=== PATIENT | female | born 1955 | race African-American/Black ===

== ENCOUNTER 2016-02-21 22:29 | Inpatient (IN) | payer OTHER ==
[~2016-02-21] VITALS: Ht 157.5 cm; Wt 109.5 kg
[~2016-02-21 22:29] MED LIST: ALBU1AER9 INH; ARFO15NE IN; ASPCH81X PO; AZIT250T5 PO; DICL1GEL28 TOP; FERR325T51 PO; FLNIN/ NAE; FLUT1INH7 PO; FURO-85 PO; HYDR-5688 PO; LOSA1TAB PO; NF656 TOP; OXGN; POTA-74 PO; PRAM1.5T8 PO; PRED10TA PO; TIOTCAP INH; ZOLP10TA PO
[2016-02-21] MEDS ORDERED: ALBUTEROL 0.083% NEBU SOLN 3 ML VIAL INH STA (22:45)
[2016-02-21 23:00] VITALS: PULSE 138; O2SAT 99
[2016-02-21 23:01] VITALS: PULSE 138; O2SAT 99
[2016-02-21] MEDS ORDERED: LEVAQUIN 750MG / 150ML D5W IV STA (23:21)
[2016-02-21] MEDS ORDERED: ALBUT/IPRATROP 3MG/0.5MG NEB 3 ML VIAL INH ONE (23:30)
[2016-02-21 23:44] LABS: BASO % 0.1 %; BASO ABS # 0.01 K/uL (0-0.2); COMPLETE YES; HEMATOCRIT 32.1 % (37-47); IG% 0.5 %; LYMPH % 23.9 %; LYMPH ABS # 2.06 K/uL (1.2-3.4); MEAN CELL VOLUME 90.7 fL (80-100); MEAN CORPUSCULAR HEMOGLOBIN 28.2 pg (25-34); MEAN CORPUSCULAR HGB CONC 31.2 g/dl (32-36); MEAN PLATELET VOLUME 9.1 fL (7.4-10.4); MONO % 15.8 %; NEUT % 59.7 %; PLATELET COUNT 367 K/uL (130-400); RED BLOOD COUNT 3.54 M/uL (4.2-5.4); WHITE BLOOD COUNT 8.62 K/uL (4.8-10.8)
[2016-02-21 23:46] LABS: INR 0.9 (0.9-1.1); PARTIAL THROMBOPLASTIN RATIO 0.9
[2016-02-21 23:55] LABS: ALT/SGPT 38 U/L (12-78); BLOOD UREA NITROGEN 16 mg/dl (7-18); CALCIUM 8.9 mg/dl (8.5-10.1); CARBON DIOXIDE 29 mmol/L (21-32); CHLORIDE 104 mmol/L (98-107); CREATININE 0.94 mg/dl (0.60-1.20); GLUCOSE 121 mg/dl (70-99); MAGNESIUM 2.8 mg/dl (1.8-2.4); POTASSIUM 3.8 mmol/L (3.5-5.1); SODIUM 144 mmol/L (136-145)
[2016-02-21 23:58] VITALS: PULSE 130; O2SAT 100
[2016-02-22] VITALS (26 sets, daily range): BP systolic 105–170; BP diastolic 76–97; PULSE 85–130; TEMP 36.4–36.8; O2SAT 93–100; Ht 157.5 cm; Wt 109.5 kg
[2016-02-22] LABS: ALB/GLOB RATIO 0.9 (0.9-2); ALKALINE PHOSPHATASE 80 U/L (45-117); AST/SGOT 22 U/L (15-37)
[2016-02-22 00:23] LABS: VEN BLD GAS O2 SATURATION 96.5 %; VEN BLOOD GAS BASE EXCESS 4.4 mmol/L; VENOUS BLOOD GAS PCO2 62 mmHg (38.0-50.0); VENOUS BLOOD GAS PO2 100 mmHg
[2016-02-22] MEDS ORDERED: CYCLOBENZAPRINE HCL 5 MG TAB PO SCH (00:30)
--- NOTE | 2016-02-22 01:49 | EMERGENCY ROOM VISIT NOTE ---
History Report prepared by Hiral: Luis Chen Under the Supervision of: Dr. Pedro Welch D.O. First contact with patient: 22:33 Chief Complaint: RESPIRATORY PROBLEMS Stated Complaint: ASTHMA ATTACK History of Present Illness The patient is a 60 year old female who presents to the Emergency Room in respiratory distress. She states that her breathing difficulty began three days ago and has been worsening. The patient was brought to the emergency department via EMS. EMS administered one DuoNeb, 3 Albuterol, 2 grams of Magnesium and 125 SoluMedrol prior to arrival. She has a history of asthma and COPD. She has also been experiencing a cough and runny nose as of lately. She is on 4 liters of oxygen at home. She usually only uses her oxygen while she sleeps, but she has been using it all day over the last three days. Source of History: patient Onset: 3 days [employer]LECT[employer]PECTING [employer] Position: other (Respiratory) Quality: other (Dyspnea ) Timing: worsening Associated Symptoms: + cough Note: Patient complains of runny nose. Review of Systems See HPI for pertinent positives & negatives. A total of 10 systems reviewed and were otherwise negative. Past Medical & Surgical Medical Problems: (1) Asthma (2) Asthma, Unspecified (3) Carpal tunnel syndrome (4) COPD (chronic obstructive pulmonary disease) (5) Depression (6) Diabetes mellitus (7) Esophageal Reflux (8) Hiatal hernia (9) History of cervical cancer (10) Hyperlipidemia (11) Hypertension (12) Intervertebral disc disorder (13) Obstructive Chronic Bronchitis With Acute Bronchitis (14) Osteoarthritis (15) Reflux esophagitis (16) Restless leg syndrome (17) Restless Legs Syndrome (18) Rheumatoid Arthritis (19) Tobacco Use Disorder Family History Diabetes mellitus FH: heart disease FH: lung disease FHx: cancer Hypertension Social History Smoking Status: Former Smoker Alcohol Use: none Drug Use: none Marital Status: single Housing Status: lives alone Occupation Status: disabled Current/Historical Medications Scheduled Amitriptyline HCl (Amitriptyline HCl), 10 MG PO HS Arformoterol Tartrate (Brovana), 15 MCG IN BID Aspirin (Aspirin Chewable), 81 MG PO DAILY Atorvastatin (Lipitor), 10 MG PO QAM Cyanocobalamin (Vitamin B12), 1,000 MCG PO DAILY Ferrous Sulfate (Iron Supplement), 325 MG PO QAM Fluticasone Furoate-Vilanterol (Breo Ellipta 200-25 Mcg/INH), 1 PUFF PO DAILY Gabapentin (Neurontin), 100 MG PO TID Losartan Potassium (Cozaar), 25 MG PO QAM Metformin Hcl (Glucophage), 1,000 MG PO BID Montelukast Sodium (Singulair), 10 MG PO QAM Oxygen (Oxygen), 2 LITERS NA HS Pantoprazole Sodium (Protonix), 40 MG PO QAM Pramipexole Dihydrochloride (Mirapex), 0.5 MG PO BID Ranitidine Hcl (Zantac), 300 MG PO HS Tiotropium [place] (Spiriva Handihaler), 1 CAP INH QAM Scheduled PRN Albuterol (Proair Hfa), 2 PUFF INH Q4H PRN for Wheezing Azithromycin (Zithromax), 1 PKT PO UD PRN for rescue kit Benzonatate (Tessalon Perles), 1-2 CAP PO TID PRN for Cough Cyclobenzaprine Hcl (Flexeril), 10 MG PO BID PRN for Muscle Spasms Fluticasone Propionate (Fluticasone Propionate), 2 SPRAYS LIDYA BID PRN for Nasal Congestion Furosemide (Lasix), 20 MG PO QAM PRN for fluid and wt gain Glimepiride (Amaryl), 0.5 TAB PO QAM PRN for while on prednisone Hydrocodone/Acetaminophen 5MG/325MG ([place] 5MG/325MG), 1 TABLET PO Q8 PRN for Moderate Pain Ipratropium-Albuterol (Duoneb), 1 TREATMENT INH Q4H PRN for SOB/Wheezing Potassium Chloride (Potassium Chloride Er), 1 TAB PO DAILY PRN for with lasix Pramipexole Dihydrochloride (Mirapex Er), 1-2 TABS PO HS PRN for RLS Prednisone (Prednisone), MG PO UD PRN for rescue kit Zolpidem Tartrate (Ambien), 10 MG PO HS PRN for Sleep Allergies Coded Allergies: No Known Allergies (Verified , 02/21/16) Physical Exam Vital Signs Date Time Temp Pulse Resp B/P Pulse Ox O2 Delivery O2 Flow Rate FiO2 02/22/16 00:30 134 19 124/103 100 BiPAP 50 02/21/16 23:58 130 24 100 BiPAP/CPAP 50 02/21/16 23:01 138 24 99 BiPAP/CPAP 50 02/21/16 23:00 138 99 50 02/21/16 22:49 98 CPAP 02/21/16 22:40 98 CPAP 02/21/16 22:39 36.9 137 26 175/102 98 CPAP 02/21/16 22:39 135 Physical Exam GENERAL: Sitting up in bed, significant distress. On C-pap. EYE EXAM: normal conjunctiva OROPHARYNX: no exudate, no erythema, lips, buccal mucosa, and tongue normal and mucous membranes are moist NECK: supple, no nuchal rigidity, no adenopathy, non-tender LUNGS: Minimal air movement with mild wheezing. Accessory muscle movement. HEART: no murmurs, S1 normal and S2 normal ABDOMEN: abdomen soft, non-tender, normo-active bowel sounds, no masses, no rebound or guarding. BACK: Back is symmetrical on inspection and there is no deformity, no midline tenderness, no CVA tenderness. SKIN: no rashes and no bruising UPPER EXTREMITIES: upper extremities are grossly normal. LOWER EXTREMITIES: No pitting edema. NEURO EXAM: Normal sensorium, cranial nerves II-XII intact, normal speech, no gross weakness of arms, no gross weakness of legs. Medical Decision & Procedures ER Provider Diagnostic Interpretation: Xray results per my interpretation: XRAY PORTABLE UPRIGHT ONE VIEW CHEST: No acute infiltrate, no pneumothorax. Laboratory Results 02/21/16 23:26 Red Blood Count 3.54, Mean Corpuscular Volume 90.7, Mean Corpuscular Hemoglobin 28.2, Mean Corpuscular Hemoglobin Concent 31.2, Mean Platelet Volume 9.1, Neutrophils (%) (Auto) 59.7, Lymphocytes (%) (Auto) 23.9, Monocytes (%) (Auto) 15.8, Eosinophils (%) (Auto) 0.0, Basophils (%) (Auto) 0.1, Neutrophils # (Auto ) 5.15, Lymphocytes # (Auto) 2.06, Monocytes # (Auto) 1.36, Eosinophils # (Auto ) 0.00, Basophils # (Auto) 0.01 02/21/16 23:26 Test 02/21/16 23:05 02/21/16 23:26 02/22/16 00:05 Influenza Type A Antigen Neg for Influ A (NEG) Influenza Type B Antigen Neg for Influ B (NEG) White Blood Count 8.62 K/uL (4.8-10.8) Red Blood Count 3.54 M/uL (4.2-5.4) Hemoglobin 10.0 g/dL (12.0-16.0) Hematocrit 32.1 % (37-47) Mean Corpuscular Volume 90.7 fL (80-100) Mean Corpuscular Hemoglobin 28.2 pg (25-34) Mean Corpuscular Hemoglobin Concent 31.2 g/dl (32-36) Platelet Count 367 K/uL (130-400) Mean Platelet Volume 9.1 fL (7.4-10.4) Neutrophils (%) (Auto) 59.7 % Lymphocytes (%) (Auto) 23.9 % Monocytes (%) (Auto) 15.8 % Eosinophils (%) (Auto) 0.0 % Basophils (%) (Auto) 0.1 % Neutrophils # (Auto) 5.15 K/uL (1.4-6.5) Lymphocytes # (Auto) 2.06 K/uL (1.2-3.4) Monocytes # (Auto) 1.36 K/uL (0.11-0.59) Eosinophils # (Auto) 0.00 K/uL (0-0.5) Basophils # (Auto) 0.01 K/uL (0-0.2) RDW Standard Deviation 48.3 fL (36.4-46.3) RDW Coefficient of Variation 14.6 % (11.5-14.5) Immature Granulocyte % (Auto) 0.5 % Immature Granulocyte # (Auto) 0.04 K/uL (0.00-0.02) Prothrombin Time 10.0 SECONDS (9.0-12.0) Prothromb Time International Ratio 0.9 (0.9-1.1) Activated Partial Thromboplast Time 24.1 SECONDS (21.0-31.0) Partial Thromboplastin Ratio 0.9 Anion Gap 11.0 mmol/L (3-11) Est Creatinine Clear Calc Drug Dose 76.6 ml/min Estimated GFR () 75.9 Estimated GFR (Non- 65.5 BUN/Creatinine Ratio 17.0 (10-20) Calcium Level 8.9 mg/dl (8.5-10.1) Magnesium Level 2.8 mg/dl (1.8-2.4) Total Bilirubin < 0.1 mg/dl (0.2-1) Aspartate Amino Transf (AST/SGOT) 22 U/L (15-37) Alanine Aminotransferase (ALT/SGPT) 38 U/L (12-78) Alkaline Phosphatase 80 U/L (45-117) Troponin I < 0.015 ng/ml (0-0.045) Pro-B-Type Natriuretic Peptide 31 pg/ml (0-900) Total Protein 7.1 gm/dl (6.4-8.2) Albumin 3.3 gm/dl (3.4-5.0) Globulin 3.8 gm/dl (2.5-4.0) Albumin/Globulin Ratio 0.9 (0.9-2) Venous Blood pH 7.33 (7.36-7.41) Venous Blood Partial Pressure CO2 62 mmHg (38.0-50.0) Venous Blood Partial Pressure O2 100 mmHg Venous Blood HCO3 32 mmol/L Venous Blood Oxygen Saturation 96.5 % Venous Blood Base Excess 4.4 mmol/L Laboratory results per my review. Medications Administered Medications (Trade) Dose Ordered Sig/Allison Route Start Time Stop Time Status Last Admin Dose Admin Albuterol Sulfate (Ventolin 0.083% 2.5MG/3ML Neb) 10 mg NOW STAT INH 02/21/16 22:45 02/21/16 22:47 DC 02/21/16 22:59 10 MG Levofloxacin (Levaquin / D5w) 750 mg NOW STAT IV 02/21/16 23:21 02/21/16 23:22 DC 02/21/16 23:38 750 MG Albuterol/ Ipratropium (Duoneb) 12 ml ONE ONCE INH 02/21/16 23:30 02/21/16 23:31 DC 02/21/16 23:58 12 ML Cyclobenzaprine HCl (Flexeril Tab) 10 mg NOW PO 02/22/16 00:30 03/23/16 00:29 02/22/16 00:28 10 MG ECG Indication: SOB/dyspnea Rate (beats per minute): 98 Rhythm: normal sinus Findings: other (Normal axis, poor baseline) ED Course ED COURSE: Vital signs were reviewed and showed Tachycardiac vitals The patients medical record was reviewed The above diagnostic studies were performed and reviewed. ED treatments and interventions as stated above. 2234: The patient was evaluated in room C9. A complete history and physical examination was performed. 2245: Ordered Albuterol Sulfate 10 mg INH. 2320: I reevaluated the patient at this time, she is feeling slightly better. 2321: Ordered Levofloxacin 750 mg IV. 2330: Ordered Duoneb 12 mL INH. 2335: I discussed the case with Dr. Chidi GARCIA, he will evaluate the patient for further treatment. 0018: I checked on the patient at this time, she is feeling better. She states that she needs her Flexeril. GI is at bedside. 0030: Ordered Cyclobenzaprine 10 mg PO. []: Upon reevaluation, the patient is [].I discussed my findings with the [ patient] and [] understands and agrees with the treatment plan. Based on the patients age, coexisting illnesses, exam and lab findings the decision to treat as an [inpatient][outpatient] was made. The patient remained stable while under my care. [The patient appeared well at the time of discharge.] [The patient will be evaluated for further management.] Medical Decision Differential diagnoses includes but is not limited to pneumonia, bronchitis, COPD/Asthma exacerbation, pneumothorax, pulmonary embolism, congestive heart failure, acute coronary syndrome Patient is a 60-year-old female that presents the ER via EMS in respiratory distress. She notes that she has had a cough and runny nose and shortness breath that has been worsening over the past 3-4 days. She is a past medical history of asthma and COPD. She has been taking steroids and her inhalers with minimal to no relief. No fevers. Upon presentation EMS she was placed on CPAP and given 1 DuoNeb and 2 albuterol treatments along with 125 of Solu-Medrol and 2 g magnesium. Upon presentation she was still in significant history distress using accessory muscles and unable to talk in full sentences while on CPAP. She was switched to BiPAP. She remained on BiPAP for over 3 hours. Heart rate was in the 130s. Pulse ox was 100% on BiPAP. She is given 2 additional hour long neb treatments. She is also given Levaquin. One hour long treatment was of albuterol the following was a DuoNeb. On reevaluation at 1:45 AM she had significant improvement and was much more relaxed. She was presyncopal Flexeril for cramps. EKG was nondiagnostic. Labs show a chronic anemia. BMP along with LFTs, bilirubin and troponin were unremarkable as well. He needs and was slightly elevated at 2.8. VBG showed a CO2 of 62. Influenza was negative. Patient was admitted to internal medicine for his COPD/asthma exacerbation as a full code. Consults Time Called: 2321 Consulting Physician: Dr. Chidi GARCIA Returned Call: [phone] I discussed the case with Dr. Chidi GARCIA, he will evaluate the patient for further treatment. Impression Primary Impression: COPD exacerbation Additional Impressions: Respiratory failure, Anemia, Asthma exacerbation Critical Care I have personally spent 125 minutes of critical care time in the direct management of this patient. This includes bedside care, interpretation of diagnostic studies, and testing, discussion with consultants, patient, and family members, and other required patient management activities. This 125 minutes is in excess of all separately billable procedures. Scribe Attestation The scribe's documentation has been prepared under my direction and personally reviewed by me in its entirety. I confirm that the note above accurately reflects all work, treatment, procedures, and medical decision making performed by me. Departure Information Dispostion Being Evaluated By Hospitalist Referrals Martina Jay M.D. (PCP) Patient Instructions A Signature Page, My [facility]
[2016-02-22] MEDS ORDERED: ACETAMINOPHEN 325 MG TAB PO PRN (02:15)
[2016-02-22] MEDS ORDERED: ONDANSETRON INJ 2 MG/ML 2 ML VIAL IV PRN (02:15)
[2016-02-22] MEDS ORDERED: FLUTICASONE PROPIONATE NA SPR 16 GM BTL NAE PRN (02:15)
[2016-02-22] MEDS ORDERED: LEVALBUTEROL/IPRATROPIUM NEB INH SCH (02:15)
[2016-02-22] MEDS ORDERED: GLUCOSE 10 TABS/TUBE PO PRN (02:15)
[2016-02-22] MEDS ORDERED: DEXTROSE 50% 50 ML SYR IV PRN (02:15)
[2016-02-22] MEDS ORDERED: GLUCAGON FOR INJ 1 MG VIAL SQ PRN (02:15)
[2016-02-22] MEDS ORDERED: GLUCOSE 40% GEL 15 GM TUBE PO PRN (02:15)
[2016-02-22] MEDS ORDERED: HYDROCODONE/ACETAMOPHEN 5/325MG TAB PO PRN (02:15)
[2016-02-22 02:30] LABS: ALLEN TEST POS (POS); ARTERIAL BLD GAS O2 SATURATION 99.2 % (90-95); ARTERIAL BLOOD GAS HCO3 29 mmol/L (19-24); ARTERIAL BLOOD GAS PO2 176 mm/Hg (80-95); ARTERIAL BLOOD GAS pH 7.36 (7.35-7.45); O2 ADMINISTRATION 40% BIPAP
[2016-02-22] MEDS ORDERED: LEVALBUTEROL/IPRATROPIUM NEB INH PRN (02:30)
[2016-02-22] MEDS ORDERED: PHARMACY GLYCEMIC MGMT CONSULT PRN (02:45)
[2016-02-22] MEDS: LEVALBUTEROL 1.25MG/0.5ML NEB INH SCH ×6 (03:51→23:19)
[2016-02-22] MEDS: IPRATROPIUM BROMIDE NEB SOLN 0.02% 2.5 ML VIAL INH SCH ×6 (03:51→23:19)
[2016-02-22] MEDS ORDERED: LEVALBUTEROL 1.25MG/0.5ML NEB INH PRN (04:00)
[2016-02-22] MEDS ORDERED: IPRATROPIUM BROMIDE NEB SOLN 0.02% 2.5 ML VIAL INH PRN (04:00)
[2016-02-22] MEDS: METHYLPREDNISOLONE IV 60 MG in SYRINGE 0 ML IV SCH ×3 (04:27→19:36)
[2016-02-22] MEDS: CYCLOBENZAPRINE HCL 5 MG TAB PO PRN ×2 (05:24→11:18)
[2016-02-22] MEDS ORDERED: BACLOFEN 10 MG TAB PO ONE (05:30)
[2016-02-22] MEDS ORDERED: PNEUMOCOCCAL ADMINISTRATION CHARGE ONE (06:30)
[2016-02-22] MEDS ORDERED: PNEUMOCOCCAL POLYSACCHARIDES 25 MCG/0.5 ML VIAL/SYR IM. ONE (06:30)
--- NOTE | 2016-02-22 07:41 | DIAGNOSTIC IMAGING REPORT ---
SINGLE VIEW CHEST CLINICAL HISTORY: Dyspnea. FINDINGS: 2 AP, portable, upright chest radiographs are compared to study dated 12/28/2015. Correlation is made with chest CT dated 12/11/2013. The cardiomediastinal silhouette is unremarkable. There is atherosclerotic calcification of the thoracic aorta. The examination is degraded by portable technique and patient rotation. Advanced emphysema and chronic interstitial thickening are similar to previous. No superimposed airspace consolidation or pleural effusion is identified. No pneumothorax is seen. The skeletal structures are osteopenic. The bony thorax is grossly intact. IMPRESSION: Severe emphysema with no acute cardiopulmonary abnormality. Electronically signed by: Navin Fletcher M.D. 02/22/2016 7:39 AM
[2016-02-22] MEDS ORDERED: ARFORMOTEROL TART 15MCG/2ML VIAL INH SCH (08:00)
[2016-02-22 08:15] LABS: INFLUENZA A PCR Neg for Influ A (NEG); INFLUENZA B PCR Neg for Influ B (NEG)
--- NOTE | 2016-02-22 08:33 | History and Physical ---
History & Physical Date & Time of Service: Feb 22, 2016 at 08:24 Chief Complaint: Copd Exacerbation Primary Care Physician: Martina Jay M.D. History of Present Illness Source: patient, clinic records, hospital records 60 year old female with history of COPD< DM, HTN other problems noted below presenting with increasing shortness of breath. Follows with Dr. Jay for Primary Care. Patient was seen on 02/03/16 at PCP office for COPD exacerbation, and prescribed a course of Augmentin and Prednisone, which patient finished. 2 days ago, patient again started to have progressive shortness of breath, productive cough and was prescribed antibiotics and Prednisone, without relief. On the evening of admission, patient's dyspnea progressed, EMS called, placed on Bipap and given Solumedrol, Nebs. At the ER, CXR did not reveal pneumonia. On my exam, patient seen sitting up in bed, BIpap mask on, appears comfortable overall, speaking in sentences with very minimal effort. States she feels improved compared to arrival. No active chest pain, palpitations, dyspnea, dizziness, headache. Past Medical/Surgical History Medical Problems: (1) Asthma Status: Chronic (2) Carpal tunnel syndrome Status: Chronic (3) COPD (chronic obstructive pulmonary disease) Status: Chronic (4) Depression Status: Chronic (5) Diabetes mellitus Status: Chronic (6) Hiatal hernia Status: Chronic (7) History of cervical cancer Permanent Comment: s/p laser Status: Chronic (8) Hyperlipidemia Status: Chronic (9) Hypertension Status: Chronic (10) Intervertebral disc disorder Permanent Comment: C5-C6 Status: Chronic (11) Osteoarthritis Status: Chronic (12) Reflux esophagitis Status: Chronic (13) Restless leg syndrome Status: Chronic Family History Diabetes mellitus FH: heart disease FH: lung disease FHx: cancer Hypertension Social History Smoking Status: Former Smoker Drug Use: none Marital Status: single Housing status: lives with family Occupational Status: disabled Immunizations History of Influenza Vaccine: Yes Influenza Vaccine Date: Nov 27, 2010 History of Tetanus Vaccine?: No History of Pneumococcal: Yes Pneumococcal Date: Mar 16, 2009 History of Hepatitis B Vaccine: No Multi-Drug Resistant Organisms History of MDRO: No Allergies Coded Allergies: No Known Allergies (Verified , 02/21/16) Home Medications Scheduled Amitriptyline HCl (Amitriptyline HCl), 10 MG PO HS Arformoterol Tartrate (Brovana), 15 MCG IN BID Aspirin (Aspirin Chewable), 81 MG PO DAILY Atorvastatin (Lipitor), 10 MG PO QAM Cyanocobalamin (Vitamin B12), 1,000 MCG PO DAILY Ferrous Sulfate (Iron Supplement), 325 MG PO QAM Fluticasone Furoate-Vilanterol (Breo Ellipta 200-25 Mcg/INH), 1 PUFF PO DAILY Gabapentin (Neurontin), 100 MG PO TID Losartan Potassium (Cozaar), 25 MG PO QAM Metformin Hcl (Glucophage), 1,000 MG PO BID Montelukast Sodium (Singulair), 10 MG PO QAM Oxygen (Oxygen), 2 LITERS NA HS Pantoprazole Sodium (Protonix), 40 MG PO QAM Pramipexole Dihydrochloride (Mirapex), 0.5 MG PO BID Ranitidine Hcl (Zantac), 300 MG PO HS Tiotropium [place] (Spiriva Handihaler), 1 CAP INH QAM Scheduled PRN Albuterol (Proair Hfa), 2 PUFF INH Q4H PRN for Wheezing Azithromycin (Zithromax), 1 PKT PO UD PRN for rescue kit Benzonatate (Tessalon Perles), 1-2 CAP PO TID PRN for Cough Cyclobenzaprine Hcl (Flexeril), 10 MG PO BID PRN for Muscle Spasms Fluticasone Propionate (Fluticasone Propionate), 2 SPRAYS LIDYA BID PRN for Nasal Congestion Furosemide (Lasix), 20 MG PO QAM PRN for fluid and wt gain Glimepiride (Amaryl), 0.5 TAB PO QAM PRN for while on prednisone Hydrocodone/Acetaminophen 5MG/325MG ([place] 5MG/325MG), 1 TABLET PO Q8 PRN for Moderate Pain Ipratropium-Albuterol (Duoneb), 1 TREATMENT INH Q4H PRN for SOB/Wheezing Potassium Chloride (Potassium Chloride Er), 1 TAB PO DAILY PRN for with lasix Pramipexole Dihydrochloride (Mirapex Er), 1-2 TABS PO HS PRN for RLS Prednisone (Prednisone), MG PO UD PRN for rescue kit Zolpidem Tartrate (Ambien), 10 MG PO HS PRN for Sleep Review of Systems Constitutional- no fever; no weight loss Eyes- no acute visual changes ENT- no sinus drainage; no pharyngitis Pulmonary-(+) as noted above Cardiac- no chest pain, no palpitations, no orthopnea, no dependent edema GI- no nausea, no vomiting, no diarrhea, no melena, no hematochezia - no dysuria, no hematuria Musculoskeletal- no arthralgias, no myalgias Derm- no rashes, no new skin lesions, no changing skin lesions Hematologic- no unusual bruising, no unusual bleeding Lymphatics- no adenopathy Endocrine- no polyuria or polydipsia; no heat or cold intolerance Neuro- no headaches, no focal neurologic symptoms Psych- no anxiety, no depression Physical Exam Vital Signs Date Time Temp Pulse Resp B/P Pulse Ox O2 Delivery O2 Flow Rate FiO2 02/22/16 07:21 119 18 98 BiPAP/CPAP 40 02/22/16 07:11 119 98 40 02/22/16 07:03 36.5 110 18 142/76 97 BiPAP 02/22/16 03:53 124 98 40 02/22/16 03:52 124 18 98 BiPAP/CPAP 40 02/22/16 03:15 36.4 121 24 170/97 96 CPAP 02/22/16 02:54 130 18 147/107 97 02/22/16 02:30 130 18 147/107 97 BiPAP 40 02/22/16 02:28 129 02/22/16 02:15 130 100 40 02/22/16 00:30 134 19 124/103 100 BiPAP 50 02/21/16 23:58 130 24 100 BiPAP/CPAP 50 02/21/16 23:01 138 24 99 BiPAP/CPAP 50 02/21/16 23:00 138 99 50 02/21/16 22:49 98 CPAP 02/21/16 22:40 98 CPAP 02/21/16 22:39 36.9 137 26 175/102 98 CPAP 02/21/16 22:39 135 General Appearance: WD/WN, no apparent distress Head: normocephalic, atraumatic Eyes: normal inspection, PERRL, EOMI, sclerae normal ENT: normal ENT inspection, hearing grossly normal, pharynx normal Neck: supple, no adenopathy, thyroid normal, no JVD, trachea midline Respiratory/Chest: chest non-tender, no respiratory distress, + wheezing ( bilaterally) Cardiovascular: no JVD, + tachycardia Abdomen/GI: normal bowel sounds, non tender, soft Back: normal inspection, no CVA tenderness Extremities/Musculoskelatal: no calf tenderness, normal range of motion, + swelling (trace lower leg edema) Neurologic/Psych: rn interventional II-XII nml as tested, no motor/sensory deficits, alert, normal mood/affect, normal reflexes, oriented x 3 Skin: normal color, warm/dry, no rash Lymphatic: no adenopathy Diagnostics Laboratory Results Results Past 24 Hours Test 02/21/16 23:05 02/21/16 23:26 02/22/16 00:05 02/22/16 02:23 Range/Units Influenza Type A Antigen Neg for Influ A NEG Influenza Type B Antigen Neg for Influ B NEG White Blood Count 8.62 4.8-10.8 K/uL Red Blood Count 3.54 4.2-5.4 M/uL Hemoglobin 10.0 12.0-16.0 g/dL Hematocrit 32.1 37-47 % Mean Corpuscular Volume 90.7 80-100 fL Mean Corpuscular Hemoglobin 28.2 25-34 pg Mean Corpuscular Hemoglobin Concent 31.2 32-36 g/dl Platelet Count 367 130-400 K/uL Mean Platelet Volume 9.1 7.4-10.4 fL Neutrophils (%) (Auto) 59.7 % Lymphocytes (%) (Auto) 23.9 % Monocytes (%) (Auto) 15.8 % Eosinophils (%) (Auto) 0.0 % Basophils (%) (Auto) 0.1 % Neutrophils # (Auto) 5.15 1.4-6.5 K/uL Lymphocytes # (Auto) 2.06 1.2-3.4 K/uL Monocytes # (Auto) 1.36 0.11-0.59 K/uL Eosinophils # (Auto) 0.00 0-0.5 K/uL Basophils # (Auto) 0.01 0-0.2 K/uL RDW Standard Deviation 48.3 36.4-46.3 fL RDW Coefficient of Variation 14.6 11.5-14.5 % Immature Granulocyte % (Auto) 0.5 % Immature Granulocyte # (Auto) 0.04 0.00-0.02 K/uL Prothrombin Time 10.0 9.0-12.0 SECONDS Prothromb Time International Ratio 0.9 0.9-1.1 Activated Partial Thromboplast Time 24.1 21.0-31.0 SECONDS Partial Thromboplastin Ratio 0.9 Sodium Level 144 136-145 mmol/L Potassium Level 3.8 3.5-5.1 mmol/L Chloride Level 104 98-107 mmol/L Carbon Dioxide Level 29 21-32 mmol/L Anion Gap 11.0 3-11 mmol/L Blood Urea Nitrogen 16 7-18 mg/dl Creatinine 0.94 0.60-1.20 mg/dl Est Creatinine Clear Calc Drug Dose 76.6 ml/min Estimated GFR () 75.9 Estimated GFR (Non- 65.5 BUN/Creatinine Ratio 17.0 10-20 Random Glucose 121 70-99 mg/dl Calcium Level 8.9 8.5-10.1 mg/dl Magnesium Level 2.8 1.8-2.4 mg/dl Total Bilirubin < 0.1 0.2-1 mg/dl Aspartate Amino Transf (AST/SGOT) 22 15-37 U/L Alanine Aminotransferase (ALT/SGPT) 38 12-78 U/L Alkaline Phosphatase 80 45-117 U/L Troponin I < 0.015 0-0.045 ng/ml Pro-B-Type Natriuretic Peptide 31 0-900 pg/ml Total Protein 7.1 6.4-8.2 gm/dl Albumin 3.3 3.4-5.0 gm/dl Globulin 3.8 2.5-4.0 gm/dl Albumin/Globulin Ratio 0.9 0.9-2 Venous Blood pH 7.33 7.36-7.41 Venous Blood Partial Pressure CO2 62 38.0-50.0 mmHg Venous Blood Partial Pressure O2 100 mmHg Venous Blood HCO3 32 mmol/L Venous Blood Oxygen Saturation 96.5 % Venous Blood Base Excess 4.4 mmol/L Arterial Blood pH 7.36 7.35-7.45 Arterial Blood Partial Pressure CO2 53 35-46 mmHg Arterial Blood Partial Pressure O2 176 80-95 mm/Hg Arterial Blood HCO3 29 19-24 mmol/L Arterial Blood Oxygen Saturation 99.2 90-95 % Arterial Blood Base Excess 3.0 -9-1.8 mEq/L Arterial Blood Gas Delivery 40% BIPAP Ziyad Test POS POS Test 02/22/16 06:35 02/22/16 07:38 Range/Units Influenza Type A (RT-PCR) Neg for Influ A NEG Influenza Type B (RT-PCR) Neg for Influ B NEG Bedside Glucose 202 70-90 mg/dl Diagnostic Radiology CXR IMPRESSION: Severe emphysema with no acute cardiopulmonary abnormality. EKG sinus tachycardia Impression Assessment and Plan 60 year old female with history of COPD, DM, HTN other problems noted below presenting with increasing shortness of breath. ACUTE COPD EXACERBATION likely from Acute Bronchitis check Flu PCR Solumedrol, Nebs, Levaquin DM TYPE 2 ISS Pharmacy consulted HYPERTENSION continue Losartan, Aspirin GERD PPI NOCTURNAL HYPOXIA 02 at HS DVT prophylaxis SCDs Disposition pending anticipate d/c home when stable Advanced Directives Existing Advance Directive: Yes Existing Living Will: Yes Existing Power of Full Fashioned Garment Knitter: Yes VTE Prophylaxis VTE Risk Assessment Done? Y/N: Yes Risk Level: Moderate
[2016-02-22] MEDS: ASPIRIN 81 MG ECTAB PO SCH (08:48)
[2016-02-22] MEDS: GABAPENTIN 100 MG CAP PO SCH ×3 (08:48→20:55)
[2016-02-22] MEDS: ATORVASTATIN 10 MG TAB PO SCH (08:48)
[2016-02-22] MEDS: PRAMIPEXOLE DIHYDROCHLORIDE 0.5 MG TAB PO SCH ×3 (08:48→20:55)
[2016-02-22] MEDS: MONTELUKAST SOD 10 MG TAB PO SCH (08:48)
[2016-02-22] MEDS: LOSARTAN POTASSIUM 25 MG TAB PO SCH (08:49)
[2016-02-22] MEDS: PANTOprazole SOD 40 MG TAB PO SCH (08:49)
[2016-02-22] MEDS: INSULIN ASPART 100 UNITS/ML 3 ML PEN SC SCH ×4 (08:52→20:56)
[2016-02-22] MEDS ORDERED: LANTUS PER UNIT CHARGE SQ ONE (09:00)
--- NOTE | 2016-02-22 09:22 | Pharmacy Progress Note ---
Glycemic Control Intl Consult Date of Service Feb 22, 2016. Scope Glycemic Pharmacist consulted by Dr Murillo on 02/22/16 for glycemic control and to write orders per [facility] inpatient glycemic control protocol Objective Weight (Kilograms): 114.400 Accuchecks BSG (last 24hrs): Test 02/21/16 23:26 02/22/16 07:38 Random Glucose 121 mg/dl (70-99) Bedside Glucose 202 mg/dl (70-90) Laboratory Data (last 24hrs) Test 02/21/16 23:26 Anion Gap 11.0 mmol/L BUN/Creatinine Ratio 17.0 Blood Urea Nitrogen 16 mg/dl Creatinine 0.94 mg/dl Potassium Level 3.8 mmol/L Sodium Level 144 mmol/L White Blood Count 8.62 K/uL Red Blood Count 3.54 M/uL Hemoglobin 10.0 g/dL Hematocrit 32.1 % Mean Corpuscular Volume 90.7 fL Mean Corpuscular Hemoglobin 28.2 pg Mean Corpuscular Hemoglobin Concent 31.2 g/dl Platelet Count 367 K/uL Mean Platelet Volume 9.1 fL Neutrophils (%) (Auto) 59.7 % Lymphocytes (%) (Auto) 23.9 % Monocytes (%) (Auto) 15.8 % Eosinophils (%) (Auto) 0.0 % Basophils (%) (Auto) 0.1 % Neutrophils # (Auto) 5.15 K/uL Lymphocytes # (Auto) 2.06 K/uL Monocytes # (Auto) 1.36 K/uL Eosinophils # (Auto) 0.00 K/uL Basophils # (Auto) 0.01 K/uL Recent Pertinent Medications Outpatient Anti-diabetic Regimen: * Glimepiride 0.5mg PO Q AM * Metformin 1000mg PO BID * A1c = 6.9 % 04/02/15 The patient is currently receiving: * Basal insulin: None * Correctional Insulin: Novolog Correction per scale ACHS Goal Range: Low 140 mg/dL - High 180 mg/dL Correction Factor: 25 mg/dL/unit * Prandial insulin: Per carb ratio of 1 unit per 15 grams CHO consumed * Oral Agents: None currently Risk Factors for Insulin Resistance: * Steroids: Solu-Medrol 60mg IV Q 8 hours * Infection: COPD exac failing out-pt Augmentin; receiving Levofloxacin IV * Diet: ordered T2DM / AHA diet * Mechanical Ventilation: No; currently on BIPAP/CPAP w/ FiO2 40% - sat well Assessment & Plan ASSESSMENT: * Type 2 diabetic admitted w/ COPD exacerbation failing treatment w/ outpt abx and prednisone. * She is treated w/ 2 oral hypoglycemics - that are currently on hold; and should remain on hold as she is now receiving high dose IV corticosteroids. Will use SQ basal/bolus regimen to achieve glycemic targets. * She has been admitted in the past and received SQ Novolog (CF + CR) alone to control hyperglycemia while on IV steroids; she was not given basal insulin or her oral hypoglycemics. Her current fasting BSG is 202; so I am inclined to give a single small dose of Lantus this AM and reevaluate basal needs tomorrow AM. Perhaps she is more stressed this admission and may require some basal insulin. * The current Novolog CF and CR are reasonable, however the CR dose could be increased a little. * Most recent A1c is from 03/2015; will check w/ AM labs tomorrow to determine appropriateness of outpt regimen PLAN FOR INPATIENT GLYCEMIC CONTROL: * Check A1c w/ AM labs tomorrow * Holding outpatient oral diabetes medications * Give Lantus 8 units SQ x 1 only; reevaluate basal need tomorrow - she may not require basal insulin based upon prior admissions (even w/ steroids) * Continuing correction factor of 25 mg/dl/unit * Changing carb ratio to 1 unit per 10 grams CHO consumed * Changing goal range to Low 120 mg/dL - High 160 mg/dL * Reevaluate insulin doses with each step down in steroid dose * Please note that the plan above was derived based on current level of insulin resistance and hospital stress. These recommendations are appropriate for inpatient admission only. Plan of care upon discharge will need to be reassessed to avoid potential outpatient hypo/hyperglycemia. Thank you.
--- NOTE | 2016-02-22 11:22 | PULMONARY CONSULTATION ---
DATE OF CONSULTATION: 02/22/2016 This patient is a pleasant 60-year-old female who is followed by Dr. Jay for COPD and is followed by Trista Ireland PA-C for chronic obstructive lung disease as an outpatient. She was admitted through the Emergency Room with what appears to be exacerbation of chronic obstructive lung disease. Dr. Murillo has asked me to evaluate the patient from a pulmonary standpoint. She carries a history of rather severe chronic obstructive lung disease. She has been hospitalized here with respiratory failure in March of this year. At that time, at the time of admission on the 02 of April had blood gases that revealed a pH 7.34, pCO2 of 59, pO2 of 174. She has been actually fairly stable, although she did have an evaluation in the Emergency Room for shortness of breath on May 25 with COPD with exacerbation on the 27 of December. At that time, her chest x-ray actually was fairly stable with some hazy densities, probably related to her body habitus. Blood gas at that time revealed pH 7.36, pCO2 of 49, pO2 of 90. PRP looked good with a CO2 of 30, glucose is 118. TSH was normal at that time. About 2 weeks ago, she was exposed to her sister who had an illness with a cough, runny nose and a sore throat. The patient developed the same and was seen by Dr. Jay, placed on some steroids. She states she got a bit better and then developed worsening shortness of breath with cough which was nonproductive. She presented to the Emergency Room then with respiratory distress and difficulty with breathing for about 3 days with a nonproductive cough. She was unable to go out shopping, had difficulty with even sleeping. She called EMS, they gave her a DuoNeb, 2 grams of magnesium, 125 mg of Solu-Medrol prior to arrival to the Emergency Room. She states she does feel better today. She was placed on BiPAP last night. She wears oxygen at 1-1/2 to 2 liters at home. That is what she told me. According to the records, she may be on 4 liters of oxygen at home. Prior to this illness, she has been able to get out and go shopping and do her chores at home without too much difficulty. She has not had any significant exposures or travel history and environmental histories have been unremarkable. Since her admission, she has been treated with steroids, magnesium, oxygen, BiPAP and DuoNeb and states she feels about 40% better. PAST MEDICAL HISTORY: Significant for chronic obstructive lung disease. It appears that she probably has significant emphysema. She carries a history of obesity, diabetes mellitus, GERD and states that reflux has been under fairly good control with Zantac, although over the last 24 hours she states it is a bit worse. She carries a history of carcinoma of the cervix, hypertension, hyperlipidemia, chronic back pain, restless leg syndrome, rheumatoid arthritis. SOCIAL HISTORY: She started smoking at about age 14, quit 2 years ago. Smoked about a pack every 2 days, which gives her about a [id number] history of cigarette smoking. She is not an alcohol user. She is single, lives alone and is disabled from her disease, particularly the obesity and chronic obstructive lung disease. ALLERGIES: None. FAMILY HISTORY: Unknown. PHYSICAL EXAMINATION: VITAL SIGNS: In the Emergency Room, she had a bit of hypertension as well. Blood pressure 170/97 at 0315 hours today. She is tachycardic with a pulse of 138, respiratory rate was 24, it is now down to 18 on BiPAP, and she is afebrile. Oxygen saturation 98% on 40% FIO2 with BiPAP. Weight is 114.4 kilograms. She was 112 kilograms on April 05 of this year during that hospitalization for respiratory failure as well. HEENT: Unremarkable, except she has a very large tongue, small posterior pharynx with no evidence of thrush. Mandibular exam unremarkable. NECK: There is no neck vein distention or HJR. Thyroid nonpalpable. Carotid upstroke looks good. Expansion of the thorax is very good with deep inspiration. HEART: Regular rate and rhythm. Heart sounds are distant. I do not detect any murmurs. LUNGS: Reveal some coarse breath sounds bilaterally with some wheezing right at the end of expiration, especially worse with forced expiration. ABDOMEN: Soft and massively obese, nontender. She has no cyanosis, clubbing or edema. There is no evidence of DVT. White count 8.6, H\T\H 10 and 32%, with platelet count 367,000 with an unremarkable differential. PRP looked good with a glucose of 121. Liver function studies were normal. Troponin and BNP are unremarkable. Coagulation profile was normal. Influenza A and B were negative. The PCRs are pending. Blood gas revealed pH 7.33, pCO2 of 62, pO2 of 100. Repeat blood gas 2 hours later this morning at 0223 hours revealed pH 7.36, pCO2 of 53, pO2 of 176. The chest x-ray report is pending. The film was very light. The bases show no significant abnormalities. No pneumothorax is noted. There is an increase in vascular markings. I really do not see any infiltrates on just a plain PA film. IMPRESSION: 1. Chronic obstructive lung disease with exacerbation. She has respiratory failure with hypercapnia again. This may be worse with the oxygen administration. As the O2 is increased, she develops worsening shunt and hypercapnia. She is not lethargic from the hypercapnia. That has improved with BiPAP. 2. Massive obesity. 3. Diabetes mellitus. RECOMMENDATIONS: 1. Continue with her present medications. I do not see any evidence of infection. She may not need the Levaquin. That may be able to be discontinued in 24 hours. 2. I would add on Protonix 40 mg daily to the Zantac 300 mg at bedtime to ensure good control of reflux. That is on board now and would continue that as an outpatient. 3. I would continue on the Brovana b.i.d., methylprednisolone 60 mg IV q. 8 hours. Will follow the sugars carefully. Xopenex with ipratropium bromide could be given by nebulizer 4 times a day and then q. 4 hours p.r.n., rather than just p.r.n. I am not sure whether the Singulair is making much of a difference, but we can keep that on board for now since she is not having any trouble with it. I think if she does not improve the Brovana should be discontinued and I would place her on Symbicort 160/4.5 two puffs b.i.d. I would also recommend checking an echocardiogram to assess left and right ventricular functions. Dietary evaluation for weight reduction will be helpful. SCDs and subcutaneous heparin for DVT prophylaxis will be recommended as well. Thanks for asking me to evaluate Ms. Kaminski and I will be glad to follow along with you during her hospital stay.
[2016-02-22] MEDS ORDERED: NURSING VERBAL MED ORDER ONE (13:00)
[2016-02-22] MEDS ORDERED: COUGH DROP (SUGAR FREE) LOZ 24 LOZ/1 BOX ONE (13:07)
[2016-02-22] MEDS ORDERED: COUGH DROP (SUGAR FREE) LOZ 24 LOZ/1 BOX PO PRN (13:30)
[2016-02-22 15:24] LABS: ALLEN TEST POS (POS); ARTERIAL BLD GAS O2 SATURATION 99.3 % (90-95); ARTERIAL BLOOD GAS BASE EXCESS 6.6 mEq/L (-9-1.8); ARTERIAL BLOOD GAS HCO3 32 mmol/L (19-24); ARTERIAL BLOOD GAS PO2 187 mm/Hg (80-95); ARTERIAL BLOOD GAS pH 7.42 (7.35-7.45); O2 ADMINISTRATION 40%
--- NOTE | 2016-02-22 16:20 | Critical Care Consultation ---
Critical Care Consultation Date of Consultation: Feb 22, 2016. Attending Physician: Ector Easton MD Reason for Consultation: Acute respiratory distress History of Present Illness Attending: Dr. Flores This is a 60-year-old female who presents with shortness of breath and history of asthma. Patient was diagnosed with asthma in 1994. PFT results FVC: 2.43/94%, FEV1: 1.33/66%, FEV1/FVC: 68%, FEF 25-75%: 27%. No post GANESH change. Patient also has a history of severe COPD per Gold criteria which was diagnosed in 2012. She has a 0.3 PPD 32 years and states that she quit smoking. She was noted have a pulmonary nodule which was 2 mm and left apex which is stable on CT from 05/2000 in 11/2013. The patient does have nocturnal hypoxemia and is on supplemental oxygen at 2 L/m since 06/20/12. She has undergone allergy skin testing 2013 which was negative. She initially began having allergy exacerbation with asthma 20 years ago after moving here from [facility]. Asthmatic triggers include cold air, heat, humidity, and pollen. She has been admitted several times for asthma exacerbation but never for asthma asthmaticus and has never been endotracheally intubated. She reports that she takes all of her medications as prescribed. Pulmonary consult was placed and the patient was seen by Dr. Younger this morning. The patient currently states that she is extremely short of breath and she does have accessory muscle use. She has no chest pain or tightness. She denies fever but she is diaphoretic. She has no nausea or vomiting. She has had no diarrhea but has had a bowel movement today. Appetite is decreased. She has no pleuritic pain. She has no unusual lower extremity edema. She does have a cough but denies purulence or hemoptysis. She has no difficulty with dysphagia or odynophagia. She does have a history of GERD which is well controlled. Aside from her shortness of breath, wheezes and diaphoresis the patient has no acute complaints at this time. Past Medical/Surgical History PAST MEDICAL HISTORY: Asthma COPD GERD Allergic rhinitis Carpal tunnel syndrome Depressive disorder Diabetes mellitus type 2 Lumbar disc disorder Chronic edema Hyperlipidemia Osteoarthrosis Nocturnal hypoxemia Pulmonary emphysema Restless leg syndrome Seborrheic keratosis History of tobacco abuse Morbid obesity Cataracts PAST SURGICAL HISTORY: Cataract removal with lens prosthesis of the left cornea History of colonoscopy Family History Diabetes mellitus FH: heart disease FH: lung disease FHx: cancer Hypertension Social History Smoking Status: Former Smoker Smokeless Tobacco Use: No Drug Use: none Marital Status: single Housing Status: lives alone Occupation Status: disabled Allergies Coded Allergies: No Known Allergies (Verified , 02/21/16) Home Medications Scheduled Amitriptyline HCl (Amitriptyline HCl), 10 MG PO HS Arformoterol Tartrate (Brovana), 15 MCG IN BID Aspirin (Aspirin Chewable), 81 MG PO DAILY Atorvastatin (Lipitor), 10 MG PO QAM Cyanocobalamin (Vitamin B12), 1,000 MCG PO DAILY Ferrous Sulfate (Iron Supplement), 325 MG PO QAM Fluticasone Furoate-Vilanterol (Breo Ellipta 200-25 Mcg/INH), 1 PUFF PO DAILY Gabapentin (Neurontin), 100 MG PO TID Losartan Potassium (Cozaar), 25 MG PO QAM Metformin Hcl (Glucophage), 1,000 MG PO BID Montelukast Sodium (Singulair), 10 MG PO QAM Oxygen (Oxygen), 2 LITERS NA HS Pantoprazole Sodium (Protonix), 40 MG PO QAM Pramipexole Dihydrochloride (Mirapex), 0.5 MG PO BID Ranitidine Hcl (Zantac), 300 MG PO HS Tiotropium [place] (Spiriva Handihaler), 1 CAP INH QAM Scheduled PRN Albuterol (Proair Hfa), 2 PUFF INH Q4H PRN for Wheezing Azithromycin (Zithromax), 1 PKT PO UD PRN for rescue kit Benzonatate (Tessalon Perles), 1-2 CAP PO TID PRN for Cough Cyclobenzaprine Hcl (Flexeril), 10 MG PO BID PRN for Muscle Spasms Fluticasone Propionate (Fluticasone Propionate), 2 SPRAYS LIDYA BID PRN for Nasal Congestion Furosemide (Lasix), 20 MG PO QAM PRN for fluid and wt gain Glimepiride (Amaryl), 0.5 TAB PO QAM PRN for while on prednisone Hydrocodone/Acetaminophen 5MG/325MG ([place] 5MG/325MG), 1 TABLET PO Q8 PRN for Moderate Pain Ipratropium-Albuterol (Duoneb), 1 TREATMENT INH Q4H PRN for SOB/Wheezing Potassium Chloride (Potassium Chloride Er), 1 TAB PO DAILY PRN for with lasix Pramipexole Dihydrochloride (Mirapex Er), 1-2 TABS PO HS PRN for RLS Prednisone (Prednisone), MG PO UD PRN for rescue kit Zolpidem Tartrate (Ambien), 10 MG PO HS PRN for Sleep Current Inpatient Medications Current Inpatient Medications Medications (Trade) Dose Ordered Sig/Allison Route Start Time Stop Time Status Last Admin Dose Admin Acetaminophen (Tylenol Tab) 650 mg Q4H PRN PO 02/22/16 02:15 03/23/16 02:14 Ondansetron HCl 4 mg 4 mg Q6H PRN IV 02/22/16 02:15 03/23/16 02:14 Methylprednisolone Sodium Succinate 60 mg/Syringe 0.96 ml @ 1.5 mls/min Q8H IV 02/22/16 04:00 03/23/16 03:59 02/22/16 12:05 1.5 MLS/MIN Levofloxacin/Prmx (Levaquin / D5W/ Premixed D5W) 100 ml @ 100 mls/hr Q24H IV 02/22/16 22:00 03/03/16 21:59 Insulin Aspart (novoLOG ASPART) SLIDING SCALE If C... ACHS SC 02/22/16 06:30 03/23/16 06:59 02/22/16 12:10 4 UNITS Glucose (Glucose 40% Gel) 15-30 GRAMS 15 GRAMS... UD PRN PO 02/22/16 02:15 03/23/16 02:14 Glucose (Glucose Chew Tab) 4-8 Tablets 4 Tabl... UD PRN PO 02/22/16 02:15 03/23/16 02:14 Dextrose (Dextrose 50% 50ML Syringe) 25-50ML OF 50% DW IV FOR... UD PRN IV 02/22/16 02:15 03/23/16 02:14 Glucagon (Glucagon Inj) 1 mg UD PRN SQ 02/22/16 02:15 03/23/16 02:14 Miscellaneous Information (Consult Glycemic Management Pharmacy) 1 ea UD PRN N/A 02/22/16 02:45 03/23/16 02:44 Amitriptyline HCl (Elavil Tab) 10 mg HS PO 02/22/16 21:00 03/23/16 20:59 Arformoterol Tartrate (Brovana 15MCG/ 2ML Neb Soln) 15 mcg BIDR INH 02/22/16 08:00 03/23/16 07:59 02/22/16 07:12 15 MCG Aspirin (Ecotrin Tab) 81 mg QAM PO 02/22/16 09:00 03/23/16 08:59 02/22/16 08:48 81 MG Atorvastatin Calcium (Lipitor Tab) 10 mg QAM PO 02/22/16 09:00 03/23/16 08:59 02/22/16 08:48 10 MG Fluticasone Propionate (Flonase Nasal [place]) 2 sprays BID PRN LIDYA 02/22/16 02:15 03/23/16 02:14 Gabapentin (Neurontin Cap) 100 mg TID PO 02/22/16 09:00 03/23/16 08:59 02/22/16 08:48 100 MG Acetaminophen/ Hydrocodone Bitart ([place] 5/325 Tab) 1 tab Q8 PRN PO 02/22/16 02:15 03/07/16 02:14 Losartan Potassium (coZAAR TAB) 25 mg QAM PO 02/22/16 09:00 03/23/16 08:59 02/22/16 08:49 25 MG Montelukast Sodium (Singulair Tab) 10 mg QAM PO 02/22/16 09:00 03/23/16 08:59 02/22/16 08:48 10 MG Pantoprazole Sodium (Protonix Tab) 40 mg QAM PO 02/22/16 09:00 03/23/16 08:59 02/22/16 08:49 40 MG Pramipexole Dihydrochloride (miraPEX TAB) 0.5 mg BID PO 02/22/16 09:00 03/23/16 08:59 Ranitidine HCl (zANTac TAB) 300 mg HS PO 02/22/16 21:00 03/23/16 20:59 Miscellaneous Information (Order Awaiting Action) 1 ea QS N/A 02/22/16 05:30 03/23/16 05:29 Ipratropium [place] (Atrovent 0.02% 0.5MG/2.5ML Neb) 0.5 mg Q4R INH 02/22/16 04:00 03/23/16 03:59 02/22/16 11:14 0.5 MG Levalbuterol (Xopenex 1.25MG/ 0.5ML Neb) 1.25 mg Q4R INH 02/22/16 04:00 03/23/16 03:59 02/22/16 11:14 1.25 MG Ipratropium [place] (Atrovent 0.02% 0.5MG/2.5ML Neb) 0.5 mg Q2H PRN INH 02/22/16 04:00 03/23/16 03:59 02/22/16 14:03 0.5 MG Levalbuterol (Xopenex 1.25MG/ 0.5ML Neb) 1.25 mg Q2H PRN INH 02/22/16 04:00 03/23/16 03:59 02/22/16 14:03 1.25 MG Cyclobenzaprine HCl (Flexeril Tab) 5 mg TID PRN PO 02/22/16 04:45 03/23/16 04:44 02/22/16 11:18 5 MG Insulin Aspart (novoLOG ASPART) SLIDING SCALE If C... TODAY@0200 ONCE SC 02/23/16 02:00 02/23/16 02:01 Menthol (Nice Von) 1 von PRN PRN PO 02/22/16 13:30 03/23/16 13:29 Review of Systems A total of 12 systems was reviewed and is negative other than as listed above in the HPI Physical Exam Date Time Temp Pulse Resp B/P Pulse Ox O2 Delivery O2 Flow Rate FiO2 02/22/16 15:10 36.5 113 18 140/85 100 BiPAP 02/22/16 14:04 108 98 40 02/22/16 14:03 108 18 98 BiPAP/CPAP 40 02/22/16 12:00 98 BiPAP 40 02/22/16 11:15 36.8 106 20 135/87 97 Nasal Cannula 3.0 02/22/16 11:14 121 18 98 Nasal Cannula 2.0 02/22/16 08:00 98 BiPAP 40 02/22/16 07:21 119 18 98 BiPAP/CPAP 40 02/22/16 07:11 119 98 40 02/22/16 07:03 36.5 110 18 142/76 97 BiPAP 02/22/16 03:53 124 98 40 02/22/16 03:52 124 18 98 BiPAP/CPAP 40 02/22/16 03:15 36.4 121 24 170/97 96 CPAP 02/22/16 02:54 130 18 147/107 97 02/22/16 02:30 130 18 147/107 97 BiPAP 40 02/22/16 02:28 129 02/22/16 02:15 130 100 40 02/22/16 00:30 134 19 124/103 100 BiPAP 50 02/21/16 23:58 130 24 100 BiPAP/CPAP 50 02/21/16 23:01 138 24 99 BiPAP/CPAP 50 02/21/16 23:00 138 99 50 02/21/16 22:49 98 CPAP 02/21/16 22:40 98 CPAP 02/21/16 22:39 36.9 137 26 175/102 98 CPAP 02/21/16 22:39 135 GENERAL : Moderate distress with use of accessory muscles EYES: No icterus, gaze conjugate. Right cataract NOSE: No evidence of epistaxis. MOUTH: No lesions or candidiasis. Mucosa moist NECK: Supple. No appreciation of stridor LUNGS: Breath sounds diminished throughout with diffuse bronchospasm HEART: Regular, tachycardic at 114 BPM, no appreciation of murmur ABDOMEN: Soft, NT, ND, BS Present. No rebound tenderness or guarding BACK: Diaphoretic. No CVA tenderness EXTREMITIES: +1 bilateral LE edema, pedal pulses intact NEURO: A&OX3 Laboratory Results Last 24 Hours Test 02/21/16 23:05 02/21/16 23:26 02/22/16 00:05 02/22/16 02:23 Influenza Type A Antigen Neg for Influ A Influenza Type B Antigen Neg for Influ B White Blood Count 8.62 K/uL Red Blood Count 3.54 M/uL Hemoglobin 10.0 g/dL Hematocrit 32.1 % Mean Corpuscular Volume 90.7 fL Mean Corpuscular Hemoglobin 28.2 pg Mean Corpuscular Hemoglobin Concent 31.2 g/dl Platelet Count 367 K/uL Mean Platelet Volume 9.1 fL Neutrophils (%) (Auto) 59.7 % Lymphocytes (%) (Auto) 23.9 % Monocytes (%) (Auto) 15.8 % Eosinophils (%) (Auto) 0.0 % Basophils (%) (Auto) 0.1 % Neutrophils # (Auto) 5.15 K/uL Lymphocytes # (Auto) 2.06 K/uL Monocytes # (Auto) 1.36 K/uL Eosinophils # (Auto) 0.00 K/uL Basophils # (Auto) 0.01 K/uL RDW Standard Deviation 48.3 fL RDW Coefficient of Variation 14.6 % Immature Granulocyte % (Auto) 0.5 % Immature Granulocyte # (Auto) 0.04 K/uL Prothrombin Time 10.0 SECONDS Prothromb Time International Ratio 0.9 Activated Partial Thromboplast Time 24.1 SECONDS Partial Thromboplastin Ratio 0.9 Sodium Level 144 mmol/L Potassium Level 3.8 mmol/L Chloride Level 104 mmol/L Carbon Dioxide Level 29 mmol/L Anion Gap 11.0 mmol/L Blood Urea Nitrogen 16 mg/dl Creatinine 0.94 mg/dl Est Creatinine Clear Calc Drug Dose 76.6 ml/min Estimated GFR () 75.9 Estimated GFR (Non- 65.5 BUN/Creatinine Ratio 17.0 Random Glucose 121 mg/dl Calcium Level 8.9 mg/dl Magnesium Level 2.8 mg/dl Total Bilirubin < 0.1 mg/dl Aspartate Amino Transf (AST/SGOT) 22 U/L Alanine Aminotransferase (ALT/SGPT) 38 U/L Alkaline Phosphatase 80 U/L Troponin I < 0.015 ng/ml Pro-B-Type Natriuretic Peptide 31 pg/ml Total Protein 7.1 gm/dl Albumin 3.3 gm/dl Globulin 3.8 gm/dl Albumin/Globulin Ratio 0.9 Venous Blood pH 7.33 Venous Blood Partial Pressure CO2 62 mmHg Venous Blood Partial Pressure O2 100 mmHg Venous Blood HCO3 32 mmol/L Venous Blood Oxygen Saturation 96.5 % Venous Blood Base Excess 4.4 mmol/L Arterial Blood pH 7.36 Arterial Blood Partial Pressure CO2 53 mmHg Arterial Blood Partial Pressure O2 176 mm/Hg Arterial Blood HCO3 29 mmol/L Arterial Blood Oxygen Saturation 99.2 % Arterial Blood Base Excess 3.0 mEq/L Arterial Blood Gas Delivery 40% BIPAP Ziyad Test POS Test 02/22/16 06:35 02/22/16 07:38 02/22/16 11:31 02/22/16 15:05 Influenza Type A (RT-PCR) Neg for Influ A Influenza Type B (RT-PCR) Neg for Influ B Bedside Glucose 202 mg/dl 196 mg/dl Arterial Blood pH 7.42 Arterial Blood Partial Pressure CO2 51 mmHg Arterial Blood Partial Pressure O2 187 mm/Hg Arterial Blood HCO3 32 mmol/L Arterial Blood Oxygen Saturation 99.3 % Arterial Blood Base Excess 6.6 mEq/L Arterial Blood Gas Delivery 40% Ziyad Test POS Diagnostic Results SINGLE VIEW CHEST CLINICAL HISTORY: Dyspnea. FINDINGS: 2 AP, portable, upright chest radiographs are compared to study dated 12/28/2015. Correlation is made with chest CT dated 12/11/2013. The cardiomediastinal silhouette is unremarkable. There is atherosclerotic calcification of the thoracic aorta. The examination is degraded by portable technique and patient rotation. Advanced emphysema and chronic interstitial thickening are similar to previous. No superimposed airspace consolidation or pleural effusion is identified. No pneumothorax is seen. The skeletal structures are osteopenic. The bony thorax is grossly intact. IMPRESSION: Severe emphysema with no acute cardiopulmonary abnormality. Electronically signed by: Navin Fletcher M.D. 02/22/2016 7:39 AM Assessment & Plan (1) Asthma exacerbation Assessment & Plan: Acute respiratory distress Use of accessory muscles Currently on Brovana BIDR, Xopenex/ipratropium nebulizers, and Singulair Received loading dose of methylprednisolone now on 60 mg IV Q8H Pulmonary consulted and patient was seen by Dr. Younger Currently on BiPAP 02/01 with FiO2 of 50% Current FiO2 to 30%. Concerned was shunt and hyper oxygenation Per Dr. Younger's note we will discontinue Brovana and place her on Symbicort 160/ 4.5 two puffs BID Continue on telemetry (2) COPD exacerbation Assessment & Plan: Previous history of tobacco abuse. Quit several years ago Continue treat for asthma exacerbation with antibiotics, steroids, bronchodilators Severe emphysema on chest x-ray Maintain SPO2 between 88 and 92% Supplemental O2 judiciously as to not hyper oxygenate (3) Diabetes mellitus Assessment & Plan: NovoLog sliding scale insulin Check hemoglobin A1c Continue gabapentin for peripheral neuropathy (4) Reflux esophagitis Assessment & Plan: Continue ranitidine Will add PPI secondary to acute exacerbation of asthma and cough (5) Depression Assessment & Plan: Continue amitriptyline No flat affect. Patient seems appropriate for her condition (6) Hypertension Assessment & Plan: Continue to monitor on telemetry secondary to acute exacerbation of asthma Tachycardic with a heart rate 114 with acute respiratory distress Continue losartan Echocardiogram pending Normal sinus rhythm on telemetry (7) Restless leg syndrome Assessment & Plan: Cyclobenzaprine IV ACCESS Peripheral access in place No indication for central line at this time. DVT PROPHYLAXIS Consider chemical prophylaxis Consider SCDs CCT: 0 minutes. Level V inpatient consult Thank you for including us in the care of this patient. Please refer to Dr. Rosario addendum for further recommendations. Crutch Maker Attending: I personally interviewed and examined this patient. She tells me she started to feel like she was getting ill 5 days ago. She called her PCP and was prescribed Prednisone and an antibiotic but she felt worse and ended up in the ED on [place]. She denies chest pain and feels her SOB is a little better than earlier today. Pertinent data, meds, radiographs have been reviewed. The assessment and plan is well documented above. I will add an hour long xopenex nebulizer treatment now that she's in the ICU and watch for worsening tachycardia. She is at risk for requiring intubation but seems to be holding her own for the time being. Consider F/U abg.
[2016-02-22] MEDS ORDERED: PANTOprazole SOD 40 MG TAB PO ONE (16:44)
--- NOTE | 2016-02-22 17:31 | Progress Note ---
Internal Med Progress Note Date of Service: Feb 22, 2016. Provider Documentation: SUBJECTIVE: required bipap last night improved and was on nasal canula today morning again suddenly became sob and was tachypneic was placed back on bipap-improving has cough afebrile denies chest pain no nausea OBJECTIVE: Vital Signs-as noted below Exam: General-alert and awake and oriented ENT-normal hearing Neck-no neck masses Lungs-cta b/l , tachypneic b/l rhonchi Heart-s1 and s2 heard irregular, no murmurs Abdomen-soft bowel sounds present non tender no distension Extremities-no edema present no erythema Neuro-alert and awake moves extremities Lab data as noted below. ASSESSMENT & PLAN: 60 year old female with history of COPD, Asthma DM, HTN other problems noted below presenting with increasing shortness of breath. Copd/Asthma exacerbation initially required bipap and improved and back on bipap now accessory muscle use and diaphoretic multiple admissions in the past on nebs q 4hrs and prn, iv steroids and Levaquin Brovana changed to Symbicort per pulmonary recommendations transferred to ICU for close monitoring appreciate critcal care and pulmonary input fio2 decreased to 30% by critical care for concern of shunt and hyperoxygenation goal to keep o2 sats 88-92% close monitor DM holding glimepiride and metformin on iss will closely monitor while on steroids Depression continue home meds GERD Zantac add ppi Restless leg syndrome on Requip HTN on losartan. will monitor DVT PROPHYLAXIS scds. Lovenox DISPOSITION close monitor in icu for now Vital Signs: Date Time Temp Pulse Resp B/P Pulse Ox O2 Delivery O2 Flow Rate FiO2 02/22/16 16:00 98 BiPAP 30 02/22/16 15:15 117 32 100 BiPAP/CPAP 40 02/22/16 15:10 36.5 113 18 140/85 100 BiPAP 02/22/16 14:04 108 98 40 02/22/16 14:03 108 18 98 BiPAP/CPAP 40 02/22/16 12:00 98 BiPAP 40 02/22/16 11:15 36.8 106 20 135/87 97 Nasal Cannula 3.0 02/22/16 11:14 121 18 98 Nasal Cannula 2.0 02/22/16 08:00 98 BiPAP 40 02/22/16 07:21 119 18 98 BiPAP/CPAP 40 02/22/16 07:11 119 98 40 02/22/16 07:03 36.5 110 18 142/76 97 BiPAP 02/22/16 03:53 124 98 40 02/22/16 03:52 124 18 98 BiPAP/CPAP 40 02/22/16 03:15 36.4 121 24 170/97 96 CPAP 02/22/16 02:54 130 18 147/107 97 02/22/16 02:30 130 18 147/107 97 BiPAP 40 02/22/16 02:28 129 02/22/16 02:15 130 100 40 02/22/16 00:30 134 19 124/103 100 BiPAP 50 02/21/16 23:58 130 24 100 BiPAP/CPAP 50 02/21/16 23:01 138 24 99 BiPAP/CPAP 50 02/21/16 23:00 138 99 50 02/21/16 22:49 98 CPAP 02/21/16 22:40 98 CPAP 02/21/16 22:39 36.9 137 26 175/102 98 CPAP 02/21/16 22:39 135 Lab Results: Results Past 24 Hours Test 02/21/16 23:05 02/21/16 23:26 02/22/16 00:05 02/22/16 02:23 Range/Units Influenza Type A Antigen Neg for Influ A NEG Influenza Type B Antigen Neg for Influ B NEG White Blood Count 8.62 4.8-10.8 K/uL Red Blood Count 3.54 4.2-5.4 M/uL Hemoglobin 10.0 12.0-16.0 g/dL Hematocrit 32.1 37-47 % Mean Corpuscular Volume 90.7 80-100 fL Mean Corpuscular Hemoglobin 28.2 25-34 pg Mean Corpuscular Hemoglobin Concent 31.2 32-36 g/dl Platelet Count 367 130-400 K/uL Mean Platelet Volume 9.1 7.4-10.4 fL Neutrophils (%) (Auto) 59.7 % Lymphocytes (%) (Auto) 23.9 % Monocytes (%) (Auto) 15.8 % Eosinophils (%) (Auto) 0.0 % Basophils (%) (Auto) 0.1 % Neutrophils # (Auto) 5.15 1.4-6.5 K/uL Lymphocytes # (Auto) 2.06 1.2-3.4 K/uL Monocytes # (Auto) 1.36 0.11-0.59 K/uL Eosinophils # (Auto) 0.00 0-0.5 K/uL Basophils # (Auto) 0.01 0-0.2 K/uL RDW Standard Deviation 48.3 36.4-46.3 fL RDW Coefficient of Variation 14.6 11.5-14.5 % Immature Granulocyte % (Auto) 0.5 % Immature Granulocyte # (Auto) 0.04 0.00-0.02 K/uL Prothrombin Time 10.0 9.0-12.0 SECONDS Prothromb Time International Ratio 0.9 0.9-1.1 Activated Partial Thromboplast Time 24.1 21.0-31.0 SECONDS Partial Thromboplastin Ratio 0.9 Sodium Level 144 136-145 mmol/L Potassium Level 3.8 3.5-5.1 mmol/L Chloride Level 104 98-107 mmol/L Carbon Dioxide Level 29 21-32 mmol/L Anion Gap 11.0 3-11 mmol/L Blood Urea Nitrogen 16 7-18 mg/dl Creatinine 0.94 0.60-1.20 mg/dl Est Creatinine Clear Calc Drug Dose 76.6 ml/min Estimated GFR () 75.9 Estimated GFR (Non- 65.5 BUN/Creatinine Ratio 17.0 10-20 Random Glucose 121 70-99 mg/dl Calcium Level 8.9 8.5-10.1 mg/dl Magnesium Level 2.8 1.8-2.4 mg/dl Total Bilirubin < 0.1 0.2-1 mg/dl Aspartate Amino Transf (AST/SGOT) 22 15-37 U/L Alanine Aminotransferase (ALT/SGPT) 38 12-78 U/L Alkaline Phosphatase 80 45-117 U/L Troponin I < 0.015 0-0.045 ng/ml Pro-B-Type Natriuretic Peptide 31 0-900 pg/ml Total Protein 7.1 6.4-8.2 gm/dl Albumin 3.3 3.4-5.0 gm/dl Globulin 3.8 2.5-4.0 gm/dl Albumin/Globulin Ratio 0.9 0.9-2 Venous Blood pH 7.33 7.36-7.41 Venous Blood Partial Pressure CO2 62 38.0-50.0 mmHg Venous Blood Partial Pressure O2 100 mmHg Venous Blood HCO3 32 mmol/L Venous Blood Oxygen Saturation 96.5 % Venous Blood Base Excess 4.4 mmol/L Arterial Blood pH 7.36 7.35-7.45 Arterial Blood Partial Pressure CO2 53 35-46 mmHg Arterial Blood Partial Pressure O2 176 80-95 mm/Hg Arterial Blood HCO3 29 19-24 mmol/L Arterial Blood Oxygen Saturation 99.2 90-95 % Arterial Blood Base Excess 3.0 -9-1.8 mEq/L Arterial Blood Gas Delivery 40% BIPAP Ziyad Test POS POS Test 02/22/16 06:35 02/22/16 07:38 02/22/16 11:31 02/22/16 15:05 Range/Units Influenza Type A (RT-PCR) Neg for Influ A NEG Influenza Type B (RT-PCR) Neg for Influ B NEG Bedside Glucose 202 196 70-90 mg/dl Arterial Blood pH 7.42 7.35-7.45 Arterial Blood Partial Pressure CO2 51 35-46 mmHg Arterial Blood Partial Pressure O2 187 80-95 mm/Hg Arterial Blood HCO3 32 19-24 mmol/L Arterial Blood Oxygen Saturation 99.3 90-95 % Arterial Blood Base Excess 6.6 -9-1.8 mEq/L Arterial Blood Gas Delivery 40% Ziyad Test POS POS Test 02/22/16 16:14 Range/Units Bedside Glucose 143 70-90 mg/dl
[2016-02-22] MEDS ORDERED: LEVALBUTEROL 1.25MG/0.5ML NEB INH STA (18:10)
[2016-02-22] MEDS: AMITRIPTYLINE HCL 10 MG TAB PO SCH (20:55)
[2016-02-22] MEDS: RANITIDINE HCL 150 MG TAB PO SCH (20:55)
[2016-02-22] MEDS ORDERED: LORAZEPAM 0.5 MG TAB PO ONE (22:00)
[2016-02-22] MEDS: LEVOFLOXACIN / D5W 500 MG in PREMIXED IN D5W 100 ML IV SCH (22:20)
[2016-02-22] MEDS: BUDESONIDE/FORMOTEROL FUMARATE 160/4.5 60 PUFFS/INHALER INH SCH (23:10)
[2016-02-22] MEDS ORDERED: BENZONATATE 100MG CAP PO PRN (23:15)
[2016-02-23] VITALS (27 sets, daily range): BP systolic 98–158; BP diastolic 74–104; PULSE 96–120; TEMP 36.5–36.8; O2SAT 91–100
[2016-02-23] MEDS ORDERED: INSULIN ASPART 100 UNITS/ML 3 ML PEN SC ONE (02:00)
[2016-02-23] MEDS: IPRATROPIUM BROMIDE NEB SOLN 0.02% 2.5 ML VIAL INH SCH ×6 (03:50→23:40)
[2016-02-23] MEDS: LEVALBUTEROL 1.25MG/0.5ML NEB INH SCH ×6 (03:50→23:40)
[2016-02-23] MEDS: METHYLPREDNISOLONE IV 60 MG in SYRINGE 0 ML IV SCH ×3 (04:07→19:22)
[2016-02-23 06:07] LABS: COMPLETE YES; HEMATOCRIT 30.6 % (37-47); IG% 0.4 %; LYMPH % 20.3 %; LYMPH ABS # 1.08 K/uL (1.2-3.4); MEAN CELL VOLUME 90.5 fL (80-100); MEAN CORPUSCULAR HEMOGLOBIN 27.8 pg (25-34); MEAN CORPUSCULAR HGB CONC 30.7 g/dl (32-36); NEUT % 64.3 %; PLATELET COUNT 344 K/uL (130-400); RED BLOOD COUNT 3.38 M/uL (4.2-5.4); WHITE BLOOD COUNT 5.32 K/uL (4.8-10.8)
[2016-02-23 06:34] LABS: BUN/CREATININE RATIO 25.1 (10-20); CALCIUM 8.9 mg/dl (8.5-10.1); CREATININE 0.85 mg/dl (0.60-1.20); MAGNESIUM 2.7 mg/dl (1.8-2.4)
[2016-02-23 06:35] LABS: PHOSPHORUS 3.2 mg/dl (2.5-4.9)
--- NOTE | 2016-02-23 07:41 | DIAGNOSTIC IMAGING REPORT ---
CHEST ONE VIEW PORTABLE CLINICAL HISTORY: asthma, hypoxia COMPARISON STUDY: 02/21/2016 FINDINGS: The heart is at the upper limits of normal in size. There is no focal pulmonary consolidation. There is no failure. There are no significant pleural effusions. There are minor basilar atelectatic changes.[ IMPRESSION: No active disease in the chest. Electronically signed by: Byron Sauceda M.D. 02/23/2016 7:39 AM
[2016-02-23] MEDS: ATORVASTATIN 10 MG TAB PO SCH (07:43)
[2016-02-23] MEDS: PANTOprazole SOD 40 MG TAB PO SCH (07:43)
[2016-02-23] MEDS: ASPIRIN 81 MG ECTAB PO SCH (07:43)
[2016-02-23] MEDS: LOSARTAN POTASSIUM 25 MG TAB PO SCH (07:43)
[2016-02-23] MEDS: PRAMIPEXOLE DIHYDROCHLORIDE 0.5 MG TAB PO SCH ×2 (07:43→20:34)
[2016-02-23] MEDS: GABAPENTIN 100 MG CAP PO SCH ×3 (07:43→20:33)
[2016-02-23] MEDS: BUDESONIDE/FORMOTEROL FUMARATE 160/4.5 60 PUFFS/INHALER INH SCH ×2 (07:44→20:33)
[2016-02-23] MEDS: MONTELUKAST SOD 10 MG TAB PO SCH (07:44)
[2016-02-23] MEDS: INSULIN ASPART 100 UNITS/ML 3 ML PEN SC SCH ×4 (07:49→20:34)
[2016-02-23 07:57] LABS: ESTIMATED AVERAGE GLUCOSE 146 mg/dl; HA1C FLAG Normal (Normal)
--- NOTE | 2016-02-23 07:59 | PROGRESS NOTE ---
DATE: 02/23/2016 SUBJECTIVE: The patient was transferred down to the intensive care unit with respiratory insufficiency and hypercapnia. She is comfortable this morning, eating breakfast with oxygen in place. She was treated with BiPAP. She states occasionally this will happen to her at home as well. She denies significant sputum production, has not had any aspiration. She is comfortable at the present time. Her oxygen saturation is 97% on BiPAP, blood pressure 155/104. When I reviewed her previous records, she did have an echocardiogram that revealed well preserved right ventricular function and left ventricular function with no significant valvular abnormalities. That was done in the spring of this year. PHYSICAL EXAMINATION: GENERAL: I\T\O is 220 and 350 out. Weight 116 kilograms. HEENT: Posterior pharynx shows no thrush. She has a large tongue and a small posterior pharyngeal opening. No adenopathy is noted. HEART: Regular rate and rhythm. No murmurs are heard. Heart sounds are distant. Rate is 110 beats per minute. LUNGS: Reveal some wheezing bilaterally with coarse breath sounds at the left base. No fremitus is noted. There is no dullness to percussion. No subcutaneous emphysema is noted. ABDOMEN: Soft and massively obese. EXTREMITIES: She has no cyanosis, clubbing or edema. LABORATORY DATA: White count is 5.32, hematocrit 31%, platelet count 344,000. PRP shows CO2 of 34, was 29 on the 25th, this. BUN is 21, magnesium is 2.7. Chest x-ray today, report is pending. No pneumothorax is noted. I do not see any infiltrates. Heart size appears to be normal. The pulmonary arteries are normal. IMPRESSION: 1. Chronic obstructive lung disease with exacerbation. I believe, most of this probably is emphysema. She has a bronchospastic component to it as well hence the wheezing and hypercapnia. She has responded fairly well to treatment so far, especially BiPAP. 2. Obesity. RECOMMENDATIONS: 1. Continue on her present medications. Again, I think the Tessalon Perles could be discontinued. I think the Levaquin probably could be discontinued in 24 hours if there is no evidence of infection. Antireflux regimen will be recommended. We started the Symbicort and I think she could use DuoNeb or Atrovent with Xopenex q. 4 hours while awake and q. 4 hours p.r.n. I think the methylprednisolone 60 mg IV q. 8 hours would be enough unless she continues to wheeze. I believe the addition of Singulair 10 mg daily, which she is on now is helpful as well. If she would continue to have problems with wheezing, I would obtain a CT scan of the thorax as a CT angiogram to rule out pulmonary emboli as the cause. I would keep her oxygen delivery down as low as we can in order to prevent worsening shunt. Overall, she is stable.
[2016-02-23] MEDS: ENOXAPARIN 40 MG/0.4 ML SYR SQ SCH (08:05)
[2016-02-23] MEDS ORDERED: PANTOprazole SOD 40 MG TAB PO SCH (09:00)
[2016-02-23] MEDS ORDERED: PERFLUTREN LIPID MICROSPHERE (DEFINITY) IV ONE (09:01)
--- NOTE | 2016-02-23 11:34 | Pharmacy Progress Note ---
Glycemic Control: Progress Nt Date of Service Feb 23, 2016. Scope Glycemic Pharmacist consulted by Dr Murillo on 02/22/16 for glycemic control and to write orders per [facility] inpatient glycemic control protocol. Objective Accuchecks BSG (last 24hrs): Test 02/22/16 11:31 02/22/16 16:14 02/22/16 20:54 02/23/16 01:52 Bedside Glucose 196 mg/dl (70-90) 143 mg/dl (70-90) 196 mg/dl (70-90) 185 mg/dl (70-90) Test 02/23/16 05:40 Random Glucose 147 mg/dl (70-99) Laboratory Data (last 24hrs) Test 02/23/16 05:32 02/23/16 05:40 Hemoglobin A1c 6.7 % White Blood Count 5.32 K/uL Red Blood Count 3.38 M/uL Hemoglobin 9.4 g/dL Hematocrit 30.6 % Mean Corpuscular Volume 90.5 fL Mean Corpuscular Hemoglobin 27.8 pg Mean Corpuscular Hemoglobin Concent 30.7 g/dl Platelet Count 344 K/uL Mean Platelet Volume 9.0 fL Neutrophils (%) (Auto) 64.3 % Lymphocytes (%) (Auto) 20.3 % Monocytes (%) (Auto) 15.0 % Eosinophils (%) (Auto) 0.0 % Basophils (%) (Auto) 0.0 % Neutrophils # (Auto) 3.42 K/uL Lymphocytes # (Auto) 1.08 K/uL Monocytes # (Auto) 0.80 K/uL Eosinophils # (Auto) 0.00 K/uL Basophils # (Auto) 0.00 K/uL Anion Gap 6.0 mmol/L BUN/Creatinine Ratio 25.1 Blood Urea Nitrogen 21 mg/dl Creatinine 0.85 mg/dl Potassium Level 4.0 mmol/L Sodium Level 143 mmol/L HbA1c: Test 02/23/16 05:32 Hemoglobin A1c 6.7 % (4.5-5.6) H Recent Pertinent Medications Outpatient Anti-diabetic Regimen: * Glimepiride 0.5mg PO Q AM * Metformin 1000mg PO BID * A1c = 6.7 % on 02/23/16 The patient is currently receiving: * Basal insulin: Lantus 8 units SC x1 02/21 AM * Correctional Insulin: Novolog Correction per scale ACHS Goal Range: Low 120 mg/dL - High 160 mg/dL Correction Factor: 25 mg/dL/unit * Prandial insulin: Per carb ratio of 1 unit per 10 grams CHO consumed * Oral Agents: None currently Risk Factors for Insulin Resistance: * Steroids: Solu-Medrol 60mg IV Q 8 hours * Infection: COPD exac failing out-pt Augmentin; receiving Levofloxacin IV * Diet: ordered T2DM / AHA diet * Mechanical Ventilation: No, transitioned from BiPAP to nasal canula Assessment & Plan ASSESSMENT: * ADA & AACE recommend a goal blood sugar range 140-180 mg/dl for the majority of critically ill & non-critically ill patients. However, more stringent targets may be selected in individual cases. 02/22/16 * Type 2 diabetic admitted w/ COPD exacerbation failing treatment w/ outpt abx and prednisone. * She is treated w/ 2 oral hypoglycemics - that are currently on hold; and should remain on hold as she is now receiving high dose IV corticosteroids. Will use SQ basal/bolus regimen to achieve glycemic targets. * She has been admitted in the past and received SQ Novolog (CF + CR) alone to control hyperglycemia while on IV steroids; she was not given basal insulin or her oral hypoglycemics. Her current fasting BSG is 202; so I am inclined to give a single small dose of Lantus this AM and reevaluate basal needs tomorrow AM. Perhaps she is more stressed this admission and may require some basal insulin. * The current Novolog CF and CR are reasonable, however the CR dose could be increased a little. * Most recent A1c is from 03/2015; will check w/ AM labs tomorrow to determine appropriateness of outpt regimen 02/23/16 * Patient transferred to ICU for respiratory insufficiency * Received total of 27 units of insulin yesterday with BSG's ranging 143-196 over the last 24 hours * Will give additional one-time dose of Lantus today while pt acutely ill in ICU - may be able to transition to Novolog SQ (CR + CR) alone tomorrow (see above) * Will increase goal to 140-180 mg/dL for ICU status PLAN FOR INPATIENT GLYCEMIC CONTROL: * Holding outpatient oral diabetes medications * Continue Basal insulin with LANTUS 8 units SQ x1 dose * Correctional Insulin with NOVOLOG per scale ACHS or Q6hrs while NPO * Increase Goal Range: Low 140 mg/dL - High 180 mg/dL * Correction Factor: 25 mg/dL/unit * Nutritional / Prandial insulin per carb ratio of 1 unit per 10 grams CHO consumed * Please note that the plan above was derived based on current level of insulin resistance and hospital stress. These recommendations are appropriate for inpatient admission only. Plan of care upon discharge will need to be reassessed to avoid potential outpatient hypo/hyperglycemia. Thank you.
[2016-02-23] MEDS ORDERED: LANTUS PER UNIT CHARGE SQ ONE (12:00)
--- NOTE | 2016-02-23 14:50 | ECHOCARDIOGRAM REPORT ---
*NOTICE TO RECEIVING CONSTITUTION PARTY AGENCY This information is strictly Confidential and protected under [place] law. [place] law prohibits you from making any further disclosure of this information unless further disclosure is expressly permitted by the written consent of the person to whom it pertains or is authorized by law. A general authorization for the release of medical or other information is not sufficient for this purpose. Hospital accepts no responsibility if the information is made available to any other person, INCLUDING THE PATIENT. Interpretation Summary * Name: PETRA POWERS Study Date: 02/23/2016 09:56 AM BP: 155/104 mmHg * Patient Location: .MSICU\[id number]\E105\S\1 HR: 107 * : 1955 (M/d/yyyy) Gender: Female Height: 62 in * Age: 60 yrs Ethnicity: AA Weight: 252 lb * Ordering Physician: Ector Easton * Referring Physician: Self, Referred * Performed By: Jana Karimi RDCS * * Reason For Study: CHF * BSA: 2.1 m2 * History: CHF * COPD, WHEEZING VERY BADLY, COULDN'T HOLD BREATH, DIFFICULT IMAGES * -- Conclusions -- * The study was technically difficult. * The study was technically limited. * The left ventricle is normal in size. * The left ventricle is hyperdynamic. * No regional wall motion abnormalities noted. * Ejection Fraction = >70 %. * No hemodynamically significant valvular aortic stenosis. * There is no mitral valve stenosis. * There is no pericardial effusion. Procedure Details * A contrast injection of Definity was performed to improve assessment of LV function. * Contrast was injected into an intravenous site in the left arm. * One vial of Definity ultrasound contrast was diluted in normal saline to a total volume of 10 ml. A total of '2' ml of solution was administered during imaging. * Lot # [id number] of Definity utilized for procedure. * Expiration date 1 AUG 13. * The attending nurse who injected the contrast agent was OPAL FELIPE RN. * The study was technically difficult. * The study was technically limited. Left Ventricle * The left ventricle is normal in size. * There is normal left ventricular wall thickness. * Ejection Fraction = >70 %. * The left ventricle is hyperdynamic. * No regional wall motion abnormalities noted. Right Ventricle * The right ventricle is grossly normal size. Atria * The left atrial size is normal. * Right atrial size is normal. Mitral Valve * The mitral valve is not well visualized. * There is no mitral valve stenosis. Tricuspid Valve * The tricuspid valve is not well visualized. Aortic Valve * The aortic valve is not well visualized. * No hemodynamically significant valvular aortic stenosis. Pulmonic Valve * The pulmonic valve is not well visualized. Great Vessels * The aortic root is normal size. Pericardium/Pleural * There is no pericardial effusion. MMode 2D Measurements and Calculations IVSd 1.0 cm IVSs 1.6 cm LVIDd 4.2 cm LVIDs 2.6 cm LVPWd 1.5 cm LVPWs 2.0 cm IVS/LVPW 0.68 FS 38.3 % EDV(Teich) 76.6 ml ESV(Teich) 23.8 ml EF(Teich) 69.0 % EDV(cubed) 71.7 ml ESV(cubed) 16.9 ml EF(cubed) 76.5 % % IVS thick 59.3 % % LVPW thick 35.0 % LV mass(C)d 189.1 grams LV mass(C)dI 89.6 grams/m\S\2 LV mass(C)s 187.2 grams LV mass(C)sI 88.8 grams/m\S\2 SV(Teich) 52.8 ml SI(Teich) 25.0 ml/m\S\2 SV(cubed) 54.8 ml SI(cubed) 26.0 ml/m\S\2 Ao root diam 2.3 cm Ao root area 4.2 cm\S\2 LA dimension 2.9 cm LA/Ao 1.2 LVAd ap4 28.6 cm\S\2 LVLd ap4 8.7 cm EDV(MOD-sp4) 78.9 ml EDV(sp4-el) 80.0 ml LVAs ap4 14.9 cm\S\2 LVLs ap4 6.9 cm ESV(MOD-sp4) 27.5 ml ESV(sp4-el) 27.5 ml EF(MOD-sp4) 65.1 % EF(sp4-el) 65.6 % LVAd ap2 37.4 cm\S\2 LVLd ap2 9.0 cm EDV(MOD-sp2) 129.5 ml EDV(sp2-el) 132.2 ml LVAs ap2 16.5 cm\S\2 LVLs ap2 6.8 cm ESV(MOD-sp2) 32.2 ml ESV(sp2-el) 34.0 ml EF(MOD-sp2) 75.2 % EF(sp2-el) 74.3 % LVLd %diff 3.6 % EDV(MOD-bp) 103.5 ml LVLs %diff -1.10 % ESV(MOD-bp) 29.1 ml EF(MOD-bp) 71.9 % SV(MOD-sp4) 51.4 ml SI(MOD-sp4) 24.4 ml/m\S\2 SV(MOD-sp2) 97.4 ml SI(MOD-sp2) 46.1 ml/m\S\2 SV(MOD-bp) 74.4 ml SI(MOD-bp) 35.3 ml/m\S\2 SV(sp4-el) 52.4 ml SI(sp4-el) 24.8 ml/m\S\2 SV(sp2-el) 98.2 ml SI(sp2-el) 46.6 ml/m\S\2 Doppler Measurements and Calculations Ao V2 max 203.6 cm/sec Ao max PG 16.6 mmHg Ao max PG (full) 11.3 mmHg LV V1 max PG 5.3 mmHg LV V1 max 114.9 cm/sec
[2016-02-23] MEDS ORDERED: MoRPHine SULFATE 2 MG/ML CARP ONE (16:10)
[2016-02-23 16:16] LABS: IPAP 10; ISTAT ALLEN TEST Pass; ISTAT ARTERIAL BLOOD GAS HCO3 32 meq/L (19-24); ISTAT ARTERIAL BLOOD GAS PCO2 56 mmHg (35-46); ISTAT ARTERIAL BLOOD GAS PO2 98 mmHg (80-95); ISTAT ARTERIAL BLOOD GAS pH 7.37 (7.35-7.45); ISTAT CARBON DIOXIDE 34 mEq/l (24-31); ISTAT DELIVERY SYSTEM BIPAP; ISTAT FIO2 30 %; ISTAT RATE 22; ISTAT SITE R Radial
[2016-02-23] MEDS ORDERED: NURSING VERBAL MED ORDER ONE (16:45)
--- NOTE | 2016-02-23 17:43 | CRITICAL CARE PROGRESS NOTE ---
DATE: 02/23/2016 SUBJECTIVE: The patient was transferred to the intensive care unit yesterday secondary to increased work of breathing. She had been doing well this morning and was out of bed, walking to the commode with assistance. At least an hour after that she started to become more short of breath and she was placed back on her BiPAP. She is wheezing and is presently receiving 3 consecutive Xopenex treatments. She reports she feels anxious presently. Earlier today she looked very calm and much more comfortable than yesterday. She is being seen by the pulmonary service as well and many thanks to Dr. Younger for his assistance in her care. Her care was discussed in detail on multidisciplinary rounds today. She is not coughing up any sputum. She is having bowel movements. PHYSICAL EXAMINATION: VITAL SIGNS: Maximum temperature is 36.7, heart rate 99-122, respiratory rate 18-30, blood pressure 140-150/90s-100s, oxygen saturation 97% on BiPAP 10/05, 30% oxygen. 24-hour fluid balance positive 120 mL. When she is not on the BiPAP, she is on 5 liters nasal cannula. GENERAL: She is sitting upright in a chair and is slightly diaphoretic. LUNGS: She has expiratory wheezes anteriorly. She is not moving much air when I listen posteriorly. HEART: Tachycardic and regular. ABDOMEN: Deferred due to her seated position. EXTREMITIES: Without any significant edema. NEUROLOGIC: She is awake, able to speak in full sentences, although she is tachypneic. LABORATORY DATA: White blood cell count 5.32, hemoglobin 9.4, hematocrit 30.6, platelets 344. Sodium 143, potassium 4, chloride 103, CO2 of 34, BUN 21, creatinine 0.85. Arterial blood gas is pending. Portable chest x-ray from this morning was reviewed and shows no active disease in the chest. MEDICATIONS AND INFUSIONS: Tylenol, [place], Elavil, aspirin, Lipitor, Tessalon Perles, Symbicort, Flexeril, Lovenox, gabapentin, Flonase, insulin sliding scale, Atrovent, Xopenex, Levaquin day 2, Cozaar, menthol lozenges, Solu-Medrol, Singulair, Zofran, Protonix, Mirapex, Zantac. IMPRESSION: 1. Acute on chronic hypercapnic respiratory failure secondary to acute chronic obstructive pulmonary disease exacerbation. She is being seen by the pulmonary service and was placed on Symbicort yesterday. She continues on intravenous steroids as well as bronchodilators. She may have an element of anxiety associated with her shortness of breath. I am reluctant; however, to give her Ativan. 2. Diabetes mellitus with satisfactory blood sugars on insulin sliding scale. 3. History of reflux esophagitis. 4. Hypertension. This may be partially to some anxiety. I do not think she is in pain. She is on losartan. 5. History of depression. PLAN: 1. Consider increasing her IV steroids. 2. Follow up ABG results. 3. I have ordered lower extremity Dopplers to rule out DVT. 4. I am reluctant to send her to CT scan, particularly since she is quite short of breath at the present time, although improving. 5. Continue proton pump inhibitor. 6. Continue DVT prophylaxis with subcutaneous heparin. 7. Continue her pulmonary regimen of medications. 8. I will try 1 mg dose of morphine to see if it helps her to relax. The Ativan she had last night made her drowsy throughout the night and this morning. Critical care time 40 minutes.
--- NOTE | 2016-02-23 18:00 | DIAGNOSTIC IMAGING REPORT ---
BILATERAL LOWER EXTREMITY VENOUS DOPPLER HISTORY: Lower extremity edema, hypoxia COMPARISON STUDY: None. FINDINGS: There is normal compressibility, flow, and augmentation within the bilateral lower extremity deep venous systems. There is a 9.2 x 5.2 cm fluid collection seen within the deep subcutaneous fat. IMPRESSION: No DVT within the right or left lower extremity. A 9.2 x 5.2 cm deep subcutaneous fluid collection. This could represent a hematoma. Electronically signed by: Francesco Rowe M.D. 02/23/2016 5:58 PM
[2016-02-23] MEDS: CYCLOBENZAPRINE HCL 5 MG TAB PO PRN (19:22)
[2016-02-23] MEDS ORDERED: DICLOFENAC SOD 1% GEL 100 GM TUBE EXT PRN (20:15)
[2016-02-23] MEDS: RANITIDINE HCL 150 MG TAB PO SCH (20:33)
[2016-02-23] MEDS: AMITRIPTYLINE HCL 10 MG TAB PO SCH (20:34)
[2016-02-23] MEDS: LEVOFLOXACIN / D5W 500 MG in PREMIXED IN D5W 100 ML IV SCH (21:38)
--- NOTE | 2016-02-23 21:50 | Progress Note ---
Medicine Progress Note Date & Time of Visit: Feb 23, 2016 at 20:32. Subjective 60 yo F admitted for COPD exacerbation, currently in the ICU -pt feels that her breathing is improved since BIPAP this afternoon along with a dose of morphine for anxiety Objective Last 8 Hrs Date Time Temp Pulse Resp B/P Pulse Ox O2 Delivery O2 Flow Rate FiO2 02/23/16 20:00 97 BiPAP 30 02/23/16 18:00 117 24 158/98 97 BiPAP 30 02/23/16 17:55 120 100 40 02/23/16 16:00 96 BiPAP 5.0 30 02/23/16 16:00 36.6 120 30 156/96 98 BiPAP 30 02/23/16 15:50 158/96 02/23/16 15:50 106 100 40 02/23/16 15:20 103 24 100 BiPAP/CPAP 02/23/16 14:40 113 28 98 BiPAP/CPAP 02/23/16 14:00 111 23 147/94 99 BiPAP 30 Physical Exam: GEN: WNWD, in no acute distress, alert and appropriate, nasal canula in place HEENT: NC/AT, PERRL, normal sclerae CARDIO: reg rate, S1/2 heard without m/g/r LUNGS: inspiratory and expiratory wheezing throughout all lung pool and poor air movement ABD: soft, non-tender, non-distended, no rebound or guarding EXTREMITY: RP and DP palpable 2+ bilat, no LE swelling or edema, extremities are warm and well-perfused NEURO: CN 2-12 grossly intact, sensation intact throughout MUSC: 5/5 strength throughout, no gross focal deficits SKIN: warm and dry Laboratory Results: Last 24 Hours Test 02/22/16 20:54 02/23/16 01:52 02/23/16 05:32 02/23/16 05:40 Bedside Glucose 196 mg/dl 185 mg/dl White Blood Count 5.32 K/uL Red Blood Count 3.38 M/uL Hemoglobin 9.4 g/dL Hematocrit 30.6 % Mean Corpuscular Volume 90.5 fL Mean Corpuscular Hemoglobin 27.8 pg Mean Corpuscular Hemoglobin Concent 30.7 g/dl Platelet Count 344 K/uL Mean Platelet Volume 9.0 fL Neutrophils (%) (Auto) 64.3 % Lymphocytes (%) (Auto) 20.3 % Monocytes (%) (Auto) 15.0 % Eosinophils (%) (Auto) 0.0 % Basophils (%) (Auto) 0.0 % Neutrophils # (Auto) 3.42 K/uL Lymphocytes # (Auto) 1.08 K/uL Monocytes # (Auto) 0.80 K/uL Eosinophils # (Auto) 0.00 K/uL Basophils # (Auto) 0.00 K/uL RDW Standard Deviation 49.3 fL RDW Coefficient of Variation 14.8 % Immature Granulocyte % (Auto) 0.4 % Immature Granulocyte # (Auto) 0.02 K/uL Estimated Average Glucose 146 mg/dl Hemoglobin A1c 6.7 % Sodium Level 143 mmol/L Potassium Level 4.0 mmol/L Chloride Level 103 mmol/L Carbon Dioxide Level 34 mmol/L Anion Gap 6.0 mmol/L Blood Urea Nitrogen 21 mg/dl Creatinine 0.85 mg/dl Est Creatinine Clear Calc Drug Dose 83.9 ml/min Estimated GFR () 85.7 Estimated GFR (Non- 74.0 BUN/Creatinine Ratio 25.1 Random Glucose 147 mg/dl Calcium Level 8.9 mg/dl Phosphorus Level 3.2 mg/dl Magnesium Level 2.7 mg/dl Test 02/23/16 06:26 02/23/16 10:51 02/23/16 15:27 02/23/16 16:03 Bedside Glucose 147 mg/dl 197 mg/dl 126 mg/dl Blood Gas Sample Site R Radial Bedside Blood Gas pH (LAB) 7.37 Bedside Blood Gas pCO2 (LAB) 56 mmHg Bedside Blood Gas pO2 (LAB) 98 mmHg Bedside Blood Gas HCO3 (LAB) 32 meq/L Bedside Blood Gas Total CO2 34 mEq/l Bedside Blood Gas Base Excess (LAB) 7.0 meq/L Bedside Blood Gas O2 Saturation 97.0 % Ziyad Test Pass Oxygen Delivery Device BIPAP Bedside Oxygen Rate (breaths/min) 22 Bedside FiO2 30 % Blood Gas IPAP 10 Date/Time Source Procedure Growth Status 02/22/16 23:04 Nasal MRSA DNA Surveillance Screen - Final Specimen Negative for MRSA by DNA Probe Complete Assessment & Plan Transferred to ICU yesterday 2/2 increased work of breathing. Was ambulatory this morning and then became SOB acutely, and was placed back on her BIPAP and given some morphine for presumed anxiety with good result. Seeing her now at 8pm and she is off her BIPAP and on nasal canula, which she uses at night regularly at home. 1. Acute on chronic hypercapnic respiratory failure2/2 COPD exacerbation. Management per pulm and ICU team. Cont Symbicort, IV steroids and nebs. 2. DMII-at goal, cont ISS. Holding glimepiride and metformin while inpatient 3. GERD-cont PPI 4. HTN-controlled on losartan 5. Depression DVT proph-Heparin DO Michaela Kelsey Hospitalist Consultants: Pulm, ICU Current Inpatient Medications: Current Inpatient Medications Medications (Trade) Dose Ordered Sig/[place] Route Start Time Stop Time Status Last Admin Dose Admin Acetaminophen (Tylenol Tab) 650 mg Q4H PRN PO 02/22/16 02:15 03/23/16 02:14 Ondansetron HCl 4 mg 4 mg Q6H PRN IV 02/22/16 02:15 03/23/16 02:14 Methylprednisolone Sodium Succinate 60 mg/Syringe 0.96 ml @ 1.5 mls/min Q8H IV 02/22/16 04:00 03/23/16 03:59 02/23/16 19:22 1.5 MLS/MIN Levofloxacin/Prmx (Levaquin / D5W/ Premixed D5W) 100 ml @ 100 mls/hr Q24H IV 02/22/16 22:00 03/03/16 21:59 02/22/16 22:20 100 MLS/HR Insulin Aspart (novoLOG ASPART) SLIDING SCALE If C... ACHS SC 02/22/16 06:30 03/23/16 06:59 02/23/16 12:29 7 UNITS Glucose (Glucose 40% Gel) 15-30 GRAMS 15 GRAMS... UD PRN PO 02/22/16 02:15 03/23/16 02:14 Glucose (Glucose Chew Tab) 4-8 Tablets 4 Tabl... UD PRN PO 02/22/16 02:15 03/23/16 02:14 Dextrose (Dextrose 50% 50ML Syringe) 25-50ML OF 50% DW IV FOR... UD PRN IV 02/22/16 02:15 03/23/16 02:14 Glucagon (Glucagon Inj) 1 mg UD PRN SQ 02/22/16 02:15 03/23/16 02:14 Miscellaneous Information (Consult Glycemic Management Pharmacy) 1 ea UD PRN N/A 02/22/16 02:45 03/23/16 02:44 Amitriptyline HCl (Elavil Tab) 10 mg HS PO 02/22/16 21:00 03/23/16 20:59 02/22/16 20:55 10 MG Aspirin (Ecotrin Tab) 81 mg QAM PO 02/22/16 09:00 03/23/16 08:59 02/23/16 07:43 81 MG Atorvastatin Calcium (Lipitor Tab) 10 mg QAM PO 02/22/16 09:00 03/23/16 08:59 02/23/16 07:43 10 MG Fluticasone Propionate (Flonase Nasal [place]) 2 sprays BID PRN LIDYA 02/22/16 02:15 03/23/16 02:14 Gabapentin (Neurontin Cap) 100 mg TID PO 02/22/16 09:00 03/23/16 08:59 02/23/16 14:05 100 MG Acetaminophen/ Hydrocodone Bitart ([place] 5/325 Tab) 1 tab Q8 PRN PO 02/22/16 02:15 03/07/16 02:14 Losartan Potassium (coZAAR TAB) 25 mg QAM PO 02/22/16 09:00 03/23/16 08:59 02/23/16 07:43 25 MG Montelukast Sodium (Singulair Tab) 10 mg QAM PO 02/22/16 09:00 03/23/16 08:59 02/23/16 07:44 10 MG Pantoprazole Sodium (Protonix Tab) 40 mg QAM PO 02/22/16 09:00 03/23/16 08:59 02/23/16 07:43 40 MG Pramipexole Dihydrochloride (miraPEX TAB) 0.5 mg BID PO 02/22/16 09:00 03/23/16 08:59 02/23/16 07:43 0.5 MG Ranitidine HCl (zANTac TAB) 300 mg HS PO 02/22/16 21:00 03/23/16 20:59 02/22/16 20:55 300 MG Miscellaneous Information (Order Awaiting Action) 1 ea QS N/A 02/22/16 05:30 03/23/16 05:29 Ipratropium [place] (Atrovent 0.02% 0.5MG/2.5ML Neb) 0.5 mg Q4R INH 02/22/16 04:00 03/23/16 03:59 02/23/16 14:40 0.5 MG Levalbuterol (Xopenex 1.25MG/ 0.5ML Neb) 1.25 mg Q4R INH 02/22/16 04:00 03/23/16 03:59 02/23/16 14:40 1.25 MG Ipratropium [place] (Atrovent 0.02% 0.5MG/2.5ML Neb) 0.5 mg Q2H PRN INH 02/22/16 04:00 03/23/16 03:59 02/22/16 14:03 0.5 MG Levalbuterol (Xopenex 1.25MG/ 0.5ML Neb) 1.25 mg Q2H PRN INH 02/22/16 04:00 03/23/16 03:59 02/22/16 14:03 1.25 MG Cyclobenzaprine HCl (Flexeril Tab) 5 mg TID PRN PO 02/22/16 04:45 03/23/16 04:44 02/23/16 19:22 5 MG Menthol ([place]) 1 von PRN PRN PO 02/22/16 13:30 03/23/16 13:29 Budesonide/ Formoterol Fumarate (Symbicort 160/ 4.5 Inh) 2 puffs BID INH 02/22/16 21:00 03/23/16 20:59 02/23/16 07:44 2 PUFFS Enoxaparin Sodium (Lovenox Inj) 40 mg QAM SQ 02/23/16 09:00 03/24/16 08:59 02/23/16 08:05 40 MG Benzonatate (Tessalon Perles Cap) 100 mg TID PRN PO 02/22/16 23:15 03/23/16 23:14 02/23/16 07:44 100 MG Diclofenac Sodium (Voltaren 1% Top Gel) 1 appln BID PRN EXT 02/23/16 20:15 03/24/16 20:14 UNV
[2016-02-24] VITALS (38 sets, daily range): BP systolic 114–174; BP diastolic 73–125; PULSE 96–149; TEMP 36.5–37; O2SAT 94–100
[2016-02-24] MEDS: METHYLPREDNISOLONE IV 60 MG in SYRINGE 0 ML IV SCH ×2 (03:21→13:29)
[2016-02-24] MEDS: LEVALBUTEROL 1.25MG/0.5ML NEB INH SCH ×5 (04:00→20:00)
[2016-02-24] MEDS: IPRATROPIUM BROMIDE NEB SOLN 0.02% 2.5 ML VIAL INH SCH ×5 (04:00→20:00)
[2016-02-24 06:26] LABS: COMPLETE YES; HEMATOCRIT 30.9 % (37-47); IG% 0.5 %; LYMPH % 13.8 %; MEAN CELL VOLUME 90.1 fL (80-100); MEAN CORPUSCULAR HEMOGLOBIN 27.7 pg (25-34); MEAN CORPUSCULAR HGB CONC 30.7 g/dl (32-36); NEUT % 75.7 %; PLATELET COUNT 350 K/uL (130-400); RED BLOOD COUNT 3.43 M/uL (4.2-5.4)
[2016-02-24 07:12] LABS: BUN/CREATININE RATIO 30.5 (10-20); CALCIUM 8.9 mg/dl (8.5-10.1); CREATININE 0.85 mg/dl (0.60-1.20); MAGNESIUM 2.8 mg/dl (1.8-2.4); POTASSIUM 4.2 mmol/L (3.5-5.1)
--- NOTE | 2016-02-24 07:47 | DIAGNOSTIC IMAGING REPORT ---
SINGLE VIEW CHEST CLINICAL HISTORY: COPD. FINDINGS: An AP, portable, upright chest radiograph is compared to study dated 02/23/2016 and correlated with chest CT dated 12/11/2013. The examination is degraded by portable technique, apical lordotic positioning, and patient rotation. The heart is top normal for projection. The pulmonary vasculature is noncongested. There is atherosclerotic calcification of the thoracic aorta. Advanced emphysema and chronic interstitial thickening is similar to previous. The lungs and pleural spaces are clear. No pneumothorax is seen. The skeletal structures are osteopenic. The bony thorax is grossly intact. IMPRESSION: Advanced emphysema with no acute cardiopulmonary abnormality. There has been no significant change from yesterday. Electronically signed by: Navin Fletcher M.D. 02/24/2016 7:46 AM
[2016-02-24] MEDS: INSULIN ASPART 100 UNITS/ML 3 ML PEN SC SCH (09:36)
[2016-02-24] MEDS: BUDESONIDE/FORMOTEROL FUMARATE 160/4.5 60 PUFFS/INHALER INH SCH ×2 (10:11→20:22)
[2016-02-24] MEDS: LOSARTAN POTASSIUM 25 MG TAB PO SCH (11:38)
[2016-02-24] MEDS: ASPIRIN 81 MG ECTAB PO SCH (11:39)
[2016-02-24] MEDS: PRAMIPEXOLE DIHYDROCHLORIDE 0.5 MG TAB PO SCH ×2 (11:39→21:18)
[2016-02-24] MEDS: GABAPENTIN 100 MG CAP PO SCH ×3 (11:39→21:19)
[2016-02-24] MEDS: ATORVASTATIN 10 MG TAB PO SCH (11:39)
[2016-02-24] MEDS: MONTELUKAST SOD 10 MG TAB PO SCH (11:39)
[2016-02-24] MEDS: PANTOprazole SOD 40 MG TAB PO SCH (11:39)
--- NOTE | 2016-02-24 11:39 | Psychiatric Consultation ---
Consultation Identifying Data 60 y/o female with no psychiatric history who is admitted for COPD and respiratory failure. Psychiatry was consulted for anxiety. Chief Complaint "I get scared when I can't get my breath". History of Present Illness The patient was admitted 02/20 with respiratory distress and has been transferred to the ICU for ongoing SOB. Pulmonology is seeing her and added a PPI for reflux, IV steroids, Symbicort and bronchodilators. She continues to have episodes of SOB, and has been given morphine IV, which she says was helpful. She denies any history of mental illness, and says she is prescribed amitriptyline for headache prophylaxis, not depression. She denies all symptoms of depression, TALIA, panic, and PTSD. She states she only feels anxious when she can't catch her breath, and typically is able to "have someone talk me through it," but when it is severe, she feels fearful. She says the morphine she got helped. She denies SI, HI and psychotic symptoms. Past Psychiatric History Current OP Treatment: no current treatment Prior OP Treatment: no prior treatment No history of psychiatric diagnosis, treatment, suicide attempts, or hospitalizations. No history of psychotropic mediations. Past Medical/Surgical History History of Obesity: Yes History of HTN: Yes History of Diabetes: Yes Problem List: severe COPD asthma osteoarthritis RLS GERD Allergies Allergies: Coded Allergies: No Known Allergies (Verified , 02/21/16) Home Medications Scheduled Amitriptyline HCl (Amitriptyline HCl), 10 MG PO HS Arformoterol Tartrate (Brovana), 15 MCG IN BID Aspirin (Aspirin Chewable), 81 MG PO DAILY Atorvastatin (Lipitor), 10 MG PO QAM Cyanocobalamin (Vitamin B12), 1,000 MCG PO DAILY Ferrous Sulfate (Iron Supplement), 325 MG PO QAM Fluticasone Furoate-Vilanterol (Breo Ellipta 200-25 Mcg/INH), 1 PUFF PO DAILY Gabapentin (Neurontin), 100 MG PO TID Losartan Potassium (Cozaar), 25 MG PO QAM Metformin Hcl (Glucophage), 1,000 MG PO BID Montelukast Sodium (Singulair), 10 MG PO QAM Oxygen (Oxygen), 2 LITERS NA HS Pantoprazole Sodium (Protonix), 40 MG PO QAM Pramipexole Dihydrochloride (Mirapex), 0.5 MG PO BID Ranitidine Hcl (Zantac), 300 MG PO HS Tiotropium [place] (Spiriva Handihaler), 1 CAP INH QAM Scheduled PRN Albuterol (Proair Hfa), 2 PUFF INH Q4H PRN for Wheezing Azithromycin (Zithromax), 1 PKT PO UD PRN for rescue kit Benzonatate (Tessalon Perles), 1-2 CAP PO TID PRN for Cough Cyclobenzaprine Hcl (Flexeril), 10 MG PO BID PRN for Muscle Spasms Fluticasone Propionate (Fluticasone Propionate), 2 SPRAYS LIDYA BID PRN for Nasal Congestion Furosemide (Lasix), 20 MG PO QAM PRN for fluid and wt gain Glimepiride (Amaryl), 0.5 TAB PO QAM PRN for while on prednisone Hydrocodone/Acetaminophen 5MG/325MG (Martin 5MG/325MG), 1 TABLET PO Q8 PRN for Moderate Pain Ipratropium-Albuterol (Duoneb), 1 TREATMENT INH Q4H PRN for SOB/Wheezing Potassium Chloride (Potassium Chloride Er), 1 TAB PO DAILY PRN for with lasix Pramipexole Dihydrochloride (Mirapex Er), 1-2 TABS PO HS PRN for RLS Prednisone (Prednisone), MG PO UD PRN for rescue kit Zolpidem Tartrate (Ambien), 10 MG PO HS PRN for Sleep Family History Diabetes mellitus FH: heart disease FH: lung disease FHx: cancer Hypertension Alcohol Use Alcohol Use In Past 12 Months: No Substance History Substance Use Past 12 Months: Hx of Inhalent Use: No Hx of Organic Substance Use: No Hx of Illegal/Street Drug Use: No Former smoker, quit 2 years ago, 25 pack year history Personal History Work History: unemployed, on disability Additional Comments: Lives in [place], family live locally Review of Systems No SI, HI, AVH, paranoia, confusion Respiratory: reports: see HPI Examination Vital Signs Vital Signs Past 12 Hours Date Time Temp Pulse Resp B/P Pulse Ox O2 Delivery O2 Flow Rate FiO2 02/24/16 10:00 103 19 120/92 100 Nasal Cannula 4.0 02/24/16 08:00 36.8 101 22 146/92 100 BiPAP 30 02/24/16 08:00 100 BiPAP 30 02/24/16 07:11 108 22 99 Nasal Cannula 2.0 02/24/16 06:00 99 19 114/75 97 02/24/16 04:00 96 22 96 Nasal Cannula 2.0 02/24/16 04:00 98 Nasal Cannula 2.0 02/24/16 04:00 36.5 02/24/16 03:59 98 16 115/75 99 02/24/16 02:04 96 17 128/83 100 02/23/16 23:59 36.5 02/23/16 23:59 107 15 111/99 100 02/23/16 23:59 100 Nasal Cannula 4.0 02/23/16 23:30 110 24 94 BiPAP/CPAP Laboratory Results Last 24 Hours Test 02/23/16 15:27 02/23/16 16:03 02/23/16 20:30 02/23/16 20:32 Bedside Glucose 126 mg/dl 139 mg/dl Blood Gas Sample Site R Radial Bedside Blood Gas pH (LAB) 7.37 Bedside Blood Gas pCO2 (LAB) 56 mmHg Bedside Blood Gas pO2 (LAB) 98 mmHg Bedside Blood Gas HCO3 (LAB) 32 meq/L Bedside Blood Gas Total CO2 34 mEq/l Bedside Blood Gas Base Excess (LAB) 7.0 meq/L Bedside Blood Gas O2 Saturation 97.0 % Ziyad Test Pass Oxygen Delivery Device BIPAP Bedside Oxygen Rate (breaths/min) 22 Bedside FiO2 30 % Blood Gas IPAP 10 Urine Random Phosphorus > 90.0 mg/dl Test 02/24/16 05:58 02/24/16 05:59 White Blood Count 6.50 K/uL Red Blood Count 3.43 M/uL Hemoglobin 9.5 g/dL Hematocrit 30.9 % Mean Corpuscular Volume 90.1 fL Mean Corpuscular Hemoglobin 27.7 pg Mean Corpuscular Hemoglobin Concent 30.7 g/dl Platelet Count 350 K/uL Mean Platelet Volume 9.0 fL Neutrophils (%) (Auto) 75.7 % Lymphocytes (%) (Auto) 13.8 % Monocytes (%) (Auto) 10.0 % Eosinophils (%) (Auto) 0.0 % Basophils (%) (Auto) 0.0 % Neutrophils # (Auto) 4.92 K/uL Lymphocytes # (Auto) 0.90 K/uL Monocytes # (Auto) 0.65 K/uL Eosinophils # (Auto) 0.00 K/uL Basophils # (Auto) 0.00 K/uL RDW Standard Deviation 49.2 fL RDW Coefficient of Variation 14.8 % Immature Granulocyte % (Auto) 0.5 % Immature Granulocyte # (Auto) 0.03 K/uL Nucleated RBC Absolute Count (auto) 0.03 K/uL Nucleated Red Blood Cells % 0.5 % Sodium Level 141 mmol/L Potassium Level 4.2 mmol/L Chloride Level 102 mmol/L Carbon Dioxide Level 32 mmol/L Anion Gap 7.0 mmol/L Blood Urea Nitrogen 26 mg/dl Creatinine 0.85 mg/dl Est Creatinine Clear Calc Drug Dose 83.9 ml/min Estimated GFR () 85.7 Estimated GFR (Non- 74.0 BUN/Creatinine Ratio 30.5 Random Glucose 206 mg/dl Calcium Level 8.9 mg/dl Magnesium Level 2.8 mg/dl Bedside Glucose 213 mg/dl Mental Examination During interview pt is: alert and oriented, cooperative Appearance: appropriately dressed (in hospital gown) Eye contact is: good Motor behavior is: no abnormal motor movements Speech: normal in rate, rhythm & volume Affect: euthymic Mood is: other ("okay now") Thought process: goal directed Thought content: reality based without delusions Suicidal thought are: denied Homicidal thoughts are: denied Hallucinations: denies auditory Cognition: memory grossly intact, attention grossly intact, language grossly intact Intelligence estimated to be: average Insight: good Judgement: good Impression / Recommendations Impression Patient with no psychiatric history who endorses anxiety with episodes of severe SOB. Denies all symptoms of generalized anxiety disorder, panic disorder , and depression. She does not appear to have a primary psychiatric condition, and states she only feels anxious when short of breath. This is consistent with her respiratory disease, and she states she can typically be "talked through" these episodes. She did find morphine helpful and it is ordered prn. Recommendations (1) Respiratory failure Most likely cause of acute anxiety, which is episodic and occurring only during periods of SOB. She indicates staff support is helpful, and that morphine was helpful for a severe episode, and it is ordered prn. No indication for SSRIs or other psychotropic medications, or psychiatric intervention or follow up.
[2016-02-24] MEDS: ENOXAPARIN 40 MG/0.4 ML SYR SQ SCH (11:40)
[2016-02-24] MEDS ORDERED: OPTIRAY 320 IV PRN (12:00)
--- NOTE | 2016-02-24 14:18 | Pharmacy Progress Note ---
Glycemic Control: Progress Nt Date of Service Feb 24, 2016. Scope Glycemic Pharmacist consulted by Dr Murillo on 02/22/16 for glycemic control and to write orders per [facility] inpatient glycemic control protocol. Objective Accuchecks BSG (last 24hrs): Test 02/23/16 15:27 02/23/16 20:32 02/24/16 05:58 02/24/16 05:59 Bedside Glucose 126 mg/dl (70-90) 139 mg/dl (70-90) 213 mg/dl (70-90) Random Glucose 206 mg/dl (70-99) Test 02/24/16 11:20 Bedside Glucose 145 mg/dl (70-90) Laboratory Data (last 24hrs) Test 02/24/16 05:58 Anion Gap 7.0 mmol/L BUN/Creatinine Ratio 30.5 Blood Urea Nitrogen 26 mg/dl Creatinine 0.85 mg/dl Potassium Level 4.2 mmol/L Sodium Level 141 mmol/L White Blood Count 6.50 K/uL Red Blood Count 3.43 M/uL Hemoglobin 9.5 g/dL Hematocrit 30.9 % Mean Corpuscular Volume 90.1 fL Mean Corpuscular Hemoglobin 27.7 pg Mean Corpuscular Hemoglobin Concent 30.7 g/dl Platelet Count 350 K/uL Mean Platelet Volume 9.0 fL Neutrophils (%) (Auto) 75.7 % Lymphocytes (%) (Auto) 13.8 % Monocytes (%) (Auto) 10.0 % Eosinophils (%) (Auto) 0.0 % Basophils (%) (Auto) 0.0 % Neutrophils # (Auto) 4.92 K/uL Lymphocytes # (Auto) 0.90 K/uL Monocytes # (Auto) 0.65 K/uL Eosinophils # (Auto) 0.00 K/uL Basophils # (Auto) 0.00 K/uL HbA1c: Test 02/23/16 05:32 Hemoglobin A1c 6.7 % (4.5-5.6) H Recent Pertinent Medications Outpatient Anti-diabetic Regimen: * Glimepiride 0.5mg PO Q AM * Metformin 1000mg PO BID * A1c = 6.7 % on 02/23/16 The patient is currently receiving: * Basal insulin: Lantus 8 units SC x1 02/21 and 02/22 AM * Correctional Insulin: Novolog Correction per scale ACHS Goal Range: Low 140 mg/dL - High 180 mg/dL Correction Factor: 25 mg/dL/unit * Prandial insulin: Per carb ratio of 1 unit per 10 grams CHO consumed * Oral Agents: None currently Risk Factors for Insulin Resistance: * Steroids: Solu-Medrol 60mg IV Q 8 hours * Infection: COPD exac failing out-pt Augmentin; receiving Levofloxacin IV * Diet: ordered T2DM / AHA diet Assessment & Plan ASSESSMENT: * ADA & AACE recommend a goal blood sugar range 140-180 mg/dl for the majority of critically ill & non-critically ill patients. However, more stringent targets may be selected in individual cases. 02/23/16 * Patient transferred to ICU for respiratory insufficiency * Received total of 27 units of insulin yesterday with BSG's ranging 143-196 over the last 24 hours * Will give additional one-time dose of Lantus today while pt acutely ill in ICU - may be able to transition to Novolog SQ (CR + CR) alone tomorrow (see above) * Will increase goal to 140-180 mg/dL for ICU status 02/24/16 * BSG elevated to 213 mg/dL this AM 2nd pt eating dinner 02/22 @ ~2015 (per RN note) but no insulin admin. Post-prandial elevations in pts on steroids can be significant. * She has been admitted in the past and received SQ Novolog (CF + CR) alone to control hyperglycemia while on IV steroids; she was not given basal insulin or her oral hypoglycemics. * Will not continue Lantus at this time * Will instead slightly decrease goal range of Novolog and slightly tighten carb ratio PLAN FOR INPATIENT GLYCEMIC CONTROL: * Holding outpatient oral diabetes medications * Discontinue basal insulin * Correctional Insulin with NOVOLOG per scale ACHS or Q6hrs while NPO * Decrease Goal Range: Low 120 mg/dL - High 160 mg/dL * Correction Factor: 25 mg/dL/unit * Tighten Nutritional / Prandial insulin per carb ratio of 1 unit per 9 grams CHO consumed * Please note that the plan above was derived based on current level of insulin resistance and hospital stress. These recommendations are appropriate for inpatient admission only. Plan of care upon discharge will need to be reassessed to avoid potential outpatient hypo/hyperglycemia. Thank you.
[2016-02-24] MEDS: MoRPHine SULFATE 2 MG/ML CARP IV PRN ×2 (14:20→15:15)
[2016-02-24] MEDS ORDERED: LORAZEPAM 2 MG/ML 1 ML VIAL ONE (15:13)
[2016-02-24] MEDS ORDERED: METHYLPREDNISOLONE 125 MG VIAL ONE (15:15)
[2016-02-24 15:40] LABS: IPAP 13; ISTAT ALLEN TEST Pass; ISTAT ARTERIAL BLOOD GAS HCO3 36 meq/L (19-24); ISTAT ARTERIAL BLOOD GAS PCO2 73 mmHg (35-46); ISTAT ARTERIAL BLOOD GAS PO2 207 mmHg (80-95); ISTAT CARBON DIOXIDE 38 mEq/l (24-31); ISTAT DELIVERY SYSTEM BIPAP; ISTAT FIO2 40 %; ISTAT RATE 12; ISTAT SITE L Radial
[2016-02-24] MEDS ORDERED: INSULIN ASPART 100 UNITS/ML 3 ML PEN SC SCH (16:00)
[2016-02-24] MEDS ORDERED: LORAZEPAM 2 MG/ML 1 ML VIAL IV STA (16:22)
[2016-02-24] MEDS ORDERED: [UNRECOGNIZED DRUG - OTHER] IV STA (16:22)
[2016-02-24] MEDS ORDERED: DRIP IV STA (16:22)
[2016-02-24] MEDS: MAGNESIUM SULFATE 1GM / D5W 1 GM in PREMIXED IN D5W 100 ML IV SCH ×2 (16:30→19:17)
[2016-02-24] MEDS ORDERED: PROPOFOL IV EMULSION 10 MG/ML 100 ML VIAL IV ONE ×2 (16:40→17:13)
[2016-02-24] MEDS ORDERED: MoRPHine SULFATE 4 MG/ML 1 ML CARP\\VIAL IV PRN (17:15)
[2016-02-24] MEDS ORDERED: MIDAZOLAM HCL 1 MG/ML 2ML VIAL IV STA (17:22)
--- NOTE | 2016-02-24 17:22 | Progress Note ---
Progress Note Called by bilingual interpreter for airway management. 60 year old F with COPD/Asthma exacerbation not responsive to aggressive therapy and currently tiring with increasing CO2 on BiPap. Special assistance requested for airway management. Preprocedure airway exam was reassuring to my assessment. Patient was placed on 1.0 FiO2 in preparation for intubation. Pre Procedure Vital Signs: BP 138/101 HR 144 SPO2 (unreadable due to artifact), PaO2 207mmHg on 0.3FiO2 Medications given: Esmolol 70mg Propofol 160mg Succinylcholine 160mg Procedure: Easy Mask Ventilation Dentures Removed Alvarado 2 DL x 1 Grade 1 View 8.0 ETT passed to 22cm at lip Continuous ETCO2, BL Breath Sounds Post Procedure Vitals: BP 151/93 HR 108 SPO2 100 Sedation and ventilaton plan in place per PCCM.
[2016-02-24] MEDS ORDERED: MIDAZOLAM 125MG/250ML D5W IV ONE (17:23)
[2016-02-24] MEDS ORDERED: ESMOLOL HCL 10 MG/ML 10 ML VIAL ONE (17:27)
[2016-02-24] MEDS ORDERED: ROCURONIUM BROMIDE IV ONE (17:30)
[2016-02-24] MEDS ORDERED: LEVALBUTEROL 1.25MG/3ML NEB INH ONE (18:00)
[2016-02-24] MEDS ORDERED: IPRATROPIUM BROMIDE NEB SOLN 0.02% 2.5 ML VIAL INH ONE (18:00)
--- NOTE | 2016-02-24 18:29 | DIAGNOSTIC IMAGING REPORT ---
CHEST ONE VIEW PORTABLE CLINICAL HISTORY: s/p intubation tube position COMPARISON STUDY: 1228 2015 6:53 AM FINDINGS: Endotracheal tube positioned 2 cm above the romina. PICC catheter in the superior Vena cava. No evidence pneumothorax. IMPRESSION: Endotracheal tube 2 cm above the romina. PICC catheter superior vena cava. Electronically signed by: Fuentes Lewis M.D. 02/24/2016 6:27 PM
--- NOTE | 2016-02-24 19:05 | CRITICAL CARE PROGRESS NOTE ---
DATE: 02/24/2016 GENERAL INFORMATION: I have been in the patient's room multiple times this afternoon. Her care was discussed in detail on multidisciplinary rounds today. Last night, she had a quiet night and remained on the BiPAP overnight. I saw her earlier in the day and she was moving air better on both sides of her chest, compared to yesterday. CT of the chest was ordered and she became tachypneic when she was being rolled down the hallway out of the intensive care unit. She came back to the ICU and was placed on BiPAP. She received 3 Xopenex treatments, one combined with Atrovent. She got 2 grams of magnesium sulfate, but unfortunately started to retain carbon dioxide and a pCO2 of 70. I discussed her care with Dr. Younger who also came to evaluate her along with anesthesia and a decision was made to electively intubate her. Presently, she is on the ventilator with peak airway pressures around 20. She is not requiring paralysis at this point. Arterial blood gas and follow up chest x-ray are pending. PHYSICAL EXAMINATION: VITAL SIGNS: Maximum temperature 37, heart rate 99-133, respiratory rate 19-32, blood pressure 120s-180s/90s, oxygen saturation, presently 100%. Ventilator settings are assist control rate 12, tidal volume 450, FiO2 60%, PEEP 5. GENERAL: Prior to intubation, she was awake and alert. She was tachypneic and using accessory musculature. LUNGS: She had very tight breath sounds bilaterally, more so on the right than on the left with some very mild expiratory wheezing. HEART: Tachycardic. No murmurs noted. ABDOMEN: Obese, soft, nondistended, nontender. EXTREMITIES: Warm, no edema. LABORATORY DATA: White blood cell count 6.5, hemoglobin 9.5, hematocrit 30.9, platelets 350. Sodium 141, potassium 4.2, chloride 108, CO2 32, BUN 26, creatinine 0.85, blood sugar 206. IMAGING DATA: Portable chest x-ray post-intubation is pending. X-ray from this morning was reviewed and shows no acute cardiopulmonary abnormality. MEDICATIONS: Acetaminophen, River, Elavil, aspirin, Lipitor, Tessalon Perles, Symbicort, Flexeril, Voltaren, Lovenox, Flonase, gabapentin, insulin sliding scale, Atrovent, Xopenex, Cozaar, magnesium, menthol, Solu-Medrol, versed, Singulair, morphine, Zofran, Protonix, Mirapex, propofol, Zantac, rocuronium. IMPRESSION: 1. Acute exacerbation of chronic obstructive pulmonary disease versus asthma. She had several episodes of shortness of breath and wheezing over the past 48 hours; however, she started to retain CO2, this afternoon. She was electively intubated and the anesthesiology service kindly performed the intubation. 2. Acute on chronic hypercapnic respiratory failure. 3. Diabetes mellitus. 4. History of reflux esophagitis. 5. Hypertension. 6. Reported history of depression. This evidently is not correct. Due to family reports of anxiety at home often surrounding shortness of breath, I consulted the psychiatry service today. The patient does not have depression nor does she have a generalized anxiety disorder. Neurologic: Continue Versed and propofol infusions. She may require a neuromuscular blockade, but I would like to make sure that she is very well sedated prior to that. Pulmonary: Her peak airway pressures are around 19-26 with a respiratory rate of 16-19. Her set respiratory rate is 12. Follow up ABG. I have increased her steroids to 80 mg IV q. 6 hours. Continue bronchodilators as well as Singulair, Symbicort and ventilatory support. The institution unfortunately does not have heliox. Continue to follow pulmonary recommendations. If she stabilizes overnight tonight, I will send her for a CT scan of the chest with IV contrast to rule out PE. She has not been hypoxic. Lower extremity Dopplers are negative. Cardiovascular: She has sinus tachycardia and the lowest I have seen her heart rate is in the 90s. Hopefully, now that she is more sedated on the ventilator that will improve. Treat hypertension with p.r.n. labetalol or possibly hydralazine. Watch volume status. A PICC line was placed this afternoon. Continue Cozaar. Gastrointestinal: NG tube has been placed. Consider tube feeds tomorrow. Infectious disease: She remains on Levaquin day #3. Continue that for now. Culture any sputum should she produced some. Renal: No acute issues. Follow creatinine daily. Endocrine: Now that her steroids have been increased, she may require more insulin. Continue DVT prophylaxis with subcutaneous heparin as well and GI prophylaxis, which I will change to Protonix. Many thanks to the anesthesiology and pulmonary services for their assistance in her care. I updated multiple family members including her daughter, Rudolph as well as her sister, Silvia and Silvia's daughter regarding the course of events. I tried to call the patient's daughter per prior to intubation. Questions were answered and support was provided. Critical care time excluding procedures is 90 minutes. EDUARDA
--- NOTE | 2016-02-24 19:43 | PROGRESS NOTE ---
DATE: 02/23/2016 HISTORY OF PRESENT ILLNESS: The patient has developed an increasing respiratory rate with discoordinated breathing. We attempted to get her down for a CT scan to rule out pulmonary emboli. She is unable to lie flat. This has happened almost every day since she has been here. She denies reflux, significant sputum production, just a nonproductive cough. Prior to hospitalization, she states she has been fairly active. I reviewed her records and she has a history of some respiratory failure, having been hospitalized here in March and then in April, November and now. She states she is able to get out shopping and do her chores at home without difficulty. She did have an echocardiogram, it was difficult because of her body habitus to evaluate the right-sided structures. That was performed on 04/03/2015, showed an LVEF of greater than 70% with hyperdynamic left ventricle. Valves are not visualized, right-sided structures could not be commented on. Nonetheless, she has required high dose steroids, continuous nebulizer treatments. She continues to be tachypneic now. Dr. Flores has asked me to evaluate the patient in the intensive care unit once again. The patient is able to converse. She is on BiPAP now and is tolerating that. States over the last 30 minutes, she is improved. She states occasionally this will happen with her at home as well. She specifically denies any aspiration. Has a nonproductive cough. No hoarseness. No chest pain or chest tightness. Denies any other significant changes. PHYSICAL EXAMINATION: VITAL SIGNS: Stable. Oxygen saturation is 98% on BiPAP and she is afebrile. HEENT: Nose exam is unremarkable. I did not take the mask off to evaluate the posterior pharynx. There is no evidence of upper airway obstruction. Trachea is midline. No subcutaneous emphysema is noted. She does have use of accessory muscles of respiration. No adenopathy is noted. HEART: Sounds are very distant. I do not detect any gallops. Rate is 130 beats per minute. LUNGS: Reveal markedly decreased breath sounds bilaterally, very minimal wheezing right at the end of expiration. No fremitus is noted. There is no dullness to percussion. ABDOMEN: Soft and obese and protuberant. No tenderness is noted. EXTREMITIES: She has no cyanosis, clubbing or edema. There is no evidence of DVT by exam. In review of her records, she had a CAT scan done several years ago of the thorax that revealed changes consistent with severe emphysema. Chest x-ray now reveals changes consistent with hyperinflation with top normal heart size. No pneumothorax is noted. That was the film from today. LABORATORY DATA: White count 6.5, H\T\H 9.5 and 31%, platelet count 350,000. Blood gas reveals pH 7.30, pCO2 of 73, pO2 of 207 on BiPAP, that was at 1525 hours. PRP is stable with a CO2 of 32. MRSA DNA surveillance screen is negative. IMPRESSION: 1. Respiratory failure with hypercapnia. She may be developing some respiratory muscle weakness, although she states she is better. This would explain the tachycardia. This may all be related to chronic obstructive pulmonary disease with exacerbation. 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 It appears to be severe emphysema with a bronchospastic component. 2. Obesity. RECOMMENDATIONS: 2 grams of mag sulfate may be helpful. I will continue with the steroids and increase that to Solu-Medrol 60 mg IV q. 6 hours, follow the sugars carefully. I will continue on Symbicort but she is unable to tolerate that. Then Brovana 1 inhalation twice a day with Pulmicort Respules twice a day would be helpful. She may not be able to inhale enough to use the Symbicort. I think going straight with albuterol as a nebulizer q. 4 hours would be helpful and stop the Atrovent. I would add on Spiriva Respimat 2 puffs every morning as well. She could have 2 puffs of that now. I think if she would have worsening hypercapnia by cutaneous CO2 monitor or blood gas looks worse or she becomes tired, then I think intubation would be indicated.
[2016-02-24] MEDS ORDERED: LEVALBUTEROL 1.25MG/0.5ML NEB INH SCH (19:45)
[2016-02-24] MEDS ORDERED: NURSING VERBAL MED ORDER ONE ×2 (19:45→21:00)
[2016-02-24 19:49] LABS: ISTAT ALLEN TEST Pass; ISTAT ARTERIAL BLOOD GAS HCO3 34 meq/L (19-24); ISTAT ARTERIAL BLOOD GAS PCO2 94 mmHg (35-46); ISTAT ARTERIAL BLOOD GAS PO2 197 mmHg (80-95); ISTAT ARTERIAL BLOOD GAS pH 7.17 (7.35-7.45); ISTAT CARBON DIOXIDE 37 mEq/l (24-31); ISTAT DELIVERY SYSTEM Ventilator; ISTAT FIO2 60 %; ISTAT PEEP 5; ISTAT RATE 12; ISTAT SITE L Radial; VE 6.5; Vt 450
[2016-02-24] MEDS ORDERED: METHYLPREDNISOLONE IV 60 MG in SYRINGE 0 ML IV SCH (20:00)
[2016-02-24] MEDS: SODIUM CHLORIDE 0.9% 1000ML 1,000 ML IV SCH (20:23)
[2016-02-24] MEDS: METHYLPREDNISOLONE IV 80 MG in SYRINGE 0 ML IV SCH (20:23)
[2016-02-24] MEDS: PANTOprazole INJ 40 MG in SYRINGE 0 ML IV SCH (20:24)
[2016-02-24] MEDS: SODIUM CHLORIDE 0.9% IV PRN (20:49)
[2016-02-24] MEDS: ROCURONIUM BROMIDE IV PRN (20:49)
[2016-02-24 21:07] LABS: ISTAT ALLEN TEST Pass; ISTAT ARTERIAL BLOOD GAS HCO3 34 meq/L (19-24); ISTAT ARTERIAL BLOOD GAS PCO2 71 mmHg (35-46); ISTAT ARTERIAL BLOOD GAS PO2 99 mmHg (80-95); ISTAT ARTERIAL BLOOD GAS pH 7.28 (7.35-7.45); ISTAT CARBON DIOXIDE 36 mEq/l (24-31); ISTAT DELIVERY SYSTEM Ventilator; ISTAT FIO2 40 %; ISTAT PEEP 5; ISTAT RATE 16; ISTAT SITE R Radial; Vt 420
[2016-02-24] MEDS: CHLORHEXIDINE GLUCONATE 0.12% 480 ML MT SCH (21:16)
[2016-02-24] MEDS: AMITRIPTYLINE HCL 10 MG TAB PO SCH (21:18)
[2016-02-24] MEDS ORDERED: ROCURONIUM BROMIDE IV SCH (21:30)
[2016-02-24] MEDS ORDERED: FENTANYL CITRATE INJ 50 MCG/1 ML 2 ML VIAL IV ONE (21:45)
[2016-02-24] MEDS: LEVOFLOXACIN / D5W 500 MG in PREMIXED IN D5W 100 ML IV SCH (22:06)
[2016-02-24] MEDS: PROPOFOL IV EMULSION 10 MG/ML 100 ML VIAL IV PRN (22:08)
[2016-02-24] MEDS: FENTANYL 1250MCG/250ML NSS 250 ML IV PRN (22:46)
[2016-02-24] MEDS: LEValbuterol HFA 15GM INHALER INH SCH (23:24)
[2016-02-24] MEDS: IPRATROPIUM BROMIDE HFA INHALER INH SCH (23:24)
--- NOTE | 2016-02-24 23:46 | Progress Note ---
Medicine Progress Note Date & Time of Visit: Feb 24, 2016 at 20:28. Subjective pt required intubation this afternoon for acute hypercarbic respiratory failure. ROS could not be obtained. Objective Last 8 Hrs Date Time Temp Pulse Resp B/P Pulse Ox O2 Delivery O2 Flow Rate FiO2 02/24/16 20:22 40 02/24/16 19:45 120 20 98 Mechanical Ventilator 02/24/16 19:26 40 02/24/16 18:00 117 125/88 95 Mechanical Ventilator 40 02/24/16 17:31 124 157/123 99 Mechanical Ventilator 40 02/24/16 17:24 131 152/84 99 Mechanical Ventilator 02/24/16 17:15 60 02/24/16 17:14 126 131/92 100 Mechanical Ventilator 02/24/16 17:11 116 126/80 95 Mechanical Ventilator 02/24/16 17:00 107 159/94 95 Mechanical Ventilator 02/24/16 16:00 98 BiPAP 30 02/24/16 15:59 145 174/125 94 BiPAP 30 02/24/16 15:00 149 02/24/16 14:27 133 32 100 BiPAP/CPAP 02/24/16 14:00 102 137/96 100 BiPAP 30 Physical Exam: GEN: obese, intubated, sedated and paralyzed HEENT: NC/AT CARDIO: tachy, S1/2 heard without m/g/r LUNGS: CTA but limited exam 2/2 intubated. ABD: soft, non-distended, no rebound or guarding EXTREMITY: no LE swelling or edema, extremities are warm and well-perfused N/M: could not be assessed as patient is sedated SKIN: warm and dry Laboratory Results: Last 24 Hours Test 02/23/16 20:30 02/23/16 20:32 02/24/16 05:58 02/24/16 05:59 Urine Random Phosphorus > 90.0 mg/dl Bedside Glucose 139 mg/dl 213 mg/dl White Blood Count 6.50 K/uL Red Blood Count 3.43 M/uL Hemoglobin 9.5 g/dL Hematocrit 30.9 % Mean Corpuscular Volume 90.1 fL Mean Corpuscular Hemoglobin 27.7 pg Mean Corpuscular Hemoglobin Concent 30.7 g/dl Platelet Count 350 K/uL Mean Platelet Volume 9.0 fL Neutrophils (%) (Auto) 75.7 % Lymphocytes (%) (Auto) 13.8 % Monocytes (%) (Auto) 10.0 % Eosinophils (%) (Auto) 0.0 % Basophils (%) (Auto) 0.0 % Neutrophils # (Auto) 4.92 K/uL Lymphocytes # (Auto) 0.90 K/uL Monocytes # (Auto) 0.65 K/uL Eosinophils # (Auto) 0.00 K/uL Basophils # (Auto) 0.00 K/uL RDW Standard Deviation 49.2 fL RDW Coefficient of Variation 14.8 % Immature Granulocyte % (Auto) 0.5 % Immature Granulocyte # (Auto) 0.03 K/uL Nucleated RBC Absolute Count (auto) 0.03 K/uL Nucleated Red Blood Cells % 0.5 % Sodium Level 141 mmol/L Potassium Level 4.2 mmol/L Chloride Level 102 mmol/L Carbon Dioxide Level 32 mmol/L Anion Gap 7.0 mmol/L Blood Urea Nitrogen 26 mg/dl Creatinine 0.85 mg/dl Est Creatinine Clear Calc Drug Dose 83.9 ml/min Estimated GFR () 85.7 Estimated GFR (Non- 74.0 BUN/Creatinine Ratio 30.5 Random Glucose 206 mg/dl Calcium Level 8.9 mg/dl Magnesium Level 2.8 mg/dl Test 02/24/16 11:20 02/24/16 15:25 02/24/16 18:47 Bedside Glucose 145 mg/dl Blood Gas Sample Site L Radial L Radial Bedside Blood Gas pH (LAB) 7.30 7.17 Bedside Blood Gas pCO2 (LAB) 73 mmHg 94 mmHg Bedside Blood Gas pO2 (LAB) 207 mmHg 197 mmHg Bedside Blood Gas HCO3 (LAB) 36 meq/L 34 meq/L Bedside Blood Gas Total CO2 38 mEq/l 37 mEq/l Bedside Blood Gas Base Excess (LAB) 9.0 meq/L 5.0 meq/L Bedside Blood Gas O2 Saturation 100.0 % 99.0 % Ziyad Test Pass Pass Oxygen Delivery Device BIPAP Ventilator Bedside Oxygen Rate (breaths/min) 12 12 Bedside FiO2 40 % 60 % Blood Gas IPAP 13 Blood Gas Minute Ventilation 6.5 Blood Gas Tidal Volume 450 Blood Gas PEEP 5 Assessment & Plan 60 yo F with a h/o COPD, DM and HTN presents with increasing shortness of breath 2/2 acute COPD exacerbation likely 2.2 acute bronchitis. Transferred to ICU 02/21 2/2 increased work of breathing. Was ambulatory the following morning in the ICU and then became SOB acutely, and was placed back on her BIPAP and given some morphine for presumed anxiety with good result. Later that evening she was off BIPAP and doing well on her home NC. Today she was retaining CO2 and required intubation with subsequent paralysis. 1. Acute on chronic hypercapnic respiratory failure2/2 COPD exacerbation. Intubated today, cont management per ICU team 2. DMII-at goal, cont ISS. Holding glimepiride and metformin while inpatient 3. GERD-cont PPI 4. HTN-controlled on losartan 5. Depression-psych eval today -no readily indentifiable depression, panic attack or TALIA present. DVT proph-Lovenox Dispo-remain in ICU while intubated. Paola Callahan DO [facility] Hospitalist Consultants: Pulm, ICU Current Inpatient Medications: Current Inpatient Medications Medications (Trade) Dose Ordered Sig/Allison Route Start Time Stop Time Status Last Admin Dose Admin Acetaminophen (Tylenol Tab) 650 mg Q4H PRN PO 02/22/16 02:15 03/23/16 02:14 Ondansetron HCl 4 mg 4 mg Q6H PRN IV 02/22/16 02:15 03/23/16 02:14 Levofloxacin/Prmx (Levaquin / D5W/ Premixed D5W) 100 ml @ 100 mls/hr Q24H IV 02/22/16 22:00 03/03/16 21:59 02/23/16 21:38 100 MLS/HR Glucose (Glucose 40% Gel) 15-30 GRAMS 15 GRAMS... UD PRN PO 02/22/16 02:15 03/23/16 02:14 Glucose (Glucose Chew Tab) 4-8 Tablets 4 Tabl... UD PRN PO 02/22/16 02:15 03/23/16 02:14 Dextrose (Dextrose 50% 50ML Syringe) 25-50ML OF 50% DW IV FOR... UD PRN IV 02/22/16 02:15 03/23/16 02:14 Glucagon (Glucagon Inj) 1 mg UD PRN SQ 02/22/16 02:15 03/23/16 02:14 Miscellaneous Information (Consult Glycemic Management Pharmacy) 1 ea UD PRN N/A 02/22/16 02:45 03/23/16 02:44 Amitriptyline HCl (Elavil Tab) 10 mg HS PO 02/22/16 21:00 03/23/16 20:59 02/23/16 20:34 10 MG Aspirin (Ecotrin Tab) 81 mg QAM PO 02/22/16 09:00 03/23/16 08:59 02/24/16 11:39 81 MG Atorvastatin Calcium (Lipitor Tab) 10 mg QAM PO 02/22/16 09:00 03/23/16 08:59 02/24/16 11:39 10 MG Fluticasone Propionate (Flonase Nasal [place]) 2 sprays BID PRN LIDYA 02/22/16 02:15 03/23/16 02:14 Gabapentin (Neurontin Cap) 100 mg TID PO 02/22/16 09:00 03/23/16 08:59 02/24/16 13:30 100 MG Acetaminophen/ Hydrocodone Bitart ([place] 5/325 Tab) 1 tab Q8 PRN PO 02/22/16 02:15 03/07/16 02:14 Losartan Potassium (coZAAR TAB) 25 mg QAM PO 02/22/16 09:00 03/23/16 08:59 02/24/16 11:38 25 MG Montelukast Sodium (Singulair Tab) 10 mg QAM PO 02/22/16 09:00 03/23/16 08:59 02/24/16 11:39 10 MG Pramipexole Dihydrochloride (miraPEX TAB) 0.5 mg BID PO 02/22/16 09:00 03/23/16 08:59 02/24/16 11:39 0.5 MG Miscellaneous Information (Order Awaiting Action) 1 ea QS N/A 02/22/16 05:30 03/23/16 05:29 Ipratropium [place] (Atrovent 0.02% 0.5MG/2.5ML Neb) 0.5 mg Q4R INH 02/22/16 04:00 03/23/16 03:59 02/24/16 14:27 0.5 MG Levalbuterol (Xopenex 1.25MG/ 0.5ML Neb) 1.25 mg Q4R INH 02/22/16 04:00 03/23/16 03:59 02/24/16 14:27 1.25 MG Ipratropium [place] (Atrovent 0.02% 0.5MG/2.5ML Neb) 0.5 mg Q2H PRN INH 02/22/16 04:00 03/23/16 03:59 02/22/16 14:03 0.5 MG Levalbuterol (Xopenex 1.25MG/ 0.5ML Neb) 1.25 mg Q2H PRN INH 02/22/16 04:00 03/23/16 03:59 02/22/16 14:03 1.25 MG Budesonide/ Formoterol Fumarate (Symbicort 160/ 4.5 Inh) 2 puffs BID INH 02/22/16 21:00 03/23/16 20:59 02/24/16 20:22 2 PUFFS Enoxaparin Sodium (Lovenox Inj) 40 mg QAM SQ 02/23/16 09:00 03/24/16 08:59 02/24/16 11:40 40 MG Diclofenac Sodium (Voltaren 1% Top Gel) 1 appln BID PRN EXT 02/23/16 20:15 03/24/16 20:14 02/23/16 21:39 1 APPLN Ioversol (Optiray 320) 95 ml UD PRN IV 02/24/16 12:00 02/28/16 11:59 Propofol (Diprivan IV 100ML VIAL) 1 dose UD PRN IV 02/24/16 16:30 02/27/16 16:29 Morphine Sulfate 4 mg 4 mg Q1H PRN IV 02/24/16 17:15 03/09/16 17:14 Rocuronium [place] 100 mg/ Sodium Chloride 100 ml @ 0 mls/hr Q0M PRN IV 02/24/16 17:30 03/25/16 17:29 Midazolam HCl 250 ml @ 0 mls/hr Q0M PRN IV 02/24/16 17:30 03/25/16 17:29 Methylprednisolone Sodium Succinate 80 mg/Syringe 1.28 ml @ 1.5 mls/min Q6H IV 02/24/16 20:00 03/25/16 19:59 02/24/16 20:23 1.5 MLS/MIN Pantoprazole Sodium/Syringe (Protonix Inj/ Syringe) 10 ml @ 5 mls/min DAILY@09,21 IV 02/24/16 21:00 03/25/16 20:59 02/24/16 20:24 5 MLS/MIN Levalbuterol 5 mg 5 mg 1945 INH 02/24/16 19:45 02/24/16 21:00 02/24/16 19:45 5 MG Sodium Chloride (Nss 1000ml) 1,000 ml @ 75 mls/hr [id number] IV 02/24/16 20:00 03/25/16 19:59 02/24/16 20:23 75 MLS/HR Chlorhexidine Gluconate (Peridex Oral Soln) 15 ml BID MT 02/24/16 21:00 03/25/16 20:59 Insulin Aspart (novoLOG ASPART) SLIDING SCALE If C... Q6 SC 02/25/16 00:00 03/26/16 00:00
[2016-02-25] VITALS (39 sets, daily range): BP systolic 130–189; BP diastolic 74–92; PULSE 104–117; TEMP 36.5–37.3; O2SAT 93–100
[2016-02-25] MEDS: PROPOFOL IV EMULSION 10 MG/ML 100 ML VIAL IV PRN ×8 (00:26→21:28)
[2016-02-25] MEDS: INSULIN ASPART 100 UNITS/ML 3 ML PEN SC SCH ×5 (00:31→23:50)
[2016-02-25] MEDS: ROCURONIUM BROMIDE IV PRN ×9 (00:57→23:00)
[2016-02-25] MEDS: SODIUM CHLORIDE 0.9% IV PRN ×9 (00:57→23:00)
[2016-02-25] MEDS: METHYLPREDNISOLONE IV 80 MG in SYRINGE 0 ML IV SCH ×4 (01:34→20:33)
[2016-02-25] MEDS: LEValbuterol HFA 15GM INHALER INH SCH ×2 (03:34→07:30)
[2016-02-25] MEDS: IPRATROPIUM BROMIDE HFA INHALER INH SCH ×5 (03:34→23:05)
[2016-02-25 05:56] LABS: HEMATOCRIT 31.2 % (37-47); MEAN CELL VOLUME 91.8 fL (80-100); MEAN CORPUSCULAR HEMOGLOBIN 27.4 pg (25-34); MEAN CORPUSCULAR HGB CONC 29.8 g/dl (32-36); PLATELET COUNT 334 K/uL (130-400); WHITE BLOOD COUNT 6.64 K/uL (4.8-10.8)
[2016-02-25] MEDS: MIDAZOLAM 125MG/250ML D5W 250 ML IV PRN (06:43)
[2016-02-25 06:48] LABS: BUN/CREATININE RATIO 27.3 (10-20); CALCIUM 8.2 mg/dl (8.5-10.1); CREATININE 0.75 mg/dl (0.60-1.20); MAGNESIUM 3.1 mg/dl (1.8-2.4)
[2016-02-25] MEDS: BUDESONIDE/FORMOTEROL FUMARATE 160/4.5 60 PUFFS/INHALER INH SCH ×2 (07:45→19:32)
[2016-02-25] MEDS ORDERED: ALBUTEROL 0.083% NEBU SOLN 3 ML VIAL INH PRN (07:45)
--- NOTE | 2016-02-25 07:46 | PULMONARY PROGRESS NOTE ---
DATE: 02/25/2016 The patient was intubated last night without difficulty and has been stable. She remains acidotic although the blood gas for this morning is pending. She is sedated with fentanyl. Vent settings include tidal volume of about 600 mL, respiratory rate is 16 40% FIO2 and repeat pressures are about 25-30. She is comfortable at the present time. Endotracheal tube is 22 cm at the teeth. No subcutaneous emphysema is noted. PHYSICAL EXAMINATION: HEART: Regular rate and rhythm. Heart sounds are distant. LUNGS: Revealed decreased breath sounds with no wheezing. ABDOMEN: Soft and obese, nontender. EXTREMITIES: She has no edema. LABORATORY DATA: PRP is pending. Glucose is 197. Blood gas last night at 2055 hours revealed a pH 7.28, pCO2 of 71, pO2 of 99. Serology for influenza was negative. White count 6.6, H\T\H 9.3 and 31.2%. Platelet count 334,000. Her weight is stable 113.4 kilograms. She was 114.4 on the 25th. According nurses' notes the patient is stable. IMPRESSION: 1. Respiratory failure secondary to emphysema. 2. Obesity. RECOMMENDATIONS: 1. Continue with ventilator support with a slow wean. 2. Good glucose control. I would continue on the Xopenex and Atrovent high dose steroids. 3. Good DVT prophylaxis with Lovenox and SCDs. 4. Continue on the Levaquin and finish that out over just a 7-day course. It could be finished on the or 01 of March. I think amitriptyline could be discontinued. I believe the Singulair could be discontinued now as well. Overall from a respiratory standpoint she is stable. We will await the morning blood gas as well.
[2016-02-25 07:52] LABS: ISTAT ALLEN TEST Pass; ISTAT ARTERIAL BLOOD GAS HCO3 37 meq/L (19-24); ISTAT ARTERIAL BLOOD GAS PCO2 88 mmHg (35-46); ISTAT ARTERIAL BLOOD GAS PO2 84 mmHg (80-95); ISTAT ARTERIAL BLOOD GAS pH 7.23 (7.35-7.45); ISTAT CARBON DIOXIDE > 40 mEq/l (24-31); ISTAT DELIVERY SYSTEM Ventilator; ISTAT FIO2 40 %; ISTAT PEEP 5; ISTAT RATE 16; ISTAT SITE L Radial; VE 6.72; Vt 420
[2016-02-25] MEDS ORDERED: ALBUTEROL 0.083% NEBU SOLN 3 ML VIAL INH SCH (08:00)
[2016-02-25 08:21] LABS: ALKALINE PHOSPHATASE 61 U/L (45-117); ALT/SGPT 48 U/L (12-78); AST/SGOT 29 U/L (15-37)
[2016-02-25] MEDS: SODIUM CHLORIDE 0.9% 1000ML 1,000 ML IV SCH (08:55)
[2016-02-25] MEDS: CHLORHEXIDINE GLUCONATE 0.12% 480 ML MT SCH ×2 (08:56→21:25)
[2016-02-25] MEDS: PANTOprazole INJ 40 MG in SYRINGE 0 ML IV SCH ×2 (08:56→20:33)
[2016-02-25] MEDS: ATORVASTATIN 10 MG TAB PO SCH (08:57)
[2016-02-25] MEDS: ASPIRIN 81 MG ECTAB PO SCH (08:57)
[2016-02-25] MEDS: MONTELUKAST SOD 10 MG TAB PO SCH (08:58)
[2016-02-25] MEDS: LOSARTAN POTASSIUM 25 MG TAB PO SCH (08:58)
[2016-02-25] MEDS: PRAMIPEXOLE DIHYDROCHLORIDE 0.5 MG TAB PO SCH ×2 (08:58→21:26)
[2016-02-25] MEDS: GABAPENTIN 100 MG CAP PO SCH ×3 (08:59→21:26)
[2016-02-25] MEDS: ENOXAPARIN 40 MG/0.4 ML SYR SQ SCH (09:00)
[2016-02-25 09:12] LABS: ISTAT ALLEN TEST Pass; ISTAT ARTERIAL BLOOD GAS HCO3 36 meq/L (19-24); ISTAT ARTERIAL BLOOD GAS PCO2 78 mmHg (35-46); ISTAT ARTERIAL BLOOD GAS PO2 99 mmHg (80-95); ISTAT ARTERIAL BLOOD GAS pH 7.27 (7.35-7.45); ISTAT CARBON DIOXIDE 39 mEq/l (24-31); ISTAT DELIVERY SYSTEM Ventilator; ISTAT FIO2 40 %; ISTAT PEEP 5; ISTAT RATE 20; ISTAT SITE L Radial; VE 8.4; Vt 420
[2016-02-25 09:48] LABS: BUN/CREATININE RATIO 22.7 (10-20); CALCIUM 7.1 mg/dl (8.5-10.1); CREATININE 0.74 mg/dl (0.60-1.20); POTASSIUM 4.6 mmol/L (3.5-5.1)
--- NOTE | 2016-02-25 10:44 | DIAGNOSTIC IMAGING REPORT ---
CHEST ONE VIEW PORTABLE CLINICAL HISTORY: respiratory failure dyspnea. Tube position. COMPARISON STUDY: 02/24/2016 FINDINGS: Endotracheal tube 2 cm above the romina. Lungs remain grossly clear. Minimal atelectasis medial right base. IMPRESSION: Stable exam of the chest. Endotracheal tube in good position. Minimal atelectasis medial right base. Electronically signed by: Fuentes Lewis M.D. 02/25/2016 10:42 AM
[2016-02-25] MEDS ORDERED: ALBUTEROL HFA 8 GM INHALER INH PRN (10:45)
[2016-02-25 12:46] LABS: ISTAT ALLEN TEST Pass; ISTAT ARTERIAL BLOOD GAS HCO3 35 meq/L (19-24); ISTAT ARTERIAL BLOOD GAS PCO2 64 mmHg (35-46); ISTAT ARTERIAL BLOOD GAS PO2 87 mmHg (80-95); ISTAT ARTERIAL BLOOD GAS pH 7.35 (7.35-7.45); ISTAT CARBON DIOXIDE 37 mEq/l (24-31); ISTAT DELIVERY SYSTEM Ventilator; ISTAT FIO2 40 %; ISTAT PEEP 5; ISTAT RATE 22; ISTAT SITE L Radial; VE 9.2; Vt 450
--- NOTE | 2016-02-25 13:38 | Pharmacy Progress Note ---
Glycemic Control: Progress Nt Date of Service Feb 25, 2016. Scope Glycemic Pharmacist consulted by Dr Murillo on 02/21 for glycemic control and to write orders per [facility] inpatient glycemic control protocol. Objective Accuchecks BSG (last 24hrs): Test 02/25/16 00:28 02/25/16 05:29 02/25/16 05:37 02/25/16 09:08 Bedside Glucose 203 mg/dl (70-90) 197 mg/dl (70-90) Random Glucose 200 mg/dl (70-99) 224 mg/dl (70-99) Laboratory Data (last 24hrs) Test 02/25/16 05:29 02/25/16 09:08 Anion Gap 5.0 mmol/L 4.0 mmol/L BUN/Creatinine Ratio 27.3 22.7 Blood Urea Nitrogen 21 mg/dl 17 mg/dl Creatinine 0.75 mg/dl 0.74 mg/dl Potassium Level 5.0 mmol/L 4.6 mmol/L Sodium Level 143 mmol/L 142 mmol/L White Blood Count 6.64 K/uL HbA1c: Test 02/23/16 05:32 Hemoglobin A1c 6.7 % (4.5-5.6) H Recent Pertinent Medications Outpatient Anti-diabetic Regimen: * Glimepiride 0.5mg PO Q AM * Metformin 1000mg PO BID * A1c = 6.7 % on 02/23/16 The patient is currently receiving: * Basal insulin: None * Correctional Insulin: Novolog Correction per scale ACHS Goal Range: Low 120 mg/dL - High 160 mg/dL Correction Factor: 25 mg/dL/unit * Prandial insulin: Per carb ratio of 1 unit per 9 grams CHO consumed * Oral Agents: None currently Risk Factors for Insulin Resistance: * Steroids: Solu-Medrol increased to 80mg IV Q 6 hours * Infection: COPD exac failing out-pt Augmentin; receiving Levofloxacin IV * Diet: Changed to NPO * Mechanical ventilation: YES Assessment & Plan ASSESSMENT: * ADA & AACE recommend a goal blood sugar range 140-180 mg/dl for the majority of critically ill & non-critically ill patients. However, more stringent targets may be selected in individual cases. 02/24/16 * BSG elevated to 213 mg/dL this AM 2nd pt eating dinner 02/22 @ ~2014 (per RN note) but no insulin admin. Post-prandial elevations in pts on steroids can be significant. * She has been admitted in the past and received SQ Novolog (CF + CR) alone to control hyperglycemia while on IV steroids; she was not given basal insulin or her oral hypoglycemics. * Will not continue Lantus at this time * Will instead slightly decrease goal range of Novolog and slightly tighten carb ratio 02/25/16 * Patient electively intubated last night, steroids increased, and made NPO. * Patient has required Lantus while significantly more stressed this admission. However, will wait to add on until BSG's are trending up significantly as pt is now NPO (and will give 50% of dose that pt received prior) * Will increase goal range to ensure pt does not become hypoglycemic while acutely ill PLAN FOR INPATIENT GLYCEMIC CONTROL: * Continue to hold outpatient oral diabetes medications * Resume basal insulin with Lantus 4 units SC x1 this PM if BSG's > 200 mg/dL * Correctional Insulin with NOVOLOG per scale ACHS or Q6hrs while NPO * Increase Goal Range: Low 140 mg/dL - High 180 mg/dL * Correction Factor: 25 mg/dL/unit * Nutritional / Prandial insulin per carb ratio of 1 unit per 9 grams CHO consumed * Please note that the plan above was derived based on current level of insulin resistance and hospital stress. These recommendations are appropriate for inpatient admission only. Plan of care upon discharge will need to be reassessed to avoid potential outpatient hypo/hyperglycemia. Thank you.
[2016-02-25] MEDS: ALBUTEROL HFA 8 GM INHALER INH SCH ×3 (14:30→23:05)
--- NOTE | 2016-02-25 14:53 | CRITICAL CARE PROGRESS NOTE ---
DATE: 02/25/2016 SUBJECTIVE: The patient's care was discussed in detail on multidisciplinary rounds today. After intubation last night, she required paralysis with rocuronium secondary to ventilator dyssynchrony and concern for high airway pressures. Today, she remains critically ill and on the ventilator. She is on a fentanyl drip at 50 mcg an hour, Versed at 5 mg per hour, propofol 50 mcg per kilogram and a rocuronium infusion. Her train of fours has been 2-3/4. She is not having any significant endotracheal tube secretions and has not had a bowel movement overnight. PHYSICAL EXAMINATION: VITAL SIGNS: Maximum temperature 37, heart rate low 100s, respiratory rate 20, blood pressure 130-170/80s-90s, oxygen saturation 100% on 40% FIO2. 24-hour fluid balance, positive 356 mL. Ventilator settings: Assist control, rate 22, tidal volume 450, FiO2 40%, PEEP 5. GENERAL: She is unresponsive and paralyzed. NEUROLOGIC: Pupils are a bit difficult to examine and may be minimally reactive. They are equal bilaterally. LUNGS: Have very diminished breath sounds throughout, particularly in the bases. I do not hear any wheezing. HEART: Tachycardic and regular. ABDOMEN: Obese, soft, nondistended. No bowel sounds. EXTREMITIES: Warm with trace edema in the hands. No edema in the feet. SCDs are in place. LABORATORY DATA: White blood cell count 6.6, hemoglobin 9.3, hematocrit 31.2, platelets 334. Most recent arterial blood gas: pH 7.353, pCO2 63, pO2 87, HCO3 35.4. Sodium 142, potassium 4.6, chloride 104, CO2 34, BUN 17, creatinine 0.74, calcium 7.1. LFTs within normal limits. Albumin 3.1. Portable chest x-ray from this morning was reviewed and shows the endotracheal tube to be in satisfactory position. Lungs are clear. There is no new microbiology data. MEDICATIONS AND INFUSIONS: Acetaminophen, [place], albuterol, Elavil, aspirin, Lipitor, Symbicort, chlorhexidine, Voltaren, Lovenox, fentanyl, gabapentin, insulin sliding scale, Atrovent, Levaquin day 4, Cozaar, Solu-Medrol, Versed, Zofran, Protonix, Mirapex, propofol, rocuronium, normal saline. IMPRESSION: 1. Acute on chronic hypercapnic respiratory failure. 2. Acute exacerbation of emphysema. 3. Diabetes mellitus with hyperglycemia. The pharmacy is adjusting her insulin and is consulting in her care. 4. History of gastroesophageal reflux disease. 5. History of hyperlipidemia. 6. History of tobacco use. PLAN: NEUROLOGIC: Continue sedation and analgesia with propofol, Versed and fentanyl. She has required neuromuscular blockade secondary to dyssynchrony with the ventilator and high peak airway pressures. Plan for stopping the paralytic tomorrow as she has not been on it yet for 24 hours and we have just made some better progress as far as her hypercapnia goes. PULMONARY: The ventilator has been adjusted several times this morning. Her arterial blood gas has improved. Her breath sounds are better today. Continue albuterol and Atrovent via inhaler q. 4 hours. Continue intravenous steroids. Discontinue Singulair. Continue Symbicort. Dr. Younger's recommendations are very much appreciated. Her lungs are stiff; however, her peak airway pressures are in the mid 30s on her present ventilator settings. I will also look to see if I can find some more recent pulmonary function tests. I would like to do a CT scan of her chest but do not want to risk respiratory decompensation during transport to the CT scanner. Reevaluate that tomorrow. CARDIOVASCULAR: Tachycardia has improved. Continue aspirin and Cozaar. GASTROINTESTINAL: She is on GI prophylaxis. Hold on tube feeds for today. ENDOCRINE: The pharmacy is adjusting her insulin. RENAL: No acute issues. Watch volume status. INFECTIOUS DISEASE: No issues presently. Maintain head of bed at 30 degrees, chlorhexidine for ventilator associated pneumonia prophylaxis. HEME: She is anemic. There are no signs of acute blood loss. Continue to follow. She is on DVT prophylaxis with Lovenox. I discussed her care in detail with her niece and daughter. They were concerned about paralysis and asked me who gave permission for her to be paralyzed. I tried to explain to them the medical necessity of paralysis in this patient's case. I answered questions and provided support. Critical care time 40 minutes. EDUARDA
[2016-02-25 17:25] LABS: ISTAT ALLEN TEST Pass; ISTAT ARTERIAL BLOOD GAS HCO3 36 meq/L (19-24); ISTAT ARTERIAL BLOOD GAS PCO2 63 mmHg (35-46); ISTAT ARTERIAL BLOOD GAS PO2 84 mmHg (80-95); ISTAT ARTERIAL BLOOD GAS pH 7.36 (7.35-7.45); ISTAT CARBON DIOXIDE 38 mEq/l (24-31); ISTAT DELIVERY SYSTEM Ventilator; ISTAT FIO2 40 %; ISTAT PEEP 5; ISTAT RATE 22; ISTAT SITE R Radial; VE 9.2; Vt 450
[2016-02-25] MEDS ORDERED: LANTUS PER UNIT CHARGE SQ ONE (18:00)
--- NOTE | 2016-02-25 21:24 | Progress Note ---
Medicine Progress Note Date & Time of Visit: Feb 25, 2016 at 21:16. Objective Last 8 Hrs Date Time Temp Pulse Resp B/P Pulse Ox O2 Delivery O2 Flow Rate FiO2 02/25/16 20:00 40 02/25/16 20:00 Mechanical Ventilator 02/25/16 20:00 37.0 111 22 161/80 99 Mechanical Ventilator 40 02/25/16 19:32 40 02/25/16 18:00 115 20 174/89 97 Mechanical Ventilator 40 02/25/16 17:20 40 02/25/16 16:00 37.3 108 20 140/79 96 Mechanical Ventilator 40 02/25/16 16:00 40 02/25/16 14:21 40 Physical Exam: GEN: obese, intubated, sedated and paralyzed HEENT: NC/AT CARDIO: tachy, S1/2 heard without m/g/r LUNGS: CTA but limited exam 2/2 intubated. ABD: soft, non-distended, no rebound or guarding EXTREMITY: no LE swelling or edema, extremities are warm and well-perfused N/M: could not be assessed as patient is sedated SKIN: warm and dry Laboratory Results: Last 24 Hours Test 02/25/16 00:28 02/25/16 05:29 02/25/16 05:37 02/25/16 07:38 Bedside Glucose 203 mg/dl 197 mg/dl White Blood Count 6.64 K/uL Red Blood Count 3.40 M/uL Hemoglobin 9.3 g/dL Hematocrit 31.2 % Mean Corpuscular Volume 91.8 fL Mean Corpuscular Hemoglobin 27.4 pg Mean Corpuscular Hemoglobin Concent 29.8 g/dl RDW Standard Deviation 50.2 fL RDW Coefficient of Variation 14.8 % Platelet Count 334 K/uL Mean Platelet Volume 9.0 fL Nucleated RBC Absolute Count (auto) 0.05 K/uL Nucleated Red Blood Cells % 0.7 % Sodium Level 143 mmol/L Potassium Level 5.0 mmol/L Chloride Level 103 mmol/L Carbon Dioxide Level 35 mmol/L Anion Gap 5.0 mmol/L Blood Urea Nitrogen 21 mg/dl Creatinine 0.75 mg/dl Est Creatinine Clear Calc Drug Dose 93.8 ml/min Estimated GFR () 99.7 Estimated GFR (Non- 86.0 BUN/Creatinine Ratio 27.3 Random Glucose 200 mg/dl Calcium Level 8.2 mg/dl Magnesium Level 3.1 mg/dl Total Bilirubin 0.1 mg/dl Direct Bilirubin < 0.1 mg/dl Aspartate Amino Transf (AST/SGOT) 29 U/L Alanine Aminotransferase (ALT/SGPT) 48 U/L Alkaline Phosphatase 61 U/L Total Protein 6.6 gm/dl Albumin 3.1 gm/dl Blood Gas Sample Site L Radial Bedside Blood Gas pH (LAB) 7.23 Bedside Blood Gas pCO2 (LAB) 88 mmHg Bedside Blood Gas pO2 (LAB) 84 mmHg Bedside Blood Gas HCO3 (LAB) 37 meq/L Bedside Blood Gas Total CO2 > 40 mEq/l Bedside Blood Gas Base Excess (LAB) 9.0 meq/L Bedside Blood Gas O2 Saturation 94.0 % Ziyad Test Pass Oxygen Delivery Device Ventilator Bedside Oxygen Rate (breaths/min) 16 Blood Gas Minute Ventilation 6.72 Bedside FiO2 40 % Blood Gas Tidal Volume 420 Blood Gas PEEP 5 Test 02/25/16 08:58 02/25/16 09:08 02/25/16 12:25 02/25/16 17:12 Blood Gas Sample Site L Radial L Radial R Radial Bedside Blood Gas pH (LAB) 7.27 7.35 7.36 Bedside Blood Gas pCO2 (LAB) 78 mmHg 64 mmHg 63 mmHg Bedside Blood Gas pO2 (LAB) 99 mmHg 87 mmHg 84 mmHg Bedside Blood Gas HCO3 (LAB) 36 meq/L 35 meq/L 36 meq/L Bedside Blood Gas Total CO2 39 mEq/l 37 mEq/l 38 mEq/l Bedside Blood Gas Base Excess (LAB) 9.0 meq/L 10.0 meq/L 10.0 meq/L Bedside Blood Gas O2 Saturation 96.0 % 96.0 % 96.0 % Ziyad Test Pass Pass Pass Oxygen Delivery Device Ventilator Ventilator Ventilator Bedside Oxygen Rate (breaths/min) 20 22 22 Blood Gas Minute Ventilation 8.4 9.2 9.2 Bedside FiO2 40 % 40 % 40 % Blood Gas Tidal Volume 420 450 450 Blood Gas PEEP 5 5 5 Sodium Level 142 mmol/L Potassium Level 4.6 mmol/L Chloride Level 104 mmol/L Carbon Dioxide Level 34 mmol/L Anion Gap 4.0 mmol/L Blood Urea Nitrogen 17 mg/dl Creatinine 0.74 mg/dl Est Creatinine Clear Calc Drug Dose 95.1 ml/min Estimated GFR () 101.3 Estimated GFR (Non- 87.4 BUN/Creatinine Ratio 22.7 Random Glucose 224 mg/dl Calcium Level 7.1 mg/dl Assessment & Plan 60 yo F with a h/o COPD, DM and HTN presents with increasing shortness of breath 2/2 acute COPD exacerbation likely 2.2 acute bronchitis. She was subsequently intubated and paralyzed on 02/23 1. Acute on chronic hypercapnic respiratory failure2/2 COPD exacerbation. Intubated , cont management per ICU team including IV steroids. Pt still wheezing on exam. 2. DMII-at goal, holding ISS while NPO and intubated. ICU team considering feeding tomorrow. Glycemic pharmacist assisting with insulin. 3. GERD-cont PPI 4. HTN-controlled on losartan 5. Depression-psych eval today -no readily identifiable depression, panic attack or TALIA present. 6. Anemia-baseline 12 and currently but stable in 9s. No evidence of bleeding , likely multifactorial including frequent phlebotomy. Pt was already decreased prior to admission DVT proph-Lovenox Dispo-remain in ICU while intubated. Paola Callahan DO [facility] Hospitalist Consultants: Pulm, ICU Current Inpatient Medications: Current Inpatient Medications Medications (Trade) Dose Ordered Sig/Allison Route Start Time Stop Time Status Last Admin Dose Admin Acetaminophen (Tylenol Tab) 650 mg Q4H PRN PO 02/22/16 02:15 03/23/16 02:14 Ondansetron HCl 4 mg 4 mg Q6H PRN IV 02/22/16 02:15 03/23/16 02:14 Levofloxacin/Prmx (Levaquin / D5W/ Premixed D5W) 100 ml @ 100 mls/hr Q24H IV 02/22/16 22:00 03/03/16 21:59 02/24/16 22:06 100 MLS/HR Glucose (Glucose 40% Gel) 15-30 GRAMS 15 GRAMS... UD PRN PO 02/22/16 02:15 03/23/16 02:14 Glucose (Glucose Chew Tab) 4-8 Tablets 4 Tabl... UD PRN PO 02/22/16 02:15 03/23/16 02:14 Dextrose (Dextrose 50% 50ML Syringe) 25-50ML OF 50% DW IV FOR... UD PRN IV 02/22/16 02:15 03/23/16 02:14 Glucagon (Glucagon Inj) 1 mg UD PRN SQ 02/22/16 02:15 03/23/16 02:14 Miscellaneous Information (Consult Glycemic Management Pharmacy) 1 ea UD PRN N/A 02/22/16 02:45 03/23/16 02:44 Amitriptyline HCl (Elavil Tab) 10 mg HS PO 02/22/16 21:00 03/23/16 20:59 02/24/16 21:18 10 MG Aspirin (Ecotrin Tab) 81 mg QAM PO 02/22/16 09:00 03/23/16 08:59 02/25/16 08:57 81 MG Atorvastatin Calcium (Lipitor Tab) 10 mg QAM PO 02/22/16 09:00 03/23/16 08:59 02/25/16 08:57 10 MG Gabapentin (Neurontin Cap) 100 mg TID PO 02/22/16 09:00 03/23/16 08:59 02/25/16 14:27 100 MG Acetaminophen/ Hydrocodone Bitart ([place] 5/325 Tab) 1 tab Q8 PRN PO 02/22/16 02:15 03/07/16 02:14 Losartan Potassium (coZAAR TAB) 25 mg QAM PO 02/22/16 09:00 03/23/16 08:59 02/25/16 08:58 25 MG Pramipexole Dihydrochloride (miraPEX TAB) 0.5 mg BID PO 02/22/16 09:00 03/23/16 08:59 02/25/16 08:58 0.5 MG Miscellaneous Information (Order Awaiting Action) 1 ea QS N/A 02/22/16 05:30 03/23/16 05:29 Budesonide/ Formoterol Fumarate (Symbicort 160/ 4.5 Inh) 2 puffs BID INH 02/22/16 21:00 03/23/16 20:59 02/25/16 19:32 2 PUFFS Enoxaparin Sodium (Lovenox Inj) 40 mg QAM SQ 02/23/16 09:00 03/24/16 08:59 02/25/16 09:00 40 MG Diclofenac Sodium (Voltaren 1% Top Gel) 1 appln BID PRN EXT 02/23/16 20:15 03/24/16 20:14 02/23/16 21:39 1 APPLN Ioversol (Optiray 320) 95 ml UD PRN IV 02/24/16 12:00 02/28/16 11:59 Propofol 1 dose 1 dose UD PRN IV 02/24/16 16:30 02/27/16 16:29 02/25/16 18:10 1 DOSE Rocuronium [place] 100 mg/ Sodium Chloride 100 ml @ 0 mls/hr Q0M PRN IV 02/24/16 17:30 03/25/16 17:29 02/25/16 20:32 41 MLS/HR Midazolam HCl 250 ml @ 0 mls/hr Q0M PRN IV 02/24/16 17:30 03/25/16 17:29 02/25/16 06:43 10 MLS/HR Methylprednisolone Sodium Succinate 80 mg/Syringe 1.28 ml @ 1.5 mls/min Q6H IV 02/24/16 20:00 03/25/16 19:59 02/25/16 20:33 1.5 MLS/MIN Pantoprazole Sodium 40 mg/ Syringe 10 ml @ 5 mls/min DAILY@09,21 IV 02/24/16 21:00 03/25/16 20:59 02/25/16 20:33 5 MLS/MIN Sodium Chloride (Nss 1000ml) 1,000 ml @ 50 mls/hr Q20H IV 02/24/16 20:00 02/25/16 08:55 75 MLS/HR Chlorhexidine Gluconate (Peridex Oral Soln) 15 ml BID MT 02/24/16 21:00 03/25/16 20:59 02/25/16 08:56 15 ML Insulin Aspart SLIDING SCALE If C... Q6 SC 02/25/16 00:00 03/26/16 00:00 02/25/16 05:41 2 UNITS Fentanyl Citrate (Fentanyl Drip 1250MCG/250 Nss) 250 ml @ 0 mls/hr Q0M PRN IV 02/24/16 21:45 03/09/16 21:44 02/24/16 22:46 10 MLS/HR Ipratropium [place] (Atrovent Hfa Inhaler) 8 puffs Q4R INH 02/25/16 13:15 03/26/16 13:14 12/29/16 19:32 8 PUFFS Albuterol (Ventolin Hfa Inhaler) 8 puffs Q4R INH 02/25/16 13:15 03/26/16 13:14 02/25/16 19:32 8 PUFFS Albuterol (Ventolin Hfa Inhaler) 4 puffs Q2R PRN INH 02/25/16 10:45 03/26/16 10:44
[2016-02-25] MEDS: AMITRIPTYLINE HCL 10 MG TAB PO SCH (21:26)
[2016-02-25] MEDS: LEVOFLOXACIN / D5W 500 MG in PREMIXED IN D5W 100 ML IV SCH (21:26)
[2016-02-26] VITALS (29 sets, daily range): BP systolic 113–178; BP diastolic 67–97; PULSE 73–111; TEMP 36.6–37.1; O2SAT 96–100
[2016-02-26] MEDS: PROPOFOL IV EMULSION 10 MG/ML 100 ML VIAL IV PRN ×7 (00:10→21:41)
[2016-02-26] MEDS: ROCURONIUM BROMIDE IV PRN ×3 (01:09→18:17)
[2016-02-26] MEDS: SODIUM CHLORIDE 0.9% IV PRN ×3 (01:09→18:17)
[2016-02-26] MEDS: SODIUM CHLORIDE 0.9% 1000ML 1,000 ML IV SCH (01:32)
[2016-02-26] MEDS: METHYLPREDNISOLONE IV 80 MG in SYRINGE 0 ML IV SCH ×4 (01:32→19:32)
[2016-02-26] MEDS: IPRATROPIUM BROMIDE HFA INHALER INH SCH ×6 (03:44→23:05)
[2016-02-26] MEDS: ALBUTEROL HFA 8 GM INHALER INH SCH ×6 (03:44→23:05)
[2016-02-26] MEDS: FENTANYL 1250MCG/250ML NSS 250 ML IV PRN (04:57)
[2016-02-26] MEDS: INSULIN ASPART 100 UNITS/ML 3 ML PEN SC SCH ×4 (05:42→23:42)
[2016-02-26 06:15] LABS: BASO % 0.2 %; BASO ABS # 0.01 K/uL (0-0.2); HEMATOCRIT 28.4 % (37-47); IG% 0.7 %; LYMPH % 10.4 %; LYMPH ABS # 0.63 K/uL (1.2-3.4); MEAN CELL VOLUME 90.7 fL (80-100); MEAN CORPUSCULAR HEMOGLOBIN 27.8 pg (25-34); MEAN CORPUSCULAR HGB CONC 30.6 g/dl (32-36); MEAN PLATELET VOLUME 8.7 fL (7.4-10.4); MONO % 9.1 %; NEUT % 79.6 %; PLATELET COUNT 290 K/uL (130-400); RED BLOOD COUNT 3.13 M/uL (4.2-5.4); WHITE BLOOD COUNT 6.07 K/uL (4.8-10.8)
[2016-02-26 06:49] LABS: BUN/CREATININE RATIO 26.5 (10-20); CALCIUM 7.4 mg/dl (8.5-10.1); CREATININE 0.75 mg/dl (0.60-1.20); PHOSPHORUS 2.8 mg/dl (2.5-4.9); POTASSIUM 4.3 mmol/L (3.5-5.1)
--- NOTE | 2016-02-26 07:14 | DIAGNOSTIC IMAGING REPORT ---
CHEST ONE VIEW PORTABLE CLINICAL HISTORY: respiratory failure dyspnea COMPARISON STUDY: 02/25/2016 FINDINGS: Endotracheal tube positioned 2.5 cm with a chronic. Central catheters. Vena cava. Improved aeration both lungs with no focal infiltrate. IMPRESSION: Lungs are grossly clear. Endotracheal tube 2.5 cm above the romina. Electronically signed by: Fuentes Lewis M.D. 02/26/2016 7:12 AM
[2016-02-26 07:24] LABS: COMPLETE YES; POLYCHROMASIA 1+
--- NOTE | 2016-02-26 07:41 | PULMONARY PROGRESS NOTE ---
DATE: 02/26/2016 The patient stayed on the ventilator and very comfortable. Her rhythm strips have been good with a sinus tachycardia. PHYSICAL EXAMINATION: VITAL SIGNS: Blood pressure has been a bit elevated 166/86, respiratory rate is 20 on a ventilator. Peak airway pressures are about 30-35. Oxygen saturations 100% on 40% FIO2. Sputum appears to be relatively clear. NG tubes in place. Weight 113.5 kilograms. She was 116 on the 27th. According to nurses' note she had a fairly good stable night last night. Has tolerated the sedation and paralytic agents fairly well. HEENT: Nose exam unremarkable. There is no subcutaneous emphysema. NECK: Veins could not be evaluated because of the obesity. No adenopathy noted. HEART: Regular rate and rhythm. LUNGS: Continue to reveals some very mild wheezing with expiration. ABDOMEN: Soft, obese, nontender. SCDs are in place. LABORATORY DATA: White count 6.07, hemoglobin and hematocrit 8.7 and 28.4% with platelet count 290,000 with an unremarkable differential. PRP looked good with a CO2 of 34, glucose is in the 192-224 range. Magnesium slightly elevated at 3. Blood gas last night at 5:12 revealed the pH 7.36, pCO2 of 63, pO2 84 on mini-ventilation 9.2 liters. IMPRESSION: Respiratory failure secondary to severe chronic obstructive lung disease with exacerbation. Certainly her obesity is complicating the respiratory insufficiency as well. She may have ACOS which is the syndrome of asthma and chronic obstructive lung disease, hence the wheezing. Chest x-ray today looked good. Endotracheal tube is about 2 inches above the romina. No pneumothorax is noted. Central line is in good position in the right subclavian area. Slight elevation of the left hemidiaphragm is noted but I do not detect any significant infiltrates. RECOMMENDATIONS: At this point I would attempt weaning. Perhaps placing her on pressure support and CPAP will be helpful when she is awake and off the paralytic agents. She may need some sedation when she comes out of the sleep. Checking gram stain SMASH PIECER may be helpful as well of the sputum. Overall, she is stable. I will ask Dr. Solis to help follow along since he will be covering pulmonary starting tomorrow morning.
[2016-02-26] MEDS ORDERED: LABETALOL HCL IV 5 MG/ML 20ML IV PRN (08:00)
[2016-02-26] MEDS: BUDESONIDE/FORMOTEROL FUMARATE 160/4.5 60 PUFFS/INHALER INH SCH ×2 (08:04→19:45)
[2016-02-26 09:03] LABS: ISTAT ALLEN TEST Pass; ISTAT ARTERIAL BLOOD GAS HCO3 35 meq/L (19-24); ISTAT ARTERIAL BLOOD GAS PCO2 65 mmHg (35-46); ISTAT ARTERIAL BLOOD GAS PO2 97 mmHg (80-95); ISTAT ARTERIAL BLOOD GAS pH 7.34 (7.35-7.45); ISTAT CARBON DIOXIDE 37 mEq/l (24-31); ISTAT DELIVERY SYSTEM Ventilator; ISTAT FIO2 40 %; ISTAT PEEP 5; ISTAT RATE 22; ISTAT SITE L Radial; VE 9; Vt 450
[2016-02-26] MEDS: ASPIRIN 81 MG ECTAB PO SCH (09:46)
[2016-02-26] MEDS: ATORVASTATIN 10 MG TAB PO SCH (09:46)
[2016-02-26] MEDS: LOSARTAN POTASSIUM 25 MG TAB PO SCH (09:47)
[2016-02-26] MEDS: PRAMIPEXOLE DIHYDROCHLORIDE 0.5 MG TAB PO SCH ×2 (09:48→20:15)
[2016-02-26] MEDS: GABAPENTIN 100 MG CAP PO SCH ×3 (09:48→20:15)
[2016-02-26] MEDS: ENOXAPARIN 40 MG/0.4 ML SYR SQ SCH (09:48)
[2016-02-26] MEDS: CHLORHEXIDINE GLUCONATE 0.12% 480 ML MT SCH ×2 (09:50→19:36)
[2016-02-26] MEDS: PANTOprazole INJ 40 MG in SYRINGE 0 ML IV SCH ×2 (10:06→19:32)
[2016-02-26] MEDS: MIDAZOLAM 125MG/250ML D5W 250 ML IV PRN ×2 (10:07→23:28)
[2016-02-26] MEDS ORDERED: ROCURONIUM BROMIDE 10 MG/ML 5 ML VIAL IV STA (11:51)
[2016-02-26] MEDS: METOPROLOL TARTRATE 1 MG/ML VIAL IV. SCH ×3 (11:59→23:40)
[2016-02-26] MEDS ORDERED: NURSING VERBAL MED ORDER ONE ×2 (12:00→16:15)
--- NOTE | 2016-02-26 13:36 | Pharmacy Progress Note ---
Glycemic Control: Progress Nt Date of Service Feb 26, 2016. Scope Glycemic Pharmacist consulted by Dr Murillo on 02/22/16 for glycemic control and to write orders per [facility] inpatient glycemic control protocol. Objective Accuchecks BSG (last 24hrs): Test 02/26/16 05:39 02/26/16 06:03 Bedside Glucose 165 mg/dl (70-90) Random Glucose 192 mg/dl (70-99) Laboratory Data (last 24hrs) Test 02/26/16 06:03 Anion Gap 7.0 mmol/L BUN/Creatinine Ratio 26.5 Blood Urea Nitrogen 20 mg/dl Creatinine 0.75 mg/dl Potassium Level 4.3 mmol/L Sodium Level 144 mmol/L White Blood Count 6.07 K/uL Red Blood Count 3.13 M/uL Hemoglobin 8.7 g/dL Hematocrit 28.4 % Mean Corpuscular Volume 90.7 fL Mean Corpuscular Hemoglobin 27.8 pg Mean Corpuscular Hemoglobin Concent 30.6 g/dl Platelet Count 290 K/uL Mean Platelet Volume 8.7 fL Neutrophils (%) (Auto) 79.6 % Lymphocytes (%) (Auto) 10.4 % Monocytes (%) (Auto) 9.1 % Eosinophils (%) (Auto) 0.0 % Basophils (%) (Auto) 0.2 % Neutrophils # (Auto) 4.84 K/uL Lymphocytes # (Auto) 0.63 K/uL Monocytes # (Auto) 0.55 K/uL Eosinophils # (Auto) 0.00 K/uL Basophils # (Auto) 0.01 K/uL HbA1c: Test 02/23/16 05:32 Hemoglobin A1c 6.7 % (4.5-5.6) H Recent Pertinent Medications Outpatient Anti-diabetic Regimen: * Glimepiride 0.5mg PO Q AM * Metformin 1000mg PO BID * A1c = 6.7 % on 02/23/16 The patient is currently receiving: * Basal insulin: None * Correctional Insulin: Novolog Correction per scale ACHS Goal Range: Low 120 mg/dL - High 160 mg/dL Correction Factor: 25 mg/dL/unit * Prandial insulin: Per carb ratio of 1 unit per 9 grams CHO consumed * Oral Agents: None currently Risk Factors for Insulin Resistance: * Steroids: Solu-Medrol 80mg IV Q 6 hours * Infection: COPD exac failing out-pt Augmentin; receiving Levofloxacin IV * Diet: Changed to NPO * Mechanical ventilation: YES Assessment & Plan ASSESSMENT: * ADA & AACE recommend a goal blood sugar range 140-180 mg/dl for the majority of critically ill & non-critically ill patients. However, more stringent targets may be selected in individual cases. 02/25/16 * Patient electively intubated last night, steroids increased, and made NPO. * Patient has required Lantus while significantly more stressed this admission. However, will wait to add on until BSG's are trending up significantly as pt is now NPO (and will give 50% of dose that pt received prior) * Will increase goal range to ensure pt does not become hypoglycemic while acutely ill 02/26/16 * BSG's ranging 144-169 mg/dL with no insulin administered x24 hours * No change to regimen for now PLAN FOR INPATIENT GLYCEMIC CONTROL: * Continue to hold outpatient oral diabetes medications * Continue to hold basal insulin * Correctional Insulin with NOVOLOG per scale ACHS or Q6hrs while NPO * Goal Range: Low 140 mg/dL - High 180 mg/dL * Correction Factor: 25 mg/dL/unit * Nutritional / Prandial insulin per carb ratio of 1 unit per 9 grams CHO consumed * Please note that the plan above was derived based on current level of insulin resistance and hospital stress. These recommendations are appropriate for inpatient admission only. Plan of care upon discharge will need to be reassessed to avoid potential outpatient hypo/hyperglycemia. Thank you.
--- NOTE | 2016-02-26 13:54 | DIAGNOSTIC IMAGING REPORT ---
CT ANGIOGRAM OF THE CHEST CLINICAL HISTORY: Respiratory failure. Possible pulmonary embolism. COMPARISON STUDY: Chest CT dated 12/11/2013 TECHNIQUE: Following the IV administration of 93 mL of Optiray-320, CT angiogram of the thorax was performed from the thoracic inlet to the lung bases utilizing the pulmonary embolus protocol. Images are reviewed in the axial, sagittal, and coronal planes. IV contrast was administered without complication. MIP imaging was performed. CT DOSE: 698.42 mGycm FINDINGS: No pathologically enlarged axillary mediastinal or hilar lymph nodes were visualized. There was no evidence of thoracic aortic dilatation. There were no pulmonary artery filling defects to indicate acute pulmonary embolism. No pleural effusions are visualized. There are bibasal atelectatic changes. There is underlying pulmonary emphysema. There is no focal pulmonary consolidation. There is an indwelling endotracheal tube. There is a joint nasogastric tube. IMPRESSION: 1. No CT evidence of acute pulmonary embolism 2. Bibasilar atelectasis 3. Emphysema 4. No evidence of pathologic adenopathy Electronically signed by: Byron Sauceda M.D. 02/26/2016 1:52 PM
[2016-02-26] MEDS ORDERED: OPTIRAY 320 IV PRN (14:00)
[2016-02-26] MEDS ORDERED: ROCURONIUM BROMIDE 10 MG/ML 5 ML VIAL IV ONE (16:15)
[2016-02-26] MEDS: PEPTAMEN INTENSE VHP 1000ML BAG OG SCH (16:34)
--- NOTE | 2016-02-26 17:08 | CRITICAL CARE PROGRESS NOTE ---
DATE: 02/26/2016 SUBJECTIVE: The patient is sedated and paralyzed with vecuronium. Her care was discussed in detail on multidisciplinary rounds today. Earlier, the rocuronium was stopped and the Versed was cut in half. She became very dyssynchronous with the ventilator, so she was given another bolus of rocuronium. She was taken to CT scan which showed no evidence for pulmonary embolism, bibasilar atelectasis, emphysema and no evidence of pathologic adenopathy. After she came back from CT, the rocuronium was again stopped and her propofol was decreased. For about an hour and a half she did well with peak airway pressures in the high 30s and as soon as she was suctioned, her peak airway pressures were get up to 50 and she was dyssynchronous. She did not move or follow any commands during the times that she was not on the paralytic. She has not had a bowel movement in the past 24 hours. She is not having any significant endotracheal tube secretions. PHYSICAL EXAMINATION: VITAL SIGNS: Maximum temperature 37, heart rate 108-130, respiratory rate 22, blood pressure 150-170/70-80, oxygen saturation 98% to 100% on assist control rate 22, tidal volume 450, FiO2 40%, PEEP 5, peak airway pressures prior to lightning sedation were in the high 30s. A 24-hour fluid balance is positive 1.4 liters. HEENT: Bilateral pupils are 2-3 mm and difficult to see with somewhat muddy sclerae. LUNGS: Lungs sounds are more audible today compared to yesterday. I did not hear any wheezing. HEART: Tachycardic, regular, no murmurs. ABDOMEN: Obese, soft, moderate distention, hypoactive bowel sounds. EXTREMITIES: With trace to 1+ edema throughout. LABORATORY DATA: White blood cell count 6.07, hemoglobin 8.7, hematocrit 28.4, platelets 290, pH 7.34, pCO2 65, pO2 97, HCO3 35. Sodium 144, potassium 4.3, chloride 103, CO2 34, BUN 20, creatinine 0.75, blood sugar 192, calcium 7.4, phosphorus 3.0, blood sugars 169, 165, 144. There is no new microbiology data. Portable chest x-ray from this morning was reviewed and shows no definite infiltrate. The endotracheal tube is 2.5 cm above the romina. MEDICATIONS AND INFUSIONS: Acetaminophen, [place], albuterol, Elavil, aspirin, Lipitor, Symbicort, chlorhexidine, Voltaren, Lovenox, Peptamen, fentanyl, gabapentin, insulin sliding scale, Atrovent, labetalol, Levaquin day 5, Cozaar, Solu-Medrol, Lopressor, Versed, Protonix, propofol, rocuronium, normal saline. IMPRESSION: 1. Acute on chronic hypercapnic respiratory failure secondary to acute exacerbation of chronic obstructive pulmonary disease. There is no wheezing today. 2. Hypertension. 3. Tachycardia. 4. History of gastroesophageal reflux disease. 5. History of hyperlipidemia. 6. History of tobacco use. PLAN: 1. Neurologic: I would like to do a sedation vacation on her, but I am very concerned about barotrauma due to her dyssynchrony on the ventilator. I have attempted to do so by decreasing her Versed as well as her fentanyl and she starts to have peak airway pressures in the 50s. Hopefully, we can get by with the propofol, fentanyl and Versed and without the paralytics later today. 2. Continue bronchodilators as well as Symbicort and Singulair. 3. Consider increasing Cozaar. I have ordered as needed labetalol. 4. Continue DVT and GI prophylaxis. 5. Decrease steroids to 60 mg IV q. 6 hours. 6. Continue to follow blood counts. 7. I will order saline eyedrops for her. 8. Keep head of bed at 30 degrees. 9. Begin trickle feeds. 10. Consider IV Lasix. For now, I will discontinue IV fluids. I had a long discussion with patient's family including her 2 daughters, a sister and brother. I explained to them in detail the rationale behind using paralytics. They had good questions and are appropriately concerned. I also told them that it was unclear to me how severe her lung disease is. I answered any and all questions. Support was provided. Critical care time 40 minutes. EDUARDA
[2016-02-26] MEDS: AMITRIPTYLINE HCL 10 MG TAB PO SCH (20:16)
[2016-02-26] MEDS: LEVOFLOXACIN / D5W 500 MG in PREMIXED IN D5W 100 ML IV SCH (22:31)
--- NOTE | 2016-02-26 23:00 | Progress Note ---
Medicine Progress Note Date & Time of Visit: Feb 26, 2016 at 19:54. Subjective Intubated, sedated and paralyzed Failed trial of wean this morning and this afternoon Started Peptogen tube feeds and being titrated up as tolerated. Objective Last 8 Hrs Date Time Temp Pulse Resp B/P Pulse Ox O2 Delivery O2 Flow Rate FiO2 02/26/16 19:52 40 02/26/16 18:28 79 22 130/77 100 02/26/16 18:03 94 151/81 02/26/16 17:59 95 22 98 Mechanical Ventilator 02/26/16 17:45 40 02/26/16 16:58 90 22 143/84 99 02/26/16 16:28 97 22 143/79 98 02/26/16 16:00 Mechanical Ventilator 02/26/16 16:00 40 02/26/16 15:59 36.8 93 21 96 Mechanical Ventilator 02/26/16 15:00 40 02/26/16 13:59 91 22 100 02/26/16 13:58 89 22 158/91 02/26/16 12:00 Mechanical Ventilator 02/26/16 12:00 40 02/26/16 11:59 36.6 101 22 178/97 97 Mechanical Ventilator 40 02/26/16 11:59 101 164/94 Physical Exam: GEN: obese, intubated, sedated and paralyzed HEENT: NC/AT CARDIO: tachy, S1/2 heard without m/g/r LUNGS: No wheezing, good breath sounds bilaterally ABD: soft, non-distended, no rebound or guarding EXTREMITY: no LE swelling or edema, extremities are warm and well-perfused N/M: could not be assessed as patient is sedated SKIN: warm and dry Laboratory Results: Last 24 Hours Test 02/25/16 23:49 02/26/16 05:39 02/26/16 06:03 02/26/16 08:50 Bedside Glucose 169 mg/dl 165 mg/dl White Blood Count 6.07 K/uL Red Blood Count 3.13 M/uL Hemoglobin 8.7 g/dL Hematocrit 28.4 % Mean Corpuscular Volume 90.7 fL Mean Corpuscular Hemoglobin 27.8 pg Mean Corpuscular Hemoglobin Concent 30.6 g/dl Platelet Count 290 K/uL Mean Platelet Volume 8.7 fL Neutrophils (%) (Auto) 79.6 % Lymphocytes (%) (Auto) 10.4 % Monocytes (%) (Auto) 9.1 % Eosinophils (%) (Auto) 0.0 % Basophils (%) (Auto) 0.2 % Neutrophils # (Auto) 4.84 K/uL Lymphocytes # (Auto) 0.63 K/uL Monocytes # (Auto) 0.55 K/uL Eosinophils # (Auto) 0.00 K/uL Basophils # (Auto) 0.01 K/uL RDW Standard Deviation 48.6 fL RDW Coefficient of Variation 14.6 % Immature Granulocyte % (Auto) 0.7 % Immature Granulocyte # (Auto) 0.04 K/uL Nucleated RBC Absolute Count (auto) 0.04 K/uL Nucleated Red Blood Cells % 0.7 % Polychromasia 1+ Basophilic Stippling 1+ Sodium Level 144 mmol/L Potassium Level 4.3 mmol/L Chloride Level 103 mmol/L Carbon Dioxide Level 34 mmol/L Anion Gap 7.0 mmol/L Blood Urea Nitrogen 20 mg/dl Creatinine 0.75 mg/dl Est Creatinine Clear Calc Drug Dose 93.8 ml/min Estimated GFR () 99.7 Estimated GFR (Non- 86.0 BUN/Creatinine Ratio 26.5 Random Glucose 192 mg/dl Calcium Level 7.4 mg/dl Phosphorus Level 2.8 mg/dl Magnesium Level 3.0 mg/dl Blood Gas Sample Site L Radial Bedside Blood Gas pH (LAB) 7.34 Bedside Blood Gas pCO2 (LAB) 65 mmHg Bedside Blood Gas pO2 (LAB) 97 mmHg Bedside Blood Gas HCO3 (LAB) 35 meq/L Bedside Blood Gas Total CO2 37 mEq/l Bedside Blood Gas Base Excess (LAB) 10.0 meq/L Bedside Blood Gas O2 Saturation 97.0 % Ziyad Test Pass Oxygen Delivery Device Ventilator Bedside Oxygen Rate (breaths/min) 22 Blood Gas Minute Ventilation 9 Bedside FiO2 40 % Blood Gas Tidal Volume 450 Blood Gas PEEP 5 Test 02/26/16 11:33 02/26/16 18:00 Bedside Glucose 144 mg/dl 157 mg/dl Assessment & Plan 60 yo F with a h/o COPD, DM and HTN presents with increasing shortness of breath 2/2 acute COPD exacerbation likely 2/2 acute bronchitis. She was subsequently intubated and paralyzed on 02/23 1. Acute on chronic hypercapnic respiratory failure 2/2 COPD exacerbation. Intubated , cont management per ICU team including IV steroids. Pt not wheezing on exam. 2. DMII-at goal, holding ISS while NPO and intubated. ICU team considering feeding tomorrow. Glycemic pharmacist assisting with insulin. 3. GERD-cont PPI 4. HTN-controlled on losartan 5. Depression-psych eval today -no readily identifiable depression, panic attack or TALIA present. 6. Anemia-baseline 12 and currently but stable in 9s. No evidence of bleeding , likely multifactorial including frequent phlebotomy. Pt was already decreased prior to admission DVT proph-Lovenox Dispo-remain in ICU while intubated. Paola Callahan DO [facility] Hospitalist Consultants: Pulm, ICU Current Inpatient Medications: Current Inpatient Medications Medications (Trade) Dose Ordered Sig/Allison Route Start Time Stop Time Status Last Admin Dose Admin Acetaminophen (Tylenol Tab) 650 mg Q4H PRN PO 02/22/16 02:15 03/23/16 02:14 Ondansetron HCl 4 mg 4 mg Q6H PRN IV 02/22/16 02:15 03/23/16 02:14 Levofloxacin/Prmx (Levaquin / D5W/ Premixed D5W) 100 ml @ 100 mls/hr Q24H IV 02/22/16 22:00 03/03/16 21:59 02/25/16 21:26 100 MLS/HR Glucose (Glucose 40% Gel) 15-30 GRAMS 15 GRAMS... UD PRN PO 02/22/16 02:15 03/23/16 02:14 Glucose (Glucose Chew Tab) 4-8 Tablets 4 Tabl... UD PRN PO 02/22/16 02:15 03/23/16 02:14 Dextrose (Dextrose 50% 50ML Syringe) 25-50ML OF 50% DW IV FOR... UD PRN IV 02/22/16 02:15 03/23/16 02:14 Glucagon (Glucagon Inj) 1 mg UD PRN SQ 02/22/16 02:15 03/23/16 02:14 Miscellaneous Information (Consult Glycemic Management Pharmacy) 1 ea UD PRN N/A 02/22/16 02:45 03/23/16 02:44 Amitriptyline HCl (Elavil Tab) 10 mg HS PO 02/22/16 21:00 03/23/16 20:59 02/25/16 21:26 10 MG Aspirin (Ecotrin Tab) 81 mg QAM PO 02/22/16 09:00 03/23/16 08:59 02/26/16 09:46 81 MG Atorvastatin Calcium (Lipitor Tab) 10 mg QAM PO 02/22/16 09:00 03/23/16 08:59 02/26/16 09:46 10 MG Gabapentin (Neurontin Cap) 100 mg TID PO 02/22/16 09:00 03/23/16 08:59 02/26/16 15:10 100 MG Acetaminophen/ Hydrocodone Bitart ([place] 5/325 Tab) 1 tab Q8 PRN PO 02/22/16 02:15 03/07/16 02:14 Losartan Potassium (coZAAR TAB) 25 mg QAM PO 02/22/16 09:00 03/23/16 08:59 02/26/16 09:47 25 MG Pramipexole Dihydrochloride (miraPEX TAB) 0.5 mg BID PO 02/22/16 09:00 03/23/16 08:59 02/26/16 09:48 0.5 MG Miscellaneous Information (Order Awaiting Action) 1 ea QS N/A 02/22/16 05:30 03/23/16 05:29 Budesonide/ Formoterol Fumarate (Symbicort 160/ 4.5 Inh) 2 puffs BID INH 02/22/16 21:00 03/23/16 20:59 02/26/16 19:45 2 PUFFS Enoxaparin Sodium (Lovenox Inj) 40 mg QAM SQ 02/23/16 09:00 03/24/16 08:59 02/26/16 09:48 40 MG Diclofenac Sodium (Voltaren 1% Top Gel) 1 appln BID PRN EXT 02/23/16 20:15 03/24/16 20:14 02/23/16 21:39 1 APPLN Ioversol (Optiray 320) 95 ml UD PRN IV 02/24/16 12:00 02/28/16 11:59 Propofol 1 dose 1 dose UD PRN IV 02/24/16 16:30 02/27/16 16:29 02/26/16 18:04 1 DOSE Midazolam HCl 250 ml @ 0 mls/hr Q0M PRN IV 02/24/16 17:30 03/25/16 17:29 02/26/16 10:07 10 MLS/HR Methylprednisolone Sodium Succinate 80 mg/Syringe 1.28 ml @ 1.5 mls/min Q6H IV 02/24/16 20:00 03/25/16 19:59 02/26/16 19:32 1.5 MLS/MIN Pantoprazole Sodium/Syringe (Protonix Inj/ Syringe) 10 ml @ 5 mls/min DAILY@09,21 IV 02/24/16 21:00 03/25/16 20:59 02/26/16 19:32 5 MLS/MIN Chlorhexidine Gluconate (Peridex Oral Soln) 15 ml BID MT 02/24/16 21:00 03/25/16 20:59 02/26/16 19:36 15 ML Insulin Aspart SLIDING SCALE If C... Q6 SC 02/25/16 00:00 03/26/16 00:00 02/25/16 05:41 2 UNITS Fentanyl Citrate (Fentanyl Drip 1250MCG/250 Nss) 250 ml @ 0 mls/hr Q0M PRN IV 02/24/16 21:45 03/09/16 21:44 02/26/16 04:57 10 MLS/HR Ipratropium [place] (Atrovent Hfa Inhaler) 8 puffs Q4R INH 02/25/16 13:15 03/26/16 13:14 02/26/16 19:45 8 PUFFS Albuterol (Ventolin Hfa Inhaler) 8 puffs Q4R INH 02/25/16 13:15 03/26/16 13:14 02/26/16 19:45 8 PUFFS Albuterol 4 puffs 4 puffs Q2R PRN INH 02/25/16 10:45 03/26/16 10:44 Rocuronium [place]/Sodium Chloride (Zemuron Inj/Nss 100ml) 200 ml @ 0 mls/hr Q0M PRN IV 02/26/16 02:00 03/27/16 01:59 02/26/16 18:17 43 MLS/HR Metoprolol Tartrate (Lopressor Iv) 5 mg Q6 IV. 02/26/16 12:00 03/27/16 11:59 02/26/16 18:03 5 MG Labetalol HCl (Normodyne IV) 15 mg Q1H PRN IV 02/26/16 08:00 03/27/16 07:59 Ioversol (Optiray 320) 125 ml UD PRN IV 02/26/16 14:00 03/01/16 13:59 Enteral Nutritional Formula (Peptamen Intense VHP) 1,000 ml UD OG 02/26/16 15:30 03/27/16 15:29 02/26/16 16:34 1,000 ML
[2016-02-27] VITALS (28 sets, daily range): BP systolic 110–168; BP diastolic 65–94; PULSE 66–90; TEMP 36.5–36.8; O2SAT 92–100
[2016-02-27] MEDS: ROCURONIUM BROMIDE IV PRN ×3 (00:25→13:09)
[2016-02-27] MEDS: SODIUM CHLORIDE 0.9% IV PRN ×3 (00:25→13:09)
[2016-02-27] MEDS: PROPOFOL IV EMULSION 10 MG/ML 100 ML VIAL IV PRN ×6 (00:26→14:38)
[2016-02-27] MEDS: METHYLPREDNISOLONE IV 80 MG in SYRINGE 0 ML IV SCH ×3 (01:41→13:10)
[2016-02-27] MEDS: ALBUTEROL HFA 8 GM INHALER INH SCH ×6 (03:30→23:11)
[2016-02-27] MEDS: IPRATROPIUM BROMIDE HFA INHALER INH SCH ×6 (03:30→23:11)
[2016-02-27] MEDS: FENTANYL 1250MCG/250ML NSS 250 ML IV PRN ×2 (05:23→19:44)
[2016-02-27] MEDS: INSULIN ASPART 100 UNITS/ML 3 ML PEN SC SCH ×5 (05:59→17:27)
[2016-02-27] MEDS: METOPROLOL TARTRATE 1 MG/ML VIAL IV. SCH ×3 (06:01→17:25)
[2016-02-27 06:02] LABS: HEMATOCRIT 26.8 % (37-47); IG% 0.7 %; LYMPH % 10.8 %; LYMPH ABS # 0.44 K/uL (1.2-3.4); MEAN CELL VOLUME 92.4 fL (80-100); MEAN CORPUSCULAR HEMOGLOBIN 27.9 pg (25-34); MEAN CORPUSCULAR HGB CONC 30.2 g/dl (32-36); MEAN PLATELET VOLUME 9.2 fL (7.4-10.4); NEUT % 78.5 %; PLATELET COUNT 294 K/uL (130-400); WHITE BLOOD COUNT 4.09 K/uL (4.8-10.8)
[2016-02-27 06:36] LABS: COMPLETE YES
[2016-02-27 06:38] LABS: BUN/CREATININE RATIO 33.3 (10-20); CALCIUM 7.7 mg/dl (8.5-10.1); CREATININE 0.65 mg/dl (0.60-1.20); MAGNESIUM 3.1 mg/dl (1.8-2.4); POTASSIUM 4.4 mmol/L (3.5-5.1)
[2016-02-27 06:49] LABS: PHOSPHORUS 3.4 mg/dl (2.5-4.9)
--- NOTE | 2016-02-27 07:26 | DIAGNOSTIC IMAGING REPORT ---
CHEST ONE VIEW PORTABLE CLINICAL HISTORY: respiratory failure, copd COMPARISON STUDY: 02/26/2016 FINDINGS: There is an endotracheal tube 34 mm above the romina. There is a right-sided PICC catheter unchanged from the preceding study. The heart remains the upper limits of normal in size. There is no evidence of failure. There is no focal pulmonary consolidation.[ IMPRESSION: AP portable study. No evidence of focal pulmonary consolidation. Endotracheal tube 3.4 cm above the romina Electronically signed by: Byron Sauceda M.D. 02/27/2016 7:25 AM
[2016-02-27] MEDS: BUDESONIDE/FORMOTEROL FUMARATE 160/4.5 60 PUFFS/INHALER INH SCH ×2 (07:42→23:11)
[2016-02-27] MEDS: GABAPENTIN 100 MG CAP PO SCH ×3 (07:52→19:49)
[2016-02-27] MEDS: ATORVASTATIN 10 MG TAB PO SCH (07:52)
[2016-02-27] MEDS: LOSARTAN POTASSIUM 25 MG TAB PO SCH (07:53)
[2016-02-27] MEDS: PRAMIPEXOLE DIHYDROCHLORIDE 0.5 MG TAB PO SCH ×2 (07:53→19:49)
[2016-02-27] MEDS: ENOXAPARIN 40 MG/0.4 ML SYR SQ SCH (07:53)
[2016-02-27] MEDS: CHLORHEXIDINE GLUCONATE 0.12% 480 ML MT SCH ×2 (07:54→19:48)
[2016-02-27] MEDS ORDERED: NURSING DECISION MEDICATION ORDER SCH (08:15)
[2016-02-27] MEDS: PANTOprazole INJ 40 MG in SYRINGE 0 ML IV SCH ×2 (08:47→19:47)
[2016-02-27 09:23] LABS: ISTAT ALLEN TEST Pass; ISTAT ARTERIAL BLOOD GAS HCO3 36 meq/L (19-24); ISTAT ARTERIAL BLOOD GAS PCO2 69 mmHg (35-46); ISTAT ARTERIAL BLOOD GAS PO2 78 mmHg (80-95); ISTAT ARTERIAL BLOOD GAS pH 7.32 (7.35-7.45); ISTAT CARBON DIOXIDE 38 mEq/l (24-31); ISTAT DELIVERY SYSTEM Ventilator; ISTAT FIO2 35 %; ISTAT PEEP 5; ISTAT RATE 22; ISTAT SITE L Radial; VE 9.2; Vt 450
[2016-02-27] MEDS: ASPIRIN 81 MG CHEW PO SCH (09:32)
[2016-02-27] MEDS ORDERED: NURSING VERBAL MED ORDER ONE ×2 (09:45→18:00)
[2016-02-27] MEDS ORDERED: FUROSEMIDE 40 MG/4 ML VIAL ONE (10:40)
[2016-02-27] MEDS ORDERED: FUROSEMIDE INJ 20 MG in SYRINGE 0 ML IV ONE (10:45)
[2016-02-27] MEDS: MIDAZOLAM 125MG/250ML D5W 250 ML IV PRN (13:08)
--- NOTE | 2016-02-27 13:46 | Pharmacy Progress Note ---
Glycemic: Assessment & Plan Date of Service Feb 27, 2016. Assessment & Plan Item Value Date Time Bedside Glucose 211 mg/dl H 02/27/16 1202 Random Glucose 240 mg/dl H 02/27/16 0520 Bedside Glucose 189 mg/dl H 02/26/16 2338 Bedside Glucose 171 mg/dl H 02/26/16 2145 Bedside Glucose 157 mg/dl H 02/26/16 1800 Bedside Glucose 144 mg/dl H 02/26/16 1133 Random Glucose 192 mg/dl H 02/26/16 0603 PLAN: BSGs trend upward since TF initiated and now @ goal 60cc/hr. Will add low-dose basal insulin with Lantus and Novolog with CF and scheduled dose to cover carbs in TF. * Basal insulin: Lantus 10 units every HS, give 1/2 dose for BSGs < 120 mg/dL * Correctional Insulin: Novolog Correction per scale q 6 hours Goal Range: Low 140 mg/dL - High 180 mg/dL Correction Factor: 25 mg/dL/unit * Prandial insulin: 3 units sq Novolog q 6 hours to cover carbs (27 grams q 6 hours in TF). Hold if TF held. Pharmacy will continue to monitor patient daily and write orders per [facility] inpatient glycemic control protocol. Thanks. * Please note that the plan above was derived based on current level of insulin resistance and hospital stress. These recommendations are appropriate for inpatient admission only. Plan of care upon discharge will need to be reassessed to avoid potential outpatient hypo/hyperglycemia.
[2016-02-27] MEDS ORDERED: DexMEDEtomidine IV DRIP IV STA (15:24)
--- NOTE | 2016-02-27 15:31 | Pulmonary Consultation ---
History General Date of Service: Feb 27, 2016. Stated Complaint: Copd Exacerbation HPI The patient is a 60 year old female who presents to [facility] with complaints of Copd Exacerbation. The patient's primary care provider is Martina Jay M.D.. 60y/o female with >a dozen admissions to [facility] since 2005 for ACOS exacerbations was treated for ACOS flare by her PCP on 02/03/2016 with Augmentin and Prednisone leilani but 2 days after the course was complete she started to experience increasing SOB/ALDRIDGE and required admission. She was started on Solumedrol, Levaquin, nebulizers and BiPAP 02/01. Her dyspnea progressed and she required intubation on the night of the 02/23-. Since that time patient has been treated with antibiotics, steroids, nebulizers and mechanical ventilation. Multiple attempts the team has tried to extubate/wean ventilation the patient has become dyssynchronous from the ventilator even with minimal removal of sedatives. At this time the patient is sedated, paralyzed and on mechanical ventilation Cardiac Echo (02/23/2016) LV: WNL EF=70% CTA (02/26/2016) No PE Mild bibasilar atelectasis Emphysema CXR: 02/27/2016 ETT 3cm above romina with right PICC line and no notable consolidation vs. 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 8) Abnormal PAP 9) HTN 10) DM 11) Obesity 12) Depression 13) Osteo-arthritis 14) Restless leg syndrome 15) Iron deficiency anemia 16) RAO pulm nodule 2mm (stable on CT 05/2010-11/2013) 17) Seborrheic keratosis Past Surgical History: 1) EGD 07/29/15-WNL 2) Colonoscopy 07/29/2015WNL Past Surgical History: no surgical history Family History Diabetes mellitus FH: heart disease FH: lung disease FHx: cancer Hypertension 1) Mother with cancer 2) Sister with DM 3) Brother with esophageal CA and heart disease Social History Hx Tobacco Use In Past Year?: No Smoking Status: Former Smoker Alcohol: socially Drug Use: other Marital status: single Housing status: lives with family Occupational Status: disabled Immunizations History of Influenza Vaccine: Yes Influenza Vaccine Date: Nov 27, 2010 History of Tetanus Vaccine?: No History of Pneumococcal: Yes Pneumococcal Date: Mar 16, 2009 History of Hepatitis B Vaccine: No History of MDRO History of MDRO: No Allergies Coded Allergies: No Known Allergies (Verified , 02/21/16) Current Medications Reported Home Medications Medications Dose Route/Sig Max Daily Dose Days Date Category Dose Instructions Vitamin B12 (Cyanocobalamin) 1,000 Mcg Tab 1,000 Mcg PO DAILY 02/21/16 Reported Fluticasone Propionate 120 Sprays/6000 Mcg Inha 2 Sprays LIDYA BID PRN 12/28/15 Reported Aspirin Chewable (Aspirin) 81 Mg Chew 81 Mg PO DAILY 12/28/15 Reported [place] 5MG/325MG (Acetaminophen/Hydrocodone Bitart) Tab 1 Tablet PO Q8 PRN 12/28/15 Reported may take 1 extra if needed Potassium Chloride Er (Potassium Chloride) 10 Meq Tab 1 Tab PO DAILY PRN 12/28/15 Reported Prednisone 10 Mg Tab Mg PO UD PRN 12/28/15 Reported 5 tabs for 5 days then 4 tabs for 5 days 3 tabs for 5 days 2 tabs for 5 days 1 tab for 5 days Zithromax (Azithromycin) 250 Mg Tab 1 Pkt PO UD PRN 5 12/28/15 Reported Brovana (Arformoterol Tartrate) 15 Mcg/2 Ml Neb 15 Mcg IN BID 12/28/15 Reported Mirapex Er (Pramipexole Dihydrochloride) 1.5 Mg Tab 1-2 Tabs PO HS PRN 12/28/15 Reported Duoneb (Ipratropium-Albuterol) 3 Ml Nebu 1 Treatment INH Q4H PRN 12/28/15 Reported Amitriptyline HCl 10 Mg Tab 10 Mg PO HS 12/28/15 Reported Breo Ellipta 200-25 Mcg/INH (Fluticasone Furoate-Vilanterol) 1 Inh Inh 1 Puff PO DAILY 12/28/15 Reported Tessalon Perles (Benzonatate) 100 Mg Cap 1-2 Cap PO TID PRN 5 12/28/15 Reported Oxygen Gas 2 Liters NA HS 07/23/15 Reported may use during day when needed Lipitor (Atorvastatin Calcium) 10 Mg Tab 10 Mg PO QAM 07/23/15 Reported Lasix (Furosemide) 20 Mg Tab 20 Mg PO QAM PRN 07/23/15 Reported Flexeril (Cyclobenzaprine Hcl) 10 Mg Tab 10 Mg PO BID PRN 07/23/15 Reported Singulair (Montelukast Sodium) 10 Mg Tab 10 Mg PO QAM 07/23/15 Reported Glucophage (Metformin Hcl) 1,000 Mg Tab 1,000 Mg PO BID 07/23/15 Reported Protonix (Pantoprazole Sodium) 40 Mg Tab 40 Mg PO QAM 07/23/15 Reported Cozaar (Losartan Potassium) 25 Mg Tab 25 Mg PO QAM 07/23/15 Reported Zantac (Ranitidine HCl) 300 Mg Tab 300 Mg PO HS 07/23/15 Reported Neurontin (Gabapentin) 100 Mg Cap 100 Mg PO TID 07/23/15 Reported Mirapex (Pramipexole Dihydrochloride) 0.5 Mg Tab 0.5 Mg PO BID 07/23/15 Reported Iron Supplement (Ferrous Sulfate) 325 Mg Tab 325 Mg PO QAM 07/23/15 Reported Amaryl (Glimepiride) 1 Mg Tab 0.5 Tab PO QAM PRN 05/26/15 Reported Ambien (Zolpidem Tartrate) 10 Mg Tab 10 Mg PO HS PRN 04/01/15 Reported Proair Hfa (Albuterol) Aers 2 Puff INH Q4H PRN 04/07/14 Reported Spiriva Handihaler (Tiotropium [place]) 18 Mcg/ Aerp 1 Cap INH QAM 03/27/13 Reported Physical Physical Exam Vital Signs: Date Time Temp Pulse Resp B/P Pulse Ox O2 Delivery O2 Flow Rate FiO2 02/27/16 14:27 35 02/27/16 14:06 35 02/27/16 14:00 84 22 134/77 93 Mechanical Ventilator 35 02/27/16 12:20 96 157/76 02/27/16 12:00 35 02/27/16 12:00 36.7 90 22 157/76 94 Mechanical Ventilator 35 02/27/16 12:00 Mechanical Ventilator 35 02/27/16 11:55 35 02/27/16 10:58 86 22 168/87 93 Mechanical Ventilator 35 02/27/16 09:58 83 22 152/78 92 Mechanical Ventilator 35 02/27/16 08:00 35 02/27/16 08:00 36.6 79 22 136/71 95 Mechanical Ventilator 35 02/27/16 08:00 Mechanical Ventilator 35 02/27/16 07:45 35 02/27/16 06:01 81 138/73 02/27/16 05:58 80 22 138/73 Mechanical Ventilator 02/27/16 05:28 79 22 129/70 Mechanical Ventilator 02/27/16 05:11 35 02/27/16 04:58 79 22 137/71 95 Mechanical Ventilator 02/27/16 04:28 78 22 127/70 Mechanical Ventilator 02/27/16 04:00 Mechanical Ventilator 02/27/16 04:00 35 02/27/16 03:58 36.8 77 22 128/72 96 02/27/16 03:30 35 02/27/16 03:28 76 22 132/74 97 02/27/16 02:58 77 22 128/74 97 02/27/16 02:28 78 22 133/71 97 02/27/16 02:02 35 02/27/16 01:58 76 22 131/68 97 Mechanical Ventilator 02/27/16 01:28 78 22 128/71 Mechanical Ventilator 02/27/16 01:25 80 22 131/72 97 Mechanical Ventilator 02/27/16 00:58 80 22 116/68 100 Mechanical Ventilator 02/27/16 00:28 78 18 116/69 100 Mechanical Ventilator 02/27/16 00:01 Mechanical Ventilator 02/27/16 00:01 35 02/26/16 23:58 36.8 73 22 113/67 100 Mechanical Ventilator 02/26/16 23:40 85 18 119/68 100 Mechanical Ventilator 02/26/16 23:40 85 119/68 02/26/16 23:28 85 22 119/68 100 Mechanical Ventilator 02/26/16 23:05 35 02/26/16 22:58 85 18 118/70 100 Mechanical Ventilator 02/26/16 22:28 84 22 117/70 100 Mechanical Ventilator 02/26/16 21:58 83 22 115/69 100 Mechanical Ventilator 02/26/16 21:28 84 22 116/69 100 02/26/16 20:58 85 22 117/70 100 Mechanical Ventilator 02/26/16 20:28 84 22 121/69 Mechanical Ventilator 02/26/16 20:00 Mechanical Ventilator 02/26/16 20:00 40 02/26/16 19:58 36.7 83 22 120/72 99 Mechanical Ventilator 02/26/16 19:52 40 02/26/16 19:28 82 22 127/72 100 Mechanical Ventilator 02/26/16 18:28 79 22 130/77 100 02/26/16 18:03 94 151/81 02/26/16 17:59 95 22 98 Mechanical Ventilator 02/26/16 17:45 40 02/26/16 16:58 90 22 143/84 99 02/26/16 16:28 97 22 143/79 98 02/26/16 16:00 Mechanical Ventilator 02/26/16 16:00 40 02/26/16 15:59 36.8 93 21 96 Mechanical Ventilator General Appearance: other (intubated and sedated/paralyzed) Head: NORMOCEPHALIC, ATRAUMATIC Eyes: PERRLA, NO DISCHARGE, SCLERAE NORMAL ENT: other (intubated size 8 Belarusian ET tube) Neck: NORMAL RANGE OF MOTION, TRACHEA MIDLINE Respiratory: other (Auscultate/minimal wheezing on expiration noted) Cardiovasular: REGULAR RATE/RHYTHM, NORMAL S1S2, NO M/G/R, NO MURMUR, NO GALLOP Abdomen: NON TENDER, NORMAL BOWEL SOUNDS, NO MASSES Genitourinary - Female: EXTERNAL GENITALIA NORMAL Back: NORMAL INSPECTION, NO CVA TENDERNESS Upper Extremities: NO EDEMA, other (right-sided PICC line) Lower Extremities: edema (bilateral 1+ pitting edema) Pulses: carotid (R) (1+), carotid (L) (1+) Neuro: other (this patient is paralyzed unable to perform proper motor examination/patient is sedated and intubated) Psychiatric: other (patient is sedated and intubated) Diagnostics Labs Results Past 24 Hours Test 02/26/16 18:00 02/26/16 21:45 02/26/16 23:38 02/27/16 05:20 Range/Units Bedside Glucose 157 171 189 70-90 mg/dl White Blood Count 4.09 4.8-10.8 K/uL Red Blood Count 2.90 4.2-5.4 M/uL Hemoglobin 8.1 12.0-16.0 g/dL Hematocrit 26.8 37-47 % Mean Corpuscular Volume 92.4 80-100 fL Mean Corpuscular Hemoglobin 27.9 25-34 pg Mean Corpuscular Hemoglobin Concent 30.2 32-36 g/dl Platelet Count 294 130-400 K/uL Mean Platelet Volume 9.2 7.4-10.4 fL Neutrophils (%) (Auto) 78.5 % Lymphocytes (%) (Auto) 10.8 % Monocytes (%) (Auto) 10.0 % Eosinophils (%) (Auto) 0.0 % Basophils (%) (Auto) 0.0 % Neutrophils # (Auto) 3.21 1.4-6.5 K/uL Lymphocytes # (Auto) 0.44 1.2-3.4 K/uL Monocytes # (Auto) 0.41 0.11-0.59 K/uL Eosinophils # (Auto) 0.00 0-0.5 K/uL Basophils # (Auto) 0.00 0-0.2 K/uL RDW Standard Deviation 49.0 36.4-46.3 fL RDW Coefficient of Variation 14.6 11.5-14.5 % Immature Granulocyte % (Auto) 0.7 % Immature Granulocyte # (Auto) 0.03 0.00-0.02 K/uL Nucleated RBC Absolute Count (auto) 0.07 0-0 K/uL Nucleated Red Blood Cells % 1.6 % Sodium Level 143 136-145 mmol/L Potassium Level 4.4 3.5-5.1 mmol/L Chloride Level 104 98-107 mmol/L Carbon Dioxide Level 35 21-32 mmol/L Anion Gap 4.0 3-11 mmol/L Blood Urea Nitrogen 22 7-18 mg/dl Creatinine 0.65 0.60-1.20 mg/dl Est Creatinine Clear Calc Drug Dose 108.0 ml/min Estimated GFR () 111.1 Estimated GFR (Non- 95.8 BUN/Creatinine Ratio 33.3 10-20 Random Glucose 240 70-99 mg/dl Calcium Level 7.7 8.5-10.1 mg/dl Phosphorus Level 3.4 2.5-4.9 mg/dl Magnesium Level 3.1 1.8-2.4 mg/dl Test 02/27/16 05:54 02/27/16 09:09 02/27/16 12:02 Range/Units Bedside Glucose 204 211 70-90 mg/dl Blood Gas Sample Site L Radial Bedside Blood Gas pH (LAB) 7.32 7.35-7.45 Bedside Blood Gas pCO2 (LAB) 69 35-46 mmHg Bedside Blood Gas pO2 (LAB) 78 80-95 mmHg Bedside Blood Gas HCO3 (LAB) 36 19-24 meq/L Bedside Blood Gas Total CO2 38 24-31 mEq/l Bedside Blood Gas Base Excess (LAB) 9.0 -9-1.8 meq/L Bedside Blood Gas O2 Saturation 94.0 90-95 % Ziyad Test Pass Oxygen Delivery Device Ventilator Bedside Oxygen Rate (breaths/min) 22 Blood Gas Minute Ventilation 9.2 Bedside FiO2 35 % Blood Gas Tidal Volume 450 Blood Gas PEEP 5 Diagnostic Radiology CXR: 02/27/2016 ETT 3cm above romina with right PICC line and no notable consolidation vs. atelectasis CTA (02/26/2016) No PE Mild bibasilar atelectasis Emphysema Impression Assessment and Plan 60-year-old female with a cost acute exacerbation requiring mechanical ventilation for respiratory failure: #1 respiratory failure: Patient currently intubated requiring mechanical ventilation with multiple failed attempts for weaning of sedation secondary to dyssynchrony. I was able to perform multiple maneuvers with the ventilator as the RT nursing staff assisted me. As we increase the PEEP there is no increase in the peak airway pressures suggesting there was notable intrinsic PEEP. Also as I disconnected the patient from the ventilator and allowed to escape of the extrinsic her peak airways went from low 40s to mid 30s and up Plateau pressures went from low 30s to mid 20s. Reviewing the ventilator and noting that the difference between the peak airways and Plateau pressures is only 6 cm water pressure and the static compliance of the lung is 45. We'll suggest patient severe ACOS exacerbation is been treated appropriately. I believe that this time the patient's difficulties are most likely extrathoracic with her obesity and dyssynchrony secondary to notable anxiety. At this time I would initiate Precedex therapy and slowly weaned from that to prevent attempting to extubate the patient awake using Precedex. I did speak to 2 of the patient's children and inform them of my findings. We also did speak about severe refractory anxiety requiring possible tracheostomy for extubation. #2 hypoxia: Most likely associated with pickwickian syndrome. When patient is stabilized bubble study and V/Q study to rule out chronic thromboembolic pulmonary hypertension should be performed. Follow-up as patient is in house. Thank you for this interesting consultation.
[2016-02-27] MEDS ORDERED: DexMEDEtomidine HCL INJ 200 MCG in SODIUM CHLORIDE 0.9% 50ML 48 ML IV PRN (16:00)
[2016-02-27] MEDS: ARTIFICIAL TEARS OP SOLN OP SCH ×6 (16:04→23:19)
[2016-02-27] MEDS: PEPTAMEN INTENSE VHP 1000ML BAG OG SCH (16:39)
[2016-02-27 17:05] LABS: BUN/CREATININE RATIO 39.9 (10-20); CALCIUM 7.5 mg/dl (8.5-10.1); CREATININE 0.67 mg/dl (0.60-1.20)
[2016-02-27 17:23] LABS: POTASSIUM 4.5 mmol/L (3.5-5.1)
[2016-02-27] MEDS: DexMEDEtomidine HCL INJ 400 MCG in SODIUM CHLORIDE 0.9% 100ML 96 ML IV PRN ×3 (17:28→22:15)
[2016-02-27] MEDS ORDERED: PROPOFOL IV EMULSION 10 MG/ML 100 ML VIAL IV ONE (18:02)
[2016-02-27] MEDS: AMITRIPTYLINE HCL 10 MG TAB PO SCH (19:49)
[2016-02-27] MEDS: METHYLPREDNISOLONE IV 60 MG in SYRINGE 0 ML IV SCH (20:20)
[2016-02-27] MEDS: INSULIN GLARGINE SOLOSTAR 100 UNITS/ML 3 ML PEN SC SCH (21:13)
[2016-02-27] MEDS: LEVOFLOXACIN / D5W 500 MG in PREMIXED IN D5W 100 ML IV SCH (21:15)
--- NOTE | 2016-02-27 21:20 | Progress Note ---
Medicine Progress Note Date & Time of Visit: Feb 27, 2016 at 18:26. Subjective 60 yo F intubated for hypercapnic resp failure -off paralytics -almost to goal at tube feeds -some high peak pressures today but thought to be 2/2 anxiety -weaning diprovan, fentanyl and versed going along with Precedex (started today) Objective Last 8 Hrs Date Time Temp Pulse Resp B/P Pulse Ox O2 Delivery O2 Flow Rate FiO2 02/27/16 17:58 67 23 120/74 94 Mechanical Ventilator 35 02/27/16 17:35 67 22 119/73 95 Mechanical Ventilator 35 02/27/16 17:25 66 110/65 02/27/16 16:58 68 22 110/65 95 Mechanical Ventilator 35 02/27/16 16:00 36.7 83 22 139/77 95 Mechanical Ventilator 35 02/27/16 16:00 35 02/27/16 16:00 Mechanical Ventilator 35 02/27/16 15:32 35 02/27/16 14:27 35 02/27/16 14:06 35 02/27/16 14:00 84 22 134/77 93 Mechanical Ventilator 35 02/27/16 12:20 96 157/76 02/27/16 12:00 35 02/27/16 12:00 36.7 90 22 157/76 94 Mechanical Ventilator 35 02/27/16 12:00 Mechanical Ventilator 35 02/27/16 11:55 35 02/27/16 10:58 86 22 168/87 93 Mechanical Ventilator 35 Physical Exam: GEN: obese, intubated, sedated HEENT: NC/AT CARDIO: tachy, S1/2 heard without m/g/r LUNGS: No wheezing, breath sounds are diminished bilaterally ABD: soft, non-distended, no rebound or guarding (pt sedated) EXTREMITY: no LE swelling or edema, extremities are warm and well-perfused N/M: could not be assessed as patient is sedated SKIN: warm and dry Laboratory Results: Last 24 Hours Test 02/26/16 21:45 02/26/16 23:38 02/27/16 05:20 02/27/16 05:54 Bedside Glucose 171 mg/dl 189 mg/dl 204 mg/dl White Blood Count 4.09 K/uL Red Blood Count 2.90 M/uL Hemoglobin 8.1 g/dL Hematocrit 26.8 % Mean Corpuscular Volume 92.4 fL Mean Corpuscular Hemoglobin 27.9 pg Mean Corpuscular Hemoglobin Concent 30.2 g/dl Platelet Count 294 K/uL Mean Platelet Volume 9.2 fL Neutrophils (%) (Auto) 78.5 % Lymphocytes (%) (Auto) 10.8 % Monocytes (%) (Auto) 10.0 % Eosinophils (%) (Auto) 0.0 % Basophils (%) (Auto) 0.0 % Neutrophils # (Auto) 3.21 K/uL Lymphocytes # (Auto) 0.44 K/uL Monocytes # (Auto) 0.41 K/uL Eosinophils # (Auto) 0.00 K/uL Basophils # (Auto) 0.00 K/uL RDW Standard Deviation 49.0 fL RDW Coefficient of Variation 14.6 % Immature Granulocyte % (Auto) 0.7 % Immature Granulocyte # (Auto) 0.03 K/uL Nucleated RBC Absolute Count (auto) 0.07 K/uL Nucleated Red Blood Cells % 1.6 % Sodium Level 143 mmol/L Potassium Level 4.4 mmol/L Chloride Level 104 mmol/L Carbon Dioxide Level 35 mmol/L Anion Gap 4.0 mmol/L Blood Urea Nitrogen 22 mg/dl Creatinine 0.65 mg/dl Est Creatinine Clear Calc Drug Dose 108.0 ml/min Estimated GFR () 111.1 Estimated GFR (Non- 95.8 BUN/Creatinine Ratio 33.3 Random Glucose 240 mg/dl Calcium Level 7.7 mg/dl Phosphorus Level 3.4 mg/dl Magnesium Level 3.1 mg/dl Test 02/27/16 09:09 02/27/16 12:02 02/27/16 16:14 Blood Gas Sample Site L Radial Bedside Blood Gas pH (LAB) 7.32 Bedside Blood Gas pCO2 (LAB) 69 mmHg Bedside Blood Gas pO2 (LAB) 78 mmHg Bedside Blood Gas HCO3 (LAB) 36 meq/L Bedside Blood Gas Total CO2 38 mEq/l Bedside Blood Gas Base Excess (LAB) 9.0 meq/L Bedside Blood Gas O2 Saturation 94.0 % Ziyad Test Pass Oxygen Delivery Device Ventilator Bedside Oxygen Rate (breaths/min) 22 Blood Gas Minute Ventilation 9.2 Bedside FiO2 35 % Blood Gas Tidal Volume 450 Blood Gas PEEP 5 Bedside Glucose 211 mg/dl Sodium Level 141 mmol/L Potassium Level 4.5 mmol/L Chloride Level 101 mmol/L Carbon Dioxide Level 34 mmol/L Anion Gap 6.0 mmol/L Blood Urea Nitrogen 27 mg/dl Creatinine 0.67 mg/dl Est Creatinine Clear Calc Drug Dose 104.8 ml/min Estimated GFR () 110.0 Estimated GFR (Non- 94.9 BUN/Creatinine Ratio 39.9 Random Glucose 194 mg/dl Calcium Level 7.5 mg/dl Assessment & Plan 60 yo F with a h/o COPD, DM and HTN presents with increasing shortness of breath 2/2 acute COPD exacerbation likely 2/2 acute bronchitis. She was subsequently intubated and paralyzed on 02/23 1. Acute on chronic hypercapnic respiratory failure 2/2 COPD exacerbation. Intubated , cont management per ICU team including IV steroids. Pt not wheezing on exam but breath sounds are diminished. Off paralytics and weaning diprovan at this time. 2. DMII-round goal, ISS. Tube feeds almost to goal 65 cc/hr. Glycemic pharmacist assisting with insulin. Lantus ordered 3. GERD-cont PPI 4. HTN-controlled on losartan and she is sedated 5. Depression-psych eval revealed no readily identifiable depression, panic attack or TALIA present. 6. Anemia-baseline 12 and currently around 8. No evidence of bleeding, likely multifactorial including frequent phlebotomy. Pt was already decreased prior to admission, transfuse PRN ICU team recs. DVT proph-Lovenox Dispo-remain in ICU while intubated. Paola Callahan DO [facility] Hospitalist Consultants: Pulm, ICU Current Inpatient Medications: Current Inpatient Medications Medications (Trade) Dose Ordered Sig/[place]ison Route Start Time Stop Time Status Last Admin Dose Admin Acetaminophen (Tylenol Tab) 650 mg Q4H PRN PO 02/22/16 02:15 03/23/16 02:14 Ondansetron HCl 4 mg 4 mg Q6H PRN IV 02/22/16 02:15 03/23/16 02:14 Levofloxacin/Prmx (Levaquin / D5W/ Premixed D5W) 100 ml @ 100 mls/hr Q24H IV 02/22/16 22:00 03/03/16 21:59 02/26/16 22:31 100 MLS/HR Glucose (Glucose 40% Gel) 15-30 GRAMS 15 GRAMS... UD PRN PO 02/22/16 02:15 03/23/16 02:14 Glucose (Glucose Chew Tab) 4-8 Tablets 4 Tabl... UD PRN PO 02/22/16 02:15 03/23/16 02:14 Dextrose (Dextrose 50% 50ML Syringe) 25-50ML OF 50% DW IV FOR... UD PRN IV 02/22/16 02:15 03/23/16 02:14 Glucagon (Glucagon Inj) 1 mg UD PRN SQ 02/22/16 02:15 03/23/16 02:14 Miscellaneous Information (Consult Glycemic Management Pharmacy) 1 ea UD PRN N/A 02/22/16 02:45 03/23/16 02:44 Amitriptyline HCl (Elavil Tab) 10 mg HS PO 02/22/16 21:00 03/23/16 20:59 02/26/16 20:16 10 MG Atorvastatin Calcium (Lipitor Tab) 10 mg QAM PO 02/22/16 09:00 03/23/16 08:59 02/27/16 07:52 10 MG Gabapentin (Neurontin Cap) 100 mg TID PO 02/22/16 09:00 03/23/16 08:59 02/27/16 13:51 100 MG Losartan Potassium (coZAAR TAB) 25 mg QAM PO 02/22/16 09:00 03/23/16 08:59 02/27/16 07:53 25 MG Pramipexole Dihydrochloride (miraPEX TAB) 0.5 mg BID PO 02/22/16 09:00 03/23/16 08:59 02/27/16 07:53 0.5 MG Miscellaneous Information (Order Awaiting Action) 1 ea QS N/A 02/22/16 05:30 03/23/16 05:29 Budesonide/ Formoterol Fumarate (Symbicort 160/ 4.5 Inh) 2 puffs BID INH 02/22/16 21:00 03/23/16 20:59 02/27/16 07:42 2 PUFFS Enoxaparin Sodium (Lovenox Inj) 40 mg QAM SQ 02/23/16 09:00 03/24/16 08:59 02/27/16 07:53 40 MG Ioversol 95 ml 95 ml UD PRN IV 02/24/16 12:00 02/28/16 11:59 Midazolam HCl 250 ml @ 0 mls/hr Q0M PRN IV 02/24/16 17:30 03/25/16 17:29 02/27/16 13:08 20 MLS/HR Pantoprazole Sodium/Syringe (Protonix Inj/ Syringe) 10 ml @ 5 mls/min DAILY@09,21 IV 02/24/16 21:00 03/25/16 20:59 02/27/16 08:47 5 MLS/MIN Chlorhexidine Gluconate (Peridex Oral Soln) 15 ml BID MT 02/24/16 21:00 03/25/16 20:59 02/27/16 07:54 15 ML Insulin Aspart SLIDING SCALE If C... Q6 SC 02/25/16 00:00 03/26/16 00:00 02/27/16 17:27 1 UNITS Fentanyl Citrate (Fentanyl Drip 1250MCG/250 Nss) 250 ml @ 0 mls/hr Q0M PRN IV 02/24/16 21:45 03/09/16 21:44 02/27/16 05:23 10 MLS/HR Ipratropium [place] (Atrovent Hfa Inhaler) 8 puffs Q4R INH 02/25/16 13:15 03/26/16 13:14 02/27/16 15:32 8 PUFFS Albuterol (Ventolin Hfa Inhaler) 8 puffs Q4R INH 02/25/16 13:15 03/26/16 13:14 02/27/16 15:32 8 PUFFS Albuterol 4 puffs 4 puffs Q2R PRN INH 02/25/16 10:45 03/26/16 10:44 Rocuronium [place]/Sodium Chloride (Zemuron Inj/Nss 100ml) 200 ml @ 0 mls/hr Q0M PRN IV 02/26/16 02:00 03/27/16 01:59 02/27/16 13:09 14 MLS/HR Labetalol HCl (Normodyne IV) 15 mg Q1H PRN IV 02/26/16 08:00 03/27/16 07:59 Ioversol (Optiray 320) 125 ml UD PRN IV 02/26/16 14:00 03/01/16 13:59 Enteral Nutritional Formula (Peptamen Intense VHP) 1,000 ml UD OG 02/26/16 15:30 03/27/16 15:29 02/27/16 16:39 1,000 ML Aspirin (Aspirin Chew) 81 mg QAM PO 02/27/16 09:00 03/28/16 08:59 02/27/16 09:32 81 MG Insulin Glargine (Lantus Solostar Pen) 10 unit HS SC 02/27/16 21:00 03/28/16 20:59 Insulin Aspart 3 units 3 units Q6 SC 02/27/16 13:45 03/28/16 13:44 02/27/16 17:27 3 UNITS Methylprednisolone Sodium Succinate/ Syringe (Solu-Medrol IV/ Syringe) 0.96 ml @ 1.5 mls/min Q6H IV 02/27/16 20:00 03/28/16 19:59 Artificial Tears 2 drops 2 drops Q4H OP 02/27/16 16:00 03/28/16 15:59 02/27/16 16:04 2 DROPS Dexmedetomidine HCl/Sodium Chloride (PreCEDEX INJ/ Nss 100ml) 100 ml @ 0 mls/hr Q0M PRN IV 02/27/16 17:00 03/02/16 16:59 02/27/16 17:28 15 MLS/HR Metoprolol Tartrate (Lopressor Iv) 5 mg Q6 PRN IV 02/27/16 18:00 03/28/16 17:59 Propofol (Diprivan IV 100ML VIAL) 1 dose UD PRN IV 02/27/16 18:15 03/01/16 18:14
--- NOTE | 2016-02-27 23:57 | CRITICAL CARE PROGRESS NOTE ---
DATE: 02/27/2016 SUBJECTIVE: The patient remains critically ill and on the ventilator. Her care was discussed with her bedside nurse, Bernie. She is not having any significant endotracheal tube secretions and there were no acute events overnight. She remains on fentanyl, Versed and propofol infusions. Her rocuronium was discontinued this morning and she shortly thereafter became dyssynchronous on the ventilator. She has not had a bowel movement in the past few days. She is tolerating her tube feeds of Peptamen at 55 mL per hour. PHYSICAL EXAMINATION: VITAL SIGNS: Maximum temperature 36.8, blood pressure 113-168/60s-80s, heart rate 70-90, respiratory rate 22, pulse ox 93%. Ventilator settings are assist control rate 22, tidal volume 450, FiO2 40%, PEEP 8 GENERAL: On exam she is unresponsive, on rocuronium drip. LUNGS: Have more air movement today bilaterally. No wheezes, but breath sounds are distant. HEART: Regular rate and rhythm. ABDOMEN: Obese, soft, mildly distended, with hypoactive bowel sounds. EXTREMITIES: With trace edema. LABORATORY DATA: White blood cell count 4.09, hemoglobin 8.1, hematocrit 26.8, platelets 294. Sodium 143, potassium 4.4, chloride 104, CO2 35, BUN 22, creatinine 0.65, blood sugar 240, calcium 7.7, magnesium 3.1. MEDICATIONS: Acetaminophen, albuterol, amitriptyline, aspirin, atorvastatin, Symbicort, chlorhexidine, Lovenox, Peptamen, fentanyl, gabapentin, insulin, Atrovent, labetalol, Levaquin day 1, Cozaar, Solu-Medrol, Lopressor, Versed, Zofran, Protonix, Mirapex, propofol, rocuronium. IMAGING: Portable chest x-ray from this morning was reviewed and shows no acute infiltrate. CT scan from yesterday without PE. IMPRESSION: 1. Acute on chronic hypercapnic respiratory failure. 2. Acute exacerbation of chronic obstructive pulmonary disease. 3. Hypertension and tachycardia, improved. 4. History of gastroesophageal reflux disease. 5. History of hyperlipidemia. 6. History of tobacco use. PLAN: 1. NEUROLOGIC: I will begin Precedex and wean off the propofol. I would like to get her to a point where she does not need the rocuronium if she becomes quite dyssynchronous very quickly when I wean down her sedation. I have discontinued her [place] as she is on a fentanyl drip. 2. PULMONARY: Continue IV steroids, bronchodilators, Symbicort, Singulair. Many thanks to Dr. Solis for his recommendations for her care. Hopefully, we can get to the point where we can begin to wake her up and wean her without such dyssynchrony on the ventilator. Plateau pressures this afternoon were 26 and peak airway pressure is 40. I will decrease the steroids to 60 mg IV q. 6 hours. 3. CARDIOVASCULAR: Continue IV Lopressor, Cozaar and p.r.n. labetalol as well as aspirin. 4. GASTROINTESTINAL: She is tolerating her tube feeds and is at goal. Continue GI prophylaxis with proton pump inhibitor. 5. RENAL: She received 20 mg of IV Lasix this morning. Follow electrolytes and replace appropriately. 6. HEME: Her blood counts are dropping a bit. There is no sign of active bleeding. Continue to follow. 7. MISCELLANEOUS: Continue DVT prophylaxis with Lovenox. I updated the patient's daughters extensively yesterday. Questions were answered and support was provided. Critical care time, 40 minutes. EDUARDA
[2016-02-28] VITALS (19 sets, daily range): BP systolic 111–162; BP diastolic 68–88; PULSE 59–75; TEMP 36.6–38.4; O2SAT 94–97
[2016-02-28] MEDS: INSULIN ASPART 100 UNITS/ML 3 ML PEN SC SCH ×10 (00:17→23:58)
[2016-02-28] MEDS: DexMEDEtomidine HCL INJ 400 MCG in SODIUM CHLORIDE 0.9% 100ML 96 ML IV PRN ×3 (00:41→08:54)
[2016-02-28] MEDS: PROPOFOL IV EMULSION 10 MG/ML 100 ML VIAL IV PRN ×4 (02:41→20:38)
[2016-02-28] MEDS: METHYLPREDNISOLONE IV 60 MG in SYRINGE 0 ML IV SCH ×4 (02:42→19:43)
[2016-02-28] MEDS: ARTIFICIAL TEARS OP SOLN OP SCH ×12 (04:29→23:31)
[2016-02-28 05:54] LABS: IG% 0.4 %; LYMPH % 6.3 %; LYMPH ABS # 0.51 K/uL (1.2-3.4); MEAN CELL VOLUME 90.6 fL (80-100); MEAN CORPUSCULAR HEMOGLOBIN 27.8 pg (25-34); MEAN CORPUSCULAR HGB CONC 30.7 g/dl (32-36); MEAN PLATELET VOLUME 9.1 fL (7.4-10.4); MONO % 10.1 %; NEUT % 83.2 %; PLATELET COUNT 323 K/uL (130-400); WHITE BLOOD COUNT 8.08 K/uL (4.8-10.8)
[2016-02-28] MEDS: MIDAZOLAM 125MG/250ML D5W 250 ML IV PRN (05:54)
[2016-02-28 06:27] LABS: COMPLETE YES
[2016-02-28 06:54] LABS: BUN/CREATININE RATIO 38.2 (10-20); CALCIUM 8.6 mg/dl (8.5-10.1); CREATININE 0.83 mg/dl (0.60-1.20); MAGNESIUM 2.9 mg/dl (1.8-2.4); PHOSPHORUS 3.7 mg/dl (2.5-4.9); POTASSIUM 5.4 mmol/L (3.5-5.1)
[2016-02-28] MEDS: PANTOprazole INJ 40 MG in SYRINGE 0 ML IV SCH ×2 (07:49→19:44)
[2016-02-28] MEDS: GABAPENTIN 100 MG CAP PO SCH ×3 (07:50→19:48)
[2016-02-28] MEDS: ENOXAPARIN 40 MG/0.4 ML SYR SQ SCH (07:50)
[2016-02-28] MEDS: ASPIRIN 81 MG CHEW PO SCH (07:50)
[2016-02-28] MEDS: PRAMIPEXOLE DIHYDROCHLORIDE 0.5 MG TAB PO SCH ×3 (07:51→19:48)
[2016-02-28] MEDS: ATORVASTATIN 10 MG TAB PO SCH (07:51)
[2016-02-28] MEDS: CHLORHEXIDINE GLUCONATE 0.12% 480 ML MT SCH ×2 (07:52→19:44)
[2016-02-28] MEDS: IPRATROPIUM BROMIDE HFA INHALER INH SCH ×5 (08:14→23:36)
[2016-02-28] MEDS: ALBUTEROL HFA 8 GM INHALER INH SCH ×5 (08:14→23:36)
[2016-02-28] MEDS ORDERED: DOCUSATE SODIUM 100 MG/10 ML UDC PO STA (08:17)
[2016-02-28] MEDS ORDERED: FUROSEMIDE 40 MG/4 ML VIAL IV STA (08:17)
--- NOTE | 2016-02-28 08:19 | DIAGNOSTIC IMAGING REPORT ---
SINGLE VIEW CHEST CLINICAL HISTORY: Respiratory failure. FINDINGS: An AP, portable, upright chest radiograph is compared to study dated 02/27/2016 and correlated with chest CT dated 02/26/2016. The examination is degraded by portable technique, apical lordotic positioning, and patient rotation. A right PICC line, an endotracheal tube, and an enteric tube are unchanged in position. The heart is top normal for projection. The pulmonary vasculature is noncongested. There is atherosclerotic calcification of the thoracic aorta. Advanced emphysema and chronic interstitial thickening is similar to previous. There is bibasilar atelectasis. The lungs and pleural spaces are otherwise clear. No pneumothorax is seen. The skeletal structures are osteopenic. The bony thorax is grossly intact. IMPRESSION: 1. Stable lines and tubes. 2. Advanced emphysema with no acute cardiopulmonary abnormality. There has been no significant change from yesterday. Electronically signed by: Navin Fletcher M.D. 02/28/2016 8:17 AM
[2016-02-28] MEDS ORDERED: FUROSEMIDE INJ 40 MG in SYRINGE 0 ML IV ONE (08:45)
[2016-02-28 08:55] LABS: ISTAT ALLEN TEST Pass; ISTAT ARTERIAL BLOOD GAS HCO3 39 meq/L (19-24); ISTAT ARTERIAL BLOOD GAS PCO2 68 mmHg (35-46); ISTAT ARTERIAL BLOOD GAS PO2 80 mmHg (80-95); ISTAT ARTERIAL BLOOD GAS pH 7.37 (7.35-7.45); ISTAT CARBON DIOXIDE > 40 mEq/l (24-31); ISTAT DELIVERY SYSTEM Ventilator; ISTAT FIO2 35 %; ISTAT PEEP 8; ISTAT RATE 22; ISTAT SITE R Radial; VE 10.5; Vt 450
[2016-02-28] MEDS: DOCUSATE SODIUM 100 MG/10 ML UDC PO SCH ×2 (09:00→19:49)
[2016-02-28] MEDS: BUDESONIDE/FORMOTEROL FUMARATE 160/4.5 60 PUFFS/INHALER INH SCH ×2 (09:00→20:23)
[2016-02-28] MEDS ORDERED: FENTANYL CITRATE INJ 50 MCG/1 ML 2 ML VIAL IV ONE (09:15)
[2016-02-28] MEDS: FENTANYL 1250MCG/250ML NSS 250 ML IV PRN ×3 (09:51→23:45)
[2016-02-28 11:02] LABS: BUN/CREATININE RATIO 38.4 (10-20); CALCIUM 9.1 mg/dl (8.5-10.1); CREATININE 0.95 mg/dl (0.60-1.20); POTASSIUM 5.2 mmol/L (3.5-5.1)
[2016-02-28] MEDS: SODIUM CHLORIDE 0.9% IV PRN ×3 (11:21→23:44)
[2016-02-28] MEDS: DEXMEDETOMIDINE HCL IV PRN ×3 (11:21→23:44)
[2016-02-28] MEDS ORDERED: VANCOMYCIN INJ 1,000 MG in SODIUM CHLORIDE 0.9% 250ML 250 ML IV STA (11:28)
[2016-02-28] MEDS ORDERED: VANCOMYCIN CONSULT ACTIVE PRN (12:00)
[2016-02-28] MEDS: CEFEPIME IV 2,000 MG in DEXTROSE 5% 100ML 100 ML IV SCH ×2 (12:06→23:46)
[2016-02-28] MEDS ORDERED: VANCOMYCIN INJ 2,750 MG in SODIUM CHLORIDE 0.9% 500ML 500 ML IV ONE (13:00)
[2016-02-28 13:13] LABS: URINE APPEARANCE TURBID (CLEAR); URINE BILIRUBIN NEG (NEG); URINE COLOR YELLOW; URINE EPITHELIAL CELL AUTO >30 /lpf (0-5); URINE NITRITE NEG (NEG); URINE PH 5.5 (4.5-7.5); URINE SPECIFIC GRAVITY 1.015 (1.000-1.030); UROBILINOGEN NEG (NEG); ZZURINE CULT IF INDIC CATH YES
[2016-02-28 13:22] LABS: MANUAL MICROSCOPIC REQUIRED? NO; REVIEW REQ? YES
--- NOTE | 2016-02-28 14:24 | Pharmacy Progress Note ---
Glycemic: Assessment & Plan Date of Service Feb 28, 2016. Assessment & Plan Item Value Date Time Random Glucose 208 mg/dl H 02/28/16 1025 Random Glucose 206 mg/dl H 02/28/16 0525 Random Glucose 194 mg/dl H 02/27/16 1614 Bedside Glucose 211 mg/dl H 02/27/16 1202 Bedside Glucose 204 mg/dl H 02/27/16 0554 PLAN: Will further "TIGHTEN" Novolog CF. Continue Basal insulin and Novolog TF insulin. * Basal insulin: Lantus 10 units every HS, give 1/2 dose for BSGs < 120 mg/dL * Correctional Insulin: Novolog Correction per scale q 6 hours Goal Range: Low 140 mg/dL - High 180 mg/dL "Tighten" Correction Factor: 20 mg/dL/unit * Prandial insulin: Continue 3 units sq Novolog q 6 hours to cover carbs (27 grams q 6 hours in TF). Hold if TF held. Pharmacy will continue to monitor patient daily and write orders per [facility] inpatient glycemic control protocol. Thanks. * Please note that the plan above was derived based on current level of insulin resistance and hospital stress. These recommendations are appropriate for inpatient admission only. Plan of care upon discharge will need to be reassessed to avoid potential outpatient hypo/hyperglycemia.
--- NOTE | 2016-02-28 15:13 | Pharmacy Progress Note ---
Pharmacy Antibiotic Consult Date of Service: Feb 28, 2016. Pharmacy Dosing Scope Pharmacy is consulted to initiate Vancomycin IV dosing therapy, order appropriate labs and adjust drug dose/frequency. Subjective The patient is a 60 year old female admitted on Feb 22, 2016 at 02:05. Objective Height (Feet): 5 Height (Inches): 2.00 Weight (Kilograms): 113.200 Lab Results (24hrs): Laboratory Tests Test 02/27/16 16:14 02/28/16 05:25 02/28/16 10:25 BUN/Creatinine Ratio 39.9 38.2 38.4 Blood Urea Nitrogen 27 mg/dl 32 mg/dl 37 mg/dl Creatinine 0.67 mg/dl 0.83 mg/dl 0.95 mg/dl White Blood Count 8.08 K/uL Red Blood Count 3.20 M/uL Hemoglobin 8.9 g/dL Hematocrit 29.0 % Mean Corpuscular Volume 90.6 fL Mean Corpuscular Hemoglobin 27.8 pg Mean Corpuscular Hemoglobin Concent 30.7 g/dl Platelet Count 323 K/uL Mean Platelet Volume 9.1 fL Neutrophils (%) (Auto) 83.2 % Lymphocytes (%) (Auto) 6.3 % Monocytes (%) (Auto) 10.1 % Eosinophils (%) (Auto) 0.0 % Basophils (%) (Auto) 0.0 % Neutrophils # (Auto) 6.72 K/uL Lymphocytes # (Auto) 0.51 K/uL Monocytes # (Auto) 0.82 K/uL Eosinophils # (Auto) 0.00 K/uL Basophils # (Auto) 0.00 K/uL Micro Results: Item Value Date Time Blood Culture Received 02/28/16 1201 Blood Pending Blood Culture Received 02/28/16 1153 Blood Pending Urine Culture Received 02/28/16 0000 Urine,Catheterized Pending MRSA DNA Surveillance Screen - Final Complete 02/22/16 2304 Nasal Specimen Negative for MRSA by DNA Probe Recent Pertinent Medications Item Value Date Time Cefepime HCl 2000 112.5 ml @ 200 mls/hr 02/28/16 1200 mg/Dextrose Q12@0000,1200/IV 02/28/16 1206 Levofloxacin 500 100 ml @ 100 mls/hr 02/22/16 2200 mg/Prmx Q24H/IV 02/27/162114 Assessment & Plan 60 yo F intubated in ICU on Levaquin IV, spiked fever early this AM, and coverage broadened by adding Vancomycin IV and Cefepime IV. Due to obesity (BMI 45.6 kg/m2) patient is at risk for Vancomycin accumulation. Plan: * Loading dose: 2750 mg IV X 1 dose * Continue 1550 mg IV every 12 hours. (aggressive but taking into consideration obesity) * Goal trough level estimate: between 15 - 20 mcg/mL. (critically ill) * A trough level has been ordered for: @ 1130 prior to the 1200 dose. Pharmacy will continue to follow and will adjust dose/frequency as necessary. Thank you
[2016-02-28 15:50] LABS: BUN/CREATININE RATIO 38.9 (10-20); CALCIUM 8.8 mg/dl (8.5-10.1); CREATININE 0.92 mg/dl (0.60-1.20); POTASSIUM 5.1 mmol/L (3.5-5.1)
--- NOTE | 2016-02-28 18:16 | CRITICAL CARE PROGRESS NOTE ---
DATE: 02/28/2016 HISTORY OF PRESENT ILLNESS: This is a 60-year-old -[place] woman with a history of chronic obstructive pulmonary disease with an FEV1 of 1.33 liters, 66% and FEV1/FVC 68% in 1994. She has multiple medical problems and was admitted to the hospital through the Emergency Department on February 20 for COPD exacerbation. She has been seen by the pulmonary service and was placed on bronchodilators, steroids and Levaquin. She also was requiring BiPAP. She was transferred to the intensive care unit on February 21 secondary to increased work of breathing. She received Xopenex bronchodilators and improved over the course of the next day or so. She would intermittently have episodes of severe shortness of breath, which I felt might be partially related to anxiety. On December 24, she had a prolonged episode of shortness of breath and started to retain carbon dioxide more significantly. She was intubated at that time and required paralysis secondary to elevated peak airway pressures. Since that time with efforts to come down on sedation have been challenging secondary to her dyssynchrony with the ventilator. When she was intubated, her steroids were increased as was the frequency of her bronchodilators. There were no acute events overnight. She remains off paralytics. She is on Precedex at 1.5 mcg per kilogram per minute and several attempts have been made today to decrease either her Versed, her fentanyl or her propofol. None of them have been very successful. She is tolerating her tube feeds of Peptamen at 60 mL per hour. She has not had a bowel movement since admission. She did have a fever to 38.4 this afternoon, so she was cultured and her antibiotics were broadened to include cefepime and vancomycin. PHYSICAL EXAMINATION: VITAL SIGNS: Maximum temperature 38.4, heart rate 60-70, respiratory rate 21-25, blood pressure 140-150/70s-80s, oxygen saturation 100% on assist control, rate 22, tidal volume 450, FiO2 35%, PEEP 8; 24-hour fluid balance is positive 630 mL NEUROLOGICAL: She is unresponsive to painful stimuli. Pupils are a bit difficult to assess but they are round and equal. LUNGS: Have decreased breath sounds throughout. No wheezing, rales or rhonchi. HEART: Regular rate and rhythm. ABDOMEN: Obese, moderately distended with hypoactive bowel sounds. EXTREMITIES: With 1+ edema. SCDs are on the bilateral lower extremities. LABORATORY DATA: White blood cell count 8.08, hemoglobin 8.9, hematocrit 29, platelets 323. Sodium 143, potassium 5.4, chloride 101, CO2 38, BUN 32, creatinine 0.83, blood sugar 206, magnesium 2.9. Urinalysis - large leukocyte esterase, greater than 30 white cells, budding hyphae. Blood cultures, urine culture, sputum culture pending. IMAGING DATA: Portable chest x-ray from this morning was reviewed and shows no definite infiltrate. Lines and tubes are in satisfactory position. MEDICATIONS AND INFUSIONS: Acetaminophen, albuterol, artificial tears, aspirin, atorvastatin, Symbicort, cefepime, chlorhexidine, Precedex, Colace, Lovenox, Peptamen, fentanyl, gabapentin, insulin, Atrovent, labetalol, Levaquin, Solu-Medrol, Lopressor, Versed, Zofran, Protonix, Mirapex, propofol, and vancomycin. IMPRESSION: 1. Acute on chronic hypercapnic respiratory failure, ventilator day 4. 2. Acute exacerbation of chronic obstructive pulmonary disease. 3. Urinary tract infection, bacterial versus fungal with fever today. 4. Hyperkalemia, the potassium has been trending up over the past couple of days; her Cozaar was discontinued today. 5. Diabetes mellitus with hyperglycemia, glycemic consultation was sought from the pharmacy service. 6. Anemia, likely secondary to hemodilution. No signs of active bleeding. Her fluid balance is positive for her hospitalization. She received Lasix 20 mg yesterday and 40 today IV. 7. History of gastroesophageal reflux disease. 8. Hypertension, tachycardia, improved. 9. History of hyperlipidemia. 10. History of tobacco use. 11. History of restless leg syndrome. PLAN: NEUROLOGIC: I would like to be able to wean off her Versed and avoid benzodiazepines altogether. Unfortunately, she becomes so dyssynchronous with the ventilator. We may need to work on weaning down the propofol and fentanyl first. I consulted the psychiatry service earlier in her admission to the ICU due to what I thought was anxiety and they were not impressed enough to start her on any medication for that. Wean off the Mirapex, I decreased the dose today. PULMONARY: Consider SIMV as a weaning mode for her. I think it might be useful if we could get her to place where she is on CPAP to determine what sort of flow she requires. Continue IV steroids and suggest weaning them again tomorrow. Continue bronchodilators, Symbicort and Singulair. Many thanks to Dr. Solis for his assistance in this patient's care. CARDIOVASCULAR: As noted above, the Cozaar was discontinued secondary to her potassium which has been trending up. Continue Lopressor and p.r.n. labetalol. Continue aspirin. GASTROINTESTINAL: Continue tube feeds and GI prophylaxis with proton pump inhibitor. I added Colace to her medication regimen today as well. RENAL: She has positive fluid balance for her admission. Gentle diuresis if possible. HEMATOLOGICAL: Follow blood counts and watch for any signs of bleeding. Continue DVT prophylaxis with Lovenox. I discussed the patient's care in detail with her daughters today and yesterday. Questions were answered and support was provided. Please call me with any questions or concerns. Critical care time 1 hour. EDUARDA
[2016-02-28] MEDS ORDERED: FLUCONAZOLE / NSS 200 MG in PREMIXED NSS 100 ML IV SCH (19:00)
[2016-02-28] MEDS: INSULIN GLARGINE SOLOSTAR 100 UNITS/ML 3 ML PEN SC SCH (21:41)
--- NOTE | 2016-02-28 23:24 | Progress Note ---
Medicine Progress Note Date & Time of Visit: Feb 28, 2016 at 17:20. Subjective Intubated, sedated Could not obtain ROS Failed trial of wean this morning Nurse noticed tube feeds coming through hose to ETT balloon--held TFs until am per ICU attending. Fever this afternoon to 38.4C-cultures obtained Objective Last 8 Hrs Date Time Temp Pulse Resp B/P Pulse Ox O2 Delivery O2 Flow Rate FiO2 02/28/16 16:00 35 02/28/16 16:00 Mechanical Ventilator 35 02/28/16 16:00 36.9 71 22 115/71 94 Mechanical Ventilator 35 02/28/16 15:30 35 02/28/16 14:23 35 02/28/16 13:46 37.7 02/28/16 12:04 71 22 111/68 95 Mechanical Ventilator 35 02/28/16 12:00 35 02/28/16 12:00 Mechanical Ventilator 35 02/28/16 11:02 35 02/28/16 11:00 38.4 70 22 129/75 96 Mechanical Ventilator 35 02/28/16 10:00 68 22 155/83 94 Mechanical Ventilator 35 Physical Exam: GEN: obese, intubated, sedated HEENT: NC/AT CARDIO: tachy, S1/2 heard without m/g/r LUNGS: wheezing throughout all lung pool ABD: soft, non-distended, no rebound or guarding (pt sedated) EXTREMITY: no LE swelling or edema, extremities are warm and well-perfused N/M: could not be assessed as patient is sedated SKIN: warm and dry Laboratory Results: Last 24 Hours Test 02/28/16 00:00 02/28/16 05:25 02/28/16 08:41 02/28/16 10:25 Urine Color YELLOW Urine Appearance TURBID Urine pH 5.5 Urine Specific [place] 1.015 Urine Protein NEG Urine Glucose (UA) NEG Urine Ketones NEG Urine Occult Blood 3+ Urine Nitrite NEG Urine Bilirubin NEG Urine Urobilinogen NEG Urine Leukocyte Esterase LARGE Urine WBC (Auto) >30 /hpf Urine RBC (Auto) 5-10 /hpf Urine Hyaline Casts (Auto) 1-5 /lpf Urine Epithelial Cells (Auto) >30 /lpf Urine Bacteria (Auto) 1+ Urine Pathogenic Casts /lpf Urine Yeast (Auto) BUDDING White Blood Count 8.08 K/uL Red Blood Count 3.20 M/uL Hemoglobin 8.9 g/dL Hematocrit 29.0 % Mean Corpuscular Volume 90.6 fL Mean Corpuscular Hemoglobin 27.8 pg Mean Corpuscular Hemoglobin Concent 30.7 g/dl Platelet Count 323 K/uL Mean Platelet Volume 9.1 fL Neutrophils (%) (Auto) 83.2 % Lymphocytes (%) (Auto) 6.3 % Monocytes (%) (Auto) 10.1 % Eosinophils (%) (Auto) 0.0 % Basophils (%) (Auto) 0.0 % Neutrophils # (Auto) 6.72 K/uL Lymphocytes # (Auto) 0.51 K/uL Monocytes # (Auto) 0.82 K/uL Eosinophils # (Auto) 0.00 K/uL Basophils # (Auto) 0.00 K/uL RDW Standard Deviation 47.4 fL RDW Coefficient of Variation 14.2 % Immature Granulocyte % (Auto) 0.4 % Immature Granulocyte # (Auto) 0.03 K/uL Nucleated RBC Absolute Count (auto) 0.10 K/uL Nucleated Red Blood Cells % 1.2 % Sodium Level 143 mmol/L 144 mmol/L Potassium Level 5.4 mmol/L 5.2 mmol/L Chloride Level 101 mmol/L 100 mmol/L Carbon Dioxide Level 38 mmol/L 39 mmol/L Anion Gap 4.0 mmol/L 5.0 mmol/L Blood Urea Nitrogen 32 mg/dl 37 mg/dl Creatinine 0.83 mg/dl 0.95 mg/dl Est Creatinine Clear Calc Drug Dose 84.7 ml/min 74.0 ml/min Estimated GFR () 88.2 74.9 Estimated GFR (Non- 76.1 64.6 BUN/Creatinine Ratio 38.2 38.4 Random Glucose 206 mg/dl 208 mg/dl Calcium Level 8.6 mg/dl 9.1 mg/dl Phosphorus Level 3.7 mg/dl Magnesium Level 2.9 mg/dl Blood Gas Sample Site R Radial Bedside Blood Gas pH (LAB) 7.37 Bedside Blood Gas pCO2 (LAB) 68 mmHg Bedside Blood Gas pO2 (LAB) 80 mmHg Bedside Blood Gas HCO3 (LAB) 39 meq/L Bedside Blood Gas Total CO2 > 40 mEq/l Bedside Blood Gas Base Excess (LAB) 14.0 meq/L Bedside Blood Gas O2 Saturation 94.0 % Ziyad Test Pass Oxygen Delivery Device Ventilator Bedside Oxygen Rate (breaths/min) 22 Blood Gas Minute Ventilation 10.5 Bedside FiO2 35 % Blood Gas Tidal Volume 450 Blood Gas PEEP 8 Test 02/28/16 15:20 Sodium Level 143 mmol/L Potassium Level 5.1 mmol/L Chloride Level 102 mmol/L Carbon Dioxide Level 38 mmol/L Anion Gap 3.0 mmol/L Blood Urea Nitrogen 36 mg/dl Creatinine 0.92 mg/dl Est Creatinine Clear Calc Drug Dose 76.4 ml/min Estimated GFR () 77.9 Estimated GFR (Non- 67.2 BUN/Creatinine Ratio 38.9 Random Glucose 188 mg/dl Calcium Level 8.8 mg/dl Date/Time Source Procedure Growth Status 02/28/16 12:01 Blood Blood Culture Pending Received 02/28/16 11:53 Blood Blood Culture Pending Received 02/28/16 00:00 Sputum Trach. Tube Suction Gram Stain Pending Received 02/28/16 00:00 Sputum Trach. Tube Suction Sputum Culture Pending Received 02/28/16 00:00 Urine,Catheterized Urine Culture Pending Received Assessment & Plan 60 yo F with a h/o COPD, DM and HTN presents with increasing shortness of breath 2/2 acute COPD exacerbation likely 2/2 acute bronchitis. She was subsequently intubated and paralyzed on 02/23 1. Acute on chronic hypercapnic respiratory failure 2/2 COPD exacerbation. Intubated-Day 4, cont management per ICU team including IV steroids and brochodilators. Pt not wheezing on exam but breath sounds are diminished. Off paralytics-failed trial of wean this am. Cont on Precedex, Versed, Fentanyl and Propofol. 2. UTI 3. Hyperkalemia-Cozaar stopped. 4. DMII-round goal, ISS. Tube feeds almost to goal 65 cc/hr. Glycemic pharmacist assisting with insulin. Lantus ordered 5. GERD-cont PPI 6. HTN-cont Lopressor and PRN Labetalol. Cozaar stopped 02/28/16 2/2 hyperkalemia. 7. Depression-psych eval revealed no readily identifiable depression, panic attack or TALIA present. 8. Anemia-baseline 12 and currently around 8. No evidence of bleeding, likely multifactorial including frequent phlebotomy. Pt was already decreased prior to admission, transfuse PRN ICU team recs. DVT proph-Lovenox GI prophy-Protonix Dispo-remain in ICU while intubated. Paola Manatee, DO [facility] Consultants: Pulm, ICU Current Inpatient Medications: Current Inpatient Medications Medications (Trade) Dose Ordered Sig/Allison Route Start Time Stop Time Status Last Admin Dose Admin Acetaminophen (Tylenol Tab) 650 mg Q4H PRN PO 02/22/16 02:15 03/23/16 02:14 02/28/16 12:06 650 MG Ondansetron HCl 4 mg 4 mg Q6H PRN IV 02/22/16 02:15 03/23/16 02:14 Levofloxacin/Prmx (Levaquin / D5W/ Premixed D5W) 100 ml @ 100 mls/hr Q24H IV 02/22/16 22:00 03/03/16 21:59 02/27/16 21:15 100 MLS/HR Glucose (Glucose 40% Gel) 15-30 GRAMS 15 GRAMS... UD PRN PO 02/22/16 02:15 03/23/16 02:14 Glucose (Glucose Chew Tab) 4-8 Tablets 4 Tabl... UD PRN PO 02/22/16 02:15 03/23/16 02:14 Dextrose (Dextrose 50% 50ML Syringe) 25-50ML OF 50% DW IV FOR... UD PRN IV 02/22/16 02:15 03/23/16 02:14 Glucagon (Glucagon Inj) 1 mg UD PRN SQ 02/22/16 02:15 03/23/16 02:14 Miscellaneous Information (Consult Glycemic Management Pharmacy) 1 ea UD PRN N/A 02/22/16 02:45 03/23/16 02:44 Atorvastatin Calcium (Lipitor Tab) 10 mg QAM PO 02/22/16 09:00 03/23/16 08:59 02/28/16 07:51 10 MG Gabapentin (Neurontin Cap) 100 mg TID PO 02/22/16 09:00 03/23/16 08:59 02/28/16 15:29 100 MG Miscellaneous Information (Order Awaiting Action) 1 ea QS N/A 02/22/16 05:30 03/23/16 05:29 Budesonide/ Formoterol Fumarate (Symbicort 160/ 4.5 Inh) 2 puffs BID INH 02/22/16 21:00 03/23/16 20:59 02/28/16 09:00 2 PUFFS Enoxaparin Sodium 40 mg 40 mg QAM SQ 02/23/16 09:00 03/24/16 08:59 02/28/16 07:50 40 MG Midazolam HCl 250 ml @ 0 mls/hr Q0M PRN IV 02/24/16 17:30 03/25/16 17:29 02/28/16 05:54 15 MLS/HR Pantoprazole Sodium/Syringe (Protonix Inj/ Syringe) 10 ml @ 5 mls/min DAILY@ IV 02/24/16 21:00 03/25/16 20:59 02/28/16 07:49 5 MLS/MIN Chlorhexidine Gluconate (Peridex Oral Soln) 15 ml BID MT 02/24/16 21:00 03/25/16 20:59 02/28/16 07:52 15 ML Insulin Aspart SLIDING SCALE If C... Q6 SC 02/25/16 00:00 03/26/16 00:00 02/28/16 12:10 3 UNITS Fentanyl Citrate (Fentanyl Drip 1250MCG/250 Nss) 250 ml @ 0 mls/hr Q0M PRN IV 02/24/16 21:45 03/09/16 21:44 02/28/16 16:52 40 MLS/HR Ipratropium Electra (Atrovent Hfa Inhaler) 8 puffs Q4R INH 02/25/16 13:15 03/26/16 13:14 02/28/16 15:30 8 PUFFS Albuterol (Ventolin Hfa Inhaler) 8 puffs Q4R INH 02/25/16 13:15 03/26/16 13:14 02/28/16 15:30 8 PUFFS Albuterol 4 puffs 4 puffs Q2R PRN INH 02/25/16 10:45 03/26/16 10:44 Rocuronium Electra/Sodium Chloride (Zemuron Inj/Nss 100ml) 200 ml @ 0 mls/hr Q0M PRN IV 02/26/16 02:00 03/27/16 01:59 02/27/16 13:09 14 MLS/HR Ioversol (Optiray 320) 125 ml UD PRN IV 02/26/16 14:00 03/01/16 13:59 Enteral Nutritional Formula (Peptamen Intense VHP) 1,000 ml UD OG 02/26/16 15:30 03/27/16 15:29 02/27/16 16:39 1,000 ML Aspirin (Aspirin Chew) 81 mg QAM PO 02/27/16 09:00 03/28/16 08:59 02/28/16 07:50 81 MG Insulin Glargine (Lantus Solostar Pen) 10 unit HS SC 02/27/16 21:00 03/28/16 20:59 02/27/16 21:13 10 UNIT Insulin Aspart 3 units 3 units Q6 SC 02/27/16 13:45 03/28/16 13:44 02/28/16 12:16 3 UNITS Methylprednisolone Sodium Succinate/ Syringe (Solu-Medrol IV/ Syringe) 0.96 ml @ 1.5 mls/min Q6H IV 02/27/16 20:00 03/28/16 19:59 02/28/16 15:30 1.5 MLS/MIN Artificial Tears (Artificial Tears) 2 drops Q4H OP 02/27/16 16:00 03/28/16 15:59 02/28/16 15:30 2 DROPS Metoprolol Tartrate (Lopressor Iv) 5 mg Q6 PRN IV 02/27/16 18:00 03/28/16 17:59 Propofol (Diprivan IV 100ML VIAL) 1 dose UD PRN IV 02/27/16 18:15 03/01/16 18:14 02/28/16 15:32 1 DOSE Pramipexole Dihydrochloride (miraPEX TAB) 0.25 mg BID PO 02/28/16 09:00 03/29/16 08:59 Docusate Sodium (coLACE SYRUP) 100 mg BID PO 02/28/16 09:00 03/29/16 08:59 Labetalol HCl 20 mg 20 mg Q1H PRN IV 02/28/16 10:00 03/29/16 09:59 Dexmedetomidine HCl 1000 mcg/ Sodium Chloride 250 ml @ 0 mls/hr Q0M PRN IV 02/28/16 11:15 03/02/16 16:59 02/28/16 11:21 43 MLS/HR Cefepime HCl/ Dextrose (Maxipime IV/D5 100ml) 112.5 ml @ 200 mls/hr Q12@0000,1200 IV 02/28/16 12:00 03/09/16 11:59 02/28/16 12:06 200 MLS/HR Vancomycin HCl 1 ea 1 ea UD PRN N/A 02/28/16 12:00 03/29/16 11:59 Vancomycin HCl/ Sodium Chloride (Vancomycin Inj/ Nss 500ml) 531 ml @ 200 mls/hr Q12H IV 02/29/16 00:00 03/10/16 00:00
[2016-02-28] MEDS: VANCOMYCIN INJ 1,550 MG in SODIUM CHLORIDE 0.9% 500ML 500 ML IV SCH (23:46)
[2016-02-29] VITALS (15 sets, daily range): BP systolic 135–194; BP diastolic 81–111; PULSE 56–143; TEMP 36.7–37.8; O2SAT 92–99
[2016-02-29] MEDS: METHYLPREDNISOLONE IV 60 MG in SYRINGE 0 ML IV SCH ×4 (02:18→20:23)
[2016-02-29] MEDS: PROPOFOL IV EMULSION 10 MG/ML 100 ML VIAL IV PRN (03:08)
[2016-02-29] MEDS: ALBUTEROL HFA 8 GM INHALER INH SCH ×6 (03:40→23:26)
[2016-02-29] MEDS: IPRATROPIUM BROMIDE HFA INHALER INH SCH ×6 (03:40→23:26)
[2016-02-29] MEDS: ARTIFICIAL TEARS OP SOLN OP SCH ×10 (04:03→20:23)
[2016-02-29 05:24] LABS: HEMATOCRIT 28.4 % (37-47); IG% 0.4 %; LYMPH % 9.7 %; LYMPH ABS # 0.48 K/uL (1.2-3.4); MEAN CORPUSCULAR HEMOGLOBIN 27.9 pg (25-34); MEAN CORPUSCULAR HGB CONC 30.6 g/dl (32-36); MEAN PLATELET VOLUME 9.6 fL (7.4-10.4); MONO % 9.7 %; NEUT % 80.2 %; PLATELET COUNT 305 K/uL (130-400); RED BLOOD COUNT 3.12 M/uL (4.2-5.4); WHITE BLOOD COUNT 4.97 K/uL (4.8-10.8)
[2016-02-29] MEDS: SODIUM CHLORIDE 0.9% IV PRN (05:55)
[2016-02-29] MEDS: DEXMEDETOMIDINE HCL IV PRN (05:55)
[2016-02-29 05:57] LABS: CALCIUM 7.9 mg/dl (8.5-10.1); CREATININE 0.71 mg/dl (0.60-1.20); POTASSIUM 5.2 mmol/L (3.5-5.1)
[2016-02-29] MEDS: INSULIN ASPART 100 UNITS/ML 3 ML PEN SC SCH ×5 (06:04→18:00)
[2016-02-29 06:05] LABS: PHOSPHORUS 4.4 mg/dl (2.5-4.9)
[2016-02-29 06:12] LABS: MAGNESIUM 2.9 mg/dl (1.8-2.4)
[2016-02-29] MEDS: MIDAZOLAM 125MG/250ML D5W 250 ML IV PRN (06:22)
[2016-02-29 06:38] LABS: COMPLETE YES
--- NOTE | 2016-02-29 07:29 | DIAGNOSTIC IMAGING REPORT ---
CHEST ONE VIEW PORTABLE HISTORY: respiratory failure COMPARISON: Chest 02/28/2016. FINDINGS: Endotracheal tube terminates 2.6 cm from the romina. Right PICC catheter terminates in the SVC. No pneumothorax. Hyperlucent lung apices favor emphysema. Improved aeration within the right medial lung base. The left lung is clear. The heart is normal in size. No pleural effusions. Nasogastric tube is difficult to visualize but likely terminates below the level of the diaphragm. IMPRESSION: Satisfactory support line placement. Improved aeration within the right medial lung base. Electronically signed by: Francesco Rowe M.D. 02/29/2016 7:28 AM
[2016-02-29] MEDS: PANTOprazole INJ 40 MG in SYRINGE 0 ML IV SCH ×2 (07:48→20:22)
[2016-02-29] MEDS: CHLORHEXIDINE GLUCONATE 0.12% 480 ML MT SCH ×2 (07:49→20:24)
[2016-02-29] MEDS: DOCUSATE SODIUM 100 MG/10 ML UDC PO SCH ×2 (07:50→20:21)
[2016-02-29] MEDS: BUDESONIDE/FORMOTEROL FUMARATE 160/4.5 60 PUFFS/INHALER INH SCH ×2 (07:50→19:27)
[2016-02-29] MEDS: ATORVASTATIN 10 MG TAB PO SCH (07:50)
[2016-02-29] MEDS: ASPIRIN 81 MG CHEW PO SCH (07:50)
[2016-02-29] MEDS: PRAMIPEXOLE DIHYDROCHLORIDE 0.5 MG TAB PO SCH ×2 (07:51→20:22)
[2016-02-29] MEDS: GABAPENTIN 100 MG CAP PO SCH (07:52)
[2016-02-29] MEDS: ENOXAPARIN 40 MG/0.4 ML SYR SQ SCH (07:54)
[2016-02-29 10:47] LABS: ALKALINE PHOSPHATASE 49 U/L (45-117); ALT/SGPT 36 U/L (12-78); AST/SGOT 18 U/L (15-37)
[2016-02-29] MEDS ORDERED: DexMEDEtomidine HCL INJ 1,000 MCG in SODIUM CHLORIDE 0.9% 250ML 240 ML IV PRN (12:30)
[2016-02-29] MEDS ORDERED: HydrALAZINE HCL 20 MG/ML VIAL IV. PRN (12:45)
[2016-02-29] MEDS: CEFEPIME IV 2,000 MG in DEXTROSE 5% 100ML 100 ML IV SCH (13:22)
[2016-02-29] MEDS ORDERED: METOCLOPRAMIDE HCL INJ 5 MG/ML 2 ML VIAL IV ONE (14:00)
[2016-02-29] MEDS: VANCOMYCIN INJ 1,550 MG in SODIUM CHLORIDE 0.9% 500ML 500 ML IV SCH (14:00)
[2016-02-29] MEDS ORDERED: METOCLOPRAMIDE HCL INJ 5 MG/ML 2 ML VIAL IM ONE (14:00)
[2016-02-29] MEDS: GABAPENTIN 250 MG/5 ML 470 ML BTL NG SCH ×2 (14:01→20:22)
--- NOTE | 2016-02-29 14:50 | DIAGNOSTIC IMAGING REPORT ---
KUB CLINICAL HISTORY: Nasogastric tube location. COMPARISON STUDY: None. FINDINGS: The tip of the nasogastric tube projects over the distal stomach. Visualized bowel gas pattern is normal. The pelvis was not included. IMPRESSION: Tip of nasogastric tube projects over the distal stomach. Electronically signed by: Agustin Hall M.D. 02/29/2016 2:48 PM
--- NOTE | 2016-02-29 15:03 | Pharmacy Progress Note ---
Glycemic Control: Progress Nt Date of Service Feb 29, 2016. Scope Glycemic Pharmacist consulted by Dr Murillo on 02/22/16 for glycemic control and to write orders per [facility] inpatient glycemic control protocol. Objective Accuchecks BSG (last 24hrs): Test 02/28/16 15:20 02/28/16 18:02 02/28/16 21:30 02/28/16 23:19 Random Glucose 188 mg/dl (70-99) Bedside Glucose 169 mg/dl (70-90) 193 mg/dl (70-90) 225 mg/dl (70-90) Test 02/29/16 04:52 02/29/16 13:16 Random Glucose 210 mg/dl (70-99) Bedside Glucose 177 mg/dl (70-90) Laboratory Data (last 24hrs) Test 02/28/16 15:20 02/29/16 04:52 Anion Gap 3.0 mmol/L 2.0 mmol/L BUN/Creatinine Ratio 38.9 44.0 Blood Urea Nitrogen 36 mg/dl 31 mg/dl Creatinine 0.92 mg/dl 0.71 mg/dl Potassium Level 5.1 mmol/L 5.2 mmol/L Sodium Level 143 mmol/L 144 mmol/L White Blood Count 4.97 K/uL Red Blood Count 3.12 M/uL Hemoglobin 8.7 g/dL Hematocrit 28.4 % Mean Corpuscular Volume 91.0 fL Mean Corpuscular Hemoglobin 27.9 pg Mean Corpuscular Hemoglobin Concent 30.6 g/dl Platelet Count 305 K/uL Mean Platelet Volume 9.6 fL Neutrophils (%) (Auto) 80.2 % Lymphocytes (%) (Auto) 9.7 % Monocytes (%) (Auto) 9.7 % Eosinophils (%) (Auto) 0.0 % Basophils (%) (Auto) 0.0 % Neutrophils # (Auto) 3.99 K/uL Lymphocytes # (Auto) 0.48 K/uL Monocytes # (Auto) 0.48 K/uL Eosinophils # (Auto) 0.00 K/uL Basophils # (Auto) 0.00 K/uL HbA1c: Test 02/23/16 05:32 Hemoglobin A1c 6.7 % (4.5-5.6) H Recent Pertinent Medications Outpatient Anti-diabetic Regimen: * Glimepiride 0.5mg PO Q AM * Metformin 1000mg PO BID * A1c = 6.9 % 04/02/15 The patient is currently receiving: * Basal insulin: Lantus 10 units SQ Q HS; give 1/2 dose if BSG less than 120 * Correctional Insulin: Novolog Correction per scale ACHS Goal Range: Low 140 mg/dL - High 180 mg/dL Correction Factor: 20 mg/dL/unit * Prandial insulin: Novolog 3 units Q 6 hrs to cover carbs in continuous tube feeds (roughly equivalent to CR of 1:9) * Oral Agents: None currently Risk Factors for Insulin Resistance: * Steroids: Solu-Medrol 60mg IV Q 6 hours * Infection: receiving Vancomycin + Cefepime for new fever; possible UTI, aspiration? * Diet: Peptamen feeding had been running at 60cc/hr (~27gm carbs every 6 hours) * Mechanical Ventilation: Yes Assessment & Plan ASSESSMENT: 02/22/16 * Type 2 diabetic admitted w/ COPD exacerbation failing treatment w/ outpt abx and prednisone. * She is treated w/ 2 oral hypoglycemics - that are currently on hold; and should remain on hold as she is now receiving high dose IV corticosteroids. Will use SQ basal/bolus regimen to achieve glycemic targets. * She has been admitted in the past and received SQ Novolog (CF + CR) alone to control hyperglycemia while on IV steroids; she was not given basal insulin or her oral hypoglycemics. Her current fasting BSG is 202; so I am inclined to give a single small dose of Lantus this AM and reevaluate basal needs tomorrow AM. Perhaps she is more stressed this admission and may require some basal insulin. * The current Novolog CF and CR are reasonable, however the CR dose could be increased a little. * Most recent A1c is from 03/2015; will check w/ AM labs tomorrow to determine appropriateness of outpt regimen 02/29/16 * BSGs have ranged 177-232 over the last 24 hours * She has received 28 units of SQ insulin over the last 24 hrs * Tube feeds have been on hold due to increased residuals, lack of BM, decreased BS, and concern for malposition of feeding tube. A repeat KUB to be done today to confirm position before restarting feeds. Also to receive metoclopramide IV x 1 today to stim GI motility * Will change Novolog order to allow for greater flexibility with carb coverage of tube feeds. Will use a CR of 1:7 * Will need to monitor for falling BSGs as tube feeds are held with continued Lantus dosing. Pt is on ATC steroids and on mech vent, so likely needs some amount of basal insulin. There is a "half-dose" parameter should BSG dip too low. PLAN FOR INPATIENT GLYCEMIC CONTROL: * Continue Lantus 10 units Q HS; give 1/2 dose if BSG less than 120 * Continuing correction factor of 20 mg/dl/unit * Changing carb ratio to 1 unit per 7 grams CHO consumed * give 2 units for Peptamen @20cc/hr * give 3 units for Peptamen @40cc/hr * give 4 units for Peptamen @60cc/hr * Continue goal range of Low 140 mg/dL - High 180 mg/dL * Reevaluate insulin doses with each step down in steroid dose * Please note that the plan above was derived based on current level of insulin resistance and hospital stress. These recommendations are appropriate for inpatient admission only. Plan of care upon discharge will need to be reassessed to avoid potential outpatient hypo/hyperglycemia. Thank you.
[2016-02-29] MEDS ORDERED: INSULIN ASPART 100 UNITS/ML 3 ML PEN SC SCH (18:00)
[2016-02-29] MEDS: PEPTAMEN INTENSE VHP 1000ML BAG OG SCH (18:10)
[2016-02-29] MEDS: KETAMINE HCL INJ 500 MG in SODIUM CHLORIDE 0.9% 500ML 490 ML IV PRN (19:54)
--- NOTE | 2016-02-29 20:07 | Critical Care Progress Note ---
Critical Care Progress Note Date of Service Feb 29, 2016. Attending Dr. Giordano Subjective Patient heavily sedated rest of -3 Objective GEN: obese, intubated, sedated HEENT: NC/AT CARDIO: tachy, S1/2 heard without m/g/r LUNGS: wheezing throughout all lung pool Lung compliance 30, auto PEEP 19, exhalation not returning to baseline prolonged I:E ratio ABD: soft, non-distended, no rebound or guarding (pt sedated) EXTREMITY: no LE swelling or edema, extremities are warm and well-perfused N/M: could not be assessed as patient is sedated SKIN: warm and dry Assessment & Plan IMPRESSION: 1. Acute on chronic hypercapnic respiratory failure, ventilator day 5. 2. Acute exacerbation of chronic obstructive pulmonary disease. 3. Urinary tract infection, greater than 100,000 staphylococcal species . 4. Hyperkalemia, the potassium has been trending up over the past couple of days; her Cozaar was discontinued today. 5. Diabetes mellitus with hyperglycemia, glycemic consultation was sought from the pharmacy service. 6. Anemia, likely secondary to hemodilution. No signs of active bleeding. Her fluid balance is positive for her hospitalization. She received Lasix 20 mg yesterday and 40 today IV. 7. History of gastroesophageal reflux disease. 8. Hypertension, tachycardia, improved. 9. History of hyperlipidemia. 10. History of tobacco use. 11. History of restless leg syndrome. PLAN: NEUROLOGIC: Breath course of the day were able to discontinue the propofol, fentanyl, Versed, dexmedetomidine and instituted ketamine infusion. Upon evaluation of the p.m. patient was still RASS -3, however would open her eyes to verbal stimuli. I suspect the patient has metabolites of both propofol and fentanyl given her large volume distribution and prolonged effect secondary to the Diflucan she was on. PULMONARY: Patient has been converted to pressure support ventilation pressure support of 10, PEEP of 5, improved ventilator synchrony. Continue bronchodilators and pulmonary aggressive pulmonary toilet. Reportedly patient had possible tube feed aspiration, head of bed at 45 CARDIOVASCULAR: Episodes of hypertension and tachycardia, will continue with hydralazine for hypertension will shy away from beta blockers GASTROINTESTINAL: KUB was reviewed to ensure course he was in place, tube feeds were able to be restarted, will add mineral oil for constipation, likely secondary to heavy narcotic burden, given dose of Reglan and mineral oil RENAL: Goal 1 L negative today HEMATOLOGICAL: Follow blood counts and watch for any signs of bleeding. Continue DVT prophylaxis with Lovenox. I have personally spent 55 minutes of critical care time in the direct management of this patient. Patient critically ill due to status asthmaticus, acute hypercarbic respiratory failure, altered mental status. This includes time spent evaluating patient, direct bedside care, chart review, placing orders , interpretation of diagnostic studies, discussion with consultants, patient, and family members, as well as other required patient management activities. This time is exclusive of all separately billable procedures, and teaching time and separate from and in addition to any other critical care service time. Data Medications: Current Inpatient Medications Medications (Trade) Dose Ordered Sig/Allison Route Start Time Stop Time Status Last Admin Dose Admin Acetaminophen (Tylenol Tab) 650 mg Q4H PRN PO 02/22/16 02:15 03/23/16 02:14 02/28/16 12:06 650 MG Ondansetron HCl (Zofran Inj) 4 mg Q6H PRN IV 02/22/16 02:15 03/23/16 02:14 Glucose (Glucose 40% Gel) 15-30 GRAMS 15 GRAMS... UD PRN PO 02/22/16 02:15 03/23/16 02:14 Glucose (Glucose Chew Tab) 4-8 Tablets 4 Tabl... UD PRN PO 02/22/16 02:15 03/23/16 02:14 Dextrose (Dextrose 50% 50ML Syringe) 25-50ML OF 50% DW IV FOR... UD PRN IV 02/22/16 02:15 03/23/16 02:14 Glucagon (Glucagon Inj) 1 mg UD PRN SQ 02/22/16 02:15 03/23/16 02:14 Miscellaneous Information (Consult Glycemic Management Pharmacy) 1 ea UD PRN N/A 02/22/16 02:45 03/23/16 02:44 Atorvastatin Calcium (Lipitor Tab) 10 mg QAM PO 02/22/16 09:00 03/23/16 08:59 02/29/16 07:50 10 MG Miscellaneous Information (Order Awaiting Action) 1 ea QS N/A 02/22/16 05:30 03/23/16 05:29 Budesonide/ Formoterol Fumarate (Symbicort 160/ 4.5 Inh) 2 puffs BID INH 02/22/16 21:00 03/23/16 20:59 02/29/16 07:50 2 PUFFS Enoxaparin Sodium 40 mg 40 mg QAM SQ 02/23/16 09:00 03/24/16 08:59 02/29/16 07:54 40 MG Midazolam HCl 250 ml @ 0 mls/hr Q0M PRN IV 02/24/16 17:30 03/25/16 17:29 02/29/16 06:22 10 MLS/HR Pantoprazole Sodium/Syringe (Protonix Inj/ Syringe) 10 ml @ 5 mls/min DAILY@ IV 02/24/16 21:00 02/29/16 23:59 02/29/16 07:48 5 MLS/MIN Chlorhexidine Gluconate (Peridex Oral Soln) 15 ml BID MT 02/24/16 21:00 03/25/16 20:59 02/29/16 07:49 15 ML Insulin Aspart SLIDING SCALE If C... Q6 SC 02/25/16 00:00 03/26/16 00:00 02/29/16 06:04 1 UNITS Fentanyl Citrate (Fentanyl Drip 1250MCG/250 Nss) 250 ml @ 0 mls/hr Q0M PRN IV 02/24/16 21:45 03/09/16 21:44 02/28/16 23:45 40 MLS/HR Ipratropium [place] (Atrovent Hfa Inhaler) 8 puffs Q4R INH 02/25/16 13:15 03/26/16 13:14 02/29/16 14:25 8 PUFFS Albuterol (Ventolin Hfa Inhaler) 8 puffs Q4R INH 02/25/16 13:15 03/26/16 13:14 02/29/16 14:25 8 PUFFS Albuterol 4 puffs 4 puffs Q2R PRN INH 02/25/16 10:45 03/26/16 10:44 Rocuronium [place]/Sodium Chloride (Zemuron Inj/Nss 100ml) 200 ml @ 0 mls/hr Q0M PRN IV 02/26/16 02:00 03/27/16 01:59 02/27/16 13:09 14 MLS/HR Ioversol (Optiray 320) 125 ml UD PRN IV 02/26/16 14:00 03/01/16 13:59 Enteral Nutritional Formula (Peptamen Intense VHP) 1,000 ml UD OG 02/26/16 15:30 03/27/16 15:29 02/29/16 18:10 1,000 ML Aspirin (Aspirin Chew) 81 mg QAM PO 02/27/16 09:00 03/28/16 08:59 02/29/16 07:50 81 MG Insulin Glargine 10 unit 10 unit HS SC 02/27/16 21:00 03/28/16 20:59 02/28/16 21:41 10 UNIT Methylprednisolone Sodium Succinate/ Syringe (Solu-Medrol IV/ Syringe) 0.96 ml @ 1.5 mls/min Q6H IV 02/27/16 20:00 03/28/16 19:59 02/29/16 14:02 1.5 MLS/MIN Artificial Tears (Artificial Tears) 2 drops Q4H OP 02/27/16 16:00 03/28/16 15:59 02/29/16 15:29 2 DROPS Metoprolol Tartrate (Lopressor Iv) 5 mg Q6 PRN IV 02/27/16 18:00 03/28/16 17:59 Propofol (Diprivan IV 100ML VIAL) 1 dose UD PRN IV 02/27/16 18:15 03/01/16 18:14 02/29/16 03:08 1 DOSE Pramipexole Dihydrochloride (miraPEX TAB) 0.25 mg BID PO 02/28/16 09:00 03/29/16 08:59 02/29/16 07:51 0.25 MG Docusate Sodium (coLACE SYRUP) 100 mg BID PO 02/28/16 09:00 03/29/16 08:59 02/29/16 07:50 100 MG Labetalol HCl 20 mg 20 mg Q1H PRN IV 02/28/16 10:00 03/29/16 09:59 Cefepime HCl/ Dextrose (Maxipime IV/D5 100ml) 112.5 ml @ 200 mls/hr Q12@0000,1200 IV 02/28/16 12:00 03/09/16 11:59 02/29/16 13:22 200 MLS/HR Vancomycin HCl 1 ea 1 ea UD PRN N/A 02/28/16 12:00 03/29/16 11:59 Vancomycin HCl 1550 mg/Sodium Chloride 531 ml @ 200 mls/hr Q12H IV 02/29/16 00:00 03/10/16 00:00 Future hold 02/29/16 14:00 200 MLS/HR Ketamine HCl 500 mg/Sodium Chloride 500 ml @ 0 mls/hr Q0M PRN IV 02/29/16 10:30 03/30/16 10:29 Dexmedetomidine HCl/Sodium Chloride (PreCEDEX INJ/ Nss 250ml) 250 ml @ 0 mls/hr Q0M PRN IV 02/29/16 12:30 03/04/16 12:29 Gabapentin (Neurontin) 100 mg TID NG 02/29/16 14:00 03/30/16 13:59 02/29/16 14:01 100 MG Hydralazine HCl (HydrALAZINE INJ) 10 mg Q6H PRN IV. 02/29/16 12:45 03/30/16 12:44 Lansoprazole (Prevacid Solutab) 30 mg BID OG 03/01/16 09:00 03/31/16 08:59 I & O: 24-Hour Column 02/29/16 08:00 Intake Total 4596 ml Output Total 4875 ml Balance -279 ml Vital Signs: Date Time Temp Pulse Resp B/P Pulse Ox O2 Delivery O2 Flow Rate FiO2 02/29/16 19:23 35 02/29/16 17:50 35 02/29/16 17:00 37.8 132 28 167/93 98 Mechanical Ventilator 30 02/29/16 16:00 30 02/29/16 16:00 143 32 162/101 97 Mechanical Ventilator 30 02/29/16 16:00 92 Mechanical Ventilator 30 02/29/16 14:25 35 02/29/16 14:00 37.8 124 16 153/101 95 Mechanical Ventilator 30 02/29/16 12:00 95 Mechanical Ventilator 30 02/29/16 12:00 30 02/29/16 12:00 90 16 177/99 95 CPAP 30 02/29/16 11:15 35 02/29/16 10:00 37.7 73 28 186/90 96 Mechanical Ventilator 30 02/29/16 09:00 57 24 174/90 98 Mechanical Ventilator 35 02/29/16 08:00 37.5 56 22 160/81 99 Mechanical Ventilator 35 02/29/16 08:00 99 Mechanical Ventilator 02/29/16 08:00 35 02/29/16 07:50 35 02/29/16 06:00 58 22 158/81 97 02/29/16 05:33 35 02/29/16 04:00 Mechanical Ventilator 35 02/29/16 04:00 35 02/29/16 03:58 37.4 57 22 150/86 96 Mechanical Ventilator 35 02/29/16 03:40 35 02/29/16 02:59 58 22 145/83 96 Mechanical Ventilator 35 02/29/16 02:18 35 02/29/16 01:58 59 22 155/84 96 Mechanical Ventilator 35 02/29/16 00:59 37.8 58 22 159/84 96 Mechanical Ventilator 35 02/29/16 00:01 35 02/29/16 00:01 Mechanical Ventilator 35 02/28/16 23:58 59 22 162/86 96 Mechanical Ventilator 35 02/28/16 23:36 35 02/28/16 22:58 60 22 147/83 95 Mechanical Ventilator 35 02/28/16 21:59 60 22 146/86 96 Mechanical Ventilator 35 02/28/16 20:58 60 22 160/88 97 Mechanical Ventilator 35 02/28/16 20:30 35 02/28/16 20:00 35 02/28/16 20:00 Mechanical Ventilator 35 02/28/16 19:58 37.2 63 22 141/83 Mechanical Ventilator 35 Laboratory Results: Last 24 Hours Test 02/28/16 21:30 02/28/16 23:19 02/29/16 04:52 02/29/16 10:18 Bedside Glucose 193 mg/dl 225 mg/dl White Blood Count 4.97 K/uL Red Blood Count 3.12 M/uL Hemoglobin 8.7 g/dL Hematocrit 28.4 % Mean Corpuscular Volume 91.0 fL Mean Corpuscular Hemoglobin 27.9 pg Mean Corpuscular Hemoglobin Concent 30.6 g/dl Platelet Count 305 K/uL Mean Platelet Volume 9.6 fL Neutrophils (%) (Auto) 80.2 % Lymphocytes (%) (Auto) 9.7 % Monocytes (%) (Auto) 9.7 % Eosinophils (%) (Auto) 0.0 % Basophils (%) (Auto) 0.0 % Neutrophils # (Auto) 3.99 K/uL Lymphocytes # (Auto) 0.48 K/uL Monocytes # (Auto) 0.48 K/uL Eosinophils # (Auto) 0.00 K/uL Basophils # (Auto) 0.00 K/uL RDW Standard Deviation 48.1 fL RDW Coefficient of Variation 14.5 % Immature Granulocyte % (Auto) 0.4 % Immature Granulocyte # (Auto) 0.02 K/uL Nucleated RBC Absolute Count (auto) 0.04 K/uL Nucleated Red Blood Cells % 0.7 % Sodium Level 144 mmol/L Potassium Level 5.2 mmol/L Chloride Level 104 mmol/L Carbon Dioxide Level 38 mmol/L Anion Gap 2.0 mmol/L Blood Urea Nitrogen 31 mg/dl Creatinine 0.71 mg/dl Est Creatinine Clear Calc Drug Dose 99.0 ml/min Estimated GFR () 106.5 Estimated GFR (Non- 91.9 BUN/Creatinine Ratio 44.0 Random Glucose 210 mg/dl Calcium Level 7.9 mg/dl Phosphorus Level 4.4 mg/dl Magnesium Level 2.9 mg/dl Total Bilirubin 0.3 mg/dl Direct Bilirubin < 0.1 mg/dl Aspartate Amino Transf (AST/SGOT) 18 U/L Alanine Aminotransferase (ALT/SGPT) 36 U/L Alkaline Phosphatase 49 U/L Total Protein 6.5 gm/dl Albumin 2.5 gm/dl Lipase 85 U/L Test 02/29/16 11:15 02/29/16 13:16 02/29/16 17:18 Random Vancomycin Level 13.5 mcg/ml Bedside Glucose 177 mg/dl 124 mg/dl
[2016-02-29] MEDS ORDERED: FUROSEMIDE 40 MG/4 ML VIAL IV ONE (20:15)
[2016-02-29] MEDS: INSULIN GLARGINE SOLOSTAR 100 UNITS/ML 3 ML PEN SC SCH (20:27)
[2016-02-29] MEDS ORDERED: ACETAZOLAMIDE IV PUSH 500 MG in SYRINGE 0 ML IV ONE (20:30)
[2016-02-29] MEDS ORDERED: MINERAL OIL 473 ML BOTTLE PO ONE (20:30)
[2016-02-29] MEDS: LABETALOL HCL IV 5 MG/ML 20ML IV PRN (20:30)
[2016-02-29] MEDS ORDERED: NURSING VERBAL MED ORDER ONE (21:00)
[2016-02-29] MEDS: ACETAMINOPHEN SOLN 650MG/20.3 ML UDC NG PRN (21:36)
--- NOTE | 2016-02-29 22:19 | Progress Note ---
Medicine Progress Note Date & Time of Visit: Feb 29, 2016 at 2100. Subjective Intubated, sedated therefore could not obtain ROS Objective Last 8 Hrs Date Time Temp Pulse Resp B/P Pulse Ox O2 Delivery O2 Flow Rate FiO2 02/29/16 19:23 35 02/29/16 17:50 35 02/29/16 17:00 37.8 132 28 167/93 98 Mechanical Ventilator 30 02/29/16 16:00 30 02/29/16 16:00 143 32 162/101 97 Mechanical Ventilator 30 02/29/16 16:00 92 Mechanical Ventilator 30 02/29/16 14:25 35 Physical Exam: GEN: obese, intubated, sedated, on CPAP and ketamine for sedation HEENT: NC/AT CARDIO: tachy, S1/2 heard without m/g/r LUNGS: wheezing on L side only, diminished breath sounds throughout all lung pool ABD: soft, non-distended, no rebound or guarding (pt sedated) EXTREMITY: no LE swelling or edema, extremities are warm and well-perfused, both hands are cool to touch N/M: could not be assessed as patient is sedated SKIN: warm and dry Laboratory Results: Last 24 Hours Test 02/28/16 23:19 02/29/16 04:52 02/29/16 10:18 02/29/16 11:15 Bedside Glucose 225 mg/dl White Blood Count 4.97 K/uL Red Blood Count 3.12 M/uL Hemoglobin 8.7 g/dL Hematocrit 28.4 % Mean Corpuscular Volume 91.0 fL Mean Corpuscular Hemoglobin 27.9 pg Mean Corpuscular Hemoglobin Concent 30.6 g/dl Platelet Count 305 K/uL Mean Platelet Volume 9.6 fL Neutrophils (%) (Auto) 80.2 % Lymphocytes (%) (Auto) 9.7 % Monocytes (%) (Auto) 9.7 % Eosinophils (%) (Auto) 0.0 % Basophils (%) (Auto) 0.0 % Neutrophils # (Auto) 3.99 K/uL Lymphocytes # (Auto) 0.48 K/uL Monocytes # (Auto) 0.48 K/uL Eosinophils # (Auto) 0.00 K/uL Basophils # (Auto) 0.00 K/uL RDW Standard Deviation 48.1 fL RDW Coefficient of Variation 14.5 % Immature Granulocyte % (Auto) 0.4 % Immature Granulocyte # (Auto) 0.02 K/uL Nucleated RBC Absolute Count (auto) 0.04 K/uL Nucleated Red Blood Cells % 0.7 % Sodium Level 144 mmol/L Potassium Level 5.2 mmol/L Chloride Level 104 mmol/L Carbon Dioxide Level 38 mmol/L Anion Gap 2.0 mmol/L Blood Urea Nitrogen 31 mg/dl Creatinine 0.71 mg/dl Est Creatinine Clear Calc Drug Dose 99.0 ml/min Estimated GFR () 106.5 Estimated GFR (Non- 91.9 BUN/Creatinine Ratio 44.0 Random Glucose 210 mg/dl Calcium Level 7.9 mg/dl Phosphorus Level 4.4 mg/dl Magnesium Level 2.9 mg/dl Total Bilirubin 0.3 mg/dl Direct Bilirubin < 0.1 mg/dl Aspartate Amino Transf (AST/SGOT) 18 U/L Alanine Aminotransferase (ALT/SGPT) 36 U/L Alkaline Phosphatase 49 U/L Total Protein 6.5 gm/dl Albumin 2.5 gm/dl Lipase 85 U/L Random Vancomycin Level 13.5 mcg/ml Test 02/29/16 13:16 02/29/16 17:18 Bedside Glucose 177 mg/dl 124 mg/dl Date/Time Source Procedure Growth Status 02/29/16 10:32 Blood Blood Culture Pending Received 02/29/16 10:32 Blood Blood Culture Pending Received 02/29/16 14:45 Nasal MRSA DNA Surveillance Screen - Final Specimen Negative for MRSA by DNA Probe Complete Assessment & Plan 60 yo F with a h/o COPD, DM and HTN presents with increasing shortness of breath 2/2 acute COPD exacerbation likely 2/2 acute bronchitis. She was subsequently intubated and paralyzed on 02/23 1. Acute on chronic hypercapnic respiratory failure 2/2 COPD exacerbation. Intubated-Day 5, cont management per ICU team including IV steroids and brochodilators. Currently on CPAP and ketamine for sedation with lower peak pressures. Breath sounds are diminished. Off paralytics, wean trial in am. 2. UTI 2/2 Staph 3. Hyperkalemia-Cozaar stopped. 4. DMII-round goal, ISS. Tube feeds held last night for high residuals but restarted again today. Glycemic pharmacist assisting with insulin. Lantus ordered 5. GERD-cont PPI 6. HTN-cont Lopressor and PRN Labetalol. Cozaar stopped 02/28/16 2/2 hyperkalemia. 7. Depression-psych eval revealed no readily identifiable depression, panic attack or TALIA present. 8. Anemia-baseline 12 and currently around 8. No evidence of bleeding, likely multifactorial including frequent phlebotomy and hemodilution receiving multiple IV medications in fluids. Lasix was given yesterday and an increased dose today, also, for positive fluid balance. 9. Active smoker-not on nicotine replacement for last week. Consider tobacco withdrawal DVT proph-Lovenox GI prophy-Protonix Dispo-remain in ICU while intubated. DO Michaela Kelsey Hospitalist Consultants: Pulm, ICU Current Inpatient Medications: Current Inpatient Medications Medications (Trade) Dose Ordered Sig/Allison Route Start Time Stop Time Status Last Admin Dose Admin Ondansetron HCl (Zofran Inj) 4 mg Q6H PRN IV 02/22/16 02:15 03/23/16 02:14 Glucose (Glucose 40% Gel) 15-30 GRAMS 15 GRAMS... UD PRN PO 02/22/16 02:15 03/23/16 02:14 Glucose (Glucose Chew Tab) 4-8 Tablets 4 Tabl... UD PRN PO 02/22/16 02:15 03/23/16 02:14 Dextrose (Dextrose 50% 50ML Syringe) 25-50ML OF 50% DW IV FOR... UD PRN IV 02/22/16 02:15 03/23/16 02:14 Glucagon (Glucagon Inj) 1 mg UD PRN SQ 02/22/16 02:15 03/23/16 02:14 Miscellaneous Information (Consult Glycemic Management Pharmacy) 1 ea UD PRN N/A 02/22/16 02:45 03/23/16 02:44 Atorvastatin Calcium (Lipitor Tab) 10 mg QAM PO 02/22/16 09:00 03/23/16 08:59 02/29/16 07:50 10 MG Miscellaneous Information (Order Awaiting Action) 1 ea QS N/A 02/22/16 05:30 03/23/16 05:29 Budesonide/ Formoterol Fumarate (Symbicort 160/ 4.5 Inh) 2 puffs BID INH 02/22/16 21:00 03/23/16 20:59 02/29/16 07:50 2 PUFFS Enoxaparin Sodium 40 mg 40 mg QAM SQ 02/23/16 09:00 03/24/16 08:59 02/29/16 07:54 40 MG Midazolam HCl 250 ml @ 0 mls/hr Q0M PRN IV 02/24/16 17:30 03/25/16 17:29 02/29/16 06:22 10 MLS/HR Pantoprazole Sodium/Syringe (Protonix Inj/ Syringe) 10 ml @ 5 mls/min DAILY@ IV 02/24/16 21:00 02/29/16 23:59 02/29/16 20:22 5 MLS/MIN Chlorhexidine Gluconate (Peridex Oral Soln) 15 ml BID MT 02/24/16 21:00 03/25/16 20:59 02/29/16 20:24 15 ML Insulin Aspart SLIDING SCALE If C... Q6 SC 02/25/16 00:00 03/26/16 00:00 02/29/16 06:04 1 UNITS Fentanyl Citrate (Fentanyl Drip 1250MCG/250 Nss) 250 ml @ 0 mls/hr Q0M PRN IV 02/24/16 21:45 03/09/16 21:44 02/28/16 23:45 40 MLS/HR Ipratropium [place] (Atrovent Hfa Inhaler) 8 puffs Q4R INH 02/25/16 13:15 03/26/16 13:14 02/29/16 14:25 8 PUFFS Albuterol (Ventolin Hfa Inhaler) 8 puffs Q4R INH 02/25/16 13:15 03/26/16 13:14 02/29/16 14:25 8 PUFFS Albuterol 4 puffs 4 puffs Q2R PRN INH 02/25/16 10:45 03/26/16 10:44 Rocuronium [place]/Sodium Chloride (Zemuron Inj/Nss 100ml) 200 ml @ 0 mls/hr Q0M PRN IV 02/26/16 02:00 03/27/16 01:59 02/27/16 13:09 14 MLS/HR Ioversol (Optiray 320) 125 ml UD PRN IV 02/26/16 14:00 03/01/16 13:59 Enteral Nutritional Formula (Peptamen Intense VHP) 1,000 ml UD OG 02/26/16 15:30 03/27/16 15:29 02/29/16 18:10 1,000 ML Aspirin (Aspirin Chew) 81 mg QAM PO 02/27/16 09:00 03/28/16 08:59 02/29/16 07:50 81 MG Insulin Glargine 10 unit 10 unit HS SC 02/27/16 21:00 03/28/16 20:59 02/29/16 20:27 10 UNIT Methylprednisolone Sodium Succinate/ Syringe (Solu-Medrol IV/ Syringe) 0.96 ml @ 1.5 mls/min Q6H IV 02/27/16 20:00 03/28/16 19:59 02/29/16 20:23 1.5 MLS/MIN Artificial Tears (Artificial Tears) 2 drops Q4H OP 02/27/16 16:00 03/28/16 15:59 02/29/16 20:23 2 DROPS Metoprolol Tartrate (Lopressor Iv) 5 mg Q6 PRN IV 02/27/16 18:00 03/28/16 17:59 Propofol (Diprivan IV 100ML VIAL) 1 dose UD PRN IV 02/27/16 18:15 03/01/16 18:14 02/29/16 03:08 1 DOSE Pramipexole Dihydrochloride (miraPEX TAB) 0.25 mg BID PO 02/28/16 09:00 03/29/16 08:59 02/29/16 20:22 0.25 MG Docusate Sodium (coLACE SYRUP) 100 mg BID PO 02/28/16 09:00 03/29/16 08:59 02/29/16 20:21 100 MG Labetalol HCl 20 mg 20 mg Q1H PRN IV 02/28/16 10:00 03/29/16 09:59 02/29/16 20:30 20 MG Cefepime HCl/ Dextrose (Maxipime IV/D5 100ml) 112.5 ml @ 200 mls/hr Q12@0000,1200 IV 02/28/16 12:00 03/09/16 11:59 02/29/16 13:22 200 MLS/HR Vancomycin HCl 1 ea 1 ea UD PRN N/A 02/28/16 12:00 03/29/16 11:59 Vancomycin HCl 1550 mg/Sodium Chloride 531 ml @ 200 mls/hr Q12H IV 02/29/16 00:00 03/10/16 00:00 Future hold 02/29/16 14:00 200 MLS/HR Ketamine HCl 500 mg/Sodium Chloride 500 ml @ 0 mls/hr Q0M PRN IV 02/29/16 10:30 03/30/16 10:29 02/29/16 19:54 57.8 MLS/HR Dexmedetomidine HCl/Sodium Chloride (PreCEDEX INJ/ Nss 250ml) 250 ml @ 0 mls/hr Q0M PRN IV 02/29/16 12:30 03/04/16 12:29 Gabapentin (Neurontin) 100 mg TID NG 02/29/16 14:00 03/30/16 13:59 02/29/16 20:22 100 MG Hydralazine HCl (HydrALAZINE INJ) 10 mg Q6H PRN IV. 02/29/16 12:45 03/30/16 12:44 Lansoprazole 30 mg 30 mg BID OG 03/01/16 09:00 03/31/16 08:59 Acetazolamide Sodium/Syringe (Diamox IV Push/ Syringe) 5 ml @ 5 mls/min TODAY@0400 ONCE IV 03/01/16 04:00 03/01/16 04:01 Acetaminophen (Tylenol Soln) 650 mg Q4H PRN NG 02/29/16 21:15 03/30/16 21:14 02/29/16 21:36 650 MG
[2016-02-29] MEDS ORDERED: KETAMINE HCL INJ 500 MG in SODIUM CHLORIDE 0.9% 500ML 490 ML IV PRN (23:00)
[2016-03-01] VITALS (20 sets, daily range): BP systolic 100–175; BP diastolic 50–125; PULSE 86–111; TEMP 37.2–38.3; O2SAT 97–100
[2016-03-01] MEDS: INSULIN ASPART 100 UNITS/ML 3 ML PEN SC SCH ×3 (00:02→11:48)
[2016-03-01] MEDS: CEFEPIME IV 2,000 MG in DEXTROSE 5% 100ML 100 ML IV SCH (00:03)
[2016-03-01] MEDS: ARTIFICIAL TEARS OP SOLN OP SCH ×12 (00:03→21:08)
[2016-03-01] MEDS: METOPROLOL TARTRATE 1 MG/ML VIAL IV PRN ×2 (00:25→11:40)
[2016-03-01] MEDS: VANCOMYCIN INJ 1,550 MG in SODIUM CHLORIDE 0.9% 500ML 500 ML IV SCH ×2 (01:45→14:03)
[2016-03-01] MEDS: METHYLPREDNISOLONE IV 60 MG in SYRINGE 0 ML IV SCH ×3 (01:45→14:05)
[2016-03-01] MEDS: LABETALOL HCL IV 5 MG/ML 20ML IV PRN ×3 (02:04→11:47)
[2016-03-01] MEDS: ALBUTEROL HFA 8 GM INHALER INH SCH ×5 (03:58→23:29)
[2016-03-01] MEDS: IPRATROPIUM BROMIDE HFA INHALER INH SCH ×5 (03:58→23:29)
[2016-03-01] MEDS ORDERED: ACETAZOLAMIDE IV PUSH 500 MG in SYRINGE 0 ML IV ONE ×2 (04:00→11:00)
[2016-03-01 06:05] LABS: VEN BLD GAS O2 SATURATION 82.6 %; VEN BLOOD GAS BASE EXCESS 4.5 mmol/L
[2016-03-01] MEDS: KETAMINE HCL INJ 500 MG in SODIUM CHLORIDE 0.9% 500ML 490 ML IV PRN (07:09)
[2016-03-01] MEDS: BUDESONIDE/FORMOTEROL FUMARATE 160/4.5 60 PUFFS/INHALER INH SCH ×2 (07:42→19:16)
[2016-03-01 08:03] LABS: COMPLETE YES; HEMATOCRIT 30.8 % (37-47); IG% 0.6 %; LYMPH % 7.7 %; LYMPH ABS # 0.66 K/uL (1.2-3.4); MEAN CELL VOLUME 89.8 fL (80-100); MEAN CORPUSCULAR HEMOGLOBIN 27.4 pg (25-34); MEAN CORPUSCULAR HGB CONC 30.5 g/dl (32-36); MEAN PLATELET VOLUME 9.2 fL (7.4-10.4); MONO % 10.1 %; NEUT % 81.6 %; PLATELET COUNT 299 K/uL (130-400); RED BLOOD COUNT 3.43 M/uL (4.2-5.4); WHITE BLOOD COUNT 8.59 K/uL (4.8-10.8)
[2016-03-01] MEDS: CHLORHEXIDINE GLUCONATE 0.12% 480 ML MT SCH ×2 (08:05→21:07)
[2016-03-01] MEDS: ASPIRIN 81 MG CHEW PO SCH (08:06)
[2016-03-01] MEDS: GABAPENTIN 250 MG/5 ML 470 ML BTL NG SCH ×2 (08:06→14:04)
[2016-03-01] MEDS: ATORVASTATIN 10 MG TAB PO SCH (08:06)
[2016-03-01] MEDS: DOCUSATE SODIUM 100 MG/10 ML UDC PO SCH ×2 (08:06→21:08)
[2016-03-01] MEDS: LANSOPRAZOLE SOLUTAB 30 MG OG SCH ×2 (08:06→21:09)
[2016-03-01] MEDS: PRAMIPEXOLE DIHYDROCHLORIDE 0.5 MG TAB PO SCH ×2 (08:06→21:09)
[2016-03-01] MEDS: ENOXAPARIN 40 MG/0.4 ML SYR SQ SCH (08:07)
--- NOTE | 2016-03-01 08:08 | DIAGNOSTIC IMAGING REPORT ---
CHEST ONE VIEW PORTABLE CLINICAL HISTORY: Intubated COMPARISON STUDY: Chest radiograph February 29, 2016. FINDINGS: A right PICC is in place. The tip of the endotracheal tube is 2.9 cm above the romina. There is no pneumothorax. The tip of the nasogastric tube is below the lower aspect of this image but at least within the proximal stomach. Emphysema is noted. There is no pneumothorax. Mild bibasilar opacities persist. IMPRESSION: 1. Persistent mild bibasilar opacities, right greater than left. 2. No pneumothorax. 3. Satisfactory positioning of lines and tubes. Electronically signed by: Agustin Hall M.D. 03/01/2016 8:06 AM
[2016-03-01 08:42] LABS: BUN/CREATININE RATIO 49.9 (10-20); CALCIUM 7.7 mg/dl (8.5-10.1); CREATININE 0.76 mg/dl (0.60-1.20); POTASSIUM 3.8 mmol/L (3.5-5.1)
[2016-03-01] MEDS ORDERED: CHLOROTHIAZIDE INJ 500 MG in DEXTROSE 5% 50ML 50 ML IV ONE (10:30)
[2016-03-01] MEDS ORDERED: METHYLNALTREXONE BROMIDE INJ 12 MG/0.6 ML SYR SQ ONE (10:30)
[2016-03-01] MEDS ORDERED: VANCOMYCIN TROUGH SCH ×2 (11:30→13:30)
[2016-03-01] MEDS ORDERED: IMPACT LIQ 1000 ML BAG OG SCH (11:30)
--- NOTE | 2016-03-01 11:58 | Critical Care Progress Note ---
Critical Care Progress Note Date of Service Mar 01, 2016. Attending Dr. Giordano Subjective Patient sedated; history unobtainable patient does gaze over to command, cannot sustatin > 10 seconds Patient did grasp hand to command to "squeeze my finger" No events overnight, per nursing Objective Physical Exam: General: Comfortable, no apparent distress Eyes: PERRL, normal EOM bilaterally ENT: Mucous membranes moist, pharynx clear, TM clear Neck: No JVD, no lymphadenopathy, no thyromegaly Lungs: Clear to auscultation bilaterally, no wheezing, no crackles Heart: S1 and S2 with no added sounds or murmurs Abdomen: Soft, non-tender, non-disteneded, nomal bowel sounds in all 4 quadrants Extremities: No pitting edema, no asymmetric swelling, no calf pain or tenderness Neuro: RASS -2; grabs fingers to command, gazes over to voice for < 10 seconds Assessment & Plan 60 year old lady who presents with the following problems - Acute respiratory distress secondary to acute hypercapnic respiratory failure - History of COPD - History of Asthma - Type 2 Diabetes Plan for her care is as follows: Neurological - RASS score -3 - Patient on Precedex drip; will stop this morning - Patient on Ketamine drip; continue to wean - Will re-evaluate patient's mental cognitive status in PM; if improved goal is to wean off ventilator today Reviewed patient in later afternoon; patient still sedated on Ketamine drip; will re-assess tomorrow for extubation Cardiac - EMMANUEL stable at 140-170/90-100 Labetalol and Hydralazine PRN for sBP > 190 - HR 90-100 - Not requiring vasopressor support - Cr stable at 0.7; continue diuresis until small elevation in Cr noted Na has trended upwards; today is 146; likely secondary to Lasix Will change management specialist diuretic to Chlorothiazide Respiratory Acute Hypercapnic Respiratory Failure secondary secondary to COPD/Bronchitis exacerbation - Breath sounds clear bilaterally; no evidence of wheezing or crackles - Continue Ipratropium and Albuterol - Reduce Solu-medrol to 40 mg q 6 hours - Will wean off sedation today and once more awake and alert, attempt intubation Asthma and COPD - As above Gastrointestinal Constipation - No BM since 02/23 - Patient noted to have gotten Fentanyl, with possible risk for opiate-induced constipation - Administer single dose of Methylnaltrexone Query GI bleed - Elevated BUN with normal Cr - No BM since 02/23; would suspect GI bleed to have cathartic effect on patient - H&H stable; Continue to follow daily H&H - Relistor to promote BM and check stools with Hemoccult GI prophylaxis: Prevacid via OG tube OG Tube Feeding: Peptamen Intense Genitourinary/Electrolytes - Cr. down to 0.7 from 0.9 - Good U/O yesterday; 3700 ml (1.4 ml/kg/hr); today 1500 ml so far (0.5 ml/kg/hr ) - Cumulative I/O + 2400 ml Continue diuresis but hold off on Lasix due to hypernatremia Will give single dose of Chlorothiazide Hyperkalemia - K improved to 3.8 today avoid Lasix due to concurrent risk of hypokalemia Hypernatremia - Na 146 today - Stop Lasix; change to Chlorothiazide Hyperchloremia - Chloride 110 today; likely reflect contraction alkalosis from diuretic use - Will add in single dose of Acetazolamide Hypocalcemia - 7.7 today; check ionized calcium Endocrine Type 2 Diabetes Mellitus - Sliding scale with Lantus - BSGs 170s-180s Heme/ID - WBC stable at 8; Tmax over 24 hours 37.9 - On Vancomycin and Cefepime - Urine growing Staph Saprophyticus; no evidence of GNBs - Respiratory status improving; not suggestive of evolving pulmonary process - Can discontinue Cefepime as gram negative cover, not required at this time - Continue Vancomycin (Day 3) Musculoskeletal - Patient received combination of paralytic agent with solu-medrol --> risk for myopathy - CPK checked 365 - Will taper down steroid - PT to see patient and provide ROM - Repeat CPK with AM labs to trend DVT Prophylaxis - Lovenox 40 mg qAM Code Status - Level I Code Disposition - ICU; sedation drips, intubated - OT/PT consulted: Passive ROM motions done by nursing today; PT will continue to follow Resident Physician Supervision Note: Dr. Dr. Arash Wise was resident physician during care of patient. I separately evaluated patient and did history and exam. I discussed the case with the resident and generally agree with the findings and plan. Patient's mental status slowly improving, continue to wean sedatives. Concern for ICU myopathy given high-dose steroids and paralytics, patient appears globally weak. CPK checked no evidence of active rhabdomyolysis I have personally spent 60 minutes of critical care time in the direct management of this patient. This is a life/limb threatening event. This includes time spent evaluating patient, direct bedside care, chart review, placing orders, interpretation of diagnostic studies, discussion with consultants, patient, and family members, as well as other required patient management activities. This time is exclusive of all separately billable procedures, and teaching time and separate from and in addition to any other critical care service time. I had a prolonged discussion with the patient's daughter regarding her current status, projected course, possible need for tracheostomy, possible autoimmune history, and need for possible repeat bronchoscopy with tissue biopsy for further evaluation of any possible autoimmune etiologies. Documented By: Tyrone Giordano DO Data Medications: Current Inpatient Medications Medications (Trade) Dose Ordered Sig/Allison Route Start Time Stop Time Status Last Admin Dose Admin Ondansetron HCl (Zofran Inj) 4 mg Q6H PRN IV 02/22/16 02:15 03/23/16 02:14 Glucose (Glucose 40% Gel) 15-30 GRAMS 15 GRAMS... UD PRN PO 02/22/16 02:15 03/23/16 02:14 Glucose (Glucose Chew Tab) 4-8 Tablets 4 Tabl... UD PRN PO 02/22/16 02:15 03/23/16 02:14 Dextrose (Dextrose 50% 50ML Syringe) 25-50ML OF 50% DW IV FOR... UD PRN IV 02/22/16 02:15 03/23/16 02:14 Glucagon (Glucagon Inj) 1 mg UD PRN SQ 02/22/16 02:15 03/23/16 02:14 Miscellaneous Information (Consult Glycemic Management Pharmacy) 1 ea UD PRN N/A 02/22/16 02:45 03/23/16 02:44 Atorvastatin Calcium (Lipitor Tab) 10 mg QAM PO 02/22/16 09:00 03/23/16 08:59 03/01/16 08:06 10 MG Miscellaneous Information (Order Awaiting Action) 1 ea QS N/A 02/22/16 05:30 03/23/16 05:29 Budesonide/ Formoterol Fumarate (Symbicort 160/ 4.5 Inh) 2 puffs BID INH 02/22/16 21:00 03/23/16 20:59 02/29/16 07:50 2 PUFFS Enoxaparin Sodium (Lovenox Inj) 40 mg QAM SQ 02/23/16 09:00 03/24/16 08:59 03/01/16 08:07 40 MG Chlorhexidine Gluconate (Peridex Oral Soln) 15 ml BID MT 02/24/16 21:00 03/25/16 20:59 03/01/16 08:05 15 ML Insulin Aspart (novoLOG ASPART) SLIDING SCALE If C... Q6 SC 02/25/16 00:00 03/26/16 00:00 03/01/16 05:47 4 UNITS Ipratropium [place] (Atrovent Hfa Inhaler) 8 puffs Q4R INH 02/25/16 13:15 03/26/16 13:14 03/01/16 07:28 8 PUFFS Albuterol (Ventolin Hfa Inhaler) 8 puffs Q4R INH 02/25/16 13:15 03/26/16 13:14 03/01/16 07:28 8 PUFFS Albuterol (Ventolin Hfa Inhaler) 4 puffs Q2R PRN INH 02/25/16 10:45 03/26/16 10:44 Ioversol (Optiray 320) 125 ml UD PRN IV 02/26/16 14:00 03/01/16 13:59 Enteral Nutritional Formula (Peptamen Intense VHP) 1,000 ml UD OG 02/26/16 15:30 03/27/16 15:29 02/29/16 18:10 1,000 ML Aspirin (Aspirin Chew) 81 mg QAM PO 02/27/16 09:00 03/28/16 08:59 03/01/16 08:06 81 MG Insulin Glargine 10 unit 10 unit HS SC 02/27/16 21:00 03/28/16 20:59 02/29/16 20:27 10 UNIT Methylprednisolone Sodium Succinate/ Syringe (Solu-Medrol IV/ Syringe) 0.96 ml @ 1.5 mls/min Q6H IV 02/27/16 20:00 03/28/16 19:59 03/01/16 08:04 1.5 MLS/MIN Artificial Tears (Artificial Tears) 2 drops Q4H OP 02/27/16 16:00 03/28/16 15:59 03/01/16 10:55 2 DROPS Metoprolol Tartrate (Lopressor Iv) 5 mg Q6 PRN IV 02/27/16 18:00 03/28/16 17:59 03/01/16 00:25 5 MG Pramipexole Dihydrochloride (miraPEX TAB) 0.25 mg BID PO 02/28/16 09:00 03/29/16 08:59 03/01/16 08:06 0.25 MG Docusate Sodium (coLACE SYRUP) 100 mg BID PO 02/28/16 09:00 03/29/16 08:59 03/01/16 08:06 100 MG Labetalol HCl (Normodyne IV) 20 mg Q1H PRN IV 02/28/16 10:00 03/29/16 09:59 03/01/16 06:09 20 MG Vancomycin HCl 1 ea 1 ea UD PRN N/A 02/28/16 12:00 03/29/16 11:59 Vancomycin HCl 1550 mg/Sodium Chloride 531 ml @ 200 mls/hr Q12H IV 02/29/16 00:00 03/10/16 00:00 Future hold 03/01/16 01:45 200 MLS/HR Ketamine HCl/ Sodium Chloride (Ketalar Steri-Vial Inj/ Nss 500ml) 500 ml @ 0 mls/hr Q0M PRN IV 02/29/16 10:30 03/30/16 10:29 03/01/16 07:09 53.9 MLS/HR Gabapentin (Neurontin) 100 mg TID NG 02/29/16 14:00 03/30/16 13:59 03/01/16 08:06 100 MG Hydralazine HCl (HydrALAZINE INJ) 10 mg Q6H PRN IV. 02/29/16 12:45 03/30/16 12:44 Lansoprazole (Prevacid Solutab) 30 mg BID OG 03/01/16 09:00 03/31/16 08:59 03/01/16 08:06 30 MG Acetaminophen 650 mg 650 mg Q4H PRN NG 02/29/16 21:15 03/30/16 21:14 02/29/16 21:36 650 MG Dexmedetomidine HCl/Sodium Chloride (PreCEDEX INJ/ Nss 50ml) 50 ml @ 0 mls/hr Q0M PRN IV 03/01/16 11:15 03/05/16 11:14 Enteral Nutritional Formula (Impact 1.0 [place]) 1,800 ml UD OG 03/01/16 11:30 03/31/16 11:29 UNV I & O: 24-Hour Column 03/01/16 08:00 Intake Total 3149 ml Output Total 4250 ml Balance -1101 ml Vital Signs: Date Time Temp Pulse Resp B/P Pulse Ox O2 Delivery O2 Flow Rate FiO2 03/01/16 11:31 35 03/01/16 11:00 109 17 167/120 100 Mechanical Ventilator 35 03/01/16 09:00 37.7 95 22 165/116 100 Mechanical Ventilator 30 03/01/16 08:00 100 Mechanical Ventilator 30 03/01/16 08:00 30 03/01/16 08:00 37.7 101 16 165/116 100 Mechanical Ventilator 30 03/01/16 07:28 35 03/01/16 06:14 86 12 144/90 100 Mechanical Ventilator 35 03/01/16 05:58 99 14 175/111 100 Mechanical Ventilator 35 03/01/16 05:40 35 03/01/16 05:09 102 16 175/95 100 Mechanical Ventilator 35 03/01/16 04:00 35 03/01/16 04:00 CPAP 35 Mechanical Ventilator 03/01/16 03:58 37.9 97 13 147/94 97 Mechanical Ventilator 35 03/01/16 03:56 35 03/01/16 02:58 94 14 161/89 98 Mechanical Ventilator 35 03/01/16 02:22 35 03/01/16 02:16 92 17 150/88 98 03/01/16 02:16 92 17 150/88 98 Mechanical Ventilator 35 03/01/16 02:16 92 17 150/88 98 03/01/16 01:58 108 16 153/109 98 Mechanical Ventilator 35 03/01/16 00:58 105 16 153/95 98 Mechanical Ventilator 35 03/01/16 00:25 119 135/100 03/01/16 00:00 35 03/01/16 00:00 CPAP 35 Mechanical Ventilator 02/29/16 23:58 36.7 116 18 135/100 97 Mechanical Ventilator 35 02/29/16 23:24 35 02/29/16 22:20 35 02/29/16 21:59 116 19 150/100 98 Mechanical Ventilator 35 02/29/16 20:00 35 02/29/16 20:00 CPAP 35 Mechanical Ventilator 02/29/16 19:59 37.2 137 16 194/111 99 Mechanical Ventilator 35 02/29/16 19:23 35 02/29/16 17:50 35 02/29/16 17:00 37.8 132 28 167/93 98 Mechanical Ventilator 30 02/29/16 16:00 30 02/29/16 16:00 143 32 162/101 97 Mechanical Ventilator 30 02/29/16 16:00 92 Mechanical Ventilator 30 02/29/16 14:25 35 02/29/16 14:00 37.8 124 16 153/101 95 Mechanical Ventilator 30 02/29/16 12:00 95 Mechanical Ventilator 30 02/29/16 12:00 30 02/29/16 12:00 90 16 177/99 95 CPAP 30 Laboratory Results: Last 24 Hours Test 02/29/16 13:16 02/29/16 17:18 02/29/16 23:59 03/01/16 05:44 Bedside Glucose 177 mg/dl 124 mg/dl 176 mg/dl 188 mg/dl Test 03/01/16 05:52 03/01/16 07:46 Venous Blood pH 7.36 Venous Blood Partial Pressure CO2 56 mmHg Venous Blood Partial Pressure O2 52 mmHg Venous Blood HCO3 31 mmol/L Venous Blood Oxygen Saturation 82.6 % Venous Blood Base Excess 4.5 mmol/L White Blood Count 8.59 K/uL Red Blood Count 3.43 M/uL Hemoglobin 9.4 g/dL Hematocrit 30.8 % Mean Corpuscular Volume 89.8 fL Mean Corpuscular Hemoglobin 27.4 pg Mean Corpuscular Hemoglobin Concent 30.5 g/dl Platelet Count 299 K/uL Mean Platelet Volume 9.2 fL Neutrophils (%) (Auto) 81.6 % Lymphocytes (%) (Auto) 7.7 % Monocytes (%) (Auto) 10.1 % Eosinophils (%) (Auto) 0.0 % Basophils (%) (Auto) 0.0 % Neutrophils # (Auto) 7.01 K/uL Lymphocytes # (Auto) 0.66 K/uL Monocytes # (Auto) 0.87 K/uL Eosinophils # (Auto) 0.00 K/uL Basophils # (Auto) 0.00 K/uL RDW Standard Deviation 48.0 fL RDW Coefficient of Variation 14.6 % Immature Granulocyte % (Auto) 0.6 % Immature Granulocyte # (Auto) 0.05 K/uL Nucleated RBC Absolute Count (auto) 0.05 K/uL Nucleated Red Blood Cells % 0.5 % Sodium Level 146 mmol/L Potassium Level 3.8 mmol/L Chloride Level 110 mmol/L Carbon Dioxide Level 27 mmol/L Anion Gap 9.0 mmol/L Blood Urea Nitrogen 38 mg/dl Creatinine 0.76 mg/dl Est Creatinine Clear Calc Drug Dose 91.5 ml/min Estimated GFR () 98.1 Estimated GFR (Non- 84.7 BUN/Creatinine Ratio 49.9 Random Glucose 174 mg/dl Calcium Level 7.7 mg/dl
--- NOTE | 2016-03-01 14:17 | Pharmacy Progress Note ---
Pharmacy Antibiotic Prog Note Date of Service: Mar 01, 2016. Subjective: The patient is currently receiving VANCOMYCIN 1550 mg IV every 12 hours. The patient is currently on day # 3 of empiric abx therapy for fever, possible aspiration, possible UTI Objective: Height (Feet): 5 Height (Inches): 2.00 Weight (Kilograms): 111.300 Levels: Item Value Date Time Vancomycin Level Trough 12.5 mcg/ml 03/01/16 1320 Lab Results (24hrs): Laboratory Tests Test 03/01/16 07:46 BUN/Creatinine Ratio 49.9 Blood Urea Nitrogen 38 mg/dl Creatinine 0.76 mg/dl White Blood Count 8.59 K/uL Red Blood Count 3.43 M/uL Hemoglobin 9.4 g/dL Hematocrit 30.8 % Mean Corpuscular Volume 89.8 fL Mean Corpuscular Hemoglobin 27.4 pg Mean Corpuscular Hemoglobin Concent 30.5 g/dl Platelet Count 299 K/uL Mean Platelet Volume 9.2 fL Neutrophils (%) (Auto) 81.6 % Lymphocytes (%) (Auto) 7.7 % Monocytes (%) (Auto) 10.1 % Eosinophils (%) (Auto) 0.0 % Basophils (%) (Auto) 0.0 % Neutrophils # (Auto) 7.01 K/uL Lymphocytes # (Auto) 0.66 K/uL Monocytes # (Auto) 0.87 K/uL Eosinophils # (Auto) 0.00 K/uL Basophils # (Auto) 0.00 K/uL Micro Results: negative MRSA nasal swab SPEC #: [id number] KATI: 02/28/16-UNK STATUS: COMP REQ #: [id number] RECD: 02/28/16-[address] [facility] [address]: Raisa Flores MD SOURCE: URINE CATH ENTR: 02/28/16-[address] [facility] [address]: Jack Younger D.O. Pulmonary SPDESC: Radha Mann, Martina Jeong M.D. Panlilio, Robin A., MD Sumner, Sabrina M. , DO ORDERED: CULTURE UR CATH Procedure Result Verified Site URINE CULTURE Final 03/01/16-817 Organism 1 COAG NEG STAPH NOT SAPROPHYTIC COLONY COUNT >100,000 CFU/ml SENS SENSITIVITY TO FOLLOW +MIX PLUS LOW COUNTS OTHER MIXED [place]HEL[place] 1. COAG NEG STAPH NOT SAPROPHYTIC Target Route Dose RX AB Cost M.I.C. IQ ------ ----- ------ -- ------ -------- - ------ TRIMET/SULFA S <=0.5/ 9.5 * OXACILLIN R >2 VANCOMYCIN S 1 DAPTOMYCIN S <=0.5 NITROFURANTOIN S <=32 S = SENSITIVE I = INTERMEDIATE R = RESISTANT Assessment & Plan: * Patient remains on mechanical ventilator * Tmax in last 24 hours 37.9 C, however patient has received intermittent APAP * Urine cx growing CoN Staph - oxacillin resistant * Renal fxn appears stable based on SCr, BUN and U.O.; patient remains hypertensive and tachycardic at times VANCOMYCIN: * Trough was measured today prior to the 4th maintenance dose * Prior doses hung at appropriate times and trough drawn at appropriate time as well * Trough level 12.5, likely OK for treatment of UTI, however given uncertain source of infxn will increase dose slightly to obtain trough ~15 * New dose = 1900mg (~17mg/kg) IV Q 12 hours, will begin at MN tonight rather than continuing a Q 12 hr regimen at 0200 and 1400 (allow for less interruption of sleep) * Will recheck trough with 4th dose of new regimen Pharmacy will continue to follow and will adjust dose/frequency as necessary. Thank you
[2016-03-01] MEDS ORDERED: KETAMINE HCL INJ 500 MG in SODIUM CHLORIDE 0.9% 500ML 490 ML IV PRN (14:30)
--- NOTE | 2016-03-01 14:44 | Pharmacy Progress Note ---
Glycemic Control: Progress Nt Date of Service Mar 01, 2016. Scope Glycemic Pharmacist consulted by Dr Murillo on 02/22/16 for glycemic control and to write orders per [facility] inpatient glycemic control protocol. Objective Accuchecks BSG (last 24hrs): Test 02/29/16 17:18 02/29/16 23:59 03/01/16 05:44 03/01/16 07:46 Bedside Glucose 124 mg/dl (70-90) 176 mg/dl (70-90) 188 mg/dl (70-90) Random Glucose 174 mg/dl (70-99) Test 03/01/16 11:46 Bedside Glucose 178 mg/dl (70-90) Laboratory Data (last 24hrs) Test 03/01/16 07:46 Anion Gap 9.0 mmol/L BUN/Creatinine Ratio 49.9 Blood Urea Nitrogen 38 mg/dl Creatinine 0.76 mg/dl Potassium Level 3.8 mmol/L Sodium Level 146 mmol/L White Blood Count 8.59 K/uL Red Blood Count 3.43 M/uL Hemoglobin 9.4 g/dL Hematocrit 30.8 % Mean Corpuscular Volume 89.8 fL Mean Corpuscular Hemoglobin 27.4 pg Mean Corpuscular Hemoglobin Concent 30.5 g/dl Platelet Count 299 K/uL Mean Platelet Volume 9.2 fL Neutrophils (%) (Auto) 81.6 % Lymphocytes (%) (Auto) 7.7 % Monocytes (%) (Auto) 10.1 % Eosinophils (%) (Auto) 0.0 % Basophils (%) (Auto) 0.0 % Neutrophils # (Auto) 7.01 K/uL Lymphocytes # (Auto) 0.66 K/uL Monocytes # (Auto) 0.87 K/uL Eosinophils # (Auto) 0.00 K/uL Basophils # (Auto) 0.00 K/uL HbA1c: Test 02/23/16 05:32 Hemoglobin A1c 6.7 % (4.5-5.6) H Recent Pertinent Medications Outpatient Anti-diabetic Regimen: * Glimepiride 0.5mg PO Q AM * Metformin 1000mg PO BID * A1c = 6.9 % 04/02/15 The patient is currently receiving: * Basal insulin: Lantus 10 units SQ Q HS; give 1/2 dose if BSG less than 120 * Correctional Insulin: Novolog Correction per scale ACHS Goal Range: Low 140 mg/dL - High 180 mg/dL Correction Factor: 20 mg/dL/unit * Prandial insulin: Novolog SQ Q 6 hrs to cover carbs in Peptamen TF' s (using CR of ~ 1:7) * Oral Agents: None currently Risk Factors for Insulin Resistance: * Steroids: Solu-Medrol 60mg IV Q 6 hours --> being reduced to 40mg IV Q 6 hours * Infection: receiving Vancomycin for fever; possible UTI, aspiration? * Diet: Peptamen feeding had been running at 60cc/hr (~27gm carbs every 6 hours ) ---> now being changed to Impact feeds @30cc/hr and advance to goal to 75cc/hr * Mechanical Ventilation: Yes, but undergoing weaning Assessment & Plan ASSESSMENT: 02/22/16 * Type 2 diabetic admitted w/ COPD exacerbation failing treatment w/ outpt abx and prednisone. * She is treated w/ 2 oral hypoglycemics - that are currently on hold; and should remain on hold as she is now receiving high dose IV corticosteroids. Will use SQ basal/bolus regimen to achieve glycemic targets. * She has been admitted in the past and received SQ Novolog (CF + CR) alone to control hyperglycemia while on IV steroids; she was not given basal insulin or her oral hypoglycemics. Her current fasting BSG is 202; so I am inclined to give a single small dose of Lantus this AM and reevaluate basal needs tomorrow AM. Perhaps she is more stressed this admission and may require some basal insulin. * The current Novolog CF and CR are reasonable, however the CR dose could be increased a little. * Most recent A1c is from 03/2015; will check w/ AM labs tomorrow to determine appropriateness of outpt regimen 02/29/16 * BSGs have ranged 177-232 over the last 24 hours * She has received 28 units of SQ insulin over the last 24 hrs * Tube feeds have been on hold due to increased residuals, lack of BM, decreased BS, and concern for malposition of feeding tube. A repeat KUB to be done today to confirm position before restarting feeds. Also to receive metoclopramide IV x 1 today to stim GI motility * Will change Novolog order to allow for greater flexibility with carb coverage of tube feeds. Will use a CR of 1:7 * Will need to monitor for falling BSGs as tube feeds are held with continued Lantus dosing. Pt is on ATC steroids and on mech vent, so likely needs some amount of basal insulin. There is a "half-dose" parameter should BSG dip too low. 03/01/16 * Glycemic control has improved over the last 24 hours, BSGs 124-188 * Tube feeds had been on hold for a period of time secondary to concern for aspiration of feeds and misplaced feeding tube. Correct placement of feeding tube has been confirmed and feedings have been resumed. * Feeds have been changed to Impact which contains more carbs and may lead to rising BSGs. I would still like to continue with the same CR however to cover the new feeds. * Steroid dose is being titrated down, however is still relatively high, would not expect much improved insulin sensitivity but will monitor PLAN FOR INPATIENT GLYCEMIC CONTROL: * Continue Lantus 10 units Q HS; give 1/2 dose if BSG less than 120 * Continuing correction factor of 20 mg/dl/unit * Continuing carb ratio of 1 unit per 7 grams CHO consumed however tube feeding doses need changed to: * give 3 units for Impact @30cc/hr * give 6 units for Impact @50cc/hr * give 8 units for Impact @75cc/hr * Continue goal range of Low 140 mg/dL - High 180 mg/dL * Reevaluate insulin doses with each step down in steroid dose * Please note that the plan above was derived based on current level of insulin resistance and hospital stress. These recommendations are appropriate for inpatient admission only. Plan of care upon discharge will need to be reassessed to avoid potential outpatient hypo/hyperglycemia. Thank you.
--- NOTE | 2016-03-01 18:38 | Progress Note ---
Internal Med Progress Note Date of Service: Mar 01, 2016. Provider Documentation: SUBJECTIVE: s/p intubated on cpap trial opens eyes on calling OBJECTIVE: Vital Signs-as noted below Exam: General-s/p intubated. opens eyes Neck-no neck masses Lungs-cta b/l , no wheezing or crackles Heart-s1 and s2 heard regular, no murmurs Abdomen-soft bowel sounds present no distension Extremities-no edema present no erythema Neuro-s/p intubated Lab data as noted below. ASSESSMENT & PLAN: 60 year old female with history of COPD, Asthma DM, HTN other problems noted below presenting with increasing shortness of breath. Copd/Asthma exacerbation initially required bipap and later intubated #6 currently on iv solumedrol, and inhalers plan for vent weaning as per critical care DM holding glimepiride and metformin on iss will closely monitor while on steroids Depression/Anxiety continue home meds appreciate psychiatry inputs GERD Zantac added ppi Restless leg syndrome on Requip HTN home losartan.on hold on iv lopressor and iv hydralazine prn will monitor DVT PROPHYLAXIS scds. Lovenox DISPOSITION close monitor in icu for now Vital Signs: Date Time Temp Pulse Resp B/P Pulse Ox O2 Delivery O2 Flow Rate FiO2 03/01/16 18:20 100 03/01/16 17:00 30 03/01/16 14:30 30 03/01/16 14:00 106 20 157/100 98 Mechanical Ventilator 30 03/01/16 13:00 37.2 98 20 158/125 98 Mechanical Ventilator 35 03/01/16 12:00 35 03/01/16 12:00 99 Mechanical Ventilator 35 03/01/16 11:40 109 167/120 03/01/16 11:31 35 03/01/16 11:00 109 17 167/120 100 Mechanical Ventilator 35 03/01/16 09:00 37.7 95 22 165/116 100 Mechanical Ventilator 30 03/01/16 08:00 100 Mechanical Ventilator 30 03/01/16 08:00 30 03/01/16 08:00 37.7 101 16 165/116 100 Mechanical Ventilator 30 03/01/16 07:28 35 03/01/16 06:14 86 12 144/90 100 Mechanical Ventilator 35 03/01/16 05:58 99 14 175/111 100 Mechanical Ventilator 35 03/01/16 05:40 35 03/01/16 05:09 102 16 175/95 100 Mechanical Ventilator 35 03/01/16 04:00 35 03/01/16 04:00 CPAP 35 Mechanical Ventilator 03/01/16 03:58 37.9 97 13 147/94 97 Mechanical Ventilator 35 03/01/16 03:56 35 03/01/16 02:58 94 14 161/89 98 Mechanical Ventilator 35 03/01/16 02:22 35 03/01/16 02:16 92 17 150/88 98 03/01/16 02:16 92 17 150/88 98 Mechanical Ventilator 35 03/01/16 02:16 92 17 150/88 98 03/01/16 01:58 108 16 153/109 98 Mechanical Ventilator 35 03/01/16 00:58 105 16 153/95 98 Mechanical Ventilator 35 03/01/16 00:25 119 135/100 03/01/16 00:00 35 03/01/16 00:00 CPAP 35 Mechanical Ventilator 02/29/16 23:58 36.7 116 18 135/100 97 Mechanical Ventilator 35 02/29/16 23:24 35 02/29/16 22:20 35 02/29/16 21:59 116 19 150/100 98 Mechanical Ventilator 35 02/29/16 20:00 35 02/29/16 20:00 CPAP 35 Mechanical Ventilator 02/29/16 19:59 37.2 137 16 194/111 99 Mechanical Ventilator 35 02/29/16 19:23 35 Lab Results: Results Past 24 Hours Test 02/29/16 23:59 03/01/16 05:44 03/01/16 05:52 03/01/16 07:46 Range/Units Bedside Glucose 176 188 70-90 mg/dl Venous Blood pH 7.36 7.36-7.41 Venous Blood Partial Pressure CO2 56 38.0-50.0 mmHg Venous Blood Partial Pressure O2 52 mmHg Venous Blood HCO3 31 mmol/L Venous Blood Oxygen Saturation 82.6 % Venous Blood Base Excess 4.5 mmol/L White Blood Count 8.59 4.8-10.8 K/uL Red Blood Count 3.43 4.2-5.4 M/uL Hemoglobin 9.4 12.0-16.0 g/dL Hematocrit 30.8 37-47 % Mean Corpuscular Volume 89.8 80-100 fL Mean Corpuscular Hemoglobin 27.4 25-34 pg Mean Corpuscular Hemoglobin Concent 30.5 32-36 g/dl Platelet Count 299 130-400 K/uL Mean Platelet Volume 9.2 7.4-10.4 fL Neutrophils (%) (Auto) 81.6 % Lymphocytes (%) (Auto) 7.7 % Monocytes (%) (Auto) 10.1 % Eosinophils (%) (Auto) 0.0 % Basophils (%) (Auto) 0.0 % Neutrophils # (Auto) 7.01 1.4-6.5 K/uL Lymphocytes # (Auto) 0.66 1.2-3.4 K/uL Monocytes # (Auto) 0.87 0.11-0.59 K/uL Eosinophils # (Auto) 0.00 0-0.5 K/uL Basophils # (Auto) 0.00 0-0.2 K/uL RDW Standard Deviation 48.0 36.4-46.3 fL RDW Coefficient of Variation 14.6 11.5-14.5 % Immature Granulocyte % (Auto) 0.6 % Immature Granulocyte # (Auto) 0.05 0.00-0.02 K/uL Nucleated RBC Absolute Count (auto) 0.05 0-0 K/uL Nucleated Red Blood Cells % 0.5 % Sodium Level 146 136-145 mmol/L Potassium Level 3.8 3.5-5.1 mmol/L Chloride Level 110 98-107 mmol/L Carbon Dioxide Level 27 21-32 mmol/L Anion Gap 9.0 3-11 mmol/L Blood Urea Nitrogen 38 7-18 mg/dl Creatinine 0.76 0.60-1.20 mg/dl Est Creatinine Clear Calc Drug Dose 91.5 ml/min Estimated GFR () 98.1 Estimated GFR (Non- 84.7 BUN/Creatinine Ratio 49.9 10-20 Random Glucose 174 70-99 mg/dl Calcium Level 7.7 8.5-10.1 mg/dl Test 03/01/16 11:46 03/01/16 13:20 03/01/16 14:45 Range/Units Bedside Glucose 178 70-90 mg/dl Total Creatine Kinase 365 26-192 U/L Vancomycin Level Trough 12.5 SEE COMMENT mcg/ml Ionized Calcium 0.98 1.12-1.32 mmol/l
--- NOTE | 2016-03-01 21:01 | DIAGNOSTIC IMAGING REPORT ---
CHEST ONE VIEW PORTABLE HISTORY: Short of breath. aspiration COMPARISON: Chest 03/01/2016. FINDINGS: Endotracheal tube terminates approximately 3.6 cm from the romina. Nasogastric tube terminates below the diaphragm. The tip is not included on this study. No pneumothorax. No pleural effusions. No evidence for pulmonary edema. The right PICC terminates in the SVC. Emphysema. Bibasilar linear densities are again noted.. IMPRESSION: 1. Satisfactory support line placement. 2. No change in the bibasilar linear densities. Electronically signed by: Francesco Rowe M.D. 03/01/2016 8:59 PM
[2016-03-01] MEDS: METHYLPREDNISOLONE IV 40 MG in SYRINGE 0 ML IV SCH (21:06)
[2016-03-01] MEDS: INSULIN GLARGINE SOLOSTAR 100 UNITS/ML 3 ML PEN SC SCH (21:45)
[2016-03-01] MEDS: DexMEDEtomidine HCL INJ 200 MCG in SODIUM CHLORIDE 0.9% 50ML 48 ML IV PRN (23:20)
[2016-03-02] VITALS (25 sets, daily range): BP systolic 94–151; BP diastolic 60–87; PULSE 88–113; TEMP 37–37.7; O2SAT 94–100
[2016-03-02] MEDS: GABAPENTIN 250 MG/5 ML 470 ML BTL NG SCH ×4 (00:02→19:59)
[2016-03-02] MEDS: VANCOMYCIN INJ 1,900 MG in SODIUM CHLORIDE 0.9% 500ML 500 ML IV SCH ×2 (00:02→12:33)
[2016-03-02] MEDS: ARTIFICIAL TEARS OP SOLN OP SCH ×12 (00:03→20:00)
[2016-03-02] MEDS: DexMEDEtomidine HCL INJ 200 MCG in SODIUM CHLORIDE 0.9% 50ML 48 ML IV PRN ×3 (01:18→06:20)
[2016-03-02] MEDS: METHYLPREDNISOLONE IV 40 MG in SYRINGE 0 ML IV SCH ×3 (01:47→22:41)
[2016-03-02] MEDS: ALBUTEROL HFA 8 GM INHALER INH SCH ×3 (03:01→11:32)
[2016-03-02] MEDS: IPRATROPIUM BROMIDE HFA INHALER INH SCH ×3 (03:01→11:32)
[2016-03-02 05:36] LABS: COMPLETE YES; HEMATOCRIT 31.2 % (37-47); IG% 0.4 %; LYMPH ABS # 0.53 K/uL (1.2-3.4); MEAN CELL VOLUME 89.7 fL (80-100); MEAN CORPUSCULAR HEMOGLOBIN 27.6 pg (25-34); MEAN CORPUSCULAR HGB CONC 30.8 g/dl (32-36); MEAN PLATELET VOLUME 9.4 fL (7.4-10.4); MONO % 11.1 %; NEUT % 81.5 %; PLATELET COUNT 284 K/uL (130-400); RED BLOOD COUNT 3.48 M/uL (4.2-5.4); WHITE BLOOD COUNT 7.55 K/uL (4.8-10.8)
[2016-03-02] MEDS: INSULIN ASPART 100 UNITS/ML 3 ML PEN SC SCH ×4 (05:59→18:00)
[2016-03-02 06:12] LABS: BUN/CREATININE RATIO 46.5 (10-20); CALCIUM 8.5 mg/dl (8.5-10.1); CREATININE 0.84 mg/dl (0.60-1.20); MAGNESIUM 2.9 mg/dl (1.8-2.4); PHOSPHORUS 3.5 mg/dl (2.5-4.9); POTASSIUM 4.7 mmol/L (3.5-5.1)
[2016-03-02] MEDS: BUDESONIDE/FORMOTEROL FUMARATE 160/4.5 60 PUFFS/INHALER INH SCH ×2 (07:21→19:59)
--- NOTE | 2016-03-02 07:26 | DIAGNOSTIC IMAGING REPORT ---
CHEST ONE VIEW PORTABLE CLINICAL HISTORY: Intubated RESPIRATORY FAILURE COMPARISON STUDY: 03/01/2016 FINDINGS: There is a right-sided PICC catheter unchanged in position. There is an endotracheal tube 44 mm above the romina. There is radiographic evidence of emphysema. There is no evidence of focal pulmonary consolidation. Bibasilar densities are likely atelectatic. No pleural effusions are visualized.[ IMPRESSION: Emphysema. No evidence of lobar consolidation. Endotracheal tube 44 mm above the romina Electronically signed by: Byron Sauceda M.D. 03/02/2016 7:24 AM
[2016-03-02 09:26] LABS: ISTAT ALLEN TEST Pass; ISTAT ARTERIAL BLOOD GAS HCO3 29 meq/L (19-24); ISTAT ARTERIAL BLOOD GAS PCO2 58 mmHg (35-46); ISTAT ARTERIAL BLOOD GAS PO2 95 mmHg (80-95); ISTAT ARTERIAL BLOOD GAS pH 7.31 (7.35-7.45); ISTAT CARBON DIOXIDE 31 mEq/l (24-31); ISTAT DELIVERY SYSTEM VentiMask; ISTAT FIO2 30 %; ISTAT SITE R Radial
[2016-03-02] MEDS: CHLORHEXIDINE GLUCONATE 0.12% 480 ML MT SCH ×2 (09:27→19:59)
[2016-03-02] MEDS: PRAMIPEXOLE DIHYDROCHLORIDE 0.5 MG TAB PO SCH ×2 (09:31→20:00)
[2016-03-02] MEDS: ATORVASTATIN 10 MG TAB PO SCH (09:31)
[2016-03-02] MEDS: METOCLOPRAMIDE HCL 10 MG TAB PO SCH ×2 (09:33→14:00)
[2016-03-02] MEDS: DOCUSATE SODIUM 100 MG/10 ML UDC PO SCH ×2 (09:35→19:59)
[2016-03-02] MEDS: ENOXAPARIN 40 MG/0.4 ML SYR SQ SCH (09:35)
[2016-03-02] MEDS: ASPIRIN 81 MG CHEW PO SCH (09:35)
[2016-03-02] MEDS: LANSOPRAZOLE SOLUTAB 30 MG OG SCH ×2 (09:35→19:59)
[2016-03-02] MEDS: NORMOSOL R 1,000 ML IV SCH ×2 (09:35→22:41)
--- NOTE | 2016-03-02 10:33 | Critical Care Progress Note ---
Critical Care Progress Note Date of Service Mar 02, 2016. Attending Dr. Giordano Subjective This is a 60-year-old female who was intubated on 02/23, today is day 8. Overnight last night Ms. Kaminski was found to have fluid on her abdomen and was sitting up in bed frothing at the mouth. She became tachycardic and hypertensive, after suctioning and cleaning her up she returned to her normal status quo within a half hour and remained that way through the rest of the evening. She continues to have an elevated fever occasionally, Tmax last night was 38.3 without Tylenol. I've been in to see Mrs. Kaminski multiple times today and she continues to show improvement from a neurological standing. This morning I feared that she was unable to differentiate medical questions; however , at this time she is now answering yes or no by nodding her head. Ms. Kaminski has undergone no less than 2 ABGs this morning with consistent measurements. ABGs were pH 7.333, PCO2 56.7, PO2 91, HCO3 30.1. Looking back through previous records her HCO3 appears to run around this area at baseline. We will continue with the weaning trials. At this time her ventilator has been turned to CPAP with settings of 0/5 and 23% FiO2. We are continuing to monitor her effort of breathing and tidal volume. She demonstrated cough for the medical staff this morning. She continues to be very weak, unable to hold her head off the bed for more than 4 seconds. She nods her head to being very tired. I hope to extubate her today will continue to follow her settings, volumes, saturations, and clinical appearance. Physical Therapy did see this patient this morning. Pt claims she is not short of breath nor in any pain. Remainder of ROS cannot be obtained secondary to patient's condition and intubation. Objective General: NAD, intubated THIRD MILLER/Neuro: AAO x 0, PERRL, Significant weakness, unable to hold head off the bed for greater than 4 seconds Sedation: Precedex 1 mg/kg/hr/ Pain control: Tylenol 650 available, patient denies pain Respiratory: Coarse breath sounds bilaterally with occasional expiratory wheezes at left base ,without crackles or rhonchi, No paradoxical chest wall movement Intubated: Settings overnight into this morning 8 ET Tube, 24 cm at the lip, Pressure Support, Peak 65 , 400TV, 20 RR, 40% FIO2, 5 PEEP CPAP trial now: 0/5 23% FIO2 ABG: pH 7.333, PCO2 56.7, PO2 91, HCO3 30.1 CXR: : I have independently reviewed the report as well as the images dated * FINDINGS: There is a right-sided PICC catheter unchanged in position. There is an endotracheal tube 44 mm above the romina. There is radiographic evidence of emphysema. There is no evidence of focal pulmonary consolidation. Bibasilar densities are likely atelectatic. No pleural effusions are visualized. * IMPRESSION: Emphysema. No evidence of lobar consolidation. Endotracheal tube 44 mm above the romina HOB up 30 degrees: Yes Chlorhexidine: Yes Cardiovascular: NSR; No rubs, murmurs, gallops, or clicks appreciated SBP 114 CV drips: N/A EKG: I have independently reviewed the report as well as the images dated 02/29/16 ; QTc 385, NSR, Normal EKG ECHO: 02/23/16: EF >70%, no valvular dz noted, LV hyperdynamic and normal size , no regional wall motion abnormality, no pericardial effusion. Fluids/Renal: No fluids currently; Currently -129mL negative [place] to gravity in place Cr 0.84; BUN 39 GI/Nutrition: Normal active BS, Tympanic to percussion, Soft, NT, ND, without organomegaly NPO: Previously on tube feeds, held after possible emesis/aspiration episode last night Feeding: held Prophylaxis:Prevacid 30 BID Endocrine: Last 24 hour glucose: 157-203l;157 most recently Insulin protocol: Not applicable; Drip: Not applicable Hematology: H&H 9.6/31.2; plt 284 Coags: last checked 02/20 wnl DVT prophylaxis: * SCDs in place * Lovenox 40mg sq qAM Type and screen: Not currently indicated Skin/MSK: Significantly weak, presumed ICU myopathy, is able to nod head and squeeze hands , in SCDs Infectious Disease: Tmax: 38.4 (02/28/16); Afebrile since 03/01/13 WBC 7.55. Lactic Acid N/A Antimicrobials: Vancyomycin 1900mg q 12hrs day 06/06; Trough Level 12.5 (03/01/16) Previously rcv'd Cefepime d/c 03/01/16 Cultures: Blood: 02/28/16: No growth to date; 02/29/16: Urine: 02/28/16; Coag-negative staph, not saprophyticus C. difficile toxin:NA Access: Right upper arm Peripheral IV in place Assessment & Plan Reason Critically Ill: Patient is an 60-year-old female who is transferred to the ICU for Respiratory failure on .02/22/16 and ultimately required intubation after receiving BiPap. She is currently undergoing weaning trials with the hopes of extubation this afternoon. She is now presumed to have ICU myopathy from the interaction of her steroids with her previous neuromuscular blockade. She did not appear to tolerate her tube feeds overnight as per the HPI and these have been since turned off. Her sedatives continue to be turned back in preparation for extubation. PLAN: Resp: Acute Hypercapnic Respiratory Failure * Planned extubation after weaning trail * D/C Precedex * Reduce Methylprednisolone 40mg q6 to 40mg q8 * Continue Respiratory regimen: * Ipratropium 8 puffs q4 hrs * Albuterol 8 puffs q4hrs * Symbicort 2 puffs BID Neuro: ICU Myopathy * Tylenol on board for pain/fever PRN * PT/OT in place: Must undergo at a minimum passive range of motion exercises * Avoid further neuromuscular blockades * Continue Gabapentin 100mg TID * Continue Mirapex 0.25mg BID CV: Hypertension * Currently Normotensive * Labetalol 20 q 1hr PRN HTN * Metoprolol 5 PRN HTN * Continue Home-meds * Atorvastatin 10mg * ASA 81mg * Continue to monitor on telemetry Fluids/Renal: * Goal for neg to even I&O's * Start Normosol @ 75/hr * No diuresis planned for today Electrolytes: * Na 145, K 4.7; Cl 107, HCO3 32, Ca 8.5, Phos 3.5, Mr 2.9 * Hypernatremia improved with diuresis yesterday * Follow serial labs ID: Complicated UTI * Coag Neg Staph, Not Saprophyticus * Continue Vanco for total of 10 days * Follow Fever curve * Blood Cultures from 02/29/16 still pending; previous cultures with no growth GI/Nutrition: Constipation * No BM with Colace and Relistor yesterday * Administer Reglan 10mg PO TID for 2 days * Continue Colace 100mg PO BID * Feedings held due to intolerance last night * Continue Prophylaxis: Prevacid 30mg BID Heme: * H&H Stable * No current sign of bleeding * Follow Daily CBC * Continue current DVT prophylaxis with Lovenox 40mg AM Endocrine: DM2 * Continue SSI with Lantus * BSGs currently 157 * Accu-Checks per protocol, started insulin infusion for 2 blood sugars greater than 180 CCT: 90 Minutes; This time is exclusive of all separately billable procedures. Thank you for involving us in the care of this patient. Please refer to Dr. Tyrone Giordano's addendum for further recommendations. I have personally evaluated and examined this patient. I agree with assessment and plan of Emilia Darden PA-C. Patient underwent extended SBT at 0/ given significant myopathy at this time. Minimal secretions but decreased cough. Reactive airway disease greatly improved, I believe extubation should occur now as waiting for significant improvement in cough may be protracted. Data Medications: Current Inpatient Medications Medications (Trade) Dose Ordered Sig/Allison Route Start Time Stop Time Status Last Admin Dose Admin Ondansetron HCl (Zofran Inj) 4 mg Q6H PRN IV 02/22/16 02:15 03/23/16 02:14 Glucose (Glucose 40% Gel) 15-30 GRAMS 15 GRAMS... UD PRN PO 02/22/16 02:15 03/23/16 02:14 Glucose (Glucose Chew Tab) 4-8 Tablets 4 Tabl... UD PRN PO 02/22/16 02:15 03/23/16 02:14 Dextrose (Dextrose 50% 50ML Syringe) 25-50ML OF 50% DW IV FOR... UD PRN IV 02/22/16 02:15 03/23/16 02:14 Glucagon (Glucagon Inj) 1 mg UD PRN SQ 02/22/16 02:15 03/23/16 02:14 Miscellaneous Information (Consult Glycemic Management Pharmacy) 1 ea UD PRN N/A 02/22/16 02:45 03/23/16 02:44 Atorvastatin Calcium (Lipitor Tab) 10 mg QAM PO 02/22/16 09:00 03/23/16 08:59 03/02/16 09:31 10 MG Miscellaneous Information (Order Awaiting Action) 1 ea QS N/A 02/22/16 05:30 03/23/16 05:29 Budesonide/ Formoterol Fumarate (Symbicort 160/ 4.5 Inh) 2 puffs BID INH 02/22/16 21:00 03/23/16 20:59 03/01/16 19:16 2 PUFFS Enoxaparin Sodium (Lovenox Inj) 40 mg QAM SQ 02/23/16 09:00 03/24/16 08:59 03/02/16 09:35 40 MG Chlorhexidine Gluconate (Peridex Oral Soln) 15 ml BID MT 02/24/16 21:00 03/25/16 20:59 03/02/16 09:27 15 ML Insulin Aspart (novoLOG ASPART) SLIDING SCALE If C... Q6 SC 02/25/16 00:00 03/26/16 00:00 03/02/16 05:59 1 UNITS Ipratropium [place] (Atrovent Hfa Inhaler) 8 puffs Q4R INH 02/25/16 13:15 03/26/16 13:14 03/02/16 07:38 8 PUFFS Albuterol (Ventolin Hfa Inhaler) 8 puffs Q4R INH 02/25/16 13:15 03/26/16 13:14 03/02/16 07:38 8 PUFFS Albuterol (Ventolin Hfa Inhaler) 4 puffs Q2R PRN INH 02/25/16 10:45 03/26/16 10:44 Aspirin (Aspirin Chew) 81 mg QAM PO 02/27/16 09:00 03/28/16 08:59 03/02/16 09:35 81 MG Insulin Glargine (Lantus Solostar Pen) 10 unit HS SC 02/27/16 21:00 03/28/16 20:59 02/29/16 20:27 10 UNIT Artificial Tears (Artificial Tears) 2 drops Q4H OP 02/27/16 16:00 03/28/16 15:59 03/02/16 09:27 2 DROPS Metoprolol Tartrate (Lopressor Iv) 5 mg Q6 PRN IV 02/27/16 18:00 03/28/16 17:59 03/01/16 11:40 5 MG Pramipexole Dihydrochloride (miraPEX TAB) 0.25 mg BID PO 02/28/16 09:00 03/29/16 08:59 03/02/16 09:31 0.25 MG Docusate Sodium (coLACE SYRUP) 100 mg BID PO 02/28/16 09:00 03/29/16 08:59 03/02/16 09:35 100 MG Labetalol HCl (Normodyne IV) 20 mg Q1H PRN IV 02/28/16 10:00 03/29/16 09:59 03/01/16 11:47 20 MG Vancomycin HCl (Consult) 1 ea UD PRN N/A 02/28/16 12:00 03/29/16 11:59 Gabapentin (Neurontin) 100 mg TID NG 02/29/16 14:00 03/30/16 13:59 03/02/16 09:35 100 MG Hydralazine HCl (HydrALAZINE INJ) 10 mg Q6H PRN IV. 02/29/16 12:45 03/30/16 12:44 Lansoprazole (Prevacid Solutab) 30 mg BID OG 03/01/16 09:00 03/31/16 08:59 03/02/16 09:35 30 MG Acetaminophen 650 mg 650 mg Q4H PRN NG 02/29/16 21:15 03/30/16 21:14 02/29/16 21:36 650 MG Dexmedetomidine HCl/Sodium Chloride (PreCEDEX INJ/ Nss 50ml) 50 ml @ 0 mls/hr Q0M PRN IV 03/01/16 11:15 03/05/16 11:14 03/02/16 06:20 22 MLS/HR Enteral Nutritional Formula 1800 ml 1,800 ml UD OG 03/01/16 11:30 03/31/16 11:29 Future Hold Vancomycin HCl 1900 mg/Sodium Chloride 538 ml @ 200 mls/hr Q12H IV 03/02/16 00:00 03/10/16 00:00 03/02/16 00:02 200 MLS/HR Ketamine HCl/ Sodium Chloride (Ketalar Steri-Vial Inj/ Nss 500ml) 500 ml @ 0 mls/hr Q0M PRN IV 03/01/16 14:30 03/31/16 14:29 Future Hold Metoclopramide HCl 10 mg 10 mg TID PO 03/02/16 09:00 03/03/16 21:01 03/02/16 09:33 10 MG Methylprednisolone Sodium Succinate 40 mg/Syringe 0.64 ml @ 1.5 mls/min Q8H IV 03/02/16 14:00 04/01/16 13:59 Parenteral Electrolyte Solution (Normosol R) 1,000 ml @ 75 mls/hr [id number] IV 03/02/16 09:15 04/01/16 09:14 03/02/16 09:35 75 MLS/HR Heparin Sodium (Porcine) (Heparin 10 Unit/ ml 5 ml Flush) 5 ml PRN PRN FLUSH 03/02/16 10:00 04/01/16 09:59 I & O: 24-Hour Column 03/02/16 08:00 Intake Total 2213 ml Output Total 4750 ml Balance -2537 ml Vital Signs: Date Time Temp Pulse Resp B/P Pulse Ox O2 Delivery O2 Flow Rate FiO2 03/02/16 08:30 30 03/02/16 08:00 37.2 88 24 95/66 100 Mechanical Ventilator 40 03/02/16 08:00 100 Mechanical Ventilator 40 03/02/16 08:00 40 03/02/16 07:39 40 03/02/16 05:59 95 20 96/72 100 Mechanical Ventilator 40 03/02/16 05:20 40 03/02/16 04:58 93 20 114/71 100 Mechanical Ventilator 40 03/02/16 04:00 40 03/02/16 04:00 Mechanical Ventilator 03/02/16 03:59 37.6 101 22 133/87 100 Mechanical Ventilator 40 03/02/16 03:02 50 03/02/16 02:59 88 20 147/74 97 Mechanical Ventilator 50 03/02/16 01:59 98 20 102/74 100 Mechanical Ventilator 50 03/02/16 00:59 97 94/63 100 Mechanical Ventilator 50 03/02/16 00:00 50 03/02/16 00:00 Mechanical Ventilator 03/01/16 23:59 37.2 95 139/50 100 Mechanical Ventilator 80 03/01/16 23:25 60 03/01/16 22:58 98 122/75 100 Mechanical Ventilator 80 03/01/16 22:35 80 03/01/16 21:59 103 100/70 100 Mechanical Ventilator 80 03/01/16 21:04 107 109/72 100 Mechanical Ventilator 80 03/01/16 20:00 80 03/01/16 20:00 Mechanical Ventilator 03/01/16 19:59 38.3 111 108/80 100 Mechanical Ventilator 80 03/01/16 19:17 100 03/01/16 18:20 100 03/01/16 17:00 30 03/01/16 16:00 97 Mechanical Ventilator 03/01/16 14:30 30 03/01/16 14:00 106 20 157/100 98 Mechanical Ventilator 30 03/01/16 13:00 37.2 98 20 158/125 98 Mechanical Ventilator 35 03/01/16 12:00 35 03/01/16 12:00 99 Mechanical Ventilator 35 03/01/16 11:40 109 167/120 03/01/16 11:31 35 03/01/16 11:00 109 17 167/120 100 Mechanical Ventilator 35 Laboratory Results: Last 24 Hours Test 03/01/16 11:46 03/01/16 13:20 03/01/16 14:45 03/01/16 19:47 Bedside Glucose 178 mg/dl Total Creatine Kinase 365 U/L Vancomycin Level Trough 12.5 mcg/ml Ionized Calcium 0.98 mmol/l Rheumatoid Factor < 10.0 U/mL Test 03/01/16 21:16 03/02/16 00:01 03/02/16 05:25 03/02/16 05:55 Bedside Glucose 157 mg/dl 170 mg/dl 184 mg/dl White Blood Count 7.55 K/uL Red Blood Count 3.48 M/uL Hemoglobin 9.6 g/dL Hematocrit 31.2 % Mean Corpuscular Volume 89.7 fL Mean Corpuscular Hemoglobin 27.6 pg Mean Corpuscular Hemoglobin Concent 30.8 g/dl Platelet Count 284 K/uL Mean Platelet Volume 9.4 fL Neutrophils (%) (Auto) 81.5 % Lymphocytes (%) (Auto) 7.0 % Monocytes (%) (Auto) 11.1 % Eosinophils (%) (Auto) 0.0 % Basophils (%) (Auto) 0.0 % Neutrophils # (Auto) 6.15 K/uL Lymphocytes # (Auto) 0.53 K/uL Monocytes # (Auto) 0.84 K/uL Eosinophils # (Auto) 0.00 K/uL Basophils # (Auto) 0.00 K/uL RDW Standard Deviation 47.3 fL RDW Coefficient of Variation 14.3 % Immature Granulocyte % (Auto) 0.4 % Immature Granulocyte # (Auto) 0.03 K/uL Nucleated RBC Absolute Count (auto) 0.02 K/uL Nucleated Red Blood Cells % 0.3 % Sodium Level 145 mmol/L Potassium Level 4.7 mmol/L Chloride Level 107 mmol/L Carbon Dioxide Level 32 mmol/L Anion Gap 6.0 mmol/L Blood Urea Nitrogen 39 mg/dl Creatinine 0.84 mg/dl Est Creatinine Clear Calc Drug Dose 82.2 ml/min Estimated GFR () 86.9 Estimated GFR (Non- 75.0 BUN/Creatinine Ratio 46.5 Random Glucose 203 mg/dl Calcium Level 8.5 mg/dl Phosphorus Level 3.5 mg/dl Magnesium Level 2.9 mg/dl Test 03/02/16 06:50 03/02/16 09:12 Total Creatine Kinase 373 U/L HIV (1&2) Ab and P24 Ag, 4th Gener NEG Blood Gas Sample Site R Radial Bedside Blood Gas pH (LAB) 7.31 Bedside Blood Gas pCO2 (LAB) 58 mmHg Bedside Blood Gas pO2 (LAB) 95 mmHg Bedside Blood Gas HCO3 (LAB) 29 meq/L Bedside Blood Gas Total CO2 31 mEq/l Bedside Blood Gas Base Excess (LAB) 3.0 meq/L Bedside Blood Gas O2 Saturation 96.0 % Ziyad Test Pass Oxygen Delivery Device VentiMask Bedside FiO2 30 %
[2016-03-02 10:40] LABS: ISTAT ALLEN TEST Pass; ISTAT ARTERIAL BLOOD GAS HCO3 30 meq/L (19-24); ISTAT ARTERIAL BLOOD GAS PCO2 58 mmHg (35-46); ISTAT ARTERIAL BLOOD GAS PO2 94 mmHg (80-95); ISTAT ARTERIAL BLOOD GAS pH 7.32 (7.35-7.45); ISTAT CARBON DIOXIDE 32 mEq/l (24-31); ISTAT DELIVERY SYSTEM Ventilator; ISTAT FIO2 30 %; ISTAT PEEP 5; ISTAT SITE R Radial
--- NOTE | 2016-03-02 14:24 | Progress Note ---
Progress Note Critical Care Clinical Update: Attending Dr. Tyrone Giordano Pt underwent a weaning trial on CPAP at 0/5 and 23% FIO2 for no less than 4 hours today. She had a Tidal Volume of at least 10ml/kg of ideal body weight, a P:F ration of >300 and a Rapid Shallow Breath Index of 50. Pt was extubated to 4L nasal cannula with BiPap machine at bedside. Pt remains stable with adequate oxygenation above 95% one hour later. Will keep BiPap nearby for pt if needed. Will wean down the supplemental O2 as tolerated. * Pt is to be NPO to limit aspiration risk at this time * OG tube was pulled with extubation, will need to convert previous PO meds. * Will continue to monitor respiratory status closely
[2016-03-02] MEDS: ALBUT/IPRATROP 3MG/0.5MG NEB 3 ML VIAL INH SCH ×3 (15:22→23:43)
--- NOTE | 2016-03-02 15:40 | Pharmacy Progress Note ---
Glycemic Control: Progress Nt Date of Service Mar 02, 2016. Scope Glycemic Pharmacist consulted by Dr Murillo on 02/22/16 for glycemic control and to write orders per [facility] inpatient glycemic control protocol. Objective Accuchecks BSG (last 24hrs): Test 03/01/16 21:16 03/02/16 00:01 03/02/16 05:25 03/02/16 05:55 Bedside Glucose 157 mg/dl (70-90) 170 mg/dl (70-90) 184 mg/dl (70-90) Random Glucose 203 mg/dl (70-99) Laboratory Data (last 24hrs) Test 03/02/16 05:25 Anion Gap 6.0 mmol/L BUN/Creatinine Ratio 46.5 Blood Urea Nitrogen 39 mg/dl Creatinine 0.84 mg/dl Potassium Level 4.7 mmol/L Sodium Level 145 mmol/L White Blood Count 7.55 K/uL Red Blood Count 3.48 M/uL Hemoglobin 9.6 g/dL Hematocrit 31.2 % Mean Corpuscular Volume 89.7 fL Mean Corpuscular Hemoglobin 27.6 pg Mean Corpuscular Hemoglobin Concent 30.8 g/dl Platelet Count 284 K/uL Mean Platelet Volume 9.4 fL Neutrophils (%) (Auto) 81.5 % Lymphocytes (%) (Auto) 7.0 % Monocytes (%) (Auto) 11.1 % Eosinophils (%) (Auto) 0.0 % Basophils (%) (Auto) 0.0 % Neutrophils # (Auto) 6.15 K/uL Lymphocytes # (Auto) 0.53 K/uL Monocytes # (Auto) 0.84 K/uL Eosinophils # (Auto) 0.00 K/uL Basophils # (Auto) 0.00 K/uL HbA1c: Test 02/23/16 05:32 Hemoglobin A1c 6.7 % (4.5-5.6) H Recent Pertinent Medications Outpatient Anti-diabetic Regimen: * Glimepiride 0.5mg PO Q AM * Metformin 1000mg PO BID * A1c = 6.9 % 04/02/15 The patient is currently receiving: * Basal insulin: Lantus 10 units SQ Q HS; give 1/2 dose if BSG less than 120 * Correctional Insulin: Novolog Correction per scale ACHS Goal Range: Low 140 mg/dL - High 180 mg/dL Correction Factor: 20 mg/dL/unit * Prandial insulin: Novolog SQ Q 6 hrs to cover carbs in Peptamen TF' s (using CR of ~ 1:7) * Oral Agents: None currently Risk Factors for Insulin Resistance: * Steroids: Solu-Medrol 60mg IV Q 6 hours --> being reduced to 40mg IV Q 8 hours * Infection: receiving Vancomycin for fever; possible UTI, aspiration? * Diet: tube feeds off since yesterday * Mechanical Ventilation: Patient extubated this afternoon Assessment & Plan ASSESSMENT: 02/22/16 * Type 2 diabetic admitted w/ COPD exacerbation failing treatment w/ outpt abx and prednisone. * She is treated w/ 2 oral hypoglycemics - that are currently on hold; and should remain on hold as she is now receiving high dose IV corticosteroids. Will use SQ basal/bolus regimen to achieve glycemic targets. * She has been admitted in the past and received SQ Novolog (CF + CR) alone to control hyperglycemia while on IV steroids; she was not given basal insulin or her oral hypoglycemics. Her current fasting BSG is 202; so I am inclined to give a single small dose of Lantus this AM and reevaluate basal needs tomorrow AM. Perhaps she is more stressed this admission and may require some basal insulin. * The current Novolog CF and CR are reasonable, however the CR dose could be increased a little. * Most recent A1c is from 03/2015; will check w/ AM labs tomorrow to determine appropriateness of outpt regimen 02/29/16 * BSGs have ranged 177-232 over the last 24 hours * She has received 28 units of SQ insulin over the last 24 hrs * Tube feeds have been on hold due to increased residuals, lack of BM, decreased BS, and concern for malposition of feeding tube. A repeat KUB to be done today to confirm position before restarting feeds. Also to receive metoclopramide IV x 1 today to stim GI motility * Will change Novolog order to allow for greater flexibility with carb coverage of tube feeds. Will use a CR of 1:7 * Will need to monitor for falling BSGs as tube feeds are held with continued Lantus dosing. Pt is on ATC steroids and on mech vent, so likely needs some amount of basal insulin. There is a "half-dose" parameter should BSG dip too low. 03/01/16 * Glycemic control has improved over the last 24 hours, BSGs 124-188 * Tube feeds had been on hold for a period of time secondary to concern for aspiration of feeds and misplaced feeding tube. Correct placement of feeding tube has been confirmed and feedings have been resumed. * Feeds have been changed to Impact which contains more carbs and may lead to rising BSGs. I would still like to continue with the same CR however to cover the new feeds. * Steroid dose is being titrated down, however is still relatively high, would not expect much improved insulin sensitivity but will monitor 03/02/16 * BSGs 101-203 over the last 24 hours, most BSGs less than 180 * Stressors lessening: extubated, continuous tube feeds off, steroid dose reduced again --> insulin resistance will likely improve * Lantus dose held last evening. Fasting BSG elevated this AM during SBT, however down to 101 this afternoon. Will reduce Lantus dose as a precaution. * Will add CR to current Novolog order should pt pass swallow eval and have diet today PLAN FOR INPATIENT GLYCEMIC CONTROL: * Reduce Lantus to 5 units Q HS; hold dose if BSG less than 120 * Continuing correction factor of 20 mg/dl/unit * Carb ratio of 1 unit per 7gm CHO consumed * Continue goal range of Low 140 mg/dL - High 180 mg/dL * Reevaluate insulin doses with each step down in steroid dose * Please note that the plan above was derived based on current level of insulin resistance and hospital stress. These recommendations are appropriate for inpatient admission only. Plan of care upon discharge will need to be reassessed to avoid potential outpatient hypo/hyperglycemia. Thank you.
--- NOTE | 2016-03-02 17:37 | DIAGNOSTIC IMAGING REPORT ---
KUB CLINICAL HISTORY: verify core safe placement tube position COMPARISON STUDY: 02/29/2016 FINDINGS: Core safe tube placed with the tip in the proximal duodenal sweep. Nonobstructive bowel pattern. IMPRESSION: Core safe tube placed with the tip in the proximal duodenal sweep Electronically signed by: Fuentes Lewis M.D. 03/02/2016 5:35 PM
[2016-03-02] MEDS: METOCLOPRAMIDE HCL INJ 5 MG/ML 2 ML VIAL IV. SCH (18:08)
--- NOTE | 2016-03-02 19:38 | Progress Note ---
Internal Med Progress Note Date of Service: Mar 02, 2016. Provider Documentation: SUBJECTIVE: s/p intubated more alert today able to obey commands later had weaning trial and got extubated afebrile hemodynamics stable OBJECTIVE: Vital Signs-as noted below Exam: General-s/p intubated. opens eyes Neck-no neck masses Lungs-cta b/l , no wheezing or crackles Heart-s1 and s2 heard regular, no murmurs Abdomen-soft bowel sounds present no distension Extremities-no edema present no erythema Neuro-s/p intubated obeys simple commands Lab data as noted below. ASSESSMENT & PLAN: 60 year old female with history of COPD, Asthma DM, HTN other problems noted below presenting with increasing shortness of breath. Copd/Asthma exacerbation initially required bipap and later intubated #7 currently on iv solumedrol, and inhalers plan for vent weaning as per critical care s/p extubation today on nasal canula bipap prn DM holding glimepiride and metformin on iss will closely monitor while on steroids 157/170/203/184 Depression/Anxiety continue home meds appreciate psychiatry inputs GERD Zantac added ppi Restless leg syndrome on Requip HTN home losartan.on hold on iv lopressor and iv hydralazine prn will monitor DVT PROPHYLAXIS scds. Lovenox DISPOSITION close monitor in icu for now Vital Signs: Date Time Temp Pulse Resp B/P Pulse Ox O2 Delivery O2 Flow Rate FiO2 03/02/16 15:23 108 16 98 Nasal Cannula 4.0 03/02/16 14:00 103 22 126/61 97 Nasal Cannula 4.0 Humidified Oxygen 03/02/16 12:00 95 Mechanical Ventilator 03/02/16 12:00 89 94 03/02/16 10:20 30 03/02/16 10:00 99 14 144/85 99 CPAP 23 03/02/16 09:30 89 99 03/02/16 08:30 30 03/02/16 08:00 37.2 88 24 95/66 100 Mechanical Ventilator 40 03/02/16 08:00 100 Mechanical Ventilator 40 03/02/16 08:00 40 03/02/16 07:39 40 03/02/16 05:59 95 20 96/72 100 Mechanical Ventilator 40 03/02/16 05:20 40 03/02/16 04:58 93 20 114/71 100 Mechanical Ventilator 40 03/02/16 04:00 40 03/02/16 04:00 Mechanical Ventilator 03/02/16 03:59 37.6 101 22 133/87 100 Mechanical Ventilator 40 03/02/16 03:02 50 03/02/16 02:59 88 20 147/74 97 Mechanical Ventilator 50 03/02/16 01:59 98 20 102/74 100 Mechanical Ventilator 50 03/02/16 00:59 97 94/63 100 Mechanical Ventilator 50 03/02/16 00:00 50 03/02/16 00:00 Mechanical Ventilator 03/01/16 23:59 37.2 95 139/50 100 Mechanical Ventilator 80 03/01/16 23:25 60 03/01/16 22:58 98 122/75 100 Mechanical Ventilator 80 03/01/16 22:35 80 03/01/16 21:59 103 100/70 100 Mechanical Ventilator 80 03/01/16 21:04 107 109/72 100 Mechanical Ventilator 80 03/01/16 20:00 80 03/01/16 20:00 Mechanical Ventilator 03/01/16 19:59 38.3 111 108/80 100 Mechanical Ventilator 80 Lab Results: Results Past 24 Hours Test 03/01/16 19:47 03/01/16 21:16 03/02/16 00:01 03/02/16 05:25 Range/Units Rheumatoid Factor < 10.0 0-15 U/mL Bedside Glucose 157 170 70-90 mg/dl White Blood Count 7.55 4.8-10.8 K/uL Red Blood Count 3.48 4.2-5.4 M/uL Hemoglobin 9.6 12.0-16.0 g/dL Hematocrit 31.2 37-47 % Mean Corpuscular Volume 89.7 80-100 fL Mean Corpuscular Hemoglobin 27.6 25-34 pg Mean Corpuscular Hemoglobin Concent 30.8 32-36 g/dl Platelet Count 284 130-400 K/uL Mean Platelet Volume 9.4 7.4-10.4 fL Neutrophils (%) (Auto) 81.5 % Lymphocytes (%) (Auto) 7.0 % Monocytes (%) (Auto) 11.1 % Eosinophils (%) (Auto) 0.0 % Basophils (%) (Auto) 0.0 % Neutrophils # (Auto) 6.15 1.4-6.5 K/uL Lymphocytes # (Auto) 0.53 1.2-3.4 K/uL Monocytes # (Auto) 0.84 0.11-0.59 K/uL Eosinophils # (Auto) 0.00 0-0.5 K/uL Basophils # (Auto) 0.00 0-0.2 K/uL RDW Standard Deviation 47.3 36.4-46.3 fL RDW Coefficient of Variation 14.3 11.5-14.5 % Immature Granulocyte % (Auto) 0.4 % Immature Granulocyte # (Auto) 0.03 0.00-0.02 K/uL Nucleated RBC Absolute Count (auto) 0.02 0-0 K/uL Nucleated Red Blood Cells % 0.3 % Sodium Level 145 136-145 mmol/L Potassium Level 4.7 3.5-5.1 mmol/L Chloride Level 107 98-107 mmol/L Carbon Dioxide Level 32 21-32 mmol/L Anion Gap 6.0 3-11 mmol/L Blood Urea Nitrogen 39 7-18 mg/dl Creatinine 0.84 0.60-1.20 mg/dl Est Creatinine Clear Calc Drug Dose 82.2 ml/min Estimated GFR () 86.9 Estimated GFR (Non- 75.0 BUN/Creatinine Ratio 46.5 10-20 Random Glucose 203 70-99 mg/dl Calcium Level 8.5 8.5-10.1 mg/dl Phosphorus Level 3.5 2.5-4.9 mg/dl Magnesium Level 2.9 1.8-2.4 mg/dl Test 03/02/16 05:55 03/02/16 06:50 03/02/16 09:12 03/02/16 10:24 Range/Units Bedside Glucose 184 70-90 mg/dl Total Creatine Kinase 373 26-192 U/L HIV (1&2) Ab and P24 Ag, 4th Gener NEG NEG Blood Gas Sample Site R Radial R Radial Bedside Blood Gas pH (LAB) 7.31 7.32 7.35-7.45 Bedside Blood Gas pCO2 (LAB) 58 58 35-46 mmHg Bedside Blood Gas pO2 (LAB) 95 94 80-95 mmHg Bedside Blood Gas HCO3 (LAB) 29 30 19-24 meq/L Bedside Blood Gas Total CO2 31 32 24-31 mEq/l Bedside Blood Gas Base Excess (LAB) 3.0 4.0 -9-1.8 meq/L Bedside Blood Gas O2 Saturation 96.0 96.0 90-95 % Ziyad Test Pass Pass Oxygen Delivery Device VentiMask Ventilator Bedside FiO2 30 30 % Blood Gas PEEP 5
[2016-03-02] MEDS ORDERED: INSULIN GLARGINE SOLOSTAR 100 UNITS/ML 3 ML PEN SC SCH (21:00)
[2016-03-02] MEDS: METOPROLOL TARTRATE 1 MG/ML VIAL IV PRN (21:05)
[2016-03-02] MEDS: ACETAMINOPHEN SOLN 650MG/20.3 ML UDC NG PRN (21:05)
[2016-03-03] VITALS (37 sets, daily range): BP systolic 97–158; BP diastolic 58–128; PULSE 98–122; TEMP 36.8–37.5; O2SAT 89–99
[2016-03-03] MEDS: METOCLOPRAMIDE HCL INJ 5 MG/ML 2 ML VIAL IV. SCH ×2 (00:04→08:23)
[2016-03-03] MEDS: ARTIFICIAL TEARS OP SOLN OP SCH ×14 (00:04→23:35)
[2016-03-03] MEDS: VANCOMYCIN INJ 1,900 MG in SODIUM CHLORIDE 0.9% 500ML 500 ML IV SCH ×2 (00:05→12:51)
[2016-03-03] MEDS ORDERED: ROPINIROLE HCL 0.25 MG TAB PO ONE (01:45)
[2016-03-03] MEDS: ACETAMINOPHEN SOLN 650MG/20.3 ML UDC NG PRN ×2 (03:59→21:16)
[2016-03-03] MEDS: ALBUT/IPRATROP 3MG/0.5MG NEB 3 ML VIAL INH SCH ×6 (04:09→23:45)
[2016-03-03] MEDS: INSULIN ASPART 100 UNITS/ML 3 ML PEN SC SCH ×3 (05:45→12:00)
[2016-03-03 06:08] LABS: HEMATOCRIT 28.2 % (37-47); IG% 0.5 %; LYMPH % 15.2 %; LYMPH ABS # 0.95 K/uL (1.2-3.4); MEAN CELL VOLUME 89.2 fL (80-100); MEAN CORPUSCULAR HEMOGLOBIN 27.5 pg (25-34); MEAN CORPUSCULAR HGB CONC 30.9 g/dl (32-36); MEAN PLATELET VOLUME 9.5 fL (7.4-10.4); MONO % 12.2 %; NEUT % 72.1 %; PLATELET COUNT 269 K/uL (130-400); RED BLOOD COUNT 3.16 M/uL (4.2-5.4); WHITE BLOOD COUNT 6.23 K/uL (4.8-10.8)
[2016-03-03] MEDS: METHYLPREDNISOLONE IV 40 MG in SYRINGE 0 ML IV SCH ×2 (06:35→17:01)
[2016-03-03 06:41] LABS: COMPLETE YES
[2016-03-03 06:49] LABS: BUN/CREATININE RATIO 46.5 (10-20); CALCIUM 7.9 mg/dl (8.5-10.1); CREATININE 0.54 mg/dl (0.60-1.20); MAGNESIUM 2.6 mg/dl (1.8-2.4); POTASSIUM 3.8 mmol/L (3.5-5.1)
--- NOTE | 2016-03-03 07:14 | DIAGNOSTIC IMAGING REPORT ---
CHEST ONE VIEW PORTABLE HISTORY: Short of breath. Intubated COMPARISON: Chest 03/02/2016. FINDINGS: The endotracheal tube is been removed. The right PICC terminates in the SVC. No pneumothorax. No pleural effusions. Emphysema. No focal lung consolidations to suggest pneumonia. No evidence for pulmonary edema. The distal feeding tube is not well visualized but likely resides below the level of the diaphragm. This was shown to be below the diaphragm on the prior KUB. IMPRESSION: The endotracheal tube has been removed. Emphysema. The distal feeding tube is now well-visualized but likely resides below the level of the diaphragm as seen on yesterday's KUB. Electronically signed by: Francesco Rowe M.D. 03/03/2016 7:12 AM
[2016-03-03 07:52] LABS: PHOSPHORUS 1.2 mg/dl (2.5-4.9)
[2016-03-03] MEDS ORDERED: NURSING VERBAL MED ORDER ONE (08:00)
[2016-03-03] MEDS: BUDESONIDE/FORMOTEROL FUMARATE 160/4.5 60 PUFFS/INHALER INH SCH ×2 (08:26→21:14)
[2016-03-03] MEDS: CHLORHEXIDINE GLUCONATE 0.12% 480 ML MT SCH ×2 (08:27→21:14)
[2016-03-03] MEDS: GABAPENTIN 250 MG/5 ML 470 ML BTL NG SCH ×3 (08:30→21:14)
[2016-03-03] MEDS: DOCUSATE SODIUM 100 MG/10 ML UDC PO SCH ×2 (08:31→21:15)
[2016-03-03] MEDS: ASPIRIN 81 MG CHEW PO SCH (08:31)
[2016-03-03] MEDS: LANSOPRAZOLE SOLUTAB 30 MG OG SCH ×2 (08:31→21:15)
[2016-03-03] MEDS: ATORVASTATIN 10 MG TAB PO SCH (08:32)
[2016-03-03] MEDS: PRAMIPEXOLE DIHYDROCHLORIDE 0.5 MG TAB PO SCH ×2 (08:32→21:15)
[2016-03-03] MEDS: ENOXAPARIN 40 MG/0.4 ML SYR SQ SCH (08:35)
[2016-03-03] MEDS ORDERED: DEXTROSE 5% IV ONE (09:00)
[2016-03-03] MEDS ORDERED: POTASSIUM PHOSPHATE IV ONE (09:00)
[2016-03-03] MEDS ORDERED: NALOXONE HCL INJ 0.4 MG/1 ML VIAL/CARP XX SCH (10:00)
--- NOTE | 2016-03-03 11:11 | Progress Note ---
Internal Med Progress Note Date of Service: Mar 03, 2016. Provider Documentation: SUBJECTIVE: s/p extubated more alert today and talking able to obey commands oriented x 3 afebrile tachycardia denies chest pain sob better OBJECTIVE: Vital Signs-as noted below Exam: General-alert and awake Neck-no neck masses Lungs-cta b/l , no wheezing or crackles Heart-s1 and s2 heard regular, no murmurs Abdomen-soft bowel sounds present no distension Extremities-no edema present no erythema Neuro- alert and oriented moves extremities obeys simple commands Lab data as noted below. ASSESSMENT & PLAN: 60 year old female with history of COPD, Asthma DM, HTN other problems noted below presenting with increasing shortness of breath. Copd/Asthma exacerbation initially required bipap and later intubated #8 currently on iv solumedrol, and inhalers s/p extubation yesterday on nasal canula still tachycardic bipap prn DM holding glimepiride and metformin on iss will closely monitor while on steroids 149/124/162/147 Depression/Anxiety continue home meds appreciate psychiatry inputs GERD Zantac added ppi Restless leg syndrome on Requip HTN home losartan.on hold on iv lopressor and iv hydralazine prn will monitor DVT PROPHYLAXIS scds. Lovenox DISPOSITION close monitor in icu for now Vital Signs: Date Time Temp Pulse Resp B/P Pulse Ox O2 Delivery O2 Flow Rate FiO2 03/03/16 08:03 108 18 98 Nasal Cannula 2.0 03/03/16 05:59 110 23 122/72 95 03/03/16 05:29 112 17 130/68 94 03/03/16 04:59 107 15 131/67 97 03/03/16 04:29 109 15 121/70 97 03/03/16 04:09 114 16 97 Nasal Cannula 2.0 03/03/16 04:00 Nasal Cannula 2.0 03/03/16 03:59 37.5 110 17 135/70 98 Nasal Cannula 2.0 Humidified Oxygen 03/03/16 03:29 109 19 130/69 97 03/03/16 02:59 104 15 134/68 98 03/03/16 02:29 103 15 144/63 97 03/03/16 01:59 108 19 150/71 97 03/03/16 01:29 109 137/64 97 03/03/16 00:59 100 117/63 97 03/03/16 00:29 98 126/58 97 03/03/16 00:01 Nasal Cannula 2.0 03/02/16 23:59 37.0 100 125/66 97 Nasal Cannula 2.0 Humidified Oxygen 03/02/16 23:43 101 18 97 Nasal Cannula 3.0 03/02/16 23:29 101 140/67 98 03/02/16 22:59 100 18 124/68 98 Nasal Cannula 3.0 Humidified Oxygen 03/02/16 22:29 112 104/70 98 03/02/16 21:59 106 101/69 97 Nasal Cannula 3.0 Humidified Oxygen 03/02/16 21:05 117 133/76 03/02/16 20:59 113 127/68 97 Nasal Cannula 3.0 Humidified Oxygen 03/02/16 20:30 113 18 96 Nasal Cannula 3.0 03/02/16 20:00 Nasal Cannula 3.0 03/02/16 19:59 37.7 111 139/73 96 Nasal Cannula 3.0 Humidified Oxygen 03/02/16 19:29 112 151/80 96 Nasal Cannula 3.0 Humidified Oxygen 03/02/16 18:04 104 102/74 97 03/02/16 16:00 96 Nasal Cannula 4.0 03/02/16 15:59 97 109/60 96 03/02/16 15:23 108 16 98 Nasal Cannula 4.0 03/02/16 14:00 103 22 126/61 97 Nasal Cannula 4.0 Humidified Oxygen 03/02/16 12:00 95 Mechanical Ventilator 03/02/16 12:00 89 94 Lab Results: Results Past 24 Hours Test 03/02/16 12:41 03/02/16 18:01 03/02/16 20:54 03/03/16 00:14 Range/Units Bedside Glucose 101 165 149 124 70-90 mg/dl Test 03/03/16 05:38 03/03/16 05:41 Range/Units Bedside Glucose 162 70-90 mg/dl White Blood Count 6.23 4.8-10.8 K/uL Red Blood Count 3.16 4.2-5.4 M/uL Hemoglobin 8.7 12.0-16.0 g/dL Hematocrit 28.2 37-47 % Mean Corpuscular Volume 89.2 80-100 fL Mean Corpuscular Hemoglobin 27.5 25-34 pg Mean Corpuscular Hemoglobin Concent 30.9 32-36 g/dl Platelet Count 269 130-400 K/uL Mean Platelet Volume 9.5 7.4-10.4 fL Neutrophils (%) (Auto) 72.1 % Lymphocytes (%) (Auto) 15.2 % Monocytes (%) (Auto) 12.2 % Eosinophils (%) (Auto) 0.0 % Basophils (%) (Auto) 0.0 % Neutrophils # (Auto) 4.49 1.4-6.5 K/uL Lymphocytes # (Auto) 0.95 1.2-3.4 K/uL Monocytes # (Auto) 0.76 0.11-0.59 K/uL Eosinophils # (Auto) 0.00 0-0.5 K/uL Basophils # (Auto) 0.00 0-0.2 K/uL RDW Standard Deviation 46.5 36.4-46.3 fL RDW Coefficient of Variation 14.3 11.5-14.5 % Immature Granulocyte % (Auto) 0.5 % Immature Granulocyte # (Auto) 0.03 0.00-0.02 K/uL Red Blood Cell Morphology Unremarkable Sodium Level 147 136-145 mmol/L Potassium Level 3.8 3.5-5.1 mmol/L Chloride Level 109 98-107 mmol/L Carbon Dioxide Level 29 21-32 mmol/L Anion Gap 9.0 3-11 mmol/L Blood Urea Nitrogen 25 7-18 mg/dl Creatinine 0.54 0.60-1.20 mg/dl Est Creatinine Clear Calc Drug Dose 129.5 ml/min Estimated GFR () 118.0 Estimated GFR (Non- 101.8 BUN/Creatinine Ratio 46.5 10-20 Random Glucose 147 70-99 mg/dl Calcium Level 7.9 8.5-10.1 mg/dl Phosphorus Level 1.2 2.5-4.9 mg/dl Magnesium Level 2.6 1.8-2.4 mg/dl
[2016-03-03] MEDS ORDERED: VANCOMYCIN TROUGH ONE ×2 (11:30)
[2016-03-03] MEDS: NORMOSOL R 1,000 ML IV SCH ×2 (11:55→21:40)
[2016-03-03] MEDS: FEEDING WATER FLUSH NG SCH ×4 (12:00→23:35)
--- NOTE | 2016-03-03 13:33 | Pharmacy Progress Note ---
Pharmacy Antibiotic Prog Note Date of Service: Mar 03, 2016. Subjective: The patient is currently receiving: * Vancomycin 1900mg (~17mg/kg) IV Q 12 hours The patient is currently on day # 5 of 10 IV for treatment of complicated UTI Objective: Height (Feet): 5 Height (Inches): 2.00 Weight (Kilograms): 112.300 Levels: Item Value Date Time Vancomycin Level Trough 12.9 mcg/ml 03/03/16 1150 Lab Results (24hrs): Laboratory Tests Test 03/03/16 05:41 BUN/Creatinine Ratio 46.5 Blood Urea Nitrogen 25 mg/dl Creatinine 0.54 mg/dl White Blood Count 6.23 K/uL Red Blood Count 3.16 M/uL Hemoglobin 8.7 g/dL Hematocrit 28.2 % Mean Corpuscular Volume 89.2 fL Mean Corpuscular Hemoglobin 27.5 pg Mean Corpuscular Hemoglobin Concent 30.9 g/dl Platelet Count 269 K/uL Mean Platelet Volume 9.5 fL Neutrophils (%) (Auto) 72.1 % Lymphocytes (%) (Auto) 15.2 % Monocytes (%) (Auto) 12.2 % Eosinophils (%) (Auto) 0.0 % Basophils (%) (Auto) 0.0 % Neutrophils # (Auto) 4.49 K/uL Lymphocytes # (Auto) 0.95 K/uL Monocytes # (Auto) 0.76 K/uL Eosinophils # (Auto) 0.00 K/uL Basophils # (Auto) 0.00 K/uL Micro Results: 02/28/16: UA > 30 WBC, > 30 epis, + LE, - N 02/28/16: Urine Cx: ORDERED: CULTURE UR CATH Procedure Result Verified Site URINE CULTURE Final 03/01/16-817 Organism 1 COAG NEG STAPH NOT SAPROPHYTIC COLONY COUNT >100,000 CFU/ml SENS SENSITIVITY TO FOLLOW +MIX PLUS LOW COUNTS OTHER MIXED [place]HELSEA 1. COAG NEG STAPH NOT SAPROPHYTIC Target Route Dose RX AB Cost M.I.C. IQ ------ ----- ------ -- ------ -------- - ------ TRIMET/SULFA S <=0.5/ 9.5 * OXACILLIN R >2 VANCOMYCIN S 1 DAPTOMYCIN S <=0.5 NITROFURANTOIN S <=32 S = SENSITIVE I = INTERMEDIATE R = RESISTANT Assessment & Plan: VANCOMYCIN * Currently on Day 5 of 10 for treatment of complicated CoN Staph UTI * Other ABX choices not desirable (nitrofurantoin, SMX/TMP) due to risk of G6PD deficiency * Renal fxn continues to improve --> SCr down to 0.54 today; eCrCl > 100cc/min * Trough drawn today prior to 4th 1900mg Q 12 hr dose --> trough = 12.9 * Trough appropriate for treatment of UTI * WBC WNL, Tmax 37.7 last 24 hrs but still receiving intermittent APAP * Will continue current dose for now and recheck trough in 3-5 days if therapy to continue Pharmacy will continue to follow and will adjust dose/frequency as necessary. Thank you
--- NOTE | 2016-03-03 14:21 | Pharmacy Progress Note ---
Glycemic Control: Progress Nt Date of Service Mar 03, 2016. Scope Glycemic Pharmacist consulted by Dr Murillo on 02/22/16 for glycemic control and to write orders per [facility] inpatient glycemic control protocol. Objective Accuchecks BSG (last 24hrs): Test 03/02/16 18:01 03/02/16 20:54 03/03/16 00:14 03/03/16 05:38 Bedside Glucose 165 mg/dl (70-90) 149 mg/dl (70-90) 124 mg/dl (70-90) 162 mg/dl (70-90) Test 03/03/16 05:41 Random Glucose 147 mg/dl (70-99) Laboratory Data (last 24hrs) Test 03/03/16 05:41 Anion Gap 9.0 mmol/L BUN/Creatinine Ratio 46.5 Blood Urea Nitrogen 25 mg/dl Creatinine 0.54 mg/dl Potassium Level 3.8 mmol/L Sodium Level 147 mmol/L White Blood Count 6.23 K/uL Red Blood Count 3.16 M/uL Hemoglobin 8.7 g/dL Hematocrit 28.2 % Mean Corpuscular Volume 89.2 fL Mean Corpuscular Hemoglobin 27.5 pg Mean Corpuscular Hemoglobin Concent 30.9 g/dl Platelet Count 269 K/uL Mean Platelet Volume 9.5 fL Neutrophils (%) (Auto) 72.1 % Lymphocytes (%) (Auto) 15.2 % Monocytes (%) (Auto) 12.2 % Eosinophils (%) (Auto) 0.0 % Basophils (%) (Auto) 0.0 % Neutrophils # (Auto) 4.49 K/uL Lymphocytes # (Auto) 0.95 K/uL Monocytes # (Auto) 0.76 K/uL Eosinophils # (Auto) 0.00 K/uL Basophils # (Auto) 0.00 K/uL HbA1c: Test 02/23/16 05:32 Hemoglobin A1c 6.7 % (4.5-5.6) H Recent Pertinent Medications Outpatient Anti-diabetic Regimen: * Glimepiride 0.5mg PO Q AM * Metformin 1000mg PO BID * A1c = 6.9 % 04/02/15 The patient is currently receiving: * Basal insulin: Lantus 5 units SQ Q HS; hold 1/2 dose if BSG less than 120 * Correctional Insulin: Novolog Correction per scale Q 6 hrs Goal Range: Low 140 mg/dL - High 180 mg/dL Correction Factor: 20 mg/dL/unit * Prandial insulin: Novolog SQ Q 6 hrs to cover carbs in Impact TF's ( using CR of ~ 1:7) * Oral Agents: None currently Risk Factors for Insulin Resistance: * Steroids: Solu-Medrol 60mg IV Q 6 hours --> being reduced to 40mg IV Q 12 hours * Infection: receiving Vancomycin for fever; CoN staph UTI - complicated/cath assoc * Diet: tube feeds being restarted today, Impact to restart at 30cc/hr and advance per order to goal of 75cc/hr Assessment & Plan ASSESSMENT: 02/22/16 * Type 2 diabetic admitted w/ COPD exacerbation failing treatment w/ outpt abx and prednisone. * She is treated w/ 2 oral hypoglycemics - that are currently on hold; and should remain on hold as she is now receiving high dose IV corticosteroids. Will use SQ basal/bolus regimen to achieve glycemic targets. * She has been admitted in the past and received SQ Novolog (CF + CR) alone to control hyperglycemia while on IV steroids; she was not given basal insulin or her oral hypoglycemics. Her current fasting BSG is 202; so I am inclined to give a single small dose of Lantus this AM and reevaluate basal needs tomorrow AM. Perhaps she is more stressed this admission and may require some basal insulin. * The current Novolog CF and CR are reasonable, however the CR dose could be increased a little. * Most recent A1c is from 03/2015; will check w/ AM labs tomorrow to determine appropriateness of outpt regimen 02/29/16 * BSGs have ranged 177-232 over the last 24 hours * She has received 28 units of SQ insulin over the last 24 hrs * Tube feeds have been on hold due to increased residuals, lack of BM, decreased BS, and concern for malposition of feeding tube. A repeat KUB to be done today to confirm position before restarting feeds. Also to receive metoclopramide IV x 1 today to stim GI motility * Will change Novolog order to allow for greater flexibility with carb coverage of tube feeds. Will use a CR of 1:7 * Will need to monitor for falling BSGs as tube feeds are held with continued Lantus dosing. Pt is on ATC steroids and on mech vent, so likely needs some amount of basal insulin. There is a "half-dose" parameter should BSG dip too low. 03/01/16 * Glycemic control has improved over the last 24 hours, BSGs 124-188 * Tube feeds had been on hold for a period of time secondary to concern for aspiration of feeds and misplaced feeding tube. Correct placement of feeding tube has been confirmed and feedings have been resumed. * Feeds have been changed to Impact which contains more carbs and may lead to rising BSGs. I would still like to continue with the same CR however to cover the new feeds. * Steroid dose is being titrated down, however is still relatively high, would not expect much improved insulin sensitivity but will monitor 03/02/16 * BSGs 101-203 over the last 24 hours, most BSGs less than 180 * Stressors lessening: extubated, continuous tube feeds off, steroid dose reduced again --> insulin resistance will likely improve * Lantus dose held last evening. Fasting BSG elevated this AM during SBT, however down to 101 this afternoon. Will reduce Lantus dose as a precaution. * Will add CR to current Novolog order should pt pass swallow eval and have diet today 03/03/16 * BSGs at goal * Steroids are being tapered further today and likely decreased again tomorrow if clinically stable ---> suspect improved insulin sensitivity * Tube feeds being restarted, but still no BM, uncertain how well they will be tolerated -- bowel regimen adjusted today * Will stop basal insulin at this time given uncertain nutrition status over next 24 hrs and last BSG down to 91 * Will lessen prandial insulin dose as well. * Change prandial insulin from Novolog to Regular insulin as the p'kinetics are better to cover continuous tube feeds PLAN FOR INPATIENT GLYCEMIC CONTROL: * D/C Lantus at this time * D/C Novolog and begin Regular insulin stead for correction and prandial coverage Q 6 hrs * Continuing correction factor of 20 mg/dl/unit * Changing carb ratio to 1 unit per 9gm CHO consumed --> I have calculated carb content of Impact at various rates and added to Regular insulin SS order. Hold carb coverage if tube feeds are held. * Continue goal range of Low 140 mg/dL - High 180 mg/dL * Reevaluate insulin doses with each step down in steroid dose * Please note that the plan above was derived based on current level of insulin resistance and hospital stress. These recommendations are appropriate for inpatient admission only. Plan of care upon discharge will need to be reassessed to avoid potential outpatient hypo/hyperglycemia. Thank you.
[2016-03-03] MEDS ORDERED: LACTULOSE SYRUP 30 GM/45 ML UDP PO ONE (15:45)
--- NOTE | 2016-03-03 16:20 | DIAGNOSTIC IMAGING REPORT ---
BILATERAL LOWER EXTREMITY VENOUS DOPPLER HISTORY: Pain. Edema. reoccur ing fevers, bedbound >1wk COMPARISON STUDY: None. FINDINGS: There is normal compressibility, flow, and augmentation within the bilateral lower extremity deep venous systems. IMPRESSION: No DVT within the right or left lower extremity. Electronically signed by: Fuentes Lewis M.D. 03/03/2016 4:18 PM Dictated Date/Time: 03/03/2016 4:17 PM
[2016-03-03] MEDS: METOCLOPRAMIDE HCL 10 MG/10 ML UDC NG SCH ×2 (17:01→23:35)
[2016-03-03] MEDS: INSULIN HUMAN REGULAR SC SCH ×2 (17:04→23:59)
--- NOTE | 2016-03-03 19:05 | Critical Care Progress Note ---
Critical Care Progress Note Date of Service Mar 03, 2016. Attending Dr. Pasquale Tejada This is a 60-year-old -[place] female with multiple admissions for asthma exacerbation. She was admitted on 02/22/16. Throughout the day she appeared to worsen and was transferred to intensive care unit. She then required endotracheal intubation and mechanical ventilation on 02/24/16. She tolerated 30 hours of CPAP but then appeared to aspirate tube feeds and was put back on assist control 03/01/16. She was successfully extubated to BiPAP on . Most of the difficulty with extubation was subsequent to neurological myopathy. Today, she is alert and oriented but continues with profound weakness. She is unable to lift her feet hands or arms off the bed. She is able to flex both hands to 90 and has equal hand strength sufficient to allow me to lift her shoulders off the bed. She has no other neurological signs or symptoms of acute CVA. She denies headache. She denies shortness of breath. She denies chest pain. She has no peripheral pain. She has no back pain. She does have intermittent fever but denies sweats or rigors. She is very weak and speaks in short sentences but appears to be oriented. She has no other acute complaints at this time Objective GENERAL : No acute distress. Appears lethargic EYES: No icterus, gaze conjugate. Pupils equal and reactive NOSE: No evidence of epistaxis. MOUTH: No lesions or candidiasis. Mucosa moist NECK: Supple. No tenderness with palpation LUNGS: Decreased breath sounds bilaterally. Faint expiratory wheezes in the upper pool bilaterally. Fine crackles in the bilateral bases HEART: Regular, rate controlled. NSR on monitor ABDOMEN: Soft, NT, ND, BS Present EXTREMITIES: No LE edema, pedal pulses intact. NEURO: Awake and alert. Profound weakness of upper and lower extremities bilaterally. Able to squeeze both hands with equal strength. Unable to lift arms or legs off the bed. Able to dorsiflex bilateral feet. Able to flex bilateral wrists at 90 with both hands. No evidence of cogwheeling or ratcheting. No facial droop. Deep tendon reflexes unable to be assessed. 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 and is gaining some strength but is still significantly deficit Continue to follow underlying labs and fluid status Follow clinically If no improvement consider consultation with neurology (2) Asthma exacerbation Pulmonary consulted - last note from 02/27/16; will ask pulmonary to reengage now the patient is extubated Wean steroids as tolerated Patient extubated 03/02/16 Some hypoxia today; FiO2 on BiPAP increase to 50% Duo neb every 4 hours Symbicort 160/4.5 - 2 puffs twice a day Methylprednisolone 40 mg every 12 hours IV - decreased to 40 mg daily tomorrow (3) COPD exacerbation Previous history of tobacco abuse. Quit several years ago Continue to treat treat for asthma exacerbation with antibiotics, steroids, bronchodilators as listed above Severe emphysema on chest x-ray Maintain SPO2 between 88 and 92% Supplemental O2 judiciously as to not hyper oxygenate (4) Diabetes mellitus Novolin R sliding scale Currently receiving tube feeds Pharmacy consult to for glycemic management Hemoglobin A1c 6.7 Continue gabapentin 100 mg 3 times a day for peripheral neuropathy (5) Reflux esophagitis Lansoprazole 30 mg twice a day (6) Depression Resume amitriptyline once patient recovers from acute phase of illness (7) Hypertension Hydralazine 10 mg every 6 hours as needed Metoprolol tartrate 5 mg IV every 6 hours as needed (8) Restless leg syndrome Cyclobenzaprine held secondary to ICU myopathy Continue to monitor clinically (9) Electrolyte imbalance Hypernatremia - Continue free water flushes and strict I's and O's Patient currently receiving impact tube feeds Phosphorus 1.2 - 21 mmol of potassium phosphate ordered Potassium 3.8 - 21 mmol of potassium phosphate ordered (30.8 mEq K+) Magnesium 2.6 Follow serial labs and replete as necessary RENAL BUN 25, creatinine 0.54 Continue strict I's and O's Follow serial labs HEME HgB 8.7, 9.4, 9.6, 8.7 Follow serial labs No acute bleeding IV ACCESS PICC line in place IV team managing DVT PROPHYLAXIS Enoxaparin CCT: 40 minutes Thank you for including us in the care of this patient. Please refer to Dr. Giordano's addendum for further recommendations. Consults & Procedures Consultants: Pulmonary - Dr. Younger Psychiatry - Dr. Sorto Procedures: Echocardiogram 02/23/2016 Endotracheal intubation 02/24/2016 Extubation 03/02/2016 PICC line - 02/24/2016; 5.5 Fr Dual lumen power PICC at 41cm Data Medications: Current Inpatient Medications Medications (Trade) Dose Ordered Sig/Allison Route Start Time Stop Time Status Last Admin Dose Admin Ondansetron HCl (Zofran Inj) 4 mg Q6H PRN IV 02/22/16 02:15 03/23/16 02:14 Glucose (Glucose 40% Gel) 15-30 GRAMS 15 GRAMS... UD PRN PO 02/22/16 02:15 03/23/16 02:14 Glucose (Glucose Chew Tab) 4-8 Tablets 4 Tabl... UD PRN PO 02/22/16 02:15 03/23/16 02:14 Dextrose (Dextrose 50% 50ML Syringe) 25-50ML OF 50% DW IV FOR... UD PRN IV 02/22/16 02:15 03/23/16 02:14 Glucagon (Glucagon Inj) 1 mg UD PRN SQ 02/22/16 02:15 03/23/16 02:14 Miscellaneous Information (Consult Glycemic Management Pharmacy) 1 ea UD PRN N/A 02/22/16 02:45 03/23/16 02:44 Atorvastatin Calcium (Lipitor Tab) 10 mg QAM PO 02/22/16 09:00 03/23/16 08:59 03/03/16 08:32 10 MG Miscellaneous Information (Order Awaiting Action) 1 ea QS N/A 02/22/16 05:30 03/23/16 05:29 Budesonide/ Formoterol Fumarate (Symbicort 160/ 4.5 Inh) 2 puffs BID INH 02/22/16 21:00 03/23/16 20:59 03/03/16 08:26 2 PUFFS Enoxaparin Sodium (Lovenox Inj) 40 mg QAM SQ 02/23/16 09:00 03/24/16 08:59 03/03/16 08:35 40 MG Chlorhexidine Gluconate (Peridex Oral Soln) 15 ml BID MT 02/24/16 21:00 03/25/16 20:59 03/03/16 08:27 15 ML Albuterol (Ventolin Hfa Inhaler) 4 puffs Q2R PRN INH 02/25/16 10:45 03/26/16 10:44 Aspirin (Aspirin Chew) 81 mg QAM PO 02/27/16 09:00 03/28/16 08:59 03/03/16 08:31 81 MG Artificial Tears (Artificial Tears) 2 drops Q4H OP 02/27/16 16:00 03/28/16 15:59 03/03/16 16:00 2 DROPS Metoprolol Tartrate (Lopressor Iv) 5 mg Q6 PRN IV 02/27/16 18:00 03/28/16 17:59 03/02/16 21:05 5 MG Pramipexole Dihydrochloride (miraPEX TAB) 0.25 mg BID PO 02/28/16 09:00 03/29/16 08:59 03/03/16 08:32 0.25 MG Docusate Sodium (coLACE SYRUP) 100 mg BID PO 02/28/16 09:00 03/29/16 08:59 03/03/16 08:31 100 MG Labetalol HCl (Normodyne IV) 20 mg Q1H PRN IV 02/28/16 10:00 03/29/16 09:59 03/01/16 11:47 20 MG Vancomycin HCl (Consult) 1 ea UD PRN N/A 02/28/16 12:00 03/29/16 11:59 Gabapentin (Neurontin) 100 mg TID NG 02/29/16 14:00 03/30/16 13:59 03/03/16 12:53 100 MG Hydralazine HCl (HydrALAZINE INJ) 10 mg Q6H PRN IV. 02/29/16 12:45 03/30/16 12:44 Lansoprazole (Prevacid Solutab) 30 mg BID OG 03/01/16 09:00 03/31/16 08:59 03/03/16 08:31 30 MG Acetaminophen (Tylenol Soln) 650 mg Q4H PRN NG 02/29/16 21:15 03/30/16 21:14 03/03/16 03:59 650 MG Enteral Nutritional Formula 1800 ml 1,800 ml UD OG 03/01/16 11:30 03/31/16 11:29 Future hold Parenteral Electrolyte Solution (Normosol R) 1,000 ml @ 75 mls/hr [id number] IV 03/02/16 09:15 04/01/16 09:14 03/03/16 11:55 75 MLS/HR Heparin Sodium (Porcine) (Heparin 10 Unit/ ml 5 ml Flush) 5 ml PRN PRN FLUSH 03/02/16 10:00 04/01/16 09:59 Albuterol/ Ipratropium 3 ml 3 ml Q4R INH 03/02/16 16:00 04/01/16 15:59 03/03/16 15:19 3 ML Methylprednisolone Sodium Succinate/ Syringe (Solu-Medrol IV/ Syringe) 0.64 ml @ 1.5 mls/min Q12H IV 03/03/16 18:00 04/02/16 17:59 03/03/16 17:01 1.5 MLS/MIN Sterile Water (Tube Feeding Water Flush) 1 ea Q4 NG 03/03/16 12:00 04/02/16 11:59 03/03/16 16:00 1 EA Metoclopramide HCl (Reglan Syrup) 10 mg Q8@0000,0800,1600 NG 03/03/16 16:00 03/04/16 08:01 03/03/16 17:01 10 MG Insulin Human Regular SLIDING SCALE If C... Q6 SC 03/03/16 18:00 04/02/16 17:59 Vancomycin HCl/ Sodium Chloride (Vancomycin Inj/ Nss 500ml) 528 ml @ 200 mls/hr Q8H IV 03/04/16 00:00 03/08/16 13:00 Naloxone HCl (Narcan Inj) 1 mg TID NG 03/03/16 21:00 04/02/16 09:59 I & O: 24-Hour Column 03/03/16 08:00 Intake Total 2365 ml Output Total 1500 ml Balance 865 ml Vital Signs: Date Time Temp Pulse Resp B/P Pulse Ox O2 Delivery O2 Flow Rate FiO2 03/03/16 18:00 118 18 151/73 97 Nasal Cannula 2.0 03/03/16 16:00 115 20 129/63 97 Nasal Cannula 2.0 03/03/16 16:00 97 Nasal Cannula 2.0 03/03/16 15:21 112 16 96 Nasal Cannula 2.0 03/03/16 14:00 121 22 97/62 99 Nasal Cannula 2.0 03/03/16 12:00 117 16 158/82 89 Nasal Cannula 2.0 03/03/16 12:00 89 Nasal Cannula 2.0 03/03/16 11:20 115 18 95 Nasal Cannula 2.0 03/03/16 11:00 104 20 109/59 92 Nasal Cannula 2.0 03/03/16 10:00 108 97 03/03/16 10:00 106 20 131/62 98 Nasal Cannula 2.0 03/03/16 09:00 108 20 136/72 90 Room Air 03/03/16 08:03 108 18 98 Nasal Cannula 2.0 03/03/16 08:00 92 2.0 03/03/16 08:00 36.8 105 20 128/66 92 Nasal Cannula 2.0 03/03/16 05:59 110 23 122/72 95 03/03/16 05:29 112 17 130/68 94 03/03/16 04:59 107 15 131/67 97 03/03/16 04:29 109 15 121/70 97 03/03/16 04:09 114 16 97 Nasal Cannula 2.0 03/03/16 04:00 Nasal Cannula 2.0 03/03/16 03:59 37.5 110 17 135/70 98 Nasal Cannula 2.0 Humidified Oxygen 03/03/16 03:29 109 19 130/69 97 03/03/16 02:59 104 15 134/68 98 03/03/16 02:29 103 15 144/63 97 03/03/16 01:59 108 19 150/71 97 03/03/16 01:29 109 137/64 97 03/03/16 00:59 100 117/63 97 03/03/16 00:29 98 126/58 97 03/03/16 00:01 Nasal Cannula 2.0 03/02/16 23:59 37.0 100 125/66 97 Nasal Cannula 2.0 Humidified Oxygen 03/02/16 23:43 101 18 97 Nasal Cannula 3.0 03/02/16 23:29 101 140/67 98 03/02/16 22:59 100 18 124/68 98 Nasal Cannula 3.0 Humidified Oxygen 03/02/16 22:29 112 104/70 98 03/02/16 21:59 106 101/69 97 Nasal Cannula 3.0 Humidified Oxygen 03/02/16 21:05 117 133/76 03/02/16 20:59 113 127/68 97 Nasal Cannula 3.0 Humidified Oxygen 03/02/16 20:30 113 18 96 Nasal Cannula 3.0 03/02/16 20:00 Nasal Cannula 3.0 03/02/16 19:59 37.7 111 139/73 96 Nasal Cannula 3.0 Humidified Oxygen 03/02/16 19:29 112 151/80 96 Nasal Cannula 3.0 Humidified Oxygen Laboratory Results: Last 24 Hours Test 03/02/16 20:54 03/03/16 00:14 03/03/16 05:38 03/03/16 05:41 Bedside Glucose 149 mg/dl 124 mg/dl 162 mg/dl White Blood Count 6.23 K/uL Red Blood Count 3.16 M/uL Hemoglobin 8.7 g/dL Hematocrit 28.2 % Mean Corpuscular Volume 89.2 fL Mean Corpuscular Hemoglobin 27.5 pg Mean Corpuscular Hemoglobin Concent 30.9 g/dl Platelet Count 269 K/uL Mean Platelet Volume 9.5 fL Neutrophils (%) (Auto) 72.1 % Lymphocytes (%) (Auto) 15.2 % Monocytes (%) (Auto) 12.2 % Eosinophils (%) (Auto) 0.0 % Basophils (%) (Auto) 0.0 % Neutrophils # (Auto) 4.49 K/uL Lymphocytes # (Auto) 0.95 K/uL Monocytes # (Auto) 0.76 K/uL Eosinophils # (Auto) 0.00 K/uL Basophils # (Auto) 0.00 K/uL RDW Standard Deviation 46.5 fL RDW Coefficient of Variation 14.3 % Immature Granulocyte % (Auto) 0.5 % Immature Granulocyte # (Auto) 0.03 K/uL Red Blood Cell Morphology Unremarkable Sodium Level 147 mmol/L Potassium Level 3.8 mmol/L Chloride Level 109 mmol/L Carbon Dioxide Level 29 mmol/L Anion Gap 9.0 mmol/L Blood Urea Nitrogen 25 mg/dl Creatinine 0.54 mg/dl Est Creatinine Clear Calc Drug Dose 129.5 ml/min Estimated GFR () 118.0 Estimated GFR (Non- 101.8 BUN/Creatinine Ratio 46.5 Random Glucose 147 mg/dl Calcium Level 7.9 mg/dl Phosphorus Level 1.2 mg/dl Magnesium Level 2.6 mg/dl Test 03/03/16 11:50 03/03/16 16:07 Vancomycin Level Trough 12.9 mcg/ml Bedside Glucose 125 mg/dl I have personally evaluated and examined this patient. I agree with assessment and plan of Tom Toledo PA-C. Patient improving, desires to attempt eating today, continue tube feeds at trickle, attempting to stimulate bowels. Hope to drown grade soon
[2016-03-03] MEDS ORDERED: NALOXONE HCL INJ 0.4 MG/1 ML VIAL/CARP NG SCH (21:00)
[2016-03-03] MEDS: METOPROLOL TARTRATE 1 MG/ML VIAL IV PRN (21:17)
[2016-03-03] MEDS: VANCOMYCIN INJ 1,400 MG in SODIUM CHLORIDE 0.9% 500ML 500 ML IV SCH (23:35)
[2016-03-04] VITALS (23 sets, daily range): BP systolic 105–153; BP diastolic 57–86; PULSE 101–118; TEMP 36.4–37.4; O2SAT 94–100
[2016-03-04] MEDS: ALBUT/IPRATROP 3MG/0.5MG NEB 3 ML VIAL INH SCH ×6 (04:17→23:12)
[2016-03-04] MEDS: FEEDING WATER FLUSH NG SCH ×5 (04:23→20:16)
[2016-03-04] MEDS: ARTIFICIAL TEARS OP SOLN OP SCH ×10 (04:24→20:16)
[2016-03-04] MEDS: INSULIN HUMAN REGULAR SC SCH ×3 (05:42→16:45)
[2016-03-04] MEDS: METHYLPREDNISOLONE IV 40 MG in SYRINGE 0 ML IV SCH (05:43)
[2016-03-04 06:43] LABS: MAGNESIUM 2.4 mg/dl (1.8-2.4); PHOSPHORUS 1.3 mg/dl (2.5-4.9)
[2016-03-04] MEDS: VANCOMYCIN INJ 1,400 MG in SODIUM CHLORIDE 0.9% 500ML 500 ML IV SCH (07:45)
[2016-03-04] MEDS: METOCLOPRAMIDE HCL 10 MG/10 ML UDC NG SCH (07:45)
[2016-03-04] MEDS: ASPIRIN 81 MG CHEW PO SCH (07:46)
[2016-03-04] MEDS: PRAMIPEXOLE DIHYDROCHLORIDE 0.5 MG TAB PO SCH ×2 (07:46→21:35)
[2016-03-04] MEDS: DOCUSATE SODIUM 100 MG/10 ML UDC PO SCH (07:46)
[2016-03-04] MEDS: LANSOPRAZOLE SOLUTAB 30 MG OG SCH ×2 (07:46→21:34)
[2016-03-04] MEDS: ATORVASTATIN 10 MG TAB PO SCH (07:46)
[2016-03-04] MEDS: CHLORHEXIDINE GLUCONATE 0.12% 480 ML MT SCH ×2 (07:47→21:37)
[2016-03-04] MEDS: BUDESONIDE/FORMOTEROL FUMARATE 160/4.5 60 PUFFS/INHALER INH SCH ×2 (07:47→21:35)
[2016-03-04] MEDS: GABAPENTIN 250 MG/5 ML 470 ML BTL NG SCH ×3 (07:49→21:37)
[2016-03-04] MEDS: ENOXAPARIN 40 MG/0.4 ML SYR SQ SCH ×2 (07:50→21:36)
--- NOTE | 2016-03-04 09:09 | Critical Care Progress Note ---
Critical Care Progress Note Date of Service Mar 04, 2016. Attending Dr. Giordano Subjective Ms. Kaminski is a 60yo woman who present for COPD/Asthma exacerbation that eventually required intubation on 02/23, with extubation on 03/02. Today she is on 2L nasal cannula when I entered the room with adequate saturations and resting comfortably. She had an uneventful night. Pt continues to be significantly weak. While she is able to squeeze her hands and move her feet slightly, her movement is limited and she is unable to feed herself and tiring out while eating. She did state that she felt her weakness is improving. She continues with minimal cough, however, she states that she has now been able to cough up sputum but does not know what it looked like. She has been passing gas and did have 2 bowel movements since last evening. She has been afebrile since 02/27, but did receive Tylenol overnight at 7 with a temp of 37.5. She denied fever, chills, shortness of breath, chest pain, palpitations, nausea , abd pain, diarrhea, dysuria, increasing numbness beyond her known neuropathy, or tingling. Objective GENERAL : No acute distress. EYES: No icterus, gaze conjugate.PERRL, EOMI, watery eyes MOUTH: No lesions or candidiasis. Mucosa moist NECK: Supple. No tenderness with palpation LUNGS: Decreased coarse breath sounds bilaterally with minimal wheezing noted to left field. HEART: Sinus tach, distant heart sounds, No murmur, rubs, or gallops noted. ABDOMEN: Obese abdomen, Soft, NT, ND, BS Present EXTREMITIES: No LE edema, pedal pulses intact. NEURO: A& O x3, significant weakness throughout, equal hand clinical fellow and ankle flexion to resistance bilaterally. Pt unable to lift upper extremities off of bed. Able to dorsiflex/plantar flex bilateral feet. No facial droop. Assessment & Plan (1) Intensive care (ICU) myopathy Improvement noted today, still significantly weak Continue PT/OT Reducing steroids; as this could be a steroid induced myopathy as well Hold statin secondary to propensity for myopathy, will need to be resumed at a later date. Follow clinically (2) COPD exacerbation Continue to treat treat for asthma exacerbation with steroids, bronchodilators as listed above CXR demonstrates severe Emphysema Maintain SPO2 between 88 and 92% as to not hyper oxygenate (3) Asthma exacerbation Taper Steroids from Methylprednisolone 40mg IV q 12 to Prednisone 20mg PO BID Patient extubated 03/02/16 Continue Resp regimen * Duo neb every 4 hours * Symbicort 160/4.5 - 2 puffs twice a day (4) Complicated UTI (urinary tract infection) Previous [place], now d/c'd Pt denies symptoms Vancomycin 1400 q 8hrs Day 08/06 * Pharmacy to concentrate Vanco to limit fluid intake (5) Electrolyte imbalance Hypophosphatemia Sodium Phosphate 30mmol IV Hypernatremia - Resolved today Na 142, K 3.9, Cl 106 HCO3 28 Phos 1.3, Mg 2.4 Continue free water flushes D/C Normosol fluids Follow serial labs and replete as necessary (6) Diabetes mellitus Novolin R sliding scale Currently on tube feeds, have cut in half today. Pt ordered diet but doesn't have appetite Pharmacy consult to for glycemic management (7) Reflux esophagitis Continue Prevacid 30mg BID (8) Depression Resume amitriptyline once patient recovers from acute phase of illness (9) Hypertension Normotensive today: SBP 123 Continue as needed * Hydralazine 10 mg q 6hrs * Metoprolol tartrate 5 mg IV q 6hrs (10) Restless leg syndrome Cyclobenzaprine held secondary to ICU myopathy Continue to monitor clinically RENAL BUN 25, creatinine 0.54 Continue strict I's and O's Follow serial labs HEME H&H: 8.7 & 27.3; Plts 272 Follow serial labs No acute bleeding IV ACCESS R double lumen PICC line in place IV team managing DVT PROPHYLAXIS Increase Lovenox 40mg BID CCT: 0 minutes; Level 3 inpatient Thank you for including us in the care of this patient. Please refer to Dr. Giordano's addendum for further recommendations. I have personally evaluated and examined this patient. I agree with assessment and plan of Tiny Darden PA-C. Increased lovenox dosing given BMI and immobility from myopathy Consults & Procedures Consultants: Pulmonary - Dr. Younger Psychiatry - Dr. Sorto Procedures: Echocardiogram 02/23/2016 Endotracheal intubation 02/24/2016 Intubated: 02/24/16 Extubation 03/02/2016 PICC line - 02/24/2016; 5.5 Fr Dual lumen power PICC at 41cm Data Medications: Current Inpatient Medications Medications (Trade) Dose Ordered Sig/Allison Route Start Time Stop Time Status Last Admin Dose Admin Ondansetron HCl (Zofran Inj) 4 mg Q6H PRN IV 02/22/16 02:15 03/23/16 02:14 Glucose (Glucose 40% Gel) 15-30 GRAMS 15 GRAMS... UD PRN PO 02/22/16 02:15 03/23/16 02:14 Glucose (Glucose Chew Tab) 4-8 Tablets 4 Tabl... UD PRN PO 02/22/16 02:15 03/23/16 02:14 Dextrose (Dextrose 50% 50ML Syringe) 25-50ML OF 50% DW IV FOR... UD PRN IV 02/22/16 02:15 03/23/16 02:14 Glucagon (Glucagon Inj) 1 mg UD PRN SQ 02/22/16 02:15 03/23/16 02:14 Miscellaneous Information (Consult Glycemic Management Pharmacy) 1 ea UD PRN N/A 02/22/16 02:45 03/23/16 02:44 Atorvastatin Calcium (Lipitor Tab) 10 mg QAM PO 02/22/16 09:00 03/23/16 08:59 03/04/16 07:46 10 MG Miscellaneous Information (Order Awaiting Action) 1 ea QS N/A 02/22/16 05:30 03/23/16 05:29 Budesonide/ Formoterol Fumarate (Symbicort 160/ 4.5 Inh) 2 puffs BID INH 02/22/16 21:00 03/23/16 20:59 03/04/16 07:47 2 PUFFS Enoxaparin Sodium (Lovenox Inj) 40 mg QAM SQ 02/23/16 09:00 03/24/16 08:59 03/04/16 07:50 40 MG Chlorhexidine Gluconate (Peridex Oral Soln) 15 ml BID MT 02/24/16 21:00 03/25/16 20:59 03/04/16 07:47 15 ML Albuterol (Ventolin Hfa Inhaler) 4 puffs Q2R PRN INH 02/25/16 10:45 03/26/16 10:44 Aspirin (Aspirin Chew) 81 mg QAM PO 02/27/16 09:00 03/28/16 08:59 03/04/16 07:46 81 MG Artificial Tears (Artificial Tears) 2 drops Q4H OP 12/31/16 16:00 03/28/16 15:59 03/04/16 08:22 2 DROPS Metoprolol Tartrate (Lopressor Iv) 5 mg Q6 PRN IV 02/27/16 18:00 03/28/16 17:59 03/03/16 21:17 5 MG Pramipexole Dihydrochloride (miraPEX TAB) 0.25 mg BID PO 02/28/16 09:00 03/29/16 08:59 03/04/16 07:46 0.25 MG Docusate Sodium (coLACE SYRUP) 100 mg BID PO 02/28/16 09:00 03/29/16 08:59 03/04/16 07:46 100 MG Labetalol HCl (Normodyne IV) 20 mg Q1H PRN IV 02/28/16 10:00 03/29/16 09:59 03/01/16 11:47 20 MG Vancomycin HCl (Consult) 1 ea UD PRN N/A 02/28/16 12:00 03/29/16 11:59 Gabapentin (Neurontin) 100 mg TID NG 02/29/16 14:00 03/30/16 13:59 03/04/16 07:49 100 MG Hydralazine HCl (HydrALAZINE INJ) 10 mg Q6H PRN IV. 02/29/16 12:45 03/30/16 12:44 Lansoprazole (Prevacid Solutab) 30 mg BID OG 03/01/16 09:00 03/31/16 08:59 03/04/16 07:46 30 MG Acetaminophen (Tylenol Soln) 650 mg Q4H PRN NG 02/29/16 21:15 03/30/16 21:14 03/03/16 21:16 650 MG Enteral Nutritional Formula 1800 ml 1,800 ml UD OG 03/01/16 11:30 03/31/16 11:29 Future hold Parenteral Electrolyte Solution (Normosol R) 1,000 ml @ 75 mls/hr [id number] IV 03/02/16 09:15 04/01/16 09:14 03/03/16 21:40 75 MLS/HR Heparin Sodium (Porcine) (Heparin 10 Unit/ ml 5 ml Flush) 5 ml PRN PRN FLUSH 03/02/16 10:00 04/01/16 09:59 Albuterol/ Ipratropium 3 ml 3 ml Q4R INH 03/02/16 16:00 04/01/16 15:59 03/04/16 07:13 3 ML Methylprednisolone Sodium Succinate/ Syringe (Solu-Medrol IV/ Syringe) 0.64 ml @ 1.5 mls/min Q12H IV 03/03/16 18:00 04/02/16 17:59 03/04/16 05:43 1.5 MLS/MIN Sterile Water (Tube Feeding Water Flush) 1 ea Q4 NG 03/03/16 12:00 04/02/16 11:59 03/04/16 07:45 1 EA Insulin Human Regular SLIDING SCALE If C... Q6 SC 03/03/16 18:00 04/02/16 17:59 03/04/16 05:42 4 UNITS Vancomycin HCl/ Sodium Chloride (Vancomycin Inj/ Nss 500ml) 528 ml @ 200 mls/hr Q8H IV 03/04/16 00:00 03/08/16 13:00 03/04/16 07:45 200 MLS/HR I & O: 24-Hour Column 03/04/16 08:00 Intake Total 4079 ml Output Total 200 ml Balance 3879 ml Vital Signs: Date Time Temp Pulse Resp B/P Pulse Ox O2 Delivery O2 Flow Rate FiO2 03/04/16 08:00 96 Nasal Cannula 2.0 03/04/16 08:00 37.1 118 20 111/68 96 Nasal Cannula 2.0 03/04/16 07:13 106 18 100 Nasal Cannula 2.0 03/04/16 05:00 109 22 123/64 98 Nasal Cannula 2.0 03/04/16 04:17 111 18 98 Nasal Cannula 2.0 03/04/16 04:00 37.2 117 22 138/65 95 Nasal Cannula 2.0 03/04/16 04:00 Nasal Cannula 2.0 03/04/16 03:00 108 19 123/61 94 Nasal Cannula 2.0 03/04/16 02:30 108 18 118/64 96 Nasal Cannula 2.0 03/04/16 02:00 104 17 117/60 96 Nasal Cannula 2.0 03/04/16 01:30 112 19 129/84 98 Nasal Cannula 2.0 03/04/16 01:00 109 20 111/60 94 Nasal Cannula 2.0 03/04/16 00:30 103 20 105/57 95 Nasal Cannula 2.0 03/04/16 00:01 37.4 103 19 118/57 96 Nasal Cannula 2.0 03/04/16 00:01 Nasal Cannula 2.0 03/03/16 23:45 108 18 98 Nasal Cannula 2.0 03/03/16 23:30 104 18 110/67 94 Nasal Cannula 2.0 03/03/16 23:00 110 18 117/61 97 Nasal Cannula 2.0 03/03/16 22:30 103 22 121/58 97 Nasal Cannula 2.0 03/03/16 22:16 111 18 113/69 97 Nasal Cannula 2.0 03/03/16 22:00 106 18 97 Nasal Cannula 2.0 03/03/16 21:30 100 18 151/128 95 Nasal Cannula 2.0 03/03/16 21:17 133 145/86 03/03/16 21:00 122 18 145/86 99 Nasal Cannula 2.0 03/03/16 20:51 120 16 97 Nasal Cannula 2.0 03/03/16 20:30 117 20 125/67 93 Nasal Cannula 2.0 03/03/16 20:00 Nasal Cannula 2.0 03/03/16 20:00 37.5 115 20 121/65 93 Nasal Cannula 2.0 03/03/16 19:30 122 21 131/90 94 Nasal Cannula 2.0 03/03/16 19:00 122 18 124/73 93 Nasal Cannula 2.0 03/03/16 18:00 118 18 151/73 97 Nasal Cannula 2.0 03/03/16 16:00 115 20 129/63 97 Nasal Cannula 2.0 03/03/16 16:00 97 Nasal Cannula 2.0 03/03/16 15:21 112 16 96 Nasal Cannula 2.0 03/03/16 14:00 121 22 97/62 99 Nasal Cannula 2.0 03/03/16 12:00 117 16 158/82 89 Nasal Cannula 2.0 03/03/16 12:00 89 Nasal Cannula 2.0 03/03/16 11:20 115 18 95 Nasal Cannula 2.0 03/03/16 11:00 104 20 109/59 92 Nasal Cannula 2.0 03/03/16 10:00 108 97 1/5/17 10:00 106 20 131/62 98 Nasal Cannula 2.0 Laboratory Results: Last 24 Hours Test 03/03/16 11:12 03/03/16 11:50 03/03/16 16:07 03/03/16 23:55 Bedside Glucose 92 mg/dl 125 mg/dl 149 mg/dl Vancomycin Level Trough 12.9 mcg/ml Test 03/04/16 05:10 03/04/16 05:38 03/04/16 08:30 Phosphorus Level 1.3 mg/dl Magnesium Level 2.4 mg/dl Bedside Glucose 141 mg/dl White Blood Count 5.75 K/uL Red Blood Count 2.47 M/uL Hemoglobin 6.9 g/dL Hematocrit 22.2 % Mean Corpuscular Volume 89.9 fL Mean Corpuscular Hemoglobin 27.9 pg Mean Corpuscular Hemoglobin Concent 31.1 g/dl Platelet Count 203 K/uL Mean Platelet Volume 9.3 fL RDW Standard Deviation 46.8 fL RDW Coefficient of Variation 14.5 %
[2016-03-04 09:32] LABS: COMPLETE YES
[2016-03-04 10:10] LABS: HEMATOCRIT 27.3 % (37-47)
[2016-03-04] MEDS: NORMOSOL R 1,000 ML IV SCH (10:28)
[2016-03-04 10:41] LABS: BASO % 0.1 %; BASO ABS # 0.01 K/uL (0-0.2); COMPLETE YES; IG% 0.9 %; LYMPH % 11.7 %; MEAN CORPUSCULAR HGB CONC 31.9 g/dl (32-36); MEAN PLATELET VOLUME 9.9 fL (7.4-10.4); MONO % 4.8 %; NEUT % 82.5 %; PLATELET COUNT 272 K/uL (130-400); RED BLOOD COUNT 3.11 M/uL (4.2-5.4); WHITE BLOOD COUNT 7.67 K/uL (4.8-10.8)
[2016-03-04 10:42] LABS: MEAN CELL VOLUME 87.8 fL (80-100)
[2016-03-04] MEDS ORDERED: SODIUM PHOSPHATE 3 MMOL/1 ML INFUSION IV STA (11:19)
--- NOTE | 2016-03-04 11:20 | Progress Note ---
Internal Med Progress Note Date of Service: Mar 04, 2016. Provider Documentation: SUBJECTIVE: s/p extubated alert and oriented afebrile denies sob no chest pain no nausea OBJECTIVE: Vital Signs-as noted below Exam: General-alert and awake Neck-no neck masses Lungs-cta b/l , no wheezing or crackles Heart-s1 and s2 heard regular, no murmurs Abdomen-soft bowel sounds present no distension Extremities-no edema present no erythema Neuro- alert and oriented moves extremities obeys simple commands Lab data as noted below. ASSESSMENT & PLAN: 60 year old female with history of COPD, Asthma DM, HTN other problems noted below presenting with increasing shortness of breath. Copd/Asthma exacerbation initially required bipap and later intubated currently on iv solumedrol, and inhalers s/p extubation 03/02/16 on nasal canula taper solumedrol to bid still tachycardic bipap prn transferring to pcu DM holding glimepiride and metformin on iss will closely monitor while on steroids 92/145/149/141 Depression/Anxiety continue home meds appreciate psychiatry inputs Nutrition to continue tube feeds for now GERD Zantac added ppi Restless leg syndrome on Requip HTN home losartan.on hold on iv lopressor and iv hydralazine prn will monitor DVT PROPHYLAXIS scds. Lovenox DISPOSITION transfer to tele pt/ot Vital Signs: Date Time Temp Pulse Resp B/P Pulse Ox O2 Delivery O2 Flow Rate FiO2 03/04/16 10:00 103 15 139/83 100 Nasal Cannula 2.0 03/04/16 08:00 96 Nasal Cannula 2.0 03/04/16 08:00 37.1 118 20 111/68 96 Nasal Cannula 2.0 03/04/16 07:13 106 18 100 Nasal Cannula 2.0 03/04/16 05:00 109 22 123/64 98 Nasal Cannula 2.0 03/04/16 04:17 111 18 98 Nasal Cannula 2.0 03/04/16 04:00 37.2 117 22 138/65 95 Nasal Cannula 2.0 03/04/16 04:00 Nasal Cannula 2.0 03/04/16 03:00 108 19 123/61 94 Nasal Cannula 2.0 03/04/16 02:30 108 18 118/64 96 Nasal Cannula 2.0 03/04/16 02:00 104 17 117/60 96 Nasal Cannula 2.0 03/04/16 01:30 112 19 129/84 98 Nasal Cannula 2.0 03/04/16 01:00 109 20 111/60 94 Nasal Cannula 2.0 03/04/16 00:30 103 20 105/57 95 Nasal Cannula 2.0 03/04/16 00:01 37.4 103 19 118/57 96 Nasal Cannula 2.0 03/04/16 00:01 Nasal Cannula 2.0 03/03/16 23:45 108 18 98 Nasal Cannula 2.0 03/03/16 23:30 104 18 110/67 94 Nasal Cannula 2.0 03/03/16 23:00 110 18 117/61 97 Nasal Cannula 2.0 03/03/16 22:30 103 22 121/58 97 Nasal Cannula 2.0 03/03/16 22:16 111 18 113/69 97 Nasal Cannula 2.0 03/03/16 22:00 106 18 97 Nasal Cannula 2.0 03/03/16 21:30 100 18 151/128 95 Nasal Cannula 2.0 03/03/16 21:17 133 145/86 03/03/16 21:00 122 18 145/86 99 Nasal Cannula 2.0 03/03/16 20:51 120 16 97 Nasal Cannula 2.0 03/03/16 20:30 117 20 125/67 93 Nasal Cannula 2.0 03/03/16 20:00 Nasal Cannula 2.0 03/03/16 20:00 37.5 115 20 121/65 93 Nasal Cannula 2.0 03/03/16 19:30 122 21 131/90 94 Nasal Cannula 2.0 03/03/16 19:00 122 18 124/73 93 Nasal Cannula 2.0 03/03/16 18:00 118 18 151/73 97 Nasal Cannula 2.0 03/03/16 16:00 115 20 129/63 97 Nasal Cannula 2.0 03/03/16 16:00 97 Nasal Cannula 2.0 03/03/16 15:21 112 16 96 Nasal Cannula 2.0 03/03/16 14:00 121 22 97/62 99 Nasal Cannula 2.0 03/03/16 12:00 117 16 158/82 89 Nasal Cannula 2.0 03/03/16 12:00 89 Nasal Cannula 2.0 03/03/16 11:20 115 18 95 Nasal Cannula 2.0 Lab Results: Results Past 24 Hours Test 03/03/16 11:50 03/03/16 16:07 03/03/16 23:55 03/04/16 05:10 Range/Units Vancomycin Level Trough 12.9 SEE COMMENT mcg/ml Bedside Glucose 125 149 70-90 mg/dl Phosphorus Level 1.3 2.5-4.9 mg/dl Magnesium Level 2.4 1.8-2.4 mg/dl Test 03/04/16 05:38 03/04/16 08:30 03/04/16 09:45 03/04/16 10:30 Range/Units Bedside Glucose 141 70-90 mg/dl White Blood Count 7.67 4.8-10.8 K/uL Red Blood Count 3.11 4.2-5.4 M/uL Hemoglobin 8.7 12.0-16.0 g/dL Hematocrit 27.3 37-47 % Mean Corpuscular Volume 87.8 80-100 fL Mean Corpuscular Hemoglobin 28.0 25-34 pg Mean Corpuscular Hemoglobin Concent 31.9 32-36 g/dl Platelet Count 272 130-400 K/uL Mean Platelet Volume 9.9 7.4-10.4 fL Neutrophils (%) (Auto) 82.5 % Lymphocytes (%) (Auto) 11.7 % Monocytes (%) (Auto) 4.8 % Eosinophils (%) (Auto) 0.0 % Basophils (%) (Auto) 0.1 % Neutrophils # (Auto) 6.32 1.4-6.5 K/uL Lymphocytes # (Auto) 0.90 1.2-3.4 K/uL Monocytes # (Auto) 0.37 0.11-0.59 K/uL Eosinophils # (Auto) 0.00 0-0.5 K/uL Basophils # (Auto) 0.01 0-0.2 K/uL RDW Standard Deviation 45.9 36.4-46.3 fL RDW Coefficient of Variation 14.6 11.5-14.5 % Immature Granulocyte % (Auto) 0.9 % Immature Granulocyte # (Auto) 0.07 0.00-0.02 K/uL Red Blood Cell Morphology
[2016-03-04 11:24] LABS: CALCIUM 7.8 mg/dl (8.5-10.1); CREATININE 0.49 mg/dl (0.60-1.20); POTASSIUM 3.9 mmol/L (3.5-5.1)
[2016-03-04] MEDS ORDERED: SODIUM PHOSPHATE INJ 30 MMOL in SODIUM CHLORIDE 0.9% 500ML 500 ML IV ONE (12:00)
[2016-03-04] MEDS ORDERED: NURSING VERBAL MED ORDER ONE (13:45)
[2016-03-04] MEDS ORDERED: ALTEPLASE, RECOMBINANT 1 MG/ML 2 ML VIAL IV ONE (14:00)
[2016-03-04] MEDS: METOPROLOL TARTRATE 1 MG/ML VIAL IV PRN (17:25)
[2016-03-04] MEDS: VANCOMYCIN INJ 1,400 MG in SODIUM CHLORIDE 0.9% 250ML 250 ML IV SCH (17:26)
[2016-03-04] MEDS ORDERED: INSULIN GLARGINE SOLOSTAR 100 UNITS/ML 3 ML PEN SC SCH (21:00)
[2016-03-05] VITALS (13 sets, daily range): BP systolic 128–186; BP diastolic 71–84; PULSE 99–112; TEMP 36.6–37.5; O2SAT 95–100
[2016-03-05] MEDS: FEEDING WATER FLUSH NG SCH ×6 (00:30→20:00)
[2016-03-05] MEDS: ARTIFICIAL TEARS OP SOLN OP SCH ×12 (00:30→20:52)
[2016-03-05] MEDS: VANCOMYCIN INJ 1,400 MG in SODIUM CHLORIDE 0.9% 250ML 250 ML IV SCH ×3 (00:45→16:47)
[2016-03-05] MEDS: INSULIN HUMAN REGULAR SC SCH ×4 (01:40→16:55)
[2016-03-05] MEDS: ALBUT/IPRATROP 3MG/0.5MG NEB 3 ML VIAL INH SCH ×6 (03:54→23:13)
[2016-03-05] MEDS ORDERED: VANCOMYCIN TROUGH ONE (07:30)
[2016-03-05] MEDS: BUDESONIDE/FORMOTEROL FUMARATE 160/4.5 60 PUFFS/INHALER INH SCH ×2 (07:58→20:53)
[2016-03-05] MEDS: ENOXAPARIN 40 MG/0.4 ML SYR SQ SCH ×2 (07:59→20:54)
[2016-03-05] MEDS: ASPIRIN 81 MG CHEW PO SCH (08:01)
[2016-03-05] MEDS: LANSOPRAZOLE SOLUTAB 30 MG OG SCH ×2 (08:01→20:53)
[2016-03-05] MEDS: PRAMIPEXOLE DIHYDROCHLORIDE 0.5 MG TAB PO SCH ×2 (08:02→20:54)
[2016-03-05] MEDS: CHLORHEXIDINE GLUCONATE 0.12% 480 ML MT SCH ×2 (08:03→20:53)
[2016-03-05] MEDS: GABAPENTIN 250 MG/5 ML 470 ML BTL NG SCH ×3 (08:04→20:53)
[2016-03-05 08:05] LABS: BUN/CREATININE RATIO 24.6 (10-20); CALCIUM 8.1 mg/dl (8.5-10.1); CREATININE 0.52 mg/dl (0.60-1.20); POTASSIUM 3.6 mmol/L (3.5-5.1)
--- NOTE | 2016-03-05 10:06 | Pharmacy Progress Note ---
Pharmacy Antibiotic Prog Note Date of Service: Mar 05, 2016. Subjective: The patient is currently receiving vancomycin 1400 mg iv q 8 hrs The patient is currently on day # 7 of IV therapy. Objective: Height (Feet): 5 Height (Inches): 2.00 Weight (Kilograms): 111.800 Levels: Item Value Date Time Vancomycin Level Trough 17.3 mcg/ml 03/05/16 0722 Lab Results (24hrs): Laboratory Tests Test 03/04/16 10:30 03/05/16 07:22 BUN/Creatinine Ratio 31.0 24.6 Blood Urea Nitrogen 15 mg/dl 13 mg/dl Creatinine 0.49 mg/dl 0.52 mg/dl Assessment & Plan: Patient on vancomycin for complicated staph UTI. Other abx (nitrofurantoin, bactrim) not desired due to risk of G6PD deficiency. Vancomycin: * Trough level this am came back therapeutic at ~17.3 mcg/ml (goal 15-20 mcg/ml - shooting for higher trough given recent fevers) * Will continue with current regimen and continue to monitor/adjust for renal function * Recommend rechecking trough in next 2-3 days or sooner if renal function changes (Scr stable ~0.52 mg/dL, CrCl >100 ml/min) * Of note, vancomycin in 250 ml bag to limit fluid intake per MD Pharmacy will continue to follow and will adjust dose/frequency as necessary. Thank you
[2016-03-05 14:08] LABS: MANUAL MICROSCOPIC REQUIRED? YES; URINE APPEARANCE CLEAR (CLEAR); URINE BILIRUBIN NEG (NEG); URINE COLOR YELLOW; URINE NITRITE NEG (NEG); URINE PH 7.5 (4.5-7.5); UROBILINOGEN NEG (NEG)
[2016-03-05 14:09] LABS: REVIEW REQ? YES; SULFASALICYLIC ACID POS (NEG)
[2016-03-05 14:17] LABS: URINE BACTERIA 1+ (NEG); URINE RBC >30 /hpf (0-4)
[2016-03-05] MEDS: METOPROLOL TARTRATE 1 MG/ML VIAL IV PRN (15:34)
[2016-03-05] MEDS ORDERED: PIPERACILL/TAZOBAC CONSULT ACTIVE PRN (16:15)
[2016-03-05] MEDS ORDERED: PIPERACILL/TAZOBAC IV 3.375 GM in DEXTROSE 5% 100ML IV ONE (16:30)
[2016-03-05] MEDS ORDERED: COUGH DROP (SUGAR FREE) LOZ 24 LOZ/1 BOX ONE (17:59)
[2016-03-05] MEDS ORDERED: PIPERACILL/TAZOBAC IV 3.375 GM in DEXTROSE 5% 100ML 100 ML IV SCH (18:00)
[2016-03-05] MEDS ORDERED: NURSING DECISION MEDICATION ORDER SCH (18:15)
[2016-03-05] MEDS ORDERED: COUGH DROP (SUGAR FREE) LOZ 24 LOZ/1 BOX PO PRN (18:30)
[2016-03-05 19:10] LABS: HEMATOCRIT 26.6 % (37-47)
--- NOTE | 2016-03-05 19:20 | Progress Note ---
Internal Med Progress Note Date of Service: Mar 05, 2016. 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 ASSESSMENT & PLAN: 60 year old female with history of COPD, Asthma DM, HTN other problems noted below presenting with increasing shortness of breath. Copd/Asthma exacerbation initially required bipap and later intubated currently on iv solumedrol, and inhalers s/p extubation 03/02/16 on nasal canula currently on po prednisone 20mg bid bipap prn monitor in pcu DM holding glimepiride and metformin on iss will closely monitor while on steroids UTI coag neg staph on iv vanco some blood in [place] reculture started on Zosyn for now Depression/Anxiety continue home meds appreciate psychiatry inputs Nutrition to continue tube feeds for now GERD Zantac added ppi Restless leg syndrome on Requip HTN restart losartan in am on iv lopressor and iv hydralazine prn will monitor DVT PROPHYLAXIS scds. Lovenox DISPOSITION Monitor in tele pt/ot Vital Signs: Date Time Temp Pulse Resp B/P Pulse Ox O2 Delivery O2 Flow Rate FiO2 03/05/16 16:04 104 18 98 Nasal Cannula 2.0 03/05/16 16:00 Room Air 03/05/16 15:34 37.5 20 100 Nasal Cannula 2.0 03/05/16 15:34 122 159/75 03/05/16 13:51 110 153/84 03/05/16 12:00 Room Air 03/05/16 11:44 37.1 100 16 186/78 98 Room Air 03/05/16 11:33 99 18 97 Room Air 03/05/16 08:00 Room Air 03/05/16 07:58 36.6 102 18 177/74 97 Room Air 03/05/16 07:12 102 18 97 Room Air 03/05/16 05:01 37.2 109 18 128/81 99 Room Air 03/05/16 03:54 105 20 95 Room Air 03/05/16 00:00 Room Air 03/04/16 23:12 102 18 95 Room Air 03/04/16 23:08 37.2 101 18 150/70 94 Room Air 03/04/16 20:54 105 18 95 Nasal Cannula 2.0 03/04/16 20:11 37.3 104 18 135/86 95 Room Air 03/04/16 20:00 Room Air Lab Results: Results Past 24 Hours Test 03/04/16 20:38 03/05/16 00:00 03/05/16 01:38 03/05/16 05:34 Range/Units Bedside Glucose 128 193 188 70-90 mg/dl Urine Color YELLOW Urine Appearance CLEAR CLEAR Urine pH 7.5 4.5-7.5 Urine Specific [place] 1.020 1.000-1.030 Urine Protein 1+ NEG Urine Glucose (UA) 1+ NEG Urine Ketones NEG NEG Urine Occult Blood 3+ NEG Urine Nitrite NEG NEG Urine Bilirubin NEG NEG Urine Urobilinogen NEG NEG Urine Leukocyte Esterase NEG NEG Urine RBC >30 0-4 /hpf Urine WBC 10-30 0-5 /hpf Urine Epithelial Cells 0-5 0-5 /lpf Urine Bacteria 1+ NEG Test 03/05/16 07:22 03/05/16 10:57 03/05/16 15:56 03/05/16 19:04 Range/Units Sodium Level 145 136-145 mmol/L Potassium Level 3.6 3.5-5.1 mmol/L Chloride Level 108 98-107 mmol/L Carbon Dioxide Level 30 21-32 mmol/L Anion Gap 7.0 3-11 mmol/L Blood Urea Nitrogen 13 7-18 mg/dl Creatinine 0.52 0.60-1.20 mg/dl Est Creatinine Clear Calc Drug Dose 134.1 ml/min Estimated GFR () 119.5 Estimated GFR (Non- 103.1 BUN/Creatinine Ratio 24.6 10-20 Random Glucose 152 70-99 mg/dl Calcium Level 8.1 8.5-10.1 mg/dl Vancomycin Level Trough 17.3 SEE COMMENT mcg/ml Bedside Glucose 163 156 70-90 mg/dl Hemoglobin 8.5 12.0-16.0 g/dL Hematocrit 26.6 37-47 % Microbiology Results 03/05/16 Urine Culture, Received Pending
[2016-03-05] MEDS: PIPERACILL/TAZOBAC IV 3.375 GM in DEXTROSE 5% 100ML IV SCH (22:19)
[2016-03-06] VITALS (13 sets, daily range): BP systolic 136–166; BP diastolic 67–82; PULSE 87–105; TEMP 36.7–37; O2SAT 92–100
[2016-03-06] MEDS: INSULIN HUMAN REGULAR SC SCH ×5 (00:08→20:39)
[2016-03-06] MEDS: VANCOMYCIN INJ 1,400 MG in SODIUM CHLORIDE 0.9% 250ML 250 ML IV SCH ×3 (00:22→16:00)
[2016-03-06] MEDS: FEEDING WATER FLUSH NG SCH ×3 (00:22→07:57)
[2016-03-06] MEDS: ALBUT/IPRATROP 3MG/0.5MG NEB 3 ML VIAL INH SCH ×6 (03:18→23:26)
[2016-03-06] MEDS: ARTIFICIAL TEARS OP SOLN OP SCH ×12 (04:00→20:27)
[2016-03-06] MEDS: PIPERACILL/TAZOBAC IV 3.375 GM in DEXTROSE 5% 100ML IV SCH ×2 (06:30→14:03)
[2016-03-06 07:10] LABS: HEMATOCRIT 25.1 % (37-47); MEAN CELL VOLUME 88.1 fL (80-100); MEAN CORPUSCULAR HEMOGLOBIN 28.1 pg (25-34); MEAN CORPUSCULAR HGB CONC 31.9 g/dl (32-36); MEAN PLATELET VOLUME 9.6 fL (7.4-10.4); PLATELET COUNT 284 K/uL (130-400); RED BLOOD COUNT 2.85 M/uL (4.2-5.4); WHITE BLOOD COUNT 8.69 K/uL (4.8-10.8)
[2016-03-06 07:45] LABS: BUN/CREATININE RATIO 23.5 (10-20); CREATININE 0.51 mg/dl (0.60-1.20); POTASSIUM 3.6 mmol/L (3.5-5.1)
[2016-03-06] MEDS ORDERED: FUROSEMIDE INJ 20 MG in SYRINGE 0 ML IV ONE (07:45)
[2016-03-06] MEDS: BUDESONIDE/FORMOTEROL FUMARATE 160/4.5 60 PUFFS/INHALER INH SCH ×2 (07:57→20:27)
[2016-03-06] MEDS: CHLORHEXIDINE GLUCONATE 0.12% 480 ML MT SCH ×2 (07:58→20:28)
[2016-03-06] MEDS: GABAPENTIN 250 MG/5 ML 470 ML BTL NG SCH ×3 (07:59→20:36)
[2016-03-06] MEDS: LOSARTAN POTASSIUM 25 MG TAB PO SCH (08:00)
[2016-03-06] MEDS: ENOXAPARIN 40 MG/0.4 ML SYR SQ SCH (08:00)
[2016-03-06] MEDS: PRAMIPEXOLE DIHYDROCHLORIDE 0.5 MG TAB PO SCH ×2 (08:01→20:30)
[2016-03-06] MEDS: ASPIRIN 81 MG CHEW PO SCH (08:02)
[2016-03-06] MEDS: LANSOPRAZOLE SOLUTAB 30 MG OG SCH ×2 (08:02→20:31)
[2016-03-06] MEDS ORDERED: INSULIN GLARGINE SOLOSTAR 100 UNITS/ML 3 ML PEN SC SCH ×2 (09:00→17:00)
[2016-03-06] MEDS ORDERED: CYCLOBENZAPRINE HCL 10 MG TAB PO PRN (10:30)
[2016-03-06] MEDS ORDERED: FUROSEMIDE 20 MG TAB PO PRN (10:30)
[2016-03-06] MEDS ORDERED: NURSING VERBAL MED ORDER ONE (10:45)
--- NOTE | 2016-03-06 14:53 | Pharmacy Progress Note ---
Glycemic Control: Progress Nt Date of Service Mar 06, 2016. Scope Glycemic Pharmacist consulted by Dr Murillo on 02/22/16 for glycemic control and to write orders per [facility] inpatient glycemic control protocol. Objective Accuchecks BSG (last 24hrs): Test 03/05/16 15:56 03/05/16 20:32 03/06/16 00:01 03/06/16 06:25 Bedside Glucose 156 mg/dl (70-90) 153 mg/dl (70-90) 172 mg/dl (70-90) Random Glucose 164 mg/dl (70-99) Test 03/06/16 09:29 Bedside Glucose 166 mg/dl (70-90) Laboratory Data (last 24hrs) Test 03/06/16 06:25 Anion Gap 8.0 mmol/L BUN/Creatinine Ratio 23.5 Blood Urea Nitrogen 12 mg/dl Creatinine 0.51 mg/dl Potassium Level 3.6 mmol/L Sodium Level 145 mmol/L White Blood Count 8.69 K/uL HbA1c: Test 02/23/16 05:32 Hemoglobin A1c 6.7 % (4.5-5.6) H Recent Pertinent Medications Outpatient Anti-diabetic Regimen: * Amaryl 0.5mg PO daily * Metformin 1,000mg PO BIDM The patient is currently receiving: * Basal insulin: None * Correctional Insulin: Regular Correction per scale ACHS Goal Range: Low 120 mg/dL - High 140 mg/dL Correction Factor: 20 mg/dL/unit * Prandial insulin: Per carb ratio of 1 unit per 7 grams CHO consumed Risk Factors for Insulin Resistance: * Steroids * Infection * Diet: Continuous Tube feedings Assessment & Plan ASSESSMENT: * 60yo well controlled T2DM on oral agents as an outpatient. Oral agents held on admission and pt initiated on SQ basal bolus insulin regimen for inpatient use. * BSGs have been near-adequately controlled on correctional/prandial insulin only --> patient would benefit from addition of basal insulin * Continuous tube feedings d/c today. Pt is tolerating PO diet. BSGs should improve with d/c of continuous tube feedings. * ADA & AACE recommend a goal blood sugar range 140-180 mg/dl for the majority of critically ill & non-critically ill patients. However, more stringent targets may be selected in individual cases. PLAN FOR INPATIENT GLYCEMIC CONTROL: Continue SQ basal bolus insulin regimen per conservative weight based dosing. * Hold outpatient oral diabetes medications * Basal insulin with LANTUS 10 units SQ HS * HOLD if BSG < 120 mg/dl * Correctional Insulin with REGULAR per scale ACHS or Q6hrs while NPO * Goal Range: Low 120 mg/dL - High 140 mg/dL * Correction Factor: 30 mg/dL/unit * Nutritional / Prandial insulin per carb ratio of 1 unit per 10 grams CHO consumed * Please note that the plan above was derived based on current level of insulin resistance and hospital stress. These recommendations are appropriate for inpatient admission only. Plan of care upon discharge will need to be reassessed to avoid potential outpatient hypo/hyperglycemia. Thank you.
--- NOTE | 2016-03-06 18:08 | Progress Note ---
Internal Med Progress Note Date of Service: Mar 06, 2016. Provider Documentation: SUBJECTIVE: patient getting stronger able to eat more still has salazar red in [place] bag sob improved denies cough afebrile OBJECTIVE: Vital Signs-as noted below Exam: General-alert and awake Neck-no neck masses Lungs-cta b/l , no wheezing or crackles Heart-s1 and s2 heard regular, no murmurs Abdomen-soft bowel sounds present no distension Extremities-no edema present no erythema Neuro- alert and oriented moves extremities Lab data as noted below. ASSESSMENT & PLAN: 60 year old female with history of COPD, Asthma DM, HTN other problems noted below presenting with increasing shortness of breath. Copd/Asthma exacerbation initially required bipap and later intubated currently on iv solumedrol, and inhalers s/p extubation 03/02/16 on nasal canula currently on po prednisone 20mg bid bipap prn monitor in pcu stable pt/ot DM holding glimepiride and metformin on iss 172/164/166/125 will closely monitor while on steroids UTI coag neg staph on iv vanco some blood in [place] reculture negative Hematuria mild since 2 days Lovenox stopped monitor hb urology consulted Depression/Anxiety continue home meds appreciate psychiatry inputs Nutrition stopping tube feeds as patient able to take adequately orally. GERD Zantac added ppi Restless leg syndrome on Requip HTN restart losartan in am on iv lopressor and iv hydralazine prn will monitor DVT PROPHYLAXIS scds. Lovenox DISPOSITION Monitor in tele pt/ot may need placement social service for d/c planning Vital Signs: Date Time Temp Pulse Resp B/P Pulse Ox O2 Delivery O2 Flow Rate FiO2 03/06/16 16:00 Room Air 03/06/16 15:40 36.9 95 19 146/80 98 Room Air 03/06/16 15:03 89 16 97 Room Air 03/06/16 12:00 Room Air 03/06/16 11:44 36.8 89 18 166/77 98 Room Air 03/06/16 11:15 102 16 92 Room Air 03/06/16 08:00 Room Air 03/06/16 07:36 36.7 101 18 145/82 100 2.0 03/06/16 07:34 91 16 99 Nasal Cannula 2.0 03/06/16 04:03 37.0 104 20 154/67 99 Nasal Cannula 2.0 03/06/16 04:00 Room Air 03/06/16 03:18 103 16 98 Nasal Cannula 2.0 03/06/16 00:00 Room Air 03/05/16 23:40 37.0 104 22 129/71 99 Nasal Cannula 2.0 03/05/16 23:13 107 16 98 Nasal Cannula 2.0 03/05/16 20:16 112 16 98 Nasal Cannula 2.0 03/05/16 20:00 Room Air 03/05/16 19:49 37.5 112 18 146/72 99 Nasal Cannula 2.0 Lab Results: Results Past 24 Hours Test 03/05/16 19:04 03/05/16 20:32 03/06/16 00:01 03/06/16 06:25 Range/Units Hemoglobin 8.5 8.0 12.0-16.0 g/dL Hematocrit 26.6 25.1 37-47 % Bedside Glucose 153 172 70-90 mg/dl White Blood Count 8.69 4.8-10.8 K/uL Red Blood Count 2.85 4.2-5.4 M/uL Mean Corpuscular Volume 88.1 80-100 fL Mean Corpuscular Hemoglobin 28.1 25-34 pg Mean Corpuscular Hemoglobin Concent 31.9 32-36 g/dl RDW Standard Deviation 46.6 36.4-46.3 fL RDW Coefficient of Variation 14.7 11.5-14.5 % Platelet Count 284 130-400 K/uL Mean Platelet Volume 9.6 7.4-10.4 fL Sodium Level 145 136-145 mmol/L Potassium Level 3.6 3.5-5.1 mmol/L Chloride Level 108 98-107 mmol/L Carbon Dioxide Level 29 21-32 mmol/L Anion Gap 8.0 3-11 mmol/L Blood Urea Nitrogen 12 7-18 mg/dl Creatinine 0.51 0.60-1.20 mg/dl Est Creatinine Clear Calc Drug Dose 135.4 ml/min Estimated GFR () 120.3 Estimated GFR (Non- 103.8 BUN/Creatinine Ratio 23.5 10-20 Random Glucose 164 70-99 mg/dl Calcium Level 8.0 8.5-10.1 mg/dl Test 03/06/16 09:29 03/06/16 16:17 Range/Units Bedside Glucose 166 125 70-90 mg/dl
[2016-03-06] MEDS: AMITRIPTYLINE HCL 10 MG TAB PO SCH (20:29)
--- NOTE | 2016-03-06 22:32 | Urology Consultation ---
History General Date of Service: Mar 06, 2016. Primary Care Physician: Martina Jay M.D. History of Present Illness 60 y/o AAF admitted several weeks ago with pulmonary distress, now slowly improving. During the stay she was found to have a UTI. Was treated with abx in ICU - [facility] for staph UTI. Travis was subsequently removed several days ago. She had urinary incontinence. Stated that she didn't feel the urge at all to void. Urine had a pink tinge at that time. Yesterday, the travis was replaced, primarily for the incontinence issue. Shortly after the travis was placed, bright red blood was noted in the catheter bag. Since then she has be given Lasix and the hematuria has improved. No issues with clots or difficulty with drainage. Pt denies hx of hematuria, stones, or freq UTIs. She did have 2 children, vaginal deliveries. And reports baseline mixed incontinence. No imaging of abdomen has been performed yet during this hospitalization. Laboratory Labs were reviewed and are within normal limits unless listed below. Labs are available in the chart and at [facility] Problem List Medical Problems: (1) Anemia Status: Acute (2) Asthma exacerbation Status: Acute (3) Asthma exacerbation Status: Acute (4) COPD exacerbation Status: Acute (5) COPD exacerbation Status: Acute (6) Fever Status: Acute (7) Headache Status: Acute (8) Respiratory failure Status: Acute (9) Respiratory failure Status: Acute (10) Sepsis Status: Acute (11) Wheezing Status: Acute Past History COPD, other Past Surgical History: no surgical history Family History Diabetes mellitus FH: heart disease FH: lung disease FHx: cancer Hypertension Social History Hx Tobacco Use In Past Year?: No Alcohol: socially Drug use: other Marital status: single Housing status: lives with family Occupation status: disabled Immunizations History of Influenza Vaccine: Yes Influenza Vaccine Date: Nov 27, 2010 History of Tetanus Vaccine?: No History of Pneumococcal: Yes Pneumococcal Date: Mar 16, 2009 History of Hepatitis B Vaccine: No History of MDRO No Allergies Coded Allergies: No Known Allergies (Verified , 02/21/16) Medications Home Medications: Home Meds and Scripts Medications Dose Route/Sig Max Daily Dose Days Date Category Dose Instructions Vitamin B12 (Cyanocobalamin) 1,000 Mcg Tab 1,000 Mcg PO DAILY 02/21/16 Reported Fluticasone Propionate 120 Sprays/6000 Mcg Inha 2 Sprays LIDYA BID PRN 12/28/15 Reported Aspirin Chewable (Aspirin) 81 Mg Chew 81 Mg PO DAILY 12/28/15 Reported Adel 5MG/325MG (Acetaminophen/Hydrocodone Bitart) Tab 1 Tablet PO Q8 PRN 12/28/15 Reported may take 1 extra if needed Potassium Chloride Er (Potassium Chloride) 10 Meq Tab 1 Tab PO DAILY PRN 12/28/15 Reported Prednisone 10 Mg Tab Mg PO UD PRN 12/28/15 Reported 5 tabs for 5 days then 4 tabs for 5 days 3 tabs for 5 days 2 tabs for 5 days 1 tab for 5 days Zithromax (Azithromycin) 250 Mg Tab 1 Pkt PO UD PRN 5 12/28/15 Reported Brovana (Arformoterol Tartrate) 15 Mcg/2 Ml Neb 15 Mcg IN BID 12/28/15 Reported Mirapex Er (Pramipexole Dihydrochloride) 1.5 Mg Tab 1-2 Tabs PO HS PRN 12/28/15 Reported Duoneb (Ipratropium-Albuterol) 3 Ml Nebu 1 Treatment INH Q4H PRN 12/28/15 Reported Amitriptyline HCl 10 Mg Tab 10 Mg PO HS 12/28/15 Reported Breo Ellipta 200-25 Mcg/INH (Fluticasone Furoate-Vilanterol) 1 Inh Inh 1 Puff PO DAILY 12/28/15 Reported Tessalon Perles (Benzonatate) 100 Mg Cap 1-2 Cap PO TID PRN 5 12/28/15 Reported Oxygen Gas 2 Liters NA HS 07/23/15 Reported may use during day when needed Lipitor (Atorvastatin Calcium) 10 Mg Tab 10 Mg PO QAM 07/23/15 Reported Lasix (Furosemide) 20 Mg Tab 20 Mg PO QAM PRN 07/23/15 Reported Flexeril (Cyclobenzaprine Hcl) 10 Mg Tab 10 Mg PO BID PRN 07/23/15 Reported Singulair (Montelukast Sodium) 10 Mg Tab 10 Mg PO QAM 07/23/15 Reported Glucophage (Metformin Hcl) 1,000 Mg Tab 1,000 Mg PO BID 07/23/15 Reported Protonix (Pantoprazole Sodium) 40 Mg Tab 40 Mg PO QAM 07/23/15 Reported Cozaar (Losartan Potassium) 25 Mg Tab 25 Mg PO QAM 07/23/15 Reported Zantac (Ranitidine HCl) 300 Mg Tab 300 Mg PO HS 07/23/15 Reported Neurontin (Gabapentin) 100 Mg Cap 100 Mg PO TID 07/23/15 Reported Mirapex (Pramipexole Dihydrochloride) 0.5 Mg Tab 0.5 Mg PO BID 07/23/15 Reported Iron Supplement (Ferrous Sulfate) 325 Mg Tab 325 Mg PO QAM 07/23/15 Reported Amaryl (Glimepiride) 1 Mg Tab 0.5 Tab PO QAM PRN 05/26/15 Reported Ambien (Zolpidem Tartrate) 10 Mg Tab 10 Mg PO HS PRN 04/01/15 Reported Proair Hfa (Albuterol) Aers 2 Puff INH Q4H PRN 04/07/14 Reported Spiriva Handihaler (Tiotropium [place]) 18 Mcg/ Aerp 1 Cap INH QAM 03/27/13 Reported Inpatient Medications: Current Inpatient Medications Medications (Trade) Dose Ordered Sig/Allison Route Start Time Stop Time Status Last Admin Dose Admin Ondansetron HCl (Zofran Inj) 4 mg Q6H PRN IV 02/22/16 02:15 03/23/16 02:14 Glucose (Glucose 40% Gel) 15-30 GRAMS 15 GRAMS... UD PRN PO 02/22/16 02:15 03/23/16 02:14 Glucose (Glucose Chew Tab) 4-8 Tablets 4 Tabl... UD PRN PO 02/22/16 02:15 03/23/16 02:14 Dextrose (Dextrose 50% 50ML Syringe) 25-50ML OF 50% DW IV FOR... UD PRN IV 02/22/16 02:15 03/23/16 02:14 Glucagon (Glucagon Inj) 1 mg UD PRN SQ 02/22/16 02:15 03/23/16 02:14 Miscellaneous Information (Consult Glycemic Management Pharmacy) 1 ea UD PRN N/A 02/22/16 02:45 03/23/16 02:44 Atorvastatin Calcium (Lipitor Tab) 10 mg QAM PO 02/22/16 09:00 03/23/16 08:59 Future Hold 03/04/16 07:46 10 MG Miscellaneous Information (Order Awaiting Action) 1 ea QS N/A 02/22/16 05:30 03/23/16 05:29 Budesonide/ Formoterol Fumarate (Symbicort 160/ 4.5 Inh) 2 puffs BID INH 02/22/16 21:00 03/23/16 20:59 03/06/16 20:27 2 PUFFS Chlorhexidine Gluconate (Peridex Oral Soln) 15 ml BID MT 02/24/16 21:00 03/25/16 20:59 03/06/16 20:28 15 ML Albuterol (Ventolin Hfa Inhaler) 4 puffs Q2R PRN INH 02/25/16 10:45 03/26/16 10:44 Aspirin (Aspirin Chew) 81 mg QAM PO 02/27/16 09:00 03/28/16 08:59 03/06/16 08:02 81 MG Artificial Tears (Artificial Tears) 2 drops Q4H OP 02/27/16 16:00 03/28/16 15:59 03/06/16 20:27 2 DROPS Metoprolol Tartrate (Lopressor Iv) 5 mg Q6 PRN IV 02/27/16 18:00 03/28/16 17:59 03/05/16 15:34 5 MG Pramipexole Dihydrochloride (miraPEX TAB) 0.25 mg BID PO 02/28/16 09:00 03/29/16 08:59 03/06/16 20:30 0.25 MG Labetalol HCl (Normodyne IV) 20 mg Q1H PRN IV 02/28/16 10:00 03/29/16 09:59 03/01/16 11:47 20 MG Vancomycin HCl (Consult) 1 ea UD PRN N/A 02/28/16 12:00 03/29/16 11:59 Gabapentin (Neurontin) 100 mg TID NG 02/29/16 14:00 03/30/16 13:59 03/06/16 20:36 100 MG Hydralazine HCl (HydrALAZINE INJ) 10 mg Q6H PRN IV. 02/29/16 12:45 03/30/16 12:44 03/05/16 13:17 10 MG Lansoprazole (Prevacid Solutab) 30 mg BID OG 03/01/16 09:00 03/31/16 08:59 03/06/16 20:31 30 MG Acetaminophen (Tylenol Soln) 650 mg Q4H PRN NG 02/29/16 21:15 03/30/16 21:14 03/03/16 21:16 650 MG Heparin Sodium (Porcine) (Heparin 10 Unit/ ml 5 ml Flush) 5 ml PRN PRN FLUSH 03/02/16 10:00 04/01/16 09:59 03/04/16 13:48 5 ML Albuterol/ Ipratropium 3 ml 3 ml Q4R INH 03/02/16 16:00 04/01/16 15:59 03/06/16 20:09 3 ML Vancomycin HCl/ Sodium Chloride (Vancomycin Inj/ Nss 250ml) 278 ml @ 125 mls/hr Q8H IV 03/04/16 16:00 03/08/16 23:59 Future hold 03/06/16 16:00 125 MLS/HR Prednisone (PredniSONE TAB) 20 mg BID PO 03/04/16 21:00 04/03/16 20:59 03/06/16 20:31 20 MG Menthol (Nice Von) 1 von PRN PRN PO 03/05/16 18:30 04/04/16 18:29 Losartan Potassium (coZAAR TAB) 25 mg QAM PO 03/06/16 09:00 04/05/16 08:59 03/06/16 08:00 25 MG Cyclobenzaprine HCl (Flexeril Tab) 10 mg BID PRN PO 03/06/16 10:30 04/05/16 10:29 Furosemide (Lasix tab) 20 mg QAM PRN PO 03/06/16 10:30 04/05/16 10:29 Amitriptyline HCl (Elavil Tab) 10 mg HS PO 03/06/16 21:00 04/05/16 20:59 03/06/16 20:29 10 MG Insulin Human Regular (novoLIN-R) SLIDING SCALE If C... ACHS SC 03/06/16 16:15 04/05/16 16:14 03/06/16 20:39 1 UNITS Insulin Glargine (Lantus Solostar Pen) 10 unit HS SC 03/06/16 17:00 04/05/16 16:59 03/06/16 17:11 10 UNIT Review of Systems Review of Systems Constitutional: No chills, No fever Eyes: No double vision Neurological: No dizzy Endocrine: No excessive thirst Gastrointestinal: No abdominal pain Cardiovascular: No chest pain Respiratory: No shortness of breath Female : + blood in urine, + frequent urination, + leaking urine All Other Systems: Reviewed and Negative Physical Exam Vital Signs: Vital Signs Past 12 Hours Date Time Temp Pulse Resp B/P Pulse Ox O2 Delivery O2 Flow Rate FiO2 03/06/16 20:09 105 16 97 Room Air 03/06/16 18:55 36.8 105 19 137/81 97 Room Air 03/06/16 16:00 Room Air 03/06/16 15:40 36.9 95 19 146/80 98 Room Air 03/06/16 15:03 89 16 97 Room Air 03/06/16 12:00 Room Air 03/06/16 11:44 36.8 89 18 166/77 98 Room Air 03/06/16 11:15 102 16 92 Room Air Physical Exam: General Appearance: WD/WN, no apparent distress ENT: normal ENT inspection Neck: supple Respiratory/Chest: chest non-tender, + crackles Cardiovascular: regular rate, rhythm Extremities: normal range of motion 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 Given timing, very well may have been due to recent UTI, bladder friability, and catheterization. However, to be complete, I recommend CT Scan of Abd/Pelvis to further identify additional causes of gross hematuria such as stone or mass. If that is normal, then a cystoscopy can be performed as an outpatient to complete with work up.
[2016-03-07] VITALS (12 sets, daily range): BP systolic 124–161; BP diastolic 68–83; PULSE 75–128; TEMP 36.4–37.2; O2SAT 94–100
[2016-03-07] MEDS: VANCOMYCIN INJ 1,400 MG in SODIUM CHLORIDE 0.9% 250ML 250 ML IV SCH ×4 (00:07→23:53)
[2016-03-07] MEDS: ARTIFICIAL TEARS OP SOLN OP SCH ×14 (04:00→23:53)
[2016-03-07] MEDS: ALBUT/IPRATROP 3MG/0.5MG NEB 3 ML VIAL INH SCH ×7 (04:09→23:32)
[2016-03-07 06:56] LABS: CREATININE 0.58 mg/dl (0.60-1.20)
[2016-03-07] MEDS: BUDESONIDE/FORMOTEROL FUMARATE 160/4.5 60 PUFFS/INHALER INH SCH ×2 (08:19→21:41)
[2016-03-07] MEDS: CHLORHEXIDINE GLUCONATE 0.12% 480 ML MT SCH ×2 (08:21→21:40)
[2016-03-07] MEDS: PRAMIPEXOLE DIHYDROCHLORIDE 0.5 MG TAB PO SCH ×2 (08:22→21:42)
[2016-03-07] MEDS: LANSOPRAZOLE SOLUTAB 30 MG OG SCH (08:22)
[2016-03-07] MEDS: LOSARTAN POTASSIUM 25 MG TAB PO SCH (08:23)
[2016-03-07] MEDS: INSULIN HUMAN REGULAR SC SCH ×4 (08:29→21:51)
[2016-03-07] MEDS: ASPIRIN 81 MG CHEW PO SCH (08:30)
[2016-03-07] MEDS ORDERED: ACETAMINOPHEN 325 MG TAB PO PRN (08:45)
[2016-03-07] MEDS ORDERED: NURSING VERBAL MED ORDER ONE (08:45)
[2016-03-07] MEDS: PANTOprazole SOD 40 MG TAB PO SCH (09:00)
[2016-03-07] MEDS: ASPIRIN 81 MG ECTAB PO SCH (09:00)
--- NOTE | 2016-03-07 09:16 | Psychiatric Progress Notes ---
Psychiatric Progress Note Date of Service Mar 07, 2016. Notes ID: Patient reviewed with liaison nurse. Interim progress reviewed. CC: "yesterday was just a rough day" HPI: positive about improvements, doesn't feel steroids per se making her more emotional, slept OK ROS: raspy voice, denies throat pain MSE: alert, cooperative, pleasant, thoughts organized, normal speech, no SI/HI/ conley. Imp: adjustment disorder with mixed anxiety and depressed mood, chronic steroids Plan: continue to monitor mood, onset of sadness is recent, appreciates support from liaison nurses, already significant polypharm and on low dose TCA for other indication so would avoid SSRI. Team at [facility] can reconsider if no improvement in 2 weeks with ongoing rehab. It QTc allows, may make most sense at that time to try titration of TCA first prior to adding another agent.
[2016-03-07] MEDS: GABAPENTIN 100 MG CAP PO SCH ×3 (09:41→21:41)
[2016-03-07 10:27] LABS: BASO % 0.1 %; BASO ABS # 0.01 K/uL (0-0.2); EOS % 0.2 %; HEMATOCRIT 27.1 % (37-47); IG% 1.4 %; LYMPH % 22.3 %; LYMPH ABS # 2.06 K/uL (1.2-3.4); MEAN CELL VOLUME 88.9 fL (80-100); MEAN CORPUSCULAR HEMOGLOBIN 27.9 pg (25-34); MEAN CORPUSCULAR HGB CONC 31.4 g/dl (32-36); MEAN PLATELET VOLUME 9.3 fL (7.4-10.4); MONO % 8.1 %; NEUT % 67.9 %; PLATELET COUNT 302 K/uL (130-400); RED BLOOD COUNT 3.05 M/uL (4.2-5.4); WHITE BLOOD COUNT 9.25 K/uL (4.8-10.8)
[2016-03-07 10:50] LABS: BUN/CREATININE RATIO 26.9 (10-20); CALCIUM 8.7 mg/dl (8.5-10.1); CREATININE 0.58 mg/dl (0.60-1.20); POTASSIUM 4.1 mmol/L (3.5-5.1)
[2016-03-07 10:59] LABS: COMPLETE YES
--- NOTE | 2016-03-07 12:00 | DIAGNOSTIC IMAGING REPORT ---
CT ABD/PELVIS COMBO CLINICAL HISTORY: Hematuria. COMPARISON STUDY: None. TECHNIQUE: Unenhanced images were obtained through the abdomen and pelvis. The patient was then injected with 50 cc Optiray 320. After 5 minute delay, the patient was reimaged in a dynamic helical fashion during intravenous administration of additional [address] DOSE: 2666.78 mGy.cm FINDINGS: Lower chest: There is pulmonary emphysema. There are mild basilar atelectatic changes. Liver: The contrast-enhanced liver is normal in size, contour, and attenuation. There is no intrahepatic biliary ductal dilatation. The hepatic veins and portal veins are patent. Gallbladder: Unremarkable. Spleen: Normal in size and attenuation. Pancreas: Unremarkable. Adrenal glands: Unremarkable. Kidneys: There are multiple bilateral hypodense renal masses. These approach water attenuation and demonstrate no definite pathologic enhancement. These likely represent cysts. The largest arises from the upper pole the right kidney measuring 18 mm. This contains a punctate mural calcification. No collecting system lesions are visualized. There is no hydronephrosis. No ureteral lesions are visualized. No renal, ureteral, or bladder calculi are visualized. Bowel: There are no transition zones indicate bowel obstruction. There are no findings to indicate acute appendicitis. There are no findings to indicate acute diverticulitis. Peritoneum: There is no intraperitoneal free air or abdominal ascites. There is a small fat-containing left inguinal hernia. There is a small fat-containing umbilical hernia. Vasculature: The abdominal aorta is normal in course and caliber. Adenopathy: None. Pelvic viscera: There is an indwelling [place] catheter. Skeletal structures: No destructive osseous lesions are seen. IMPRESSION: 1. No renal, ureteral, or bladder calculi identified 2. Bilateral hypodense renal lesions, likely representing cysts. 3. Indwelling [place] catheter 4. No evidence of bowel obstruction. No evidence of free air. No acute inflammatory changes. 5. No collecting system or ureteral lesions identified Electronically signed by: Byron Sauceda M.D. 03/07/2016 11:58 AM Dictated Date/Time: 03/07/2016 11:51 AM
--- NOTE | 2016-03-07 14:11 | Progress Note ---
Post ICU Progress Note Date & Time Mar 07, 2016 at 13:35 Vital Signs Vital Signs Past 12 Hours Date Time Temp Pulse Resp B/P Pulse Ox O2 Delivery O2 Flow Rate FiO2 03/07/16 12:25 Room Air 03/07/16 11:07 37.2 98 20 161/78 97 Room Air 03/07/16 08:00 36.6 89 22 151/76 100 Room Air 03/07/16 08:00 Room Air 03/07/16 07:05 77 16 95 Room Air 03/07/16 04:15 Room Air 03/07/16 04:10 103 16 96 Room Air 03/07/16 03:42 36.7 97 18 124/68 97 Room Air Notes Mental Status: alert / awake, participated in evaluation Nausea / Vomiting: adequately controlled Pain: adequately controlled Airway Patency, RR, SpO2: stable & adequate BP & HR: stable & adequate Ms. kaminski is a 60yo female who presented to the hospital on 02/20 for shortness of breath. She is a history of asthma, severe COPD, pulmonary nodule , nocturnal hypoxemia, previous chronic use of O2. During this particular stay this patient required BiPAP and ultimately intubation on February 23. During this intubation nicole Kaminski received both steroids and neuromuscular blockade' s which have the propensity to cause myopathy. Upon extubation on March 02, Angelique was extremely globally weak and was unable to do much more than squeeze her hands. At that time the offending agents have been stopped and steroids were being tapered as quickly as her respiratory situation would allow. During her stay in the ICU she was being treated for complicated UTI with vancomycin and she was spiking fevers on a near daily basis. She had suffered from opioid induced constipation which was ultimately treated with both Relistor and PO Narcan to bind previous narcotics in order to encourage defecation. When he suffered multiple electrolyte imbalances while in the ICU which required hydration and replacement. After 8 days of intubation she was extubated to 4L nasal cannula and has made steady progress since; she is on room air today. During this admission to the ICU, she did not require arterial line or central line; however she did receive a double lumen PICC for medication administration. She was transferred from the ICU on March 04. She has required multiple consults this admission; including, pulmonology, psychiatric, urology. Today Mrs. Yamilex [place] has been reinserted due to incontinence and lack of feeling the urge to void. She stated to me today that when the [place] was inserted blood was noted but has since improved. Urology is following and is recommending further evaluation for cause of gross hematuria. She underwent CT scan today, which demonstrated likely cysts to the right kidney. From a neurological standpoint, this patient has made great strides towards improvement. Her strength is greatly improved today, however still very limited. It takes this patient much effort to just place her cell phone on her bedside tray. She states it is still difficult to feed herself, I note that flexion and movement of the lower portion of her upper extremities is more difficult than movement at the shoulders and upper arms. Compared to my previous exam in the ICU, her strength has greatly improved but she will need continue physical therapy and a significant rehabilitation program. Today on examining her, she is sitting upright in bed easily holding her head off the pillow for most of the conversation. Speaking to me without shortness of breath or intermittent coughing. She appears to be in good spirits, stating " God is good." She is aware that she has been through an enormous medical issue since late January. She has no complaints today. She states the sore throat from the prior intubation is gone. Her prior cough is subsiding with the use of cough drops. She denies fever, chills, trouble breathing, chest pain , palpitations,nausea, abd pain, urinary irritation, or constipation/diarrhea. Her physical exam has shown much improvement in both in neurologic and respiratory status. There were no new acute findings on physical exam today. She is stable at this time. Repeat imaging needed: * Per Urology recommendations Follow up cultures: N/A Reviewed progress notes, labs, and inpatient medication list Continue current management per hospitalist team: * Follow H&H (trending back up now) Additional recommendations: * Rehabilitation recommended; Case management aware and will obtain prior-auth prior to discharge. Angelique is stable at this time, Critical Care will sign off. Thank you for involving us in the care of this patient, please feel free to reconsult as needed.
--- NOTE | 2016-03-07 16:06 | Pharmacy Progress Note ---
Glycemic Control: Progress Nt Date of Service Mar 07, 2016. Scope Glycemic Pharmacist consulted by Dr Murillo on 02/22/2016 for glycemic control and to write orders per [facility] inpatient glycemic control protocol. Objective Accuchecks BSG (last 24hrs): Test 03/06/16 16:17 03/06/16 20:24 03/07/16 06:45 03/07/16 10:00 Bedside Glucose 125 mg/dl (70-90) 153 mg/dl (70-90) 136 mg/dl (70-90) Random Glucose 108 mg/dl (70-99) Test 03/07/16 11:03 Bedside Glucose 103 mg/dl (70-90) Laboratory Data (last 24hrs) Test 03/07/16 05:38 03/07/16 10:00 Creatinine 0.58 mg/dl 0.58 mg/dl Anion Gap 8.0 mmol/L BUN/Creatinine Ratio 26.9 Blood Urea Nitrogen 16 mg/dl Potassium Level 4.1 mmol/L Sodium Level 146 mmol/L White Blood Count 9.25 K/uL Red Blood Count 3.05 M/uL Hemoglobin 8.5 g/dL Hematocrit 27.1 % Mean Corpuscular Volume 88.9 fL Mean Corpuscular Hemoglobin 27.9 pg Mean Corpuscular Hemoglobin Concent 31.4 g/dl Platelet Count 302 K/uL Mean Platelet Volume 9.3 fL Neutrophils (%) (Auto) 67.9 % Lymphocytes (%) (Auto) 22.3 % Monocytes (%) (Auto) 8.1 % Eosinophils (%) (Auto) 0.2 % Basophils (%) (Auto) 0.1 % Neutrophils # (Auto) 6.28 K/uL Lymphocytes # (Auto) 2.06 K/uL Monocytes # (Auto) 0.75 K/uL Eosinophils # (Auto) 0.02 K/uL Basophils # (Auto) 0.01 K/uL HbA1c: Test 02/23/16 05:32 Hemoglobin A1c 6.7 %(4.5-5.6) H Recent Pertinent Medications Recent Pertinent Medications Outpatient Anti-diabetic Regimen: * Amaryl 0.5mg PO daily * Metformin 1,000mg PO BID with meals The patient is currently receiving: * Basal insulin: Lantus 10 units SQ q PM - hold for BSG less than 120mg/dL * Correctional Insulin: Regular Correction per scale AC+HS Goal Range: Low 120 mg/dL - High 140 mg/dL Correction Factor: 30 mg/dL/unit * Prandial insulin: Per carb ratio of 1 unit per 10 grams CHO consumed Risk Factors for Insulin Resistance: * Steroids * Infection * Diet: Continuous Tube feedings --> discontinued 03/06/16 nowo with mechanical soft T2DM/AHA diet Assessment & Plan ASSESSMENT: 03/06/16 * 60yo well controlled T2DM on oral agents as an outpatient. Oral agents held on admission and pt initiated on SQ basal bolus insulin regimen for inpatient use. * BSGs have been near-adequately controlled on correctional/prandial insulin only --> patient would benefit from addition of basal insulin * Continuous tube feedings d/c today. Pt is tolerating PO diet. BSGs should improve with d/c of continuous tube feedings. 03/07/16 * BSGs much improved, either at or below goal today. * will hold basal insulin at this time to prevent hypoglycemia - reinitiate if fasting BSG becomes elevated. * pre-lunch BSG below goal range, however this may be due to the discontinuation of tube feeds and the administration of basal insulin last evening * no change to correction factor or carb ratio. * can see prolonged duration of action with regular insulin - may benefit from NovoLog (shorter acting prandial insulin choice) * May consider the addition of metformin to inpatient regimen if PO intake steady over next 24-48 hours * ADA & AACE recommend a goal blood sugar range 140-180 mg/dl for the majority of critically ill & non-critically ill patients. However, more stringent targets may be selected in individual cases. PLAN FOR INPATIENT GLYCEMIC CONTROL: Continue SQ basal bolus insulin regimen per conservative weight based dosing. * Hold outpatient oral diabetes medications * Hold basal insulin tonight, re-assess in AM * Correctional Insulin with REGULAR per scale AC+HS or Q6hrs while NPO * Goal Range: Low 120 mg/dL - High 140 mg/dL * Correction Factor: 30 mg/dL/unit * Nutritional / Prandial insulin per carb ratio of 1 unit per 10 grams CHO consumed * A1c added to discharge instructions * Please note that the plan above was derived based on current level of insulin resistance and hospital stress. These recommendations are appropriate for inpatient admission only. Plan of care upon discharge will need to be reassessed to avoid potential outpatient hypo/hyperglycemia. Thank you.
--- NOTE | 2016-03-07 19:08 | Progress Note ---
Internal Med Progress Note Date of Service: Mar 07, 2016. Provider Documentation: SUBJECTIVE: RESTING COMFORTABLY EATING OK' STILL WEAK BUT GETTING BETTER STILL HAS HEMATURIA SOB RESOLVED AFEBRILE OBJECTIVE: Vital Signs-as noted below Exam: General-alert and awake Neck-no neck masses Lungs-cta b/l , no wheezing or crackles Heart-s1 and s2 heard regular, no murmurs Abdomen-soft bowel sounds present no distension Extremities-no edema present no erythema Neuro- alert and oriented moves extremities Lab data as noted below. ASSESSMENT & PLAN: 60 year old female with history of COPD, Asthma DM, HTN other problems noted below presenting with increasing shortness of breath.Admitted for asthma exacerbation and required intubation.Currently s/p extubation but verw marquis. Was o NG ube fedings for few days. Having hematuria. seen by urology. Ct abd/pelvis unremarkable. plan for outpatinet cystoscopy. plan: pt/ot and mostly requires placement. Copd/Asthma exacerbation initially required bipap and later intubated currently on iv solumedrol, and inhalers s/p extubation 03/02/16 on nasal canula currently on po prednisone 20mg bid- will slowly taper it bipap prn monitor in pcu stable pt/ot DM holding glimepiride and metformin on iss will closely monitor while on steroids UTI coag neg staph on iv vanco will d/c after tomorrows dose some blood in [place] reculture negative Hematuria gross since 3 days Lovenox stopped monitor hb hb 8.5 today urology consulted and appreciate inputs ct abd/pelvis unremarkable if stable plan for cystoscopy as out aptinet Depression/Anxiety continue home meds appreciate psychiatry inputs Nutrition stopping tube feeds as patient able to take adequately orally. GERD Zantac added ppi Restless leg syndrome on Requip HTN restarted losartan on iv lopressor and iv hydralazine prn will monitor DVT PROPHYLAXIS scds. DISPOSITION Monitor in tele pt/ot may need placement social service for d/c planning Vital Signs: Date Time Temp Pulse Resp B/P Pulse Ox O2 Delivery O2 Flow Rate FiO2 03/07/16 18:54 105 16 97 Room Air 03/07/16 16:00 Room Air 03/07/16 15:36 75 16 95 Room Air 03/07/16 15:06 37.2 103 16 145/79 97 Room Air 03/07/16 12:25 Room Air 03/07/16 11:22 92 16 96 Room Air 03/07/16 11:07 37.2 98 20 161/78 97 Room Air 03/07/16 08:00 36.6 89 22 151/76 100 Room Air 03/07/16 08:00 Room Air 03/07/16 07:05 77 16 95 Room Air 03/07/16 04:15 Room Air 03/07/16 04:10 103 16 96 Room Air 03/07/16 03:42 36.7 97 18 124/68 97 Room Air 03/07/16 00:10 Room Air 03/06/16 23:39 36.8 104 18 136/70 96 Room Air 03/06/16 23:26 87 14 94 Room Air 03/06/16 20:30 97 Room Air 03/06/16 20:09 105 16 97 Room Air Lab Results: Results Past 24 Hours Test 03/06/16 20:24 03/07/16 05:38 03/07/16 06:45 03/07/16 10:00 Range/Units Bedside Glucose 153 136 70-90 mg/dl Creatinine 0.58 0.58 0.60-1.20 mg/dl Est Creatinine Clear Calc Drug Dose 118.4 118.4 ml/min Estimated GFR () 115.3 115.3 Estimated GFR (Non- 99.5 99.5 White Blood Count 9.25 4.8-10.8 K/uL Red Blood Count 3.05 4.2-5.4 M/uL Hemoglobin 8.5 12.0-16.0 g/dL Hematocrit 27.1 37-47 % Mean Corpuscular Volume 88.9 80-100 fL Mean Corpuscular Hemoglobin 27.9 25-34 pg Mean Corpuscular Hemoglobin Concent 31.4 32-36 g/dl Platelet Count 302 130-400 K/uL Mean Platelet Volume 9.3 7.4-10.4 fL Neutrophils (%) (Auto) 67.9 % Lymphocytes (%) (Auto) 22.3 % Monocytes (%) (Auto) 8.1 % Eosinophils (%) (Auto) 0.2 % Basophils (%) (Auto) 0.1 % Neutrophils # (Auto) 6.28 1.4-6.5 K/uL Lymphocytes # (Auto) 2.06 1.2-3.4 K/uL Monocytes # (Auto) 0.75 0.11-0.59 K/uL Eosinophils # (Auto) 0.02 0-0.5 K/uL Basophils # (Auto) 0.01 0-0.2 K/uL RDW Standard Deviation 46.7 36.4-46.3 fL RDW Coefficient of Variation 14.9 11.5-14.5 % Immature Granulocyte % (Auto) 1.4 % Immature Granulocyte # (Auto) 0.13 0.00-0.02 K/uL Nucleated RBC Absolute Count (auto) 0.07 0-0 K/uL Nucleated Red Blood Cells % 0.8 % Sodium Level 146 136-145 mmol/L Potassium Level 4.1 3.5-5.1 mmol/L Chloride Level 110 98-107 mmol/L Carbon Dioxide Level 28 21-32 mmol/L Anion Gap 8.0 3-11 mmol/L Blood Urea Nitrogen 16 7-18 mg/dl BUN/Creatinine Ratio 26.9 10-20 Random Glucose 108 70-99 mg/dl Calcium Level 8.7 8.5-10.1 mg/dl Test 03/07/16 11:03 Range/Units Bedside Glucose 103 70-90 mg/dl
[2016-03-07] MEDS: AMITRIPTYLINE HCL 10 MG TAB PO SCH (21:41)
[2016-03-08] VITALS (15 sets, daily range): BP systolic 135–152; BP diastolic 60–88; PULSE 97–116; TEMP 36.4–37.2; O2SAT 92–100
[2016-03-08] MEDS: ALBUT/IPRATROP 3MG/0.5MG NEB 3 ML VIAL INH SCH ×4 (03:48→15:42)
[2016-03-08] MEDS: ARTIFICIAL TEARS OP SOLN OP SCH ×10 (04:00→20:39)
[2016-03-08] MEDS: LOSARTAN POTASSIUM 25 MG TAB PO SCH (08:42)
[2016-03-08] MEDS: PANTOprazole SOD 40 MG TAB PO SCH (08:42)
[2016-03-08] MEDS: ASPIRIN 81 MG ECTAB PO SCH (08:42)
[2016-03-08] MEDS: GABAPENTIN 100 MG CAP PO SCH ×3 (08:43→20:39)
[2016-03-08] MEDS: PRAMIPEXOLE DIHYDROCHLORIDE 0.5 MG TAB PO SCH ×2 (08:43→20:39)
[2016-03-08] MEDS: CHLORHEXIDINE GLUCONATE 0.12% 480 ML MT SCH ×2 (08:45→21:00)
[2016-03-08] MEDS: BUDESONIDE/FORMOTEROL FUMARATE 160/4.5 60 PUFFS/INHALER INH SCH ×2 (08:45→20:39)
[2016-03-08] MEDS: INSULIN HUMAN REGULAR SC SCH ×4 (08:49→20:47)
[2016-03-08] MEDS: VANCOMYCIN INJ 1,400 MG in SODIUM CHLORIDE 0.9% 250ML 250 ML IV SCH ×2 (08:58→15:36)
[2016-03-08 09:25] LABS: CREATININE 0.55 mg/dl (0.60-1.20)
--- NOTE | 2016-03-08 10:34 | Pulmonology Progress Note ---
Pulmonary Progress Note Date of Service Mar 08, 2016. Attending Irma Subjective Feeling improved today particularly with regard to energy and dyspnea. Reports "coughed all night". Dry in nature. Improvement with nebulizers. No wheeze or GI symptoms. Appetite in-tact. Anticipating visit from PT today. Objective Patient admitted with exacerbation ACOS/emphysema requiring intubation 02/24/16 - 12/31/2016 and complex UTI. Course complicated by myopathy post extubation. 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 Sitting up in hospital bed. No acute distress Head: + facial symmetry Eyes: EOMi, PERRLA, no injection Mouth: Moist mucous membranes. Mallmepatti III/IV. Dentures in place. No erythema or exudate Respiratory: non-labored respirations. Diminished BS throughout. No audible wheeze. CV: RRR, no MRG. Warm and perfused peripherally MSK/Extremities: moving and developed symmetrically. No peripheral edema Neurologic: A&O x PPT, some difficulty with data recall. Appropriate affect. Assessment & Plan 60-yo female with h/o ACOS/emphysema admitted with COPD exacerbation and complicated UTI. Clinically improving. 1. Continue Bronchodilators, Symbicort (in place of JEWEL SORTER Breo 200/25) and restart Spiriva today 2. PSG in 2012 was negative however patient reports significant weight gain over the past 3-years, nocturnal oximetry study tonight and consider repeat testing as outpatient. 3. Stable on prednisone 40mg. Would recommend very slow taper decreasing by 5mg every 3-5 days. Data Medications: Current Inpatient Medications Medications (Trade) Dose Ordered Sig/Allison Route Start Time Stop Time Status Last Admin Dose Admin Ondansetron HCl (Zofran Inj) 4 mg Q6H PRN IV 02/22/16 02:15 03/23/16 02:14 Glucose (Glucose 40% Gel) 15-30 GRAMS 15 GRAMS... UD PRN PO 02/22/16 02:15 03/23/16 02:14 Glucose (Glucose Chew Tab) 4-8 Tablets 4 Tabl... UD PRN PO 02/22/16 02:15 03/23/16 02:14 Dextrose (Dextrose 50% 50ML Syringe) 25-50ML OF 50% DW IV FOR... UD PRN IV 02/22/16 02:15 03/23/16 02:14 Glucagon (Glucagon Inj) 1 mg UD PRN SQ 02/22/16 02:15 03/23/16 02:14 Miscellaneous Information (Consult Glycemic Management Pharmacy) 1 ea UD PRN N/A 02/22/16 02:45 03/23/16 02:44 Atorvastatin Calcium (Lipitor Tab) 10 mg QAM PO 02/22/16 09:00 03/23/16 08:59 Future Hold 03/04/16 07:46 10 MG Miscellaneous Information (Order Awaiting Action) 1 ea QS N/A 02/22/16 05:30 03/23/16 05:29 Budesonide/ Formoterol Fumarate (Symbicort 160/ 4.5 Inh) 2 puffs BID INH 02/22/16 21:00 03/23/16 20:59 03/08/16 08:45 2 PUFFS Chlorhexidine Gluconate (Peridex Oral Soln) 15 ml BID MT 02/24/16 21:00 03/25/16 20:59 03/08/16 08:45 15 ML Albuterol (Ventolin Hfa Inhaler) 4 puffs Q2R PRN INH 02/25/16 10:45 03/26/16 10:44 Artificial Tears (Artificial Tears) 2 drops Q4H OP 02/27/16 16:00 03/28/16 15:59 03/08/16 08:46 2 DROPS Metoprolol Tartrate (Lopressor Iv) 5 mg Q6 PRN IV 02/27/16 18:00 03/28/16 17:59 03/05/16 15:34 5 MG Pramipexole Dihydrochloride (miraPEX TAB) 0.25 mg BID PO 02/28/16 09:00 03/29/16 08:59 03/08/16 08:43 0.25 MG Labetalol HCl (Normodyne IV) 20 mg Q1H PRN IV 02/28/16 10:00 03/29/16 09:59 03/01/16 11:47 20 MG Vancomycin HCl (Consult) 1 ea UD PRN N/A 02/28/16 12:00 03/08/16 23:59 Hydralazine HCl (HydrALAZINE INJ) 10 mg Q6H PRN IV. 02/29/16 12:45 03/30/16 12:44 03/05/16 13:17 10 MG Heparin Sodium (Porcine) (Heparin 10 Unit/ ml 5 ml Flush) 5 ml PRN PRN FLUSH 03/02/16 10:00 04/01/16 09:59 03/08/16 05:08 5 ML Albuterol/ Ipratropium 3 ml 3 ml Q4R INH 03/02/16 16:00 04/01/16 15:59 03/08/16 07:22 3 ML Vancomycin HCl/ Sodium Chloride (Vancomycin Inj/ Nss 250ml) 278 ml @ 125 mls/hr Q8H IV 03/04/16 16:00 03/08/16 23:59 Future hold 03/08/16 08:58 125 MLS/HR Prednisone (PredniSONE TAB) 20 mg BID PO 03/04/16 21:00 04/03/16 20:59 03/08/16 08:42 20 MG Menthol (Nice Von) 1 von PRN PRN PO 03/05/16 18:30 04/04/16 18:29 Losartan Potassium (coZAAR TAB) 25 mg QAM PO 03/06/16 09:00 04/05/16 08:59 03/08/16 08:42 25 MG Cyclobenzaprine HCl (Flexeril Tab) 10 mg BID PRN PO 03/06/16 10:30 04/05/16 10:29 Furosemide (Lasix tab) 20 mg QAM PRN PO 03/06/16 10:30 04/05/16 10:29 Amitriptyline HCl (Elavil Tab) 10 mg HS PO 03/06/16 21:00 04/05/16 20:59 03/07/16 21:41 10 MG Insulin Human Regular (novoLIN-R) SLIDING SCALE If C... ACHS SC 03/06/16 16:15 04/05/16 16:14 03/08/16 08:49 5 UNITS Insulin Glargine (Lantus Solostar Pen) 10 unit HS SC 03/06/16 17:00 04/05/16 16:59 Future Hold 03/06/16 17:11 10 UNIT Acetaminophen (Tylenol Tab) 650 mg Q4H PRN PO 03/07/16 08:45 04/06/16 08:44 Aspirin (Ecotrin Tab) 81 mg QAM PO 03/07/16 09:00 04/06/16 08:59 03/08/16 08:42 81 MG Pantoprazole Sodium (Protonix Tab) 40 mg QAM PO 03/07/16 09:00 04/06/16 08:59 03/08/16 08:42 40 MG Gabapentin (Neurontin Cap) 100 mg TID PO 03/07/16 09:00 04/06/16 08:59 03/08/16 08:43 100 MG I & O: 24-Hour Column 03/08/16 08:00 Intake Total 1255 ml Output Total 1700 ml Balance -445 ml Vital Signs: Date Time Temp Pulse Resp B/P Pulse Ox O2 Delivery O2 Flow Rate FiO2 03/08/16 08:00 Room Air 03/08/16 07:40 36.9 102 18 143/88 94 Room Air 03/08/16 07:22 103 16 96 Room Air 03/08/16 04:00 95 Room Air 03/08/16 04:00 36.9 105 22 146/74 96 Room Air 03/08/16 03:48 105 16 92 Room Air 03/08/16 00:10 94 Room Air 03/08/16 00:10 37.2 116 18 137/60 94 Room Air 03/07/16 23:32 128 16 94 Room Air 03/07/16 20:30 94 Room Air 03/07/16 19:11 36.4 105 18 139/83 94 Room Air 03/07/16 18:54 105 16 97 Room Air 03/07/16 16:00 Room Air 03/07/16 15:36 75 16 95 Room Air 03/07/16 15:06 37.2 103 16 145/79 97 Room Air 03/07/16 12:25 Room Air 03/07/16 11:22 92 16 96 Room Air 03/07/16 11:07 37.2 98 20 161/78 97 Room Air Laboratory Results: Last 24 Hours Test 03/07/16 11:03 03/07/16 15:59 03/07/16 20:17 03/08/16 06:44 Bedside Glucose 103 mg/dl 115 mg/dl 170 mg/dl 183 mg/dl Test 03/08/16 08:41 Creatinine 0.55 mg/dl Est Creatinine Clear Calc Drug Dose 125.2 ml/min Estimated GFR () 117.3 Estimated GFR (Non- 101.2
[2016-03-08] MEDS ORDERED: TIOTROPIUM BROMIDE 5 PUFF/90 MCG INH INH SCH (16:00)
--- NOTE | 2016-03-08 16:44 | Progress Note ---
Internal Med Progress Note Date of Service: Mar 08, 2016. Provider Documentation: SUBJECTIVE: sitting on chair , in room air no complain of SOB , no wheeze has non productive cough , no fever or chills still very weak and tired , needs 2 person assist to transfer Hematuria improving OBJECTIVE: Vital Signs-as noted below Exam: General-very pleasant, no sign of distress Neck-no neck masses, no thyromegaly,trachea midline Lungs-cta b/l , no wheezing or crackles Heart-s1 and s2 heard regular, no murmurs, no lower ext edema, no JVD Abdomen-soft bowel sounds present no distension Extremities-no rash or deformity Neuro- alert and oriented, no focal neurological deficit moves extremities Lab data as noted below. ASSESSMENT & PLAN: 60 year old female with history of COPD, Asthma DM, HTN ACUTE HYPOXEMIC RESPIRATORY FAILURE : due to COPD /asthma exacerbation initially required bipap and later intubated- respiratory status improved to baseline s/p extubation 03/02/16 not requiring supplemental 02 currently on po prednisone 20mg bid- will need slow taper no audible wheeze , changed Neb tx to PRN PT/OT eval requested for significant decline in functional status stable to be transferred to Medical floor DM holding glimepiride and metformin-due to acute illness cont insulin SSI UTI urine culture coag neg staph on iv vanco ( ist dose on 02/28/16 ) repeat culture no growth d/c vancomycin HEMATURIA improved urology consulted and appreciate inputs-hematuria possible due to UTI , bladder irritation due to [place] ct abd/pelvis unremarkable D/c [place] Hold Aspirin Plan for cystoscopy as out patient DEPRESSION /ANXIETY DISORDER continue home meds appreciate psychiatry inputs Restless leg syndrome on Requip HTN Cont Losartan DVT PROPHYLAXIS scds. avoid anticoagulants due to Hematuria DISPOSITION PT/OT will need SNF -significant decline in functional status referral made to [facility] and [facility] Vital Signs: Date Time Temp Pulse Resp B/P Pulse Ox O2 Delivery O2 Flow Rate FiO2 03/08/16 16:57 36.4 114 16 100 2.0 03/08/16 16:00 Room Air 03/08/16 16:00 114 03/08/16 15:40 107 16 100 Room Air 03/08/16 15:39 36.4 107 18 146/82 100 Room Air 03/08/16 12:37 Room Air 03/08/16 11:38 36.7 99 16 151/82 97 Room Air 03/08/16 11:24 97 16 98 Room Air 03/08/16 08:00 Room Air 03/08/16 07:40 36.9 102 18 143/88 94 Room Air 03/08/16 07:22 103 16 96 Room Air 03/08/16 04:00 95 Room Air 03/08/16 04:00 36.9 105 22 146/74 96 Room Air 03/08/16 03:48 105 16 92 Room Air 03/08/16 00:10 94 Room Air 03/08/16 00:10 37.2 116 18 137/60 94 Room Air 03/07/16 23:32 128 16 94 Room Air 03/07/16 20:30 94 Room Air 03/07/16 19:11 36.4 105 18 139/83 94 Room Air 03/07/16 18:54 105 16 97 Room Air Lab Results: Results Past 24 Hours Test 03/07/16 20:17 03/08/16 06:44 03/08/16 08:41 03/08/16 10:54 Range/Units Bedside Glucose 170 183 171 70-90 mg/dl Creatinine 0.55 0.60-1.20 mg/dl Est Creatinine Clear Calc Drug Dose 125.2 ml/min Estimated GFR () 117.3 Estimated GFR (Non- 101.2 Test 03/08/16 15:43 Range/Units Bedside Glucose 142 70-90 mg/dl
[2016-03-08] MEDS ORDERED: GUAIFENESIN/CODEINE 200MG/20MG 10ML UDC PO PRN (17:45)
[2016-03-08] MEDS ORDERED: GUAIFENESIN SUGAR FREE 100 MG/5 ML UDC PO PRN (17:45)
[2016-03-08] MEDS ORDERED: ALBUT/IPRATROP 3MG/0.5MG NEB 3 ML VIAL INH PRN (20:00)
[2016-03-08] MEDS: AMITRIPTYLINE HCL 10 MG TAB PO SCH (20:39)
[2016-03-09] MEDS: ARTIFICIAL TEARS OP SOLN OP SCH ×14 (04:00→23:26)
[2016-03-09 07:02] VITALS: BP 116/69; PULSE 89; TEMP 36.5; O2SAT 96
[2016-03-09] MEDS: BUDESONIDE/FORMOTEROL FUMARATE 160/4.5 60 PUFFS/INHALER INH SCH ×2 (07:41→20:51)
[2016-03-09] MEDS: LOSARTAN POTASSIUM 25 MG TAB PO SCH (07:43)
[2016-03-09] MEDS: GABAPENTIN 100 MG CAP PO SCH ×3 (07:44→20:49)
[2016-03-09] MEDS: PANTOprazole SOD 40 MG TAB PO SCH (07:45)
[2016-03-09] MEDS: PRAMIPEXOLE DIHYDROCHLORIDE 0.5 MG TAB PO SCH ×2 (07:45→20:49)
[2016-03-09] MEDS: CHLORHEXIDINE GLUCONATE 0.12% 480 ML MT SCH ×2 (07:49→20:51)
[2016-03-09] MEDS: INSULIN HUMAN REGULAR SC SCH ×4 (08:47→20:50)
[2016-03-09 08:53] LABS: HEMATOCRIT 26.1 % (37-47); MEAN CELL VOLUME 88.5 fL (80-100); MEAN CORPUSCULAR HEMOGLOBIN 27.8 pg (25-34); MEAN CORPUSCULAR HGB CONC 31.4 g/dl (32-36); MEAN PLATELET VOLUME 9.3 fL (7.4-10.4); PLATELET COUNT 305 K/uL (130-400); RED BLOOD COUNT 2.95 M/uL (4.2-5.4); WHITE BLOOD COUNT 7.47 K/uL (4.8-10.8)
[2016-03-09 11:32] VITALS: PULSE 93; O2SAT 95
--- NOTE | 2016-03-09 13:18 | Pulmonology Progress Note ---
Pulmonary Progress Note Date of Service Mar 09, 2016. Attending Dr. 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 Mallmepatti III/IV. Dentures in place. No erythema or exudate Respiratory: No signs of accessory muscle use, mildly decreased breath sounds bilaterally CV: RRR, no MRG. MSK/Extremities: No peripheral edema noted Neurologic: A&O3 Assessment & Plan 60-yo female with h/o ACOS/emphysema admitted with COPD exacerbation and complicated UTI. Clinically improving. 1. ACOS: Continue steroid taper, continue Symbicort 160/4.5, continue duo nebs, we will initiate Spiriva this patient shows signs of fixed obstruction on pulmonary function tests 09/27/2010 2. PSG in 2012 was negative however patient reports significant weight gain over the past 3-years: Need to get patient set up with Dr. Swapnil hernandez from the sleep clinic and repeat PSG Data Medications: Current Inpatient Medications Medications (Trade) Dose Ordered Sig/Allison Route Start Time Stop Time Status Last Admin Dose Admin Ondansetron HCl (Zofran Inj) 4 mg Q6H PRN IV 02/22/16 02:15 03/23/16 02:14 Glucose (Glucose 40% Gel) 15-30 GRAMS 15 GRAMS... UD PRN PO 02/22/16 02:15 03/23/16 02:14 Glucose (Glucose Chew Tab) 4-8 Tablets 4 Tabl... UD PRN PO 02/22/16 02:15 03/23/16 02:14 Dextrose (Dextrose 50% 50ML Syringe) 25-50ML OF 50% DW IV FOR... UD PRN IV 02/22/16 02:15 03/23/16 02:14 Glucagon (Glucagon Inj) 1 mg UD PRN SQ 02/22/16 02:15 03/23/16 02:14 Miscellaneous Information (Consult Glycemic Management Pharmacy) 1 ea UD PRN N/A 02/22/16 02:45 03/23/16 02:44 Atorvastatin Calcium (Lipitor Tab) 10 mg QAM PO 02/22/16 09:00 03/23/16 08:59 Future Hold 03/04/16 07:46 10 MG Miscellaneous Information (Order Awaiting Action) 1 ea QS N/A 02/22/16 05:30 03/23/16 05:29 Budesonide/ Formoterol Fumarate (Symbicort 160/ 4.5 Inh) 2 puffs BID INH 02/22/16 21:00 03/23/16 20:59 03/09/16 07:41 2 PUFFS Chlorhexidine Gluconate (Peridex Oral Soln) 15 ml BID MT 02/24/16 21:00 03/25/16 20:59 03/08/16 08:45 15 ML Artificial Tears (Artificial Tears) 2 drops Q4H OP 02/27/16 16:00 03/28/16 15:59 03/09/16 07:49 2 DROPS Pramipexole Dihydrochloride (miraPEX TAB) 0.25 mg BID PO 02/28/16 09:00 03/29/16 08:59 03/09/16 07:45 0.25 MG Labetalol HCl (Normodyne IV) 20 mg Q1H PRN IV 02/28/16 10:00 03/29/16 09:59 03/01/16 11:47 20 MG Hydralazine HCl (HydrALAZINE INJ) 10 mg Q6H PRN IV. 02/29/16 12:45 03/30/16 12:44 03/05/16 13:17 10 MG Heparin Sodium (Porcine) (Heparin 10 Unit/ ml 5 ml Flush) 5 ml PRN PRN FLUSH 03/02/16 10:00 04/01/16 09:59 03/09/16 08:19 5 ML Prednisone (PredniSONE TAB) 20 mg BID PO 03/04/16 21:00 04/03/16 20:59 03/09/16 07:43 20 MG Menthol (Nice Von) 1 von PRN PRN PO 03/05/16 18:30 04/04/16 18:29 Losartan Potassium (coZAAR TAB) 25 mg QAM PO 03/06/16 09:00 04/05/16 08:59 03/09/16 07:43 25 MG Cyclobenzaprine HCl (Flexeril Tab) 10 mg BID PRN PO 03/06/16 10:30 04/05/16 10:29 Furosemide (Lasix tab) 20 mg QAM PRN PO 03/06/16 10:30 04/05/16 10:29 Amitriptyline HCl (Elavil Tab) 10 mg HS PO 03/06/16 21:00 04/05/16 20:59 03/08/16 20:39 10 MG Insulin Human Regular (novoLIN-R) SLIDING SCALE If C... ACHS SC 03/06/16 16:15 04/05/16 16:14 03/09/16 08:47 3 UNITS Acetaminophen (Tylenol Tab) 650 mg Q4H PRN PO 03/07/16 08:45 04/06/16 08:44 Pantoprazole Sodium (Protonix Tab) 40 mg QAM PO 03/07/16 09:00 04/06/16 08:59 03/09/16 07:45 40 MG Gabapentin (Neurontin Cap) 100 mg TID PO 03/07/16 09:00 04/06/16 08:59 03/09/16 07:44 100 MG Albuterol/ Ipratropium (Duoneb) 3 ml Q4R PRN INH 03/08/16 20:00 04/07/16 19:59 03/08/16 23:10 3 ML Guaifenesin (Robitussin Sugar Free Syrup) 5 mg Q6H PRN PO 03/08/16 17:45 04/07/16 17:44 I & O: 24-Hour Column 03/09/16 08:00 Intake Total 890 ml Output Total 900 ml Balance -10 ml Vital Signs: Date Time Temp Pulse Resp B/P Pulse Ox O2 Delivery O2 Flow Rate FiO2 03/09/16 11:32 93 18 95 Room Air 03/09/16 08:00 Room Air 03/09/16 07:02 36.5 89 20 116/69 96 Room Air 03/09/16 00:00 Room Air 03/08/16 22:54 36.9 109 20 135/80 96 Room Air 03/08/16 19:46 97 Room Air 03/08/16 19:40 103 18 100 Room Air 03/08/16 19:05 36.7 112 18 152/79 97 Room Air 03/08/16 16:57 36.4 114 16 100 2.0 03/08/16 16:00 Room Air 03/08/16 16:00 114 03/08/16 15:40 107 16 100 Room Air 03/08/16 15:39 36.4 107 18 146/82 100 Room Air Laboratory Results: Last 24 Hours Test 03/08/16 15:43 03/08/16 20:03 03/09/16 07:55 03/09/16 08:16 Bedside Glucose 142 mg/dl 126 mg/dl 132 mg/dl White Blood Count 7.47 K/uL Red Blood Count 2.95 M/uL Hemoglobin 8.2 g/dL Hematocrit 26.1 % Mean Corpuscular Volume 88.5 fL Mean Corpuscular Hemoglobin 27.8 pg Mean Corpuscular Hemoglobin Concent 31.4 g/dl RDW Standard Deviation 47.8 fL RDW Coefficient of Variation 15.1 % Platelet Count 305 K/uL Mean Platelet Volume 9.3 fL Nucleated RBC Absolute Count (auto) 0.08 K/uL Nucleated Red Blood Cells % 1.0 % Test 03/09/16 11:34 Bedside Glucose 178 mg/dl
[2016-03-09] MEDS ORDERED: PRED20TA2 PO (14:01)
--- NOTE | 2016-03-09 14:02 | Discharge Instructions ---
Discharge Instructions Admission Reason for Admission: Copd Exacerbation Discharge Discharge Diagnosis / Problem: acute hypoxemic respiratory failure /COPD exacerbation /HEMATURIA /ANEMIA Discharge Goals Goal(s): Increase independence, Improve disease control, Therapeutic intervention Activity Recommendations Activity Level: Assistance Required Therapies: Physical Therapy, Occupational Therapy . Additional Information Patient informed of condition: Yes Advance Directives: No DNR: No Level of Care: Acute Rehab Communicable Disease: No Prognosis: Stable [place] Catheter: No Current Hospital Diet Patient's current hospital diet: Diabetes Type 2 Diet, AHA Diet (Heart Healthy) Discharge Diet Recommended Diet: AHA Diet (Heart Healthy), Diabetes Type 2 Diet Pending Studies Studies pending at discharge: yes List of pending studies: LAB WORK : CBC ON Monday03/14/16 OUT PATIENT CYSTOSCOPY IN 3-4 WEEKS WITH UROLOGY IN [facility] PLEASE CALL TO SCHEDULE APPOINTMENT Laboratory Results Hemoglobin A1c Test 02/23/16 05:32 Range/Units Estimated Average Glucose 146 mg/dl Hemoglobin A1c 6.7 H 4.5-5.6 % Medical Emergencies . Who to Call and When: Medical Emergencies: If at any time you feel your situation is an emergency, please call 911 immediately. . Non-Emergent Contact Non-Emergency issues call your: Primary Care Provider . . "Provider Documentation" section prepared by Laurel Mabry. Core Measure Problem Core Measures: None
--- NOTE | 2016-03-09 15:37 | Pharmacy Progress Note ---
Glycemic: Assessment & Plan Date of Service Mar 09, 2016. Assessment & Plan The patient is currently receiving 14-20 units of insulin per day. BSGs ranging 126-178 mg/dl over the past 24hrs. Vancomycin IV dc'd. Still on prednisone 20 mg bid. * Basal insulin: none at this time * Correctional Insulin: Novolog Correction per scale ACHS Goal Range: Low 120 mg/dL - High 140 mg/dL Correction Factor: 30 mg/dL/unit * Prandial insulin: Per carb ratio of 1 unit per 8 grams CHO consumed BSGs continue to improve, no changes needed to inpatient regimen at this time. Pharmacy will continue to monitor patient daily and write orders per [facility] inpatient glycemic control protocol. Thanks. * Please note that the plan above was derived based on current level of insulin resistance and hospital stress. These recommendations are appropriate for inpatient admission only. Plan of care upon discharge will need to be reassessed to avoid potential outpatient hypo/hyperglycemia.
[2016-03-09 16:00] VITALS: O2SAT 95
[2016-03-09 16:34] VITALS: BP 147/83; PULSE 118; TEMP 36.7; O2SAT 97
--- NOTE | 2016-03-09 17:52 | Progress Note ---
Internal Med Progress Note Date of Service: Mar 09, 2016. Provider Documentation: SUBJECTIVE: continues to feel better no complain of SOB or wheeze has persisted ALDRIDGE , generalized weakness OBJECTIVE: Vital Signs-as noted below Exam: General-very pleasant, no sign of distress Neck-no neck masses, no thyromegaly,trachea midline Lungs-cta b/l , no wheezing or crackles Heart-s1 and s2 heard regular, no murmurs, no lower ext edema, no JVD Abdomen-soft bowel sounds present no distension Extremities-no rash or deformity Neuro- alert and oriented, no focal neurological deficit moves extremities Lab data as noted below. ASSESSMENT & PLAN: 60 year old female with history of COPD, Asthma DM, HTN ACUTE HYPOXEMIC RESPIRATORY FAILURE : resolved, respiratory status improved to baseline due to COPD /asthma exacerbation initially required bipap and later intubated- respiratory status improved to baseline s/p extubation 03/02/16 not requiring supplemental 02 currently on po prednisone 20mg bid- will need slow taper no audible wheeze , changed Neb tx to PRN PT/OT eval requested for significant decline in functional status will benefit with SNF DM holding glimepiride and metformin-due to acute illness can be resumed on transfer cont insulin SSI UTI urine culture coag neg staph was on iv vanco ( ist dose on 02/28/16 ) repeat culture no growth d/c vancomycin HEMATURIA improved H&H stable urology consulted and appreciate inputs-hematuria possible due to UTI , bladder irritation due to [place] ct abd/pelvis unremarkable D/c [place] Hold Aspirin Plan for cystoscopy as out patient DEPRESSION /ANXIETY DISORDER continue home meds appreciate psychiatry inputs Restless leg syndrome on Requip HTN Cont Losartan DVT PROPHYLAXIS scds. avoid anticoagulants due to Hematuria DISPOSITION PT/OT eval requested will need SNF -significant decline in functional status referral made to [facility] and [facility] Medically stable to be transferred as insurance approval available Vital Signs: Date Time Temp Pulse Resp B/P Pulse Ox O2 Delivery O2 Flow Rate FiO2 03/09/16 16:34 36.7 118 18 147/83 97 Room Air 03/09/16 16:00 95 Room Air 03/09/16 11:32 93 18 95 Room Air 03/09/16 08:00 Room Air 03/09/16 07:02 36.5 89 20 116/69 96 Room Air 03/09/16 00:00 Room Air 03/08/16 22:54 36.9 109 20 135/80 96 Room Air 03/08/16 19:46 97 Room Air 03/08/16 19:40 103 18 100 Room Air 03/08/16 19:05 36.7 112 18 152/79 97 Room Air Lab Results: Results Past 24 Hours Test 03/08/16 20:03 03/09/16 07:55 03/09/16 08:16 03/09/16 11:34 Range/Units Bedside Glucose 126 132 178 70-90 mg/dl White Blood Count 7.47 4.8-10.8 K/uL Red Blood Count 2.95 4.2-5.4 M/uL Hemoglobin 8.2 12.0-16.0 g/dL Hematocrit 26.1 37-47 % Mean Corpuscular Volume 88.5 80-100 fL Mean Corpuscular Hemoglobin 27.8 25-34 pg Mean Corpuscular Hemoglobin Concent 31.4 32-36 g/dl RDW Standard Deviation 47.8 36.4-46.3 fL RDW Coefficient of Variation 15.1 11.5-14.5 % Platelet Count 305 130-400 K/uL Mean Platelet Volume 9.3 7.4-10.4 fL Nucleated RBC Absolute Count (auto) 0.08 0-0 K/uL Nucleated Red Blood Cells % 1.0 % Test 03/09/16 16:31 Range/Units Bedside Glucose 250 70-90 mg/dl
[2016-03-09] MEDS: AMITRIPTYLINE HCL 10 MG TAB PO SCH (20:50)
[2016-03-10] VITALS: BP 139/78; PULSE 107; TEMP 36.9; O2SAT 97
[2016-03-10] MEDS: ARTIFICIAL TEARS OP SOLN OP SCH ×6 (04:00→12:00)
[2016-03-10 05:54] LABS: HEMATOCRIT 25.2 % (37-47); MEAN CELL VOLUME 87.8 fL (80-100); MEAN CORPUSCULAR HEMOGLOBIN 27.5 pg (25-34); MEAN CORPUSCULAR HGB CONC 31.3 g/dl (32-36); MEAN PLATELET VOLUME 8.7 fL (7.4-10.4); PLATELET COUNT 281 K/uL (130-400); RED BLOOD COUNT 2.87 M/uL (4.2-5.4); WHITE BLOOD COUNT 7.03 K/uL (4.8-10.8)
[2016-03-10 07:50] VITALS: BP 147/84; PULSE 98; TEMP 36.4; O2SAT 97
[2016-03-10] MEDS: BUDESONIDE/FORMOTEROL FUMARATE 160/4.5 60 PUFFS/INHALER INH SCH (08:36)
[2016-03-10] MEDS: LOSARTAN POTASSIUM 25 MG TAB PO SCH (08:37)
[2016-03-10] MEDS: GABAPENTIN 100 MG CAP PO SCH (08:37)
[2016-03-10] MEDS: PRAMIPEXOLE DIHYDROCHLORIDE 0.5 MG TAB PO SCH (08:38)
[2016-03-10] MEDS: PANTOprazole SOD 40 MG TAB PO SCH (08:38)
[2016-03-10] MEDS: CHLORHEXIDINE GLUCONATE 0.12% 480 ML MT SCH (08:39)
[2016-03-10] MEDS: INSULIN HUMAN REGULAR SC SCH ×2 (09:16→12:34)
--- NOTE | 2016-03-10 10:25 | Pulmonology Progress Note ---
Pulmonary Progress Note Date of Service Mar 10, 2016. Attending olamide Subjective Reports she is breathing comfortably. Cough improving - non-productive. Some residual pharyngitis. Appetite is in-tact. Remains weak and unstable with any ambulation and hesitant to move about the room. Objective Patient admitted with exacerbation ACOS/emphysema requiring ICU admission and intubation/MV 02/24/16- 12/31/2016 and complex UTI. Hospital course complicated by myopathy post-extubation. 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 Lights off. HEENT: + facial symmetry. Mouth: Moist mucous membranes. Mallmepatti III/IV. Dentures in place. No erythema or exudate Respiratory: No signs of accessory muscle use, equal but decreased breath sounds throughout CV: Rapid rate, regular rhythm, no MRG. Warm and perfused peripherally with +2 DP bilaterally MSK/Extremities: + SCDs in place, No peripheral edema noted Neurologic: A&O3, answering questions and following commands appropriately. Assessment & Plan 60-yo female with h/o ACOS/emphysema admitted with COPD exacerbation and complicated UTI. Clinically improving with discharge/placement pending 1. ACOS: Continue Symbicort 160/4.5, 40mg prednisone and Duo-nebs - Discharge back to her COSMETIC SURGEON: Breo 200/25, Spiriva 2.5 Respimat adn Q6-hour duo- nebs and slow steroid taper (reduce by 5mg Q 3-days and hold at 10mg until outpatient pulmonary follow-up) - F/U with pulmonary in 2-4 weeks post-discharge 2. Nocturnal Hypoxemia: resolved on overnight pulse-oximetry: - Follow-up in sleep lab in 4-6 weeks Data Medications: Current Inpatient Medications Medications (Trade) Dose Ordered Sig/Allison Route Start Time Stop Time Status Last Admin Dose Admin Ondansetron HCl (Zofran Inj) 4 mg Q6H PRN IV 12/26/16 02:15 03/23/16 02:14 Glucose (Glucose 40% Gel) 15-30 GRAMS 15 GRAMS... UD PRN PO 02/22/16 02:15 03/23/16 02:14 Glucose (Glucose Chew Tab) 4-8 Tablets 4 Tabl... UD PRN PO 02/22/16 02:15 03/23/16 02:14 Dextrose (Dextrose 50% 50ML Syringe) 25-50ML OF 50% DW IV FOR... UD PRN IV 02/22/16 02:15 03/23/16 02:14 Glucagon (Glucagon Inj) 1 mg UD PRN SQ 02/22/16 02:15 03/23/16 02:14 Miscellaneous Information (Consult Glycemic Management Pharmacy) 1 ea UD PRN N/A 02/22/16 02:45 03/23/16 02:44 Atorvastatin Calcium (Lipitor Tab) 10 mg QAM PO 02/22/16 09:00 03/23/16 08:59 Future Hold 03/04/16 07:46 10 MG Miscellaneous Information (Order Awaiting Action) 1 ea QS N/A 02/22/16 05:30 03/23/16 05:29 Budesonide/ Formoterol Fumarate (Symbicort 160/ 4.5 Inh) 2 puffs BID INH 02/22/16 21:00 03/23/16 20:59 03/10/16 08:36 2 PUFFS Chlorhexidine Gluconate (Peridex Oral Soln) 15 ml BID MT 02/24/16 21:00 03/25/16 20:59 03/08/16 08:45 15 ML Artificial Tears (Artificial Tears) 2 drops Q4H OP 02/27/16 16:00 03/28/16 15:59 03/10/16 09:17 2 DROPS Pramipexole Dihydrochloride (miraPEX TAB) 0.25 mg BID PO 02/28/16 09:00 03/29/16 08:59 03/10/16 08:38 0.25 MG Labetalol HCl (Normodyne IV) 20 mg Q1H PRN IV 02/28/16 10:00 03/29/16 09:59 03/01/16 11:47 20 MG Hydralazine HCl (HydrALAZINE INJ) 10 mg Q6H PRN IV. 02/29/16 12:45 03/30/16 12:44 03/05/16 13:17 10 MG Heparin Sodium (Porcine) (Heparin 10 Unit/ ml 5 ml Flush) 5 ml PRN PRN FLUSH 03/02/16 10:00 04/01/16 09:59 03/10/16 05:37 5 ML Prednisone (PredniSONE TAB) 20 mg BID PO 03/04/16 21:00 04/03/16 20:59 03/10/16 08:37 20 MG Menthol (Nice Von) 1 von PRN PRN PO 03/05/16 18:30 04/04/16 18:29 Losartan Potassium (coZAAR TAB) 25 mg QAM PO 03/06/16 09:00 04/05/16 08:59 03/10/16 08:37 25 MG Cyclobenzaprine HCl (Flexeril Tab) 10 mg BID PRN PO 03/06/16 10:30 04/05/16 10:29 Furosemide (Lasix tab) 20 mg QAM PRN PO 03/06/16 10:30 04/05/16 10:29 Amitriptyline HCl (Elavil Tab) 10 mg HS PO 03/06/16 21:00 04/05/16 20:59 03/09/16 20:50 10 MG Insulin Human Regular (novoLIN-R) SLIDING SCALE If C... ACHS SC 03/06/16 16:15 04/05/16 16:14 03/10/16 09:16 4 UNITS Acetaminophen (Tylenol Tab) 650 mg Q4H PRN PO 03/07/16 08:45 04/06/16 08:44 Pantoprazole Sodium (Protonix Tab) 40 mg QAM PO 03/07/16 09:00 04/06/16 08:59 03/10/16 08:38 40 MG Gabapentin (Neurontin Cap) 100 mg TID PO 03/07/16 09:00 04/06/16 08:59 03/10/16 08:37 100 MG Albuterol/ Ipratropium (Duoneb) 3 ml Q4R PRN INH 03/08/16 20:00 04/07/16 19:59 03/08/16 23:10 3 ML Guaifenesin (Robitussin Sugar Free Syrup) 5 mg Q6H PRN PO 03/08/16 17:45 04/07/16 17:44 I & O: 24-Hour Column 03/10/16 08:00 Intake Total 880 ml Output Total 550 ml Balance 330 ml Vital Signs: Date Time Temp Pulse Resp B/P Pulse Ox O2 Delivery O2 Flow Rate FiO2 03/10/16 07:50 36.4 98 18 147/84 97 Room Air 03/10/16 00:00 36.9 107 16 139/78 97 Room Air 03/10/16 00:00 Room Air 03/09/16 16:34 36.7 118 18 147/83 97 Room Air 03/09/16 16:00 95 Room Air 03/09/16 11:32 93 18 95 Room Air Laboratory Results: Last 24 Hours Test 03/09/16 11:34 03/09/16 16:31 03/09/16 20:40 03/10/16 05:33 Bedside Glucose 178 mg/dl 250 mg/dl 160 mg/dl White Blood Count 7.03 K/uL Red Blood Count 2.87 M/uL Hemoglobin 7.9 g/dL Hematocrit 25.2 % Mean Corpuscular Volume 87.8 fL Mean Corpuscular Hemoglobin 27.5 pg Mean Corpuscular Hemoglobin Concent 31.3 g/dl RDW Standard Deviation 48.0 fL RDW Coefficient of Variation 15.3 % Platelet Count 281 K/uL Mean Platelet Volume 8.7 fL Nucleated RBC Absolute Count (auto) 0.07 K/uL Nucleated Red Blood Cells % 1.0 % Test 03/10/16 07:17 Bedside Glucose 134 mg/dl
[2016-03-10] MEDS ORDERED: CPC PO (11:21)
[2016-03-10] MEDS ORDERED: FRRS300 PO (11:21)
[2016-03-10] MEDS ORDERED: HYDR-5688 PO (11:21)
--- NOTE | 2016-03-10 11:35 | Progress Note ---
Progress Note ATTENDING NOTE ; pt is accepted for SNF at [facility] noted Hb 7.9 in AM lab no indication for transfusion increased Fe supplement to BID repeat CBC on next week Monday03/14/16 no Aspirin or anticoagulations out pt follow up with Urology for Cystoscopy -Re: evaluation of hematuria medically stable to be discharged
[2016-03-10 12:02] VITALS: BP 147/84; PULSE 98; TEMP 36.4; O2SAT 97
--- NOTE | 2016-03-10 15:31 | Discharge Summary ---
Discharge Summary Admission Date: Feb 22, 2016 at 02:05 Discharge Date: Mar 10, 2016 Discharge Disposition: [facility] facility ([facility] ) Principal Diagnosis: acute hypoxemic respiratory failure /COPD exacerbation /HEMATURIA /ANEMIA Procedures: MECHANICAL VENTILATION Consultations: Pulm, ICU Pending Studies/Follow-Up: List of pending studies: LAB WORK : CBC ON Monday03/14/16 OUT PATIENT CYSTOSCOPY IN 3-[address]OLOGY IN [facility] PLEASE CALL TO SCHEDULE APPOINTMENT Medication Reconciliation New Medications: Ferrous Sulfate (Ferrous Sulfate) 325 Mg Tab 1 TABS PO BID for 30 Days Prednisone (Prednisone Tab) 20 Mg Tab 0 PO DAILY, #7 TAB 2 TABS DAILY FOR 2 DAYS, THEN 1 TAB DAILY FOR 2 DAYS, THEN 1/2 TAB DAILY FOR 2 DAYS. Menthol (Ricola) 24 Von/1 Box Lozg 1 VON PO PRN PRN for SORE THROAT, #30 Continued Medications: Albuterol (Proair Hfa) Aers 2 PUFF INH Q4H PRN for Wheezing Amitriptyline HCl (Amitriptyline HCl) 10 Mg Tab 10 MG PO HS Arformoterol Tartrate (Brovana) 15 Mcg/2 Ml Neb 15 MCG IN BID Atorvastatin (Lipitor) 10 Mg Tab 10 MG PO QAM, 5 Refills Azithromycin (Zithromax) 250 Mg Tab 1 PKT PO UD PRN for rescue kit for 5 Days, #6 Benzonatate (Tessalon Perles) 100 Mg Cap 1-2 CAP PO TID PRN for Cough for 5 Days, #60 CAP Cyanocobalamin (Vitamin B12) 1,000 Mcg Tab 1000 MCG PO DAILY Cyclobenzaprine Hcl (Flexeril) 10 Mg Tab 10 MG PO BID PRN for Muscle Spasms Fluticasone Furoate-Vilanterol (Breo Ellipta 200-25 Mcg/INH) 1 Inh Inh 1 PUFF PO DAILY Fluticasone Propionate (Fluticasone Propionate) 120 Sprays/6000 Mcg Inha 2 SPRAYS LIDYA BID PRN for Nasal Congestion Furosemide (Lasix) 20 Mg Tab 20 MG PO QAM PRN for fluid and wt gain Gabapentin (Neurontin) 100 Mg Cap 100 MG PO TID Glimepiride (Amaryl) 1 Mg Tab 0.5 TAB PO QAM PRN for while on prednisone, 5 Refills Hydrocodone/Acetaminophen 5MG/325MG ([place] 5MG/325MG) Tab 1 TABLET PO Q8 PRN for Moderate Pain, #30 (This prescription has been renewed) may take 1 extra if needed Ipratropium-Albuterol (Duoneb) 3 Ml Nebu 1 TREATMENT INH Q4H PRN for SOB/Wheezing, INHA Losartan Potassium (Cozaar) 25 Mg Tab 25 MG PO QAM Metformin Hcl (Glucophage) 1,000 Mg Tab 1000 MG PO BID Montelukast Sodium (Singulair) 10 Mg Tab 10 MG PO QAM Oxygen (Oxygen) Gas 2 LITERS NA HS may use during day when needed Pantoprazole Sodium (Protonix) 40 Mg Tab 40 MG PO QAM Potassium Chloride (Potassium Chloride Er) 10 Meq Tab 1 TAB PO DAILY PRN for with lasix, 3 Refills Pramipexole Dihydrochloride (Mirapex) 0.5 Mg Tab 0.5 MG PO BID Pramipexole Dihydrochloride (Mirapex Er) 1.5 Mg Tab 1-2 TABS PO HS PRN for RLS Prednisone (Prednisone) 10 Mg Tab MG PO UD PRN for rescue kit 5 tabs for 5 days then 4 tabs for 5 days 3 tabs for 5 days 2 tabs for 5 days 1 tab for 5 days Ranitidine Hcl (Zantac) 300 Mg Tab 300 MG PO HS Tiotropium [place] (Spiriva Handihaler) 18 Mcg/ Aerp 1 CAP INH QAM Zolpidem Tartrate (Ambien) 10 Mg Tab 10 MG PO HS PRN for Sleep Discontinued Medications: Aspirin (Aspirin Chewable) 81 Mg Chew 81 MG PO DAILY Ferrous Sulfate (Iron Supplement) 325 Mg Tab 325 MG PO QAM, 3 Refills Referrals At Discharge Follow up Referrals: Physician Referral - Please Call For Appointment with Destini Sequeira MD Admission Information HPI (per Admitting provider): 60 year old female with history of COPD< DM, HTN other problems noted below presenting with increasing shortness of breath. Follows with Dr. Jay for Primary Care. Patient was seen on 02/03/16 at PCP office for COPD exacerbation, and prescribed a course of Augmentin and Prednisone, which patient finished. 2 days ago, patient again started to have progressive shortness of breath, productive cough and was prescribed antibiotics and Prednisone, without relief. On the evening of admission, patient's dyspnea progressed, EMS called, placed on Bipap and given Solumedrol, Nebs. At the ER, CXR did not reveal pneumonia. On my exam, patient seen sitting up in bed, BIpap mask on, appears comfortable overall, speaking in sentences with very minimal effort. States she feels improved compared to arrival. No active chest pain, palpitations, dyspnea, dizziness, headache. Physical Exam (per Admitting): General Appearance: WD/WN, no apparent distress Head: normocephalic, atraumatic Eyes: normal inspection, PERRL, EOMI, sclerae normal ENT: normal ENT inspection, hearing grossly normal, pharynx normal Neck: supple, no adenopathy, thyroid normal, no JVD, trachea midline Respiratory/Chest: chest non-tender, no respiratory distress, + wheezing ( bilaterally) Cardiovascular: no JVD, + tachycardia Abdomen/GI: normal bowel sounds, non tender, soft Back: normal inspection, no CVA tenderness Extremities/Musculoskelatal: no calf tenderness, normal range of motion, + swelling (trace lower leg edema) Neurologic/Psych: horseradish maker II-XII nml as tested, no motor/sensory deficits, alert , normal mood/affect, normal reflexes, oriented x 3 Skin: normal color, warm/dry, no rash Lymphatic: no adenopathy Hospital Course Offers no complain , feels fine , no audible wheeze , no cough or SOB ready to be transferred to rehab Exam: General-very pleasant, no sign of distress Neck-no neck masses, no thyromegaly,trachea midline Lungs-cta b/l , no wheezing or crackles Heart-s1 and s2 heard regular, no murmurs, no lower ext edema, no JVD Abdomen-soft bowel sounds present no distension Extremities-no rash or deformity Neuro- alert and oriented, no focal neurological deficit moves extremities 60 year old female with history of COPD, Asthma DM, HTN ACUTE HYPOXEMIC RESPIRATORY FAILURE : resolved, respiratory status improved to baseline due to COPD /asthma exacerbation initially required bipap and later intubated- respiratory status improved to baseline s/p extubation 03/02/16 not requiring supplemental 02 currently on po prednisone 20mg bid- discharged with taper dose Neb tx to PRN for whz PT/OT eval requested for significant decline in functional status will benefit with SNF -referral made to [facility] will be transferred to resumed glimepiride and metformin- on transfer cont insulin SSI UTI urine culture coag neg staph was on iv vanco ( ist dose on 02/28/16 ) repeat culture no growth d/c vancomycin HEMATURIA improved urology consulted and appreciate inputs-hematuria possible due to UTI , bladder irritation due to [place] ct abd/pelvis unremarkable Hold Aspirin Plan for cystoscopy as out patient ANEMIA : HB 7.9 hematuria has resolved has baseline anemia of chronic disease no indication for transfusion out pt lab work : CBC on Monday03/14/16 continue to hold aspirin increased dose of Fe supplement DEPRESSION /ANXIETY DISORDER continue home meds appreciate psychiatry inputs Restless leg syndrome on Requip HTN Cont Losartan DVT PROPHYLAXIS scds. avoid anticoagulants due to Hematuria DISPOSITION transfer to [facility] for rehab today Total time spent on discharge = 35mins This includes examination of the patient, discharge planning, medication reconciliation, and communication with other providers. Discharge Instructions DI: Transfer Non Acute v4 Discharge Instructions Admission Reason for Admission: Copd Exacerbation Discharge Discharge Diagnosis / Problem: acute hypoxemic respiratory failure /COPD exacerbation /HEMATURIA /ANEMIA Discharge Goals Goal(s): Increase independence, Improve disease control, Therapeutic intervention Activity Recommendations Activity Level: Assistance Required Therapies: Physical Therapy, Occupational Therapy . Additional Information Patient informed of condition: Yes Advance Directives: No DNR: No Level of Care: Acute Rehab Communicable Disease: No Prognosis: Stable [place] Catheter: No Current Hospital Diet Patient's current hospital diet: Diabetes Type 2 Diet, AHA Diet (Heart Healthy) Discharge Diet Recommended Diet: AHA Diet (Heart Healthy), Diabetes Type 2 Diet Pending Studies Studies pending at discharge: yes List of pending studies: LAB WORK : CBC ON Monday03/14/16 OUT PATIENT CYSTOSCOPY IN 3-[address] IN [facility] PLEASE CALL TO SCHEDULE APPOINTMENT Laboratory Results Hemoglobin A1c Test 02/23/16 05:32 Range/Units Estimated Average Glucose 146 mg/dl Hemoglobin A1c 6.7 H 4.5-5.6 % Medical Emergencies . Who to Call and When: Medical Emergencies: If at any time you feel your situation is an emergency, please call 911 immediately. . Non-Emergent Contact Non-Emergency issues call your: Primary Care Provider . . "Provider Documentation" section prepared by Laurel Mabry. Core Measure Problem Core Measures: None
[2016-10-13] MEDS ORDERED: HYDR-5688 PO (02:05)
[2016-10-13] MEDS ORDERED: BENZ100C84 PO (04:25)
[2016-10-13] MEDS ORDERED: AMT10 PO (04:29)
[2016-10-13] MEDS ORDERED: IPRASOL4 NEB (04:32)
[2016-10-13] MEDS ORDERED: ACET325T96 PO (04:47)
[2016-10-13] MEDS ORDERED: FLNIN NAE (04:47)
[2016-10-13] MEDS ORDERED: AMB5 PO (04:47)
[2016-10-13] MEDS ORDERED: ASPCH81X PO (04:47)
[2016-10-13] MEDS ORDERED: ATOR10TA88 PO (08:33)
[2016-10-13] MEDS ORDERED: MONT1TAB3 PO (08:33)
[2016-10-13] MEDS ORDERED: METF1000 PO (08:33)
[2016-10-13] MEDS ORDERED: GABA-112 PO (08:33)
[2016-10-13] MEDS ORDERED: CYCL10TA6 PO (08:33)
[2016-10-13] MEDS ORDERED: PRAM1TAB47 PO (08:33)
[2016-10-13] MEDS ORDERED: PANT40TA PO (08:33)
[2016-10-13] MEDS ORDERED: RANI300T2 PO (08:33)
[2016-11-17] MEDS ORDERED: DICL1GEL12 (07:01)
[2016-11-17] MEDS ORDERED: ASPI325T45 PO (07:01)
[2016-11-17] MEDS ORDERED: FERR1TAB13 PO (07:01)
[2016-11-17] MEDS ORDERED: PRAM1TAB52 PO (07:01)
[2016-11-17] MEDS ORDERED: FLUC100T4 PO (07:01)
== END 2016-03-10 13:30 | DRG 208 ==
LOC: ENRESERVTM → ENRESERVDT → EDBD 22:29 → C.EDC 22:30 → C.MED 02-22 02:05 → C.MSICU 02-22 15:41 → C.2T 03-04 12:50 → C.MS2W 03-08 16:46
PROVIDERS: ADMIT Internal Medicine; ATTEND Hospitalist
PROC: 5A09357 Assistance with Respiratory Ventilation, Less than 24 Consecutive Hours, Continuous Positive Airway Pressure (ICD-10-PCS; 2016-02-22)
PROC: 5A1935Z Respiratory Ventilation, Less than 24 Consecutive Hours (ICD-10-PCS; principal; 2016-02-24)
PROC: 0BH17EZ Insertion of Endotracheal Airway into Trachea, Via Natural or Artificial Opening (ICD-10-PCS; 2016-02-24)
DX: J96.22 Acute and chronic respiratory failure with hypercapnia (principal); J44.1 Chronic obstructive pulmonary disease with (acute) exacerbation; N39.0 Urinary tract infection, site not specified; Z68.41 Body mass index [BMI] 40.0-44.9, adult; E87.0 Hyperosmolality and hypernatremia; J45.901 Unspecified asthma with (acute) exacerbation; I10 Essential (primary) hypertension; F32.9 Major depressive disorder, single episode, unspecified; E78.5 Hyperlipidemia, unspecified; M19.90 Unspecified osteoarthritis, unspecified site; K21.0 Gastro-esophageal reflux disease with esophagitis; G25.81 Restless legs syndrome; M06.9 Rheumatoid arthritis, unspecified; G89.29 Other chronic pain; J30.9 Allergic rhinitis, unspecified; E66.01 Morbid (severe) obesity due to excess calories; Z98.41 Cataract extraction status, right eye; Z96.1 Presence of intraocular lens; E11.40 Type 2 diabetes mellitus with diabetic neuropathy, unspecified; F41.9 Anxiety disorder, unspecified; R31.0 Gross hematuria; E87.5 Hyperkalemia; D64.9 Anemia, unspecified; E11.65 Type 2 diabetes mellitus with hyperglycemia; E83.51 Hypocalcemia; N39.46 Mixed incontinence; M50.30 Other cervical disc degeneration, unspecified cervical region; M51.36 Other intervertebral disc degeneration, lumbar region; K44.9 Diaphragmatic hernia without obstruction or gangrene; E87.8 Other disorders of electrolyte and fluid balance, not elsewhere classified; F17.210 Nicotine dependence, cigarettes, uncomplicated; E83.39 Other disorders of phosphorus metabolism; Z85.41 Personal history of malignant neoplasm of cervix uteri; Z99.81 Dependence on supplemental oxygen; Z79.82 Long term (current) use of aspirin; Z79.899 Other long term (current) drug therapy; Z79.84 Long term (current) use of oral hypoglycemic drugs; Z83.3 Family history of diabetes mellitus; Z82.49 Family history of ischemic heart disease and other diseases of the circulatory system; Z83.6 Family history of other diseases of the respiratory system; Z80.9 Family history of malignant neoplasm, unspecified

== ENCOUNTER 2016-09-08 08:22 | Inpatient (IN) | payer OTHER ==
[~2016-09-08] VITALS: Ht 157.5 cm; Wt 111.0 kg
[2016-09-08] VITALS (27 sets, daily range): BP systolic 100–154; BP diastolic 65–93; PULSE 105–130; TEMP 36.7–36.9; O2SAT 83–100; Ht 157.5 cm; Wt 111.0 kg
[~2016-09-08 08:22] MED LIST changes: +AMT10 PO; -ASPCH81X PO; +ATOR10TA88 PO; +BENZ100C84 PO; +CPC PO; +CYAN100020 PO; +CYCL10TA6 PO; -DICL1GEL28 TOP; -FERR325T51 PO; +FRRS300 PO; +GABA-112 PO; +GLIM1TAB PO; +IPRASOL4 INH; +METF1000 PO; +MONT1TAB3 PO; -NF656 TOP; +PANT40TA PO; +PRAM1TAB47 PO; +PRED20TA2 PO; +RANI300T2 PO
[2016-09-08] MEDS ORDERED: ALBUT/IPRATROP 3MG/0.5MG NEB 3 ML VIAL INH STA (08:31)
[2016-09-08] MEDS ORDERED: MAGNESIUM SULFATE 1GM / D5W 1 GM BAG IV STA (08:31)
[2016-09-08] MEDS ORDERED: ALBUT/IPRATROP 3MG/0.5MG NEB 3 ML VIAL ONE (08:32)
[2016-09-08] MEDS ORDERED: DEXAMETHASONE SOD INJ 10 MG/ML VIAL ONE (08:33)
[2016-09-08] MEDS ORDERED: MAGNESIUM SULFATE 1GM / D5W 1 GM BAG ONE (08:34)
[2016-09-08 08:42] LABS: BASO % 0.2 %; BASO ABS # 0.02 K/uL (0-0.2); COMPLETE YES; HEMATOCRIT 34.9 % (37-47); IG% 0.4 %; LYMPH % 37.5 %; LYMPH ABS # 4.29 K/uL (1.2-3.4); MEAN CELL VOLUME 88.4 fL (80-100); MEAN CORPUSCULAR HEMOGLOBIN 27.6 pg (25-34); MEAN CORPUSCULAR HGB CONC 31.2 g/dl (32-36); MEAN PLATELET VOLUME 9.1 fL (7.4-10.4); MONO % 8.7 %; NEUT % 52.2 %; PLATELET COUNT 386 K/uL (130-400); RED BLOOD COUNT 3.95 M/uL (4.2-5.4); WHITE BLOOD COUNT 11.43 K/uL (4.8-10.8)
[2016-09-08] MEDS ORDERED: ALBUT/IPRATROP 3MG/0.5MG NEB 3 ML VIAL INH ONE (08:45)
[2016-09-08] MEDS ORDERED: DEXAMETHASONE SOD INJ 10 MG/ML VIAL IV ONE (08:45)
--- NOTE | 2016-09-08 08:55 | DIAGNOSTIC IMAGING REPORT ---
CHEST ONE VIEW PORTABLE CLINICAL HISTORY: EVALUATE RESPIRATORY DISTRESS. DYSPNEA COMPARISON STUDY: 03/03/2016 FINDINGS: Subtle increase in basilar interstitial markings bilaterally. Mid and upper lungs are considered clear. No evidence for focal or consolidative infiltrate. Subtle indistinctness of the cardiac borders bilaterally. IMPRESSION: Moderate bibasilar interstitial change, possibly inflammatory. Electronically signed by: Fuentes Lewis M.D. 09/08/2016 8:53 AM Dictated Date/Time: 09/08/2016 8:52 AM
[2016-09-08 08:57] LABS: INR 0.9 (0.9-1.1); PARTIAL THROMBOPLASTIN RATIO 0.8; PROTHROMBIN TIME (PATIENT) 9.4 SECONDS (9.0-12.0)
[2016-09-08 08:59] LABS: ALT/SGPT 30 U/L (12-78); BLOOD UREA NITROGEN 12 mg/dl (7-18); BUN/CREATININE RATIO 14.6 (10-20); CALCIUM 9.5 mg/dl (8.5-10.1); CARBON DIOXIDE 29 mmol/L (21-32); CHLORIDE 106 mmol/L (98-107); CREATININE 0.83 mg/dl (0.60-1.20); GLUCOSE 132 mg/dl (70-99); POTASSIUM 4.5 mmol/L (3.5-5.1); SODIUM 141 mmol/L (136-145)
[2016-09-08 09:04] LABS: ALB/GLOB RATIO 0.9 (0.9-2); ALKALINE PHOSPHATASE 97 U/L (45-117); AST/SGOT 16 U/L (15-37); CKMB/CK RATIO 1.5 (0-3.0)
[2016-09-08] MEDS ORDERED: LEVAQUIN 750MG / 150ML D5W IV STA (09:06)
[2016-09-08 09:20] LABS: ARTERIAL BLD GAS O2 SATURATION 99.4 % (90-95); ARTERIAL BLOOD GAS BASE EXCESS 2.5 mEq/L (-9-1.8); ARTERIAL BLOOD GAS HCO3 30 mmol/L (19-24); ARTERIAL BLOOD GAS PO2 300 mm/Hg (80-95)
[2016-09-08] MEDS ORDERED: CYCLOBENZAPRINE HCL 5 MG TAB PO STA (09:20)
[2016-09-08 09:21] LABS: O2 ADMINISTRATION 40%
[2016-09-08 09:23] LABS: ALLEN TEST POS (POS)
[2016-09-08] MEDS ORDERED: VNTHFA/IN INH (09:33)
[2016-09-08] MEDS ORDERED: IPRA1AER2 INH (09:33)
[2016-09-08] MEDS ORDERED: SPRIN/30 INH (09:33)
[2016-09-08] MEDS ORDERED: ACETAMINOPHEN 325 MG TAB PO PRN (10:45)
[2016-09-08] MEDS ORDERED: LEVALBUTEROL/IPRATROPIUM NEB INH PRN (11:00)
[2016-09-08] MEDS ORDERED: PHARMACY GLYCEMIC MGMT CONSULT PRN (11:12)
[2016-09-08] MEDS ORDERED: IPRATROPIUM BROMIDE NEB SOLN 0.02% 2.5 ML VIAL INH PRN (12:00)
[2016-09-08] MEDS ORDERED: LEVALBUTEROL 1.25MG/0.5ML NEB INH PRN (12:00)
--- NOTE | 2016-09-08 13:10 | Critical Care Consultation ---
Critical Care Consultation Date of Consultation: Sep 08, 2016. Attending Physician: Reason for Consultation: Status Asthmaticus/Respiratory Failure/COPD exacerbation History of Present Illness She presented to the ER with several days of worsening dyspnea and wheezing. Notes exposure to magic markers and a bathroom glass cleaner that might have exacerbated her chronic lung disease. She was given steroids, antibiotics, beta-2 agonists and positive pressure support with a BiPAP. Her condition did improve but she is tenuous and presents to the ICU for care. She is able to talk in complete sentences. Notes improvement since AM today. The support was changed to 3 liters N/C. She will require oversight and monitoring. Past Medical/Surgical History Hypoxemia Asthma COPD Obesity DM Hyperlipidemia HTN Family History Diabetes mellitus FH: heart disease FH: lung disease FHx: cancer Hypertension Social History No smoking reported of any substances whatsoever. Smoking Status: Former Smoker Drug Use: none Marital Status: single Housing Status: lives alone Occupation Status: disabled Allergies Coded Allergies: No Known Allergies (Verified , 02/21/16) Home Medications Scheduled Albuterol Hfa (Ventolin Hfa), 2 PUFFS INH Q4H Amitriptyline HCl (Amitriptyline HCl), 10 MG PO HS Arformoterol Tartrate (Brovana), 15 MCG IN BID Atorvastatin (Lipitor), 10 MG PO QAM Cyanocobalamin (Vitamin B12), 1,000 MCG PO DAILY Ferrous Sulfate (Ferrous Sulfate), 1 TABS PO BID Fluticasone Furoate-Vilanterol (Breo Ellipta 200-25 Mcg/INH), 1 PUFF PO DAILY Gabapentin (Neurontin), 100 MG PO TID Home O2 Therapy (Oxygen), 2 LITERS NA HS Ipratropium-Albuterol (Combivent Respimat), 1 PUFFS INH QID Losartan Potassium (Cozaar), 25 MG PO QAM Metformin Hcl (Glucophage), 1,000 MG PO BID Montelukast Sodium (Singulair), 10 MG PO QAM Pantoprazole Sodium (Protonix), 40 MG PO QAM Pramipexole Dihydrochloride (Mirapex), 0.5 MG PO BID Ranitidine Hcl (Zantac), 300 MG PO HS Tiotropium [place] (Spiriva Handihaler), 1 CAP INH DAILY Scheduled PRN Benzonatate (Tessalon Perles), 1-2 CAP PO TID PRN for Cough Cyclobenzaprine Hcl (Flexeril), 10 MG PO BID PRN for Muscle Spasms Furosemide (Lasix), 20 MG PO QAM PRN for fluid and wt gain Glimepiride (Amaryl), 0.5 TAB PO QAM PRN for while on prednisone Hydrocodone/Acetaminophen 5MG/325MG ([place] 5MG/325MG), 1 TABLET PO Q8 PRN for Moderate Pain Ipratropium-Albuterol (Duoneb), 1 TREATMENT INH Q4H PRN for SOB/Wheezing Menthol (Ricola), 1 AYDEN PO PRN PRN for SORE THROAT Potassium Chloride (Potassium Chloride Er), 1 TAB PO DAILY PRN for with lasix Pramipexole Dihydrochloride (Mirapex Er), 1-2 TABS PO HS PRN for RLS Current Inpatient Medications Current Inpatient Medications Medications (Trade) Dose Ordered Sig/Allison Route Start Time Stop Time Status Last Admin Dose Admin Enoxaparin Sodium (Lovenox Inj) 40 mg Q24H SQ 09/08/16 10:45 10/08/16 10:44 UNV Acetaminophen (Tylenol Tab) 650 mg Q4H PRN PO 09/08/16 10:45 10/08/16 10:44 Pantoprazole Sodium 40 mg/ Syringe 10 ml @ 5 mls/min DAILY IV 09/09/16 09:00 10/09/16 08:59 UNV Levalbuterol (Xopenex 1.25MG/ 0.5ML Neb) 1.25 mg Q4R INH 09/08/16 12:00 10/08/16 11:59 Ipratropium [place] (Atrovent 0.02% 0.5MG/2.5ML Neb) 0.5 mg Q4R INH 09/08/16 12:00 10/08/16 11:59 Methylprednisolone Sodium Succinate 60 mg/Syringe 0.96 ml @ 1.5 mls/min Q8 IV 09/08/16 15:00 10/08/16 14:59 UNV Levofloxacin 750 mg/Prmx 150 ml @ 100 mls/hr Q24H IV 09/09/16 09:00 09/16/16 08:59 UNV Miscellaneous Information (Consult Glycemic Management Pharmacy) 1 ea UD PRN N/A 09/08/16 11:12 10/08/16 11:11 Amitriptyline HCl (Elavil Tab) 10 mg HS PO 09/08/16 21:00 10/08/16 20:59 UNV Atorvastatin Calcium (Lipitor Tab) 10 mg QAM PO 09/09/16 09:00 10/09/16 08:59 UNV Cyclobenzaprine HCl (Flexeril Tab) 10 mg BID PRN PO 09/08/16 11:00 10/08/16 10:59 UNV Gabapentin (Neurontin Cap) 100 mg TID PO 09/08/16 14:00 10/08/16 13:59 UNV Losartan Potassium (coZAAR TAB) 25 mg QAM PO 09/09/16 09:00 10/09/16 08:59 UNV Montelukast Sodium (Singulair Tab) 10 mg QAM PO 09/09/16 09:00 10/09/16 08:59 UNV Pramipexole Dihydrochloride (miraPEX TAB) 0.5 mg BID PO 09/08/16 21:00 10/08/16 20:59 UNV Miscellaneous Information (Order Awaiting Action) 1 ea QS N/A 09/08/16 16:00 10/08/16 15:59 Ipratropium [place] (Atrovent 0.02% 0.5MG/2.5ML Neb) 0.5 mg Q6H PRN INH 09/08/16 12:00 10/08/16 11:59 Levalbuterol (Xopenex 1.25MG/ 0.5ML Neb) 1.25 mg Q6H PRN INH 09/08/16 12:00 10/08/16 11:59 Review of Systems Review noteworthy for wheezing and dyspnea. No worsening sputum. No target pain. No worsening edema. No GI/ complaints. No additional positives on the 14 point review Physical Exam Date Time Temp Pulse Resp B/P (MAP) Pulse Ox O2 Delivery O2 Flow Rate FiO2 09/08/16 12:00 109 143/86 100 09/08/16 11:09 101 20 122/87 100 BiPAP 40 09/08/16 09:49 100 BiPAP 40 09/08/16 08:56 130 28 100 BiPAP/CPAP 40 09/08/16 08:52 129 09/08/16 08:50 126 28 124/91 100 BiPAP 40 09/08/16 08:43 128 28 178/122 98 BiPAP 40 09/08/16 08:43 130 100 40 09/08/16 08:40 93 Nasal Cannula 4.0 09/08/16 08:37 37.4 130 30 212/139 93 Nasal Cannula 4.0 09/08/16 08:37 93 Nasal Cannula 4.0 09/08/16 08:37 93 Nasal Cannula 4.0 able to speak in complete sentences HEENT--cushings type changes Respiratory--exp wheeze with some delay. Exchange is fair. No focal rales or rhonchi Cardio--rate and volume ok. No JVD. No substantial edema GI--obese/rotund--no pain --negative Musculo--no acute findings Neuro--negative Psych--calm and appropriate Derm--no active lesions Laboratory Results Last 24 Hours Test 09/08/16 08:30 09/08/16 09:09 White Blood Count 11.43 K/uL Red Blood Count 3.95 M/uL Hemoglobin 10.9 g/dL Hematocrit 34.9 % Mean Corpuscular Volume 88.4 fL Mean Corpuscular Hemoglobin 27.6 pg Mean Corpuscular Hemoglobin Concent 31.2 g/dl Platelet Count 386 K/uL Mean Platelet Volume 9.1 fL Neutrophils (%) (Auto) 52.2 % Lymphocytes (%) (Auto) 37.5 % Monocytes (%) (Auto) 8.7 % Eosinophils (%) (Auto) 1.0 % Basophils (%) (Auto) 0.2 % Neutrophils # (Auto) 5.97 K/uL Lymphocytes # (Auto) 4.29 K/uL Monocytes # (Auto) 0.99 K/uL Eosinophils # (Auto) 0.11 K/uL Basophils # (Auto) 0.02 K/uL RDW Standard Deviation 51.9 fL RDW Coefficient of Variation 16.1 % Immature Granulocyte % (Auto) 0.4 % Immature Granulocyte # (Auto) 0.05 K/uL Prothrombin Time 9.4 SECONDS Prothromb Time International Ratio 0.9 Activated Partial Thromboplast Time 19.8 SECONDS Partial Thromboplastin Ratio 0.8 Sodium Level 141 mmol/L Potassium Level 4.5 mmol/L Chloride Level 106 mmol/L Carbon Dioxide Level 29 mmol/L Anion Gap 6.0 mmol/L Blood Urea Nitrogen 12 mg/dl Creatinine 0.83 mg/dl Estimated GFR () 87.6 Estimated GFR (Non- 75.6 BUN/Creatinine Ratio 14.6 Random Glucose 132 mg/dl Calcium Level 9.5 mg/dl Total Bilirubin < 0.1 mg/dl Aspartate Amino Transf (AST/SGOT) 16 U/L Alanine Aminotransferase (ALT/SGPT) 30 U/L Alkaline Phosphatase 97 U/L Total Creatine Kinase 293 U/L Creatine Kinase MB 4.5 ng/ml Creatine Kinase MB Ratio 1.5 Troponin I < 0.015 ng/ml Total Protein 7.6 gm/dl Albumin 3.6 gm/dl Globulin 4.0 gm/dl Albumin/Globulin Ratio 0.9 Arterial Blood pH 7.30 Arterial Blood Partial Pressure CO2 62 mmHg Arterial Blood Partial Pressure O2 300 mm/Hg Arterial Blood HCO3 30 mmol/L Arterial Blood Oxygen Saturation 99.4 % Arterial Blood Base Excess 2.5 mEq/L Arterial Blood Gas Delivery 40% Ziyad Test POS Assessment & Plan Hypercapnic Respiratory Failure/Asthma/COPD/--Respiratory Acidosis 1. Pulmonary--general support and track--agree with current Rx. 2. Cardio--will track. May require some gentle diuresis 3. GI--OBR 4. Endo--coverage if required given the steroids 5. Dispo--pending response
[2016-09-08] MEDS ORDERED: INSULIN GLARGINE SOLOSTAR 100 UNITS/ML 3 ML PEN SC ONE ×2 (14:45→21:00)
[2016-09-08] MEDS: METHYLPREDNISOLONE IV 60 MG in SYRINGE 0 ML IV SCH ×2 (14:46→21:34)
--- NOTE | 2016-09-08 14:53 | Pharmacy Progress Note ---
Glycemic Control Intl Consult Date of Service Sep 08, 2016. Scope Glycemic Pharmacist consulted by Adrienne Burgos PA-C on 09/08 for glycemic control and to write orders per [facility] inpatient glycemic control protocol Objective Weight (Kilograms): 112.000 Accuchecks BSG (last 24hrs): Test 09/08/16 08:30 09/08/16 13:44 Random Glucose 132 mg/dl (70-99) Bedside Glucose 170 mg/dl (70-90) Laboratory Data (last 24hrs) Test 09/08/16 08:30 Anion Gap 6.0 mmol/L BUN/Creatinine Ratio 14.6 Blood Urea Nitrogen 12 mg/dl Creatinine 0.83 mg/dl Potassium Level 4.5 mmol/L Sodium Level 141 mmol/L White Blood Count 11.43 K/uL Red Blood Count 3.95 M/uL Hemoglobin 10.9 g/dL Hematocrit 34.9 % Mean Corpuscular Volume 88.4 fL Mean Corpuscular Hemoglobin 27.6 pg Mean Corpuscular Hemoglobin Concent 31.2 g/dl Platelet Count 386 K/uL Mean Platelet Volume 9.1 fL Neutrophils (%) (Auto) 52.2 % Lymphocytes (%) (Auto) 37.5 % Monocytes (%) (Auto) 8.7 % Eosinophils (%) (Auto) 1.0 % Basophils (%) (Auto) 0.2 % Neutrophils # (Auto) 5.97 K/uL Lymphocytes # (Auto) 4.29 K/uL Monocytes # (Auto) 0.99 K/uL Eosinophils # (Auto) 0.11 K/uL Basophils # (Auto) 0.02 K/uL Recent Pertinent Medications Outpatient Anti-diabetic Regimen: * Metformin 1000 mg po BID * Amaryl 0.5 mg po daily * A1c pending for 09/09/16 Risk Factors for Insulin Resistance: * Steroids: Dexamethasone 10 mg IV x1 then methylprednisolone 60 mg IV q8h * Infection: asthma attack ? infectious etiology * Diet Assessment & Plan ASSESSMENT: * ADA & AACE recommend a goal blood sugar range 140-180 mg/dl for the majority of critically ill & non-critically ill patients. However, more stringent targets may be selected in individual cases. * 61 yo F with status asthmaticus / COPD exacerbation * Received high-dose steroids therefore will be aggressive with initial Lantus dose despite previous admission requiring significantly less * Will add additional one-time dose this PM for persistent significant hyperglycemia * Weight-based estimate for Novolog is appropriate. Will also add one overnight check PLAN FOR INPATIENT GLYCEMIC CONTROL: * Holding outpatient oral diabetes medications * Basal insulin with LANTUS 20 units SQ x1 then an additional 8 units this PM for BSG > 200 mg/dL * Correctional Insulin with NOVOLOG per scale ACHS or Q6hrs while NPO - additional check x1 overnight * Goal Range: Low 140 mg/dL - High 180 mg/dL * Correction Factor: 20 mg/dL/unit * Nutritional / Prandial insulin per carb ratio of 1 unit per 7 grams CHO consumed * Please note that the plan above was derived based on current level of insulin resistance and hospital stress. These recommendations are appropriate for inpatient admission only. Plan of care upon discharge will need to be reassessed to avoid potential outpatient hypo/hyperglycemia. Thank you.
[2016-09-08] MEDS: LEVALBUTEROL 1.25MG/0.5ML NEB INH SCH ×3 (15:26→23:42)
[2016-09-08] MEDS: IPRATROPIUM BROMIDE NEB SOLN 0.02% 2.5 ML VIAL INH SCH ×3 (15:26→23:42)
--- NOTE | 2016-09-08 15:36 | EMERGENCY ROOM VISIT NOTE ---
History Report prepared by Hiral: Vic Guzmán Under the Supervision of: Dr. Jayden Berry M.D. First contact with patient: 08:31 Stated Complaint: ASTHMA ATTACK/ COPD History of Present Illness The patient is a 61 year old female who presents to the Emergency Room with complaints of a constant asthma attack that started to occur a day and a half ago. The patient states that she has been ill for the past 5 days and has been experiencing her asthma symptoms for a day and a half. She states that her symptoms include a tight sensation in her chest and shortness of breath. The patient states that she has a history of asthma and typically uses a nebulizer at home to relieve her symptoms, but denies any relief of symptoms for this asthma attack. She states that she has had multiple asthma attacks in the past, including one that occurred on February 22, 2016. The patient states that she reported to the ED for her asthma attack where they put her in an induced coma and treated her with BiPAP. She reports that she would not like to be put into an induced coma during her current visit. Per nursing, the patient quit smoking a few years ago and has been hypertensive upon her visit. The patient reports that her PCP is Dr. Francisco of [facility]. The patient denies any medication allergies, LOC, headache, fevers, chills, diaphoresis, visual changes, neck pain , chest pain, nausea, vomiting, abdominal pain, back pain, melena, hematochezia , urinary symptoms, numbness, weakness, lymphadenopathy, rash, or other complaints. Source of History: patient, nursing staff Onset: 1.5 days ago Position: other (global) Quality: other (tight) Timing: constant Associated Symptoms: + SOB Review of Systems See HPI for pertinent positives and negatives. A total of ten systems were reviewed and were otherwise negative. Past Medical & Surgical Medical Problems: (1) Anemia (2) Asthma (3) Asthma, Unspecified (4) Bradycardia (5) Carpal tunnel syndrome (6) Complicated urinary tract infection (7) Constipation (8) COPD (chronic obstructive pulmonary disease) (9) Depression (10) Diabetes mellitus (11) Electrolyte imbalance (12) Esophageal Reflux (13) Hematuria (14) Hiatal hernia (15) History of cervical cancer (16) Hyperlipidemia (17) Hypertension (18) Hypertension (19) Intervertebral disc disorder (20) Obstructive Chronic Bronchitis With Acute Bronchitis (21) Osteoarthritis (22) Reflux esophagitis (23) Respiratory failure (24) Restless leg syndrome (25) Restless Legs Syndrome (26) Rheumatoid Arthritis (27) Tobacco Use Disorder Surgical Problems: (1) H/O colonoscopy (2) History of esophagogastroduodenoscopy (EGD) Family History Diabetes mellitus FH: heart disease FH: lung disease FHx: cancer Hypertension Social History Smoking Status: Former Smoker Alcohol Use: none Drug Use: none Marital Status: single Housing Status: lives alone Occupation Status: disabled Current/Historical Medications Scheduled Albuterol Hfa (Ventolin Hfa), 2 PUFFS INH Q4H Amitriptyline HCl (Amitriptyline HCl), 10 MG PO HS Arformoterol Tartrate (Brovana), 15 MCG IN BID Atorvastatin (Lipitor), 10 MG PO QAM Cyanocobalamin (Vitamin B12), 1,000 MCG PO DAILY Ferrous Sulfate (Ferrous Sulfate), 1 TABS PO BID Fluticasone Furoate-Vilanterol (Breo Ellipta 200-25 Mcg/INH), 1 PUFF PO DAILY Gabapentin (Neurontin), 100 MG PO TID Home O2 Therapy (Oxygen), 2 LITERS NA HS Ipratropium-Albuterol (Combivent Respimat), 1 PUFFS INH QID Losartan Potassium (Cozaar), 25 MG PO QAM Metformin Hcl (Glucophage), 1,000 MG PO BID Montelukast Sodium (Singulair), 10 MG PO QAM Pantoprazole Sodium (Protonix), 40 MG PO QAM Pramipexole Dihydrochloride (Mirapex), 0.5 MG PO BID Ranitidine Hcl (Zantac), 300 MG PO HS Tiotropium [place] (Spiriva Handihaler), 1 CAP INH DAILY Scheduled PRN Benzonatate (Tessalon Perles), 1-2 CAP PO TID PRN for Cough Cyclobenzaprine Hcl (Flexeril), 10 MG PO BID PRN for Muscle Spasms Furosemide (Lasix), 20 MG PO QAM PRN for fluid and wt gain Glimepiride (Amaryl), 0.5 TAB PO QAM PRN for while on prednisone Hydrocodone/Acetaminophen 5MG/325MG ([place] 5MG/325MG), 1 TABLET PO Q8 PRN for Moderate Pain Ipratropium-Albuterol (Duoneb), 1 TREATMENT INH Q4H PRN for SOB/Wheezing Menthol (Ricola), 1 AYDEN PO PRN PRN for SORE THROAT Potassium Chloride (Potassium Chloride Er), 1 TAB PO DAILY PRN for with lasix Pramipexole Dihydrochloride (Mirapex Er), 1-2 TABS PO HS PRN for RLS Allergies Coded Allergies: No Known Allergies (Verified , 02/21/16) Physical Exam Vital Signs Date Time Temp Pulse Resp B/P (MAP) Pulse Ox O2 Delivery O2 Flow Rate FiO2 09/08/16 09:49 100 BiPAP 40 09/08/16 08:56 130 28 100 BiPAP/CPAP 40 09/08/16 08:52 129 09/08/16 08:50 126 28 124/91 100 BiPAP 40 09/08/16 08:43 128 28 178/122 98 BiPAP 40 09/08/16 08:43 130 100 40 09/08/16 08:40 93 Nasal Cannula 4.0 09/08/16 08:37 37.4 130 30 212/139 93 Nasal Cannula 4.0 09/08/16 08:37 93 Nasal Cannula 4.0 09/08/16 08:37 93 Nasal Cannula 4.0 Physical Exam GENERAL: Awake, alert, well-appearing, in no severe distress. Uncomfortable appearing. HENT: Normocephalic, atraumatic. Oropharynx unremarkable. EYES: Normal conjunctiva. Sclera non-icteric. NECK: Supple. No nuchal rigidity. FROM. No JVD. RESPIRATORY: Decreased air movement bilaterally. CARDIAC: Tachycardic, normal rhythm. Extremities warm and well perfused. Pulses equal. ABDOMEN: Soft, non-distended. No tenderness to palpation. No rebound or guarding. No masses. RECTAL: Deferred. MUSCULOSKELETAL: Chest examination reveals no tenderness. The back is symmetrical on inspection without obvious abnormality. There is no CVA tenderness to palpation. No joint edema. LOWER EXTREMITIES: Calves are equal size bilaterally and non-tender. 1+ edema bilaterally. No discoloration. NEURO: Normal sensorium. No sensory or motor deficits noted. SKIN: No rash or jaundice noted. Medical Decision & Procedures ER Provider Diagnostic Interpretation: X-ray: Per my interpretation, radiologist review. CHEST ONE VIEW PORTABLE CLINICAL HISTORY: EVALUATE RESPIRATORY DISTRESS. DYSPNEA COMPARISON STUDY: 03/03/2016 FINDINGS: Subtle increase in basilar interstitial markings bilaterally. Mid and upper lungs are considered clear. No evidence for focal or consolidative infiltrate. Subtle indistinctness of the cardiac borders bilaterally. IMPRESSION: Moderate bibasilar interstitial change, possibly inflammatory. Electronically signed by: Fuentes Lewis M.D. 09/08/2016 8:53 AM Dictated Date/Time: 09/08/2016 8:52 AM Laboratory Results 09/08/16 08:30 Red Blood Count 3.95, Mean Corpuscular Volume 88.4, Mean Corpuscular Hemoglobin 27.6, Mean Corpuscular Hemoglobin Concent 31.2, Mean Platelet Volume 9.1, Neutrophils (%) (Auto) 52.2, Lymphocytes (%) (Auto) 37.5, Monocytes (%) (Auto) 8.7, Eosinophils (%) (Auto) 1.0, Basophils (%) (Auto) 0.2, Neutrophils # (Auto) 5.97, Lymphocytes # (Auto) 4.29, Monocytes # (Auto) 0.99, Eosinophils # (Auto) 0.11, Basophils # (Auto) 0.02 09/08/16 08:30 Test 09/08/16 08:30 09/08/16 09:09 White Blood Count 11.43 K/uL (4.8-10.8) Red Blood Count 3.95 M/uL (4.2-5.4) Hemoglobin 10.9 g/dL (12.0-16.0) Hematocrit 34.9 % (37-47) Mean Corpuscular Volume 88.4 fL (80-100) Mean Corpuscular Hemoglobin 27.6 pg (25-34) Mean Corpuscular Hemoglobin Concent 31.2 g/dl (32-36) Platelet Count 386 K/uL (130-400) Mean Platelet Volume 9.1 fL (7.4-10.4) Neutrophils (%) (Auto) 52.2 % Lymphocytes (%) (Auto) 37.5 % Monocytes (%) (Auto) 8.7 % Eosinophils (%) (Auto) 1.0 % Basophils (%) (Auto) 0.2 % Neutrophils # (Auto) 5.97 K/uL (1.4-6.5) Lymphocytes # (Auto) 4.29 K/uL (1.2-3.4) Monocytes # (Auto) 0.99 K/uL (0.11-0.59) Eosinophils # (Auto) 0.11 K/uL (0-0.5) Basophils # (Auto) 0.02 K/uL (0-0.2) RDW Standard Deviation 51.9 fL (36.4-46.3) RDW Coefficient of Variation 16.1 % (11.5-14.5) Immature Granulocyte % (Auto) 0.4 % Immature Granulocyte # (Auto) 0.05 K/uL (0.00-0.02) Prothrombin Time 9.4 SECONDS (9.0-12.0) Prothromb Time International Ratio 0.9 (0.9-1.1) Activated Partial Thromboplast Time 19.8 SECONDS (21.0-31.0) Partial Thromboplastin Ratio 0.8 Anion Gap 6.0 mmol/L (3-11) Estimated GFR () 87.6 Estimated GFR (Non- 75.6 BUN/Creatinine Ratio 14.6 (10-20) Calcium Level 9.5 mg/dl (8.5-10.1) Total Bilirubin < 0.1 mg/dl (0.2-1) Aspartate Amino Transf (AST/SGOT) 16 U/L (15-37) Alanine Aminotransferase (ALT/SGPT) 30 U/L (12-78) Alkaline Phosphatase 97 U/L (45-117) Total Creatine Kinase 293 U/L (26-192) Creatine Kinase MB 4.5 ng/ml (0.5-3.6) Creatine Kinase MB Ratio 1.5 (0-3.0) Troponin I < 0.015 ng/ml (0-0.045) Total Protein 7.6 gm/dl (6.4-8.2) Albumin 3.6 gm/dl (3.4-5.0) Globulin 4.0 gm/dl (2.5-4.0) Albumin/Globulin Ratio 0.9 (0.9-2) Arterial Blood pH 7.30 (7.35-7.45) Arterial Blood Partial Pressure CO2 62 mmHg (35-46) Arterial Blood Partial Pressure O2 300 mm/Hg (80-95) Arterial Blood HCO3 30 mmol/L (19-24) Arterial Blood Oxygen Saturation 99.4 % (90-95) Arterial Blood Base Excess 2.5 mEq/L (-9-1.8) Arterial Blood Gas Delivery 40% Ziyad Test POS (POS) Laboratory results reviewed by me Medications Administered Medications (Trade) Dose Ordered Sig/Allison Route Start Time Stop Time Status Last Admin Dose Admin Albuterol/ Ipratropium (Duoneb) 3 ml NOW STAT INH 09/08/16 08:31 09/08/16 08:34 DC 09/08/16 09:16 3 ML Albuterol/ Ipratropium (Duoneb) 12 ml ONE ONCE INH 09/08/16 08:45 09/08/16 08:46 DC 09/08/16 08:56 12 ML Dexamethasone Sodium Phosphate (Decadron Inj) 10 mg STK-MED ONCE .ROUTE 09/08/16 08:33 09/08/16 08:34 DC 09/08/16 09:17 10 MG Magnesium Sulfate (Magnesium Sulfate) 2 gm STK-MED ONCE .ROUTE 09/08/16 08:34 09/08/16 08:35 DC 09/08/16 09:17 2 GM Levofloxacin (Levaquin / D5W) 750 mg NOW STAT IV 09/08/16 09:06 09/08/16 09:08 DC 09/08/16 09:34 750 MG Cyclobenzaprine HCl (Flexeril Tab) 10 mg NOW STAT PO 09/08/16 09:20 09/08/16 09:21 DC 09/08/16 09:34 10 MG ECG Indication: SOB/dyspnea Rate (beats per minute): 124 Rhythm: sinus tachycardia Findings: no acute ischemic change, no ectopy ED Course 0831: Duoneb 3 ml INH. 0832: The patient was evaluated in room B04B. A complete history and physical exam was performed. 0833: Decadron Injection 10 mg IV. 0834: Magnesium Sulfate 2 mg IV. 0844: I discussed the patient's case with Dr. Rodarte, [employer]. 0845: Decadron Injection 10 mg IV, Duoneb 12 ml INH. 0900: I updated the patient on her results and treatment plan. She is resting comfortably. She agrees to admission. She requested her daily Flexeril dose since she did not take it this morning. 0906: Levofloxacin 750 mg IV, Flexeril Tab 10 mg PO. 0920: Flexeril Tab 10 mg PO. 0922: I discussed the patient's case with Dr. Gallagher, [facility] Hospitalist. He understands the patient's conditions and agrees to accept the patient. The patient will be further evaluated. 0958: I reevaluated the patient and she is resting comfortably. Her vitals are better and she is waiting for the hospitalist. Medical Decision Medication Reconciliation: I attest that I have personally reviewed the patient' s current medication list Patient was found to have a slightly elevated blood pressure due to circumstances. I do not believe that the patient requires hypertension monitoring. Triage Nursing notes reviewed. The patient's presentation and history were concerning for SOB. Etiologies such as pneumonia, COPD, reactive airway disease, CHF, cardiac ischemia, pulmonary embolism, pneumothorax, musculoskeletal, infections, gastrointestinal, as well as others were entertained. The patient was evaluated. She was in respiratory distress. She was given a DuoNeb immediately. She was placed on hour-long treatment. BiPAP was ordered. The patient was given magnesium, 2 g. Chest imaging was ordered. Blood work was obtained. An ABG was performed. She had a mild leukocytosis on CBC. There is also mild anemia present. Her chemistry panel, LFTs, cardiac markers were unremarkable. Her total CK and MB were just minimally elevated. Imaging revealed adequate oxygenation but mild elevation of her total CO2. Consultation was made with critical care medicine as the patient has had to be intubated in the past. I discussed the case with Dr. Blayne Rodarte . Consultation was made with internal medicine. The patient was evaluated in the Emergency Room for further management. The patient was reassessed multiple times and made a significant turnaround in her work of breathing and condition. Consults Time Called: [phone] Consulting Physician: Dr. Rodarte, [employer] Returned Call: [phone] I discussed the patient's case with Dr. Rodarte, [employer]. Additional Consults: Time Called: [phone] Consulted Physician: Dr. Gallagher Returned Call: [phone] Additional Comments: I discussed the patient's case with Dr. Gallagher, [facility] Hospitalist. He understands the patient's conditions and agrees to accept the patient. The patient will be further evaluated. Impression Primary Impression: Respiratory distress Additional Impression: COPD exacerbation Critical Care I have personally spent greater than 30 minutes of critical care time in the direct management of this patient. This includes bedside care, interpretation of diagnostic studies, and testing, discussion with consultants, patient, and family members, and other required patient management activities. This 30 minutes is in excess of all separately billable procedures. Scribe Attestation The scribe's documentation has been prepared under my direction and personally reviewed by me in its entirety. I confirm that the note above accurately reflects all work, treatment, procedures, and medical decision making performed by me. Departure Information Dispostion Being Evaluated By Hospitalist (Dr. Gallagher) Referrals Martina Jay M.D. (PCP) Problem Qualifiers
[2016-09-08] MEDS: INSULIN ASPART 100 UNITS/ML 3 ML PEN SC SCH ×2 (17:29→21:39)
--- NOTE | 2016-09-08 19:47 | History and Physical ---
History & Physical Date & Time of Service: Sep 08, 2016 at 19:40 Chief Complaint: Respiratory Failure Primary Care Physician: Martina Jay M.D. History of Present Illness Source: patient, family, clinic records, hospital records 61 year old female with history of Severe COPD, DM, HTN, GERD, Depression presenting with cough and shortness of breath x few days. Patient states for the past 3-5 days, she has been having increasing cough, with shortness of breath. No fever/chills. Symptoms worsened today prompting ER consult. At the ER, patient was placed on Bipap. PH 7.3 with respiratory acidosis CXR bilateral infiltrates Given IV Steroids, Levaquin, Nebs. On my exam, patient was wearing a Bipap mask. States she feels improved compared to admission. Denies active dyspnea, chest pain, or other symptoms. Past Medical/Surgical History Medical Problems: (1) Asthma Status: Chronic (2) Carpal tunnel syndrome Status: Chronic (3) COPD (chronic obstructive pulmonary disease) Status: Chronic (4) Depression Status: Chronic (5) Diabetes mellitus Status: Chronic (6) Hiatal hernia Status: Chronic (7) History of cervical cancer Permanent Comment: s/p laser Status: Chronic (8) Hyperlipidemia Status: Chronic (9) Hypertension Status: Chronic (10) Intervertebral disc disorder Permanent Comment: C5-C6 Status: Chronic (11) Osteoarthritis Status: Chronic (12) Reflux esophagitis Status: Chronic (13) Restless leg syndrome Status: Chronic Surgical Problems: (1) H/O colonoscopy Status: Chronic (2) History of esophagogastroduodenoscopy (EGD) Status: Chronic Family History Diabetes mellitus FH: heart disease FH: lung disease FHx: cancer Hypertension Social History Smoking Status: Former Smoker Drug Use: none Marital Status: single Housing status: lives with family Occupational Status: disabled Immunizations History of Influenza Vaccine: Yes Influenza Vaccine Date: Nov 27, 2010 History of Tetanus Vaccine?: No History of Pneumococcal: Yes Pneumococcal Date: Mar 16, 2009 History of Hepatitis B Vaccine: No Multi-Drug Resistant Organisms History of MDRO: No Allergies Coded Allergies: No Known Allergies (Verified , 02/21/16) Home Medications Scheduled Albuterol Hfa (Ventolin Hfa), 2 PUFFS INH Q4H Amitriptyline HCl (Amitriptyline HCl), 10 MG PO HS Arformoterol Tartrate (Brovana), 15 MCG IN BID Atorvastatin (Lipitor), 10 MG PO QAM Cyanocobalamin (Vitamin B12), 1,000 MCG PO DAILY Ferrous Sulfate (Ferrous Sulfate), 1 TABS PO BID Fluticasone Furoate-Vilanterol (Breo Ellipta 200-25 Mcg/INH), 1 PUFF PO DAILY Gabapentin (Neurontin), 100 MG PO TID Home O2 Therapy (Oxygen), 2 LITERS NA HS Ipratropium-Albuterol (Combivent Respimat), 1 PUFFS INH QID Losartan Potassium (Cozaar), 25 MG PO QAM Metformin Hcl (Glucophage), 1,000 MG PO BID Montelukast Sodium (Singulair), 10 MG PO QAM Pantoprazole Sodium (Protonix), 40 MG PO QAM Pramipexole Dihydrochloride (Mirapex), 0.5 MG PO BID Ranitidine Hcl (Zantac), 300 MG PO HS Tiotropium [place] (Spiriva Handihaler), 1 CAP INH DAILY Scheduled PRN Benzonatate (Tessalon Perles), 1-2 CAP PO TID PRN for Cough Cyclobenzaprine Hcl (Flexeril), 10 MG PO BID PRN for Muscle Spasms Furosemide (Lasix), 20 MG PO QAM PRN for fluid and wt gain Glimepiride (Amaryl), 0.5 TAB PO QAM PRN for while on prednisone Hydrocodone/Acetaminophen 5MG/325MG ([place] 5MG/325MG), 1 TABLET PO Q8 PRN for Moderate Pain Ipratropium-Albuterol (Duoneb), 1 TREATMENT INH Q4H PRN for SOB/Wheezing Menthol (Ricola), 1 AYDEN PO PRN PRN for SORE THROAT Potassium Chloride (Potassium Chloride Er), 1 TAB PO DAILY PRN for with lasix Pramipexole Dihydrochloride (Mirapex Er), 1-2 TABS PO HS PRN for RLS Review of Systems Constitutional- no fever; no weight loss Eyes- no acute visual changes ENT- no sinus drainage; no pharyngitis Pulmonary- (+) as noted above Cardiac- no chest pain, no palpitations, no orthopnea, no dependent edema GI- no nausea, no vomiting, no diarrhea, no melena, no hematochezia - no dysuria, no hematuria Musculoskeletal- no arthralgias, no myalgias Derm- no rashes, no new skin lesions, no changing skin lesions Hematologic- no unusual bruising, no unusual bleeding Lymphatics- no adenopathy Endocrine- no polyuria or polydipsia; no heat or cold intolerance Neuro- no headaches, no focal neurologic symptoms Psych- no anxiety, no depression Physical Exam Vital Signs Date Time Temp Pulse Resp B/P (MAP) Pulse Ox O2 Delivery O2 Flow Rate FiO2 09/08/16 19:05 119 18 96 Nasal Cannula 3.0 09/08/16 18:17 36.9 111 28 119/84 (99) 98 09/08/16 18:01 109 16 98 09/08/16 17:31 113 36 98 09/08/16 17:30 111 33 98 09/08/16 17:00 114 18 96 09/08/16 16:30 109 18 83 09/08/16 16:01 111 20 144/77 (99) 95 09/08/16 16:00 36.8 110 22 96 09/08/16 16:00 Nasal Cannula 3.0 09/08/16 15:30 113 27 98 09/08/16 15:27 120 16 94 Nasal Cannula 3.0 09/08/16 15:22 116 16 154/72 (82) 96 09/08/16 15:00 130 20 93 09/08/16 14:00 113 23 100/70 (80) 96 Nasal Cannula 3.0 09/08/16 13:00 113 20 126/93 (104) 98 Nasal Cannula 3.0 09/08/16 12:40 99 Nasal Cannula 3.0 09/08/16 12:00 109 143/86 100 09/08/16 11:09 101 20 122/87 100 BiPAP 40 09/08/16 09:49 100 BiPAP 40 09/08/16 08:56 130 28 100 BiPAP/CPAP 40 09/08/16 08:52 129 09/08/16 08:50 126 28 124/91 100 BiPAP 40 09/08/16 08:43 128 28 178/122 98 BiPAP 40 09/08/16 08:43 130 100 40 09/08/16 08:40 93 Nasal Cannula 4.0 09/08/16 08:37 37.4 130 30 212/139 93 Nasal Cannula 4.0 09/08/16 08:37 93 Nasal Cannula 4.0 09/08/16 08:37 93 Nasal Cannula 4.0 General Appearance: WD/WN, no apparent distress Head: normocephalic, atraumatic Eyes: normal inspection, EOMI, sclerae normal ENT: normal ENT inspection, hearing grossly normal, pharynx normal Neck: supple, no adenopathy, thyroid normal, no JVD, trachea midline Respiratory/Chest: chest non-tender, no respiratory distress, no accessory muscle use, + pertinent finding ((+) diffuse wheezing bilaterally) Cardiovascular: regular rate, rhythm, no edema, no JVD, no murmur Abdomen/GI: normal bowel sounds, non tender, soft, no organomegaly Back: normal inspection, no CVA tenderness Extremities/Musculoskelatal: normal inspection, no calf tenderness, normal capillary refill, no pedal edema, normal range of motion, non-tender Neurologic/Psych: water carter II-XII nml as tested, no motor/sensory deficits, alert, normal mood/affect, normal reflexes, oriented x 3 Skin: normal color, warm/dry, no rash Lymphatic: no adenopathy Diagnostics Laboratory Results Results Past 24 Hours Test 09/08/16 08:30 09/08/16 09:09 09/08/16 13:44 09/08/16 16:32 Range/Units White Blood Count 11.43 4.8-10.8 K/uL Red Blood Count 3.95 4.2-5.4 M/uL Hemoglobin 10.9 12.0-16.0 g/dL Hematocrit 34.9 37-47 % Mean Corpuscular Volume 88.4 80-100 fL Mean Corpuscular Hemoglobin 27.6 25-34 pg Mean Corpuscular Hemoglobin Concent 31.2 32-36 g/dl Platelet Count 386 130-400 K/uL Mean Platelet Volume 9.1 7.4-10.4 fL Neutrophils (%) (Auto) 52.2 % Lymphocytes (%) (Auto) 37.5 % Monocytes (%) (Auto) 8.7 % Eosinophils (%) (Auto) 1.0 % Basophils (%) (Auto) 0.2 % Neutrophils # (Auto) 5.97 1.4-6.5 K/uL Lymphocytes # (Auto) 4.29 1.2-3.4 K/uL Monocytes # (Auto) 0.99 0.11-0.59 K/uL Eosinophils # (Auto) 0.11 0-0.5 K/uL Basophils # (Auto) 0.02 0-0.2 K/uL RDW Standard Deviation 51.9 36.4-46.3 fL RDW Coefficient of Variation 16.1 11.5-14.5 % Immature Granulocyte % (Auto) 0.4 % Immature Granulocyte # (Auto) 0.05 0.00-0.02 K/uL Prothrombin Time 9.4 9.0-12.0 SECONDS Prothromb Time International Ratio 0.9 0.9-1.1 Activated Partial Thromboplast Time 19.8 21.0-31.0 SECONDS Partial Thromboplastin Ratio 0.8 Sodium Level 141 136-145 mmol/L Potassium Level 4.5 3.5-5.1 mmol/L Chloride Level 106 98-107 mmol/L Carbon Dioxide Level 29 21-32 mmol/L Anion Gap 6.0 3-11 mmol/L Blood Urea Nitrogen 12 7-18 mg/dl Creatinine 0.83 0.60-1.20 mg/dl Estimated GFR () 87.6 Estimated GFR (Non- 75.6 BUN/Creatinine Ratio 14.6 10-20 Random Glucose 132 70-99 mg/dl Calcium Level 9.5 8.5-10.1 mg/dl Total Bilirubin < 0.1 0.2-1 mg/dl Aspartate Amino Transf (AST/SGOT) 16 15-37 U/L Alanine Aminotransferase (ALT/SGPT) 30 12-78 U/L Alkaline Phosphatase 97 45-117 U/L Total Creatine Kinase 293 26-192 U/L Creatine Kinase MB 4.5 0.5-3.6 ng/ml Creatine Kinase MB Ratio 1.5 0-3.0 Troponin I < 0.015 0-0.045 ng/ml Total Protein 7.6 6.4-8.2 gm/dl Albumin 3.6 3.4-5.0 gm/dl Globulin 4.0 2.5-4.0 gm/dl Albumin/Globulin Ratio 0.9 0.9-2 Arterial Blood pH 7.30 7.35-7.45 Arterial Blood Partial Pressure CO2 62 35-46 mmHg Arterial Blood Partial Pressure O2 300 80-95 mm/Hg Arterial Blood HCO3 30 19-24 mmol/L Arterial Blood Oxygen Saturation 99.4 90-95 % Arterial Blood Base Excess 2.5 -9-1.8 mEq/L Arterial Blood Gas Delivery 40% Ziyad Test POS POS Bedside Glucose 170 182 70-90 mg/dl Microbiology Results 09/08/16 Blood Culture, Received Pending 09/08/16 Blood Culture, Received Pending 09/08/16 MRSA DNA Surveillance Screen - Final, Complete Specimen Negative for MRSA by DNA Probe Diagnostic Radiology [~ rep ct add3]] CHEST ONE VIEW PORTABLE CLINICAL HISTORY: EVALUATE RESPIRATORY DISTRESS. DYSPNEA COMPARISON STUDY: 03/03/2016 FINDINGS: Subtle increase in basilar interstitial markings bilaterally. Mid and upper lungs are considered clear. No evidence for focal or consolidative infiltrate. Subtle indistinctness of the cardiac borders bilaterally. IMPRESSION: Moderate bibasilar interstitial change, possibly inflammatory. EKG sinus tach Impression Assessment and Plan 61 year old female with history of Severe COPD, DM, HTN, GERD, Depression presenting with cough and shortness of breath x few days. COPD EXACERBATION BILATERAL LOWER LOBE PNEUMONIA - check sputum cultures - Solumedrol 60mg q8h Nebs q4h Levaquin IV - ICU monitoring DM 2 - Pharm consulted HTN - continue Losartan DEPRESSION - stable NOCTURNAL HYPOXEMIA - o2 at HS DVT PROPHYLAXIS Lovenox Full Code Dispo pending Advanced Directives Existing Living Will: Yes Existing Power of Glass Handler: Yes (CHIVO DTR, NELLIE THOMPSONR ) VTE Prophylaxis VTE Risk Assessment Done? Y/N: Yes Risk Level: Moderate
[2016-09-08] MEDS: PRAMIPEXOLE DIHYDROCHLORIDE 0.5 MG TAB PO SCH (19:51)
[2016-09-08] MEDS: AMITRIPTYLINE HCL 10 MG TAB PO SCH (19:51)
[2016-09-08] MEDS: MONTELUKAST SOD 10 MG TAB PO SCH (19:51)
[2016-09-08] MEDS: ENOXAPARIN 40 MG/0.4 ML SYR SQ SCH (19:51)
[2016-09-08] MEDS: GABAPENTIN 100 MG CAP PO SCH (19:51)
[2016-09-08] MEDS: CYCLOBENZAPRINE HCL 10 MG TAB PO PRN (21:34)
[2016-09-09] VITALS (30 sets, daily range): BP systolic 104–168; BP diastolic 70–104; PULSE 97–113; TEMP 36.6–37.2; O2SAT 94–100
[2016-09-09] MEDS ORDERED: INSULIN ASPART 100 UNITS/ML 3 ML PEN SC ONE (02:00)
[2016-09-09] MEDS: LEVALBUTEROL 1.25MG/0.5ML NEB INH SCH ×6 (03:52→23:09)
[2016-09-09] MEDS: IPRATROPIUM BROMIDE NEB SOLN 0.02% 2.5 ML VIAL INH SCH ×6 (03:52→23:09)
[2016-09-09] MEDS ORDERED: COUGH DROP (SUGAR FREE) LOZ 24 LOZ/1 BOX ONE (04:14)
[2016-09-09 04:28] LABS: MANUAL MICROSCOPIC REQUIRED? NO; REVIEW REQ? NO; URINE APPEARANCE CLEAR (CLEAR); URINE BILIRUBIN NEG (NEG); URINE COLOR YELLOW; URINE NITRITE NEG (NEG); URINE PH 7.5 (4.5-7.5); URINE SPECIFIC GRAVITY 1.028 (1.000-1.030); UROBILINOGEN NEG (NEG)
[2016-09-09] MEDS ORDERED: NURSING VERBAL MED ORDER ONE (04:30)
[2016-09-09] MEDS ORDERED: COUGH DROP (SUGAR FREE) LOZ 24 LOZ/1 BOX PO PRN (04:45)
[2016-09-09 05:48] LABS: COMPLETE YES; IG% 0.5 %; LYMPH % 20.4 %; LYMPH ABS # 1.19 K/uL (1.2-3.4); MEAN CELL VOLUME 85.8 fL (80-100); MEAN CORPUSCULAR HEMOGLOBIN 26.3 pg (25-34); MEAN CORPUSCULAR HGB CONC 30.6 g/dl (32-36); MEAN PLATELET VOLUME 8.9 fL (7.4-10.4); MONO % 8.2 %; NEUT % 70.9 %; PLATELET COUNT 365 K/uL (130-400); RED BLOOD COUNT 3.73 M/uL (4.2-5.4); WHITE BLOOD COUNT 5.84 K/uL (4.8-10.8)
[2016-09-09] MEDS: INSULIN ASPART 100 UNITS/ML 3 ML PEN SC SCH ×5 (06:12→21:12)
[2016-09-09] MEDS: METHYLPREDNISOLONE IV 60 MG in SYRINGE 0 ML IV SCH ×3 (06:13→21:14)
[2016-09-09 06:23] LABS: BUN/CREATININE RATIO 19.1 (10-20); CALCIUM 8.8 mg/dl (8.5-10.1); CREATININE 0.94 mg/dl (0.60-1.20); MAGNESIUM 2.6 mg/dl (1.8-2.4); PHOSPHORUS 2.1 mg/dl (2.5-4.9); POTASSIUM 4.4 mmol/L (3.5-5.1)
[2016-09-09 06:58] LABS: ESTIMATED AVERAGE GLUCOSE 140 mg/dl; HA1C FLAG Normal (Normal)
--- NOTE | 2016-09-09 07:50 | Clinical Documentation Query ---
MYRA Giles : CLINICAL DOCUMENTATION QUERY BMI noted to be 44.4 kg/m*m. In order to capture this clinically significant information from the EMR, the physician must explicitly document the associated condition per CMS coding guidelines. As appropriate, consider documentation as suggested below. Thank you. In your clinical opinion is this patient : ( ) Obese ( ) Other explanation of clinical findings (Please Explain) ( ) Unable to determine (Please Define) ( ) Need to Discuss ( ) Not Agree The medical record reflects the following clinical findings, treatment, and risk factors. Clinical Indicators: As above Treatment: DAHA diet Risk Factors: Intake > caloric expediture/physical inactivity Please clarify and document your clinical opinion in the progress notes and discharge summary. Terms such as "probable", "suspected", "likely", "questionable", "possible", or "still to be ruled out" are acceptable. IF IN AGREEMENT, YOU MUST DOCUMENT ABOVE DIAGNOSTIC STATEMENT IN DAILY PROGRESS NOTES AND DISCHARGE SUMMARY. This document is not part of the patient's record. Thank You, Tyrone Crump, RN [phone]
[2016-09-09] MEDS: PRAMIPEXOLE DIHYDROCHLORIDE 0.5 MG TAB PO SCH ×2 (07:56→20:31)
[2016-09-09] MEDS: GABAPENTIN 100 MG CAP PO SCH ×3 (07:56→20:31)
[2016-09-09] MEDS: ATORVASTATIN 10 MG TAB PO SCH (07:57)
[2016-09-09] MEDS: LOSARTAN POTASSIUM 25 MG TAB PO SCH (07:57)
[2016-09-09] MEDS: LEVOFLOXACIN / D5W 750 MG in PREMIXED IN D5W 150 ML IV SCH (07:57)
[2016-09-09] MEDS: CYCLOBENZAPRINE HCL 10 MG TAB PO PRN (07:59)
[2016-09-09] MEDS: INSULIN GLARGINE SOLOSTAR 100 UNITS/ML 3 ML PEN SC SCH ×2 (07:59→21:13)
[2016-09-09] MEDS ORDERED: PANTOprazole INJ 40 MG in SYRINGE 0 ML IV SCH (09:00)
--- NOTE | 2016-09-09 09:31 | Critical Care Progress Note ---
Critical Care Progress Note Date of Service Sep 09, 2016. ICU Day ICU Day Number: [address] Rodarte Subjective She is feeling better. Wheezing has improved. Rx tolerated. No worsening dyspnea or A-a gradient. Clearly moving in the right direction. Tolerating PO and no observable dyspnea during interview. She certainly can move out of the ICU at this point. Current SOFA Score SOFA Score Response (Comments) Value PaO2/FiO2 (mmHg) < 300 2 SaO2 / FIO2 142 - 220 2 Platelets (x10) > 150 0 Bilirubin (mg/dL) < 1.2 0 Brandon Coma Score 15 0 Level of Hypotension No Hypotension 0 Creatinine (mg/dL) < 1.2 0 Total 4 Assessment & Plan COPD/Hypercapnia/Hypoxemia-- 1. Pulmonary--toilette and continue current Rx. Mobilize and pulmonary toilette. Can move out of ICU 2. Cardio--volume status good. Will track 3. GI--OBR 4. Endo--coverage as required given the steroids and underlying DM. Consults & Procedures Consultants: see orders Procedures: none Data Medications: Current Inpatient Medications Medications (Trade) Dose Ordered Sig/Allison Route Start Time Stop Time Status Last Admin Dose Admin Enoxaparin Sodium (Lovenox Inj) 40 mg Q24H SQ 09/08/16 20:00 10/08/16 19:59 09/08/16 19:51 40 MG Acetaminophen (Tylenol Tab) 650 mg Q4H PRN PO 09/08/16 10:45 10/08/16 10:44 Pantoprazole Sodium 40 mg/ Syringe 10 ml @ 5 mls/min DAILY IV 09/09/16 09:00 10/09/16 08:59 09/09/16 07:57 5 MLS/MIN Levalbuterol (Xopenex 1.25MG/ 0.5ML Neb) 1.25 mg Q4R INH 09/08/16 12:00 10/08/16 11:59 09/09/16 07:05 1.25 MG Ipratropium Ira (Atrovent 0.02% 0.5MG/2.5ML Neb) 0.5 mg Q4R INH 09/08/16 12:00 10/08/16 11:59 09/09/16 07:05 0.5 MG Methylprednisolone Sodium Succinate 60 mg/Syringe 0.96 ml @ 1.5 mls/min Q8 IV 09/08/16 14:00 10/08/16 13:59 09/09/16 06:13 1.5 MLS/MIN Levofloxacin 750 mg/Prmx 150 ml @ 100 mls/hr Q24H IV 09/09/16 09:00 09/15/16 08:59 09/09/16 07:57 100 MLS/HR Miscellaneous Information (Consult Glycemic Management Pharmacy) 1 ea UD PRN N/A 09/08/16 11:12 10/08/16 11:11 Amitriptyline HCl (Elavil Tab) 10 mg HS PO 09/08/16 21:00 10/08/16 20:59 09/08/16 19:51 10 MG Atorvastatin Calcium (Lipitor Tab) 10 mg QAM PO 09/09/16 09:00 10/09/16 08:59 09/09/16 07:57 10 MG Cyclobenzaprine HCl (Flexeril Tab) 10 mg BID PRN PO 09/08/16 11:00 10/08/16 10:59 09/09/16 07:59 10 MG Gabapentin (Neurontin Cap) 100 mg TID PO 09/08/16 21:00 10/08/16 20:59 09/09/16 07:56 100 MG Losartan Potassium (coZAAR TAB) 25 mg QAM PO 09/09/16 09:00 10/09/16 08:59 09/09/16 07:57 25 MG Montelukast Sodium (Singulair Tab) 10 mg HS PO 09/08/16 21:00 10/08/16 20:59 09/08/16 19:51 10 MG Pramipexole Dihydrochloride (miraPEX TAB) 0.5 mg BID PO 09/08/16 21:00 10/08/16 20:59 09/09/16 07:56 0.5 MG Miscellaneous Information (Order Awaiting Action) 1 ea QS N/A 09/08/16 16:00 10/08/16 15:59 Ipratropium Ira (Atrovent 0.02% 0.5MG/2.5ML Neb) 0.5 mg Q6H PRN INH 09/08/16 12:00 10/08/16 11:59 Levalbuterol (Xopenex 1.25MG/ 0.5ML Neb) 1.25 mg Q6H PRN INH 09/08/16 12:00 10/08/16 11:59 Insulin Aspart (novoLOG ASPART) SLIDING SCALE ACHS SC 09/08/16 16:00 10/08/16 15:59 09/09/16 08:17 7 UNITS Menthol (Nice Von) 1 ovn PRN PRN PO 09/09/16 04:45 10/09/16 04:44 Insulin Glargine (Lantus Solostar Pen) BID SC 09/09/16 09:00 10/09/16 08:59 09/09/16 07:59 20 UNITS Vital Signs: Date Time Temp Pulse Resp B/P (MAP) Pulse Ox O2 Delivery O2 Flow Rate FiO2 09/09/16 07:25 37.2 97 16 168/87 (114) 100 Nasal Cannula 2.0 09/09/16 07:25 Nasal Cannula 2.0 09/09/16 07:05 111 16 100 Nasal Cannula 2.0 09/09/16 06:30 99 19 137/83 (98) 100 09/09/16 06:01 105 21 139/104 (109) 100 09/09/16 05:01 102 21 135/70 (79) 100 09/09/16 04:02 102 18 141/89 (107) 100 09/09/16 04:00 100 Nasal Cannula 2.0 09/09/16 04:00 36.8 09/09/16 03:53 103 16 100 Nasal Cannula 2.0 09/09/16 03:01 101 18 139/74 (102) 100 09/09/16 02:01 101 19 152/87 (106) 100 09/09/16 01:01 100 18 135/89 (109) 100 09/09/16 00:01 101 17 127/81 (101) 100 09/09/16 00:01 36.7 09/08/16 23:59 100 Nasal Cannula 2.0 09/08/16 23:42 108 16 100 Nasal Cannula 3.0 09/08/16 23:02 115 24 134/72 (83) 92 09/08/16 22:01 108 19 126/72 (105) 96 09/08/16 21:01 105 21 108/65 (71) 96 09/08/16 20:01 114 25 113/80 (93) 100 09/08/16 20:00 113 20 98 09/08/16 20:00 36.7 09/08/16 20:00 96 Nasal Cannula 3.0 09/08/16 19:05 119 18 96 Nasal Cannula 3.0 09/08/16 19:01 112 17 127/81 (110) 97 09/08/16 18:17 36.9 111 28 119/84 (99) 98 09/08/16 18:01 109 16 98 09/08/16 17:31 113 36 98 09/08/16 17:30 111 33 98 09/08/16 17:00 114 18 96 09/08/16 16:30 109 18 83 09/08/16 16:01 111 20 144/77 (99) 95 09/08/16 16:00 36.8 110 22 96 09/08/16 16:00 Nasal Cannula 3.0 09/08/16 15:30 113 27 98 09/08/16 15:27 120 16 94 Nasal Cannula 3.0 09/08/16 15:22 116 16 154/72 (82) 96 09/08/16 15:00 130 20 93 09/08/16 14:00 113 23 100/70 (80) 96 Nasal Cannula 3.0 09/08/16 13:00 113 20 126/93 (104) 98 Nasal Cannula 3.0 09/08/16 12:40 99 Nasal Cannula 3.0 09/08/16 12:00 109 143/86 100 09/08/16 11:09 101 20 122/87 100 BiPAP 40 09/08/16 09:49 100 BiPAP 40 Laboratory Results: Last 24 Hours Test 09/08/16 13:44 09/08/16 16:32 09/08/16 21:28 09/09/16 01:37 Bedside Glucose 170 mg/dl 182 mg/dl 219 mg/dl 251 mg/dl Test 09/09/16 04:16 09/09/16 05:22 09/09/16 06:05 Urine Color YELLOW Urine Appearance CLEAR Urine pH 7.5 Urine Specific [place] 1.028 Urine Protein NEG Urine Glucose (UA) 3+ Urine Ketones NEG Urine Occult Blood NEG Urine Nitrite NEG Urine Bilirubin NEG Urine Urobilinogen NEG Urine Leukocyte Esterase NEG White Blood Count 5.84 K/uL Red Blood Count 3.73 M/uL Hemoglobin 9.8 g/dL Hematocrit 32.0 % Mean Corpuscular Volume 85.8 fL Mean Corpuscular Hemoglobin 26.3 pg Mean Corpuscular Hemoglobin Concent 30.6 g/dl Platelet Count 365 K/uL Mean Platelet Volume 8.9 fL Neutrophils (%) (Auto) 70.9 % Lymphocytes (%) (Auto) 20.4 % Monocytes (%) (Auto) 8.2 % Eosinophils (%) (Auto) 0.0 % Basophils (%) (Auto) 0.0 % Neutrophils # (Auto) 4.14 K/uL Lymphocytes # (Auto) 1.19 K/uL Monocytes # (Auto) 0.48 K/uL Eosinophils # (Auto) 0.00 K/uL Basophils # (Auto) 0.00 K/uL RDW Standard Deviation 50.6 fL RDW Coefficient of Variation 15.9 % Immature Granulocyte % (Auto) 0.5 % Immature Granulocyte # (Auto) 0.03 K/uL Sodium Level 140 mmol/L Potassium Level 4.4 mmol/L Chloride Level 104 mmol/L Carbon Dioxide Level 28 mmol/L Anion Gap 8.0 mmol/L Blood Urea Nitrogen 18 mg/dl Creatinine 0.94 mg/dl Est Creatinine Clear Calc Drug Dose 73.3 ml/min Estimated GFR () 75.4 Estimated GFR (Non- 65.0 BUN/Creatinine Ratio 19.1 Random Glucose 183 mg/dl Estimated Average Glucose 140 mg/dl Hemoglobin A1c 6.5 % Calcium Level 8.8 mg/dl Phosphorus Level 2.1 mg/dl Magnesium Level 2.6 mg/dl Bedside Glucose 190 mg/dl
--- NOTE | 2016-09-09 09:32 | Pharmacy Progress Note ---
Glycemic Control Progress Note Date of Service Sep 09, 2016. Scope Glycemic Pharmacist consulted for glycemic control to write orders per [facility] inpatient glycemic control protocol. Objective Accuchecks BSG (last 24hrs): Test 09/08/16 13:44 09/08/16 16:32 09/08/16 21:28 09/09/16 01:37 Bedside Glucose 170 mg/dl (70-90) 182 mg/dl (70-90) 219 mg/dl (70-90) 251 mg/dl (70-90) Test 09/09/16 05:22 09/09/16 06:05 Random Glucose 183 mg/dl (70-99) Bedside Glucose 190 mg/dl (70-90) HbA1c: Test 09/09/16 05:22 Hemoglobin A1c 6.5 % (4.5-5.6) H Recent Pertinent Medications Outpatient Anti-diabetic Regimen: * Metformin 1000 mg po BID * Amaryl 0.5 mg po daily * A1c pending for 09/09/16 Risk Factors for Insulin Resistance: * Steroids: Dexamethasone 10 mg IV x1 then methylprednisolone 60 mg IV q8h * Infection: asthma attack ? infectious etiology * Diet Outpatient Anti-Diabetic Meds Oral Agents Assessment & Plan ASSESSMENT: * ADA & AACE recommend a goal blood sugar range 140-180 mg/dl for the majority of critically ill & non-critically ill patients. However, more stringent targets may be selected in individual cases. * 61 yo F with status asthmaticus / COPD exacerbation * BSG's ranging 170-251 mg/dL over the last 24 hours. At ICU rounds, RN reported that patient ate a bag of chips overnight which was not covered with insulin and likely contributed to the BSG of 251 mg/dL at 0200 * OK to continue with weight-based estimate of Lantus dosing despite the patient receiving much lower doses of Lantus on previous recent admission * Stress of 1 for BSG in range * Stress of 2 for BSG above 180 mg/dL * Will tighten CHO ratio 2nd post-prandial hypoglycemia noted yesterday evening and because steroid-induced hyperglycemia is usually associated w/ post- prandial elevations * Will keep additional overnight check to help cover for snacking PLAN FOR INPATIENT GLYCEMIC CONTROL: * Continue to holding outpatient oral diabetes medications * Basal insulin with LANTUS based on BSG * 0 units for BSG < 140 mg/dL * 10 units for BSG 140-180 mg/dL * 20 units for BSG >180 mg/dL * Correctional Insulin with NOVOLOG per scale ACHS or Q6hrs while NPO - additional check x1 overnight * Goal Range: Low 140 mg/dL - High 180 mg/dL * Correction Factor: 20 mg/dL/unit * Tighten Nutritional / Prandial insulin per carb ratio of 1 unit per 6 grams CHO consumed * Please note that the plan above was derived based on current level of insulin resistance and hospital stress. These recommendations are appropriate for inpatient admission only. Plan of care upon discharge will need to be reassessed to avoid potential outpatient hypo/hyperglycemia. Thank you.
[2016-09-09] MEDS ORDERED: ZOLPIDEM TARTRATE 5 MG TAB PO PRN (10:15)
[2016-09-09] MEDS: POT PHOSPHATE MONOBASIC W/ SOD TAB PO SCH ×3 (13:37→20:32)
[2016-09-09] MEDS ORDERED: CLONIDINE HCL 0.1 MG TAB PO PRN (14:45)
--- NOTE | 2016-09-09 14:46 | Progress Note ---
Medicine Progress Note Date & Time of Visit: Sep 09, 2016 at 14:34. Subjective patient seen resting in bedside chair, in good spirits now on 3 liters by [place] states she feels improved compared to yesterday cough improving, still dry no chest pain, dizziness, palpitations reports hoarseness since last hospital visit in February 2016 Objective Last 8 Hrs Date Time Temp Pulse Resp B/P (MAP) Pulse Ox O2 Delivery O2 Flow Rate FiO2 09/09/16 11:10 Nasal Cannula 2.0 09/09/16 11:10 37.0 102 20 162/87 (112) 100 Nasal Cannula 2.0 09/09/16 11:08 103 16 100 Nasal Cannula 2.0 09/09/16 11:00 104 21 97 09/09/16 10:01 109 29 162/87 (103) 98 09/09/16 10:00 109 24 98 09/09/16 09:29 108 20 104/89 (94) 99 Nasal Cannula 2.0 09/09/16 09:01 112 34 104/97 (100) 09/09/16 09:00 112 27 09/09/16 08:01 109 16 147/73 (83) 94 09/09/16 08:00 108 21 100 09/09/16 07:25 37.2 97 16 168/87 (114) 100 Nasal Cannula 2.0 09/09/16 07:25 Nasal Cannula 2.0 09/09/16 07:05 111 16 100 Nasal Cannula 2.0 09/09/16 07:01 98 17 168/87 (106) 100 09/09/16 07:00 100 18 100 Physical Exam: General- oriented x 3, not in distress, speaks in sentences with no effort Eyes- anicteric Neck- supple, no JVD Lungs- mild diffuse wheeze bilaterally Heart- regular rhythm; no murmur,normal rate Abdomen- normal bowel sounds, soft, nontender Extremities- no pretibial edema, no calf tenderness Neuro- alert, oriented x 3; no gross focal deficits Skin- warm & dry Laboratory Results: Last 24 Hours Test 09/08/16 16:32 09/08/16 21:28 09/09/16 01:37 09/09/16 04:16 Bedside Glucose 182 mg/dl 219 mg/dl 251 mg/dl Urine Color YELLOW Urine Appearance CLEAR Urine pH 7.5 Urine Specific [place] 1.028 Urine Protein NEG Urine Glucose (UA) 3+ Urine Ketones NEG Urine Occult Blood NEG Urine Nitrite NEG Urine Bilirubin NEG Urine Urobilinogen NEG Urine Leukocyte Esterase NEG Test 09/09/16 05:22 09/09/16 06:05 09/09/16 10:55 White Blood Count 5.84 K/uL Red Blood Count 3.73 M/uL Hemoglobin 9.8 g/dL Hematocrit 32.0 % Mean Corpuscular Volume 85.8 fL Mean Corpuscular Hemoglobin 26.3 pg Mean Corpuscular Hemoglobin Concent 30.6 g/dl Platelet Count 365 K/uL Mean Platelet Volume 8.9 fL Neutrophils (%) (Auto) 70.9 % Lymphocytes (%) (Auto) 20.4 % Monocytes (%) (Auto) 8.2 % Eosinophils (%) (Auto) 0.0 % Basophils (%) (Auto) 0.0 % Neutrophils # (Auto) 4.14 K/uL Lymphocytes # (Auto) 1.19 K/uL Monocytes # (Auto) 0.48 K/uL Eosinophils # (Auto) 0.00 K/uL Basophils # (Auto) 0.00 K/uL RDW Standard Deviation 50.6 fL RDW Coefficient of Variation 15.9 % Immature Granulocyte % (Auto) 0.5 % Immature Granulocyte # (Auto) 0.03 K/uL Sodium Level 140 mmol/L Potassium Level 4.4 mmol/L Chloride Level 104 mmol/L Carbon Dioxide Level 28 mmol/L Anion Gap 8.0 mmol/L Blood Urea Nitrogen 18 mg/dl Creatinine 0.94 mg/dl Est Creatinine Clear Calc Drug Dose 73.3 ml/min Estimated GFR () 75.4 Estimated GFR (Non- 65.0 BUN/Creatinine Ratio 19.1 Random Glucose 183 mg/dl Estimated Average Glucose 140 mg/dl Hemoglobin A1c 6.5 % Calcium Level 8.8 mg/dl Phosphorus Level 2.1 mg/dl Magnesium Level 2.6 mg/dl Bedside Glucose 190 mg/dl 194 mg/dl Assessment & Plan 61 year old female with history of Severe COPD, DM, HTN, GERD, Depression presenting with cough and shortness of breath x few days. COPD EXACERBATION BILATERAL LOWER LOBE PNEUMONIA - off bipap now on 3 liters [place] continue to wean off improving - sputum cultures: negative - continue: Solumedrol 60mg q8h Nebs q4h Levaquin IV Day 2 - follows with [facility] Pulmonary, will place consult today - transfer to Tele DM 2 - BSGs stable - Pharm consulted HTN - continue Losartan add PRN CLonidine DEPRESSION - stable NOCTURNAL HYPOXEMIA - o2 at HS HOARSENESS - has history of smoking - outpatient ENT referral DVT PROPHYLAXIS Lovenox Full Code Dispo pending anticipate d/c home when medically stable Current Inpatient Medications: Current Inpatient Medications Medications (Trade) Dose Ordered Sig/Allison Route Start Time Stop Time Status Last Admin Dose Admin Enoxaparin Sodium (Lovenox Inj) 40 mg Q24H SQ 09/08/16 20:00 10/08/16 19:59 09/08/16 19:51 40 MG Acetaminophen (Tylenol Tab) 650 mg Q4H PRN PO 09/08/16 10:45 10/08/16 10:44 Levalbuterol (Xopenex 1.25MG/ 0.5ML Neb) 1.25 mg Q4R INH 09/08/16 12:00 10/08/16 11:59 09/09/16 11:08 1.25 MG Ipratropium Boutte (Atrovent 0.02% 0.5MG/2.5ML Neb) 0.5 mg Q4R INH 09/08/16 12:00 10/08/16 11:59 09/09/16 11:07 0.5 MG Methylprednisolone Sodium Succinate 60 mg/Syringe 0.96 ml @ 1.5 mls/min Q8 IV 09/08/16 14:00 10/08/16 13:59 09/09/16 06:13 1.5 MLS/MIN Levofloxacin 750 mg/Prmx 150 ml @ 100 mls/hr Q24H IV 09/09/16 09:00 09/15/16 08:59 09/09/16 07:57 100 MLS/HR Miscellaneous Information (Consult Glycemic Management Pharmacy) 1 ea UD PRN N/A 09/08/16 11:12 10/08/16 11:11 Amitriptyline HCl (Elavil Tab) 10 mg HS PO 09/08/16 21:00 10/08/16 20:59 09/08/16 19:51 10 MG Atorvastatin Calcium (Lipitor Tab) 10 mg QAM PO 09/09/16 09:00 10/09/16 08:59 09/09/16 07:57 10 MG Cyclobenzaprine HCl (Flexeril Tab) 10 mg BID PRN PO 09/08/16 11:00 10/08/16 10:59 09/09/16 07:59 10 MG Gabapentin (Neurontin Cap) 100 mg TID PO 09/08/16 21:00 10/08/16 20:59 09/09/16 07:56 100 MG Losartan Potassium (coZAAR TAB) 25 mg QAM PO 09/09/16 09:00 10/09/16 08:59 09/09/16 07:57 25 MG Montelukast Sodium (Singulair Tab) 10 mg HS PO 09/08/16 21:00 10/08/16 20:59 09/08/16 19:51 10 MG Pramipexole Dihydrochloride (miraPEX TAB) 0.5 mg BID PO 09/08/16 21:00 10/08/16 20:59 09/09/16 07:56 0.5 MG Miscellaneous Information (Order Awaiting Action) 1 ea QS N/A 09/08/16 16:00 10/08/16 15:59 Ipratropium [place]outte (Atrovent 0.02% 0.5MG/2.5ML Neb) 0.5 mg Q6H PRN INH 09/08/16 12:00 10/08/16 11:59 Levalbuterol (Xopenex 1.25MG/ 0.5ML Neb) 1.25 mg Q6H PRN INH 09/08/16 12:00 10/08/16 11:59 Insulin Aspart (novoLOG ASPART) SLIDING SCALE ACHS SC 09/08/16 16:00 10/08/16 15:59 09/09/16 11:27 12 UNITS Menthol (Nice Von) 1 von PRN PRN PO 09/09/16 04:45 10/09/16 04:44 Insulin Glargine (Lantus Solostar Pen) BID SC 09/09/16 09:00 10/09/16 08:59 09/09/16 07:59 20 UNITS Insulin Aspart (novoLOG ASPART) SLIDING SCALE TODAY@0200 ONCE SC 09/10/16 02:00 09/10/16 02:01 Potassium/ Phosphorus/Sodium (Phospha 250 Neutral 155-852-130 Mg) 1 tab QID PO 09/09/16 13:00 10/09/16 12:59 09/09/16 13:37 1 TAB Pantoprazole Sodium (Protonix Tab) 40 mg QAM PO 09/10/16 09:00 10/10/16 08:59 Ferrous Sulfate (Feosol Tab) 325 mg BIDM PO 09/09/16 16:30 10/09/16 16:29 Zolpidem Tartrate (Ambien Tab) 2.5 mg HS PRN PO 09/09/16 10:15 10/09/16 10:14
[2016-09-09] MEDS: FERROUS SULFATE 325 MG TAB PO SCH (16:19)
--- NOTE | 2016-09-09 19:21 | Pulmonary Consultation ---
History General Date of Service: Sep 09, 2016. Stated Complaint: Respiratory Failure HPI The patient is a 61 year old female who presents to [facility] with complaints of Respiratory Failure. The patient's primary care provider is Martina Jay M.D.. This is a 61-year-old morbidly obese female who has past medical history of asthma/COPD overlap syndrome (FEV1 of 66%), diabetes, hyperlipidemia and hypertension who presents to [facility] on 09/08/2016 with complaints of worsening dyspnea , wheezing, chest tightness, coughing and sputum production.. She denies any fevers, chills, chest pain. 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 She has a history of ICU admission and previous intubation in February of this year. She follows with the [facility] Pulmongist. Her pulmonary medications. , include Ventolin HFA 2 puffs inhaled every 4 hours, Brovana 15 g inhaled twice a day, Breo Ellipta 200-25 1 puff BID, Singulair 10 mg by mouth daily, Spiriva cap inhaled daily, Combivent respimet, 1 puff INH QID, DuoNeb when necessary. She says that she tries to be compliant with medications, but has some difficult. Initial vitals in the ER, 37.4C, pulse 130, blood pressure 212/139 saturating 93% on 4 L nasal cannula. She was admitted for Acute respiratory failure secondary COPD exacerbation .During the course of her hospitalization she received systemic corticosteroids, Levaquin as well as inhaled bronchodilators. Initially she was started on positive pressure ventilation. Her symptoms improved somewhat but she was transferred to ICU for further closer monitoring. At the time of my evaluation, she states that she is feeling much better. She is less short of breath and chest tightness has improved. She want to go home in AM. Past Medical History Past Medical History: Morbid obesity Obesity hypoventilation syndrome Nocturnal hypoxemia without ARYAN diagnosed in 2012 oxygen dependent on 2 L nasal cannula since 2012 Left upper lobe pulmonary nodule 2 mm stable since May 2010 Hiatal hernia GERD Depression Osteoarthritis Restless leg syndrome secondary to iron deficiency anemia Diabetes type 2 Hyperlipidemia Hypertension C6 disc disease Past Medical History: COPD, other Past Surgical History: no surgical history Family History Diabetes mellitus FH: heart disease FH: lung disease FHx: cancer Hypertension Social History Hx Tobacco Use In Past Year?: No Smoking Status: Former Smoker Alcohol: socially Drug Use: other Marital status: single Housing status: lives with family Occupational Status: disabled Immunizations History of Influenza Vaccine: Yes Influenza Vaccine Date: Nov 27, 2010 History of Tetanus Vaccine?: No History of Pneumococcal: Yes Pneumococcal Date: Mar 16, 2009 History of Hepatitis B Vaccine: No History of MDRO History of MDRO: No Allergies Coded Allergies: No Known Allergies (Verified , 02/21/16) Current Medications Reported Home Medications Medications Dose Route/Sig Max Daily Dose Days Date Category Dose Instructions Spiriva Handihaler (Tiotropium Tecopa) 30 Puff/540 Mcg Aerp 1 Cap INH DAILY 09/08/16 Reported Combivent Respimat (Ipratropium-Albuterol) 1 Aer Aer 1 Puffs INH QID 09/08/16 Reported Ventolin Hfa (Albuterol) 200 Puffs/86560 Mcg Aers 2 Puffs INH Q4H 09/08/16 Reported Ferrous Sulfate 325 Mg Tab 1 Tabs PO BID 30 03/10/16 Rx Ricola (Menthol) 24 Von/1 Box Lozg 1 Von PO PRN PRN 03/10/16 Rx [place] 5MG/325MG (Acetaminophen/Hydrocodone Bitart) Tab 1 Tablet PO Q8 PRN 03/10/16 Rx may take 1 extra if needed Vitamin B12 (Cyanocobalamin) 1,000 Mcg Tab 1,000 Mcg PO DAILY 02/21/16 Reported Potassium Chloride Er (Potassium Chloride) 10 Meq Tab 1 Tab PO DAILY PRN 12/28/15 Reported Brovana (Arformoterol Tartrate) 15 Mcg/2 Ml Neb 15 Mcg IN BID 12/28/15 Reported Mirapex Er (Pramipexole Dihydrochloride) 1.5 Mg Tab 1-2 Tabs PO HS PRN 12/28/15 Reported Duoneb (Ipratropium-Albuterol) 3 Ml Nebu 1 Treatment INH Q4H PRN 12/28/15 Reported Amitriptyline HCl 10 Mg Tab 10 Mg PO HS 12/28/15 Reported Breo Ellipta 200-25 Mcg/INH (Fluticasone Furoate-Vilanterol) 1 Inh Inh 1 Puff PO DAILY 12/28/15 Reported Tessalon Perles (Benzonatate) 100 Mg Cap 1-2 Cap PO TID PRN 5 12/28/15 Reported Oxygen Gas 2 Liters NA HS 07/23/15 Reported may use during day when needed Lipitor (Atorvastatin Calcium) 10 Mg Tab 10 Mg PO QAM 07/23/15 Reported Lasix (Furosemide) 20 Mg Tab 20 Mg PO QAM PRN 07/23/15 Reported Flexeril (Cyclobenzaprine Hcl) 10 Mg Tab 10 Mg PO BID PRN 07/23/15 Reported Singulair (Montelukast Sodium) 10 Mg Tab 10 Mg PO QAM 07/23/15 Reported Glucophage (Metformin Hcl) 1,000 Mg Tab 1,000 Mg PO BID 07/23/15 Reported Protonix (Pantoprazole Sodium) 40 Mg Tab 40 Mg PO QAM 07/23/15 Reported Cozaar (Losartan Potassium) 25 Mg Tab 25 Mg PO QAM 07/23/15 Reported Zantac (Ranitidine HCl) 300 Mg Tab 300 Mg PO HS 07/23/15 Reported Neurontin (Gabapentin) 100 Mg Cap 100 Mg PO TID 07/23/15 Reported Mirapex (Pramipexole Dihydrochloride) 0.5 Mg Tab 0.5 Mg PO BID 07/23/15 Reported Amaryl (Glimepiride) 1 Mg Tab 0.5 Tab PO QAM PRN 05/26/15 Reported Physical Physical Exam Vital Signs: Date Time Temp Pulse Resp B/P (MAP) Pulse Ox O2 Delivery O2 Flow Rate FiO2 09/09/16 15:50 36.6 110 18 148/79 (102) 100 Nasal Cannula 2.0 09/09/16 15:37 113 16 98 Nasal Cannula 2.0 09/09/16 15:30 Nasal Cannula 2.0 09/09/16 11:10 Nasal Cannula 2.0 09/09/16 11:10 37.0 102 20 162/87 (112) 100 Nasal Cannula 2.0 09/09/16 11:08 103 16 100 Nasal Cannula 2.0 09/09/16 11:00 104 21 97 09/09/16 10:01 109 29 162/87 (103) 98 09/09/16 10:00 109 24 98 09/09/16 09:29 108 20 104/89 (94) 99 Nasal Cannula 2.0 09/09/16 09:01 112 34 104/97 (100) 09/09/16 09:00 112 27 09/09/16 08:01 109 16 147/73 (83) 94 09/09/16 08:00 108 21 100 09/09/16 07:25 37.2 97 16 168/87 (114) 100 Nasal Cannula 2.0 09/09/16 07:25 Nasal Cannula 2.0 09/09/16 07:05 111 16 100 Nasal Cannula 2.0 09/09/16 07:01 98 17 168/87 (106) 100 09/09/16 07:00 100 18 100 09/09/16 06:30 99 19 137/83 (98) 100 09/09/16 06:01 105 21 139/104 (109) 100 09/09/16 05:01 102 21 135/70 (79) 100 09/09/16 04:02 102 18 141/89 (107) 100 09/09/16 04:00 100 Nasal Cannula 2.0 09/09/16 04:00 36.8 09/09/16 03:53 103 16 100 Nasal Cannula 2.0 09/09/16 03:01 101 18 139/74 (102) 100 09/09/16 02:01 101 19 152/87 (106) 100 09/09/16 01:01 100 18 135/89 (109) 100 09/09/16 00:01 101 17 127/81 (101) 100 09/09/16 00:01 36.7 09/08/16 23:59 100 Nasal Cannula 2.0 09/08/16 23:42 108 16 100 Nasal Cannula 3.0 09/08/16 23:02 115 24 134/72 (83) 92 09/08/16 22:01 108 19 126/72 (105) 96 09/08/16 21:01 105 21 108/65 (71) 96 09/08/16 20:01 114 25 113/80 (93) 100 09/08/16 20:00 113 20 98 09/08/16 20:00 36.7 09/08/16 20:00 96 Nasal Cannula 3.0 09/08/16 19:05 119 18 96 Nasal Cannula 3.0 09/08/16 19:01 112 17 127/81 (110) 97 General Appearance: Awake alert oriented 3, Head: NORMOCEPHALIC, ATRAUMATIC Eyes: PERRLA, NO DISCHARGE, SCLERAE NORMAL ENT: Within normal limits Neck: NORMAL RANGE OF MOTION, supple Respiratory: Cardiovasular: REGULAR RATE/RHYTHM, NORMAL S1S2, NO M/G/R, NO MURMUR, NO GALLOP Abdomen: NON TENDER, NORMAL BOWEL SOUNDS, NO MASSES Back: NORMAL INSPECTION, NO CVA TENDERNESS Upper Extremities: NO EDEMA, Lower Extremities: edema (bilateral 1+ pitting edema), no cyanosis, no clubbing Pulses: +1 b/LE Neuro: Awake alert oriented 3 no neurological focal motor or sensory deficits. Psychiatric: No apparent suicidal ideations, normal affect Diagnostics Labs Results Past 24 Hours Test 09/08/16 21:28 09/09/16 01:37 09/09/16 04:16 09/09/16 05:22 Range/Units Bedside Glucose 219 251 70-90 mg/dl Urine Color YELLOW Urine Appearance CLEAR CLEAR Urine pH 7.5 4.5-7.5 Urine Specific Kane 1.028 1.000-1.030 Urine Protein NEG NEG Urine Glucose (UA) 3+ NEG Urine Ketones NEG NEG Urine Occult Blood NEG NEG Urine Nitrite NEG NEG Urine Bilirubin NEG NEG Urine Urobilinogen NEG NEG Urine Leukocyte Esterase NEG NEG White Blood Count 5.84 4.8-10.8 K/uL Red Blood Count 3.73 4.2-5.4 M/uL Hemoglobin 9.8 12.0-16.0 g/dL Hematocrit 32.0 37-47 % Mean Corpuscular Volume 85.8 80-100 fL Mean Corpuscular Hemoglobin 26.3 25-34 pg Mean Corpuscular Hemoglobin Concent 30.6 32-36 g/dl Platelet Count 365 130-400 K/uL Mean Platelet Volume 8.9 7.4-10.4 fL Neutrophils (%) (Auto) 70.9 % Lymphocytes (%) (Auto) 20.4 % Monocytes (%) (Auto) 8.2 % Eosinophils (%) (Auto) 0.0 % Basophils (%) (Auto) 0.0 % Neutrophils # (Auto) 4.14 1.4-6.5 K/uL Lymphocytes # (Auto) 1.19 1.2-3.4 K/uL Monocytes # (Auto) 0.48 0.11-0.59 K/uL Eosinophils # (Auto) 0.00 0-0.5 K/uL Basophils # (Auto) 0.00 0-0.2 K/uL RDW Standard Deviation 50.6 36.4-46.3 fL RDW Coefficient of Variation 15.9 11.5-14.5 % Immature Granulocyte % (Auto) 0.5 % Immature Granulocyte # (Auto) 0.03 0.00-0.02 K/uL Sodium Level 140 136-145 mmol/L Potassium Level 4.4 3.5-5.1 mmol/L Chloride Level 104 98-107 mmol/L Carbon Dioxide Level 28 21-32 mmol/L Anion Gap 8.0 3-11 mmol/L Blood Urea Nitrogen 18 7-18 mg/dl Creatinine 0.94 0.60-1.20 mg/dl Est Creatinine Clear Calc Drug Dose 73.3 ml/min Estimated GFR () 75.4 Estimated GFR (Non- 65.0 BUN/Creatinine Ratio 19.1 10-20 Random Glucose 183 70-99 mg/dl Estimated Average Glucose 140 mg/dl Hemoglobin A1c 6.5 4.5-5.6 % Calcium Level 8.8 8.5-10.1 mg/dl Phosphorus Level 2.1 2.5-4.9 mg/dl Magnesium Level 2.6 1.8-2.4 mg/dl Test 09/09/16 06:05 09/09/16 10:55 09/09/16 16:07 Range/Units Bedside Glucose 190 194 312 70-90 mg/dl Diagnostic Radiology CXR 09/09/2016 FINDINGS: Subtle increase in basilar interstitial markings bilaterally. Mid and upper lungs are considered clear. No evidence for focal or consolidative infiltrate. Subtle indistinctness of the cardiac borders bilaterally. IMPRESSION: Moderate bibasilar interstitial change, possibly inflammatory. CT chest with contrast 02/26/2016 No pathologically enlarged axillary mediastinal or hilar lymph nodes were visualized. There was no evidence of thoracic aortic dilatation. There were no pulmonary artery filling defects to indicate acute pulmonary embolism. CT chest with contrast 12/11/2013 Impression Severe COPD. There is no airspace consolidation or pleural effusion. There is no abnormality in the left upper lobe identified to correspond to the abnormality suggested by chest x-ray dated 12/09/2013. The x-ray finding was likely artifactual. A 2 mm left apical pulmonary nodule is unchanged dating back to 2010 and is of doubtful clinical significance. EKG Sinus tachycardia at 124 bpm Impression Assessment and Plan Asthma COPD overlap syndrome with exacerbation Obesity hypoventilation syndrome Acute on chronic Hypercarbic hypoxic respiratory failure with respiratory acidosis Fluid overload Patient appears to have difficult to control asthma/COPD overlap syndrome. There may be an issue with medicine compliance and inability to avoid triggers.Try to obtain sputum as this exacerbation could be infectious in etiology.. At this time I recommend the patient continue on BiPAP to assist with the work of breathing. Keep SaO2 between 88-92%. Try to avoid hyperoxia as this can worsen hypercarbia. Continue with bronchodilators every 4-6 hours. Solu-Medrol every 8 hours. I agree with course of antibiotics for one week for COPD exacerbation. There is a component of fluid overload so she benefit from gentle diuresis. I would try to maintain a negative balance. Lastly, I will try to obtain outpatient pulmonology to assist with continuity of care. I appreciate the consult and will continue to follow.
[2016-09-09] MEDS: ENOXAPARIN 40 MG/0.4 ML SYR SQ SCH (20:31)
[2016-09-09] MEDS: MONTELUKAST SOD 10 MG TAB PO SCH (20:31)
[2016-09-09] MEDS: AMITRIPTYLINE HCL 10 MG TAB PO SCH (20:32)
[2016-09-10] VITALS (7 sets, daily range): BP systolic 116–143; BP diastolic 67–85; PULSE 93–102; TEMP 36.7; O2SAT 94–100
[2016-09-10] MEDS ORDERED: INSULIN ASPART 100 UNITS/ML 3 ML PEN SC ONE (02:00)
[2016-09-10] MEDS: IPRATROPIUM BROMIDE NEB SOLN 0.02% 2.5 ML VIAL INH SCH ×3 (03:16→11:12)
[2016-09-10] MEDS: LEVALBUTEROL 1.25MG/0.5ML NEB INH SCH ×3 (03:16→11:13)
[2016-09-10] MEDS: METHYLPREDNISOLONE IV 60 MG in SYRINGE 0 ML IV SCH (05:59)
[2016-09-10 06:44] LABS: COMPLETE YES; HEMATOCRIT 31.5 % (37-47); IG% 0.4 %; LYMPH % 17.5 %; LYMPH ABS # 1.27 K/uL (1.2-3.4); MEAN CELL VOLUME 85.1 fL (80-100); MEAN CORPUSCULAR HEMOGLOBIN 26.8 pg (25-34); MEAN CORPUSCULAR HGB CONC 31.4 g/dl (32-36); MEAN PLATELET VOLUME 8.9 fL (7.4-10.4); MONO % 8.4 %; NEUT % 73.7 %; PLATELET COUNT 374 K/uL (130-400); WHITE BLOOD COUNT 7.24 K/uL (4.8-10.8)
[2016-09-10 07:18] LABS: BUN/CREATININE RATIO 29.4 (10-20); CALCIUM 8.7 mg/dl (8.5-10.1); CREATININE 0.75 mg/dl (0.60-1.20); MAGNESIUM 2.5 mg/dl (1.8-2.4); POTASSIUM 4.1 mmol/L (3.5-5.1)
[2016-09-10 07:25] LABS: PHOSPHORUS 3.9 mg/dl (2.5-4.9)
[2016-09-10] MEDS: INSULIN GLARGINE SOLOSTAR 100 UNITS/ML 3 ML PEN SC SCH (08:10)
[2016-09-10] MEDS: INSULIN ASPART 100 UNITS/ML 3 ML PEN SC SCH (08:10)
[2016-09-10] MEDS: LEVOFLOXACIN / D5W 750 MG in PREMIXED IN D5W 150 ML IV SCH (08:12)
[2016-09-10] MEDS: GABAPENTIN 100 MG CAP PO SCH (08:12)
[2016-09-10] MEDS: FERROUS SULFATE 325 MG TAB PO SCH (08:12)
[2016-09-10] MEDS: LOSARTAN POTASSIUM 25 MG TAB PO SCH (08:13)
[2016-09-10] MEDS: ATORVASTATIN 10 MG TAB PO SCH (08:13)
[2016-09-10] MEDS: PRAMIPEXOLE DIHYDROCHLORIDE 0.5 MG TAB PO SCH (08:13)
[2016-09-10] MEDS: POT PHOSPHATE MONOBASIC W/ SOD TAB PO SCH (08:14)
[2016-09-10] MEDS ORDERED: PANTOprazole SOD 40 MG TAB PO SCH (09:00)
--- NOTE | 2016-09-10 10:46 | Pharmacy Progress Note ---
Glycemic Control Progress Note Date of Service Sep 10, 2016. Scope Glycemic Pharmacist consulted for glycemic control to write orders per [facility] inpatient glycemic control protocol. Objective Accuchecks BSG (last 24hrs): Test 09/09/16 10:55 09/09/16 16:07 09/09/16 20:20 09/10/16 01:49 Bedside Glucose 194 mg/dl (70-90) 312 mg/dl (70-90) 173 mg/dl (70-90) 165 mg/dl (70-90) Test 09/10/16 06:12 09/10/16 06:46 Random Glucose 127 mg/dl (70-99) Bedside Glucose 138 mg/dl (70-90) HbA1c: Test 09/09/16 05:22 Hemoglobin A1c 6.5 % (4.5-5.6) H Recent Pertinent Medications The patient is currently receiving: * Basal insulin: Lantus 0, 10 or 20 units every 12 hours, based upon BSG 09/08 Received 28 units total 09/09 Received 30 units total * Correctional Insulin: Novolog Correction per scale ACHS Goal Range: Low 140 mg/dL - High 180 mg/dL Correction Factor: 20 mg/dL/unit * Prandial insulin: Per carb ratio of 1 unit per 6 grams CHO consumed * Oral Agents: None at this time Risk factors for insulin resistance: * Solu-medrol 60 mg IV q8h * Pneumonia/COPD exacerbation * type 2 diabetes diet - consuming ~60 gm CHO with each meal Outpatient Anti-Diabetic Meds Outpatient Anti-diabetic Regimen: * Metformin 1000 mg po BID * Amaryl 0.5 mg po daily Assessment & Plan ASSESSMENT: * See progress note from 09/09 for more background info, in short: * Pt receiving SQ basal bolus insulin regimen for hyperglycemia secondary to baseline DM (outpatient regimen on hold),stress/infection, steroids * Patient is currently receiving an average of 78 units of insulin per day * ~30 units of basal insulin * BSGs ranging 127 - 196 mg/dl over the past 24hrs PLAN FOR INPATIENT GLYCEMIC CONTROL: * Change Lantus to 0, 15 or 20 units SQ BID - based upon BSG * Anticipating basal needs of ~30 units/day * Continue correction factor of 20 mg/dl/unit * Continue carb ratio of 1 unit per 6 grams CHO consumed * Continue goal range of Low 110 mg/dL - High 140 mg/dL * Please note that the plan above was derived based on current level of insulin resistance and hospital stress. These recommendations are appropriate for inpatient admission only. Plan of care upon discharge will need to be reassessed to avoid potential outpatient hypo/hyperglycemia. Thank you.
--- NOTE | 2016-09-10 13:08 | Progress Note ---
Medicine Progress Note Date & Time of Visit: Sep 10, 2016 at 13:00. Subjective patient seen resting in bedside chair, comfortable states she feels much better, back to baseline denies dyspnea, chest pain cough also much improved denies chest pain, dizziness, nausea, palpitations ambulating with no problems states she is ready and would like to be discharged today Objective Last 8 Hrs Date Time Temp Pulse Resp B/P (MAP) Pulse Ox O2 Delivery O2 Flow Rate FiO2 09/10/16 12:00 Nasal Cannula 2.0 09/10/16 11:13 100 16 99 Nasal Cannula 2.0 09/10/16 10:46 36.7 102 18 143/80 (101) 100 2.0 09/10/16 08:00 Nasal Cannula 2.0 09/10/16 07:42 100 16 94 Nasal Cannula 2.0 09/10/16 07:18 36.7 93 18 116/67 (83) 98 Room Air Physical Exam: General- oriented x 3, not in distress, speaks in sentences with no effort Neck- no JVD Lungs- mild wheeze bilaterally, no crackles Heart- regular rhythm; no murmur,normal rate Abdomen- normal bowel sounds, soft, nontender Extremities- no pretibial edema, no calf tenderness Neuro- alert, oriented x 3, no gross deficits Skin- warm & dry Laboratory Results: Last 24 Hours Test 09/09/16 16:07 09/09/16 20:20 09/10/16 01:49 09/10/16 06:12 Bedside Glucose 312 mg/dl 173 mg/dl 165 mg/dl White Blood Count 7.24 K/uL Red Blood Count 3.70 M/uL Hemoglobin 9.9 g/dL Hematocrit 31.5 % Mean Corpuscular Volume 85.1 fL Mean Corpuscular Hemoglobin 26.8 pg Mean Corpuscular Hemoglobin Concent 31.4 g/dl Platelet Count 374 K/uL Mean Platelet Volume 8.9 fL Neutrophils (%) (Auto) 73.7 % Lymphocytes (%) (Auto) 17.5 % Monocytes (%) (Auto) 8.4 % Eosinophils (%) (Auto) 0.0 % Basophils (%) (Auto) 0.0 % Neutrophils # (Auto) 5.33 K/uL Lymphocytes # (Auto) 1.27 K/uL Monocytes # (Auto) 0.61 K/uL Eosinophils # (Auto) 0.00 K/uL Basophils # (Auto) 0.00 K/uL RDW Standard Deviation 50.1 fL RDW Coefficient of Variation 16.0 % Immature Granulocyte % (Auto) 0.4 % Immature Granulocyte # (Auto) 0.03 K/uL Nucleated RBC Absolute Count (auto) 0.02 K/uL Nucleated Red Blood Cells % 0.3 % Sodium Level 142 mmol/L Potassium Level 4.1 mmol/L Chloride Level 107 mmol/L Carbon Dioxide Level 29 mmol/L Anion Gap 6.0 mmol/L Blood Urea Nitrogen 22 mg/dl Creatinine 0.75 mg/dl Est Creatinine Clear Calc Drug Dose 91.4 ml/min Estimated GFR () 99.0 Estimated GFR (Non- 85.4 BUN/Creatinine Ratio 29.4 Random Glucose 127 mg/dl Calcium Level 8.7 mg/dl Phosphorus Level 3.9 mg/dl Magnesium Level 2.5 mg/dl Test 09/10/16 06:46 09/10/16 11:11 Bedside Glucose 138 mg/dl 169 mg/dl Assessment & Plan 61 year old female with history of Severe COPD, DM, HTN, GERD, Depression presenting with cough and shortness of breath x few days. COPD EXACERBATION BILATERAL LOWER LOBE PNEUMONIA - off bipap, weaned off oxygen supplementation 97% on room air - sputum cultures: negative - placed on: Solumedrol 60mg q8h Nebs q4h Levaquin IV x 3 days - consulted Pulmonary Dr. [place] cleared for discharge today - discharge on: Prednisone taper Levaquin PO x 2 more days continue usual bronchodilators - advised ff up with [facility] this week PCP in 2 weeks DM 2 - Pharmacy consulted given Insulin as inpatient - resume oral medications at home HTN - continue Losartan DEPRESSION - stable NOCTURNAL HYPOXEMIA - o2 at HS HOARSENESS - has history of smoking - will need outpatient ENT referral - please follow up DVT PROPHYLAXIS Lovenox given Full Code Dispo d/c home ff up noted in #1 case discussed with patient and her daughter at length they are agreeable and comfortable with plan of care Current Inpatient Medications: Current Inpatient Medications Medications (Trade) Dose Ordered Sig/Allison Route Start Time Stop Time Status Last Admin Dose Admin Enoxaparin Sodium (Lovenox Inj) 40 mg Q24H SQ 09/08/16 20:00 10/08/16 19:59 09/09/16 20:31 40 MG Acetaminophen (Tylenol Tab) 650 mg Q4H PRN PO 09/08/16 10:45 10/08/16 10:44 Levalbuterol (Xopenex 1.25MG/ 0.5ML Neb) 1.25 mg Q4R INH 09/08/16 12:00 10/08/16 11:59 09/10/16 11:13 1.25 MG Ipratropium [place] (Atrovent 0.02% 0.5MG/2.5ML Neb) 0.5 mg Q4R INH 09/08/16 12:00 10/08/16 11:59 09/10/16 11:12 0.5 MG Methylprednisolone Sodium Succinate 60 mg/Syringe 0.96 ml @ 1.5 mls/min Q8 IV 09/08/16 14:00 10/08/16 13:59 09/10/16 05:59 1.5 MLS/MIN Levofloxacin 750 mg/Prmx 150 ml @ 100 mls/hr Q24H IV 09/09/16 09:00 09/15/16 08:59 09/10/16 08:12 100 MLS/HR Miscellaneous Information (Consult Glycemic Management Pharmacy) 1 ea UD PRN N/A 09/08/16 11:12 10/08/16 11:11 Amitriptyline HCl (Elavil Tab) 10 mg HS PO 09/08/16 21:00 10/08/16 20:59 09/09/16 20:32 10 MG Atorvastatin Calcium (Lipitor Tab) 10 mg QAM PO 09/09/16 09:00 10/09/16 08:59 09/10/16 08:13 10 MG Cyclobenzaprine HCl (Flexeril Tab) 10 mg BID PRN PO 09/08/16 11:00 10/08/16 10:59 09/09/16 07:59 10 MG Gabapentin (Neurontin Cap) 100 mg TID PO 09/08/16 21:00 10/08/16 20:59 09/10/16 08:12 100 MG Losartan Potassium (coZAAR TAB) 25 mg QAM PO 09/09/16 09:00 10/09/16 08:59 09/10/16 08:13 25 MG Montelukast Sodium (Singulair Tab) 10 mg HS PO 09/08/16 21:00 10/08/16 20:59 09/09/16 20:31 10 MG Pramipexole Dihydrochloride (miraPEX TAB) 0.5 mg BID PO 09/08/16 21:00 10/08/16 20:59 09/10/16 08:13 0.5 MG Miscellaneous Information (Order Awaiting Action) 1 ea QS N/A 09/08/16 16:00 10/08/16 15:59 Ipratropium [place] (Atrovent 0.02% 0.5MG/2.5ML Neb) 0.5 mg Q6H PRN INH 09/08/16 12:00 10/08/16 11:59 Levalbuterol (Xopenex 1.25MG/ 0.5ML Neb) 1.25 mg Q6H PRN INH 09/08/16 12:00 10/08/16 11:59 Insulin Aspart (novoLOG ASPART) SLIDING SCALE ACHS SC 09/08/16 16:00 10/08/16 15:59 09/10/16 08:10 12 UNITS Menthol (Nice Von) 1 von PRN PRN PO 09/09/16 04:45 10/09/16 04:44 Insulin Glargine (Lantus Solostar Pen) BID SC 09/09/16 09:00 10/09/16 08:59 09/10/16 08:10 20 UNITS Potassium/ Phosphorus/Sodium (Phospha 250 Neutral 155-852-130 Mg) 1 tab QID PO 09/09/16 13:00 10/09/16 12:59 09/10/16 08:14 1 TAB Pantoprazole Sodium (Protonix Tab) 40 mg QAM PO 09/10/16 09:00 10/10/16 08:59 09/10/16 08:14 40 MG Ferrous Sulfate (Feosol Tab) 325 mg BIDM PO 09/09/16 16:30 10/09/16 16:29 09/10/16 08:12 325 MG Zolpidem Tartrate (Ambien Tab) 2.5 mg HS PRN PO 09/09/16 10:15 10/09/16 10:14 09/09/16 23:08 2.5 MG Clonidine HCl (Catapres Tab) 0.1 mg Q6H PRN PO 09/09/16 14:45 10/09/16 14:44
[2016-09-10] MEDS ORDERED: VNTHFA/IN INH (13:17)
[2016-09-10] MEDS ORDERED: LEVO-18 PO (13:17)
[2016-09-10] MEDS ORDERED: PRED10TA PO (13:17)
--- NOTE | 2016-09-10 13:20 | Discharge Instructions ---
Discharge Instructions Date of Service Sep 10, 2016. Admission Reason for Admission: Respiratory Failure Discharge Discharge Diagnosis / Problem: COPD Exacerbation, Pneumonia Discharge Goals Goal(s): Diagnostic testing, Therapeutic intervention Activity Recommendations Activity Limitations: as noted below (no heavy exertion until re-evaluated by Lung Specialist or Primary Care Physician) Lifting Limitations: until after follow-up appointment Exercise/Sports Limitations: until after follow-up appointment . Instructions / Follow-Up Instructions / Follow-Up PLEASE REVIEW YOUR NEW MEDICATION LIST AND FOLLOW INSTRUCTIONS CAREFULLY. CALL PRIMARY CARE PHYSICIAN OR RETURN TO ER IMMEDIATELY IF WITH RECURRENCE OF SYMPTOMS. AVOID EXPOSURE TO DUST, SECOND HAND SMOKE. FOLLOW UP WITH STRAW BOSS(LUNG SPECIALIST) THIS WEEK. FOLLOW UP WITH PRIMARY CARE PHYSICIAN IN 2 WEEKS. Current Hospital Diet Patient's current hospital diet: Diabetes Type 2 Diet, AHA Diet (Heart Healthy) Discharge Diet Recommended Diet: AHA Diet (Heart Healthy), Low Sodium Diet (2gm Na) Pending Studies Studies pending at discharge: no Laboratory Results Hemoglobin A1c Test 09/09/16 05:22 Range/Units Estimated Average Glucose 140 mg/dl Hemoglobin A1c 6.5 H 4.5-5.6 % Medical Emergencies . Who to Call and When: Medical Emergencies: If at any time you feel your situation is an emergency, please call 911 immediately. . Non-Emergent Contact Non-Emergency issues call your: Primary Care Provider, Soil Scientist Call Non-Emergent contact if: you have a fever, you have any medication questions . . "Provider Documentation" section prepared by Rene Murillo. . VTE Core Measure Inpt VTE Proph given/why not?: Enoxaparin (Lovenox)SQ
--- NOTE | 2016-09-10 13:25 | Discharge Summary ---
Discharge Summary Date of Service Sep 10, 2016. Discharge Summary Admission Date: Sep 08, 2016 at 10:54 Discharge Date: Sep 10, 2016 Discharge Disposition: Home Principal Diagnosis: COPD EXACERBATION BILATERAL LOWER LOBE PNEUMONIA Secondary Diagnoses/Problems: PLEASE REFER TO HOSPITAL COURSE BELOW. Procedures: CHEST ONE VIEW PORTABLE CLINICAL HISTORY: EVALUATE RESPIRATORY DISTRESS. DYSPNEA COMPARISON STUDY: 03/03/2016 FINDINGS: Subtle increase in basilar interstitial markings bilaterally. Mid and upper lungs are considered clear. No evidence for focal or consolidative infiltrate. Subtle indistinctness of the cardiac borders bilaterally. IMPRESSION: Moderate bibasilar interstitial change, possibly inflammatory. Consultations: PULMONARY DR. MALDONADO Pending Studies/Follow-Up: MAY NEED ENT REFERRAL FOR PERSISTENT HOARSENESS, HISTORY OF SMOKING; PLEASE REFER TO HOSPITAL COURSE BELOW FOR FURTHER DETAILS. Medication Reconciliation New Medications: Levofloxacin (Levaquin) 750 Mg Tab 750 MG PO DAILY for 2 Days, #2 TAB 0 Refills Prednisone Tab (Prednisone) 10 Mg Tab 10 MG PO UD, #27 TAB take 6 tabs po daily x 2 days, then take 4 tabs po daily x 2 days, then take 2 tabs po daily x 2 days, then take 1 tab po daily x 2 days, then take 1/2 tab po daily x 2 days, then STOP Changed Medications: Albuterol Hfa (Ventolin Hfa) 200 Puffs/07370 Mcg Aers 2 PUFFS INH Q4H PRN for Shortness of Breath, #1 INHALER (Medication details modified) Continued Medications: Amitriptyline HCl (Amitriptyline HCl) 10 Mg Tab 10 MG PO HS Atorvastatin (Lipitor) 10 Mg Tab 10 MG PO QAM, 5 Refills Benzonatate (Tessalon Perles) 100 Mg Cap 1-2 CAP PO TID PRN for Cough for 5 Days, #60 CAP Cyanocobalamin (Vitamin B12) 1,000 Mcg Tab 1000 MCG PO DAILY Cyclobenzaprine Hcl (Flexeril) 10 Mg Tab 10 MG PO BID PRN for Muscle Spasms Ferrous Sulfate (Ferrous Sulfate) 325 Mg Tab 1 TABS PO BID for 30 Days Fluticasone Furoate-Vilanterol (Breo Ellipta 200-25 Mcg/INH) 1 Inh Inh 1 PUFF PO DAILY Furosemide (Lasix) 20 Mg Tab 20 MG PO QAM PRN for fluid and wt gain Gabapentin (Neurontin) 100 Mg Cap 100 MG PO TID Glimepiride (Amaryl) 1 Mg Tab 0.5 TAB PO QAM PRN for while on prednisone, 5 Refills Home O2 Therapy (Oxygen) Gas 2 LITERS NA HS may use during day when needed Hydrocodone/Acetaminophen 5MG/325MG ([place] 5MG/325MG) Tab 1 TABLET PO Q8 PRN for Moderate Pain, #30 may take 1 extra if needed Ipratropium-Albuterol (Duoneb) 3 Ml Nebu 1 TREATMENT INH Q4H PRN for SOB/Wheezing, INHA Ipratropium-Albuterol (Combivent Respimat) 1 Aer Aer 1 PUFFS INH QID, INH Losartan Potassium (Cozaar) 25 Mg Tab 25 MG PO QAM Menthol (Ricola) 24 Ayden/1 Box Lozg 1 AYDEN PO PRN PRN for SORE THROAT, #30 Metformin Hcl (Glucophage) 1,000 Mg Tab 1000 MG PO BID Montelukast Sodium (Singulair) 10 Mg Tab 10 MG PO QAM Pantoprazole Sodium (Protonix) 40 Mg Tab 40 MG PO QAM Potassium Chloride (Potassium Chloride Er) 10 Meq Tab 1 TAB PO DAILY PRN for with lasix, 3 Refills Pramipexole Dihydrochloride (Mirapex) 0.5 Mg Tab 0.5 MG PO BID Pramipexole Dihydrochloride (Mirapex Er) 1.5 Mg Tab 1-2 TABS PO HS PRN for RLS Ranitidine Hcl (Zantac) 300 Mg Tab 300 MG PO HS Tiotropium [place] (Spiriva Handihaler) 30 Puff/540 Mcg Aerp 1 CAP INH DAILY, INHALER Discontinued Medications: Arformoterol Tartrate (Brovana) 15 Mcg/2 Ml Neb 15 MCG IN BID Admission Information HPI (per Admitting provider): 61 year old female with history of Severe COPD, DM, HTN, GERD, Depression presenting with cough and shortness of breath x few days. Patient states for the past 3-5 days, she has been having increasing cough, with shortness of breath. No fever/chills. Symptoms worsened today prompting ER consult. At the ER, patient was placed on Bipap. PH 7.3 with respiratory acidosis CXR bilateral infiltrates Given IV Steroids, Levaquin, Nebs. On my exam, patient was wearing a Bipap mask. States she feels improved compared to admission. Denies active dyspnea, chest pain, or other symptoms. Physical Exam (per Admitting): General Appearance: WD/WN, no apparent distress Head: normocephalic, atraumatic Eyes: normal inspection, EOMI, sclerae normal ENT: normal ENT inspection, hearing grossly normal, pharynx normal Neck: supple, no adenopathy, thyroid normal, no JVD, trachea midline Respiratory/Chest: chest non-tender, no respiratory distress, no accessory muscle use, + pertinent finding ((+) diffuse wheezing bilaterally) Cardiovascular: regular rate, rhythm, no edema, no JVD, no murmur Abdomen/GI: normal bowel sounds, non tender, soft, no organomegaly Back: normal inspection, no CVA tenderness Extremities/Musculoskelatal: normal inspection, no calf tenderness, normal capillary refill, no pedal edema, normal range of motion, non-tender 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 COPD EXACERBATION BILATERAL LOWER LOBE PNEUMONIA - cxr: bibasilar infiltrates - sputum cultures: negative - placed on: Solumedrol 60mg q8h Nebs q4h Levaquin IV x 3 days - off bipap, weaned off oxygen supplementation 97% on room air - consulted Pulmonary Dr. Maldonado cleared for discharge - discharge on: Prednisone taper Levaquin PO x 2 more days continue usual bronchodilators - advised ff up with [facility] this week PCP in 2 weeks DM 2 - Pharmacy consulted given Insulin as inpatient - resume oral medications at home HTN - continue Losartan DEPRESSION - stable NOCTURNAL HYPOXEMIA - o2 at HS HOARSENESS - has history of smoking - will need outpatient ENT referral - please follow up DVT PROPHYLAXIS Lovenox given Full Code Dispo d/c home ff up noted in #1 case discussed with patient and her daughter at length they are agreeable and comfortable with plan of care Total time spent on discharge = 35 minutes This includes examination of the patient, discharge planning, medication reconciliation, and communication with other providers. Discharge Instructions Discharge Instructions Date of Service Sep 10, 2016. Admission Reason for Admission: Respiratory Failure Discharge Discharge Diagnosis / Problem: COPD Exacerbation, Pneumonia Discharge Goals Goal(s): Diagnostic testing, Therapeutic intervention Activity Recommendations Activity Limitations: as noted below (no heavy exertion until re-evaluated by Lung Specialist or Primary Care Physician) Lifting Limitations: until after follow-up appointment Exercise/Sports Limitations: until after follow-up appointment . Instructions / Follow-Up Instructions / Follow-Up PLEASE REVIEW YOUR NEW MEDICATION LIST AND FOLLOW INSTRUCTIONS CAREFULLY. CALL PRIMARY CARE PHYSICIAN OR RETURN TO ER IMMEDIATELY IF WITH RECURRENCE OF SYMPTOMS. AVOID EXPOSURE TO DUST, SECOND HAND SMOKE. FOLLOW UP WITH CLAY PRESS OPERATOR(LUNG SPECIALIST) THIS WEEK. FOLLOW UP WITH PRIMARY CARE PHYSICIAN IN 2 WEEKS. Current Hospital Diet Patient's current hospital diet: Diabetes Type 2 Diet, AHA Diet (Heart Healthy) Discharge Diet Recommended Diet: AHA Diet (Heart Healthy), Low Sodium Diet (2gm Na) Pending Studies Studies pending at discharge: no Laboratory Results Hemoglobin A1c Test 09/09/16 05:22 Range/Units Estimated Average Glucose 140 mg/dl Hemoglobin A1c 6.5 H 4.5-5.6 % Medical Emergencies . Who to Call and When: Medical Emergencies: If at any time you feel your situation is an emergency, please call 911 immediately. . Non-Emergent Contact Non-Emergency issues call your: Primary Care Provider, [facility] Call Non-Emergent contact if: you have a fever, you have any medication questions . . "Provider Documentation" section prepared by Rene Murillo. . VTE Core Measure Inpt VTE Proph given/why not?: Enoxaparin (Lovenox)SQ
--- NOTE | 2016-09-10 13:39 | Pulmonology Progress Note ---
Pulmonary Progress Note Date of Service Sep 10, 2016. Attending Dr. [place] Subjective Patient states that she's feeling much better. Still a little bit of wheeze but feels that she is back at her baseline. Denies any coughing, chest tightness or shortness of breath. She would like to be discharged home today. Objective General Appearance: Awake alert oriented 3, no acute respiratory distress, she is out of bed to chair Head: NORMOCEPHALIC, ATRAUMATIC Eyes: PERRLA, NO DISCHARGE, SCLERAE NORMAL ENT: Within normal limits Neck: NORMAL RANGE OF MOTION, supple Respiratory: Bilateral expiratory wheezing, no crackles Cardiovasular: REGULAR RATE/RHYTHM, NORMAL S1S2, NO M/G/R, NO MURMUR, NO GALLOP Abdomen: NON TENDER, NORMAL BOWEL SOUNDS, NO MASSES Back: NORMAL INSPECTION, NO CVA TENDERNESS Upper Extremities: NO EDEMA, Lower Extremities: edema (bilateral 1+ pitting edema), no cyanosis, no clubbing Pulses: +1 b/LE Neuro: Awake alert oriented 3 no neurological focal motor or sensory deficits. Psychiatric: No apparent suicidal ideations, normal affect Assessment & Plan Asthma COPD overlap syndrome with exacerbation Obesity hypoventilation syndrome Acute on chronic Hypercarbic hypoxic respiratory failure with respiratory acidosis Fluid overload Patient's symptoms have markedly improved this morning. She does still have some expiratory wheezes. She should continue long-term oxygen therapy. I feel that she is okay for discharge today. She should continue with prednisone taper for 7-10 days. Continue Levaquin for 1 week. I will continue her home pulmonary medications. I also stressed compliance with her medications for adequate symptom control. I stressed that she avoid known triggers of smoke and other caustic inhalants. She agreed and expressed full understanding.She should follow up with [facility] pulmonology as outpatient. Data Medications: Current Inpatient Medications Medications (Trade) Dose Ordered Sig/Allison Route Start Time Stop Time Status Last Admin Dose Admin Enoxaparin Sodium (Lovenox Inj) 40 mg Q24H SQ 09/08/16 20:00 10/08/16 19:59 09/09/16 20:31 40 MG Acetaminophen (Tylenol Tab) 650 mg Q4H PRN PO 09/08/16 10:45 10/08/16 10:44 Levalbuterol (Xopenex 1.25MG/ 0.5ML Neb) 1.25 mg Q4R INH 09/08/16 12:00 10/08/16 11:59 09/10/16 11:13 1.25 MG Ipratropium [place] (Atrovent 0.02% 0.5MG/2.5ML Neb) 0.5 mg Q4R INH 09/08/16 12:00 10/08/16 11:59 09/10/16 11:12 0.5 MG Methylprednisolone Sodium Succinate 60 mg/Syringe 0.96 ml @ 1.5 mls/min Q8 IV 09/08/16 14:00 10/08/16 13:59 09/10/16 05:59 1.5 MLS/MIN Levofloxacin 750 mg/Prmx 150 ml @ 100 mls/hr Q24H IV 09/09/16 09:00 09/15/16 08:59 09/10/16 08:12 100 MLS/HR Miscellaneous Information (Consult Glycemic Management Pharmacy) 1 ea UD PRN N/A 09/08/16 11:12 10/08/16 11:11 Amitriptyline HCl (Elavil Tab) 10 mg HS PO 09/08/16 21:00 10/08/16 20:59 09/09/16 20:32 10 MG Atorvastatin Calcium (Lipitor Tab) 10 mg QAM PO 09/09/16 09:00 10/09/16 08:59 09/10/16 08:13 10 MG Cyclobenzaprine HCl (Flexeril Tab) 10 mg BID PRN PO 09/08/16 11:00 10/08/16 10:59 09/09/16 07:59 10 MG Gabapentin (Neurontin Cap) 100 mg TID PO 09/08/16 21:00 10/08/16 20:59 09/10/16 08:12 100 MG Losartan Potassium (coZAAR TAB) 25 mg QAM PO 09/09/16 09:00 10/09/16 08:59 09/10/16 08:13 25 MG Montelukast Sodium (Singulair Tab) 10 mg HS PO 09/08/16 21:00 10/08/16 20:59 09/09/16 20:31 10 MG Pramipexole Dihydrochloride (miraPEX TAB) 0.5 mg BID PO 09/08/16 21:00 10/08/16 20:59 7/15/17 08:13 0.5 MG Miscellaneous Information (Order Awaiting Action) 1 ea QS N/A 09/08/16 16:00 10/08/16 15:59 Ipratropium [place] (Atrovent 0.02% 0.5MG/2.5ML Neb) 0.5 mg Q6H PRN INH 09/08/16 12:00 10/08/16 11:59 Levalbuterol (Xopenex 1.25MG/ 0.5ML Neb) 1.25 mg Q6H PRN INH 09/08/16 12:00 10/08/16 11:59 Insulin Aspart (novoLOG ASPART) SLIDING SCALE ACHS SC 09/08/16 16:00 10/08/16 15:59 09/10/16 08:10 12 UNITS Menthol (Nice Patsy) 1 patsy PRN PRN PO 09/09/16 04:45 10/09/16 04:44 Insulin Glargine (Lantus Solostar Pen) BID SC 09/09/16 09:00 10/09/16 08:59 09/10/16 08:10 20 UNITS Potassium/ Phosphorus/Sodium (Phospha 250 Neutral 155-852-130 Mg) 1 tab QID PO 09/09/16 13:00 10/09/16 12:59 09/10/16 08:14 1 TAB Pantoprazole Sodium (Protonix Tab) 40 mg QAM PO 09/10/16 09:00 10/10/16 08:59 09/10/16 08:14 40 MG Ferrous Sulfate (Feosol Tab) 325 mg BIDM PO 09/09/16 16:30 10/09/16 16:29 09/10/16 08:12 325 MG Zolpidem Tartrate (Ambien Tab) 2.5 mg HS PRN PO 09/09/16 10:15 10/09/16 10:14 09/09/16 23:08 2.5 MG Clonidine HCl (Catapres Tab) 0.1 mg Q6H PRN PO 09/09/16 14:45 10/09/16 14:44 Vital Signs: Date Time Temp Pulse Resp B/P (MAP) Pulse Ox O2 Delivery O2 Flow Rate FiO2 09/10/16 13:28 36.7 100 16 99 Nasal Cannula 09/10/16 12:00 Nasal Cannula 2.0 09/10/16 11:13 100 16 99 Nasal Cannula 2.0 09/10/16 10:46 36.7 102 18 143/80 (101) 100 2.0 09/10/16 08:00 Nasal Cannula 2.0 09/10/16 07:42 100 16 94 Nasal Cannula 2.0 09/10/16 07:18 36.7 93 18 116/67 (83) 98 Room Air 09/10/16 04:00 Nasal Cannula 2.0 09/10/16 03:48 36.7 95 22 137/85 (102) 98 Nasal Cannula 2.0 09/10/16 03:16 96 16 98 Nasal Cannula 2.0 09/09/16 23:59 Nasal Cannula 2.0 09/09/16 23:24 36.9 105 22 128/78 (95) 97 Nasal Cannula 2.0 09/09/16 23:09 106 16 98 Nasal Cannula 2.0 09/09/16 20:00 Nasal Cannula 2.0 09/09/16 19:37 108 18 98 Nasal Cannula 2.0 09/09/16 19:34 36.6 113 20 168/83 (111) 98 Nasal Cannula 2.0 09/09/16 15:50 36.6 110 18 148/79 (102) 100 Nasal Cannula 2.0 09/09/16 15:37 113 16 98 Nasal Cannula 2.0 09/09/16 15:30 Nasal Cannula 2.0 Laboratory Results: Last 24 Hours Test 09/09/16 16:07 09/09/16 20:20 09/10/16 01:49 09/10/16 06:12 Bedside Glucose 312 mg/dl 173 mg/dl 165 mg/dl White Blood Count 7.24 K/uL Red Blood Count 3.70 M/uL Hemoglobin 9.9 g/dL Hematocrit 31.5 % Mean Corpuscular Volume 85.1 fL Mean Corpuscular Hemoglobin 26.8 pg Mean Corpuscular Hemoglobin Concent 31.4 g/dl Platelet Count 374 K/uL Mean Platelet Volume 8.9 fL Neutrophils (%) (Auto) 73.7 % Lymphocytes (%) (Auto) 17.5 % Monocytes (%) (Auto) 8.4 % Eosinophils (%) (Auto) 0.0 % Basophils (%) (Auto) 0.0 % Neutrophils # (Auto) 5.33 K/uL Lymphocytes # (Auto) 1.27 K/uL Monocytes # (Auto) 0.61 K/uL Eosinophils # (Auto) 0.00 K/uL Basophils # (Auto) 0.00 K/uL RDW Standard Deviation 50.1 fL RDW Coefficient of Variation 16.0 % Immature Granulocyte % (Auto) 0.4 % Immature Granulocyte # (Auto) 0.03 K/uL Nucleated RBC Absolute Count (auto) 0.02 K/uL Nucleated Red Blood Cells % 0.3 % Sodium Level 142 mmol/L Potassium Level 4.1 mmol/L Chloride Level 107 mmol/L Carbon Dioxide Level 29 mmol/L Anion Gap 6.0 mmol/L Blood Urea Nitrogen 22 mg/dl Creatinine 0.75 mg/dl Est Creatinine Clear Calc Drug Dose 91.4 ml/min Estimated GFR () 99.0 Estimated GFR (Non- 85.4 BUN/Creatinine Ratio 29.4 Random Glucose 127 mg/dl Calcium Level 8.7 mg/dl Phosphorus Level 3.9 mg/dl Magnesium Level 2.5 mg/dl Test 09/10/16 06:46 09/10/16 11:11 Bedside Glucose 138 mg/dl 169 mg/dl
== END 2016-09-10 13:50 | disposition home or self-care (01) | DRG 190 ==
LOC: EDBD 08:22 → C.EDB 08:24 → C.MSICU 10:54 → ENRESERV 11:22 → C.2T 09-09 14:46
PROVIDERS: ADMIT Internal Medicine; ATTEND Internal Medicine
DX: J44.0 Chronic obstructive pulmonary disease with (acute) lower respiratory infection (principal); J18.9 Pneumonia, unspecified organism; J96.22 Acute and chronic respiratory failure with hypercapnia; J96.21 Acute and chronic respiratory failure with hypoxia; E66.2 Morbid (severe) obesity with alveolar hypoventilation; Z68.41 Body mass index [BMI] 40.0-44.9, adult; E87.2 Acidosis; J44.1 Chronic obstructive pulmonary disease with (acute) exacerbation; J45.909 Unspecified asthma, uncomplicated; R49.0 Dysphonia; D50.9 Iron deficiency anemia, unspecified; I10 Essential (primary) hypertension; E11.9 Type 2 diabetes mellitus without complications; K21.9 Gastro-esophageal reflux disease without esophagitis; F32.9 Major depressive disorder, single episode, unspecified; E78.5 Hyperlipidemia, unspecified; G25.81 Restless legs syndrome; Z51.81 Encounter for therapeutic drug level monitoring; Z79.899 Other long term (current) drug therapy; Z79.84 Long term (current) use of oral hypoglycemic drugs; Z99.81 Dependence on supplemental oxygen; Z85.41 Personal history of malignant neoplasm of cervix uteri; Z87.891 Personal history of nicotine dependence; Z83.3 Family history of diabetes mellitus; Z82.49 Family history of ischemic heart disease and other diseases of the circulatory system

== ENCOUNTER 2016-09-22 01:24 | Inpatient (IN) | payer OTHER ==
[2016-09-22] VITALS (15 sets, daily range): BP systolic 118–164; BP diastolic 61–98; PULSE 91–130; TEMP 35.9–36.9; O2SAT 94–100; Ht 157.5 cm; Wt 106.8 kg
[~2016-09-22] VITALS: Ht 157.5 cm; Wt 106.8 kg
[~2016-09-22 01:24] MED LIST changes: -ALBU1AER9 INH; -AMT10 PO; -ARFO15NE IN; -ATOR10TA88 PO; -AZIT250T5 PO; -BENZ100C84 PO; -CYAN100020 PO; -CYCL10TA6 PO; -FLNIN/ NAE; -GABA-112 PO; -GLIM1TAB PO; +IPRA1AER2 INH; -IPRASOL4 INH; +LEVO-18 PO; -METF1000 PO; -MONT1TAB3 PO; -PANT40TA PO; -PRAM1TAB47 PO; -PRED20TA2 PO; -RANI300T2 PO; +SPRIN/30 INH; -TIOTCAP INH; +VNTHFA/IN INH; -ZOLP10TA PO
--- NOTE | 2016-09-22 01:36 | EMERGENCY ROOM VISIT NOTE ---
History Report prepared by Hiral: Jana Ohara Under the Supervision of: Dr. Triston Shaw D.O. First contact with patient: 01:27 Chief Complaint: SHORTNESS OF BREATH Stated Complaint: SHORT OF BREATH History of Present Illness The patient is a 61 year old female who presents to the Emergency Room with complaints of persistent shortness of breath that began prior to arrival. Per EMS, the patient was recently evaluated in the hospital for a COPD and asthma exacerbation. EMS reports that the patient was intubated while she was in the hospital and was evaluated in the intensive care unit. EMS states that the patient took two Duoneb treatments prior to EMS arrival. EMS states that the patient was additionally given 2 Albuterol treatments, 1 additional Duoneb treatment, and 125 of Solu-Medrol en-route to the emergency department. Source of History: patient, EMS Onset: prior to arrival Position: other (global) Quality: other (shortness of breath) Timing: other (persistent) Review of Systems See HPI for pertinent positives and negatives. A total of ten systems were reviewed and were otherwise negative. Past Medical & Surgical Medical Problems: (1) Anemia (2) Asthma (3) Asthma, Unspecified (4) Bradycardia (5) Carpal tunnel syndrome (6) Complicated urinary tract infection (7) Constipation (8) COPD (chronic obstructive pulmonary disease) (9) Depression (10) Diabetes mellitus (11) Electrolyte imbalance (12) Esophageal Reflux (13) Hematuria (14) Hiatal hernia (15) History of cervical cancer (16) Hyperlipidemia (17) Hypertension (18) Hypertension (19) Intervertebral disc disorder (20) Obstructive Chronic Bronchitis With Acute Bronchitis (21) Osteoarthritis (22) Reflux esophagitis (23) Respiratory failure (24) Restless leg syndrome (25) Restless Legs Syndrome (26) Rheumatoid Arthritis (27) Tobacco Use Disorder Surgical Problems: (1) H/O colonoscopy (2) History of esophagogastroduodenoscopy (EGD) Family History Diabetes mellitus FH: heart disease FH: lung disease FHx: cancer Hypertension Social History Smoking Status: Former Smoker Alcohol Use: none Drug Use: none Marital Status: single Housing Status: lives alone Occupation Status: disabled Current/Historical Medications Scheduled Amitriptyline HCl (Amitriptyline HCl), 10 MG PO HS Atorvastatin (Lipitor), 10 MG PO QAM Cyanocobalamin (Vitamin B12), 1,000 MCG PO DAILY Ferrous Sulfate (Kp Ferrous Sulfate), 1 TAB PO BID Gabapentin (Neurontin), 100 MG PO TID Home O2 Therapy (Oxygen), 2 LITERS NA HS Ipratropium-Albuterol (Combivent Respimat), 1 PUFFS INH QID Losartan Potassium (Cozaar), 25 MG PO QAM Metformin Hcl (Glucophage), 1,000 MG PO BID Montelukast Sodium (Singulair), 10 MG PO QAM Pantoprazole Sodium (Protonix), 40 MG PO QAM Pramipexole Dihydrochloride (Mirapex), 0.5 MG PO BID Prednisone Tab (Prednisone), 10 MG PO UD Ranitidine Hcl (Zantac), 300 MG PO HS Tiotropium [place] (Spiriva Handihaler), 1 CAP INH DAILY Scheduled PRN Albuterol Hfa (Ventolin Hfa), 2 PUFFS INH Q4 PRN for Shortness of Breath Benzonatate (Tessalon Perles), 1-2 CAP PO TID PRN for Cough Cyclobenzaprine Hcl (Flexeril), 10 MG PO BID PRN for Muscle Spasms Furosemide (Lasix), 20 MG PO QAM PRN for fluid and wt gain Glimepiride (Amaryl), 0.5 TAB PO QAM PRN for while on prednisone Hydrocodone/Acetaminophen 5MG/325MG ([place] 5MG/325MG), 1 TABLET PO Q8WK PRN for mod pain Ipratropium-Albuterol (Duoneb), 1 TREATMENT INH Q4H PRN for SOB/Wheezing Potassium Chloride (Potassium Chloride Er), 1 TAB PO DAILY PRN for with lasix Pramipexole Dihydrochloride (Mirapex Er), 1-2 TABS PO HS PRN for RLS Allergies Coded Allergies: No Known Allergies (Verified , 09/22/16) Physical Exam Vital Signs Date Time Temp Pulse Resp B/P (MAP) Pulse Ox O2 Delivery O2 Flow Rate FiO2 09/22/16 03:24 123 24 100 09/22/16 03:09 126 21 100 09/22/16 03:01 145/94 09/22/16 02:57 151/99 09/22/16 02:54 125 100 09/22/16 02:39 129 17 100 09/22/16 02:32 192/109 09/22/16 02:24 128 20 100 09/22/16 02:09 136 100 09/22/16 02:07 158/118 09/22/16 01:49 129 100 100 09/22/16 01:48 125 29 100 BiPAP/CPAP 100 09/22/16 01:44 125 09/22/16 01:39 124 100 09/22/16 01:33 126 34 178/130 87 Nasal Cannula 6.0 09/22/16 01:33 87 Nasal Cannula 6.0 09/22/16 01:31 178/130 Physical Exam GENERAL: Awake, alert, in moderate distress. HENT: Normocephalic, atraumatic. Oropharynx unremarkable. EYES: Normal conjunctiva. Sclera non-icteric. NECK: Supple. No nuchal rigidity. FROM. No JVD. RESPIRATORY: Decreased breath sounds bilaterally. CARDIAC: Tachycardic rate, normal rhythm. Extremities warm and well perfused. Pulses equal. ABDOMEN: Soft, non-distended. No tenderness to palpation. No rebound or guarding. No masses. RECTAL: Deferred. MUSCULOSKELETAL: Chest examination reveals no tenderness. The back is symmetrical on inspection without obvious abnormality. There is no CVA tenderness to palpation. No joint edema. LOWER EXTREMITIES: Calves are equal size bilaterally and non-tender. No edema. No discoloration. NEURO: Normal sensorium. No sensory or motor deficits noted. SKIN: Diaphoretic. No rash or jaundice noted. Medical Decision & Procedures ER Provider Diagnostic Interpretation: 1 view Chest x-ray interpretation pending radiology review: COPD, no infiltrate , no pneumothorax. Laboratory Results 09/22/16 01:45 Red Blood Count 3.89, Mean Corpuscular Volume 88.2, Mean Corpuscular Hemoglobin 26.5, Mean Corpuscular Hemoglobin Concent 30.0, Mean Platelet Volume 8.6 09/22/16 01:45 Test 09/22/16 01:45 09/22/16 01:52 09/22/16 02:25 White Blood Count 11.22 K/uL (4.8-10.8) Red Blood Count 3.89 M/uL (4.2-5.4) Hemoglobin 10.3 g/dL (12.0-16.0) Hematocrit 34.3 % (37-47) Mean Corpuscular Volume 88.2 fL (80-100) Mean Corpuscular Hemoglobin 26.5 pg (25-34) Mean Corpuscular Hemoglobin Concent 30.0 g/dl (32-36) Platelet Count 389 K/uL (130-400) Mean Platelet Volume 8.6 fL (7.4-10.4) RDW Standard Deviation 51.3 fL (36.4-46.3) RDW Coefficient of Variation 16.1 % (11.5-14.5) Neutrophils % (Manual) 48.7 % Band Neutrophils % (Manual) 0.0 % Lymphocytes % (Manual) 26.5 % Variant Lymphocytes % (manual) 0.0 % Monocytes % (Manual) 6.2 % Eosinophils % (Manual) 0.9 % Basophils % (Manual) 0.9 % Neutrophils # (Manual) 5.46 K/uL (1.4-6.5) Total Absolute Neutrophils 5.46 K/uL (1.4-6.5) Lymphocytes # (Manual) 2.97 K/uL (1.2-3.4) Total Absolute Lymphocytes 4.86 K/uL (1.2-3.4) Monocytes # (Manual) 0.70 K/uL (0.11-0.59) Eosinophils # (Manual) 0.10 K/uL (0-0.5) Basophils # (Manual) 0.10 K/uL (0-0.2) Percent Large Granular Lymphocytes 16.8 % Absolute Large Granular Lymphocytes 1.88 K/uL Red Blood Cell Morphology Unremarkable Anion Gap 4.0 mmol/L (3-11) Est Creatinine Clear Calc Drug Dose 70.6 ml/min Estimated GFR () 69.9 Estimated GFR (Non- 60.3 BUN/Creatinine Ratio 18.3 (10-20) Calcium Level 9.2 mg/dl (8.5-10.1) Total Bilirubin < 0.1 mg/dl (0.2-1) Aspartate Amino Transf (AST/SGOT) 14 U/L (15-37) Alanine Aminotransferase (ALT/SGPT) 30 U/L (12-78) Alkaline Phosphatase 96 U/L (45-117) Total Protein 7.3 gm/dl (6.4-8.2) Albumin 3.4 gm/dl (3.4-5.0) Globulin 3.9 gm/dl (2.5-4.0) Albumin/Globulin Ratio 0.9 (0.9-2) Bedside Troponin I < 0.030 ng/ml (0-0.045) BE-Coq-B-Type Natriuretic Peptide < 15 pg/ml (0-900) Arterial Blood pH 7.33 (7.35-7.45) Arterial Blood Partial Pressure CO2 62 mmHg (35-46) Arterial Blood Partial Pressure O2 329 mm/Hg (80-95) Arterial Blood HCO3 32 mmol/L (19-24) Arterial Blood Oxygen Saturation 99.4 % (90-95) Arterial Blood Base Excess 4.7 mEq/L (-9-1.8) Arterial Blood Gas Delivery 60% Ziyad Test POS (POS) Laboratory results reviewed by me Medications Administered Medications (Trade) Dose Ordered Sig/Allison Route Start Time Stop Time Status Last Admin Dose Admin Albuterol/ Ipratropium (Duoneb) 12 ml ONE ONCE INH 09/22/16 01:45 09/22/16 01:46 DC 09/22/16 01:47 12 ML ECG Indication: SOB/dyspnea Rate (beats per minute): 126 Rhythm: sinus tachycardia Findings: no acute ischemic change, other (normal intervals, normal axis) ED Course 0127: The patient was evaluated in room B6. A complete history and physical exam was performed. 0131: The patient was placed on BIPAP at this time. 0145: Ordered Duoneb 12 ml INH. 0213: I reevaluated the patient and she is resting. I discussed the exam findings with her and I discussed the treatment plan. She verbalized complete understanding and agreement. She is going to be evaluated for further treatment. 0226: Ordered Ativan Inj 2 mg .route. 0301: I discussed the patients case with Michaela Reza. He will evaluate the patient for further treatment. Patient was in respiratory distress on arrival started on BiPAP patient recently was admitted for COPD exacerbation or asthma exacerbation had been intubated. Patient improved greatly on BiPAP and Ativan as well as hour-long DuoNeb treatment and is receiving Solu-Medrol by EMS prior to arrival. Case was discussed with the hospitalist for admission Medical Decision Differential diagnosis: Etiologies such as infections, reactive airway disease, pneumonia, pneumothorax , COPD, CHF, cardiac ischemia, pulmonary embolism, musculoskeletal, gastrointestinal, as well as others were entertained. Medication Reconcilliation Current Medication List: was personally reviewed by me Blood Pressure Screening Patient's blood pressure: Elevated blood pressure Blood pressure disposition: Elevated BP felt to be situational, Referred to PCP Consults Time Called: [phone] Consulting Physician: Michaela Reza Returned Call: 030 I discussed the patients case with Michaela Reza. He will evaluate the patient for further treatment. Impression Primary Impression: Acute respiratory distress Additional Impression: Acute exacerbation of COPD with asthma Critical Care I have personally spent greater than 35 minutes of critical care time in the direct management of this patient. This includes bedside care, interpretation of diagnostic studies, and testing, discussion with consultants, patient, and family members, and other required patient management activities. This 35 minutes is in excess of all separately billable procedures. Scribe Attestation The scribe's documentation has been prepared under my direction and personally reviewed by me in its entirety. I confirm that the note above accurately reflects all work, treatment, procedures, and medical decision making performed by me. Departure Information Dispostion Being Evaluated By Hospitalist Referrals Martina Jay M.D. (PCP) Problem Qualifiers
[2016-09-22] MEDS ORDERED: ALBUT/IPRATROP 3MG/0.5MG NEB 3 ML VIAL INH ONE (01:45)
--- NOTE | 2016-09-22 01:55 | EMERGENCY ROOM VISIT NOTE ---
ED Visit Note First contact with patient: 01:27 See full chart - no further info Problem List Medical Problems: (1) Asthma Status: Chronic (2) Carpal tunnel syndrome Status: Chronic (3) COPD (chronic obstructive pulmonary disease) Status: Chronic (4) Depression Status: Chronic (5) Diabetes mellitus Status: Chronic (6) Hiatal hernia Status: Chronic (7) History of cervical cancer Permanent Comment: s/p laser Status: Chronic (8) Hyperlipidemia Status: Chronic (9) Hypertension Status: Chronic (10) Intervertebral disc disorder Permanent Comment: C5-C6 Status: Chronic (11) Osteoarthritis Status: Chronic (12) Reflux esophagitis Status: Chronic (13) Restless leg syndrome Status: Chronic Surgical Problems: (1) H/O colonoscopy Status: Chronic (2) History of esophagogastroduodenoscopy (EGD) Status: Chronic Current/Historical Medications Scheduled Amitriptyline HCl (Amitriptyline HCl), 10 MG PO HS Atorvastatin (Lipitor), 10 MG PO QAM Cyanocobalamin (Vitamin B12), 1,000 MCG PO DAILY Ferrous Sulfate (Kp Ferrous Sulfate), 1 TAB PO BID Gabapentin (Neurontin), 100 MG PO TID Home O2 Therapy (Oxygen), 2 LITERS NA HS Ipratropium-Albuterol (Combivent Respimat), 1 PUFFS INH QID Losartan Potassium (Cozaar), 25 MG PO QAM Metformin Hcl (Glucophage), 1,000 MG PO BID Montelukast Sodium (Singulair), 10 MG PO QAM Pantoprazole Sodium (Protonix), 40 MG PO QAM Pramipexole Dihydrochloride (Mirapex), 0.5 MG PO BID Prednisone Tab (Prednisone), 10 MG PO UD Ranitidine Hcl (Zantac), 300 MG PO HS Tiotropium [place] (Spiriva Handihaler), 1 CAP INH DAILY Scheduled PRN Albuterol Hfa (Ventolin Hfa), 2 PUFFS INH Q4 PRN for Shortness of Breath Benzonatate (Tessalon Perles), 1-2 CAP PO TID PRN for Cough Cyclobenzaprine Hcl (Flexeril), 10 MG PO BID PRN for Muscle Spasms Furosemide (Lasix), 20 MG PO QAM PRN for fluid and wt gain Glimepiride (Amaryl), 0.5 TAB PO QAM PRN for while on prednisone Hydrocodone/Acetaminophen 5MG/325MG ([place] 5MG/325MG), 1 TABLET PO Q8WK PRN for mod pain Ipratropium-Albuterol (Duoneb), 1 TREATMENT INH Q4H PRN for SOB/Wheezing Potassium Chloride (Potassium Chloride Er), 1 TAB PO DAILY PRN for with lasix Pramipexole Dihydrochloride (Mirapex Er), 1-2 TABS PO HS PRN for RLS Allergies Coded Allergies: No Known Allergies (Verified , 09/22/16) Vital Signs Date Time Temp Pulse Resp B/P (MAP) Pulse Ox O2 Delivery O2 Flow Rate FiO2 09/22/16 03:24 123 24 100 09/22/16 03:09 126 21 100 09/22/16 03:01 145/94 09/22/16 02:57 151/99 09/22/16 02:54 125 100 09/22/16 02:39 129 17 100 09/22/16 02:32 192/109 09/22/16 02:24 128 20 100 09/22/16 02:09 136 100 09/22/16 02:07 158/118 09/22/16 01:49 129 100 100 09/22/16 01:48 125 29 100 BiPAP/CPAP 100 09/22/16 01:44 125 09/22/16 01:39 124 100 09/22/16 01:33 126 34 178/130 87 Nasal Cannula 6.0 09/22/16 01:33 87 Nasal Cannula 6.0 09/22/16 01:31 178/130 Laboratory Results 09/22/16 01:45 Red Blood Count 3.89, Mean Corpuscular Volume 88.2, Mean Corpuscular Hemoglobin 26.5, Mean Corpuscular Hemoglobin Concent 30.0, Mean Platelet Volume 8.6 09/22/16 01:45 Test 09/22/16 01:45 09/22/16 01:52 09/22/16 02:25 White Blood Count 11.22 K/uL (4.8-10.8) Red Blood Count 3.89 M/uL (4.2-5.4) Hemoglobin 10.3 g/dL (12.0-16.0) Hematocrit 34.3 % (37-47) Mean Corpuscular Volume 88.2 fL (80-100) Mean Corpuscular Hemoglobin 26.5 pg (25-34) Mean Corpuscular Hemoglobin Concent 30.0 g/dl (32-36) Platelet Count 389 K/uL (130-400) Mean Platelet Volume 8.6 fL (7.4-10.4) RDW Standard Deviation 51.3 fL (36.4-46.3) RDW Coefficient of Variation 16.1 % (11.5-14.5) Neutrophils % (Manual) 48.7 % Band Neutrophils % (Manual) 0.0 % Lymphocytes % (Manual) 26.5 % Variant Lymphocytes % (manual) 0.0 % Monocytes % (Manual) 6.2 % Eosinophils % (Manual) 0.9 % Basophils % (Manual) 0.9 % Neutrophils # (Manual) 5.46 K/uL (1.4-6.5) Total Absolute Neutrophils 5.46 K/uL (1.4-6.5) Lymphocytes # (Manual) 2.97 K/uL (1.2-3.4) Total Absolute Lymphocytes 4.86 K/uL (1.2-3.4) Monocytes # (Manual) 0.70 K/uL (0.11-0.59) Eosinophils # (Manual) 0.10 K/uL (0-0.5) Basophils # (Manual) 0.10 K/uL (0-0.2) Percent Large Granular Lymphocytes 16.8 % Absolute Large Granular Lymphocytes 1.88 K/uL Red Blood Cell Morphology Unremarkable Anion Gap 4.0 mmol/L (3-11) Est Creatinine Clear Calc Drug Dose 70.6 ml/min Estimated GFR () 69.9 Estimated GFR (Non- 60.3 BUN/Creatinine Ratio 18.3 (10-20) Calcium Level 9.2 mg/dl (8.5-10.1) Total Bilirubin < 0.1 mg/dl (0.2-1) Aspartate Amino Transf (AST/SGOT) 14 U/L (15-37) Alanine Aminotransferase (ALT/SGPT) 30 U/L (12-78) Alkaline Phosphatase 96 U/L (45-117) Total Protein 7.3 gm/dl (6.4-8.2) Albumin 3.4 gm/dl (3.4-5.0) Globulin 3.9 gm/dl (2.5-4.0) Albumin/Globulin Ratio 0.9 (0.9-2) Bedside Troponin I < 0.030 ng/ml (0-0.045) [id number]-[id number]-Type Natriuretic Peptide < 15 pg/ml (0-900) Arterial Blood pH 7.33 (7.35-7.45) Arterial Blood Partial Pressure CO2 62 mmHg (35-46) Arterial Blood Partial Pressure O2 329 mm/Hg (80-95) Arterial Blood HCO3 32 mmol/L (19-24) Arterial Blood Oxygen Saturation 99.4 % (90-95) Arterial Blood Base Excess 4.7 mEq/L (-9-1.8) Arterial Blood Gas Delivery 60% Ziyad Test POS (POS) Medications Administered Medications (Trade) Dose Ordered Sig/Allison Route Start Time Stop Time Status Last Admin Dose Admin Albuterol/ Ipratropium (Duoneb) 12 ml ONE ONCE INH 09/22/16 01:45 09/22/16 01:46 DC 09/22/16 01:47 12 ML Departure Information Referrals Martina Jay M.D. (PCP) Patient Instructions My [facility]
[2016-09-22 01:57] LABS: HEMATOCRIT 34.3 % (37-47); MEAN CELL VOLUME 88.2 fL (80-100); MEAN CORPUSCULAR HEMOGLOBIN 26.5 pg (25-34); MEAN PLATELET VOLUME 8.6 fL (7.4-10.4); PLATELET COUNT 389 K/uL (130-400); RED BLOOD COUNT 3.89 M/uL (4.2-5.4); WHITE BLOOD COUNT 11.22 K/uL (4.8-10.8)
[2016-09-22] MEDS ORDERED: VNTHFA/IN INH (01:58)
[2016-09-22] MEDS ORDERED: FERR1TAB13 PO (02:02)
[2016-09-22 02:12] LABS: POINT OF CARE PRO-BNP < 15 pg/ml (0-900); POINT OF CARE TROPONIN I < 0.030 ng/ml (0-0.045)
[2016-09-22] MEDS ORDERED: LORAZEPAM 2 MG/ML 1 ML VIAL ONE (02:26)
[2016-09-22] MEDS ORDERED: LORAZEPAM INJ 1 MG in SYRINGE 0.5 ML IV ONE (03:10)
[2016-09-22 03:11] LABS: ALB/GLOB RATIO 0.9 (0.9-2); ALKALINE PHOSPHATASE 96 U/L (45-117); ALT/SGPT 30 U/L (12-78); AST/SGOT 14 U/L (15-37); BLOOD UREA NITROGEN 18 mg/dl (7-18); BUN/CREATININE RATIO 18.3 (10-20); CALCIUM 9.2 mg/dl (8.5-10.1); CARBON DIOXIDE 33 mmol/L (21-32); CHLORIDE 107 mmol/L (98-107); GLUCOSE 130 mg/dl (70-99); POTASSIUM 3.7 mmol/L (3.5-5.1); SODIUM 144 mmol/L (136-145)
[2016-09-22 03:13] LABS: BASOPHIL % 0.9 %; COMPLETE YES; EOSINOPHIL % 0.9 %; LARGE GRANULAR LYMPH ABSOLUTE 1.88 K/uL; LARGE GRANULAR LYMPHOCYTE % 16.8 %; LYMPH ABS # 2.97 K/uL (1.2-3.4); LYMPHOCYTE % 26.5 %; NEUTROPHILS % 48.7 %
[2016-09-22 03:24] LABS: ARTERIAL BLD GAS O2 SATURATION 99.4 % (90-95); ARTERIAL BLOOD GAS BASE EXCESS 4.7 mEq/L (-9-1.8); ARTERIAL BLOOD GAS HCO3 32 mmol/L (19-24); ARTERIAL BLOOD GAS PO2 329 mm/Hg (80-95); ARTERIAL BLOOD GAS pH 7.33 (7.35-7.45)
[2016-09-22 03:25] LABS: ALLEN TEST POS (POS); O2 ADMINISTRATION 60%
--- NOTE | 2016-09-22 03:56 | History and Physical ---
History & Physical Date & Time of Service: Sep 22, 2016 at 03:56 Chief Complaint: Short Of Breath Primary Care Physician: Martina Jay M.D. History of Present Illness Source: patient, clinic records 61 YO female followed [place] Dr[address] Martina Jay for Internal Medicine [place] [facility] [place]. History of obstructive lung disease, hypertension, DM type 2, and other problems noted below. On intermittent steroid therapy for exacerbations of asthma / COPD. On home O2 HS for nocturnal hypoxia. Admitted to [facility] in January 2016 for respiratory failure and required intubation. Had prolonged ICU stay. Readmitted 09/08/16 - 09/10/16 with exacerbation due to bibasilar pneumonia. Did well after discharged. Completed course of antibiotic therapy and steroids. Burke well yesterday throughout the day. No fever, cough, wheezing. Awoke from sleep around midnight with acute onset of wheezing and SOB. No fever. No significant cough. Tried Duonebs without much improvement. EMS summoned and pt was transported to ED. BiPAP applied in ED for ongoing respiratory distress. Received additional nebs in ED. Feeling better by time of my assessment. . Past Medical/Surgical History Chornic and Resolved Medical Problems: (1) Anemia Status: Chronic (2) Asthma Status: Chronic (3) Carpal tunnel syndrome Status: Chronic (4) COPD (chronic obstructive pulmonary disease) Status: Chronic (5) Depression Status: Chronic (6) Diabetes mellitus, type 2 Status: Chronic (7) GERD (gastroesophageal reflux disease) Status: Chronic (8) Hiatal hernia Status: Chronic (9) History of cervical cancer Permanent Comment: s/p laser Status: Chronic (10) Hyperlipidemia Status: Chronic (11) Hypertension Status: Chronic (12) Hypertension Status: Chronic (13) Intervertebral disc disorder Permanent Comment: C5-C6 Status: Chronic (14) Nocturnal hypoxia Permanent Comment: home O2 2 LPM HS Status: Chronic (15) Osteoarthritis Status: Chronic (16) Reflux esophagitis Status: Chronic (17) Restless leg syndrome Status: Chronic Surgical Problems: (1) H/O colonoscopy Status: Chronic (2) History of esophagogastroduodenoscopy (EGD) Status: Chronic . Family History Diabetes mellitus FH: heart disease FH: lung disease FHx: cancer Hypertension Social History Smoking Status: Former Smoker Alcohol Use: none Drug Use: none Marital Status: single Housing status: lives with family Occupational Status: disabled Immunizations History of Influenza Vaccine: Yes History of Tetanus Vaccine?: No History of Pneumococcal: Yes History of Hepatitis B Vaccine: No Multi-Drug Resistant Organisms History of MDRO: No Allergies Coded Allergies: No Known Allergies (Verified , 09/22/16) Home Medications Scheduled Amitriptyline HCl (Amitriptyline HCl), 10 MG PO HS Aspirin (Aspirin Chewable), 81 MG PO DAILY Atorvastatin (Lipitor), 10 MG PO QAM Cyanocobalamin (Vitamin B12), 1,000 MCG PO DAILY Ferrous Sulfate (Kp Ferrous Sulfate), 1 TAB PO BID Fluticasone Propionate (Fluticasone Propionate), 2 SPRAY NA BID Gabapentin (Neurontin), 100 MG PO TID Home O2 Therapy (Oxygen), 2 LITERS NA HS Losartan Potassium (Cozaar), 25 MG PO QAM Metformin Hcl (Glucophage), 1,000 MG PO BID Montelukast Sodium (Singulair), 10 MG PO QAM Pantoprazole Sodium (Protonix), 40 MG PO QAM Pramipexole Dihydrochloride (Mirapex), 0.5 MG PO BID Ranitidine Hcl (Zantac), 300 MG PO HS Tiotropium [place] (Spiriva Handihaler), 1 CAP INH DAILY Scheduled PRN Acetaminophen Tab (Tylenol), 650 MG PO Q6 PRN for Pain Albuterol Hfa (Ventolin Hfa), 2 PUFFS INH Q4 PRN for Shortness of Breath Benzonatate (Tessalon Perles), 1-2 CAP PO TID PRN for Cough Cyclobenzaprine Hcl (Flexeril), 10 MG PO BID PRN for Muscle Spasms Furosemide (Lasix), 20 MG PO QAM PRN for fluid and wt gain Glimepiride (Amaryl), 0.5 TAB PO QAM PRN for while on prednisone Hydrocodone/Acetaminophen 5MG/325MG ([place] 5MG/325MG), 1 TABLET PO Q8 PRN for mod pain Ipratropium-Albuterol (Duoneb), 1 TREATMENT INH Q4H PRN for SOB/Wheezing Ipratropium-Albuterol (Combivent Respimat), 1 PUFFS INH Q8 PRN for Wheezing Potassium Chloride (Potassium Chloride Er), 1 TAB PO DAILY PRN for with lasix Pramipexole Dihydrochloride (Mirapex Er), 1-2 TABS PO HS PRN for RLS Zolpidem Tartrate (Zolpidem Tartrate), 5 MG PO HS PRN for Insomnia Review of Systems Constitutional: No fever, No weight loss Eyes: No worsening of vision, No diplopia ENT: + nasal symptoms, + problem reported (hoarseness since intubation several months ago), No sore throat Respiratory: + problem reported (as noted above in HPI) Cardiovascular: No chest pain, No edema Abdomen: No pain, No nausea, No vomiting, No diarrhea, No GI bleeding Musculoskeletal: + joint pain Genitourinary - Female: No dysuria, No hematuria Neurologic: + problem reported (no headache, no diabetic neuropathy) Endocrine: No excessive thirst, No excessive urination Hematologic / Lymphatic: No abnormal bleeding/bruising, No swollen lymph nodes Physical Exam Vital Signs Date Time Temp Pulse Resp B/P (MAP) Pulse Ox O2 Delivery O2 Flow Rate FiO2 09/22/16 03:24 123 24 100 09/22/16 03:09 126 21 100 09/22/16 03:01 145/94 09/22/16 02:57 151/99 09/22/16 02:54 125 100 09/22/16 02:39 129 17 100 09/22/16 02:32 192/109 09/22/16 02:24 128 20 100 09/22/16 02:09 136 100 09/22/16 02:07 158/118 09/22/16 01:49 129 100 100 09/22/16 01:48 125 29 100 BiPAP/CPAP 100 09/22/16 01:44 125 09/22/16 01:39 124 100 09/22/16 01:33 126 34 178/130 87 Nasal Cannula 6.0 09/22/16 01:33 87 Nasal Cannula 6.0 09/22/16 01:31 178/130 General Appearance: WD/WN, + mild distress Head: normocephalic, atraumatic Eyes: normal inspection, PERRL, EOMI, sclerae normal ENT: + pertinent finding (wearing BiPAP; no oral thrush) Neck: supple, no adenopathy, thyroid normal, trachea midline Respiratory/Chest: + accessory muscle use, + pertinent finding (diffuse moderate wheezing) Cardiovascular: regular rate, rhythm, no edema, no JVD, no murmur, normal peripheral pulses Abdomen/GI: normal bowel sounds, non tender, soft, no organomegaly Extremities/Musculoskelatal: no calf tenderness, no pedal edema Neurologic/Psych: personal counselor II-XII nml as tested (PERRL, EOMI), no motor/sensory deficits (motor grossly intact), normal mood/affect, oriented x 3 Skin: normal color, warm/dry Lymphatic: no adenopathy (cervical) Diagnostics Laboratory Results Results Past 24 Hours Test 09/22/16 01:45 09/22/16 01:52 09/22/16 02:25 Range/Units White Blood Count 11.22 4.8-10.8 K/uL Red Blood Count 3.89 4.2-5.4 M/uL Hemoglobin 10.3 12.0-16.0 g/dL Hematocrit 34.3 37-47 % Mean Corpuscular Volume 88.2 80-100 fL Mean Corpuscular Hemoglobin 26.5 25-34 pg Mean Corpuscular Hemoglobin Concent 30.0 32-36 g/dl Platelet Count 389 130-400 K/uL Mean Platelet Volume 8.6 7.4-10.4 fL RDW Standard Deviation 51.3 36.4-46.3 fL RDW Coefficient of Variation 16.1 11.5-14.5 % Neutrophils % (Manual) 48.7 % Band Neutrophils % (Manual) 0.0 % Lymphocytes % (Manual) 26.5 % Variant Lymphocytes % (manual) 0.0 % Monocytes % (Manual) 6.2 % Eosinophils % (Manual) 0.9 % Basophils % (Manual) 0.9 % Neutrophils # (Manual) 5.46 1.4-6.5 K/uL Total Absolute Neutrophils 5.46 1.4-6.5 K/uL Lymphocytes # (Manual) 2.97 1.2-3.4 K/uL Total Absolute Lymphocytes 4.86 1.2-3.4 K/uL Monocytes # (Manual) 0.70 0.11-0.59 K/uL Eosinophils # (Manual) 0.10 0-0.5 K/uL Basophils # (Manual) 0.10 0-0.2 K/uL Percent Large Granular Lymphocytes 16.8 % Absolute Large Granular Lymphocytes 1.88 K/uL Red Blood Cell Morphology Unremarkable Sodium Level 144 136-145 mmol/L Potassium Level 3.7 3.5-5.1 mmol/L Chloride Level 107 98-107 mmol/L Carbon Dioxide Level 33 21-32 mmol/L Anion Gap 4.0 3-11 mmol/L Blood Urea Nitrogen 18 7-18 mg/dl Creatinine 1.00 0.60-1.20 mg/dl Est Creatinine Clear Calc Drug Dose 70.6 ml/min Estimated GFR () 69.9 Estimated GFR (Non- 60.3 BUN/Creatinine Ratio 18.3 10-20 Random Glucose 130 70-99 mg/dl Calcium Level 9.2 8.5-10.1 mg/dl Total Bilirubin < 0.1 0.2-1 mg/dl Aspartate Amino Transf (AST/SGOT) 14 15-37 U/L Alanine Aminotransferase (ALT/SGPT) 30 12-78 U/L Alkaline Phosphatase 96 45-117 U/L Total Protein 7.3 6.4-8.2 gm/dl Albumin 3.4 3.4-5.0 gm/dl Globulin 3.9 2.5-4.0 gm/dl Albumin/Globulin Ratio 0.9 0.9-2 Bedside Troponin I < 0.030 0-0.045 ng/ml ZE-Edt-F-Type Natriuretic Peptide < 15 0-900 pg/ml Arterial Blood pH 7.33 7.35-7.45 Arterial Blood Partial Pressure CO2 62 35-46 mmHg Arterial Blood Partial Pressure O2 329 80-95 mm/Hg Arterial Blood HCO3 32 19-24 mmol/L Arterial Blood Oxygen Saturation 99.4 90-95 % Arterial Blood Base Excess 4.7 -9-1.8 mEq/L Arterial Blood Gas Delivery 60% Ziyad Test POS POS Microbiology Results 09/22/16 Blood Culture, Received Pending 09/22/16 Blood Culture, Received Pending Diagnostic Radiology Portable CXR interpreted by the undersigned pending formal interpretation by Radiology: some haziness at lung bases, possible due to overlying soft tissue no definite infiltrates, effusion, CHF noted . EKG EKG performed at 01:[address] at 123 / minute, no acute ST or T-wave changes. . Impression Assessment and Plan ACUTE HYPOXIC + HYPERCAPNIC RESPIRATORY FAILURE Presented with acute onset of SOB. Hypoxic on 6 L NC. ABG demonstrated CO2 retention. Tachypneic with RR of 34. Acute respiratory failure, probably due to exacerbation of COPD as discussed below. Pro-BNP normal. Doubt CHF. Pulmonary embolism possible, but favor COPD exacerbation. Continue BiPAP for ventilatory support; titrate supplemental O2. Consult Pulmonary Medicine. EXACERBATION OF COPD Sudden onset of symptoms. No fever. Minimal leukocytosis. No convincing infiltrates on CXR (preliminary reading). Consider aspiration due to GERD and/or laryngeal dysfunction. IV methylprednisolone with conversion to oral steroids as soon as possible. Levalbuterol / ipratropium nebs. Need to clarify outpatient regimen- review with Pulmonary Medicine. HOARSENESS Hoarse since intubation several months ago. Has outpatient appt with ENT. HYPERTENSION Continue losartan. Follow and titrate Rx. GERD Continue PPI. Elevate head of bed. DM TYPE 2 Usually well-controlled, but sensitive to steroids. Check Hgb A1C. Hold oral agents during hospital stay. Lantus / NovoLog per protocol. VTE PROPHYLAXIS Moderate risk for VTE. SQ enoxaparin. Ambulate when able. RESUSCITATION STATUS Full code. DISPOSITION Admit to Telemetry Unit. Expected discharge to home. Internal Medicine follow-up with Dr. Martina Jay. Pulmonary Medicine follow-up with [facility]. . VTE Prophylaxis Given or contraindicated: Enoxaparin (Lovenox)SQ
[2016-09-22] MEDS ORDERED: ONDANSETRON INJ 2 MG/ML 2 ML VIAL IV PRN (04:00)
[2016-09-22] MEDS ORDERED: ACETAMINOPHEN 325 MG TAB PO PRN ×2 (04:00→05:00)
[2016-09-22 04:15] LABS: INR 0.9 (0.9-1.1); PARTIAL THROMBOPLASTIN RATIO 0.9; PROTHROMBIN TIME (PATIENT) 9.4 SECONDS (9.0-12.0)
[2016-09-22] MEDS ORDERED: CYCLOBENZAPRINE HCL 10 MG TAB PO PRN (05:00)
[2016-09-22] MEDS ORDERED: HYDROCODONE/ACETAMOPHEN 5/325MG TAB PO PRN (05:00)
[2016-09-22] MEDS ORDERED: LEVALBUTEROL 0.63MG/3 ML NEB INH PRN (05:00)
[2016-09-22] MEDS: METHYLPREDNISOLONE IV 20 MG in SYRINGE 0 ML IV SCH ×3 (06:15→20:57)
--- NOTE | 2016-09-22 06:26 | DIAGNOSTIC IMAGING REPORT ---
CHEST ONE VIEW PORTABLE CLINICAL HISTORY: sob dyspnea COMPARISON STUDY: 09/08/2016 FINDINGS: Mild interval increase in cardiac size. Moderate increase in pulmonary vasculature. Mild bibasilar atelectasis. Trace pleural fluid right lateral gastric angle. IMPRESSION: Developing congestive failure The above report was generated using voice recognition software. It may contain grammatical, syntax or spelling errors. Electronically signed by: Fuentes Lewis M.D. 09/22/2016 6:24 AM Dictated Date/Time: 09/22/2016 6:24 AM
[2016-09-22] MEDS: IPRATROPIUM BROMIDE NEB SOLN 0.02% 2.5 ML VIAL INH SCH ×4 (07:25→19:45)
[2016-09-22] MEDS: LEVALBUTEROL 1.25MG/0.5ML NEB INH SCH ×4 (07:25→19:45)
[2016-09-22] MEDS: PRAMIPEXOLE DIHYDROCHLORIDE 0.5 MG TAB PO SCH ×2 (07:55→21:00)
[2016-09-22] MEDS: FLUTICASONE PROPIONATE NA SPR 16 GM BTL NAE SCH ×2 (07:55→20:58)
[2016-09-22] MEDS: ATORVASTATIN 10 MG TAB PO SCH (07:55)
[2016-09-22] MEDS: ENOXAPARIN 40 MG/0.4 ML SYR SC SCH (07:55)
[2016-09-22] MEDS: LOSARTAN POTASSIUM 25 MG TAB PO SCH (07:56)
[2016-09-22] MEDS: GABAPENTIN 100 MG CAP PO SCH ×3 (07:56→20:58)
[2016-09-22] MEDS: ASPIRIN 81 MG ECTAB PO SCH (07:56)
[2016-09-22] MEDS: PANTOprazole SOD 40 MG TAB PO SCH (07:56)
[2016-09-22] MEDS: INSULIN ASPART 100 UNITS/ML 3 ML PEN SC SCH ×4 (08:24→21:06)
[2016-09-22] MEDS: INSULIN GLARGINE SOLOSTAR 100 UNITS/ML 3 ML PEN SC SCH ×2 (08:25→21:05)
--- NOTE | 2016-09-22 10:29 | Pulmonary Consultation ---
History General Date of Service: Sep 22, 2016. Stated Complaint: Acute Exacerbation Of Copd With Asthma HPI The patient is a 61 year old female who presents to [facility] with complaints of Acute Exacerbation Of Copd With Asthma. The patient's primary care provider is Martina Jay M.D.. 61-year-old female with a past medical history of persistent severe sleep apnea requiring hospitalization and previous intubation within the last year. Patient was in her usual state of health but had a physically active day yesterday with her twin sister and woke up last evening with acute onset shortness of breath. She denied: Fever, chills, classic cardiac chest pain, productive cough, hemoptysis or history of aspiration. Along with her acute onset of severe shortness of breath she did note some mild GERD type symptoms and progressive lower extremity edema over the last 1-2 weeks. Patient had a recent admission to [facility] in the last 2 weeks for similar episode. Medications: #1 Lovenox 40 mg subcutaneous daily #2 aspirin 81 mg #3 Flonase nasal spray 2 puffs twice a day #4 losartan 25 mg every morning #5 Protonix 40 mg every morning #6 Xopenex/ipratropium nebulizer every 6 hours #7 Solu-Medrol 20 mg IV every 8 hours #8 Xopenex 0.63 every 2 hours when necessary shortness of breath Work-Up CXR compared to 09/08/2016 Decreased penetration, bilateral lower lobe opacifications, hilar fullness, cephalization, stephanie-bronchial cuffing Previous Work-Up: Micro-biology: Urine (02/28/16) Oxacillin resistant staph Cardiac Echo (02/21/16) LV: EF= >70%, LVH RV: WNL Atria: WNL Valves: no gross abnormality noted CT ABD (03/07/2016) Lower lobe emphysema with atelectasis vs. pleural scaring at the basis R>L CTA Chest (02/26/16) No acute PE Bibasilar atelectasis Emphysema Historian: patient, EMS Review of Systems Constitutional: reports: weakness Eyes: reports: no symptoms ENT: reports: no symptoms Cardiovascular: reports: no symptoms Respiratory: reports: as stated in HPI Gastrointestinal: reports: no symptoms Genitourinary - Female: reports: no symptoms Musculoskeletal: reports: myalgias Integumentary: reports: no symptoms Neurologic: reports: no symptoms Psychiatric: reports: no symptoms Endocrine: no symptoms Hematologic / Lymphatic: no symptoms Allergic / Immunologic: no symptoms Past Medical History Past Medical History: 1) ACOS/emphysema Intubation 02/24/16- 12/31/2016 FEV1: 66% 2) UTI (coag-negative staph: Oxacillin resistant) 3) Post ICU myopathy 4) Nocturnal Hypoxemia without hx of ARYAN (Dx: 2012) 5) Reflux Esophagitis 6) DM II 7) Allergic Rhinitis 8) HLD 9) Restless Leg Syndrome- secondary to iron deficiency anemia (RLS) 10) Morbid Obesity 11) HTN 10) desaturation study complete: Per respiratory therapy patient did not qualify for oxygen 11) Obesity Hypoventilation Syndrome (OHS) 12) Nocturnal hypoxemia without ARYAN dx 2012 oxygen dependent on 2 L nasal cannula since 2012 13) RAO nodule 2 mm stable since May 2010 14) Hiatal hernia 15) Depression 16) Osteoarthritis 17) C6 disc disease 18) Anemia 19) Carpal tunnel syndrome 20) History of cervical cancer 21) Rheumatoid Arthritis 22) Tobacco Use Disorder Past Medical History: COPD, other Past Surgical History: (1) colonoscopy (2) esophagogastroduodenoscopy (EGD) Past Surgical History: no surgical history Family History Diabetes mellitus FH: heart disease FH: lung disease FHx: cancer Hypertension Diabetes mellitus FH: heart disease FH: lung disease FHx: cancer Hypertension Social History Smoking Status: Former Smoker Alcohol Use: none Drug Use: none Marital Status: single Housing Status: lives alone Occupation Status: disabled Hx Tobacco Use In Past Year?: No Smoking Status: Former Smoker Alcohol: socially Drug Use: other Marital status: single Housing status: lives with family Occupational Status: disabled Immunizations History of Influenza Vaccine: Yes Influenza Vaccine Date: Nov 27, 2010 History of Tetanus Vaccine?: No History of Pneumococcal: Yes Pneumococcal Date: Mar 16, 2009 History of Hepatitis B Vaccine: No History of MDRO History of MDRO: No Allergies Coded Allergies: No Known Allergies (Verified , 09/22/16) Current Medications Reported Home Medications Medications Dose Route/Sig Max Daily Dose Days Date Category Dose Instructions Aspirin Chewable (Aspirin) 81 Mg Chew 81 Mg PO DAILY 09/22/16 Reported Zolpidem Tartrate 5 Mg Tab 5 Mg PO HS PRN 09/22/16 Reported Tylenol (Acetaminophen) 325 Mg Tab 650 Mg PO Q6 PRN 09/22/16 Reported Fluticasone Propionate 50 Mcg/Act Spr 2 [place] NA BID 09/22/16 Reported Ortley 5MG/325MG (Acetaminophen/Hydrocodone Bitart) Tab 1 Tablet PO Q8 PRN 09/22/16 Reported may take 1 extra for pain Kp Ferrous Sulfate (Ferrous Sulfate) 325 Mg Tab 1 Tab PO BID 30 09/22/16 Reported Ventolin Hfa (Albuterol) 200 Puffs/83812 Mcg Aers 2 Puffs INH Q4 PRN 09/22/16 Reported Spiriva Handihaler (Tiotropium Phelps) 30 Puff/540 Mcg Aerp 1 Cap INH DAILY 09/08/16 Reported Combivent Respimat (Ipratropium-Albuterol) 1 Aer Aer 1 Puffs INH Q8 PRN 09/08/16 Reported Vitamin B12 (Cyanocobalamin) 1,000 Mcg Tab 1,000 Mcg PO DAILY 02/21/16 Reported Potassium Chloride Er (Potassium Chloride) 10 Meq Tab 1 Tab PO DAILY PRN 12/28/15 Reported Mirapex Er (Pramipexole Dihydrochloride) 1.5 Mg Tab 1-2 Tabs PO HS PRN 12/28/15 Reported Duoneb (Ipratropium-Albuterol) 3 Ml Nebu 1 Treatment INH Q4H PRN 12/28/15 Reported Amitriptyline HCl 10 Mg Tab 10 Mg PO HS 12/28/15 Reported Tessalon Perles (Benzonatate) 100 Mg Cap 1-2 Cap PO TID PRN 5 12/28/15 Reported Oxygen Gas 2 Liters NA HS 07/23/15 Reported may use during day when needed Lipitor (Atorvastatin Calcium) 10 Mg Tab 10 Mg PO QAM 07/23/15 Reported Lasix (Furosemide) 20 Mg Tab 20 Mg PO QAM PRN 07/23/15 Reported Flexeril (Cyclobenzaprine Hcl) 10 Mg Tab 10 Mg PO BID PRN 07/23/15 Reported Singulair (Montelukast Sodium) 10 Mg Tab 10 Mg PO QAM 07/23/15 Reported Glucophage (Metformin Hcl) 1,000 Mg Tab 1,000 Mg PO BID 07/23/15 Reported Protonix (Pantoprazole Sodium) 40 Mg Tab 40 Mg PO QAM 07/23/15 Reported Cozaar (Losartan Potassium) 25 Mg Tab 25 Mg PO QAM 07/23/15 Reported Zantac (Ranitidine HCl) 300 Mg Tab 300 Mg PO HS 07/23/15 Reported Neurontin (Gabapentin) 100 Mg Cap 100 Mg PO TID 07/23/15 Reported Mirapex (Pramipexole Dihydrochloride) 0.5 Mg Tab 0.5 Mg PO BID 07/23/15 Reported Amaryl (Glimepiride) 1 Mg Tab 0.5 Tab PO QAM PRN 05/26/15 Reported Physical Physical Exam Vital Signs: Date Time Temp Pulse Resp B/P (MAP) Pulse Ox O2 Delivery O2 Flow Rate FiO2 09/22/16 08:00 BiPAP 40 09/22/16 07:30 36.5 106 20 164/98 (120) 100 BiPAP 40 09/22/16 07:26 110 20 96 BiPAP/CPAP 40 09/22/16 07:25 110 96 40 09/22/16 04:53 122 98 40 09/22/16 04:45 36.5 118 20 149/88 100 BiPAP 09/22/16 04:35 117 20 162/94 100 09/22/16 04:29 118 21 100 09/22/16 04:14 121 27 100 09/22/16 04:01 154/97 09/22/16 03:59 121 19 100 09/22/16 03:44 123 18 100 09/22/16 03:31 166/104 09/22/16 03:29 124 21 100 09/22/16 03:24 123 24 100 09/22/16 03:09 126 21 100 09/22/16 03:01 145/94 09/22/16 02:57 151/99 09/22/16 02:54 125 100 09/22/16 02:39 129 17 100 09/22/16 02:32 192/109 09/22/16 02:25 130 100 60 09/22/16 02:24 128 20 100 09/22/16 02:09 136 100 09/22/16 02:07 158/118 09/22/16 01:49 129 100 100 09/22/16 01:48 125 29 100 BiPAP/CPAP 100 09/22/16 01:44 125 09/22/16 01:39 124 100 09/22/16 01:33 126 34 178/130 87 Nasal Cannula 6.0 09/22/16 01:33 87 Nasal Cannula 6.0 09/22/16 01:31 178/130 General Appearance: moderate distress Head: NORMOCEPHALIC, ATRAUMATIC Eyes: PERRLA, NO DISCHARGE, EOMI ENT: NORMAL EAR EXAM, NORMAL NASAL EXAM, NORMAL MOUTH EXAM, NORMAL THROAT EXAM , NORMAL DENTAL EXAM Neck: NORMAL RANGE OF MOTION, NO TENDERNESS, TRACHEA MIDLINE, NO STRIDOR Respiratory: other (decreased breath sounds bilaterally with notable expiratory wheezing, ultrasound evaluation of the thorax shows bilateral B- lines suggest volume overload) Cardiovasular: other (tachycardic S1 and S2 distant heart sounds) Abdomen: NON TENDER, NORMAL BOWEL SOUNDS, NO REBOUND, NO MASSES, NO GUARDING Genitourinary - Female: EXTERNAL GENITALIA NORMAL Back: NORMAL INSPECTION, NO MIDLINE TENDERNESS, NO CVA TENDERNESS, NO PARAVERTEBRAL TTP Upper Extremities: NO EDEMA, NO DEFORMITY, NORMAL ROM Lower Extremities: other Edema: Bilateral LE (2+) Pulses: carotid (R) (2+), carotid (L) (2+), posterior tibial (R), posterior tibial (L) (2+) Neuro: ALERT, ORIENTED x 3, NORMAL MOTOR EXAM, NORMAL SENSATION Reflexes: biceps (R) (2+), bicpes (L) (2+), achilles (R) (2+), achilles (L) (2+ ) Babinski Testing: right (downgoing), left (downgoing) Psychiatric: NORMAL AFFECT, NO SUICIDAL IDEATION Diagnostics Labs Results Past 24 Hours Test 09/22/16 01:45 09/22/16 01:52 09/22/16 02:25 09/22/16 07:51 Range/Units White Blood Count 11.22 4.8-10.8 K/uL Red Blood Count 3.89 4.2-5.4 M/uL Hemoglobin 10.3 12.0-16.0 g/dL Hematocrit 34.3 37-47 % Mean Corpuscular Volume 88.2 80-100 fL Mean Corpuscular Hemoglobin 26.5 25-34 pg Mean Corpuscular Hemoglobin Concent 30.0 32-36 g/dl Platelet Count 389 130-400 K/uL Mean Platelet Volume 8.6 7.4-10.4 fL RDW Standard Deviation 51.3 36.4-46.3 fL RDW Coefficient of Variation 16.1 11.5-14.5 % Neutrophils % (Manual) 48.7 % Band Neutrophils % (Manual) 0.0 % Lymphocytes % (Manual) 26.5 % Variant Lymphocytes % (manual) 0.0 % Monocytes % (Manual) 6.2 % Eosinophils % (Manual) 0.9 % Basophils % (Manual) 0.9 % Neutrophils # (Manual) 5.46 1.4-6.5 K/uL Total Absolute Neutrophils 5.46 1.4-6.5 K/uL Lymphocytes # (Manual) 2.97 1.2-3.4 K/uL Total Absolute Lymphocytes 4.86 1.2-3.4 K/uL Monocytes # (Manual) 0.70 0.11-0.59 K/uL Eosinophils # (Manual) 0.10 0-0.5 K/uL Basophils # (Manual) 0.10 0-0.2 K/uL Percent Large Granular Lymphocytes 16.8 % Absolute Large Granular Lymphocytes 1.88 K/uL Red Blood Cell Morphology Unremarkable Prothrombin Time 9.4 9.0-12.0 SECONDS Prothromb Time International Ratio 0.9 0.9-1.1 Activated Partial Thromboplast Time 23.0 21.0-31.0 SECONDS Partial Thromboplastin Ratio 0.9 Sodium Level 144 136-145 mmol/L Potassium Level 3.7 3.5-5.1 mmol/L Chloride Level 107 98-107 mmol/L Carbon Dioxide Level 33 21-32 mmol/L Anion Gap 4.0 3-11 mmol/L Blood Urea Nitrogen 18 7-18 mg/dl Creatinine 1.00 0.60-1.20 mg/dl Est Creatinine Clear Calc Drug Dose 70.6 ml/min Estimated GFR () 69.9 Estimated GFR (Non- 60.3 BUN/Creatinine Ratio 18.3 10-20 Random Glucose 130 70-99 mg/dl Calcium Level 9.2 8.5-10.1 mg/dl Total Bilirubin < 0.1 0.2-1 mg/dl Aspartate Amino Transf (AST/SGOT) 14 15-37 U/L Alanine Aminotransferase (ALT/SGPT) 30 12-78 U/L Alkaline Phosphatase 96 45-117 U/L Total Protein 7.3 6.4-8.2 gm/dl Albumin 3.4 3.4-5.0 gm/dl Globulin 3.9 2.5-4.0 gm/dl Albumin/Globulin Ratio 0.9 0.9-2 Bedside Troponin I < 0.030 0-0.045 ng/ml SR-Feg-T-Type Natriuretic Peptide < 15 0-900 pg/ml Arterial Blood pH 7.33 7.35-7.45 Arterial Blood Partial Pressure CO2 62 35-46 mmHg Arterial Blood Partial Pressure O2 329 80-95 mm/Hg Arterial Blood HCO3 32 19-24 mmol/L Arterial Blood Oxygen Saturation 99.4 90-95 % Arterial Blood Base Excess 4.7 -9-1.8 mEq/L Arterial Blood Gas Delivery 60% Ziyad Test POS POS Bedside Glucose 262 70-90 mg/dl Microbiology Results 09/22/16 Blood Culture, Received Pending 09/22/16 Blood Culture, Received Pending Diagnostic Radiology CXR compared to 09/08/2016 Decreased penetration, bilateral lower lobe opacifications, hilar fullness, cephalization, stephanie-bronchial cuffing EKG Sinus tachycardia rate 120s Impression Assessment and Plan 61-year-old female with a ACOS currently admitted with recurrent respiratory insufficiency: #1 respiratory insufficiency: This patient is overall high risk for respiratory failure and agree with telemetry at this time. We will continue to monitor and his BiPAP has not been clinically verified in the overall stabilization of asthma as it is been looked at in COPD patients. I do agree with the current medications as well as not initiating antibiotics at this time as the patient does not show signs of active infection. The patient's ACOS is chronically exacerbated secondary to multiple factors: Obesity, possible sleep apnea, chronic gastroesophageal reflux disease, poor medication compliance and possible chronic rhinitis. At this time most of these issues will have to be followed up as an outpatient with repeat sleep study, evaluation for possible weight loss with Dr. Amy salinas as well as possible bariatric surgery of Cindy fundoplication for gastroesophageal reflux disease/patient will need Wooten evaluation prior to this. We will also send off for a cortisone level and urine tox screen at this time for further evaluation of etiologies of acute on chronic respiratory insufficiency. Workup: Patient's previous swallow evaluation 03/03/2016 did show signs of dysphonia after previous intubation. Prior to her repeat swallow evaluation will be warranted. Medications: Patient is currently on losartan (ARB) which in some patients is notable for exacerbation of underlying asthma. Patient may warrant a switch of antihypertensive medications.
--- NOTE | 2016-09-22 18:44 | Progress Note ---
Medicine Progress Note Date & Time of Visit: Sep 22, 2016 at 18:39. Subjective patient seen resting in bed, bipap in place states she feels improved compared to yesterday has dry cough denies chest pain, dyspnea, dizziness, nausea no other symptoms Objective Last 8 Hrs Date Time Temp Pulse Resp B/P (MAP) Pulse Ox O2 Delivery O2 Flow Rate FiO2 09/22/16 15:58 109 20 98 Nasal Cannula 5.0 09/22/16 15:40 36.5 110 20 130/75 (93) 97 Nasal Cannula 6.0 09/22/16 15:05 Nasal Cannula 6.0 09/22/16 12:00 BiPAP 30 09/22/16 11:37 35.9 111 20 124/73 (90) 95 BiPAP 09/22/16 11:10 107 20 100 BiPAP/CPAP 40 09/22/16 11:10 107 100 40 Physical Exam: General- oriented x 3, not in distress, speaks in sentences with no effort Head- atraumatic Eyes- EOMI, anicteric Neck- supple, no JVD Lungs- (+) scattered wheeze bilaterally Heart- regular rhythm; no murmur, normal rate Abdomen- normal bowel sounds, soft, nontender Extremities- no pretibial edema, no calf tenderness Neuro- alert, oriented x 3; no gross focal deficits Skin- warm & dry Laboratory Results: Last 24 Hours Test 09/22/16 01:45 09/22/16 01:52 09/22/16 02:25 09/22/16 07:51 White Blood Count 11.22 K/uL Red Blood Count 3.89 M/uL Hemoglobin 10.3 g/dL Hematocrit 34.3 % Mean Corpuscular Volume 88.2 fL Mean Corpuscular Hemoglobin 26.5 pg Mean Corpuscular Hemoglobin Concent 30.0 g/dl Platelet Count 389 K/uL Mean Platelet Volume 8.6 fL RDW Standard Deviation 51.3 fL RDW Coefficient of Variation 16.1 % Neutrophils % (Manual) 48.7 % Band Neutrophils % (Manual) 0.0 % Lymphocytes % (Manual) 26.5 % Variant Lymphocytes % (manual) 0.0 % Monocytes % (Manual) 6.2 % Eosinophils % (Manual) 0.9 % Basophils % (Manual) 0.9 % Neutrophils # (Manual) 5.46 K/uL Total Absolute Neutrophils 5.46 K/uL Lymphocytes # (Manual) 2.97 K/uL Total Absolute Lymphocytes 4.86 K/uL Monocytes # (Manual) 0.70 K/uL Eosinophils # (Manual) 0.10 K/uL Basophils # (Manual) 0.10 K/uL Percent Large Granular Lymphocytes 16.8 % Absolute Large Granular Lymphocytes 1.88 K/uL Red Blood Cell Morphology Unremarkable Prothrombin Time 9.4 SECONDS Prothromb Time International Ratio 0.9 Activated Partial Thromboplast Time 23.0 SECONDS Partial Thromboplastin Ratio 0.9 Sodium Level 144 mmol/L Potassium Level 3.7 mmol/L Chloride Level 107 mmol/L Carbon Dioxide Level 33 mmol/L Anion Gap 4.0 mmol/L Blood Urea Nitrogen 18 mg/dl Creatinine 1.00 mg/dl Est Creatinine Clear Calc Drug Dose 70.6 ml/min Estimated GFR () 69.9 Estimated GFR (Non- 60.3 BUN/Creatinine Ratio 18.3 Random Glucose 130 mg/dl Calcium Level 9.2 mg/dl Total Bilirubin < 0.1 mg/dl Aspartate Amino Transf (AST/SGOT) 14 U/L Alanine Aminotransferase (ALT/SGPT) 30 U/L Alkaline Phosphatase 96 U/L Total Protein 7.3 gm/dl Albumin 3.4 gm/dl Globulin 3.9 gm/dl Albumin/Globulin Ratio 0.9 Bedside Troponin I < 0.030 ng/ml [id number]-Type Natriuretic Peptide < 15 pg/ml Arterial Blood pH 7.33 Arterial Blood Partial Pressure CO2 62 mmHg Arterial Blood Partial Pressure O2 329 mm/Hg Arterial Blood HCO3 32 mmol/L Arterial Blood Oxygen Saturation 99.4 % Arterial Blood Base Excess 4.7 mEq/L Arterial Blood Gas Delivery 60% Ziyad Test POS Bedside Glucose 262 mg/dl Test 09/22/16 11:35 09/22/16 16:04 Bedside Glucose 219 mg/dl 191 mg/dl Date/Time Source Procedure Growth Status 09/22/16 02:10 Blood Blood Culture Pending Received 09/22/16 02:00 Blood Blood Culture Pending Received Assessment & Plan ACUTE HYPOXIC + HYPERCAPNIC RESPIRATORY FAILURE SECONDARY TO COPD EXACERBATION POSSIBLE COMPONENT OF DIASTOLIC CHF - continue Solumedrol, Nebs hold off on antibiotics Pulm consulted - Lasix 20mg PO one ordered HOARSENESS Hoarse since intubation several months ago. Has outpatient appt with ENT. HYPERTENSION Continue losartan. stable GERD Continue PPI. DM TYPE 2 oral meds on hold Lantus / NovoLog per protocol. VTE PROPHYLAXIS Moderate risk for VTE. SQ enoxaparin. Ambulate when able. RESUSCITATION STATUS Full code. DISPOSITION Admit to Telemetry Unit. Expected discharge to home. Internal Medicine follow-up with Dr. Martina Jay. Pulmonary Medicine follow-up with RADHA. . VTE Prophylaxis Given or contraindicated: Enoxaparin (Lovenox)SQ Current Inpatient Medications: Current Inpatient Medications Medications (Trade) Dose Ordered Sig/Allison Route Start Time Stop Time Status Last Admin Dose Admin Enoxaparin Sodium (Lovenox Inj) 40 mg DAILY SC 09/22/16 09:00 10/22/16 08:59 09/22/16 07:55 40 MG Acetaminophen (Tylenol Tab) 650 mg Q4H PRN PO 09/22/16 04:00 10/22/16 03:59 Ondansetron HCl (Zofran Inj) 4 mg Q6H PRN IV 09/22/16 04:00 10/22/16 03:59 Amitriptyline HCl (Elavil Tab) 10 mg HS PO 09/22/16 21:00 10/22/16 20:59 Aspirin (Ecotrin Tab) 81 mg DAILY PO 09/22/16 09:00 10/22/16 08:59 09/22/16 07:56 81 MG Atorvastatin Calcium (Lipitor Tab) 10 mg QAM PO 09/22/16 09:00 10/22/16 08:59 09/22/16 07:55 10 MG Benzonatate (Tessalon Perles Cap) 100 mg TID PRN PO 09/22/16 05:00 10/22/16 04:59 Cyclobenzaprine HCl (Flexeril Tab) 10 mg BID PRN PO 09/22/16 05:00 10/22/16 04:59 Fluticasone Propionate (Flonase Nasal [place]) 2 sprays BID LIDYA 09/22/16 09:00 10/22/16 08:59 09/22/16 07:55 2 SPRAYS Gabapentin (Neurontin Cap) 100 mg TID PO 09/22/16 09:00 10/22/16 08:59 09/22/16 13:48 100 MG Acetaminophen/ Hydrocodone Bitart ([place] 5/325 Tab) 1 tab Q8 PRN PO 09/22/16 05:00 10/06/16 04:59 Losartan Potassium (coZAAR TAB) 25 mg QAM PO 09/22/16 09:00 10/22/16 08:59 09/22/16 07:56 25 MG Montelukast Sodium (Singulair Tab) 10 mg HS PO 09/22/16 21:00 10/22/16 20:59 Pantoprazole Sodium (Protonix Tab) 40 mg QAM PO 09/22/16 09:00 10/22/16 08:59 09/22/16 07:56 40 MG Pramipexole Dihydrochloride (miraPEX TAB) 0.5 mg BID PO 09/22/16 09:00 10/22/16 08:59 09/22/16 07:55 0.5 MG Ranitidine HCl (zANTac TAB) 300 mg HS PO 09/22/16 21:00 10/22/16 20:59 Zolpidem Tartrate (Ambien Tab) 5 mg HS PRN PO 09/22/16 05:00 10/22/16 04:59 Methylprednisolone Sodium Succinate 20 mg/Syringe 0.32 ml @ 1.5 mls/min Q8H IV 09/22/16 06:00 10/22/16 05:59 09/22/16 13:48 1.5 MLS/MIN Ipratropium [place] (Atrovent 0.02% 0.5MG/2.5ML Neb) 0.5 mg QIDR INH 09/22/16 08:00 10/22/16 07:59 09/22/16 15:58 0.5 MG Levalbuterol (Xopenex 1.25MG/ 0.5ML Neb) 1.25 mg QIDR INH 09/22/16 08:00 10/22/16 07:59 09/22/16 15:58 1.25 MG Levalbuterol (Xopenex 0.63 Mg/ 3 Ml Neb) 0.63 mg Q2H PRN INH 09/22/16 05:00 10/22/16 04:59 Insulin Aspart (novoLOG ASPART) SLIDING SCALE G... ACHS SC 09/22/16 07:00 10/22/16 06:59 09/22/16 16:57 6 UNITS Insulin Glargine (Lantus Solostar Pen) 6 units BID SC 09/22/16 09:00 10/22/16 08:59 09/22/16 08:25 6 UNITS
[2016-09-22] MEDS ORDERED: FUROSEMIDE 20 MG TAB PO ONE (19:00)
[2016-09-22] MEDS: AMITRIPTYLINE HCL 10 MG TAB PO SCH (20:59)
[2016-09-22] MEDS: MONTELUKAST SOD 10 MG TAB PO SCH (21:00)
[2016-09-22] MEDS: RANITIDINE HCL 150 MG TAB PO SCH (21:00)
[2016-09-22] MEDS ORDERED: COUGH DROP (SUGAR FREE) LOZ 24 LOZ/1 BOX ONE (22:35)
[2016-09-22] MEDS: ZOLPIDEM TARTRATE 5 MG TAB PO PRN (22:36)
[2016-09-23] VITALS (11 sets, daily range): BP systolic 123–155; BP diastolic 65–91; PULSE 87–123; TEMP 36.5–36.9; O2SAT 92–100
[2016-09-23] MEDS: METHYLPREDNISOLONE IV 20 MG in SYRINGE 0 ML IV SCH ×3 (05:57→20:24)
[2016-09-23] MEDS: IPRATROPIUM BROMIDE NEB SOLN 0.02% 2.5 ML VIAL INH SCH ×4 (07:30→19:25)
[2016-09-23] MEDS: LEVALBUTEROL 1.25MG/0.5ML NEB INH SCH ×4 (07:30→19:25)
[2016-09-23 07:56] LABS: BUN/CREATININE RATIO 23.4 (10-20); CALCIUM 8.8 mg/dl (8.5-10.1); CREATININE 0.77 mg/dl (0.60-1.20)
[2016-09-23] MEDS: INSULIN ASPART 100 UNITS/ML 3 ML PEN SC SCH ×4 (08:15→20:17)
[2016-09-23 08:32] LABS: ESTIMATED AVERAGE GLUCOSE 151 mg/dl; HA1C FLAG Normal (Normal)
[2016-09-23] MEDS: GABAPENTIN 100 MG CAP PO SCH ×3 (09:02→20:23)
[2016-09-23] MEDS: FLUTICASONE PROPIONATE NA SPR 16 GM BTL NAE SCH ×2 (09:02→20:21)
[2016-09-23] MEDS: PRAMIPEXOLE DIHYDROCHLORIDE 0.5 MG TAB PO SCH ×2 (09:02→20:23)
[2016-09-23] MEDS: ASPIRIN 81 MG ECTAB PO SCH (09:03)
[2016-09-23] MEDS: LOSARTAN POTASSIUM 25 MG TAB PO SCH (09:03)
[2016-09-23] MEDS: BENZONATATE 100MG CAP PO PRN (09:03)
[2016-09-23] MEDS: PANTOprazole SOD 40 MG TAB PO SCH (09:03)
[2016-09-23] MEDS: ATORVASTATIN 10 MG TAB PO SCH (09:03)
[2016-09-23] MEDS: ENOXAPARIN 40 MG/0.4 ML SYR SC SCH (09:04)
[2016-09-23] MEDS: INSULIN GLARGINE SOLOSTAR 100 UNITS/ML 3 ML PEN SC SCH ×2 (09:05→20:25)
--- NOTE | 2016-09-23 10:47 | Progress Note ---
Medicine Progress Note Date & Time of Visit: Sep 23, 2016 at 10:40. Subjective patient seen resting in bed, comfortable on 3 liters NC, no dyspnea reports she feels improved compared to yesterday minimal dry cough denies chest pain no other symptom Objective Last 8 Hrs Date Time Temp Pulse Resp B/P (MAP) Pulse Ox O2 Delivery O2 Flow Rate FiO2 09/23/16 08:10 36.6 107 21 155/91 (112) 96 Nasal Cannula 3.0 09/23/16 07:54 Nasal Cannula 3.0 09/23/16 07:31 117 20 92 Nasal Cannula 2.0 09/23/16 04:00 Nasal Cannula 3.0 09/23/16 03:42 36.6 111 16 128/68 (88) 100 Nasal Cannula 3.0 Physical Exam: General- oriented x 3, not in distress, speaks in sentences with no effort Eyes- anicteric Neck- no JVD Lungs- mild scattered wheeze bilaterally, no rales Heart- regular rhythm; no murmur, normal rate Abdomen- normal bowel sounds, soft, nontender Extremities- no pretibial edema, no calf tenderness Neuro- alert, oriented x 3; no gross focal deficits Skin- warm & dry Laboratory Results: Last 24 Hours Test 09/22/16 11:35 09/22/16 16:04 09/22/16 20:22 09/23/16 06:20 Bedside Glucose 219 mg/dl 191 mg/dl 207 mg/dl 148 mg/dl Test 09/23/16 07:01 Sodium Level 141 mmol/L Potassium Level 4.0 mmol/L Chloride Level 105 mmol/L Carbon Dioxide Level 34 mmol/L Anion Gap 2.0 mmol/L Blood Urea Nitrogen 18 mg/dl Creatinine 0.77 mg/dl Est Creatinine Clear Calc Drug Dose 88.8 ml/min Estimated GFR () 95.9 Estimated GFR (Non- 82.8 BUN/Creatinine Ratio 23.4 Random Glucose 121 mg/dl Estimated Average Glucose 151 mg/dl Hemoglobin A1c 6.9 % Calcium Level 8.8 mg/dl Assessment & Plan ACUTE HYPOXIC + HYPERCAPNIC RESPIRATORY FAILURE SECONDARY TO COPD EXACERBATION POSSIBLE COMPONENT OF DIASTOLIC CHF - off bipap now on 3 liters via NC - CXR: no pneumonia speech therapy eval: no aspiration, only GERD -continue Solumedrol, Nebs Lasix 20mg po daily Protonix, Ranitidine wean off oxygen appreciate Pulmonary input HOARSENESS Hoarse since intubation several months ago. Has outpatient appt with ENT. HYPERTENSION change Losartan to Amlodipine as Losartan may be contributing to Asthma Flare GERD Continue PPI, Ranitidine DM TYPE 2 oral meds on hold Lantus / NovoLog per protocol. VTE PROPHYLAXIS Moderate risk for VTE. SQ enoxaparin. Ambulate when able. RESUSCITATION STATUS Full code. DISPOSITION Admit to Telemetry Unit. Expected discharge to home tomorrow Internal Medicine follow-up with Dr. Martina Jay. Pulmonary Medicine follow-up with [facility]. . VTE Prophylaxis Given or contraindicated: Enoxaparin (Lovenox)SQ Current Inpatient Medications: Current Inpatient Medications Medications (Trade) Dose Ordered Sig/Allison Route Start Time Stop Time Status Last Admin Dose Admin Enoxaparin Sodium (Lovenox Inj) 40 mg DAILY SC 09/22/16 09:00 10/22/16 08:59 09/23/16 09:04 40 MG Acetaminophen (Tylenol Tab) 650 mg Q4H PRN PO 09/22/16 04:00 10/22/16 03:59 Ondansetron HCl (Zofran Inj) 4 mg Q6H PRN IV 09/22/16 04:00 10/22/16 03:59 Amitriptyline HCl (Elavil Tab) 10 mg HS PO 09/22/16 21:00 10/22/16 20:59 09/22/16 20:59 10 MG Aspirin (Ecotrin Tab) 81 mg DAILY PO 09/22/16 09:00 10/22/16 08:59 09/23/16 09:03 81 MG Atorvastatin Calcium (Lipitor Tab) 10 mg QAM PO 09/22/16 09:00 10/22/16 08:59 09/23/16 09:03 10 MG Benzonatate (Tessalon Perles Cap) 100 mg TID PRN PO 09/22/16 05:00 10/22/16 04:59 09/23/16 09:03 100 MG Cyclobenzaprine HCl (Flexeril Tab) 10 mg BID PRN PO 09/22/16 05:00 10/22/16 04:59 Fluticasone Propionate (Flonase Nasal [place]) 2 sprays BID LIDYA 09/22/16 09:00 10/22/16 08:59 09/23/16 09:02 2 SPRAYS Gabapentin (Neurontin Cap) 100 mg TID PO 09/22/16 09:00 10/22/16 08:59 09/23/16 09:02 100 MG Acetaminophen/ Hydrocodone Bitart ([place] 5/325 Tab) 1 tab Q8 PRN PO 09/22/16 05:00 10/06/16 04:59 Montelukast Sodium (Singulair Tab) 10 mg HS PO 09/22/16 21:00 10/22/16 20:59 09/22/16 21:00 10 MG Pantoprazole Sodium (Protonix Tab) 40 mg QAM PO 09/22/16 09:00 10/22/16 08:59 09/23/16 09:03 40 MG Pramipexole Dihydrochloride (miraPEX TAB) 0.5 mg BID PO 09/22/16 09:00 10/22/16 08:59 09/23/16 09:02 0.5 MG Ranitidine HCl (zANTac TAB) 300 mg HS PO 09/22/16 21:00 10/22/16 20:59 09/22/16 21:00 300 MG Zolpidem Tartrate (Ambien Tab) 5 mg HS PRN PO 09/22/16 05:00 10/22/16 04:59 09/22/16 22:36 5 MG Methylprednisolone Sodium Succinate 20 mg/Syringe 0.32 ml @ 1.5 mls/min Q8H IV 09/22/16 06:00 10/22/16 05:59 09/23/16 05:57 1.5 MLS/MIN Ipratropium [place] (Atrovent 0.02% 0.5MG/2.5ML Neb) 0.5 mg QIDR INH 09/22/16 08:00 10/22/16 07:59 09/23/16 07:30 0.5 MG Levalbuterol (Xopenex 1.25MG/ 0.5ML Neb) 1.25 mg QIDR INH 09/22/16 08:00 10/22/16 07:59 09/23/16 07:30 1.25 MG Levalbuterol (Xopenex 0.63 Mg/ 3 Ml Neb) 0.63 mg Q2H PRN INH 09/22/16 05:00 10/22/16 04:59 Insulin Aspart (novoLOG ASPART) SLIDING SCALE G... ACHS SC 09/22/16 07:00 10/22/16 06:59 09/23/16 08:15 4 UNITS Insulin Glargine (Lantus Solostar Pen) 6 units BID SC 09/22/16 09:00 10/22/16 08:59 09/23/16 09:05 6 UNITS Amlodipine Besylate (Norvasc Tab) 5 mg QAM PO 09/24/16 09:00 10/24/16 08:59
[2016-09-23] MEDS ORDERED: FUROSEMIDE 20 MG TAB PO ONE (11:15)
--- NOTE | 2016-09-23 12:56 | Clinical Documentation Query ---
CLINICAL DOCUMENTATION QUERY Dr. CARR, In your clinical opinion is this patient being managed for: ( ) possible Acute diastolic CHF ( ) chronic diastolic CHF ( ) Other explanation of clinical findings (Please Explain) ( ) Unable to determine (Please Define) ( ) Need to Discuss ( ) Not Agree The medical record reflects the following clinical findings, treatment, and risk factors. Clinical Indicators: 61 yo female presenting with persistent dyspnea. Documentation in progress note 09/23 indicates possible component of diastolic CHF. CXR showed developing congestive failure. Treatment:tele, po lasix x 2 doses (09/22 then 09/23) then daily, daily wts, I/O Risk Factors:morbid obesity, COPD, DM Please clarify and document your clinical opinion in the progress notes and discharge summary. Terms such as "probable", "suspected", "likely", "questionable", "possible", or "still to be ruled out" are acceptable. IF IN AGREEMENT, YOU MUST DOCUMENT ABOVE DIAGNOSTIC STATEMENT IN DAILY PROGRESS NOTES AND DISCHARGE SUMMARY. This document is not part of the patient's record. Thank You, Laurel Galindo, HALEY [phone]
--- NOTE | 2016-09-23 18:19 | Pulmonology Progress Note ---
Pulmonary Progress Note Date of Service Sep 23, 2016. Attending Dr. Solis Subjective Patient is dramatic improvement in her respiratory status over the previous 24 hours. Objective 5-year-old female admitted with asthma exacerbation: Vital signs: Currently stable on 3 L nasal cannula x-ray respiratory: Notable expiratory wheezes bilaterally Cardiac: S1-S2 regular rate rhythm no murmurs rubs or gallops Abdomen: Positive bowel sounds soft nontender Assessment & Plan 61-year-old female admitted with asthma exacerbation: #1 Asthma exacerbation: The patient is responded well to the therapy and is currently stable off BiPAP on 3 L nasal cannula. I suggest we continue current medical regimen. Peak flow meter: At this time will perform peak flow meter 3 times a day. Status: The patient is doing well and shows dramatic improvement as well as stable peak flow meter will start on oral prednisone. #2 Future control/outpatient workup: The social believe be important for the patient to be worked up for her obesity, possible sleep apnea disorder, chronic gastroesophageal reflux disease, and history of chronic rhinitis. Once again as an outpatient we should consult Dr. Amy Valderrama of the bariatric center. Data Medications: Current Inpatient Medications Medications (Trade) Dose Ordered Sig/Allison Route Start Time Stop Time Status Last Admin Dose Admin Enoxaparin Sodium (Lovenox Inj) 40 mg DAILY SC 09/22/16 09:00 10/22/16 08:59 09/23/16 09:04 40 MG Acetaminophen (Tylenol Tab) 650 mg Q4H PRN PO 09/22/16 04:00 10/22/16 03:59 Ondansetron HCl (Zofran Inj) 4 mg Q6H PRN IV 09/22/16 04:00 10/22/16 03:59 Amitriptyline HCl (Elavil Tab) 10 mg HS PO 09/22/16 21:00 10/22/16 20:59 09/22/16 20:59 10 MG Aspirin (Ecotrin Tab) 81 mg DAILY PO 09/22/16 09:00 10/22/16 08:59 09/23/16 09:03 81 MG Atorvastatin Calcium (Lipitor Tab) 10 mg QAM PO 09/22/16 09:00 10/22/16 08:59 09/23/16 09:03 10 MG Benzonatate (Tessalon Perles Cap) 100 mg TID PRN PO 09/22/16 05:00 10/22/16 04:59 09/23/16 09:03 100 MG Cyclobenzaprine HCl (Flexeril Tab) 10 mg BID PRN PO 09/22/16 05:00 10/22/16 04:59 Fluticasone Propionate (Flonase Nasal [place]) 2 sprays BID LIDYA 09/22/16 09:00 10/22/16 08:59 09/23/16 09:02 2 SPRAYS Gabapentin (Neurontin Cap) 100 mg TID PO 09/22/16 09:00 10/22/16 08:59 09/23/16 14:28 100 MG Acetaminophen/ Hydrocodone Bitart ([place] 5/325 Tab) 1 tab Q8 PRN PO 09/22/16 05:00 10/06/16 04:59 Montelukast Sodium (Singulair Tab) 10 mg HS PO 09/22/16 21:00 10/22/16 20:59 09/22/16 21:00 10 MG Pantoprazole Sodium (Protonix Tab) 40 mg QAM PO 09/22/16 09:00 10/22/16 08:59 09/23/16 09:03 40 MG Pramipexole Dihydrochloride (miraPEX TAB) 0.5 mg BID PO 09/22/16 09:00 10/22/16 08:59 09/23/16 09:02 0.5 MG Ranitidine HCl (zANTac TAB) 300 mg HS PO 09/22/16 21:00 10/22/16 20:59 09/22/16 21:00 300 MG Zolpidem Tartrate (Ambien Tab) 5 mg HS PRN PO 09/22/16 05:00 10/22/16 04:59 09/22/16 22:36 5 MG Methylprednisolone Sodium Succinate 20 mg/Syringe 0.32 ml @ 1.5 mls/min Q8H IV 09/22/16 06:00 10/22/16 05:59 09/23/16 14:28 1.5 MLS/MIN Ipratropium [place] (Atrovent 0.02% 0.5MG/2.5ML Neb) 0.5 mg QIDR INH 09/22/16 08:00 10/22/16 07:59 09/23/16 15:38 0.5 MG Levalbuterol (Xopenex 1.25MG/ 0.5ML Neb) 1.25 mg QIDR INH 09/22/16 08:00 10/22/16 07:59 09/23/16 15:38 1.25 MG Levalbuterol (Xopenex 0.63 Mg/ 3 Ml Neb) 0.63 mg Q2H PRN INH 09/22/16 05:00 10/22/16 04:59 Insulin Aspart (novoLOG ASPART) SLIDING SCALE G... ACHS SC 09/22/16 07:00 10/22/16 06:59 09/23/16 17:08 8 UNITS Insulin Glargine (Lantus Solostar Pen) 6 units BID SC 09/22/16 09:00 10/22/16 08:59 09/23/16 09:05 6 UNITS Amlodipine Besylate (Norvasc Tab) 5 mg QAM PO 09/24/16 09:00 10/24/16 08:59 Furosemide (Lasix Tab) 20 mg QAM PO 09/24/16 09:00 10/24/16 08:59 I & O: 24-Hour Column 09/24/16 08:00 Intake Total 120 ml Balance 120 ml Vital Signs: Date Time Temp Pulse Resp B/P (MAP) Pulse Ox O2 Delivery O2 Flow Rate FiO2 09/23/16 16:00 Nasal Cannula 3.0 09/23/16 15:44 36.9 109 22 135/76 (95) 98 Nasal Cannula 3.0 09/23/16 15:38 99 20 97 Nasal Cannula 3.0 09/23/16 12:00 99 Nasal Cannula 3.0 30 09/23/16 11:32 111 20 99 Nasal Cannula 3.0 09/23/16 11:01 36.9 123 20 152/79 (103) 96 Room Air 09/23/16 08:10 36.6 107 21 155/91 (112) 96 Nasal Cannula 3.0 09/23/16 07:54 Nasal Cannula 3.0 09/23/16 07:31 117 20 92 Nasal Cannula 3.0 09/23/16 04:00 Nasal Cannula 3.0 09/23/16 03:42 36.6 111 16 128/68 (88) 100 Nasal Cannula 3.0 09/22/16 23:59 Nasal Cannula 3.0 09/22/16 23:31 36.9 112 20 118/61 (80) 96 Nasal Cannula 3.0 09/22/16 20:00 Nasal Cannula 3.0 09/22/16 19:46 91 18 94 Nasal Cannula 3.0 09/22/16 19:37 36.9 120 20 123/70 (87) 96 Nasal Cannula 4.0 Laboratory Results: Last 24 Hours Test 09/22/16 20:22 09/23/16 06:20 09/23/16 07:01 09/23/16 11:33 Bedside Glucose 207 mg/dl 148 mg/dl 196 mg/dl Sodium Level 141 mmol/L Potassium Level 4.0 mmol/L Chloride Level 105 mmol/L Carbon Dioxide Level 34 mmol/L Anion Gap 2.0 mmol/L Blood Urea Nitrogen 18 mg/dl Creatinine 0.77 mg/dl Est Creatinine Clear Calc Drug Dose 88.8 ml/min Estimated GFR () 95.9 Estimated GFR (Non- 82.8 BUN/Creatinine Ratio 23.4 Random Glucose 121 mg/dl Estimated Average Glucose 151 mg/dl Hemoglobin A1c 6.9 % Calcium Level 8.8 mg/dl Test 09/23/16 16:04 Bedside Glucose 249 mg/dl
[2016-09-23] MEDS: AMITRIPTYLINE HCL 10 MG TAB PO SCH (20:23)
[2016-09-23] MEDS: MONTELUKAST SOD 10 MG TAB PO SCH (20:23)
[2016-09-23] MEDS: RANITIDINE HCL 150 MG TAB PO SCH (20:23)
[2016-09-23] MEDS: ZOLPIDEM TARTRATE 5 MG TAB PO PRN (23:45)
[2016-09-24] VITALS (9 sets, daily range): BP systolic 137–149; BP diastolic 70–90; PULSE 91–115; TEMP 36.6–37; O2SAT 94–100
[2016-09-24] MEDS: METHYLPREDNISOLONE IV 20 MG in SYRINGE 0 ML IV SCH (05:49)
[2016-09-24] MEDS: IPRATROPIUM BROMIDE NEB SOLN 0.02% 2.5 ML VIAL INH SCH ×2 (07:25→11:20)
[2016-09-24] MEDS: LEVALBUTEROL 1.25MG/0.5ML NEB INH SCH ×2 (07:25→11:20)
[2016-09-24] MEDS: INSULIN ASPART 100 UNITS/ML 3 ML PEN SC SCH ×4 (08:20→21:04)
[2016-09-24] MEDS: FUROSEMIDE 20 MG TAB PO SCH (09:00)
[2016-09-24] MEDS: ENOXAPARIN 40 MG/0.4 ML SYR SC SCH (09:00)
[2016-09-24] MEDS: ASPIRIN 81 MG ECTAB PO SCH (09:00)
[2016-09-24] MEDS: PRAMIPEXOLE DIHYDROCHLORIDE 0.5 MG TAB PO SCH ×2 (09:00→21:01)
[2016-09-24] MEDS: ATORVASTATIN 10 MG TAB PO SCH (09:00)
[2016-09-24] MEDS: FLUTICASONE PROPIONATE NA SPR 16 GM BTL NAE SCH ×2 (09:00→21:01)
[2016-09-24] MEDS: PANTOprazole SOD 40 MG TAB PO SCH (09:00)
[2016-09-24] MEDS: AMLODIPINE BESYLATE 5 MG TAB PO SCH (09:00)
[2016-09-24] MEDS: GABAPENTIN 100 MG CAP PO SCH ×3 (09:00→21:01)
--- NOTE | 2016-09-24 11:29 | Progress Note ---
Medicine Progress Note Date & Time of Visit: Sep 24, 2016 at 11:24. Subjective patient seen resting in bed, comfortable on 3 liters NC states she feels much better denies dyspnea, cough, chest pain no other symptoms, states she is ready and would like to be discharged today Objective Last 8 Hrs Date Time Temp Pulse Resp B/P (MAP) Pulse Ox O2 Delivery O2 Flow Rate FiO2 09/24/16 11:14 37.0 96 18 145/90 (108) 99 Room Air 09/24/16 08:00 Nasal Cannula 3.0 09/24/16 07:56 36.8 97 18 149/83 (105) 97 3.0 09/24/16 07:25 97 20 97 Nasal Cannula 3.0 09/24/16 04:11 36.7 92 20 145/83 (103) 100 Nasal Cannula 3.0 09/24/16 04:00 Nasal Cannula 3.0 Physical Exam: General- oriented x 3, not in distress, speaks in sentences with no effort Neck- no JVD Lungs- occasional mild wheeze bilaterally, no rales Heart- regular rhythm; no murmur, normal rate Abdomen- normal bowel sounds, soft, nontender Extremities- no pretibial edema, no calf tenderness Neuro- alert, oriented x 3; no gross focal deficits Skin- warm & dry Laboratory Results: Last 24 Hours Test 09/23/16 11:33 09/23/16 16:04 09/23/16 20:16 09/24/16 06:51 Bedside Glucose 196 mg/dl 249 mg/dl 155 mg/dl 124 mg/dl Assessment & Plan ACUTE HYPOXIC + HYPERCAPNIC RESPIRATORY FAILURE SECONDARY TO COPD EXACERBATION POSSIBLE COMPONENT OF DIASTOLIC CHF - off bipap now on 3 liters via NC - CXR: no pneumonia speech therapy eval: no aspiration, only GERD - placed on Solumedrol, Nebs Lasix 20mg po daily Protonix, Ranitidine - clinically improved weaned off oxygen evaluated by Pulmonary Dr. Solis - discharge on: Prednisone taper continue usual bronchodilators Lasix 20mg po daily advised to elevated head of bed when sleeping, no meals 2 hours before going to bed ff up with Pulmonary in 1-2 weeks HOARSENESS Hoarse since intubation several months ago. Has outpatient appt with ENT. HYPERTENSION changed Losartan to Amlodipine as Losartan may be contributing to Asthma Flare BP stable monitor GERD Continue PPI, Ranitidine DM TYPE 2 continue usual oral agents VTE PROPHYLAXIS Moderate risk for VTE. SQ enoxaparin given RESUSCITATION STATUS Full code. DISPOSITION d/c home ff up with Dr. Martina Jay in 1 week Pulmonary Medicine follow-up with [facility] in 1-2 weeks . VTE Prophylaxis Given or contraindicated: Enoxaparin (Lovenox)SQ Current Inpatient Medications: Current Inpatient Medications Medications (Trade) Dose Ordered Sig/[place]ison Route Start Time Stop Time Status Last Admin Dose Admin Enoxaparin Sodium (Lovenox Inj) 40 mg DAILY SC 09/22/16 09:00 10/22/16 08:59 09/23/16 09:04 40 MG Acetaminophen (Tylenol Tab) 650 mg Q4H PRN PO 09/22/16 04:00 10/22/16 03:59 Ondansetron HCl (Zofran Inj) 4 mg Q6H PRN IV 09/22/16 04:00 10/22/16 03:59 Amitriptyline HCl (Elavil Tab) 10 mg HS PO 09/22/16 21:00 10/22/16 20:59 09/23/16 20:23 10 MG Aspirin (Ecotrin Tab) 81 mg DAILY PO 09/22/16 09:00 10/22/16 08:59 09/23/16 09:03 81 MG Atorvastatin Calcium (Lipitor Tab) 10 mg QAM PO 09/22/16 09:00 10/22/16 08:59 09/23/16 09:03 10 MG Benzonatate (Tessalon Perles Cap) 100 mg TID PRN PO 09/22/16 05:00 10/22/16 04:59 09/23/16 09:03 100 MG Cyclobenzaprine HCl (Flexeril Tab) 10 mg BID PRN PO 09/22/16 05:00 10/22/16 04:59 Fluticasone Propionate (Flonase Nasal [place]) 2 sprays BID LIDYA 09/22/16 09:00 10/22/16 08:59 09/23/16 20:21 2 SPRAYS Gabapentin (Neurontin Cap) 100 mg TID PO 09/22/16 09:00 10/22/16 08:59 09/23/16 20:23 100 MG Acetaminophen/ Hydrocodone Bitart ([place] 5/325 Tab) 1 tab Q8 PRN PO 09/22/16 05:00 10/06/16 04:59 Montelukast Sodium (Singulair Tab) 10 mg HS PO 09/22/16 21:00 10/22/16 20:59 09/23/16 20:23 10 MG Pantoprazole Sodium (Protonix Tab) 40 mg QAM PO 09/22/16 09:00 10/22/16 08:59 09/23/16 09:03 40 MG Pramipexole Dihydrochloride (miraPEX TAB) 0.5 mg BID PO 09/22/16 09:00 10/22/16 08:59 09/23/16 20:23 0.5 MG Ranitidine HCl (zANTac TAB) 300 mg HS PO 09/22/16 21:00 10/22/16 20:59 09/23/16 20:23 300 MG Zolpidem Tartrate (Ambien Tab) 5 mg HS PRN PO 09/22/16 05:00 10/22/16 04:59 09/23/16 23:45 5 MG Methylprednisolone Sodium Succinate 20 mg/Syringe 0.32 ml @ 1.5 mls/min Q8H IV 09/22/16 06:00 10/22/16 05:59 09/24/16 05:49 1.5 MLS/MIN Ipratropium [place] (Atrovent 0.02% 0.5MG/2.5ML Neb) 0.5 mg QIDR INH 09/22/16 08:00 10/22/16 07:59 09/24/16 07:25 0.5 MG Levalbuterol (Xopenex 1.25MG/ 0.5ML Neb) 1.25 mg QIDR INH 09/22/16 08:00 10/22/16 07:59 09/24/16 07:25 1.25 MG Levalbuterol (Xopenex 0.63 Mg/ 3 Ml Neb) 0.63 mg Q2H PRN INH 09/22/16 05:00 10/22/16 04:59 Insulin Aspart (novoLOG ASPART) SLIDING SCALE G... ACHS SC 09/22/16 07:00 10/22/16 06:59 09/24/16 08:20 3 UNITS Insulin Glargine (Lantus Solostar Pen) 6 units BID SC 09/22/16 09:00 10/22/16 08:59 09/23/16 20:25 6 UNITS Amlodipine Besylate (Norvasc Tab) 5 mg QAM PO 09/24/16 09:00 10/24/16 08:59 Furosemide (Lasix Tab) 20 mg QAM PO 09/24/16 09:00 10/24/16 08:59
[2016-09-24] MEDS ORDERED: VNTHFA/IN INH (11:36)
[2016-09-24] MEDS ORDERED: OXGN (11:36)
[2016-09-24] MEDS ORDERED: POTA-74 PO (11:36)
[2016-09-24] MEDS ORDERED: LSX20 PO (11:36)
[2016-09-24] MEDS ORDERED: NRV5 PO (11:36)
[2016-09-24] MEDS ORDERED: IPRA1AER2 INH ×2 (11:36→11:53)
[2016-09-24] MEDS ORDERED: PRED10TA PO (11:38)
[2016-09-24] MEDS ORDERED: ALBUTEROL HFA 8 GM INHALER INH ONE (11:45)
--- NOTE | 2016-09-24 11:48 | Discharge Instructions ---
Discharge Instructions Date of Service Sep 24, 2016. Admission Reason for Admission: Acute Exacerbation Of Copd With Asthma Discharge Discharge Diagnosis / Problem: Acute COPD Exacerbation Discharge Goals Goal(s): Diagnostic testing, Therapeutic intervention Activity Recommendations Activity Limitations: as noted below (no heavy exertion until re-evaluated by Primary Care Physician) . Instructions / Follow-Up Instructions / Follow-Up PLEASE REVIEW YOUR NEW MEDICATION LIST AND FOLLOW INSTRUCTIONS CAREFULLY. CALL PRIMARY CARE PHYSICIAN OR RETURN TO ER IMMEDIATELY IF WITH RECURRENCE OF SYMPTOMS, INCREASING SHORTNESS OF BREATH, COUGH, FEVER/CHILLS, LEG SWELLING. FOLLOW UP WITH PRIMARY CARE PHYSICIAN IN 3-5 DAYS. (CLINIC WILL CALL YOU FOR THE APPOINTMENT). FOLLOW UP WITH [facility] MANAGER IN 1 WEEK. Current Hospital Diet Patient's current hospital diet: Diabetes Type 2 Diet Discharge Diet Recommended Diet: AHA Diet (Heart Healthy), Diabetes Type 2 Diet Fluid Restriction: 2000 ml (8 cups) Pending Studies Studies pending at discharge: no Laboratory Results Hemoglobin A1c Test 09/23/16 07:01 Range/Units Estimated Average Glucose 151 mg/dl Hemoglobin A1c 6.9 H 4.5-5.6 % Medical Emergencies . Who to Call and When: Medical Emergencies: If at any time you feel your situation is an emergency, please call 911 immediately. . Non-Emergent Contact Non-Emergency issues call your: Primary Care Provider, [facility] Call Non-Emergent contact if: you have a fever, you have any medication questions . . "Provider Documentation" section prepared by Rene Murillo. . VTE Core Measure Inpt VTE Proph given/why not?: Enoxaparin (Lovenox)SQ
[2016-09-24] MEDS ORDERED: FLUT1INH7 INH (11:53)
[2016-09-24] MEDS: INSULIN GLARGINE SOLOSTAR 100 UNITS/ML 3 ML PEN SC SCH ×2 (12:34→21:05)
[2016-09-24] MEDS: IPRATROPIUM BROMIDE/ALBUTEROL respimat INH INH SCH ×3 (13:00→21:01)
--- NOTE | 2016-09-24 14:26 | Pulmonology Progress Note ---
Pulmonary Progress Note Date of Service Sep 24, 2016. Attending Dr. Solis Subjective Patient was at her bedside ready to go home when I entered the room. She notes a dramatic improvement in her overall respiratory status. Objective The patient shows no signs of increased work of breathing at this time. She did have a peak flow meter and hour before evaluation which post bronchodilator was only 200 mL. I spoke to her at length and stressed that she is still not out of danger and has a high risk of possible respiratory insufficiency. LABS: ABG: (09/22/16) 7.33/62/329/32BIPAP/60% Micro: Blood cultures: Negative to date CXR (09/22/16) Poor penetration, increased pulmonary vasculature, bibasilar atelectasis, left costo-phrenic blunting VS: I/Os: +1.4Total: L 24hrs: +00cc SaO2: 95-100% FiO2: 3L RR: 18-20 PEAK FLOW: (09/24/16: 11:20) Yaw-Rzqrhnk-Hamfjvj: 150ml Post-Dilator: 200ml ( noted good effort) GEN: Oriented 3 RESP: Bilateral expiratory wheezing CARD: S1-S2 regular rate and rhythm ABD: Positive bowel sounds no tenderness palpation notably obese Medications #1 Combivent one puff 4 times per day #2 singular 10 mg daily at bedtime #3 nicotine 300 mg daily at bedtime #4 Lovenox 40 mg subcutaneous daily #5 Flonase nasal spray 2 puffs twice daily #6 Protonix 40 mg by mouth daily -#--7- -W-k-d-[id number]-n-e-x--/--T-l-[id number]-v-e-n-t- -4- -t-i-m-e-s- -d-a-i-l-y- #8 methylprednisolone 20 mg IV every 8 hours #9 Xopenex 0.60 mg every 2 hours when necessary shortness of breath Assessment & Plan 61-year-old female admitted with asthma exacerbation: #1 Asthma Exacerbation: The patient's overall respiratory status has dramatically improved but earlier today she was only able to blow 200 cc via peak flow meter. When I was in the room she was able to blow 250 but was still actively being treated with IV steroids and not switch to by mouth. The patient is very insistent that she believes but is able to talk her into at least wait until this evening when performing peak flow meter after actively walking for 5- 6 minute window. If at that time the peak flow meter is greater than 300 I believe we can then discharge the patient safely on an active prednisone tapering dose: 60 mg 4 days then 10 mg every 3 days after that until discontinued. #2 Inhalors: There is some confusion about the patient's new inhaler regimen. Her primary pulmonary provider Trista Ireland recently switched her over to a new medication Utibron which is a LABA-LAMA combination. This time the hospital does not have this medication but we will continue her on Combivent one puff 4 times daily at this time which will cover her anticholinergic and muscarinic activity. I will discontinue her current Xopenex/albuterol nebulizer. Patient was also taken off her previous inhaler Breo Ellipta 200-25 g. Data Medications: Current Inpatient Medications Medications (Trade) Dose Ordered Sig/Allison Route Start Time Stop Time Status Last Admin Dose Admin Enoxaparin Sodium (Lovenox Inj) 40 mg DAILY SC 09/22/16 09:00 10/22/16 08:59 09/24/16 09:00 40 MG Acetaminophen (Tylenol Tab) 650 mg Q4H PRN PO 09/22/16 04:00 10/22/16 03:59 Ondansetron HCl (Zofran Inj) 4 mg Q6H PRN IV 09/22/16 04:00 10/22/16 03:59 Amitriptyline HCl (Elavil Tab) 10 mg HS PO 09/22/16 21:00 10/22/16 20:59 09/23/16 20:23 10 MG Aspirin (Ecotrin Tab) 81 mg DAILY PO 09/22/16 09:00 10/22/16 08:59 09/24/16 09:00 81 MG Atorvastatin Calcium (Lipitor Tab) 10 mg QAM PO 09/22/16 09:00 10/22/16 08:59 09/24/16 09:00 10 MG Benzonatate (Tessalon Perles Cap) 100 mg TID PRN PO 09/22/16 05:00 10/22/16 04:59 09/23/16 09:03 100 MG Cyclobenzaprine HCl (Flexeril Tab) 10 mg BID PRN PO 09/22/16 05:00 10/22/16 04:59 Fluticasone Propionate (Flonase Nasal [place]) 2 sprays BID LIDYA 09/22/16 09:00 10/22/16 08:59 09/24/16 09:00 2 SPRAYS Gabapentin (Neurontin Cap) 100 mg TID PO 09/22/16 09:00 10/22/16 08:59 09/24/16 09:00 100 MG Acetaminophen/ Hydrocodone Bitart ([place] 5/325 Tab) 1 tab Q8 PRN PO 09/22/16 05:00 10/06/16 04:59 Montelukast Sodium (Singulair Tab) 10 mg HS PO 09/22/16 21:00 10/22/16 20:59 09/23/16 20:23 10 MG Pantoprazole Sodium (Protonix Tab) 40 mg QAM PO 09/22/16 09:00 10/22/16 08:59 09/24/16 09:00 40 MG Pramipexole Dihydrochloride (miraPEX TAB) 0.5 mg BID PO 09/22/16 09:00 10/22/16 08:59 09/24/16 09:00 0.5 MG Ranitidine HCl (zANTac TAB) 300 mg HS PO 09/22/16 21:00 10/22/16 20:59 09/23/16 20:23 300 MG Zolpidem Tartrate (Ambien Tab) 5 mg HS PRN PO 09/22/16 05:00 10/22/16 04:59 09/23/16 23:45 5 MG Ipratropium [place] (Atrovent 0.02% 0.5MG/2.5ML Neb) 0.5 mg QIDR INH 09/22/16 08:00 10/22/16 07:59 09/24/16 11:20 0.5 MG Levalbuterol (Xopenex 1.25MG/ 0.5ML Neb) 1.25 mg QIDR INH 09/22/16 08:00 10/22/16 07:59 09/24/16 11:20 1.25 MG Levalbuterol (Xopenex 0.63 Mg/ 3 Ml Neb) 0.63 mg Q2H PRN INH 09/22/16 05:00 10/22/16 04:59 Insulin Aspart (novoLOG ASPART) SLIDING SCALE G... ACHS SC 09/22/16 07:00 10/22/16 06:59 09/24/16 12:33 3 UNITS Insulin Glargine (Lantus Solostar Pen) 6 units BID SC 09/22/16 09:00 10/22/16 08:59 09/24/16 12:34 6 UNITS Amlodipine Besylate (Norvasc Tab) 5 mg QAM PO 09/24/16 09:00 10/24/16 08:59 09/24/16 09:00 5 MG Furosemide (Lasix Tab) 20 mg QAM PO 09/24/16 09:00 10/24/16 08:59 09/24/16 09:00 20 MG Albuterol/ Ipratropium (Combivent Respimat Inh) 1 puffs QID INH 09/24/16 13:00 10/24/16 12:59 Prednisone (PredniSONE TAB) 40 mg ONE PO 09/24/16 14:00 10/24/16 13:59 UNV I & O: 24-Hour Column 09/25/16 08:00 Intake Total 600 ml Balance 600 ml Vital Signs: Date Time Temp Pulse Resp B/P (MAP) Pulse Ox O2 Delivery O2 Flow Rate FiO2 09/24/16 12:00 99 Nasal Cannula 3.0 BiPAP 09/24/16 11:29 37.0 96 18 99 Nasal Cannula BiPAP 09/24/16 11:20 115 20 95 Nasal Cannula 3.0 09/24/16 11:14 37.0 96 18 145/90 (108) 99 Room Air 09/24/16 08:00 Nasal Cannula 3.0 09/24/16 07:56 36.8 97 18 149/83 (105) 97 3.0 09/24/16 07:25 97 20 97 Nasal Cannula 3.0 09/24/16 04:11 36.7 92 20 145/83 (103) 100 Nasal Cannula 3.0 09/24/16 04:00 Nasal Cannula 3.0 09/24/16 00:00 Nasal Cannula 3.0 09/23/16 23:37 36.9 87 22 123/79 (94) 98 Nasal Cannula 3.0 09/23/16 20:00 Nasal Cannula 3.0 09/23/16 19:42 36.5 105 23 133/65 (87) 100 Nasal Cannula 3.0 09/23/16 19:28 102 20 98 Nasal Cannula 3.0 09/23/16 16:00 Nasal Cannula 3.0 09/23/16 15:44 36.9 109 22 135/76 (95) 98 Nasal Cannula 3.0 09/23/16 15:38 99 20 97 Nasal Cannula 3.0 Laboratory Results: Last 24 Hours Test 09/23/16 16:04 09/23/16 20:16 09/24/16 06:51 09/24/16 11:26 Bedside Glucose 249 mg/dl 155 mg/dl 124 mg/dl 125 mg/dl
[2016-09-24] MEDS: RANITIDINE HCL 150 MG TAB PO SCH (21:01)
[2016-09-24] MEDS: AMITRIPTYLINE HCL 10 MG TAB PO SCH (21:01)
[2016-09-24] MEDS: MONTELUKAST SOD 10 MG TAB PO SCH (21:01)
[2016-09-24] MEDS: ZOLPIDEM TARTRATE 5 MG TAB PO PRN (21:11)
[2016-09-25 03:45] VITALS: BP 147/83; PULSE 88; TEMP 36.7; O2SAT 100
[2016-09-25 07:52] VITALS: PULSE 90; TEMP 36.6; O2SAT 100
[2016-09-25] MEDS: IPRATROPIUM BROMIDE/ALBUTEROL respimat INH INH SCH ×2 (08:16→12:49)
[2016-09-25] MEDS: GABAPENTIN 100 MG CAP PO SCH ×2 (08:17→14:10)
[2016-09-25] MEDS: AMLODIPINE BESYLATE 5 MG TAB PO SCH (08:18)
[2016-09-25] MEDS: ATORVASTATIN 10 MG TAB PO SCH (08:18)
[2016-09-25] MEDS: PANTOprazole SOD 40 MG TAB PO SCH (08:19)
[2016-09-25] MEDS: ASPIRIN 81 MG ECTAB PO SCH (08:19)
[2016-09-25] MEDS: FUROSEMIDE 20 MG TAB PO SCH (08:20)
[2016-09-25] MEDS: PRAMIPEXOLE DIHYDROCHLORIDE 0.5 MG TAB PO SCH (08:20)
[2016-09-25] MEDS: BENZONATATE 100MG CAP PO PRN (08:20)
[2016-09-25] MEDS: ENOXAPARIN 40 MG/0.4 ML SYR SC SCH (08:21)
[2016-09-25] MEDS: FLUTICASONE PROPIONATE NA SPR 16 GM BTL NAE SCH (08:22)
[2016-09-25] MEDS: INSULIN GLARGINE SOLOSTAR 100 UNITS/ML 3 ML PEN SC SCH (08:38)
[2016-09-25] MEDS: INSULIN ASPART 100 UNITS/ML 3 ML PEN SC SCH ×2 (08:38→12:49)
[2016-09-25 11:42] VITALS: BP 116/68; PULSE 91; TEMP 36.9; O2SAT 96
--- NOTE | 2016-09-25 13:01 | Pulmonology Progress Note ---
Pulmonary Progress Note Date of Service Sep 25, 2016. Attending Dr. Solis Subjective Patient is doing well the last 24 hours and states she is back to her baseline respiratory status Objective Patient is doing well she shows no signs of increased respiratory effort: Peak flow meter during my evaluation: 250 Peak flow meter one hour prior via the patient's recall: 300 Peak flow meter documented this a.m. 200 VS: I/Os: +2.4Total: L 24hrs: +50cc SaO2: 96-100% FiO2: 3L RR: 18-20 GEN: Alert, awake and comfortable RESP: Mild expiratory wheezing but showing no signs of increased work of breathing CARD: S1-S2 regular rate and rhythm no murmurs rubs or gallops ABD: Positive bowel sounds soft non-tender Medications #1 Combivent one puff 4 times per day #2 singular 10 mg daily at bedtime #3 Lovenox 40 mg subcutaneous daily #4 Flonase nasal spray 2 puffs twice daily #5 Protonix 40 mg by mouth daily #6 prednisone 60 mg daily #7 Xopenex 0.60 mg every 2 hours when necessary shortness of breath Assessment & Plan 61-year-old female admitted with asthma exacerbation: #1 Asthma Exacerbation: Patient is back to her baseline respiratory status and I believe can be discharged at this time. At this time I believe the patient could be discharged on prednisone with a slow 2 week taper. She should also resume her Combivent one puff 4 times a day, Singulair 10 mg daily, Flonase 2 puffs twice daily, Protonix and newly introduced medication Utibron one capsule twice a day. #2 Follow-up: The patient should follow up with pulmonary provider Trista Ireland within the 2-3 weeks after discharge. Data Medications: Current Inpatient Medications Medications (Trade) Dose Ordered Sig/Allison Route Start Time Stop Time Status Last Admin Dose Admin Enoxaparin Sodium (Lovenox Inj) 40 mg DAILY SC 09/22/16 09:00 10/22/16 08:59 09/25/16 08:21 40 MG Acetaminophen (Tylenol Tab) 650 mg Q4H PRN PO 09/22/16 04:00 10/22/16 03:59 Ondansetron HCl (Zofran Inj) 4 mg Q6H PRN IV 09/22/16 04:00 10/22/16 03:59 Amitriptyline HCl (Elavil Tab) 10 mg HS PO 09/22/16 21:00 10/22/16 20:59 09/24/16 21:01 10 MG Aspirin (Ecotrin Tab) 81 mg DAILY PO 09/22/16 09:00 10/22/16 08:59 09/25/16 08:19 81 MG Atorvastatin Calcium (Lipitor Tab) 10 mg QAM PO 09/22/16 09:00 10/22/16 08:59 09/25/16 08:18 10 MG Benzonatate (Tessalon Perles Cap) 100 mg TID PRN PO 09/22/16 05:00 10/22/16 04:59 09/25/16 08:20 100 MG Cyclobenzaprine HCl (Flexeril Tab) 10 mg BID PRN PO 09/22/16 05:00 10/22/16 04:59 Fluticasone Propionate (Flonase Nasal [place]) 2 sprays BID LIDYA 09/22/16 09:00 10/22/16 08:59 09/24/16 21:01 2 SPRAYS Gabapentin (Neurontin Cap) 100 mg TID PO 09/22/16 09:00 10/22/16 08:59 09/25/16 08:17 100 MG Acetaminophen/ Hydrocodone Bitart ([place] 5/325 Tab) 1 tab Q8 PRN PO 09/22/16 05:00 10/06/16 04:59 Montelukast Sodium (Singulair Tab) 10 mg HS PO 09/22/16 21:00 10/22/16 20:59 09/24/16 21:01 10 MG Pantoprazole Sodium (Protonix Tab) 40 mg QAM PO 09/22/16 09:00 10/22/16 08:59 09/25/16 08:19 40 MG Pramipexole Dihydrochloride (miraPEX TAB) 0.5 mg BID PO 09/22/16 09:00 10/22/16 08:59 09/25/16 08:20 0.5 MG Ranitidine HCl (zANTac TAB) 300 mg HS PO 09/22/16 21:00 10/22/16 20:59 09/24/16 21:01 300 MG Zolpidem Tartrate (Ambien Tab) 5 mg HS PRN PO 09/22/16 05:00 8/26/17 04:59 09/24/16 21:11 5 MG Insulin Aspart (novoLOG ASPART) SLIDING SCALE G... ACHS SC 09/22/16 07:00 10/22/16 06:59 09/25/16 12:49 3 UNITS Insulin Glargine (Lantus Solostar Pen) 6 units BID SC 09/22/16 09:00 10/22/16 08:59 09/24/16 21:05 6 UNITS Amlodipine Besylate (Norvasc Tab) 5 mg QAM PO 09/24/16 09:00 10/24/16 08:59 09/25/16 08:18 5 MG Furosemide (Lasix Tab) 20 mg QAM PO 09/24/16 09:00 10/24/16 08:59 09/25/16 08:20 20 MG Albuterol/ Ipratropium (Combivent Respimat Inh) 1 puffs QID INH 09/24/16 13:00 10/24/16 12:59 09/25/16 12:49 1 PUFFS Prednisone (PredniSONE TAB) 60 mg DAILY PO 09/25/16 09:00 10/25/16 08:59 09/25/16 08:19 60 MG Vital Signs: Date Time Temp Pulse Resp B/P (MAP) Pulse Ox O2 Delivery O2 Flow Rate FiO2 09/25/16 11:42 36.9 91 18 116/68 (84) 96 Room Air 09/25/16 08:00 Nasal Cannula 3.0 09/25/16 07:52 36.6 90 18 100 3.0 09/25/16 04:00 Nasal Cannula 3.0 09/25/16 03:45 36.7 88 20 147/83 (104) 100 Nasal Cannula 3.0 09/25/16 00:00 Nasal Cannula 3.0 09/24/16 23:29 36.6 91 22 149/70 (96) 100 Nasal Cannula 3.0 09/24/16 20:05 36.7 104 21 143/85 (104) 100 Room Air 09/24/16 20:00 Nasal Cannula 3.0 09/24/16 15:45 Nasal Cannula 3.0 09/24/16 15:08 37.0 105 21 137/71 (93) 94 Room Air Laboratory Results: Last 24 Hours Test 09/24/16 16:11 09/24/16 20:27 09/25/16 06:46 09/25/16 11:21 Bedside Glucose 182 mg/dl 251 mg/dl 92 mg/dl 122 mg/dl
--- NOTE | 2016-09-25 14:40 | Progress Note ---
Medicine Progress Note Date & Time of Visit: Sep 25, 2016 at 14:38. Subjective patient seen resting in bed, comfortable in good spirits states she feels better overall denies dyspnea, even after walking denies chest pain, cough no other symptoms states she is ready and would like to be discharged today Objective Last 8 Hrs Date Time Temp Pulse Resp B/P (MAP) Pulse Ox O2 Delivery O2 Flow Rate FiO2 09/25/16 12:00 Nasal Cannula 3.0 09/25/16 11:42 36.9 91 18 116/68 (84) 96 Room Air 09/25/16 08:00 Nasal Cannula 3.0 09/25/16 07:52 36.6 90 18 100 3.0 Physical Exam: General- oriented x 3, not in distress, speaks in sentences with no effort Neck- no JVD Lungs- intermittent, mild wheeze bilaterally, no rales Heart- regular rhythm; no murmur, normal rate Abdomen- normal bowel sounds, soft, nontender Extremities- no pretibial edema, no calf tenderness Neuro- alert, oriented x 3; no gross focal deficits Skin- warm & dry Laboratory Results: Last 24 Hours Test 09/24/16 16:11 09/24/16 20:27 09/25/16 06:46 09/25/16 11:21 Bedside Glucose 182 mg/dl 251 mg/dl 92 mg/dl 122 mg/dl Assessment & Plan ACUTE HYPOXIC + HYPERCAPNIC RESPIRATORY FAILURE SECONDARY TO COPD EXACERBATION POSSIBLE COMPONENT OF DIASTOLIC CHF - off bipap now on 3 liters via NC - CXR: no pneumonia speech therapy eval: no aspiration, only GERD - placed on Solumedrol, Nebs Lasix 20mg po daily Protonix, Ranitidine - clinically improved weaned off oxygen evaluated by Pulmonary Dr. Solis - discharge on: Prednisone taper x 2 weeks Combivent QID Utibron BID Singulair daily Fluticasopne daily Lasix 20mg po daily advised to elevated head of bed when sleeping, no meals 2 hours before going to bed ff up with PCP in 1 week ff up with Pulmonary in 2-3 weeks HOARSENESS Hoarse since intubation several months ago. Has outpatient appt with ENT. HYPERTENSION changed Losartan to Amlodipine as Losartan may be contributing to Asthma Flare BP stable monitor GERD Continue PPI, Ranitidine DM TYPE 2 continue usual oral agents VTE PROPHYLAXIS Moderate risk for VTE. SQ enoxaparin given RESUSCITATION STATUS Full code. DISPOSITION d/c home ff up with Dr. Martina Jay in 1 week Pulmonary Medicine follow-up with [facility] in 1-2 weeks . VTE Prophylaxis Given or contraindicated: Enoxaparin (Lovenox)SQ Current Inpatient Medications: Current Inpatient Medications Medications (Trade) Dose Ordered Sig/Allison Route Start Time Stop Time Status Last Admin Dose Admin Enoxaparin Sodium (Lovenox Inj) 40 mg DAILY SC 09/22/16 09:00 10/22/16 08:59 09/25/16 08:21 40 MG Acetaminophen (Tylenol Tab) 650 mg Q4H PRN PO 09/22/16 04:00 10/22/16 03:59 Ondansetron HCl (Zofran Inj) 4 mg Q6H PRN IV 09/22/16 04:00 10/22/16 03:59 Amitriptyline HCl (Elavil Tab) 10 mg HS PO 09/22/16 21:00 10/22/16 20:59 09/24/16 21:01 10 MG Aspirin (Ecotrin Tab) 81 mg DAILY PO 09/22/16 09:00 10/22/16 08:59 09/25/16 08:19 81 MG Atorvastatin Calcium (Lipitor Tab) 10 mg QAM PO 09/22/16 09:00 10/22/16 08:59 09/25/16 08:18 10 MG Benzonatate (Tessalon Perles Cap) 100 mg TID PRN PO 09/22/16 05:00 10/22/16 04:59 09/25/16 08:20 100 MG Cyclobenzaprine HCl (Flexeril Tab) 10 mg BID PRN PO 09/22/16 05:00 10/22/16 04:59 Fluticasone Propionate (Flonase Nasal [place]) 2 sprays BID LIDYA 09/22/16 09:00 10/22/16 08:59 09/24/16 21:01 2 SPRAYS Gabapentin (Neurontin Cap) 100 mg TID PO 09/22/16 09:00 10/22/16 08:59 09/25/16 14:10 100 MG Acetaminophen/ Hydrocodone Bitart ([place] 5/325 Tab) 1 tab Q8 PRN PO 09/22/16 05:00 10/06/16 04:59 Montelukast Sodium (Singulair Tab) 10 mg HS PO 09/22/16 21:00 10/22/16 20:59 09/24/16 21:01 10 MG Pantoprazole Sodium (Protonix Tab) 40 mg QAM PO 09/22/16 09:00 10/22/16 08:59 09/25/16 08:19 40 MG Pramipexole Dihydrochloride (miraPEX TAB) 0.5 mg BID PO 09/22/16 09:00 10/22/16 08:59 09/25/16 08:20 0.5 MG Ranitidine HCl (zANTac TAB) 300 mg HS PO 09/22/16 21:00 10/22/16 20:59 09/24/16 21:01 300 MG Zolpidem Tartrate (Ambien Tab) 5 mg HS PRN PO 09/22/16 05:00 10/22/16 04:59 09/24/16 21:11 5 MG Insulin Aspart (novoLOG ASPART) SLIDING SCALE G... ACHS SC 09/22/16 07:00 10/22/16 06:59 09/25/16 12:49 3 UNITS Insulin Glargine (Lantus Solostar Pen) 6 units BID SC 09/22/16 09:00 10/22/16 08:59 09/24/16 21:05 6 UNITS Amlodipine Besylate (Norvasc Tab) 5 mg QAM PO 09/24/16 09:00 10/24/16 08:59 09/25/16 08:18 5 MG Furosemide (Lasix Tab) 20 mg QAM PO 09/24/16 09:00 10/24/16 08:59 09/25/16 08:20 20 MG Albuterol/ Ipratropium (Combivent Respimat Inh) 1 puffs QID INH 09/24/16 13:00 10/24/16 12:59 09/25/16 12:49 1 PUFFS Prednisone (PredniSONE TAB) 60 mg DAILY PO 09/25/16 09:00 10/25/16 08:59 09/25/16 08:19 60 MG
[2016-09-25] MEDS ORDERED: IPRA1AER2 INH (14:46)
[2016-09-25] MEDS ORDERED: UTIBRON INH (14:46)
[2016-09-25] MEDS ORDERED: PRED10TA PO (14:46)
--- NOTE | 2016-09-26 17:54 | Discharge Summary ---
Discharge Summary Date of Service Sep 26, 2016. Discharge Summary Admission Date: Sep 22, 2016 at 04:00 Discharge Date: Sep 25, 2016 Discharge Disposition: Home Principal Diagnosis: ACUTE HYPOXIC + HYPERCAPNIC RESPIRATORY FAILURE SECONDARY TO COPD EXACERBATION POSSIBLE COMPONENT OF DIASTOLIC CHF Secondary Diagnoses/Problems: Please refer to hospital course below. Procedures: CHEST ONE VIEW PORTABLE CLINICAL HISTORY: sob dyspnea COMPARISON STUDY: 09/08/2016 FINDINGS: Mild interval increase in cardiac size. Moderate increase in pulmonary vasculature. Mild bibasilar atelectasis. Trace pleural fluid right lateral gastric angle. IMPRESSION: Developing congestive failure Consultations: Pulmonary Dr. Solis Pending Studies/Follow-Up: Please refer to hospital course below. Medication Reconciliation New Medications: Prednisone Tab (Prednisone) 10 Mg Tab 1 TAB PO UD for 14 Days, #43 TAB take 6 tabs po daily x 2 days, then take 5 tabs po daily x 2 days, then take 4 tabs po daily x 2 days, then take 3 tabs po daily x 2 days, then take 2 tabs po daily x 2 days, then take 1 tab po daily x 2 days, then take 1/2 tabs po daily x 2 days, then stop [Utibron] () 1 CAP INH BID for 30 Days Amlodipine Besylate (Amlodipine Besylate) 5 Mg Tab 5 MG PO QAM for 30 Days, #30 TAB 2 Refills Furosemide (Furosemide) 20 Mg Tab 20 MG PO QAM for 30 Days, #30 TAB 1 Refill Ipratropium-Albuterol (Combivent Respimat) 1 Aer Aer 1 PUFFS INH QID for 30 Days, #1 INHA 1 Refill Changed Medications: Home O2 Therapy (Oxygen) Gas 3 LITERS NA CONTINOUS for 10 Days (Changed from: 2 LITERS; HS; Removed Instructions) Continued Medications: Acetaminophen Tab (Tylenol) 325 Mg Tab 650 MG PO Q6 PRN for Pain, TAB Albuterol Hfa (Ventolin Hfa) 200 Puffs/15199 Mcg Aers 2 PUFFS INH Q4 PRN for Shortness of Breath for 30 Days, #1 INHALER 2 Refills ( This prescription has been renewed) Amitriptyline HCl (Amitriptyline HCl) 10 Mg Tab 10 MG PO HS Aspirin (Aspirin Chewable) 81 Mg Chew 81 MG PO DAILY, TAB Atorvastatin (Lipitor) 10 Mg Tab 10 MG PO QAM Benzonatate (Tessalon Perles) 100 Mg Cap 1-2 CAP PO TID PRN for Cough for 5 Days, #60 CAP Cyanocobalamin (Vitamin B12) 1,000 Mcg Tab 1000 MCG PO DAILY Cyclobenzaprine Hcl (Flexeril) 10 Mg Tab 10 MG PO BID PRN for Muscle Spasms Ferrous Sulfate (Kp Ferrous Sulfate) 325 Mg Tab 1 TAB PO BID for 30 Days, #60 TAB 3 Refills Fluticasone Propionate (Fluticasone Propionate) 50 Mcg/Act Spr 2 SPRAY NA BID Gabapentin (Neurontin) 100 Mg Cap 100 MG PO TID Glimepiride (Amaryl) 1 Mg Tab 0.5 TAB PO QAM PRN for while on prednisone, 5 Refills Hydrocodone/Acetaminophen 5MG/325MG ([place] 5MG/325MG) Tab 1 TABLET PO Q8 PRN for mod pain, TAB may take 1 extra for pain Ipratropium-Albuterol (Duoneb) 3 Ml Nebu 1 TREATMENT INH Q4H PRN for SOB/Wheezing, INHA Metformin Hcl (Glucophage) 1,000 Mg Tab 1000 MG PO BID Montelukast Sodium (Singulair) 10 Mg Tab 10 MG PO QAM Pantoprazole Sodium (Protonix) 40 Mg Tab 40 MG PO QAM Potassium Chloride (Potassium Chloride Er) 10 Meq Tab 1 TAB PO DAILY for 30 Days, #30 TABS 1 Refill (This prescription has been renewed) Pramipexole Dihydrochloride (Mirapex) 0.5 Mg Tab 0.5 MG PO BID Pramipexole Dihydrochloride (Mirapex Er) 1.5 Mg Tab 1-2 TABS PO HS PRN for RLS Ranitidine Hcl (Zantac) 300 Mg Tab 300 MG PO HS Tiotropium [place] (Spiriva Handihaler) 30 Puff/540 Mcg Aerp 1 CAP INH DAILY, INHALER Zolpidem Tartrate (Zolpidem Tartrate) 5 Mg Tab 5 MG PO HS PRN for Insomnia, TAB Discontinued Medications: Furosemide (Lasix) 20 Mg Tab 20 MG PO QAM PRN for fluid and wt gain Ipratropium-Albuterol (Combivent Respimat) 1 Aer Aer 1 PUFFS INH TID PRN for SOB/Wheezing for 30 Days, #1 INH 1 Refill Losartan Potassium (Cozaar) 25 Mg Tab 25 MG PO QAM Admission Information HPI (per Admitting provider): 61 YO female followed by Dr. Martina Jay for Internal Medicine and [facility] Pulmonary Medicine. History of obstructive lung disease, hypertension, DM type 2, and other problems noted below. On intermittent steroid therapy for exacerbations of asthma / COPD. On home O2 HS for nocturnal hypoxia. Admitted to [facility] in January 2016 for respiratory failure and required intubation. Had prolonged ICU stay. Readmitted 09/08/16 - 09/10/16 with exacerbation due to bibasilar pneumonia. Did well after discharged. Completed course of antibiotic therapy and steroids. [place] well yesterday throughout the day. No fever, cough, wheezing. Awoke from sleep around midnight with acute onset of wheezing and SOB. No fever. No significant cough. Tried Duonebs without much improvement. EMS summoned and pt was transported to ED. BiPAP applied in ED for ongoing respiratory distress. Received additional nebs in ED. Feeling better by time of my assessment. . 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 Solis - discharge on: Prednisone taper x 2 weeks Combivent QID Utibron BID Singulair daily Fluticasopne daily Lasix 20mg po daily advised to elevate head of bed when sleeping, no meals 2 hours before going to bed ff up with PCP in 1 week ff up with Pulmonary in 2-3 weeks [place] Hoarse since intubation several months ago. Has outpatient appt with ENT. HYPERTENSION changed Losartan to Amlodipine as Losartan may be contributing to Asthma Flare BP stable monitor GERD Continue PPI, Ranitidine DM TYPE 2 continue usual oral agents VTE PROPHYLAXIS Moderate risk for VTE. SQ enoxaparin given RESUSCITATION STATUS Full code. DISPOSITION d/c home ff up with Dr. Martina Jay in 1 week Pulmonary Medicine follow-up with [facility] in 1-2 weeks . Total time spent on discharge = 40 minutes This includes examination of the patient, discharge planning, medication reconciliation, and communication with other providers. Discharge Instructions Discharge Instructions Date of Service Sep 24, 2016. Admission Reason for Admission: Acute Exacerbation Of Copd With Asthma Discharge Discharge Diagnosis / Problem: Acute COPD Exacerbation Discharge Goals Goal(s): Diagnostic testing, Therapeutic intervention Activity Recommendations Activity Limitations: as noted below (no heavy exertion until re-evaluated by Primary Care Physician) . Instructions / Follow-Up Instructions / Follow-Up PLEASE REVIEW YOUR NEW MEDICATION LIST AND FOLLOW INSTRUCTIONS CAREFULLY. CALL PRIMARY CARE PHYSICIAN OR RETURN TO ER IMMEDIATELY IF WITH RECURRENCE OF SYMPTOMS, INCREASING SHORTNESS OF BREATH, COUGH, FEVER/CHILLS, LEG SWELLING. FOLLOW UP WITH PRIMARY CARE PHYSICIAN IN 3-5 DAYS. (CLINIC WILL CALL YOU FOR THE APPOINTMENT). 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 Current Hospital Diet Patient's current hospital diet: Diabetes Type 2 Diet Discharge Diet Recommended Diet: AHA Diet (Heart Healthy), Diabetes Type 2 Diet Fluid Restriction: 2000 ml (8 cups) Pending Studies Studies pending at discharge: no Laboratory Results Hemoglobin A1c Test 09/23/16 07:01 Range/Units Estimated Average Glucose 151 mg/dl Hemoglobin A1c 6.9 H 4.5-5.6 % Medical Emergencies . Who to Call and When: Medical Emergencies: If at any time you feel your situation is an emergency, please call 911 immediately. . Non-Emergent Contact Non-Emergency issues call your: Primary Care Provider, Care Assistant Call Non-Emergent contact if: you have a fever, you have any medication questions . . "Provider Documentation" section prepared by Rene Murillo. . VTE Core Measure Inpt VTE Proph given/why not?: Enoxaparin (Lovenox)SQ
[2016-10-13] MEDS ORDERED: HYDR-5688 PO (02:05)
[2016-10-13] MEDS ORDERED: BENZ100C84 PO (04:25)
[2016-10-13] MEDS ORDERED: AMT10 PO (04:29)
[2016-10-13] MEDS ORDERED: IPRASOL4 NEB (04:32)
[2016-10-13] MEDS ORDERED: FLNIN NAE (04:47)
[2016-10-13] MEDS ORDERED: ACET325T96 PO (04:47)
[2016-10-13] MEDS ORDERED: ASPCH81X PO (04:47)
[2016-10-13] MEDS ORDERED: AMB5 PO (04:47)
[2016-10-13] MEDS ORDERED: RANI300T2 PO (08:33)
[2016-10-13] MEDS ORDERED: MONT1TAB3 PO (08:33)
[2016-10-13] MEDS ORDERED: PRAM1TAB47 PO (08:33)
[2016-10-13] MEDS ORDERED: PANT40TA PO (08:33)
[2016-10-13] MEDS ORDERED: GABA-112 PO (08:33)
[2016-10-13] MEDS ORDERED: CYCL10TA6 PO (08:33)
[2016-10-13] MEDS ORDERED: METF1000 PO (08:33)
[2016-10-13] MEDS ORDERED: ATOR10TA88 PO (08:33)
[2016-11-17] MEDS ORDERED: FERR1TAB13 PO (07:01)
[2016-11-17] MEDS ORDERED: ASPI325T45 PO (07:01)
[2016-11-17] MEDS ORDERED: DICL1GEL12 (07:01)
[2016-11-17] MEDS ORDERED: FLUC100T4 PO (07:01)
[2016-11-17] MEDS ORDERED: PRAM1TAB52 PO (07:01)
== END 2016-09-25 16:00 | disposition home or self-care (01) | DRG 189 ==
LOC: EDBD 01:24 → C.EDB 01:26 → C.2T 04:00 → ENRESERV 04:08
PROVIDERS: ADMIT Hospitalist; ATTEND Internal Medicine
DX: J96.02 Acute respiratory failure with hypercapnia (principal); J44.1 Chronic obstructive pulmonary disease with (acute) exacerbation; I50.30 Unspecified diastolic (congestive) heart failure; Z68.41 Body mass index [BMI] 40.0-44.9, adult; J96.01 Acute respiratory failure with hypoxia; I11.0 Hypertensive heart disease with heart failure; E11.9 Type 2 diabetes mellitus without complications; K21.9 Gastro-esophageal reflux disease without esophagitis; K44.9 Diaphragmatic hernia without obstruction or gangrene; F32.9 Major depressive disorder, single episode, unspecified; G47.30 Sleep apnea, unspecified; E66.01 Morbid (severe) obesity due to excess calories; R49.0 Dysphonia; E78.5 Hyperlipidemia, unspecified; M19.90 Unspecified osteoarthritis, unspecified site; G25.81 Restless legs syndrome; M50.322 Other cervical disc degeneration at C5-C6 level; D64.9 Anemia, unspecified; G56.00 Carpal tunnel syndrome, unspecified upper limb; Z87.891 Personal history of nicotine dependence; Z79.899 Other long term (current) drug therapy; Z79.82 Long term (current) use of aspirin; Z79.84 Long term (current) use of oral hypoglycemic drugs; Z99.81 Dependence on supplemental oxygen; Z79.891 Long term (current) use of opiate analgesic; Z79.51 Long term (current) use of inhaled steroids

== ENCOUNTER 2016-10-13 13:49 | Emergency (ER) | payer OTHER ==
[~2016-10-13] VITALS: Ht 160 cm; Wt 111.7 kg
[~2016-10-13 13:49] MED LIST changes: +ACET325T96 PO; +AMB5 PO; +AMT10 PO; +ASPCH81X PO; +ATOR10TA88 PO; +BENZ100C84 PO; -CPC PO; +CYCL10TA6 PO; +FERR1TAB13 PO; +FLNIN NAE; -FLUT1INH7 PO; -FRRS300 PO; -FURO-85 PO; +GABA-112 PO; +IPRASOL4 NEB; -LEVO-18 PO; -LOSA1TAB PO; +LSX20 PO; +METF1000 PO; +MONT1TAB3 PO; +NRV5 PO; +PANT40TA PO; +PRAM1TAB47 PO; +RANI300T2 PO; +UTIBRON INH
[2016-10-13 14:06] VITALS: Ht 160 cm; Wt 111.7 kg
[2016-10-13] MEDS ORDERED: MAGNESIUM SULFATE 1GM / D5W 1 GM BAG IV STA (14:10)
[2016-10-13] MEDS ORDERED: METHYLPREDNISOLONE 125 MG VIAL IV STA (14:10)
--- NOTE | 2016-10-13 14:13 | EMERGENCY ROOM VISIT NOTE ---
History Report prepared by Hiral: Katelin Polk Under the Supervision of: Dr. David Watters M.D. First contact with patient: 14:05 Chief Complaint: SHORTNESS OF BREATH Stated Complaint: SHORTNESS OF BREATH History of Present Illness The patient is a 61 year old female who presents to the Emergency Room with complaints of sudden shortness of breath beginning 2 hours prior to arrival. The patient states that she did not take her morning medications today and that she is on Prednisone. She also states that she is on 2L of Oxygen at home. The patient denies having other symptoms. Source of History: patient Onset: 2 hours prior to arrival Position: other Quality: other (shortness of breath ) Timing: other (sudden ) Associated Symptoms: No abdominal pain Review of Systems See HPI for pertinent positives & negatives. A total of 10 systems reviewed and were otherwise negative. Past Medical & Surgical Medical Problems: (1) Anemia (2) Asthma (3) Asthma, Unspecified (4) Carpal tunnel syndrome (5) COPD (chronic obstructive pulmonary disease) (6) Depression (7) Diabetes mellitus, type 2 (8) Esophageal Reflux (9) GERD (gastroesophageal reflux disease) (10) Hiatal hernia (11) History of cervical cancer (12) Hyperlipidemia (13) Hypertension (14) Hypertension (15) Intervertebral disc disorder (16) Nocturnal hypoxia (17) Obstructive Chronic Bronchitis With Acute Bronchitis (18) Osteoarthritis (19) Reflux esophagitis (20) Restless leg syndrome (21) Restless Legs Syndrome (22) Rheumatoid Arthritis (23) Tobacco Use Disorder Surgical Problems: (1) H/O colonoscopy (2) History of esophagogastroduodenoscopy (EGD) Family History Diabetes mellitus FH: heart disease FH: lung disease FHx: cancer Hypertension Social History Smoking Status: Former Smoker Alcohol Use: none Drug Use: none Marital Status: single Housing Status: lives alone Occupation Status: disabled Current/Historical Medications Scheduled Amitriptyline HCl (Amitriptyline HCl), 10 MG PO HS Amlodipine Besylate (Amlodipine Besylate), 5 MG PO DAILY Aspirin (Aspirin Chewable), 81 MG PO DAILY Atorvastatin (Lipitor), 10 MG PO QAM Cyanocobalamin (Vitamin B12), 1,000 MCG PO DAILY Fluticasone Propionate (Fluticasone Propionate), 2 SPRAYS LIDYA BID Furosemide (Lasix), 20 MG PO QAM Gabapentin (Neurontin), 100 MG PO TID Home O2 Therapy (Oxygen), 3 LITERS NA UD Ipratropium-Albuterol (Combivent Respimat), 1 PUFF INH QID Magnesium Oxide (Mag-Ox), 400 MG PO DAILY Metformin Hcl (Glucophage), 1,000 MG PO BID Montelukast Sodium (Singulair), 10 MG PO QAM Pantoprazole Sodium (Protonix), 40 MG PO QAM Potassium Chloride (Potassium Chloride Er), 10 MEQ PO DAILY Pramipexole Dihydrochloride (Mirapex), 0.5 MG PO TID Prednisone (Prednisone Tab), 0 PO DAILY Ranitidine Hcl (Zantac), 300 MG PO HS [Utibron], 1 CAP INH BID Scheduled PRN Acetaminophen Tab (Tylenol), 325-650 MG PO Q6H PRN for Pain or Fever Albuterol Hfa (Ventolin Hfa), 2 PUFFS INH Q4H PRN for Wheezing Aloe-Sodium Chloride ([place] Saline Nasal Gel), 1 APPLN NA BID PRN for Irritation Azithromycin (Zithromax), 250 MG PO UD PRN for Rescue Kit Benzonatate (Tessalon Perles), 100-200 MG PO TID PRN for Cough Cyclobenzaprine Hcl (Flexeril), 10 MG PO BID PRN for Muscle Spasm Glimepiride (Amaryl), 0.5 MG PO QAM PRN for While on Prednisone Hydrocodone/Acetaminophen 5MG/325MG ([place] 5MG/325MG), 1 TABLET PO Q8 PRN for Moderate Pain Ipratropium-Albuterol (Duoneb), 1 VIAL NEB Q4H PRN for SOB/Wheezing Prednisone Tab (Prednisone), 10 MG PO UD PRN for Rescue Kit Zolpidem Tartrate (Zolpidem Tartrate), 5 MG PO HS PRN for Sleep Allergies Coded Allergies: No Known Allergies (Verified , 09/22/16) Physical Exam Vital Signs Date Time Temp Pulse Resp B/P (MAP) Pulse Ox O2 Delivery O2 Flow Rate FiO2 10/13/16 17:03 36.8 110 22 126/77 98 10/13/16 16:20 110 22 126/77 98 Nasal Cannula 2.0 10/13/16 14:15 98 Nasal Cannula 2.0 10/13/16 14:06 36.8 126 20 154/111 98 Nasal Cannula 2.0 10/13/16 14:06 Nasal Cannula 2.0 98 10/13/16 14:06 98 Nasal Cannula 2.0 10/13/16 14:04 132 Physical Exam GENERAL: Patient is a healthy-appearing well-nourished female HEAD: Normocephalic atraumatic EYES: Ocular movements intact pupils equal and react to light OROPHARYNX mucous membranes are moist no exudates present no erythema or edema present NECK: Supple no nuchal rigidity CHEST: Good equal expansion LUNGS: Bilateral wheezing, difficulty breathing CARDIAC: Normal S1 and S2 ABDOMEN: Soft nontender no guarding BACK: No CVA tenderness EXTREMITIES: No pain upon palpation normal muscle strength in all groups no clubbing cyanosis or edema NEURO: Patient is following commands and answering questions appropriately. Alert and oriented x3 Cranial Nerves 2-12 grossly intact Medical Decision & Procedures ER Provider Diagnostic Interpretation: CHEST ONE VIEW PORTABLE CLINICAL HISTORY: Wheezing, shortness of breath COMPARISON STUDY: 09/22/2016 FINDINGS: There is pulmonary emphysema. The heart is normal in size. There is no failure. There is no focal pulmonary consolidation. There are no pleural effusions.[ IMPRESSION: Emphysema. No acute findings. Electronically signed by: Byron Sauceda M.D. 10/13/2016 2:49 PM Dictated Date/Time: 10/13/2016 2:49 PM Laboratory Results 10/13/16 15:37 Red Blood Count 3.74, Mean Corpuscular Volume 90.1, Mean Corpuscular Hemoglobin 26.7, Mean Corpuscular Hemoglobin Concent 29.7, Mean Platelet Volume 9.0, Neutrophils (%) (Auto) 78.1, Lymphocytes (%) (Auto) 16.1, Monocytes (%) (Auto) 4.0, Eosinophils (%) (Auto) 1.3, Basophils (%) (Auto) 0.1, Neutrophils # (Auto) 5.90, Lymphocytes # (Auto) 1.22, Monocytes # (Auto) 0.30, Eosinophils # (Auto) 0.10, Basophils # (Auto) 0.01 10/13/16 15:37 Test 10/13/16 15:37 10/13/16 18:00 White Blood Count 7.56 K/uL (4.8-10.8) Red Blood Count 3.74 M/uL (4.2-5.4) Hemoglobin 10.0 g/dL (12.0-16.0) Hematocrit 33.7 % (37-47) Mean Corpuscular Volume 90.1 fL (80-100) Mean Corpuscular Hemoglobin 26.7 pg (25-34) Mean Corpuscular Hemoglobin Concent 29.7 g/dl (32-36) Platelet Count 300 K/uL (130-400) Mean Platelet Volume 9.0 fL (7.4-10.4) Neutrophils (%) (Auto) 78.1 % Lymphocytes (%) (Auto) 16.1 % Monocytes (%) (Auto) 4.0 % Eosinophils (%) (Auto) 1.3 % Basophils (%) (Auto) 0.1 % Neutrophils # (Auto) 5.90 K/uL (1.4-6.5) Lymphocytes # (Auto) 1.22 K/uL (1.2-3.4) Monocytes # (Auto) 0.30 K/uL (0.11-0.59) Eosinophils # (Auto) 0.10 K/uL (0-0.5) Basophils # (Auto) 0.01 K/uL (0-0.2) RDW Standard Deviation 52.7 fL (36.4-46.3) RDW Coefficient of Variation 16.2 % (11.5-14.5) Immature Granulocyte % (Auto) 0.4 % Immature Granulocyte # (Auto) 0.03 K/uL (0.00-0.02) Anion Gap 8.0 mmol/L (3-11) Est Creatinine Clear Calc Drug Dose 70.1 ml/min Estimated GFR () 69.9 Estimated GFR (Non- 60.3 BUN/Creatinine Ratio 15.8 (10-20) Calcium Level 8.5 mg/dl (8.5-10.1) Total Bilirubin < 0.1 mg/dl (0.2-1) Aspartate Amino Transf (AST/SGOT) 22 U/L (15-37) Alanine Aminotransferase (ALT/SGPT) 37 U/L (12-78) Alkaline Phosphatase 76 U/L (45-117) Total Creatine Kinase 406 U/L (26-192) Creatine Kinase MB 2.4 ng/ml (0.5-3.6) Creatine Kinase MB Ratio 0.6 (0-3.0) Troponin I < 0.015 ng/ml (0-0.045) Total Protein 6.4 gm/dl (6.4-8.2) Albumin 3.1 gm/dl (3.4-5.0) Globulin 3.3 gm/dl (2.5-4.0) Albumin/Globulin Ratio 0.9 (0.9-2) Beta-Hydroxybutyric Acid 1.03 mg/dL (0.2-2.81) Chemistry Specimen Hemolysis Influenza Type A (RT-PCR) Neg for Influ A (NEG) Influenza Type A Antigen Neg for Influ A (NEG) Influenza Type B Antigen Neg for Influ B (NEG) Influenza Type B (RT-PCR) Neg for Influ B (NEG) Labs reviewed by ED physician. Medications Administered Medications (Trade) Dose Ordered Sig/Allison Route Start Time Stop Time Status Last Admin Dose Admin Albuterol/ Ipratropium (Duoneb) 12 ml ONE ONCE INH 10/13/16 14:15 10/13/16 14:16 DC 10/13/16 14:28 12 ML Magnesium Sulfate (Magnesium Sulfate) 2 gm NOW STAT IV 10/13/16 14:10 10/13/16 14:12 DC 10/13/16 14:28 2 GM ED Course 1409: Past medical records reviewed. The patient was evaluated in room A12B. A complete history and physical examination was performed. 1410: Ordered Magnesium Sulfate 2 gm IV, Methylprednisolone Sodium Succinate 125 mg IV. 1415: Ordered Duoneb 12 ml INH. Medical Decision Differential diagnosis: Etiologies such as infections, reactive airway disease, pneumonia, pneumothorax , COPD, CHF, cardiac ischemia, pulmonary embolism, musculoskeletal, gastrointestinal, as well as others were entertained. This is a 61-year-old female who presents to the emergency department complaining of shortness of breath. The patient has had a complicated course in regards to her emphysema. She is currently on prednisone however she did not take her doses today. She was given 125 mg a slight Medrol by EMS prior to arrival and was given breathing treatments. Upon arrival to the emergency department the patient is wheezing and she was given magnesium along with further breathing treatments. I was going to admit the patient and recommended that she be admitted however the patient is adamantly refusing and wishes to be discharged home. I do feel she is remarkably improved and can safely be discharged home. Patient was in agreement with the treatment plan. Impression Primary Impression: COPD (chronic obstructive pulmonary disease) Scribe Attestation The scribe's documentation has been prepared under my direction and personally reviewed by me in its entirety. I confirm that the note above accurately reflects all work, treatment, procedures, and medical decision making performed by me. Departure Information Dispostion Home / Self-Care Prescriptions Prednisone (Prednisone Tab) 20 Mg Tab 0 PO DAILY, #7 TAB 2 TABS DAILY FOR 2 DAYS, THEN 1 TAB DAILY FOR 2 DAYS, THEN 1/2 TAB DAILY FOR 2 DAYS. Prov: David Watters MD 10/13/16 Referrals Martina Jay M.D. (PCP) Patient Instructions My [facility] Problem Qualifiers Primary Impression: COPD (chronic obstructive pulmonary disease) COPD type: COPD with acute exacerbation Qualified Codes: J44.1 - Chronic obstructive pulmonary disease with (acute) exacerbation
[2016-10-13 14:15] VITALS: O2SAT 98
[2016-10-13] MEDS ORDERED: ALBUT/IPRATROP 3MG/0.5MG NEB 3 ML VIAL INH ONE (14:15)
[2016-10-13] MEDS ORDERED: GLIM1TAB PO (14:22)
--- NOTE | 2016-10-13 14:51 | DIAGNOSTIC IMAGING REPORT ---
CHEST ONE VIEW PORTABLE CLINICAL HISTORY: Wheezing, shortness of breath COMPARISON STUDY: 09/22/2016 FINDINGS: There is pulmonary emphysema. The heart is normal in size. There is no failure. There is no focal pulmonary consolidation. There are no pleural effusions.[ IMPRESSION: Emphysema. No acute findings. Electronically signed by: Byron Sauceda M.D. 10/13/2016 2:49 PM Dictated Date/Time: 10/13/2016 2:49 PM
[2016-10-13 15:49] LABS: BASO % 0.1 %; BASO ABS # 0.01 K/uL (0-0.2); COMPLETE YES; EOS % 1.3 %; HEMATOCRIT 33.7 % (37-47); IG% 0.4 %; LYMPH % 16.1 %; LYMPH ABS # 1.22 K/uL (1.2-3.4); MEAN CELL VOLUME 90.1 fL (80-100); MEAN CORPUSCULAR HEMOGLOBIN 26.7 pg (25-34); MEAN CORPUSCULAR HGB CONC 29.7 g/dl (32-36); NEUT % 78.1 %; PLATELET COUNT 300 K/uL (130-400); RED BLOOD COUNT 3.74 M/uL (4.2-5.4); WHITE BLOOD COUNT 7.56 K/uL (4.8-10.8)
[2016-10-13] MEDS ORDERED: NRV/5 PO (16:00)
[2016-10-13] MEDS ORDERED: FURO-85 PO (16:00)
[2016-10-13] MEDS ORDERED: IPRA1AER2 INH (16:00)
[2016-10-13] MEDS ORDERED: VNTHFA/IN INH (16:00)
[2016-10-13] MEDS ORDERED: ALOEMIS (16:00)
[2016-10-13] MEDS ORDERED: MAGN400T6 PO (16:12)
[2016-10-13] MEDS ORDERED: OXGN (16:12)
[2016-10-13] MEDS ORDERED: POTA-74 PO (16:12)
[2016-10-13] MEDS ORDERED: PRED20TA2 PO (16:18)
[2016-10-13 16:19] LABS: ALB/GLOB RATIO 0.9 (0.9-2); ALKALINE PHOSPHATASE 76 U/L (45-117); ALT/SGPT 37 U/L (12-78); AST/SGOT 22 U/L (15-37); BLOOD UREA NITROGEN 16 mg/dl (7-18); BUN/CREATININE RATIO 15.8 (10-20); CALCIUM 8.5 mg/dl (8.5-10.1); CARBON DIOXIDE 29 mmol/L (21-32); CHLORIDE 97 mmol/L (98-107); CKMB/CK RATIO 0.6 (0-3.0); POTASSIUM 3.5 mmol/L (3.5-5.1); SODIUM 134 mmol/L (136-145)
[2016-10-13 16:20] LABS: GLUCOSE 429 mg/dl (70-99)
[2016-10-13] MEDS ORDERED: UTIBRON INH (16:24)
[2016-10-13] MEDS ORDERED: AZIT250T PO (16:31)
[2016-10-13] MEDS ORDERED: PRED10TA PO (16:31)
[2016-10-13 16:37] LABS: BETA-HYDROXYBUTYRATE 1.03 mg/dL (0.2-2.81)
[2016-10-13 17:03] VITALS: BP 126/77; PULSE 110; TEMP 36.8; O2SAT 98
[2016-10-13 21:12] LABS: INFLUENZA A PCR Neg for Influ A (NEG); INFLUENZA B PCR Neg for Influ B (NEG)
[2016-10-13] MEDS ORDERED: CYAN100020 PO (23:47)
[2016-10-25] MEDS ORDERED: PRED10TA PO (10:49)
[2016-10-25] MEDS ORDERED: AMB5 PO ×3 (10:49→11:07)
[2016-10-25] MEDS ORDERED: SPRIN/30 INH (11:05)
[2016-11-17] MEDS ORDERED: ASPI325T45 PO (07:01)
[2016-11-17] MEDS ORDERED: FERR1TAB13 PO (07:01)
[2016-11-17] MEDS ORDERED: PRAM1TAB52 PO (07:01)
[2016-11-17] MEDS ORDERED: FLUC100T4 PO (07:01)
[2016-11-17] MEDS ORDERED: DICL1GEL12 (07:01)
[2016-11-30] MEDS ORDERED: DXY100 PO (14:28)
[2016-11-30] MEDS ORDERED: PRED10TA PO (14:28)
[2016-11-30] MEDS ORDERED: ASPI325T45 PO (14:38)
[2016-11-30] MEDS ORDERED: SNG10 PO (14:41)
== END 2016-10-13 17:05 | disposition home or self-care (01) ==
LOC: EDBD 13:49 → C.EDA 13:54
DX: J44.1 Chronic obstructive pulmonary disease with (acute) exacerbation (principal); D64.9 Anemia, unspecified; J45.909 Unspecified asthma, uncomplicated; F32.9 Major depressive disorder, single episode, unspecified; E11.9 Type 2 diabetes mellitus without complications; K21.9 Gastro-esophageal reflux disease without esophagitis; Z85.41 Personal history of malignant neoplasm of cervix uteri; M19.90 Unspecified osteoarthritis, unspecified site; G25.81 Restless legs syndrome; M06.9 Rheumatoid arthritis, unspecified; Z83.3 Family history of diabetes mellitus; Z82.49 Family history of ischemic heart disease and other diseases of the circulatory system; Z83.6 Family history of other diseases of the respiratory system; Z80.9 Family history of malignant neoplasm, unspecified; Z87.891 Personal history of nicotine dependence; Z79.82 Long term (current) use of aspirin; Z79.52 Long term (current) use of systemic steroids; Z79.899 Other long term (current) drug therapy

== ENCOUNTER 2016-10-21 11:33 | Inpatient (IN) | payer OTHER ==
[2016-10-21] VITALS (10 sets, daily range): BP systolic 135; BP diastolic 82; PULSE 102–121; TEMP 36.3; O2SAT 98–100; Ht 160 cm; Wt 111.7 kg
[~2016-10-21] VITALS: Ht 160 cm; Wt 111.7 kg
[~2016-10-21 11:33] MED LIST changes: +ALOEMIS; +AZIT250T PO; +CYAN100020 PO; -FERR1TAB13 PO; +FURO-85 PO; +GLIM1TAB PO; -LSX20 PO; +MAGN400T6 PO; +NRV/5 PO; -NRV5 PO; -PRAM1.5T8 PO; +PRED20TA2 PO; -SPRIN/30 INH
[2016-10-21] MEDS ORDERED: MAGNESIUM SULFATE 1GM / D5W 1 GM BAG IV STA (11:40)
[2016-10-21] MEDS ORDERED: ALBUT/IPRATROP 3MG/0.5MG NEB 3 ML VIAL INH STA (11:40)
[2016-10-21] MEDS ORDERED: METHYLPREDNISOLONE 125 MG VIAL IV STA (11:40)
[2016-10-21] MEDS ORDERED: LORAZEPAM 2 MG/ML 1 ML VIAL IV STA (11:46)
--- NOTE | 2016-10-21 11:46 | EMERGENCY ROOM VISIT NOTE ---
History Report prepared by Hiral: Jana Ohara Under the Supervision of: Dr. Navin Humphries M.D. First contact with patient: 11:36 Chief Complaint: RESPIRATORY PROBLEMS Stated Complaint: RESPIRATORY History of Present Illness The patient is a 61 year old female who presents to the Emergency Room with complaints of persistent respiratory distress that began this morning. Per nursing staff, the patient has a history of chronic asthma and records report that the patient has a history of COPD. Nursing staff reports that the patient was evaluated in the emergency department two weeks ago for similar symptoms. Nursing staff reports that the patient became short of breath yesterday and developed an acute episode this morning. Nursing staff reports that when EMS arrived this morning she was in acute respiratory distress. Nursing staff reports that the patient was placed on c-pap. Nursing staff reports that the patient was given 1 albuterol treatment prior to arrival. The patient denies being on any steroids or antibiotics at the present time. The history is limited secondary to the patient's respiratory distress. Source of History: patient, nursing staff History Limited By: other (respiratory distress) Onset: this morning Position: other (global) Quality: other (respiratory distress) Timing: other (persistent) Review of Systems The history and ROS is limited secondary to the patient's respiratory distress. Past Medical & Surgical Medical Problems: (1) Acute respiratory failure (2) Anemia (3) Asthma (4) Asthma, Unspecified (5) Carpal tunnel syndrome (6) COPD (chronic obstructive pulmonary disease) (7) Depression (8) Diabetes mellitus, type 2 (9) Esophageal Reflux (10) GERD (gastroesophageal reflux disease) (11) Hiatal hernia (12) History of cervical cancer (13) Hyperlipidemia (14) Hypertension (15) Hypertension (16) Intervertebral disc disorder (17) Nocturnal hypoxia (18) Obstructive Chronic Bronchitis With Acute Bronchitis (19) Osteoarthritis (20) Reflux esophagitis (21) Restless leg syndrome (22) Restless Legs Syndrome (23) Rheumatoid Arthritis (24) Tobacco Use Disorder Surgical Problems: (1) H/O colonoscopy (2) History of esophagogastroduodenoscopy (EGD) Family History Diabetes mellitus FH: heart disease FH: lung disease FHx: cancer Hypertension Social History Smoking Status: Former Smoker Alcohol Use: none Drug Use: none Marital Status: single Housing Status: lives alone Occupation Status: disabled Current/Historical Medications Scheduled Amitriptyline HCl (Amitriptyline HCl), 10 MG PO HS Amlodipine Besylate (Amlodipine Besylate), 5 MG PO DAILY Aspirin (Aspirin Chewable), 81 MG PO DAILY Atorvastatin (Lipitor), 10 MG PO QAM Cyanocobalamin (Vitamin B12), 1,000 MCG PO DAILY Fluticasone Propionate (Fluticasone Propionate), 2 SPRAYS LIDYA BID Furosemide (Lasix), 20 MG PO QAM Gabapentin (Neurontin), 100 MG PO TID Home O2 Therapy (Oxygen), 3 LITERS NA UD Ipratropium-Albuterol (Combivent Respimat), 1 PUFF INH QID Magnesium Oxide (Mag-Ox), 400 MG PO DAILY Metformin Hcl (Glucophage), 1,000 MG PO BID Montelukast Sodium (Singulair), 10 MG PO QAM Pantoprazole Sodium (Protonix), 40 MG PO QAM Potassium Chloride (Potassium Chloride Er), 10 MEQ PO DAILY Pramipexole Dihydrochloride (Mirapex), 0.5 MG PO TID Prednisone (Prednisone Tab), 0 PO DAILY Ranitidine Hcl (Zantac), 300 MG PO HS [Utibron], 1 CAP INH BID Scheduled PRN Acetaminophen Tab (Tylenol), 325-650 MG PO Q6H PRN for Pain or Fever Albuterol Hfa (Ventolin Hfa), 2 PUFFS INH Q4H PRN for Wheezing Aloe-Sodium Chloride ([place] Saline Nasal Gel), 1 APPLN NA BID PRN for Irritation Azithromycin (Zithromax), 250 MG PO UD PRN for Rescue Kit Benzonatate (Tessalon Perles), 100-200 MG PO TID PRN for Cough Cyclobenzaprine Hcl (Flexeril), 10 MG PO BID PRN for Muscle Spasm Glimepiride (Amaryl), 0.5 MG PO QAM PRN for While on Prednisone Hydrocodone/Acetaminophen 5MG/325MG ([place] 5MG/325MG), 1 TABLET PO Q8 PRN for Moderate Pain Ipratropium-Albuterol (Duoneb), 1 VIAL NEB Q4H PRN for SOB/Wheezing Prednisone Tab (Prednisone), 10 MG PO UD PRN for Rescue Kit Zolpidem Tartrate (Zolpidem Tartrate), 5 MG PO HS PRN for Sleep Allergies Coded Allergies: No Known Allergies (Verified , 10/21/16) Physical Exam Vital Signs Date Time Temp Pulse Resp B/P (MAP) Pulse Ox O2 Delivery O2 Flow Rate FiO2 10/21/16 14:25 105 24 151/83 100 BiPAP 30 10/21/16 14:08 106 24 132/100 100 BiPAP 30 10/21/16 13:33 109 24 131/95 100 BiPAP 30 10/21/16 13:27 111 26 134/100 100 BiPAP 10/21/16 13:12 100 BiPAP 15.0 30 10/21/16 13:01 115 28 160/111 100 BiPAP 10/21/16 12:37 117 26 165/97 100 BiPAP 30 10/21/16 12:32 120 10/21/16 12:22 121 28 153/88 100 BiPAP 10/21/16 12:07 121 100 30 10/21/16 12:07 121 35 100 BiPAP/CPAP 30 10/21/16 12:05 120 28 174/103 100 BiPAP 30 10/21/16 11:48 100 BiPAP 30 10/21/16 11:35 127 32 200/163 100 CPAP 15.0 10/21/16 11:35 100 CPAP 15.0 Physical Exam GENERAL: Patient is in moderate respiratory distress HEENT: No acute trauma, normocephalic atraumatic, mucous membranes moist, no nasal congestion, no scleral icterus. NECK: No stridor, no adenopathy, no meningismus, trachea is midline. LUNGS: Accessory muscle use, increased respiratory rate, moderate respiratory distress, bilateral wheezing, decreased respiratory sounds. HEART: Cannot assess secondary to lung sounds ABDOMEN: Soft, nontender, bowel sounds positive, no hernias, no peritonitis. EXTREMITIES: No cyanosis or edema, full range of motion of all the joints without pain or difficulty, no signs for acute trauma. NEUROLOGIC: Oriented x 3, no acute motor or sensory deficits, no focal weakness. SKIN: Mild diaphoresis. No rash, no jaundice. Medical Decision & Procedures ER Provider Diagnostic Interpretation: X-ray results as stated below per interpretation by me and the radiologist: SINGLE VIEW CHEST CLINICAL HISTORY: Dyspnea. FINDINGS: An AP, portable, upright chest radiograph is compared to study dated 10/13/2016. Correlation is made with chest CT dated 02/26/2016. The examination is degraded by portable technique and patient rotation. The cardiomediastinal silhouette is unremarkable. Emphysema and chronic interstitial thickening are similar to previous. No airspace consolidation or pleural effusion is identified. No pneumothorax is seen. The skeletal structures are osteopenic. The bony thorax is grossly intact. IMPRESSION: Emphysema with no active disease in the chest. Electronically signed by: Navin Fletcher M.D. 10/21/2016 12:07 PM Dictated Date/Time: 10/21/2016 12:07 PM Laboratory Results 10/21/16 11:45 Red Blood Count 4.18, Mean Corpuscular Volume 88.0, Mean Corpuscular Hemoglobin 27.8, Mean Corpuscular Hemoglobin Concent 31.5, Mean Platelet Volume 8.7, Neutrophils (%) (Auto) 41.3, Lymphocytes (%) (Auto) 47.2, Monocytes (%) (Auto) 8.7, Eosinophils (%) (Auto) 2.1, Basophils (%) (Auto) 0.3, Neutrophils # (Auto) 2.76, Lymphocytes # (Auto) 3.15, Monocytes # (Auto) 0.58, Eosinophils # (Auto) 0.14, Basophils # (Auto) 0.02 10/21/16 11:45 Test 10/21/16 11:45 10/21/16 13:06 White Blood Count 6.68 K/uL (4.8-10.8) Red Blood Count 4.18 M/uL (4.2-5.4) Hemoglobin 11.6 g/dL (12.0-16.0) Hematocrit 36.8 % (37-47) Mean Corpuscular Volume 88.0 fL (80-100) Mean Corpuscular Hemoglobin 27.8 pg (25-34) Mean Corpuscular Hemoglobin Concent 31.5 g/dl (32-36) Platelet Count 325 K/uL (130-400) Mean Platelet Volume 8.7 fL (7.4-10.4) Neutrophils (%) (Auto) 41.3 % Lymphocytes (%) (Auto) 47.2 % Monocytes (%) (Auto) 8.7 % Eosinophils (%) (Auto) 2.1 % Basophils (%) (Auto) 0.3 % Neutrophils # (Auto) 2.76 K/uL (1.4-6.5) Lymphocytes # (Auto) 3.15 K/uL (1.2-3.4) Monocytes # (Auto) 0.58 K/uL (0.11-0.59) Eosinophils # (Auto) 0.14 K/uL (0-0.5) Basophils # (Auto) 0.02 K/uL (0-0.2) RDW Standard Deviation 51.0 fL (36.4-46.3) RDW Coefficient of Variation 15.9 % (11.5-14.5) Immature Granulocyte % (Auto) 0.4 % Immature Granulocyte # (Auto) 0.03 K/uL (0.00-0.02) Anion Gap 7.0 mmol/L (3-11) Est Creatinine Clear Calc Drug Dose 82.7 ml/min Estimated GFR () 85.1 Estimated GFR (Non- 73.4 BUN/Creatinine Ratio 22.4 (10-20) Calcium Level 9.1 mg/dl (8.5-10.1) Arterial Blood pH 7.35 (7.35-7.45) Arterial Blood Partial Pressure CO2 54 mmHg (35-46) Arterial Blood Partial Pressure O2 214 mm/Hg (80-95) Arterial Blood HCO3 29 mmol/L (19-24) Arterial Blood Oxygen Saturation 99.4 % (90-95) Arterial Blood Base Excess 2.8 mEq/L (-9-1.8) Arterial Blood Gas Delivery 30% Ziyad Test POS (POS) Laboratory results reviewed by me. Medications Administered Medications (Trade) Dose Ordered Sig/Allison Route Start Time Stop Time Status Last Admin Dose Admin Albuterol/ Ipratropium (Duoneb) 12 ml NOW STAT INH 10/21/16 11:40 10/21/16 11:43 DC 10/21/16 11:52 12 ML Magnesium Sulfate (Magnesium Sulfate) 2 gm NOW STAT IV 10/21/16 11:40 10/21/16 11:43 DC 10/21/16 11:52 2 GM Methylprednisolone Sodium Succinate (Solu-Medrol IV) 125 mg NOW STAT IV 10/21/16 11:40 10/21/16 11:43 DC 10/21/16 11:51 125 MG Lorazepam (Ativan Inj) 0.5 mg NOW STAT IV 10/21/16 11:46 10/21/16 11:48 DC 10/21/16 11:51 0.5 MG Ceftriaxone Sodium (Rocephin Inj) 1 gm NOW STAT IV 10/21/16 12:36 10/21/16 12:37 DC 10/21/16 13:02 1 GM Sodium Chloride 500 ml @ 999 mls/hr Q31M STAT IV 10/21/16 12:36 10/21/16 13:06 DC 10/21/16 12:40 999 MLS/HR Sodium Chloride 1,000 ml @ 125 mls/hr Q8H STAT IV 10/21/16 12:36 10/21/16 20:35 10/21/16 13:35 125 MLS/HR ECG Indication: SOB/dyspnea Rate (beats per minute): 119 Rhythm: sinus tachycardia Findings: no acute ischemic change, no ectopy ED Course 1137: The patient was evaluated in room B1. A complete history and physical exam was performed. 1140: Ordered Solu-Medrol IV 125 mg IV, Magnesium Sulfate 2 mg IV, Duoneb 12 ml INH. 1146: Ordered Ativan Inj 0.5 mg IV. 1231: I reevaluated the patient and she is doing better, but is still short of breath. I discussed the exam findings with her and I discussed the treatment plan. She verbalized complete understanding and agreement. She will be evaluated for further treatment. 1236: Ordered Sodium Chloride 1000 ml @ 125 mls/hr IV, Sodium Chloride 500 ml @ 999 mls/hr IV, Rocephin Inj 1 gm IV. 1238: I discussed the patients case with Michaela Sullivan PA-C. He is going to evaluate the patient for further treatment. Medical Decision The patient is a 61 year old female who presents to the ED with complaints of respiratory distress. Differential diagnoses considered include Exacerbation of asthma or COPD, bronchitis, pneumonia, CHF, pneumothorax, cardiac ischemia. There is no leukocytosis or concerning anemia. No significant electrolyte abnormality or kidney failure. Chest film does not show CHF, pneumothorax or pneumonia. EKG shows a sinus tachycardia, no acute ischemia. The patient was in respiratory distress. She was quite tight. She was given an hour-long DuoNeb with BiPAP. She was given 2 g of IV magnesium, IV saline and IV Solu-Medrol. She received a dose of IV ceftriaxone as antibiotic coverage. She requested a small amount of IV Ativan for anxiety, this was given. The patient has improved with the BiPAP and the above treatment. She still though is short of breath and still wheezing, she is still tachycardic. I do not think she is in any condition to be discharged home. She requires further care here in the hospital. I did speak to the patient and the correctional case records supervisor. The on-call hospitalist was consulted. She appears to be suffering from an exacerbation of COPD/asthma. Medication Reconcilliation Current Medication List: was personally reviewed by me Blood Pressure Screening Patient's blood pressure: Elevated blood pressure Blood pressure disposition: Referred to PCP Consults Time Called: 1236 Consulting Physician: Michaela Sullivan PA-C Returned Call: 1233 I discussed the patients case with Michaela Sullivan PA-C. He is going to evaluate the patient for further treatment. Impression Primary Impression: COPD exacerbation Additional Impression: Respiratory distress Critical Care I have personally spent greater than 30 minutes of critical care time in the direct management of this patient. This includes bedside care, interpretation of diagnostic studies, and testing, discussion with consultants, patient, and family members, and other required patient management activities. This 30 minutes is in excess of all separately billable procedures. Scribe Attestation The scribe's documentation has been prepared under my direction and personally reviewed by me in its entirety. I confirm that the note above accurately reflects all work, treatment, procedures, and medical decision making performed by me. Departure Information Dispostion Being Evaluated By Hospitalist Referrals Martina Jay M.D. (PCP) Problem Qualifiers
[2016-10-21 11:57] LABS: BASO % 0.3 %; BASO ABS # 0.02 K/uL (0-0.2); COMPLETE YES; EOS % 2.1 %; HEMATOCRIT 36.8 % (37-47); IG% 0.4 %; LYMPH % 47.2 %; LYMPH ABS # 3.15 K/uL (1.2-3.4); MEAN CORPUSCULAR HEMOGLOBIN 27.8 pg (25-34); MEAN CORPUSCULAR HGB CONC 31.5 g/dl (32-36); MEAN PLATELET VOLUME 8.7 fL (7.4-10.4); MONO % 8.7 %; NEUT % 41.3 %; PLATELET COUNT 325 K/uL (130-400); RED BLOOD COUNT 4.18 M/uL (4.2-5.4); WHITE BLOOD COUNT 6.68 K/uL (4.8-10.8)
--- NOTE | 2016-10-21 12:09 | DIAGNOSTIC IMAGING REPORT ---
SINGLE VIEW CHEST CLINICAL HISTORY: Dyspnea. FINDINGS: An AP, portable, upright chest radiograph is compared to study dated 10/13/2016. Correlation is made with chest CT dated 02/26/2016. The examination is degraded by portable technique and patient rotation. The cardiomediastinal silhouette is unremarkable. Emphysema and chronic interstitial thickening are similar to previous. No airspace consolidation or pleural effusion is identified. No pneumothorax is seen. The skeletal structures are osteopenic. The bony thorax is grossly intact. IMPRESSION: Emphysema with no active disease in the chest. Electronically signed by: Navin Fletcher M.D. 10/21/2016 12:07 PM Dictated Date/Time: 10/21/2016 12:07 PM
[2016-10-21 12:15] LABS: BUN/CREATININE RATIO 22.4 (10-20); CALCIUM 9.1 mg/dl (8.5-10.1); CREATININE 0.85 mg/dl (0.60-1.20); POTASSIUM 3.7 mmol/L (3.5-5.1)
[2016-10-21] MEDS ORDERED: CEFTRIAXONE SOD INJ 1 GM ADDVIAL IV STA (12:36)
[2016-10-21] MEDS ORDERED: SODIUM CHLORIDE 0.9% 1000ML 1,000 ML IV STA (12:36)
[2016-10-21] MEDS ORDERED: SODIUM CHLORIDE 0.9% 500ML 500 ML IV STA (12:36)
[2016-10-21 13:21] LABS: ARTERIAL BLD GAS O2 SATURATION 99.4 % (90-95); ARTERIAL BLOOD GAS BASE EXCESS 2.8 mEq/L (-9-1.8); ARTERIAL BLOOD GAS HCO3 29 mmol/L (19-24); ARTERIAL BLOOD GAS PO2 214 mm/Hg (80-95); ARTERIAL BLOOD GAS pH 7.35 (7.35-7.45); O2 ADMINISTRATION 30%
[2016-10-21 13:22] LABS: ALLEN TEST POS (POS)
[2016-10-21] MEDS ORDERED: GLUCAGON FOR INJ 1 MG VIAL SQ PRN (14:30)
[2016-10-21] MEDS ORDERED: PHARMACY GLYCEMIC MGMT CONSULT PRN (14:30)
[2016-10-21] MEDS ORDERED: ONDANSETRON INJ 2 MG/ML 2 ML VIAL IV PRN (14:30)
[2016-10-21] MEDS ORDERED: DEXTROSE 50% 50 ML SYR IV PRN (14:30)
[2016-10-21] MEDS ORDERED: ACETAMINOPHEN 325 MG TAB PO PRN (14:30)
[2016-10-21] MEDS ORDERED: GLUCOSE 10 TABS/TUBE PO PRN (14:30)
[2016-10-21] MEDS ORDERED: MAGNESIUM HYDROXIDE SUSP 30 ML UDC PO PRN (14:30)
[2016-10-21] MEDS ORDERED: GLUCOSE 40% GEL 15 GM TUBE PO PRN (14:30)
[2016-10-21] MEDS ORDERED: ALBUTEROL HFA 8 GM INHALER INH PRN (14:45)
--- NOTE | 2016-10-21 15:02 | Critical Care Consultation ---
Critical Care Consultation Date of Consultation: Oct 21, 2016. Attending Physician: Reason for Consultation: Respiratory failure History of Present Illness This is 61 year old female with h/o COPD, chronic CO2 retention, on home O2, previous intubation last year and multiple admissions requiring non-invasive ventilation presented to ED c/o shortness of breath. She was in severe distress on arrival, improved significantly on bi-level non- invasive ventilation, was actually sleeping comfortably when I entered the room. She denies fever or chills, has mildly increased sputum production and cough. 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 States that she is compliant with her inhalers Past Medical/Surgical History COPD (intubated once last year), on home O2 HTN GERD Depression DM-2 Family History Diabetes mellitus FH: heart disease FH: lung disease FHx: cancer Hypertension Social History Smoking Status: Former Smoker Drug Use: none Marital Status: single Housing Status: lives alone Occupation Status: disabled Allergies Coded Allergies: No Known Allergies (Verified , 10/21/16) Home Medications Scheduled Amitriptyline HCl (Amitriptyline HCl), 10 MG PO HS Amlodipine Besylate (Amlodipine Besylate), 5 MG PO DAILY Aspirin (Aspirin Chewable), 81 MG PO DAILY Atorvastatin (Lipitor), 10 MG PO QAM Cyanocobalamin (Vitamin B12), 1,000 MCG PO DAILY Fluticasone Propionate (Fluticasone Propionate), 2 SPRAYS LIDYA BID Furosemide (Lasix), 20 MG PO QAM Gabapentin (Neurontin), 100 MG PO TID Home O2 Therapy (Oxygen), 3 LITERS NA UD Ipratropium-Albuterol (Combivent Respimat), 1 PUFF INH QID Magnesium Oxide (Mag-Ox), 400 MG PO DAILY Metformin Hcl (Glucophage), 1,000 MG PO BID Montelukast Sodium (Singulair), 10 MG PO QAM Pantoprazole Sodium (Protonix), 40 MG PO QAM Potassium Chloride (Potassium Chloride Er), 10 MEQ PO DAILY Pramipexole Dihydrochloride (Mirapex), 0.5 MG PO TID Ranitidine Hcl (Zantac), 300 MG PO HS [Utibron], 1 CAP INH BID Scheduled PRN Acetaminophen Tab (Tylenol), 325-650 MG PO Q6H PRN for Pain or Fever Albuterol Hfa (Ventolin Hfa), 2 PUFFS INH Q4H PRN for Wheezing Aloe-Sodium Chloride ([place] Saline Nasal Gel), 1 APPLN NA BID PRN for Irritation Azithromycin (Zithromax), 250 MG PO UD PRN for Rescue Kit Benzonatate (Tessalon Perles), 100-200 MG PO TID PRN for Cough Cyclobenzaprine Hcl (Flexeril), 10 MG PO BID PRN for Muscle Spasm Glimepiride (Amaryl), 0.5 MG PO QAM PRN for While on Prednisone Hydrocodone/Acetaminophen 5MG/325MG ([place] 5MG/325MG), 1 TABLET PO Q8 PRN for Moderate Pain Ipratropium-Albuterol (Duoneb), 1 VIAL NEB Q4H PRN for SOB/Wheezing Prednisone Tab (Prednisone), 10 MG PO UD PRN for Rescue Kit Zolpidem Tartrate (Zolpidem Tartrate), 5 MG PO HS PRN for Sleep Current Inpatient Medications Current Inpatient Medications Medications (Trade) Dose Ordered Sig/Allison Route Start Time Stop Time Status Last Admin Dose Admin Sodium Chloride 1,000 ml @ 125 mls/hr Q8H STAT IV 10/21/16 12:36 10/21/16 20:35 10/21/16 13:35 125 MLS/HR Albuterol/ Ipratropium (Duoneb) 3 ml Q4R INH 10/21/16 16:00 11/20/16 15:59 UNV Enoxaparin Sodium (Lovenox Inj) 40 mg Q24H SC 10/21/16 14:30 11/20/16 14:29 UNV Acetaminophen (Tylenol Tab) 650 mg Q4H PRN PO 10/21/16 14:30 11/20/16 14:29 UNV Magnesium Hydroxide (Milk Of Magnesia Susp) 30 ml Q12H PRN PO 10/21/16 14:30 11/20/16 14:29 UNV Ondansetron HCl (Zofran Inj) 4 mg Q6H PRN IV 10/21/16 14:30 11/20/16 14:29 UNV Insulin Aspart (novoLOG ASPART) SLIDING SCALE If C... ACHS SC 10/21/16 16:00 11/20/16 15:59 UNV Glucose (Glucose 40% Gel) 15-30 GRAMS 15 GRAMS... UD PRN PO 10/21/16 14:30 11/20/16 14:29 UNV Glucose (Glucose Chew Tab) 4-8 Tablets 4 Tabl... UD PRN PO 10/21/16 14:30 11/20/16 14:29 UNV Dextrose (Dextrose 50% 50ML Syringe) 25-50ML OF 50% DW IV FOR... UD PRN IV 10/21/16 14:30 11/20/16 14:29 UNV Glucagon (Glucagon Inj) 1 mg UD PRN SQ 10/21/16 14:30 11/20/16 14:29 UNV Miscellaneous Information (Consult Glycemic Management Pharmacy) 1 ea NOW N/A 10/21/16 14:30 11/20/16 14:29 UNV Albuterol/ Ipratropium (Duoneb) 3 ml Q4R INH 10/21/16 16:00 11/20/16 15:59 UNV Methylprednisolone Sodium Succinate 125 mg/Syringe 2 ml @ 1.5 mls/min Q6 IV 10/21/16 18:00 11/20/16 17:59 UNV Review of Systems Per HPI, all other systems reviewed and negative Physical Exam Date Time Temp Pulse Resp B/P (MAP) Pulse Ox O2 Delivery O2 Flow Rate FiO2 10/21/16 14:25 105 24 151/83 100 BiPAP 30 10/21/16 14:08 106 24 132/100 100 BiPAP 30 10/21/16 13:33 109 24 131/95 100 BiPAP 30 10/21/16 13:27 111 26 134/100 100 BiPAP 10/21/16 13:12 100 BiPAP 15.0 30 10/21/16 13:01 115 28 160/111 100 BiPAP 10/21/16 12:37 117 26 165/97 100 BiPAP 30 10/21/16 12:32 120 10/21/16 12:22 121 28 153/88 100 BiPAP 10/21/16 12:07 121 100 30 10/21/16 12:07 121 35 100 BiPAP/CPAP 30 10/21/16 12:05 120 28 174/103 100 BiPAP 30 10/21/16 11:48 100 BiPAP 30 10/21/16 11:35 127 32 200/163 100 CPAP 15.0 10/21/16 11:35 100 CPAP 15.0 General Appearance: no apparent distress, obese Head: normocephalic Eyes: no discharge Neck: other (short and thick) Respiratory: wheezing (bilaterally), other (Prolonged expiratory phase) Cardiovasular: regular rate/rhythm, normal S1S2, no murmur Abdomen: non tender, no rebound Upper Extremities: no edema Lower Extremities: no edema Neuro: alert, oriented x 3, normal motor exam Laboratory Results Last 24 Hours Test 10/21/16 11:45 10/21/16 13:06 White Blood Count 6.68 K/uL Red Blood Count 4.18 M/uL Hemoglobin 11.6 g/dL Hematocrit 36.8 % Mean Corpuscular Volume 88.0 fL Mean Corpuscular Hemoglobin 27.8 pg Mean Corpuscular Hemoglobin Concent 31.5 g/dl Platelet Count 325 K/uL Mean Platelet Volume 8.7 fL Neutrophils (%) (Auto) 41.3 % Lymphocytes (%) (Auto) 47.2 % Monocytes (%) (Auto) 8.7 % Eosinophils (%) (Auto) 2.1 % Basophils (%) (Auto) 0.3 % Neutrophils # (Auto) 2.76 K/uL Lymphocytes # (Auto) 3.15 K/uL Monocytes # (Auto) 0.58 K/uL Eosinophils # (Auto) 0.14 K/uL Basophils # (Auto) 0.02 K/uL RDW Standard Deviation 51.0 fL RDW Coefficient of Variation 15.9 % Immature Granulocyte % (Auto) 0.4 % Immature Granulocyte # (Auto) 0.03 K/uL Sodium Level 139 mmol/L Potassium Level 3.7 mmol/L Chloride Level 103 mmol/L Carbon Dioxide Level 29 mmol/L Anion Gap 7.0 mmol/L Blood Urea Nitrogen 19 mg/dl Creatinine 0.85 mg/dl Est Creatinine Clear Calc Drug Dose 82.7 ml/min Estimated GFR () 85.1 Estimated GFR (Non- 73.4 BUN/Creatinine Ratio 22.4 Random Glucose 124 mg/dl Calcium Level 9.1 mg/dl Arterial Blood pH 7.35 Arterial Blood Partial Pressure CO2 54 mmHg Arterial Blood Partial Pressure O2 214 mm/Hg Arterial Blood HCO3 29 mmol/L Arterial Blood Oxygen Saturation 99.4 % Arterial Blood Base Excess 2.8 mEq/L Arterial Blood Gas Delivery 30% Ziyad Test POS Diagnostic Results CXR today: FINDINGS: An AP, portable, upright chest radiograph is compared to study dated 10/13/2016. Correlation is made with chest CT dated 02/26/2016. The examination is degraded by portable technique and patient rotation. The cardiomediastinal silhouette is unremarkable. Emphysema and chronic interstitial thickening are similar to previous. No airspace consolidation or pleural effusion is identified. No pneumothorax is seen. The skeletal structures are osteopenic. The bony thorax is grossly intact. IMPRESSION: Emphysema with no active disease in the chest. Assessment & Plan 61 year old female presents with COPD exacerbation, acute on chronic respiratory failure type 2 Plan: Aggressive bronchodilators Systemic steroids, would lower to 40 mg q 8. High doses are not extra beneficial Would continue empiric short course of Abx Maintain on BIPAP for today, may take intermittent brakes. She should use nocturnal BIPAP here, and I would also prescribe it to her as outpatient given chronic CO2 retention. Most likely, looking at her body habitus she also has sleep apnea, so BIPAP may impact her daily activities in a positive way Continue rest of her cardiac meds, glycemic control I believe that she improved significantly, and does not seem that she'll require intubation, I discussed with Dr Wise, she may be admitted to a monitored bed. Please reconsult ICU if needed Time spent with patient, examining the chart, discussing the patient, greater than 25 minutes Jayden Dunne MD
--- NOTE | 2016-10-21 15:33 | Pharmacy Progress Note ---
Glycemic Control Intl Consult Date of Service Oct 21, 2016. Scope Glycemic Pharmacist consulted by VELASQUEZ Burgos on 10/21/16 for glycemic control and to write orders per [facility] inpatient glycemic control protocol Objective Weight (Kilograms): 112.300 Accuchecks BSG (last 24hrs): Test 10/21/16 11:45 Random Glucose 124 mg/dl (70-99) Laboratory Data (last 24hrs) Test 10/21/16 11:45 Anion Gap 7.0 mmol/L BUN/Creatinine Ratio 22.4 Blood Urea Nitrogen 19 mg/dl Creatinine 0.85 mg/dl Potassium Level 3.7 mmol/L Sodium Level 139 mmol/L White Blood Count 6.68 K/uL Red Blood Count 4.18 M/uL Hemoglobin 11.6 g/dL Hematocrit 36.8 % Mean Corpuscular Volume 88.0 fL Mean Corpuscular Hemoglobin 27.8 pg Mean Corpuscular Hemoglobin Concent 31.5 g/dl Platelet Count 325 K/uL Mean Platelet Volume 8.7 fL Neutrophils (%) (Auto) 41.3 % Lymphocytes (%) (Auto) 47.2 % Monocytes (%) (Auto) 8.7 % Eosinophils (%) (Auto) 2.1 % Basophils (%) (Auto) 0.3 % Neutrophils # (Auto) 2.76 K/uL Lymphocytes # (Auto) 3.15 K/uL Monocytes # (Auto) 0.58 K/uL Eosinophils # (Auto) 0.14 K/uL Basophils # (Auto) 0.02 K/uL Recent Pertinent Medications Outpatient Anti-diabetic Regimen: * metformin PO * amaryl PO * Known noncompliance * A1c = 6.5 % 09/09/16 Risk Factors for Insulin Resistance: * Steroids * Infection? * Diet Assessment & Plan ASSESSMENT: * 61 yo F known to glycemic service from prior admissions * Pt presents to ED today with SOB and is now on HIGH dose IV steroids * Expect to see steroid-induced hyperglycemia similar to other admissions * Will hold orals, initiate basal/bolus regimen that is wt based/stress of 3 * If BSGs remain elevated throughout the night, recommend insulin drip given the dose of the steroids (solumedrol 125 mg IV every 6 hours) * ADA & AACE recommend a goal blood sugar range 140-180 mg/dl for the majority of critically ill & non-critically ill patients. However, more stringent targets may be selected in individual cases. Tighten to 110-140 mg/dL based on prior admissions. PLAN FOR INPATIENT GLYCEMIC CONTROL: * Recommend insulin drip if BSGs rise and maintain >250 * Hold outpatient oral diabetes medications * Basal insulin with LANTUS 28 units SQ BID, start with dinner to try to get ahead of hyperglycemia * Correctional Insulin with NOVOLOG per scale ACHS + 0000 and 29548 * Goal Range: Low 110 mg/dL - High 140 mg/dL * Correction Factor: 15 mg/dL/unit * Nutritional / Prandial insulin per carb ratio of 1 unit per 5 grams CHO consumed * Please note that the plan above was derived based on current level of insulin resistance and hospital stress. These recommendations are appropriate for inpatient admission only. Plan of care upon discharge will need to be reassessed to avoid potential outpatient hypo/hyperglycemia. Thank you.
[2016-10-21] MEDS ORDERED: ALBUT/IPRATROP 3MG/0.5MG NEB 3 ML VIAL INH SCH ×2 (16:00)
[2016-10-21] MEDS ORDERED: INSULIN ASPART 100 UNITS/ML 3 ML PEN SC SCH (16:00)
--- NOTE | 2016-10-21 16:18 | History and Physical ---
History & Physical Date & Time of Service: Oct 21, 2016 at 16:15 Chief Complaint: Acute Respiratory Failure Primary Care Physician: Martina Jay M.D. History of Present Illness This is a 61yo F with a PMH of COPD/asthma, HTN, DM II, and other problems noted below who presents in respiratory distress that started this AM. Patient has been seen here multiple times in the past for COPD/asthma exacerbations, including one last winter that required emergent intubation. Patient was seen in August twice for exacerbations that had completely resolved and patient was in her normal state of health until last evening, which she started to notice some SOB at rest. When patient woke up today, she was very dyspneic at rest with wheezing and distress, so she called EMS. Was placed on CPAP and given 1 treamtment of albuterol en route and then switched to Bipap in the ED. Symptoms improved after an hour of nebulizer treatment. Patient is able to answer yes or no questions and speak in short phrases during exam. Denies being on steroids or antibiotics at home but states that she has been prescribed rescue sets of both. Denies any recent URI symptoms, fever, chills, lightheadedness, CP. Follows with [facility] and states that she has been taking all medications as prescribed. Has been on 2-3L of home O2 PRN since discharge in August. Past Medical/Surgical History Medical Problems: (1) Anemia Status: Chronic (2) Asthma Status: Chronic (3) Carpal tunnel syndrome Status: Chronic (4) COPD (chronic obstructive pulmonary disease) Status: Chronic (5) Depression Status: Chronic (6) Diabetes mellitus, type 2 Status: Chronic (7) GERD (gastroesophageal reflux disease) Status: Chronic (8) Hiatal hernia Status: Chronic (9) History of cervical cancer Permanent Comment: s/p laser Status: Chronic (10) Hyperlipidemia Status: Chronic (11) Hypertension Status: Chronic (12) Hypertension Status: Chronic (13) Intervertebral disc disorder Permanent Comment: C5-C6 Status: Chronic (14) Nocturnal hypoxia Permanent Comment: home O2 2 LPM HS Status: Chronic (15) Osteoarthritis Status: Chronic (16) Reflux esophagitis Status: Chronic (17) Restless leg syndrome Status: Chronic Surgical Problems: (1) H/O colonoscopy Status: Chronic (2) History of esophagogastroduodenoscopy (EGD) Status: Chronic Family History Diabetes mellitus FH: heart disease FH: lung disease FHx: cancer Hypertension Social History Smoking Status: Former Smoker Drug Use: none Marital Status: single Housing status: lives with family Occupational Status: disabled Immunizations History of Influenza Vaccine: Yes History of Tetanus Vaccine?: No History of Pneumococcal: Yes History of Hepatitis B Vaccine: No Multi-Drug Resistant Organisms History of MDRO: No Allergies Coded Allergies: No Known Allergies (Verified , 10/21/16) Home Medications Scheduled Amitriptyline HCl (Amitriptyline HCl), 10 MG PO HS Amlodipine Besylate (Amlodipine Besylate), 5 MG PO DAILY Aspirin (Aspirin Chewable), 81 MG PO DAILY Atorvastatin (Lipitor), 10 MG PO QAM Cyanocobalamin (Vitamin B12), 1,000 MCG PO DAILY Fluticasone Propionate (Fluticasone Propionate), 2 SPRAYS LIDYA BID Furosemide (Lasix), 20 MG PO QAM Gabapentin (Neurontin), 100 MG PO TID Home O2 Therapy (Oxygen), 3 LITERS NA UD Ipratropium-Albuterol (Combivent Respimat), 1 PUFF INH QID Magnesium Oxide (Mag-Ox), 400 MG PO DAILY Metformin Hcl (Glucophage), 1,000 MG PO BID Montelukast Sodium (Singulair), 10 MG PO QAM Pantoprazole Sodium (Protonix), 40 MG PO QAM Potassium Chloride (Potassium Chloride Er), 10 MEQ PO DAILY Pramipexole Dihydrochloride (Mirapex), 0.5 MG PO TID Ranitidine Hcl (Zantac), 300 MG PO HS [Utibron], 1 CAP INH BID Scheduled PRN Acetaminophen Tab (Tylenol), 325-650 MG PO Q6H PRN for Pain or Fever Albuterol Hfa (Ventolin Hfa), 2 PUFFS INH Q4H PRN for Wheezing Aloe-Sodium Chloride (Rice Saline Nasal Gel), 1 APPLN NA BID PRN for Irritation Azithromycin (Zithromax), 250 MG PO UD PRN for Rescue Kit Benzonatate (Tessalon Perles), 100-200 MG PO TID PRN for Cough Cyclobenzaprine Hcl (Flexeril), 10 MG PO BID PRN for Muscle Spasm Glimepiride (Amaryl), 0.5 MG PO QAM PRN for While on Prednisone Hydrocodone/Acetaminophen 5MG/325MG (Lawrence 5MG/325MG), 1 TABLET PO Q8 PRN for Moderate Pain Ipratropium-Albuterol (Duoneb), 1 VIAL NEB Q4H PRN for SOB/Wheezing Prednisone Tab (Prednisone), 10 MG PO UD PRN for Rescue Kit Zolpidem Tartrate (Zolpidem Tartrate), 5 MG PO HS PRN for Sleep Review of Systems Ten systems reviewed and negative except as noted in the HPI. Physical Exam Vital Signs Date Time Temp Pulse Resp B/P (MAP) Pulse Ox O2 Delivery O2 Flow Rate FiO2 10/21/16 14:51 104 24 130/84 99 10/21/16 14:25 105 24 151/83 100 BiPAP 30 10/21/16 14:08 106 24 132/100 100 BiPAP 30 10/21/16 13:33 109 24 131/95 100 BiPAP 30 10/21/16 13:27 111 26 134/100 100 BiPAP 10/21/16 13:12 100 BiPAP 15.0 30 10/21/16 13:01 115 28 160/111 100 BiPAP 10/21/16 12:37 117 26 165/97 100 BiPAP 30 10/21/16 12:32 120 10/21/16 12:22 121 28 153/88 100 BiPAP 10/21/16 12:07 121 100 30 10/21/16 12:07 121 35 100 BiPAP/CPAP 30 10/21/16 12:05 120 28 174/103 100 BiPAP 30 10/21/16 11:48 100 BiPAP 30 10/21/16 11:35 127 32 200/163 100 CPAP 15.0 10/21/16 11:35 100 CPAP 15.0 General Appearance: WD/WN, + moderate distress (Bipap in place, patient able to speak in short phrases.) Head: normocephalic, atraumatic Eyes: normal inspection ENT: hearing grossly normal Neck: supple, no adenopathy, trachea midline Respiratory/Chest: + wheezing (Diffuse wheezing throughout lung pool) Cardiovascular: no murmur, + tachycardia Abdomen/GI: normal bowel sounds, non tender, soft, no organomegaly Neurologic/Psych: no motor/sensory deficits, alert, oriented x 3 Skin: normal color, warm/dry, no rash Diagnostics Laboratory Results Results Past 24 Hours Test 10/21/16 11:45 10/21/16 13:06 10/21/16 15:24 Range/Units White Blood Count 6.68 4.8-10.8 K/uL Red Blood Count 4.18 4.2-5.4 M/uL Hemoglobin 11.6 12.0-16.0 g/dL Hematocrit 36.8 37-47 % Mean Corpuscular Volume 88.0 80-100 fL Mean Corpuscular Hemoglobin 27.8 25-34 pg Mean Corpuscular Hemoglobin Concent 31.5 32-36 g/dl Platelet Count 325 130-400 K/uL Mean Platelet Volume 8.7 7.4-10.4 fL Neutrophils (%) (Auto) 41.3 % Lymphocytes (%) (Auto) 47.2 % Monocytes (%) (Auto) 8.7 % Eosinophils (%) (Auto) 2.1 % Basophils (%) (Auto) 0.3 % Neutrophils # (Auto) 2.76 1.4-6.5 K/uL Lymphocytes # (Auto) 3.15 1.2-3.4 K/uL Monocytes # (Auto) 0.58 0.11-0.59 K/uL Eosinophils # (Auto) 0.14 0-0.5 K/uL Basophils # (Auto) 0.02 0-0.2 K/uL RDW Standard Deviation 51.0 36.4-46.3 fL RDW Coefficient of Variation 15.9 11.5-14.5 % Immature Granulocyte % (Auto) 0.4 % Immature Granulocyte # (Auto) 0.03 0.00-0.02 K/uL Sodium Level 139 136-145 mmol/L Potassium Level 3.7 3.5-5.1 mmol/L Chloride Level 103 98-107 mmol/L Carbon Dioxide Level 29 21-32 mmol/L Anion Gap 7.0 3-11 mmol/L Blood Urea Nitrogen 19 7-18 mg/dl Creatinine 0.85 0.60-1.20 mg/dl Est Creatinine Clear Calc Drug Dose 82.7 ml/min Estimated GFR () 85.1 Estimated GFR (Non- 73.4 BUN/Creatinine Ratio 22.4 10-20 Random Glucose 124 70-99 mg/dl Calcium Level 9.1 8.5-10.1 mg/dl Arterial Blood pH 7.35 7.35-7.45 Arterial Blood Partial Pressure CO2 54 35-46 mmHg Arterial Blood Partial Pressure O2 214 80-95 mm/Hg Arterial Blood HCO3 29 19-24 mmol/L Arterial Blood Oxygen Saturation 99.4 90-95 % Arterial Blood Base Excess 2.8 -9-1.8 mEq/L Arterial Blood Gas Delivery 30% Ziyad Test POS POS Bedside Glucose 169 70-90 mg/dl Diagnostic Radiology CXR: IMPRESSION: Emphysema with no active disease in the chest. EKG Sinus tachycardia Impression Assessment and Plan This is a 61yo F with a PMH of COPD/asthma, HTN, DM II, and other problems noted below who presents in respiratory distress that started this AM. Acute Respiratory Failure: -Presented on CPAP, after 1 albuterol treatment -Started on Bipap in ED and given neb treatment for 1 hr -ABG obtained while patient on Bipap, demonstrated CO2 retention -Tachycardic to 110s, likely 2/2 duoneb treatments -Acute respiratory failure 2/2 exacerbation of COPD as discussed below -Continue bipap for support -Genetic Coordinator consulted. Per recs: Aggressive bronchodilators Systemic steroids, 40 mg q 8 Continue empiric short course of abx Maintain on BIPAP for today, may take intermittent breaks Use nocturnal BIPAP here and recommends as outpatient also 2/2 chronic Co2 retention COPD Exacerbation: -Patient has been seen here multiple times in the past for COPD/asthma exacerbations, including one last winter that required emergent intubation -Sudden onset of symptoms last night. Did not use rescue pack of steroid, antibiotic -Had just completed course of steroid taper from last admission -No leukocytosis, URI symptoms, no missed doses of medications -CXR with chronic emphysema but no acute process -Started on IV solumedrol -Q4 nebs -Pulm consulted DM II: -Hgb alc of 6.9 09/12 -Well controlled normally but glycemic consult 2/2 steroids -Held home meds -SSI, per pharm adjustments -BG checks AC HS HTN: -Stable -Continue amlodipine, lasix -Monitor GERD -Continue PPI, Ranitidine DVT Ppx: Lovenox Code status: FULL PCP: Main[facility] Dispo: Plan to return home once medically stable Attending Physician Dr. Wise Addendum and updates This is 61 year old F with COPD/emphysema with prior hospitalization that required intubation and history of heart failure although no recent cardiac echo on file as inpatient and outpatient that can be found at this time with ED presentation for respiratory distress and placed on BIPAP. OLLIE Mahajan and I consulted both critical care and pulmonary on further evaluation for her cardiorespiratory disease and continue steroid treatment to solumedrol to 60 mg q6 hours as recommended by pulmonary service and switched albuterol/ ipratroprium to xopenx / ipratroprium to minimize tachycardia. Otherwise I agree with the assessment and plan as written above by OLLIE Burgos. Will maintain on BIPAP for now and keep NPO to avoid aspiration. Will continue to monitor the patient on telemetry. Will reconsult critical care if there are future acute cardiac respiratory events. Level of Care Telemetry Advanced Directives Existing Living Will: Yes Existing Power of Registered Sales Assistant: Yes Resuscitation Status FULL RESUSCITATION VTE Prophylaxis VTE Risk Assessment Done? Y/N: Yes Risk Level: Moderate Given or contraindicated: Enoxaparin (Lovenox)SQ
[2016-10-21] MEDS: INSULIN GLARGINE SOLOSTAR 100 UNITS/ML 3 ML PEN SC SCH (17:28)
[2016-10-21] MEDS ORDERED: LEVALBUTEROL 1.25MG/3ML NEB INH PRN (18:00)
[2016-10-21] MEDS ORDERED: METHYLPREDNISOLONE IV 125 MG in SYRINGE 0 ML IV SCH (18:00)
[2016-10-21] MEDS: LEVALBUTEROL 1.25MG/0.5ML NEB INH SCH ×2 (19:06→22:58)
[2016-10-21] MEDS: IPRATROPIUM BROMIDE NEB SOLN 0.02% 2.5 ML VIAL INH SCH ×2 (19:06→22:57)
--- NOTE | 2016-10-21 19:08 | Pulmonary Consultation ---
History General Date of Service: Oct 21, 2016. Stated Complaint: Acute Respiratory Failure HPI The patient is a 61 year old female who presents to [facility] with complaints of Acute Respiratory Failure. The patient's primary care provider is Martina Jay M.D.. 61y/o female admitted for She has a past medical history significant for: Admissions for acute hypoxic/ hypercapnic respiratory failure, diastolic CHF, asthma 9dx 1994), moderately severe COPD (ATS criteria), depression, diabetes mellitus, hyperlipidemia, hypertension, severe GERD, pulmonary nodule and nocturnal hypoxemia on supplemental oxygen 2 L/m (dx: 06/20/12). She is also had such severe respiratory insufficiency/failure that she required intubation. Patient was in her normal state of health until last evening and then woke up today and notable respiratory distress. She called EMS system was placed on CPAP and given a nebulizer in route. She was noted only revealed a speaking yesterday no phrases and was using accessory muscles. The emergency room the patients initial pulse oximetry was 100% on CPAP without oxygen flow rate of 15 L. Respiratory rate was notably 32 at that time. ABG obtained at 1306:7.35/54/214/ 29 on FiO2 30% and noninvasive ventilatory support of BiPAP. For treatment the patient received DuoNeb, magnesium sulfate 2 g IV, Solu-Medrol 125 mg IV, ceftriaxone 1 g and Ativan. The patients chest x-ray did not demonstrate any active infiltrate but did show signs of hilar fullness and parabronchial cuffing with associated cephalization. Previous respiratory history: Patient established 04/2014 post admission with exacerbation of ACOS. She has a long-standing history of obstructive lung disease diagnosed in the - following move [place] to the [place] area. Triggers include cold air, heat and humidity and pollen. Prior allergy testing in 2013: negative. She has been admitted multiple times in the past since for respiratory failure. In February 2016 she required requiring intubation which was complicated my myopathy and persistent vocal hoarseness post intubation. Patient was admitted 09/22/16 - 09/25/16 with hypoxic hypercapnic respiratory failure. Unfortunately, she had been admitted earlier in August as well. SHe has been struggling over the past year with recurrent admissions and poor control of her breathing. SHe has multiple provocations including acid reflux, ? allergies, and obesity. She states that she had been feeling well the day preceding her admission and ate spicy spaghetti sauce one evening then woke in the middle of the night unable to breath with subsequent admission to the ER. In the hospital she required BIPAP initially then weaned to RA. SHe was treated with solu-medrol, nebs, PPI/H2B and daily furosemide (20mg). SHe weaned O2 and was discharged on a steroid taper and 3LPM O2 x 10-days per discharge summary. Patient also has a history of poor compliance with her medication use. Triggers: Weather extremes, allergens, acid reflux, rhinorrhea Historian: patient, EMS Review of Systems Constitutional: reports: weight gain Eyes: reports: no symptoms ENT: reports: no symptoms Cardiovascular: reports: as stated in HPI Respiratory: reports: as stated in HPI Gastrointestinal: reports: no symptoms Genitourinary - Female: reports: no symptoms Musculoskeletal: reports: no symptoms Integumentary: reports: no symptoms Neurologic: reports: no symptoms Psychiatric: reports: anxiety, depression Endocrine: no symptoms Hematologic / Lymphatic: no symptoms Allergic / Immunologic: as stated in HPI Past Medical History Past Medical History: Acid reflux Allergic rhinitis Anemia Carpal tunnel syndrome Moderately severe Chronic obstructive pulmonary disease (FEV1: 66%: 01/02/2014) Depressive disorder Diabetes mellitus, type 2 Disc disorder Edema Gastric ulcer Hyperlipidemia Localized osteoarthrosis, lower leg Muscle spasm Non-allergic rhinitis Restless leg syndrome Seborrheic keratosis Wheezing ActiveProblems_10_[id number] Nocturnal hypoxemia (2Lnc) Pulmonary nodulePulmonary nodule (2mm RAO stable CT thorax: 05/2010 & 11/2013) (IntubationPost intubation vocal change ObesityObesity Past Medical History: COPD, other Past Surgical History: 1. Cataract Surgery 2. Colonoscopy (Fiberoptic) Past Surgical History: no surgical history Family History Diabetes mellitus FH: heart disease FH: lung disease FHx: cancer Hypertension 1. lung cancer 2. dementia 3. diabetes mellitus 4. hepatic cirrhosis 5. C viral hepatitis 6. Throat cancer 7. cardiac disorder 8. malignant neoplasm of esophagus Social History Always uses seat belt Former smoker No alcohol use Single Hx Tobacco Use In Past Year?: No Smoking Status: Former Smoker Alcohol: socially Drug Use: other Marital status: single Housing status: lives with family Occupational Status: disabled Immunizations History of Influenza Vaccine: Yes History of Tetanus Vaccine?: No History of Pneumococcal: Yes History of Hepatitis B Vaccine: No History of MDRO History of MDRO: No Allergies Coded Allergies: No Known Allergies (Verified , 10/21/16) Current Medications Reported Home Medications Medications Dose Route/Sig Max Daily Dose Days Date Category Dose Instructions Prednisone 10 Mg Tab 10 Mg PO UD PRN 10/13/16 Reported NEEDED RESCUE KIT FOLLOWS: TAKE 5 TABLETS (50 MG) DAILY FOR 4 DAYS THEN, TAKE 4 TABLETS (40 MG) DAILY FOR 4 DAYS THEN, TAKE 3 TABLETS (30 MG) DAILY FOR 4 DAYS THEN, TAKE 2 TABLETS (20 MG) DAILY FOR 4 DAYS THEN, TAKE 1 TABLET (10 MG) DAILY FOR 4 DAYS. Zithromax (Azithromycin) 250 Mg Tab 250 Mg PO UD PRN 6 10/13/16 Reported NEEDED RESCUE KIT FOLLOWS: TAKE 2 TABLETS ON DAY ONE THEN ONE TABLET DAILY UNTIL GONE [Utibron] 1 Cap INH BID 10/13/16 Reported Oxygen Gas 3 Liters NA UD 10/13/16 Reported USE WHEN SLEEPING AND NEEDED Mag-Ox (Magnesium Oxide) 400 Mg Tab 400 Mg PO DAILY 10/13/16 Reported Potassium Chloride Er (Potassium Chloride) 10 Meq Tab 10 Meq PO DAILY 10/13/16 Reported Combivent Respimat (Ipratropium-Albuterol) 1 Aer Aer 1 Puff INH QID 10/13/16 Reported Ventolin Hfa (Albuterol) 200 Puffs/63525 Mcg Aers 2 Puffs INH Q4H PRN 10/13/16 Reported Lasix (Furosemide) 20 Mg Tab 20 Mg PO QAM 10/13/16 Reported Amlodipine Besylate 5 Mg Tab 5 Mg PO DAILY 10/13/16 Reported [place] Nasal Gel (Aloe-Sodium Chloride) 1 Mis Mis 1 Appln NA BID PRN 10/13/16 Reported APPLY INSIDE NOSTRIL TWICE A DAY NEEDED Aspirin Chewable (Aspirin) 81 Mg Chew 81 Mg PO DAILY 09/22/16 Reported Zolpidem Tartrate 5 Mg Tab 5 Mg PO HS PRN 09/22/16 Reported Tylenol (Acetaminophen) 325 Mg Tab 325-650 Mg PO Q6H PRN 09/22/16 Reported Fluticasone Propionate 50 Mcg/Act Spr 2 Sprays LIDYA BID 09/22/16 Reported Lula 5MG/325MG (Acetaminophen/Hydrocodone Bitart) Tab 1 Tablet PO Q8 PRN 09/22/16 Reported Vitamin B12 (Cyanocobalamin) 1,000 Mcg Tab 1,000 Mcg PO DAILY 02/21/16 Reported Duoneb (Ipratropium-Albuterol) 3 Ml Nebu 1 Vial NEB Q4H PRN 12/28/15 Reported Amitriptyline HCl 10 Mg Tab 10 Mg PO HS 12/28/15 Reported Tessalon Perles (Benzonatate) 100 Mg Cap 100-200 Mg PO TID PRN 12/28/15 Reported Lipitor (Atorvastatin Calcium) 10 Mg Tab 10 Mg PO QAM 07/23/15 Reported Flexeril (Cyclobenzaprine Hcl) 10 Mg Tab 10 Mg PO BID PRN 07/23/15 Reported Singulair (Montelukast Sodium) 10 Mg Tab 10 Mg PO QAM 07/23/15 Reported Glucophage (Metformin Hcl) 1,000 Mg Tab 1,000 Mg PO BID 07/23/15 Reported Protonix (Pantoprazole Sodium) 40 Mg Tab 40 Mg PO QAM 07/23/15 Reported TAKE THIS MEDICATION ONCE DAILY 30 MINUTES BEFORE FIRST MEAL OF THE DAY Zantac (Ranitidine HCl) 300 Mg Tab 300 Mg PO HS 07/23/15 Reported Neurontin (Gabapentin) 100 Mg Cap 100 Mg PO TID 07/23/15 Reported Mirapex (Pramipexole Dihydrochloride) 0.5 Mg Tab 0.5 Mg PO TID 07/23/15 Reported Amaryl (Glimepiride) 1 Mg Tab 0.5 Mg PO QAM PRN 05/26/15 Reported Physical Physical Exam Vital Signs: Date Time Temp Pulse Resp B/P (MAP) Pulse Ox O2 Delivery O2 Flow Rate FiO2 10/21/16 16:15 115 99 30 10/21/16 16:00 99 12.0 30 10/21/16 14:51 104 24 130/84 99 10/21/16 14:25 105 24 151/83 100 BiPAP 30 10/21/16 14:08 106 24 132/100 100 BiPAP 30 10/21/16 13:33 109 24 131/95 100 BiPAP 30 10/21/16 13:27 111 26 134/100 100 BiPAP 10/21/16 13:12 100 BiPAP 15.0 30 10/21/16 13:01 115 28 160/111 100 BiPAP 10/21/16 12:37 117 26 165/97 100 BiPAP 30 10/21/16 12:32 120 10/21/16 12:22 121 28 153/88 100 BiPAP 10/21/16 12:07 121 100 30 10/21/16 12:07 121 35 100 BiPAP/CPAP 30 10/21/16 12:05 120 28 174/103 100 BiPAP 30 10/21/16 11:48 100 BiPAP 30 10/21/16 11:35 127 32 200/163 100 CPAP 15.0 10/21/16 11:35 100 CPAP 15.0 General Appearance: moderate distress, obese Head: NORMOCEPHALIC, ATRAUMATIC Eyes: PERRLA, EOMI ENT: NORMAL EAR EXAM, other (dry mucus membranes) Neck: NORMAL RANGE OF MOTION, NO TENDERNESS, TRACHEA MIDLINE, NO STRIDOR Respiratory: other (decreased BS bilaterally/little air moving) Cardiovasular: other (tachycardia) Abdomen: other (distended with decreased BS) Genitourinary - Female: EXTERNAL GENITALIA NORMAL Back: NORMAL INSPECTION, NO MIDLINE TENDERNESS, NO CVA TENDERNESS Upper Extremities: NO EDEMA, NO DEFORMITY Lower Extremities: edema Edema: Bilateral LE (3+) Pulses: carotid (R) (1+), carotid (L) (1+), posterior tibial (R), posterior tibial (L) (0) Neuro: ALERT, ORIENTED x 3 Reflexes: biceps (R) (1+), bicpes (L) (1+), achilles (R) (2+), achilles (L) (2+ ) Babinski Testing: right (downgoing), left (downgoing) Psychiatric: depressed, anxious Diagnostics Labs Results Past 24 Hours Test 10/21/16 11:45 10/21/16 13:06 10/21/16 15:24 10/21/16 17:51 Range/Units White Blood Count 6.68 4.8-10.8 K/uL Red Blood Count 4.18 4.2-5.4 M/uL Hemoglobin 11.6 12.0-16.0 g/dL Hematocrit 36.8 37-47 % Mean Corpuscular Volume 88.0 80-100 fL Mean Corpuscular Hemoglobin 27.8 25-34 pg Mean Corpuscular Hemoglobin Concent 31.5 32-36 g/dl Platelet Count 325 130-400 K/uL Mean Platelet Volume 8.7 7.4-10.4 fL Neutrophils (%) (Auto) 41.3 % Lymphocytes (%) (Auto) 47.2 % Monocytes (%) (Auto) 8.7 % Eosinophils (%) (Auto) 2.1 % Basophils (%) (Auto) 0.3 % Neutrophils # (Auto) 2.76 1.4-6.5 K/uL Lymphocytes # (Auto) 3.15 1.2-3.4 K/uL Monocytes # (Auto) 0.58 0.11-0.59 K/uL Eosinophils # (Auto) 0.14 0-0.5 K/uL Basophils # (Auto) 0.02 0-0.2 K/uL RDW Standard Deviation 51.0 36.4-46.3 fL RDW Coefficient of Variation 15.9 11.5-14.5 % Immature Granulocyte % (Auto) 0.4 % Immature Granulocyte # (Auto) 0.03 0.00-0.02 K/uL Sodium Level 139 136-145 mmol/L Potassium Level 3.7 3.5-5.1 mmol/L Chloride Level 103 98-107 mmol/L Carbon Dioxide Level 29 21-32 mmol/L Anion Gap 7.0 3-11 mmol/L Blood Urea Nitrogen 19 7-18 mg/dl Creatinine 0.85 0.60-1.20 mg/dl Est Creatinine Clear Calc Drug Dose 82.7 ml/min Estimated GFR () 85.1 Estimated GFR (Non- 73.4 BUN/Creatinine Ratio 22.4 10-20 Random Glucose 124 70-99 mg/dl Calcium Level 9.1 8.5-10.1 mg/dl Arterial Blood pH 7.35 7.35-7.45 Arterial Blood Partial Pressure CO2 54 35-46 mmHg Arterial Blood Partial Pressure O2 214 80-95 mm/Hg Arterial Blood HCO3 29 19-24 mmol/L Arterial Blood Oxygen Saturation 99.4 90-95 % Arterial Blood Base Excess 2.8 -9-1.8 mEq/L Arterial Blood Gas Delivery 30% Ziyad Test POS POS Bedside Glucose 169 70-90 mg/dl Diagnostic Radiology hilar fullness with stephanie-bronchial cuffing and cephalization EKG tachycardia with no acute signs of ischemia Impression Assessment and Plan 61 y/o female admitted with acute on chronic respiratory insufficiency: 1) Respiratory Insufiency: At this time I will place the patient NPO as she could easily fatigue and require endo-tracheal tube (ETT) intubation. She should continue on NIV support to drop her WOB. 2) COPD/ACOS: Will drop the Solu-Medrol dose to 60mg every 6 hours, switch her to Xopenex as she tachycardic, and continue NIV as much as tolerated. I will also start the patient on Levaquin as she as at an increased risk for ETT intubation but will also obtain a Pro-Calcitonin and CXR in the am. If there are no signs at that time of pulmonary infections then d/c or the anti-biotic would be warranted. 3) Hypoxemia/Hypercapnia: At the time of the patient's ABG the ED report suggest she was on BiPAP and an FiO2 of 15L not 30% which would make her A-a gradient 405mmHg. The patient's PaCO2 was also 54 at that time also suggesting she is suffering from hypercapnic/hypoxic respiratory failure. To add on to this the patient is 6Kg or 26lbs heavier than her last d/c date. Her presentation, clinical history, labs, PFTs and cardiac echo all suggest this patient not only has ACOS but also some pulmonary hypertension most likely groups II and III. This will require future work-up with a right heart catheterization and V/Q scans. I don't suggest starting full anti-coagulation at this time as the patient has had many similar attacks and her previous VTE work-ups showed no signs of acute pulmonary emboli but future evaluation for CTEPH is warranted. 4) Pulmonary Hypertension: This patient clinically acts as if she has group II pulmonary hypertension which will require aggressive diuresis and volume control. 5) Rhinitis: With the change in the weather the patient's allergic signs and symptoms appear to have flared so the Solu-Medrol and continuation of her Singular and Flonase should help. 6) Issues: This patient's GERD, rhinnitis, obesity and poor compliance all add to her continued respiratory exacerbations and needed to be worked on in the outpatient setting.
[2016-10-21] MEDS ORDERED: NURSING VERBAL MED ORDER ONE (19:45)
[2016-10-21] MEDS ORDERED: LEVOFLOXACIN 750 MG TAB PO SCH (20:00)
[2016-10-21] MEDS ORDERED: LEVALBUTEROL/IPRATROPIUM NEB INH SCH (21:00)
[2016-10-21] MEDS: PRAMIPEXOLE DIHYDROCHLORIDE 0.5 MG TAB PO SCH (21:12)
[2016-10-21] MEDS: ENOXAPARIN 40 MG/0.4 ML SYR SC SCH (21:12)
[2016-10-21] MEDS: GABAPENTIN 100 MG CAP PO SCH (21:12)
[2016-10-21] MEDS: AMITRIPTYLINE HCL 10 MG TAB PO SCH (21:12)
[2016-10-21] MEDS: RANITIDINE HCL 150 MG TAB PO SCH (21:12)
[2016-10-21] MEDS: FLUTICASONE PROPIONATE NA SPR 16 GM BTL NAE SCH (21:13)
[2016-10-21] MEDS: ZOLPIDEM TARTRATE 5 MG TAB PO PRN (21:40)
[2016-10-21] MEDS: CYCLOBENZAPRINE HCL 10 MG TAB PO PRN (21:41)
[2016-10-22] VITALS (18 sets, daily range): BP systolic 118–153; BP diastolic 70–84; PULSE 96–117; TEMP 36.3–36.7; O2SAT 96–100
[2016-10-22] MEDS ORDERED: INSULIN ASPART 100 UNITS/ML 3 ML PEN SC SCH
[2016-10-22] MEDS: METHYLPREDNISOLONE IV 60 MG in SYRINGE 0 ML IV SCH ×5 (00:13→23:32)
[2016-10-22] MEDS: INSULIN ASPART 100 UNITS/ML 3 ML PEN SC SCH ×5 (00:15→21:32)
[2016-10-22] MEDS: IPRATROPIUM BROMIDE NEB SOLN 0.02% 2.5 ML VIAL INH SCH ×4 (01:45→19:30)
[2016-10-22] MEDS: LEVALBUTEROL 1.25MG/0.5ML NEB INH SCH ×4 (01:45→19:30)
[2016-10-22 06:15] LABS: BASO % 0.2 %; BASO ABS # 0.01 K/uL (0-0.2); COMPLETE YES; HEMATOCRIT 33.1 % (37-47); IG% 0.6 %; LYMPH % 20.6 %; LYMPH ABS # 1.01 K/uL (1.2-3.4); MEAN CELL VOLUME 87.3 fL (80-100); MEAN CORPUSCULAR HEMOGLOBIN 27.7 pg (25-34); MEAN CORPUSCULAR HGB CONC 31.7 g/dl (32-36); MEAN PLATELET VOLUME 9.1 fL (7.4-10.4); MONO % 3.3 %; NEUT % 75.3 %; PLATELET COUNT 317 K/uL (130-400); RED BLOOD COUNT 3.79 M/uL (4.2-5.4)
[2016-10-22 06:55] LABS: ALT/SGPT 32 U/L (12-78); BLOOD UREA NITROGEN 18 mg/dl (7-18); BUN/CREATININE RATIO 18.1 (10-20); CALCIUM 8.5 mg/dl (8.5-10.1); CARBON DIOXIDE 29 mmol/L (21-32); CHLORIDE 103 mmol/L (98-107); CREATININE 0.97 mg/dl (0.60-1.20); GLUCOSE 220 mg/dl (70-99); SODIUM 138 mmol/L (136-145)
[2016-10-22 07:02] LABS: ALB/GLOB RATIO 0.8 (0.9-2); ALKALINE PHOSPHATASE 70 U/L (45-117)
[2016-10-22] MEDS: ASPIRIN 81 MG ECTAB PO SCH (08:11)
[2016-10-22] MEDS: PRAMIPEXOLE DIHYDROCHLORIDE 0.5 MG TAB PO SCH ×3 (08:11→21:22)
[2016-10-22] MEDS: MONTELUKAST SOD 10 MG TAB PO SCH (08:11)
[2016-10-22] MEDS: ATORVASTATIN 10 MG TAB PO SCH (08:11)
[2016-10-22] MEDS: FLUTICASONE PROPIONATE NA SPR 16 GM BTL NAE SCH ×2 (08:11→21:22)
[2016-10-22] MEDS: CYANOCOBALAMIN 500 MCG TAB (VIT B-12) PO SCH (08:12)
[2016-10-22] MEDS: GABAPENTIN 100 MG CAP PO SCH ×3 (08:12→21:22)
[2016-10-22] MEDS: AMLODIPINE BESYLATE 5 MG TAB PO SCH (08:12)
[2016-10-22] MEDS: MAGNESIUM OXIDE 400 MG TAB PO SCH (08:13)
[2016-10-22] MEDS: PANTOprazole SOD 40 MG TAB PO SCH (08:13)
[2016-10-22] MEDS: POTASSIUM CHLORIDE 10 MEQ TABCR PO SCH (08:13)
[2016-10-22] MEDS: FUROSEMIDE 20 MG TAB PO SCH (08:13)
[2016-10-22] MEDS: INSULIN GLARGINE SOLOSTAR 100 UNITS/ML 3 ML PEN SC SCH ×2 (08:15→21:25)
[2016-10-22 08:35] LABS: MAGNESIUM 2.7 mg/dl (1.8-2.4)
[2016-10-22 08:47] LABS: ALT/SGPT 31 U/L (12-78); BLOOD UREA NITROGEN 17 mg/dl (7-18); BUN/CREATININE RATIO 17.2 (10-20); CALCIUM 8.5 mg/dl (8.5-10.1); CARBON DIOXIDE 29 mmol/L (21-32); CHLORIDE 103 mmol/L (98-107); GLUCOSE 192 mg/dl (70-99); POTASSIUM 4.2 mmol/L (3.5-5.1); SODIUM 139 mmol/L (136-145)
[2016-10-22 08:48] LABS: POTASSIUM 4.4 mmol/L (3.5-5.1)
[2016-10-22 08:56] LABS: ALB/GLOB RATIO 0.8 (0.9-2); ALKALINE PHOSPHATASE 73 U/L (45-117); AST/SGOT 10 U/L (15-37); PREALBUMIN 34.8 mg/dl (20-40); THYROID STIMULATING HORMONE 0.182 uIu/ml (0.300-4.500)
--- NOTE | 2016-10-22 12:09 | Pharmacy Progress Note ---
Glycemic Control Progress Note Date of Service Oct 22, 2016. Scope Glycemic Pharmacist consulted for glycemic control to write orders per [facility] inpatient glycemic control protocol. Objective Accuchecks BSG (last 24hrs): Test 10/21/16 15:24 10/21/16 20:07 10/22/16 00:11 10/22/16 05:39 Bedside Glucose 169 mg/dl (70-90) 261 mg/dl (70-90) 203 mg/dl (70-90) Random Glucose 220 mg/dl (70-99) Test 10/22/16 06:08 10/22/16 07:54 10/22/16 11:27 Bedside Glucose 231 mg/dl (70-90) 160 mg/dl (70-90) Random Glucose 192 mg/dl (70-99) Recent Pertinent Medications Basal/bolus regimen Outpatient Anti-Diabetic Meds Oral Agents Assessment & Plan ASSESSMENT: * 61 yo F known to glycemic service from prior admissions * Pt continues on high dose IV steroids (solumedrol 60 mg IV every 6 hours) * BSGs climbed to 261 last night but have trended down nicely to 161 at lunch today * Patient currently NPO which complicates my original plan * Continue basal insulin but change to scale dosing as BSG trend not as easy to predict with NPO status * Continue correctional insulin Q6 hrs and if diet advanced, aggressive carb ratio will be added * ADA & AACE recommend a goal blood sugar range 140-180 mg/dl for the majority of critically ill & non-critically ill patients. However, more stringent targets may be selected in individual cases. Tighten to 110-140 mg/dL based on prior admissions. PLAN FOR INPATIENT GLYCEMIC CONTROL: * Hold outpatient oral diabetes medications * Basal insulin with LANTUS SQ BID based on BSG * If <140: 10 units * If 141-180: 20 units * If >180: 28 units * Correctional Insulin with NOVOLOG per scale Q6 * Goal Range: Low 110 mg/dL - High 140 mg/dL * Correction Factor: 15 mg/dL/unit * Nutritional / Prandial insulin per carb ratio of 1 unit per 5 grams CHO consumed * Please note that the plan above was derived based on current level of insulin resistance and hospital stress. These recommendations are appropriate for inpatient admission only. Plan of care upon discharge will need to be reassessed to avoid potential outpatient hypo/hyperglycemia. Thank you.
[2016-10-22] MEDS: BENZONATATE 100MG CAP PO PRN (12:47)
--- NOTE | 2016-10-22 13:55 | ECHOCARDIOGRAM REPORT ---
*NOTICE TO RECEIVING REPUBLICAN AGENCY This information is strictly Confidential and protected under [place] law. [place] law prohibits you from making any further disclosure of this information unless further disclosure is expressly permitted by the written consent of the person to whom it pertains or is authorized by law. A general authorization for the release of medical or other information is not sufficient for this purpose. Hospital accepts no responsibility if the information is made available to any other person, INCLUDING THE PATIENT. Interpretation Summary * Name: PETRA POWERS Study Date: 10/22/2016 07:20 AM BP: 118/70 mmHg * Patient Location: C.2T\S\S233\S\1 HR: 98 * : 1955 (M/d/yyyy) Gender: Female Height: 63 in * Age: 61 yrs Ethnicity: AA Weight: 247 lb * Ordering Physician: Adrienne Burgos * Referring Physician: Self, Referred * Performed By: Swapnil Tan RDCS * * Reason For Study: Shortness of breath * BSA: 2.1 m2 * -- Conclusions -- * The left ventricle is normal in size. * There is mild concentric left ventricular hypertrophy. * The left ventricular wall motion is normal. * The left ventricle is hyperdynamic. * Ejection Fraction = 65-70%. * Grade I diastolic dysfunction, (abnormal relaxation pattern). * There is mild mitral regurgitation. * There is trace tricuspid regurgitation. * Doppler findings do not suggest pulmonary hypertension. Procedure Details * A complete two-dimensional transthoracic echocardiogram was performed (2D, M-mode, Doppler and color flow Doppler). * The study was technically adequate. Left Ventricle * The left ventricle is normal in size. * There is mild concentric left ventricular hypertrophy. * The left ventricle is hyperdynamic. * Ejection Fraction = 65-70%. * The left ventricular wall motion is normal. Right Ventricle * The right ventricle is normal in size and function. Atria * The left atrial size is normal. * Right atrial size is normal. * No ASD detected; PFO is not assessed. Mitral Valve * The mitral valve anatomy is normal. * There is no mitral valve stenosis. * There is mild mitral regurgitation. Tricuspid Valve * The tricuspid valve anatomy is normal. * There is no tricuspid stenosis. * There is trace tricuspid regurgitation. * Doppler findings do not suggest pulmonary hypertension. Aortic Valve * The aortic valve is trileaflet. * No hemodynamically significant valvular aortic stenosis. * No aortic regurgitation is present. Pulmonic Valve * The pulmonic valve is not well visualized. Great Vessels * The aortic root is normal size. Pericardium/Pleural * There is no pericardial effusion. Great Vessels * Normal inferior vena cava diameter and respiratory variation suggests normal central venous pressure. Left Ventricular Diastolic Function * Grade I diastolic dysfunction, (abnormal relaxation pattern). MMode 2D Measurements and Calculations IVSd 1.4 cm IVSs 1.7 cm LVIDd 4.2 cm LVIDs 2.8 cm LVPWd 0.99 cm LVPWs 1.4 cm IVS/LVPW 1.4 FS 34.1 % EDV(Teich) 79.3 ml ESV(Teich) 29.0 ml EF(Teich) 63.4 % EDV(cubed) 75.0 ml ESV(cubed) 21.4 ml EF(cubed) 71.4 % % IVS thick 20.8 % % LVPW thick 43.9 % LV mass(C)d 176.2 grams LV mass(C)dI 83.3 grams/m\S\2 LV mass(C)s 151.3 grams LV mass(C)sI 71.5 grams/m\S\2 SV(Teich) 50.3 ml SI(Teich) 23.8 ml/m\S\2 SV(cubed) 53.5 ml SI(cubed) 25.3 ml/m\S\2 Ao root diam 2.6 cm Ao root area 5.4 cm\S\2 ACS 1.8 cm LA dimension 3.2 cm asc Aorta Diam 3.0 cm LA/Ao 1.2 LVOT diam 2.0 cm LVOT area 3.1 cm\S\2 LVAd ap4 25.4 cm\S\2 LVLd ap4 8.0 cm EDV(MOD-sp4) 68.0 ml LVAs ap4 15.7 cm\S\2 LVLs ap4 7.3 cm ESV(MOD-sp4) 28.0 ml EF(MOD-sp4) 58.8 % LVAd ap2 25.2 cm\S\2 LVLd ap2 8.6 cm EDV(MOD-sp2) 62.0 ml LVAs ap2 13.5 cm\S\2 LVLs ap2 7.1 cm ESV(MOD-sp2) 23.0 ml EF(MOD-sp2) 62.9 % SV(MOD-sp4) 40.0 ml SI(MOD-sp4) 18.9 ml/m\S\2 SV(MOD-sp2) 39.0 ml SI(MOD-sp2) 18.4 ml/m\S\2 Doppler Measurements and Calculations MV E max chioma 90.1 cm/sec MV A max chioma 121.5 cm/sec MV E/A 0.74 MV dec time 0.17 sec Ao V2 max 211.2 cm/sec Ao max PG 17.9 mmHg Ao max PG (full) 13.4 mmHg Ao V2 mean 142.2 cm/sec Ao mean PG 9.4 mmHg Ao mean PG (full) 7.0 mmHg Ao V2 VTI 38.6 cm KAREN(I,A) 1.5 cm\S\2 KAREN(I,D) 1.5 cm\S\2 KAREN(V,A) 1.5 cm\S\2 KAREN(V,D) 1.5 cm\S\2 LV V1 max PG 4.5 mmHg LV V1 mean PG 2.4 mmHg LV V1 max 105.8 cm/sec LV V1 mean 73.1 cm/sec LV V1 VTI 19.3 cm SV(Ao) 207.3 ml SI(Ao) 98.0 ml/m\S\2 SV(LVOT) 59.4 ml SI(LVOT) 28.1 ml/m\S\2 PA V2 max 173.7 cm/sec PA max PG 12.1 mmHg
--- NOTE | 2016-10-22 16:48 | Pulmonology Progress Note ---
Pulmonary Progress Note Date of Service Oct 22, 2016. Attending Dr. Solis Subjective Patient notes overall improvement but continues to have respiratory insufficiency even at rest. Objective Patient continues on BiPAP but is not using accessory muscles at this time is able to speak but notably tachypneic during our conversation: I/Os: -2.1L On BiPAP with FiO2 rate of 30% Respiratory: Decreased breath sounds but no notable wheezing on expiration Cardiac: S1 and S2 distant heart sounds but no murmurs rubs or gallops appreciated mildly tachycardic Abdomen: Positive bowel sounds soft nontender Extremities: 2-3+ pitting edema lower extremities and gravity dependent regions Pro-calcitonin: < 0.05 WBC count gratis at 7K Chest x-ray no signs of diffuse infiltrative process suggesting pneumonia Assessment & Plan 61 y/o female admitted with acute on chronic respiratory insufficiency: 1) Respiratory Insufiency: At this time the patient does show signs of increasing overall respiratory status and I will take her off the nothing by mouth diet and place her on normal R diabetic/low sodium diet and place her back on BiPAP is much as tolerated. She is still very tentative and should continue to be monitored at this time. 2) COPD/ACOS: Continue current medical regimen with Solu-Medrol, nebulizers, BiPAP 3) Hypoxemia/Hypercapnia: At the time of the patient's ABG the ED report suggest she was on BiPAP and an FiO2 of 15L not 30% which would make her A-a gradient 405mmHg. The patient's PaCO2 was also 54 at that time also suggesting she is suffering from hypercapnic/hypoxic respiratory failure. To add on to this the patient is 6Kg or 26lbs heavier than her last d/c date. Her presentation, clinical history, labs, PFTs and cardiac echo all suggest this patient not only has ACOS but also some pulmonary hypertension most likely groups II and III. This will require future work-up with a right heart catheterization and V/Q scans. I don't suggest starting full anti-coagulation at this time as the patient has had many similar attacks and her previous VTE work-ups showed no signs of acute pulmonary emboli but future evaluation for CTEPH is warranted. 4) Pulmonary Hypertension: Patient most likely has group to group 3 pulmonary hypertension and has responded well to diuresis of 2.1 L. Suggest we continue to diuresis and monitor kidney function at this time. 5) Rhinitis: With the change in the weather the patient's allergic signs and symptoms appear to have flared so the Solu-Medrol and continuation of her Singular and Flonase should help. 6) Issues: This patient's GERD, rhinnitis, obesity and poor compliance all add to her continued respiratory exacerbations and needed to be worked on in the outpatient setting. 7) ID: At this time I will discontinue antibiotics as the patient's chest x-ray , serum studies/pro-calcitonin white blood cell count as well as clinical history did not sided chest pneumonia and/or acute bronchitis. Data Medications: Current Inpatient Medications Medications (Trade) Dose Ordered Sig/Allison Route Start Time Stop Time Status Last Admin Dose Admin Enoxaparin Sodium (Lovenox Inj) 40 mg HS SC 10/21/16 21:00 11/20/16 20:59 10/21/16 21:12 40 MG Acetaminophen (Tylenol Tab) 650 mg Q4H PRN PO 10/21/16 14:30 11/20/16 14:29 10/22/16 12:51 650 MG Magnesium Hydroxide (Milk Of Magnesia Susp) 30 ml Q12H PRN PO 10/21/16 14:30 11/20/16 14:29 Ondansetron HCl (Zofran Inj) 4 mg Q6H PRN IV 10/21/16 14:30 11/20/16 14:29 Glucose (Glucose 40% Gel) 15-30 GRAMS 15 GRAMS... UD PRN PO 10/21/16 14:30 11/20/16 14:29 Glucose (Glucose Chew Tab) 4-8 Tablets 4 Tabl... UD PRN PO 10/21/16 14:30 11/20/16 14:29 Dextrose (Dextrose 50% 50ML Syringe) 25-50ML OF 50% DW IV FOR... UD PRN IV 10/21/16 14:30 11/20/16 14:29 Glucagon (Glucagon Inj) 1 mg UD PRN SQ 10/21/16 14:30 11/20/16 14:29 Miscellaneous Information (Consult Glycemic Management Pharmacy) 1 ea UD PRN N/A 10/21/16 14:30 11/20/16 14:29 Albuterol (Ventolin Hfa Inhaler) 2 puffs Q4H PRN INH 10/21/16 14:45 11/20/16 14:44 Amitriptyline HCl (Elavil Tab) 10 mg HS PO 10/21/16 21:00 11/20/16 20:59 10/21/16 21:12 10 MG Amlodipine Besylate (Norvasc Tab) 5 mg DAILY PO 10/22/16 09:00 11/21/16 08:59 10/22/16 08:12 5 MG Aspirin (Ecotrin Tab) 81 mg QAM PO 10/22/16 09:00 11/21/16 08:59 10/22/16 08:11 81 MG Atorvastatin Calcium (Lipitor Tab) 10 mg QAM PO 10/22/16 09:00 11/21/16 08:59 10/22/16 08:11 10 MG Benzonatate (Tessalon Perles Cap) 100 mg TID PRN PO 10/21/16 14:45 11/20/16 14:44 10/22/16 12:47 100 MG Cyclobenzaprine HCl (Flexeril Tab) 10 mg BID PRN PO 10/21/16 14:45 11/20/16 14:44 10/21/16 21:41 10 MG Fluticasone Propionate (Flonase Nasal [place]) 2 sprays BID LIDYA 10/21/16 21:00 11/20/16 20:59 10/22/16 08:11 2 SPRAYS Furosemide (Lasix Tab) 20 mg QAM PO 10/22/16 09:00 11/21/16 08:59 10/22/16 08:13 20 MG Gabapentin (Neurontin Cap) 100 mg TID PO 10/21/16 21:00 11/20/16 20:59 10/22/16 08:12 100 MG Magnesium Oxide (Mag-Ox Tab) 400 mg DAILY PO 10/22/16 09:00 11/21/16 08:59 10/22/16 08:13 400 MG Montelukast Sodium (Singulair Tab) 10 mg QAM PO 10/22/16 09:00 11/21/16 08:59 10/22/16 08:11 10 MG Pantoprazole Sodium (Protonix Tab) 40 mg QAM PO 10/22/16 09:00 11/21/16 08:59 10/22/16 08:13 40 MG Pramipexole Dihydrochloride (miraPEX TAB) 0.5 mg TID PO 10/21/16 21:00 11/20/16 20:59 10/22/16 08:11 0.5 MG Ranitidine HCl (zANTac TAB) 300 mg HS PO 10/21/16 21:00 11/20/16 20:59 10/21/16 21:12 300 MG Zolpidem Tartrate (Ambien Tab) 5 mg HS PRN PO 10/21/16 14:45 11/20/16 14:44 10/21/16 21:40 5 MG Cyanocobalamin (Vitamin B-12 Tab) 1,000 mcg DAILY PO 10/22/16 09:00 11/21/16 08:59 10/22/16 08:12 1,000 MCG Potassium Chloride (Klor-Con M10) 10 meq DAILY PO 10/22/16 09:00 11/21/16 08:59 10/22/16 08:13 10 MEQ Methylprednisolone Sodium Succinate 60 mg/Syringe 0.96 ml @ 1.5 mls/min Q6 IV 10/22/16 00:00 11/21/16 00:00 10/22/16 12:16 1.5 MLS/MIN Levalbuterol (Xopenex 1.25MG/ 3ML Neb) 1.25 mg Q4 PRN INH 10/21/16 18:00 11/20/16 17:59 Levofloxacin (Levaquin Tab) 750 mg DAILY@2000 PO 10/21/16 20:00 10/28/16 19:59 10/21/16 21:12 750 MG Ipratropium [place] (Atrovent 0.02% 0.5MG/2.5ML Neb) 0.5 mg Q6R INH 10/21/16 21:00 11/20/16 20:59 10/22/16 13:51 0.5 MG Levalbuterol (Xopenex 1.25MG/ 0.5ML Neb) 1.25 mg Q6R INH 10/21/16 21:00 11/20/16 20:59 10/22/16 13:51 1.25 MG Insulin Aspart (novoLOG ASPART) SLIDING SCALE If C... Q6 SC 10/22/16 00:00 11/20/16 15:59 8/26/17 12:46 2 UNITS Insulin Glargine (Lantus Solostar Pen) SEE PROTOCOL BID SC 10/22/16 21:00 11/21/16 20:59 I & O: 24-Hour Column 10/23/16 08:00 Output Total 700 ml Balance -700 ml Vital Signs: Date Time Temp Pulse Resp B/P (MAP) Pulse Ox O2 Delivery O2 Flow Rate FiO2 10/22/16 15:19 36.3 104 20 153/77 (102) 100 BiPAP 10/22/16 13:52 104 97 24 10/22/16 13:51 104 17 97 BiPAP/CPAP 24 10/22/16 12:00 99 12.0 30 10/22/16 11:43 36.6 100 21 131/74 (93) 98 BiPAP 10/22/16 08:00 99 12.0 30 10/22/16 07:44 97 98 30 10/22/16 07:43 97 20 98 BiPAP/CPAP 30 10/22/16 07:01 36.7 103 20 126/80 (95) 96 BiPAP 10/22/16 04:00 98 12.0 30 10/22/16 03:15 36.4 96 20 118/70 (86) 98 BiPAP 10/22/16 01:45 97 17 100 BiPAP/CPAP 30 10/22/16 01:45 97 100 30 10/22/16 00:00 36.6 103 20 131/78 (95) 99 BiPAP 30 10/22/16 00:00 98 12.0 30 10/21/16 22:59 102 100 30 10/21/16 22:58 102 22 100 BiPAP/CPAP 30 10/21/16 20:00 98 12.0 30 10/21/16 19:07 36.3 112 21 135/82 (99) 99 BiPAP 10/21/16 19:06 108 25 98 BiPAP/CPAP 30 10/21/16 19:05 109 98 30 Laboratory Results: Last 24 Hours Test 10/21/16 17:51 10/21/16 20:07 10/22/16 00:11 10/22/16 05:39 Troponin I < 0.015 ng/ml Pro-B-Type Natriuretic Peptide < 5 pg/ml Procalcitonin < 0.05 ng/ml Bedside Glucose 261 mg/dl 203 mg/dl White Blood Count 4.90 K/uL Red Blood Count 3.79 M/uL Hemoglobin 10.5 g/dL Hematocrit 33.1 % Mean Corpuscular Volume 87.3 fL Mean Corpuscular Hemoglobin 27.7 pg Mean Corpuscular Hemoglobin Concent 31.7 g/dl Platelet Count 317 K/uL Mean Platelet Volume 9.1 fL Neutrophils (%) (Auto) 75.3 % Lymphocytes (%) (Auto) 20.6 % Monocytes (%) (Auto) 3.3 % Eosinophils (%) (Auto) 0.0 % Basophils (%) (Auto) 0.2 % Neutrophils # (Auto) 3.69 K/uL Lymphocytes # (Auto) 1.01 K/uL Monocytes # (Auto) 0.16 K/uL Eosinophils # (Auto) 0.00 K/uL Basophils # (Auto) 0.01 K/uL RDW Standard Deviation 50.5 fL RDW Coefficient of Variation 15.7 % Immature Granulocyte % (Auto) 0.6 % Immature Granulocyte # (Auto) 0.03 K/uL Sodium Level 138 mmol/L Potassium Level mmol/L Chloride Level 103 mmol/L Carbon Dioxide Level 29 mmol/L Anion Gap 6.0 mmol/L Blood Urea Nitrogen 18 mg/dl Creatinine 0.97 mg/dl Est Creatinine Clear Calc Drug Dose 72.6 ml/min Estimated GFR () 72.5 Estimated GFR (Non- 62.6 BUN/Creatinine Ratio 18.1 Random Glucose 220 mg/dl Calcium Level 8.5 mg/dl Magnesium Level mg/dl Total Bilirubin 0.2 mg/dl Aspartate Amino Transf (AST/SGOT) U/L Alanine Aminotransferase (ALT/SGPT) 32 U/L Alkaline Phosphatase 70 U/L Total Protein 6.8 gm/dl Albumin 3.0 gm/dl Globulin 3.8 gm/dl Albumin/Globulin Ratio 0.8 Test 10/22/16 06:08 10/22/16 07:54 10/22/16 11:27 Bedside Glucose 231 mg/dl 160 mg/dl Sodium Level 139 mmol/L Potassium Level 4.4 mmol/L Chloride Level 103 mmol/L Carbon Dioxide Level 29 mmol/L Anion Gap 7.0 mmol/L Blood Urea Nitrogen 17 mg/dl Creatinine 1.00 mg/dl Est Creatinine Clear Calc Drug Dose 70.2 ml/min Estimated GFR () 69.9 Estimated GFR (Non- 60.3 BUN/Creatinine Ratio 17.2 Random Glucose 192 mg/dl Calcium Level 8.5 mg/dl Magnesium Level 2.7 mg/dl Total Bilirubin 0.3 mg/dl Direct Bilirubin < 0.1 mg/dl Aspartate Amino Transf (AST/SGOT) 9 U/L Alanine Aminotransferase (ALT/SGPT) 31 U/L Alkaline Phosphatase 73 U/L Total Protein 6.8 gm/dl Albumin 3.1 gm/dl Globulin 3.7 gm/dl Albumin/Globulin Ratio 0.8 Prealbumin 34.8 mg/dl Thyroid Stimulating Hormone (TSH) 0.182 uIu/ml
--- NOTE | 2016-10-22 17:13 | Progress Note ---
Medicine Progress Note Date & Time of Visit: Oct 22, 2016 at 17:10. Subjective seen resting in bed, wearing bipap alert, in good spirits, speaks in sentences with no effort states she feels improved compared to yesterday has dry cough, no chest pain denies other symptoms Objective Last 8 Hrs Date Time Temp Pulse Resp B/P (MAP) Pulse Ox O2 Delivery O2 Flow Rate FiO2 10/22/16 15:19 36.3 104 20 153/77 (102) 100 BiPAP 10/22/16 13:52 104 97 24 10/22/16 13:51 104 17 97 BiPAP/CPAP 24 10/22/16 12:00 99 12.0 30 10/22/16 11:43 36.6 100 21 131/74 (93) 98 BiPAP Physical Exam: General- oriented x 3, not in distress, speaks in sentences with no effort Eyes- EOMI, anicteric Neck- supple, no JVD, no adenopathy Lungs- bilateral scattered wheezing, no rales Heart- regular rhythm; no murmur, normal rate Abdomen- normal bowel sounds, soft, nontender Extremities- no pretibial edema, no calf tenderness Neuro- alert, oriented x 3; no gross deficits Skin- warm & dry Laboratory Results: Last 24 Hours Test 10/21/16 17:51 10/21/16 20:07 10/22/16 00:11 10/22/16 05:39 Troponin I < 0.015 ng/ml Pro-B-Type Natriuretic Peptide < 5 pg/ml Procalcitonin < 0.05 ng/ml Bedside Glucose 261 mg/dl 203 mg/dl White Blood Count 4.90 K/uL Red Blood Count 3.79 M/uL Hemoglobin 10.5 g/dL Hematocrit 33.1 % Mean Corpuscular Volume 87.3 fL Mean Corpuscular Hemoglobin 27.7 pg Mean Corpuscular Hemoglobin Concent 31.7 g/dl Platelet Count 317 K/uL Mean Platelet Volume 9.1 fL Neutrophils (%) (Auto) 75.3 % Lymphocytes (%) (Auto) 20.6 % Monocytes (%) (Auto) 3.3 % Eosinophils (%) (Auto) 0.0 % Basophils (%) (Auto) 0.2 % Neutrophils # (Auto) 3.69 K/uL Lymphocytes # (Auto) 1.01 K/uL Monocytes # (Auto) 0.16 K/uL Eosinophils # (Auto) 0.00 K/uL Basophils # (Auto) 0.01 K/uL RDW Standard Deviation 50.5 fL RDW Coefficient of Variation 15.7 % Immature Granulocyte % (Auto) 0.6 % Immature Granulocyte # (Auto) 0.03 K/uL Sodium Level 138 mmol/L Potassium Level mmol/L Chloride Level 103 mmol/L Carbon Dioxide Level 29 mmol/L Anion Gap 6.0 mmol/L Blood Urea Nitrogen 18 mg/dl Creatinine 0.97 mg/dl Est Creatinine Clear Calc Drug Dose 72.6 ml/min Estimated GFR () 72.5 Estimated GFR (Non- 62.6 BUN/Creatinine Ratio 18.1 Random Glucose 220 mg/dl Calcium Level 8.5 mg/dl Magnesium Level mg/dl Total Bilirubin 0.2 mg/dl Aspartate Amino Transf (AST/SGOT) U/L Alanine Aminotransferase (ALT/SGPT) 32 U/L Alkaline Phosphatase 70 U/L Total Protein 6.8 gm/dl Albumin 3.0 gm/dl Globulin 3.8 gm/dl Albumin/Globulin Ratio 0.8 Test 10/22/16 06:08 10/22/16 07:54 10/22/16 11:27 10/22/16 16:36 Bedside Glucose 231 mg/dl 160 mg/dl 154 mg/dl Sodium Level 139 mmol/L Potassium Level 4.4 mmol/L Chloride Level 103 mmol/L Carbon Dioxide Level 29 mmol/L Anion Gap 7.0 mmol/L Blood Urea Nitrogen 17 mg/dl Creatinine 1.00 mg/dl Est Creatinine Clear Calc Drug Dose 70.2 ml/min Estimated GFR () 69.9 Estimated GFR (Non- 60.3 BUN/Creatinine Ratio 17.2 Random Glucose 192 mg/dl Calcium Level 8.5 mg/dl Magnesium Level 2.7 mg/dl Total Bilirubin 0.3 mg/dl Direct Bilirubin < 0.1 mg/dl Aspartate Amino Transf (AST/SGOT) 9 U/L Alanine Aminotransferase (ALT/SGPT) 31 U/L Alkaline Phosphatase 73 U/L Total Protein 6.8 gm/dl Albumin 3.1 gm/dl Globulin 3.7 gm/dl Albumin/Globulin Ratio 0.8 Prealbumin 34.8 mg/dl Thyroid Stimulating Hormone (TSH) 0.182 uIu/ml Assessment & Plan This is a 61yo F with a PMH of COPD/asthma, HTN, DM II, and other problems noted below who presents in respiratory distress that started this AM. Acute Hypoxic Respiratory Failure secondary to COPD Exacerbation - Presented on CPAP, after 1 albuterol treatment - Started on Bipap in ED and given neb treatment for 1 hr -- improving -- weaned off Bipap -- continue Solumedrol, Nebs, Levaquin -- appreciate Pulm Consult DM II: -Hgb alc of 6.9 09/12 -Well controlled normally but glycemic consult 2/2 steroids -Held home meds -SSI, per pharm adjustments -BG checks AC HS HTN: -Stable -Continue amlodipine, lasix -Monitor GERD -Continue PPI, Ranitidine DVT Ppx: Lovenox Code status: FULL PCP: Misty Dispo: Plan to return home once medically stable Current Inpatient Medications: Current Inpatient Medications Medications (Trade) Dose Ordered Sig/[place]ison Route Start Time Stop Time Status Last Admin Dose Admin Enoxaparin Sodium (Lovenox Inj) 40 mg HS SC 10/21/16 21:00 11/20/16 20:59 10/21/16 21:12 40 MG Acetaminophen (Tylenol Tab) 650 mg Q4H PRN PO 10/21/16 14:30 11/20/16 14:29 10/22/16 12:51 650 MG Magnesium Hydroxide (Milk Of Magnesia Susp) 30 ml Q12H PRN PO 10/21/16 14:30 11/20/16 14:29 Ondansetron HCl (Zofran Inj) 4 mg Q6H PRN IV 10/21/16 14:30 11/20/16 14:29 Glucose (Glucose 40% Gel) 15-30 GRAMS 15 GRAMS... UD PRN PO 10/21/16 14:30 11/20/16 14:29 Glucose (Glucose Chew Tab) 4-8 Tablets 4 Tabl... UD PRN PO 10/21/16 14:30 11/20/16 14:29 Dextrose (Dextrose 50% 50ML Syringe) 25-50ML OF 50% DW IV FOR... UD PRN IV 10/21/16 14:30 11/20/16 14:29 Glucagon (Glucagon Inj) 1 mg UD PRN SQ 10/21/16 14:30 11/20/16 14:29 Miscellaneous Information (Consult Glycemic Management Pharmacy) 1 ea UD PRN N/A 10/21/16 14:30 11/20/16 14:29 Albuterol (Ventolin Hfa Inhaler) 2 puffs Q4H PRN INH 10/21/16 14:45 11/20/16 14:44 Amitriptyline HCl (Elavil Tab) 10 mg HS PO 10/21/16 21:00 11/20/16 20:59 10/21/16 21:12 10 MG Amlodipine Besylate (Norvasc Tab) 5 mg DAILY PO 10/22/16 09:00 11/21/16 08:59 10/22/16 08:12 5 MG Aspirin (Ecotrin Tab) 81 mg QAM PO 10/22/16 09:00 11/21/16 08:59 10/22/16 08:11 81 MG Atorvastatin Calcium (Lipitor Tab) 10 mg QAM PO 10/22/16 09:00 11/21/16 08:59 10/22/16 08:11 10 MG Benzonatate (Tessalon Perles Cap) 100 mg TID PRN PO 10/21/16 14:45 11/20/16 14:44 10/22/16 12:47 100 MG Cyclobenzaprine HCl (Flexeril Tab) 10 mg BID PRN PO 10/21/16 14:45 11/20/16 14:44 10/21/16 21:41 10 MG Fluticasone Propionate (Flonase Nasal [place]) 2 sprays BID LIDYA 10/21/16 21:00 11/20/16 20:59 10/22/16 08:11 2 SPRAYS Furosemide (Lasix Tab) 20 mg QAM PO 10/22/16 09:00 11/21/16 08:59 10/22/16 08:13 20 MG Gabapentin (Neurontin Cap) 100 mg TID PO 10/21/16 21:00 11/20/16 20:59 10/22/16 08:12 100 MG Magnesium Oxide (Mag-Ox Tab) 400 mg DAILY PO 10/22/16 09:00 11/21/16 08:59 10/22/16 08:13 400 MG Montelukast Sodium (Singulair Tab) 10 mg QAM PO 10/22/16 09:00 9/25/17 08:59 10/22/16 08:11 10 MG Pantoprazole Sodium (Protonix Tab) 40 mg QAM PO 10/22/16 09:00 11/21/16 08:59 10/22/16 08:13 40 MG Pramipexole Dihydrochloride (miraPEX TAB) 0.5 mg TID PO 10/21/16 21:00 11/20/16 20:59 10/22/16 08:11 0.5 MG Ranitidine HCl (zANTac TAB) 300 mg HS PO 10/21/16 21:00 11/20/16 20:59 10/21/16 21:12 300 MG Zolpidem Tartrate (Ambien Tab) 5 mg HS PRN PO 10/21/16 14:45 11/20/16 14:44 10/21/16 21:40 5 MG Cyanocobalamin (Vitamin B-12 Tab) 1,000 mcg DAILY PO 10/22/16 09:00 11/21/16 08:59 10/22/16 08:12 1,000 MCG Potassium Chloride (Klor-Con M10) 10 meq DAILY PO 10/22/16 09:00 11/21/16 08:59 10/22/16 08:13 10 MEQ Methylprednisolone Sodium Succinate 60 mg/Syringe 0.96 ml @ 1.5 mls/min Q6 IV 10/22/16 00:00 11/21/16 00:00 10/22/16 12:16 1.5 MLS/MIN Levalbuterol (Xopenex 1.25MG/ 3ML Neb) 1.25 mg Q4 PRN INH 10/21/16 18:00 11/20/16 17:59 Ipratropium [place] (Atrovent 0.02% 0.5MG/2.5ML Neb) 0.5 mg Q6R INH 10/21/16 21:00 11/20/16 20:59 10/22/16 13:51 0.5 MG Levalbuterol (Xopenex 1.25MG/ 0.5ML Neb) 1.25 mg Q6R INH 10/21/16 21:00 11/20/16 20:59 10/22/16 13:51 1.25 MG Insulin Aspart (novoLOG ASPART) SLIDING SCALE If C... Q6 SC 10/22/16 00:00 11/20/16 15:59 10/22/16 12:46 2 UNITS Insulin Glargine (Lantus Solostar Pen) SEE PROTOCOL BID SC 10/22/16 21:00 11/21/16 20:59
[2016-10-22] MEDS: AMITRIPTYLINE HCL 10 MG TAB PO SCH (21:22)
[2016-10-22] MEDS: RANITIDINE HCL 150 MG TAB PO SCH (21:22)
[2016-10-22] MEDS: ENOXAPARIN 40 MG/0.4 ML SYR SC SCH (21:24)
[2016-10-22] MEDS: ZOLPIDEM TARTRATE 5 MG TAB PO PRN (22:14)
[2016-10-22] MEDS ORDERED: NURSING VERBAL MED ORDER ONE (22:30)
[2016-10-23] VITALS (12 sets, daily range): BP systolic 143–165; BP diastolic 55–93; PULSE 91–119; TEMP 36.6–37; O2SAT 93–99
[2016-10-23] MEDS: LEVALBUTEROL 1.25MG/0.5ML NEB INH SCH ×4 (02:10→19:44)
[2016-10-23] MEDS: IPRATROPIUM BROMIDE NEB SOLN 0.02% 2.5 ML VIAL INH SCH ×4 (02:10→19:44)
[2016-10-23] MEDS: METHYLPREDNISOLONE IV 60 MG in SYRINGE 0 ML IV SCH ×4 (05:55→23:47)
[2016-10-23] MEDS: MONTELUKAST SOD 10 MG TAB PO SCH (08:31)
[2016-10-23] MEDS: GABAPENTIN 100 MG CAP PO SCH ×3 (08:31→19:52)
[2016-10-23] MEDS: PANTOprazole SOD 40 MG TAB PO SCH (08:31)
[2016-10-23] MEDS: ATORVASTATIN 10 MG TAB PO SCH (08:32)
[2016-10-23] MEDS: CYANOCOBALAMIN 500 MCG TAB (VIT B-12) PO SCH (08:32)
[2016-10-23] MEDS: POTASSIUM CHLORIDE 10 MEQ TABCR PO SCH (08:32)
[2016-10-23] MEDS: AMLODIPINE BESYLATE 5 MG TAB PO SCH (08:32)
[2016-10-23] MEDS: MAGNESIUM OXIDE 400 MG TAB PO SCH (08:32)
[2016-10-23] MEDS: ASPIRIN 81 MG ECTAB PO SCH (08:32)
[2016-10-23] MEDS: FUROSEMIDE 20 MG TAB PO SCH (08:33)
[2016-10-23] MEDS: PRAMIPEXOLE DIHYDROCHLORIDE 0.5 MG TAB PO SCH ×3 (08:33→19:51)
[2016-10-23] MEDS: FLUTICASONE PROPIONATE NA SPR 16 GM BTL NAE SCH ×2 (08:33→19:51)
[2016-10-23] MEDS: CYCLOBENZAPRINE HCL 10 MG TAB PO PRN (08:35)
[2016-10-23] MEDS: BENZONATATE 100MG CAP PO PRN ×2 (08:36→19:51)
[2016-10-23] MEDS: INSULIN ASPART 100 UNITS/ML 3 ML PEN SC SCH ×4 (08:39→20:45)
[2016-10-23] MEDS: INSULIN GLARGINE SOLOSTAR 100 UNITS/ML 3 ML PEN SC SCH ×2 (08:40→20:45)
--- NOTE | 2016-10-23 09:14 | Pulmonology Progress Note ---
Pulmonary Progress Note Date of Service Oct 23, 2016. Attending Dr. Solis Subjective The patient notes an overall improvement in her respiratory status with decrease work of breathing. Objective The patient is sitting up at the side of her bed eating breakfast the day of complete full sentences not using accessory muscles: I/Os: -2.3L RR: 16-22 SaO2: 95-99% FiO2: 2Lnc BiPAP: 12/6 24%, over night RESP: Increased air movement but continual expiratory wheezing CARD: S1-S2 regular rate and rhythm EXT: 1+ pitting edema in the lower extremities bilaterally ABD: Positive bowel sounds soft nontender Assessment & Plan 61 y/o female admitted with acute on chronic respiratory insufficiency: 1) Respiratory Insufiency: The patient's overall respiratory insufficiency has greatly improved and she is currently off BiPAP very comfortable on nasal cannula. 2) COPD/ACOS: Is a very tender the patient I would continue her current Solu- Medrol dosing for another 24 hours and monitor in telemetry. She is doing well with the next 24 hours I would titrate her to oral steroids. The patient also appears to be doing well continue to monitor off BiPAP. Any signs of respiratory insufficiency reinitiate BiPAP therapy. Also suggest using BiPAP while she is sleeping. 3) Hypoxemia/Hypercapnia: At the time of the patient's ABG the ED report suggest she was on BiPAP and an FiO2 of 15L not 30% which would make her A-a gradient 405mmHg. The patient's PaCO2 was also 54 at that time also suggesting she is suffering from hypercapnic/hypoxic respiratory failure. To add on to this the patient is 6Kg or 26lbs heavier than her last d/c date. Her presentation, clinical history, labs, PFTs and cardiac echo all suggest this patient not only has ACOS but also some pulmonary hypertension most likely groups II and III. This will require future work-up with a right heart catheterization and V/Q scans. I don't suggest starting full anti-coagulation at this time as the patient has had many similar attacks and her previous VTE work-ups showed no signs of acute pulmonary emboli but future evaluation for CTEPH is warranted. 4) Pulmonary Hypertension: Patient most likely has group to group 3 pulmonary hypertension and has responded well to diuresis of 2.1 L. Suggest we continue to diuresis and monitor kidney function at this time. 5) Rhinitis: With the change in the weather the patient's allergic signs and symptoms appear to have flared so the Solu-Medrol and continuation of her Singular and Flonase should help. 6) Issues: This patient's GERD, rhinnitis, obesity and poor compliance all add to her continued respiratory exacerbations and needed to be worked on in the outpatient setting. 7) ID: At this time I will discontinue antibiotics as the patient's chest x-ray , serum studies/pro-calcitonin white blood cell count as well as clinical history did not sided chest pneumonia and/or acute bronchitis. Data Medications: Current Inpatient Medications Medications (Trade) Dose Ordered Sig/Allison Route Start Time Stop Time Status Last Admin Dose Admin Enoxaparin Sodium (Lovenox Inj) 40 mg HS SC 10/21/16 21:00 11/20/16 20:59 10/22/16 21:24 40 MG Acetaminophen (Tylenol Tab) 650 mg Q4H PRN PO 10/21/16 14:30 11/20/16 14:29 10/22/16 12:51 650 MG Magnesium Hydroxide (Milk Of Magnesia Susp) 30 ml Q12H PRN PO 10/21/16 14:30 11/20/16 14:29 Ondansetron HCl (Zofran Inj) 4 mg Q6H PRN IV 10/21/16 14:30 11/20/16 14:29 Glucose (Glucose 40% Gel) 15-30 GRAMS 15 GRAMS... UD PRN PO 10/21/16 14:30 11/20/16 14:29 Glucose (Glucose Chew Tab) 4-8 Tablets 4 Tabl... UD PRN PO 10/21/16 14:30 11/20/16 14:29 Dextrose (Dextrose 50% 50ML Syringe) 25-50ML OF 50% DW IV FOR... UD PRN IV 10/21/16 14:30 11/20/16 14:29 Glucagon (Glucagon Inj) 1 mg UD PRN SQ 10/21/16 14:30 11/20/16 14:29 Miscellaneous Information (Consult Glycemic Management Pharmacy) 1 ea UD PRN N/A 10/21/16 14:30 11/20/16 14:29 Albuterol (Ventolin Hfa Inhaler) 2 puffs Q4H PRN INH 10/21/16 14:45 11/20/16 14:44 Amitriptyline HCl (Elavil Tab) 10 mg HS PO 10/21/16 21:00 11/20/16 20:59 10/22/16 21:22 10 MG Amlodipine Besylate (Norvasc Tab) 5 mg DAILY PO 10/22/16 09:00 11/21/16 08:59 10/23/16 08:32 5 MG Aspirin (Ecotrin Tab) 81 mg QAM PO 10/22/16 09:00 11/21/16 08:59 10/23/16 08:32 81 MG Atorvastatin Calcium (Lipitor Tab) 10 mg QAM PO 10/22/16 09:00 11/21/16 08:59 10/23/16 08:32 10 MG Benzonatate (Tessalon Perles Cap) 100 mg TID PRN PO 10/21/16 14:45 11/20/16 14:44 10/23/16 08:36 100 MG Cyclobenzaprine HCl (Flexeril Tab) 10 mg BID PRN PO 10/21/16 14:45 11/20/16 14:44 10/23/16 08:35 10 MG Fluticasone Propionate (Flonase Nasal [place]) 2 sprays BID LIDYA 10/21/16 21:00 11/20/16 20:59 10/23/16 08:33 2 SPRAYS Furosemide (Lasix Tab) 20 mg QAM PO 10/22/16 09:00 11/21/16 08:59 10/23/16 08:33 20 MG Gabapentin (Neurontin Cap) 100 mg TID PO 10/21/16 21:00 11/20/16 20:59 10/23/16 08:31 100 MG Magnesium Oxide (Mag-Ox Tab) 400 mg DAILY PO 10/22/16 09:00 11/21/16 08:59 10/23/16 08:32 400 MG Montelukast Sodium (Singulair Tab) 10 mg QAM PO 10/22/16 09:00 11/21/16 08:59 10/23/16 08:31 10 MG Pantoprazole Sodium (Protonix Tab) 40 mg QAM PO 10/22/16 09:00 11/21/16 08:59 10/23/16 08:31 40 MG Pramipexole Dihydrochloride (miraPEX TAB) 0.5 mg TID PO 10/21/16 21:00 11/20/16 20:59 10/23/16 08:33 0.5 MG Ranitidine HCl (zANTac TAB) 300 mg HS PO 10/21/16 21:00 11/20/16 20:59 10/22/16 21:22 300 MG Zolpidem Tartrate (Ambien Tab) 5 mg HS PRN PO 10/21/16 14:45 11/20/16 14:44 10/22/16 22:14 5 MG Cyanocobalamin (Vitamin B-12 Tab) 1,000 mcg DAILY PO 10/22/16 09:00 11/21/16 08:59 10/23/16 08:32 1,000 MCG Potassium Chloride (Klor-Con M10) 10 meq DAILY PO 10/22/16 09:00 11/21/16 08:59 10/23/16 08:32 10 MEQ Methylprednisolone Sodium Succinate 60 mg/Syringe 0.96 ml @ 1.5 mls/min Q6 IV 10/22/16 00:00 11/21/16 00:00 10/23/16 05:55 1.5 MLS/MIN Levalbuterol (Xopenex 1.25MG/ 3ML Neb) 1.25 mg Q4 PRN INH 10/21/16 18:00 11/20/16 17:59 Ipratropium [place] (Atrovent 0.02% 0.5MG/2.5ML Neb) 0.5 mg Q6R INH 10/21/16 21:00 11/20/16 20:59 10/23/16 06:59 0.5 MG Levalbuterol (Xopenex 1.25MG/ 0.5ML Neb) 1.25 mg Q6R INH 10/21/16 21:00 11/20/16 20:59 10/23/16 06:59 1.25 MG Insulin Glargine (Lantus Solostar Pen) SEE PROTOCOL BID SC 10/22/16 21:00 11/21/16 20:59 10/23/16 08:40 20 UNITS Insulin Aspart (novoLOG ASPART) SLIDING SCALE If C... ACHS SC 10/23/16 07:00 11/22/16 06:59 10/23/16 08:39 19 UNITS Vital Signs: Date Time Temp Pulse Resp B/P (MAP) Pulse Ox O2 Delivery O2 Flow Rate FiO2 10/23/16 07:48 36.6 115 21 146/79 (101) 95 Room Air 10/23/16 06:59 100 16 99 Nasal Cannula 10/23/16 04:00 36.9 119 22 165/88 (113) 98 CPAP 24 10/23/16 04:00 CPAP 24 10/23/16 02:10 100 16 99 BiPAP/CPAP 10/23/16 00:02 CPAP 24 10/22/16 23:30 36.6 117 19 148/84 (105) 100 CPAP 10/22/16 22:24 117 100 24 10/22/16 20:00 Nasal Cannula 2.0 10/22/16 19:32 100 17 99 BiPAP/CPAP 10/22/16 18:55 36.6 114 18 153/77 (102) 96 BiPAP 10/22/16 16:00 99 12.0 21 10/22/16 15:19 36.3 104 20 153/77 (102) 100 BiPAP 10/22/16 13:52 104 97 24 10/22/16 13:51 104 17 97 BiPAP/CPAP 24 10/22/16 12:00 99 12.0 30 10/22/16 11:43 36.6 100 21 131/74 (93) 98 BiPAP Laboratory Results: Last 24 Hours Test 10/22/16 11:27 10/22/16 16:36 10/22/16 20:19 10/23/16 07:15 Bedside Glucose 160 mg/dl 154 mg/dl 233 mg/dl 179 mg/dl
[2016-10-23] MEDS ORDERED: CLONIDINE HCL 0.1 MG TAB PO PRN (16:00)
[2016-10-23] MEDS ORDERED: COUGH DROP (SUGAR FREE) LOZ 24 LOZ/1 BOX ONE (19:22)
[2016-10-23] MEDS: AMITRIPTYLINE HCL 10 MG TAB PO SCH (19:51)
[2016-10-23] MEDS: RANITIDINE HCL 150 MG TAB PO SCH (19:52)
[2016-10-23] MEDS: ENOXAPARIN 40 MG/0.4 ML SYR SC SCH (19:53)
--- NOTE | 2016-10-23 20:29 | Progress Note ---
Medicine Progress Note Date & Time of Visit: Oct 23, 2016 at 20:27. Subjective resting in bed, comfortable speaks in sentences with no effort states she continues to improve denies dyspnea has less cough no chest pain no other symptoms Objective Last 8 Hrs Date Time Temp Pulse Resp B/P (MAP) Pulse Ox O2 Delivery O2 Flow Rate FiO2 10/23/16 19:44 97 16 95 Room Air 10/23/16 19:05 37.0 107 19 143/75 (97) 93 Room Air 10/23/16 16:00 Room Air 10/23/16 15:14 36.9 108 19 148/55 (86) 93 Room Air 10/23/16 14:13 91 16 96 Room Air Physical Exam: General- oriented x 3, not in distress, speaks in sentences with no effort Eyes- anicteric Neck- no JVD Lungs- bilateral scattered wheezing- improved Heart- regular rhythm; no murmur, normal rate Abdomen- normal bowel sounds, soft, nontender Extremities- no pretibial edema, no calf tenderness Neuro- alert, oriented x 3; no gross deficits Skin- warm & dry Laboratory Results: Last 24 Hours Test 10/23/16 07:15 10/23/16 11:16 10/23/16 16:11 Bedside Glucose 179 mg/dl 167 mg/dl 191 mg/dl Assessment & Plan This is a 61yo F with a PMH of COPD/asthma, HTN, DM II, and other problems noted below who presents in respiratory distress that started this AM. Acute Hypoxic Respiratory Failure secondary to COPD Exacerbation - Presented on CPAP, after 1 albuterol treatment - Started on Bipap in ED and given neb treatment for 1 hr -- continues to improve -- weaned off Bipap -- continue Solumedrol, Nebs -- appreciate Pulm Consult DM II: -Hgb alc of 6.9 09/12 -Well controlled normally but glycemic consult 2/2 steroids -Held home meds -SSI, per pharm adjustments -BG checks AC HS HTN: -Stable -Continue amlodipine, lasix -Monitor GERD -Continue PPI, Ranitidine DVT Ppx: Lovenox Code status: FULL PCP: Main[facility] Dispo: Plan to return home once medically stable Current Inpatient Medications: Current Inpatient Medications Medications (Trade) Dose Ordered Sig/Allison Route Start Time Stop Time Status Last Admin Dose Admin Enoxaparin Sodium (Lovenox Inj) 40 mg HS SC 8/25/17 21:00 11/20/16 20:59 10/23/16 19:53 40 MG Acetaminophen (Tylenol Tab) 650 mg Q4H PRN PO 10/21/16 14:30 11/20/16 14:29 10/22/16 12:51 650 MG Magnesium Hydroxide (Milk Of Magnesia Susp) 30 ml Q12H PRN PO 10/21/16 14:30 11/20/16 14:29 Ondansetron HCl (Zofran Inj) 4 mg Q6H PRN IV 10/21/16 14:30 11/20/16 14:29 Glucose (Glucose 40% Gel) 15-30 GRAMS 15 GRAMS... UD PRN PO 10/21/16 14:30 11/20/16 14:29 Glucose (Glucose Chew Tab) 4-8 Tablets 4 Tabl... UD PRN PO 10/21/16 14:30 11/20/16 14:29 Dextrose (Dextrose 50% 50ML Syringe) 25-50ML OF 50% DW IV FOR... UD PRN IV 10/21/16 14:30 11/20/16 14:29 Glucagon (Glucagon Inj) 1 mg UD PRN SQ 10/21/16 14:30 11/20/16 14:29 Miscellaneous Information (Consult Glycemic Management Pharmacy) 1 ea UD PRN N/A 10/21/16 14:30 11/20/16 14:29 Albuterol (Ventolin Hfa Inhaler) 2 puffs Q4H PRN INH 10/21/16 14:45 11/20/16 14:44 Amitriptyline HCl (Elavil Tab) 10 mg HS PO 10/21/16 21:00 11/20/16 20:59 10/23/16 19:51 10 MG Amlodipine Besylate (Norvasc Tab) 5 mg DAILY PO 10/22/16 09:00 11/21/16 08:59 10/23/16 08:32 5 MG Aspirin (Ecotrin Tab) 81 mg QAM PO 10/22/16 09:00 11/21/16 08:59 10/23/16 08:32 81 MG Atorvastatin Calcium (Lipitor Tab) 10 mg QAM PO 10/22/16 09:00 11/21/16 08:59 10/23/16 08:32 10 MG Benzonatate (Tessalon Perles Cap) 100 mg TID PRN PO 10/21/16 14:45 11/20/16 14:44 10/23/16 19:51 100 MG Cyclobenzaprine HCl (Flexeril Tab) 10 mg BID PRN PO 10/21/16 14:45 11/20/16 14:44 10/23/16 08:35 10 MG Fluticasone Propionate (Flonase Nasal [place]) 2 sprays BID LIDYA 10/21/16 21:00 11/20/16 20:59 10/23/16 19:51 2 SPRAYS Furosemide (Lasix Tab) 20 mg QAM PO 10/22/16 09:00 11/21/16 08:59 10/23/16 08:33 20 MG Gabapentin (Neurontin Cap) 100 mg TID PO 10/21/16 21:00 11/20/16 20:59 10/23/16 19:52 100 MG Magnesium Oxide (Mag-Ox Tab) 400 mg DAILY PO 10/22/16 09:00 11/21/16 08:59 10/23/16 08:32 400 MG Montelukast Sodium (Singulair Tab) 10 mg QAM PO 10/22/16 09:00 11/21/16 08:59 10/23/16 08:31 10 MG Pantoprazole Sodium (Protonix Tab) 40 mg QAM PO 10/22/16 09:00 11/21/16 08:59 10/23/16 08:31 40 MG Pramipexole Dihydrochloride (miraPEX TAB) 0.5 mg TID PO 10/21/16 21:00 11/20/16 20:59 10/23/16 19:51 0.5 MG Ranitidine HCl (zANTac TAB) 300 mg HS PO 10/21/16 21:00 11/20/16 20:59 10/23/16 19:52 300 MG Zolpidem Tartrate (Ambien Tab) 5 mg HS PRN PO 10/21/16 14:45 11/20/16 14:44 10/22/16 22:14 5 MG Cyanocobalamin (Vitamin B-12 Tab) 1,000 mcg DAILY PO 10/22/16 09:00 11/21/16 08:59 10/23/16 08:32 1,000 MCG Potassium Chloride (Klor-Con M10) 10 meq DAILY PO 10/22/16 09:00 11/21/16 08:59 10/23/16 08:32 10 MEQ Methylprednisolone Sodium Succinate 60 mg/Syringe 0.96 ml @ 1.5 mls/min Q6 IV 10/22/16 00:00 11/21/16 00:00 10/23/16 17:47 1.5 MLS/MIN Levalbuterol (Xopenex 1.25MG/ 3ML Neb) 1.25 mg Q4 PRN INH 10/21/16 18:00 11/20/16 17:59 Ipratropium [place] (Atrovent 0.02% 0.5MG/2.5ML Neb) 0.5 mg Q6R INH 10/21/16 21:00 11/20/16 20:59 10/23/16 19:44 0.5 MG Levalbuterol (Xopenex 1.25MG/ 0.5ML Neb) 1.25 mg Q6R INH 10/21/16 21:00 11/20/16 20:59 10/23/16 19:44 1.25 MG Insulin Glargine (Lantus Solostar Pen) SEE PROTOCOL BID SC 10/22/16 21:00 11/21/16 20:59 10/23/16 08:40 20 UNITS Insulin Aspart (novoLOG ASPART) SLIDING SCALE If C... ACHS SC 10/23/16 07:00 11/22/16 06:59 10/23/16 17:47 18 UNITS Clonidine HCl (Catapres Tab) 0.1 mg Q6H PRN PO 10/23/16 16:00 11/22/16 15:59
[2016-10-23] MEDS: ZOLPIDEM TARTRATE 5 MG TAB PO PRN (23:46)
[2016-10-24] VITALS (12 sets, daily range): BP systolic 120–160; BP diastolic 69–84; PULSE 90–111; TEMP 36.6–36.9; O2SAT 94–100
[2016-10-24] MEDS: IPRATROPIUM BROMIDE NEB SOLN 0.02% 2.5 ML VIAL INH SCH ×4 (02:45→20:21)
[2016-10-24] MEDS: LEVALBUTEROL 1.25MG/0.5ML NEB INH SCH ×4 (02:46→20:21)
[2016-10-24] MEDS: METHYLPREDNISOLONE IV 60 MG in SYRINGE 0 ML IV SCH ×2 (06:40→10:58)
[2016-10-24] MEDS: BENZONATATE 100MG CAP PO PRN (08:43)
[2016-10-24] MEDS: FLUTICASONE PROPIONATE NA SPR 16 GM BTL NAE SCH ×2 (08:43→22:05)
[2016-10-24] MEDS: MAGNESIUM OXIDE 400 MG TAB PO SCH (08:44)
[2016-10-24] MEDS: GABAPENTIN 100 MG CAP PO SCH ×3 (08:44→21:55)
[2016-10-24] MEDS: ATORVASTATIN 10 MG TAB PO SCH (08:45)
[2016-10-24] MEDS: POTASSIUM CHLORIDE 10 MEQ TABCR PO SCH (08:45)
[2016-10-24] MEDS: AMLODIPINE BESYLATE 5 MG TAB PO SCH (08:45)
[2016-10-24] MEDS: ASPIRIN 81 MG ECTAB PO SCH (08:45)
[2016-10-24] MEDS: CYANOCOBALAMIN 500 MCG TAB (VIT B-12) PO SCH (08:46)
[2016-10-24] MEDS: PRAMIPEXOLE DIHYDROCHLORIDE 0.5 MG TAB PO SCH ×3 (08:46→21:55)
[2016-10-24] MEDS: PANTOprazole SOD 40 MG TAB PO SCH (08:46)
[2016-10-24] MEDS: MONTELUKAST SOD 10 MG TAB PO SCH (08:46)
[2016-10-24] MEDS: FUROSEMIDE 20 MG TAB PO SCH (08:47)
[2016-10-24] MEDS: INSULIN ASPART 100 UNITS/ML 3 ML PEN SC SCH ×4 (08:52→21:57)
[2016-10-24] MEDS: INSULIN GLARGINE SOLOSTAR 100 UNITS/ML 3 ML PEN SC SCH ×2 (09:02→21:58)
--- NOTE | 2016-10-24 10:12 | Pharmacy Progress Note ---
Glycemic Control Progress Note Date of Service Oct 24, 2016. Scope Glycemic Pharmacist consulted for glycemic control to write orders per [facility] inpatient glycemic control protocol. Objective Accuchecks BSG (last 24hrs): Test 10/23/16 11:16 10/23/16 16:11 10/23/16 20:15 10/24/16 06:43 Bedside Glucose 167 mg/dl (70-90) 191 mg/dl (70-90) 198 mg/dl (70-90) 138 mg/dl (70-90) Recent Pertinent Medications The patient is currently receiving: * Basal insulin: 10/23 Lantus 20 units in the AM, 28 units in the PM * Correctional Insulin: Novolog Correction per scale ACHS Goal Range: Low 110 mg/dL - High 140 mg/dL Correction Factor: 10 mg/dL/unit * Prandial insulin: Per carb ratio of 1 unit per 4 grams CHO consumed * Oral Agents: None at this time Outpatient Anti-Diabetic Meds Metformin + Amaryl Assessment & Plan ASSESSMENT: * See progress note from 10/23 for more background info, in short: * Pt receiving SQ basal bolus insulin regimen for hyperglycemia secondary to baseline DM (outpatient regimen on hold), steroids * Patient is currently receiving an average of 111 units of insulin per day * 48 units of basal insulin received yesterday * BSGs ranging 138 - 198 mg/dl over the past 24hrs * Changes needed to insulin regimen: * AM Fasting BSG = 138 mg/dl. This is in goal range for patient based on inpatient targets and co-morbidities. Anticipate basal requirements of ~50 units /day so will adjust Lantus scale to reflect this. * Post-prandial BSGs are slightly above goal but do not increase after meals, indicating that the current CR is appropriate. Anticipate adjustment to the basal dose will aid in normalizing BSGs throughout the day as well. * Additional notes / comments: * I spoke with the nurse this AM because based on the sliding scale order for Lantus, 18 units should have been given. 28 units was given this AM. This should be okay since the patient will have po intake and is still on high-dose steroids but may need to back off on the CF/CR at lunch depending on the BSG. RN will plan to call me with the lunch BSG to evaluate. PLAN FOR INPATIENT GLYCEMIC CONTROL: * Continue Lantus 28 units BID for BSG > 180 (24 units for BSG 140-180, 18 units for BSG < 140) * Continue CF 10 * Continue CR 4 RECOMMENDATIONS FOR DISCHARGE: * Continue outpatient Amaryl and metformin as recent A1c is acceptable * If patient to be discharge on prednisone, please contact the glycemic pharmacist for recommendations Thank you.
--- NOTE | 2016-10-24 20:08 | Pulmonology Progress Note ---
Pulmonary Progress Note Date of Service Oct 24, 2016. Attending Subjective Patient seen and examined this evening. She states that she is feeling much better. She has been on nasal canula for most of the day and was on BiPAP overnight. She tolerated it well. She still has intermittent shortness of breath, cough with mild productive sputum. She has ambulating around room without difficulties. She is requesting to go home in the morning. Objective VS reviewed. Tm 36.9, BP 120/69-160/74, P 90-108, RR 16-20, Sao2 94-100% on 2L NC. Cumulative urine output since admission in 6L. Gen: AAOx3, NAD, no use of accessory muscles Mouth: no oral thrush CVS: S1, S2, RRR Lungs: Decrease breath sound bilaterally, no wheezing, no crackles Abd: obese, NT, ND Ext: no edema bilateral lower extremities Labs reviewed Imaging reviewed Medications reviewed Assessment & Plan 61 y/o female admitted with acute on chronic respiratory insufficiency: 1) Respiratory Insuffiency: Improved 2) COPD/ACOS 3) Hypoxemia/Hypercapnia 4) Pulmonary Hypertension 5) Rhinitis Patient is comfortable on nasal canula. Respiratory insufficiency has resolved. She is now comfortable on nasal cannula. Continue with BiPAP at night Switch prednisone over oral steroids and titrate For pulmonary hypertension most likely groups II and III. This will require future work-up with a right heart catheterization and V/Q scans. This can be done as an outpatient. Continue with diuresis as kidney function tolerates. She should follow up with pulmonary upon discharge. Will sign off case today. Please contact me if you have any other questions or concerns. Data Medications: Current Inpatient Medications Medications (Trade) Dose Ordered Sig/Allison Route Start Time Stop Time Status Last Admin Dose Admin Enoxaparin Sodium (Lovenox Inj) 40 mg HS SC 10/21/16 21:00 11/20/16 20:59 10/23/16 19:53 40 MG Acetaminophen (Tylenol Tab) 650 mg Q4H PRN PO 10/21/16 14:30 11/20/16 14:29 10/22/16 12:51 650 MG Magnesium Hydroxide (Milk Of Magnesia Susp) 30 ml Q12H PRN PO 10/21/16 14:30 11/20/16 14:29 Ondansetron HCl (Zofran Inj) 4 mg Q6H PRN IV 10/21/16 14:30 11/20/16 14:29 Glucose (Glucose 40% Gel) 15-30 GRAMS 15 GRAMS... UD PRN PO 10/21/16 14:30 11/20/16 14:29 Glucose (Glucose Chew Tab) 4-8 Tablets 4 Tabl... UD PRN PO 10/21/16 14:30 11/20/16 14:29 Dextrose (Dextrose 50% 50ML Syringe) 25-50ML OF 50% DW IV FOR... UD PRN IV 10/21/16 14:30 11/20/16 14:29 Glucagon (Glucagon Inj) 1 mg UD PRN SQ 10/21/16 14:30 11/20/16 14:29 Miscellaneous Information (Consult Glycemic Management Pharmacy) 1 ea UD PRN N/A 10/21/16 14:30 11/20/16 14:29 Albuterol (Ventolin Hfa Inhaler) 2 puffs Q4H PRN INH 10/21/16 14:45 11/20/16 14:44 Amitriptyline HCl (Elavil Tab) 10 mg HS PO 10/21/16 21:00 11/20/16 20:59 10/23/16 19:51 10 MG Amlodipine Besylate (Norvasc Tab) 5 mg DAILY PO 10/22/16 09:00 11/21/16 08:59 10/24/16 08:45 5 MG Aspirin (Ecotrin Tab) 81 mg QAM PO 10/22/16 09:00 11/21/16 08:59 10/24/16 08:45 81 MG Atorvastatin Calcium (Lipitor Tab) 10 mg QAM PO 10/22/16 09:00 11/21/16 08:59 10/24/16 08:45 10 MG Benzonatate (Tessalon Perles Cap) 100 mg TID PRN PO 10/21/16 14:45 11/20/16 14:44 10/24/16 08:43 100 MG Cyclobenzaprine HCl (Flexeril Tab) 10 mg BID PRN PO 10/21/16 14:45 11/20/16 14:44 10/23/16 08:35 10 MG Fluticasone Propionate (Flonase Nasal [place]) 2 sprays BID LIDYA 10/21/16 21:00 11/20/16 20:59 8/28/17 08:43 2 SPRAYS Furosemide (Lasix Tab) 20 mg QAM PO 10/22/16 09:00 11/21/16 08:59 10/24/16 08:47 20 MG Gabapentin (Neurontin Cap) 100 mg TID PO 10/21/16 21:00 11/20/16 20:59 10/24/16 18:02 100 MG Magnesium Oxide (Mag-Ox Tab) 400 mg DAILY PO 10/22/16 09:00 11/21/16 08:59 10/24/16 08:44 400 MG Montelukast Sodium (Singulair Tab) 10 mg QAM PO 10/22/16 09:00 11/21/16 08:59 10/24/16 08:46 10 MG Pantoprazole Sodium (Protonix Tab) 40 mg QAM PO 10/22/16 09:00 11/21/16 08:59 10/24/16 08:46 40 MG Pramipexole Dihydrochloride (miraPEX TAB) 0.5 mg TID PO 10/21/16 21:00 11/20/16 20:59 10/24/16 18:01 0.5 MG Ranitidine HCl (zANTac TAB) 300 mg HS PO 10/21/16 21:00 11/20/16 20:59 10/23/16 19:52 300 MG Zolpidem Tartrate (Ambien Tab) 5 mg HS PRN PO 10/21/16 14:45 11/20/16 14:44 10/23/16 23:46 5 MG Cyanocobalamin (Vitamin B-12 Tab) 1,000 mcg DAILY PO 10/22/16 09:00 11/21/16 08:59 10/24/16 08:46 1,000 MCG Potassium Chloride (Klor-Con M10) 10 meq DAILY PO 10/22/16 09:00 11/21/16 08:59 10/24/16 08:45 10 MEQ Levalbuterol (Xopenex 1.25MG/ 3ML Neb) 1.25 mg Q4 PRN INH 10/21/16 18:00 11/20/16 17:59 Ipratropium [place] (Atrovent 0.02% 0.5MG/2.5ML Neb) 0.5 mg Q6R INH 10/21/16 21:00 11/20/16 20:59 10/24/16 14:08 0.5 MG Levalbuterol (Xopenex 1.25MG/ 0.5ML Neb) 1.25 mg Q6R INH 10/21/16 21:00 11/20/16 20:59 10/24/16 14:08 1.25 MG Insulin Glargine (Lantus Solostar Pen) SEE PROTOCOL BID SC 10/22/16 21:00 11/21/16 20:59 10/24/16 09:02 28 UNITS Insulin Aspart (novoLOG ASPART) SLIDING SCALE If C... ACHS SC 10/23/16 07:00 11/22/16 06:59 10/24/16 18:10 31 UNITS Clonidine HCl (Catapres Tab) 0.1 mg Q6H PRN PO 10/23/16 16:00 11/22/16 15:59 Methylprednisolone Sodium Succinate 60 mg/Syringe 0.96 ml @ 1.5 mls/min Q12H IV 10/25/16 00:00 11/21/16 00:00 UNV I & O: 24-Hour Column 10/25/16 07:59 Intake Total 320 ml Output Total 360 ml Balance -40 ml Vital Signs: Date Time Temp Pulse Resp B/P (MAP) Pulse Ox O2 Delivery O2 Flow Rate FiO2 10/24/16 18:57 36.9 104 18 144/82 (102) 97 Nasal Cannula 2.0 10/24/16 16:00 Room Air 10/24/16 15:09 36.7 108 16 160/74 (102) 96 Room Air 10/24/16 14:09 95 16 97 Room Air 10/24/16 12:06 36.6 105 18 138/78 (98) 95 Room Air Partial Rebreather 10/24/16 12:00 Room Air 10/24/16 08:33 36.8 90 16 120/69 (86) 95 Room Air 10/24/16 08:00 Room Air 10/24/16 07:30 99 16 100 BiPAP/CPAP 24 10/24/16 07:30 99 100 24 10/24/16 04:06 36.8 102 19 136/79 (98) 94 BiPAP 10/24/16 04:00 Room Air 10/24/16 02:46 91 19 97 Room Air 10/24/16 02:46 91 97 24 10/24/16 00:11 36.8 103 20 145/84 (104) 95 BiPAP 10/24/16 00:01 Room Air 10/23/16 22:17 108 97 24 10/23/16 20:00 Room Air Laboratory Results: Last 24 Hours Test 10/23/16 20:15 10/24/16 06:43 10/24/16 11:08 10/24/16 16:08 Bedside Glucose 198 mg/dl 138 mg/dl 141 mg/dl 264 mg/dl
--- NOTE | 2016-10-24 20:45 | Progress Note ---
Medicine Progress Note Date & Time of Visit: Oct 24, 2016 at 20:43. Subjective patient seen resting in bed, comfortable in good spirits on oxygen via nasal cannula states breathing continued to improve denies chest pain, dizziness, nausea no other symptoms Objective Last 8 Hrs Date Time Temp Pulse Resp B/P (MAP) Pulse Ox O2 Delivery O2 Flow Rate FiO2 10/24/16 20:21 111 16 99 Nasal Cannula 2.0 10/24/16 18:57 36.9 104 18 144/82 (102) 97 Nasal Cannula 2.0 10/24/16 16:00 Room Air 10/24/16 15:09 36.7 108 16 160/74 (102) 96 Room Air 10/24/16 14:09 95 16 97 Room Air Physical Exam: General- oriented x 3, not in distress, speaks in sentences with no effort Eyes- anicteric Neck- no JVD Lungs- occasional wheezing bilaterally, much improved Heart- regular rhythm; no murmur, normal rate Abdomen- normal bowel sounds, soft, nontender Extremities- no pretibial edema, no calf tenderness Neuro- alert, oriented x 3; no gross deficits Skin- warm & dry Laboratory Results: Last 24 Hours Test 10/24/16 06:43 10/24/16 11:08 10/24/16 16:08 10/24/16 19:58 Bedside Glucose 138 mg/dl 141 mg/dl 264 mg/dl 160 mg/dl Assessment & Plan This is a 61yo F with a PMH of COPD/asthma, HTN, DM II, and other problems noted below who presents in respiratory distress that started this AM. Acute Hypoxic Respiratory Failure secondary to COPD Exacerbation - Presented on CPAP, after 1 albuterol treatment - Started on Bipap in ED and given neb treatment for 1 hr -- continues to improve daily -- weaned off Bipap -- continue Solumedrol- taper to q21h, Nebs -- appreciate Pulm Consult DM II: -Hgb alc of 6.9 09/12 -Well controlled normally but glycemic consult 2/2 steroids -Held home meds -SSI, per pharm adjustments -BG checks AC HS HTN: -Stable -Continue amlodipine, lasix -Monitor GERD -Continue PPI, Ranitidine DVT Ppx: Lovenox Code status: FULL PCP: Mainali Dispo: anticipate d/c home tomorrow Current Inpatient Medications: Current Inpatient Medications Medications (Trade) Dose Ordered Sig/[place]ison Route Start Time Stop Time Status Last Admin Dose Admin Enoxaparin Sodium (Lovenox Inj) 40 mg HS SC 10/21/16 21:00 11/20/16 20:59 10/23/16 19:53 40 MG Acetaminophen (Tylenol Tab) 650 mg Q4H PRN PO 10/21/16 14:30 11/20/16 14:29 10/22/16 12:51 650 MG Magnesium Hydroxide (Milk Of Magnesia Susp) 30 ml Q12H PRN PO 10/21/16 14:30 11/20/16 14:29 Ondansetron HCl (Zofran Inj) 4 mg Q6H PRN IV 10/21/16 14:30 11/20/16 14:29 Glucose (Glucose 40% Gel) 15-30 GRAMS 15 GRAMS... UD PRN PO 10/21/16 14:30 11/20/16 14:29 Glucose (Glucose Chew Tab) 4-8 Tablets 4 Tabl... UD PRN PO 10/21/16 14:30 11/20/16 14:29 Dextrose (Dextrose 50% 50ML Syringe) 25-50ML OF 50% DW IV FOR... UD PRN IV 10/21/16 14:30 11/20/16 14:29 Glucagon (Glucagon Inj) 1 mg UD PRN SQ 10/21/16 14:30 11/20/16 14:29 Miscellaneous Information (Consult Glycemic Management Pharmacy) 1 ea UD PRN N/A 10/21/16 14:30 11/20/16 14:29 Albuterol (Ventolin Hfa Inhaler) 2 puffs Q4H PRN INH 10/21/16 14:45 11/20/16 14:44 Amitriptyline HCl (Elavil Tab) 10 mg HS PO 10/21/16 21:00 11/20/16 20:59 10/23/16 19:51 10 MG Amlodipine Besylate (Norvasc Tab) 5 mg DAILY PO 10/22/16 09:00 11/21/16 08:59 10/24/16 08:45 5 MG Aspirin (Ecotrin Tab) 81 mg QAM PO 10/22/16 09:00 11/21/16 08:59 10/24/16 08:45 81 MG Atorvastatin Calcium (Lipitor Tab) 10 mg QAM PO 10/22/16 09:00 11/21/16 08:59 10/24/16 08:45 10 MG Benzonatate (Tessalon Perles Cap) 100 mg TID PRN PO 10/21/16 14:45 11/20/16 14:44 10/24/16 08:43 100 MG Cyclobenzaprine HCl (Flexeril Tab) 10 mg BID PRN PO 10/21/16 14:45 11/20/16 14:44 10/23/16 08:35 10 MG Fluticasone Propionate (Flonase Nasal [place]) 2 sprays BID LIDYA 10/21/16 21:00 11/20/16 20:59 10/24/16 08:43 2 SPRAYS Furosemide (Lasix Tab) 20 mg QAM PO 10/22/16 09:00 11/21/16 08:59 10/24/16 08:47 20 MG Gabapentin (Neurontin Cap) 100 mg TID PO 10/21/16 21:00 11/20/16 20:59 10/24/16 18:02 100 MG Magnesium Oxide (Mag-Ox Tab) 400 mg DAILY PO 10/22/16 09:00 11/21/16 08:59 10/24/16 08:44 400 MG Montelukast Sodium (Singulair Tab) 10 mg QAM PO 10/22/16 09:00 11/21/16 08:59 10/24/16 08:46 10 MG Pantoprazole Sodium (Protonix Tab) 40 mg QAM PO 10/22/16 09:00 11/21/16 08:59 10/24/16 08:46 40 MG Pramipexole Dihydrochloride (miraPEX TAB) 0.5 mg TID PO 10/21/16 21:00 11/20/16 20:59 10/24/16 18:01 0.5 MG Ranitidine HCl (zANTac TAB) 300 mg HS PO 10/21/16 21:00 11/20/16 20:59 10/23/16 19:52 300 MG Zolpidem Tartrate (Ambien Tab) 5 mg HS PRN PO 10/21/16 14:45 11/20/16 14:44 10/23/16 23:46 5 MG Cyanocobalamin (Vitamin B-12 Tab) 1,000 mcg DAILY PO 10/22/16 09:00 11/21/16 08:59 10/24/16 08:46 1,000 MCG Potassium Chloride (Klor-Con M10) 10 meq DAILY PO 10/22/16 09:00 11/21/16 08:59 10/24/16 08:45 10 MEQ Levalbuterol (Xopenex 1.25MG/ 3ML Neb) 1.25 mg Q4 PRN INH 10/21/16 18:00 11/20/16 17:59 Ipratropium [place] (Atrovent 0.02% 0.5MG/2.5ML Neb) 0.5 mg Q6R INH 10/21/16 21:00 11/20/16 20:59 10/24/16 20:21 0.5 MG Levalbuterol (Xopenex 1.25MG/ 0.5ML Neb) 1.25 mg Q6R INH 10/21/16 21:00 11/20/16 20:59 10/24/16 20:21 1.25 MG Insulin Glargine (Lantus Solostar Pen) SEE PROTOCOL BID SC 10/22/16 21:00 11/21/16 20:59 10/24/16 09:02 28 UNITS Insulin Aspart (novoLOG ASPART) SLIDING SCALE If C... ACHS SC 10/23/16 07:00 11/22/16 06:59 10/24/16 18:10 31 UNITS Clonidine HCl (Catapres Tab) 0.1 mg Q6H PRN PO 10/23/16 16:00 11/22/16 15:59 Methylprednisolone Sodium Succinate 60 mg/Syringe 0.96 ml @ 1.5 mls/min Q12H IV 10/25/16 00:00 11/21/16 00:00 UNV
[2016-10-24] MEDS: RANITIDINE HCL 150 MG TAB PO SCH (21:55)
[2016-10-24] MEDS: AMITRIPTYLINE HCL 10 MG TAB PO SCH (21:55)
[2016-10-24] MEDS: ENOXAPARIN 40 MG/0.4 ML SYR SC SCH (21:56)
[2016-10-24] MEDS: ZOLPIDEM TARTRATE 5 MG TAB PO PRN (22:04)
[2016-10-25] MEDS ORDERED: METHYLPREDNISOLONE IV 60 MG in SYRINGE 0 ML IV SCH
[2016-10-25] MEDS: LEVALBUTEROL 1.25MG/0.5ML NEB INH SCH ×2 (01:53→07:12)
[2016-10-25] MEDS: IPRATROPIUM BROMIDE NEB SOLN 0.02% 2.5 ML VIAL INH SCH ×2 (01:53→07:12)
[2016-10-25 01:54] VITALS: PULSE 91; O2SAT 95
[2016-10-25 03:36] VITALS: BP 143/83; PULSE 94; TEMP 36.8; O2SAT 94
[2016-10-25 07:12] VITALS: PULSE 99; O2SAT 98
[2016-10-25 07:13] VITALS: PULSE 99; O2SAT 98
[2016-10-25] MEDS: FLUTICASONE PROPIONATE NA SPR 16 GM BTL NAE SCH (08:10)
[2016-10-25 08:11] VITALS: BP 132/84; PULSE 92; TEMP 36.8; O2SAT 96
[2016-10-25] MEDS: ASPIRIN 81 MG ECTAB PO SCH (08:11)
[2016-10-25] MEDS: ATORVASTATIN 10 MG TAB PO SCH (08:11)
[2016-10-25] MEDS: POTASSIUM CHLORIDE 10 MEQ TABCR PO SCH (08:11)
[2016-10-25] MEDS: MAGNESIUM OXIDE 400 MG TAB PO SCH (08:12)
[2016-10-25] MEDS: AMLODIPINE BESYLATE 5 MG TAB PO SCH (08:13)
[2016-10-25] MEDS: GABAPENTIN 100 MG CAP PO SCH (08:13)
[2016-10-25] MEDS: MONTELUKAST SOD 10 MG TAB PO SCH (08:14)
[2016-10-25] MEDS: PANTOprazole SOD 40 MG TAB PO SCH (08:14)
[2016-10-25] MEDS: CYANOCOBALAMIN 500 MCG TAB (VIT B-12) PO SCH (08:14)
[2016-10-25] MEDS: FUROSEMIDE 20 MG TAB PO SCH (08:15)
[2016-10-25] MEDS: PRAMIPEXOLE DIHYDROCHLORIDE 0.5 MG TAB PO SCH (08:16)
[2016-10-25] MEDS: INSULIN ASPART 100 UNITS/ML 3 ML PEN SC SCH (08:20)
[2016-10-25] MEDS: INSULIN GLARGINE SOLOSTAR 100 UNITS/ML 3 ML PEN SC SCH (08:21)
--- NOTE | 2016-10-25 09:28 | Pharmacy Progress Note ---
Glycemic Control Progress Note Date of Service Oct 25, 2016. Scope Glycemic Pharmacist consulted for glycemic control to write orders per [facility] inpatient glycemic control protocol. Objective Accuchecks BSG (last 24hrs): Test 10/24/16 11:08 10/24/16 16:08 10/24/16 19:58 10/25/16 07:04 Bedside Glucose 141 mg/dl (70-90) 264 mg/dl (70-90) 160 mg/dl (70-90) 194 mg/dl (70-90) Recent Pertinent Medications The patient is currently receiving: * Basal insulin: 10/23 Lantus 20 units in the AM, 28 units in the PM 10/24 Lantus 28 units in the AM, 24 units in the PM * Correctional Insulin: Novolog Correction per scale ACHS Goal Range: Low 110 mg/dL - High 140 mg/dL Correction Factor: 10 mg/dL/unit * Prandial insulin: Per carb ratio of 1 unit per 4 grams CHO consumed * Oral Agents: None at this time Outpatient Anti-Diabetic Meds Metformin + Amaryl Assessment & Plan ASSESSMENT: * See progress note from 10/24 for more background info, in short: * Pt receiving SQ basal bolus insulin regimen for hyperglycemia secondary to baseline DM (outpatient regimen on hold), steroids * Patient is currently receiving an average of 110 units of insulin per day * 52 units of basal insulin received yesterday * BSGs ranging 141-264 mg/dl over the past 24hrs * Changes to stressors: * Solu-medrol decreased from 60 mg IV q6h to q12h (should still be above the threshold for effects on hyperglycemia) * Changes needed to insulin regimen: * AM Fasting BSG = 194 mg/dl. This is above goal range for patient based on inpatient targets and co-morbidities. Patient will receive a higher dose of Lantus based upon the "sliding scale" order. * Post-prandial BSGs were mostly in range yesterday, except for one elevated value. Will continue with current CF/CR. PLAN FOR INPATIENT GLYCEMIC CONTROL: * Continue Lantus 28 units BID for BSG > 180 (24 units for BSG 140-180, 18 units for BSG < 140) * Continue CF 10 * Continue CR 4 RECOMMENDATIONS FOR DISCHARGE: * Continue outpatient Amaryl and metformin as recent A1c is acceptable * If patient to be discharged on prednisone, please contact the glycemic pharmacist for recommendations Thank you.
--- NOTE | 2016-10-25 10:43 | Progress Note ---
Medicine Progress Note Date & Time of Visit: Oct 25, 2016 at 10:38. Subjective patient seen resting in chair, comfortable states she feels fine overall no dyspnea, cough, chest pain denies other symptoms states she is ready and would like to be discharged today Objective Last 8 Hrs Date Time Temp Pulse Resp B/P (MAP) Pulse Ox O2 Delivery O2 Flow Rate FiO2 10/25/16 08:11 36.8 92 18 132/84 (100) 96 Room Air 10/25/16 07:40 Room Air 10/25/16 07:13 99 98 24 10/25/16 07:12 99 16 98 BiPAP/CPAP 24 10/25/16 04:00 Room Air 10/25/16 03:36 36.8 94 20 143/83 (103) 94 BiPAP Physical Exam: General- oriented x 3, not in distress, speaks in sentences with no effort Eyes- anicteric Neck- no JVD Lungs- clear breath sounds bilaterally, no rales/wheezes Heart- regular rhythm; no murmur, normal rate Abdomen- normal bowel sounds, soft, nontender Extremities- no pretibial edema, no calf tenderness Neuro- alert, oriented x 3; no gross deficits Skin- warm & dry Laboratory Results: Last 24 Hours Test 10/24/16 11:08 10/24/16 16:08 10/24/16 19:58 10/25/16 07:04 Bedside Glucose 141 mg/dl 264 mg/dl 160 mg/dl 194 mg/dl Assessment & Plan This is a 61yo F with a PMH of COPD/asthma, HTN, DM II, and other problems noted below who presents in respiratory distress that started this AM. Acute Hypoxic Respiratory Failure secondary to COPD Exacerbation - Started on Bipap in ED and given neb treatment for 1 hr -- placed on tapering Solumedrol scheduled nebs -- CXR: no signs of pneumonia Levaquin discontinued -- Pulmonary Dr. Solis consulted -- discharge plan: Prednisone taper to start at Prednisone 60mg continue usual Ubitron, Combivent, Spiriva Lasix 20mg po daily, fluid restriction and 2g Na diet -- ff up with Pulm Dr. Solis in 1-2 weeks -- patient advised to be careful and follow medication instructions carefully as well as diet restrictions DM II: -Hgb alc of 6.9 09/12 -Well controlled normally but glycemic consult 2/2 steroids - continue usual home medications HTN: -Stable -Continue amlodipine, lasix -Monitor GERD -Continue PPI, Ranitidine DVT Ppx: Lovenox Code status: FULL PCP: Misty Dispo: d/c home today ff up with PCP in 3-5 days ff up with Pulmonary Dr. Solis in 1-2 weeks Current Inpatient Medications: Current Inpatient Medications Medications (Trade) Dose Ordered Sig/[place]ison Route Start Time Stop Time Status Last Admin Dose Admin Enoxaparin Sodium (Lovenox Inj) 40 mg HS SC 10/21/16 21:00 11/20/16 20:59 10/24/16 21:56 40 MG Acetaminophen (Tylenol Tab) 650 mg Q4H PRN PO 10/21/16 14:30 11/20/16 14:29 10/22/16 12:51 650 MG Magnesium Hydroxide (Milk Of Magnesia Susp) 30 ml Q12H PRN PO 10/21/16 14:30 11/20/16 14:29 Ondansetron HCl (Zofran Inj) 4 mg Q6H PRN IV 10/21/16 14:30 11/20/16 14:29 Glucose (Glucose 40% Gel) 15-30 GRAMS 15 GRAMS... UD PRN PO 10/21/16 14:30 11/20/16 14:29 Glucose (Glucose Chew Tab) 4-8 Tablets 4 Tabl... UD PRN PO 10/21/16 14:30 11/20/16 14:29 Dextrose (Dextrose 50% 50ML Syringe) 25-50ML OF 50% DW IV FOR... UD PRN IV 10/21/16 14:30 11/20/16 14:29 Glucagon (Glucagon Inj) 1 mg UD PRN SQ 10/21/16 14:30 11/20/16 14:29 Miscellaneous Information (Consult Glycemic Management Pharmacy) 1 ea UD PRN N/A 10/21/16 14:30 11/20/16 14:29 Albuterol (Ventolin Hfa Inhaler) 2 puffs Q4H PRN INH 10/21/16 14:45 11/20/16 14:44 Amitriptyline HCl (Elavil Tab) 10 mg HS PO 10/21/16 21:00 11/20/16 20:59 10/24/16 21:55 10 MG Amlodipine Besylate (Norvasc Tab) 5 mg DAILY PO 10/22/16 09:00 11/21/16 08:59 10/25/16 08:13 5 MG Aspirin (Ecotrin Tab) 81 mg QAM PO 10/22/16 09:00 11/21/16 08:59 10/25/16 08:11 81 MG Atorvastatin Calcium (Lipitor Tab) 10 mg QAM PO 10/22/16 09:00 11/21/16 08:59 10/25/16 08:11 10 MG Benzonatate (Tessalon Perles Cap) 100 mg TID PRN PO 10/21/16 14:45 11/20/16 14:44 10/24/16 08:43 100 MG Cyclobenzaprine HCl (Flexeril Tab) 10 mg BID PRN PO 10/21/16 14:45 11/20/16 14:44 10/23/16 08:35 10 MG Fluticasone Propionate (Flonase Nasal [place]) 2 sprays BID LIDYA 10/21/16 21:00 11/20/16 20:59 10/25/16 08:10 2 SPRAYS Furosemide (Lasix Tab) 20 mg QAM PO 10/22/16 09:00 11/21/16 08:59 10/25/16 08:15 20 MG Gabapentin (Neurontin Cap) 100 mg TID PO 10/21/16 21:00 11/20/16 20:59 10/25/16 08:13 100 MG Magnesium Oxide (Mag-Ox Tab) 400 mg DAILY PO 10/22/16 09:00 11/21/16 08:59 10/25/16 08:12 400 MG Montelukast Sodium (Singulair Tab) 10 mg QAM PO 10/22/16 09:00 11/21/16 08:59 10/25/16 08:14 10 MG Pantoprazole Sodium (Protonix Tab) 40 mg QAM PO 10/22/16 09:00 11/21/16 08:59 10/25/16 08:14 40 MG Pramipexole Dihydrochloride (miraPEX TAB) 0.5 mg TID PO 10/21/16 21:00 11/20/16 20:59 10/25/16 08:16 0.5 MG Ranitidine HCl (zANTac TAB) 300 mg HS PO 10/21/16 21:00 11/20/16 20:59 10/24/16 21:55 300 MG Zolpidem Tartrate (Ambien Tab) 5 mg HS PRN PO 10/21/16 14:45 11/20/16 14:44 10/24/16 22:04 5 MG Cyanocobalamin (Vitamin B-12 Tab) 1,000 mcg DAILY PO 10/22/16 09:00 11/21/16 08:59 10/25/16 08:14 1,000 MCG Potassium Chloride (Klor-Con M10) 10 meq DAILY PO 10/22/16 09:00 11/21/16 08:59 10/25/16 08:11 10 MEQ Levalbuterol (Xopenex 1.25MG/ 3ML Neb) 1.25 mg Q4 PRN INH 10/21/16 18:00 11/20/16 17:59 Ipratropium [place] (Atrovent 0.02% 0.5MG/2.5ML Neb) 0.5 mg Q6R INH 10/21/16 21:00 11/20/16 20:59 10/25/16 07:12 0.5 MG Levalbuterol (Xopenex 1.25MG/ 0.5ML Neb) 1.25 mg Q6R INH 10/21/16 21:00 11/20/16 20:59 10/25/16 07:12 1.25 MG Insulin Glargine (Lantus Solostar Pen) SEE PROTOCOL BID SC 10/22/16 21:00 11/21/16 20:59 10/25/16 08:21 28 UNITS Insulin Aspart (novoLOG ASPART) SLIDING SCALE If C... ACHS SC 10/23/16 07:00 11/22/16 06:59 10/25/16 08:20 24 UNITS Clonidine HCl (Catapres Tab) 0.1 mg Q6H PRN PO 10/23/16 16:00 11/22/16 15:59 Methylprednisolone Sodium Succinate 60 mg/Syringe 0.96 ml @ 1.5 mls/min Q12H IV 10/25/16 00:00 11/21/16 00:00 10/25/16 00:02 1.5 MLS/MIN
[2016-10-25] MEDS ORDERED: PRED10TA PO (10:49)
[2016-10-25] MEDS ORDERED: AMB5 PO ×3 (10:49→11:07)
--- NOTE | 2016-10-25 10:55 | Discharge Instructions ---
Discharge Instructions Date of Service Oct 25, 2016. Admission Reason for Admission: Acute Respiratory Failure Discharge Discharge Diagnosis / Problem: ACUTE RESPIRATOR FAILURE, COPD EXACERBATION Discharge Goals Goal(s): Diagnostic testing, Therapeutic intervention Activity Recommendations Activity Limitations: as noted below (NO HEAVY EXERTION UNTIL RE-EVALUATED BY PRIMARY CARE PHYSICIAN) Lifting Limitations: until after follow-up appointment Exercise/Sports Limitations: until after follow-up appointment . Instructions / Follow-Up Instructions / Follow-Up PLEASE REVIEW YOUR NEW MEDICATION LIST AND FOLLOW INSTRUCTIONS CAREFULLY. YOU SHOULD BE USING PREDNISONE, UBITRON, COMBIVENT, SPIRIVA. PLEASE FOLLOW FLUID RESTRICTION (NO MORE THAN 2 LITERS PER DAY) AND 2 GRAM SALT DIET TO AVOID FLUID OVERLOAD. CALL PRIMARY CARE PHYSICIAN OR RETURN TO ER IMMEDIATELY IF WITH RECURRENCE OF SYMPTOMS. FOLLOW UP WITH DR. CUNHA ON TUESDAY SEPTEMBER 27, 2016 AT 12:45 PM. FOLLOW UP WITH LUNG SPECIALIST DR. NEUMANN IN 1-2 WEEKS. Call your Primary Care doctor if any of the following symptoms or problems start or get worse: * Shortness of breath or difficulty breathing * Wake up at night short of breath * Chest pain * Cough * Swelling of your hands, feet, or legs * More fatigued or tired with your normal activity * Palpitations - sudden fast heart beats WEIGHT * Weigh yourself every morning after using the bathroom. * Use the same scale. * Wear the same amount of clothing. * Write your weight down on a chart. * Call your Primary Care doctor if you gain more than 2-3 pounds in 1-2 days. MEDICATIONS * Use this discharge instruction sheet for medication instructions. * Take your medications at the time your doctor ordered. * Do not skip a dose of your medicines. * If you miss a dose of medicine, take it as soon as possible, but DO NOT DOUBLE A DOSE. * Read your medicine information when you get home. * Know all of the side effects of your medicine. If in doubt, ask your pharmacist * Call your Primary Care doctor's office if you have any side effects. * Be sure all of your doctors know what medicine and herbs you take (including cold, flu, and herbal medicine). Take the following with you to your follow-up doctor appointments: * Weight Chart * Medication List * List of questions Do not drink excessive alcohol, beer or wine. Current Hospital Diet Patient's current hospital diet: Diabetes Type 2 Diet, Low Sodium Diet (2gm Na) Discharge Diet Recommended Diet: AHA Diet (Heart Healthy), Low Sodium Diet (2gm Na), Diabetes Type 2 Diet Fluid Restriction: 2000 ml (8 cups) Pending Studies Studies pending at discharge: no Laboratory Results Hemoglobin A1c Test 09/23/16 07:01 Range/Units Estimated Average Glucose 151 mg/dl Hemoglobin A1c 6.9 H 4.5-5.6 % Medical Emergencies . Who to Call and When: Call 911 or go to the Emergency Room if: * If at any time you feel your situation is an emergency * You have tightness or pain in your chest that does not go away with rest or Nitroglycerin * You are very short of breath even with rest . Non-Emergent Contact Non-Emergency issues call your: Primary Care Provider, Senior Health Physics Technician . . "Provider Documentation" section prepared by Rene Murillo. . VTE Core Measure Inpt VTE Proph given/why not?: Enoxaparin (Lovenox) [place] Drug Monitoring Program Search Results: patient reviewed within database, no issues identified
[2016-10-25] MEDS ORDERED: SPRIN/30 INH (11:05)
[2016-10-25 11:13] VITALS: BP 132/84; PULSE 92; TEMP 36.8; O2SAT 96
--- NOTE | 2016-10-25 11:16 | Discharge Summary ---
Discharge Summary Date of Service Oct 25, 2016. Discharge Summary Admission Date: Oct 21, 2016 at 14:27 Discharge Date: Oct 25, 2016 Discharge Disposition: Home Principal Diagnosis: Acute Hypoxic Respiratory Failure secondary to COPD Exacerbation Secondary Diagnoses/Problems: Please refer to hospital course below. Procedures: SINGLE VIEW CHEST CLINICAL HISTORY: Dyspnea. FINDINGS: An AP, portable, upright chest radiograph is compared to study dated 10/13/2016. Correlation is made with chest CT dated 02/26/2016. The examination is degraded by portable technique and patient rotation. The cardiomediastinal silhouette is unremarkable. Emphysema and chronic interstitial thickening are similar to previous. No airspace consolidation or pleural effusion is identified. No pneumothorax is seen. The skeletal structures are osteopenic. The bony thorax is grossly intact. IMPRESSION: Emphysema with no active disease in the chest. ECHO: Interpretation Summary * Name: PETRA POWERS Study Date: 10/22/2016 07:20 AM BP: 118/70 mmHg * Patient Location: [facility]S\\1 HR: 98 * : 1955 (M/d/yyyy) Gender: Female Height: 63 in * Age: 61 yrs Ethnicity: AA Weight: 247 lb * Ordering Physician: Adrienne Burgos * Referring Physician: Self, Referred * Performed By: Swapnil Tan RDCS * * Reason For Study: Shortness of breath * BSA: 2.1 m2 * -- Conclusions -- * The left ventricle is normal in size. * There is mild concentric left ventricular hypertrophy. * The left ventricular wall motion is normal. * The left ventricle is hyperdynamic. * Ejection Fraction = 65-70%. * Grade I diastolic dysfunction, (abnormal relaxation pattern). * There is mild mitral regurgitation. * There is trace tricuspid regurgitation. * Doppler findings do not suggest pulmonary hypertension. Procedure Details * A complete two-dimensional transthoracic echocardiogram was performed (2D, M- mode, Doppler and color flow Doppler). * The study was technically adequate. Left Ventricle * The left ventricle is normal in size. * There is mild concentric left ventricular hypertrophy. * The left ventricle is hyperdynamic. * Ejection Fraction = 65-70%. * The left ventricular wall motion is normal. Right Ventricle * The right ventricle is normal in size and function. Atria * The left atrial size is normal. * Right atrial size is normal. * No ASD detected; PFO is not assessed. Mitral Valve * The mitral valve anatomy is normal. * There is no mitral valve stenosis. * There is mild mitral regurgitation. Tricuspid Valve * The tricuspid valve anatomy is normal. * There is no tricuspid stenosis. * There is trace tricuspid regurgitation. * Doppler findings do not suggest pulmonary hypertension. Aortic Valve * The aortic valve is trileaflet. * No hemodynamically significant valvular aortic stenosis. * No aortic regurgitation is present. Pulmonic Valve * The pulmonic valve is not well visualized. Great Vessels * The aortic root is normal size. Pericardium/Pleural * There is no pericardial effusion. Great Vessels * Normal inferior vena cava diameter and respiratory variation suggests normal central venous pressure. Left Ventricular Diastolic Function * Grade I diastolic dysfunction, (abnormal relaxation pattern). Consultations: Pulmonary Dr. Neumann/Celso Pending Studies/Follow-Up: Please refer to hospital course below. Medication Reconciliation New Medications: Prednisone Tab (Prednisone) 10 Mg Tab 10 MG PO UD for 12 Days, #28 TAB take 6 tabs po daily x 1 day, then take 4 tabs po daily x 3 days, then take 2 tabs po daily x 3 days, then take 1 tab po daily x 3 days, then take 1/2 tab po daily x 2 days, then STOP Tiotropium [place] (Spiriva Handihaler) 30 Puff/540 Mcg Aerp 1 CAP INH DAILY for 30 Days, #30 CAP 2 Refills Changed Medications: Zolpidem Tartrate (Zolpidem Tartrate) 5 Mg Tab 2.5 MG PO HS PRN for Sleep for 5 Days, #6 TAB (Changed from: 5; TAKE 1 TAB PO AT HS EVERY OTHER DAY NEEDED THEN STOP) TAKE 1/2 TAB PO AT HS EVERY OTHER DAY NEEDED THEN STOP Continued Medications: Acetaminophen Tab (Tylenol) 325 Mg Tab 325-650 MG PO Q6H PRN for Pain or Fever, TAB Albuterol Hfa (Ventolin Hfa) 200 Puffs/79269 Mcg Aers 2 PUFFS INH Q4H PRN for Wheezing, INHALER Aloe-Sodium Chloride ([place] Saline Nasal Gel) 1 Mis Mis 1 APPLN NA BID PRN for Irritation APPLY INSIDE NOSTRIL TWICE A DAY NEEDED Amitriptyline HCl (Amitriptyline HCl) 10 Mg Tab 10 MG PO HS Amlodipine Besylate (Amlodipine Besylate) 5 Mg Tab 5 MG PO DAILY Aspirin (Aspirin Chewable) 81 Mg Chew 81 MG PO DAILY, TAB Atorvastatin (Lipitor) 10 Mg Tab 10 MG PO QAM Azithromycin (Zithromax) 250 Mg Tab 250 MG PO UD PRN for Rescue Kit for 6 Days, TAB NEEDED RESCUE KIT FOLLOWS: TAKE 2 TABLETS ON DAY ONE THEN ONE TABLET DAILY UNTIL GONE Benzonatate (Tessalon Perles) 100 Mg Cap 100-200 MG PO TID PRN for Cough, CAP Cyanocobalamin (Vitamin B12) 1,000 Mcg Tab 1000 MCG PO DAILY Cyclobenzaprine Hcl (Flexeril) 10 Mg Tab 10 MG PO BID PRN for Muscle Spasm Fluticasone Propionate (Fluticasone Propionate) 50 Mcg/Act Spr 2 SPRAYS LIDYA BID Furosemide (Lasix) 20 Mg Tab 20 MG PO QAM, TAB Gabapentin (Neurontin) 100 Mg Cap 100 MG PO TID Glimepiride (Amaryl) 1 Mg Tab 0.5 MG PO QAM PRN for While on Prednisone, 5 Refills Home O2 Therapy (Oxygen) Gas 3 LITERS NA UD, BTL USE WHEN SLEEPING AND NEEDED Hydrocodone/Acetaminophen 5MG/325MG ([place] 5MG/325MG) Tab 1 TABLET PO Q8 PRN for Moderate Pain, TAB Ipratropium-Albuterol (Duoneb) 3 Ml Nebu 1 VIAL NEB Q4H PRN for SOB/Wheezing, INHA Ipratropium-Albuterol (Combivent Respimat) 1 Aer Aer 1 PUFF INH QID, INH Magnesium Oxide (Mag-Ox) 400 Mg Tab 400 MG PO DAILY, TAB Metformin Hcl (Glucophage) 1,000 Mg Tab 1000 MG PO BID Montelukast Sodium (Singulair) 10 Mg Tab 10 MG PO QAM Pantoprazole Sodium (Protonix) 40 Mg Tab 40 MG PO QAM TAKE THIS MEDICATION ONCE DAILY 30 MINUTES BEFORE FIRST MEAL OF THE DAY Potassium Chloride (Potassium Chloride Er) 10 Meq Tab 10 MEQ PO DAILY, TAB Pramipexole Dihydrochloride (Mirapex) 0.5 Mg Tab 0.5 MG PO TID Prednisone Tab (Prednisone) 10 Mg Tab 10 MG PO UD PRN for Rescue Kit, TAB NEEDED RESCUE KIT FOLLOWS: TAKE 5 TABLETS (50 MG) DAILY FOR 4 DAYS THEN, TAKE 4 TABLETS (40 MG) DAILY FOR 4 DAYS THEN, TAKE 3 TABLETS (30 MG) DAILY FOR 4 DAYS THEN, TAKE 2 TABLETS (20 MG) DAILY FOR 4 DAYS THEN, TAKE 1 TABLET (10 MG) DAILY FOR 4 DAYS. Ranitidine Hcl (Zantac) 300 Mg Tab 300 MG PO HS [Utibron] () 1 CAP INH BID Admission Information HPI (per Admitting provider): This is a 61yo F with a PMH of COPD/asthma, HTN, DM II, and other problems noted below who presents in respiratory distress that started this AM. Patient has been seen here multiple times in the past for COPD/asthma exacerbations, including one last winter that required emergent intubation. Patient was seen in August twice for exacerbations that had completely resolved and patient was in her normal state of health until last evening, which she started to notice some SOB at rest. When patient woke up today, she was very dyspneic at rest with wheezing and distress, so she called EMS. Was placed on CPAP and given 1 treamtment of albuterol en route and then switched to Bipap in the ED. Symptoms improved after an hour of nebulizer treatment. Patient is able to answer yes or no questions and speak in short phrases during exam. Denies being on steroids or antibiotics at home but states that she has been prescribed rescue sets of both. Denies any recent URI symptoms, fever, chills, lightheadedness, CP. [facility] with [facility] and states that she has been taking all medications as prescribed. Has been on 2-3L of home O2 PRN since discharge in August. Physical Exam (per Admitting): General Appearance: WD/WN, + moderate distress (Bipap in place, patient able to speak in short phrases.) Head: normocephalic, atraumatic Eyes: normal inspection ENT: hearing grossly normal Neck: supple, no adenopathy, trachea midline Respiratory/Chest: + wheezing (Diffuse wheezing throughout lung pool) Cardiovascular: no murmur, + tachycardia Abdomen/GI: normal bowel sounds, non tender, soft, no organomegaly Neurologic/Psych: no motor/sensory deficits, alert, oriented x 3 Skin: normal color, warm/dry, no rash Hospital Course This is a 61yo F with a PMH of COPD/asthma, HTN, DM II, and other problems noted below who presents in respiratory distress that started this AM. Acute Hypoxic Respiratory Failure secondary to COPD Exacerbation -- Started on Bipap in ED and given neb treatment for 1 hr -- placed on tapering Solumedrol scheduled nebs -- CXR: no signs of pneumonia Levaquin discontinued -- Pulmonary Dr. Neumann consulted patient may also have pulmonary hypertension, may need right heart catheterization -- discharge plan: Prednisone taper to start at Prednisone 60mg continue usual Ubitron, Combivent, Spiriva Lasix 20mg po daily, fluid restriction and 2g Na diet -- ff up with Pulm Dr. Neumann in 1-2 weeks -- patient advised to be careful and follow medication instructions carefully as well as diet restrictions all questions answered, patient and her daughter Shahid are comfortable with plan of care -- ff up with Dr. Jay on 10/28/16 DM II: -Hgb alc of 6.9 09/12 -Well controlled normally but glycemic consult 2/2 steroids - continue usual home medications HTN: -Stable -Continue amlodipine, lasix -Monitor GERD -Continue PPI, Ranitidine DVT Ppx: Lovenox Code status: FULL PCP: Misty Dispo: d/c home today ff up with PCP in 3-5 days ff up with Pulmonary Dr. Neumann in 1-2 weeks Total time spent on discharge = 45 minutes This includes examination of the patient, discharge planning, medication reconciliation, and communication with other providers. Discharge Instructions Discharge Instructions Date of Service Oct 25, 2016. Admission Reason for Admission: Acute Respiratory Failure Discharge Discharge Diagnosis / Problem: ACUTE RESPIRATOR FAILURE, COPD EXACERBATION Discharge Goals Goal(s): Diagnostic testing, Therapeutic intervention Activity Recommendations Activity Limitations: as noted below (NO HEAVY EXERTION UNTIL RE-EVALUATED BY PRIMARY CARE PHYSICIAN) Lifting Limitations: until after follow-up appointment Exercise/Sports Limitations: until after follow-up appointment . Instructions / Follow-Up Instructions / Follow-Up PLEASE REVIEW YOUR NEW MEDICATION LIST AND FOLLOW INSTRUCTIONS CAREFULLY. YOU SHOULD BE USING PREDNISONE, UBITRON, COMBIVENT, SPIRIVA. PLEASE FOLLOW FLUID RESTRICTION (NO MORE THAN 2 LITERS PER DAY) AND 2 GRAM SALT DIET TO AVOID FLUID OVERLOAD. CALL PRIMARY CARE PHYSICIAN OR RETURN TO ER IMMEDIATELY IF WITH RECURRENCE OF SYMPTOMS. FOLLOW UP WITH DR. JAY ON TUESDAY SEPTEMBER 27, 2016 AT 12:45 PM. FOLLOW UP WITH LUNG SPECIALIST DR. NEUMANN IN 1-2 WEEKS. Call your Primary Care doctor if any of the following symptoms or problems start or get worse: * Shortness of breath or difficulty breathing * Wake up at night short of breath * Chest pain * Cough * Swelling of your hands, feet, or legs * More fatigued or tired with your normal activity * Palpitations - sudden fast heart beats WEIGHT * Weigh yourself every morning after using the bathroom. * Use the same scale. * Wear the same amount of clothing. * Write your weight down on a chart. * Call your Primary Care doctor if you gain more than 2-3 pounds in 1-2 days. MEDICATIONS * Use this discharge instruction sheet for medication instructions. * Take your medications at the time your doctor ordered. * Do not skip a dose of your medicines. * If you miss a dose of medicine, take it as soon as possible, but DO NOT DOUBLE A DOSE. * Read your medicine information when you get home. * Know all of the side effects of your medicine. If in doubt, ask your pharmacist * Call your Primary Care doctor's office if you have any side effects. * Be sure all of your doctors know what medicine and herbs you take (including cold, flu, and herbal medicine). Take the following with you to your follow-up doctor appointments: * Weight Chart * Medication List * List of questions Do not drink excessive alcohol, beer or wine. Current Hospital Diet Patient's current hospital diet: Diabetes Type 2 Diet, Low Sodium Diet (2gm Na) Discharge Diet Recommended Diet: AHA Diet (Heart Healthy), Low Sodium Diet (2gm Na), Diabetes Type 2 Diet Fluid Restriction: 2000 ml (8 cups) Pending Studies Studies pending at discharge: no Laboratory Results Hemoglobin A1c Test 09/23/16 07:01 Range/Units Estimated Average Glucose 151 mg/dl Hemoglobin A1c 6.9 H 4.5-5.6 % Medical Emergencies . Who to Call and When: Call 911 or go to the Emergency Room if: * If at any time you feel your situation is an emergency * You have tightness or pain in your chest that does not go away with rest or Nitroglycerin * You are very short of breath even with rest . Non-Emergent Contact Non-Emergency issues call your: Primary Care Provider, Barn Manager . . "Provider Documentation" section prepared by Rene Murillo. . VTE Core Measure Inpt VTE Proph given/why not?: Enoxaparin (Lovenox)SQ [place] Drug Monitoring Program Search Results: patient reviewed within database, no issues identified
[2016-11-17] MEDS ORDERED: PRAM1TAB52 PO (07:01)
[2016-11-17] MEDS ORDERED: FLUC100T4 PO (07:01)
[2016-11-17] MEDS ORDERED: ASPI325T45 PO (07:01)
[2016-11-17] MEDS ORDERED: DICL1GEL12 (07:01)
[2016-11-17] MEDS ORDERED: FERR1TAB13 PO (07:01)
== END 2016-10-25 11:54 | disposition home or self-care (01) | DRG 189 ==
LOC: EDBD 11:33 → C.EDB 11:34 → C.2T 14:27 → ENRESERV 14:44
PROVIDERS: ADMIT Hospitalist; ATTEND Internal Medicine
DX: J96.21 Acute and chronic respiratory failure with hypoxia (principal); J44.1 Chronic obstructive pulmonary disease with (acute) exacerbation; J96.22 Acute and chronic respiratory failure with hypercapnia; F32.9 Major depressive disorder, single episode, unspecified; E11.9 Type 2 diabetes mellitus without complications; K21.9 Gastro-esophageal reflux disease without esophagitis; I10 Essential (primary) hypertension; M06.9 Rheumatoid arthritis, unspecified; G25.81 Restless legs syndrome; Z87.891 Personal history of nicotine dependence; Z83.3 Family history of diabetes mellitus; Z85.41 Personal history of malignant neoplasm of cervix uteri; E66.9 Obesity, unspecified; I27.2 Other secondary pulmonary hypertension; J31.0 Chronic rhinitis

== ENCOUNTER → 2016-11-08 | Outpatient (CLI) | payer OTHER ==
[~2016-11-08] MED LIST changes: +ASPI325T45 PO; +DICL1GEL12; +DXY100 PO; +FERR1TAB13 PO; +FLUC100T4 PO; +GLIM1TAB2 PO; +OXYB5TAB21 PO; +PRAM1TAB52 PO; -PRED20TA2 PO; +SNG10 PO; +SPRIN/30 INH
--- NOTE | 2016-11-08 14:09 | DIAGNOSTIC IMAGING REPORT ---
LUNG IMAGING VQ CLINICAL HISTORY: Dyspnea COMPARISON: None TECHNIQUE: For the ventilation portion of this exam, 33 mCi of DTPA was inhaled at 1:00 PM. Immediately following inhalation, imaging of the chest was carried out in the anterior, posterior, left lateral, right lateral, LPO, RPO, RHIANNON and NGUYEN projections. For the perfusion portion of exam, 5.4 mCi of technetium 99m MAA was injected IV at 1:50 PM. Immediately following injection, imaging of the chest was carried out in the same projections. FINDINGS: Diminished perfusion as well as ventilation over the pulmonary apices bilaterally. No significant ventilation/perfusion mismatch. Moderate central air trapping. IMPRESSION: Low probability of pulmonary embolus. Mild central air trapping. The above report was generated using voice recognition software. It may contain grammatical, syntax or spelling errors. Electronically signed by: Fuentes Lewis M.D. 11/08/2016 2:08 PM Dictated Date/Time: 11/08/2016 2:07 PM
--- NOTE | 2016-11-08 14:55 | DIAGNOSTIC IMAGING REPORT ---
CHEST 2 VIEWS ROUTINE CLINICAL HISTORY: Shortness of breath. COMPARISON STUDY: 10/21/2016 FINDINGS: There is underlying pulmonary emphysema. There is no focal pulmonary consolidation. There is no failure. There are no pleural effusions.[ IMPRESSION: Emphysema. No active disease in the chest. Electronically signed by: Byron Sauceda M.D. 11/08/2016 2:53 PM Dictated Date/Time: 11/08/2016 2:53 PM
== END | disposition home or self-care (01) ==
LOC: C.NUCL 12:26
PROVIDERS: ATTEND Physician Assistant
DX: R06.02 Shortness of breath (principal)

== ENCOUNTER → 2016-11-17 | Day surgery (SDC) | payer OTHER ==
[~2016-11-17] VITALS: Ht 160 cm; Wt 110.0 kg
[~2016-11-17] MED LIST changes: +FENTANYL CITRATE INJ 50 MCG/1 ML 2 ML VIAL ONE; +MIDAZOLAM HCL 1 MG/ML 2ML VIAL ONE
[2016-11-17 07:15] VITALS: BP 139/84; PULSE 99; TEMP 36.5; O2SAT 98; Ht 160 cm; Wt 110.0 kg
--- NOTE | 2016-11-17 08:57 | History & Physical Bridge Note ---
H&P Re-Evaluation Bridge Note: I have examined the patient, reviewed the History & Physical and in the interval since the performance of the History & Physical I have noted the following changes of clinical significance: No changes noted
--- NOTE | 2016-11-17 08:57 | Procedure Note ---
Pre-Mod Sedation Assessment General Date of Moderate Sedation: Nov 17, 2016. Vital Signs: Vital Signs Past 12 Hours Date Time Temp Pulse Resp B/P (MAP) Pulse Ox O2 Delivery O2 Flow Rate FiO2 11/17/16 07:15 36.5 99 16 139/84 98 Room Air Review Cardiovascular: regular rate, rhythm, no edema Abdomen: normal bowel sounds, non tender Lungs: chest non-tender, lungs clear Airway Class: III Pre-Sedation Airway Assessment Oral Cavity: Dentures Able to Visualize Vocal Cords: No Short Thick Neck: Yes Hx of Sleep Apnea: No Smoking Status: Never Smoker Mallampati Classification: Class III ASA Classification: Class III Procedure Planning Contraindications-for Mod Sed: None Yes Notes The planned sedation has been discussed with the patient and consent obtained. I have identified the patient, determined the appropriateness of sedation and have assessed the patient immediately prior to the procedure. All medicine(s) and interventions are by my order.
--- NOTE | 2016-11-17 08:58 | Procedure Note ---
Post-Mod Sedation Assessment General Date of Moderate Sedation Nov 17, 2016. Vital Signs: Vital Signs Past 12 Hours Date Time Temp Pulse Resp B/P (MAP) Pulse Ox O2 Delivery O2 Flow Rate FiO2 11/17/16 07:15 36.5 99 16 139/84 98 Room Air Review - Discharge Criteria Vital Signs Stable: Yes Alert/Oriented/Conversant: Yes Returned to Baseline Mental St: Yes Nausea Absent/Minimal: Yes Pain/Discomfort/Absent/Minimal: Yes Normal/Baseline Respirations: Yes Active Bleeding?: No Pt Received D/C Instructions: Yes Prescriptions Given: None Specific Proced. D/C Criteria Distal Pulses Present (Cardiac: N/A Groin site assessed-Card Cath: N/A Voided Prior To Discharge: N/A Discharged Patients Adult Escort/Transportation: Yes
[2016-11-17 09:18] LABS: ISTAT ARTERIAL BLOOD GAS HCO3 27 meq/L (19-24); ISTAT ARTERIAL BLOOD GAS PCO2 46 mmHg (35-46); ISTAT ARTERIAL BLOOD GAS PO2 36 mmHg (80-95); ISTAT ARTERIAL BLOOD GAS pH 7.39 (7.35-7.45); ISTAT CARBON DIOXIDE 29 mEq/l (24-31)
--- NOTE | 2016-11-17 09:18 | Cardiac Catheterization ---
Procedure Note Procedure Date Nov 17, 2016. Pre-Procedure Diagnosis Cardiothoracic Symptom AUC Score 7 Post-Procedure Diagnosis Elevated Intracardiac Pressures Procedure(s) Performed Right Heart Cath [employer] Gr[employer] Mateo Senior Housekeeper(s) Kleber Estimated Blood Loss 5 Medication(s) Fentanyl, Versed, Lidocaine 1% Summary of Findings Indication: Persistent dyspnea/Recurrent respiratory failure; Evaluation for pulmonary hypertension. Access: 6Fr Slender via right antecubital vein Catheters: 6Fr [place] Findings: RA 8 RV 35/8 PA 33/17 (25) PCW 18 PaSat 67% Pulse Ox - 94% Dayanara CO/CI 6.8/3.2 Thermo CO/CI 7.8/3.7 TPG 7 PVR ~1 Summary: 1. Mildly elevated left and right-sided intracardiac filling pressures (regular antihypertensives, standing diuretic held the morning of procedure) 2. Borderline post-capillary pulmonary hypertension. 3. Preserved cardiac output Recommendations: - Heart failure with preserved ejection fraction likely mildly contributing to patients symptoms. No evidence of significant pulmonary arterial hypertension. - Resume home lasix 20mg daily - Continue current antihypertensives - Salt restriction - Follow daily weights Hemodynamics Rest Ao: Manual BP 143/93 Final Ao: -- LV: -- Recommendations Medical therapy and/or Counseling Specimens None Radiation Exposure (mGy) 45 Contrast (mls) None Fluids (cc crystalloids) 118 Drains None Anesthesia Moderate Procedural Complication(s) None ACC Data Cardiac Status Clinical evaluation leading to the procedure CAD Presntation: Sx unlikely to be ischemic Anginal Classification: No symptoms Heart Failure: NYHA Class: CCS II Cardiogenic Shock w/in 24Hrs: No Imaging studies past 6 months: Yes Stress studies past 6 months: No Closure Device Percutaneous Entry Location: Antecubital vein Closure Device: none - manual hold Recommendations: Medical therapy and/or Counseling
--- NOTE | 2016-11-17 09:26 | Discharge Instructions ---
Discharge Instructions Procedure Procedure Date: Nov 17, 2016. Reason for Visit: Acute Respiratory Failure. Discharge Discharge Date: Nov 17, 2016. Discharge Diagnosis: Asthma/COPD Last Recorded Wt (Kilograms): 110 Anesthesia Post Anesthesia Instructions: If you have had General Anesthesia or IV Sedation: * Do not drive today. * Resume driving when surgeon permits. * Do not make important decisions or sign legal documents today. * Call surgeon for: 1. Temperature elevations greater than 101 degrees F. 2. Uncontrollable pain. 3. Excessive bleeding. 4. Persistent nausea and vomiting. 5. Medication intolerance (nausea, vomiting or rash). * For nausea and vomiting use only clear liquids such as: tea, soda, bouillon until nausea subsides, then gradually increase diet as tolerated. * If you have any concerns or questions, call your surgeon's office. If physician is unavailable and it is an emergency, call 911 or go to the nearest emergency room. Instructions Activity Recommendations: limitations as noted below Recommended Home Diet: low sodium Allergies: Coded Allergies: No Known Allergies (Verified , 10/21/16) Follow Up Additional Instructions: Light activity today. Can resume normal activities tomorrow. Recommend daily weights. Salt restriction Can increase lasix to twice daily if weight up more than 2lbs over 24 hrs, or 5lbs over 3 days. Follow-up with: Dr. Irma Apple Recommendations: Call your doctor if: * Temperature above 101 degrees * Pain not relieved by pain medicine ordered * There is increased drainage or redness from any incision * You have any unanswered questions or concerns. Your Doctors Instructions noted above were prepared by provider Fred Galindo. Patient Signature Section: Patient Instructions Signature Page Angelique Kaminski Patient (or Guardian) Signature/Date: I have read and understand the instructions given to me by my caregivers. Caregiver/RN/Doctor Signature/Date: The above-named patient and/or guardian has received patient instructions on this date. + Original Patient Signature Page (only) stays with chart. Please make copy for patient.
[2016-11-17 10:15] VITALS: BP 122/66; PULSE 95; O2SAT 94
== END | disposition home or self-care (01) ==
LOC: C.CATH 06:55
PROVIDERS: ATTEND Physician Assistant Medical
DX: J44.9 Chronic obstructive pulmonary disease, unspecified (principal); J43.9 Emphysema, unspecified; R06.2 Wheezing; R06.02 Shortness of breath; J96.00 Acute respiratory failure, unspecified whether with hypoxia or hypercapnia; K21.9 Gastro-esophageal reflux disease without esophagitis; E11.9 Type 2 diabetes mellitus without complications; E66.9 Obesity, unspecified; E78.5 Hyperlipidemia, unspecified; Z98.49 Cataract extraction status, unspecified eye; Z80.1 Family history of malignant neoplasm of trachea, bronchus and lung; Z81.8 Family history of other mental and behavioral disorders; Z83.3 Family history of diabetes mellitus; Z83.79 Family history of other diseases of the digestive system; Z83.1 Family history of other infectious and parasitic diseases; Z82.49 Family history of ischemic heart disease and other diseases of the circulatory system; Z80.0 Family history of malignant neoplasm of digestive organs; Z79.84 Long term (current) use of oral hypoglycemic drugs

== ENCOUNTER 2016-11-28 12:13 | Inpatient (IN) | payer OTHER ==
[~2016-11-28] VITALS: Ht 160 cm; Wt 113.5 kg
[2016-11-28] VITALS (9 sets, daily range): BP systolic 106–161; BP diastolic 60–101; PULSE 106–133; TEMP 36.8–37.3; O2SAT 96–100; Ht 160 cm; Wt 113.5 kg
[~2016-11-28 12:13] MED LIST changes: -ACET325T96 PO; -AMB5 PO; -ASPCH81X PO; -AZIT250T PO; -DXY100 PO; -FENTANYL CITRATE INJ 50 MCG/1 ML 2 ML VIAL ONE; -GLIM1TAB PO; -GLIM1TAB2 PO; -MIDAZOLAM HCL 1 MG/ML 2ML VIAL ONE; -OXYB5TAB21 PO; -PRAM1TAB47 PO; -SNG10 PO; -SPRIN/30 INH
[2016-11-28] MEDS ORDERED: SODIUM CHLORIDE 0.9% 1000ML 1,000 ML IV STA (12:18)
[2016-11-28] MEDS ORDERED: LEVAQUIN 750MG / 150ML D5W IV STA (12:18)
[2016-11-28] MEDS ORDERED: MAGNESIUM SULFATE 1GM / D5W 1 GM BAG IV STA (12:18)
[2016-11-28] MEDS ORDERED: ALBUTEROL 0.083% NEBU SOLN 3 ML VIAL INH STA ×2 (12:18→15:52)
[2016-11-28 12:45] LABS: VEN BLD GAS O2 SATURATION 92.4 %
[2016-11-28 12:57] LABS: BASO % 0.3 %; BASO ABS # 0.03 K/uL (0-0.2); COMPLETE YES; EOS % 1.4 %; HEMATOCRIT 37.5 % (37-47); IG% 0.3 %; LYMPH % 36.3 %; MEAN CORPUSCULAR HEMOGLOBIN 26.5 pg (25-34); MEAN CORPUSCULAR HGB CONC 30.4 g/dl (32-36); MEAN PLATELET VOLUME 8.9 fL (7.4-10.4); NEUT % 53.7 %; PLATELET COUNT 324 K/uL (130-400); RED BLOOD COUNT 4.31 M/uL (4.2-5.4); WHITE BLOOD COUNT 11.56 K/uL (4.8-10.8)
[2016-11-28 13:06] LABS: INR 0.9 (0.9-1.1); PARTIAL THROMBOPLASTIN RATIO 0.9; PROTHROMBIN TIME (PATIENT) 9.9 SECONDS (9.0-12.0)
--- NOTE | 2016-11-28 13:10 | DIAGNOSTIC IMAGING REPORT ---
SINGLE VIEW CHEST CLINICAL HISTORY: Dyspnea. FINDINGS: An AP, portable, upright chest radiograph is compared to study dated 11/08/2016 and correlated with chest CT dated 02/26/2016. The examination is degraded by portable technique, large body habitus, and patient rotation. The cardiomediastinal silhouette is unremarkable. Emphysema and chronic interstitial thickening are similar to previous. No airspace consolidation, large pleural effusion, or pneumothorax is seen. The skeletal structures are osteopenic. The bony thorax is grossly intact. IMPRESSION: Emphysema with no acute cardiopulmonary abnormality. Electronically signed by: Navin Fletcher M.D. 11/28/2016 1:08 PM Dictated Date/Time: 11/28/2016 1:07 PM
[2016-11-28 13:15] LABS: ALT/SGPT 31 U/L (12-78); AST/SGOT 16 U/L (15-37); BLOOD UREA NITROGEN 14 mg/dl (7-18); CARBON DIOXIDE 29 mmol/L (21-32); CHLORIDE 103 mmol/L (98-107); CREATININE 0.78 mg/dl (0.60-1.20); GLUCOSE 156 mg/dl (70-99); POTASSIUM 3.5 mmol/L (3.5-5.1); SODIUM 141 mmol/L (136-145)
[2016-11-28 13:20] LABS: ALKALINE PHOSPHATASE 78 U/L (45-117)
[2016-11-28] MEDS ORDERED: ACETAMINOPHEN 325 MG TAB PO PRN (16:15)
[2016-11-28] MEDS ORDERED: OXYB5TAB21 PO (16:49)
[2016-11-28] MEDS ORDERED: GLIM1TAB2 PO (16:49)
[2016-11-28] MEDS ORDERED: SPRIN/30 INH (16:49)
[2016-11-28] MEDS ORDERED: PRAM1TAB47 PO (16:49)
[2016-11-28] MEDS ORDERED: BENZONATATE 100MG CAP PO PRN (17:00)
[2016-11-28] MEDS ORDERED: LEVALBUTEROL 0.63MG/3 ML NEB INH PRN (17:00)
[2016-11-28] MEDS ORDERED: CYCLOBENZAPRINE HCL 10 MG TAB PO PRN (17:00)
[2016-11-28] MEDS ORDERED: D5W AND LACTATED RINGERS 1,000 ML IV SCH (17:00)
--- NOTE | 2016-11-28 17:02 | History and Physical ---
History & Physical Date & Time of Service: Nov 28, 2016 at 17:02 . Chief Complaint: trouble breathing . Primary Care Physician: Martina Jay M.D. . History of Present Illness Source: patient, clinic records, hospital records 61 YO female followed by Dr. Martina Jay for Internal Medicine; followed by Trista Haque PA-C + Dr. Solis for Pulmonary Medicine. History of obstructive lung disease (asthma / COPD), hypertension, DM type 2, and other problems noted below. On intermittent steroid therapy for exacerbations of her obstructive lung disease. Has required intubation + mechanical ventilation in the past. On home O2 HS for nocturnal hypoxia. Noted increasing dyspnea 2 days prior to admission. Occasional nonproductive cough. No fever or chills. No chest pain. Wheezing and dyspnea worse today. Tried nebulizer treatments at home without significant benefit. Called EMS. Nebulizer treatment with DuoNeb and methylprednisolone administered in the field. Brought to the ED for evaluation. Upon arrival, patient was in respiratory distress and BiPAP was initiated for ventilatory support. . Past Medical/Surgical History Chronic and Resolved Medical Problems: (1) Anemia Status: Chronic (2) Asthma Status: Chronic (3) Carpal tunnel syndrome Status: Chronic (4) COPD (chronic obstructive pulmonary disease) Status: Chronic (5) Depression Status: Chronic (6) Diabetes mellitus, type 2 Status: Chronic (7) GERD (gastroesophageal reflux disease) Status: Chronic (8) Hiatal hernia Status: Chronic (9) History of cervical cancer Permanent Comment: s/p laser Status: Chronic (10) Hyperlipidemia Status: Chronic (11) Hypertension Status: Chronic (13) Intervertebral disc disorder Permanent Comment: C5-C6 Status: Chronic (14) Nocturnal hypoxia Permanent Comment: home O2 2 LPM HS Status: Chronic (15) Osteoarthritis Status: Chronic (16) Reflux esophagitis Status: Chronic (17) Restless leg syndrome Status: Chronic Surgical Problems: (1) H/O colonoscopy Status: Chronic (2) History of esophagogastroduodenoscopy (EGD) Status: Chronic . Family History Diabetes mellitus FH: heart disease FH: lung disease FHx: cancer Hypertension Social History Smoking Status: Former Smoker Alcohol Use: none Drug Use: none Marital Status: single Housing status: lives with family Occupational Status: disabled Immunizations History of Influenza Vaccine: Yes History of Tetanus Vaccine?: No History of Pneumococcal: Yes History of Hepatitis B Vaccine: No Multi-Drug Resistant Organisms History of MDRO: No Allergies Coded Allergies: No Known Allergies (Verified , 11/28/16) Home Medications Scheduled Amitriptyline HCl (Amitriptyline HCl), 10 MG PO HS Amlodipine Besylate (Amlodipine Besylate), 5 MG PO DAILY Aspirin (Aspirin), 325 MG PO DAILY Atorvastatin (Lipitor), 10 MG PO QAM Cyanocobalamin (Vitamin B12), 1,000 MCG PO DAILY Ferrous Sulfate (Kp Ferrous Sulfate), 1 TAB PO WM Fluticasone Propionate (Fluticasone Propionate), 2 SPRAYS LIDYA BID Furosemide (Lasix), 20 MG PO QAM Gabapentin (Neurontin), 100 MG PO TID Glimepiride (Glimepiride), 0.5 TAB PO DAILY Home O2 Therapy (Oxygen), 3 LITERS NA UD Ipratropium-Albuterol (Combivent Respimat), 1 PUFF INH QID Magnesium Oxide (Mag-Ox), 400 MG PO DAILY Metformin Hcl (Glucophage), 1,000 MG PO BID Oxybutynin Chloride (Ditropan Xl), 5 MG PO DAILY Pantoprazole Sodium (Protonix), 40 MG PO QAM Potassium Chloride (Potassium Chloride Er), 10 MEQ PO DAILY Pramipexole Dihydrochloride (Mirapex), 0.5 MG PO TID Ranitidine Hcl (Zantac), 300 MG PO HS Tiotropium Sledge (Spiriva Handihaler), 1 CAP INH DAILY [Utibron], 1 CAP INH BID Scheduled PRN Albuterol Hfa (Ventolin Hfa), 2 PUFFS INH Q4H PRN for Wheezing Benzonatate (Tessalon Perles), 100-200 MG PO TID PRN for Cough Cyclobenzaprine Hcl (Flexeril), 10 MG PO BID PRN for Muscle Spasm Diclofenac Sodium (Topical) (Voltaren 1% Top Gel), for Documentation Hydrocodone/Acetaminophen 5MG/325MG ([place] 5MG/325MG), 1 TABLET PO Q8 PRN for Moderate Pain Ipratropium-Albuterol (Duoneb), 1 VIAL NEB Q4H PRN for SOB/Wheezing Prednisone Tab (Prednisone), 10 MG PO UD PRN for Rescue Kit Review of Systems Constitutional: No fever, No weight loss Eyes: + worsening of vision (occasonal blurred vision) ENT: No nasal symptoms Respiratory: + problem reported (as noted above in HPI) Cardiovascular: + edema (mild, chronic), No chest pain Abdomen: No pain, No nausea, No vomiting, No diarrhea, No GI bleeding Musculoskeletal: + joint pain Genitourinary - Female: No dysuria, No hematuria Neurologic: + problem reported (intermittent headaches) Endocrine: + fatigue, No excessive thirst, No excessive urination Hematologic / Lymphatic: + abnormal bleeding/bruising, No swollen lymph nodes Integumentary: + problem reported (lesions on lower extremities) Physical Exam Vital Signs Date Time Temp Pulse Resp B/P (MAP) Pulse Ox O2 Delivery O2 Flow Rate FiO2 11/28/16 16:39 114 14 100 60 11/28/16 16:07 117 24 161/77 100 BiPAP 11/28/16 15:00 108 24 115/86 100 BiPAP 11/28/16 14:10 113 20 128/82 100 BiPAP 6.0 11/28/16 13:03 122 24 119/92 100 BiPAP 6.0 11/28/16 12:42 133 97 60 11/28/16 12:41 129 26 97 BiPAP/CPAP 60 11/28/16 12:27 36.8 132 28 163/123 100 Oxymask 15.0 11/28/16 12:23 137 11/28/16 12:22 100 Oxymask 15.0 11/28/16 12:22 100 Oxymask 15.0 11/28/16 12:22 100 Oxyhood 15.0 General Appearance: + moderate distress, + obese Head: normocephalic, atraumatic Eyes: PERRL, EOMI, sclerae normal (conjunctivae pink) ENT: pharynx normal, + pertinent finding (wearing BiPAP) Neck: supple, no adenopathy, thyroid normal, no JVD, trachea midline Respiratory/Chest: + respiratory distress, + accessory muscle use, + pertinent finding (diffuse moderate-severe wheezing; no rhonchi) Cardiovascular: regular rate, rhythm, no edema, no gallop, no JVD, no murmur, normal peripheral pulses Abdomen/GI: normal bowel sounds, non tender, soft, no organomegaly, no pulsatile mass, + pertinent finding (exam limited due to body habitus) Extremities/Musculoskelatal: normal inspection, no calf tenderness, no pedal edema 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 (PERRL, EOMI), no motor/sensory deficits (grossly intact), alert, oriented x 3 Skin: normal color, warm/dry, + pertinent finding (pigmented lesions bilat legs , ankles, dorsum of feet measuring up to 5 mm, pigmented, rough surface) Lymphatic: no adenopathy (cervical) Diagnostics Laboratory Results Results Past 24 Hours Test 11/28/16 12:38 11/28/16 12:41 Range/Units Venous Blood pH 7.36 7.36-7.41 Venous Blood Partial Pressure CO2 55 38.0-50.0 mmHg Venous Blood Partial Pressure O2 74 mmHg Venous Blood HCO3 31 mmol/L Venous Blood Oxygen Saturation 92.4 % Venous Blood Base Excess 4.0 mEq/L White Blood Count 11.56 4.8-10.8 K/uL Red Blood Count 4.31 4.2-5.4 M/uL Hemoglobin 11.4 12.0-16.0 g/dL Hematocrit 37.5 37-47 % Mean Corpuscular Volume 87.0 80-100 fL Mean Corpuscular Hemoglobin 26.5 25-34 pg Mean Corpuscular Hemoglobin Concent 30.4 32-36 g/dl Platelet Count 324 130-400 K/uL Mean Platelet Volume 8.9 7.4-10.4 fL Neutrophils (%) (Auto) 53.7 % Lymphocytes (%) (Auto) 36.3 % Monocytes (%) (Auto) 8.0 % Eosinophils (%) (Auto) 1.4 % Basophils (%) (Auto) 0.3 % Neutrophils # (Auto) 6.21 1.4-6.5 K/uL Lymphocytes # (Auto) 4.20 1.2-3.4 K/uL Monocytes # (Auto) 0.93 0.11-0.59 K/uL Eosinophils # (Auto) 0.16 0-0.5 K/uL Basophils # (Auto) 0.03 0-0.2 K/uL RDW Standard Deviation 50.3 36.4-46.3 fL RDW Coefficient of Variation 15.7 11.5-14.5 % Immature Granulocyte % (Auto) 0.3 % Immature Granulocyte # (Auto) 0.03 0.00-0.02 K/uL Prothrombin Time 9.9 9.0-12.0 SECONDS Prothromb Time International Ratio 0.9 0.9-1.1 Activated Partial Thromboplast Time 22.6 21.0-31.0 SECONDS Partial Thromboplastin Ratio 0.9 Sodium Level 141 136-145 mmol/L Potassium Level 3.5 3.5-5.1 mmol/L Chloride Level 103 98-107 mmol/L Carbon Dioxide Level 29 21-32 mmol/L Anion Gap 9.0 3-11 mmol/L Blood Urea Nitrogen 14 7-18 mg/dl Creatinine 0.78 0.60-1.20 mg/dl Est Creatinine Clear Calc Drug Dose 90.6 ml/min Estimated GFR () 94.4 Estimated GFR (Non- 81.5 BUN/Creatinine Ratio 18.0 10-20 Random Glucose 156 70-99 mg/dl Calcium Level 9.0 8.5-10.1 mg/dl Total Bilirubin 0.2 0.2-1 mg/dl Aspartate Amino Transf (AST/SGOT) 16 15-37 U/L Alanine Aminotransferase (ALT/SGPT) 31 12-78 U/L Alkaline Phosphatase 78 45-117 U/L Troponin I < 0.015 0-0.045 ng/ml Pro-B-Type Natriuretic Peptide 9 0-900 pg/ml Total Protein 7.1 6.4-8.2 gm/dl Albumin 3.6 3.4-5.0 gm/dl Globulin 3.5 2.5-4.0 gm/dl Albumin/Globulin Ratio 1.0 0.9-2 Diagnostic Radiology SINGLE VIEW CHEST FINDINGS: An AP, portable, upright chest radiograph is compared to study dated 11/08/2016 and correlated with chest CT dated 02/26/2016. The examination is degraded by portable technique, large body habitus, and patient rotation. The cardiomediastinal silhouette is unremarkable. Emphysema and chronic interstitial thickening are similar to previous. No airspace consolidation, large pleural effusion, or pneumothorax is seen. The skeletal structures are osteopenic. The bony thorax is grossly intact. IMPRESSION: Emphysema with no acute cardiopulmonary abnormality. Electronically signed by: Navin Fletcher M.D. 11/28/2016 1:08 PM Dictated Date/Time: 11/28/2016 1:07 PM . EKG EKG performed at 12:[address] at 126 / minute, no acute ST or T-wave abnormalities. . Impression Assessment and Plan EXACERBATION OF COPD / ASTHMA History of severe obstructive lung disease with frequent exacerbations. No infiltrates on chest x-ray. Possible bronchitis. Consider environmental exposure. Consider GERD with aspiration. Methylprednisolone 125 mg IV administered by EMS; continue @ 40 mg q 12 hrs and taper as able. Nebulizer treatments with levalbuterol and ipratropium. Antibiotic therapy with doxycycline for possible bronchitis. Consult Pulmonary Medicine. NOCTURNAL HYPOXIA Continue nocturnal O2. HYPERTENSION Continue amlodipine. Follow and titrate therapy. GERD Continue ranitidine and PPI. DIABETES MELLITUS TYPE 2 Anticipate elevated blood sugars due to acute illness and intravenous steroids. Check hemoglobin A1c. Hold oral agents during hospital stay. Lantus/NovoLog per protocol. VTE PROPHYLAXIS Moderate risk for VTE. SQ enoxaparin. Ambulate as able. RESUSCITATION STATUS Full resuscitation. UNCERTAIN MEDICATION RECONCILIATION Unable to verify outpatient medications at time of admission due to respiratory distress. Outpatient medications should be reviewed prior to discharge with corrections made as necessary. DISPOSITION Admit to Telemetry Unit. Expected discharge to home. Internal Medicine follow-up with Dr. Martina Jay. Pulmonary Medicine follow-up with Trista Haque PA-C and Dr. Solis. . VTE Prophylaxis VTE Risk Assessment Done? Y/N: Yes Risk Level: Moderate Given or contraindicated: Enoxaparin (Lovenox)SQ
[2016-11-28] MEDS ORDERED: GLUCOSE 10 TABS/TUBE PO PRN (17:30)
[2016-11-28] MEDS ORDERED: DEXTROSE 50% 50 ML SYR IV PRN (17:30)
[2016-11-28] MEDS ORDERED: GLUCAGON FOR INJ 1 MG VIAL SQ PRN (17:30)
[2016-11-28] MEDS ORDERED: GLUCOSE 40% GEL 15 GM TUBE PO PRN (17:30)
--- NOTE | 2016-11-28 17:30 | EMERGENCY ROOM VISIT NOTE ---
History Report prepared by Hiral: Hector Lopez Under the Supervision of: Dr. Pedro Welch D.O. First contact with patient: 12:13 Stated Complaint: asthma History of Present Illness The patient is a 61 year old female who presents to the Emergency Room with complaints of worsening shortness of breath starting yesterday. The patient additionally states that she has been having some chest tightness for the past three days. She states that she has been coughing up yellow sputum. The patient states that she has a history of asthma, and this feels like her usual flares, though this one seems worse. She states that she is currently on steroids once per day, and she just finished a Z-pack for the past five days. The patient additionally has a history of COPD and diabetes, and she denies any history of blood clots. She states that she has been intubated in the past for her asthma flares. The patient has had 5.mg of Ativan, one DuoNeb, one albuterol, and 125 Solu-Medrol. Pt denies headache, change in vision, fevers, chest pain, nausea, vomiting, diarrhea, and pain with urination. Medical command was received on the patient. Source of History: patient, EMS Onset: yesterday Position: other (global) Quality: other (shortness of breath) Timing: worsening Associated Symptoms: + cough Note: Associated symptoms: chest tightness Review of Systems See HPI for pertinent positives & negatives. A total of 10 systems reviewed and were otherwise negative. Past Medical & Surgical Medical Problems: (1) Acute respiratory failure (2) Anemia (3) Asthma (4) Asthma, Unspecified (5) Carpal tunnel syndrome (6) COPD (chronic obstructive pulmonary disease) (7) COPD exacerbation (8) Depression (9) Diabetes mellitus, type 2 (10) Esophageal Reflux (11) GERD (gastroesophageal reflux disease) (12) Hiatal hernia (13) History of cervical cancer (14) Hyperlipidemia (15) Hypertension (16) Hypertension (17) Intervertebral disc disorder (18) Nocturnal hypoxia (19) Obstructive Chronic Bronchitis With Acute Bronchitis (20) Osteoarthritis (21) Reflux esophagitis (22) Restless leg syndrome (23) Restless Legs Syndrome (24) Rheumatoid Arthritis (25) Tobacco Use Disorder Surgical Problems: (1) H/O colonoscopy (2) History of esophagogastroduodenoscopy (EGD) Family History Diabetes mellitus FH: heart disease FH: lung disease FHx: cancer Hypertension Social History Smoking Status: Never Smoker Alcohol Use: none Drug Use: none Marital Status: single Housing Status: lives alone Occupation Status: disabled Current/Historical Medications Scheduled Amitriptyline HCl (Amitriptyline HCl), 10 MG PO HS Amlodipine Besylate (Amlodipine Besylate), 5 MG PO DAILY Aspirin (Aspirin), 325 MG PO DAILY Atorvastatin (Lipitor), 10 MG PO QAM Cyanocobalamin (Vitamin B12), 1,000 MCG PO DAILY Ferrous Sulfate (Kp Ferrous Sulfate), 1 TAB PO WM Fluticasone Propionate (Fluticasone Propionate), 2 SPRAYS LIDYA BID Furosemide (Lasix), 20 MG PO QAM Gabapentin (Neurontin), 100 MG PO TID Glimepiride (Glimepiride), 0.5 TAB PO DAILY Home O2 Therapy (Oxygen), 3 LITERS NA UD Ipratropium-Albuterol (Combivent Respimat), 1 PUFF INH QID Magnesium Oxide (Mag-Ox), 400 MG PO DAILY Metformin Hcl (Glucophage), 1,000 MG PO BID Oxybutynin Chloride (Ditropan Xl), 5 MG PO DAILY Pantoprazole Sodium (Protonix), 40 MG PO QAM Potassium Chloride (Potassium Chloride Er), 10 MEQ PO DAILY Pramipexole Dihydrochloride (Mirapex), 0.5 MG PO TID Ranitidine Hcl (Zantac), 300 MG PO HS Tiotropium [place] (Spiriva Handihaler), 1 CAP INH DAILY [Utibron], 1 CAP INH BID Scheduled PRN Albuterol Hfa (Ventolin Hfa), 2 PUFFS INH Q4H PRN for Wheezing Benzonatate (Tessalon Perles), 100-200 MG PO TID PRN for Cough Cyclobenzaprine Hcl (Flexeril), 10 MG PO BID PRN for Muscle Spasm Diclofenac Sodium (Topical) (Voltaren 1% Top Gel), for Documentation Hydrocodone/Acetaminophen 5MG/325MG (Sebring 5MG/325MG), 1 TABLET PO Q8 PRN for Moderate Pain Ipratropium-Albuterol (Duoneb), 1 VIAL NEB Q4H PRN for SOB/Wheezing Prednisone Tab (Prednisone), 10 MG PO UD PRN for Rescue Kit Allergies Coded Allergies: No Known Allergies (Verified , 11/28/16) Physical Exam Vital Signs Date Time Temp Pulse Resp B/P (MAP) Pulse Ox O2 Delivery O2 Flow Rate FiO2 11/28/16 16:39 114 14 100 60 11/28/16 16:07 117 24 161/77 100 BiPAP 11/28/16 15:00 108 24 115/86 100 BiPAP 11/28/16 14:10 113 20 128/82 100 BiPAP 6.0 11/28/16 13:03 122 24 119/92 100 BiPAP 6.0 11/28/16 12:42 133 97 60 11/28/16 12:41 129 26 97 BiPAP/CPAP 60 11/28/16 12:27 36.8 132 28 163/123 100 Oxymask 15.0 11/28/16 12:23 137 11/28/16 12:22 100 Oxymask 15.0 11/28/16 12:22 100 Oxymask 15.0 11/28/16 12:22 100 Oxyhood 15.0 Physical Exam GENERAL: Sitting up in bed in significant distress. Tachypneic and dyspneic with conversation. EYE EXAM: normal conjunctiva OROPHARYNX: no exudate, no erythema, lips, buccal mucosa, and tongue normal and mucous membranes are moist NECK: No appreciable JVD. Supple, no nuchal rigidity, no adenopathy, non-tender LUNGS: Minimal air movement with inspiration. Prolonged expiratory phase. Bilateral wheezing. HEART: Tachycardic. no murmurs, S1 normal and S2 normal ABDOMEN: abdomen soft, non-tender, normo-active bowel sounds, no masses, no rebound or guarding. BACK: Back is symmetrical on inspection and there is no deformity, no midline tenderness, no CVA tenderness. SKIN: no rashes and no bruising UPPER EXTREMITIES: upper extremities are grossly normal. LOWER EXTREMITIES: Calves are equal bilaterally. No pitting edema. NEURO EXAM: Normal sensorium, cranial nerves II-XII grossly intact, normal speech, no gross weakness of arms, no gross weakness of legs. Gross sensation intact. Medical Decision & Procedures ER Provider Diagnostic Interpretation: Radiology results as stated below per my review and the radiologist's interpretation: SINGLE VIEW CHEST CLINICAL HISTORY: Dyspnea. FINDINGS: An AP, portable, upright chest radiograph is compared to study dated 11/08/2016 and correlated with chest CT dated 02/26/2016. The examination is degraded by portable technique, large body habitus, and patient rotation. The cardiomediastinal silhouette is unremarkable. Emphysema and chronic interstitial thickening are similar to previous. No airspace consolidation, large pleural effusion, or pneumothorax is seen. The skeletal structures are osteopenic. The bony thorax is grossly intact. IMPRESSION: Emphysema with no acute cardiopulmonary abnormality. Electronically signed by: Navin Fletcher M.D. 11/28/2016 1:08 PM Dictated Date/Time: 11/28/2016 1:07 PM Laboratory Results 11/28/16 12:41 Red Blood Count 4.31, Mean Corpuscular Volume 87.0, Mean Corpuscular Hemoglobin 26.5, Mean Corpuscular Hemoglobin Concent 30.4, Mean Platelet Volume 8.9, Neutrophils (%) (Auto) 53.7, Lymphocytes (%) (Auto) 36.3, Monocytes (%) (Auto) 8.0, Eosinophils (%) (Auto) 1.4, Basophils (%) (Auto) 0.3, Neutrophils # (Auto) 6.21, Lymphocytes # (Auto) 4.20, Monocytes # (Auto) 0.93, Eosinophils # (Auto) 0.16, Basophils # (Auto) 0.03 11/28/16 12:41 Test 11/28/16 12:38 11/28/16 12:41 Venous Blood pH 7.36 (7.36-7.41) Venous Blood Partial Pressure CO2 55 mmHg (38.0-50.0) Venous Blood Partial Pressure O2 74 mmHg Venous Blood HCO3 31 mmol/L Venous Blood Oxygen Saturation 92.4 % Venous Blood Base Excess 4.0 mEq/L White Blood Count 11.56 K/uL (4.8-10.8) Red Blood Count 4.31 M/uL (4.2-5.4) Hemoglobin 11.4 g/dL (12.0-16.0) Hematocrit 37.5 % (37-47) Mean Corpuscular Volume 87.0 fL (80-100) Mean Corpuscular Hemoglobin 26.5 pg (25-34) Mean Corpuscular Hemoglobin Concent 30.4 g/dl (32-36) Platelet Count 324 K/uL (130-400) Mean Platelet Volume 8.9 fL (7.4-10.4) Neutrophils (%) (Auto) 53.7 % Lymphocytes (%) (Auto) 36.3 % Monocytes (%) (Auto) 8.0 % Eosinophils (%) (Auto) 1.4 % Basophils (%) (Auto) 0.3 % Neutrophils # (Auto) 6.21 K/uL (1.4-6.5) Lymphocytes # (Auto) 4.20 K/uL (1.2-3.4) Monocytes # (Auto) 0.93 K/uL (0.11-0.59) Eosinophils # (Auto) 0.16 K/uL (0-0.5) Basophils # (Auto) 0.03 K/uL (0-0.2) RDW Standard Deviation 50.3 fL (36.4-46.3) RDW Coefficient of Variation 15.7 % (11.5-14.5) Immature Granulocyte % (Auto) 0.3 % Immature Granulocyte # (Auto) 0.03 K/uL (0.00-0.02) Prothrombin Time 9.9 SECONDS (9.0-12.0) Prothromb Time International Ratio 0.9 (0.9-1.1) Activated Partial Thromboplast Time 22.6 SECONDS (21.0-31.0) Partial Thromboplastin Ratio 0.9 Anion Gap 9.0 mmol/L (3-11) Est Creatinine Clear Calc Drug Dose 90.6 ml/min Estimated GFR () 94.4 Estimated GFR (Non- 81.5 BUN/Creatinine Ratio 18.0 (10-20) Calcium Level 9.0 mg/dl (8.5-10.1) Total Bilirubin 0.2 mg/dl (0.2-1) Aspartate Amino Transf (AST/SGOT) 16 U/L (15-37) Alanine Aminotransferase (ALT/SGPT) 31 U/L (12-78) Alkaline Phosphatase 78 U/L (45-117) Troponin I < 0.015 ng/ml (0-0.045) Pro-B-Type Natriuretic Peptide 9 pg/ml (0-900) Total Protein 7.1 gm/dl (6.4-8.2) Albumin 3.6 gm/dl (3.4-5.0) Globulin 3.5 gm/dl (2.5-4.0) Albumin/Globulin Ratio 1.0 (0.9-2) Laboratory results per my review. Medications Administered Medications (Trade) Dose Ordered Sig/Allison Route Start Time Stop Time Status Last Admin Dose Admin Levofloxacin (Levaquin / D5W) 750 mg NOW STAT IV 11/28/16 12:18 11/28/16 12:22 DC 11/28/16 12:59 750 MG Sodium Chloride 1,000 ml @ 999 mls/hr Q1H1M STAT IV 11/28/16 12:18 11/28/16 13:18 DC 11/28/16 12:59 999 MLS/HR Albuterol Sulfate (Ventolin 0.083% 2.5MG/3ML Neb) 10 mg NOW STAT INH 11/28/16 12:18 11/28/16 12:22 DC 11/28/16 12:40 10 MG Magnesium Sulfate (Magnesium Sulfate) 2 gm NOW STAT IV 11/28/16 12:18 11/28/16 12:22 DC 11/28/16 12:45 2 GM Albuterol Sulfate (Ventolin 0.083% 2.5MG/3ML Neb) 5 mg NOW STAT INH 11/28/16 15:52 11/28/16 15:54 DC 11/28/16 16:37 5 MG ECG Indication: SOB/dyspnea Rate (beats per minute): 126 Rhythm: sinus tachycardia Findings: no ectopy, other (Normal axis) ED Course ED COURSE: Vital signs were reviewed and showed tachycardia, hypoxia, and tachypnea The patients medical record was reviewed The above diagnostic studies were performed and reviewed. ED treatments and interventions as stated above. 1213: The patient was evaluated in room B12. A complete history and physical examination was performed. 1218: Magnesium Sulfate 2gm IV, Ventolin 0.083% 2.5mg/3ml Nab 10mg INH, Sodium Chloride 1000 ml @ 999 mls/hr IV, Levofloxacin 750mg IV 1234: I reevaluated the patient, and she was doing well on BIPAP, and her heart rate was in the 130s 1340: I reviewed the patient's case with Michaela Dave. He will evaluate the patient for further management. 1342: Upon reevaluation, the patient is doing well. I discussed my findings with the patient and she understands and agrees with the treatment plan. Based on the patients age, coexisting illnesses, exam and lab findings the decision to treat as an inpatient was made. The patient remained stable while under my care. The patient will be evaluated for further management. 1444: I reassessed the patient, and she was still doing well on BIPAP Medical Decision Differential diagnoses includes but is not limited to pneumonia, bronchitis, COPD/Asthma exacerbation, pneumothorax, pulmonary embolism, congestive heart failure, acute coronary syndrome. Patient is a 61-year-old female who presents to ER via EMS who gave medical command 2. Patient is an asthmatic and COPD her that wears 3-5 L intermittently. Upon presentation she is tachypneic with conversation nearly unable to talk, diaphoretic and in significant distress. CBC along with BMP, LFTs, bilirubin and troponin were unremarkable. Patient was given 2 doses of magnesium along with 4 doses of albuterol. Patient was immediately placed on BiPAP upon presentation. CBC all BMP, LFTs, bilirubin and troponin were unremarkable. INR was unremarkable. PCO2 slightly elevated. Chest x-ray shows no focal infiltrate. EKG was nondiagnostic. Symptoms improved significantly following nebs and magnesium. Patient was are given steroids prior to arrival. I gave her Levaquin as well she remained on BiPAP in the ER for over 2 hours significant improved. Heart rate trended down from the 140s to low 100. Respiratory rate improved significantly. Medication Reconcilliation Current Medication List: was personally reviewed by me Blood Pressure Screening Patient's blood pressure: Normal blood pressure Consults Time Called: 1337 Consulting Physician: Michaela Reza Returned Call: 1340 I reviewed the patient's case with Michaela Reza. He will evaluate the patient for further management. Impression Primary Impression: Acute respiratory failure Additional Impression: COPD exacerbation Critical Care I have personally spent 75 minutes of critical care time in the direct management of this patient. This includes bedside care, interpretation of diagnostic studies, and testing, discussion with consultants, patient, and family members, and other required patient management activities. This 75 minutes is in excess of all separately billable procedures. Scribe Attestation The scribe's documentation has been prepared under my direction and personally reviewed by me in its entirety. I confirm that the note above accurately reflects all work, treatment, procedures, and medical decision making performed by me. Departure Information Dispostion Being Evaluated By Hospitalist Referrals Martina Jay M.D. (PCP) Problem Qualifiers Primary Impression: Acute respiratory failure Respiratory failure complication: hypoxia and hypercapnia Qualified Codes: J96.01 - Acute respiratory failure with hypoxia; J96.02 - Acute respiratory failure with hypercapnia
[2016-11-28] MEDS ORDERED: NURSING VERBAL MED ORDER ONE (19:00)
[2016-11-28] MEDS ORDERED: COUGH DROP (SUGAR FREE) LOZ 24 LOZ/1 BOX PO PRN (19:00)
[2016-11-28] MEDS: IPRATROPIUM BROMIDE NEB SOLN 0.02% 2.5 ML VIAL INH SCH (19:11)
[2016-11-28] MEDS: LEVALBUTEROL 1.25MG/0.5ML NEB INH SCH (19:11)
[2016-11-28] MEDS: AMITRIPTYLINE HCL 10 MG TAB PO SCH (20:49)
[2016-11-28] MEDS: FLUTICASONE PROPIONATE NA SPR 16 GM BTL NAE SCH (20:50)
[2016-11-28] MEDS: ENOXAPARIN 40 MG/0.4 ML SYR SQ SCH (20:50)
[2016-11-28] MEDS: DOXYCYCLINE HYCLATE 100 MG CAP PO SCH (20:51)
[2016-11-28] MEDS: RANITIDINE HCL 150 MG TAB PO SCH (20:51)
[2016-11-28] MEDS: POTASSIUM CHLORIDE 10 MEQ TABCR PO SCH (20:52)
[2016-11-28] MEDS: METHYLPREDNISOLONE IV 40 MG in SYRINGE 0 ML IV SCH (20:52)
[2016-11-28] MEDS: PRAMIPEXOLE DIHYDROCHLORIDE 0.5 MG TAB PO SCH (20:52)
[2016-11-28] MEDS: GABAPENTIN 100 MG CAP PO SCH (20:53)
[2016-11-28] MEDS: INSULIN ASPART 100 UNITS/ML 3 ML PEN SC SCH (20:55)
[2016-11-28] MEDS: INSULIN GLARGINE SOLOSTAR 100 UNITS/ML 3 ML PEN SC SCH (20:55)
[2016-11-28 22:36] LABS: URINE APPEARANCE CLEAR (CLEAR); URINE BILIRUBIN NEG (NEG); URINE COLOR YELLOW; URINE NITRITE NEG (NEG); URINE PH 7.5 (4.5-7.5); URINE SPECIFIC GRAVITY 1.017 (1.000-1.030); UROBILINOGEN NEG (NEG)
[2016-11-28 22:38] LABS: MANUAL MICROSCOPIC REQUIRED? NO; REVIEW REQ? NO
[2016-11-28] MEDS: ZOLPIDEM TARTRATE 5 MG TAB PO PRN (23:51)
[2016-11-28] MEDS: HYDROCODONE/ACETAMOPHEN 5/325MG TAB PO PRN (23:51)
[2016-11-29] VITALS (14 sets, daily range): BP systolic 126–158; BP diastolic 75–89; PULSE 103–119; TEMP 36.6–37.2; O2SAT 93–100
[2016-11-29] MEDS: LEVALBUTEROL 1.25MG/0.5ML NEB INH SCH ×4 (06:54→18:59)
[2016-11-29] MEDS: IPRATROPIUM BROMIDE NEB SOLN 0.02% 2.5 ML VIAL INH SCH ×4 (06:54→18:59)
[2016-11-29 07:18] LABS: BUN/CREATININE RATIO 18.1 (10-20); CALCIUM 8.5 mg/dl (8.5-10.1); CREATININE 0.68 mg/dl (0.60-1.20); POTASSIUM 4.4 mmol/L (3.5-5.1)
[2016-11-29] MEDS: POTASSIUM CHLORIDE 10 MEQ TABCR PO SCH ×2 (08:37→20:45)
[2016-11-29] MEDS: GABAPENTIN 100 MG CAP PO SCH ×3 (08:38→20:46)
[2016-11-29] MEDS: PANTOprazole SOD 40 MG TAB PO SCH (08:38)
[2016-11-29] MEDS: OXYBUTYNIN CHLORIDE 5 MG TABCR PO SCH (08:38)
[2016-11-29] MEDS: FUROSEMIDE 20 MG TAB PO SCH (08:38)
[2016-11-29] MEDS: MAGNESIUM OXIDE 400 MG TAB PO SCH (08:38)
[2016-11-29] MEDS: ATORVASTATIN 10 MG TAB PO SCH (08:38)
[2016-11-29] MEDS: AMLODIPINE BESYLATE 5 MG TAB PO SCH (08:38)
[2016-11-29] MEDS: METHYLPREDNISOLONE IV 40 MG in SYRINGE 0 ML IV SCH ×2 (08:39→20:41)
[2016-11-29] MEDS: ASPIRIN 325 MG ECTAB PO SCH (08:39)
[2016-11-29] MEDS: DOXYCYCLINE HYCLATE 100 MG CAP PO SCH ×2 (08:39→20:46)
[2016-11-29] MEDS: PRAMIPEXOLE DIHYDROCHLORIDE 0.5 MG TAB PO SCH ×3 (08:39→20:45)
[2016-11-29] MEDS: FLUTICASONE PROPIONATE NA SPR 16 GM BTL NAE SCH ×2 (08:40→20:43)
[2016-11-29] MEDS: INSULIN GLARGINE SOLOSTAR 100 UNITS/ML 3 ML PEN SC SCH ×2 (08:42→20:52)
[2016-11-29] MEDS: INSULIN ASPART 100 UNITS/ML 3 ML PEN SC SCH ×4 (08:42→20:52)
--- NOTE | 2016-11-29 09:58 | PULMONARY CONSULTATION ---
DATE OF CONSULTATION: 11/29/2016 TIME: 08:35 a.m. REPORT OF CONSULTATION: The patient was seen in room 234. She is a 61-year-old female with a longstanding history of asthma and COPD. She has had numerous exacerbations, requiring hospital stay in the past year. The acute history is that she was feeling very well as of November 24. She states she got a call from her [employer] and she felt really good that day. The following day, she noticed mild shortness of breath. When that happened, she started to take her nebulizer treatments more regularly. Monday, , she was not bad. The following day, however, she started to get more and more short of breath and then yesterday, which was November 28, she presented in respiratory distress. She states that she has 16 steps to get up to go into her apartment. She has tried to get her first floor apartment, but has been unsuccessful. She had severe work of breathing when she first came in. She was put on OxyMask and then subsequently on BiPAP. She feels a little better with the BiPAP when she is in distress. In the ER, she was given magnesium. Since she was admitted yesterday, she has continued to improve. She had a fairly good night. She did wear the BiPAP at night. She states she has been coughing a little yellow. Usually, she does not bring up much phlegm at all except when she has an exacerbation. She is still somewhat tight, but much less tight than yesterday. She does not feel like she has a cold. She cannot think of anything that precipitated her symptoms. Review of her history shows that she underwent a right heart catheterization on November 17. This was to see if she has pulmonary hypertension. This did not show any significant pulmonary hypertension. The right ventricular pressure was 35/8. The pulmonary artery pressure was 33/17. The wedge pressure was 18. The patient had previously been admitted with an exacerbation from 10/21/2016 until 10/25/2016. In August, she was hospitalized from 09/22/2016 until 09/25/2016. Earlier in the month, she was admitted from 09/08/2016 until 09/10/2016. Previously, she had an extensive stay in the hospital from 02/22/2016 until 03/10/2016. At that time, she was on a ventilator for she says 9 days. The patient's breathing problems began in the . She was diagnosed with asthma back at that time. She had been a long-term smoker until 2-1/2 years ago when she quit. However, she only acknowledges smoking one-third pack per day for about 40 years. The patient has 1 dog at home. She states that she has had allergy testing in the past. She was not allergic to anything including dog hair. PAST SURGICAL HISTORY: 1. Left cataract surgery. 2. Laser surgery to the cervix for cervical cancer. PAST MEDICAL HISTORY: 1. COPD. 2. Asthma. 3. Anemia. 4. Carpal tunnel syndrome. 5. Depression. 6. Hypertension. 7. Diabetes type 2. 8. Hyperlipidemia. 9. Hiatal hernia. 10. Reflux. 11. Cervical discogenic disease. 12. DJD. 13. Restless leg syndrome. SOCIAL HISTORY: Tobacco use as noted above. ALLERGIES: No known allergies. FAMILY HISTORY: Mother at age 68, lung cancer. The patient's father was , but she does not know his medical history. One brother , CA of the esophagus. Two sisters , but she does not know what they from. MEDICATIONS: At home includes the following, 1. Fluticasone nasal spray. 2. Lasix 20 mg daily. 3. O2 at 3 liters. 4. Combivent Respimat. 5. Tiotropium 1 daily. 6. Utibron b.i.d. 7. Ventolin HFA p.r.n. 8. Tessalon Perles p.r.n. 9. DuoNeb respiratory treatments p.r.n. 10. Prednisone 10 mg daily according to the patient. 11. Amitriptyline 10 mg at bedtime. 12. Amlodipine 5 mg daily. 13. Aspirin 325 mg daily. 14. Lipitor 10 mg daily. 15. B12 at 1000 mcg daily. 16. Ferrous sulfate daily. 17. Gabapentin 100 mg t.i.d. 18. Glimepiride 1 tab daily. 19. Magnesium oxide 400 mg daily. 20. Metformin 1000 mg b.i.d. 21. Oxybutynin 5 mg daily. 22. Pantoprazole 40 mg daily. 23. Potassium 10 mEq daily. 24. Pramipexole 0.5 mg t.i.d. 25. Ranitidine 300 mg at bedtime. 26. Flexeril 10 mg b.i.d. p.r.n. 27. Voltaren gel. 28. Ilfeld 5/325 p.r.n. REVIEW OF SYSTEMS: In addition to the above-mentioned complaints, the patient has severe urinary incontinence. She relates that every time she walks up her steps, she walks up 8 steps to the first lending and she cannot hold her urine. The same thing occurred when she walks up the 2nd landing. She will occasionally leak a bit with coughing, but it is more the stress of walking up steps that creates more urinary incontinence than anything else. She has a history of some constipation and some diarrhea. She has chronic back pain. The patient relates that she has episodes where she eats during the night and has no knowledge of this. She tells me she does take Ambien, which may well be causing that problem. She then implied that she was not on Ambien currently. The remainder of review of systems is otherwise negative. PHYSICAL EXAMINATION: GENERAL: The patient is a pleasant 61-year-old -N[place]ales[place] female who was cooperative, alert and oriented. She was in no distress. VITAL SIGNS: Temperature was 36.6. Heart rate currently is 116 per minute. The rhythm is regular. Her blood pressure is 143/85. HEENT: Eye exam showed an implant on the left thigh and a cataract on the right eye. Nares were clear. Mouth exam shows a Mallampati grade 3 pharynx. NECK: Palpation of the neck reveals no lymph nodes. LUNGS: Auscultation of the lung pool revealed mild wheeze bilaterally on expiration. She looks very comfortable. Respiratory rate was 18 breaths per minute. Pulse oximetry was reported as 100% on room air. I do not know if that is correct or not. She did have nasal cannula in place when I was examining her. ABDOMEN: Soft. Bowel sounds were normal. There was no tenderness to palpation. EXTREMITIES: Showed trace edema of both lower extremities. There was no cyanosis or clubbing. Chest x-ray showed no active disease. Emphysema was suspected. The emphysema had been shown on prior CAT scan done on 02/26/2016. The patient did have a V/Q scan done as an outpatient on November 08 and this showed low probability for PE. I suspect that was being done to rule out chronic pulmonary emboli. LABORATORY DATA: White blood cell count is 11.56. Hemoglobin 11.4. Platelets 324,000. Coags were normal. Urinalysis showed +2 glucose, but was otherwise unremarkable. Venous blood gas showed pH of 7.36, pCO2 of 55, and pO2 of 74. Electrolytes today show sodium 140, potassium 4.4, chloride 107, and bicarbonate 26. BUN was 12 and creatinine of 0.68. Blood sugar this morning is 168. Troponin was negative. ProBNP was only 9. IMPRESSIONS: 1. Respiratory failure -- acute on chronic with hypoxia. 2. Asthma exacerbation. 3. Chronic obstructive pulmonary disease. COMMENTS AND RECOMMENDATIONS: The patient is much improved compared with when she was admitted. She seems very comfortable this morning. She is currently on methylprednisolone 40 mg IV b.i.d. We will see if that is enough for her as the day goes on. She is on doxycycline. It is not clear cut if this is infection related, but I see no problem utilizing this agent. She is on levalbuterol/ipratropium. The patient's medicine list from what she states she is taking at home is very confusing. She was listed as taking both Utibron and Spiriva, which would be quite unusual. I am not certain what was actually advised to her. I have encouraged the patient to check her peak flows at home. She does have a peak flow meter, but almost never checks it. Hopefully, some of her problems could be avoided if she checks her peak flows daily, and when she starts to see a decline over the course of a few days she can take action more quickly. She has apparently been scheduled for a sleep study to rule out sleep apnea. If she did have sleep apnea, then she could have a BiPAP at home, which might be helpful with her breathing status. The study was scheduled for November 27, but had to be canceled because of her being ill. That should be ultimately rescheduled. On prior admissions, it was thought that she had pulmonary hypertension, but this seems to be ruled out by the recent catheterization data. I will follow the patient with you. Thank you for asking me to assist in her care. EDUARDA
--- NOTE | 2016-11-29 10:03 | Clinical Documentation Query ---
QUERY 1 OF [address] CARR, In your clinical opinion is this patient being managed for: ( ) Acute and chronic respiratory failure, POA ( ) Not Agree ( ) Other explanation of clinical findings (Please Explain) ( ) Unable to determine (Please Define) ( ) Need to Discuss The medical record reflects the following clinical findings, treatment, and risk factors. Clinical Indicators: 61 yo female presenting with increasing dyspnea. ER describes pt as tachypneic and nearly unable to talk, diaphoretic and in significant distress. Vital signs 36.8-132-28, 163/123, 100% on Oxymask. Placed on BIPAP immediately upon ER presentation. H/P indicates pt with accessory muscle use. Treatment:O2 support/BIPAP, tele, IV levaquin, IV solumedrol, nebs, doxycycline, pulmonary consult, Risk Factors: severe COPD with exacerbation QUERY 2 OF 2 In your clinical opinion is this patient being managed for: ( ) Morbid obesity with BMI 43.8 ( ) Not Agree ( ) Other explanation of clinical findings (Please Explain) ( ) Unable to determine (Please Define) ( ) Need to Discuss BMI: A significantly high (>40) or significantly low (<19) BMI will impact the severity of illness and risk of mortality of your patient. However, the physician must document a correlating diagnosis in the medical record. IF IN AGREEMENT, YOU MUST DOCUMENT ABOVE DIAGNOSTIC STATEMENT IN DAILY PROGRESS NOTES AND DISCHARGE SUMMARY. This document is not part of the patient's record. Thank You, Laurel Galindo, HALEY [phone]
--- NOTE | 2016-11-29 15:09 | Progress Note ---
Medicine Progress Note Date & Time of Visit: Nov 29, 2016 at 15:09. Subjective seen resting in bedside chair with 3L O2 via nasal cannula states she is feeling improved no active dyspnea, chest pain has dry cough, occasional white sputum (chronic) denies other symptoms Objective Last 8 Hrs Date Time Temp Pulse Resp B/P (MAP) Pulse Ox O2 Delivery O2 Flow Rate FiO2 11/29/16 12:00 Nasal Cannula 3.0 11/29/16 11:14 109 18 99 Nasal Cannula 3.0 30 11/29/16 10:52 37.2 113 20 143/80 (101) 95 3.0 11/29/16 08:00 Nasal Cannula 3.0 11/29/16 07:37 36.6 108 18 143/85 (104) 100 Room Air 11/29/16 07:22 106 24 99 BiPAP/CPAP 30 Physical Exam: General- oriented x 3, not in distress, speaks in sentences with no effort Head- atraumatic Eyes- , EOMI, anicteric ENT- oropharynx clear Neck- supple, no JVD, no adenopathy, no thyromegaly Lungs- scattered faint wheeze bilaterally Heart- regular rhythm; no murmur, normal rate Abdomen- normal bowel sounds, soft, nontender Extremities- no pretibial edema, no calf tenderness; peripheral pulses intact Neuro- alert, oriented x 3; no gross focal deficits Skin- warm & dry Laboratory Results: Last 24 Hours Test 11/28/16 17:38 11/28/16 20:19 11/28/16 22:00 11/29/16 06:08 Bedside Glucose 182 mg/dl 184 mg/dl Urine Color YELLOW Urine Appearance CLEAR Urine pH 7.5 Urine Specific [place] 1.017 Urine Protein NEG Urine Glucose (UA) 2+ Urine Ketones TRACE Urine Occult Blood NEG Urine Nitrite NEG Urine Bilirubin NEG Urine Urobilinogen NEG Urine Leukocyte Esterase NEG Sodium Level 140 mmol/L Potassium Level 4.4 mmol/L Chloride Level 107 mmol/L Carbon Dioxide Level 26 mmol/L Anion Gap 7.0 mmol/L Blood Urea Nitrogen 12 mg/dl Creatinine 0.68 mg/dl Est Creatinine Clear Calc Drug Dose 103.2 ml/min Estimated GFR () 108.7 Estimated GFR (Non- 93.7 BUN/Creatinine Ratio 18.1 Random Glucose 168 mg/dl Estimated Average Glucose 154 mg/dl Hemoglobin A1c 7.0 % Calcium Level 8.5 mg/dl Test 11/29/16 06:36 11/29/16 08:30 11/29/16 11:00 Bedside Glucose 160 mg/dl 227 mg/dl 116 mg/dl Assessment & Plan EXACERBATION OF COPD / ASTHMA CXR: no signs of pneumonia patient notes symptoms started after shampooing her carpet with bleach solution -- improving now on 3 L NC -- continue Solumedrol, Nebs scheduled, Doxycycline -- Pulm SVC recommendations noted, appreciate the input NOCTURNAL HYPOXIA Continue nocturnal O2. HYPERTENSION Continue amlodipine. GERD Continue ranitidine and PPI. DIABETES MELLITUS TYPE 2 Lantus/NovoLog per protocol. monitor BSGs VTE PROPHYLAXIS Moderate risk for VTE. SQ enoxaparin. Ambulate as able. RESUSCITATION STATUS Full resuscitation. UNCERTAIN MEDICATION RECONCILIATION will discuss with patient in detail DISPOSITION anticipate discharge home when medically stable Internal Medicine follow-up with Dr. Martina Jay. Pulmonary Medicine follow-up with Trista Haque PA-C and Dr. Solis. Current Inpatient Medications: Current Inpatient Medications Medications (Trade) Dose Ordered Sig/Allison Route Start Time Stop Time Status Last Admin Dose Admin Acetaminophen (Tylenol Tab) 650 mg Q4H PRN PO 11/28/16 16:15 12/28/16 16:14 Amitriptyline HCl (Elavil Tab) 10 mg HS PO 11/28/16 21:00 12/28/16 20:59 11/28/16 20:49 10 MG Amlodipine Besylate (Norvasc Tab) 5 mg DAILY PO 11/29/16 09:00 12/29/16 08:59 11/29/16 08:38 5 MG Aspirin (Ecotrin Tab) 325 mg DAILY PO 11/29/16 09:00 12/29/16 08:59 11/29/16 08:39 325 MG Atorvastatin Calcium (Lipitor Tab) 10 mg QAM PO 11/29/16 09:00 12/29/16 08:59 11/29/16 08:38 10 MG Benzonatate (Tessalon Perles Cap) 100 mg TID PRN PO 11/28/16 17:00 12/28/16 16:59 Cyclobenzaprine HCl (Flexeril Tab) 10 mg BID PRN PO 11/28/16 17:00 12/28/16 16:59 Fluticasone Propionate (Flonase Nasal [place]) 2 sprays BID LIDYA 11/28/16 21:00 12/28/16 20:59 11/29/16 08:40 2 SPRAYS Furosemide (Lasix Tab) 20 mg QAM PO 11/29/16 09:00 12/29/16 08:59 11/29/16 08:38 20 MG Gabapentin (Neurontin Cap) 100 mg TID PO 11/28/16 21:00 12/28/16 20:59 11/29/16 08:38 100 MG Acetaminophen/ Hydrocodone Bitart ([place] 5/325 Tab) 1 tab Q8 PRN PO 11/28/16 17:00 12/12/16 16:59 11/28/16 23:51 1 TAB Magnesium Oxide (Mag-Ox Tab) 400 mg DAILY PO 11/29/16 09:00 12/29/16 08:59 11/29/16 08:38 400 MG Oxybutynin Chloride (Ditropan-Xl Tab) 5 mg DAILY PO 11/29/16 09:00 12/29/16 08:59 11/29/16 08:38 5 MG Pantoprazole Sodium (Protonix Tab) 40 mg QAM PO 11/29/16 09:00 12/29/16 08:59 11/29/16 08:38 40 MG Pramipexole Dihydrochloride (miraPEX TAB) 0.5 mg TID PO 11/28/16 21:00 12/28/16 20:59 11/29/16 08:39 0.5 MG Ranitidine HCl (zANTac TAB) 300 mg HS PO 11/28/16 21:00 12/28/16 20:59 11/28/16 20:51 300 MG Potassium Chloride (Klor-Con M10) 10 meq BID PO 11/28/16 21:00 12/28/16 20:59 11/29/16 08:37 10 MEQ Methylprednisolone Sodium Succinate 40 mg/Syringe 0.64 ml @ 1.5 mls/min BID IV 11/28/16 21:00 12/28/16 20:59 11/29/16 08:39 1.5 MLS/MIN Ipratropium [place] (Atrovent 0.02% 0.5MG/2.5ML Neb) 0.5 mg QIDR INH 11/28/16 20:00 12/28/16 19:59 11/29/16 11:14 0.5 MG Levalbuterol (Xopenex 1.25MG/ 0.5ML Neb) 1.25 mg QIDR INH 11/28/16 20:00 12/28/16 19:59 11/29/16 11:14 1.25 MG Levalbuterol (Xopenex 0.63 Mg/ 3 Ml Neb) 0.63 mg Q2H PRN INH 11/28/16 17:00 12/28/16 16:59 11/29/16 03:08 0.63 MG Doxycycline Hyclate (Vibramycin Cap) 100 mg BID PO 11/28/16 21:00 12/05/16 20:59 11/29/16 08:39 100 MG Insulin Glargine (Lantus Solostar Pen) BSG LANTUS SQ < ... BID SC 11/28/16 21:00 12/28/16 20:59 11/29/16 08:42 18 UNITS Insulin Aspart (novoLOG ASPART) SLIDING SCALE G... ACHS SC 11/28/16 21:00 12/28/16 20:59 11/29/16 11:52 6 UNITS Enoxaparin Sodium (Lovenox Inj) 40 mg HS SQ 11/28/16 21:00 12/28/16 20:59 11/28/16 20:50 40 MG Glucose (Glucose 40% Gel) 15-30 GRAMS 15 GRAMS... UD PRN PO 11/28/16 17:30 12/28/16 17:29 Glucose (Glucose Chew Tab) 4-8 Tablets 4 Tabl... UD PRN PO 11/28/16 17:30 12/28/16 17:29 Dextrose (Dextrose 50% 50ML Syringe) 25-50ML OF 50% DW IV FOR... UD PRN IV 11/28/16 17:30 12/28/16 17:29 Glucagon (Glucagon Inj) 1 mg UD PRN SQ 11/28/16 17:30 12/28/16 17:29 Menthol (Nice Von) 1 von PRN PRN PO 11/28/16 19:00 12/28/16 18:59 Zolpidem Tartrate (Ambien Tab) 5 mg HS PRN PO 11/28/16 22:00 12/28/16 21:59 11/28/16 23:51 5 MG
[2016-11-29] MEDS: AMITRIPTYLINE HCL 10 MG TAB PO SCH (20:44)
[2016-11-29] MEDS: RANITIDINE HCL 150 MG TAB PO SCH (20:46)
[2016-11-29] MEDS: ENOXAPARIN 40 MG/0.4 ML SYR SQ SCH (20:53)
[2016-11-29] MEDS: HYDROCODONE/ACETAMOPHEN 5/325MG TAB PO PRN (20:59)
[2016-11-29] MEDS: ZOLPIDEM TARTRATE 5 MG TAB PO PRN (23:39)
[2016-11-30] VITALS (8 sets, daily range): BP systolic 133–170; BP diastolic 62–94; PULSE 95–110; TEMP 36.4–36.7; O2SAT 93–100
[2016-11-30] MEDS: IPRATROPIUM BROMIDE NEB SOLN 0.02% 2.5 ML VIAL INH SCH ×3 (07:00→15:18)
[2016-11-30] MEDS: LEVALBUTEROL 1.25MG/0.5ML NEB INH SCH ×3 (07:00→15:18)
[2016-11-30] MEDS: METHYLPREDNISOLONE IV 40 MG in SYRINGE 0 ML IV SCH (07:36)
[2016-11-30] MEDS: FLUTICASONE PROPIONATE NA SPR 16 GM BTL NAE SCH (07:36)
[2016-11-30] MEDS: PRAMIPEXOLE DIHYDROCHLORIDE 0.5 MG TAB PO SCH ×2 (07:36→14:09)
[2016-11-30] MEDS: MAGNESIUM OXIDE 400 MG TAB PO SCH (07:37)
[2016-11-30] MEDS: GABAPENTIN 100 MG CAP PO SCH ×2 (07:37→14:09)
[2016-11-30] MEDS: POTASSIUM CHLORIDE 10 MEQ TABCR PO SCH (07:37)
[2016-11-30] MEDS: ASPIRIN 325 MG ECTAB PO SCH (07:38)
[2016-11-30] MEDS: ATORVASTATIN 10 MG TAB PO SCH (07:38)
[2016-11-30] MEDS: PANTOprazole SOD 40 MG TAB PO SCH (07:38)
[2016-11-30] MEDS: FUROSEMIDE 20 MG TAB PO SCH (07:38)
[2016-11-30] MEDS: DOXYCYCLINE HYCLATE 100 MG CAP PO SCH (07:38)
[2016-11-30] MEDS: OXYBUTYNIN CHLORIDE 5 MG TABCR PO SCH (07:38)
[2016-11-30] MEDS: AMLODIPINE BESYLATE 5 MG TAB PO SCH (07:38)
[2016-11-30] MEDS: INSULIN ASPART 100 UNITS/ML 3 ML PEN SC SCH ×2 (07:42→12:22)
[2016-11-30] MEDS: INSULIN GLARGINE SOLOSTAR 100 UNITS/ML 3 ML PEN SC SCH (07:43)
--- NOTE | 2016-11-30 11:57 | PULMONARY PROGRESS NOTE ---
DATE: 11/30/2016 TIME: 10:45 a.m. SUBJECTIVE: The patient feels much better. She states her breathing is comfortable. Nursing tells me she has been walking around of this unit without difficulty on room air. She feels as good as she usually does when she goes home she states. She is planning on discharge today. It is notable that she was recorded to showing some increased heart rates overnight of approximately 110. She has been asymptomatic. PHYSICAL EXAMINATION: VITAL SIGNS: The patient is afebrile with a temperature of 36.4. She appears comfortable. Heart rate is 98 per minute. The rhythm is regular. Blood pressure is 162/62. LUNGS: Auscultation of the lung pool revealed mild wheeze bilaterally. Her aeration is overall good. Her oxygen saturation is 100% on 2 liters. EXTREMITIES: Showed no cyanosis, clubbing or edema. LABORATORY DATA: Blood sugar this morning was 165. No other laboratory studies were done today. IMPRESSIONS: 1. Respiratory failure -- acute on chronic with hypoxia -- resolved. 2. Asthma exacerbation. 3. Chronic obstructive pulmonary disease with emphysema suggested on x-ray. COMMENTS AND RECOMMENDATIONS: I again spoke to the patient about utilizing peak flows. I want to have her do a peak flow before she leaves. We will order that. They can and give her the peak flow meter to take home. Upon discharge, she will need to have her steroids tapered gradually. She has been on the IV methylprednisolone up until the present time. I would start her at least at 40 mg per day and perhaps even 60 mg for 2 days and then cutting back to 40 mg for 2 days, etc. It was very unclear to me what her actual inhaler medicines are to be upon discharge. She should not take both Spiriva and Ubitron as they would both contained anticholinergics. I would encourage her for now to use her nebulizer treatments several times a day until she has totally resolved. It is unclear to me what inhaled steroids the patient is taking. I did not see any on her medication list. Obviously, would encourage some type of steroids by inhalation upon discharge, but it becomes difficult not knowing exactly what she was on at home. She should follow up with Trista Haque in the pulmonary office within a few days. EDUARDA
--- NOTE | 2016-11-30 14:14 | Progress Note ---
Medicine Progress Note Date & Time of Visit: Nov 30, 2016 at 14:08. Subjective patient seen resting in bed, comfortable states she feels much better, back to baseline ambulating with no problems denies dyspnea, cough, sputum, chest pain, fever/chills denies other symptoms states she is ready and would like to be discharged today Objective Last 8 Hrs Date Time Temp Pulse Resp B/P (MAP) Pulse Ox O2 Delivery O2 Flow Rate FiO2 11/30/16 12:00 Nasal Cannula 2.0 11/30/16 11:43 107 18 98 Nasal Cannula 3.0 11/30/16 11:07 36.7 107 18 133/74 (93) 100 2.0 11/30/16 08:00 Nasal Cannula 2.0 11/30/16 08:00 36.4 98 18 162/62 (95) 100 2.0 11/30/16 07:00 95 18 99 Nasal Cannula 3.0 Physical Exam: General- oriented x 3, not in distress, speaks in sentences with no effort Eyes-EOMI, anicteric Neck- no JVD Lungs- diminished breath sounds but clear bilaterally, with very faint wheeze on the Left upper lobe Heart- regular rhythm; no murmur, normal rate Abdomen- normal bowel sounds, soft, nontender Extremities- no pretibial edema, no calf tenderness; peripheral pulses intact Neuro- alert, oriented x 3; no gross focal deficits Skin- warm & dry Laboratory Results: Last 24 Hours Test 11/29/16 16:07 11/29/16 20:23 11/30/16 06:50 11/30/16 11:27 Bedside Glucose 131 mg/dl 220 mg/dl 165 mg/dl 87 mg/dl Test 11/30/16 11:44 Bedside Glucose 97 mg/dl Assessment & Plan EXACERBATION OF COPD / ASTHMA, LIKELY FROM EXPOSURE TO BLEACH SOLUTION CXR: no signs of pneumonia patient notes symptoms started after shampooing her carpet with bleach solution -- improved now on 3 L NC -- given Solumedrol, Nebs scheduled, Doxycycline -- Pulm SVC recommendations noted by Dr. Mcallister recommend Prednisone taper starting at 60mg then continue 10mg po daily indefinitely continue Doxycycline x 5 more days to complete 7 days therapy continue Combivent QID -- ff up with Pulmonary within 1 week ff up with PCP in 3-5 days NOCTURNAL HYPOXIA -- Continue nocturnal O2. HYPERTENSION Continue amlodipine. GERD Continue ranitidine and PPI. DIABETES MELLITUS TYPE 2 resume usual Metformin and Glimepiride VTE PROPHYLAXIS Moderate risk for VTE. SQ enoxaparin. Ambulate as able. RESUSCITATION STATUS Full resuscitation. DISPOSITION d/c home Internal Medicine follow-up with Dr. Martina Jay in 3-5 days. Pulmonary Medicine follow-up with Trista Haque PA-C and Dr. Solis in 1 week. Current Inpatient Medications: Current Inpatient Medications Medications (Trade) Dose Ordered Sig/[place]ison Route Start Time Stop Time Status Last Admin Dose Admin Acetaminophen (Tylenol Tab) 650 mg Q4H PRN PO 11/28/16 16:15 12/28/16 16:14 Amitriptyline HCl (Elavil Tab) 10 mg HS PO 11/28/16 21:00 12/28/16 20:59 11/29/16 20:44 10 MG Amlodipine Besylate (Norvasc Tab) 5 mg DAILY PO 11/29/16 09:00 12/29/16 08:59 11/30/16 07:38 5 MG Aspirin (Ecotrin Tab) 325 mg DAILY PO 11/29/16 09:00 12/29/16 08:59 11/30/16 07:38 325 MG Atorvastatin Calcium (Lipitor Tab) 10 mg QAM PO 11/29/16 09:00 12/29/16 08:59 11/30/16 07:38 10 MG Benzonatate (Tessalon Perles Cap) 100 mg TID PRN PO 11/28/16 17:00 12/28/16 16:59 Cyclobenzaprine HCl (Flexeril Tab) 10 mg BID PRN PO 11/28/16 17:00 12/28/16 16:59 Fluticasone Propionate (Flonase Nasal [place]) 2 sprays BID LIDYA 11/28/16 21:00 12/28/16 20:59 11/30/16 07:36 2 SPRAYS Furosemide (Lasix Tab) 20 mg QAM PO 11/29/16 09:00 12/29/16 08:59 11/30/16 07:38 20 MG Gabapentin (Neurontin Cap) 100 mg TID PO 11/28/16 21:00 12/28/16 20:59 11/30/16 07:37 100 MG Acetaminophen/ Hydrocodone Bitart ([place] 5/325 Tab) 1 tab Q8 PRN PO 11/28/16 17:00 12/12/16 16:59 11/29/16 20:59 1 TAB Magnesium Oxide (Mag-Ox Tab) 400 mg DAILY PO 11/29/16 09:00 12/29/16 08:59 11/30/16 07:37 400 MG Oxybutynin Chloride (Ditropan-Xl Tab) 5 mg DAILY PO 11/29/16 09:00 12/29/16 08:59 11/30/16 07:38 5 MG Pantoprazole Sodium (Protonix Tab) 40 mg QAM PO 11/29/16 09:00 12/29/16 08:59 11/30/16 07:38 40 MG Pramipexole Dihydrochloride (miraPEX TAB) 0.5 mg TID PO 11/28/16 21:00 12/28/16 20:59 11/30/16 07:36 0.5 MG Ranitidine HCl (zANTac TAB) 300 mg HS PO 11/28/16 21:00 12/28/16 20:59 11/29/16 20:46 300 MG Potassium Chloride (Klor-Con M10) 10 meq BID PO 11/28/16 21:00 12/28/16 20:59 11/30/16 07:37 10 MEQ Methylprednisolone Sodium Succinate 40 mg/Syringe 0.64 ml @ 1.5 mls/min BID IV 11/28/16 21:00 12/28/16 20:59 11/30/16 07:36 1.5 MLS/MIN Ipratropium [place] (Atrovent 0.02% 0.5MG/2.5ML Neb) 0.5 mg QIDR INH 11/28/16 20:00 12/28/16 19:59 11/30/16 11:42 0.5 MG Levalbuterol (Xopenex 1.25MG/ 0.5ML Neb) 1.25 mg QIDR INH 11/28/16 20:00 12/28/16 19:59 11/30/16 11:42 1.25 MG Levalbuterol (Xopenex 0.63 Mg/ 3 Ml Neb) 0.63 mg Q2H PRN INH 11/28/16 17:00 12/28/16 16:59 11/29/16 03:08 0.63 MG Doxycycline Hyclate (Vibramycin Cap) 100 mg BID PO 11/28/16 21:00 12/05/16 20:59 11/30/16 07:38 100 MG Insulin Glargine (Lantus Solostar Pen) BSG LANTUS SQ < ... BID SC 11/28/16 21:00 12/28/16 20:59 11/30/16 07:43 14 UNITS Insulin Aspart (novoLOG ASPART) SLIDING SCALE G... ACHS SC 11/28/16 21:00 12/28/16 20:59 11/30/16 12:22 6 UNITS Enoxaparin Sodium (Lovenox Inj) 40 mg HS SQ 11/28/16 21:00 12/28/16 20:59 11/29/16 20:53 40 MG Glucose (Glucose 40% Gel) 15-30 GRAMS 15 GRAMS... UD PRN PO 11/28/16 17:30 12/28/16 17:29 Glucose (Glucose Chew Tab) 4-8 Tablets 4 Tabl... UD PRN PO 11/28/16 17:30 12/28/16 17:29 Dextrose (Dextrose 50% 50ML Syringe) 25-50ML OF 50% DW IV FOR... UD PRN IV 11/28/16 17:30 12/28/16 17:29 Glucagon (Glucagon Inj) 1 mg UD PRN SQ 11/28/16 17:30 12/28/16 17:29 Menthol (Nice Von) 1 von PRN PRN PO 11/28/16 19:00 12/28/16 18:59 Zolpidem Tartrate (Ambien Tab) 5 mg HS PRN PO 11/28/16 22:00 12/28/16 21:59 11/29/16 23:39 5 MG
[2016-11-30] MEDS ORDERED: PRED10TA PO (14:28)
[2016-11-30] MEDS ORDERED: DXY100 PO (14:28)
--- NOTE | 2016-11-30 14:33 | Discharge Instructions ---
Discharge Instructions Date of Service Nov 30, 2016. Admission Reason for Admission: Copd Exacerbation Discharge Discharge Diagnosis / Problem: COPD EXACERBATION Discharge Goals Goal(s): Diagnostic testing, Therapeutic intervention Activity Recommendations Activity Limitations: as noted below (NO HEAVY EXERTION UNTIL FOLLOW UP WITH YOUR PRIMARY CARE PHYSICIAN) Lifting Limitations: until after follow-up appointment Exercise/Sports Limitations: until after follow-up appointment . Instructions / Follow-Up Instructions / Follow-Up PLEASE REVIEW YOUR NEW MEDICATION LIST AND FOLLOW INSTRUCTIONS CAREFULLY. CALL YOUR PRIMARY CARE PHYSICIAN OR RETURN TO ER IMMEDIATELY IF WITH RECURRENCE OR WORSENING OF SYMPTOMS. AVOID EXPOSURE TO IRRITANTS LIKE SMOKE, FUMES, CHEMICAL SOLUTIONS. FOLLOW UP WITH DR. CUNHA ON MONDAY DECEMBER 05, 2016 AT 12:45 PM. FOLLOW UP WITH MANA[employer] DR. NEUMANN/OLLIE MORRISSEY WITHIN 1 WEEK. Current Hospital Diet Patient's current hospital diet: AHA Diet (Heart Healthy), Diabetes Type 2 Diet Discharge Diet Recommended Diet: AHA Diet (Heart Healthy), Diabetes Type 2 Diet Fluid Restriction: 2000 ml (8 cups) Pending Studies Studies pending at discharge: no Laboratory Results Hemoglobin A1c Test 11/29/16 06:08 Range/Units Estimated Average Glucose 154 mg/dl Hemoglobin A1c 7.0 H 4.5-5.6 % Medical Emergencies . Who to Call and When: Medical Emergencies: If at any time you feel your situation is an emergency, please call 911 immediately. . Call your Primary Care doctor if any of the following symptoms or problems start or get worse: * Shortness of breath or difficulty breathing * Wake up at night short of breath * Chest pain * Cough * Swelling of your hands, feet, or legs * More fatigued or tired with your normal activity * Palpitations - sudden fast heart beats WEIGHT * Weigh yourself every morning after using the bathroom. * Use the same scale. * Wear the same amount of clothing. * Write your weight down on a chart. * Call your Primary Care doctor if you gain more than 2-3 pounds in 1-2 days. MEDICATIONS * Use this discharge instruction sheet for medication instructions. * Take your medications at the time your doctor ordered. * Do not skip a dose of your medicines. * If you miss a dose of medicine, take it as soon as possible, but DO NOT DOUBLE A DOSE. * Read your medicine information when you get home. * Know all of the side effects of your medicine. If in doubt, ask your pharmacist * Call your Primary Care doctor's office if you have any side effects. * Be sure all of your doctors know what medicine and herbs you take (including cold, flu, and herbal medicine). Take the following with you to your follow-up doctor appointments: * Weight Chart * Medication List * List of questions Do not drink excessive alcohol, beer or wine. Non-Emergent Contact Non-Emergency issues call your: Primary Care Provider, [employer] Call Non-Emergent contact if: you have a fever, you have any medication questions . . "Provider Documentation" section prepared by Rene Murillo. . VTE Core Measure Inpt VTE Proph given/why not?: Enoxaparin (Lovenox)SQ
[2016-11-30] MEDS ORDERED: ASPI325T45 PO (14:38)
[2016-11-30] MEDS ORDERED: SNG10 PO (14:41)
--- NOTE | 2016-11-30 14:44 | Discharge Summary ---
Discharge Summary Date of Service Nov 30, 2016. Discharge Summary Admission Date: Nov 28, 2016 at 16:13 Discharge Date: Nov 30, 2016 Discharge Disposition: Home Principal Diagnosis: EXACERBATION OF COPD / ASTHMA, LIKELY FROM EXPOSURE TO BLEACH SOLUTIO Secondary Diagnoses/Problems: Please refer to hospital course below. Procedures: SINGLE VIEW CHEST CLINICAL HISTORY: Dyspnea. FINDINGS: An AP, portable, upright chest radiograph is compared to study dated 11/08/2016 and correlated with chest CT dated 02/26/2016. The examination is degraded by portable technique, large body habitus, and patient rotation. The cardiomediastinal silhouette is unremarkable. Emphysema and chronic interstitial thickening are similar to previous. No airspace consolidation, large pleural effusion, or pneumothorax is seen. The skeletal structures are osteopenic. The bony thorax is grossly intact. IMPRESSION: Emphysema with no acute cardiopulmonary abnormality. Consultations: Pulmonary Dr. Mcallister Pending Studies/Follow-Up: Please refer to hospital course below. Medication Reconciliation New Medications: Montelukast Sod (Montelukast Sodium) 10 Mg Tab 1 TAB PO DAILY for 30 Days Prednisone Tab (Prednisone) 10 Mg Tab 10 MG PO UD for 30 Days, #60 TAB 2 Refills take 6 tabs po daily x 2 days, then take 4 tabs po daily x 2 days, then take 3 tabs po daily x 2 days, then take 2 tabs po daily x 2 days, then take 1 tab po daily indefinitely Doxycycline Hyclate (Doxycycline Hyclate) 100 Mg Cap 100 MG PO BID for 5 Days, #10 CAP 0 Refills Changed Medications: Aspirin (Aspirin) 325 Mg Tab 81 MG PO DAILY for 30 Days (Changed from: 325 MG) Continued Medications: Albuterol Hfa (Ventolin Hfa) 200 Puffs/14872 Mcg Aers 2 PUFFS INH Q4H PRN for Wheezing, INHALER Amitriptyline HCl (Amitriptyline HCl) 10 Mg Tab 10 MG PO HS Amlodipine Besylate (Amlodipine Besylate) 5 Mg Tab 5 MG PO DAILY Atorvastatin (Lipitor) 10 Mg Tab 10 MG PO QAM Benzonatate (Tessalon Perles) 100 Mg Cap 100-200 MG PO TID PRN for Cough, CAP Cyanocobalamin (Vitamin B12) 1,000 Mcg Tab 1000 MCG PO DAILY Cyclobenzaprine Hcl (Flexeril) 10 Mg Tab 10 MG PO BID PRN for Muscle Spasm Diclofenac Sodium (Topical) (Voltaren 1% Top Gel) 1 % Gel PRN for Documentation Ferrous Sulfate (Kp Ferrous Sulfate) 325 Mg Tab 1 TAB PO WM for 30 Days, TAB 3 Refills Fluticasone Propionate (Fluticasone Propionate) 50 Mcg/Act Spr 2 SPRAYS LIDYA BID Furosemide (Lasix) 20 Mg Tab 20 MG PO QAM, TAB Gabapentin (Neurontin) 100 Mg Cap 100 MG PO TID Glimepiride (Glimepiride) 1 Mg Tab 0.5 TAB PO DAILY, TAB 3 Refills As needed when blood sugars elevated on prednisone. Home O2 Therapy (Oxygen) Gas 3 LITERS NA UD, BTL USE WHEN SLEEPING AND NEEDED Hydrocodone/Acetaminophen 5MG/325MG ([place] 5MG/325MG) Tab 1 TABLET PO Q8 PRN for Moderate Pain, TAB Ipratropium-Albuterol (Duoneb) 3 Ml Nebu 1 VIAL NEB Q4H PRN for SOB/Wheezing, INHA Ipratropium-Albuterol (Combivent Respimat) 1 Aer Aer 1 PUFF INH QID, INH Magnesium Oxide (Mag-Ox) 400 Mg Tab 400 MG PO DAILY, TAB Metformin Hcl (Glucophage) 1,000 Mg Tab 1000 MG PO BID Oxybutynin Chloride (Ditropan Xl) 5 Mg Tab 5 MG PO DAILY, TAB 3 Refills Pantoprazole Sodium (Protonix) 40 Mg Tab 40 MG PO QAM TAKE THIS MEDICATION ONCE DAILY 30 MINUTES BEFORE FIRST MEAL OF THE DAY Potassium Chloride (Potassium Chloride Er) 10 Meq Tab 10 MEQ PO DAILY, TAB Pramipexole Dihydrochloride (Mirapex) 0.5 Mg Tab 0.5 MG PO TID Prednisone Tab (Prednisone) 10 Mg Tab 10 MG PO UD PRN for Rescue Kit, TAB NEEDED RESCUE KIT FOLLOWS: TAKE 5 TABLETS (50 MG) DAILY FOR 4 DAYS THEN, TAKE 4 TABLETS (40 MG) DAILY FOR 4 DAYS THEN, TAKE 3 TABLETS (30 MG) DAILY FOR 4 DAYS THEN, TAKE 2 TABLETS (20 MG) DAILY FOR 4 DAYS THEN, TAKE 1 TABLET (10 MG) DAILY FOR 4 DAYS. Ranitidine Hcl (Zantac) 300 Mg Tab 300 MG PO HS [Utibron] () 1 CAP INH BID Discontinued Medications: Tiotropium [place] (Spiriva Handihaler) 30 Puff/540 Mcg Aerp 1 CAP INH DAILY, INHALER Admission Information HPI (per Admitting provider): 61 YO female followed by Dr. Martina Jay for Internal Medicine; followed by Trista Morrissey PA-C + Dr. Neumann for Pulmonary Medicine. History of obstructive lung disease (asthma / COPD), hypertension, DM type 2, and other problems noted below. On intermittent steroid therapy for exacerbations of her obstructive lung disease. Has required intubation + mechanical ventilation in the past. On home O2 HS for nocturnal hypoxia. Noted increasing dyspnea 2 days prior to admission. Occasional nonproductive cough. No fever or chills. No chest pain. Wheezing and dyspnea worse today. Tried nebulizer treatments at home without significant benefit. Called EMS. Nebulizer treatment with DuoNeb and methylprednisolone administered in the field. Brought to the ED for evaluation. Upon arrival, patient was in respiratory distress and BiPAP was initiated for ventilatory support. . Physical Exam (per Admitting): General Appearance: + moderate distress, + obese Head: normocephalic, atraumatic Eyes: PERRL, EOMI, sclerae normal (conjunctivae pink) ENT: pharynx normal, + pertinent finding (wearing BiPAP) Neck: supple, no adenopathy, thyroid normal, no JVD, trachea midline Respiratory/Chest: + respiratory distress, + accessory muscle use, + pertinent finding (diffuse moderate-severe wheezing; no rhonchi) Cardiovascular: regular rate, rhythm, no edema, no gallop, no JVD, no murmur , normal peripheral pulses Abdomen/GI: normal bowel sounds, non tender, soft, no organomegaly, no pulsatile mass, + pertinent finding (exam limited due to body habitus) Extremities/Musculoskelatal: normal inspection, no calf tenderness, no pedal edema Neurologic/Psych: clinical program manager II-XII nml as tested (PERRL, EOMI), no motor/sensory deficits (grossly intact), alert, oriented x 3 Skin: normal color, warm/dry, + pertinent finding (pigmented lesions bilat legs, ankles, dorsum of feet measuring up to 5 mm, pigmented, rough surface) Lymphatic: no adenopathy (cervical) Hospital Course EXACERBATION OF COPD / ASTHMA, LIKELY FROM EXPOSURE TO BLEACH SOLUTION CXR: no signs of pneumonia patient notes symptoms started after shampooing her carpet with bleach solution -- given Solumedrol, Nebs scheduled, Doxycycline -- improved now on 3 L NC -- Pulm SVC recommendations noted by Dr. Mcallister recommend Prednisone taper starting at 60mg then continue 10mg po daily indefinitely continue Doxycycline x 5 more days to complete 7 days therapy continue Combivent QID continue usual bronchodilators, d/c Spiriva but continue Utibron -- ff up with Pulmonary within 1 week ff up with PCP in 3-5 days NOCTURNAL HYPOXIA -- Continue nocturnal O2. HYPERTENSION Continue amlodipine. GERD Continue ranitidine and PPI. DIABETES MELLITUS TYPE 2 resume usual Metformin and Glimepiride DISPOSITION d/c home Internal Medicine follow-up with Dr. Martina Jay in 3-5 days. Pulmonary Medicine follow-up with Trista Morrissey PA-C and Dr. Neumann in 1 week. Total time spent on discharge = This includes examination of the patient, discharge planning, medication reconciliation, and communication with other providers. Discharge Instructions Discharge Instructions Date of Service Nov 30, 2016. Admission Reason for Admission: Copd Exacerbation Discharge Discharge Diagnosis / Problem: COPD EXACERBATION Discharge Goals Goal(s): Diagnostic testing, Therapeutic intervention Activity Recommendations Activity Limitations: as noted below (NO HEAVY EXERTION UNTIL FOLLOW UP WITH YOUR PRIMARY CARE PHYSICIAN) Lifting Limitations: until after follow-up appointment Exercise/Sports Limitations: until after follow-up appointment . Instructions / Follow-Up Instructions / Follow-Up PLEASE REVIEW YOUR NEW MEDICATION LIST AND FOLLOW INSTRUCTIONS CAREFULLY. CALL YOUR PRIMARY CARE PHYSICIAN OR RETURN TO ER IMMEDIATELY IF WITH RECURRENCE OR WORSENING OF SYMPTOMS. AVOID EXPOSURE TO IRRITANTS LIKE SMOKE, FUMES, CHEMICAL SOLUTIONS. FOLLOW UP WITH DR. JAY ON MONDAY DECEMBER 05, 2016 AT 12:45 PM. FOLLOW UP WITH SENIOR CONSTRUCTION ESTIMATOR DR. NEUMANN/OLLIE MORRISSEY WITHIN 1 WEEK. Current Hospital Diet Patient's current hospital diet: AHA Diet (Heart Healthy), Diabetes Type 2 Diet Discharge Diet Recommended Diet: AHA Diet (Heart Healthy), Diabetes Type 2 Diet Fluid Restriction: 2000 ml (8 cups) Pending Studies Studies pending at discharge: no
== END 2016-11-30 16:07 | disposition home or self-care (01) | DRG 189 ==
LOC: EDBD 12:13 → C.EDB 12:14 → C.2T 16:13 → ENRESERV 16:50
PROVIDERS: ADMIT Hospitalist; ATTEND Internal Medicine
DX: J96.21 Acute and chronic respiratory failure with hypoxia (principal); J44.1 Chronic obstructive pulmonary disease with (acute) exacerbation; Z68.41 Body mass index [BMI] 40.0-44.9, adult; T54.91XA Toxic effect of unspecified corrosive substance, accidental (unintentional), initial encounter; I10 Essential (primary) hypertension; E11.9 Type 2 diabetes mellitus without complications; K21.9 Gastro-esophageal reflux disease without esophagitis; E78.5 Hyperlipidemia, unspecified; M19.90 Unspecified osteoarthritis, unspecified site; G89.29 Other chronic pain; M54.9 Dorsalgia, unspecified; G25.81 Restless legs syndrome; N39.3 Stress incontinence (female) (male); F32.9 Major depressive disorder, single episode, unspecified; E66.9 Obesity, unspecified; Z99.81 Dependence on supplemental oxygen; Z87.891 Personal history of nicotine dependence; Z79.82 Long term (current) use of aspirin; Z79.84 Long term (current) use of oral hypoglycemic drugs; Z79.891 Long term (current) use of opiate analgesic; Z79.899 Other long term (current) drug therapy

== ENCOUNTER 2017-01-10 22:35 | Inpatient (IN) | payer OTHER ==
[~2017-01-10] VITALS: Ht 160 cm; Wt 111.6 kg
[~2017-01-10 22:35] MED LIST changes: -ALOEMIS; +ATOR10TA82 PO; -ATOR10TA88 PO; +DXY100 PO; -FLUC100T4 PO; +GLIM1TAB2 PO; -MONT1TAB3 PO; +OXYB5TAB21 PO; +PRAM1TAB47 PO; -PRAM1TAB52 PO; +SNG10 PO
[2017-01-10] MEDS ORDERED: MAGNESIUM SULFATE 1GM / D5W 1 GM BAG IV STA (22:42)
[2017-01-10] MEDS ORDERED: METHYLPREDNISOLONE 125 MG VIAL IV STA (22:42)
[2017-01-10] MEDS ORDERED: ALBUT/IPRATROP 3MG/0.5MG NEB 3 ML VIAL INH ONE (22:45)
[2017-01-10 22:59] LABS: BASO % 0.3 %; BASO ABS # 0.03 K/uL (0-0.2); COMPLETE YES; EOS % 0.3 %; HEMATOCRIT 34.2 % (37-47); IG% 0.3 %; LYMPH % 19.3 %; LYMPH ABS # 2.16 K/uL (1.2-3.4); MEAN CELL VOLUME 88.6 fL (80-100); MEAN CORPUSCULAR HEMOGLOBIN 27.2 pg (25-34); MEAN CORPUSCULAR HGB CONC 30.7 g/dl (32-36); MEAN PLATELET VOLUME 8.9 fL (7.4-10.4); MONO % 4.2 %; NEUT % 75.6 %; PLATELET COUNT 380 K/uL (130-400); RED BLOOD COUNT 3.86 M/uL (4.2-5.4); WHITE BLOOD COUNT 11.17 K/uL (4.8-10.8)
[2017-01-10] MEDS ORDERED: ASPI81TA28 PO (23:17)
[2017-01-10] MEDS ORDERED: MONT1TAB3 PO (23:22)
[2017-01-10 23:24] VITALS: PULSE 122; O2SAT 100
[2017-01-10 23:31] LABS: BUN/CREATININE RATIO 19.5 (10-20); CALCIUM 9.4 mg/dl (8.5-10.1); CREATININE 0.98 mg/dl (0.60-1.20); POTASSIUM 3.8 mmol/L (3.5-5.1)
[2017-01-10 23:36] LABS: INR 0.9 (0.9-1.1); PROTHROMBIN TIME (PATIENT) 9.8 SECONDS (9.0-12.0)
[2017-01-10 23:46] LABS: THYROID STIMULATING HORMONE 1.47 uIu/ml (0.300-4.500)
[2017-01-11] VITALS (15 sets, daily range): BP systolic 112–133; BP diastolic 62–80; PULSE 94–112; TEMP 36.4–37; O2SAT 95–100; Ht 160 cm; Wt 111.6 kg
--- NOTE | 2017-01-11 00:38 | EMERGENCY ROOM VISIT NOTE ---
History Report prepared by Hiral: Krista Denise Under the Supervision of: Dr. Raisa Guevara D.O. First contact with patient: 22:39 Chief Complaint: RESPIRATORY PROBLEMS Stated Complaint: RESP. History of Present Illness The patient is a 61 year old female who presents to the Emergency Room with complaints of constant shortness of breath beginning tonight. The patient states that she has a history of COPD, asthma, and previous smoking. She reports that she takes prednisone every day and has not been around anyone sick. 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 The patient complains of increased work of breathing. HPI limited secondary to clinical condition. Source of History: patient History Limited By: dyspnea, other (clinical condition) Onset: tonight Position: other (respiratory) Quality: other (SOB) Timing: constant Note: Pt complains of increased work of breathing. Review of Systems See HPI for pertinent positives & negatives. ROS limited secondary to clinical condition. Past Medical & Surgical Medical Problems: (1) Acute respiratory failure (2) Anemia (3) Asthma (4) Asthma, Unspecified (5) Carpal tunnel syndrome (6) COPD (chronic obstructive pulmonary disease) (7) COPD exacerbation (8) Depression (9) Diabetes mellitus, type 2 (10) Esophageal Reflux (11) GERD (gastroesophageal reflux disease) (12) Hiatal hernia (13) History of cervical cancer (14) Hyperlipidemia (15) Hypertension (16) Hypertension (17) Intervertebral disc disorder (18) Nocturnal hypoxia (19) Obstructive Chronic Bronchitis With Acute Bronchitis (20) Osteoarthritis (21) Reflux esophagitis (22) Restless leg syndrome (23) Restless Legs Syndrome (24) Rheumatoid Arthritis (25) Tobacco Use Disorder Surgical Problems: (1) H/O colonoscopy (2) History of esophagogastroduodenoscopy (EGD) Family History Diabetes mellitus FH: heart disease FH: lung disease FHx: cancer Hypertension Social History Smoking Status: Never Smoker Alcohol Use: none Drug Use: none Marital Status: single Housing Status: lives alone Occupation Status: disabled Current/Historical Medications Scheduled Amitriptyline HCl (Amitriptyline HCl), 10 MG PO HS Amlodipine Besylate (Amlodipine Besylate), 5 MG PO DAILY Aspirin (Aspirin Ec), 81 MG PO DAILY Atorvastatin (Lipitor), 10 MG PO QAM Cyanocobalamin (Vitamin B12), 1,000 MCG PO DAILY Ferrous Sulfate (Kp Ferrous Sulfate), 1 TAB PO WM Fluticasone Propionate (Fluticasone Propionate), 2 SPRAYS LIDYA BID Furosemide (Lasix), 20 MG PO QAM Gabapentin (Neurontin), 100 MG PO TID Glimepiride (Glimepiride), 0.5 TAB PO DAILY Home O2 Therapy (Oxygen), 3 LITERS NA UD Ipratropium-Albuterol (Combivent Respimat), 1 PUFF INH QID Magnesium Oxide (Mag-Ox), 400 MG PO DAILY Metformin Hcl (Glucophage), 1,000 MG PO BID Montelukast Sodium (Singulair), 10 MG PO DAILY Oxybutynin Chloride (Ditropan Xl), 5 MG PO DAILY Pantoprazole Sodium (Protonix), 40 MG PO QAM Potassium Chloride (Potassium Chloride Er), 10 MEQ PO DAILY Pramipexole Dihydrochloride (Mirapex), 0.5 MG PO TID Prednisone Tab (Prednisone), 10 MG PO UD Ranitidine Hcl (Zantac), 300 MG PO HS [Utibron], 1 CAP INH BID Scheduled PRN Albuterol Hfa (Ventolin Hfa), 2 PUFFS INH Q4H PRN for Wheezing Benzonatate (Tessalon Perles), 100-200 MG PO TID PRN for Cough Cyclobenzaprine Hcl (Flexeril), 10 MG PO BID PRN for Muscle Spasm Diclofenac Sodium (Topical) (Voltaren 1% Top Gel), for Documentation Hydrocodone/Acetaminophen 5MG/325MG ([place] 5MG/325MG), 1 TABLET PO Q8 PRN for Moderate Pain Ipratropium-Albuterol (Duoneb), 1 VIAL NEB Q4H PRN for SOB/Wheezing Prednisone Tab (Prednisone), 10 MG PO UD PRN for Rescue Kit Allergies Coded Allergies: No Known Allergies (Verified , 01/10/17) Physical Exam Vital Signs Date Time Temp Pulse Resp B/P (MAP) Pulse Ox O2 Delivery O2 Flow Rate FiO2 01/11/17 01:10 106 24 142/86 100 BiPAP 01/11/17 00:30 102 20 100 01/11/17 00:13 112 34 100 BiPAP/CPAP 35 01/11/17 00:00 108 21 149/91 98 11/14/17 23:30 115 21 112/97 100 01/10/17 23:28 118 28 120/88 100 BiPAP 35 01/10/17 23:24 122 100 01/10/17 22:45 130 01/10/17 22:43 36.7 127 26 215/135 100 Nasal Cannula 4.0 01/10/17 22:43 90 2.0 Physical Exam GENERAL: alert, obese, well nourished, no distress, non-toxic EYE EXAM: normal conjunctiva, PERRL and EOM's grossly intact OROPHARYNX: no exudate, no erythema, lips, buccal mucosa, and tongue normal and mucous membranes are moist NECK: supple, no nuchal rigidity, no adenopathy, non-tender LUNGS: Increased work of breathing, one word answers, diminished breath sounds bilaterally, slight expiratory wheeze HEART: regular but distant, no murmurs, S1 normal and S2 normal ABDOMEN: abdomen soft, non-tender, normo-active bowel sounds, no masses, no rebound or guarding. BACK: Back is symmetrical on inspection and there is no deformity, no midline tenderness, no CVA tenderness. SKIN: no rashes and no bruising UPPER EXTREMITIES: upper extremities are grossly normal. LOWER EXTREMITIES: No pitting edema. NEURO EXAM: Normal sensorium, cranial nerves II-XII grossly intact, normal speech, no gross weakness of arms, no gross weakness of legs. Medical Decision & Procedures ER Provider Diagnostic Interpretation: Radiology results have been interpreted by the radiologist and reviewed by me. Chest X-Ray: No cardiomegaly, no effusion, no focal infiltrate, slightly increased markings of the right heart border, no wide mediastinum, pt slightly rotated, no significant change compared to prior. Laboratory Results 01/10/17 22:45 Red Blood Count 3.86, Mean Corpuscular Volume 88.6, Mean Corpuscular Hemoglobin 27.2, Mean Corpuscular Hemoglobin Concent 30.7, Mean Platelet Volume 8.9, Neutrophils (%) (Auto) 75.6, Lymphocytes (%) (Auto) 19.3, Monocytes (%) (Auto) 4.2, Eosinophils (%) (Auto) 0.3, Basophils (%) (Auto) 0.3, Neutrophils # (Auto) 8.45, Lymphocytes # (Auto) 2.16, Monocytes # (Auto) 0.47, Eosinophils # (Auto) 0.03, Basophils # (Auto) 0.03 01/10/17 22:45 Test 01/10/17 22:45 01/10/17 22:55 01/10/17 22:57 01/10/17 23:33 White Blood Count 11.17 K/uL (4.8-10.8) Red Blood Count 3.86 M/uL (4.2-5.4) Hemoglobin 10.5 g/dL (12.0-16.0) Hematocrit 34.2 % (37-47) Mean Corpuscular Volume 88.6 fL (80-100) Mean Corpuscular Hemoglobin 27.2 pg (25-34) Mean Corpuscular Hemoglobin Concent 30.7 g/dl (32-36) Platelet Count 380 K/uL (130-400) Mean Platelet Volume 8.9 fL (7.4-10.4) Neutrophils (%) (Auto) 75.6 % Lymphocytes (%) (Auto) 19.3 % Monocytes (%) (Auto) 4.2 % Eosinophils (%) (Auto) 0.3 % Basophils (%) (Auto) 0.3 % Neutrophils # (Auto) 8.45 K/uL (1.4-6.5) Lymphocytes # (Auto) 2.16 K/uL (1.2-3.4) Monocytes # (Auto) 0.47 K/uL (0.11-0.59) Eosinophils # (Auto) 0.03 K/uL (0-0.5) Basophils # (Auto) 0.03 K/uL (0-0.2) RDW Standard Deviation 51.1 fL (36.4-46.3) RDW Coefficient of Variation 16.0 % (11.5-14.5) Immature Granulocyte % (Auto) 0.3 % Immature Granulocyte # (Auto) 0.03 K/uL (0.00-0.02) Prothrombin Time 9.8 SECONDS (9.0-12.0) Prothromb Time International Ratio 0.9 (0.9-1.1) D-Dimer 320 ug/L FEU (0-500) Anion Gap 11.0 mmol/L (3-11) Est Creatinine Clear Calc Drug Dose 71.7 ml/min Estimated GFR () 71.7 Estimated GFR (Non- 61.8 BUN/Creatinine Ratio 19.5 (10-20) Calcium Level 9.4 mg/dl (8.5-10.1) Magnesium Level 2.5 mg/dl (1.8-2.4) Total Bilirubin 0.2 mg/dl (0.2-1) Aspartate Amino Transf (AST/SGOT) 26 U/L (15-37) Alanine Aminotransferase (ALT/SGPT) 35 U/L (12-78) Alkaline Phosphatase 85 U/L (45-117) Pro-B-Type Natriuretic Peptide 13 pg/ml (0-900) Total Protein 7.7 gm/dl (6.4-8.2) Albumin 3.9 gm/dl (3.4-5.0) Globulin 3.8 gm/dl (2.5-4.0) Albumin/Globulin Ratio 1.0 (0.9-2) Procalcitonin < 0.05 ng/ml (0-0.5) Thyroid Stimulating Hormone (TSH) 1.470 uIu/ml (0.300-4.500) Chemistry Specimen Hemolysis Influenza Type A Antigen Neg for Influ A (NEG) Influenza Type B Antigen Neg for Influ B (NEG) Bedside Troponin I < 0.030 ng/ml (0-0.045) Bedside Lactic Acid Venous 1.86 mmol/L (0.90-1.70) Laboratory results per my review. Medications Administered Medications (Trade) Dose Ordered Sig/Allison Route Start Time Stop Time Status Last Admin Dose Admin Albuterol/ Ipratropium (Duoneb) 12 ml ONE ONCE INH 01/10/17 22:45 01/10/17 22:46 DC 01/10/17 22:45 12 ML Methylprednisolone Sodium Succinate (Solu-Medrol IV) 125 mg NOW STAT IV 01/10/17 22:42 01/10/17 22:44 DC 01/10/17 23:02 125 MG Magnesium Sulfate (Magnesium Sulfate) 2 gm NOW STAT IV 01/10/17 22:42 01/10/17 22:44 DC 01/10/17 23:03 2 GM ECG Indication: SOB/dyspnea Rate (beats per minute): 119 Rhythm: sinus tachycardia Findings: no acute ischemic change, no ectopy, other (normal intervals, normal axis) ED Course 2238: The patient was evaluated in room B5. A complete history and physical exam was performed. 2242: Magnesium Sulfate 2gm IV, Solu-Medrol IV 125mg IV. 2245: Duoneb 12ml INH. 2245: I reviewed the patient's EMR. During her last stay, she was put on BiPAP and thought that her acute exacerbation was from fumes from bleach. 2309: Patient has decreased work of breathing. She is still tachycardic and hypertensive. BIPAP in place. 0005: I reevaluated and updated the patient. She is feeling better and is able to talk in gonzalez sentences. 0124: Upon reevaluation, the patient is doing well. I discussed the findings and the treatment plan with the patient. She expresses agreement and understanding. I spoke with Dr. Nunez of the [facility]. She will be evaluated for further management. Medical Decision Differential diagnosis: Etiologies such as infections, reactive airway disease, pneumonia, pneumothorax , COPD, CHF, cardiac ischemia, pulmonary embolism, musculoskeletal, gastrointestinal, as well as others were entertained. Feel given patient's abrupt symptoms and presentation, more likely patient with progress spasm secondary to noxious fumes or stimuli triggering an asthma attack and/or flareup of her COPD. Doubt likely cardiac in origin, doubt PE, ACS. No evidence of effusion or infiltrate on chest x-ray. No fevers or leukocytosis. Patient markedly improved here following medications and use of BiPAP. With decreased work of breathing patient's blood pressure improved spontaneously also patient did not require any additional blood pressure medications or treatment. Doubt hypertensive emergency. Doubt flash pulmonary edema. Patient's troponin and BNP were normal. Patient admitted for continued observation given severity of initial presentation and prior history of severe exacerbations requiring intubation. Medication Reconcilliation Current Medication List: was personally reviewed by ct Blood Pressure Screening Patient's blood pressure: Elevated blood pressure Blood pressure disposition: Referred to PCP Consults Time Called: 104 Consulting Physician: Dr. Nunez - brie Returned Call: [phone] Discussed patient's case with Dr. Jung. Impression Primary Impression: Asthma exacerbation Additional Impressions: COPD exacerbation Hypertension Obesity Bronchospasm Critical Care I have personally spent greater than 60 minutes of critical care time in the direct management of this patient. This includes bedside care, interpretation of diagnostic studies, and testing, discussion with consultants, patient, and family members, and other required patient management activities. This 60 minutes is in excess of all separately billable procedures. Scribe Attestation The scribe's documentation has been prepared under my direction and personally reviewed by me in its entirety. I confirm that the note above accurately reflects all work, treatment, procedures, and medical decision making performed by me. Departure Information Dispostion Being Evaluated By Hospitalist Martina Ferraro M.D. (PCP) Patient Instructions My [facility] Problem Qualifiers Primary Impression: Asthma exacerbation Asthma severity: severe Asthma persistence: unspecified Qualified Codes: J45.901 - Unspecified asthma with (acute) exacerbation Additional Impressions: Hypertension Hypertension type: essential hypertension Qualified Codes: I10 - Essential ( primary) hypertension Obesity Obesity type: unspecified obesity type Obesity classification: unspecified obesity classification Serious obesity comorbidity presence: without serious comorbidity Qualified Codes: E66.9 - Obesity, unspecified
[2017-01-11] MEDS ORDERED: ACETAMINOPHEN 325 MG TAB PO PRN (01:30)
[2017-01-11] MEDS ORDERED: ONDANSETRON INJ 2 MG/ML 2 ML VIAL IV PRN (01:30)
[2017-01-11] MEDS ORDERED: GLUCAGON FOR INJ 1 MG VIAL SQ PRN (01:30)
[2017-01-11] MEDS ORDERED: GLUCOSE 40% GEL 15 GM TUBE PO PRN (01:30)
[2017-01-11] MEDS ORDERED: LEVALBUTEROL/IPRATROPIUM NEB INH PRN (01:30)
[2017-01-11] MEDS ORDERED: DEXTROSE 50% 50 ML SYR IV PRN (01:30)
[2017-01-11] MEDS ORDERED: GLUCOSE 10 TABS/TUBE PO PRN (01:30)
[2017-01-11] MEDS ORDERED: GABAPENTIN 100 MG CAP PO STA (01:41)
[2017-01-11] MEDS ORDERED: INSULIN ASPART 100 UNITS/ML 3 ML PEN SC STA (01:41)
[2017-01-11] MEDS ORDERED: GUAIFENESIN 600 MG TABCR PO STA (01:42)
[2017-01-11] MEDS ORDERED: PRAMIPEXOLE DIHYDROCHLORIDE 0.5 MG TAB PO STA (01:42)
[2017-01-11] MEDS ORDERED: INSULIN GLARGINE SOLOSTAR 100 UNITS/ML 3 ML PEN SC STA (01:42)
[2017-01-11] MEDS ORDERED: LEVALBUTEROL 1.25MG/0.5ML NEB INH PRN ×2 (02:00→13:30)
[2017-01-11] MEDS ORDERED: IPRATROPIUM BROMIDE NEB SOLN 0.02% 2.5 ML VIAL INH PRN (02:00)
[2017-01-11 02:42] LABS: MAGNESIUM 2.5 mg/dl (1.8-2.4)
[2017-01-11] MEDS ORDERED: LEVALBUTEROL/IPRATROPIUM NEB INH SCH (03:00)
[2017-01-11] MEDS: IPRATROPIUM BROMIDE NEB SOLN 0.02% 2.5 ML VIAL INH SCH ×4 (03:03→19:07)
[2017-01-11] MEDS: LEVALBUTEROL 1.25MG/0.5ML NEB INH SCH ×4 (03:03→19:07)
[2017-01-11] MEDS ORDERED: SODIUM CHLOR 0.45% + 20MEQ KCL 1,000 ML IV ONE (03:15)
[2017-01-11 05:59] LABS: COMPLETE YES; HEMATOCRIT 30.6 % (37-47); IG% 0.1 %; LYMPH % 8.3 %; LYMPH ABS # 0.56 K/uL (1.2-3.4); MEAN CELL VOLUME 88.2 fL (80-100); MEAN CORPUSCULAR HEMOGLOBIN 27.1 pg (25-34); MEAN CORPUSCULAR HGB CONC 30.7 g/dl (32-36); MEAN PLATELET VOLUME 8.9 fL (7.4-10.4); MONO % 0.9 %; NEUT % 90.7 %; PLATELET COUNT 336 K/uL (130-400); RED BLOOD COUNT 3.47 M/uL (4.2-5.4); WHITE BLOOD COUNT 6.76 K/uL (4.8-10.8)
--- NOTE | 2017-01-11 06:22 | HISTORY & PHYSICAL EXAMINATION ---
DATE OF ADMISSION: 01/11/2017 Patient seen January 11, 2017. CHIEF COMPLAINT: Shortness of breath. HISTORY OF PRESENT ILLNESS: History obtained from patient and records. Medical history significant for chronic respiratory failure secondary to steroid dependent COPD on home O2, hypertension, DM2 on oral medications, past tobacco abuse, chronic anemia (baseline hemoglobin of 10-11), reflux. Recent confinement last month for COPD exacerbation. Patient currently on maintenance prednisone daily. Patient was playing bingo last night. She developed shortness of breath, dry cough symptoms after exposure to bingo marker scent. Chest heaviness, no fever, no chills.: Noted to be in respiratory distress in the Emergency Room. Started on BiPAP. Received Solu-Medrol and nebs treatment for COPD exacerbation. Currently feeling better. MEDICAL HISTORY: As above. SURGERIES: none HOME MEDICATIONS: Include Mirapex, prednisone, Zantac, Utibron, Glucophage, Singulair, mag oxide, Ditropan, Protonix, potassium chloride, glimepiride, Neurontin, home O2, Vicodin, Combivent, DuoNebs, vitamin B12, Flexeril, Voltaren, ferrous sulfate, Lasix, fluticasone, Ventolin, aspirin, amitriptyline, amlodipine, Lipitor, Tessalon Perles. ALLERGIES: No known drug allergies. FAMILY HISTORY: Lung cancer, dementia, hepatitis C, cirrhosis, heart disease. PERSONAL AND SOCIAL HISTORY: Past tobacco abuse. No chronic intake of alcoholic beverages. 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 -[place] ethnicity REVIEW OF SYSTEMS: As per HPI. 10 systems reviewed, all other ROS negative. PHYSICAL EXAMINATION: VITAL SIGNS: Blood pressure was noted to be 112/97, pulse rate 115, RR 24, temperature 36.4, sats 100 on BiPAP. GENERAL: minimal respiratory distress, slightly uncomfortable. SKIN: Pallor, warm. HEENT: Pale palpebral conjunctivae. No ptosis. Dry buccal mucosa. BiPAP mask in place. NECK: Short neck. No tenderness. CHEST: Expiratory wheezes. No tenderness. HEART: Tachycardic. No murmur. ABDOMEN: Soft, nontender. EXTREMITIES: No LE edema, no tenderness. No gross deformity. NEUROLOGIC: Coherent. No gross focality. LABORATORY DATA: Hemoglobin 10.5, hematocrit 37, white blood cells 11, platelets 380. Sodium 140, potassium 3.8, chloride 104, CO2 of 28, BUN 19, creatinine 0.9. Glucose was noted to be 165. Hemoglobin A1c from November 2016 was 7. Chest x-ray as per my interpretation, no atelectasis, COPD, cardiomegaly, no infiltrate, elevated right hemidiaphragm. ABG: pH 7.37, PCO2 54, pO2 174, 98% on BIPAP. ASSESSMENT: 1. Acute on chronic hypoxemic/hypercapnic failure secondary to chronic obstructive pulmonary disease exacerbation. Steroid dependent chronic obstructive pulmonary disease. Exacerbation precipitated by exposure to marker pen scent as per patient account. 2. Hypertension, stable. 3. DM2, insulin requiring, well controlled as of recent Hg A1c . 4. Past tobacco use. 5. Chronic anemia, hemoglobin at baseline. 6. GERD, stable on regimen. PLAN: GMF Continue BiPAP nebs, steroids. hold off on antibiotics for now. Pulmonary consult RE respiratory failure, COPD exacerbation. (Patient known to Dr. Solis.) ISS BG goal 140/180. May need basal Lantus to attain goal w/ anticipated hyperglycemia from steroids. DVT prophylaxis, Lovenox subQ. Full code. MTDD
--- NOTE | 2017-01-11 07:36 | DIAGNOSTIC IMAGING REPORT ---
CHEST ONE VIEW PORTABLE HISTORY: Short of breath. COMPARISON: Chest 11/28/2016. FINDINGS: No pneumothorax. No pleural effusions. No focal lung consolidations to suggest pneumonia. No evidence for pulmonary edema. Emphysema. IMPRESSION: Emphysema with no acute process within the chest. Electronically signed by: Francesco Rowe M.D. 01/11/2017 7:34 AM Dictated Date/Time: 01/11/2017 7:33 AM
[2017-01-11] MEDS: FLUTICASONE PROPIONATE NA SPR 16 GM BTL NAE SCH ×2 (07:43→20:47)
[2017-01-11] MEDS: PANTOprazole SOD 40 MG TAB PO SCH (08:19)
[2017-01-11] MEDS: ENOXAPARIN 40 MG/0.4 ML SYR SQ SCH (08:19)
[2017-01-11] MEDS: OXYBUTYNIN CHLORIDE 5 MG TABCR PO SCH ×3 (08:20→08:38)
[2017-01-11] MEDS: GABAPENTIN 100 MG CAP PO SCH ×3 (08:20→20:52)
[2017-01-11] MEDS: PRAMIPEXOLE DIHYDROCHLORIDE 0.5 MG TAB PO SCH ×3 (08:20→20:51)
[2017-01-11] MEDS: AMLODIPINE BESYLATE 5 MG TAB PO SCH (08:21)
[2017-01-11] MEDS: ATORVASTATIN 10 MG TAB PO SCH (08:21)
[2017-01-11] MEDS: CYCLOBENZAPRINE HCL 10 MG TAB PO PRN (08:21)
[2017-01-11] MEDS: ASPIRIN 81 MG ECTAB PO SCH (08:22)
[2017-01-11] MEDS: FERROUS SULFATE 325 MG TAB PO SCH ×3 (08:22→17:25)
[2017-01-11] MEDS: BENZONATATE 100MG CAP PO PRN (08:22)
[2017-01-11] MEDS: INSULIN ASPART 100 UNITS/ML 3 ML PEN SC SCH ×4 (08:27→20:54)
[2017-01-11] MEDS ORDERED: INSULIN GLARGINE SOLOSTAR 100 UNITS/ML 3 ML PEN SC SCH (09:00)
[2017-01-11] MEDS: IPRATROPIUM BROMIDE NEB SOLN 0.02% 2.5 ML VIAL INH PRN ×2 (11:49→18:06)
[2017-01-11] MEDS ORDERED: PHARMACY GLYCEMIC MGMT CONSULT PRN (13:37)
[2017-01-11] MEDS ORDERED: INSULIN HUMAN REGULAR PER UNIT 10 UNITS in SYRINGE 9.9 ML IV ONE (14:00)
[2017-01-11] MEDS ORDERED: INSULIN HUMAN NPH SC ONE (14:00)
--- NOTE | 2017-01-11 14:25 | Pharmacy Progress Note ---
Glycemic Control Intl Consult Date of Service Jan 11, 2017. Scope Glycemic Pharmacist consulted by Dr Murillo on 01/11/17 for glycemic control and to write orders per [facility] inpatient glycemic control protocol Objective Weight (Kilograms): 111.600 Accuchecks BSG (last 24hrs): Test 01/10/17 22:45 01/11/17 02:12 01/11/17 07:45 01/11/17 11:34 Random Glucose 165 mg/dl (70-99) Bedside Glucose 194 mg/dl (70-90) 200 mg/dl (70-90) 390 mg/dl (70-90) Laboratory Data (last 24hrs) Test 01/10/17 22:45 01/11/17 05:22 Anion Gap 11.0 mmol/L BUN/Creatinine Ratio 19.5 Blood Urea Nitrogen 19 mg/dl Creatinine 0.98 mg/dl Potassium Level 3.8 mmol/L Sodium Level 142 mmol/L White Blood Count 11.17 K/uL 6.76 K/uL Red Blood Count 3.86 M/uL 3.47 M/uL Hemoglobin 10.5 g/dL 9.4 g/dL Hematocrit 34.2 % 30.6 % Mean Corpuscular Volume 88.6 fL 88.2 fL Mean Corpuscular Hemoglobin 27.2 pg 27.1 pg Mean Corpuscular Hemoglobin Concent 30.7 g/dl 30.7 g/dl Platelet Count 380 K/uL 336 K/uL Mean Platelet Volume 8.9 fL 8.9 fL Neutrophils (%) (Auto) 75.6 % 90.7 % Lymphocytes (%) (Auto) 19.3 % 8.3 % Monocytes (%) (Auto) 4.2 % 0.9 % Eosinophils (%) (Auto) 0.3 % 0.0 % Basophils (%) (Auto) 0.3 % 0.0 % Neutrophils # (Auto) 8.45 K/uL 6.13 K/uL Lymphocytes # (Auto) 2.16 K/uL 0.56 K/uL Monocytes # (Auto) 0.47 K/uL 0.06 K/uL Eosinophils # (Auto) 0.03 K/uL 0.00 K/uL Basophils # (Auto) 0.03 K/uL 0.00 K/uL Recent Pertinent Medications Outpatient Anti-diabetic Regimen: * Amaryl 0.5 mg daily prn when on prednisone * Metformin 1 gm BID * A1c = 7 % 11/29/16 The patient is currently receiving: * Basal insulin: Lantus 5 units every 24 hours - received 10 units total this AM * Correctional Insulin: Novolog Correction per scale ACHS + 0200 Goal Range: Low 140 mg/dL - High 180 mg/dL Correction Factor: 25 mg/dL/unit * Prandial insulin: Per carb ratio of 1 unit per 15 grams CHO consumed * Oral Agents: None at this time Risk Factors for Insulin Resistance: * Steroids: Solu-medrol 125 mg IV x 1 late last night, then prednisone 40 mg daily * Diet: type 2 diabetes/ AHA Assessment & Plan ASSESSMENT: * 75 y/o female, well known to the pharmacy glycemic service, admitted with acute respiratory failure * BSGs are significantly elevated because of steroids and not enough insulin on board. In previous admissions, requirements are > 100 units/day when on ATC steroids. * With the once daily prednisone, it is easier to do NPH because it mimics the PK of the once daily prednisone * Since BSGs are so elevated at this point, will give a one time IV bolus of insulin and start the full dose (0.4 units/kg) of NPH now - especially since a dose of Solu-medrol was given last night PLAN FOR INPATIENT GLYCEMIC CONTROL: * Give 10 units (0.08 units/kg) Regular insulin IV x 1 now * d/c Lantus * NPH 45 units daily - start now * Novolog ACHS + 0200 * TIGHTEN goal to 110-150 * TIGHTEN CF to 20 * TIGHTEN CR to 7 DISCHARGE RECOMMENDATIONS: * A1c acceptable * Continue outpatient regimen Thank you.
[2017-01-11] MEDS: HYDROCODONE/ACETAMOPHEN 5/325MG TAB PO PRN (15:50)
[2017-01-11] MEDS ORDERED: NURSING VERBAL MED ORDER ONE (16:15)
--- NOTE | 2017-01-11 17:25 | Progress Note ---
Medicine Progress Note Date & Time of Visit: Jan 11, 2017 at 17:25. Subjective patient seen resting in bed, comfortable, on nasal cannula states she feels improved compared to yesterday still has dry cough, no dyspnea denies other symptoms Objective Last 8 Hrs Date Time Temp Pulse Resp B/P (MAP) Pulse Ox O2 Delivery O2 Flow Rate FiO2 01/11/17 15:08 37.0 111 20 123/62 (82) 99 2.0 01/11/17 14:58 96 20 98 Nasal Cannula 3.0 01/11/17 11:49 101 26 98 Nasal Cannula 2.0 01/11/17 11:22 36.7 101 18 124/80 (95) 96 01/11/17 10:47 100 BiPAP 2.0 35 Physical Exam: General- oriented x 3, not in distress, speaks in sentences with no effort Head- atraumatic Eyes- PERRL, EOMI, anicteric ENT- oropharynx clear Neck- supple, no JVD, no adenopathy, no thyromegaly Lungs- scattered mild wheezing bilaterally, no crackles Heart- regular rhythm; no murmur, normal rate Abdomen- normal bowel sounds, soft, nontender Extremities- no pretibial edema, no calf tenderness Neuro- alert, oriented x 3; PERRL, EOMI; no facial palsy; no dysarthria; motor 5 /5 bilaterally; sensation 100% no gross focal deficits Skin- warm & dry Laboratory Results: Last 24 Hours Test 01/10/17 22:45 01/10/17 22:55 01/10/17 22:57 01/10/17 23:33 White Blood Count 11.17 K/uL Red Blood Count 3.86 M/uL Hemoglobin 10.5 g/dL Hematocrit 34.2 % Mean Corpuscular Volume 88.6 fL Mean Corpuscular Hemoglobin 27.2 pg Mean Corpuscular Hemoglobin Concent 30.7 g/dl Platelet Count 380 K/uL Mean Platelet Volume 8.9 fL Neutrophils (%) (Auto) 75.6 % Lymphocytes (%) (Auto) 19.3 % Monocytes (%) (Auto) 4.2 % Eosinophils (%) (Auto) 0.3 % Basophils (%) (Auto) 0.3 % Neutrophils # (Auto) 8.45 K/uL Lymphocytes # (Auto) 2.16 K/uL Monocytes # (Auto) 0.47 K/uL Eosinophils # (Auto) 0.03 K/uL Basophils # (Auto) 0.03 K/uL RDW Standard Deviation 51.1 fL RDW Coefficient of Variation 16.0 % Immature Granulocyte % (Auto) 0.3 % Immature Granulocyte # (Auto) 0.03 K/uL Prothrombin Time 9.8 SECONDS Prothromb Time International Ratio 0.9 D-Dimer 320 ug/L FEU Sodium Level 142 mmol/L Potassium Level 3.8 mmol/L Chloride Level 104 mmol/L Carbon Dioxide Level 28 mmol/L Anion Gap 11.0 mmol/L Blood Urea Nitrogen 19 mg/dl Creatinine 0.98 mg/dl Est Creatinine Clear Calc Drug Dose 71.7 ml/min Estimated GFR () 71.7 Estimated GFR (Non- 61.8 BUN/Creatinine Ratio 19.5 Random Glucose 165 mg/dl Calcium Level 9.4 mg/dl Magnesium Level 2.5 mg/dl Total Bilirubin 0.2 mg/dl Aspartate Amino Transf (AST/SGOT) 26 U/L Alanine Aminotransferase (ALT/SGPT) 35 U/L Alkaline Phosphatase 85 U/L Pro-B-Type Natriuretic Peptide 13 pg/ml Total Protein 7.7 gm/dl Albumin 3.9 gm/dl Globulin 3.8 gm/dl Albumin/Globulin Ratio 1.0 Procalcitonin < 0.05 ng/ml Thyroid Stimulating Hormone (TSH) 1.470 uIu/ml Chemistry Specimen Hemolysis Influenza Type A Antigen Neg for Influ A Influenza Type B Antigen Neg for Influ B Bedside Troponin I < 0.030 ng/ml Bedside Lactic Acid Venous 1.86 mmol/L Test 01/11/17 02:12 01/11/17 05:22 01/11/17 07:45 01/11/17 11:34 Bedside Glucose 194 mg/dl 200 mg/dl 390 mg/dl White Blood Count 6.76 K/uL Red Blood Count 3.47 M/uL Hemoglobin 9.4 g/dL Hematocrit 30.6 % Mean Corpuscular Volume 88.2 fL Mean Corpuscular Hemoglobin 27.1 pg Mean Corpuscular Hemoglobin Concent 30.7 g/dl Platelet Count 336 K/uL Mean Platelet Volume 8.9 fL Neutrophils (%) (Auto) 90.7 % Lymphocytes (%) (Auto) 8.3 % Monocytes (%) (Auto) 0.9 % Eosinophils (%) (Auto) 0.0 % Basophils (%) (Auto) 0.0 % Neutrophils # (Auto) 6.13 K/uL Lymphocytes # (Auto) 0.56 K/uL Monocytes # (Auto) 0.06 K/uL Eosinophils # (Auto) 0.00 K/uL Basophils # (Auto) 0.00 K/uL RDW Standard Deviation 51.3 fL RDW Coefficient of Variation 15.9 % Immature Granulocyte % (Auto) 0.1 % Immature Granulocyte # (Auto) 0.01 K/uL Test 01/11/17 15:31 01/11/17 16:35 Bedside Glucose 139 mg/dl 120 mg/dl Assessment & Plan ASSESSMENT: 1. Acute on chronic hypoxemic/hypercapnic failure secondary to chronic obstructive pulmonary disease exacerbation. Steroid dependent chronic obstructive pulmonary disease. Exacerbation precipitated by exposure to marker pen scent as per patient account. -- CXR: no signs of pneumonia -- started on Nebs q4h, Prednisone continued usual bronchodilators -- improving Pulmonary consulted -- monitor 2. Hypertension, stable. -- stable 3. DM2, insulin requiring, well controlled as of recent Hg A1c . -- pharmacy consulted 4. Past tobacco use. 5. Chronic anemia, hemoglobin at baseline. 6. GERD, stable on regimen. DVT prophylaxis Lovenox Disposition anticipate d/c home when medically stable Current Inpatient Medications: Current Inpatient Medications Medications (Trade) Dose Ordered Sig/Allison Route Start Time Stop Time Status Last Admin Dose Admin Enoxaparin Sodium (Lovenox Inj) 40 mg Q24H SQ 01/11/17 09:00 02/10/17 08:59 01/11/17 08:19 40 MG Acetaminophen (Tylenol Tab) 650 mg Q4H PRN PO 01/11/17 01:30 02/10/17 01:29 Insulin Aspart (novoLOG ASPART) SLIDING SCALE If C... ACHS SC 01/11/17 06:30 02/10/17 06:59 01/11/17 12:30 13 UNITS Glucose (Glucose 40% Gel) 15-30 GRAMS 15 GRAMS... UD PRN PO 01/11/17 01:30 02/10/17 01:29 Glucose (Glucose Chew Tab) 4-8 Tablets 4 Tabl... UD PRN PO 01/11/17 01:30 02/10/17 01:29 Dextrose (Dextrose 50% 50ML Syringe) 25-50ML OF 50% DW IV FOR... UD PRN IV 01/11/17 01:30 02/10/17 01:29 Glucagon (Glucagon Inj) 1 mg UD PRN SQ 01/11/17 01:30 02/10/17 01:29 Amitriptyline HCl (Elavil Tab) 10 mg HS PO 01/11/17 21:00 02/10/17 20:59 Amlodipine Besylate (Norvasc Tab) 5 mg DAILY PO 01/11/17 09:00 02/10/17 08:59 01/11/17 08:21 5 MG Aspirin (Ecotrin Tab) 81 mg DAILY PO 01/11/17 09:00 02/10/17 08:59 01/11/17 08:22 81 MG Atorvastatin Calcium (Lipitor Tab) 10 mg QAM PO 01/11/17 09:00 02/10/17 08:59 01/11/17 08:21 10 MG Benzonatate (Tessalon Perles Cap) 100 mg TID PRN PO 01/11/17 01:30 02/10/17 01:29 01/11/17 08:22 100 MG Cyclobenzaprine HCl (Flexeril Tab) 10 mg BID PRN PO 01/11/17 01:30 02/10/17 01:29 01/11/17 08:21 10 MG Fluticasone Propionate (Flonase Nasal Blunt) 2 sprays BID LIDYA 01/11/17 09:00 02/10/17 08:59 01/11/17 07:43 2 SPRAYS Gabapentin (Neurontin Cap) 100 mg TID PO 01/11/17 09:00 02/10/17 08:59 01/11/17 13:16 100 MG Acetaminophen/ Hydrocodone Bitart ([place] 5/325 Tab) 1 tab Q6H PRN PO 01/11/17 01:30 01/25/17 01:29 01/11/17 15:50 1 TAB Pantoprazole Sodium (Protonix Tab) 40 mg QAM PO 01/11/17 09:00 02/10/17 08:59 01/11/17 08:19 40 MG Pramipexole Dihydrochloride (miraPEX TAB) 0.5 mg TID PO 01/11/17 09:00 02/10/17 08:59 01/11/17 13:16 0.5 MG Ranitidine HCl (zANTac TAB) 300 mg HS PO 01/11/17 21:00 02/10/17 20:59 Ferrous Sulfate (Feosol Tab) 325 mg TIDM PO 01/11/17 08:00 02/10/17 07:59 01/11/17 12:31 325 MG Prednisone (PredniSONE TAB) 40 mg DAILY PO 01/11/17 09:00 01/16/17 08:59 01/11/17 08:20 40 MG Guaifenesin (Mucinex Contr Rel Tab) 600 mg Q12 PO 01/11/17 21:00 02/10/17 20:59 Ondansetron HCl (Zofran Inj) 4 mg Q6H PRN IV 01/11/17 01:30 02/10/17 01:29 Miscellaneous Information (Consult Glycemic Management Pharmacy) 1 ea UD PRN N/A 01/11/17 13:37 02/10/17 13:36 Ipratropium Celina (Atrovent 0.02% 0.5MG/2.5ML Neb) 0.5 mg Q2R PRN INH 01/11/17 13:30 02/10/17 13:29 01/11/17 11:49 0.5 MG Ipratropium Celina (Atrovent 0.02% 0.5MG/2.5ML Neb) 0.5 mg Q4RWA INH 01/11/17 16:00 02/10/17 15:59 01/11/17 14:56 0.5 MG Levalbuterol (Xopenex 1.25MG/ 0.5ML Neb) 1.25 mg Q2R PRN INH 01/11/17 13:30 02/10/17 13:29 Levalbuterol (Xopenex 1.25MG/ 0.5ML Neb) 1.25 mg Q4RWA INH 01/11/17 16:00 02/10/17 15:59 01/11/17 14:56 1.25 MG Insulin Aspart (novoLOG ASPART) SLIDING SCALE If C... 0200 ONCE SC 01/12/17 02:00 01/12/17 02:01 Insulin Human NPH (novoLIN-N NPH) 45 units QAM SC 01/12/17 09:00 02/11/17 08:59 Future Hold Solifenacin (Vesicare) 5 mg QAM PO 01/12/17 09:00 02/11/17 08:59
[2017-01-11] MEDS: GUAIFENESIN 600 MG TABCR PO SCH (20:51)
[2017-01-11] MEDS: AMITRIPTYLINE HCL 10 MG TAB PO SCH (20:51)
[2017-01-11] MEDS: RANITIDINE HCL 150 MG TAB PO SCH (20:52)
[2017-01-12] VITALS (13 sets, daily range): BP systolic 116–138; BP diastolic 68–81; PULSE 79–111; TEMP 36.6–36.9; O2SAT 93–100
[2017-01-12] MEDS ORDERED: INSULIN ASPART 100 UNITS/ML 3 ML PEN SC ONE ×2 (02:00→10:43)
[2017-01-12] MEDS: HYDROCODONE/ACETAMOPHEN 5/325MG TAB PO PRN (02:40)
[2017-01-12] MEDS: LEVALBUTEROL 1.25MG/0.5ML NEB INH SCH ×4 (06:51→19:08)
[2017-01-12] MEDS: IPRATROPIUM BROMIDE NEB SOLN 0.02% 2.5 ML VIAL INH SCH ×4 (06:51→19:08)
--- NOTE | 2017-01-12 07:03 | CONSULTATION REPORT ---
DATE OF CONSULTATION: 01/11/2017 The patient was evaluated in room 280, bed 1. REASON FOR CONSULTATION: Acute on chronic respiratory failure, COPD exacerbation. The patient known to our clinic. HISTORY OF PRESENT ILLNESS: The patient is a 61-year-old female who is followed in our office by Trista Haque PA-C, whose last hospitalization was 11/28/2016 through 11/30/2016 for COPD exacerbation, presented to [facility] on 01/11/2017 for difficulty with her breathing. The patient does carry a past medical history of chronic respiratory failure secondary to COPD. She does use oxygen at home at 2 or 3 liters per minute via nasal cannula, hypertension, type 2 diabetes, on oral medication, history of tobacco use, chronic anemia, gastroesophageal reflux disease. The patient states that overall she was doing well until evening prior to arrival. She states that she was playing bingo which she does frequently. She states that there was a smell to the bingo marker that she uses. She states that when she had exposure to the smell, her chest started to tighten up. She states that she became very tight in the chest. She became very wheezy. She states that she did use her rescue inhaler but it did not seem to help. She states that she did have a little bit of cough with this. The patient states that she has had this happen with exposure to the odors from the bingo markers in the past. She has had no fever or chills associated with this. No significant mucus production. No significant coughing. Again, her chest feels tight. She does not really feel congested in her chest. She denies any pleuritic chest pain. When she arrived in the ER, she was given Solu-Medrol, started on nebulizer treatment for COPD exacerbation. She was also started on BiPAP. She did have a chest x-ray done which was unremarkable. She did have an ABG ordered but it was canceled. There was no leukocytosis. In discussion with the nurses, the patient was on BiPAP overnight. She was able to have the BiPAP removed this morning, at which time she was placed on 3 liters by nasal cannula. She has been saturating well. According to the nursing staff, since having the BiPAP taken off, oxygen saturations were in the 92-96% range on 2 liters. When I went in to examine the patient, the patient reports that she is doing better, although she is not back to her normal yet. She states that she still has wheezing. She states her last nebulizer treatment was about 7:00 this morning. She states the nebulizer treatments are helping. She is less short of breath than she was on arrival. Again, no fevers, no chills, no headache or lightheadedness, no dizziness, no sinus symptoms. She does have known history of gastroesophageal reflux disease but was not having any symptoms when the episode started that she is aware of. She had no chest pain, no anginal chest pain, no palpitations. The patient reports that she is a little bit frustrated with her breathing at this point. She states that currently she is on Combivent and Ventolin at home. In reviewing the chart and discussing the case with Trista Haque PA-C, the patient also was to be on Arnuity, she was given samples at her last visit, but the patient did not report that as one of her inhalers. In reviewing the chart, the patient had PFT in 2013, showed a forced vital capacity of 2.43 liters or 94% predicted, an FEV1 of 1.33 liters or 66% predicted. No significant response to bronchodilation. The patient had also undergone V/Q scan since her last hospitalization, which showed low probability of pulmonary emboli and it did show evidence of central air trapping according to the radiologist. She had a right heart cath done by Dr. Galindo which showed mildly elevated left and right-sided cardiac filling pressures, borderline pulmonary hypertension, heart failure with preserved ejection fraction. No evidence of significant pulmonary arterial hypertension. The patient also was evaluated by Dr. Yarbrough in November for allergies with no allergy of significance to try therapy for. The patient denies any other difficulty at this time. No GI symptoms. No nausea or vomiting, no indigestion or heartburn. She states that her heartburn has been under control. She is not having any difficulty with her bowels moving, no difficulty voiding. She does have some swelling in her legs but reports that this is normal for her. She has no numbness, tingling or weakness in her extremities. MEDICAL HISTORY: Includes COPD, chronic laryngitis, anemia, allergic rhinitis, gastric reflux, depressive disorder, type 2 diabetes mellitus, gastric ulcer, history of snoring, hyperlipidemia, multiple allergies, nocturnal hypoxemia, restless leg syndrome, seborrheic keratosis, shortness of breath and wheezing. CURRENT MEDICATIONS: Include amitriptyline 10 mg at bedtime, amlodipine 5 mg daily, Arnuity 100 mcg 1 puff daily, atorvastatin 10 mg daily, Magnet Nasal Mist p.r.n., Royal Aspirin 325 mg daily, benzonatate 100 mg 1 or 2 tablets 3 times daily as needed, Combivent Respimat 1 puff every 8-12 hours as needed, cyclobenzaprine 10 mg 1 tablet twice daily as needed, ferrous sulfate 325 mg 1 tablet twice daily, fluticasone 2 squirts each nostril twice daily, furosemide 20 mg 1 tablet daily, hydrocodone/acetaminophen 5/325 one tablet 2 or 3 times daily as needed, DuoNeb 1 unit dose in nebulizer every 4 hours as needed, Klor-Con 10 mEq 1 tablet daily, Mag-Ox 400 mg 1 tablet daily, metformin 1000 mg twice daily, Neurontin 100 mg 1 capsule 3 times daily, Norvasc dose unknown daily, oxygen 2 liters per minute by nasal cannula nightly and as needed, Mirapex 0.25 mg 2 tablets at bedtime, prednisone 10 mg daily, Protonix 40 mg daily, ranitidine 300 mg at bedtime, Singulair 10 mg daily, Tylenol 325 one to two tablets every 6 hours as needed, Utibron inhaler 1 capsule twice daily, Ventolin HFA 2 puffs q. 4 hours as needed, vitamin B12 one tablet daily, Voltaren gel as needed. ALLERGIES: The patient has no known drug allergies. PAST SURGICAL HISTORY: Includes: 1. Left cataract surgery. 2. Laser surgery of the cervix for cervical cancer. SOCIAL HISTORY: The patient is a longtime smoker, having quit 2 years ago. She smoked about one-third pack per day for 40 years. FAMILY HISTORY: Mother had lung cancer. Brother with esophageal cancer. REVIEW OF SYSTEMS: As above, otherwise unremarkable. PHYSICAL EXAMINATION: GENERAL: The patient is a 61-year-old -[place] female. She is alert and oriented x3. Mood is good. Affect is good. She does not get winded with conversation. She is able to complete sentences without difficulty. VITAL SIGNS: Temp 36.7, pulse 101, respirations 18, blood pressure is 124/80, pulse ox 96% on 2 liters. HEENT: Normocephalic, atraumatic. Pupils equal, round and reactive to light and accommodation. Extraocular movements are intact. [place], moist gingival and buccal mucosa. NECK: Short and thick. Wheezing from across the room. Wheezing is polyphonic in nature. No appreciated rale or rhonchi. CARDIOVASCULAR: Regular rate and rhythm. There are no appreciated murmurs, gallops or rubs. ABDOMEN: Obese, soft, nontender. No guarding, rigidity or organomegaly. EXTREMITIES: No erythema, no edema, no cyanosis or clubbing noted. NEUROLOGIC: Cranial nerves II-XII grossly intact. No focal deficit noted. LABORATORY DATA: Today shows a white count of 6000, H&H 9.4 and 30.6, platelet count 336,000. Labs on admission showed a white count of 11,000, H&H 10.5 and 34.2, platelet count of 380,000. Influenza A and B are negative. Chest x-ray, no significant abnormality. No evidence for any pulmonary vascular congestion. Lung pool are relatively clear. No evidence of consolidation or pneumonia. IMPRESSION: This is a 61-year-old female who has known problems with her breathing, does have some chronic obstructive pulmonary disease, question about asthma, question reactive airway disease, also cardiac component. At this point, I feel that the patient's current exacerbation is most likely reactive airway disease/allergy related as it came specifically after she came in contact with an inhaled odor or agent. The patient reports that this happened at [facility] and has happened previously. At this point, I agree with holding antibiotic as I do not feel that this is infectious in nature. I agree with the 40 mg of prednisone and will do a taper, however, would like to continue 40 mg tomorrow. I do want to get a little bit more aggressive with the pulmonary toilet and change her Atrovent and Xopenex to q. 4 hours while awake and q. 2 hours p.r.n. I also think we need to discuss with the patient to get her medication streamlined. The patient may benefit from a new triple inhaler called Trelegy which we will discuss this with her as an outpatient. For now, she is to continue her current regimen of inhalers in the hospital. At this point, we would like to recheck the patient in the a.m. to ensure that we are seeing improvement. Patient and plan reviewed and agreed upon. MTDD
[2017-01-12] MEDS: FERROUS SULFATE 325 MG TAB PO SCH ×3 (08:00→17:14)
[2017-01-12] MEDS ORDERED: INSULIN HUMAN NPH SC SCH ×2 (08:00→09:00)
[2017-01-12] MEDS: INSULIN ASPART 100 UNITS/ML 3 ML PEN SC SCH ×4 (08:52→21:21)
[2017-01-12] MEDS: FLUTICASONE PROPIONATE NA SPR 16 GM BTL NAE SCH ×3 (09:00→21:00)
[2017-01-12] MEDS: ENOXAPARIN 40 MG/0.4 ML SYR SQ SCH (09:01)
[2017-01-12] MEDS: ASPIRIN 81 MG ECTAB PO SCH (09:11)
[2017-01-12] MEDS: GUAIFENESIN 600 MG TABCR PO SCH ×2 (09:12→22:34)
[2017-01-12] MEDS: ATORVASTATIN 10 MG TAB PO SCH (09:12)
[2017-01-12] MEDS: GABAPENTIN 100 MG CAP PO SCH ×3 (09:14→22:34)
[2017-01-12] MEDS: AMLODIPINE BESYLATE 5 MG TAB PO SCH (09:16)
[2017-01-12] MEDS: PANTOprazole SOD 40 MG TAB PO SCH (09:17)
[2017-01-12] MEDS: VESICARE 5MG TABLET PO SCH (09:18)
[2017-01-12] MEDS: PRAMIPEXOLE DIHYDROCHLORIDE 0.5 MG TAB PO SCH ×3 (09:19→22:33)
--- NOTE | 2017-01-12 09:58 | Pulmonology Progress Note ---
Pulmonary Progress Note Date of Service Jan 12, 2017. Attending Dr. Solis Subjective Patient is doing well she notes some mild improvement last 24 hours but still notes dyspnea on exertion just walking to the bathroom supplemented by nasal cannula oxygen support. Objective Patient is currently doing well sitting up in a chair able to complete full sentences without using accessory muscles but still notes dyspnea with minimal exertion as walking to the bathroom this morning. VS: I/Os: +1.4L SaO2: 95-100 RR: 20-24 HR: 97-111 FiO2: 2-3L Respiratory: Bilateral expiratory wheezing Cardiac: S1-S2 distant heart sounds unable to auscultate for murmurs rubs or gallops Extremities: 1+ bilateral lower extremity pitting edema Abdomen: Positive bowel sounds soft nontender Current workup WBC: 11K (Neutro#: 8.45, EOS: WNL)7K POC Lactic Acid: 1.86> EKG (01/10/17: 2252): Sinus tachycardia rate 119 CXR (01/10/17) no acute cardiopulmonary process noted Current medications #1 ranitidine 3 mg daily at bedtime #2 Mucinex 600 mg every 12 hours #3 Xopenex/Atrovent nebulizer every 4 hours -#--5- -Y-c-r-o-v-e-n-t- -0-.-0-2--%- -w-b-b-q-d-h-z-e-r-s- -e-v-e-r-y- -2- -h-o-u-r-s- -w-h-e-n- -i-c-b-p-p-j-a-r-y- -i-a-c-p-c-y-e-s-s- -o-f- -p-r-h-a-t-h- #6 Xopenex 1.25 mg every 2 hours when necessary shortness of breath #7 aspirin 81 mg daily #8 Flonase 2 sprays twice a day #9 Protonix 40 mg daily #10 prednisone 40 mg daily #11 Tessalon Perles 100 mg 3 times a day when necessary Right heart catheterization 11/17/2016 RA 8 RV 35/8 PA 33/17 (25) PCW 18 PaSat 67% Pulse Ox - 94% Dayanara CO/CI 6.8/3.2 Thermo CO/CI 7.8/3.7 TPG 7 TDG -1 PVR ~1 Discussion: - Heart failure with preserved ejection fraction likely mildly contributing to patients symptoms. No evidence of significant pulmonary arterial hypertension. - Resume home lasix 20mg daily - Continue current antihypertensives - Salt restriction - Follow daily weights Echocardiogram the 2016 Left ventricle: EF=65-70%, left ventricular hypertrophy Right ventricle: Normal size left Atrium: Normal size and function Right Atrium: Normal size and function MV E/A Ratio: 0.74 In-hospital overnight oximetry study performed 03/08/2016 through 03/09/2016 Longest continuous desaturation less than 80% was 32 seconds Spirometry 01/02/2014 FEV1/FVC: 55 FEV1: 1.33/66% FVC: 2.43/94% Bronchodilator: No significant response Spirometry 09/27/2010 FEV1/FVC: 52 FEV1: 1.02/45% FVC: 1.95/64 Bronchodilator: Significant bronchodilator response based off FEV1 and FVC standards Post FEV1: 1.20/53% Psot FVC: 2.34/77% 6 minute walk study 11/01/2016 Baseline VS and Rommel scale: HR: 116,~O2 sat: 93% 1 min VS and Rommel Scale: HR: 121,~O2 sat: 93% [id number] [id number] 2 min VS and Rommel Scale: HR: 126,~O2 sat: 91% [id number] [id number] 3 min VS and Rommel Scale: HR: 127,~O2 sat: 90% [id number] MycfhKezbghu19Smpxo 4 min VS and Rommel Scale: HR: 124,~O2 sat: 90% KxrszFcfmkrj21Grn AbywuQnoimjw54Mvycm Pre-Intervention: the patient walked a total of 336 feet. VQ scan 11/08/2016 Low probability of pulmonary emboli ABGs 10/21/2016: 7.35/54/214/29 on 30% FiO2 11/17/2016: 7.39/46/36/27 (possible venous sampling) 01/11/2017: 7.34/54/174/30 on 35% Assessment & Plan 61-year-old female admitted for acute on chronic respiratory insufficiency: #1 Respiratory Insufficiency: Patient has 2 known issues that are combining greater chronic respiratory insufficiency. 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 There is also possible underlying obstructive sleep apnea even possible obesity hypoventilation syndrome which has not been diagnosed obtain as the patient has not been able to go to a polysomnogram at this time. #1 ACOS: At this time the patient does seem to be progressing and at this time I suggest we continue on her current medical regimen with a slow taper of her steroids 5 mg every 3 days as tolerated. #2 Cardiac: The patient is documented to be 1.4 L positive since her admission. At this time I suggest we limit her intake to 1 L of fluid per day and continue gentle diuresis monitor renal output. #3 Sleep Apnea: Patient has had no definitive diagnosis of sleep apnea this time I will order a nocturnal oximetry study. We still pushing for evaluation as an outpatient for full polysomnogram. Data Medications: Current Inpatient Medications Medications (Trade) Dose Ordered Sig/[place]ison Route Start Time Stop Time Status Last Admin Dose Admin Enoxaparin Sodium (Lovenox Inj) 40 mg Q24H SQ 01/11/17 09:00 02/10/17 08:59 01/12/17 09:01 40 MG Acetaminophen (Tylenol Tab) 650 mg Q4H PRN PO 01/11/17 01:30 02/10/17 01:29 Insulin Aspart (novoLOG ASPART) SLIDING SCALE If C... ACHS SC 01/11/17 06:30 02/10/17 06:59 01/12/17 08:52 2 UNITS Glucose (Glucose 40% Gel) 15-30 GRAMS 15 GRAMS... UD PRN PO 01/11/17 01:30 02/10/17 01:29 Glucose (Glucose Chew Tab) 4-8 Tablets 4 Tabl... UD PRN PO 01/11/17 01:30 02/10/17 01:29 Dextrose (Dextrose 50% 50ML Syringe) 25-50ML OF 50% DW IV FOR... UD PRN IV 01/11/17 01:30 02/10/17 01:29 Glucagon (Glucagon Inj) 1 mg UD PRN SQ 01/11/17 01:30 02/10/17 01:29 Amitriptyline HCl (Elavil Tab) 10 mg HS PO 01/11/17 21:00 02/10/17 20:59 01/11/17 20:51 10 MG Amlodipine Besylate (Norvasc Tab) 5 mg DAILY PO 01/11/17 09:00 02/10/17 08:59 01/12/17 09:16 5 MG Aspirin (Ecotrin Tab) 81 mg DAILY PO 01/11/17 09:00 02/10/17 08:59 01/12/17 09:11 81 MG Atorvastatin Calcium (Lipitor Tab) 10 mg QAM PO 01/11/17 09:00 02/10/17 08:59 01/12/17 09:12 10 MG Benzonatate (Tessalon Perles Cap) 100 mg TID PRN PO 01/11/17 01:30 02/10/17 01:29 01/11/17 08:22 100 MG Cyclobenzaprine HCl (Flexeril Tab) 10 mg BID PRN PO 01/11/17 01:30 02/10/17 01:29 01/11/17 08:21 10 MG Fluticasone Propionate (Flonase Nasal [place]) 2 sprays BID LIDYA 01/11/17 09:00 02/10/17 08:59 01/11/17 20:47 2 SPRAYS Gabapentin (Neurontin Cap) 100 mg TID PO 01/11/17 09:00 02/10/17 08:59 01/12/17 09:14 100 MG Acetaminophen/ Hydrocodone Bitart ([place] 5/325 Tab) 1 tab Q6H PRN PO 01/11/17 01:30 01/25/17 01:29 01/12/17 02:40 1 TAB Pantoprazole Sodium (Protonix Tab) 40 mg QAM PO 01/11/17 09:00 02/10/17 08:59 01/12/17 09:17 40 MG Pramipexole Dihydrochloride (miraPEX TAB) 0.5 mg TID PO 01/11/17 09:00 02/10/17 08:59 01/12/17 09:19 0.5 MG Ranitidine HCl (zANTac TAB) 300 mg HS PO 01/11/17 21:00 02/10/17 20:59 01/11/17 20:52 300 MG Ferrous Sulfate (Feosol Tab) 325 mg TIDM PO 01/11/17 08:00 02/10/17 07:59 01/12/17 08:00 325 MG Prednisone (PredniSONE TAB) 40 mg DAILY PO 01/11/17 09:00 01/16/17 08:59 01/12/17 09:16 40 MG Guaifenesin (Mucinex Contr Rel Tab) 600 mg Q12 PO 01/11/17 21:00 02/10/17 20:59 01/12/17 09:12 600 MG Ondansetron HCl (Zofran Inj) 4 mg Q6H PRN IV 01/11/17 01:30 02/10/17 01:29 Miscellaneous Information (Consult Glycemic Management Pharmacy) 1 ea UD PRN N/A 01/11/17 13:37 02/10/17 13:36 Ipratropium [place] (Atrovent 0.02% 0.5MG/2.5ML Neb) 0.5 mg Q2R PRN INH 01/11/17 13:30 02/10/17 13:29 01/11/17 18:06 0.5 MG Ipratropium [place] (Atrovent 0.02% 0.5MG/2.5ML Neb) 0.5 mg Q4RWA INH 01/11/17 16:00 02/10/17 15:59 01/12/17 06:51 0.5 MG Levalbuterol (Xopenex 1.25MG/ 0.5ML Neb) 1.25 mg Q2R PRN INH 01/11/17 13:30 02/10/17 13:29 01/11/17 18:06 1.25 MG Levalbuterol (Xopenex 1.25MG/ 0.5ML Neb) 1.25 mg Q4RWA INH 01/11/17 16:00 02/10/17 15:59 01/12/17 06:51 1.25 MG Solifenacin (Vesicare) 5 mg QAM PO 01/12/17 09:00 02/11/17 08:59 01/12/17 09:18 5 MG Insulin Human NPH (novoLIN-N NPH) 38 units QDB SC 01/12/17 08:00 02/11/17 07:59 01/12/17 08:59 38 UNITS Vital Signs: Date Time Temp Pulse Resp B/P (MAP) Pulse Ox O2 Delivery O2 Flow Rate FiO2 01/12/17 07:28 36.6 98 20 135/81 (99) 95 Nasal Cannula 3.0 01/12/17 07:15 36.9 99 22 130/81 (97) 100 2.0 01/12/17 06:52 111 24 98 Nasal Cannula 3.0 01/12/17 06:20 BiPAP 01/12/17 05:45 97 100 01/12/17 03:07 104 99 01/12/17 00:12 BiPAP 01/11/17 23:50 36.8 104 16 133/65 (87) 95 BiPAP 01/11/17 22:21 101 100 01/11/17 19:08 107 20 98 Nasal Cannula 3.0 01/11/17 18:06 100 20 98 Nasal Cannula 3.0 01/11/17 16:00 Nasal Cannula 2.0 01/11/17 15:08 37.0 111 20 123/62 (82) 99 2.0 01/11/17 14:58 96 20 98 Nasal Cannula 3.0 01/11/17 11:49 101 26 98 Nasal Cannula 2.0 01/11/17 11:22 36.7 101 18 124/80 (95) 96 01/11/17 10:47 100 BiPAP 2.0 35 Laboratory Results: Last 24 Hours Test 01/11/17 11:34 01/11/17 15:31 01/11/17 16:35 01/11/17 20:32 Bedside Glucose 390 mg/dl 139 mg/dl 120 mg/dl 198 mg/dl Test 01/12/17 02:19 01/12/17 07:37 Bedside Glucose 199 mg/dl 90 mg/dl
[2017-01-12] MEDS ORDERED: FUROSEMIDE 20 MG TAB PO ONE (11:00)
[2017-01-12] MEDS ORDERED: MONTELUKAST SOD 10 MG TAB PO ONE (11:00)
--- NOTE | 2017-01-12 11:10 | Progress Note ---
Medicine Progress Note Date & Time of Visit: Jan 12, 2017 at 11:08. Subjective seen resting in chair, comfortable states she feels that she is continuing to improve less dyspnea, less dry cough reports some epigastric discomfort, feels this is reflux some right knee pain no other symptoms Objective Last 8 Hrs Date Time Temp Pulse Resp B/P (MAP) Pulse Ox O2 Delivery O2 Flow Rate FiO2 01/12/17 10:29 95 Nasal Cannula 3.0 35 01/12/17 07:28 36.6 98 20 135/81 (99) 95 Nasal Cannula 3.0 01/12/17 07:15 36.9 99 22 130/81 (97) 100 2.0 01/12/17 06:52 111 24 98 Nasal Cannula 3.0 01/12/17 06:20 BiPAP 01/12/17 05:45 97 100 Physical Exam: General- oriented x 3, not in distress, speaks in sentences with no effort Head- atraumatic Eyes- EOMI, anicteric ENT- oropharynx clear Neck- supple, no JVD Lungs- scattered mild wheezing bilaterally-- improved, no crackles Heart- regular rhythm; no murmur, normal rate Abdomen- normal bowel sounds, soft, nontender Extremities- trace pretibial edema, no calf tenderness Neuro- alert, oriented x 3; no gross focal deficits Skin- warm & dry Laboratory Results: Last 24 Hours Test 01/11/17 11:34 01/11/17 15:31 01/11/17 16:35 01/11/17 20:32 Bedside Glucose 390 mg/dl 139 mg/dl 120 mg/dl 198 mg/dl Test 01/12/17 02:19 01/12/17 07:37 01/12/17 10:41 Bedside Glucose 199 mg/dl 90 mg/dl Assessment & Plan ASSESSMENT: 1. Acute on chronic hypoxemic/hypercapnic failure secondary to chronic obstructive pulmonary disease exacerbation. Steroid dependent chronic obstructive pulmonary disease. Exacerbation precipitated by exposure to marker pen scent as per patient account. -- CXR: no signs of pneumonia -- started on Nebs q4h, Prednisone -- improving daily Pulmonary consulted, appreciate the input -- monitor Chronic Diastolic CHF -- has trace leg edema continue usual Lasix 20mg po daily monitor 2. Hypertension, stable. -- stable 3. DM2, insulin requiring, well controlled as of recent Hg A1c . -- pharmacy consulted 4. Past tobacco use. 5. Chronic anemia, hemoglobin at baseline. 6. GERD - add Maalox DVT prophylaxis Lovenox Disposition anticipate d/c home when medically stable Current Inpatient Medications: Current Inpatient Medications Medications (Trade) Dose Ordered Sig/Allison Route Start Time Stop Time Status Last Admin Dose Admin Enoxaparin Sodium (Lovenox Inj) 40 mg Q24H SQ 01/11/17 09:00 02/10/17 08:59 01/12/17 09:01 40 MG Acetaminophen (Tylenol Tab) 650 mg Q4H PRN PO 01/11/17 01:30 02/10/17 01:29 Insulin Aspart (novoLOG ASPART) SLIDING SCALE If C... ACHS SC 01/11/17 06:30 02/10/17 06:59 01/12/17 08:52 2 UNITS Glucose (Glucose 40% Gel) 15-30 GRAMS 15 GRAMS... UD PRN PO 01/11/17 01:30 02/10/17 01:29 Glucose (Glucose Chew Tab) 4-8 Tablets 4 Tabl... UD PRN PO 01/11/17 01:30 02/10/17 01:29 Dextrose (Dextrose 50% 50ML Syringe) 25-50ML OF 50% DW IV FOR... UD PRN IV 01/11/17 01:30 02/10/17 01:29 Glucagon (Glucagon Inj) 1 mg UD PRN SQ 01/11/17 01:30 02/10/17 01:29 Amitriptyline HCl (Elavil Tab) 10 mg HS PO 01/11/17 21:00 02/10/17 20:59 01/11/17 20:51 10 MG Amlodipine Besylate (Norvasc Tab) 5 mg DAILY PO 01/11/17 09:00 02/10/17 08:59 01/12/17 09:16 5 MG Aspirin (Ecotrin Tab) 81 mg DAILY PO 01/11/17 09:00 02/10/17 08:59 01/12/17 09:11 81 MG Atorvastatin Calcium (Lipitor Tab) 10 mg QAM PO 01/11/17 09:00 02/10/17 08:59 01/12/17 09:12 10 MG Benzonatate (Tessalon Perles Cap) 100 mg TID PRN PO 01/11/17 01:30 02/10/17 01:29 01/11/17 08:22 100 MG Cyclobenzaprine HCl (Flexeril Tab) 10 mg BID PRN PO 01/11/17 01:30 02/10/17 01:29 01/11/17 08:21 10 MG Fluticasone Propionate (Flonase Nasal [place]) 2 sprays BID LIDYA 01/11/17 09:00 02/10/17 08:59 01/11/17 20:47 2 SPRAYS Gabapentin (Neurontin Cap) 100 mg TID PO 01/11/17 09:00 02/10/17 08:59 01/12/17 09:14 100 MG Acetaminophen/ Hydrocodone Bitart ([place] 5/325 Tab) 1 tab Q6H PRN PO 01/11/17 01:30 01/25/17 01:29 01/12/17 02:40 1 TAB Pantoprazole Sodium (Protonix Tab) 40 mg QAM PO 01/11/17 09:00 02/10/17 08:59 01/12/17 09:17 40 MG Pramipexole Dihydrochloride (miraPEX TAB) 0.5 mg TID PO 01/11/17 09:00 02/10/17 08:59 01/12/17 09:19 0.5 MG Ranitidine HCl (zANTac TAB) 300 mg HS PO 01/11/17 21:00 02/10/17 20:59 01/11/17 20:52 300 MG Ferrous Sulfate (Feosol Tab) 325 mg TIDM PO 01/11/17 08:00 02/10/17 07:59 01/12/17 08:00 325 MG Prednisone (PredniSONE TAB) 40 mg DAILY PO 01/11/17 09:00 01/16/17 08:59 01/12/17 09:16 40 MG Guaifenesin (Mucinex Contr Rel Tab) 600 mg Q12 PO 01/11/17 21:00 02/10/17 20:59 01/12/17 09:12 600 MG Ondansetron HCl (Zofran Inj) 4 mg Q6H PRN IV 01/11/17 01:30 02/10/17 01:29 Miscellaneous Information (Consult Glycemic Management Pharmacy) 1 ea UD PRN N/A 01/11/17 13:37 02/10/17 13:36 Ipratropium [place] (Atrovent 0.02% 0.5MG/2.5ML Neb) 0.5 mg Q2R PRN INH 01/11/17 13:30 02/10/17 13:29 01/11/17 18:06 0.5 MG Ipratropium [place] (Atrovent 0.02% 0.5MG/2.5ML Neb) 0.5 mg Q4RWA INH 01/11/17 16:00 02/10/17 15:59 01/12/17 06:51 0.5 MG Levalbuterol (Xopenex 1.25MG/ 0.5ML Neb) 1.25 mg Q2R PRN INH 01/11/17 13:30 02/10/17 13:29 01/11/17 18:06 1.25 MG Levalbuterol (Xopenex 1.25MG/ 0.5ML Neb) 1.25 mg Q4RWA INH 01/11/17 16:00 02/10/17 15:59 01/12/17 06:51 1.25 MG Solifenacin (Vesicare) 5 mg QAM PO 01/12/17 09:00 02/11/17 08:59 01/12/17 09:18 5 MG Insulin Human NPH (novoLIN-N NPH) 38 units QDB SC 01/12/17 08:00 02/11/17 07:59 01/12/17 08:59 38 UNITS Furosemide (Lasix Tab) 20 mg QAM PO 01/13/17 09:00 02/12/17 08:59 Montelukast Sodium (Singulair Tab) 10 mg QPM PO 01/13/17 21:00 02/12/17 20:59
[2017-01-12] MEDS ORDERED: ALUMINUM/MAGNESIUM SUSP 30 ML UDC PO PRN (11:15)
[2017-01-12] MEDS ORDERED: ZOLPIDEM TARTRATE 5 MG TAB PO PRN (11:15)
[2017-01-12 11:48] LABS: BLOOD UREA NITROGEN 20 mg/dl (7-18); BUN/CREATININE RATIO 25.2 (10-20); CALCIUM 8.4 mg/dl (8.5-10.1); CARBON DIOXIDE 28 mmol/L (21-32); CHLORIDE 108 mmol/L (98-107); CREATININE 0.79 mg/dl (0.60-1.20); GLUCOSE 97 mg/dl (70-99); SODIUM 141 mmol/L (136-145)
--- NOTE | 2017-01-12 15:16 | Pharmacy Progress Note ---
Pharmacy Glycemic Short Note 2 Date of Service Jan 12, 2017. ASSESSMENT: * Patient received 40 units of insulin yesterday with BSGs ranging from 90-199 mg/dL in the past 24 hours * Okay to continue with once daily NPH at this point but will reduce to ~0.35 units/kg due to requirements yesterday * I loosened the CF and CR this AM in case the NPH was not enough but the lunch BSG indicates she most likely does not need additional carb coverage PLAN FOR INPATIENT GLYCEMIC CONTROL: * Hold outpatient oral diabetes medications * NPH 38 units qAM to coincide with once daily prednisone * Bolus insulin * NovoLog per scale ACHS or Q6hrs while NPO * Goal Range: Low 110 mg/dL - High 150 mg/dL * Correction Factor: 30 mg/dL/unit * NO carb ratio PLAN FOR DISCHARGE: * please refer to 01/11 note
[2017-01-12] MEDS: AMITRIPTYLINE HCL 10 MG TAB PO SCH (22:33)
[2017-01-12] MEDS: RANITIDINE HCL 150 MG TAB PO SCH (22:34)
[2017-01-13 00:15] VITALS: BP 139/78; PULSE 102; TEMP 36.6; O2SAT 100
[2017-01-13 05:36] LABS: BASO % 0.2 %; BASO ABS # 0.02 K/uL (0-0.2); COMPLETE YES; EOS % 0.2 %; HEMATOCRIT 30.7 % (37-47); IG% 0.4 %; LYMPH % 37.4 %; MEAN CELL VOLUME 88.5 fL (80-100); MEAN CORPUSCULAR HEMOGLOBIN 26.8 pg (25-34); MEAN CORPUSCULAR HGB CONC 30.3 g/dl (32-36); MEAN PLATELET VOLUME 8.4 fL (7.4-10.4); NEUT % 48.8 %; PLATELET COUNT 308 K/uL (130-400); RED BLOOD COUNT 3.47 M/uL (4.2-5.4); WHITE BLOOD COUNT 8.02 K/uL (4.8-10.8)
[2017-01-13 06:10] LABS: BUN/CREATININE RATIO 24.5 (10-20); CALCIUM 8.5 mg/dl (8.5-10.1); CREATININE 0.72 mg/dl (0.60-1.20); POTASSIUM 3.7 mmol/L (3.5-5.1)
[2017-01-13] MEDS: INSULIN ASPART 100 UNITS/ML 3 ML PEN SC SCH ×3 (06:30→11:00)
[2017-01-13] MEDS: IPRATROPIUM BROMIDE NEB SOLN 0.02% 2.5 ML VIAL INH SCH ×2 (07:16→11:34)
[2017-01-13 07:17] VITALS: PULSE 82; O2SAT 98
[2017-01-13] MEDS: LEVALBUTEROL 1.25MG/0.5ML NEB INH SCH ×2 (07:17→11:34)
[2017-01-13] MEDS ORDERED: INSULIN HUMAN NPH SC SCH (08:00)
[2017-01-13 08:04] VITALS: BP 131/84; PULSE 90; TEMP 36.5; O2SAT 100
[2017-01-13] MEDS: GUAIFENESIN 600 MG TABCR PO SCH (08:29)
[2017-01-13] MEDS: PANTOprazole SOD 40 MG TAB PO SCH (08:30)
[2017-01-13] MEDS: AMLODIPINE BESYLATE 5 MG TAB PO SCH (08:30)
[2017-01-13] MEDS: FERROUS SULFATE 325 MG TAB PO SCH ×2 (08:30→11:56)
[2017-01-13] MEDS: ATORVASTATIN 10 MG TAB PO SCH (08:30)
[2017-01-13] MEDS: ASPIRIN 81 MG ECTAB PO SCH (08:30)
[2017-01-13] MEDS: BENZONATATE 100MG CAP PO PRN (08:31)
[2017-01-13] MEDS: PRAMIPEXOLE DIHYDROCHLORIDE 0.5 MG TAB PO SCH ×2 (08:31→13:31)
[2017-01-13] MEDS: GABAPENTIN 100 MG CAP PO SCH ×2 (08:32→13:31)
[2017-01-13] MEDS: FLUTICASONE PROPIONATE NA SPR 16 GM BTL NAE SCH (08:32)
[2017-01-13] MEDS: HYDROCODONE/ACETAMOPHEN 5/325MG TAB PO PRN (08:38)
[2017-01-13] MEDS: VESICARE 5MG TABLET PO SCH (08:45)
[2017-01-13] MEDS: ENOXAPARIN 40 MG/0.4 ML SYR SQ SCH (08:46)
[2017-01-13] MEDS ORDERED: FUROSEMIDE 20 MG TAB PO SCH (09:00)
--- NOTE | 2017-01-13 11:26 | Pharmacy Progress Note ---
Pharmacy Glycemic Short Note 2 Date of Service Jan 13, 2017. ASSESSMENT: * Pt is receiving SQ basal bolus insulin regimen while PO antidiabetic agents are on hold for admission * NPH is being used as basal insulin instead of Lantus as it matches the hyperglycemic kinetics of once daily prednisone * Pt has been receiving 40-50 units of insulin per day with adequate control * Pt had a slight "low" this morning of 67 mg/dl. Suspect this may have been from NovoLog correctional insulin at bedtime last night vs this is just a normal BSG for patient with A1c of 7% * Will remove HS coverage of NovoLog as likely pt own basal insulin secretion adequate overnigt * Will lower dose of NPH slightly as well. PLAN FOR INPATIENT GLYCEMIC CONTROL: * Hold outpatient oral diabetes medications * Basal insulin * Decrease NPH from 38 units to 35 units Sq daily in the morning with prednisone * Bolus insulin * NovoLog per scale ACHS or Q6hrs while NPO * Goal Range: Low 110 mg/dL - High 140 mg/dL * Correction Factor: 30 mg/dL/unit * Nutritional / Prandial insulin per carb ratio of 1 unit per -- grams CHO consumed {none needed --> NPH is covering steroid induced hyperglycemia}
[2017-01-13 11:34] VITALS: PULSE 98; O2SAT 98
--- NOTE | 2017-01-13 11:46 | PULMONARY PROGRESS NOTE ---
DATE: 01/13/2017 The patient was evaluated in room 280, bed 1. PROBLEM LIST: Includes acute on chronic respiratory insufficiency, obstructive ventilatory disease with reversible component from diastolic heart failure and suspected sleep apnea. SUBJECTIVE: The patient reports that she is feeling back to her baseline today. She states that her breathing is good. She has no difficulty. She state that she would actually like to go home today. She feels that she is not having any difficulty. She has been up in the room, walking to the bathroom and back. She has now been in the halls walking. She states that she is not really coughing much at this time. She states that she does have a little bit of wheeze, which is normal for her and she always has it. She states that she is not having any chest discomfort, not having extra tightness. She is using her oxygen at 3 liters per minute. She did have an overnight oximeter done last night, which showed a desaturation below 80% for a total of 1.8 minutes. She denies any cardiac symptoms. No chest pain. No chest pressure. No palpitations. She denies any GI symptoms. No nausea or vomiting. No indigestion, heartburn, or difficulty with her bowels. She does have chronic urinary incontinence and is following with urology for that. She states she was just recently placed on a new medication, but she does not remember the name. Swelling in her legs has improved. She denies any other concerns at this time. OBJECTIVE: GENERAL: The patient is a 61-year-old -[place] female in no acute distress. She is alert and oriented x3. Mood is good. Affect is good. Able to complete sentences without difficulty. No accessory muscle use. On 3 liters of oxygen. VITAL SIGNS: Temp 36.5, pulse 90, respirations 20, blood pressure is 131/84, and pulse ox 98%-100% on 3 liters. HEENT: Normocephalic and atraumatic. Pupils equal, round and reactive to light and accommodation. Extraocular movements are intact. [place] moist gingival and buccal mucosa. No evidence of white plaques or lesions. NECK: Short and thick. There is no mass. No adenopathy. No appreciated JVD. No thyromegaly. CHEST: The patient has faint expiratory wheeze in the upper airway, most of which clears with coughing. No rale or rhonchi noted. CARDIOVASCULAR: Regular rate and rhythm. No murmurs, gallops or rubs. ABDOMEN: Bowel sounds are present. Abdomen soft and nontender. No guarding, rigidity or organomegaly. EXTREMITIES: Trace edema bilaterally. No erythema or tenderness. No cyanosis or clubbing. LABORATORY DATA: Shows a white count of 8000, H&H 9.3 and 30.7, and platelet count 308,000. No new imaging. IMPRESSION: This is a 61-year-old -[place] female with multifactorial dyspnea. At this point, I think it is a combination of her acute on chronic respiratory failure as well as exacerbation of reactive/reversible airway disease in combination with some fluid overload and diastolic right heart failure. At this point, the patient reports that she is back to her baseline. On examining her, the patient appears to be doing well. She is saturating well on her 3 liters. At this point, I think that the patient needs to be ambulated today. If she does well with ambulation, I do not foresee any difficulty with her being discharged home today. She does have a followup already scheduled on January 31 with Trista Haque PA-C. As per Dr. Solis's note, I would like to continue prednisone taper, decreasing by 5 mg every 3 days. I would recommend to continue this as an outpatient. I would recommend to continue her current pulmonary medications and planning on possibly recommending or switching her to a new inhaler, called Trelegy in the outpatient setting, which is a combination inhaler of an inhaled corticosteroid, long acting beta agonist, and anticholinergic to hopefully simplify her regimen and to give her better control. Would recommend that she continue on fluid restriction at home and she will need to be followed up for possible sleep apnea. Otherwise, she is to continue with her current medications. We will put an order in for a two step as I do anticipate discharge either today or tomorrow. She was informed to contact the office if she had any worsening of her symptoms prior to her followup visit. Patient seen in room plan reviewed. Agree with the above assessment plan. EDUARDA
[2017-01-13] MEDS: CYCLOBENZAPRINE HCL 10 MG TAB PO PRN (13:30)
--- NOTE | 2017-01-13 14:20 | Progress Note ---
Medicine Progress Note Date & Time of Visit: Jan 13, 2017 at 14:17. Subjective sitting up in bed, comfortable in good spirits ambulated in the halls with no problems states she feels much better today no dyspnea, cough denies other symptoms states she is ready and would like to be discharged today Objective Last 8 Hrs Date Time Temp Pulse Resp B/P (MAP) Pulse Ox O2 Delivery O2 Flow Rate FiO2 01/13/17 11:34 98 20 98 Nasal Cannula 3.0 01/13/17 08:04 36.5 90 20 131/84 (100) 100 Nasal Cannula 3.0 01/13/17 08:00 Nasal Cannula 2.0 01/13/17 07:17 82 20 98 Nasal Cannula 3.0 Physical Exam: General- oriented x 3, not in distress, speaks in sentences with no effort Eyes- anicteric ENT- oropharynx clear Neck- supple, no JVD Lungs- clear breath sounds bilaterally, no rales, no wheezes Heart- regular rhythm; no murmur, normal rate Abdomen- normal bowel sounds, soft, nontender Extremities- trace pretibial edema, no calf tenderness Neuro- alert, oriented x 3; no gross focal deficits Skin- warm & dry Laboratory Results: Last 24 Hours Test 01/12/17 16:45 01/12/17 20:17 01/13/17 05:22 01/13/17 07:33 Bedside Glucose 123 mg/dl 168 mg/dl 67 mg/dl White Blood Count 8.02 K/uL Red Blood Count 3.47 M/uL Hemoglobin 9.3 g/dL Hematocrit 30.7 % Mean Corpuscular Volume 88.5 fL Mean Corpuscular Hemoglobin 26.8 pg Mean Corpuscular Hemoglobin Concent 30.3 g/dl Platelet Count 308 K/uL Mean Platelet Volume 8.4 fL Neutrophils (%) (Auto) 48.8 % Lymphocytes (%) (Auto) 37.4 % Monocytes (%) (Auto) 13.0 % Eosinophils (%) (Auto) 0.2 % Basophils (%) (Auto) 0.2 % Neutrophils # (Auto) 3.91 K/uL Lymphocytes # (Auto) 3.00 K/uL Monocytes # (Auto) 1.04 K/uL Eosinophils # (Auto) 0.02 K/uL Basophils # (Auto) 0.02 K/uL RDW Standard Deviation 51.6 fL RDW Coefficient of Variation 15.9 % Immature Granulocyte % (Auto) 0.4 % Immature Granulocyte # (Auto) 0.03 K/uL Nucleated RBC Absolute Count (auto) 0.03 K/uL Nucleated Red Blood Cells % 0.4 % Sodium Level 141 mmol/L Potassium Level 3.7 mmol/L Chloride Level 106 mmol/L Carbon Dioxide Level 31 mmol/L Anion Gap 4.0 mmol/L Blood Urea Nitrogen 18 mg/dl Creatinine 0.72 mg/dl Est Creatinine Clear Calc Drug Dose 97.3 ml/min Estimated GFR () 104.0 Estimated GFR (Non- 89.8 BUN/Creatinine Ratio 24.5 Random Glucose 80 mg/dl Calcium Level 8.5 mg/dl Test 01/13/17 11:38 Bedside Glucose 100 mg/dl Assessment & Plan ASSESSMENT: 1. Acute on chronic hypoxemic/hypercapnic failure secondary to chronic obstructive pulmonary disease exacerbation. Steroid dependent chronic obstructive pulmonary disease. Exacerbation precipitated by exposure to marker pen scent as per patient account. -- CXR: no signs of pneumonia -- started on Nebs q4h, Prednisone -- improving daily Pulmonary consulted, appreciate the input -- discharge on: Prednisone 40mg, taper by 5mg every 3 days, until 10mg po daily continue usual bronchodilators ff up with Pulmonary Clinic on 01/31/17 ff up with PCP in 1 week given advice to avoid irritants Chronic Diastolic CHF --euvolemic continue usual Lasix 20mg po daily monitor 2. Hypertension, stable. -- stable 3. DM2, insulin requiring, well controlled as of recent Hg A1c . -- pharmacy consulted 4. Past tobacco use. 5. Chronic anemia, hemoglobin at baseline. 6. GERD - dyspepsia resolved with Maalox DVT prophylaxis Lovenox Disposition d/c home ff up with PCP in 1 week ff up with Pulmonary Clinic on 01/31/17 Current Inpatient Medications: Current Inpatient Medications Medications (Trade) Dose Ordered Sig/[place]ison Route Start Time Stop Time Status Last Admin Dose Admin Enoxaparin Sodium (Lovenox Inj) 40 mg Q24H SQ 01/11/17 09:00 02/10/17 08:59 01/13/17 08:46 40 MG Acetaminophen (Tylenol Tab) 650 mg Q4H PRN PO 01/11/17 01:30 02/10/17 01:29 Glucose (Glucose 40% Gel) 15-30 GRAMS 15 GRAMS... UD PRN PO 01/11/17 01:30 02/10/17 01:29 Glucose (Glucose Chew Tab) 4-8 Tablets 4 Tabl... UD PRN PO 01/11/17 01:30 02/10/17 01:29 Dextrose (Dextrose 50% 50ML Syringe) 25-50ML OF 50% DW IV FOR... UD PRN IV 01/11/17 01:30 02/10/17 01:29 Glucagon (Glucagon Inj) 1 mg UD PRN SQ 01/11/17 01:30 02/10/17 01:29 Amitriptyline HCl (Elavil Tab) 10 mg HS PO 01/11/17 21:00 02/10/17 20:59 01/12/17 22:33 10 MG Amlodipine Besylate (Norvasc Tab) 5 mg DAILY PO 01/11/17 09:00 02/10/17 08:59 01/13/17 08:30 5 MG Aspirin (Ecotrin Tab) 81 mg DAILY PO 01/11/17 09:00 02/10/17 08:59 01/13/17 08:30 81 MG Atorvastatin Calcium (Lipitor Tab) 10 mg QAM PO 01/11/17 09:00 02/10/17 08:59 01/13/17 08:30 10 MG Benzonatate (Tessalon Perles Cap) 100 mg TID PRN PO 01/11/17 01:30 02/10/17 01:29 01/13/17 08:31 100 MG Cyclobenzaprine HCl (Flexeril Tab) 10 mg BID PRN PO 01/11/17 01:30 02/10/17 01:29 01/13/17 13:30 10 MG Fluticasone Propionate (Flonase Nasal [place]) 2 sprays BID LIDYA 01/11/17 09:00 02/10/17 08:59 01/13/17 08:32 2 SPRAYS Gabapentin (Neurontin Cap) 100 mg TID PO 01/11/17 09:00 02/10/17 08:59 01/13/17 13:31 100 MG Acetaminophen/ Hydrocodone Bitart ([place] 5/325 Tab) 1 tab Q6H PRN PO 01/11/17 01:30 01/25/17 01:29 01/13/17 08:38 1 TAB Pantoprazole Sodium (Protonix Tab) 40 mg QAM PO 01/11/17 09:00 02/10/17 08:59 01/13/17 08:30 40 MG Pramipexole Dihydrochloride (miraPEX TAB) 0.5 mg TID PO 01/11/17 09:00 02/10/17 08:59 01/13/17 13:31 0.5 MG Ranitidine HCl (zANTac TAB) 300 mg HS PO 01/11/17 21:00 02/10/17 20:59 01/12/17 22:34 300 MG Ferrous Sulfate (Feosol Tab) 325 mg TIDM PO 01/11/17 08:00 02/10/17 07:59 01/13/17 11:56 325 MG Prednisone (PredniSONE TAB) 40 mg DAILY PO 01/11/17 09:00 01/16/17 08:59 01/13/17 08:30 40 MG Guaifenesin (Mucinex Contr Rel Tab) 600 mg Q12 PO 01/11/17 21:00 02/10/17 20:59 01/13/17 08:29 600 MG Ondansetron HCl (Zofran Inj) 4 mg Q6H PRN IV 01/11/17 01:30 02/10/17 01:29 Miscellaneous Information (Consult Glycemic Management Pharmacy) 1 ea UD PRN N/A 01/11/17 13:37 02/10/17 13:36 Ipratropium [place] (Atrovent 0.02% 0.5MG/2.5ML Neb) 0.5 mg Q4RWA INH 01/11/17 16:00 02/10/17 15:59 01/13/17 11:34 0.5 MG Levalbuterol (Xopenex 1.25MG/ 0.5ML Neb) 1.25 mg Q2R PRN INH 01/11/17 13:30 02/10/17 13:29 01/11/17 18:06 1.25 MG Levalbuterol (Xopenex 1.25MG/ 0.5ML Neb) 1.25 mg Q4RWA INH 01/11/17 16:00 02/10/17 15:59 01/13/17 11:34 1.25 MG Solifenacin (Vesicare) 5 mg QAM PO 01/12/17 09:00 02/11/17 08:59 01/13/17 08:45 5 MG Furosemide (Lasix Tab) 20 mg QAM PO 01/13/17 09:00 02/12/17 08:59 01/13/17 08:32 20 MG Montelukast Sodium (Singulair Tab) 10 mg QPM PO 01/13/17 21:00 02/12/17 20:59 Al Hydroxide/Mg Hydroxide (Maalox Susp) 30 ml Q6H PRN PO 01/12/17 11:15 02/11/17 11:14 01/12/17 14:11 30 ML Zolpidem Tartrate (Ambien Tab) 2.5 mg HS PRN PO 01/12/17 11:15 02/11/17 11:14 01/12/17 22:33 2.5 MG Insulin Human NPH (novoLIN-N NPH) 35 units QDB SC 01/13/17 08:00 02/12/17 07:59 01/13/17 08:44 35 UNITS Insulin Aspart (novoLOG ASPART) SLIDING SCALE If C... AC GA 01/13/17 06:30 02/12/17 06:29
[2017-01-13] MEDS ORDERED: ALBUTEROL HFA 8 GM INHALER INH ONE (14:21)
[2017-01-13] MEDS ORDERED: PRED10TA PO (14:29)
[2017-01-13] MEDS ORDERED: ALBUTEROL HFA 8 GM INHALER INH PRN (14:30)
[2017-01-13 14:31] VITALS: BP 131/84; PULSE 98; TEMP 36.5; O2SAT 98
--- NOTE | 2017-01-13 14:36 | Discharge Instructions ---
Discharge Instructions Date of Service Jan 13, 2017. Admission Reason for Admission: Acute Respiratory Failure Discharge Discharge Diagnosis / Problem: ACUTE RESPIRATORY FAILURE Discharge Goals Goal(s): Diagnostic testing, Therapeutic intervention Activity Recommendations Activity Limitations: as noted below (no heavy exertion until re-evaluated by Primary Care Physician) Lifting Limitations: until after follow-up appointment Exercise/Sports Limitations: until after follow-up appointment . Instructions / Follow-Up Instructions / Follow-Up PLEASE REVIEW YOUR NEW MEDICATION LIST AND FOLLOW INSTRUCTIONS CAREFULLY. CALL PRIMARY CARE PHYSICIAN OR OUTDOOR POWER EQUIPMENT MECHANIC, OR RETURN TO ER IF WITH WORSENING OF SYMPTOMS. MAINTAIN 2 GRAM SALT DIET AND DAILY FLUID RESTRICTION OF 2 LITERS/DAY. FOLLOW UP WITH DR. CUNHA ON 01/18/17 AT 9:45 AM. FOLLOW UP WITH PULMONARY CLINIC ON 01/31/17. Current Hospital Diet Patient's current hospital diet: Diabetes Type 2 Diet, AHA Diet (Heart Healthy) Discharge Diet Recommended Diet: AHA Diet (Heart Healthy), Diabetes Type 2 Diet Fluid Restriction: 2000 ml (8 cups) Pending Studies Studies pending at discharge: no Laboratory Results Hemoglobin A1c Test 11/29/16 06:08 Range/Units Estimated Average Glucose 154 mg/dl Hemoglobin A1c 7.0 H 4.5-5.6 % Medical Emergencies . Who to Call and When: Medical Emergencies: If at any time you feel your situation is an emergency, please call 911 immediately. . Non-Emergent Contact Non-Emergency issues call your: Primary Care Provider, Tip Length Checker Call Non-Emergent contact if: you have a fever, you have any medication questions . . "Provider Documentation" section prepared by Rene Murillo. . VTE Core Measure Inpt VTE Proph given/why not?: Enoxaparin (Lovenox)SQ
--- NOTE | 2017-01-13 14:42 | Discharge Summary ---
Discharge Summary Date of Service Jan 13, 2017. Discharge Summary Admission Date: Jan 11, 2017 at 01:17 Discharge Date: Jan 13, 2017 Discharge Disposition: Home Principal Diagnosis: Acute on chronic hypoxemic/hypercapnic failure secondary to chronic obstructive pulmonary disease exacerbation. Secondary Diagnoses/Problems: Please refer to hospital course below. Procedures: CHEST ONE VIEW PORTABLE HISTORY: Short of breath. COMPARISON: Chest 11/28/2016. FINDINGS: No pneumothorax. No pleural effusions. No focal lung consolidations to suggest pneumonia. No evidence for pulmonary edema. Emphysema. IMPRESSION: Emphysema with no acute process within the chest. Consultations: Pulmonary Dr. Solis Pending Studies/Follow-Up: Please refer to hospital course below. Medication Reconciliation New Medications: Prednisone Tab (Prednisone) 10 Mg Tab 10 MG PO UD, #60 TAB 1 Refill take 4 tabs po daily x 3 days, then take 3 and 1/2 tabs po daily x 3 days, then take 3 tabs po daily x 3 days, then take 2 and 1/2 tabs po daily x 3 days, then take 2 tabs po daily x 3 days, then take 1 and 1/2 tabs po daily x 3 days, then take 1 tab po daily Continued Medications: Albuterol Hfa (Ventolin Hfa) 200 Puffs/47730 Mcg Aers 2 PUFFS INH Q4H PRN for Wheezing, INHALER Amitriptyline HCl (Amitriptyline HCl) 10 Mg Tab 10 MG PO HS Amlodipine Besylate (Amlodipine Besylate) 5 Mg Tab 5 MG PO DAILY Aspirin (Aspirin Ec) 81 Mg Tab 81 MG PO DAILY Atorvastatin (Lipitor) 10 Mg Tab 10 MG PO QAM Benzonatate (Tessalon Perles) 100 Mg Cap 100-200 MG PO TID PRN for Cough, CAP Cyanocobalamin (Vitamin B12) 1,000 Mcg Tab 1000 MCG PO DAILY Cyclobenzaprine Hcl (Flexeril) 10 Mg Tab 10 MG PO BID PRN for Muscle Spasm Diclofenac Sodium (Topical) (Voltaren 1% Top Gel) 1 % Gel PRN for Documentation Ferrous Sulfate (Kp Ferrous Sulfate) 325 Mg Tab 1 TAB PO WM for 30 Days, TAB 3 Refills Fluticasone Propionate (Fluticasone Propionate) 50 Mcg/Act Spr 2 SPRAYS LIDYA BID Furosemide (Lasix) 20 Mg Tab 20 MG PO QAM, TAB Gabapentin (Neurontin) 100 Mg Cap 100 MG PO TID Glimepiride (Glimepiride) 1 Mg Tab 0.5 TAB PO DAILY, TAB 3 Refills As needed when blood sugars elevated on prednisone. Home O2 Therapy (Oxygen) Gas 3 LITERS NA UD, BTL USE WHEN SLEEPING AND NEEDED Hydrocodone/Acetaminophen 5MG/325MG ([place] 5MG/325MG) Tab 1 TABLET PO Q8 PRN for Moderate Pain, TAB Ipratropium-Albuterol (Duoneb) 3 Ml Nebu 1 VIAL NEB Q4H PRN for SOB/Wheezing, INHA Ipratropium-Albuterol (Combivent Respimat) 1 Aer Aer 1 PUFF INH QID, INH Magnesium Oxide (Mag-Ox) 400 Mg Tab 400 MG PO DAILY, TAB Metformin Hcl (Glucophage) 1,000 Mg Tab 1000 MG PO BID Montelukast Sodium (Singulair) 10 Mg Tab 10 MG PO DAILY, TAB Oxybutynin Chloride (Ditropan Xl) 5 Mg Tab 5 MG PO DAILY, TAB 3 Refills Pantoprazole Sodium (Protonix) 40 Mg Tab 40 MG PO QAM TAKE THIS MEDICATION ONCE DAILY 30 MINUTES BEFORE FIRST MEAL OF THE DAY Potassium Chloride (Potassium Chloride Er) 10 Meq Tab 10 MEQ PO DAILY, TAB Pramipexole Dihydrochloride (Mirapex) 0.5 Mg Tab 0.5 MG PO TID Ranitidine Hcl (Zantac) 300 Mg Tab 300 MG PO HS [Utibron] () 1 CAP INH BID indacaterol-glycopyrolate 27.5-15.6 mcg capsule Discontinued Medications: Prednisone Tab (Prednisone) 10 Mg Tab 10 MG PO UD PRN for Rescue Kit, TAB NEEDED RESCUE KIT FOLLOWS: TAKE 5 TABLETS (50 MG) DAILY FOR 4 DAYS THEN, TAKE 4 TABLETS (40 MG) DAILY FOR 4 DAYS THEN, TAKE 3 TABLETS (30 MG) DAILY FOR 4 DAYS THEN, TAKE 2 TABLETS (20 MG) DAILY FOR 4 DAYS THEN, TAKE 1 TABLET (10 MG) DAILY FOR 4 DAYS. Prednisone Tab (Prednisone) 10 Mg Tab 10 MG PO UD for 30 Days, #60 TAB 2 Refills take 6 tabs po daily x 2 days, then take 4 tabs po daily x 2 days, then take 3 tabs po daily x 2 days, then take 2 tabs po daily x 2 days, then take 1 tab po daily indefinitely Admission Information HPI (per Admitting provider): DATE OF ADMISSION: 01/11/2017 Patient seen January 11, 2017. CHIEF COMPLAINT: Shortness of breath. HISTORY OF PRESENT ILLNESS: History obtained from patient and records. Medical history significant for chronic respiratory failure secondary to steroid dependent COPD on home O2, hypertension, DM2 on oral medications, past tobacco abuse, chronic anemia (baseline hemoglobin of 10-11), reflux. Recent confinement last month for COPD exacerbation. Patient currently on maintenance prednisone daily. Patient was playing bingo last night. She developed shortness of breath, dry cough symptoms after exposure to bingo marker scent. Chest heaviness, no fever, no chills.: Noted to be in respiratory distress in the Emergency Room. Started on BiPAP. Received Solu-Medrol and nebs treatment for COPD exacerbation. Currently feeling better. MEDICAL HISTORY: As above. SURGERIES: none HOME MEDICATIONS: Include Mirapex, prednisone, Zantac, Utibron, Glucophage, Singulair, mag oxide, Ditropan, Protonix, potassium chloride, glimepiride, Neurontin, home O2, Vicodin, Combivent, DuoNebs, vitamin B12, Flexeril, Voltaren, ferrous sulfate, Lasix, fluticasone, Ventolin, aspirin, amitriptyline, amlodipine, Lipitor, Tessalon Perles. ALLERGIES: No known drug allergies. FAMILY HISTORY: Lung cancer, dementia, hepatitis C, cirrhosis, heart disease. PERSONAL AND SOCIAL HISTORY: Past tobacco abuse. No chronic intake of alcoholic beverages. 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 -Greek ethnicity Physical Exam (per Admitting): PHYSICAL EXAMINATION: VITAL SIGNS: Blood pressure was noted to be 112/97, pulse rate 115, RR 24, temperature 36.4, sats 100 on BiPAP. GENERAL: minimal respiratory distress, slightly uncomfortable. SKIN: Pallor, warm. HEENT: Pale palpebral conjunctivae. No ptosis. Dry buccal mucosa. BiPAP mask in place. NECK: Short neck. No tenderness. CHEST: Expiratory wheezes. No tenderness. HEART: Tachycardic. No murmur. ABDOMEN: Soft, nontender. EXTREMITIES: No LE edema, no tenderness. No gross deformity. NEUROLOGIC: Coherent. No gross focality. Hospital Course Acute on chronic hypoxemic/hypercapnic failure secondary to chronic obstructive pulmonary disease exacerbation. Steroid dependent chronic obstructive pulmonary disease. Exacerbation precipitated by exposure to marker pen scent as per patient account. -- CXR: no signs of pneumonia -- started on Nebs q4h, Prednisone -- improving daily Pulmonary consulted, appreciate the input -- discharge on: Prednisone 40mg, taper by 5mg every 3 days, until 10mg po daily continue usual bronchodilators ff up with Pulmonary Clinic on 01/31/17 ff up with PCP in 1 week given advice to avoid irritants Chronic Diastolic CHF --euvolemic continue usual Lasix 20mg po daily monitor Hypertension, stable. -- stable DM2, insulin requiring, well controlled as of recent Hg A1c . -- pharmacy consulted Chronic anemia, hemoglobin at baseline. GERD - dyspepsia resolved with Maalox Disposition d/c home ff up with PCP in 1 week ff up with Pulmonary Clinic on 01/31/17 Total time spent on discharge = This includes examination of the patient, discharge planning, medication reconciliation, and communication with other providers. Discharge Instructions Discharge Instructions Date of Service Jan 13, 2017. Admission Reason for Admission: Acute Respiratory Failure Discharge Discharge Diagnosis / Problem: ACUTE RESPIRATORY FAILURE Discharge Goals Goal(s): Diagnostic testing, Therapeutic intervention Activity Recommendations Activity Limitations: as noted below (no heavy exertion until re-evaluated by Primary Care Physician) Lifting Limitations: until after follow-up appointment Exercise/Sports Limitations: until after follow-up appointment . Instructions / Follow-Up Instructions / Follow-Up PLEASE REVIEW YOUR NEW MEDICATION LIST AND FOLLOW INSTRUCTIONS CAREFULLY. CALL PRIMARY CARE PHYSICIAN OR DIRECTOR OF IT OPERATIONS, OR RETURN TO ER IF WITH WORSENING OF SYMPTOMS. MAINTAIN 2 GRAM SALT DIET AND DAILY FLUID RESTRICTION OF 2 LITERS/DAY. FOLLOW UP WITH DR. CUNHA ON 01/18/17 AT 9:45 AM. FOLLOW UP WITH PULMONARY CLINIC ON 01/31/17. Current Hospital Diet Patient's current hospital diet: Diabetes Type 2 Diet, AHA Diet (Heart Healthy) Discharge Diet Recommended Diet: AHA Diet (Heart Healthy), Diabetes Type 2 Diet Fluid Restriction: 2000 ml (8 cups) Pending Studies Studies pending at discharge: no Laboratory Results Hemoglobin A1c Test 11/29/16 06:08 Range/Units Estimated Average Glucose 154 mg/dl Hemoglobin A1c 7.0 H 4.5-5.6 % Medical Emergencies . Who to Call and When: Medical Emergencies: If at any time you feel your situation is an emergency, please call 911 immediately. . Non-Emergent Contact Non-Emergency issues call your: Primary Care Provider, Energy Broker Call Non-Emergent contact if: you have a fever, you have any medication questions . . "Provider Documentation" section prepared by Rene Murillo. . VTE Core Measure Inpt VTE Proph given/why not?: Enoxaparin (Lovenox)SQ
[2017-01-13] MEDS ORDERED: MONTELUKAST SOD 10 MG TAB PO SCH (21:00)
== END 2017-01-13 15:45 | disposition home or self-care (01) | DRG 189 ==
LOC: C.EDB 22:36 → C.MED 01-11 01:17 → ENRESERV 01-11 02:23
PROVIDERS: ADMIT Internal Medicine; ATTEND Internal Medicine
DX: J96.21 Acute and chronic respiratory failure with hypoxia (principal); J44.1 Chronic obstructive pulmonary disease with (acute) exacerbation; I50.32 Chronic diastolic (congestive) heart failure; J96.22 Acute and chronic respiratory failure with hypercapnia; J45.909 Unspecified asthma, uncomplicated; Z87.891 Personal history of nicotine dependence; Z79.52 Long term (current) use of systemic steroids; Z83.3 Family history of diabetes mellitus; Z82.49 Family history of ischemic heart disease and other diseases of the circulatory system; Z79.82 Long term (current) use of aspirin; Z99.81 Dependence on supplemental oxygen; E11.9 Type 2 diabetes mellitus without complications; D64.9 Anemia, unspecified; K21.9 Gastro-esophageal reflux disease without esophagitis; Z79.84 Long term (current) use of oral hypoglycemic drugs; Z80.1 Family history of malignant neoplasm of trachea, bronchus and lung; Z80.0 Family history of malignant neoplasm of digestive organs; I11.0 Hypertensive heart disease with heart failure

== ENCOUNTER 2017-03-08 15:52 | Emergency (ER) | payer OTHER ==
[~2017-03-08] VITALS: Ht 160 cm; Wt 112.3 kg
[~2017-03-08 15:52] MED LIST changes: -ASPI325T45 PO; +ASPI81TA28 PO; -DXY100 PO; +MONT1TAB3 PO; -SNG10 PO
[2017-03-08 15:59] VITALS: TEMP 36.4; Ht 160 cm; Wt 112.3 kg
[2017-03-08] MEDS ORDERED: OXYMETAZOLINE HCL 0.05% NA SPR 15 ML BTL ONE (16:06)
--- NOTE | 2017-03-08 16:23 | EMERGENCY ROOM VISIT NOTE ---
History First contact with patient: 16:02 Chief Complaint: NOSE BLEED (MINOR) Stated Complaint: NOSE BLEED History of Present Illness The patient is a 61 year old female who presents to the Emergency Room with complaints of a nosebleed that started at 1 PM this afternoon. It started coming from both nostrils. The left nostril has persisted. Patient takes a baby aspirin daily. She denies any other blood thinners. She denies any history of hypertension. She denies any difficulty breathing. She has asthma, but this has been fairly well-controlled. The patient has tried applying pressure without success of hemostasis. She denies any dizziness, lightheadedness or chest pain. Review of Systems 6 system review negative. Please see pertinent positives in the history of present illness section. Past Medical/Surgical History Medical Problems: (1) Acute respiratory failure (2) Anemia (3) Asthma (4) Asthma, Unspecified (5) Carpal tunnel syndrome (6) COPD (chronic obstructive pulmonary disease) (7) COPD exacerbation (8) Depression (9) Diabetes mellitus, type 2 (10) Esophageal Reflux (11) GERD (gastroesophageal reflux disease) (12) Hiatal hernia (13) History of cervical cancer (14) Hyperlipidemia (15) Hypertension (16) Hypertension (17) Intervertebral disc disorder (18) Nocturnal hypoxia (19) Obstructive Chronic Bronchitis With Acute Bronchitis (20) Osteoarthritis (21) Reflux esophagitis (22) Restless leg syndrome (23) Restless Legs Syndrome (24) Rheumatoid Arthritis (25) Tobacco Use Disorder Surgical Problems: (1) H/O colonoscopy (2) History of esophagogastroduodenoscopy (EGD) Family History Diabetes mellitus FH: heart disease FH: lung disease FHx: cancer Hypertension Social History Smoking Status: Former Smoker Alcohol Use: none Drug Use: none Marital Status: single Housing Status: lives alone Occupation Status: disabled Current/Historical Medications Scheduled Amitriptyline HCl (Amitriptyline HCl), 10 MG PO HS Amlodipine Besylate (Amlodipine Besylate), 5 MG PO DAILY Aspirin (Aspirin Ec), 81 MG PO DAILY Atorvastatin (Lipitor), 10 MG PO QAM Cyanocobalamin (Vitamin B12), 1,000 MCG PO DAILY Ferrous Sulfate (Kp Ferrous Sulfate), 1 TAB PO WM Fluticasone Propionate (Fluticasone Propionate), 2 SPRAYS LIDYA BID Furosemide (Lasix), 20 MG PO QAM Gabapentin (Neurontin), 100 MG PO TID Glimepiride (Glimepiride), 0.5 TAB PO DAILY Home O2 Therapy (Oxygen), 3 LITERS NA UD Ipratropium-Albuterol (Combivent Respimat), 1 PUFF INH QID Magnesium Oxide (Mag-Ox), 400 MG PO DAILY Metformin Hcl (Glucophage), 1,000 MG PO BID Montelukast Sodium (Singulair), 10 MG PO DAILY Mupirocin Calcium (Bactroban Nasal), 1 APPLN LIDYA BID Oxybutynin Chloride (Ditropan Xl), 5 MG PO DAILY Pantoprazole Sodium (Protonix), 40 MG PO QAM Potassium Chloride (Potassium Chloride Er), 10 MEQ PO DAILY Pramipexole Dihydrochloride (Mirapex), 0.5 MG PO TID Prednisone Tab (Prednisone), 10 MG PO UD Ranitidine Hcl (Zantac), 300 MG PO HS [Utibron], 1 CAP INH BID Scheduled PRN Albuterol Hfa (Ventolin Hfa), 2 PUFFS INH Q4H PRN for Wheezing Benzonatate (Tessalon Perles), 100-200 MG PO TID PRN for Cough Cyclobenzaprine Hcl (Flexeril), 10 MG PO BID PRN for Muscle Spasm Diclofenac Sodium (Topical) (Voltaren 1% Top Gel), for Documentation Hydrocodone/Acetaminophen 5MG/325MG ([place] 5MG/325MG), 1 TABLET PO Q8 PRN for Moderate Pain Ipratropium-Albuterol (Duoneb), 1 VIAL NEB Q4H PRN for SOB/Wheezing Physical Exam Vital Signs Date Time Temp Pulse Resp B/P (MAP) Pulse Ox O2 Delivery O2 Flow Rate FiO2 03/08/17 17:14 107 20 104/81 98 Room Air 03/08/17 16:16 110 03/08/17 15:59 36.4 113 20 158/101 99 Room Air Physical Exam GENERAL: 61-year-old female, in no acute distress, nondiaphoretic, well- developed well-nourished. SKIN: The skin was without rashes, erythema, edema, or bruising. HEAD: Normocephalic atraumatic. NOSE: Patent, right anterior septum is friable. No active bleeding. Left anterior septum is also friable. There is a blood clot in the posterior aspect of the turbinate.. MOUTH: Mucous membranes moist. No blood in the oropharynx. MUSCULOSKELETAL: Strength 5/5 throughout. NEURO: Patient was alert and oriented to person place and time. Normal sensation to touch. No focal neurological deficits. Medical Decision & Procedures Laboratory Results ED Course The patient was seen and examined Afrin protocol was initiated. She blew her nose, Afrin was applied, followed by a nasal clip. She was observed for 30 minutes. Upon reassessment, the patient had no bleeding. She was comfortable being discharged home. Discharge instructions were reviewed, and she was discharged in good condition Medical Decision Differential diagnosis: Anterior versus posterior epistaxis, hypertension, coagulopathy, anemia This patient is a 61-year-old female presents to the emergency department with anterior epistaxis. On exam, she did have 2 areas of friability on the septum. The bleeding was well controlled with Afrin and a nasal clip. She was given instructions for a humidifier, Bactroban and further bleeding. She'll follow- up with her primary care physician for her elevated blood pressure. She agrees to return to the emergency department with any uncontrolled bleeding or concerning symptoms This chart was completed in part utilizing [employer] Voice Recognition software. Attempts were made to minimize the grammatical errors, random word insertions, pronoun errors and incomplete sentences. Any formal questions or concerns about the content, text or information contained within the body of this dictation should be directly addressed to the provider for clarification. Medication Reconcilliation Current Medication List: was personally reviewed by me Blood Pressure Screening Patient's blood pressure: Normal blood pressure Impression Primary Impression: Anterior epistaxis Departure Information Dispostion Home / Self-Care Condition GOOD Prescriptions Mupirocin Calcium (BACTROBAN NASAL) 2 % Oin 1 APPLN LIDYA BID for 5 Days, #1 TUBE Prov: Tasha Mccollum PA-C 03/08/17 Referrals Martina Jay M.D. (PCP) Patient Instructions ED Epistaxis , [facility] Additional Instructions You were evaluated in the emergency department for a nosebleed. This is likely due to the dry weather. If there is further bleeding, please blow all of the clots out of your nose, immediately apply 2 sprays of Afrin to each nostril and apply the nasal clip for 30 minutes. Do not move the clip at this time. If this does not control the bleeding, please return to the emergency department. To prevent further bleeding, please run a humidifier in your house. Please also use Bactroban ointment one application to each nostril twice daily for 7 days. Please follow-up with her primary care physician Do not hesitate to return to the emergency department with any new or concerning symptoms.
[2017-03-08 17:14] VITALS: BP 104/81; PULSE 107; O2SAT 98
[2017-03-08] MEDS ORDERED: MUPIOIN4 NAE (17:26)
--- NOTE | 2017-03-09 10:29 | Pharmacy Progress Note ---
ED Pharmacist Progress Note Date of Service: Mar 09, 2017. Amador Cochran, called from [facility] stating the Bactroban Nasal Oint Rx is no longer available, he was requesting authorization to substitute the topical ointment in the same dose and directions. Reviewed case with ED providers, and authorized this substitution as this is the current practice for inpatients at [facility] as well.
== END 2017-03-08 17:39 | disposition home or self-care (01) ==
LOC: EDBD 15:52 → C.EDB 15:53
DX: R04.0 Epistaxis (principal)

== ENCOUNTER 2017-03-13 22:29 | Emergency (ER) | payer OTHER ==
[~2017-03-13] VITALS: Ht 160 cm; Wt 105.0 kg
[~2017-03-13 22:29] MED LIST changes: +MUPIOIN4 NAE
[2017-03-13 22:40] VITALS: TEMP 37.2; Ht 160 cm; Wt 105.0 kg
[2017-03-13] MEDS ORDERED: MAGNESIUM SULFATE 1GM / D5W 1 GM BAG IV STA (22:40)
[2017-03-13] MEDS ORDERED: METHYLPREDNISOLONE 125 MG VIAL IV STA (22:40)
[2017-03-13] MEDS ORDERED: ALBUT/IPRATROP 3MG/0.5MG NEB 3 ML VIAL INH ONE (22:45)
[2017-03-13] MEDS ORDERED: PRED10TA PO (22:56)
--- NOTE | 2017-03-13 23:27 | EMERGENCY ROOM VISIT NOTE ---
History Report prepared by Hiral: Theresa Grady Under the Supervision of: Dr. Fabian Morse M.D. First contact with patient: 22:35 Stated Complaint: ASTHMA ATTACK History of Present Illness The patient is a 61 year old female who presents to the Emergency Room with complaints of resolved SOB starting STOCK DIGGER. The patient presents to the ED by EMS. The patient has a history of asthma. She was at [facility] today when her SOB started. It was merchandising lead the room and she was diaphoretic. She started feeling like she was having an asthma attack. She had a nebulizer treatment STOCK DIGGER which relieved her SOB. She currently feels back at baseline. She denies any fever, chills, diarrhea, productive cough, or abdominal pain. She is on Lasix for CHF. She reports weight gain. She denies any increased swelling. She has a history of COPD and normally wears 2-3 L of oxygen. She is a former smoker. Source of History: patient Onset: STOCK DIGGER Position: other (global) Quality: other (SOB) Timing: resolved Modifying Factors (Relieving): other (nebulizer) Associated Symptoms: + diaphoresis, No fevers, No chills, No abdominal pain , No diarrhea Review of Systems See HPI for pertinent positives and negatives. A total of ten systems were reviewed and were otherwise negative. Past Medical & Surgical Medical Problems: (1) Acute respiratory failure (2) Anemia (3) Asthma (4) Asthma, Unspecified (5) Carpal tunnel syndrome (6) COPD (chronic obstructive pulmonary disease) (7) COPD exacerbation (8) Depression (9) Diabetes mellitus, type 2 (10) Esophageal Reflux (11) GERD (gastroesophageal reflux disease) (12) Hiatal hernia (13) History of cervical cancer (14) Hyperlipidemia (15) Hypertension (16) Hypertension (17) Intervertebral disc disorder (18) Nocturnal hypoxia (19) Obstructive Chronic Bronchitis With Acute Bronchitis (20) Osteoarthritis (21) Reflux esophagitis (22) Restless leg syndrome (23) Restless Legs Syndrome (24) Rheumatoid Arthritis (25) Tobacco Use Disorder Surgical Problems: (1) H/O colonoscopy (2) History of esophagogastroduodenoscopy (EGD) Family History Diabetes mellitus FH: heart disease FH: lung disease FHx: cancer Hypertension Social History Smoking Status: Former Smoker Alcohol Use: none Drug Use: none Marital Status: single Housing Status: lives alone Occupation Status: disabled Current/Historical Medications Scheduled Amitriptyline HCl (Amitriptyline HCl), 10 MG PO HS Amlodipine Besylate (Amlodipine Besylate), 5 MG PO DAILY Aspirin (Aspirin Ec), 81 MG PO DAILY Atorvastatin (Lipitor), 10 MG PO QAM Azithromycin (Zithromax), 250 MG PO DAILY Cyanocobalamin (Vitamin B12), 1,000 MCG PO DAILY Ferrous Sulfate (Kp Ferrous Sulfate), 1 TAB PO WM Fluticasone Propionate (Fluticasone Propionate), 2 SPRAYS LIDYA BID Furosemide (Lasix), 20 MG PO QAM Gabapentin (Neurontin), 100 MG PO TID Glimepiride (Glimepiride), 0.5 TAB PO DAILY Home O2 Therapy (Oxygen), 3 LITERS NA UD Ipratropium-Albuterol (Combivent Respimat), 1 PUFF INH QID Magnesium Oxide (Mag-Ox), 400 MG PO DAILY Metformin Hcl (Glucophage), 1,000 MG PO BID Montelukast Sodium (Singulair), 10 MG PO DAILY Oxybutynin Chloride (Ditropan Xl), 5 MG PO DAILY Pantoprazole Sodium (Protonix), 40 MG PO QAM Potassium Chloride (Potassium Chloride Er), 10 MEQ PO DAILY Pramipexole Dihydrochloride (Mirapex), 0.5 MG PO TID Prednisone (Prednisone), 10 MG PO DAILY Prednisone (Prednisone), 3 TAB PO DAILY Ranitidine Hcl (Zantac), 300 MG PO HS [Utibron], 1 CAP INH BID Scheduled PRN Albuterol Hfa (Ventolin Hfa), 2 PUFFS INH Q4H PRN for Wheezing Benzonatate (Tessalon Perles), 100-200 MG PO TID PRN for Cough Cyclobenzaprine Hcl (Flexeril), 10 MG PO BID PRN for Muscle Spasm Diclofenac Sodium (Topical) (Voltaren 1% Top Gel), for Documentation Hydrocodone/Acetaminophen 5MG/325MG (Ong 5MG/325MG), 1 TABLET PO Q8 PRN for Moderate Pain Ipratropium-Albuterol (Duoneb), 1 VIAL NEB Q4H PRN for SOB/Wheezing Allergies Coded Allergies: NO KNOWN DRUG ALLERGIES (Verified Allergy, Unknown, n/a, 03/13/17) Uncoded Allergies: ENVIORNMENTAL (Allergy, Unknown, sneeze, cough, 03/08/17) weeds, grass, pollen Physical Exam Vital Signs Date Time Temp Pulse Resp B/P (MAP) Pulse Ox O2 Delivery O2 Flow Rate FiO2 03/14/17 00:45 100 20 150/84 96 03/13/17 23:57 112 20 157/88 100 Nebulizer 03/13/17 23:45 117 17 99 Nasal Cannula 3.0 03/13/17 23:37 96 Nasal Cannula 4.0 03/13/17 23:25 115 03/13/17 22:49 98 Nasal Cannula 4.0 03/13/17 22:40 98 Nasal Cannula 4.0 03/13/17 22:40 37.2 122 26 142/110 98 Nasal Cannula 4.0 Physical Exam GENERAL: Awake, alert, in no distress HENT: Normocephalic, atraumatic. Dry mucous membranes. EYES: Normal conjunctiva. Sclera non-icteric. NECK: Supple. No nuchal rigidity. FROM. No JVD. RESPIRATORY: Mild dyspnea which patient reports is baseline. Scattered wheezes and rhonchi. Diminished at the bases. CARDIAC: Regular rate, normal rhythm. Extremities warm and well perfused. Pulses equal. ABDOMEN: Soft, non-distended. No tenderness to palpation. No rebound or guarding. No masses. RECTAL: Deferred. MUSCULOSKELETAL: Chest examination reveals no tenderness. The back is symmetrical on inspection without obvious abnormality. There is no CVA tenderness to palpation. No joint edema. LOWER EXTREMITIES: Calves are equal size bilaterally and non-tender. Scant edema at baseline per patient. No discoloration. NEURO: Normal sensorium. No sensory or motor deficits noted. SKIN: No rash or jaundice noted. Medical Decision & Procedures ER Provider Diagnostic Interpretation: X-ray: Per my interpretation, radiologist review. Chest: Emphysematous changes. No coarse infiltrate. Similar to prior. Laboratory Results 03/13/17 23:21 Red Blood Count 3.58, Mean Corpuscular Volume 89.1, Mean Corpuscular Hemoglobin 26.5, Mean Corpuscular Hemoglobin Concent 29.8, Mean Platelet Volume 9.2, Neutrophils (%) (Auto) 84.4, Lymphocytes (%) (Auto) 12.4, Monocytes (%) (Auto) 2.7, Eosinophils (%) (Auto) 0.0, Basophils (%) (Auto) 0.1, Neutrophils # (Auto) 5.70, Lymphocytes # (Auto) 0.84, Monocytes # (Auto) 0.18, Eosinophils # (Auto) 0.00, Basophils # (Auto) 0.01 03/13/17 23:21 Test 03/13/17 23:21 White Blood Count 6.76 K/uL (4.8-10.8) Red Blood Count 3.58 M/uL (4.2-5.4) Hemoglobin 9.5 g/dL (12.0-16.0) Hematocrit 31.9 % (37-47) Mean Corpuscular Volume 89.1 fL (80-100) Mean Corpuscular Hemoglobin 26.5 pg (25-34) Mean Corpuscular Hemoglobin Concent 29.8 g/dl (32-36) Platelet Count 394 K/uL (130-400) Mean Platelet Volume 9.2 fL (7.4-10.4) Neutrophils (%) (Auto) 84.4 % Lymphocytes (%) (Auto) 12.4 % Monocytes (%) (Auto) 2.7 % Eosinophils (%) (Auto) 0.0 % Basophils (%) (Auto) 0.1 % Neutrophils # (Auto) 5.70 K/uL (1.4-6.5) Lymphocytes # (Auto) 0.84 K/uL (1.2-3.4) Monocytes # (Auto) 0.18 K/uL (0.11-0.59) Eosinophils # (Auto) 0.00 K/uL (0-0.5) Basophils # (Auto) 0.01 K/uL (0-0.2) RDW Standard Deviation 49.6 fL (36.4-46.3) RDW Coefficient of Variation 15.1 % (11.5-14.5) Immature Granulocyte % (Auto) 0.4 % Immature Granulocyte # (Auto) 0.03 K/uL (0.00-0.02) Venous Blood pH 7.35 (7.36-7.41) Venous Blood Partial Pressure CO2 46 mmHg (38.0-50.0) Venous Blood Partial Pressure O2 61 mmHg Venous Blood HCO3 25 mmol/L Venous Blood Oxygen Saturation 87.8 % Venous Blood Base Excess -0.9 mEq/L Anion Gap 11.0 mmol/L (3-11) Est Creatinine Clear Calc Drug Dose 68.3 ml/min Estimated GFR () 70.8 Estimated GFR (Non- 61.1 BUN/Creatinine Ratio 13.7 (10-20) Calcium Level 9.4 mg/dl (8.5-10.1) Total Bilirubin 0.2 mg/dl (0.2-1) Direct Bilirubin < 0.1 mg/dl (0-0.2) Aspartate Amino Transf (AST/SGOT) 18 U/L (15-37) Alanine Aminotransferase (ALT/SGPT) 30 U/L (12-78) Alkaline Phosphatase 90 U/L (45-117) Troponin I < 0.015 ng/ml (0-0.045) Pro-B-Type Natriuretic Peptide 11 pg/ml (0-900) Total Protein 7.0 gm/dl (6.4-8.2) Albumin 3.5 gm/dl (3.4-5.0) Lipase 83 U/L (73-393) Laboratory results reviewed by me Medications Administered Medications (Trade) Dose Ordered Sig/Allison Route Start Time Stop Time Status Last Admin Dose Admin Albuterol/ Ipratropium (Duoneb) 12 ml ONE ONCE INH 03/13/17 22:45 03/13/17 22:46 DC 03/13/17 22:45 12 ML Methylprednisolone Sodium Succinate (Solu-Medrol IV) 125 mg NOW STAT IV 03/13/17 22:40 03/13/17 22:43 DC 03/13/17 23:54 125 MG Magnesium Sulfate (Magnesium Sulfate) 2 gm NOW STAT IV 03/13/17 22:40 03/13/17 22:43 DC 03/13/17 23:55 2 GM Azithromycin (Zithromax Tab) 500 mg NOW ONCE PO 03/14/17 00:30 03/14/17 00:31 DC 03/14/17 00:38 500 MG ECG Indication: SOB/dyspnea Rate (beats per minute): 117 Rhythm: sinus tachycardia Findings: no acute ischemic change, other (normal axis) ED Course 2235: The patient was evaluated in room C9. A complete history and physical exam was performed. Medical Decision I reviewed the patient's past medical history, medications, and the nursing notes as described above. Differential diagnosis: Etiologies such as infections, reactive airway disease, pneumonia, pneumothorax , COPD, CHF, cardiac ischemia, pulmonary embolism, musculoskeletal, gastrointestinal, as well as others were entertained. The patient is a 59-year-old woman with a past medical history of COPD/asthma on 3 L home O2, diastolic CHF on home Lasix presents emergency Department with acute worsening shortness of breath when she was at [facility] per hpi. Otherwise, the patient denies any recent illness over the past preceding several days and says that she feels her COPD was exacerbated by the warmth in the room. On arrival the patient reports that her breathing back at her baseline after receiving neb by EMS. EKG unremarkable. Chest x-ray with emphysematous changes that are similar to prior with no gross infiltrates. Labs otherwise unremarkable including WBC, CO2, troponin, BNP wnl. She reassessed and continuing to feel that her baseline with continuous neb, steroids and magnesium. Continues to feel at baseline and OK to go home. Has pcp appointment already for . Findings and plan for follow-up reviewed with patient. Patient agreeable and d/c'd per discharge instructions. Medication Reconcilliation Current Medication List: was personally reviewed by me Blood Pressure Screening Patient's blood pressure: Elevated blood pressure Blood pressure disposition: Elevated BP felt to be situational Impression Primary Impression: COPD exacerbation Scribe Attestation The scribe's documentation has been prepared under my direction and personally reviewed by me in its entirety. I confirm that the note above accurately reflects all work, treatment, procedures, and medical decision making performed by me. Departure Information Dispostion Home / Self-Care Prescriptions Azithromycin (Zithromax) 250 Mg Tab 250 MG PO DAILY, #4 TAB Prov: Fabian Morse M.D. 03/14/17 Prednisone (Prednisone) 20 Mg Tab 3 TAB PO DAILY for 4 Days, #12 TAB FOR 4 DAYS Prov: Fabian Morse M.D. 03/14/17 Referrals Martina Jay M.D. (PCP) Patient Instructions ED COPD Flare, My [facility] Additional Instructions Please follow up with your primary care physician on for re-evaluation. You likely have an exacerbation of your COPD. Otherwise, your exam, EKG, chest xray, and lab results did not show signs of an emergent condition at this time. Prednisone and Azithromycin as directed. Use your nebulizer or inhaler every 4 hours for the next 48 hours and then as needed thereafter. Return to the emergency department for worsening symptoms as described in the accompanying instructions.
[2017-03-13 23:31] LABS: BASO % 0.1 %; BASO ABS # 0.01 K/uL (0-0.2); HEMATOCRIT 31.9 % (37-47); HEMOGLOBIN 9.5 g/dL (12.0-16.0); IG# 0.03 K/uL (0.00-0.02); LYMPH % 12.4 %; LYMPH ABS # 0.84 K/uL (1.2-3.4); MEAN CELL VOLUME 89.1 fL (80-100); MEAN CORPUSCULAR HEMOGLOBIN 26.5 pg (25-34); MEAN CORPUSCULAR HGB CONC 29.8 g/dl (32-36); MEAN PLATELET VOLUME 9.2 fL (7.4-10.4); MONO % 2.7 %; MONO ABS # 0.18 K/uL (0.11-0.59); NEUT % 84.4 %; PLATELET COUNT 394 K/uL (130-400); RED CELL DISTRIBUTION WIDTH CV 15.1 % (11.5-14.5); RED CELL DISTRIBUTION WIDTH SD 49.6 fL (36.4-46.3); WHITE BLOOD COUNT 6.76 K/uL (4.8-10.8)
[2017-03-13 23:37] VITALS: O2SAT 96
[2017-03-13 23:45] VITALS: PULSE 117; O2SAT 99
[2017-03-14 00:01] LABS: ALBUMIN 3.5 gm/dl (3.4-5.0); ALT/SGPT 30 U/L (12-78); BLOOD UREA NITROGEN 14 mg/dl (7-18); CALCIUM 9.4 mg/dl (8.5-10.1); CARBON DIOXIDE 24 mmol/L (21-32); CREATININE 0.99 mg/dl (0.60-1.20); GLUCOSE 262 mg/dl (70-99); LIPASE 83 U/L (73-393); POTASSIUM 4.3 mmol/L (3.5-5.1); SODIUM 140 mmol/L (136-145)
[2017-03-14 00:06] LABS: ALKALINE PHOSPHATASE 90 U/L (45-117); AST/SGOT 18 U/L (15-37)
[2017-03-14] MEDS ORDERED: AZIT250T PO (00:23)
[2017-03-14] MEDS ORDERED: PRED20TA PO (00:23)
[2017-03-14] MEDS ORDERED: AZITHROMYCIN 250 MG TAB PO ONE (00:30)
[2017-03-14 00:45] VITALS: BP 150/84; PULSE 100; O2SAT 96
--- NOTE | 2017-03-14 06:59 | DIAGNOSTIC IMAGING REPORT ---
CHEST ONE VIEW PORTABLE HISTORY: 61 years-old Female CHEST PAIN acute atypical chest pain COMPARISON: Portable chest radiograph 01/10/2017 and 11/28/2016, chest radiographs 11/08/2016 TECHNIQUE: Portable AP view of the chest FINDINGS: Cardiac silhouette is within normal limits. The lungs appear hyperinflated and hyperlucent compatible with emphysema. No pneumothorax or pleural effusion. Hazy subsegmental bibasilar opacities are noted. The bones appear grossly intact. Degenerative changes are seen within the shoulders and spine. IMPRESSION: 1. Subsegmental bibasilar opacities suggest atelectasis. 2. Emphysema. The above report was generated using voice recognition software. It may contain grammatical, syntax or spelling errors. Electronically signed by: Sergey Brito M.D. 03/14/2017 6:57 AM Dictated Date/Time: 03/14/2017 6:55 AM
== END 2017-03-14 00:51 | disposition home or self-care (01) ==
LOC: EDBD 22:29 → C.EDC 22:33
DX: J44.1 Chronic obstructive pulmonary disease with (acute) exacerbation (principal); R00.0 Tachycardia, unspecified; I10 Essential (primary) hypertension; E78.5 Hyperlipidemia, unspecified; E11.9 Type 2 diabetes mellitus without complications; K21.0 Gastro-esophageal reflux disease with esophagitis; J44.9 Chronic obstructive pulmonary disease, unspecified; J45.909 Unspecified asthma, uncomplicated; M19.90 Unspecified osteoarthritis, unspecified site; M06.9 Rheumatoid arthritis, unspecified; F32.9 Major depressive disorder, single episode, unspecified; D64.9 Anemia, unspecified; Z85.41 Personal history of malignant neoplasm of cervix uteri; Z98.890 Other specified postprocedural states; Z87.891 Personal history of nicotine dependence; Z79.82 Long term (current) use of aspirin; Z79.899 Other long term (current) drug therapy; Z79.84 Long term (current) use of oral hypoglycemic drugs; Z83.3 Family history of diabetes mellitus; Z82.49 Family history of ischemic heart disease and other diseases of the circulatory system; Z80.9 Family history of malignant neoplasm, unspecified

== ENCOUNTER 2017-03-18 18:44 | Inpatient (IN) | payer OTHER ==
[~2017-03-18] VITALS: Ht 160 cm; Wt 109.2 kg
[~2017-03-18 18:44] MED LIST changes: +AZIT250T PO; -MUPIOIN4 NAE; +PRED20TA PO
[2017-03-18] MEDS ORDERED: METHYLPREDNISOLONE 125 MG VIAL IV STA (19:16)
[2017-03-18] MEDS ORDERED: ALBUT/IPRATROP 3MG/0.5MG NEB 3 ML VIAL INH STA (19:16)
[2017-03-18] MEDS ORDERED: OXYCODONE HCL IR 5 MG TAB (IMMEDIATE RELEASE) PO STA (19:46)
[2017-03-18 20:00] LABS: BASO % 0.1 %; BASO ABS # 0.01 K/uL (0-0.2); EOS % 0.1 %; EOS ABS # 0.01 K/uL (0-0.5); HEMATOCRIT 30.5 % (37-47); HEMOGLOBIN 9.4 g/dL (12.0-16.0); IG# 0.03 K/uL (0.00-0.02); LYMPH % 3.8 %; LYMPH ABS # 0.34 K/uL (1.2-3.4); MEAN CELL VOLUME 88.2 fL (80-100); MEAN CORPUSCULAR HEMOGLOBIN 27.2 pg (25-34); MEAN CORPUSCULAR HGB CONC 30.8 g/dl (32-36); MEAN PLATELET VOLUME 8.8 fL (7.4-10.4); MONO % 5.4 %; MONO ABS # 0.48 K/uL (0.11-0.59); NEUT % 90.3 %; NEUT ABS # 7.99 K/uL (1.4-6.5); PLATELET COUNT 366 K/uL (130-400); RED CELL DISTRIBUTION WIDTH CV 15.4 % (11.5-14.5); RED CELL DISTRIBUTION WIDTH SD 49.2 fL (36.4-46.3); WHITE BLOOD COUNT 8.86 K/uL (4.8-10.8)
[2017-03-18] MEDS ORDERED: SODIUM CHLORIDE 0.9% 500ML 500 ML IV STA (20:09)
[2017-03-18] MEDS ORDERED: CYCLOBENZAPRINE HCL 10 MG TAB PO STA (20:09)
[2017-03-18 20:10] LABS: PTT PATIENT 23.9 SECONDS (21.0-31.0)
--- NOTE | 2017-03-18 20:14 | DIAGNOSTIC IMAGING REPORT ---
SINGLE VIEW CHEST CLINICAL HISTORY: Dyspnea. FINDINGS: An AP, portable, upright chest radiograph is compared to study dated 03/13/2017 and correlated with chest CT dated 02/26/2016. The examination is degraded by portable technique, large body habitus, and patient rotation. The cardiomediastinal heart is top normal for projection and there is atherosclerotic calcification of the thoracic aorta. Emphysema and chronic interstitial thickening are similar to previous. There is mild bibasilar atelectasis. No airspace consolidation, large pleural effusion, or pneumothorax is seen. The skeletal structures are osteopenic. The bony thorax is grossly intact. IMPRESSION: Emphysema with no acute cardiopulmonary abnormality. Electronically signed by: Navin Fletcher M.D. 03/18/2017 8:13 PM Dictated Date/Time: 03/18/2017 8:12 PM
[2017-03-18 20:15] LABS: INFLUENZA B ANTIGEN Neg for Influ B (NEG)
[2017-03-18] MEDS ORDERED: ALBUT/IPRATROP 3MG/0.5MG NEB 3 ML VIAL INH ONE (20:15)
[2017-03-18 20:20] LABS: ALBUMIN 3.3 gm/dl (3.4-5.0); ALT/SGPT 33 U/L (12-78); AST/SGOT 19 U/L (15-37); BLOOD UREA NITROGEN 15 mg/dl (7-18); CALCIUM 9.2 mg/dl (8.5-10.1); CARBON DIOXIDE 29 mmol/L (21-32); CREATININE 1.05 mg/dl (0.60-1.20); GLUCOSE 175 mg/dl (70-99); SODIUM 137 mmol/L (136-145)
[2017-03-18 20:25] LABS: ALKALINE PHOSPHATASE 81 U/L (45-117); TOTAL PROTEIN 6.7 gm/dl (6.4-8.2)
--- NOTE | 2017-03-18 20:44 | EMERGENCY ROOM VISIT NOTE ---
History Report prepared by Hiral: Travon Lo Under the Supervision of: Dr. Van Domingo D.O. First contact with patient: 19:05 Chief Complaint: RESPIRATORY PROBLEMS Stated Complaint: BREATHING PROBLEMS Nursing Triage Summary: pt daughter reports pt here monday tx with steroids and copd flare up today started with diarrhea , body aches pt states " I feel like shit" History of Present Illness The patient is a 61 year old female who presents to the Emergency Room with complaints of persistent generalized illness beginning this week. Her symptoms include diarrhea, body aches, cough, fevers, and shortness of breath. Her cough is occasionally productive. The patient's fever peaked at 101 today. She has a history of COPD and is on supplemental oxygen at home. She was seen in the ED earlier this week for similar symptoms and was discharged on steroids and a Zpak. The patient denies leg swelling. Source of History: patient Onset: This week Position: other (generalized) Quality: other (illness) Timing: other (persistent) Associated Symptoms: + fevers (101 degrees), + cough, + SOB, + diarrhea Note: Additional symptoms: body aches. The patient denies leg swelling Review of Systems See HPI for pertinent positives & negatives. A total of 10 systems reviewed and were otherwise negative. Past Medical & Surgical Medical Problems: (1) Acute respiratory failure (2) Anemia (3) Asthma (4) Asthma, Unspecified (5) Carpal tunnel syndrome (6) COPD (chronic obstructive pulmonary disease) (7) COPD exacerbation (8) Depression (9) Diabetes mellitus, type 2 (10) Esophageal Reflux (11) GERD (gastroesophageal reflux disease) (12) Hiatal hernia (13) History of cervical cancer (14) Hyperlipidemia (15) Hypertension (16) Hypertension (17) Intervertebral disc disorder (18) Nocturnal hypoxia (19) Obstructive Chronic Bronchitis With Acute Bronchitis (20) Osteoarthritis (21) Reflux esophagitis (22) Restless leg syndrome (23) Restless Legs Syndrome (24) Rheumatoid Arthritis (25) Tobacco Use Disorder Surgical Problems: (1) H/O colonoscopy (2) History of esophagogastroduodenoscopy (EGD) Family History Diabetes mellitus FH: heart disease FH: lung disease FHx: cancer Hypertension Social History Smoking Status: Never Smoker Alcohol Use: none Drug Use: none Marital Status: single Housing Status: lives alone Occupation Status: disabled Current/Historical Medications Scheduled Amitriptyline HCl (Amitriptyline HCl), 10 MG PO HS Amlodipine Besylate (Amlodipine Besylate), 5 MG PO DAILY Aspirin (Aspirin Ec), 81 MG PO DAILY Atorvastatin (Lipitor), 10 MG PO QAM Azithromycin (Zithromax), 250 MG PO DAILY Cyanocobalamin (Vitamin B12), 1,000 MCG PO DAILY Ferrous Sulfate (Kp Ferrous Sulfate), 1 TAB PO WM Fluticasone Propionate (Fluticasone Propionate), 2 SPRAYS LIDYA BID Furosemide (Lasix), 20 MG PO QAM Gabapentin (Neurontin), 100 MG PO TID Glimepiride (Glimepiride), 0.5 TAB PO DAILY Home O2 Therapy (Oxygen), 3 LITERS NA UD Ipratropium-Albuterol (Combivent Respimat), 1 PUFF INH QID Magnesium Oxide (Mag-Ox), 400 MG PO DAILY Metformin Hcl (Glucophage), 1,000 MG PO BID Montelukast Sodium (Singulair), 10 MG PO DAILY Oxybutynin Chloride (Ditropan Xl), 5 MG PO DAILY Pantoprazole Sodium (Protonix), 40 MG PO QAM Potassium Chloride (Potassium Chloride Er), 10 MEQ PO DAILY Pramipexole Dihydrochloride (Mirapex), 0.5 MG PO TID Prednisone (Prednisone), 10 MG PO DAILY Prednisone (Prednisone), 3 TAB PO DAILY Ranitidine Hcl (Zantac), 300 MG PO HS [Utibron], 1 CAP INH BID Scheduled PRN Albuterol Hfa (Ventolin Hfa), 2 PUFFS INH Q4H PRN for Wheezing Benzonatate (Tessalon Perles), 100-200 MG PO TID PRN for Cough Cyclobenzaprine Hcl (Flexeril), 10 MG PO BID PRN for Muscle Spasm Diclofenac Sodium (Topical) (Voltaren 1% Top Gel), for Documentation Hydrocodone/Acetaminophen 5MG/325MG ([place] 5MG/325MG), 1 TABLET PO Q8 PRN for Moderate Pain Ipratropium-Albuterol (Duoneb), 1 VIAL NEB Q4H PRN for SOB/Wheezing Allergies Coded Allergies: NO KNOWN DRUG ALLERGIES (Verified Allergy, Unknown, n/a, 03/13/17) POLLEN (Verified Allergy, Unknown, SNEEZE,COUGH-WEEDS,GRASS,POLLEN, ) Physical Exam Vital Signs Date Time Temp Pulse Resp B/P (MAP) Pulse Ox O2 Delivery O2 Flow Rate FiO2 03/18/17 19:24 97 Nasal Cannula 3.0 03/18/17 19:24 97 Nasal Cannula 3.0 03/18/17 19:01 37.5 123 20 134/67 96 Nasal Cannula 3.0 Physical Exam GENERAL: Patient is awake, alert, and mildly anxious appearing. EYES: The conjunctivae are clear. The pupils are round and reactive. EARS, NOSE, MOUTH AND THROAT: The nose is without any evidence of any deformity. Mucous membranes are moist tongue is midline NECK: The neck is nontender and supple. RESPIRATORY: Tachycardic but regular. No definite murmur to auscultation. CARDIOVASCULAR: Diminished throughout with expiratory wheezing in all pool. Significant tachypnea and conversational dyspnea noted. GASTROINTESTINAL: The abdomen is soft. Bowel sounds are present in all quadrants. Abdomen is nontender. MUSCULOSKELETAL/EXTREMITIES: There is no evidence of gross deformity full range of motion is noted in the hips and shoulders SKIN: There is no obvious evidence of any rash. There are no petechiae, pallor or cyanosis noted. NEUROLOGIC: Patient is awake alert and oriented x3. Medical Decision & Procedures ER Provider Diagnostic Interpretation: Radiology results as stated below per my review and radiologist interpretation: SINGLE VIEW CHEST FINDINGS: An AP, portable, upright chest radiograph is compared to study dated 03/13/2017 and correlated with chest CT dated 02/26/2016. The examination is degraded by portable technique, large body habitus, and patient rotation. The cardiomediastinal heart is top normal for projection and there is atherosclerotic calcification of the thoracic aorta. Emphysema and chronic interstitial thickening are similar to previous. There is mild bibasilar atelectasis. No airspace consolidation, large pleural effusion, or pneumothorax is seen. The skeletal structures are osteopenic. The bony thorax is grossly intact. IMPRESSION: Emphysema with no acute cardiopulmonary abnormality. Electronically signed by: Navin Fletcher M.D. 03/18/2017 8:13 PM Laboratory Results 03/18/17 19:45 Red Blood Count 3.46, Mean Corpuscular Volume 88.2, Mean Corpuscular Hemoglobin 27.2, Mean Corpuscular Hemoglobin Concent 30.8, Mean Platelet Volume 8.8, Neutrophils (%) (Auto) 90.3, Lymphocytes (%) (Auto) 3.8, Monocytes (%) (Auto) 5.4, Eosinophils (%) (Auto) 0.1, Basophils (%) (Auto) 0.1, Neutrophils # (Auto) 7.99, Lymphocytes # (Auto) 0.34, Monocytes # (Auto) 0.48, Eosinophils # (Auto) 0.01, Basophils # (Auto) 0.01 03/18/17 19:45 Test 03/18/17 19:32 03/18/17 19:45 03/18/17 20:49 Influenza Type A Antigen Neg for Influ A (NEG) Influenza Type B Antigen Neg for Influ B (NEG) White Blood Count 8.86 K/uL (4.8-10.8) Red Blood Count 3.46 M/uL (4.2-5.4) Hemoglobin 9.4 g/dL (12.0-16.0) Hematocrit 30.5 % (37-47) Mean Corpuscular Volume 88.2 fL (80-100) Mean Corpuscular Hemoglobin 27.2 pg (25-34) Mean Corpuscular Hemoglobin Concent 30.8 g/dl (32-36) Platelet Count 366 K/uL (130-400) Mean Platelet Volume 8.8 fL (7.4-10.4) Neutrophils (%) (Auto) 90.3 % Lymphocytes (%) (Auto) 3.8 % Monocytes (%) (Auto) 5.4 % Eosinophils (%) (Auto) 0.1 % Basophils (%) (Auto) 0.1 % Neutrophils # (Auto) 7.99 K/uL (1.4-6.5) Lymphocytes # (Auto) 0.34 K/uL (1.2-3.4) Monocytes # (Auto) 0.48 K/uL (0.11-0.59) Eosinophils # (Auto) 0.01 K/uL (0-0.5) Basophils # (Auto) 0.01 K/uL (0-0.2) RDW Standard Deviation 49.2 fL (36.4-46.3) RDW Coefficient of Variation 15.4 % (11.5-14.5) Immature Granulocyte % (Auto) 0.3 % Immature Granulocyte # (Auto) 0.03 K/uL (0.00-0.02) Prothrombin Time 10.0 SECONDS (9.0-12.0) Prothromb Time International Ratio 1.0 (0.9-1.1) Activated Partial Thromboplast Time 23.9 SECONDS (21.0-31.0) Partial Thromboplastin Ratio 0.9 Anion Gap 6.0 mmol/L (3-11) Est Creatinine Clear Calc Drug Dose 79.8 ml/min Estimated GFR () 65.9 Estimated GFR (Non- 56.9 BUN/Creatinine Ratio 14.6 (10-20) Calcium Level 9.2 mg/dl (8.5-10.1) Magnesium Level 1.9 mg/dl (1.8-2.4) Total Bilirubin 0.2 mg/dl (0.2-1) Aspartate Amino Transf (AST/SGOT) 19 U/L (15-37) Alanine Aminotransferase (ALT/SGPT) 33 U/L (12-78) Alkaline Phosphatase 81 U/L (45-117) Troponin I < 0.015 ng/ml (0-0.045) Total Protein 6.7 gm/dl (6.4-8.2) Albumin 3.3 gm/dl (3.4-5.0) Globulin 3.4 gm/dl (2.5-4.0) Albumin/Globulin Ratio 1.0 (0.9-2) Thyroid Stimulating Hormone (TSH) 0.370 uIu/ml (0.300-4.500) Laboratory results per my review. Medications Administered Medications (Trade) Dose Ordered Sig/Allison Route Start Time Stop Time Status Last Admin Dose Admin Albuterol/ Ipratropium (Duoneb) 3 ml NOW STAT INH 03/18/17 19:16 03/18/17 19:17 DC 03/18/17 19:29 3 ML Methylprednisolone Sodium Succinate (Solu-Medrol IV) 125 mg NOW STAT IV 03/18/17 19:16 03/18/17 19:17 DC 03/18/17 19:50 125 MG Oxycodone HCl (Roxicodone Immediate Rel Tab) 5 mg NOW STAT PO 03/18/17 19:46 03/18/17 19:48 DC 03/18/17 19:53 5 MG Sodium Chloride 500 ml @ 999 mls/hr Q31M STAT IV 03/18/17 20:09 03/18/17 20:39 DC 03/18/17 20:23 999 MLS/HR Albuterol/ Ipratropium (Duoneb) 12 ml ONE ONCE INH 03/18/17 20:15 03/18/17 20:16 DC 03/18/17 20:37 12 ML Cyclobenzaprine HCl (Flexeril Tab) 10 mg NOW STAT PO 03/18/17 20:09 03/18/17 20:10 DC 03/18/17 20:21 10 MG ECG Indication: SOB/dyspnea Rate (beats per minute): 117 Rhythm: sinus tachycardia Findings: T-wave inversion (Inferior), no acute ischemic change, no ectopy Comparison ECG Date: 03/13/2017 Change: Inferior changes are new. ED Course 1913: The patient was evaluated in room C9. A complete history and physical examination were performed. 1915: Ordered Solu-Medrol 125 mg IV, DuoNeb 3 mL INH. 1945: Ordered Roxicodone Immediate Rel Tab 5 mg PO. 2008: Ordered Flexeril Tab 10 mg PO, NSS 500 ml @ 999 mls/hr IV. 2011: I reassessed the patient. She is still coughing and is short of breath. 2014: Ordered DuoNeb 12 mL INH. 2034: Upon reevaluation, the patient is resting comfortably. I discussed results and treatment plan with her. She verbalizes agreement and understanding. [facility] The patient will be evaluated for further management and care. Medical Decision Differential diagnosis: Etiologies such as infections, reactive airway disease, pneumonia, pneumothorax , COPD, CHF, cardiac ischemia, pulmonary embolism, musculoskeletal, gastrointestinal, as well as others were entertained. Nursing notes reviewed. Additional history is obtained from the patient's family member. The patient is a 61-year-old female who has a history of COPD as well as bronchitis who presented to the emergency department for significant difficulty breathing. The patient was treated with bronchodilator therapy IV fluids and IV steroids. Her condition improved somewhat but she still had very significant bronchospasm and dyspnea. I discussed the patient's laboratory and radiographic studies with her. I also discussed his case with the on-call [facility]. They have agreed to evaluate the patient in the emergency department for further management and disposition. Medication Reconcilliation Current Medication List: was personally reviewed by me Blood Pressure Screening Patient's blood pressure: Elevated blood pressure Blood pressure disposition: Elevated BP felt to be situational Consults Time Called: 2029 Consulting Physician: Dr. Enrique Jennings Hospitalist Service Returned Call: 2034 I discussed the patient's case with Dr. Nunez. The patient will be evaluated for further management. Impression Primary Impression: COPD exacerbation Scribe Attestation The scribe's documentation has been prepared under my direction and personally reviewed by me in its entirety. I confirm that the note above accurately reflects all work, treatment, procedures, and medical decision making performed by me. Departure Information Dispostion Being Evaluated By Hospitalist Referrals Martina Jay M.D. (PCP) Patient Instructions My [facility]
[2017-03-18] MEDS ORDERED: INSULIN GLARGINE SOLOSTAR 100 UNITS/ML 3 ML PEN SC ONE (21:18)
[2017-03-18] MEDS ORDERED: GUAIFENESIN 600 MG TABCR PO ONE (21:22)
[2017-03-18] MEDS ORDERED: OPTIRAY 320 IV PRN (21:30)
[2017-03-18] MEDS ORDERED: DOXYCYCLINE HYCLATE 100 MG CAP PO ONE (22:01)
[2017-03-18] MEDS ORDERED: INSULIN ASPART 100 UNITS/ML 3 ML PEN SC ONE (22:03)
[2017-03-18] MEDS ORDERED: GABAPENTIN 100 MG CAP PO ONE (22:03)
--- NOTE | 2017-03-18 22:05 | DIAGNOSTIC IMAGING REPORT ---
CT ANGIOGRAM OF THE CHEST CLINICAL HISTORY: Atypical chest pain. Dyspnea. COMPARISON STUDY: Chest x-ray dated 03/18/2017. Chest CT dated 02/26/2016 and 12/11/2013. TECHNIQUE: Following the IV administration of 92 cc of Optiray 320, CT angiogram of the chest was performed from the upper abdomen to the thoracic inlet utilizing the pulmonary embolus protocol. Images are reviewed in the axial, sagittal, and coronal planes. 3-D MIPS images are created and assessed. IV contrast was administered without complication. A dose lowering technique was utilized adhering to the principles of ALARA. CT DOSE: 712.65 mGy.cm FINDINGS: Thyroid: Imaged portions of the thyroid gland are normal in size and attenuation. Thoracic aorta: There is atherosclerotic calcification of the thoracic aorta, which is normal in caliber and demonstrates standard 3-vessel arch anatomy. No dissection is seen. Pulmonary vasculature: The pulmonary trunk is normal in caliber. There are no filling defects identified in main, lobar, or proximal segmental pulmonary branches to suggest pulmonary embolus. Evaluation of the peripheral branches is degraded by motion artifact and suboptimal contrast opacification. Heart: The heart is top normal in size and without pericardial effusion. There are coronary artery calcifications. Lungs and pleural spaces: Moderate to advanced emphysema is noted. The trachea and central airways are clear. No airspace consolidation or pleural effusion is identified. A 3 mm left apical pulmonary nodule on image #257 is unchanged dating back to 2013 and of doubtful significance. Mediastinum: There is no mediastinal lymphadenopathy. Megan: Clear. Axillae: There is no axillary lymphadenopathy. Upper abdomen: A 2.3 cm cyst is again seen in the upper pole the right kidney. There is a tiny hiatal hernia. Skeletal structures: The skeletal structures are osteopenic. No lytic or blastic bony lesions are seen. IMPRESSION: 1. There is no evidence of central pulmonary embolus in the main, lobar, or proximal segmental pulmonary arteries. 2. Emphysema. 3. There is no airspace consolidation or pleural effusion. Electronically signed by: Navin Fletcher M.D. 03/18/2017 10:04 PM Dictated Date/Time: 03/18/2017 9:56 PM
[2017-03-18 22:15] VITALS: BP 122/64; PULSE 124; TEMP 36.9; O2SAT 96; Ht 160 cm; Wt 109.2 kg
[2017-03-18] MEDS ORDERED: MoRPHine SULFATE 4 MG/ML 1 ML CARP\\VIAL IV PRN (22:15)
[2017-03-18] MEDS ORDERED: CYCLOBENZAPRINE HCL 10 MG TAB PO PRN (22:15)
[2017-03-18] MEDS ORDERED: GLUCAGON FOR INJ 1 MG VIAL SQ PRN (22:15)
[2017-03-18] MEDS ORDERED: ACETAMINOPHEN 325 MG TAB PO PRN (22:15)
[2017-03-18] MEDS ORDERED: GLUCOSE 10 TABS/TUBE PO PRN (22:15)
[2017-03-18] MEDS ORDERED: GLUCOSE 40% GEL 15 GM TUBE PO PRN (22:15)
[2017-03-18] MEDS ORDERED: PROCHLORPERAZINE INJ 5 MG in SYRINGE 4 ML IV PRN (22:15)
[2017-03-18] MEDS ORDERED: DEXTROSE 50% 50 ML SYR IV PRN (22:15)
[2017-03-18] MEDS ORDERED: LEVALBUTEROL/IPRATROPIUM NEB INH PRN (22:15)
[2017-03-18] MEDS ORDERED: HYDROCODONE/ACETAMOPHEN 5/325MG TAB PO PRN (22:15)
[2017-03-18] MEDS ORDERED: MAGNESIUM SULFATE 1GM / D5W 1 GM in PREMIXED IN D5W 100 ML IV ONE (22:45)
[2017-03-18] MEDS ORDERED: SODIUM CHLORIDE 0.9% 1000ML 1,000 ML IV ONE (22:45)
[2017-03-18] MEDS ORDERED: SODIUM CHLORIDE 0.9% 1000ML 1,000 ML IV STA (22:49)
[2017-03-18] MEDS ORDERED: LEVALBUTEROL 1.25MG/0.5ML NEB INH PRN (23:00)
[2017-03-18 23:40] VITALS: BP 137/65; PULSE 115; TEMP 37.2; O2SAT 96
[2017-03-18] MEDS ORDERED: LORAZEPAM 0.5 MG TAB PO ONE (23:45)
[2017-03-19] VITALS (13 sets, daily range): BP systolic 133–158; BP diastolic 77–97; PULSE 81–122; TEMP 36.6–37; O2SAT 90–100
[2017-03-19 00:10] LABS: INFLUENZA A PCR POS for Influ A (NEG); INFLUENZA B PCR Neg for Influ B (NEG)
[2017-03-19] MEDS ORDERED: OSELTAMIVIR PHOSPHATE 75 MG CAP PO ONE (00:23)
--- NOTE | 2017-03-19 00:48 | HISTORY & PHYSICAL EXAMINATION ---
DATE OF ADMISSION: 03/18/2017 PRIMARY CARE PHYSICIAN: Dr. Jay. CHIEF COMPLAINT: Shortness of breath. HISTORY OF PRESENT ILLNESS: History obtained from patient, daughter, and records. Medical history significant for chronic respiratory failure secondary to steroid-dependent COPD, home O2, past tobacco abuse, hypertension, DM2 on oral meds, chronic anemia (baseline hemoglobin 10-11), GERD. Recent confinement last December 2016 for worsening respiratory distress secondary to COPD exacerbation. In the last week, the patient noted increasing shortness of breath and productive cough. Denies aspiration. Patient seen at ER a few days ago. Diagnosis was COPD exacerbation. Patient discharged on azithromycin and prednisone. Patient not better despite compliance with medications. The patient complaining of pleuritic substernal central pain, back spasms, body aches, loose stools noted, 101 temperature at home. The patient could not get the cough out. Patient returned to the Emergency Room. At the Emergency Room, the patient received Solu-Medrol, DuoNebs for COPD exacerbation. MEDICAL HISTORY: As above. SURGERIES: None. HOME MEDICATIONS: Include Mirapex, prednisone, Zantac, Utibron, Glucophage, Singulair, mag ox, Ditropan, Protonix, potassium chloride, glimepiride, Neurontin, O2, Vicodin, Combivent, DuoNeb, Ventolin, aspirin, Lipitor, amitriptyline, amlodipine, Tessalon Perles, vitamin B12, Flexeril, diclofenac, Lasix, fluticasone. ALLERGIES: No known drug allergies. FAMILY HISTORY: Heart disease and lung cancer. PERSONAL AND SOCIAL HISTORY: Past tobacco use. No chronic intake of alcoholic beverages. 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 REVIEW OF SYSTEMS: As per HPI. All 10 systems reviewed. All other ROS negative. PHYSICAL EXAMINATION: VITAL SIGNS: Blood pressure was noted to be 134/67, pulse rate 103, RR 24, temperature 37.5, sats 96 on 3 liters. GENERAL: Noted to be obese, in respiratory distress, receiving breathing treatment. SKIN: Pallor. Warm. HEENT: [place] palpebral conjunctivae. No ptosis. Dry mucosa. NECK: Short neck, supple. CHEST: Expiratory wheezes, rhonchi. HEART: Tachycardic. No murmur. ABDOMEN: Some distension, nontender. EXTREMITIES: Minimal LE edema. No tenderness. No gross deformity. NEUROLOGIC: Coherent. No gross focality. LABORATORY DATA: Hemoglobin was noted to be 9.4, hematocrit 30, white cells 8.8, platelets 366. Sodium 137, potassium 4, chloride 102, CO2 of 29, BUN 50, creatinine 1.1, glucose 175. Chest x-ray showed COPD. EKG as per my interpretation rate 115, sinus tachycardia, T-wave inversions in inferior leads, poor R-wave progression. ABG: pH 7.35, pCO2 of 47, pO2 100 on 3 liters. Initial Flu swab negative ASSESSMENT: 1. Chronic obstructive pulmonary disease exacerbation ro pulmonary embolism as precipitant given pleuritic chest pain complaints. Failed outpatient treatment. 2. Chronic respiratory failure secondary to steroid-dependent COPD on home O2 oxygenation seems to be at baseline. 3. Past tobacco abuse. 4. Hypertensin, stable. 5. DM2 on oral meds well controlled as of recent hemoglobin A1c of 7 from November 2016 6. Chronic anemia, hemoglobin at baseline 7. Diarrhea rule out C. difficile PLAN: PCU. Continue home O2. Substitute Doxycycline for Azithromycin with mild QT prolongation on EKG nebs, steroids, mucolytic. CT chest, PE study, Pulmonary consult, COPD exacerbation. (Patient known to Dr. Solis.) Basal insulin, ISS BG goal 140-180, patient due for hemoglobin A1c recheck Stool C. difficile DVT prophylaxis, Lovenox subQ. Full code. MTDD
[2017-03-19] MEDS: BENZONATATE 100MG CAP PO PRN ×3 (01:12→17:53)
[2017-03-19] MEDS: IPRATROPIUM BROMIDE NEB SOLN 0.02% 2.5 ML VIAL INH SCH ×4 (02:41→19:12)
[2017-03-19] MEDS: LEVALBUTEROL 1.25MG/0.5ML NEB INH SCH ×4 (02:41→19:12)
[2017-03-19] MEDS ORDERED: LEVALBUTEROL/IPRATROPIUM NEB INH SCH (03:00)
[2017-03-19 07:00] LABS: HEMATOCRIT 29.3 % (37-47); IG# 0.02 K/uL (0.00-0.02); LYMPH % 6.6 %; LYMPH ABS # 0.37 K/uL (1.2-3.4); MEAN CELL VOLUME 88.5 fL (80-100); MEAN CORPUSCULAR HEMOGLOBIN 27.2 pg (25-34); MEAN CORPUSCULAR HGB CONC 30.7 g/dl (32-36); MEAN PLATELET VOLUME 8.6 fL (7.4-10.4); MONO % 5.4 %; NEUT % 87.6 %; NEUT ABS # 4.89 K/uL (1.4-6.5); PLATELET COUNT 343 K/uL (130-400); RED CELL DISTRIBUTION WIDTH CV 15.4 % (11.5-14.5); RED CELL DISTRIBUTION WIDTH SD 49.9 fL (36.4-46.3); WHITE BLOOD COUNT 5.58 K/uL (4.8-10.8)
[2017-03-19 07:26] LABS: BLOOD UREA NITROGEN 14 mg/dl (7-18); CALCIUM 9.2 mg/dl (8.5-10.1); CARBON DIOXIDE 29 mmol/L (21-32); CREATININE 0.79 mg/dl (0.60-1.20); GLUCOSE 173 mg/dl (70-99); POTASSIUM 4.1 mmol/L (3.5-5.1); SODIUM 138 mmol/L (136-145)
[2017-03-19] MEDS: OXYBUTYNIN CHLORIDE 5 MG TABCR PO SCH (09:02)
[2017-03-19] MEDS: MONTELUKAST SOD 10 MG TAB PO SCH (09:02)
[2017-03-19] MEDS: PRAMIPEXOLE DIHYDROCHLORIDE 0.5 MG TAB PO SCH ×3 (09:02→22:29)
[2017-03-19] MEDS: ATORVASTATIN 10 MG TAB PO SCH (09:02)
[2017-03-19] MEDS: ASPIRIN 81 MG ECTAB PO SCH (09:02)
[2017-03-19] MEDS: AMLODIPINE BESYLATE 5 MG TAB PO SCH (09:02)
[2017-03-19] MEDS: GUAIFENESIN 600 MG TABCR PO SCH ×2 (09:02→22:29)
[2017-03-19] MEDS: PANTOprazole SOD 40 MG TAB PO SCH (09:03)
[2017-03-19] MEDS: GABAPENTIN 100 MG CAP PO SCH ×3 (09:03→22:29)
[2017-03-19] MEDS: ENOXAPARIN 40 MG/0.4 ML SYR SC SCH (09:04)
[2017-03-19] MEDS: CYANOCOBALAMIN 500 MCG TAB (VIT B-12) PO SCH (09:04)
[2017-03-19] MEDS: DOXYCYCLINE HYCLATE 100 MG CAP PO SCH ×2 (09:04→22:29)
[2017-03-19] MEDS: FLUTICASONE PROPIONATE NA SPR 16 GM BTL NAE SCH ×2 (09:05→22:29)
[2017-03-19] MEDS: FERROUS SULFATE 325 MG TAB PO SCH ×3 (09:05→17:53)
[2017-03-19] MEDS: INSULIN ASPART 100 UNITS/ML 3 ML PEN SC SCH ×4 (09:10→21:22)
[2017-03-19] MEDS: IPRATROPIUM BROMIDE NEB SOLN 0.02% 2.5 ML VIAL INH PRN ×2 (12:31→21:27)
[2017-03-19] MEDS ORDERED: NURSING DECISION MEDICATION ORDER SCH (18:30)
[2017-03-19] MEDS ORDERED: COUGH DROP (SUGAR FREE) LOZ 24 LOZ/1 BOX LOZ PRN (19:30)
[2017-03-19] MEDS ORDERED: METHYLPREDNISOLONE IV 80 MG in SYRINGE 0 ML IV ONE (20:00)
--- NOTE | 2017-03-19 21:00 | Progress Note ---
Medicine Progress Note Date & Time of Visit: Mar 19, 2017 at ~ 19:40 . Subjective CC: Follow-up visit for influenza A and other problems. HPI: Admitted last night with exacerbation of asthma / COPD. 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 Persistent severe cough and SOB. No fever. No chest pain. ROS: General- as noted above in HPI Resp- as noted above in HPI Cardiac- no chest pain, no edema GI- no nausea, no vomiting, no diarrhea - no dysuria . Objective Last 8 Hrs Date Time Temp Pulse Resp B/P (MAP) Pulse Ox O2 Delivery O2 Flow Rate FiO2 03/19/17 20:03 36.9 118 22 153/78 (103) 90 Nasal Cannula 3.0 03/19/17 16:00 Nasal Cannula 3.0 03/19/17 15:43 36.6 104 22 138/77 (97) 98 Nasal Cannula 1.0 03/19/17 14:58 105 20 98 Nasal Cannula 3.0 Physical Exam: General- sitting in chair, appears to be acutely ill Neck- trachea midline Lungs- scattered rhonchi; diffuse severe wheezing; tachypneic using accessory muscle Cardiovascular- RRR; tachy; no JVD; trace pretibial edema Abdomen- + bowel sounds, soft, nontender Extremities- no cyanosis; no calf tenderness Neuro- alert, oriented Skin- mildly diaphoretic . Laboratory Results: Last 24 Hours Test 03/18/17 22:19 03/18/17 23:21 03/18/17 23:55 03/19/17 06:39 Arterial Blood pH 7.35 Arterial Blood Partial Pressure CO2 47 mmHg Arterial Blood Partial Pressure O2 100 mm/Hg Arterial Blood HCO3 26 mmol/L Arterial Blood Oxygen Saturation 96.0 % Arterial Blood Base Excess -0.2 mEq/L Arterial Blood Gas Delivery 3L Ziyad Test POS Bedside Glucose 217 mg/dl Urine Color YELLOW Urine Appearance CLEAR Urine pH 6.0 Urine Specific [place] > 1.045 Urine Protein NEG Urine Glucose (UA) 1+ Urine Ketones NEG Urine Occult Blood NEG Urine Nitrite NEG Urine Bilirubin NEG Urine Urobilinogen NEG Urine Leukocyte Esterase NEG White Blood Count 5.58 K/uL Red Blood Count 3.31 M/uL Hemoglobin 9.0 g/dL Hematocrit 29.3 % Mean Corpuscular Volume 88.5 fL Mean Corpuscular Hemoglobin 27.2 pg Mean Corpuscular Hemoglobin Concent 30.7 g/dl Platelet Count 343 K/uL Mean Platelet Volume 8.6 fL Neutrophils (%) (Auto) 87.6 % Lymphocytes (%) (Auto) 6.6 % Monocytes (%) (Auto) 5.4 % Eosinophils (%) (Auto) 0.0 % Basophils (%) (Auto) 0.0 % Neutrophils # (Auto) 4.89 K/uL Lymphocytes # (Auto) 0.37 K/uL Monocytes # (Auto) 0.30 K/uL Eosinophils # (Auto) 0.00 K/uL Basophils # (Auto) 0.00 K/uL RDW Standard Deviation 49.9 fL RDW Coefficient of Variation 15.4 % Immature Granulocyte % (Auto) 0.4 % Immature Granulocyte # (Auto) 0.02 K/uL Sodium Level 138 mmol/L Potassium Level 4.1 mmol/L Chloride Level 102 mmol/L Carbon Dioxide Level 29 mmol/L Anion Gap 7.0 mmol/L Blood Urea Nitrogen 14 mg/dl Creatinine 0.79 mg/dl Est Creatinine Clear Calc Drug Dose 88.9 ml/min Estimated GFR () 93.0 Estimated GFR (Non- 80.2 BUN/Creatinine Ratio 17.6 Random Glucose 173 mg/dl Calcium Level 9.2 mg/dl Troponin I < 0.015 ng/ml Test 03/19/17 06:49 03/19/17 11:01 03/19/17 15:47 03/19/17 20:02 Bedside Glucose 159 mg/dl 99 mg/dl 189 mg/dl 201 mg/dl Date/Time Source Procedure Growth Status 03/19/17 14:20 Stool C.difficile Toxin B Gene (PCR) - Final Complete Assessment & Plan EXACERBATION OF COPD Secondary to influenza A. No infiltrates on chest x-ray. ABG last night on 3 L NC showed pO2 100, pCO2 47, HCO3 26, pH 7.35. Persistent severe bronchospasm despite antiviral therapy, steroids, nebs. Oxygenating well on 3 L. Check f/u chest x-ray. Increase steroids, then taper as soon as possible. BiPAP for ventilatory support. Check follow-up ABG if no improvement. INFLUENZA A Continue 5-day course of oseltamivir. CHRONIC HYPOXIC RESPIRATORY FAILURE Home O2 for asthma / COPD. CHRONIC LEFT VENTRICULAR DIASTOLIC HEART FAILURE Check follow-up chest x-ray. Titrate diuretics as necessary. HYPERTENSION Continue amlodipine. DM TYPE 2 Usually fairly well-controlled. Hgb A1C = 6.3. FBS this morning = 159. Expect fluctuating blood sugars due to acute illness and steroids. Hold metformin during hospital stay. Lantus / NovoLog per protocol. IV insulin if SQ protocol does not maintain adequate glycemic control. VTE PROPHYLAXIS SQ enoxaparin. Ambulate. DISPOSITION Expected discharge to home. Internal Medicine follow-up with Dr. Martina Jay. . Current Inpatient Medications: Current Inpatient Medications Medications (Trade) Dose Ordered Sig/Allison Route Start Time Stop Time Status Last Admin Dose Admin Insulin Glargine (Lantus Solostar Pen) 10 units HS SC 03/19/17 21:00 04/18/17 20:59 Guaifenesin (Mucinex Contr Rel Tab) 600 mg Q12 PO 03/19/17 09:00 04/18/17 08:59 03/19/17 09:02 600 MG Ioversol (Optiray 320) 100 ml UD PRN IV 03/18/17 21:30 03/22/17 21:29 Doxycycline Hyclate (Vibramycin Cap) 100 mg BID PO 03/19/17 09:00 03/26/17 08:59 03/19/17 09:04 100 MG Enoxaparin Sodium (Lovenox Inj) 40 mg Q24H SC 03/19/17 09:00 04/18/17 08:59 03/19/17 09:04 40 MG Acetaminophen (Tylenol Tab) 650 mg Q4H PRN PO 03/18/17 22:15 04/17/17 22:14 Insulin Aspart (novoLOG ASPART) SLIDING SCALE If C... ACHS SC 03/19/17 07:00 04/18/17 06:59 03/19/17 17:53 5 UNITS Glucose (Glucose 40% Gel) 15-30 GRAMS 15 GRAMS... UD PRN PO 03/18/17 22:15 04/17/17 22:14 Glucose (Glucose Chew Tab) 4-8 Tablets 4 Tabl... UD PRN PO 03/18/17 22:15 04/17/17 22:14 Dextrose (Dextrose 50% 50ML Syringe) 25-50ML OF 50% DW IV FOR... UD PRN IV 03/18/17 22:15 04/17/17 22:14 Glucagon (Glucagon Inj) 1 mg UD PRN SQ 03/18/17 22:15 04/17/17 22:14 Amitriptyline HCl (Elavil Tab) 10 mg HS PO 03/19/17 21:00 04/18/17 20:59 Amlodipine Besylate (Norvasc Tab) 5 mg DAILY PO 03/19/17 09:00 04/18/17 08:59 03/19/17 09:02 5 MG Aspirin (Ecotrin Tab) 81 mg DAILY PO 03/19/17 09:00 04/18/17 08:59 03/19/17 09:02 81 MG Atorvastatin Calcium (Lipitor Tab) 10 mg QAM PO 03/19/17 09:00 04/18/17 08:59 03/19/17 09:02 10 MG Cyclobenzaprine HCl (Flexeril Tab) 10 mg BID PRN PO 03/18/17 22:15 04/17/17 22:14 03/19/17 00:41 10 MG Fluticasone Propionate (Flonase Nasal [place]) 2 sprays BID LIDYA 03/19/17 09:00 04/18/17 08:59 03/19/17 09:05 2 SPRAYS Gabapentin (Neurontin Cap) 100 mg TID PO 03/19/17 09:00 04/18/17 08:59 03/19/17 14:47 100 MG Acetaminophen/ Hydrocodone Bitart ([place] 5/325 Tab) 1 tab Q6H PRN PO 03/18/17 22:15 04/01/17 22:14 Montelukast Sodium (Singulair Tab) 10 mg DAILY PO 03/19/17 09:00 04/18/17 08:59 03/19/17 09:02 10 MG Oxybutynin Chloride (Ditropan-Xl Tab) 5 mg DAILY PO 03/19/17 09:00 04/18/17 08:59 03/19/17 09:02 5 MG Pantoprazole Sodium (Protonix Tab) 40 mg QAM PO 03/19/17 09:00 04/18/17 08:59 03/19/17 09:03 40 MG Pramipexole Dihydrochloride (miraPEX TAB) 0.5 mg TID PO 03/19/17 09:00 04/18/17 08:59 03/19/17 14:46 0.5 MG Ranitidine HCl (zANTac TAB) 300 mg HS PO 03/19/17 21:00 04/18/17 20:59 Cyanocobalamin (Vitamin B-12 Tab) 1,000 mcg DAILY PO 03/19/17 09:00 04/18/17 08:59 03/19/17 09:04 1,000 MCG Ferrous Sulfate (Feosol Tab) 325 mg TIDM PO 03/19/17 07:30 04/18/17 07:29 03/19/17 17:53 325 MG Prochlorperazine Edisylate 5 mg/ Syringe 5 ml @ 5 mls/min Q6H PRN IV 03/18/17 22:15 04/17/17 22:14 Morphine Sulfate (MoRPHine SULFATE INJ) 4 mg Q6H PRN IV 03/18/17 22:15 04/01/17 22:14 Ipratropium [place] (Atrovent 0.02% 0.5MG/2.5ML Neb) 0.5 mg Q6R INH 03/19/17 03:00 04/18/17 02:59 03/19/17 19:12 0.5 MG Levalbuterol (Xopenex 1.25MG/ 0.5ML Neb) 1.25 mg Q6R INH 03/19/17 03:00 04/18/17 02:59 03/19/17 19:12 1.25 MG Ipratropium [place] (Atrovent 0.02% 0.5MG/2.5ML Neb) 0.5 mg Q4H PRN INH 03/18/17 23:00 04/17/17 22:59 03/19/17 12:31 0.5 MG Benzonatate (Tessalon Perles Cap) 100 mg Q8H PRN PO 03/19/17 00:00 04/18/17 00:00 03/19/17 17:53 100 MG Oseltamivir Phosphate (Tamiflu Cap) 75 mg BID PO 03/19/17 21:00 03/24/17 20:59 Menthol (Nice Von) 1 von PRN PRN VON 03/19/17 19:30 04/18/17 19:29 03/19/17 19:56 1 VON Methylprednisolone Sodium Succinate 80 mg/Syringe 1.28 ml @ 1.5 mls/min Q8 IV 03/20/17 06:00 04/19/17 05:59 Levalbuterol (Xopenex 0.63 Mg/ 3 Ml Neb) 0.63 mg Q2R PRN INH 03/19/17 19:45 04/18/17 19:44
[2017-03-19] MEDS: INSULIN GLARGINE SOLOSTAR 100 UNITS/ML 3 ML PEN SC SCH (21:23)
[2017-03-19] MEDS: LEVALBUTEROL 0.63MG/3 ML NEB INH PRN (21:27)
--- NOTE | 2017-03-19 21:54 | DIAGNOSTIC IMAGING REPORT ---
CHEST ONE VIEW PORTABLE HISTORY: 61 years-old Female SOB acute shortness of breath COMPARISON: CTA of the chest and chest radiograph 03/18/2017 TECHNIQUE: Portable AP view of the chest FINDINGS: Cardiac silhouette is again mildly enlarged. Atherosclerosis of the aorta. No pneumothorax, pleural effusion or overt pulmonary edema. Hazy opacities of the left lung base noted suggesting atelectasis. Right greater than left bullous upper lobe predominant emphysema. Bones of the chest appear grossly intact. IMPRESSION: 1. Mild cardiomegaly without acute process. 2. Right greater than left bullous upper lobe predominant emphysema. The above report was generated using voice recognition software. It may contain grammatical, syntax or spelling errors. Electronically signed by: Sergey Brito M.D. 03/19/2017 9:52 PM Dictated Date/Time: 03/19/2017 9:49 PM
[2017-03-19] MEDS: AMITRIPTYLINE HCL 10 MG TAB PO SCH (22:29)
[2017-03-19] MEDS: OSELTAMIVIR PHOSPHATE 75 MG CAP PO SCH (22:29)
[2017-03-19] MEDS: RANITIDINE HCL 150 MG TAB PO SCH (22:29)
[2017-03-19] MEDS ORDERED: LORAZEPAM INJ 0.5 MG in SYRINGE 0.25 ML IV ONE (23:30)
[2017-03-19] MEDS ORDERED: LORAZEPAM 1 MG TAB PO PRN (23:30)
[2017-03-19] MEDS ORDERED: LORAZEPAM 2 MG/ML 1 ML VIAL IV STA (23:35)
[2017-03-20] VITALS (12 sets, daily range): BP systolic 133–163; BP diastolic 83–93; PULSE 88–110; TEMP 36.5–36.9; O2SAT 93–100
[2017-03-20] MEDS: IPRATROPIUM BROMIDE NEB SOLN 0.02% 2.5 ML VIAL INH SCH ×4 (02:36→19:32)
[2017-03-20] MEDS: LEVALBUTEROL 1.25MG/0.5ML NEB INH SCH ×4 (02:36→19:32)
[2017-03-20] MEDS: METHYLPREDNISOLONE IV 80 MG in SYRINGE 0 ML IV SCH ×4 (05:37→22:12)
[2017-03-20 07:40] LABS: HEMOGLOBIN A1C 6.3 % (4.5-5.6)
[2017-03-20 07:44] LABS: HEMOGLOBIN 9.2 g/dL (12.0-16.0)
--- NOTE | 2017-03-20 08:01 | PULMONARY CONSULTATION ---
DATE OF CONSULTATION: 03/19/2017 REASON FOR CONSULTATION: COPD and asthma exacerbation. HISTORY OF PRESENT ILLNESS: A 61-year-old black female with severe COPD, who has followed in our office by Dr. Deepak Solis and by Trista Haque PA-C, whose primary care physician is Dr. Jay, was admitted by Dr. Nunez last evening. The patient is O2 dependent and has a longstanding smoking history, having quit 2-1/2 years ago. She is originally from [facility] and moved to [place] several years ago. She has a history of hypertensive cardiovascular disease, diabetes mellitus type 2 on oral medications and chronic anemia. She also suffers from reflux and has been steroid dependent. She apparently was evaluated by Dr. Yarbrough in November 2016 for both her COPD and recurrent bouts of hoarseness with minimal allergies. She has been on Singulair and Flonase in the past. She states that her dog is in the house in her bedroom. She states her breathing has been much worse here since she moved to [place] 24 years ago. She has had problems with recurrent hoarseness and was seen by ENT/Dr. Bhatt with no evidence of vocal cord paralysis or arytenoid dislocation. She has chronic laryngitis secondary fungal infection and inhaled steroids. She has been evaluated by Dr. Gil in the past. Skin testing was negative. She has been using Arnuity Ellipta and oxygen at 2 liters at night. She has been evaluated by Dr. Chester in the past and has had no food allergies. There are no moldy or mildewed areas in the house now, but there may have been with her concerns about multi planes in the past. They had been removed. She has been on Singulair and Utibron Neohaler 27.5 and 15.6 mcg one inhalation b.i.d. with Ventolin inhaler as well. Ranitidine for reflux and chronic prednisone. She uses oxygen at 2 liters at night and has a nebulizer at home with DuoNeb solution that she has had to use frequently since her admission on Monday. There are no obvious signs of aspiration. Hemoglobin on admission was 9.4 and hematocrit 30. EKG shows sinus tachycardia with T-wave inversions in the inferior leads. ABGs on admission pH 7.35, pCO2 of 47, and pO2 of 100 on 3 liters. She has been placed on doxycycline, aerosolized bronchodilator, IV Solu-Medrol and mucolytic agents. She had been on azithromycin. She is on Lovenox prophylaxis and Lantus insulin here. Intradermal testing had shown minimal reaction to GRASS POLLEN, TREE POLLEN, WEED POLLEN AND MOLD AND MILD REACTION TO DOG DANDER. Dr. Yarbrough did not feel there was a strong allogenic etiology or contributing cause to her worsening asthma/COPD and no additional recommendations were made. The patient had multiple admissions in the past for respiratory failure, once in 2010, twice in 2013, and multiple times in 2016. For details of past medical history, medications, family and social history, I refer you to current and past record. The patient had been tried on twice weekly azithromycin for hopefully a steroid sparing effect. She has had epistaxis as well and in February 2016, required intubation and had a persistent focal hoarseness post intubation with ICU myopathy. V/Q scanning in October 2016 is low probability for pulmonary emboli. Right heart catheterization in October 2016 shows mildly elevated right-sided PA pressures with pulmonary capillary wedge of 18 and a mean PA pressure of 25. Recent PFTs have not been done to my knowledge as she has had to cancel several times. The last PFTs that I have of December 2013 showed an FEV1/FVC ratio of 55%. Lung volumes were not measured. PHYSICAL EXAMINATION: GENERAL: Reveals a well-developed, cushingoid black female, friendly, conversive, but coughing almost continually at times. VITAL SIGNS: Temperature 36.7, pulse 81 and regular, respiratory rate 20, blood pressure 158/97, and O2 sat 98% on 3 liters. SKIN: Warm and dry. HEENT: Atraumatic and normocephalic. PERRLA and EOMI. Conjunctivae pale. Sclerae nonicteric. Fundi poorly visualized. NECK: Neck veins are not distended at 45 degrees. No evidence of adenopathy in the supra or infraclavicular areas. LUNGS: Coarse wheezes diffusely with diminished breath sounds. CARDIAC: Sinus tachycardia. I do not appreciate a gallop. ABDOMEN: Soft and protuberant. EXTREMITIES: Trace pedal edema. No clubbing or peripheral cyanosis. NEUROLOGIC: Intact. CTA angiogram reviewed yesterday showed no evidence of pulmonary thromboembolic disease, but there are clear changes of emphysema. There is no evidence for airspace consolidation. Blood cultures pending. The patient's H&H is still 9.0 and 29.3 and in November 2016, her H&H was 11.4 and 37.5. Glucose levels are erratic at 159 recently. PT, PTT, and INR within normal limits. IgE level was minimal in 2013. The patient was positive for influenza A and PCR antigen. OVERALL ASSESSMENT: A 61-year-old black female with moderate to severe chronic obstructive pulmonary disease, both O2 and steroid dependent, now with influenza, clearly an exacerbation of her underlying lung disease. I agree with current treatment, but I would do more of an extensive workup on the patient's anemia. I would check serum iron, TIBC, ferritin, B12, and folate levels and an SPEP should be done and I would check stools for occult blood as well. Hopefully, the patient over the next 24-48 hours will continue to turn this around. She is on Tamiflu and Lovenox prophylaxis. I have to keep a close eye on her glucose levels on high dose steroid therapy. The patient is currently on iron therapy and I am assuming that has been worked up for her anemia. Hematologic consultation may be needed as well.
[2017-03-20 08:18] LABS: CALCIUM 8.7 mg/dl (8.5-10.1); CREATININE 0.7 mg/dl (0.60-1.20); POTASSIUM 4.1 mmol/L (3.5-5.1)
[2017-03-20] MEDS: AMLODIPINE BESYLATE 5 MG TAB PO SCH (08:21)
[2017-03-20] MEDS: ASPIRIN 81 MG ECTAB PO SCH (08:21)
[2017-03-20] MEDS: CYANOCOBALAMIN 500 MCG TAB (VIT B-12) PO SCH (08:21)
[2017-03-20] MEDS: OXYBUTYNIN CHLORIDE 5 MG TABCR PO SCH (08:22)
[2017-03-20] MEDS: OSELTAMIVIR PHOSPHATE 75 MG CAP PO SCH ×2 (08:22→21:09)
[2017-03-20] MEDS: ATORVASTATIN 10 MG TAB PO SCH (08:22)
[2017-03-20] MEDS: PANTOprazole SOD 40 MG TAB PO SCH (08:23)
[2017-03-20] MEDS: PRAMIPEXOLE DIHYDROCHLORIDE 0.5 MG TAB PO SCH ×3 (08:23→21:08)
[2017-03-20] MEDS: GABAPENTIN 100 MG CAP PO SCH ×3 (08:23→21:09)
[2017-03-20] MEDS: BENZONATATE 100MG CAP PO PRN (08:23)
[2017-03-20] MEDS: FERROUS SULFATE 325 MG TAB PO SCH ×3 (08:24→17:22)
[2017-03-20] MEDS: GUAIFENESIN 600 MG TABCR PO SCH ×2 (08:24→21:09)
[2017-03-20] MEDS: MONTELUKAST SOD 10 MG TAB PO SCH (08:24)
[2017-03-20] MEDS: DOXYCYCLINE HYCLATE 100 MG CAP PO SCH ×2 (08:24→21:09)
[2017-03-20] MEDS: FLUTICASONE PROPIONATE NA SPR 16 GM BTL NAE SCH ×2 (08:24→21:06)
[2017-03-20] MEDS: ENOXAPARIN 40 MG/0.4 ML SYR SC SCH (08:25)
[2017-03-20] MEDS: INSULIN ASPART 100 UNITS/ML 3 ML PEN SC SCH ×4 (08:27→21:22)
[2017-03-20] MEDS ORDERED: LORAZEPAM 2 MG/ML 1 ML VIAL ONE (13:02)
[2017-03-20] MEDS ORDERED: LORAZEPAM INJ 1 MG in SYRINGE 0.5 ML IV ONE (13:15)
--- NOTE | 2017-03-20 19:45 | Progress Note ---
Medicine Progress Note Date & Time of Visit: Mar 20, 2017 at 12:50 . Subjective CC: Follow-up visit for influenza A, COPD, and other problems. HPI: Did better with BiPAP last night. Persistent cough and SOB. Acute worsening of dyspnea this morning after BiPAP applied. No fever. No chest pain. ROS: General- as noted above in HPI Resp- as noted above in HPI Cardiac- no chest pain, no edema GI- no nausea, no vomiting, no diarrhea - no dysuria . Objective Last 8 Hrs Date Time Temp Pulse Resp B/P (MAP) Pulse Ox O2 Delivery O2 Flow Rate FiO2 03/20/17 19:34 105 26 96 Nasal Cannula 2.0 03/20/17 19:24 36.7 110 24 159/93 (115) 97 Nasal Cannula 2.0 03/20/17 16:09 36.6 107 22 163/90 (114) 100 Nasal Cannula 2.0 03/20/17 16:00 Nasal Cannula 3.0 03/20/17 12:57 110 26 100 Nasal Cannula 2.0 03/20/17 12:00 Nasal Cannula 3.0 Physical Exam: General- sitting on edge of bed; appears to be acutely ill Neck- trachea midline Lungs- scattered rhonchi; diffuse wheezing; tachypneic using accessory muscle Cardiovascular- RRR; tachy; no gallop appreciated; no JVD; trace pretibial edema Abdomen- + bowel sounds, soft, nontender Extremities- no cyanosis; no calf tenderness Neuro- alert, oriented Skin- mildly diaphoretic . Laboratory Results: Last 24 Hours Test 03/19/17 20:02 03/20/17 06:38 03/20/17 07:20 03/20/17 11:35 Bedside Glucose 201 mg/dl 148 mg/dl 238 mg/dl Hemoglobin 9.2 g/dL Hematocrit 30.0 % Sodium Level 140 mmol/L Potassium Level 4.1 mmol/L Chloride Level 104 mmol/L Carbon Dioxide Level 28 mmol/L Anion Gap 8.0 mmol/L Blood Urea Nitrogen 17 mg/dl Creatinine 0.70 mg/dl Est Creatinine Clear Calc Drug Dose 100.3 ml/min Estimated GFR () 107.6 Estimated GFR (Non- 92.9 BUN/Creatinine Ratio 24.6 Random Glucose 116 mg/dl Calcium Level 8.7 mg/dl Test 03/20/17 14:05 03/20/17 16:25 Arterial Blood pH 7.37 Arterial Blood Partial Pressure CO2 50 mmHg Arterial Blood Partial Pressure O2 74 mm/Hg Arterial Blood HCO3 29 mmol/L Arterial Blood Oxygen Saturation 92.9 % Arterial Blood Base Excess 2.8 mEq/L Arterial Blood Gas Delivery 2L Ziyad Test POS Bedside Glucose 189 mg/dl Assessment & Plan EXACERBATION OF COPD Secondary to influenza A. No infiltrates on chest x-ray. ABG in ED on 3 L NC showed pO2 100, pCO2 47, HCO3 26, pH 7.35. Persistent severe dyspnea despite antiviral therapy, steroids, nebs. Oxygenating well on 2-3 L. No infiltrates on f/u chest x-ray. Continue steroids, taper as soon as possible. Continue BiPAP for ventilatory support. Seemed to be an upper airway component to episode of SOB this morning; improved with administration of IV lorazepam. INFLUENZA A Continue 5-day course of oseltamivir. CHRONIC HYPOXIC RESPIRATORY FAILURE Home O2 for asthma / COPD. CHRONIC LEFT VENTRICULAR DIASTOLIC HEART FAILURE Check follow-up chest x-ray. Titrate diuretics as necessary. HYPERTENSION Continue amlodipine. DM TYPE 2 Usually fairly well-controlled. Hgb A1C = 6.3. FBS this morning = 116. Expect fluctuating blood sugars due to acute illness and steroids. Hold metformin during hospital stay. Lantus / NovoLog per protocol. ANEMIA Hgb 9.4 at time of admission; normocytic. Anemia is chronic with most hemoglobins 8-10 over past year. Has not had recent labs done here. Fe studies recently ordered in clinic, but not yet done. Check Fe studies, B12, folate, stools for occult blood. VTE PROPHYLAXIS SQ enoxaparin. Ambulate. DISPOSITION Expected discharge to home. Internal Medicine follow-up with Dr. Martina Jay. . Current Inpatient Medications: Current Inpatient Medications Medications (Trade) Dose Ordered Sig/Allison Route Start Time Stop Time Status Last Admin Dose Admin Insulin Glargine (Lantus Solostar Pen) 10 units HS SC 03/19/17 21:00 04/18/17 20:59 03/19/17 21:23 10 UNITS Guaifenesin (Mucinex Contr Rel Tab) 600 mg Q12 PO 03/19/17 09:00 04/18/17 08:59 03/20/17 08:24 600 MG Ioversol (Optiray 320) 100 ml UD PRN IV 03/18/17:30 03/22/17 21:29 Doxycycline Hyclate (Vibramycin Cap) 100 mg BID PO 03/19/17 09:00 03/26/17 08:59 03/20/17 08:24 100 MG Enoxaparin Sodium (Lovenox Inj) 40 mg Q24H SC 03/19/17 09:00 04/18/17 08:59 03/20/17 08:25 40 MG Acetaminophen (Tylenol Tab) 650 mg Q4H PRN PO 03/18/17 22:15 04/17/17 22:14 Insulin Aspart (novoLOG ASPART) SLIDING SCALE If C... ACHS SC 03/19/17 07:00 04/18/17 06:59 03/20/17 17:21 8 UNITS Glucose (Glucose 40% Gel) 15-30 GRAMS 15 GRAMS... UD PRN PO 03/18/17 22:15 04/17/17 22:14 Glucose (Glucose Chew Tab) 4-8 Tablets 4 Tabl... UD PRN PO 03/18/17 22:15 04/17/17 22:14 Dextrose (Dextrose 50% 50ML Syringe) 25-50ML OF 50% DW IV FOR... UD PRN IV 03/18/17 22:15 04/17/17 22:14 Glucagon (Glucagon Inj) 1 mg UD PRN SQ 03/18/17 22:15 04/17/17 22:14 Amitriptyline HCl (Elavil Tab) 10 mg HS PO 03/19/17 21:00 04/18/17 20:59 03/19/17 22:29 10 MG Amlodipine Besylate (Norvasc Tab) 5 mg DAILY PO 03/19/17 09:00 04/18/17 08:59 03/20/17 08:21 5 MG Aspirin (Ecotrin Tab) 81 mg DAILY PO 03/19/17 09:00 04/18/17 08:59 03/20/17 08:21 81 MG Atorvastatin Calcium (Lipitor Tab) 10 mg QAM PO 03/19/17 09:00 04/18/17 08:59 03/20/17 08:22 10 MG Cyclobenzaprine HCl (Flexeril Tab) 10 mg BID PRN PO 03/18/17 22:15 04/17/17 22:14 03/19/17 00:41 10 MG Fluticasone Propionate (Flonase Nasal [place]) 2 sprays BID LIDYA 03/19/17 09:00 04/18/17 08:59 03/20/17 08:24 2 SPRAYS Acetaminophen/ Hydrocodone Bitart ([place] 5/325 Tab) 1 tab Q6H PRN PO 03/18/17 22:15 04/01/17 22:14 Montelukast Sodium (Singulair Tab) 10 mg DAILY PO 03/19/17 09:00 04/18/17 08:59 03/20/17 08:24 10 MG Oxybutynin Chloride (Ditropan-Xl Tab) 5 mg DAILY PO 03/19/17 09:00 04/18/17 08:59 03/20/17 08:22 5 MG Pantoprazole Sodium (Protonix Tab) 40 mg QAM PO 03/19/17 09:00 04/18/17 08:59 03/20/17 08:23 40 MG Pramipexole Dihydrochloride (miraPEX TAB) 0.5 mg TID PO 03/19/17 09:00 04/18/17 08:59 03/20/17 14:24 0.5 MG Ranitidine HCl (zANTac TAB) 300 mg HS PO 03/19/17 21:00 04/18/17 20:59 03/19/17 22:29 300 MG Cyanocobalamin (Vitamin B-12 Tab) 1,000 mcg DAILY PO 03/19/17 09:00 04/18/17 08:59 03/20/17 08:21 1,000 MCG Ferrous Sulfate (Feosol Tab) 325 mg TIDM PO 03/19/17 07:30 04/18/17 07:29 03/20/17 17:22 325 MG Prochlorperazine Edisylate 5 mg/ Syringe 5 ml @ 5 mls/min Q6H PRN IV 03/18/17 22:15 04/17/17 22:14 Morphine Sulfate (MoRPHine SULFATE INJ) 4 mg Q6H PRN IV 03/18/17 22:15 04/01/17 22:14 Ipratropium [place] (Atrovent 0.02% 0.5MG/2.5ML Neb) 0.5 mg Q6R INH 03/19/17 03:00 04/18/17 02:59 03/20/17 19:32 0.5 MG Levalbuterol (Xopenex 1.25MG/ 0.5ML Neb) 1.25 mg Q6R INH 03/19/17 03:00 04/18/17 02:59 03/20/17 19:32 1.25 MG Ipratropium [place] (Atrovent 0.02% 0.5MG/2.5ML Neb) 0.5 mg Q4H PRN INH 03/18/17 23:00 04/17/17 22:59 03/19/17 21:27 0.5 MG Benzonatate (Tessalon Perles Cap) 100 mg Q8H PRN PO 03/19/17 00:00 04/18/17 00:00 03/20/17 08:23 100 MG Oseltamivir Phosphate (Tamiflu Cap) 75 mg BID PO 03/19/17 21:00 03/24/17 20:59 03/20/17 08:22 75 MG Menthol (Nice Von) 1 von PRN PRN VON 03/19/17 19:30 04/18/17 19:29 03/19/17 19:56 1 VON Methylprednisolone Sodium Succinate 80 mg/Syringe 1.28 ml @ 1.5 mls/min Q8 IV 03/20/17 06:00 04/19/17 05:59 03/20/17 14:24 1.5 MLS/MIN Levalbuterol (Xopenex 0.63 Mg/ 3 Ml Neb) 0.63 mg Q2R PRN INH 03/19/17 19:45 04/18/17 19:44 03/19/17 21:27 0.63 MG Gabapentin (Neurontin Cap) 100 mg TID PO 03/20/17 09:00 04/18/17 08:59 03/20/17 14:24 100 MG Alprazolam (Xanax Tab) 0.5 mg TID PO 03/20/17 21:00 04/19/17 20:59
[2017-03-20] MEDS: AMITRIPTYLINE HCL 10 MG TAB PO SCH (21:08)
[2017-03-20] MEDS: RANITIDINE HCL 150 MG TAB PO SCH (21:10)
[2017-03-20] MEDS: INSULIN GLARGINE SOLOSTAR 100 UNITS/ML 3 ML PEN SC SCH (21:22)
[2017-03-20] MEDS: ALPRAZOLAM 0.5 MG TAB PO SCH (21:27)
[2017-03-21] VITALS (16 sets, daily range): BP systolic 141–161; BP diastolic 76–95; PULSE 86–106; TEMP 36.5–36.8; O2SAT 92–100
[2017-03-21] MEDS: IPRATROPIUM BROMIDE NEB SOLN 0.02% 2.5 ML VIAL INH SCH ×4 (02:27→19:28)
[2017-03-21] MEDS: LEVALBUTEROL 1.25MG/0.5ML NEB INH SCH ×4 (02:27→19:30)
[2017-03-21] MEDS: METHYLPREDNISOLONE IV 40 MG in SYRINGE 0 ML IV SCH ×3 (06:31→20:04)
[2017-03-21 06:36] LABS: HEMATOCRIT 29.8 % (37-47); HEMOGLOBIN 9.1 g/dL (12.0-16.0)
[2017-03-21] MEDS: CYANOCOBALAMIN 500 MCG TAB (VIT B-12) PO SCH (08:02)
[2017-03-21] MEDS: DOXYCYCLINE HYCLATE 100 MG CAP PO SCH (08:02)
[2017-03-21] MEDS: AMLODIPINE BESYLATE 5 MG TAB PO SCH (08:02)
[2017-03-21] MEDS: ATORVASTATIN 10 MG TAB PO SCH (08:02)
[2017-03-21] MEDS: ASPIRIN 81 MG ECTAB PO SCH (08:02)
[2017-03-21] MEDS: GABAPENTIN 100 MG CAP PO SCH ×3 (08:03→20:02)
[2017-03-21] MEDS: BENZONATATE 100MG CAP PO PRN ×2 (08:03→20:03)
[2017-03-21] MEDS: ENOXAPARIN 40 MG/0.4 ML SYR SC SCH (08:03)
[2017-03-21] MEDS: FERROUS SULFATE 325 MG TAB PO SCH ×3 (08:04→16:10)
[2017-03-21] MEDS: PANTOprazole SOD 40 MG TAB PO SCH (08:04)
[2017-03-21] MEDS: PRAMIPEXOLE DIHYDROCHLORIDE 0.5 MG TAB PO SCH ×3 (08:04→20:01)
[2017-03-21] MEDS: OXYBUTYNIN CHLORIDE 5 MG TABCR PO SCH (08:04)
[2017-03-21] MEDS: OSELTAMIVIR PHOSPHATE 75 MG CAP PO SCH ×2 (08:05→20:02)
[2017-03-21] MEDS: FLUTICASONE PROPIONATE NA SPR 16 GM BTL NAE SCH ×2 (08:05→20:01)
[2017-03-21] MEDS: MONTELUKAST SOD 10 MG TAB PO SCH (08:05)
[2017-03-21] MEDS: GUAIFENESIN 600 MG TABCR PO SCH ×2 (08:06→20:05)
[2017-03-21] MEDS: INSULIN ASPART 100 UNITS/ML 3 ML PEN SC SCH ×5 (08:11→23:56)
[2017-03-21] MEDS: ALPRAZOLAM 0.5 MG TAB PO SCH ×3 (08:13→20:10)
[2017-03-21] MEDS ORDERED: PHARMACY GLYCEMIC MGMT CONSULT PRN (10:36)
--- NOTE | 2017-03-21 10:51 | Progress Note ---
Medicine Progress Note Date & Time of Visit: Mar 21, 2017 at 10:44. Subjective patient seen resting in bedside chair comfortable, not in distress states she feels improved today compared to yesterday still has dry cough denies chest pain reports black stools since being started on Iron supplement, no hematochezia, no chest pain/dyspnea/dizziness, had 1 episode of epistaxis at home, but otherwise no other signs of bleeding no other symptoms Objective Last 8 Hrs Date Time Temp Pulse Resp B/P (MAP) Pulse Ox O2 Delivery O2 Flow Rate FiO2 03/21/17 07:53 36.5 99 22 154/87 (109) 97 Nasal Cannula 3.0 03/21/17 07:39 36.6 94 20 143/82 (102) 96 Nasal Cannula 2.0 03/21/17 07:00 97 26 95 Nasal Cannula 2.0 03/21/17 04:19 36.7 98 20 141/82 (101) 98 Nasal Cannula 2.0 03/21/17 04:00 98 Nasal Cannula 2.0 Physical Exam: General- oriented x 3, not in distress, speaks in sentences with no effort Head- atraumatic Eyes- PERRL, EOMI, anicteric ENT- oropharynx clear Neck- supple, no JVD, no adenopathy, no thyromegaly Lungs- mild scattered wheezing bilaterally, no rales/wheezes Heart- regular rhythm; no murmur, no gallop, normal rate Abdomen- normal bowel sounds, soft, nontender Extremities- no pretibial edema, no calf tenderness; peripheral pulses intact Neuro- alert, oriented x 3; no gross focal deficits Skin- warm & dry Laboratory Results: Last 24 Hours Test 03/20/17 11:35 03/20/17 14:05 03/20/17 16:25 03/20/17 21:02 Bedside Glucose 238 mg/dl 189 mg/dl 195 mg/dl Arterial Blood pH 7.37 Arterial Blood Partial Pressure CO2 50 mmHg Arterial Blood Partial Pressure O2 74 mm/Hg Arterial Blood HCO3 29 mmol/L Arterial Blood Oxygen Saturation 92.9 % Arterial Blood Base Excess 2.8 mEq/L Arterial Blood Gas Delivery 2L Ziyad Test POS Test 03/21/17 06:12 03/21/17 06:36 Hemoglobin 9.1 g/dL Hematocrit 29.8 % Iron Level 15 mcg/dl Total Iron Binding Capacity 371 mcg/dl Transferrin 266 mg/dl Transferrin % Saturation 4 % Ferritin 38.1 ng/ml Vitamin B12 Level 816 pg/mL Folate 16.79 ng/mL Bedside Glucose 213 mg/dl Assessment & Plan EXACERBATION OF COPD Secondary to influenza A. No infiltrates on chest x-ray. ABG in ED on 3 L NC showed pO2 100, pCO2 47, HCO3 26, pH 7.35. Persistent severe dyspnea despite antiviral therapy, steroids, nebs. Oxygenating well on 2-3 L. No infiltrates on f/u chest x-ray. -- still has mild scattered wheeze bilaterally on 2-3 L NC continue Tamiflu, Methylprednisolone, Nebs q6h monitor -- appreciate Pulm Input INFLUENZA A Continue 5-day course of oseltamivir. CHRONIC HYPOXIC RESPIRATORY FAILURE Home O2 for asthma / COPD. IRON DEFICIENCY ANEMIA Hgb 9.4 at time of admission; normocytic. Anemia is chronic with most hemoglobins 8-10 over past year. Has not had recent labs done here. - Fe 15 - FeSO4 increased to TID - last EGD/Colonoscopy in 2016: unremarkable needs further work up, possible Hematology referral as outpatient CHRONIC LEFT VENTRICULAR DIASTOLIC HEART FAILURE CXR: IMPRESSION: 1. Mild cardiomegaly without acute process. 2. Right greater than left bullous upper lobe predominant emphysema. -- euvolemic HYPERTENSION Continue amlodipine. DM TYPE 2 Usually fairly well-controlled. Hgb A1C = 6.3. Hold metformin during hospital stay. Lantus / NovoLog per protocol. -- will consult Pharmacy Glycemic Control VTE PROPHYLAXIS SQ enoxaparin. Ambulate. DISPOSITION Expected discharge to home in 1-2 days Internal Medicine follow-up with Dr. Martina Jay. . Current Inpatient Medications: Current Inpatient Medications Medications (Trade) Dose Ordered Sig/Allison Route Start Time Stop Time Status Last Admin Dose Admin Insulin Glargine (Lantus Solostar Pen) 10 units HS SC 03/19/17 21:00 04/18/17 20:59 03/20/17 21:22 10 UNITS Guaifenesin (Mucinex Contr Rel Tab) 600 mg Q12 PO 03/19/17 09:00 04/18/17 08:59 03/21/17 08:06 600 MG Ioversol (Optiray 320) 100 ml UD PRN IV 03/18/17 21:30 03/22/17 21:29 Doxycycline Hyclate (Vibramycin Cap) 100 mg BID PO 03/19/17 09:00 03/26/17 08:59 03/21/17 08:02 100 MG Enoxaparin Sodium (Lovenox Inj) 40 mg Q24H SC 03/19/17 09:00 04/18/17 08:59 03/21/17 08:03 40 MG Acetaminophen (Tylenol Tab) 650 mg Q4H PRN PO 03/18/17 22:15 04/17/17 22:14 Insulin Aspart (novoLOG ASPART) SLIDING SCALE If C... ACHS SC 03/19/17 07:00 04/18/17 06:59 03/21/17 08:11 6 UNITS Glucose (Glucose 40% Gel) 15-30 GRAMS 15 GRAMS... UD PRN PO 03/18/17 22:15 04/17/17 22:14 Glucose (Glucose Chew Tab) 4-8 Tablets 4 Tabl... UD PRN PO 03/18/17 22:15 04/17/17 22:14 Dextrose (Dextrose 50% 50ML Syringe) 25-50ML OF 50% DW IV FOR... UD PRN IV 03/18/17 22:15 04/17/17 22:14 Glucagon (Glucagon Inj) 1 mg UD PRN SQ 03/18/17 22:15 04/17/17 22:14 Amitriptyline HCl (Elavil Tab) 10 mg HS PO 03/19/17 21:00 04/18/17 20:59 03/20/17 21:08 10 MG Amlodipine Besylate (Norvasc Tab) 5 mg DAILY PO 03/19/17 09:00 04/18/17 08:59 03/21/17 08:02 5 MG Aspirin (Ecotrin Tab) 81 mg DAILY PO 03/19/17 09:00 04/18/17 08:59 03/21/17 08:02 81 MG Atorvastatin Calcium (Lipitor Tab) 10 mg QAM PO 03/19/17 09:00 04/18/17 08:59 03/21/17 08:02 10 MG Cyclobenzaprine HCl (Flexeril Tab) 10 mg BID PRN PO 03/18/17 22:15 04/17/17 22:14 03/19/17 00:41 10 MG Fluticasone Propionate (Flonase Nasal [place]) 2 sprays BID LIDYA 03/19/17 09:00 04/18/17 08:59 03/21/17 08:05 2 SPRAYS Acetaminophen/ Hydrocodone Bitart ([place] 5/325 Tab) 1 tab Q6H PRN PO 03/18/17 22:15 04/01/17 22:14 03/20/17 21:27 1 TAB Montelukast Sodium (Singulair Tab) 10 mg DAILY PO 03/19/17 09:00 04/18/17 08:59 03/21/17 08:05 10 MG Oxybutynin Chloride (Ditropan-Xl Tab) 5 mg DAILY PO 03/19/17 09:00 04/18/17 08:59 03/21/17 08:04 5 MG Pantoprazole Sodium (Protonix Tab) 40 mg QAM PO 03/19/17 09:00 04/18/17 08:59 03/21/17 08:04 40 MG Pramipexole Dihydrochloride (miraPEX TAB) 0.5 mg TID PO 03/19/17 09:00 04/18/17 08:59 03/21/17 08:04 0.5 MG Ranitidine HCl (zANTac TAB) 300 mg HS PO 03/19/17 21:00 04/18/17 20:59 03/20/17 21:10 300 MG Cyanocobalamin (Vitamin B-12 Tab) 1,000 mcg DAILY PO 03/19/17 09:00 04/18/17 08:59 03/21/17 08:02 1,000 MCG Ferrous Sulfate (Feosol Tab) 325 mg TIDM PO 03/19/17 07:30 04/18/17 07:29 03/21/17 08:04 325 MG Prochlorperazine Edisylate 5 mg/ Syringe 5 ml @ 5 mls/min Q6H PRN IV 03/18/17 22:15 04/17/17 22:14 Morphine Sulfate (MoRPHine SULFATE INJ) 4 mg Q6H PRN IV 03/18/17 22:15 04/01/17 22:14 Ipratropium [place] (Atrovent 0.02% 0.5MG/2.5ML Neb) 0.5 mg Q6R INH 03/19/17 03:00 04/18/17 02:59 03/21/17 07:00 0.5 MG Levalbuterol (Xopenex 1.25MG/ 0.5ML Neb) 1.25 mg Q6R INH 03/19/17 03:00 04/18/17 02:59 03/21/17 07:00 1.25 MG Ipratropium [place] (Atrovent 0.02% 0.5MG/2.5ML Neb) 0.5 mg Q4H PRN INH 03/18/17 23:00 04/17/17 22:59 03/19/17 21:27 0.5 MG Benzonatate (Tessalon Perles Cap) 100 mg Q8H PRN PO 03/19/17 00:00 04/18/17 00:00 03/21/17 08:03 100 MG Oseltamivir Phosphate (Tamiflu Cap) 75 mg BID PO 03/19/17 21:00 03/24/17 20:59 03/21/17 08:05 75 MG Menthol (Nice Von) 1 von PRN PRN VON 03/19/17 19:30 04/18/17 19:29 03/19/17 19:56 1 VON Levalbuterol (Xopenex 0.63 Mg/ 3 Ml Neb) 0.63 mg Q2R PRN INH 03/19/17 19:45 04/18/17 19:44 03/19/17 21:27 0.63 MG Gabapentin (Neurontin Cap) 100 mg TID PO 03/20/17 09:00 04/18/17 08:59 03/21/17 08:03 100 MG Alprazolam (Xanax Tab) 0.5 mg TID PO 03/20/17 21:00 04/19/17 20:59 03/21/17 08:13 0.5 MG Methylprednisolone Sodium Succinate 40 mg/Syringe 0.64 ml @ 1.5 mls/min Q8 IV 03/21/17 06:00 04/20/17 05:59 03/21/17 06:31 1.5 MLS/MIN Miscellaneous Information (Consult Glycemic Management Pharmacy) 1 ea UD PRN N/A 03/21/17 10:36 04/20/17 10:35
[2017-03-21] MEDS ORDERED: INSULIN GLARGINE SOLOSTAR 100 UNITS/ML 3 ML PEN SC SCH (11:00)
--- NOTE | 2017-03-21 13:45 | Clinical Documentation Query ---
CLINICAL DOCUMENTATION QUERY Dr. CARR, In your clinical opinion is this patient being managed for: ( ) Acute respiratory failure with hypoxia treated and improved ( ) Not Agree ( ) Other explanation of clinical findings (Please Explain) ( ) Unable to determine (Please Define) ( ) Need to Discuss The medical record reflects the following clinical findings, treatment, and risk factors. Clinical Indicators: 61 yo female presenting with COPD exacerbation and influenza A. Progress notes on 03/19 and 03/20 noted: diffuse severe wheezing; tachypneic using accessory muscle, diaphoretic Treatment: tele, O2 support, placed on BIPAP, IV solumedrol, pulmonary consult, IV ativan Risk Factors: Influenza A, COPD exacerbation, chronic respiratory failure Please clarify and document your clinical opinion in the progress notes and discharge summary. Terms such as "probable", "suspected", "likely", "questionable", "possible", or "still to be ruled out" are acceptable. IF IN AGREEMENT, YOU MUST DOCUMENT ABOVE DIAGNOSTIC STATEMENT IN DAILY PROGRESS NOTES AND DISCHARGE SUMMARY. This document is not part of the patient's record. Thank You, Laurel Galindo, RN [phone]
[2017-03-21] MEDS ORDERED: ALPRAZOLAM 0.5 MG TAB PO STA (14:44)
--- NOTE | 2017-03-21 15:30 | Pharmacy Progress Note ---
Glycemic Control Intl Consult Date of Service Mar 21, 2017. Scope Glycemic Pharmacist consulted by Dr Murillo on 03/21/17 for glycemic control and to write orders per [facility] inpatient glycemic control protocol. Objective Weight (Kilograms): 112.500 Accuchecks BSG (last 24hrs): Test 03/20/17 16:25 03/20/17 21:02 03/21/17 06:36 03/21/17 10:45 Bedside Glucose 189 mg/dl (70-90) 195 mg/dl (70-90) 213 mg/dl (70-90) 294 mg/dl (70-90) HbA1c Test 03/18/17 19:45 Hemoglobin A1c 6.3 % (4.5-5.6) H Recent Pertinent Medications Outpatient Anti-diabetic Regimen: * Metformin 1000mg PO BID * Glimepiride 0.5mg PO daily if needed for hyperglycemia w/ prednisone * A1c = 6.3% 03/18/17 The patient is currently receiving: * Basal insulin: Lantus 10 units every 24 hours * Correctional Insulin: Novolog Correction per scale ACHS Goal Range: Low 140 mg/dL - High 180 mg/dL Correction Factor: 20 mg/dL/unit * Prandial insulin: Per carb ratio of 1 unit per 10 grams CHO consumed Risk Factors for Insulin Resistance: * Steroids: SoluMedrol 40mg IV q8h * Diet: Type 2 diabetic diet Assessment & Plan ASSESSMENT: * Ms Kaminski is a 61yo diabetic female admitted for COPD exacerbation. * Patient is experiencing hyperglycemia d/t high dose steroids. * Lantus increased to BID this morning (first dose given with lunch). Will give a larger dose at bedtime if needed, based on BSGs. * Novolog parameters tightened slightly this morning and additional accu-checks ordered for overnight. PLAN FOR INPATIENT GLYCEMIC CONTROL: * Basal insulin with LANTUS 10 units SQ BID * Give 20 units for BSG greater than 180mg/dL * Correctional Insulin with NOVOLOG per scale ACHS and 00,04 until hyperglycemia is resolved * Goal Range: Low 140 mg/dL - High 180 mg/dL * Correction Factor: 20 mg/dL/unit * Nutritional / Prandial insulin per carb ratio of 1 unit per 8 grams CHO consumed * Please note that the plan above was derived based on current level of insulin resistance and hospital stress. These recommendations are appropriate for inpatient admission only. Plan of care upon discharge will need to be reassessed to avoid potential outpatient hypo/hyperglycemia. Thank you.
--- NOTE | 2017-03-21 17:18 | Pulmonology Progress Note ---
Pulmonary Progress Note Date of Service Mar 21, 2017. Attending Dr. Gardiner Subjective The patient feels better, her strength is improving, wheezing is also improving. Overall she is feeling weak partially because of being in bed for the past few days. No sputum production. She continued to have occasional cough. No events overnight. Objective 03/21/2017 physical exam revealed vital signs are stable, O2 saturation 93% on nasal cannula, minimal stridor, very faint wheezing bilaterally, heart examination S1-S2 regular rate and rhythm, abdomen is benign no edema. Neurologically she is intact. Assessment & Plan #1 COPD exacerbation. Gold level III, home O2 and steroid dependent. Grade C. #2 stridor related to vocal cord dysfunction. #3 morbid obesity with obstructive sleep apnea. #4 influenza A bronchitis. #5 deconditioning. Plan: #1 continue current dose of steroids. #2 continue with alprazolam. #3 bronchodilators. #4 complete the course of Tamiflu. #5 I would change her to prednisone twice a day in the morning. #6 if she continued to have stridor, visualization of the vocal cords were be the next step. We will reevaluate in the morning. Data Medications: Current Inpatient Medications Medications (Trade) Dose Ordered Sig/Allison Route Start Time Stop Time Status Last Admin Dose Admin Guaifenesin (Mucinex Contr Rel Tab) 600 mg Q12 PO 03/19/17 09:00 04/18/17 08:59 03/21/17 08:06 600 MG Ioversol (Optiray 320) 100 ml UD PRN IV 03/18/17 21:30 03/22/17 21:29 Enoxaparin Sodium (Lovenox Inj) 40 mg Q24H SC 03/19/17 09:00 04/18/17 08:59 03/21/17 08:03 40 MG Acetaminophen (Tylenol Tab) 650 mg Q4H PRN PO 03/18/17 22:15 04/17/17 22:14 Insulin Aspart (novoLOG ASPART) SLIDING SCALE If C... ACHS SC 03/19/17 07:00 04/18/17 06:59 03/21/17 16:47 6 UNITS Glucose (Glucose 40% Gel) 15-30 GRAMS 15 GRAMS... UD PRN PO 03/18/17 22:15 04/17/17 22:14 Glucose (Glucose Chew Tab) 4-8 Tablets 4 Tabl... UD PRN PO 03/18/17 22:15 04/17/17 22:14 Dextrose (Dextrose 50% 50ML Syringe) 25-50ML OF 50% DW IV FOR... UD PRN IV 03/18/17 22:15 04/17/17 22:14 Glucagon (Glucagon Inj) 1 mg UD PRN SQ 03/18/17 22:15 04/17/17 22:14 Amitriptyline HCl (Elavil Tab) 10 mg HS PO 03/19/17 21:00 04/18/17 20:59 03/20/17 21:08 10 MG Amlodipine Besylate (Norvasc Tab) 5 mg DAILY PO 03/19/17 09:00 04/18/17 08:59 03/21/17 08:02 5 MG Aspirin (Ecotrin Tab) 81 mg DAILY PO 03/19/17 09:00 04/18/17 08:59 03/21/17 08:02 81 MG Atorvastatin Calcium (Lipitor Tab) 10 mg QAM PO 03/19/17 09:00 04/18/17 08:59 03/21/17 08:02 10 MG Cyclobenzaprine HCl (Flexeril Tab) 10 mg BID PRN PO 03/18/17 22:15 04/17/17 22:14 03/19/17 00:41 10 MG Fluticasone Propionate (Flonase Nasal [place]) 2 sprays BID LIDYA 03/19/17 09:00 04/18/17 08:59 03/21/17 08:05 2 SPRAYS Acetaminophen/ Hydrocodone Bitart ([place] 5/325 Tab) 1 tab Q6H PRN PO 03/18/17 22:15 04/01/17 22:14 03/20/17 21:27 1 TAB Montelukast Sodium (Singulair Tab) 10 mg DAILY PO 03/19/17 09:00 04/18/17 08:59 03/21/17 08:05 10 MG Oxybutynin Chloride (Ditropan-Xl Tab) 5 mg DAILY PO 03/19/17 09:00 04/18/17 08:59 03/21/17 08:04 5 MG Pantoprazole Sodium (Protonix Tab) 40 mg QAM PO 03/19/17 09:00 04/18/17 08:59 03/21/17 08:04 40 MG Pramipexole Dihydrochloride (miraPEX TAB) 0.5 mg TID PO 03/19/17 09:00 04/18/17 08:59 03/21/17 12:33 0.5 MG Ranitidine HCl (zANTac TAB) 300 mg HS PO 03/19/17 21:00 04/18/17 20:59 03/20/17 21:10 300 MG Cyanocobalamin (Vitamin B-12 Tab) 1,000 mcg DAILY PO 03/19/17 09:00 04/18/17 08:59 03/21/17 08:02 1,000 MCG Ferrous Sulfate (Feosol Tab) 325 mg TIDM PO 03/19/17 07:30 04/18/17 07:29 03/21/17 16:10 325 MG Prochlorperazine Edisylate 5 mg/ Syringe 5 ml @ 5 mls/min Q6H PRN IV 03/18/17 22:15 04/17/17 22:14 Morphine Sulfate (MoRPHine SULFATE INJ) 4 mg Q6H PRN IV 03/18/17 22:15 04/01/17 22:14 Ipratropium [place] (Atrovent 0.02% 0.5MG/2.5ML Neb) 0.5 mg Q6R INH 03/19/17 03:00 04/18/17 02:59 03/21/17 14:15 0.5 MG Levalbuterol (Xopenex 1.25MG/ 0.5ML Neb) 1.25 mg Q6R INH 03/19/17 03:00 04/18/17 02:59 03/21/17 14:15 1.25 MG Ipratropium [place] (Atrovent 0.02% 0.5MG/2.5ML Neb) 0.5 mg Q4H PRN INH 03/18/17 23:00 04/17/17 22:59 03/19/17 21:27 0.5 MG Benzonatate (Tessalon Perles Cap) 100 mg Q8H PRN PO 03/19/17 00:00 04/18/17 00:00 03/21/17 08:03 100 MG Oseltamivir Phosphate (Tamiflu Cap) 75 mg BID PO 03/19/17 21:00 03/24/17 20:59 03/21/17 08:05 75 MG Menthol (Nice Von) 1 von PRN PRN VON 03/19/17 19:30 04/18/17 19:29 03/19/17 19:56 1 VON Levalbuterol (Xopenex 0.63 Mg/ 3 Ml Neb) 0.63 mg Q2R PRN INH 03/19/17 19:45 04/18/17 19:44 03/19/17 21:27 0.63 MG Gabapentin (Neurontin Cap) 100 mg TID PO 03/20/17 09:00 04/18/17 08:59 03/21/17 12:33 100 MG Alprazolam (Xanax Tab) 0.5 mg TID PO 03/20/17 21:00 04/19/17 20:59 03/21/17 13:49 0.5 MG Methylprednisolone Sodium Succinate 40 mg/Syringe 0.64 ml @ 1.5 mls/min Q8 IV 03/21/17 06:00 04/20/17 05:59 03/21/17 12:33 1.5 MLS/MIN Miscellaneous Information (Consult Glycemic Management Pharmacy) 1 ea UD PRN N/A 03/21/17 10:36 04/20/17 10:35 Albuterol (Ventolin Hfa Inhaler) 2 puffs Q4H PRN INH 03/21/17 10:45 04/20/17 10:44 Insulin Glargine (Lantus Solostar Pen) see protocol text BID SC 03/21/17 21:00 04/20/17 20:59 Insulin Aspart (novoLOG ASPART) SLIDING SCALE If C... TODAY@0000,0400 SC 03/22/17 00:00 03/22/17 04:01 I & O: 24-Hour Column 03/22/17 07:59 Intake Total 740 ml Balance 740 ml Vital Signs: Date Time Temp Pulse Resp B/P (MAP) Pulse Ox O2 Delivery O2 Flow Rate FiO2 03/21/17 16:31 36.7 102 22 161/90 (113) 97 Nasal Cannula 3.0 03/21/17 14:15 106 24 92 Nasal Cannula 3.0 03/21/17 12:00 Nasal Cannula 3.0 03/21/17 10:46 36.8 94 20 159/95 (116) 96 Nasal Cannula 2.0 03/21/17 08:00 97 Nasal Cannula 3.0 03/21/17 07:53 36.5 99 22 154/87 (109) 97 Nasal Cannula 3.0 03/21/17 07:39 36.6 94 20 143/82 (102) 96 Nasal Cannula 2.0 03/21/17 07:00 97 26 95 Nasal Cannula 2.0 03/21/17 04:19 36.7 98 20 141/82 (101) 98 Nasal Cannula 2.0 03/21/17 04:00 98 Nasal Cannula 2.0 03/21/17 02:27 99 26 93 Nasal Cannula 2.0 03/21/17 00:08 36.7 100 18 157/92 (113) 100 Nasal Cannula 2.0 03/21/17 00:00 100 Nasal Cannula 2.0 03/20/17 20:00 97 Nasal Cannula 2.0 03/20/17 19:34 105 26 96 Nasal Cannula 2.0 03/20/17 19:24 36.7 110 24 159/93 (115) 97 Nasal Cannula 2.0 Laboratory Results: Last 24 Hours Test 03/20/17 21:02 03/21/17 06:12 03/21/17 06:36 03/21/17 10:45 Bedside Glucose 195 mg/dl 213 mg/dl 294 mg/dl Hemoglobin 9.1 g/dL Hematocrit 29.8 % Iron Level 15 mcg/dl Total Iron Binding Capacity 371 mcg/dl Transferrin 266 mg/dl Transferrin % Saturation 4 % Ferritin 38.1 ng/ml Vitamin B12 Level 816 pg/mL Folate 16.79 ng/mL Test 03/21/17 16:06 Bedside Glucose 122 mg/dl
[2017-03-21] MEDS: AMITRIPTYLINE HCL 10 MG TAB PO SCH (20:03)
[2017-03-21] MEDS: RANITIDINE HCL 150 MG TAB PO SCH (20:04)
[2017-03-21] MEDS: INSULIN GLARGINE SOLOSTAR 100 UNITS/ML 3 ML PEN SC SCH (21:34)
[2017-03-21] MEDS: LEVALBUTEROL 0.63MG/3 ML NEB INH PRN (21:53)
[2017-03-22] VITALS (13 sets, daily range): BP systolic 151–174; BP diastolic 81–101; PULSE 80–106; TEMP 36.5–37.1; O2SAT 93–100
[2017-03-22] MEDS: IPRATROPIUM BROMIDE NEB SOLN 0.02% 2.5 ML VIAL INH SCH ×4 (01:45→19:49)
[2017-03-22] MEDS: LEVALBUTEROL 1.25MG/0.5ML NEB INH SCH ×4 (01:45→19:49)
[2017-03-22] MEDS: INSULIN ASPART 100 UNITS/ML 3 ML PEN SC SCH ×5 (04:06→20:41)
[2017-03-22] MEDS: METHYLPREDNISOLONE IV 40 MG in SYRINGE 0 ML IV SCH ×3 (05:44→20:44)
[2017-03-22 07:54] LABS: BASO % 0.2 %; BASO ABS # 0.02 K/uL (0-0.2); HEMATOCRIT 32.5 % (37-47); HEMOGLOBIN 9.8 g/dL (12.0-16.0); IG# 0.03 K/uL (0.00-0.02); LYMPH % 10.9 %; LYMPH ABS # 0.92 K/uL (1.2-3.4); MEAN CELL VOLUME 89.3 fL (80-100); MEAN CORPUSCULAR HEMOGLOBIN 26.9 pg (25-34); MEAN CORPUSCULAR HGB CONC 30.2 g/dl (32-36); MONO % 11.4 %; MONO ABS # 0.96 K/uL (0.11-0.59); NEUT % 77.1 %; NEUT ABS # 6.49 K/uL (1.4-6.5); PLATELET COUNT 329 K/uL (130-400); RED CELL DISTRIBUTION WIDTH CV 15.7 % (11.5-14.5); RED CELL DISTRIBUTION WIDTH SD 50.4 fL (36.4-46.3); WHITE BLOOD COUNT 8.42 K/uL (4.8-10.8)
[2017-03-22] MEDS: FERROUS SULFATE 325 MG TAB PO SCH ×3 (08:47→17:07)
[2017-03-22] MEDS: ASPIRIN 81 MG ECTAB PO SCH (08:47)
[2017-03-22] MEDS: CYANOCOBALAMIN 500 MCG TAB (VIT B-12) PO SCH (08:47)
[2017-03-22] MEDS: ATORVASTATIN 10 MG TAB PO SCH (08:47)
[2017-03-22] MEDS: MONTELUKAST SOD 10 MG TAB PO SCH (08:47)
[2017-03-22] MEDS: GUAIFENESIN 600 MG TABCR PO SCH ×2 (08:47→20:43)
[2017-03-22] MEDS: AMLODIPINE BESYLATE 5 MG TAB PO SCH (08:47)
[2017-03-22] MEDS: PANTOprazole SOD 40 MG TAB PO SCH (08:48)
[2017-03-22] MEDS: PRAMIPEXOLE DIHYDROCHLORIDE 0.5 MG TAB PO SCH ×3 (08:48→20:42)
[2017-03-22] MEDS: FLUTICASONE PROPIONATE NA SPR 16 GM BTL NAE SCH ×2 (08:48→20:45)
[2017-03-22] MEDS: OXYBUTYNIN CHLORIDE 5 MG TABCR PO SCH (08:48)
[2017-03-22] MEDS: OSELTAMIVIR PHOSPHATE 75 MG CAP PO SCH ×2 (08:48→20:43)
[2017-03-22] MEDS: GABAPENTIN 100 MG CAP PO SCH ×3 (08:49→20:42)
[2017-03-22] MEDS: INSULIN GLARGINE SOLOSTAR 100 UNITS/ML 3 ML PEN SC SCH ×2 (08:52→20:40)
[2017-03-22] MEDS: ENOXAPARIN 40 MG/0.4 ML SYR SC SCH (08:53)
[2017-03-22] MEDS: ALPRAZOLAM 0.5 MG TAB PO SCH ×3 (09:00→20:41)
--- NOTE | 2017-03-22 10:37 | Progress Note ---
Progress Note Date of Service Mar 22, 2017.
--- NOTE | 2017-03-22 10:38 | Progress Note ---
Medicine Progress Note Date & Time of Visit: Mar 22, 2017 at 10:37. Subjective seen resting in bed, comfortable states her breathing is about the same as yesterday, still has occasional dry cough denies other symptoms Objective Last 8 Hrs Date Time Temp Pulse Resp B/P (MAP) Pulse Ox O2 Delivery O2 Flow Rate FiO2 03/22/17 08:00 Room Air 03/22/17 07:27 36.6 88 20 154/92 (112) 96 Nasal Cannula 3.0 03/22/17 06:05 87 22 98 Nasal Cannula 3.0 03/22/17 04:00 36.5 101 22 174/101 (125) 93 101 166/89 (114) 03/22/17 04:00 CPAP Physical Exam: General- oriented x 3, not in distress, speaks in sentences with no effort Eyes- EOMI, anicteric Neck- supple, no JVD Lungs- scattered wheezing bilaterally, no rales Heart- regular rhythm; no murmur, no gallop, normal rate Abdomen- normal bowel sounds, soft, nontender Extremities- no pretibial edema, no calf tenderness Neuro- alert, oriented x 3; no gross focal deficits Skin- warm & dry Laboratory Results: Last 24 Hours Test 03/21/17 10:45 03/21/17 16:06 03/21/17 20:41 03/21/17 23:52 Bedside Glucose 294 mg/dl 122 mg/dl 234 mg/dl 193 mg/dl Test 03/22/17 03:49 03/22/17 03:50 03/22/17 06:49 03/22/17 07:16 Bedside Glucose 243 mg/dl 143 mg/dl Stool Occult Blood NEGATIVE White Blood Count 8.42 K/uL Red Blood Count 3.64 M/uL Hemoglobin 9.8 g/dL Hematocrit 32.5 % Mean Corpuscular Volume 89.3 fL Mean Corpuscular Hemoglobin 26.9 pg Mean Corpuscular Hemoglobin Concent 30.2 g/dl Platelet Count 329 K/uL Mean Platelet Volume 9.0 fL Neutrophils (%) (Auto) 77.1 % Lymphocytes (%) (Auto) 10.9 % Monocytes (%) (Auto) 11.4 % Eosinophils (%) (Auto) 0.0 % Basophils (%) (Auto) 0.2 % Neutrophils # (Auto) 6.49 K/uL Lymphocytes # (Auto) 0.92 K/uL Monocytes # (Auto) 0.96 K/uL Eosinophils # (Auto) 0.00 K/uL Basophils # (Auto) 0.02 K/uL RDW Standard Deviation 50.4 fL RDW Coefficient of Variation 15.7 % Immature Granulocyte % (Auto) 0.4 % Immature Granulocyte # (Auto) 0.03 K/uL Assessment & Plan EXACERBATION OF COPD Secondary to influenza A. No infiltrates on chest x-ray. ABG in ED on 3 L NC showed pO2 100, pCO2 47, HCO3 26, pH 7.35. Persistent severe dyspnea despite antiviral therapy, steroids, nebs. Oxygenating well on 2-3 L. No infiltrates on f/u chest x-ray. -- wheezing improving on 2-3 L NC continue Tamiflu, Methylprednisolone--> transition to Prednisone per Pulm, Nebs q6h monitor -- appreciate Pulm Input INFLUENZA A Continue 5-day course of oseltamivir. CHRONIC HYPOXIC RESPIRATORY FAILURE Home O2 for asthma / COPD. IRON DEFICIENCY ANEMIA Hgb 9.4 at time of admission; normocytic. Anemia is chronic with most hemoglobins 8-10 over past year. Has not had recent labs done here. - Fe 15 - FeSO4 increased to TID - last EGD/Colonoscopy in 2016: unremarkable needs further work up, possible Hematology referral as outpatient CHRONIC LEFT VENTRICULAR DIASTOLIC HEART FAILURE CXR: IMPRESSION: 1. Mild cardiomegaly without acute process. 2. Right greater than left bullous upper lobe predominant emphysema. -- euvolemic HYPERTENSION Continue amlodipine. DM TYPE 2 Usually fairly well-controlled. Hgb A1C = 6.3. Hold metformin during hospital stay. Lantus / NovoLog per protocol. -- Pharmacy Glycemic Control VTE PROPHYLAXIS SQ enoxaparin. Ambulate. DISPOSITION Expected discharge to home tomorrow Already uses oxygen supplement at home Internal Medicine follow-up with Dr. Martina Jay. . Current Inpatient Medications: Current Inpatient Medications Medications (Trade) Dose Ordered Sig/Allison Route Start Time Stop Time Status Last Admin Dose Admin Guaifenesin (Mucinex Contr Rel Tab) 600 mg Q12 PO 03/19/17 09:00 04/18/17 08:59 03/22/17 08:47 600 MG Ioversol (Optiray 320) 100 ml UD PRN IV 03/18/17 21:30 03/22/17 21:29 Enoxaparin Sodium (Lovenox Inj) 40 mg Q24H SC 03/19/17 09:00 04/18/17 08:59 03/22/17 08:53 40 MG Acetaminophen (Tylenol Tab) 650 mg Q4H PRN PO 03/18/17 22:15 04/17/17 22:14 Insulin Aspart (novoLOG ASPART) SLIDING SCALE If C... ACHS SC 03/19/17 07:00 04/18/17 06:59 03/22/17 08:51 6 UNITS Glucose (Glucose 40% Gel) 15-30 GRAMS 15 GRAMS... UD PRN PO 03/18/17 22:15 04/17/17 22:14 Glucose (Glucose Chew Tab) 4-8 Tablets 4 Tabl... UD PRN PO 03/18/17 22:15 04/17/17 22:14 Dextrose (Dextrose 50% 50ML Syringe) 25-50ML OF 50% DW IV FOR... UD PRN IV 03/18/17 22:15 04/17/17 22:14 Glucagon (Glucagon Inj) 1 mg UD PRN SQ 03/18/17 22:15 04/17/17 22:14 Amitriptyline HCl (Elavil Tab) 10 mg HS PO 03/19/17 21:00 04/18/17 20:59 03/21/17 20:03 10 MG Amlodipine Besylate (Norvasc Tab) 5 mg DAILY PO 03/19/17 09:00 04/18/17 08:59 03/22/17 08:47 5 MG Aspirin (Ecotrin Tab) 81 mg DAILY PO 03/19/17 09:00 04/18/17 08:59 03/22/17 08:47 81 MG Atorvastatin Calcium (Lipitor Tab) 10 mg QAM PO 03/19/17 09:00 04/18/17 08:59 03/22/17 08:47 10 MG Cyclobenzaprine HCl (Flexeril Tab) 10 mg BID PRN PO 03/18/17 22:15 04/17/17 22:14 03/19/17 00:41 10 MG Fluticasone Propionate (Flonase Nasal [place]) 2 sprays BID LIDYA 03/19/17 09:00 04/18/17 08:59 03/22/17 08:48 2 SPRAYS Acetaminophen/ Hydrocodone Bitart ([place] 5/325 Tab) 1 tab Q6H PRN PO 03/18/17 22:15 04/01/17 22:14 03/20/17 21:27 1 TAB Montelukast Sodium (Singulair Tab) 10 mg DAILY PO 03/19/17 09:00 04/18/17 08:59 03/22/17 08:47 10 MG Oxybutynin Chloride (Ditropan-Xl Tab) 5 mg DAILY PO 03/19/17 09:00 04/18/17 08:59 03/22/17 08:48 5 MG Pantoprazole Sodium (Protonix Tab) 40 mg QAM PO 03/19/17 09:00 04/18/17 08:59 03/22/17 08:48 40 MG Pramipexole Dihydrochloride (miraPEX TAB) 0.5 mg TID PO 03/19/17 09:00 04/18/17 08:59 03/22/17 08:48 0.5 MG Ranitidine HCl (zANTac TAB) 300 mg HS PO 03/19/17 21:00 04/18/17 20:59 03/21/17 20:04 300 MG Cyanocobalamin (Vitamin B-12 Tab) 1,000 mcg DAILY PO 03/19/17 09:00 04/18/17 08:59 03/22/17 08:47 1,000 MCG Ferrous Sulfate (Feosol Tab) 325 mg TIDM PO 03/19/17 07:30 04/18/17 07:29 03/22/17 08:47 325 MG Prochlorperazine Edisylate 5 mg/ Syringe 5 ml @ 5 mls/min Q6H PRN IV 03/18/17 22:15 04/17/17 22:14 Morphine Sulfate (MoRPHine SULFATE INJ) 4 mg Q6H PRN IV 03/18/17 22:15 04/01/17 22:14 Ipratropium [place] (Atrovent 0.02% 0.5MG/2.5ML Neb) 0.5 mg Q6R INH 03/19/17 03:00 04/18/17 02:59 03/22/17 06:05 0.5 MG Levalbuterol (Xopenex 1.25MG/ 0.5ML Neb) 1.25 mg Q6R INH 03/19/17 03:00 04/18/17 02:59 03/22/17 06:05 1.25 MG Ipratropium [place] (Atrovent 0.02% 0.5MG/2.5ML Neb) 0.5 mg Q4H PRN INH 03/18/17 23:00 04/17/17 22:59 03/19/17 21:27 0.5 MG Benzonatate (Tessalon Perles Cap) 100 mg Q8H PRN PO 03/19/17 00:00 04/18/17 00:00 03/21/17 20:03 100 MG Oseltamivir Phosphate (Tamiflu Cap) 75 mg BID PO 03/19/17 21:00 03/24/17 20:59 03/22/17 08:48 75 MG Menthol (Nice Von) 1 von PRN PRN VON 03/19/17 19:30 04/18/17 19:29 03/19/17 19:56 1 VON Levalbuterol (Xopenex 0.63 Mg/ 3 Ml Neb) 0.63 mg Q2R PRN INH 03/19/17 19:45 04/18/17 19:44 03/21/17 21:53 0.63 MG Gabapentin (Neurontin Cap) 100 mg TID PO 03/20/17 09:00 04/18/17 08:59 03/22/17 08:49 100 MG Alprazolam (Xanax Tab) 0.5 mg TID PO 03/20/17 21:00 04/19/17 20:59 03/22/17 09:00 0.5 MG Methylprednisolone Sodium Succinate 40 mg/Syringe 0.64 ml @ 1.5 mls/min Q8 IV 03/21/17 06:00 04/20/17 05:59 03/22/17 05:44 1.5 MLS/MIN Miscellaneous Information (Consult Glycemic Management Pharmacy) 1 ea UD PRN N/A 03/21/17 10:36 04/20/17 10:35 Albuterol (Ventolin Hfa Inhaler) 2 puffs Q4H PRN INH 03/21/17 10:45 04/20/17 10:44 Insulin Glargine (Lantus Solostar Pen) see protocol text BID SC 03/21/17 21:00 04/20/17 20:59 03/22/17 08:52 10 UNITS
[2017-03-22] MEDS: ALBUTEROL HFA 8 GM INHALER INH PRN (11:31)
[2017-03-22] MEDS ORDERED: INSULIN GLARGINE SOLOSTAR 100 UNITS/ML 3 ML PEN SC ONE (13:15)
--- NOTE | 2017-03-22 13:15 | Pharmacy Progress Note ---
Pharmacy Glycemic Short Note 2 Date of Service Mar 22, 2017. Outpatient Anti-diabetic Regimen: * Metformin 1000mg PO BID * Glimepiride 0.5mg PO daily if needed for hyperglycemia w/ prednisone * A1c = 6.3% 03/18/17 ASSESSMENT: 03/22/17: * Patient remains on high-dose steroids and remains hyperglycemic today. * Will continue to give Lantus based on patient's BSGs. * Of note, pt should have rec'd 20 units Lantus this am, but only rec'd 10 units. Will give supplemental 10 units x1 dose now. * Expect that insulin needs will decrease as steroid is tapered, so will follow closely and adjust as needed. 03/21/17 * Ms Kaminski is a 61yo diabetic female admitted for COPD exacerbation. * Patient is experiencing hyperglycemia d/t high dose steroids. * Lantus increased to BID this morning (first dose given with lunch). Will give a larger dose at bedtime if needed, based on BSGs. * Novolog parameters tightened slightly this morning and additional accu-checks ordered for overnight. PLAN FOR INPATIENT GLYCEMIC CONTROL: * Basal insulin with LANTUS 10 units SQ BID * Give 20 units for BSG greater than 140mg/dL * Correctional Insulin with NOVOLOG per scale ACHS and 00,04 until hyperglycemia is resolved * Goal Range: Low 140 mg/dL - High 180 mg/dL * Correction Factor: 20 mg/dL/unit * Nutritional / Prandial insulin per carb ratio of 1 unit per 7 grams CHO consumed * Please note that the plan above was derived based on current level of insulin resistance and hospital stress. These recommendations are appropriate for inpatient admission only. Plan of care upon discharge will need to be reassessed to avoid potential outpatient hypo/hyperglycemia. Thank you.
--- NOTE | 2017-03-22 18:15 | Pulmonology Progress Note ---
Pulmonary Progress Note Date of Service Mar 22, 2017. Attending Dr. Gardiner Subjective The patient is improving slowly, she denies any chest pain at the moment, no shortness of breath, wheezing has been subsided. No stridor was reported. No events overnight. Objective 03/21/2017 physical exam revealed vital signs are stable, O2 saturation 93% on nasal cannula, minimal stridor, very faint wheezing bilaterally, heart examination S1-S2 regular rate and rhythm, abdomen is benign no edema. Neurologically she is intact. 03/22/2017 exam showed minimal stridor, no wheezing, scattered rhonchi bilaterally, S1-S2 regular rate and rhythm, no edema. No oral thrush. Assessment & Plan #1 COPD exacerbation. Gold level III, home O2 and steroid dependent. Grade C. #2 stridor related to vocal cord dysfunction. #3 morbid obesity with obstructive sleep apnea. #4 influenza A bronchitis. #5 deconditioning. Plan: #1 change Solu-Medrol to prednisone 40 mg by mouth twice a day in the morning, taper by 10 mg per dose every 4 days. to off. #2 continue with alprazolam. #3 bronchodilators. #4 complete the course of Tamiflu. #5 she will need a follow-up in the pulmonary clinic. #6 no need for bronchoscopy, I will hold off on any further intervention.. #7 patient can be discharged home in the morning. Thank you Data Medications: Current Inpatient Medications Medications (Trade) Dose Ordered Sig/Allison Route Start Time Stop Time Status Last Admin Dose Admin Guaifenesin (Mucinex Contr Rel Tab) 600 mg Q12 PO 03/19/17 09:00 04/18/17 08:59 03/22/17 08:47 600 MG Ioversol (Optiray 320) 100 ml UD PRN IV 03/18/17 21:30 03/22/17 21:29 Enoxaparin Sodium (Lovenox Inj) 40 mg Q24H SC 03/19/17 09:00 04/18/17 08:59 03/22/17 08:53 40 MG Acetaminophen (Tylenol Tab) 650 mg Q4H PRN PO 03/18/17 22:15 04/17/17 22:14 Insulin Aspart (novoLOG ASPART) SLIDING SCALE If C... ACHS SC 03/19/17 07:00 04/18/17 06:59 03/22/17 17:09 12 UNITS Glucose (Glucose 40% Gel) 15-30 GRAMS 15 GRAMS... UD PRN PO 03/18/17 22:15 04/17/17 22:14 Glucose (Glucose Chew Tab) 4-8 Tablets 4 Tabl... UD PRN PO 03/18/17 22:15 04/17/17 22:14 Dextrose (Dextrose 50% 50ML Syringe) 25-50ML OF 50% DW IV FOR... UD PRN IV 03/18/17 22:15 04/17/17 22:14 Glucagon (Glucagon Inj) 1 mg UD PRN SQ 03/18/17 22:15 04/17/17 22:14 Amitriptyline HCl (Elavil Tab) 10 mg HS PO 03/19/17 21:00 04/18/17 20:59 03/21/17 20:03 10 MG Amlodipine Besylate (Norvasc Tab) 5 mg DAILY PO 03/19/17 09:00 04/18/17 08:59 03/22/17 08:47 5 MG Aspirin (Ecotrin Tab) 81 mg DAILY PO 03/19/17 09:00 04/18/17 08:59 03/22/17 08:47 81 MG Atorvastatin Calcium (Lipitor Tab) 10 mg QAM PO 03/19/17 09:00 04/18/17 08:59 03/22/17 08:47 10 MG Cyclobenzaprine HCl (Flexeril Tab) 10 mg BID PRN PO 03/18/17 22:15 04/17/17 22:14 03/19/17 00:41 10 MG Fluticasone Propionate (Flonase Nasal [place]) 2 sprays BID LIDYA 03/19/17 09:00 04/18/17 08:59 03/22/17 08:48 2 SPRAYS Acetaminophen/ Hydrocodone Bitart ([place] 5/325 Tab) 1 tab Q6H PRN PO 03/18/17 22:15 04/01/17 22:14 03/20/17 21:27 1 TAB Montelukast Sodium (Singulair Tab) 10 mg DAILY PO 03/19/17 09:00 04/18/17 08:59 03/22/17 08:47 10 MG Oxybutynin Chloride (Ditropan-Xl Tab) 5 mg DAILY PO 03/19/17 09:00 04/18/17 08:59 03/22/17 08:48 5 MG Pantoprazole Sodium (Protonix Tab) 40 mg QAM PO 03/19/17 09:00 04/18/17 08:59 03/22/17 08:48 40 MG Pramipexole Dihydrochloride (miraPEX TAB) 0.5 mg TID PO 03/19/17 09:00 04/18/17 08:59 03/22/17 13:08 0.5 MG Ranitidine HCl (zANTac TAB) 300 mg HS PO 03/19/17 21:00 04/18/17 20:59 03/21/17 20:04 300 MG Cyanocobalamin (Vitamin B-12 Tab) 1,000 mcg DAILY PO 03/19/17 09:00 04/18/17 08:59 03/22/17 08:47 1,000 MCG Ferrous Sulfate (Feosol Tab) 325 mg TIDM PO 03/19/17 07:30 04/18/17 07:29 03/22/17 17:07 325 MG Prochlorperazine Edisylate 5 mg/ Syringe 5 ml @ 5 mls/min Q6H PRN IV 03/18/17 22:15 04/17/17 22:14 Morphine Sulfate (MoRPHine SULFATE INJ) 4 mg Q6H PRN IV 03/18/17 22:15 04/01/17 22:14 Ipratropium [place] (Atrovent 0.02% 0.5MG/2.5ML Neb) 0.5 mg Q6R INH 03/19/17 03:00 04/18/17 02:59 03/22/17 14:24 0.5 MG Levalbuterol (Xopenex 1.25MG/ 0.5ML Neb) 1.25 mg Q6R INH 03/19/17 03:00 04/18/17 02:59 03/22/17 14:25 1.25 MG Ipratropium [place] (Atrovent 0.02% 0.5MG/2.5ML Neb) 0.5 mg Q4H PRN INH 03/18/17 23:00 04/17/17 22:59 03/19/17 21:27 0.5 MG Benzonatate (Tessalon Perles Cap) 100 mg Q8H PRN PO 03/19/17 00:00 04/18/17 00:00 03/21/17 20:03 100 MG Oseltamivir Phosphate (Tamiflu Cap) 75 mg BID PO 03/19/17 21:00 03/24/17 20:59 03/22/17 08:48 75 MG Menthol (Nice Von) 1 von PRN PRN VON 03/19/17 19:30 04/18/17 19:29 03/19/17 19:56 1 VON Levalbuterol (Xopenex 0.63 Mg/ 3 Ml Neb) 0.63 mg Q2R PRN INH 03/19/17 19:45 04/18/17 19:44 03/21/17 21:53 0.63 MG Gabapentin (Neurontin Cap) 100 mg TID PO 03/20/17 09:00 04/18/17 08:59 03/22/17 13:08 100 MG Alprazolam (Xanax Tab) 0.5 mg TID PO 03/20/17 21:00 04/19/17 20:59 03/22/17 13:08 0.5 MG Methylprednisolone Sodium Succinate 40 mg/Syringe 0.64 ml @ 1.5 mls/min Q8 IV 03/21/17 06:00 04/20/17 05:59 03/22/17 13:08 1.5 MLS/MIN Miscellaneous Information (Consult Glycemic Management Pharmacy) 1 ea UD PRN N/A 03/21/17 10:36 04/20/17 10:35 Albuterol (Ventolin Hfa Inhaler) 2 puffs Q4H PRN INH 03/21/17 10:45 04/20/17 10:44 03/22/17 11:31 2 PUFFS Insulin Glargine (Lantus Solostar Pen) see protocol text BID SC 03/21/17 21:00 04/20/17 20:59 03/22/17 08:52 10 UNITS I & O: 24-Hour Column 03/23/17 08:00 Intake Total 560 ml Balance 560 ml Vital Signs: Date Time Temp Pulse Resp B/P (MAP) Pulse Ox O2 Delivery O2 Flow Rate FiO2 03/22/17 15:32 36.6 99 20 153/81 (105) 100 Nasal Cannula 3.0 03/22/17 14:26 99 20 100 Nasal Cannula 3.0 03/22/17 12:00 Room Air 03/22/17 11:06 36.8 88 20 164/90 (114) 99 Nasal Cannula 3.0 161/88 (112) 03/22/17 08:00 Room Air 03/22/17 07:27 36.6 88 20 154/92 (112) 96 Nasal Cannula 3.0 03/22/17 06:05 87 22 98 Nasal Cannula 3.0 03/22/17 04:00 36.5 101 22 174/101 (125) 93 101 166/89 (114) 03/22/17 04:00 CPAP 03/22/17 01:45 80 22 98 BiPAP/CPAP 3.0 03/22/17 01:45 80 98 3.0 03/22/17 00:02 36.8 91 20 156/86 (109) 97 03/22/17 00:00 Nasal Cannula 4.0 03/21/17 23:34 86 98 3.0 03/21/17 21:53 98 26 97 Nasal Cannula 3.0 03/21/17 20:34 36.7 97 22 147/76 (99) 98 Nasal Cannula 3.0 03/21/17 20:00 Nasal Cannula 2.0 03/21/17 19:28 94 20 96 Nasal Cannula 3.0 Laboratory Results: Last 24 Hours Test 03/21/17 20:41 03/21/17 23:52 03/22/17 03:49 03/22/17 03:50 Bedside Glucose 234 mg/dl 193 mg/dl 243 mg/dl Stool Occult Blood NEGATIVE Test 03/22/17 06:49 03/22/17 07:16 03/22/17 10:58 03/22/17 16:18 Bedside Glucose 143 mg/dl 236 mg/dl 271 mg/dl White Blood Count 8.42 K/uL Red Blood Count 3.64 M/uL Hemoglobin 9.8 g/dL Hematocrit 32.5 % Mean Corpuscular Volume 89.3 fL Mean Corpuscular Hemoglobin 26.9 pg Mean Corpuscular Hemoglobin Concent 30.2 g/dl Platelet Count 329 K/uL Mean Platelet Volume 9.0 fL Neutrophils (%) (Auto) 77.1 % Lymphocytes (%) (Auto) 10.9 % Monocytes (%) (Auto) 11.4 % Eosinophils (%) (Auto) 0.0 % Basophils (%) (Auto) 0.2 % Neutrophils # (Auto) 6.49 K/uL Lymphocytes # (Auto) 0.92 K/uL Monocytes # (Auto) 0.96 K/uL Eosinophils # (Auto) 0.00 K/uL Basophils # (Auto) 0.02 K/uL RDW Standard Deviation 50.4 fL RDW Coefficient of Variation 15.7 % Immature Granulocyte % (Auto) 0.4 % Immature Granulocyte # (Auto) 0.03 K/uL
[2017-03-22] MEDS: RANITIDINE HCL 150 MG TAB PO SCH (20:43)
[2017-03-22] MEDS: BENZONATATE 100MG CAP PO PRN (20:44)
[2017-03-22] MEDS: AMITRIPTYLINE HCL 10 MG TAB PO SCH (20:44)
[2017-03-23 03:34] VITALS: BP 156/83; PULSE 112; TEMP 36.7; O2SAT 99
[2017-03-23 07:23] VITALS: BP 136/75; PULSE 88; TEMP 36.6; O2SAT 100
[2017-03-23] MEDS: INSULIN ASPART 100 UNITS/ML 3 ML PEN SC SCH ×2 (08:50→11:52)
[2017-03-23] MEDS: ALBUTEROL HFA 8 GM INHALER INH PRN (08:52)
[2017-03-23] MEDS: FLUTICASONE PROPIONATE NA SPR 16 GM BTL NAE SCH (08:52)
[2017-03-23] MEDS: BENZONATATE 100MG CAP PO PRN (08:52)
[2017-03-23] MEDS: CYANOCOBALAMIN 500 MCG TAB (VIT B-12) PO SCH (08:53)
[2017-03-23] MEDS: GUAIFENESIN 600 MG TABCR PO SCH (08:53)
[2017-03-23] MEDS: ATORVASTATIN 10 MG TAB PO SCH (08:53)
[2017-03-23] MEDS: AMLODIPINE BESYLATE 5 MG TAB PO SCH (08:53)
[2017-03-23] MEDS: MONTELUKAST SOD 10 MG TAB PO SCH (08:53)
[2017-03-23] MEDS: FERROUS SULFATE 325 MG TAB PO SCH ×2 (08:53→10:59)
[2017-03-23] MEDS: GABAPENTIN 100 MG CAP PO SCH ×2 (08:53→13:07)
[2017-03-23] MEDS: OXYBUTYNIN CHLORIDE 5 MG TABCR PO SCH (08:53)
[2017-03-23] MEDS: ASPIRIN 81 MG ECTAB PO SCH (08:53)
[2017-03-23] MEDS: OSELTAMIVIR PHOSPHATE 75 MG CAP PO SCH (08:53)
[2017-03-23] MEDS: ENOXAPARIN 40 MG/0.4 ML SYR SC SCH (08:54)
[2017-03-23] MEDS: PANTOprazole SOD 40 MG TAB PO SCH (08:54)
[2017-03-23] MEDS: PRAMIPEXOLE DIHYDROCHLORIDE 0.5 MG TAB PO SCH ×2 (08:54→13:07)
[2017-03-23] MEDS: ALPRAZOLAM 0.5 MG TAB PO SCH ×2 (08:56→13:06)
[2017-03-23] MEDS ORDERED: INSULIN GLARGINE SOLOSTAR 100 UNITS/ML 3 ML PEN SC SCH (09:00)
[2017-03-23 10:54] VITALS: BP 146/96; PULSE 90; TEMP 36.6; O2SAT 99
--- NOTE | 2017-03-23 12:56 | Pulmonology Progress Note ---
Pulmonary Progress Note Date of Service Mar 23, 2017. Attending Dr. Gardiner Subjective The patient improved from respiratory standpoint, she denies any difficulty breathing, no events overnight, no wheezing, cough has subsided. She continue to use oxygen. She does not have CPAP at home. Objective 03/21/2017 physical exam revealed vital signs are stable, O2 saturation 93% on nasal cannula, minimal stridor, very faint wheezing bilaterally, heart examination S1-S2 regular rate and rhythm, abdomen is benign no edema. Neurologically she is intact. 03/22/2017 exam showed minimal stridor, no wheezing, scattered rhonchi bilaterally, S1-S2 regular rate and rhythm, no edema. No oral thrush. 03/23/2017. Examination showed stable vital signs, also saturation 95%, distant breath sounds bilaterally, no wheezing, no stridor, S1-S2 regular rate and rhythm, no edema. Assessment & Plan #1 COPD exacerbation. Gold level III, home O2 and steroid dependent. Grade C. improved #2 stridor related to vocal cord dysfunction. Resolved #3 morbid obesity with obstructive sleep apnea. #4 influenza A bronchitis. #5 deconditioning. Plan: #1 change Solu-Medrol to prednisone 40 mg by mouth twice a day in the morning, taper by 10 mg per dose every 4 days. . #2 continue with alprazolam. #3 bronchodilators. #4 completed the course of Tamiflu. #5 she will need a follow-up in the pulmonary clinic. #6 no need for bronchoscopy, I will hold off on any further intervention.. #7 patient can be discharged home in the morning. #8 follow-up with Dr. Mckeon as an outpatient. Thank you Data Medications: Current Inpatient Medications Medications (Trade) Dose Ordered Sig/Allison Route Start Time Stop Time Status Last Admin Dose Admin Guaifenesin (Mucinex Contr Rel Tab) 600 mg Q12 PO 03/19/17 09:00 04/18/17 08:59 03/23/17 08:53 600 MG Enoxaparin Sodium (Lovenox Inj) 40 mg Q24H SC 03/19/17 09:00 04/18/17 08:59 03/23/17 08:54 40 MG Acetaminophen (Tylenol Tab) 650 mg Q4H PRN PO 03/18/17 22:15 04/17/17 22:14 Insulin Aspart (novoLOG ASPART) SLIDING SCALE If C... ACHS SC 03/19/17 07:00 04/18/17 06:59 03/23/17 11:52 6 UNITS Glucose (Glucose 40% Gel) 15-30 GRAMS 15 GRAMS... UD PRN PO 03/18/17 22:15 04/17/17 22:14 Glucose (Glucose Chew Tab) 4-8 Tablets 4 Tabl... UD PRN PO 03/18/17 22:15 04/17/17 22:14 Dextrose (Dextrose 50% 50ML Syringe) 25-50ML OF 50% DW IV FOR... UD PRN IV 03/18/17 22:15 04/17/17 22:14 Glucagon (Glucagon Inj) 1 mg UD PRN SQ 03/18/17 22:15 04/17/17 22:14 Amitriptyline HCl (Elavil Tab) 10 mg HS PO 03/19/17 21:00 04/18/17 20:59 03/22/17 20:44 10 MG Amlodipine Besylate (Norvasc Tab) 5 mg DAILY PO 03/19/17 09:00 04/18/17 08:59 03/23/17 08:53 5 MG Aspirin (Ecotrin Tab) 81 mg DAILY PO 03/19/17 09:00 04/18/17 08:59 03/23/17 08:53 81 MG Atorvastatin Calcium (Lipitor Tab) 10 mg QAM PO 03/19/17 09:00 04/18/17 08:59 03/23/17 08:53 10 MG Cyclobenzaprine HCl (Flexeril Tab) 10 mg BID PRN PO 03/18/17 22:15 04/17/17 22:14 03/19/17 00:41 10 MG Fluticasone Propionate (Flonase Nasal [place]) 2 sprays BID LIDYA 03/19/17 09:00 04/18/17 08:59 03/23/17 08:52 2 SPRAYS Acetaminophen/ Hydrocodone Bitart ([place] 5/325 Tab) 1 tab Q6H PRN PO 03/18/17 22:15 04/01/17 22:14 03/20/17 21:27 1 TAB Montelukast Sodium (Singulair Tab) 10 mg DAILY PO 1/21/18 09:00 04/18/17 08:59 03/23/17 08:53 10 MG Oxybutynin Chloride (Ditropan-Xl Tab) 5 mg DAILY PO 03/19/17 09:00 04/18/17 08:59 03/23/17 08:53 5 MG Pantoprazole Sodium (Protonix Tab) 40 mg QAM PO 03/19/17 09:00 04/18/17 08:59 03/23/17 08:54 40 MG Pramipexole Dihydrochloride (miraPEX TAB) 0.5 mg TID PO 03/19/17 09:00 04/18/17 08:59 03/23/17 08:54 0.5 MG Ranitidine HCl (zANTac TAB) 300 mg HS PO 03/19/17 21:00 04/18/17 20:59 03/22/17 20:43 300 MG Cyanocobalamin (Vitamin B-12 Tab) 1,000 mcg DAILY PO 03/19/17 09:00 04/18/17 08:59 03/23/17 08:53 1,000 MCG Ferrous Sulfate (Feosol Tab) 325 mg TIDM PO 03/19/17 07:30 04/18/17 07:29 03/23/17 10:59 325 MG Prochlorperazine Edisylate 5 mg/ Syringe 5 ml @ 5 mls/min Q6H PRN IV 03/18/17 22:15 04/17/17 22:14 Morphine Sulfate (MoRPHine SULFATE INJ) 4 mg Q6H PRN IV 03/18/17 22:15 04/01/17 22:14 Ipratropium [place] (Atrovent 0.02% 0.5MG/2.5ML Neb) 0.5 mg Q4H PRN INH 03/18/17 23:00 04/17/17 22:59 03/19/17 21:27 0.5 MG Benzonatate (Tessalon Perles Cap) 100 mg Q8H PRN PO 03/19/17 00:00 04/18/17 00:00 03/23/17 08:52 100 MG Oseltamivir Phosphate (Tamiflu Cap) 75 mg BID PO 03/19/17 21:00 03/24/17 20:59 03/23/17 08:53 75 MG Menthol (Nice Von) 1 von PRN PRN VON 03/19/17 19:30 04/18/17 19:29 03/19/17 19:56 1 VON Levalbuterol (Xopenex 0.63 Mg/ 3 Ml Neb) 0.63 mg Q2R PRN INH 03/19/17 19:45 04/18/17 19:44 03/21/17 21:53 0.63 MG Gabapentin (Neurontin Cap) 100 mg TID PO 03/20/17 09:00 04/18/17 08:59 03/23/17 08:53 100 MG Alprazolam (Xanax Tab) 0.5 mg TID PO 03/20/17 21:00 04/19/17 20:59 03/23/17 08:56 0.5 MG Miscellaneous Information (Consult Glycemic Management Pharmacy) 1 ea UD PRN N/A 03/21/17 10:36 04/20/17 10:35 Albuterol (Ventolin Hfa Inhaler) 2 puffs Q4H PRN INH 03/21/17 10:45 04/20/17 10:44 03/23/17 08:52 2 PUFFS Prednisone (PredniSONE TAB) 40 mg BID PO 03/23/17 09:00 04/22/17 08:59 03/23/17 08:52 40 MG Insulin Glargine (Lantus Solostar Pen) 30 units QAM SC 03/23/17 09:00 04/22/17 08:59 03/23/17 08:51 30 UNITS Vital Signs: Date Time Temp Pulse Resp B/P (MAP) Pulse Ox O2 Delivery O2 Flow Rate FiO2 03/23/17 10:54 36.6 90 20 146/96 (113) 99 Nasal Cannula 3.0 03/23/17 08:00 Room Air 03/23/17 07:23 36.6 88 20 136/75 (95) 100 Nasal Cannula 3.0 03/23/17 04:00 CPAP 03/23/17 03:34 36.7 112 20 156/83 (107) 99 3.0 03/22/17 23:59 CPAP 03/22/17 23:49 37.1 97 20 151/83 (105) 99 03/22/17 23:30 94 98 3.0 03/22/17 22:06 106 97 3.0 03/22/17 20:16 36.8 98 22 156/88 (110) 98 Nasal Cannula 3.0 03/22/17 20:00 Nasal Cannula 3.0 03/22/17 19:50 100 20 95 Nasal Cannula 3.0 03/22/17 16:00 Nasal Cannula 3.0 03/22/17 15:32 36.6 99 20 153/81 (105) 100 Nasal Cannula 3.0 03/22/17 14:26 99 20 100 Nasal Cannula 3.0 Laboratory Results: Last 24 Hours Test 03/22/17 16:18 03/22/17 19:57 03/23/17 06:50 03/23/17 10:53 Bedside Glucose 271 mg/dl 268 mg/dl 169 mg/dl 101 mg/dl
--- NOTE | 2017-03-23 14:19 | Pharmacy Progress Note ---
Pharmacy Glycemic Short Note 2 Date of Service Mar 23, 2017. Outpatient Anti-diabetic Regimen: * Metformin 1000mg PO BID * Glimepiride 0.5mg PO daily if needed for hyperglycemia w/ prednisone * A1c = 6.3% 03/18/17 ASSESSMENT: 03/23/17: * Steroids have been significantly reduced today (SoluMedrol 40mg IV q8h --> Prednisone 40mg PO BID). * Will move to once-daily Lantus at a slightly lower dose than was given yesterday. Will also loosen Novolog parameters slightly, as patient is expected to require less prandial coverage with lower steroid doses. 03/22/17 * Patient remains on high-dose steroids and remains hyperglycemic today. * Will continue to give Lantus based on patient's BSGs. * Of note, pt should have rec'd 20 units Lantus this am, but only rec'd 10 units. Will give supplemental 10 units x1 dose now. * Expect that insulin needs will decrease as steroid is tapered, so will follow closely and adjust as needed. 03/21/17 * Ms Kaminski is a 61yo diabetic female admitted for COPD exacerbation. * Patient is experiencing hyperglycemia d/t high dose steroids. * Lantus increased to BID this morning (first dose given with lunch). Will give a larger dose at bedtime if needed, based on BSGs. * Novolog parameters tightened slightly this morning and additional accu-checks ordered for overnight. PLAN FOR INPATIENT GLYCEMIC CONTROL: * Basal insulin with LANTUS 30 units SQ qAM * Correctional Insulin with NOVOLOG per scale ACHS * Goal Range: Low 140 mg/dL - High 180 mg/dL * Correction Factor: 25 mg/dL/unit * Nutritional / Prandial insulin per carb ratio of 1 unit per 9 grams CHO consumed DISCHARGE PLANNING: * Patient's A1c indicates adequate glycemic control as an outpatient. * Expect that patient may be able to resume home regimen on discharge. * Patient may require additional coverage if she will be discharged on steroids. * Please note that the plan above was derived based on current level of insulin resistance and hospital stress. These recommendations are appropriate for inpatient admission only. Plan of care upon discharge will need to be reassessed to avoid potential outpatient hypo/hyperglycemia. Thank you.
[2017-03-23 15:54] VITALS: BP 150/83; PULSE 99; TEMP 36.7; O2SAT 96
[2017-03-23 16:31] VITALS: BP 150/83; PULSE 99; TEMP 36.7; O2SAT 96
[2017-03-23] MEDS ORDERED: GFNSR600 PO (16:57)
[2017-03-23] MEDS ORDERED: PRED10TA PO (16:57)
[2017-03-23] MEDS ORDERED: XNX5 PO (16:57)
[2017-03-23] MEDS ORDERED: FRRS300 PO (16:57)
--- NOTE | 2017-03-23 17:02 | Discharge Instructions ---
Discharge Instructions Date of Service Mar 23, 2017. Admission Reason for Admission: Copd Exacerbation Discharge Discharge Diagnosis / Problem: COPD EXACERBATION, INFLUENZA A Discharge Goals Goal(s): Diagnostic testing, Therapeutic intervention Activity Recommendations Activity Limitations: as noted below (NO HEAVY EXERTION UNTIL RE-EVALUATED BY YOUR PRIMARY CARE PHYSICIAN) Lifting Limitations: until after follow-up appointment Exercise/Sports Limitations: until after follow-up appointment . Instructions / Follow-Up Instructions / Follow-Up PLEASE REVIEW YOUR NEW MEDICATION LIST AND FOLLOW INSTRUCTIONS CAREFULLY. CALL 911 IF WITH WORSENING SHORTNESS OF BREATH. CALL PRIMARY CARE PHYSICIAN OR RETURN TO THE ER IF WITH INCREASING COUGH, FEVER/ CHILLS, WEAKNESS. FOLLOW UP WITH DR. CUNHA ON Monday03/28/17 AT 1045AM. FOLLOW UP WITH PRODUCE DEPARTMENT MANAGER NEXT WEEK SCHEDULED. Current Hospital Diet Patient's current hospital diet: Diabetes Type 2 Diet, Low Lactose Diet Discharge Diet Recommended Diet: AHA Diet (Heart Healthy), Diabetes Type 2 Diet Procedures Procedures Performed: CHEST XRAY Pending Studies Studies pending at discharge: no Laboratory Results Hemoglobin A1c Test 03/18/17 19:45 Range/Units Estimated Average Glucose 134 mg/dl Hemoglobin A1c 6.3 H 4.5-5.6 % Medical Emergencies . Who to Call and When: Medical Emergencies: If at any time you feel your situation is an emergency, please call 911 immediately. . Non-Emergent Contact Non-Emergency issues call your: Primary Care Provider, Diamond Grader Call Non-Emergent contact if: you have a fever, you have any medication questions . . "Provider Documentation" section prepared by Rene Murillo. . VTE Core Measure Inpt VTE Proph given/why not?: Enoxaparin (Lovenox)[facility] Drug Monitoring Program Search Results: patient reviewed within database, no issues identified
--- NOTE | 2017-03-23 17:08 | Progress Note ---
Medicine Progress Note Date & Time of Visit: Mar 23, 2017 at 16:32. Subjective patient seen resting in bed, comfortable states she feels much better today cough is much less no dyspnea back to 3 L NC denies any symptoms states she is ready and would like to be discharged today Objective Last 8 Hrs Date Time Temp Pulse Resp B/P (MAP) Pulse Ox O2 Delivery O2 Flow Rate FiO2 03/23/17 15:54 36.7 99 20 150/83 (105) 96 Nasal Cannula 2.0 03/23/17 12:00 Room Air 03/23/17 10:54 36.6 90 20 146/96 (113) 99 Nasal Cannula 3.0 Physical Exam: General- oriented x 3, not in distress, speaks in sentences with no effort Eyes- anicteric Neck- no JVD Lungs- very faint wheezing bilaterally Heart- regular rhythm; no murmur, no gallop, normal rate Abdomen- normal bowel sounds, soft, nontender Extremities- no pretibial edema, no calf tenderness Neuro- alert, oriented x 3; no gross focal deficits Skin- warm & dry Laboratory Results: Last 24 Hours Test 03/22/17 19:57 03/23/17 06:50 03/23/17 10:53 Bedside Glucose 268 mg/dl 169 mg/dl 101 mg/dl Assessment & Plan EXACERBATION OF COPD Secondary to influenza A. No infiltrates on chest x-ray. No infiltrates on f/u chest x-ray. -- gradually improved with Tamiflu, IV Steroids, Nebs weaned off from Bipap to usual 3 L via nasal cannula -- Pulmonary consulted -- complete 5 day course of Tamiflu continue slow taper of Prednisone starting at 40mg BID, until back to usual 10mg po daily continue usual bronchodilators -- ff up with Pulmonary as scheduled INFLUENZA A -- completed 5-day course of oseltamivir. CHRONIC HYPOXIC RESPIRATORY FAILURE back to usual 3L Home O2 for asthma / COPD. IRON DEFICIENCY ANEMIA Hgb 9.4 at time of admission; normocytic. Anemia is chronic with most hemoglobins 8-10 over past year. - Fe 15 - FeSO4 to BID - last EGD/Colonoscopy in 2016: unremarkable needs further work up, possible Hematology referral as outpatient CHRONIC LEFT VENTRICULAR DIASTOLIC HEART FAILURE CXR: IMPRESSION: 1. Mild cardiomegaly without acute process. 2. Right greater than left bullous upper lobe predominant emphysema. -- euvolemic HYPERTENSION Continue amlodipine. DM TYPE 2 Usually fairly well-controlled. Hgb A1C = 6.3. -- continue Metformin VTE PROPHYLAXIS SQ enoxaparin. Ambulate. DISPOSITION d/c home ff up with Dr. Jay on ff up with Pulmonary next week consider referral to Hematology for Anemia Current Inpatient Medications: Current Inpatient Medications Medications (Trade) Dose Ordered Sig/[place] Route Start Time Stop Time Status Last Admin Dose Admin Guaifenesin (Mucinex Contr Rel Tab) 600 mg Q12 PO 03/19/17 09:00 04/18/17 08:59 03/23/17 08:53 600 MG Enoxaparin Sodium (Lovenox Inj) 40 mg Q24H SC 03/19/17 09:00 04/18/17 08:59 03/23/17 08:54 40 MG Acetaminophen (Tylenol Tab) 650 mg Q4H PRN PO 03/18/17 22:15 04/17/17 22:14 Insulin Aspart (novoLOG ASPART) SLIDING SCALE If C... ACHS SC 03/19/17 07:00 04/18/17 06:59 03/23/17 11:52 6 UNITS Glucose (Glucose 40% Gel) 15-30 GRAMS 15 GRAMS... UD PRN PO 03/18/17 22:15 04/17/17 22:14 Glucose (Glucose Chew Tab) 4-8 Tablets 4 Tabl... UD PRN PO 03/18/17 22:15 04/17/17 22:14 Dextrose (Dextrose 50% 50ML Syringe) 25-50ML OF 50% DW IV FOR... UD PRN IV 03/18/17 22:15 04/17/17 22:14 Glucagon (Glucagon Inj) 1 mg UD PRN SQ 03/18/17 22:15 04/17/17 22:14 Amitriptyline HCl (Elavil Tab) 10 mg HS PO 03/19/17 21:00 04/18/17 20:59 03/22/17 20:44 10 MG Amlodipine Besylate (Norvasc Tab) 5 mg DAILY PO 03/19/17 09:00 04/18/17 08:59 03/23/17 08:53 5 MG Aspirin (Ecotrin Tab) 81 mg DAILY PO 1/21/18 09:00 04/18/17 08:59 03/23/17 08:53 81 MG Atorvastatin Calcium (Lipitor Tab) 10 mg QAM PO 03/19/17 09:00 04/18/17 08:59 03/23/17 08:53 10 MG Cyclobenzaprine HCl (Flexeril Tab) 10 mg BID PRN PO 03/18/17 22:15 04/17/17 22:14 03/19/17 00:41 10 MG Fluticasone Propionate (Flonase Nasal [place]) 2 sprays BID LIDYA 03/19/17 09:00 04/18/17 08:59 03/23/17 08:52 2 SPRAYS Acetaminophen/ Hydrocodone Bitart (Rice 5/325 Tab) 1 tab Q6H PRN PO 03/18/17 22:15 04/01/17 22:14 03/20/17 21:27 1 TAB Montelukast Sodium (Singulair Tab) 10 mg DAILY PO 03/19/17 09:00 04/18/17 08:59 03/23/17 08:53 10 MG Oxybutynin Chloride (Ditropan-Xl Tab) 5 mg DAILY PO 03/19/17 09:00 04/18/17 08:59 03/23/17 08:53 5 MG Pantoprazole Sodium (Protonix Tab) 40 mg QAM PO 03/19/17 09:00 04/18/17 08:59 03/23/17 08:54 40 MG Pramipexole Dihydrochloride (miraPEX TAB) 0.5 mg TID PO 03/19/17 09:00 04/18/17 08:59 03/23/17 13:07 0.5 MG Ranitidine HCl (zANTac TAB) 300 mg HS PO 03/19/17 21:00 04/18/17 20:59 03/22/17 20:43 300 MG Cyanocobalamin (Vitamin B-12 Tab) 1,000 mcg DAILY PO 03/19/17 09:00 04/18/17 08:59 03/23/17 08:53 1,000 MCG Ferrous Sulfate (Feosol Tab) 325 mg TIDM PO 03/19/17 07:30 04/18/17 07:29 03/23/17 10:59 325 MG Prochlorperazine Edisylate 5 mg/ Syringe 5 ml @ 5 mls/min Q6H PRN IV 03/18/17 22:15 04/17/17 22:14 Morphine Sulfate (MoRPHine SULFATE INJ) 4 mg Q6H PRN IV 03/18/17 22:15 04/01/17 22:14 Ipratropium [place] (Atrovent 0.02% 0.5MG/2.5ML Neb) 0.5 mg Q4H PRN INH 03/18/17 23:00 04/17/17 22:59 03/19/17 21:27 0.5 MG Benzonatate (Tessalon Perles Cap) 100 mg Q8H PRN PO 03/19/17 00:00 04/18/17 00:00 03/23/17 08:52 100 MG Oseltamivir Phosphate (Tamiflu Cap) 75 mg BID PO 03/19/17 21:00 03/24/17 20:59 03/23/17 08:53 75 MG Menthol (Nice Von) 1 von PRN PRN VON 03/19/17 19:30 04/18/17 19:29 03/19/17 19:56 1 VON Levalbuterol (Xopenex 0.63 Mg/ 3 Ml Neb) 0.63 mg Q2R PRN INH 03/19/17 19:45 04/18/17 19:44 03/21/17 21:53 0.63 MG Gabapentin (Neurontin Cap) 100 mg TID PO 03/20/17 09:00 04/18/17 08:59 03/23/17 13:07 100 MG Alprazolam (Xanax Tab) 0.5 mg TID PO 03/20/17 21:00 04/19/17 20:59 03/23/17 13:06 0.5 MG Miscellaneous Information (Consult Glycemic Management Pharmacy) 1 ea UD PRN N/A 03/21/17 10:36 04/20/17 10:35 Albuterol (Ventolin Hfa Inhaler) 2 puffs Q4H PRN INH 03/21/17 10:45 04/20/17 10:44 03/23/17 08:52 2 PUFFS Prednisone (PredniSONE TAB) 40 mg BID PO 03/23/17 09:00 04/22/17 08:59 03/23/17 08:52 40 MG Insulin Glargine (Lantus Solostar Pen) 30 units QAM SC 03/23/17 09:00 04/22/17 08:59 03/23/17 08:51 30 UNITS
--- NOTE | 2017-03-23 17:17 | Discharge Summary ---
Discharge Summary Date of Service Mar 23, 2017. Discharge Summary Admission Date: Mar 18, 2017 at 20:53 Discharge Date: Mar 23, 2017 Discharge Disposition: Home with services Principal Diagnosis: EXACERBATION OF COPD- Secondary to influenza A. Secondary Diagnoses/Problems: Please refer to hospital course below. Procedures: CT ANGIOGRAM OF THE CHEST CLINICAL HISTORY: Atypical chest pain. Dyspnea. COMPARISON STUDY: Chest x-ray dated 03/18/2017. Chest CT dated 02/26/2016 and 12/11/2013. TECHNIQUE: Following the IV administration of 92 cc of Optiray 320, CT angiogram of the chest was performed from the upper abdomen to the thoracic inlet utilizing the pulmonary embolus protocol. Images are reviewed in the axial, sagittal, and coronal planes. 3-D MIPS images are created and assessed. IV contrast was administered without complication. A dose lowering technique was utilized adhering to the principles of ALARA. CT DOSE: 712.65 mGy.cm FINDINGS: Thyroid: Imaged portions of the thyroid gland are normal in size and attenuation. Thoracic aorta: There is atherosclerotic calcification of the thoracic aorta, which is normal in caliber and demonstrates standard 3-vessel arch anatomy. No dissection is seen. Pulmonary vasculature: The pulmonary trunk is normal in caliber. There are no filling defects identified in main, lobar, or proximal segmental pulmonary branches to suggest pulmonary embolus. Evaluation of the peripheral branches is degraded by motion artifact and suboptimal contrast opacification. Heart: The heart is top normal in size and without pericardial effusion. There are coronary artery calcifications. Lungs and pleural spaces: Moderate to advanced emphysema is noted. The trachea and central airways are clear. No airspace consolidation or pleural effusion is identified. A 3 mm left apical pulmonary nodule on image #257 is unchanged dating back to 2013 and of doubtful significance. Mediastinum: There is no mediastinal lymphadenopathy. Megan: Clear. Axillae: There is no axillary lymphadenopathy. Upper abdomen: A 2.3 cm cyst is again seen in the upper pole the right kidney. There is a tiny hiatal hernia. Skeletal structures: The skeletal structures are osteopenic. No lytic or blastic bony lesions are seen. IMPRESSION: 1. There is no evidence of central pulmonary embolus in the main, lobar, or proximal segmental pulmonary arteries. 2. Emphysema. 3. There is no airspace consolidation or pleural effusion. SINGLE VIEW CHEST CLINICAL HISTORY: Dyspnea. FINDINGS: An AP, portable, upright chest radiograph is compared to study dated 03/13/2017 and correlated with chest CT dated 02/26/2016. The examination is degraded by portable technique, large body habitus, and patient rotation. The cardiomediastinal heart is top normal for projection and there is atherosclerotic calcification of the thoracic aorta. Emphysema and chronic interstitial thickening are similar to previous. There is mild bibasilar atelectasis. No airspace consolidation, large pleural effusion, or pneumothorax is seen. The skeletal structures are osteopenic. The bony thorax is grossly intact. IMPRESSION: Emphysema with no acute cardiopulmonary abnormality. Consultations: Pulmonary Dr. Gardiner Medication Reconciliation New Medications: Prednisone Tab (Prednisone) 10 Mg Tab 10 MG PO UD, #84 TAB take 4 tabs po BID x 3 days, then take 6 tabs po daily x 4 days, then take 5 tabs po daily x 4 days, then take 4 tabs po daily x 4 days, then take 3 tabs po daily x 4 days, then take 2 tabs po daily x 4 days, then take 1 tab po daily indefinitely Alprazolam (Alprazolam) 0.5 Mg Tab 0.5 MG PO BID PRN for anxiety, #10 TAB Ferrous Sulfate (Ferrous Sulfate) 325 Mg Tab 325 MG PO BID for 30 Days, #60 TAB 2 Refills Guaifenesin Ext Rel (Mucinex Ext Rel) 600 Mg Tabcr 600 MG PO Q12 for 7 Days, #14 TABS 0 Refills Continued Medications: Albuterol Hfa (Ventolin Hfa) 200 Puffs/13563 Mcg Aers 2 PUFFS INH Q4H PRN for Wheezing, INHALER Amitriptyline HCl (Amitriptyline HCl) 10 Mg Tab 10 MG PO HS Amlodipine Besylate (Amlodipine Besylate) 5 Mg Tab 5 MG PO DAILY Aspirin (Aspirin Ec) 81 Mg Tab 81 MG PO DAILY Atorvastatin (Lipitor) 10 Mg Tab 10 MG PO QAM Benzonatate (Tessalon Perles) 100 Mg Cap 100-200 MG PO TID PRN for Cough, CAP Cyanocobalamin (Vitamin B12) 1,000 Mcg Tab 1000 MCG PO DAILY Cyclobenzaprine Hcl (Flexeril) 10 Mg Tab 10 MG PO BID PRN for Muscle Spasm Diclofenac Sodium (Topical) (Voltaren 1% Top Gel) 1 % Gel PRN for Documentation Fluticasone Propionate (Fluticasone Propionate) 50 Mcg/Act Spr 2 SPRAYS LIDYA BID Furosemide (Lasix) 20 Mg Tab 20 MG PO QAM, TAB Gabapentin (Neurontin) 100 Mg Cap 100 MG PO TID Glimepiride (Glimepiride) 1 Mg Tab 0.5 TAB PO DAILY, TAB 3 Refills As needed when blood sugars elevated on prednisone. Home O2 Therapy (Oxygen) Gas 3 LITERS NA UD, BTL USE WHEN SLEEPING AND NEEDED Hydrocodone/Acetaminophen 5MG/325MG ([place] 5MG/325MG) Tab 1 TABLET PO Q8 PRN for Moderate Pain, TAB Ipratropium-Albuterol (Duoneb) 3 Ml Nebu 1 VIAL NEB Q4H PRN for SOB/Wheezing, INHA Ipratropium-Albuterol (Combivent Respimat) 1 Aer Aer 1 PUFF INH QID, INH Magnesium Oxide (Mag-Ox) 400 Mg Tab 400 MG PO DAILY, TAB Metformin Hcl (Glucophage) 1,000 Mg Tab 1000 MG PO BID Montelukast Sodium (Singulair) 10 Mg Tab 10 MG PO DAILY, TAB Oxybutynin Chloride (Ditropan Xl) 5 Mg Tab 5 MG PO DAILY, TAB 3 Refills Pantoprazole Sodium (Protonix) 40 Mg Tab 40 MG PO QAM TAKE THIS MEDICATION ONCE DAILY 30 MINUTES BEFORE FIRST MEAL OF THE DAY Potassium Chloride (Potassium Chloride Er) 10 Meq Tab 10 MEQ PO DAILY, TAB Pramipexole Dihydrochloride (Mirapex) 0.5 Mg Tab 0.5 MG PO TID Ranitidine Hcl (Zantac) 300 Mg Tab 300 MG PO HS [Utibron] () 1 CAP INH BID indacaterol-glycopyrolate 27.5-15.6 mcg capsule Discontinued Medications: Azithromycin (Zithromax) 250 Mg Tab 250 MG PO DAILY, #4 TAB Ferrous Sulfate (Kp Ferrous Sulfate) 325 Mg Tab 1 TAB PO WM for 30 Days, TAB 3 Refills Prednisone (Prednisone) 10 Mg Tab 10 MG PO DAILY, TAB Admission Information HPI (per Admitting provider): DATE OF ADMISSION: 03/18/2017 PRIMARY CARE PHYSICIAN: Dr. Cunha. CHIEF COMPLAINT: Shortness of breath. HISTORY OF PRESENT ILLNESS: History obtained from patient, daughter, and records. Medical history significant for chronic respiratory failure secondary to steroid-dependent COPD, home O2, past tobacco abuse, hypertension, DM2 on oral meds, chronic anemia (baseline hemoglobin 10-11), GERD. Recent confinement last December 2016 for worsening respiratory distress secondary to COPD exacerbation. In the last week, the patient noted increasing shortness of breath and productive cough. Denies aspiration. Patient seen at ER a few days ago. Diagnosis was COPD exacerbation. Patient discharged on azithromycin and prednisone. Patient not better despite compliance with medications. The patient complaining of pleuritic substernal central pain, back spasms, body aches, loose stools noted, 101 temperature at home. The patient could not get the cough out. Patient returned to the Emergency Room. At the Emergency Room, the patient received Solu-Medrol, DuoNebs for COPD exacerbation. Physical Exam (per Admitting): VITAL SIGNS: Blood pressure was noted to be 134/67, pulse rate 103, RR 24, temperature 37.5, sats 96 on 3 liters. GENERAL: Noted to be obese, in respiratory distress, receiving breathing treatment. SKIN: Pallor. Warm. HEENT: [place] palpebral conjunctivae. No ptosis. Dry mucosa. NECK: Short neck, supple. CHEST: Expiratory wheezes, rhonchi. HEART: Tachycardic. No murmur. ABDOMEN: Some distension, nontender. EXTREMITIES: Minimal LE edema. No tenderness. No gross deformity. NEUROLOGIC: Coherent. No gross focality. Hospital Course EXACERBATION OF COPD Secondary to influenza A. No infiltrates on chest x-ray. No infiltrates on f/u chest x-ray. -- gradually improved with Tamiflu, IV Steroids, Nebs weaned off from Bipap to usual 3 L via nasal cannula -- Pulmonary consulted -- complete 5 day course of Tamiflu continue slow taper of Prednisone starting at 40mg BID, until back to usual 10mg po daily continue usual bronchodilators -- ff up with Pulmonary as scheduled INFLUENZA A -- completed 5-day course of oseltamivir. CHRONIC HYPOXIC RESPIRATORY FAILURE back to usual 3L Home O2 for asthma / COPD. IRON DEFICIENCY ANEMIA Hgb 9.4 at time of admission; normocytic. Anemia is chronic with most hemoglobins 8-10 over past year. - Fe 15 - FeSO4 to BID - last EGD/Colonoscopy in 2016: unremarkable needs further work up, possible Hematology referral as outpatient CHRONIC LEFT VENTRICULAR DIASTOLIC HEART FAILURE CXR: IMPRESSION: 1. Mild cardiomegaly without acute process. 2. Right greater than left bullous upper lobe predominant emphysema. -- euvolemic HYPERTENSION Continue amlodipine. DM TYPE 2 Usually fairly well-controlled. Hgb A1C = 6.3. -- continue Metformin DISPOSITION d/c home ff up with Dr. Cunha on ff up with Pulmonary next week consider referral to Hematology for Anemia Total time spent on discharge = 30 minutes This includes examination of the patient, discharge planning, medication reconciliation, and communication with other providers. Discharge Instructions Discharge Instructions Date of Service Mar 23, 2017. Admission Reason for Admission: Copd Exacerbation Discharge Discharge Diagnosis / Problem: COPD EXACERBATION, INFLUENZA A Discharge Goals Goal(s): Diagnostic testing, Therapeutic intervention Activity Recommendations Activity Limitations: as noted below (NO HEAVY EXERTION UNTIL RE-EVALUATED BY YOUR PRIMARY CARE PHYSICIAN) Lifting Limitations: until after follow-up appointment Exercise/Sports Limitations: until after follow-up appointment . Instructions / Follow-Up Instructions / Follow-Up PLEASE REVIEW YOUR NEW MEDICATION LIST AND FOLLOW INSTRUCTIONS CAREFULLY. CALL 911 IF WITH WORSENING SHORTNESS OF BREATH. CALL PRIMARY CARE PHYSICIAN OR RETURN TO THE ER IF WITH INCREASING COUGH, FEVER/ CHILLS, WEAKNESS. FOLLOW UP WITH DR. CUNHA ON Monday03/28/17 AT 1045AM. FOLLOW UP WITH BOX NAILER NEXT WEEK SCHEDULED. Current Hospital Diet Patient's current hospital diet: Diabetes Type 2 Diet, Low Lactose Diet Discharge Diet Recommended Diet: AHA Diet (Heart Healthy), Diabetes Type 2 Diet Procedures Procedures Performed: CHEST XRAY Pending Studies Studies pending at discharge: no Laboratory Results Hemoglobin A1c Test 03/18/17 19:45 Range/Units Estimated Average Glucose 134 mg/dl Hemoglobin A1c 6.3 H 4.5-5.6 % Medical Emergencies . Who to Call and When: Medical Emergencies: If at any time you feel your situation is an emergency, please call 911 immediately. . Non-Emergent Contact Non-Emergency issues call your: Primary Care Provider, Cutter And Edge Trimmer Call Non-Emergent contact if: you have a fever, you have any medication questions . . "Provider Documentation" section prepared by Rene Murillo. . VTE Core Measure Inpt VTE Proph given/why not?: Enoxaparin (Lovenox)[facility] Drug Monitoring Program Search Results: patient reviewed within database, no issues identified
== END 2017-03-23 17:34 | disposition home or self-care (01) | DRG 194 ==
LOC: C.EDB 18:45 → C.2T 20:53 → ENRESERV 21:05 → C.2T 03-19 00:34
PROVIDERS: ADMIT Internal Medicine; ATTEND Internal Medicine
DX: J10.1 Influenza due to other identified influenza virus with other respiratory manifestations (principal); J96.11 Chronic respiratory failure with hypoxia; I50.32 Chronic diastolic (congestive) heart failure; J44.1 Chronic obstructive pulmonary disease with (acute) exacerbation; Z68.41 Body mass index [BMI] 40.0-44.9, adult; E11.9 Type 2 diabetes mellitus without complications; K21.9 Gastro-esophageal reflux disease without esophagitis; F32.9 Major depressive disorder, single episode, unspecified; I11.0 Hypertensive heart disease with heart failure; D50.9 Iron deficiency anemia, unspecified; R19.7 Diarrhea, unspecified; G47.33 Obstructive sleep apnea (adult) (pediatric); E66.01 Morbid (severe) obesity due to excess calories; Z79.82 Long term (current) use of aspirin; Z79.52 Long term (current) use of systemic steroids; Z79.84 Long term (current) use of oral hypoglycemic drugs; Z79.899 Other long term (current) drug therapy; Z99.81 Dependence on supplemental oxygen

== ENCOUNTER 2017-05-05 22:12 | Inpatient (IN) | payer OTHER ==
[~2017-05-05] VITALS: Ht 160 cm; Wt 110.3 kg
[~2017-05-05 22:12] MED LIST changes: -AZIT250T PO; -DICL1GEL12; +DICL1GEL12 TOP; -FERR1TAB13 PO; +FRRS300 PO; +GFNSR600 PO; -PRED20TA PO; +XNX5 PO
[2017-05-05] MEDS ORDERED: METHYLPREDNISOLONE 125 MG VIAL IV STA (22:30)
[2017-05-05] MEDS ORDERED: ALBUT/IPRATROP 3MG/0.5MG NEB 3 ML VIAL INH ONE (22:30)
[2017-05-05] MEDS ORDERED: MAGNESIUM SULFATE 1GM / D5W 1 GM BAG IV STA (22:30)
--- NOTE | 2017-05-05 22:32 | EMERGENCY ROOM VISIT NOTE ---
History Report prepared by Hiral: Willam Llamas Under the Supervision of: Dr. Sher Davis M.D. First contact with patient: 22:20 Chief Complaint: RESPIRATORY DISTRESS Stated Complaint: ASTHMA ATTACK History of Present Illness The patient is a 61 year old female with a past medical history of asthma, COPD, GERD, hypertension, diabetes, and hyperlipidemia who presents to the ED with a cc of worsening SOB beginning 4 days ago. Positive for a mild, yellowish, productive cough. Negative for CP and leg swelling. The patient states that she has been having worsening SOB for the past four days. She notes that her symptoms worsen when she exerts herself. She reports that she has to use her inhaler whenever she gets up to walk. The patient states that she uses 2L of oxygen at home at all times. She denies any history of heart failure, blood clots, and estrogen therapy. She also denies any recent travel. She notes that she received a flu shot this year. Source of History: patient Onset: 4 days ago Position: other (lungs) Timing: worsening Modifying Factors (Worsening): exertion Associated Symptoms: + cough (productive yellow cough), No chest pain Note: She denies any leg swelling. Review of Systems See HPI for pertinent positives and negatives. A total of ten systems were reviewed and were otherwise negative. Past Medical & Surgical Medical Problems: (1) Acute respiratory failure (2) Anemia (3) Asthma (4) Asthma, Unspecified (5) Carpal tunnel syndrome (6) COPD (chronic obstructive pulmonary disease) (7) COPD exacerbation (8) Depression (9) Diabetes mellitus, type 2 (10) Esophageal Reflux (11) GERD (gastroesophageal reflux disease) (12) Hiatal hernia (13) History of cervical cancer (14) Hyperlipidemia (15) Hypertension (16) Hypertension (17) Intervertebral disc disorder (18) Nocturnal hypoxia (19) Obstructive Chronic Bronchitis With Acute Bronchitis (20) Osteoarthritis (21) Reflux esophagitis (22) Restless leg syndrome (23) Restless Legs Syndrome (24) Rheumatoid Arthritis (25) Tobacco Use Disorder Surgical Problems: (1) H/O colonoscopy (2) History of esophagogastroduodenoscopy (EGD) Family History Diabetes mellitus FH: heart disease FH: lung disease FHx: cancer Hypertension Social History Smoking Status: Former Smoker Alcohol Use: none Drug Use: none Marital Status: single Housing Status: lives alone Occupation Status: disabled Current/Historical Medications Scheduled Amitriptyline HCl (Amitriptyline HCl), 10 MG PO HS Amlodipine Besylate (Amlodipine Besylate), 5 MG PO DAILY Aspirin (Aspirin Ec), 81 MG PO DAILY Atorvastatin (Lipitor), 40 MG PO DAILY Cyanocobalamin (Vitamin B12), 1,000 MCG PO DAILY Diclofenac Sodium (Topical) (Voltaren 1% Top Gel), 2 GM TOP BID Ferrous Sulfate (Ferrous Sulfate), 325 MG PO DAILY Fluticasone Propionate (Fluticasone Propionate), 2 SPRAYS LIDYA BID Furosemide (Lasix), 20 MG PO QAM Gabapentin (Neurontin), 100 MG PO TID Home O2 Therapy (Oxygen), 3 LITERS NA UD Ipratropium-Albuterol (Combivent Respimat), 1 PUFF INH QID Magnesium Oxide (Mag-Ox), 400 MG PO DAILY Metformin Hcl (Glucophage), 1,000 MG PO BID Montelukast Sodium (Singulair), 10 MG PO DAILY Pantoprazole Sodium (Protonix), 40 MG PO QAM Potassium Chloride (Potassium Chloride Er), 10 MEQ PO DAILY Pramipexole Dihydrochloride (Mirapex), 0.5 MG PO TID Prednisone Tab (Prednisone), 10 MG PO UD Ranitidine Hcl (Zantac), 300 MG PO HS [Utibron], 1 CAP INH BID Scheduled PRN Albuterol Hfa (Ventolin Hfa), 2 PUFFS INH Q4H PRN for Wheezing Alprazolam (Xanax), 0.5 MG PO DAILY PRN for Anxiety Arformoterol Tartrate (Brovana), 15 MCG INH BID PRN for SOB/Wheezing Azithromycin (Zithromax), 25 MG PO DAILY PRN for rescue kit Benzonatate (Tessalon Perles), 100-200 MG PO TID PRN for Cough Cyclobenzaprine Hcl (Flexeril), 10 MG PO BID PRN for Muscle Spasm Famotidine (Pepcid Ac), 10 MG PO BID PRN for Heartburn Glimepiride (Glimepiride), 0.5 TAB PO DAILY PRN for when on prednisone Guaifenesin (Guaifenesin), 400 MG PO UD PRN for UNDECIDED Hydrocodone/Acetaminophen 5MG/325MG ([place] 5MG/325MG), 1 TABLET PO Q8 PRN for Moderate Pain Ipratropium-Albuterol (Duoneb), 1 VIAL NEB Q4H PRN for SOB/Wheezing Allergies Coded Allergies: NO KNOWN DRUG ALLERGIES (Verified Allergy, Unknown, n/a, 05/05/17) POLLEN (Verified Allergy, Unknown, SNEEZE,COUGH-WEEDS,GRASS,POLLEN, 05/05/17 ) Physical Exam Vital Signs Date Time Temp Pulse Resp B/P (MAP) Pulse Ox O2 Delivery O2 Flow Rate FiO2 05/05/17 23:11 109 137/54 100 Nebulizer 05/05/17 22:43 113 18 96 Nasal Cannula 2.0 05/05/17 22:33 98 Nasal Cannula 2.0 05/05/17 22:33 98 Nasal Cannula 2.0 05/05/17 22:21 119 05/05/17 22:19 100 Nebulizer 05/05/17 22:15 36.8 122 30 161/108 100 Nebulizer Physical Exam GENERAL: Awake, alert, well-appearing, obese, mild distress HENT: Normocephalic, atraumatic. EYES: Normal conjunctiva. Sclera non-icteric. NECK: Supple. No nuchal rigidity. FROM. RESPIRATORY: CTAB, no rhonchi and crackles, diffuse expiratory wheezes with prolonged expiratory phase CARDIAC: RRR, no MRG ABDOMEN: Soft, NTND, BS+ MSK: No chest wall TTP, 1+ pitting edema in the bilateral lower extremities NEURO: GCS 15, CN 2-12 intact, moves all 4s on command SKIN: No rash or jaundice noted. Medical Decision & Procedures ER Provider Diagnostic Interpretation: Radiology results as stated below per my review and radiologist interpretation: CHEST ONE VIEW PORTABLE FINDINGS: The cardiac and mediastinal contours are normal. There is no evidence of focal pulmonary consolidation. There is no evidence of failure. No pleural effusions are visualized.[Increased density at the lung bases, likely relates to technical factors given the patient's body habitus. There is upper lobe emphysema. IMPRESSION: Emphysema. No active disease in the chest. Electronically signed by: Byron Sauceda M.D. 05/05/2017 10:45 PM Laboratory Results 05/05/17 22:40 Red Blood Count 3.79, Mean Corpuscular Volume 86.3, Mean Corpuscular Hemoglobin 26.6, Mean Corpuscular Hemoglobin Concent 30.9, Mean Platelet Volume 8.5, Neutrophils (%) (Auto) 33.4, Lymphocytes (%) (Auto) 52.5, Monocytes (%) (Auto) 10.0, Eosinophils (%) (Auto) 3.4, Basophils (%) (Auto) 0.5, Neutrophils # (Auto ) 2.03, Lymphocytes # (Auto) 3.20, Monocytes # (Auto) 0.61, Eosinophils # (Auto ) 0.21, Basophils # (Auto) 0.03 05/05/17 22:40 Test 05/05/17 22:40 White Blood Count 6.09 K/uL (4.8-10.8) Red Blood Count 3.79 M/uL (4.2-5.4) Hemoglobin 10.1 g/dL (12.0-16.0) Hematocrit 32.7 % (37-47) Mean Corpuscular Volume 86.3 fL (80-100) Mean Corpuscular Hemoglobin 26.6 pg (25-34) Mean Corpuscular Hemoglobin Concent 30.9 g/dl (32-36) Platelet Count 330 K/uL (130-400) Mean Platelet Volume 8.5 fL (7.4-10.4) Neutrophils (%) (Auto) 33.4 % Lymphocytes (%) (Auto) 52.5 % Monocytes (%) (Auto) 10.0 % Eosinophils (%) (Auto) 3.4 % Basophils (%) (Auto) 0.5 % Neutrophils # (Auto) 2.03 K/uL (1.4-6.5) Lymphocytes # (Auto) 3.20 K/uL (1.2-3.4) Monocytes # (Auto) 0.61 K/uL (0.11-0.59) Eosinophils # (Auto) 0.21 K/uL (0-0.5) Basophils # (Auto) 0.03 K/uL (0-0.2) RDW Standard Deviation 47.3 fL (36.4-46.3) RDW Coefficient of Variation 15.2 % (11.5-14.5) Immature Granulocyte % (Auto) 0.2 % Immature Granulocyte # (Auto) 0.01 K/uL (0.00-0.02) Hypochromasia PRESENT Prothrombin Time 9.9 SECONDS (9.0-12.0) Prothromb Time International Ratio 0.9 (0.9-1.1) Activated Partial Thromboplast Time 26.4 SECONDS (21.0-31.0) Partial Thromboplastin Ratio 1.0 Anion Gap 8.0 mmol/L (3-11) Est Creatinine Clear Calc Drug Dose 75.4 ml/min Estimated GFR () 75.4 Estimated GFR (Non- 65.0 BUN/Creatinine Ratio 10.2 (10-20) Calcium Level 8.9 mg/dl (8.5-10.1) Total Bilirubin 0.2 mg/dl (0.2-1) Aspartate Amino Transf (AST/SGOT) 18 U/L (15-37) Alanine Aminotransferase (ALT/SGPT) 36 U/L (12-78) Alkaline Phosphatase 86 U/L (45-117) Troponin I < 0.015 ng/ml (0-0.045) Pro-B-Type Natriuretic Peptide 12 pg/ml (0-900) Total Protein 6.7 gm/dl (6.4-8.2) Albumin 3.4 gm/dl (3.4-5.0) Globulin 3.3 gm/dl (2.5-4.0) Albumin/Globulin Ratio 1.0 (0.9-2) Laboratory results reviewed by me Medications Administered Medications (Trade) Dose Ordered Sig/Allison Route Start Time Stop Time Status Last Admin Dose Admin Albuterol/ Ipratropium (Duoneb) 12 ml ONE ONCE INH 05/05/17 22:30 05/05/17 22:33 DC 05/05/17 22:40 12 ML Methylprednisolone Sodium Succinate (Solu-Medrol IV) 125 mg NOW STAT IV 05/05/17 22:30 05/05/17 22:33 DC 05/05/17 22:48 125 MG Magnesium Sulfate (Magnesium Sulfate) 1 gm NOW STAT IV 05/05/17 22:30 05/05/17 22:33 DC 05/05/17 22:48 1 GM Azithromycin (Zithromax Tab) 500 mg NOW ONCE PO 05/05/17 22:45 05/05/17 22:46 DC 05/05/17 22:48 500 MG Sodium Chloride 500 ml @ 999 mls/hr Q31M STAT IV 05/05/17 22:51 05/05/17 23:21 DC 05/05/17 22:54 999 MLS/HR ECG Per My Interpretation Indication: SOB/dyspnea Rate (beats per minute): 113 Rhythm: sinus tachycardia Findings: other (Normal intervals, normal axis, no STS changes or TWI) ED Course 2223: The patient was evaluated in room B7. A complete history and physical exam was performed. 2335: I reevaluated and updated the patient. She still has a lot of wheezing. 0008: Upon reexamination, the patient was stable. I discussed the test results and treatment plan with Her. Discussed the patient's case with Dr. Callahan - Michaela Grossman. The patient will be evaluated for further management. Medical Decision The patient is a 61 year old female with a past medical history of asthma, COPD, GERD, hypertension, diabetes, and hyperlipidemia who presents to the ED with a cc of worsening SOB beginning 4 days ago. Positive for a mild, yellowish, productive cough. Negative for CP and leg swelling. Differential diagnosis: Etiologies such as infections, reactive airway disease, pneumonia, pneumothorax , COPD, CHF, cardiac ischemia, pulmonary embolism, musculoskeletal, gastrointestinal, as well as others were entertained. Prior records were reviewed. Patient was seen and evaluated at the bedside. The patient did describe worsening shortness of breath beginning 4 days prior. Patient also did describe some productive sputum and cough. Patient denies any chest pain. Patient did have diffuse and expiratory wheezing as well as a prolonged expiratory phase. Patient did state that she had been using her inhalers with increasing frequency. She has not had much relief. Patient denies any history of DVT or PE. She is not confirm any recent prolonged car or plane travel. She does not take estrogen replacement therapy. Patient did have blood work completed along with an EKG, troponin, chest x-ray. Patient was also given medications for COPD exacerbation. Upon reassessment the patient was feeling improved. The patient still sounded fairly tight. Of note the patient does use 2 L of at home O2. She does not have an increased O2 requirement. Patient does have some tachycardia. I believe this is likely related to extra sensory motor losses as well as the DuoNeb's. Believe this less likely to be PE. Patient does not have an elevated BNP and has a undetectable troponin troponin. EKG shows sinus tach without any evidence of right heart strain. Less likely CHF or ACS. Given that the patient still had diffuse wheezing thought she would benefit from additional treatment. I did discuss the patient's case with the hospitalist who agreed to further evaluate and treat the patient. A flu test was also added. Head Trauma GCS Score: 15 Medication Reconcilliation Current Medication List: was personally reviewed by me Blood Pressure Screening Patient's blood pressure: Elevated blood pressure Elevated blood pressure will be monitored by hospitalist. Consults Time Called: [phone] Consulting Phys[facility] Returned Call: [phone] Discussed the patient's case. The patient will be evaluated for further treatment and disposition. Impression Primary Impression: COPD exacerbation Additional Impression: SOB (shortness of breath) Scribe Attestation The scribe's documentation has been prepared under my direction and personally reviewed by me in its entirety. I confirm that the note above accurately reflects all work, treatment, procedures, and medical decision making performed by me. Departure Information Dispostion Being Evaluated By Hospitalist Referrals Martina Jay M.D. (PCP) Patient Instructions Asthma - [facility], COPD - [facility], Croup - [facility], My [facility] Problem Qualifiers
[2017-05-05 22:43] VITALS: PULSE 113; O2SAT 96
[2017-05-05] MEDS ORDERED: AZITHROMYCIN 250 MG TAB PO ONE (22:45)
--- NOTE | 2017-05-05 22:46 | DIAGNOSTIC IMAGING REPORT ---
CHEST ONE VIEW PORTABLE CLINICAL HISTORY: Respiratory distress COMPARISON STUDY: 03/19/2017 FINDINGS: The cardiac and mediastinal contours are normal. There is no evidence of focal pulmonary consolidation. There is no evidence of failure. No pleural effusions are visualized.[Increased density at the lung bases, likely relates to technical factors given the patient's body habitus. There is upper lobe emphysema. IMPRESSION: Emphysema. No active disease in the chest. Electronically signed by: Byron Sauceda M.D. 05/05/2017 10:45 PM Dictated Date/Time: 05/05/2017 10:44 PM
[2017-05-05] MEDS ORDERED: SODIUM CHLORIDE 0.9% 500ML 500 ML IV STA (22:51)
[2017-05-05 22:56] LABS: HEMATOCRIT 32.7 % (37-47); HEMOGLOBIN 10.1 g/dL (12.0-16.0); MEAN CELL VOLUME 86.3 fL (80-100); MEAN CORPUSCULAR HEMOGLOBIN 26.6 pg (25-34); MEAN CORPUSCULAR HGB CONC 30.9 g/dl (32-36); MEAN PLATELET VOLUME 8.5 fL (7.4-10.4); PLATELET COUNT 330 K/uL (130-400); RED CELL DISTRIBUTION WIDTH CV 15.2 % (11.5-14.5); RED CELL DISTRIBUTION WIDTH SD 47.3 fL (36.4-46.3); WHITE BLOOD COUNT 6.09 K/uL (4.8-10.8)
[2017-05-05 23:05] LABS: INR 0.9 (0.9-1.1); PTT PATIENT 26.4 SECONDS (21.0-31.0)
[2017-05-05 23:18] LABS: ALBUMIN 3.4 gm/dl (3.4-5.0); ALT/SGPT 36 U/L (12-78); AST/SGOT 18 U/L (15-37); BLOOD UREA NITROGEN 10 mg/dl (7-18); CALCIUM 8.9 mg/dl (8.5-10.1); CARBON DIOXIDE 27 mmol/L (21-32); CREATININE 0.94 mg/dl (0.60-1.20); GLUCOSE 117 mg/dl (70-99); POTASSIUM 3.5 mmol/L (3.5-5.1); SODIUM 140 mmol/L (136-145)
[2017-05-05 23:23] LABS: ALKALINE PHOSPHATASE 86 U/L (45-117); TOTAL PROTEIN 6.7 gm/dl (6.4-8.2)
[2017-05-06] VITALS (12 sets, daily range): BP systolic 113–162; BP diastolic 59–89; PULSE 113–128; TEMP 36–37; O2SAT 38–100; Ht 160 cm; Wt 110.3 kg
[2017-05-06 00:04] LABS: BASO % 0.5 %; BASO ABS # 0.03 K/uL (0-0.2); EOS % 3.4 %; EOS ABS # 0.21 K/uL (0-0.5); IG# 0.01 K/uL (0.00-0.02); LYMPH % 52.5 %; MONO ABS # 0.61 K/uL (0.11-0.59); NEUT % 33.4 %; NEUT ABS # 2.03 K/uL (1.4-6.5)
[2017-05-06] MEDS ORDERED: FRRS300 PO (00:04)
[2017-05-06] MEDS ORDERED: ALPR-411 PO (00:04)
[2017-05-06] MEDS ORDERED: AZIT250T PO (00:06)
[2017-05-06] MEDS ORDERED: ATOR-24 PO (00:07)
[2017-05-06] MEDS ORDERED: FAMO10TA16 PO (00:10)
[2017-05-06] MEDS ORDERED: ARFO15NE INH (00:10)
[2017-05-06] MEDS ORDERED: GUAI400T44 PO (00:11)
[2017-05-06 01:45] LABS: INFLUENZA A PCR Neg for Influ A (NEG); INFLUENZA B PCR Neg for Influ B (NEG)
[2017-05-06] MEDS ORDERED: GLUCOSE 10 TABS/TUBE PO PRN (02:45)
[2017-05-06] MEDS ORDERED: ACETAMINOPHEN 325 MG TAB PO PRN (02:45)
[2017-05-06] MEDS ORDERED: GLUCOSE 40% GEL 15 GM TUBE PO PRN (02:45)
[2017-05-06] MEDS ORDERED: POLYETHYLENE (MIRALAX) 17 GM PACK PO PRN (02:45)
[2017-05-06] MEDS ORDERED: DEXTROSE 50% 50 ML SYR IV PRN (02:45)
[2017-05-06] MEDS ORDERED: ONDANSETRON INJ 2 MG/ML 2 ML VIAL IV PRN (02:45)
[2017-05-06] MEDS ORDERED: GLUCAGON FOR INJ 1 MG VIAL SQ PRN (02:45)
[2017-05-06] MEDS ORDERED: BACL10TA PO (02:55)
[2017-05-06] MEDS ORDERED: IPRA1AER2 INH (02:57)
[2017-05-06] MEDS ORDERED: FLUT1INH5 INH (02:57)
[2017-05-06] MEDS ORDERED: PRAMIPEXOLE DIHYDROCHLORIDE 0.5 MG TAB PO ONE (02:57)
[2017-05-06] MEDS ORDERED: CYCLOBENZAPRINE HCL 10 MG TAB PO PRN (03:00)
[2017-05-06] MEDS ORDERED: ALPRAZOLAM 0.5 MG TAB PO PRN (03:00)
--- NOTE | 2017-05-06 03:20 | History and Physical ---
History & Physical Date & Time of Service: May 06, 2017 at 03:06 Chief Complaint: Copd Exacerbation Primary Care Physician: Martina Jay M.D. History of Present Illness Source: patient, clinic records, hospital records The patient is a 61-year-old female with history of asthma and COPD who presents with worsening shortness of breath for 4 days in addition to a productive cough of yellowish sputum. She has dyspnea on exertion. She has been using nebulizer therapy at home without relief. She had no rescue pack available in the pharmacy and has not been on prednisone for several weeks despite being given a long-term taper after last discharge in February. At that time she was admitted for COPD exacerbation secondary to the flu. Flu PCR is negative today. Chest x-ray is clear. Patient denies chest pain swelling of the legs. She does report 1 day of nausea and vomiting 2 weeks ago that has resolved. She recently lost her sister and sister's 1 month ago, and has not been eating very much because of bereavement issues. Otherwise able to tolerate p.o. She complains that her mouth is dry. She states she has been feeling sluggish. She recently traveled to [place] for her family . Otherwise reports no travel or sick contacts. In the ER she presented with a respiratory rate of 30 and was given an hour-long nebulizer treatment with improvement in respiratory status. She is on 3 L nasal cannula oxygen at home continuously. Past Medical/Surgical History Medical Problems: (1) Anemia Status: Chronic (2) Asthma Status: Chronic (3) Asymptomatic microscopic hematuria Status: Chronic (4) Carpal tunnel syndrome Status: Chronic (5) Chronic diastolic (congestive) heart failure Status: Chronic (6) COPD (chronic obstructive pulmonary disease) Status: Chronic (7) Depression Status: Chronic (8) Diabetes mellitus, type 2 Status: Chronic (9) GERD (gastroesophageal reflux disease) Status: Chronic (10) Hiatal hernia Status: Chronic (11) History of cervical cancer Permanent Comment: s/p laser Status: Chronic (12) Hyperlipidemia Status: Chronic (13) Hypertension Status: Chronic (14) Hypertension Status: Chronic (15) Intervertebral disc disorder Permanent Comment: C5-C6 Status: Chronic (16) Morbid obesity with BMI of 40.0-44.9, adult Status: Chronic (17) Nocturnal hypoxia Permanent Comment: home O2 2 LPM HS Status: Chronic (18) Osteoarthritis Status: Chronic (19) Panlobular emphysema Status: Chronic (20) Reflux esophagitis Status: Chronic (21) Restless leg syndrome Status: Chronic Surgical Problems: (1) H/O colonoscopy Status: Chronic (2) History of esophagogastroduodenoscopy (EGD) Status: Chronic Family History Diabetes mellitus FH: heart disease FH: lung disease FHx: cancer Hypertension Social History Smoking Status: Former Smoker (Quit 2-1/2 years ago) Smokeless Tobacco Use: No Alcohol Use: none Drug Use: none Marital Status: single Housing status: lives with family (Lives with daughter) Occupational Status: disabled Immunizations History of Influenza Vaccine: Yes Influenza Vaccine Date: Nov 14, 2016 History of Tetanus Vaccine?: No Tetanus Immunization Date: Dec 31, 2008 History of Pneumococcal: Yes Pneumococcal Date: Feb 23, 2016 History of Hepatitis B Vaccine: Yes Hepatitis Immunization Date: Jun 25, 2013 Allergies Coded Allergies: NO KNOWN DRUG ALLERGIES (Verified Allergy, Unknown, n/a, 05/05/17) POLLEN (Verified Allergy, Unknown, SNEEZE,COUGH-WEEDS,GRASS,POLLEN, 05/05/17 ) Home Medications Scheduled Amitriptyline HCl (Amitriptyline HCl), 10 MG PO HS Amlodipine Besylate (Amlodipine Besylate), 5 MG PO DAILY Aspirin (Aspirin Ec), 81 MG PO DAILY Atorvastatin (Lipitor), 40 MG PO DAILY Baclofen (Lioresal), 10 MG PO BID Cyanocobalamin (Vitamin B12), 1,000 MCG PO DAILY Ferrous Sulfate (Ferrous Sulfate), 325 MG PO DAILY Fluticasone Furoate (Inhalatio (Arnuity Ellipta), 1 PUFF INH DAILY Fluticasone Propionate (Fluticasone Propionate), 2 SPRAYS LIDYA BID Furosemide (Lasix), 20 MG PO QAM Gabapentin (Neurontin), 100 MG PO TID Home O2 Therapy (Oxygen), 3 LITERS NA UD Ipratropium-Albuterol (Combivent Respimat), 1 PUFF INH QID Magnesium Oxide (Mag-Ox), 400 MG PO DAILY Metformin Hcl (Glucophage), 1,000 MG PO BID Montelukast Sodium (Singulair), 10 MG PO DAILY Pantoprazole Sodium (Protonix), 40 MG PO QAM Potassium Chloride (Potassium Chloride Er), 10 MEQ PO DAILY Pramipexole Dihydrochloride (Mirapex), 0.5 MG PO TID Prednisone Tab (Prednisone), 10 MG PO UD Ranitidine Hcl (Zantac), 300 MG PO HS Scheduled PRN Albuterol Hfa (Ventolin Hfa), 2 PUFFS INH Q4H PRN for Wheezing Alprazolam (Xanax), 0.5 MG PO DAILY PRN for Anxiety Arformoterol Tartrate (Brovana), 15 MCG INH BID PRN for SOB/Wheezing Azithromycin (Zithromax), 25 MG PO DAILY PRN for rescue kit Cyclobenzaprine Hcl (Flexeril), 10 MG PO BID PRN for Muscle Spasm Glimepiride (Glimepiride), 0.5 TAB PO DAILY PRN for when on prednisone Guaifenesin (Guaifenesin), 400 MG PO UD PRN for UNDECIDED Hydrocodone/Acetaminophen 5MG/325MG ([place] 5MG/325MG), 1 TABLET PO Q8 PRN for Moderate Pain Ipratropium-Albuterol (Duoneb), 1 VIAL NEB Q4H PRN for SOB/Wheezing Review of Systems At least 10 systems were reviewed and negative except as indicated in HPI above. Physical Exam Vital Signs Date Time Temp Pulse Resp B/P (MAP) Pulse Ox O2 Delivery O2 Flow Rate FiO2 05/06/17 01:35 36.1 118 30 162/82 94 Mask 5.0 05/06/17 01:24 116 24 118/70 100 05/05/17 23:11 109 137/54 100 Nebulizer 05/05/17 22:43 113 18 96 Nasal Cannula 2.0 05/05/17 22:33 98 Nasal Cannula 2.0 05/05/17 22:33 98 Nasal Cannula 2.0 05/05/17 22:21 119 05/05/17 22:19 100 Nebulizer 05/05/17 22:15 36.8 122 30 161/108 100 Nebulizer General Appearance: WD/WN, + moderate distress, + pertinent finding Head: normocephalic (Respiratory rate 26.), atraumatic Eyes: normal inspection, PERRL, sclerae normal ENT: normal ENT inspection, hearing grossly normal, pharynx normal, + pertinent finding (Mucous membranes are dry) Neck: supple, no adenopathy, trachea midline Respiratory/Chest: chest non-tender, + respiratory distress, + accessory muscle use, + wheezing (Diffuse wheezing throughout all lung pool) Cardiovascular: no edema, no JVD, no murmur, normal peripheral pulses, + tachycardia Abdomen/GI: normal bowel sounds, non tender, soft, no organomegaly Extremities/Musculoskelatal: normal inspection, no calf tenderness, normal capillary refill, no pedal edema, normal range of motion Neurologic/Psych: 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 II-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 nml as tested, no motor/sensory deficits, alert, normal mood/affect, oriented x 3 Skin: normal color, warm/dry Diagnostics Laboratory Results 05/05/17 22:40 Red Blood Count 3.79, Mean Corpuscular Volume 86.3, Mean Corpuscular Hemoglobin 26.6, Mean Corpuscular Hemoglobin Concent 30.9, Mean Platelet Volume 8.5, Neutrophils (%) (Auto) 33.4, Lymphocytes (%) (Auto) 52.5, Monocytes (%) (Auto) 10.0, Eosinophils (%) (Auto) 3.4, Basophils (%) (Auto) 0.5, Neutrophils # (Auto ) 2.03, Lymphocytes # (Auto) 3.20, Monocytes # (Auto) 0.61, Eosinophils # (Auto ) 0.21, Basophils # (Auto) 0.03 05/05/17 22:40 Test 05/05/17 22:40 05/06/17 00:40 White Blood Count 6.09 K/uL (4.8-10.8) Red Blood Count 3.79 M/uL (4.2-5.4) Hemoglobin 10.1 g/dL (12.0-16.0) Hematocrit 32.7 % (37-47) Mean Corpuscular Volume 86.3 fL (80-100) Mean Corpuscular Hemoglobin 26.6 pg (25-34) Mean Corpuscular Hemoglobin Concent 30.9 g/dl (32-36) Platelet Count 330 K/uL (130-400) Mean Platelet Volume 8.5 fL (7.4-10.4) Neutrophils (%) (Auto) 33.4 % Lymphocytes (%) (Auto) 52.5 % Monocytes (%) (Auto) 10.0 % Eosinophils (%) (Auto) 3.4 % Basophils (%) (Auto) 0.5 % Neutrophils # (Auto) 2.03 K/uL (1.4-6.5) Lymphocytes # (Auto) 3.20 K/uL (1.2-3.4) Monocytes # (Auto) 0.61 K/uL (0.11-0.59) Eosinophils # (Auto) 0.21 K/uL (0-0.5) Basophils # (Auto) 0.03 K/uL (0-0.2) RDW Standard Deviation 47.3 fL (36.4-46.3) RDW Coefficient of Variation 15.2 % (11.5-14.5) Immature Granulocyte % (Auto) 0.2 % Immature Granulocyte # (Auto) 0.01 K/uL (0.00-0.02) Hypochromasia PRESENT Prothrombin Time 9.9 SECONDS (9.0-12.0) Prothromb Time International Ratio 0.9 (0.9-1.1) Activated Partial Thromboplast Time 26.4 SECONDS (21.0-31.0) Partial Thromboplastin Ratio 1.0 Anion Gap 8.0 mmol/L (3-11) Est Creatinine Clear Calc Drug Dose 75.4 ml/min Estimated GFR () 75.4 Estimated GFR (Non- 65.0 BUN/Creatinine Ratio 10.2 (10-20) Calcium Level 8.9 mg/dl (8.5-10.1) Total Bilirubin 0.2 mg/dl (0.2-1) Aspartate Amino Transf (AST/SGOT) 18 U/L (15-37) Alanine Aminotransferase (ALT/SGPT) 36 U/L (12-78) Alkaline Phosphatase 86 U/L (45-117) Troponin I < 0.015 ng/ml (0-0.045) Pro-B-Type Natriuretic Peptide 12 pg/ml (0-900) Total Protein 6.7 gm/dl (6.4-8.2) Albumin 3.4 gm/dl (3.4-5.0) Globulin 3.3 gm/dl (2.5-4.0) Albumin/Globulin Ratio 1.0 (0.9-2) Influenza Type A (RT-PCR) Neg for Influ A (NEG) Influenza Type B (RT-PCR) Neg for Influ B (NEG) Results Past 24 Hours Test 05/05/17 22:40 05/06/17 00:40 Range/Units White Blood Count 6.09 4.8-10.8 K/uL Red Blood Count 3.79 4.2-5.4 M/uL Hemoglobin 10.1 12.0-16.0 g/dL Hematocrit 32.7 37-47 % Mean Corpuscular Volume 86.3 80-100 fL Mean Corpuscular Hemoglobin 26.6 25-34 pg Mean Corpuscular Hemoglobin Concent 30.9 32-36 g/dl Platelet Count 330 130-400 K/uL Mean Platelet Volume 8.5 7.4-10.4 fL Neutrophils (%) (Auto) 33.4 % Lymphocytes (%) (Auto) 52.5 % Monocytes (%) (Auto) 10.0 % Eosinophils (%) (Auto) 3.4 % Basophils (%) (Auto) 0.5 % Neutrophils # (Auto) 2.03 1.4-6.5 K/uL Lymphocytes # (Auto) 3.20 1.2-3.4 K/uL Monocytes # (Auto) 0.61 0.11-0.59 K/uL Eosinophils # (Auto) 0.21 0-0.5 K/uL Basophils # (Auto) 0.03 0-0.2 K/uL RDW Standard Deviation 47.3 36.4-46.3 fL RDW Coefficient of Variation 15.2 11.5-14.5 % Immature Granulocyte % (Auto) 0.2 % Immature Granulocyte # (Auto) 0.01 0.00-0.02 K/uL Hypochromasia PRESENT Prothrombin Time 9.9 9.0-12.0 SECONDS Prothromb Time International Ratio 0.9 0.9-1.1 Activated Partial Thromboplast Time 26.4 21.0-31.0 SECONDS Partial Thromboplastin Ratio 1.0 Sodium Level 140 136-145 mmol/L Potassium Level 3.5 3.5-5.1 mmol/L Chloride Level 105 98-107 mmol/L Carbon Dioxide Level 27 21-32 mmol/L Anion Gap 8.0 3-11 mmol/L Blood Urea Nitrogen 10 7-18 mg/dl Creatinine 0.94 0.60-1.20 mg/dl Est Creatinine Clear Calc Drug Dose 75.4 ml/min Estimated GFR () 75.4 Estimated GFR (Non- 65.0 BUN/Creatinine Ratio 10.2 10-20 Random Glucose 117 70-99 mg/dl Calcium Level 8.9 8.5-10.1 mg/dl Total Bilirubin 0.2 0.2-1 mg/dl Aspartate Amino Transf (AST/SGOT) 18 15-37 U/L Alanine Aminotransferase (ALT/SGPT) 36 12-78 U/L Alkaline Phosphatase 86 45-117 U/L Troponin I < 0.015 0-0.045 ng/ml Pro-B-Type Natriuretic Peptide 12 0-900 pg/ml Total Protein 6.7 6.4-8.2 gm/dl Albumin 3.4 3.4-5.0 gm/dl Globulin 3.3 2.5-4.0 gm/dl Albumin/Globulin Ratio 1.0 0.9-2 Influenza Type A (RT-PCR) Neg for Influ A NEG Influenza Type B (RT-PCR) Neg for Influ B NEG Diagnostic Radiology CHEST ONE VIEW PORTABLE CLINICAL HISTORY: Respiratory distress COMPARISON STUDY: 03/19/2017 FINDINGS: The cardiac and mediastinal contours are normal. There is no evidence of focal pulmonary consolidation. There is no evidence of failure. No pleural effusions are visualized.[Increased density at the lung bases, likely relates to technical factors given the patient's body habitus. There is upper lobe emphysema. IMPRESSION: Emphysema. No active disease in the chest. EKG Sinus tachycardia at 1 13 bpm Impression Assessment and Plan 61-year-old female with increased shortness of breath 4 days consistent with COPD exacerbation. 1. COPD exacerbation-increased respiratory distress improved with hour-long neb. Respiratory rate worsened when she came to the floor, plan to repeat neb now, continue bronchodilator therapy, Solu-Medrol 40 IV every 6, Levaquin IV, consult pulmonology in a.m. Of note patient has been out of prednisone for a couple of weeks secondary to no refills available and recent family deaths. This may be contributing. Flu is negative. Chest x-ray is clear. 2. Diabetes type 2-hold outpatient p.o. meds, continue insulin sliding scale and Lantus at scale 3 while on steroids as an inpatient. A1c in a.m. 3. Hypertension-controlled continue home regimen consisting of Norvasc 5, Lasix 20. 4. Chronic pain 5. Anxiety/depression 6. Chronic diastolic congestive heart failure-stable, euvolemic. Continue daily Lasix and potassium supplementation. 7. Anemia-chronic, stable, no indication for acute transfusion at this time. DVT prophylaxis-Lovenox Full code Disposition-telemetry Paola Callahan DO [facility] Advanced Directives Existing Living Will: Yes Existing Power of Customer Supply Coordinator: Yes Resuscitation Status VTE Prophylaxis Will order VTE Prophylaxis: Yes
[2017-05-06] MEDS ORDERED: ALBUT/IPRATROP 3MG/0.5MG NEB 3 ML VIAL INH ONE (04:00)
[2017-05-06] MEDS ORDERED: PHARMACY GLYCEMIC MGMT CONSULT PRN (04:26)
[2017-05-06] MEDS: METHYLPREDNISOLONE IV 40 MG in SYRINGE 0 ML IV SCH ×4 (04:28→20:12)
[2017-05-06] MEDS: LEVOFLOXACIN / D5W 750 MG in PREMIXED IN D5W 150 ML IV SCH (04:28)
[2017-05-06] MEDS: ALBUT/IPRATROP 3MG/0.5MG NEB 3 ML VIAL INH SCH ×4 (07:27→19:11)
[2017-05-06 08:01] LABS: HEMOGLOBIN A1C 7.1 % (4.5-5.6)
[2017-05-06] MEDS: MAGNESIUM OXIDE 400 MG TAB PO SCH (08:17)
[2017-05-06] MEDS: ASPIRIN 81 MG ECTAB PO SCH (08:18)
[2017-05-06] MEDS: CYANOCOBALAMIN 500 MCG TAB (VIT B-12) PO SCH (08:18)
[2017-05-06] MEDS: PANTOprazole SOD 40 MG TAB PO SCH (08:18)
[2017-05-06] MEDS: GABAPENTIN 100 MG CAP PO SCH ×3 (08:18→20:14)
[2017-05-06] MEDS: ATORVASTATIN 40 MG TAB PO SCH (08:18)
[2017-05-06] MEDS: POTASSIUM CHLORIDE 10 MEQ TABCR PO SCH (08:18)
[2017-05-06] MEDS: FERROUS SULFATE 325 MG TAB PO SCH (08:19)
[2017-05-06] MEDS: PRAMIPEXOLE DIHYDROCHLORIDE 0.5 MG TAB PO SCH ×3 (08:19→20:15)
[2017-05-06] MEDS: BACLOFEN 10 MG TAB PO SCH ×2 (08:19→20:14)
[2017-05-06] MEDS: FUROSEMIDE 20 MG TAB PO SCH (08:20)
[2017-05-06] MEDS: AMLODIPINE BESYLATE 5 MG TAB PO SCH (08:20)
[2017-05-06] MEDS: FLUTICASONE PROPIONATE NA SPR 16 GM BTL NAE SCH ×2 (08:21→20:10)
[2017-05-06] MEDS: ENOXAPARIN 40 MG/0.4 ML SYR SC SCH (08:21)
[2017-05-06] MEDS: INSULIN ASPART 100 UNITS/ML 3 ML PEN SC SCH ×4 (08:28→20:11)
[2017-05-06] MEDS: INSULIN GLARGINE SOLOSTAR 100 UNITS/ML 3 ML PEN SC SCH (08:48)
--- NOTE | 2017-05-06 11:13 | Pulmonary Consultation ---
History General Date of Service: May 06, 2017. Chief Complaint: Asthma without asthmaticus Stated Complaint: Copd Exacerbation HPI The patient is a 61 year old female who presents to [facility] with complaints of Copd Exacerbation. The patient's primary care provider is Martina Jay M.D.. This is a 61-year-old -[place]ian female well-known to our service. She has 11 admissions in the last 12 months for asthma exacerbation. She states that over the last several days she has had progressive shortness of breath and increased wheezes. She recently had travel to the [facility] for her sister's and when she arrived home she began having increased shortness of breath which she thought was due to anxiety. Over the last 2-3 days she has had increased wheezes and shortness of breath with no chest pain or tightness but with her usual heaviness of chest. She denies any back pain or shoulder pain. She does have a nonproductive cough and reports some new hoarseness in her voice. She denies any fever chills. She reports that she has not a smoker and has no illicit drug use. She is followed closely by Dr. Martina Abrams at the [facility] internal medicine office. There was one case where she tested positive for benzodiazepines which were presumably provided by the ambulance crew when she was transported. She does report use of [place] as prescribed by Dr. Martnia Abrams Historian: patient Review of Systems A total of 12 systems was reviewed and is negative other than as listed above in the HPI All Other Symptoms All Other Systems: Reviewed and Negative Past Medical History Past Medical History: Medical Problems: (1) Acute respiratory failure (2) Anemia (3) Asthma (4) Asthma, Unspecified (5) Asymptomatic microscopic hematuria (6) Carpal tunnel syndrome (7) Chronic diastolic (congestive) heart failure (8) COPD (chronic obstructive pulmonary disease) (9) COPD exacerbation (10) Depression (11) Diabetes mellitus, type 2 (12) Esophageal Reflux (13) GERD (gastroesophageal reflux disease) (14) Hiatal hernia (15) History of cervical cancer (16) Hyperlipidemia (17) Hypertension (18) Hypertension (19) Intervertebral disc disorder (20) Morbid obesity with BMI of 40.0-44.9, adult (21) Nocturnal hypoxia (22) Obstructive Chronic Bronchitis With Acute Bronchitis (23) Osteoarthritis (24) Panlobular emphysema (25) Reflux esophagitis (26) Restless leg syndrome (27) Restless Legs Syndrome (28) Rheumatoid Arthritis (29) Tobacco Use Disorder Past Medical History: COPD, other Past Surgical History: Surgical Problems: (1) H/O colonoscopy (2) History of esophagogastroduodenoscopy (EGD) Past Surgical History: no surgical history Family History Diabetes mellitus FH: heart disease FH: lung disease FHx: cancer Hypertension Social History Hx Tobacco Use In Past Year?: No Smoking Status: Former Smoker (Quit 2-1/2 years ago) Alcohol: socially Drug Use: other (Marijuana use as a youngster. No use for decades. Denies any history of cocaine or heroin or other illicit drug use) Marital status: single Housing status: lives with family (Lives with daughter) Occupational Status: disabled Immunizations History of Influenza Vaccine: Yes Influenza Vaccine Date: Nov 14, 2016 History of Tetanus Vaccine?: No Tetanus Immunization Date: Dec 31, 2008 History of Pneumococcal: Yes Pneumococcal Date: Feb 23, 2016 History of Hepatitis B Vaccine: Yes Hepatitis Immunization Date: Jun 25, 2013 History of MDRO History of MDRO: No Allergies Coded Allergies: NO KNOWN DRUG ALLERGIES (Verified Allergy, Unknown, n/a, 05/05/17) POLLEN (Verified Allergy, Unknown, SNEEZE,COUGH-WEEDS,GRASS,POLLEN, 05/05/17 ) Current Medications Reported Home Medications Medications Dose Route/Sig Max Daily Dose Days Date Category Dose Instructions Arnuity Ellipta (Fluticasone Furoate (Inhalatio) 200 Mcg/Act Inh 1 Puff INH DAILY 05/06/17 Reported Lioresal (Baclofen) 10 Mg Tab 10 Mg PO BID 05/06/17 Reported Guaifenesin 400 Mg Tab 400 Mg PO UD PRN 05/06/17 Reported Brovana (Arformoterol Tartrate) 15 Mcg/2 Ml Neb 15 Mcg INH BID PRN 05/06/17 Reported Lipitor (Atorvastatin Calcium) 40 Mg Tab 40 Mg PO DAILY 05/06/17 Reported Zithromax (Azithromycin) 250 Mg Tab 25 Mg PO DAILY PRN 05/06/17 Reported 2 tabs day 1,then 1 tab daily until gone Ferrous Sulfate 325 Mg Tab 325 Mg PO DAILY 05/06/17 Reported Xanax (Alprazolam) 0.5 Mg Tab 0.5 Mg PO DAILY PRN 05/06/17 Reported Prednisone 10 Mg Tab 10 Mg PO UD 03/23/17 Rx take 4 tabs po BID x 3 days, then take 6 tabs po daily x 4 days, then take 5 tabs po daily x 4 days, then take 4 tabs po daily x 4 days, then take 3 tabs po daily x 4 days, then take 2 tabs po daily x 4 days, then take 1 tab po daily indefinitely Singulair (Montelukast Sodium) 10 Mg Tab 10 Mg PO DAILY 01/10/17 Reported Aspirin Ec (Aspirin) 81 Mg Tab 81 Mg PO DAILY 01/10/17 Reported Glimepiride 1 Mg Tab 0.5 Tab PO DAILY PRN 11/28/16 Reported As needed when blood sugars elevated on prednisone. Mirapex (Pramipexole Dihydrochloride) 0.5 Mg Tab 0.5 Mg PO TID 11/28/16 Reported Oxygen Gas 3 Liters NA UD 10/13/16 Reported USE WHEN SLEEPING AND NEEDED Mag-Ox (Magnesium Oxide) 400 Mg Tab 400 Mg PO DAILY 10/13/16 Reported Potassium Chloride Er (Potassium Chloride) 10 Meq Tab 10 Meq PO DAILY 10/13/16 Reported Combivent Respimat (Ipratropium-Albuterol) 1 Aer Aer 1 Puff INH QID 10/13/16 Reported Ventolin Hfa (Albuterol) 200 Puffs/15522 Mcg Aers 2 Puffs INH Q4H PRN 10/13/16 Reported Lasix (Furosemide) 20 Mg Tab 20 Mg PO QAM 10/13/16 Reported Amlodipine Besylate 5 Mg Tab 5 Mg PO DAILY 10/13/16 Reported Fluticasone Propionate 50 Mcg/Act Spr 2 Sprays LIDYA BID 09/22/16 Reported [place] 5MG/325MG (Acetaminophen/Hydrocodone Bitart) Tab 1 Tablet PO Q8 PRN 09/22/16 Reported Vitamin B12 (Cyanocobalamin) 1,000 Mcg Tab 1,000 Mcg PO DAILY 02/21/16 Reported Duoneb (Ipratropium-Albuterol) 3 Ml Nebu 1 Vial NEB Q4H PRN 12/28/15 Reported Amitriptyline HCl 10 Mg Tab 10 Mg PO HS 12/28/15 Reported Flexeril (Cyclobenzaprine Hcl) 10 Mg Tab 10 Mg PO BID PRN 07/23/15 Reported Glucophage (Metformin Hcl) 1,000 Mg Tab 1,000 Mg PO BID 07/23/15 Reported Protonix (Pantoprazole Sodium) 40 Mg Tab 40 Mg PO QAM 07/23/15 Reported TAKE THIS MEDICATION ONCE DAILY 30 MINUTES BEFORE FIRST MEAL OF THE DAY Zantac (Ranitidine HCl) 300 Mg Tab 300 Mg PO HS 07/23/15 Reported Neurontin (Gabapentin) 100 Mg Cap 100 Mg PO TID 07/23/15 Reported Physical Physical Exam Vital Signs: Date Time Temp Pulse Resp B/P (MAP) Pulse Ox O2 Delivery O2 Flow Rate FiO2 05/06/17 07:51 36.7 113 20 129/74 (92) 91 Nasal Cannula 3.0 05/06/17 07:27 114 20 100 Nasal Cannula 3.0 05/06/17 04:00 Nasal Cannula 5.0 05/06/17 04:00 36.0 123 22 113/59 (77) 100 Nasal Cannula 5.0 05/06/17 03:05 118 26 100 Nasal Cannula 5.0 05/06/17 01:35 36.1 118 30 162/82 94 Mask 5.0 05/06/17 01:24 116 24 118/70 100 05/05/17 23:11 109 137/54 100 Nebulizer 05/05/17 22:43 113 18 96 Nasal Cannula 2.0 05/05/17 22:33 98 Nasal Cannula 2.0 05/05/17 22:33 98 Nasal Cannula 2.0 05/05/17 22:21 119 05/05/17 22:19 100 Nebulizer 05/05/17 22:15 36.8 122 30 161/108 100 Nebulizer Weight in Kilograms: 112.6 GENERAL : Except all defaults. Morbidly obese -Romanian woman with BMI of 44. Pleasant. Can speak in full sentences without dyspnea. EYES: No icterus, gaze conjugate NOSE: No evidence of epistaxis. Nasal cannula in place MOUTH: No lesions or candidiasis NECK: Supple LUNGS: Diffuse bronchospasm in all lung pool. No rhonchi or rales appreciated. Peak flow of 112 HEART: Regular, rate controlled ABDOMEN: Soft, NT, ND, BS Present EXTREMITIES: No LE edema, pedal pulses intact NEURO: A&OX3 Diagnostics Labs Results Past 24 Hours Test 05/05/17 22:40 05/06/17 00:40 05/06/17 05:37 05/06/17 06:39 Range/Units White Blood Count 6.09 4.8-10.8 K/uL Red Blood Count 3.79 4.2-5.4 M/uL Hemoglobin 10.1 12.0-16.0 g/dL Hematocrit 32.7 37-47 % Mean Corpuscular Volume 86.3 80-100 fL Mean Corpuscular Hemoglobin 26.6 25-34 pg Mean Corpuscular Hemoglobin Concent 30.9 32-36 g/dl Platelet Count 330 130-400 K/uL Mean Platelet Volume 8.5 7.4-10.4 fL Neutrophils (%) (Auto) 33.4 % Lymphocytes (%) (Auto) 52.5 % Monocytes (%) (Auto) 10.0 % Eosinophils (%) (Auto) 3.4 % Basophils (%) (Auto) 0.5 % Neutrophils # (Auto) 2.03 1.4-6.5 K/uL Lymphocytes # (Auto) 3.20 1.2-3.4 K/uL Monocytes # (Auto) 0.61 0.11-0.59 K/uL Eosinophils # (Auto) 0.21 0-0.5 K/uL Basophils # (Auto) 0.03 0-0.2 K/uL RDW Standard Deviation 47.3 36.4-46.3 fL RDW Coefficient of Variation 15.2 11.5-14.5 % Immature Granulocyte % (Auto) 0.2 % Immature Granulocyte # (Auto) 0.01 0.00-0.02 K/uL Hypochromasia PRESENT Prothrombin Time 9.9 9.0-12.0 SECONDS Prothromb Time International Ratio 0.9 0.9-1.1 Activated Partial Thromboplast Time 26.4 21.0-31.0 SECONDS Partial Thromboplastin Ratio 1.0 Sodium Level 140 136-145 mmol/L Potassium Level 3.5 3.5-5.1 mmol/L Chloride Level 105 98-107 mmol/L Carbon Dioxide Level 27 21-32 mmol/L Anion Gap 8.0 3-11 mmol/L Blood Urea Nitrogen 10 7-18 mg/dl Creatinine 0.94 0.60-1.20 mg/dl Est Creatinine Clear Calc Drug Dose 75.4 ml/min Estimated GFR () 75.4 Estimated GFR (Non- 65.0 BUN/Creatinine Ratio 10.2 10-20 Random Glucose 117 70-99 mg/dl Calcium Level 8.9 8.5-10.1 mg/dl Total Bilirubin 0.2 0.2-1 mg/dl Aspartate Amino Transf (AST/SGOT) 18 15-37 U/L Alanine Aminotransferase (ALT/SGPT) 36 12-78 U/L Alkaline Phosphatase 86 45-117 U/L Troponin I < 0.015 0-0.045 ng/ml Pro-B-Type Natriuretic Peptide 12 0-900 pg/ml Total Protein 6.7 6.4-8.2 gm/dl Albumin 3.4 3.4-5.0 gm/dl Globulin 3.3 2.5-4.0 gm/dl Albumin/Globulin Ratio 1.0 0.9-2 Influenza Type A (RT-PCR) Neg for Influ A NEG Influenza Type B (RT-PCR) Neg for Influ B NEG Estimated Average Glucose 157 mg/dl Hemoglobin A1c 7.1 4.5-5.6 % Bedside Glucose 262 70-90 mg/dl Diagnostic Radiology CHEST ONE VIEW PORTABLE CLINICAL HISTORY: Respiratory distress COMPARISON STUDY: 03/19/2017 FINDINGS: The cardiac and mediastinal contours are normal. There is no evidence of focal pulmonary consolidation. There is no evidence of failure. No pleural effusions are visualized.[Increased density at the lung bases, likely relates to technical factors given the patient's body habitus. There is upper lobe emphysema. IMPRESSION: Emphysema. No active disease in the chest. Electronically signed by: Byron Sauceda M.D. 05/05/2017 10:45 PM Impression Assessment and Plan Acute asthma exacerbation * Patient was significant improvement with use of duo nebs, antibiotics, and methylprednisolone * She continues to have significant wheezes but is oxygenating well on 3 L/min via nasal cannula * We continue antibiotics empirically although chest x-ray is clear * Patient has no elevation of WBCs and no significant eosinophils on the differential * Would continue to monitor in telemetry as hypoxia has been known to trigger arrhythmia with this patient * Will also continue montelukast (Singulair) as patient has had multiple allergic triggers to exacerbation in the past DVT prophylaxis * Lovenox * Ambulate as tolerated Thank you for including us in the care of this patient. Please refer to Dr. Dunne's addendum for further recommendations.
--- NOTE | 2017-05-06 11:58 | Pharmacy Progress Note ---
Glycemic Control Intl Consult Date of Service May 06, 2017. Scope Glycemic Pharmacist consulted by Dr Callahan on 05/06/17 for glycemic control and to write orders per [facility] inpatient glycemic control protocol Objective Weight (Kilograms): 112.600 Accuchecks BSG (last 24hrs): Test 05/05/17 22:40 05/06/17 06:39 Random Glucose 117 mg/dl (70-99) Bedside Glucose 262 mg/dl (70-90) Laboratory Data (last 24hrs) Test 05/05/17 22:40 05/06/17 05:37 Anion Gap 8.0 mmol/L BUN/Creatinine Ratio 10.2 Blood Urea Nitrogen 10 mg/dl Creatinine 0.94 mg/dl Potassium Level 3.5 mmol/L Sodium Level 140 mmol/L White Blood Count 6.09 K/uL Red Blood Count 3.79 M/uL Hemoglobin 10.1 g/dL Hematocrit 32.7 % Mean Corpuscular Volume 86.3 fL Mean Corpuscular Hemoglobin 26.6 pg Mean Corpuscular Hemoglobin Concent 30.9 g/dl Platelet Count 330 K/uL Mean Platelet Volume 8.5 fL Neutrophils (%) (Auto) 33.4 % Lymphocytes (%) (Auto) 52.5 % Monocytes (%) (Auto) 10.0 % Eosinophils (%) (Auto) 3.4 % Basophils (%) (Auto) 0.5 % Neutrophils # (Auto) 2.03 K/uL Lymphocytes # (Auto) 3.20 K/uL Monocytes # (Auto) 0.61 K/uL Eosinophils # (Auto) 0.21 K/uL Basophils # (Auto) 0.03 K/uL Hemoglobin A1c 7.1 % HbA1c Test 05/06/17 05:37 Hemoglobin A1c 7.1 % (4.5-5.6) H Recent Pertinent Medications Outpatient Anti-diabetic Regimen: * Metformin 1gram PO BID * Amaryl - 1/2 tab when on prednisone * A1c = 7.1 % 05/06/17 Risk Factors for Insulin Resistance: * Steroids: Solu-medrol [id number] dose in ED then 40mg IV Q6H * Pulmonary Infection: IV Levaquin * Diet: Type 2 DM Assessment & Plan ASSESSMENT: * 61 year old female type 2 diabetic admitted with COPD Exacerbation on high dose IV steroids * BSG already up from 117 to 262mg/dl after loading dose of Solu-medrol, will start Lantus and tight CF and CR. Pt needed >75units insulin/day when on IV steroids from previous admission this year. * ADA & AACE recommend a goal blood sugar range 140-180 mg/dl for the majority of critically ill & non-critically ill patients. However, more stringent targets may be selected in individual cases. Will utilize more stringent goal of 110-140mg/dl based on patient age & comorbidities & A1c. * Accuchecks overnight while on high dose IV steroids PLAN FOR INPATIENT GLYCEMIC CONTROL: * Holding outpatient oral diabetes medications * Basal insulin with LANTUS 40 units SQ x 1 dose now then * Lantus SQ daily based on BSG * 10 units BSG < 100mg/dl * 30 units BSG 100-180mg/dl * 40 units BSG > 180mg/dl * Correctional Insulin with NOVOLOG per scale ACHS or Q6hrs while NPO and overnight at 0000 and 0400 * Goal Range: Low 110 mg/dL - High 140 mg/dL * Correction Factor: 15 mg/dL/unit * Nutritional / Prandial insulin per carb ratio of 1 unit per 5 grams CHO consumed * Please note that the plan above was derived based on current level of insulin resistance and hospital stress. These recommendations are appropriate for inpatient admission only. Plan of care upon discharge will need to be reassessed to avoid potential outpatient hypo/hyperglycemia. Thank you.
[2017-05-06] MEDS: GUAIFENESIN 600 MG TABCR PO SCH ×2 (16:57→20:13)
--- NOTE | 2017-05-06 18:21 | Progress Note ---
Internal Med Progress Note Date of Service: May 06, 2017. Provider Documentation: SUBJECTIVE: Patient is still experiencing shortness of breath, ALDRIDGE Although mentions her breathing is much better since yesterday Has audible wheeze No fever or chills Monitor shows sinus tachycardia On 4 L oxygen by nasal cannula Continues to have bouts of coughing spell leading to hypoxic episode OBJECTIVE: Vital Signs-as noted below Exam: General-[obese, in moderate distress secondary to coughing and shortness of breath] Eyes-[sclera nonicteric, PERRLA, EOMI] ENT-[moist oral mucosa] Neck-[no JVD, no thyromegaly no carotid bruit] Lungs-[very poor air entry, diffuse wheezes in all lung pool, no rales noted] Heart-[tachycardic, regular] Abdomen- [soft nontender] Extremities-[no lower extremity edema, no rash or edema deformity] Neuro-[alert awake oriented 3, no focal neurological deficit] Lab data as noted below. ASSESSMENT & PLAN: 61-year-old female with increased shortness of breath 4 days consistent with COPD exacerbation. 1. Acute on chronic hypoxemic respiratory failure: Secondary to COPD exacerbation/bronchitis Has baseline advanced COPD on home O2 continuous - Presents with worsening of hypoxia increased work of breathing, cough with productive sputum -Flu PCR negative Symptoms moderately improved with IV Solu-Medrol, pneumatized treatment, empiric antibiotic with Levaquin Pulmonology eval requested 2: Type 2 diabetes Expected blood sugar to be elevated for IV steroid Insulin sliding scale, added basal Lantus -Hold outpatient oral hypoglycemics 3. Hypertension Controlled Continue home regimen of Norvasc 5 mg daily Lasix 20 mg daily 4. Chronic diastolic heart failure Volume status stable No evidence of decompensation Continue Lasix 20 mg daily 5. Anemia of chronic disease hemoglobin stable No report of GI bleed or dark stool, melena DVT PROPHYLAXIS Moderate to high risk Subcu Lovenox DISPOSITION Expected to be discharged home when medically stable Vital Signs: Date Time Temp Pulse Resp B/P (MAP) Pulse Ox O2 Delivery O2 Flow Rate FiO2 05/07/17 16:51 36.3 166 24 130/88 (102) 96 Nasal Cannula 2.0 05/07/17 16:00 Nasal Cannula 2.0 05/07/17 15:43 118 20 98 Nasal Cannula 2.0 05/07/17 12:00 Nasal Cannula 2.0 05/07/17 11:29 36.6 121 20 138/90 (106) 98 Nasal Cannula 2.0 05/07/17 11:13 121 22 98 Nasal Cannula 2.0 05/07/17 08:00 Nasal Cannula 5.0 05/07/17 07:52 36.6 113 20 131/74 (93) 100 Nasal Cannula 1.0 05/07/17 07:28 122 24 98 Nasal Cannula 3.0 05/07/17 04:09 36.7 124 20 134/72 (92) 97 Nasal Cannula 05/07/17 04:00 Nasal Cannula 5.0 05/06/17 23:59 Nasal Cannula 5.0 05/06/17 23:19 36.7 118 20 142/74 (96) 100 Nasal Cannula 05/06/17 20:43 37.0 116 24 152/89 (110) 95 Nasal Cannula 3.0 05/06/17 20:00 Nasal Cannula 5.0 05/06/17 19:13 128 24 38 Nasal Cannula 3.0 Lab Results: Results Past 24 Hours Test 05/06/17 20:11 05/06/17 23:22 05/07/17 04:50 05/07/17 07:11 Range/Units Bedside Glucose 138 258 265 169 70-90 mg/dl Test 05/07/17 11:13 05/07/17 13:19 05/07/17 16:17 Range/Units Bedside Glucose 96 154 70-90 mg/dl D-Dimer 450 0-500 ug/L U
[2017-05-06] MEDS: HYDROCODONE/ACETAMIN 5/325MG TAB PO PRN (20:13)
[2017-05-06] MEDS: AMITRIPTYLINE HCL 10 MG TAB PO SCH (20:14)
[2017-05-06] MEDS: MONTELUKAST SOD 10 MG TAB PO SCH (20:15)
[2017-05-06] MEDS: RANITIDINE HCL 150 MG TAB PO SCH (20:15)
[2017-05-07] VITALS (9 sets, daily range): BP systolic 130–150; BP diastolic 72–90; PULSE 109–166; TEMP 36.3–36.7; O2SAT 96–100
[2017-05-07] MEDS: INSULIN ASPART 100 UNITS/ML 3 ML PEN SC SCH ×7 (00:02→23:56)
[2017-05-07] MEDS: ZOLPIDEM TARTRATE 5 MG TAB PO PRN ×3 (00:03→23:49)
[2017-05-07] MEDS: METHYLPREDNISOLONE IV 40 MG in SYRINGE 0 ML IV SCH ×4 (04:47→20:38)
[2017-05-07] MEDS: LEVOFLOXACIN / D5W 750 MG in PREMIXED IN D5W 150 ML IV SCH (04:47)
[2017-05-07] MEDS ORDERED: COUGH DROP (SUGAR FREE) LOZ 24 LOZ/1 BOX LOZ ONE (04:49)
[2017-05-07] MEDS: ALBUT/IPRATROP 3MG/0.5MG NEB 3 ML VIAL INH SCH ×4 (07:28→19:49)
[2017-05-07] MEDS: GUAIFENESIN 600 MG TABCR PO SCH ×2 (08:12→20:39)
[2017-05-07] MEDS: CYANOCOBALAMIN 500 MCG TAB (VIT B-12) PO SCH (08:13)
[2017-05-07] MEDS: FUROSEMIDE 20 MG TAB PO SCH (08:13)
[2017-05-07] MEDS: ATORVASTATIN 40 MG TAB PO SCH (08:14)
[2017-05-07] MEDS: GABAPENTIN 100 MG CAP PO SCH ×3 (08:14→20:39)
[2017-05-07] MEDS: AMLODIPINE BESYLATE 5 MG TAB PO SCH (08:14)
[2017-05-07] MEDS: FERROUS SULFATE 325 MG TAB PO SCH (08:14)
[2017-05-07] MEDS: BACLOFEN 10 MG TAB PO SCH ×2 (08:14→20:39)
[2017-05-07] MEDS: POTASSIUM CHLORIDE 10 MEQ TABCR PO SCH (08:14)
[2017-05-07] MEDS: PANTOprazole SOD 40 MG TAB PO SCH (08:14)
[2017-05-07] MEDS: MAGNESIUM OXIDE 400 MG TAB PO SCH (08:15)
[2017-05-07] MEDS: ASPIRIN 81 MG ECTAB PO SCH (08:15)
[2017-05-07] MEDS: ENOXAPARIN 40 MG/0.4 ML SYR SC SCH (08:15)
[2017-05-07] MEDS: FLUTICASONE PROPIONATE NA SPR 16 GM BTL NAE SCH ×2 (08:15→20:39)
[2017-05-07] MEDS: PRAMIPEXOLE DIHYDROCHLORIDE 0.5 MG TAB PO SCH ×3 (08:16→20:38)
[2017-05-07] MEDS: INSULIN GLARGINE SOLOSTAR 100 UNITS/ML 3 ML PEN SC SCH (08:21)
--- NOTE | 2017-05-07 08:32 | Progress Note ---
Internal Med Progress Note Date of Service: May 07, 2017. Provider Documentation: SUBJECTIVE: Breathing much better today, no audible wheeze Minimal cough, no fever or chills Mentions of less chest tightness Had an uneventful night Remains sinus tachycardia heart rate at 120s She denies of any feeling of palpitation, chest tightness, dizzy spells or lightheadedness OBJECTIVE: Vital Signs-as noted below Exam: General-[obese, no sign of distress Eyes-[sclera nonicteric, PERRLA, EOMI] ENT-[moist oral mucosa] Neck-[no JVD, no thyromegaly no carotid bruit] Lungs-improved auscultation today, air entry noted, minimal wheeze, no rales Heart-[tachycardic, regular] Abdomen- [soft nontender] Extremities-[no lower extremity edema, no rash or edema deformity] Neuro-[alert awake oriented 3, no focal neurological deficit] Lab data as noted below. ASSESSMENT & PLAN: 61-year-old female with increased shortness of breath 4 days consistent with COPD exacerbation. 1. Acute on chronic hypoxemic respiratory failure: Secondary to COPD exacerbation/bronchitis Has baseline advanced COPD on home O2 continuous - Presents with worsening of hypoxia increased work of breathing, cough with productive sputum -Flu PCR negative Symptoms moderately improved with IV Solu-Medrol, pneumatized treatment, empiric antibiotic with Levaquin Pulmonology eval requested-appreciate input Sinus tachycardia Remains tachycardic heart rate between 110 220 Respiratory status much improved today/no hypoxia / no increased work of breathing Concern for thromboembolic episode -Ordered for CT chest with contrast, lower extremity Doppler to rule out DVT 2: Type 2 diabetes Expected blood sugar to be elevated for IV steroid Insulin sliding scale, added basal Lantus -Hold outpatient oral hypoglycemics 3. Hypertension Controlled Continue home regimen of Norvasc 5 mg daily Lasix 20 mg daily 4. Chronic diastolic heart failure Volume status stable No evidence of decompensation Continue Lasix 20 mg daily 5. Anemia of chronic disease hemoglobin stable No report of GI bleed or dark stool, melena DVT PROPHYLAXIS Moderate to high risk Subcu Lovenox DISPOSITION Expected to be discharged home when medically stable Vital Signs: Date Time Temp Pulse Resp B/P (MAP) Pulse Ox O2 Delivery O2 Flow Rate FiO2 05/07/17 20:28 36.6 109 26 150/84 (106) 99 Nasal Cannula 2.0 05/07/17 20:00 Nasal Cannula 2.0 05/07/17 19:52 119 20 98 Nasal Cannula 2.0 05/07/17 16:51 36.3 166 24 130/88 (102) 96 Nasal Cannula 2.0 05/07/17 16:00 Nasal Cannula 2.0 05/07/17 15:43 118 20 98 Nasal Cannula 2.0 05/07/17 12:00 Nasal Cannula 2.0 05/07/17 11:29 36.6 121 20 138/90 (106) 98 Nasal Cannula 2.0 05/07/17 11:13 121 22 98 Nasal Cannula 2.0 05/07/17 08:00 Nasal Cannula 5.0 05/07/17 07:52 36.6 113 20 131/74 (93) 100 Nasal Cannula 1.0 05/07/17 07:28 122 24 98 Nasal Cannula 3.0 05/07/17 04:09 36.7 124 20 134/72 (92) 97 Nasal Cannula 05/07/17 04:00 Nasal Cannula 5.0 05/06/17 23:59 Nasal Cannula 5.0 05/06/17 23:19 36.7 118 20 142/74 (96) 100 Nasal Cannula Lab Results: Results Past 24 Hours Test 05/06/17 23:22 05/07/17 04:50 05/07/17 07:11 05/07/17 11:13 Range/Units Bedside Glucose 258 265 169 96 70-90 mg/dl Test 05/07/17 13:19 05/07/17 16:17 05/07/17 20:00 Range/Units D-Dimer 450 0-500 ug/L FEU Bedside Glucose 154 190 70-90 mg/dl
[2017-05-07] MEDS: HYDROCODONE/ACETAMIN 5/325MG TAB PO PRN ×2 (09:58→20:39)
--- NOTE | 2017-05-07 13:07 | Progress Note ---
Progress Note Date of Service May 07, 2017. Progress Note Patient remains in sinus tachycardia in 120s denies of any shortness of breath or pleuritic chest pain Patient is a high risk for thromboembolic event, DVT/PE Has been on Lovenox subcu DVT prophylaxis since admission CT chest with contrast : No evidence of pulmonary embolism Severe pulmonary emphysema. No evidence of acute parenchymal consolidation Bilateral lower extremity Doppler -negative for DVT Continue to monitor in telemetry
--- NOTE | 2017-05-07 13:22 | Pharmacy Progress Note ---
Pharmacy Glycemic Short Note 2 Date of Service May 07, 2017. OUTPATIENT ANTIDIABETIC REGIMEN: * Metformin 1gram PO BID * Amaryl - 1/2 tab when on prednisone * A1c = 7.1 % 05/06/17 Test 05/06/17 16:18 05/06/17 20:11 05/06/17 23:22 05/07/17 04:50 Bedside Glucose 168 mg/dl (70-90) 138 mg/dl (70-90) 258 mg/dl (70-90) 265 mg/dl (70-90) Test 05/07/17 07:11 05/07/17 11:13 Bedside Glucose 169 mg/dl (70-90) 96 mg/dl (70-90) ASSESSMENT: * Blood sugars pretty well controlled, but did go into 200s overnight, and were corrected with Novolog CF. Will continue overnight accuchecks while on IV steroids Q6H. * Tighten CF and CR slightly, may need to add bedtime Lantus, AM lantus is on a scale and should last 24 hours, consider adding if BSGs continue to increase overnight despite correctional insulin. PLAN FOR INPATIENT GLYCEMIC CONTROL: * Hold outpatient oral diabetes medications * Basal insulin * Lantus SQ daily per BSG * BSG < 110mg/dl - 10 units * BSG 110-180 - 40 units * BSG > 180 - 50 units * Bolus insulin * NovoLog per scale ACHS or Q6hrs while NPO * Goal Range: Low 110 mg/dL - High 140 mg/dL * TIGHTEN: Correction Factor: 12 mg/dL/unit * TIGHTEN: Nutritional / Prandial insulin per carb ratio of 1 unit per 4 grams CHO consumed PLAN FOR DISCHARGE: * A1c 7.1%, continue outpatient regimen
--- NOTE | 2017-05-07 13:58 | DIAGNOSTIC IMAGING REPORT ---
ULTRASOUND VENOUS DOPPLER LWR EXT BILA CLINICAL HISTORY: Lower extremity swelling COMPARISON STUDY: February 2016 FINDINGS: Real-time and color flow Doppler imaging were performed. Flow was seen within the femoral, popliteal and calf veins with no intraluminal thrombus demonstrated. The saphenous vein is patent. IMPRESSION: No evidence of lower extremity DVT. Electronically signed by: Byron Sauceda M.D. 05/07/2017 1:57 PM Dictated Date/Time: 05/07/2017 1:57 PM
--- NOTE | 2017-05-07 14:46 | DIAGNOSTIC IMAGING REPORT ---
CT ANGIOGRAM OF THE CHEST CLINICAL HISTORY: Shortness of breath. Tachycardia. COMPARISON STUDY: 03/18/2017 TECHNIQUE: Following the IV administration of 92 mL of Optiray-320, CT angiogram of the thorax was performed from the thoracic inlet to the lung bases utilizing the pulmonary embolus protocol. Images are reviewed in the axial, sagittal, and coronal planes. IV contrast was administered without complication. MIP imaging was performed. A dose lowering technique was utilized adhering to the principles of ALARA. CT DOSE: 793.96 mGy.cm FINDINGS: There is a partially visualized 14 mm upper pole right renal hypodense lesion No pathologically enlarged axillary mediastinal or hilar lymph nodes were visualized. There was no evidence of thoracic aortic dilatation. There were no pulmonary artery filling defects to indicate acute pulmonary embolism. No pleural effusions are visualized. There is severe pulmonary emphysema. There is no acute parenchymal consolidation. IMPRESSION: 1. No evidence of acute pulmonary embolism 2. Severe pulmonary emphysema 3. No evidence of acute parenchymal consolidation Electronically signed by: Byron Sauceda M.D. 05/07/2017 2:44 PM Dictated Date/Time: 05/07/2017 2:41 PM
--- NOTE | 2017-05-07 14:49 | Pulmonology Progress Note ---
Pulmonary Progress Note Date of Service May 07, 2017. Attending Dr. Dunne Subjective Patient sitting at bedside with no respiratory distress Continues with expiratory wheezes Oxygenating well with supplemental oxygen No fever chills sweats or rigors No cough or sputum production Objective Vital Signs - as noted below Laboratory Data - as noted below Physical Exam: General - NAD. Sitting on edge of bed reading the paper with no evidence of distress Eyes - No icterus, gaze conjugate ENT - Mucosa moist, no lesions or candidiasis. Nasal cannula in place Neck - Supple, No JVD Lungs - No rales or rhonchi. Continues with expiratory wheezes. Decreased breath sounds at the bases Heart - Regular, rate controlled Abdomen - Soft, NT, ND, BS present Extremities - No edema, pedal pulses intact Neuro - A&OX3 Assessment & Plan Acute asthma exacerbation * continue duo nebs, empiric antibiotics, and methylprednisolone. Changed to prednisone taper tomorrow * Wheezing is considerably improved. Titrate supplemental O2 as tolerated * We continue antibiotics empirically for COPD although chest x-ray is clear * Patient has no elevation of WBCs and no significant eosinophils on the differential * Would continue to monitor in telemetry as hypoxia has been known to trigger arrhythmia with this patient * Continue montelukast (Singulair) as patient has had multiple allergic triggers to exacerbation in the past DVT prophylaxis * Lovenox * Ambulate as tolerated Follow-up: Patient has pulmonary follow-up scheduled this week which needs to be rescheduled Patient also has appointment with Dr. Martina Abrams at [facility] office which may need rescheduled Thank you for including us in the care of this patient. Please refer to Dr. Dunne's addendum for further recommendations. Data Medications: Current Inpatient Medications Medications (Trade) Dose Ordered Sig/Allison Route Start Time Stop Time Status Last Admin Dose Admin Enoxaparin Sodium (Lovenox Inj) 40 mg DAILY SC 05/06/17 09:00 06/05/17 08:59 05/07/17 08:15 40 MG Acetaminophen (Tylenol Tab) 650 mg Q4H PRN PO 05/06/17 02:45 06/05/17 02:44 Ondansetron HCl (Zofran Inj) 4 mg Q6H PRN IV 05/06/17 02:45 06/05/17 02:44 Polyethylene (Miralax Powder Packet) 17 gm DAILY PRN PO 05/06/17 02:45 06/05/17 02:44 Insulin Aspart (novoLOG ASPART) SLIDING SCALE If C... ACHS SC 05/06/17 05:00 06/05/17 04:59 05/07/17 12:27 15 UNITS Glucose (Glucose 40% Gel) 15-30 GRAMS 15 GRAMS... UD PRN PO 05/06/17 02:45 06/05/17 02:44 Glucose (Glucose Chew Tab) 4-8 Tablets 4 Tabl... UD PRN PO 05/06/17 02:45 06/05/17 02:44 Dextrose (Dextrose 50% 50ML Syringe) 25-50ML OF 50% DW IV FOR... UD PRN IV 05/06/17 02:45 06/05/17 02:44 Glucagon (Glucagon Inj) 1 mg UD PRN SQ 05/06/17 02:45 06/05/17 02:44 Miscellaneous Information (Consult Glycemic Management Pharmacy) 1 ea UD PRN N/A 05/06/17 04:26 06/05/17 04:25 Albuterol/ Ipratropium (Duoneb) 3 ml QIDR INH 05/06/17 08:00 06/05/17 07:59 05/07/17 11:13 3 ML Methylprednisolone Sodium Succinate 40 mg/Syringe 0.64 ml @ 1.5 mls/min Q6H IV 05/06/17 04:00 06/05/17 03:59 05/07/17 10:00 1.5 MLS/MIN Alprazolam (Xanax Tab) 0.5 mg DAILY PRN PO 05/06/17 03:00 06/05/17 02:59 Amitriptyline HCl (Elavil Tab) 10 mg HS PO 05/06/17 21:00 06/05/17 20:59 05/06/17 20:14 10 MG Amlodipine Besylate (Norvasc Tab) 5 mg DAILY PO 05/06/17 09:00 06/05/17 08:59 05/07/17 08:14 5 MG Aspirin (Ecotrin Tab) 81 mg DAILY PO 05/06/17 09:00 06/05/17 08:59 05/07/17 08:15 81 MG Atorvastatin Calcium (Lipitor Tab) 40 mg DAILY PO 05/06/17 09:00 06/05/17 08:59 05/07/17 08:14 40 MG Baclofen (Lioresal Tab) 10 mg BID PO 05/06/17 09:00 06/05/17 08:59 05/07/17 08:14 10 MG Cyclobenzaprine HCl (Flexeril Tab) 10 mg BID PRN PO 05/06/17 03:00 06/05/17 02:59 Ferrous Sulfate (Feosol Tab) 325 mg DAILY PO 05/06/17 09:00 06/05/17 08:59 05/07/17 08:14 325 MG Fluticasone Propionate (Flonase Nasal [place]) 2 sprays BID LIDYA 05/06/17 09:00 06/05/17 08:59 05/07/17 08:15 2 SPRAYS Furosemide (Lasix Tab) 20 mg QAM PO 05/06/17 09:00 06/05/17 08:59 05/07/17 08:13 20 MG Gabapentin (Neurontin Cap) 100 mg TID PO 05/06/17 09:00 06/05/17 08:59 05/07/17 14:29 100 MG Acetaminophen/ Hydrocodone Bitart ([place] 5/325 Tab) 1 tab Q8H PRN PO 05/06/17 03:00 05/20/17 02:59 05/07/17 09:58 1 TAB Magnesium Oxide (Mag-Ox Tab) 400 mg DAILY PO 05/06/17 09:00 06/05/17 08:59 05/07/17 08:15 400 MG Montelukast Sodium (Singulair Tab) 10 mg HS PO 05/06/17 21:00 06/05/17 20:59 05/06/17 20:15 10 MG Pantoprazole Sodium (Protonix Tab) 40 mg QAM PO 05/06/17 09:00 06/05/17 08:59 05/07/17 08:14 40 MG Pramipexole Dihydrochloride (miraPEX TAB) 0.5 mg TID PO 05/06/17 09:00 06/05/17 08:59 05/07/17 14:29 0.5 MG Ranitidine HCl (zANTac TAB) 300 mg HS PO 05/06/17 21:00 06/05/17 20:59 05/06/17 20:15 300 MG Cyanocobalamin (Vitamin B-12 Tab) 1,000 mcg QAM PO 05/06/17 09:00 06/05/17 08:59 05/07/17 08:13 1,000 MCG Potassium Chloride (Klor-Con M10) 10 meq DAILY PO 05/06/17 09:00 06/05/17 08:59 05/07/17 08:14 10 MEQ Insulin Glargine (Lantus Solostar Pen) SEE PROTOCOL DAILY SC 05/06/17 08:00 06/05/17 07:59 05/07/17 08:21 40 UNITS Insulin Aspart (novoLOG ASPART) SLIDING SCALE If C... 0000,0400 SC 05/07/17 00:00 06/06/17 00:00 05/07/17 04:53 9 UNITS Guaifenesin (Mucinex Contr Rel Tab) 600 mg Q12 PO 05/06/17 16:00 06/05/17 15:59 05/07/17 08:12 600 MG Zolpidem Tartrate (Ambien Tab) 5 mg HS PRN PO 05/06/17 21:15 06/05/17 21:14 05/07/17 00:03 5 MG Vital Signs: Date Time Temp Pulse Resp B/P (MAP) Pulse Ox O2 Delivery O2 Flow Rate FiO2 05/07/17 12:00 Nasal Cannula 2.0 05/07/17 11:29 36.6 121 20 138/90 (106) 98 Nasal Cannula 2.0 05/07/17 11:13 121 22 98 Nasal Cannula 2.0 05/07/17 08:00 Nasal Cannula 5.0 05/07/17 07:52 36.6 113 20 131/74 (93) 100 Nasal Cannula 1.0 05/07/17 07:28 122 24 98 Nasal Cannula 3.0 05/07/17 04:09 36.7 124 20 134/72 (92) 97 Nasal Cannula 05/07/17 04:00 Nasal Cannula 5.0 05/06/17 23:59 Nasal Cannula 5.0 05/06/17 23:19 36.7 118 20 142/74 (96) 100 Nasal Cannula 05/06/17 20:43 37.0 116 24 152/89 (110) 95 Nasal Cannula .0 05/06/17 20:00 Nasal Cannula 5.0 05/06/17 19:13 128 24 38 Nasal Cannula 3.0 05/06/17 16:46 36.7 114 24 136/71 (92) 99 Ambu-Bag 6.0 05/06/17 16:00 Nasal Cannula 5.0 05/06/17 15:03 127 18 97 Nasal Cannula 3.0 Laboratory Results: Last 24 Hours Test 05/06/17 16:18 05/06/17 20:11 05/06/17 23:22 05/07/17 04:50 Bedside Glucose 168 mg/dl 138 mg/dl 258 mg/dl 265 mg/dl Test 05/07/17 07:11 05/07/17 11:13 05/07/17 13:19 Bedside Glucose 169 mg/dl 96 mg/dl D-Dimer 450 ug/L U
[2017-05-07] MEDS: RANITIDINE HCL 150 MG TAB PO SCH (20:38)
[2017-05-07] MEDS: AMITRIPTYLINE HCL 10 MG TAB PO SCH (20:38)
[2017-05-07] MEDS: MONTELUKAST SOD 10 MG TAB PO SCH (20:39)
[2017-05-07] MEDS: BENZONATATE 100MG CAP PO PRN (23:52)
[2017-05-08] VITALS (11 sets, daily range): BP systolic 132–162; BP diastolic 77–80; PULSE 100–118; TEMP 36.6–37; O2SAT 95–100
[2017-05-08] MEDS: INSULIN ASPART 100 UNITS/ML 3 ML PEN SC SCH ×6 (04:59→23:45)
[2017-05-08] MEDS: METHYLPREDNISOLONE IV 40 MG in SYRINGE 0 ML IV SCH ×2 (05:01→09:31)
[2017-05-08] MEDS: ALBUT/IPRATROP 3MG/0.5MG NEB 3 ML VIAL INH SCH ×4 (07:13→19:32)
[2017-05-08] MEDS: FLUTICASONE PROPIONATE NA SPR 16 GM BTL NAE SCH ×2 (09:00→19:53)
[2017-05-08] MEDS: AMLODIPINE BESYLATE 5 MG TAB PO SCH (09:29)
[2017-05-08] MEDS: GABAPENTIN 100 MG CAP PO SCH ×3 (09:29→19:55)
[2017-05-08] MEDS: CYANOCOBALAMIN 500 MCG TAB (VIT B-12) PO SCH (09:29)
[2017-05-08] MEDS: ENOXAPARIN 40 MG/0.4 ML SYR SC SCH (09:30)
[2017-05-08] MEDS: MAGNESIUM OXIDE 400 MG TAB PO SCH (09:30)
[2017-05-08] MEDS: GUAIFENESIN 600 MG TABCR PO SCH ×2 (09:30→19:56)
[2017-05-08] MEDS: BACLOFEN 10 MG TAB PO SCH ×2 (09:30→19:56)
[2017-05-08] MEDS: FUROSEMIDE 20 MG TAB PO SCH (09:30)
[2017-05-08] MEDS: PRAMIPEXOLE DIHYDROCHLORIDE 0.5 MG TAB PO SCH ×3 (09:30→19:54)
[2017-05-08] MEDS: ASPIRIN 81 MG ECTAB PO SCH (09:30)
[2017-05-08] MEDS: ATORVASTATIN 40 MG TAB PO SCH (09:30)
[2017-05-08] MEDS: POTASSIUM CHLORIDE 10 MEQ TABCR PO SCH (09:30)
[2017-05-08] MEDS: FERROUS SULFATE 325 MG TAB PO SCH (09:30)
[2017-05-08] MEDS: INSULIN GLARGINE SOLOSTAR 100 UNITS/ML 3 ML PEN SC SCH (09:33)
[2017-05-08] MEDS: PANTOprazole SOD 40 MG TAB PO SCH (09:49)
[2017-05-08] MEDS: BENZONATATE 100MG CAP PO PRN (09:49)
[2017-05-08] MEDS: HYDROCODONE/ACETAMIN 5/325MG TAB PO PRN ×2 (09:50→20:00)
--- NOTE | 2017-05-08 09:59 | Pharmacy Progress Note ---
Pharmacy Glycemic Short Note 2 Date of Service May 08, 2017. OUTPATIENT ANTIDIABETIC REGIMEN: * Metformin 1gram PO BID * Amaryl - 1/2 tab when on prednisone * A1c = 7.1 % 05/06/17 Item Value Date Time Bedside Glucose 265 mg/dl H 05/07/17 0450 Bedside Glucose 169 mg/dl H 05/07/17 0711 Bedside Glucose 96 mg/dl H 05/07/17 1113 Bedside Glucose 154 mg/dl H 05/07/17 1617 Bedside Glucose 190 mg/dl H 05/07/171999 Bedside Glucose 257 mg/dl H 05/07/17 2353 Bedside Glucose 120 mg/dl H 05/08/17 0358 Bedside Glucose 117 mg/dl H 05/08/17 0631 ASSESSMENT: * Patient is currently receiving an average of ~100 units of insulin per day * 40 units of basal insulin * 60 units of prandial/correctional insulin * BSGs ranging 96-265 over the past 24hrs * Anticipating insulin regimen will need adjusted for the next 24hrs d/t : * AM Fasting BSG = 117 mg/dl. This is in goal range with 40 units of Lantus + 10 units of NovoLog correction overnight. Therefore will change basal insulin dosing to 50 units SQ daily. * Total daily dose is heavily weighted towards Novolog. Will increase basal insulin dosing to more evenly re-distribute regimen 50%:50% basal:prandial to prevent hypo/hyperglycemia and highly fluctuating BSGs. * Solumedrol dosing continues at 40mg IV Q6hrs. High stress/weight based dosing of insulin still needed for significant steroid induced hyperglycemia. Will decrease insulin regimen as steroids are tapered since patient is not on insulin as an outpatient. PLAN FOR INPATIENT GLYCEMIC CONTROL: * Hold outpatient oral diabetes medications * Basal insulin: increasing dosing. * Lantus 50 units SQ daily in AM * Bolus insulin: no change. * NovoLog per scale ACHS or Q6hrs while NPO * Goal Range: Low 110 mg/dL - High 140 mg/dL * Correction Factor: 12 mg/dL/unit * Nutritional / Prandial insulin per carb ratio of 1 unit per 4 grams CHO consumed PLAN FOR DISCHARGE: * A1c 7.1%, continue outpatient regimen * Insulin dosing only needed in house for high dose RTC dosing of steroids. * Pt may need to use amaryl per outpatient med rec if prednisone taper is ordered at discharge.
--- NOTE | 2017-05-08 10:11 | ECHOCARDIOGRAM REPORT ---
*NOTICE TO RECEIVING DEMOCRAT AGENCY This information is strictly Confidential and protected under [place] law. [place] law prohibits you from making any further disclosure of this information unless further disclosure is expressly permitted by the written consent of the person to whom it pertains or is authorized by law. A general authorization for the release of medical or other information is not sufficient for this purpose. Hospital accepts no responsibility if the information is made available to any other person, INCLUDING THE PATIENT. Interpretation Summary * Name: PETRA POWERS Study Date: 05/08/2017 08:02 AM BP: 132/80 mmHg * Patient Location: C.2T\S\S233\S\1 HR: 104 * : 1955 (M/d/yyyy) Gender: Female Height: 62 in * Age: 61 yrs Ethnicity: AA Weight: 245 lb * Ordering Physician: Laurel Mabry * Referring Physician: Self, Referred * Performed By: Latonya Tan RDCS * * Reason For Study: Sinus Tachycardia * BSA: 2.1 m2 * Compared to prior study, changes are noted. * -- Conclusions -- * The rhythm is sinus tachycardia. * Ejection Fraction = 65-70%. * Aortic valve sclerosis mild, without significant aortic valvular stenosis. * There is trace mitral regurgitation. * There is trace tricuspid regurgitation. Procedure Details * A complete two-dimensional transthoracic echocardiogram was performed (2D, M-mode, Doppler and color flow Doppler). Left Ventricle * The left ventricle is normal in size. * The rhythm is sinus tachycardia. * There is no thrombus. * There is normal left ventricular wall thickness. * Ejection Fraction = 65-70%. * Left ventricular systolic function is normal. * The left ventricular wall motion is normal. Right Ventricle * The right ventricle is normal size. * The right ventricular systolic function is normal as assessed by tricuspid annular plane systolic excursion (TAPSE) (normal >1.5 cm). Atria * The left atrial size is normal. * Right atrial size is normal. * There is no evidence of atrial septal defect, but resolution does not allow assessment for a patent foramen ovale. Mitral Valve * The mitral valve is normal. * There is no mitral valve stenosis. * There is trace mitral regurgitation. Tricuspid Valve * The tricuspid valve is normal. * There is no tricuspid stenosis. * There is trace tricuspid regurgitation. * Doppler findings do not suggest pulmonary hypertension. Aortic Valve * The aortic valve is not well visualized. * Aortic valve sclerosis mild, without significant aortic valvular stenosis. * Aortic stenosis is absent. * There is no significant aortic regurgitation. Pulmonic Valve * The pulmonary valve is not well seen, but the Doppler examination is normal without significant regurgitation or stenosis. Great Vessels * The aortic root is normal size. Pericardium/Pleural * There is no pericardial effusion. Great Vessels * Normal inferior vena cava size and collapsability with sniff indicates a normal right atrial pressure of 3 mmHg Left Ventricular Diastolic Function * Pulse wave TDI of the anterior and posterior mitral annulas demonstrates normal LV relaxation MMode 2D Measurements and Calculations IVSd 10 cm IVSs 1.2 cm LVIDd 4.2 cm LVIDs 2.6 cm LVPWd 1.0 cm LVPWs 1.5 cm IVS/LVPW 0.98 FS 37.9 % EDV(Teich) 78.2 ml ESV(Teich) 24.7 ml EF(Teich) 68.5 % EDV(cubed) 73.6 ml ESV(cubed) 17.6 ml EF(cubed) 76.1 % % IVS thick 23.9 % % LVPW thick 45.9 % LV mass(C)d 138.2 grams LV mass(C)dI 66.3 grams/m\S\2 LV mass(C)s 111.4 grams LV mass(C)sI 53.4 grams/m\S\2 SV(Teich) 53.5 ml SI(Teich) 25.7 ml/m\S\2 SV(cubed) 56.0 ml SI(cubed) 26.9 ml/m\S\2 Ao root diam 2.2 cm Ao root area 4.0 cm\S\2 LA dimension 3.0 cm LA/Ao 1.4 LVOT diam 2.1 cm LVOT area 3.4 cm\S\2 LVAd ap4 28.0 cm\S\2 LVLd ap4 8.4 cm EDV(MOD-sp4) 86.5 ml EDV(sp4-el) 79.2 ml LVAs ap4 13.0 cm\S\2 LVLs ap4 6.6 cm ESV(MOD-sp4) 24.2 ml ESV(sp4-el) 21.8 ml EF(MOD-sp4) 72.1 % EF(sp4-el) 72.5 % LVAd ap2 25.0 cm\S\2 LVLd ap2 8.5 cm EDV(MOD-sp2) 69.6 ml EDV(sp2-el) 62.2 ml LVAs ap2 13.0 cm\S\2 LVLs ap2 7.3 cm ESV(MOD-sp2) 23.5 ml ESV(sp2-el) 19.5 ml EF(MOD-sp2) 66.3 % EF(sp2-el) 68.6 % LVLd %diff 1.0 % EDV(MOD-bp) 77.7 ml LVLs %diff 9.9 % ESV(MOD-bp) 24.9 ml EF(MOD-bp) 68.0 % SV(MOD-sp4) 62.4 ml SI(MOD-sp4) 29.9 ml/m\S\2 SV(MOD-sp2) 46.2 ml SI(MOD-sp2) 22.2 ml/m\S\2 SV(MOD-bp) 52.8 ml SI(MOD-bp) 25.3 ml/m\S\2 SV(sp4-el) 57.4 ml SI(sp4-el) 27.5 ml/m\S\2 SV(sp2-el) 42.7 ml SI(sp2-el) 20.5 ml/m\S\2 Doppler Measurements and Calculations MV E max chioma 102.3 cm/sec MV A max chioma 140.6 cm/sec MV E/A 0.73 MV dec time 0.11 sec Ao V2 max 225.3 cm/sec Ao max PG 20.3 mmHg Ao max PG (full) 14.0 mmHg Ao V2 mean 147.8 cm/sec Ao mean PG 9.9 mmHg Ao mean PG (full) 7.0 mmHg Ao V2 VTI 39.6 cm KAREN(I,A) 1.7 cm\S\2 KAREN(I,D) 1.7 cm\S\2 KAREN(V,A) 1.9 cm\S\2 KAREN(V,D) 1.9 cm\S\2 LV V1 max PG 6.3 mmHg LV V1 mean PG 3.0 mmHg LV V1 max 125.3 cm/sec LV V1 mean 79.9 cm/sec LV V1 VTI 20.2 cm SV(Ao) 156.8 ml SI(Ao) 75.2 ml/m\S\2 SV(LVOT) 69.2 ml SI(LVOT) 33.2 ml/m\S\2
--- NOTE | 2017-05-08 11:40 | Pulmonology Progress Note ---
Pulmonary Progress Note Date of Service May 08, 2017. Attending Dr. Solis Subjective Feeling improved today. Able to achieve 150 on spirometer with history 200. Denies chest pain, fevers or chills. She is anxious about her history of memory loss with benzodiazepine. She reports she has tolerated BiPAP/CPAP in the past and would be willing to try this modality. Objective 61-yo female well known to the outpatient office admitted through the ER 05/05/17 with productive cough and dyspnea in the setting of O2-dependant ACOS/pulmonary emphsyema. She has been admitted multiple times over 2017 - 2017 with exacerbation. Prior records were reviewed. Patient recent loss of her sister. In her bereavement, she reports benzodiazepine x 1 prior during the services. She reports that during and following these events, she noticed progressive symptoms of anxiety, dyspnea and cough. Admission exam notable for bronchoscopasm and were labs without leukocytosis, CE or ProBNP elevation. She was treated with bronchodilators, steroid and magnesium with continued anti-reflux and allergy regimen. Historically, she has demonstrated CO2 retention in the past. Outpatient attempts for PFTs and repeat sleep studies have been difficult to arrange secondary to her frequent admissions. CTA 05/07/17: no PE, severe emphysema. No consolidation Today: - O2 96-100% - 2LPM - HR: 101-110, HD stable. Afebrile - Echocardiogram: EF 60-70%, Trace MR/TR - Methylprednisolone Dose: 40mg IV Q6 Physical Exam: Constitutional: Well developed obese female lying in hospital bed. No acute distress Head: +facial symmetry Eyes: EOMi, PERRLA, no injection Mouth: moist mucous membranes. Mallampati IV. No erythema Respiratory: non-labored respirations. Bilateral wheeze with extended expiratory phase. Episode cough x 1 during exam CV: regular rate and rhythm. No murmur appreciated. Warm and perfused peripherally GI: Soft, active bowel sounds MSK/Extremities: Moving and developed symmetrically. +1 LE edema Neurologic: A&O. Good data recall. Appropriate affect. Assessment & Plan Exacerbation of Obstructive lung disease - Continue bronchodilators. Wean steroid to 30mg Q 8 hour dosing - Continue anti-reflux & allergy regimen - Restart 3x weekly azithromycin continuous - Avoid dosing narcotics and benzodiazepines - H/O recurrent hospitalizations with hypoxic hypercarbic respiratory failure and pulmonary emphysema - would likely qualify for nocturnal adaptive ventilation. Will attempt to arrange this. Patient and records reviewed. Agree with above plan. Data Medications: Current Inpatient Medications Medications (Trade) Dose Ordered Sig/Allison Route Start Time Stop Time Status Last Admin Dose Admin Enoxaparin Sodium (Lovenox Inj) 40 mg DAILY SC 05/06/17 09:00 06/05/17 08:59 05/08/17 09:30 40 MG Acetaminophen (Tylenol Tab) 650 mg Q4H PRN PO 05/06/17 02:45 06/05/17 02:44 Ondansetron HCl (Zofran Inj) 4 mg Q6H PRN IV 05/06/17 02:45 06/05/17 02:44 Polyethylene (Miralax Powder Packet) 17 gm DAILY PRN PO 05/06/17 02:45 06/05/17 02:44 Insulin Aspart (novoLOG ASPART) SLIDING SCALE If C... ACHS SC 05/06/17 05:00 06/05/17 04:59 05/08/17 09:32 11 UNITS Glucose (Glucose 40% Gel) 15-30 GRAMS 15 GRAMS... UD PRN PO 05/06/17 02:45 06/05/17 02:44 Glucose (Glucose Chew Tab) 4-8 Tablets 4 Tabl... UD PRN PO 05/06/17 02:45 06/05/17 02:44 Dextrose (Dextrose 50% 50ML Syringe) 25-50ML OF 50% DW IV FOR... UD PRN IV 05/06/17 02:45 06/05/17 02:44 Glucagon (Glucagon Inj) 1 mg UD PRN SQ 05/06/17 02:45 06/05/17 02:44 Miscellaneous Information (Consult Glycemic Management Pharmacy) 1 ea UD PRN N/A 05/06/17 04:26 06/05/17 04:25 Albuterol/ Ipratropium (Duoneb) 3 ml QIDR INH 05/06/17 08:00 06/05/17 07:59 05/08/17 11:17 3 ML Methylprednisolone Sodium Succinate 40 mg/Syringe 0.64 ml @ 1.5 mls/min Q6H IV 05/06/17 04:00 06/05/17 03:59 05/08/17 09:31 1.5 MLS/MIN Alprazolam (Xanax Tab) 0.5 mg DAILY PRN PO 05/06/17 03:00 06/05/17 02:59 Amitriptyline HCl (Elavil Tab) 10 mg HS PO 05/06/17 21:00 06/05/17 20:59 05/07/17 20:38 10 MG Amlodipine Besylate (Norvasc Tab) 5 mg DAILY PO 05/06/17 09:00 06/05/17 08:59 05/08/17 09:29 5 MG Aspirin (Ecotrin Tab) 81 mg DAILY PO 05/06/17 09:00 06/05/17 08:59 05/08/17 09:30 81 MG Atorvastatin Calcium (Lipitor Tab) 40 mg DAILY PO 05/06/17 09:00 06/05/17 08:59 05/08/17 09:30 40 MG Baclofen (Lioresal Tab) 10 mg BID PO 05/06/17 09:00 06/05/17 08:59 05/08/17 09:30 10 MG Cyclobenzaprine HCl (Flexeril Tab) 10 mg BID PRN PO 05/06/17 03:00 06/05/17 02:59 Ferrous Sulfate (Feosol Tab) 325 mg DAILY PO 05/06/17 09:00 06/05/17 08:59 05/08/17 09:30 325 MG Fluticasone Propionate (Flonase Nasal [place]) 2 sprays BID LIDYA 05/06/17 09:00 06/05/17 08:59 05/07/17 20:39 2 SPRAYS Furosemide (Lasix Tab) 20 mg QAM PO 05/06/17 09:00 06/05/17 08:59 05/08/17 09:30 20 MG Gabapentin (Neurontin Cap) 100 mg TID PO 05/06/17 09:00 06/05/17 08:59 05/08/17 09:29 100 MG Acetaminophen/ Hydrocodone Bitart ([place] 5/325 Tab) 1 tab Q8H PRN PO 05/06/17 03:00 05/20/17 02:59 05/08/17 09:50 1 TAB Magnesium Oxide (Mag-Ox Tab) 400 mg DAILY PO 05/06/17 09:00 06/05/17 08:59 05/08/17 09:30 400 MG Montelukast Sodium (Singulair Tab) 10 mg HS PO 05/06/17 21:00 06/05/17 20:59 05/07/17 20:39 10 MG Pantoprazole Sodium (Protonix Tab) 40 mg QAM PO 05/06/17 09:00 06/05/17 08:59 05/08/17 09:49 40 MG Pramipexole Dihydrochloride (miraPEX TAB) 0.5 mg TID PO 05/06/17 09:00 06/05/17 08:59 05/08/17 09:30 0.5 MG Ranitidine HCl (zANTac TAB) 300 mg HS PO 05/06/17 21:00 06/05/17 20:59 05/07/17 20:38 300 MG Cyanocobalamin (Vitamin B-12 Tab) 1,000 mcg QAM PO 05/06/17 09:00 06/05/17 08:59 05/08/17 09:29 1,000 MCG Potassium Chloride (Klor-Con M10) 10 meq DAILY PO 05/06/17 09:00 06/05/17 08:59 05/08/17 09:30 10 MEQ Insulin Aspart (novoLOG ASPART) SLIDING SCALE If C... 0000,0400 SC 05/07/17 00:00 06/06/17 00:00 05/07/17 23:56 10 UNITS Guaifenesin (Mucinex Contr Rel Tab) 600 mg Q12 PO 05/06/17 16:00 06/05/17 15:59 05/08/17 09:30 600 MG Zolpidem Tartrate (Ambien Tab) 5 mg HS PRN PO 05/06/17 21:15 06/05/17 21:14 05/07/17 23:49 5 MG Benzonatate (Tessalon Perles Cap) 100 mg Q8 PRN PO 05/07/17 14:45 06/06/17 14:44 05/08/17 09:49 100 MG Insulin Glargine (Lantus Solostar Pen) 50 units DAILY SC 05/08/17 09:00 06/07/17 08:59 05/08/17 09:33 50 UNITS Vital Signs: Date Time Temp Pulse Resp B/P (MAP) Pulse Ox O2 Delivery O2 Flow Rate FiO2 05/08/17 11:17 108 20 99 Nasal Cannula 2.0 05/08/17 08:01 36.6 101 20 132/80 (97) 96 Nasal Cannula 2.0 05/08/17 08:00 Nasal Cannula 2.0 05/08/17 07:13 110 20 100 Nasal Cannula 2.0 05/08/17 04:00 Nasal Cannula 2.0 05/08/17 03:59 36.6 104 18 144/77 (99) 100 Nasal Cannula 2.0 05/08/17 00:00 36.9 104 16 144/77 (99) 96 Nasal Cannula 2.0 05/08/17 00:00 Nasal Cannula 2.0 05/07/17 20:28 36.6 109 26 150/84 (106) 99 Nasal Cannula 2.0 05/07/17 20:00 Nasal Cannula 2.0 05/07/17 19:52 119 20 98 Nasal Cannula 2.0 05/07/17 16:51 36.3 166 24 130/88 (102) 96 Nasal Cannula 2.0 05/07/17 16:00 Nasal Cannula 2.0 05/07/17 15:43 118 20 98 Nasal Cannula 2.0 05/07/17 12:00 Nasal Cannula 2.0 Laboratory Results: Last 24 Hours Test 05/07/17 13:19 05/07/17 16:17 05/07/17 20:00 05/07/17 23:53 D-Dimer 450 ug/L FEU Bedside Glucose 154 mg/dl 190 mg/dl 257 mg/dl Test 05/08/17 03:58 05/08/17 06:31 Bedside Glucose 120 mg/dl 117 mg/dl
[2017-05-08] MEDS: METHYLPREDNISOLONE IV 30 MG in SYRINGE 0 ML IV SCH (18:05)
--- NOTE | 2017-05-08 19:09 | Progress Note ---
Internal Med Progress Note Date of Service: May 08, 2017. Provider Documentation: SUBJECTIVE: Improved breathing to baseline -No cough no shortness of breath noted -Minimum dyspnea on exertion -No fever or chills -Possible discharge home tomorrow OBJECTIVE: Vital Signs-as noted below Exam: General-[obese, no sign of distress Eyes-[sclera nonicteric, PERRLA, EOMI] ENT-[moist oral mucosa] Neck-[no JVD, no thyromegaly no carotid bruit] Lungs-improved auscultation today, air entry noted, minimal wheeze, no rales Heart-[tachycardic, regular] Abdomen- [soft nontender] Extremities-[no lower extremity edema, no rash or edema deformity] Neuro-[alert awake oriented 3, no focal neurological deficit] Lab data as noted below. ASSESSMENT & PLAN: 61-year-old female with increased shortness of breath 4 days consistent with COPD exacerbation. 1. Acute on chronic hypoxemic respiratory failure: Secondary to COPD exacerbation/bronchitis Has baseline advanced COPD on home O2 continuous - Presents with worsening of hypoxia increased work of breathing, cough with productive sputum -Flu PCR negative Symptoms moderately improved with IV Solu-Medrol, pneumatized treatment, empiric antibiotic with Levaquin Pulmonology eval requested-appreciate input - decrease Solu-Medrol to 30 mg every 8h -Start patient to oral prednisone taper tomorrow -Patient should be discharged with prolonged prednisone taper -Then should be on chronic prednisone 10 mg daily -Patient ran out of her prednisone supply which is related to bronchitis/COPD Sinus tachycardia -Improved Remains tachycardic heart rate between 110 220 Respiratory status much improved today/no hypoxia / no increased work of breathing -Ordered for CT chest with contrast-no evidence of PE, lower extremity Doppler - no DVT 2: Type 2 diabetes Expected blood sugar to be elevated for IV steroid Insulin sliding scale, added basal Lantus -Hold outpatient oral hypoglycemics 3. Hypertension Controlled Continue home regimen of Norvasc 5 mg daily Lasix 20 mg daily 4. Chronic diastolic heart failure Volume status stable No evidence of decompensation Continue Lasix 20 mg daily 5. Anemia of chronic disease hemoglobin stable No report of GI bleed or dark stool, melena DVT PROPHYLAXIS Moderate to high risk Subcu Lovenox DISPOSITION Expected to be discharged home when medically stable Vital Signs: Date Time Temp Pulse Resp B/P (MAP) Pulse Ox O2 Delivery O2 Flow Rate FiO2 05/08/17 20:36 36.9 112 20 162/79 (106) 99 Room Air 05/08/17 20:00 Nasal Cannula 2.0 05/08/17 19:34 118 20 99 Nasal Cannula 2.0 05/08/17 16:34 36.9 109 22 132/78 (96) 97 Nasal Cannula 2.0 05/08/17 16:00 Nasal Cannula 2.0 05/08/17 15:08 111 20 99 Nasal Cannula 2.0 05/08/17 12:00 Nasal Cannula 2.0 05/08/17 11:54 36.7 100 20 133/80 (97) 97 Nasal Cannula 2.0 05/08/17 11:17 108 20 99 Nasal Cannula 2.0 05/08/17 08:01 36.6 101 20 132/80 (97) 96 Nasal Cannula 2.0 05/08/17 08:00 Nasal Cannula 2.0 05/08/17 07:13 110 20 100 Nasal Cannula 2.0 05/08/17 04:00 Nasal Cannula 2.0 05/08/17 03:59 36.6 104 18 144/77 (99) 100 Nasal Cannula 2.0 05/08/17 00:00 36.9 104 16 144/77 (99) 96 Nasal Cannula 2.0 05/08/17 00:00 Nasal Cannula 2.0 Lab Results: Results Past 24 Hours Test 05/07/17 23:53 05/08/17 03:58 05/08/17 06:31 05/08/17 11:30 Range/Units Bedside Glucose 257 120 117 146 70-90 mg/dl Test 05/08/17 16:07 05/08/17 20:40 Range/Units Bedside Glucose 114 247 70-90 mg/dl
[2017-05-08] MEDS: AMITRIPTYLINE HCL 10 MG TAB PO SCH (19:54)
[2017-05-08] MEDS: RANITIDINE HCL 150 MG TAB PO SCH (19:56)
[2017-05-08] MEDS: MONTELUKAST SOD 10 MG TAB PO SCH (19:57)
[2017-05-08] MEDS: ZOLPIDEM TARTRATE 5 MG TAB PO PRN (23:43)
[2017-05-09] VITALS (7 sets, daily range): BP systolic 144–166; BP diastolic 88–99; PULSE 92–106; TEMP 36.5–36.8; O2SAT 95–100
[2017-05-09] MEDS: METHYLPREDNISOLONE IV 30 MG in SYRINGE 0 ML IV SCH ×2 (02:37→10:15)
[2017-05-09] MEDS: INSULIN ASPART 100 UNITS/ML 3 ML PEN SC SCH ×3 (04:00→12:11)
[2017-05-09] MEDS: ALBUT/IPRATROP 3MG/0.5MG NEB 3 ML VIAL INH SCH ×3 (07:12→14:59)
[2017-05-09] MEDS: GUAIFENESIN 600 MG TABCR PO SCH (07:41)
[2017-05-09] MEDS: AMLODIPINE BESYLATE 5 MG TAB PO SCH (07:41)
[2017-05-09] MEDS: FERROUS SULFATE 325 MG TAB PO SCH (07:41)
[2017-05-09] MEDS: POTASSIUM CHLORIDE 10 MEQ TABCR PO SCH (07:41)
[2017-05-09] MEDS: ATORVASTATIN 40 MG TAB PO SCH (07:41)
[2017-05-09] MEDS: BACLOFEN 10 MG TAB PO SCH (07:41)
[2017-05-09] MEDS: ASPIRIN 81 MG ECTAB PO SCH (07:41)
[2017-05-09] MEDS: PANTOprazole SOD 40 MG TAB PO SCH (07:41)
[2017-05-09] MEDS: ENOXAPARIN 40 MG/0.4 ML SYR SC SCH (07:42)
[2017-05-09] MEDS: PRAMIPEXOLE DIHYDROCHLORIDE 0.5 MG TAB PO SCH ×2 (07:42→13:47)
[2017-05-09] MEDS: FUROSEMIDE 20 MG TAB PO SCH (07:42)
[2017-05-09] MEDS: MAGNESIUM OXIDE 400 MG TAB PO SCH (07:42)
[2017-05-09] MEDS: CYANOCOBALAMIN 500 MCG TAB (VIT B-12) PO SCH (07:42)
[2017-05-09] MEDS: GABAPENTIN 100 MG CAP PO SCH ×2 (07:42→13:47)
[2017-05-09] MEDS: FLUTICASONE PROPIONATE NA SPR 16 GM BTL NAE SCH (07:43)
[2017-05-09] MEDS: INSULIN GLARGINE SOLOSTAR 100 UNITS/ML 3 ML PEN SC SCH (07:52)
[2017-05-09] MEDS: HYDROCODONE/ACETAMIN 5/325MG TAB PO PRN (07:56)
--- NOTE | 2017-05-09 09:58 | Pharmacy Progress Note ---
Pharmacy Glycemic Short Note 2 Date of Service May 09, 2017. OUTPATIENT ANTIDIABETIC REGIMEN: * Metformin 1gram PO BID * Amaryl - 1/2 tab when on prednisone * A1c = 7.1 % 05/06/17 Item Value Date Time Bedside Glucose 265 mg/dl H 05/07/17 0450 Bedside Glucose 169 mg/dl H 05/07/17 0711 Bedside Glucose 96 mg/dl H 05/07/17 1113 Bedside Glucose 154 mg/dl H 05/07/17 1617 Bedside Glucose 190 mg/dl H 05/07/17 2000 Bedside Glucose 257 mg/dl H 05/07/17 2353 Item Value Date Time Bedside Glucose 117 mg/dl H 05/08/17 0631 Bedside Glucose 146 mg/dl H 05/08/17 1130 Bedside Glucose 114 mg/dl H 05/08/17 1607 Bedside Glucose 247 mg/dl H 05/08/17 2040 Bedside Glucose 184 mg/dl H 05/08/17 2342 Item Value Date Time Bedside Glucose 90 mg/dl 05/09/17 0359 Bedside Glucose 136 mg/dl H 05/09/17 0642 Bedside Glucose 107 mg/dl H 05/09/17 1206 ASSESSMENT: * Patient is currently receiving an average of ~100 units of insulin per day * 50 units of basal insulin * 50 units of prandial/correctional insulin * BSGs ranging 90-247 over the past 24hrs * Changes needed to insulin regimen: * AM Fasting BSG = 136 mg/dl. This is in goal range with 50 units of Lantus. However, anticipate insulin requires will be less tomorrow with decreased steroid dosing. Will set a scale dosing for tomorrow based on BSG to reduce dose. * HS BSG elevated for unknown reason. Will not tighten CF/CR today since Solu- Medrol dosing just tapered, should yield a slight improvement in BSGs. BSGs trending down today. Will loosen CF/CR * Solumedrol dosing tapered yesterday from 40mg IV Q6hrs to SoluMedrol 30mg IV Q8hrs. High stress/weight based dosing of insulin still needed for significant steroid induced hyperglycemia with Solu-Medrol >80mg/day. Will decrease insulin regimen as steroids are tapered below 80mg/day since patient is not on insulin as an outpatient. PLAN FOR INPATIENT GLYCEMIC CONTROL: * Hold outpatient oral diabetes medications * Basal insulin: decrease dosing. * Lantus 35-40 units SQ daily in AM. * Will give reduced dosing of 35 units if BSG <120 mg/dl. * Bolus insulin: loosen parameters * NovoLog per scale ACHS or Q6hrs while NPO * Goal Range: Low 110 mg/dL - High 140 mg/dL * Correction Factor: 15 mg/dL/unit * Nutritional / Prandial insulin per carb ratio of 1 unit per 5 grams CHO consumed PLAN FOR DISCHARGE: * A1c 7.1%, continue outpatient regimen * Insulin dosing only needed in house for high dose RTC dosing of steroids. * Pt may need to use amaryl per outpatient med rec if prednisone taper is ordered at discharge.
--- NOTE | 2017-05-09 14:49 | Progress Note ---
Subjective Date of Service: May 09, 2017. Subjective Pt evaluation today including: conversation w/ patient, physical exam, lab review, review of studies, review of inpatient medication list Saw/examined the patient in room 233 She states she's doing well, no problems/issues to note breathing status is at baseline, currently on 3L of O2 Denies chest pain or any other symptoms at this time Eager to go home. Problem List Medical Problems: (1) Acute exacerbation of COPD with asthma Status: Acute (2) Acute respiratory distress Status: Acute (3) Anemia Status: Acute (4) Asthma exacerbation Status: Acute (5) Asthma exacerbation Status: Acute (6) Asthma exacerbation Status: Acute (7) Bronchospasm Status: Acute (8) Chronic obstructive pulmonary disease Status: Acute (9) COPD exacerbation Status: Acute (10) COPD exacerbation Status: Acute (11) COPD exacerbation Status: Acute (12) COPD exacerbation Status: Acute (13) Fever Status: Acute (14) Headache Status: Acute (15) Obesity Status: Acute (16) Respiratory distress Status: Acute (17) Respiratory distress Status: Acute (18) Respiratory failure Status: Acute (19) Respiratory failure Status: Acute (20) Sepsis Status: Acute (21) SOB (shortness of breath) Status: Acute (22) Wheezing Status: Acute Review of Systems Constitutional: No fever, No chills Respiratory: + shortness of breath (at baseline), No cough, No sputum, No wheezing, No dyspnea on exertion, No dyspnea at rest, No hemoptysis Cardiac: No chest pain, No edema, No palpitations Medications Current Inpatient Medications Medications (Trade) Dose Ordered Sig/Allison Route Start Time Stop Time Status Last Admin Dose Admin Enoxaparin Sodium (Lovenox Inj) 40 mg DAILY SC 05/06/17 09:00 06/05/17 08:59 05/09/17 07:42 40 MG Acetaminophen (Tylenol Tab) 650 mg Q4H PRN PO 05/06/17 02:45 06/05/17 02:44 Ondansetron HCl (Zofran Inj) 4 mg Q6H PRN IV 05/06/17 02:45 06/05/17 02:44 Polyethylene (Miralax Powder Packet) 17 gm DAILY PRN PO 05/06/17 02:45 06/05/17 02:44 Insulin Aspart (novoLOG ASPART) SLIDING SCALE If C... ACHS SC 05/06/17 05:00 06/05/17 04:59 05/09/17 12:11 15 UNITS Glucose (Glucose 40% Gel) 15-30 GRAMS 15 GRAMS... UD PRN PO 05/06/17 02:45 06/05/17 02:44 Glucose (Glucose Chew Tab) 4-8 Tablets 4 Tabl... UD PRN PO 05/06/17 02:45 06/05/17 02:44 Dextrose (Dextrose 50% 50ML Syringe) 25-50ML OF 50% DW IV FOR... UD PRN IV 05/06/17 02:45 06/05/17 02:44 Glucagon (Glucagon Inj) 1 mg UD PRN SQ 05/06/17 02:45 06/05/17 02:44 Miscellaneous Information (Consult Glycemic Management Pharmacy) 1 ea UD PRN N/A 05/06/17 04:26 06/05/17 04:25 Albuterol/ Ipratropium (Duoneb) 3 ml QIDR INH 05/06/17 08:00 06/05/17 07:59 05/09/17 11:11 3 ML Alprazolam (Xanax Tab) 0.5 mg DAILY PRN PO 05/06/17 03:00 06/05/17 02:59 Amitriptyline HCl (Elavil Tab) 10 mg HS PO 05/06/17 21:00 06/05/17 20:59 05/08/17 19:54 10 MG Amlodipine Besylate (Norvasc Tab) 5 mg DAILY PO 05/06/17 09:00 06/05/17 08:59 05/09/17 07:41 5 MG Aspirin (Ecotrin Tab) 81 mg DAILY PO 05/06/17 09:00 06/05/17 08:59 05/09/17 07:41 81 MG Atorvastatin Calcium (Lipitor Tab) 40 mg DAILY PO 05/06/17 09:00 06/05/17 08:59 05/09/17 07:41 40 MG Baclofen (Lioresal Tab) 10 mg BID PO 05/06/17 09:00 06/05/17 08:59 05/09/17 07:41 10 MG Cyclobenzaprine HCl (Flexeril Tab) 10 mg BID PRN PO 05/06/17 03:00 06/05/17 02:59 Ferrous Sulfate (Feosol Tab) 325 mg DAILY PO 05/06/17 09:00 06/05/17 08:59 05/09/17 07:41 325 MG Fluticasone Propionate (Flonase Nasal [place]) 2 sprays BID LIDYA 05/06/17 09:00 06/05/17 08:59 05/09/17 07:43 2 SPRAYS Furosemide (Lasix Tab) 20 mg QAM PO 05/06/17 09:00 06/05/17 08:59 05/09/17 07:42 20 MG Gabapentin (Neurontin Cap) 100 mg TID PO 05/06/17 09:00 06/05/17 08:59 05/09/17 13:47 100 MG Acetaminophen/ Hydrocodone Bitart ([place] 5/325 Tab) 1 tab Q8H PRN PO 05/06/17 03:00 05/20/17 02:59 05/09/17 07:56 1 TAB Magnesium Oxide (Mag-Ox Tab) 400 mg DAILY PO 05/06/17 09:00 06/05/17 08:59 05/09/17 07:42 400 MG Montelukast Sodium (Singulair Tab) 10 mg HS PO 05/06/17 21:00 06/05/17 20:59 05/08/17 19:57 10 MG Pantoprazole Sodium (Protonix Tab) 40 mg QAM PO 05/06/17 09:00 06/05/17 08:59 05/09/17 07:41 40 MG Pramipexole Dihydrochloride (miraPEX TAB) 0.5 mg TID PO 05/06/17 09:00 06/05/17 08:59 05/09/17 13:47 0.5 MG Ranitidine HCl (zANTac TAB) 300 mg HS PO 05/06/17 21:00 06/05/17 20:59 05/08/17 19:56 300 MG Cyanocobalamin (Vitamin B-12 Tab) 1,000 mcg QAM PO 05/06/17 09:00 06/05/17 08:59 05/09/17 07:42 1,000 MCG Potassium Chloride (Klor-Con M10) 10 meq DAILY PO 05/06/17 09:00 06/05/17 08:59 3/13/18 07:41 10 MEQ Guaifenesin (Mucinex Contr Rel Tab) 600 mg Q12 PO 05/06/17 16:00 06/05/17 15:59 05/09/17 07:41 600 MG Zolpidem Tartrate (Ambien Tab) 5 mg HS PRN PO 05/06/17 21:15 06/05/17 21:14 05/08/17 23:43 5 MG Benzonatate (Tessalon Perles Cap) 100 mg Q8 PRN PO 05/07/17 14:45 06/06/17 14:44 05/08/17 09:49 100 MG Methylprednisolone Sodium Succinate 30 mg/Syringe 0.48 ml @ 1.5 mls/min Q8H IV 05/08/17 18:00 06/07/17 17:59 05/09/17 10:15 1.5 MLS/MIN Insulin Glargine (Lantus Solostar Pen) see protocol text DAILY SC 05/10/17 09:00 06/09/17 08:59 Objective Vital Signs Date Time Temp Pulse Resp B/P (MAP) Pulse Ox O2 Delivery O2 Flow Rate FiO2 05/09/17 12:06 36.5 106 20 144/88 (106) 100 Nasal Cannula 2.0 05/09/17 12:00 Nasal Cannula 2.0 05/09/17 11:12 99 18 98 Nasal Cannula 2.0 05/09/17 08:00 Nasal Cannula 2.0 05/09/17 07:19 36.5 92 20 166/99 (121) 95 Room Air 05/09/17 07:16 98 18 95 Room Air 05/09/17 04:29 36.8 100 20 166/99 (121) 95 Nasal Cannula 2.0 05/09/17 04:00 Nasal Cannula 2.0 05/09/17 00:00 Nasal Cannula 2.0 05/08/17 23:29 37.0 109 20 152/80 (104) 95 Nasal Cannula 2.0 05/08/17 20:36 36.9 112 20 162/79 (106) 99 Room Air 05/08/17 20:00 Nasal Cannula 2.0 05/08/17 19:34 118 20 99 Nasal Cannula 2.0 05/08/17 16:34 36.9 109 22 132/78 (96) 97 Nasal Cannula 2.0 05/08/17 16:00 Nasal Cannula 2.0 05/08/17 15:08 111 20 99 Nasal Cannula 2.0 Physical Exam General Appearance: no apparent distress, + obese Respiratory/Chest: chest non-tender, lungs clear, normal breath sounds, no respiratory distress, no accessory muscle use Cardiovascular: no edema, no murmur, + tachycardia Extremities: normal inspection, no pedal edema Laboratory Results Last 24 Hours Test 05/08/17 16:07 05/08/17 20:40 05/08/17 23:42 05/09/17 03:59 Bedside Glucose 114 mg/dl 247 mg/dl 184 mg/dl 90 mg/dl Test 05/09/17 06:42 05/09/17 12:06 Bedside Glucose 136 mg/dl 107 mg/dl Assessment and Plan This is a 61 year old female with a PMH of severe COPD on chronic steroids and long-term antibiotics, chronic respiratory failure on 3L of O2 continuously, chronic diastolic CHF, HTN, HLD, DM2, depression/mood disorder - presents with worsening shortness of breath Acute on Chronic Hypoxic Respiratory Failure secondary to Acute COPD Exacerbation 05/09 * at baseline, she uses 3L of O2 continuously * presented with worsening hypoxia, increased work of breathing, productive cough * improved symptoms with IV steroids, nebulizers, antibiotics * plan to d/c with a prednisone taper until down to 10mg of prednisone, Azithromycin 3 days/week, currently inhalers, PPI, asthma medications * appreciate pulmonology input Sinus Tachycardia * likely worsened due to IV steroids and nebulizers * monitor as outpatient DM2 * ha1c = 7.1% * continue outpatient regimen HTN * Controlled * Continue home regimen of Norvasc 5 mg daily Lasix 20 mg daily Chronic Diastolic CHF * Volume status stable * No evidence of decompensation * Continue Lasix 20 mg daily Anemia of Chronic Disease * hemoglobin stable * No report of GI bleed or dark stool, melena DVT ppx Lovenox DISPOSITION Expected to be discharged home (05/09)
[2017-05-09] MEDS ORDERED: AZIT-57 PO (14:57)
[2017-05-09] MEDS ORDERED: PRED10TA PO (14:57)
--- NOTE | 2017-05-09 15:07 | Discharge Instructions ---
Discharge Instructions Date of Service May 09, 2017. Admission Reason for Admission: Copd Exacerbation Discharge Discharge Diagnosis / Problem: COPD Discharge Goals Goal(s): Decrease discomfort, Improve function, Diagnostic testing, Therapeutic intervention Activity Recommendations Activity Limitations: resume your previous activity . Instructions / Follow-Up Instructions / Follow-Up Please follow-up with Dr. Jay on May 12 at 10:45AM * Take prednisone 30mg for one week, then 20mg for the week after that, and then 10mg * You should take azithromycin on Mondays, Wednesdays, and Monday * continue with your inhalers, anti-reflux meds and allergy meds * Follow-up with pulmonology as an outpatient Current Hospital Diet Patient's current hospital diet: AHA Diet (Heart Healthy), Diabetes Type 2 Diet Discharge Diet Recommended Diet: AHA Diet (Heart Healthy), Diabetes Type 2 Diet Pending Studies Studies pending at discharge: no Laboratory Results Hemoglobin A1c Test 05/06/17 05:37 Range/Units Estimated Average Glucose 157 mg/dl Hemoglobin A1c 7.1 H 4.5-5.6 % Medical Emergencies . Who to Call and When: Medical Emergencies: If at any time you feel your situation is an emergency, please call 911 immediately. . Non-Emergent Contact Non-Emergency issues call your: Primary Care Provider, Assistant Branch Operations Manager . Past History Medical & Surgical History: (1) COPD (chronic obstructive pulmonary disease) . "Provider Documentation" section prepared by Margaret Krishnan. .
--- NOTE | 2017-05-09 15:09 | Discharge Summary ---
Discharge Summary Date of Service May 09, 2017. Discharge Summary Admission Date: May 06, 2017 at 00:56 Discharge Date: May 09, 2017 Discharge Disposition: Home Principal Diagnosis: Acute COPD Exacerbation Acute on Chronic Hypoxic Respiratory Failure Long-term steroid use Long-term antibiotic use Chronic oxygen therapy DM2 GERD Medication Reconciliation New Medications: Azithromycin (Azithromycin) 250 Mg Tab 250 MG PO UD for 30 Days, #10 TABS take on Monday, Monday, Monday Prednisone Tab (Prednisone) 10 Mg Tab 10 MG PO UD for 30 Days, #45 TAB take 3 tablets for one week, then take 2 tablets for one week, then 1 tablet daily Continued Medications: Albuterol Hfa (Ventolin Hfa) 200 Puffs/12998 Mcg Aers 2 PUFFS INH Q4H PRN for Wheezing, INHALER Alprazolam (Xanax) 0.5 Mg Tab 0.5 MG PO DAILY PRN for Anxiety, TAB Amitriptyline HCl (Amitriptyline HCl) 10 Mg Tab 10 MG PO HS Amlodipine Besylate (Amlodipine Besylate) 5 Mg Tab 5 MG PO DAILY Arformoterol Tartrate (Brovana) 15 Mcg/2 Ml Neb 15 MCG INH BID PRN for SOB/Wheezing, INHALER Aspirin (Aspirin Ec) 81 Mg Tab 81 MG PO DAILY Atorvastatin (Lipitor) 40 Mg Tab 40 MG PO DAILY, TAB Baclofen (Lioresal) 10 Mg Tab 10 MG PO BID, TAB Cyanocobalamin (Vitamin B12) 1,000 Mcg Tab 1000 MCG PO DAILY Cyclobenzaprine Hcl (Flexeril) 10 Mg Tab 10 MG PO BID PRN for Muscle Spasm Ferrous Sulfate (Ferrous Sulfate) 325 Mg Tab 325 MG PO DAILY Fluticasone Furoate (Inhalatio (Arnuity Ellipta) 200 Mcg/Act Inh 1 PUFF INH DAILY Fluticasone Propionate (Fluticasone Propionate) 50 Mcg/Act Spr 2 SPRAYS LIDYA BID Furosemide (Lasix) 20 Mg Tab 20 MG PO QAM, TAB Gabapentin (Neurontin) 100 Mg Cap 100 MG PO TID Glimepiride (Glimepiride) 1 Mg Tab 0.5 TAB PO DAILY PRN for when on prednisone, 3 Refills As needed when blood sugars elevated on prednisone. Guaifenesin (Guaifenesin) 400 Mg Tab 400 MG PO UD PRN for UNDECIDED Home O2 Therapy (Oxygen) Gas 3 LITERS NA UD, BTL USE WHEN SLEEPING AND NEEDED Hydrocodone/Acetaminophen 5MG/325MG ([place] 5MG/325MG) Tab 1 TABLET PO Q8 PRN for Moderate Pain, TAB Ipratropium-Albuterol (Duoneb) 3 Ml Nebu 1 VIAL NEB Q4H PRN for SOB/Wheezing, INHA Ipratropium-Albuterol (Combivent Respimat) 1 Aer Aer 1 PUFF INH QID, INH Magnesium Oxide (Mag-Ox) 400 Mg Tab 400 MG PO DAILY, TAB Metformin Hcl (Glucophage) 1,000 Mg Tab 1000 MG PO BID Montelukast Sodium (Singulair) 10 Mg Tab 10 MG PO DAILY, TAB Pantoprazole Sodium (Protonix) 40 Mg Tab 40 MG PO QAM TAKE THIS MEDICATION ONCE DAILY 30 MINUTES BEFORE FIRST MEAL OF THE DAY Potassium Chloride (Potassium Chloride Er) 10 Meq Tab 10 MEQ PO DAILY, TAB Pramipexole Dihydrochloride (Mirapex) 0.5 Mg Tab 0.5 MG PO TID Ranitidine Hcl (Zantac) 300 Mg Tab 300 MG PO HS Discontinued Medications: Azithromycin (Zithromax) 250 Mg Tab 25 MG PO DAILY PRN for rescue kit 2 tabs day 1,then 1 tab daily until gone Prednisone Tab (Prednisone) 10 Mg Tab 10 MG PO UD, #84 TAB take 4 tabs po BID x 3 days, then take 6 tabs po daily x 4 days, then take 5 tabs po daily x 4 days, then take 4 tabs po daily x 4 days, then take 3 tabs po daily x 4 days, then take 2 tabs po daily x 4 days, then take 1 tab po daily indefinitely Admission Information HPI (per Admitting provider): The patient is a 61-year-old female with history of asthma and COPD who presents with worsening shortness of breath for 4 days in addition to a productive cough of yellowish sputum. She has dyspnea on exertion. She has been using nebulizer therapy at home without relief. She had no rescue pack available in the pharmacy and has not been on prednisone for several weeks despite being given a long-term taper after last discharge in February. At that time she was admitted for COPD exacerbation secondary to the flu. Flu PCR is negative today. Chest x-ray is clear. Patient denies chest pain swelling of the legs. She does report 1 day of nausea and vomiting 2 weeks ago that has resolved. She recently lost her sister and sister's 1 month ago, and has not been eating very much because of bereavement issues. Otherwise able to tolerate p.o. She complains that her mouth is dry. She states she has been feeling sluggish. She recently traveled to [place] for her family . Otherwise reports no travel or sick contacts. In the ER she presented with a respiratory rate of 30 and was given an hour-long nebulizer treatment with improvement in respiratory status. She is on 3 L nasal cannula oxygen at home continuously. Physical Exam (per Admitting): General Appearance: WD/WN, + moderate distress, + pertinent finding Head: normocephalic (Respiratory rate 26.), atraumatic Eyes: normal inspection, PERRL, sclerae normal ENT: normal ENT inspection, hearing grossly normal, pharynx normal, + pertinent finding (Mucous membranes are dry) Neck: supple, no adenopathy, trachea midline Respiratory/Chest: chest non-tender, + respiratory distress, + accessory muscle use, + wheezing (Diffuse wheezing throughout all lung pool) Cardiovascular: no edema, no JVD, no murmur, normal peripheral pulses, + tachycardia Abdomen/GI: normal bowel sounds, non tender, soft, no organomegaly Extremities/Musculoskelatal: normal inspection, no calf tenderness, normal capillary refill, no pedal edema, normal range of motion 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, no motor/sensory deficits, alert , normal mood/affect, oriented x 3 Skin: normal color, warm/dry Hospital Course This is a 61 year old female with a PMH of severe COPD on chronic steroids and long-term antibiotics, chronic respiratory failure on 3L of O2 continuously, chronic diastolic CHF, HTN, HLD, DM2, depression/mood disorder - presents with worsening shortness of breath Acute on Chronic Hypoxic Respiratory Failure secondary to Acute COPD Exacerbation 05/09 * at baseline, she uses 3L of O2 continuously * presented with worsening hypoxia, increased work of breathing, productive cough * improved symptoms with IV steroids, nebulizers, antibiotics * plan to d/c with a prednisone taper until down to 10mg of prednisone, Azithromycin 3 days/week, currently inhalers, PPI, asthma medications * appreciate pulmonology input Sinus Tachycardia * likely worsened due to IV steroids and nebulizers * monitor as outpatient DM2 * ha1c = 7.1% * continue outpatient regimen HTN * Controlled * Continue home regimen of Norvasc 5 mg daily Lasix 20 mg daily Chronic Diastolic CHF * Volume status stable * No evidence of decompensation * Continue Lasix 20 mg daily Anemia of Chronic Disease * hemoglobin stable * No report of GI bleed or dark stool, melena DVT ppx Lovenox DISPOSITION Expected to be discharged home (05/09) Total time spent on discharge = 50 minutes This includes examination of the patient, discharge planning, medication reconciliation, and communication with other providers. Discharge Instructions Please follow-up with Dr. Jay on May 12 at 10:45AM * Take prednisone 30mg for one week, then 20mg for the week after that, and then 10mg * You should take azithromycin on Mondays, Wednesdays, and Monday * continue with your inhalers, anti-reflux meds and allergy meds * Follow-up with pulmonology as an outpatient
[2017-05-10] MEDS ORDERED: INSULIN GLARGINE SOLOSTAR 100 UNITS/ML 3 ML PEN SC SCH (09:00)
== END 2017-05-09 16:36 | disposition home or self-care (01) | DRG 189 ==
LOC: EDBD 22:12 → C.EDB 22:13 → C.2T 05-06 00:56 → ENRESERV 05-06 01:05
PROVIDERS: ADMIT Hospitalist; ATTEND Family Medicine
DX: J96.00 Acute respiratory failure, unspecified whether with hypoxia or hypercapnia (principal); J44.1 Chronic obstructive pulmonary disease with (acute) exacerbation; J45.901 Unspecified asthma with (acute) exacerbation; I50.32 Chronic diastolic (congestive) heart failure; K21.9 Gastro-esophageal reflux disease without esophagitis; I11.0 Hypertensive heart disease with heart failure; E11.9 Type 2 diabetes mellitus without complications; E78.5 Hyperlipidemia, unspecified; F32.9 Major depressive disorder, single episode, unspecified; M19.90 Unspecified osteoarthritis, unspecified site; E66.01 Morbid (severe) obesity due to excess calories; G89.29 Other chronic pain; F41.9 Anxiety disorder, unspecified; G25.81 Restless legs syndrome; D63.8 Anemia in other chronic diseases classified elsewhere; Z87.891 Personal history of nicotine dependence; Z79.82 Long term (current) use of aspirin; Z99.81 Dependence on supplemental oxygen; Z85.41 Personal history of malignant neoplasm of cervix uteri; Z79.52 Long term (current) use of systemic steroids; Z83.3 Family history of diabetes mellitus; Z82.49 Family history of ischemic heart disease and other diseases of the circulatory system

== ENCOUNTER 2019-03-03 17:34 | Inpatient (IN) ==
[2019-03-03] MEDS ORDERED: SODIUM CHLORIDE 0.9% 1000ML 250 ML IV ONE ×2 (18:15→19:58)
[2019-03-03] MEDS ORDERED: ACETAMINOPHEN 325 MG TAB PO STA (18:16)
[2019-03-03 18:55] LABS: Basophils # (auto) 0.01 K/uL (0-0.2); Basophils % (auto) 0.1 %; Eosinophils # (auto) 0.16 K/uL (0-0.5); Eosinophils % (auto) 2.2 %; Hematocrit (blood only) 36.9 % (37-47); Hemoglobin 11.3 g/dL (12.0-16.0); Immature Granulocytes # (auto) 0.01 K/uL (0.00-0.02); Immature Granulocytes % (auto) 0.1 %; Lymphocytes # (auto) 0.67 K/uL (1.2-3.4); Lymphocytes % (auto) 9.3 %; Mean Corpuscular Hgb Conc 30.6 g/dL (32-36); Mean Corpuscular Volume 84.8 fL (80-100); Mean Platelet Volume 9.4 fL (7.4-10.4); Monocytes # (auto) 0.65 K/uL (0.11-0.59); Neutrophils # (auto) 5.74 K/uL (1.4-6.5); Neutrophils % (auto) 79.3 %; Platelet Count 323 K/uL (130-400); RDW Coefficient of Variation 15.5 % (11.5-14.5); RDW Standard Deviation 48.3 fL (36.4-46.3); Red Blood Count 4.35 M/uL (4.2-5.4); White Blood Count 7.24 K/uL (4.8-10.8)
--- NOTE | 2019-03-03 19:05 | XRay Report ---
XR chest 1V portable CLINICAL HISTORY: SEPSIS dyspnea COMPARISON STUDY: 05/05/2017 FINDINGS: The bones soft tissues and hemidiaphragms are normal. The cardiomediastinal silhouette is n ormal. The lungs are clear. The pulmonary vasculature is normal. IMPRESSION: Negative chest. ACT 112: Negative or not required by law. The above report was generated using voice recognition software. It may contain grammatical, syntax or spelling errors. Electronically signed by: Fuentes Lewis M.D. 03/03/2019 7:04 PM
[2019-03-03 19:08] LABS: Influenza A virus by PCR Neg for Influ A (Neg); Influenza B virus by PCR Neg for Influ B (Neg)
[2019-03-03 19:08] LABS: Partial Thromboplastin Ratio 1.1; Partial Thromboplastin Time 28.7 Seconds (21.0-31.0); Prothrombin Time 10.5 Seconds (9.0-12.0)
[2019-03-03 19:10] LABS: Alanine Aminotransferase 20 U/L (12-78); Aspartate Aminotransferase 9 U/L (15-37); BUN Creatinine Ratio 20.9 (10-20); Blood Urea Nitrogen 18 mg/dl (7-18); Calcium 8.2 mg/dl (8.5-10.1); Carbon Dioxide 28 mmol/L (21-32); Chloride 103 mmol/L (98-107); Creatinine Clr Calc Pharmacy 83.1 ml/min; Est GFR (African American) 82.7; Est GFR (Non-African American) 71.4; Glucose 136 mg/dl (70-99); Magnesium 1.9 mg/dl (1.8-2.4); Potassium 3.4 mmol/L (3.5-5.1); Sodium 137 mmol/L (136-145)
[2019-03-03 19:15] LABS: Albumin Globulin Ratio 0.8 (0.9-2); Alkaline Phosphatase 78 U/L (45-117); Bilirubin,Total 0.3 mg/dl (0.2-1); Globulin 3.8 gm/dl (2.5-4.0); Total Protein 6.8 gm/dl (6.4-8.2); Troponin I < 0.015 ng/ml (0-0.045)
[2019-03-03] MEDS ORDERED: ALBUT/IPRATROP 3MG/0.5MG NEB 3 ML VIAL NEB STA (19:23)
[2019-03-03] MEDS ORDERED: methylPREDNISolone 125 MG/2 ML VIAL IV STA (19:23)
[2019-03-03] MEDS ORDERED: PIPERACILL/TAZOBAC CONSULT ACTIVE PRN (19:23)
[2019-03-03] MEDS ORDERED: PIPERACILLIN/TAZOBACTAM 4.5 GM/120 ML BAG IV ONE (19:23)
[2019-03-03] MEDS ORDERED: SODIUM CHLORIDE 0.9% 1000ML 500 ML IV ONE (19:24)
[2019-03-03] MEDS ORDERED: DOXYCYCLINE HYCLATE 100 MG in DEXTROSE 5% 100 ML IV STA (19:51)
[2019-03-03] MEDS ORDERED: POTASSIUM CHLORIDE 20 MEQ TABCR PO STA ×2 (20:00→23:52)
[2019-03-03] MEDS ORDERED: NORMOSOL-R 250 ML IV ONE (20:00)
--- NOTE | 2019-03-03 20:14 | Emergency Department Note ---
Entered by Jesus Galvez acting as a scribe for Tyrone Cardona MD History of Present Illness General Chief complaint: Asthma Stated complaint: ASTHMA Time Seen by Provider: 03/03/19 17:58 Source: patient Limitations: no limitations History of Present Illness Onset (ago): day(s) (yesterday) Location: chest Pain Consistency: + intermittent Quality: + aching Associated symptoms: + denies other symptoms (abdominal pain, urinary symptoms, leg swelling) and + cough Treatments prior to arrival: other (Duoneb) The patient is a 63 year old female who presents to the Emergency Room with complaints of intermittent chest tightness starting yesterday. She states she has been coughing and bringing up yellow sputum. She states she has a slight fever. She states she has been sleeping all day. She states she received Duoneb from EMS and states that helped. She states she feels better right now. The patient states she feels achy and has a headache. She notes she has not been keeping up with her fluids. She states she wears 3L of oxygen at home. The patient denies having abdominal pain, urinary symptoms, and leg swelling. She states she got the flu shot. She notes everyone in her house is sick and states they have the same type of symptoms. She notes she has asthma and uses inhalers. She states her PCP is Dr. Jay. She notes she takes Lasix. Home Medications Home Medications Medication Instructions Recorded Confirmed Type albuterol sulfate [Ventolin HFA] 2 puff INHALATION Q4 PRN 03/03/19 03/03/19 History amitriptyline 20 mg PO HS 03/03/19 03/03/19 History amlodipine 5 mg PO DAILY 03/03/19 03/03/19 History arformoterol [Brovana] 15 mcg INHALATION BID PRN 03/03/19 03/03/19 History atorvastatin 40 mg PO DAILY 03/03/19 03/03/19 History baclofen 10 mg PO BID PRN 03/03/19 03/03/19 History benzonatate 100 - 200 mg PO TID PRN 03/03/19 03/03/19 History duloxetine [Cymbalta] 20 mg PO BID 03/03/19 03/03/19 History famotidine [Pepcid] 20 mg PO DAILY 03/03/19 03/03/19 History ferrous sulfate [iron] 325 mg PO DAILY 03/03/19 03/03/19 History fluticasone furoate [Arnuity 1 inh INHALATION DAILY 03/03/19 03/03/19 History Ellipta] furosemide [Lasix] 20 mg PO DAILY 03/03/19 03/03/19 History gabapentin 300 mg PO TID 03/03/19 03/03/19 History glimepiride [Amaryl] 2 mg PO QAM 03/03/19 03/03/19 History hydrocodone-acetaminophen [Wilmar] 1 tab PO Q8 PRN 03/03/19 03/03/19 History ipratropium-albuterol 3 ml INHALATION UD PRN 03/03/19 03/03/19 History ipratropium-albuterol [Combivent 1 puff INHALATION Q8 PRN 03/03/19 03/03/19 History Respimat] iron,carbonyl-vitamin C [Vitron-C] 1 tab PO BID 03/03/19 03/03/19 History loratadine [Claritin] 10 mg PO DAILY 03/03/19 03/03/19 History magnesium oxide 400 mg PO DAILY 03/03/19 03/03/19 History metformin 1,000 mg PO BID 03/03/19 03/03/19 History montelukast [Singulair] 10 mg PO PM 03/03/19 03/03/19 History pantoprazole 40 mg PO DAILY 03/03/19 03/03/19 History potassium chloride 10 meq PO DAILY 03/03/19 03/03/19 History pramipexole [Mirapex] 0.5 mg PO QID 03/03/19 03/03/19 History Allergies Allergy/AdvReac Type Severity Reaction Status Date / Time No Known Drug Allergies Allergy Unknown n/a Verified 03/03/19 18:53 pollen extracts Allergy Unknown SNEEZE,COUG Verified 03/03/19 18:53 H-WEEDS,GRA SS,POLLEN Past Med/Surg History Medical History Anemia (Acute) Asthma (Acute) Carpal tunnel syndrome (Acute) CHF (congestive heart failure) (Acute) COPD (chronic obstructive pulmonary disease) (Acute) Chronic Oxygen prn at 3L Depression (Acute) GERD (gastroesophageal reflux disease) (Acute) History of cervical cancer (Acute) laser surgery to remove cancer per pt Hyperlipidemia (Acute) Hypertension (Acute) Osteoarthritis (Acute) Restless leg syndrome (Acute) Surgical History History of colonoscopy (Acute) History of esophagogastroduodenoscopy (EGD) (Acute) Social History Feels Safe at Home: Yes Smoking Status: Former smoker Childhood Exposure to Second-Hand Smoke: Yes Review of Systems See HPI for pertinent positives & negatives. and A total of 10 systems reviewed and were otherwise negative Physical Exam Vital Signs Vital Signs - 24 hr 03/03/19 17:43 03/03/19 17:47 03/03/19 17:48 Temperature 37.6 C H Temperature Source Oral Pulse Rate 118 H 117 H 124 H Pulse Rate [Apical] Pulse Rate from SpO2 Sensor 118 H 124 H Respiratory Rate 16 30 H 18 Respiratory Effort / Characteristics Respiratory Depth Shallow Respiratory Pattern Tachypnea Blood Pressure 156/81 H 128/79 Blood Pressure Mean 103 95 Pulse Oximetry 97 96 97 Oxygen Delivery Method Nasal Cannula Oxygen Flow Rate 3 Sepsis Recent Fever Within 48 Hours Yes Sepsis Action Taken by Nursing No Action Required 03/03/19 17:50 03/03/19 18:00 03/03/19 18:10 Temperature Temperature Source Pulse Rate 117 H 114 H 113 H Pulse Rate [Apical] Pulse Rate from SpO2 Sensor 116 H 114 H 114 H Respiratory Rate 20 29 H 25 H Respiratory Effort / Characteristics Respiratory Depth Respiratory Pattern Blood Pressure Blood Pressure Mean Pulse Oximetry 96 97 99 Oxygen Delivery Method Oxygen Flow Rate Sepsis Recent Fever Within 48 Hours Sepsis Action Taken by Nursing 03/03/19 18:20 03/03/19 18:28 03/03/19 18:30 Temperature Temperature Source Pulse Rate 108 H 109 H 109 H Pulse Rate [Apical] Pulse Rate from SpO2 Sensor 108 H 109 H 109 H Respiratory Rate 26 H 25 H 25 H Respiratory Effort / Characteristics Respiratory Depth Respiratory Pattern Blood Pressure 155/84 H 144/76 H Blood Pressure Mean 108 99 Pulse Oximetry 97 97 97 Oxygen Delivery Method Oxygen Flow Rate Sepsis Recent Fever Within 48 Hours Sepsis Action Taken by Nursing 03/03/19 18:40 03/03/19 18:45 03/03/19 18:50 Temperature Temperature Source Pulse Rate 113 H 108 H 110 H Pulse Rate [Apical] Pulse Rate from SpO2 Sensor 114 H 108 H Respiratory Rate 19 23 20 Respiratory Effort / Characteristics Respiratory Depth Respiratory Pattern Blood Pressure 121/69 Blood Pressure Mean 97 Pulse Oximetry 100 97 Oxygen Delivery Method Oxygen Flow Rate Sepsis Recent Fever Within 48 Hours Sepsis Action Taken by Nursing 03/03/19 19:00 03/03/19 19:10 03/03/19 19:20 Temperature Temperature Source Pulse Rate 108 H 112 H 109 H Pulse Rate [Apical] Pulse Rate from SpO2 Sensor 106 H 112 H 110 H Respiratory Rate 20 19 23 Respiratory Effort / Characteristics Respiratory Depth Respiratory Pattern Blood Pressure 127/108 H Blood Pressure Mean 113 Pulse Oximetry 94 100 98 Oxygen Delivery Method Oxygen Flow Rate Sepsis Recent Fever Within 48 Hours Sepsis Action Taken by Nursing 03/03/19 19:30 03/03/19 19:39 03/03/19 19:40 Temperature Temperature Source Pulse Rate 106 H 112 H Pulse Rate [Apical] 110 H Pulse Rate from SpO2 Sensor 106 H 115 H Respiratory Rate 22 20 16 Respiratory Effort / Characteristics Non-Labored Spontaneous Respiratory Depth Respiratory Pattern Blood Pressure 144/79 H Blood Pressure Mean 88 Pulse Oximetry 95 94 98 Oxygen Delivery Method Nasal Cannula Oxygen Flow Rate 3 Sepsis Recent Fever Within 48 Hours Sepsis Action Taken by Nursing 03/03/19 19:50 03/03/19 20:00 03/03/19 20:02 Temperature Temperature Source Pulse Rate 108 H 104 H 105 H Pulse Rate [Apical] Pulse Rate from SpO2 Sensor 107 H 105 H 105 H Respiratory Rate 22 24 23 Respiratory Effort / Characteristics Respiratory Depth Respiratory Pattern Blood Pressure Blood Pressure Mean Pulse Oximetry 90 96 96 Oxygen Delivery Method Oxygen Flow Rate Sepsis Recent Fever Within 48 Hours Sepsis Action Taken by Nursing 03/03/19 20:10 03/03/19 20:20 03/03/19 20:30 Temperature Temperature Source Pulse Rate 107 H 105 H 102 H Pulse Rate [Apical] Pulse Rate from SpO2 Sensor 108 H 105 H 102 H Respiratory Rate 22 23 23 Respiratory Effort / Characteristics Respiratory Depth Respiratory Pattern Blood Pressure Blood Pressure Mean Pulse Oximetry 97 97 97 Oxygen Delivery Method Oxygen Flow Rate Sepsis Recent Fever Within 48 Hours Sepsis Action Taken by Nursing 03/03/19 20:31 03/03/19 20:40 03/03/19 20:50 Temperature Temperature Source Pulse Rate 103 H 105 H 103 H Pulse Rate [Apical] Pulse Rate from SpO2 Sensor 104 H 104 H 104 H Respiratory Rate 23 20 23 Respiratory Effort / Characteristics Respiratory Depth Respiratory Pattern Blood Pressure 129/78 Blood Pressure Mean 101 Pulse Oximetry 98 97 98 Oxygen Delivery Method Oxygen Flow Rate Sepsis Recent Fever Within 48 Hours Sepsis Action Taken by Nursing 03/03/19 21:00 03/03/19 21:01 Temperature Temperature Source Pulse Rate 105 H 102 H Pulse Rate [Apical] Pulse Rate from SpO2 Sensor 104 H 103 H Respiratory Rate 20 15 Respiratory Effort / Characteristics Respiratory Depth Respiratory Pattern Blood Pressure 141/58 H Blood Pressure Mean 105 Pulse Oximetry 98 96 Oxygen Delivery Method Oxygen Flow Rate Sepsis Recent Fever Within 48 Hours Sepsis Action Taken by Nursing General: Non-ill appearing middle-aged female in no acute distress. She is wearing supplemental oxygen. HEENT: Normal cephalic atraumatic. Pupils are equal round and reactive to light. Extraocular movements are intact. Oropharynx is pink with moist mucous membranes. No swelling of the mouth lips or tongue. Neck: Supple with a midline trachea. No meningeal signs or stiffness, no JVD or bruits. No Stridor. Chest: Clear to auscultation bilaterally. No wheezes. No increased work of breathing. Rhonchi on the left base. Heart: regular rate and rhythm. Abdomen: Soft nontender, nondistended without rebound guarding or rigidity. Extremities: No cyanosis clubbing or edema. No calf tenderness or asymmetry Spine/Back. Non tender to palpation. No CVA tenderness Skin: Good turgor without rashes. Neurologic exam: Cranial nerves two through 12 are intact. Motor and sensation are intact and symmetrical throughout. Course Course 180: The patient was evaluated in room A12B, and a complete history and physical examination were performed. 1933: I discussed the patient's case [facility]. He will evaluate the patient for further management Administered Medications Parenteral Electrolytes (Normosol-R) 1,000 mls @ 200 mls/hr IV .Q5H STA Stop: 03/04/19 01:44 Last Infusion: 03/03/19 23:30 Dose: 0 mls/hr Documented by: [id number] Admin: 03/03/19 22:10 Dose: 200 mls/hr Documented by: [id number] Discontinued Medications Acetaminophen (Tylenol) 650 mg PO NOW STA Stop: 03/03/19 18:17 Last Admin: 03/03/19 18:58 Dose: 650 mg Documented by: [id number] Albuterol (Duoneb) 3 ml NEB NOW STA Stop: 03/03/19 19:24 Last Admin: 03/03/19 19:38 Dose: 3 ml Documented by: [id number] Sodium Chloride (Nss 1000ml) 250 mls @ 999 mls/hr IV .Q16M ONE Stop: 03/03/19 18:30 Last Infusion: 03/03/19 19:24 Dose: 0 mls/hr Documented by: [id number] Admin: 03/03/19 18:58 Dose: 999 mls/hr Documented by: [id number] Piperacillin Sod/Tazobactam Sod (Zosyn) 4.5 gm in 120 mls @ 240 mls/hr IV NOW ONE Stop: 03/03/19 19:52 Last Infusion: 03/03/19 21:11 Dose: 0 mls/hr Documented by: [id number] Admin: 03/03/19 19:33 Dose: 240 mls/hr Documented by: [id number] Sodium Chloride (Nss 1000ml) 500 mls @ 999 mls/hr IV .Q31M ONE Stop: 03/03/19 19:54 Last Admin: 03/03/19 19:59 Dose: Not Given Documented by: [id number] Doxycycline Hyclate 100 mg/ (Dextrose) 110 mls @ 50 mls/hr IV NOW STA Stop: 03/03/19 22:02 Last Admin: 03/03/19 21:10 Dose: 50 mls/hr Documented by: [id number] Magnesium Sulfate/Dextrose (Magnesium Sulfate / D5w) 1 gm in 100 mls @ 100 mls/hr IV Q1H ELFEGO Stop: 03/03/19 22:14 Last Admin: 03/03/19 21:11 Dose: 100 mls/hr Documented by: [id number] Sodium Chloride (Nss 1000ml) 250 mls @ 999 mls/hr IV .Q16M ONE Stop: 03/03/19 20:13 Last Infusion: 03/03/19 20:19 Dose: 0 mls/hr Documented by: [id number] Admin: 03/03/19 19:59 Dose: 999 mls/hr Documented by: [id number] Parenteral Electrolytes (Normosol-R) 250 mls @ 200 mls/hr IV .Q1H15M ONE Stop: 03/03/19 21:14 Last Admin: 03/03/19 20:55 Dose: Not Given Documented by: [id number] Methylprednisolone (Solumedrol) 125 mg IV NOW STA Stop: 03/03/19 19:24 Last Admin: 03/03/19 19:30 Dose: Not Given Documented by: [id number] Potassium Chloride (Klor-Con M20) 40 meq PO NOW STA Stop: 03/03/19 20:01 Last Admin: 03/03/19 20:21 Dose: 40 meq Documented by: [id number] Medical Decision Making Differential Diagnosis Differential Diagnosis includes but is not limited to pneumonia, sepsis, influenza, bronchitis, COPD, cardiac disease, and electrolyte or metabolic abnormality. Medical Records Attestation: I reviewed the patient's medical records. Home Medications Current Medication List: was personally reviewed by me Laboratory Data Attestation: I reviewed the patient's lab results. Result diagrams: 03/03/19 18:39 03/03/19 18:39 Lab Results 03/03/19 03/03/19 03/03/19 Range/Units 18:28 18:39 18:39 WBC 7.24 (4.8-10.8) K/uL RBC 4.35 (4.2-5.4) M/uL Hgb 11.3 L (12.0-16.0) g/dL Hct 36.9 L (37-47) % MCV 84.8 (80-100) fL MCH 26.0 (25-34) pg MCHC 30.6 L (32-36) g/dL RDW Std Deviation 48.3 H (36.4-46.3) fL RDW Coeff of Angelo 15.5 H (11.5-14.5) % Plt Count 323 (130-400) K/uL MPV 9.4 (7.4-10.4) fL Immature Gran % (Auto) 0.1 % Neut % (Auto) 79.3 % Lymph % (Auto) 9.3 % Mccormick % (Auto) 9.0 % Eos % (Auto) 2.2 % Baso % (Auto) 0.1 % Immature Gran # (Auto) 0.01 (0.00-0.02) K/uL Neut # (Auto) 5.74 (1.4-6.5) K/uL Lymph # (Auto) 0.67 L (1.2-3.4) K/uL Mccormick # (Auto) 0.65 H (0.11-0.59) K/uL Eos # (Auto) 0.16 (0-0.5) K/uL Baso # (Auto) 0.01 (0-0.2) K/uL PT 10.5 (9.0-12.0) Seconds INR 1.0 (0.9-1.1) APTT 28.7 (21.0-31.0) Seconds PTT Ratio 1.1 ABG pH (7.35-7.45) ABG pCO2 (35-46) mmHg ABG pO2 (80-95) mm/Hg ABG HCO3 (19-24) mmol/L ABG O2 Saturation (90-95) % ABG Base Excess (-9-1.8) mEq/L Ziyad Test (Pos) Barometric Pressure mm/Hg Oxygen Given Sodium (136-145) mmol/L Potassium (3.5-5.1) mmol/L Chloride (98-107) mmol/L Carbon Dioxide (21-32) mmol/L Anion Gap (3-11) BUN (7-18) mg/dl Creatinine (0.6-1.2) mg/dl Est Cr Clr Drug Dosing ml/min Est GFR ( Amer) Est GFR (Non-Af Amer) BUN/Creatinine Ratio (10-20) Glucose (70-99) mg/dl Lactate (0.4-2.0) mmol/L Calcium (8.5-10.1) mg/dl Magnesium (1.8-2.4) mg/dl Total Bilirubin (0.2-1) mg/dl AST (15-37) U/L ALT (12-78) U/L Alkaline Phosphatase (45-117) U/L Troponin I (0-0.045) ng/ml Total Protein (6.4-8.2) gm/dl Albumin (3.4-5.0) gm/dl Globulin (2.5-4.0) gm/dl Albumin/Globulin Ratio (0.9-2) Procalcitonin (0-0.5) ng/ml TSH (0.300-4.500) uIu/ml Influenza Type A (PCR) Neg for Influ A (Neg) Influenza Type B (PCR) Neg for Influ B (Neg) 03/03/19 03/03/19 03/03/19 Range/Units 18:39 18:39 19:28 WBC (4.8-10.8) K/uL RBC (4.2-5.4) M/uL Hgb (12.0-16.0) g/dL Hct (37-47) % MCV (80-100) fL MCH (25-34) pg MCHC (32-36) g/dL RDW Std Deviation (36.4-46.3) fL RDW Coeff of Angelo (11.5-14.5) % Plt Count (130-400) K/uL MPV (7.4-10.4) fL Immature Gran % (Auto) % Neut % (Auto) % Lymph % (Auto) % Mccormick % (Auto) % Eos % (Auto) % Baso % (Auto) % Immature Gran # (Auto) (0.00-0.02) K/uL Neut # (Auto) (1.4-6.5) K/uL Lymph # (Auto) (1.2-3.4) K/uL Mccormick # (Auto) (0.11-0.59) K/uL Eos # (Auto) (0-0.5) K/uL Baso # (Auto) (0-0.2) K/uL PT (9.0-12.0) Seconds INR (0.9-1.1) APTT (21.0-31.0) Seconds PTT Ratio ABG pH (7.35-7.45) ABG pCO2 (35-46) mmHg ABG pO2 (80-95) mm/Hg ABG HCO3 (19-24) mmol/L ABG O2 Saturation (90-95) % ABG Base Excess (-9-1.8) mEq/L Ziyad Test (Pos) Barometric Pressure mm/Hg Oxygen Given Sodium 137 (136-145) mmol/L Potassium 3.4 L (3.5-5.1) mmol/L Chloride 103 (98-107) mmol/L Carbon Dioxide 28 (21-32) mmol/L Anion Gap 6.0 (3-11) BUN 18 (7-18) mg/dl Creatinine 0.86 (0.6-1.2) mg/dl Est Cr Clr Drug Dosing 83.1 ml/min Est GFR ( Amer) 82.7 Est GFR (Non-Af Amer) 71.4 BUN/Creatinine Ratio 20.9 H (10-20) Glucose 136 H (70-99) mg/dl Lactate 1.3 (0.4-2.0) mmol/L Calcium 8.2 L (8.5-10.1) mg/dl Magnesium 1.9 (1.8-2.4) mg/dl Total Bilirubin 0.3 (0.2-1) mg/dl AST 9 L (15-37) U/L ALT 20 (12-78) U/L Alkaline Phosphatase 78 (45-117) U/L Troponin I < 0.015 (0-0.045) ng/ml Total Protein 6.8 (6.4-8.2) gm/dl Albumin 3.0 L (3.4-5.0) gm/dl Globulin 3.8 (2.5-4.0) gm/dl Albumin/Globulin Ratio 0.8 L (0.9-2) Procalcitonin 0.97 H (0-0.5) ng/ml TSH 1.860 (0.300-4.500) uIu/ml Influenza Type A (PCR) (Neg) Influenza Type B (PCR) (Neg) 03/03/19 Range/Units 20:39 WBC (4.8-10.8) K/uL RBC (4.2-5.4) M/uL Hgb (12.0-16.0) g/dL Hct (37-47) % MCV (80-100) fL MCH (25-34) pg MCHC (32-36) g/dL RDW Std Deviation (36.4-46.3) fL RDW Coeff of Angelo (11.5-14.5) % Plt Count (130-400) K/uL MPV (7.4-10.4) fL Immature Gran % (Auto) % Neut % (Auto) % Lymph % (Auto) % Mccormick % (Auto) % Eos % (Auto) % Baso % (Auto) % Immature Gran # (Auto) (0.00-0.02) K/uL Neut # (Auto) (1.4-6.5) K/uL Lymph # (Auto) (1.2-3.4) K/uL Mccormick # (Auto) (0.11-0.59) K/uL Eos # (Auto) (0-0.5) K/uL Baso # (Auto) (0-0.2) K/uL PT (9.0-12.0) Seconds INR (0.9-1.1) APTT (21.0-31.0) Seconds PTT Ratio ABG pH 7.41 (7.35-7.45) ABG pCO2 46 (35-46) mmHg ABG pO2 82 (80-95) mm/Hg ABG HCO3 29 H (19-24) mmol/L ABG O2 Saturation 96.0 H (90-95) % ABG Base Excess 3.5 H (-9-1.8) mEq/L Ziyad Test Pos (Pos) Barometric Pressure 730.2 mm/Hg Oxygen Given 3L Sodium (136-145) mmol/L Potassium (3.5-5.1) mmol/L Chloride (98-107) mmol/L Carbon Dioxide (21-32) mmol/L Anion Gap (3-11) BUN (7-18) mg/dl Creatinine (0.6-1.2) mg/dl Est Cr Clr Drug Dosing ml/min Est GFR ( Amer) Est GFR (Non-Af Amer) BUN/Creatinine Ratio (10-20) Glucose (70-99) mg/dl Lactate (0.4-2.0) mmol/L Calcium (8.5-10.1) mg/dl Magnesium (1.8-2.4) mg/dl Total Bilirubin (0.2-1) mg/dl AST (15-37) U/L ALT (12-78) U/L Alkaline Phosphatase (45-117) U/L Troponin I (0-0.045) ng/ml Total Protein (6.4-8.2) gm/dl Albumin (3.4-5.0) gm/dl Globulin (2.5-4.0) gm/dl Albumin/Globulin Ratio (0.9-2) Procalcitonin (0-0.5) ng/ml TSH (0.300-4.500) uIu/ml Influenza Type A (PCR) (Neg) Influenza Type B (PCR) (Neg) Imaging Data Radiologist's Impression: Radiology results as stated below per my review and the radiologist's interpretation: XR chest 1V portable CLINICAL HISTORY: SEPSIS dyspnea COMPARISON STUDY: 05/05/2017 FINDINGS: The bones soft tissues and hemidiaphragms are normal. The cardiomediastinal silhouette is normal. The lungs are clear. The pulmonary vasculature is normal. IMPRESSION: Negative chest. ACT 112: Negative or not required by law. The above report was generated using voice recognition software. It may contain grammatical, syntax or spelling errors. Electronically signed by: Fuentes Lewis M.D. 03/03/2019 7:04 PM ECG Data Attestation: I personally reviewed and interpreted this ECG as follows: Indication: + SOB/dyspnea Rate (beats per minute): 111 Rhythm: + sinus tachycardia ECG ST segments: no ST depression and no ST elevation ECG Findings: no PACs and no PVCs Comparison ECG Date: from (05/05/17) Change: no significant change Blood Pressure Blood Pressure Findings: Elevated blood pressure Blood Pressure Disposition: further management by hospitalist MDM Narrative This patient comes in as described above. she has a history of COPD and is oxygen dependent with 3 L nasal cannula, comes in with shortness of breath and cough over the last couple days. She came in by ambulance and received several n ebs as well as IV Solu-Medrol is feeling quite a bit better. She does have a fever. She has had a cough. Denies any chest pain. She is tachycardic but normotensive. IV asked established a full septic work-up was obtained. She did receive some IV hydration as well her lactic acid and white count are not significantly elevated. chest x-ray was clear. EKG shows sinus tachycardia without ischemic changes. troponin is not elevated. She has no acute electrolyte or metabolic abnormalities. She was given IV cefepime for coverage of bronchitis or early pneumonia. Given her underlying lung issues, I do think she needs to be admitted/observed. PCR of influenza was negative. I have consulted the [facility] hospitalist to see her for these measures. Impression & Plan COPD exacerbation, SOB (shortness of breath), Bronchitis, Febrile illness, Diabetes Discharge Plan Visit Data *Final* Discharge Date/Time: 03/03/19 22:44 Chief Complaint: Asthma Stated Complaint: ASTHMA ED Provider: Tyrone Cardona Discharge Problem: COPD exacerbation, SOB (shortness of breath), Bronchitis, Febrile illness, Diabetes Patient Disposition: Admitted As Inpatient Discharge Instructions Interventions: ED Discharge Assessment Last Done: 03/03/19 22:44 Discharge Problem: Diabetes Qualifiers: Diabetes mellitus type: type 2 Diabetes mellitus exterminator helper termite insulin use: without exterminator helper termite use Diabetes mellitus complication status: without complication Qualified Code(s): E11.9 - Type 2 diabetes mellitus without complications The scribe's documentation has been prepared under my direction and personally reviewed by me in its entirety. I confirm that the note above accurately ref lects all work, treatment, procedures, and medical decision making performed by me.
[2019-03-03] MEDS ORDERED: NORMOSOL-R 1,000 ML IV STA (20:45)
[2019-03-03 20:51] LABS: Base Excess ABG 3.5 mEq/L (-9-1.8); HCO3 ABG 29 mmol/L (19-24); PCO2 ABG 46 mmHg (35-46); PO2 ABG 82 mm/Hg (80-95); pH ABG 7.41 (7.35-7.45)
[2019-03-03 20:52] LABS: Allen Test Pos (Pos)
--- NOTE | 2019-03-03 21:03 | History & Physical Report ---
Date of Service March 03, 2019 Assessment & Plan (1) COPD exacerbation: Complicated bronchitis Possible sepsis chronic respiratory failure secondary to Asthma/COPD overlap syndrome on home O2, oxygenation seems to be at baseline past tobacco abuse chronic diastolic heart failure as per records (EF 65 to 70%, TTE 2018), patient on the dry side hypertension, slightly elevated secondary illness hyperlipidemia on statin Rx DM2 on oral meds, suboptimal control as of recent outpatient hemoglobin A1c of 8.28 January 2019 chronic anemia, hemoglobin better than baseline likely secondary to hemoconcentration GERD stable on regimen Hypokalemia secondary to diuretic Rx Medical telemetry Cultures. Doxycycline, nebs, prednisone course Pulmonary consult RE COPD exacerbation ([place] [facility] [place]F, hold home with diuretic until patient euvolemic Replace potassium Basal insulin, ISS BG goal [id number], carb count coverage DVT prophylaxis. Lovenox subcu Full code History of Present Illness Chief Complaint: Cough, S OB Primary Care Provider: Martina Jay MD History obtained from patient, daughter, and records. Medical history significant for chronic diastolic heart failure as per records (EF 65 to 70%, TTE 2018) chronic respiratory failure secondary to Asthma/COPD overlap syndrome on home O2, past tobacco abuse, hypertension, hyperlipidemia, DM2 on oral meds, chronic anemia (baseline hemoglobin 9-10), GERD. Recent confinement last April 2017 for COPD exacerbation. Today patient not feeling well, junky cough symptoms with shortness of breath, poor appetite. Sick contacts at home. Denies recent aspiration. No actual chest pain. No unusual fluid retention. At the ER, patient received Solu-Medrol, neb treatment, Zosyn for COPD exacerbation. MEDICAL HISTORY: As above. SURGERIES: None. FAMILY HISTORY: Heart disease and lung cancer. PERSONAL AND SOCIAL HISTORY: Past tobacco use. No chronic intake of alcoholic beverages. 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 Allergies Allergy/AdvReac Type Severity Reaction Status Date / Time No Known Drug Allergies Allergy Unknown n/a Verified 03/03/19 18:53 pollen extracts Allergy Unknown SNEEZE,COUG Verified 03/03/19 18:53 H-WEEDS,GRA SS,POLLEN Home Medications Home Medications Medication Instructions Recorded Confirmed Type albuterol sulfate [Ventolin HFA] 2 puff INHALATION Q4 PRN 03/03/19 03/03/19 History amitriptyline 20 mg PO HS 03/03/19 03/03/19 History amlodipine 5 mg PO DAILY 03/03/19 03/03/19 History arformoterol [Brovana] 15 mcg INHALATION BID PRN 03/03/19 03/03/19 History atorvastatin 40 mg PO DAILY 03/03/19 03/03/19 History baclofen 10 mg PO BID PRN 03/03/19 03/03/19 History benzonatate 100 - 200 mg PO TID PRN 03/03/19 03/03/19 History duloxetine [Cymbalta] 20 mg PO BID 03/03/19 03/03/19 History famotidine [Pepcid] 20 mg PO DAILY 03/03/19 03/03/19 History ferrous sulfate [iron] 325 mg PO DAILY 03/03/19 03/03/19 History fluticasone furoate [Arnuity 1 inh INHALATION DAILY 03/03/19 03/03/19 History Ellipta] furosemide [Lasix] 20 mg PO DAILY 03/03/19 03/03/19 History gabapentin 300 mg PO TID 03/03/19 03/03/19 History glimepiride [Amaryl] 2 mg PO QAM 03/03/19 03/03/19 History hydrocodone-acetaminophen [[place]] 1 tab PO Q8 PRN 03/03/19 03/03/19 History ipratropium-albuterol 3 ml INHALATION UD PRN 03/03/19 03/03/19 History ipratropium-albuterol [Combivent 1 puff INHALATION Q8 PRN 03/03/19 03/03/19 History Respimat] iron,carbonyl-vitamin C [Vitron-C] 1 tab PO BID 03/03/19 03/03/19 History loratadine [Claritin] 10 mg PO DAILY 03/03/19 03/03/19 History magnesium oxide 400 mg PO DAILY 03/03/19 03/03/19 History metformin 1,000 mg PO BID 03/03/19 03/03/19 History montelukast [Singulair] 10 mg PO PM 03/03/19 03/03/19 History pantoprazole 40 mg PO DAILY 03/03/19 03/03/19 History potassium chloride 10 meq PO DAILY 03/03/19 03/03/19 History pramipexole [Mirapex] 0.5 mg PO QID 03/03/19 03/03/19 History Past Med/Surg History Medical History Anemia (Acute) Asthma (Acute) Carpal tunnel syndrome (Acute) CHF (congestive heart failure) (Acute) COPD (chronic obstructive pulmonary disease) (Acute) Chronic Oxygen prn at 3L Depression (Acute) GERD (gastroesophageal reflux disease) (Acute) History of cervical cancer (Acute) laser surgery to remove cancer per pt Hyperlipidemia (Acute) Hypertension (Acute) Osteoarthritis (Acute) Restless leg syndrome (Acute) Surgical History History of colonoscopy (Acute) History of esophagogastroduodenoscopy (EGD) (Acute) Social History Preferred Language: Korean Communication Ability: Effective Veterans Service Representative Required: No Beliefs That Will Affect Care: None Current Living Situation: Family Current Living Situation Comment: with daughter Other Information That Helps Us Care for You: No Feels Safe at Home: Yes Safety Concerns: Feels Safe At This Time Smoking Status: Former smoker Tobacco Type: cigarettes ; Cigarettes Per Day: 1 pack per 3 days ; Do You Dip or Chew Tobacco: No ; Smoking End Date: 2015 ; Second Hand Exposure: No ; Tobacco Cessation Education Requested by Patient: No Hx Alcohol Use: No Hx Substance Use: No Childhood Exposure to Second-Hand Smoke: Yes Review of Systems Review of Systems: As per HPI, all 10 systems reviewed, all other ROS negative Physical Exam Physical Exam: GENERAL: Comfortable, minimal respiratory distress, obese SKIN: Pallor , warm HEENT: Pale palpebral conjunctivae, no ptosis, dry buccal mucosa NECK : Supple, short neck, no tenderness CHEST : Decreased breath sounds, occasional expiratory wheezes, no tenderness HEART : Tachycardic , no obvious murmurs ABDOMEN: Some distention, nontender EXTREMITIES : Minimal LE swelling, no LE tenderness, no other conspicuous deformities noted NEUROLOGIC : Coherent, no facial asymmetry, no other gross focality Results & Data Vital Signs (Past 12 Hours) Vital Signs Temp Pulse Pulse Resp BP Pulse Ox 03/03/19 20:50 103 H 23 98 03/03/19 20:40 105 H 20 97 03/03/19 20:31 103 H 23 129/78 98 03/03/19 20:30 102 H 23 97 03/03/19 20:20 105 H 23 97 03/03/19 20:10 107 H 22 97 03/03/19 20:02 105 H 23 96 03/03/19 20:00 104 H 24 96 03/03/19 19:50 108 H 22 90 03/03/19 19:40 112 H 16 98 03/03/19 19:39 110 H 20 94 03/03/19 19:30 106 H 22 144/79 H 95 03/03/19 19:20 109 H 23 98 03/03/19 19:10 112 H 19 100 03/03/19 19:00 108 H 20 127/108 H 94 03/03/19 18:50 110 H 20 03/03/19 18:45 108 H 23 121/69 97 03/03/19 18:40 113 H 19 100 03/03/19 18:30 109 H 25 H 144/76 H 97 03/03/19 18:28 109 H 25 H 155/84 H 97 03/03/19 18:20 108 H 26 H 97 03/03/19 18:10 113 H 25 H 99 03/03/19 18:00 114 H 29 H 97 03/03/19 17:50 117 H 20 96 03/03/19 17:48 124 H 18 97 03/03/19 17:47 37.6 C H 117 H 30 H 128/79 96 03/03/19 17:43 118 H 16 156/81 H 97 Laboratory Results Laboratory Results WBC 7.24 K/uL (4.8-10.8) 03/03/19 18:39 RBC 4.35 M/uL (4.2-5.4) 03/03/19 18:39 Hgb 11.3 g/dL (12.0-16.0) L 03/03/19 18:39 Hct 36.9 % (37-47) L 03/03/19 18:39 MCV 84.8 fL (80-100) 03/03/19 18:39 MCH 26.0 pg (25-34) 03/03/19 18:39 MCHC 30.6 g/dL (32-36) L 03/03/19 18:39 RDW Std Deviation 48.3 fL (36.4-46.3) H 03/03/19 18:39 RDW Coeff of Angelo 15.5 % (11.5-14.5) H 03/03/19 18:39 Plt Count 323 K/uL (130-400) 03/03/19 18:39 MPV 9.4 fL (7.4-10.4) 03/03/19 18:39 Immature Gran % (Auto) 0.1 % 03/03/19 18:39 Neut % (Auto) 79.3 % 03/03/19 18:39 Lymph % (Auto) 9.3 % 03/03/19 18:39 Luce % (Auto) 9.0 % 03/03/19 18:39 Eos % (Auto) 2.2 % 03/03/19 18:39 Baso % (Auto) 0.1 % 03/03/19 18:39 Immature Gran # (Auto) 0.01 K/uL (0.00-0.02) 03/03/19 18:39 Neut # (Auto) 5.74 K/uL (1.4-6.5) 03/03/19 18:39 Lymph # (Auto) 0.67 K/uL (1.2-3.4) L 03/03/19 18:39 Luce # (Auto) 0.65 K/uL (0.11-0.59) H 03/03/19 18:39 Eos # (Auto) 0.16 K/uL (0-0.5) 03/03/19 18:39 Baso # (Auto) 0.01 K/uL (0-0.2) 03/03/19 18:39 PT 10.5 Seconds (9.0-12.0) 03/03/19 18:39 INR 1.0 (0.9-1.1) 03/03/19 18:39 APTT 28.7 Seconds (21.0-31.0) 03/03/19 18:39 PTT Ratio 1.1 03/03/19 18:39 ABG pH 7.41 (7.35-7.45) 03/03/19 20:39 ABG pCO2 46 mmHg (35-46) 03/03/19 20:39 ABG pO2 82 mm/Hg (80-95) 03/03/19 20: ABG HCO3 29 mmol/L (19-24) H 03/03/19 20:39 ABG O2 Saturation 96.0 % (90-95) H 03/03/19 20:39 ABG Base Excess 3.5 mEq/L (-9-1.8) H 03/03/19 20:39 Ziyad Test Pos (Pos) 03/03/19 20:39 Barometric Pressure 730.2 mm/Hg 03/03/19 20:39 Oxygen Given 3L 03/03/19 20:39 Sodium 137 mmol/L (136-145) 03/03/19 18:39 Potassium 3.4 mmol/L (3.5-5.1) L 03/03/19 18:39 Chloride 103 mmol/L (98-107) 03/03/19 18:39 Carbon Dioxide 28 mmol/L (21-32) 03/03/19 18:39 Anion Gap 6.0 (3-11) 03/03/19 18:39 BUN 18 mg/dl (7-18) 03/03/19 18:39 Creatinine 0.86 mg/dl (0.6-1.2) 03/03/19 18:39 Est Cr Clr Drug Dosing 83.1 ml/min 03/03/19 18:39 Est GFR ( Amer) 82.7 03/03/19 18:39 Est GFR (Non-Af Amer) 71.4 03/03/19 18:39 BUN/Creatinine Ratio 20.9 (10-20) H 03/03/19 18:39 Glucose 136 mg/dl (70-99) H 03/03/19 18:39 Lactate 1.3 mmol/L (0.4-2.0) 03/03/19 18:39 Calcium 8.2 mg/dl (8.5-10.1) L 03/03/19 18:39 Magnesium 1.9 mg/dl (1.8-2.4) 03/03/19 18:39 Total Bilirubin 0.3 mg/dl (0.2-1) 03/03/19 18:39 AST 9 U/L (15-37) L 03/03/19 18:39 ALT 20 U/L (12-78) 03/03/19 18:39 Alkaline Phosphatase 78 U/L (45-117) 03/03/19 18:39 Troponin I < 0.015 ng/ml (0-0.045) 03/03/19 18:39 Total Protein 6.8 gm/dl (6.4-8.2) 03/03/19 18:39 Albumin 3.0 gm/dl (3.4-5.0) L 03/03/19 18:39 Globulin 3.8 gm/dl (2.5-4.0) 03/03/19 18:39 Albumin/Globulin Ratio 0.8 (0.9-2) L 03/03/19 18:39 Influenza Type A (PCR) Neg for Influ A (Neg) 03/03/19 18:28 Influenza Type B (PCR) Neg for Influ B (Neg) 03/03/19 18:28 Diagnostic Findings Chest x-ray : Negative EKG as per my interpretation : Rate 110, sinus tachycardia, normal axis, no ischemia
[2019-03-03] MEDS: MAGNESIUM SULFATE / D5W 1 GM/100 ML BAG IV SCH (21:11)
[2019-03-03] MEDS ORDERED: GLUCOSE 40% GEL 15 GM TUBE PO PRN (23:52)
[2019-03-03] MEDS ORDERED: CARBOHYDRATES FOR HYPOGLYCEMIA PO PRN (23:52)
[2019-03-03] MEDS ORDERED: GLUCOSE 10 TABS/TUBE PO PRN (23:52)
[2019-03-03] MEDS ORDERED: GLUCAGON FOR INJ 1 MG VIAL SQ PRN (23:52)
[2019-03-03] MEDS ORDERED: INSULIN GLARGINE SOLOSTAR 100 UNITS/ML 3 ML PEN SC STA (23:52)
[2019-03-03] MEDS ORDERED: ACETAMINOPHEN 325 MG TAB PO PRN (23:52)
[2019-03-03] MEDS ORDERED: DEXTROSE 50% 50 ML SYRINGE IV PRN (23:52)
[2019-03-03] MEDS ORDERED: HYDROCODONE/ACETAMOPHEN 5/325MG TAB PO PRN (23:52)
[2019-03-03] MEDS ORDERED: PROMETHAZINE HCL 12.5 MG in SODIUM CHLORIDE 0.9% 50 ML IV PRN (23:52)
[2019-03-04 00:30] LABS: Appearance Urine Clear (Clear); Bilirubin Urine Negative (Negative); Blood Urine Negative (Negative); Color Urine Yellow; Glucose Urine UA 3+ (Negative); Ketones Urine Negative (Negative); Leukocyte Esterase Urine Negative (Negative); Nitrite Urine Negative (Negative); Protein Urine Negative (Negative); Specific Gravity Urine 1.024 (1.000-1.030); Urobilinogen Urine Negative (Negative)
[2019-03-04] MEDS: LEVALBUTEROL 1.25MG/0.5ML NEB INH SCH ×4 (00:46→19:33)
[2019-03-04] MEDS: IPRATROPIUM BROMIDE NEB SOLN 0.02% 2.5 ML VIAL INH SCH ×4 (00:46→19:33)
[2019-03-04] MEDS: MAGNESIUM SULFATE / D5W 1 GM/100 ML BAG IV SCH (00:55)
[2019-03-04] MEDS ORDERED: XOPENEX/ATROVENT 1.25mg/0.5MG NEB COMBO NEB SCH (01:00)
[2019-03-04] MEDS: INSULIN ASPART 100 UNITS/ML 3 ML PEN SC SCH ×5 (01:31→20:47)
[2019-03-04] MEDS ORDERED: NURSING DECISION MEDICATION ONE (04:13)
[2019-03-04] MEDS ORDERED: COUGH DROP (SUGAR FREE) LOZ 24 LOZ/1 BOX BUCCAL PRN (04:17)
[2019-03-04 07:40] LABS: Hematocrit (blood only) 35.2 % (37-47); Hemoglobin 10.5 g/dL (12.0-16.0); Lymphocytes # (auto) 0.89 K/uL (1.2-3.4); Lymphocytes % (auto) 25.6 %; Mean Corpuscular Hemoglobin 25.7 pg (25-34); Mean Corpuscular Hgb Conc 29.8 g/dL (32-36); Mean Corpuscular Volume 86.3 fL (80-100); Mean Platelet Volume 9.6 fL (7.4-10.4); Monocytes % (auto) 8.6 %; Neutrophils # (auto) 2.29 K/uL (1.4-6.5); Neutrophils % (auto) 65.8 %; Platelet Count 328 K/uL (130-400); RDW Coefficient of Variation 15.4 % (11.5-14.5); RDW Standard Deviation 49.2 fL (36.4-46.3); Red Blood Count 4.08 M/uL (4.2-5.4); White Blood Count 3.48 K/uL (4.8-10.8)
[2019-03-04] MEDS: DULOXETINE HCL 20 MG CAP PO SCH ×2 (08:07→20:45)
[2019-03-04] MEDS: ENOXAPARIN INJ 40 MG/0.4 ML SYR SQ SCH (08:07)
[2019-03-04] MEDS: predniSONE 20 MG TAB PO SCH (08:08)
[2019-03-04] MEDS: FAMOTIDINE 20 MG TAB PO SCH (08:08)
[2019-03-04] MEDS: FERROUS SULFATE 325 MG TAB PO SCH (08:08)
[2019-03-04] MEDS: PRAMIPEXOLE DIHYDROCHLO 0.5 MG TAB PO SCH ×4 (08:08→20:47)
[2019-03-04] MEDS: ATORVASTATIN 40 MG TAB PO SCH (08:09)
[2019-03-04] MEDS: GABAPENTIN 300 MG CAP PO SCH ×3 (08:09→20:47)
[2019-03-04] MEDS: MAGNESIUM OXIDE 400 MG TAB PO SCH (08:09)
[2019-03-04] MEDS: LORATADINE 10 MG TAB PO SCH (08:09)
[2019-03-04] MEDS: AMLODIPINE BESYLATE 5 MG TAB PO SCH (08:09)
[2019-03-04] MEDS: INSULIN GLARGINE SOLOSTAR 100 UNITS/ML 3 ML PEN SQ SCH ×2 (08:13→20:46)
[2019-03-04 08:19] LABS: Calcium 8.4 mg/dl (8.5-10.1); Creatinine Clr Calc Pharmacy 94.1 ml/min; Est GFR (African American) 102.6; Est GFR (Non-African American) 88.5; Potassium 4.4 mmol/L (3.5-5.1)
[2019-03-04] MEDS ORDERED: PANTOprazole 40 MG TAB PO SCH (09:00)
[2019-03-04] MEDS: DOXYCYCLINE HYCLATE 100 MG CAP PO SCH ×2 (11:01→20:50)
--- NOTE | 2019-03-04 14:55 | Electrocardiogram Report ---
Test Reason : Blood Pressure : / mmHG Vent. Rate : 111 BPM Atrial Rate : 111 BPM P-R Int : 146 ms QRS Dur : 088 ms QT Int : 340 ms P-R-T Axes : 086 049 078 degrees QTc Int : 462 ms Sinus tachycardia Otherwise normal ECG When compared with ECG of 05-MAY-2017 22:38, No significant change was found Confirmed by Van Hart ([id number]) on 03/04/2019 2:54:32 PM Referred By: REFERRED SELF Confirmed By:Van Hart
--- NOTE | 2019-03-04 16:28 | Pulmonary Consultation ---
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 This was performed with Dr. Mallika Esparza At that time her BMI was 41.27 compared to 43.0 at this time. Patient states that her weight is been fairly consistent for several years. Patient on last exam had no evidence of central obstructive or mixed apneas She most likely does have apnea at this time based on presentation Would schedule polysomnography exam as an outpatient due to past several admissions Discussed need for weight loss. Patient states is difficult with her situation with multiple generations living in the home Thank you for including us in the care of this patient. Please refer to Dr. Mendez's addendum and corrections We will sign off at this time. Please feel free to reconsult as needed. Supervising Physician Co-Signing Physician Notes Patient seen and examined with Navin toledo PA-C. I agree with his assessment and plan aside for any additions/exceptions noted below: This is a 63-year-old -Citizen Of [place] female with a past medical history of COPD and asthma overlap syndrome. She likely also has sleep disordered breat tiffani. She had a sleep study in the past that demonstrated nocturnal hypoxemia. I would recommend a repeat sleep study she likely has progressed obstructive sleep apnea. She is morbidly obese and I had a lengthy discussion with her regarding her weight. She would benefit substantially from weight loss. She currently has bronchitis and elevated procalcitonin. I would recommend 5 to 7 days of p.o. antibiotics and 7 days of p.o. steroids. She should follow-up in the pulmonary clinic in 1 to 2 weeks. Cannot completely rule out the possibility of vocal cord dysfunction as well. Recommend continuing PPI for laryngeal-pharyngeal reflux. Recommend discharging her home on a Trelegy inhaler. History of Present Illness Attending Physician: Rene Murillo MD History of Present Illness Attending: Dr. Mendez Is a 63-year-old -Citizen Of [place] female that follows with the pulmonary clinic and was most recently seen by Trista Villareal PA-C 01/04/2019. The patient states that over the last 3 to 4 days she has been with increasing shortness of breath and cough. Sputum has been yellow in color. She felt warm yesterday but no documented fever. The patient has chronic chronic oxygen supplementation at 3 L/min via nasal cannula. She denies any hemoptysis. She has no chest pain or tightness. She has no sore throat. She does have an [id number] grandchild who has been sick with viral type illness. She also has other family members that have had viral type illnesses in the last 1 to 2 weeks. The patient denies any sweats or rigors. She states that she is feeling much better since admission. Patient's most recent nocturnal pulse oximetry study was March 08, 2016 which revealed no saturations below 84%. Total time with saturations below 90% was 14 minutes 32 seconds. The longest continuous time with saturation less than 88% was 32 seconds. Patient underwent polysomnography 06/20/[address] Mallika Esparza. She demonstrated no central, obstructive, or mixed apneas. Marston sleepiness scale at that time was 9. Her BMI at that time was 41.27. Most recent pulmonary function testing performed 06/13/2017. This was compared to prior PFT 01/02/2014. FVC: 63% of predicted improved to 74% post bronchodilation FEV1: 45% improved to 50% post bronchodilation FEV1/FVC 72% T% DLCOunc: 51% Allergies Allergy/AdvReac Type Severity Reaction Status Date / Time No Known Drug Allergies Allergy Unknown n/a Verified 03/03/19 18:53 pollen extracts Allergy Unknown SNEEZE,COUG Verified 03/03/19 18:53 H-WEEDS,GRA SS,POLLEN Home Medications Home Medications Medication Instructions Recorded Confirmed Type albuterol sulfate [Ventolin HFA] 2 puff INHALATION Q4 PRN 03/03/19 03/03/19 History amitriptyline 20 mg PO HS 03/03/19 03/03/19 History amlodipine 5 mg PO DAILY 03/03/19 03/03/19 History arformoterol [Brovana] 15 mcg INHALATION BID PRN 03/03/19 03/03/19 History atorvastatin 40 mg PO DAILY 03/03/19 03/03/19 History baclofen 10 mg PO BID PRN 03/03/19 03/03/19 History benzonatate 100 - 200 mg PO TID PRN 03/03/19 03/03/19 History duloxetine [Cymbalta] 20 mg PO BID 03/03/19 03/03/19 History famotidine [Pepcid] 20 mg PO DAILY 03/03/19 03/03/19 History ferrous sulfate [iron] 325 mg PO DAILY 03/03/19 03/03/19 History fluticasone furoate [Arnuity 1 inh INHALATION DAILY 03/03/19 03/03/19 History Ellipta] furosemide [Lasix] 20 mg PO DAILY 03/03/19 03/03/19 History gabapentin 300 mg PO TID 03/03/19 03/03/19 History glimepiride [Amaryl] 2 mg PO QAM 03/03/19 03/03/19 History hydrocodone-acetaminophen [[place]] 1 tab PO Q8 PRN 03/03/19 03/03/19 History ipratropium-albuterol 3 ml INHALATION UD PRN 03/03/19 03/03/19 History ipratropium-albuterol [Combivent 1 puff INHALATION Q8 PRN 03/03/19 03/03/19 History Respimat] iron,carbonyl-vitamin C [Vitron-C] 1 tab PO BID 03/03/19 03/03/19 History loratadine [Claritin] 10 mg PO DAILY 03/03/19 03/03/19 History magnesium oxide 400 mg PO DAILY 03/03/19 03/03/19 History metformin 1,000 mg PO BID 03/03/19 03/03/19 History montelukast [Singulair] 10 mg PO PM 03/03/19 03/03/19 History pantoprazole 40 mg PO DAILY 03/03/19 03/03/19 History potassium chloride 10 meq PO DAILY 03/03/19 03/03/19 History pramipexole [Mirapex] 0.5 mg PO QID 03/03/19 03/03/19 History Patient History Medical History (Updated 03/04/19 @ 17:05 by Navin Toledo PA-C) Anemia (Acute) Asthma (Acute) Carpal tunnel syndrome (Acute) CHF (congestive heart failure) (Acute) COPD (chronic obstructive pulmonary disease) (Acute) Chronic Oxygen prn at 3L Depression (Acute) GERD (gastroesophageal reflux disease) (Acute) History of cervical cancer (Acute) laser surgery to remove cancer per pt Hyperlipidemia (Acute) Hypertension (Acute) Obesity hypoventilation syndrome Osteoarthritis (Acute) Restless leg syndrome (Acute) Surgical History History of colonoscopy (Acute) History of esophagogastroduodenoscopy (EGD) (Acute) Family History (Updated 03/04/19 @ 16:51 by Navin Toledo PA-C) Other Medical history non-contributory Social History Preferred Language: Macanese Communication Ability: Effective 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: No Beliefs That Will Affect Care: None Current Living Situation: Family Current Living Situation Comment: with daughter Other Information That Helps Us Care for You: No Feels Safe at Home: Yes Safety Concerns: Feels Safe At This Time Smoking Status: Former smoker Tobacco Type: cigarettes ; Cigarettes Per Day: 1 pack per 3 days ; Do You Dip or Chew Tobacco: No ; Smoking End Date: 2015 ; Second Hand Exposure: No ; Tobacco Cessation Education Requested by Patient: No Hx Alcohol Use: No Hx Substance Use: No Childhood Exposure to Second-Hand Smoke: Yes Review of Systems Review of Systems: All systems reviewed & are unremarkable except as noted in HPI & below Physical Exam Physical Exam: GENERAL : No acute distress. Sitting upright in bed talking with her family. EYES: No icterus, gaze conjugate NOSE: No evidence of epistaxis. Nasal cannula in place MOUTH: No lesions or candidiasis. Mucosa moist NECK: Supple. No stridor LUNGS: Distant breath sounds. No specific bronchospasm, rales, rhonchi. Inspirational effort appropriate. No induced cough with deep inspiration. HEART: Regular, rate controlled ABDOMEN: Soft, NT, ND, BS Present EXTREMITIES: No LE edema, pedal pulses intact and equal bilaterally. NEURO: A&OX3. No appreciation of any focal deficits. Results & Data Vital Signs (Past 12 Hours) Vital Signs Temp Pulse Pulse Resp BP Pulse Ox 03/04/19 16:08 36.7 C 89 18 121/63 93 03/04/19 16:07 105 H 03/04/19 13:15 95 H 18 98 03/04/19 11:49 36.6 C 88 18 143/67 H 98 03/04/19 08:00 83 03/04/19 07:50 36.5 C 80 18 123/76 98 03/04/19 07:14 80 18 98 03/04/19 04:57 36.5 C 92 H 20 149/76 H 94 Laboratory Results 03/04/19 07:07 03/04/19 07:07 Diagnostic Findings XR chest 1V portable CLINICAL HISTORY: SEPSIS dyspnea COMPARISON STUDY: 05/05/2017 FINDINGS: The bones soft tissues and hemidiaphragms are normal. The cardiomediastinal silhouette is normal. The lungs are clear. The pulmonary vasculature is normal. IMPRESSION: Negative chest. ACT 112: Negative or not required by law. The above report was generated using voice recognition software. It may contain grammatical, syntax or spelling errors. Electronically signed by: Fuentes Lewis M.D. 03/03/2019 7:04 PM PG Care Time/CCT Total # of Minutes Spent Total Time Spent with Patient: Total time spent is greater than 50% in coordination of care (as documented) at patient's floor/unit and/or counseling patient: 45 minutes
[2019-03-04] MEDS ORDERED: MONTELUKAST SODIUM 10 MG TABLET PO SCH (21:00)
[2019-03-04] MEDS ORDERED: LORazepam 0.5 MG TAB PO STA (22:51)
[2019-03-05] MEDS: IPRATROPIUM BROMIDE NEB SOLN 0.02% 2.5 ML VIAL INH SCH ×3 (00:10→12:53)
[2019-03-05] MEDS: LEVALBUTEROL 1.25MG/0.5ML NEB INH SCH ×3 (00:10→12:53)
[2019-03-05] MEDS: PANTOprazole 40 MG TAB PO SCH ×2 (02:41→08:20)
--- NOTE | 2019-03-05 06:26 | Hospitalist Progress Note ---
Date of Service delayed entry date of service 03/04/19 March 05, 2019 Assessment & Plan (1) COPD exacerbation: Complicated bronchitis --Patient improving --Patient is at her baseline 3 L of nasal cannula --Improving symptoms, wheezing also improving --Continue prednisone, doxycycline, nebulizer treatments scheduled Pulmonary service consulted chronic respiratory failure secondary to Asthma/COPD overlap syndrome on home O2, oxygenation seems to be at baseline past tobacco abuse --Management per #1 chronic diastolic heart failure as per records (EF 65 to 70%, TTE 2018) --Euvolemic hypertension --Continue usual medications DM2 on oral meds, suboptimal control as of recent outpatient hemoglobin A1c of 8.28 January 2019 --Continue Lantus and insulin sliding scale chronic anemia, hemoglobin better than baseline likely secondary to hemoconcentration Hypokalemia --Resolved DVT prophylaxis. Lovenox subcu Full code Subjective Follow-up for COPD/asthma exacerbation Seen resting in bed, comfortable, not in distress Back to baseline 3 L of nasal cannula States that she feels improved today compared to previous day Breathing is improving, less cough, no sputum Denies chest pain No other symptoms Review of Systems Review of Systems: All systems reviewed & are unremarkable except as noted in HPI & below Physical Exam Physical Exam: General- oriented x 3, not in distress, speaks in sentences with no effort or accessory muscle use Eyes- anicteric Neck- no JVD Lungs-mild wheeze scattered bilaterally No crackles or wheezing, good air entry bilateral Heart- normal rate, regular rhythm; no murmurs Abdomen- normal bowel sounds, nondistended, soft, nontender Extremities- no pretibial edema, no calf tenderness Neuro- alert, oriented x 3; no gross focal neurologic deficits Skin- warm & dry Results & Data Vital Signs (Past 12 Hours) Vital Signs Temp Pulse Pulse Resp BP BP Pulse Ox 03/05/19 04:20 36.9 C 93 H 20 157/82 H 98 03/05/19 00:58 102 H 03/05/19 00:52 132/69 03/04/19 23:37 36.8 C 98 H 20 171/82 H 98 03/04/19 19:51 36.8 C 93 H 18 139/79 100 03/04/19 19:34 97 H 18 98 Laboratory Results All noted and reviewed
[2019-03-05] MEDS: FERROUS SULFATE 325 MG TAB PO SCH (08:18)
[2019-03-05] MEDS: LORATADINE 10 MG TAB PO SCH (08:18)
[2019-03-05] MEDS: AMLODIPINE BESYLATE 5 MG TAB PO SCH (08:18)
[2019-03-05] MEDS: ATORVASTATIN 40 MG TAB PO SCH (08:18)
[2019-03-05] MEDS: predniSONE 20 MG TAB PO SCH (08:18)
[2019-03-05] MEDS: MAGNESIUM OXIDE 400 MG TAB PO SCH (08:18)
[2019-03-05] MEDS: GABAPENTIN 300 MG CAP PO SCH (08:19)
[2019-03-05] MEDS: FAMOTIDINE 20 MG TAB PO SCH (08:19)
[2019-03-05] MEDS: DULOXETINE HCL 20 MG CAP PO SCH (08:20)
[2019-03-05] MEDS: PRAMIPEXOLE DIHYDROCHLO 0.5 MG TAB PO SCH ×2 (08:21→12:36)
[2019-03-05] MEDS: INSULIN GLARGINE SOLOSTAR 100 UNITS/ML 3 ML PEN SQ SCH (08:21)
[2019-03-05] MEDS: ENOXAPARIN INJ 40 MG/0.4 ML SYR SQ SCH (08:23)
[2019-03-05] MEDS: INSULIN ASPART 100 UNITS/ML 3 ML PEN SC SCH ×2 (08:25→12:37)
--- NOTE | 2019-03-05 10:31 | Hospitalist Progress Note ---
Date of Service March 05, 2019 Assessment & Plan (1) COPD exacerbation: Secondary to acute bronchitis --Patient significantly improved --Patient is at her baseline 3 L of nasal cannula --Given prednisone, doxycycline, nebulizer treatments scheduled Pulmonary service consulted- Dr. Mendez Discharge plan: Prednisone 30 mg x 2 days, 20 mg x 2 days, 10 mg x 2 days Doxycycline x5 more days Change annuity and Brovana to Trelegy per pulmonary service recommendation Follow-up with primary carephysician in 1 week Follow-up with pulmonology clinic in 2 weeks, will also need sleep study Weight loss also strongly recommended by motorcoach driver Chronic respiratory failure secondary to Asthma/COPD overlap syndrome on home O2, oxygenation seems to be at baseline past tobacco abuse --Management per #1 chronic diastolic heart failure as per records (EF 65 to 70%, TTE 2018) --Euvolemic hypertension --Continue usual medications DM2 on oral meds, suboptimal control as of recent outpatient hemoglobin A1c of 8.28 January 2019 --Continue all medications, follow-up closely with primary care physician chronic anemia, hemoglobin better than baseline likely secondary to hemoconcentration Hypokalemia --Resolved Disposition Discharge to home with home health services Follow-up with primary care physician in 1 week, as outlined in discharge instructions Follow-up with motorcoach driver in 2 weeks Subjective Follow-up for COPD exacerbation Seen resting in bed, comfortable, in good spirits Back to baseline at 3 L of nasal cannula oxygen supplement States she feels much better overall Denies cough, no sputum No chest pain, fevers or chills Denies other symptoms Patient states she is ready and would like to be discharged today Review of Systems Review of Systems: All systems reviewed & are unremarkable except as noted in HPI & below Physical Exam Physical Exam: General- oriented x 3, not in distress, speaks in sentences with no effort or accessory muscle use Eyes- anicteric Neck- no JVD Lungs-faint wheeze bilaterally, good air entry bilaterally, no crackles Heart- normal rate, regular rhythm; no murmurs Abdomen- normal bowel sounds, nondistended, soft, nontender Extremities- no pretibial edema, no calf tenderness Neuro- alert, oriented x 3; no gross focal neurologic deficits Skin- warm & dry Results & Data Vital Signs (Past 12 Hours) Vital Signs Temp Pulse Pulse Resp BP Pulse Ox 03/05/19 07:45 36.8 C 89 18 133/74 99 03/05/19 07:44 90 20 97 03/05/19 07:19 89 03/05/19 04:20 36.9 C 93 H 20 157/82 H 98 03/05/19 00:58 102 H 03/05/19 00:52 132/69 03/04/19 23:37 36.8 C 98 H 20 171/82 H 98
--- NOTE | 2019-03-05 10:45 | Discharge Summary ---
Date of Service March 05, 2019 Admission HPI Per Admitting Provider History obtained from patient, daughter, and records. Medical history significant for chronic diastolic heart failure as per records (EF 65 to 70%, TTE 2018) chronic respiratory failure secondary to Asthma/COPD overlap syndrome on home O2, past tobacco abuse, hypertension, hyperlipidemia, DM2 on oral meds, chronic anemia (baseline hemoglobin 9-10), GERD. Recent confinement last April 2017 for COPD exacerbation. Today patient not feeling well, junky cough symptoms with shortness of breath, poor appetite. Sick contacts at home. Denies recent aspiration. No actual chest pain. No unusual fluid retention. At the ER, patient received Solu-Medrol, neb treatment, Zosyn for COPD exacerbation. MEDICAL HISTORY: As above. SURGERIES: None. FAMILY HISTORY: Heart disease and lung cancer. PERSONAL AND SOCIAL HISTORY: Past tobacco use. No chronic intake of alcoholic beverages. 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 Admission Exam Per Admitting Provider GENERAL: Comfortable, minimal respiratory distress, obese SKIN: Pallor , warm HEENT: Pale palpebral conjunctivae, no ptosis, dry buccal mucosa NECK : Supple, short neck, no tenderness CHEST : Decreased breath sounds, occasional expiratory wheezes, no tenderness HEART : Tachycardic , no obvious murmurs ABDOMEN: Some distention, nontender EXTREMITIES : Minimal LE swelling, no LE tenderness, no other conspicuous deformities noted NEUROLOGIC : Coherent, no facial asymmetry, no other gross focality Principal Diagnosis Acute COPD exacerbation, acute bronchitis Discharge Exam General- oriented x 3, not in distress, speaks in sentences with no effort or accessory muscle use Eyes- anicteric Neck- no JVD Lungs-faint wheeze bilaterally, good air entry bilaterally, no crackles Heart- normal rate, regular rhythm; no murmurs Abdomen- normal bowel sounds, nondistended, soft, nontender Extremities- no pretibial edema, no calf tenderness Neuro- alert, oriented x 3; no gross focal neurologic deficits Skin- warm & dry Discharge Data Allergies Allergy/AdvReac Type Severity Reaction Status Date / Time No Known Drug Allergies Allergy Unknown n/a Verified 03/03/19 18:53 pollen extracts Allergy Unknown SNEEZE,COUG Verified 03/03/19 18:53 H-WEEDS,GRA SS,POLLEN Consultations 03/03/19 20:14 ED Decision to Admit Stat 03/03/19 23:52 Consult Pulmonology Routine Procedures Performed XR chest 1V portable CLINICAL HISTORY: SEPSIS dyspnea COMPARISON STUDY: 05/05/2017 FINDINGS: The bones soft tissues and hemidiaphragms are normal. The cardiomediastinal silhouette is normal. The lungs are clear. The pulmonary vasculature is normal. IMPRESSION: Negative chest. Hospital Course (1) COPD exacerbation: Secondary to acute bronchitis -- CXR: no pneumonia --Given prednisone, doxycycline, nebulizer treatments scheduled Pulmonary service consulted- Dr. Mendez --Patient significantly improved, at her baseline 3 L of nasal cannula Discharge plan: Prednisone 30 mg x 2 days, 20 mg x 2 days, 10 mg x 2 days to complete 7 days Doxycycline x 5 more days to complete 7 days Change annuity and Brovana, to Trelegy per pulmonary service recommendation Follow-up with primary care physician in 1 week Follow-up with pulmonology clinic in 2 weeks, will also need a sleep study Weight loss also strongly recommended by director chemistry Chronic respiratory failure secondary to Asthma/COPD overlap syndrome on home O2, oxygenation seems to be at baseline past tobacco abuse --Management per #1 chronic diastolic heart failure as per records (EF 65 to 70%, TTE 2018) --Euvolemic hypertension -- stable --Continue usual medications DM2 on oral meds, suboptimal control as of recent outpatient hemoglobin A1c of 8.28 January 2019 --Continue all medications, follow-up closely with primary care physician chronic anemia, hemoglobin better than baseline likely secondary to hemoconcentration Hypokalemia --Resolved Disposition Discharge to home with home health services Follow-up with primary care physician in 1 week, as outlined in discharge instructions Follow-up with director chemistry in 2 weeks Total Time Total Time Spent Total Time Spent (In Minutes): 60 minutes Discharge Plan Discharge Items Reason For Visit: RESP FAILURE Discharge Diagnosis: Acute COPD exacerbation secondary to bronchitis Activity: As commented below Activity Comment: Resume activity gradually as tolerated, no heavy exertion Lifting: Wait until after follow-up appointment Exercise/Sports: Wait until after follow-up appointment Driving/Machine Use: No driving until evaluated and allowed by primary care physician Non-emergency contact: Primary Care Provider and Identity Management Developer Call non-emergency contact if: you have any medication questions, your symptoms worsen, your pain is worsening and you have a fever Follow-up/Referrals: Martina Jay MD [Primary Care Provider] - 03/08/19 10:45 am Diet: Carb Consistent or DM2 and Heart Healthy Addtl Attending Provider Instructions: Please review your new medication list and follow instructions carefully. Call primary care physician or return to the ER immediately if with recurrence or worsening of symptoms. Include probiotic and yogurt in your daily diet for at least 1 month. Follow-up with primary care physician as outlined above. Follow-up with the lung specialist in 2 weeks. Please call their office for an appointment. Pending Studies at Discharge: Yes Studies:: Sleep study care of pulmonology clinic Stand-Alone Forms: [facility] [employer], Smoking Cessation Medications and DC Order Prescriptions: New Trelegy Ellipta 100-62.5-25 mcg blister with device 1 puffs INH DAILY 30 Days Qty: 60 RF: 2 doxycycline hyclate 100 mg Capsule 100 mg PO Q12H 5 Days Qty: 10 RF: 0 prednisone 10 mg tablet 10 mg PO UD Qty: 9 RF: 0 Continued atorvastatin 40 mg Tablet 40 mg PO DAILY RF: 0 potassium chloride 10 mEq Capsule, Extended Release 10 meq PO DAILY RF: 0 ipratropium-albuterol 0.5 mg-3 mg(2.5 mg base)/3 mL solution for nebulization 3 ml INHALATION UD PRN (Reason: Shortness Of Breath Or Wheezing) RF: 0 hydrocodone-acetaminophen [Alden] 5-325 mg Tablet 1 tab PO Q8 PRN (Reason: Pain) RF: 0 amlodipine 5 mg Tablet 5 mg PO DAILY RF: 0 glimepiride [Amaryl] 2 mg Tablet 2 mg PO QAM RF: 0 pramipexole [Mirapex] 0.5 mg Tablet 0.5 mg PO QID RF: 0 famotidine [Pepcid] 20 mg Tablet 20 mg PO DAILY RF: 0 amitriptyline 10 mg Tablet 20 mg PO HS RF: 0 baclofen 10 mg Tablet 10 mg PO BID PRN (Reason: MUSCLE SPASMS) RF: 0 benzonatate 100 mg Capsule 100 - 200 mg PO TID PRN (Reason: Cough) RF: 0 pantoprazole 40 mg Tablet,Delayed Release (Dr/Ec) 40 mg PO DAILY RF: 0 ferrous sulfate [iron] 325 mg (65 mg iron) Tablet 325 mg PO DAILY RF: 0 metformin 1,000 mg Tablet 1,000 mg PO BID RF: 0 gabapentin 300 mg Capsule 300 mg PO TID RF: 0 montelukast [Singulair] 10 mg Tablet 10 mg PO PM RF: 0 furosemide [Lasix] 20 mg Tablet 20 mg PO DAILY RF: 0 albuterol sulfate [Ventolin HFA] 90 mcg/actuation Hfa Aerosol Inhaler 2 puff INHALATION Q4 PRN (Reason: Shortness Of Breath Or Wheezing) RF: 0 loratadine [Claritin] 10 mg Tablet 10 mg PO DAILY RF: 0 duloxetine [Cymbalta] 20 mg Capsule,Delayed Release(Dr/Ec) 20 mg PO BID RF: 0 Vitron-C 65 mg iron- 125 mg Tablet,Delayed Release (Dr/Ec) 1 tab PO BID RF: 0 Combivent Respimat 20-100 mcg/actuation Mist 1 puff INHALATION Q8 PRN (Reason: Shortness Of Breath) RF: 0 magnesium oxide 400 mg magnesium Tablet 400 mg PO DAILY RF: 0 Discontinued Brovana 15 mcg/2 mL Solution For Nebulization 15 mcg INHALATION BID PRN (Reason: Shortness Of Breath) RF: 0 Arnuity Ellipta 200 mcg/actuation Blister With Device 1 inh INHALATION DAILY RF: 0 Admission Data Admit Date/Time: 03/03/19 21:06 Attending Provider: Rene Murillo Admit Provider: Swapnil Nunez Primary Care Provider: Martina Jay Other Providers: Swapnil Nunez ; Jose M Mendez
[2019-03-05] MEDS: DOXYCYCLINE HYCLATE 100 MG CAP PO SCH (12:33)
[2019-03-05] MEDS ORDERED: AMITRIPTYLINE HCL 10 MG TAB PO SCH (21:00)
== END 2019-03-05 14:18 | disposition home or self-care (01) | DRG 191 ==
LOC: ED 17:34 → 2W 21:06

== ENCOUNTER 2019-04-09 16:13 | Inpatient (IN) ==
[2019-04-09] MEDS ORDERED: ALBUT/IPRATROP 3MG/0.5MG NEB 3 ML VIAL NEB STA ×2 (16:35→17:25)
[2019-04-09] MEDS ORDERED: CEFEPIME 2,000 MG/20 ML VIAL IV STA (16:37)
[2019-04-09] MEDS ORDERED: methylPREDNISolone 125 MG/2 ML VIAL IV STA (16:37)
[2019-04-09] MEDS ORDERED: SODIUM CHLORIDE 0.9% 1000ML 1,000 ML IV SCH (16:45)
--- NOTE | 2019-04-09 16:57 | XRay Report ---
XR chest 1V portable HISTORY: 63 years-old Female sob acute shortness of breath COMPARISON: Chest radiograph 03/03/2019, CTA chest 05/07/2017. TECHNIQUE: Portable AP view of the chest FINDINGS: Cardiac silhouette is upper limits of normal in size. Calcified plaque of the thoracic aortic arch. S evere emphysema with chronic fibrotic changes. Patchy alveolar opacities of the left lung base are ne w from comparison. Degenerative changes of the shoulders and spine. IMPRESSION: 1. Left lung base alveolar opacities suggest pneumonia. Follow-up imaging to document resolution is r ecommended. 2. Severe emphysema with chronic fibrotic changes. ACT 112: Negative or not required by law. The above report was generated using voice recognition software. It may contain grammatical, syntax o r spelling errors. Electronically signed by: Sergey Brito M.D. 04/09/2019 4:56 PM
[2019-04-09 16:58] LABS: Basophils # (auto) 0.01 K/uL (0-0.2); Basophils % (auto) 0.1 %; Hematocrit (blood only) 34.5 % (37-47); Hemoglobin 10.4 g/dL (12.0-16.0); Immature Granulocytes # (auto) 0.01 K/uL (0.00-0.02); Immature Granulocytes % (auto) 0.1 %; Lymphocytes # (auto) 0.56 K/uL (1.2-3.4); Lymphocytes % (auto) 5.4 %; Mean Corpuscular Hemoglobin 26.1 pg (25-34); Mean Corpuscular Hgb Conc 30.1 g/dL (32-36); Mean Corpuscular Volume 86.5 fL (80-100); Mean Platelet Volume 9.3 fL (7.4-10.4); Monocytes % (auto) 6.8 %; Neutrophils # (auto) 9.07 K/uL (1.4-6.5); Neutrophils % (auto) 87.6 %; Platelet Count 334 K/uL (130-400); RDW Coefficient of Variation 17.2 % (11.5-14.5); RDW Standard Deviation 54.5 fL (36.4-46.3); Red Blood Count 3.99 M/uL (4.2-5.4); White Blood Count 10.35 K/uL (4.8-10.8)
[2019-04-09 17:04] LABS: Base Excess VBG 4.2 mEq/L; Oxygen Saturation VBG 77.2 %; pH VBG 7.44 (7.36-7.41)
[2019-04-09 17:15] LABS: Alanine Aminotransferase 30 U/L (12-78); Albumin Level 3.4 gm/dl (3.4-5.0); Aspartate Aminotransferase 18 U/L (15-37); BUN Creatinine Ratio 14.6 (10-20); Blood Urea Nitrogen 13 mg/dl (7-18); Calcium 8.9 mg/dl (8.5-10.1); Carbon Dioxide 28 mmol/L (21-32); Chloride 104 mmol/L (98-107); Est GFR (African American) 80.5; Est GFR (Non-African American) 69.4; Glucose 144 mg/dl (70-99); Lipase 47 U/L (73-393); Magnesium 1.9 mg/dl (1.8-2.4); Potassium 3.7 mmol/L (3.5-5.1); Sodium 138 mmol/L (136-145)
[2019-04-09 17:20] LABS: Albumin Globulin Ratio 0.8 (0.9-2); Alkaline Phosphatase 87 U/L (45-117); Bilirubin,Total 0.2 mg/dl (0.2-1); Total Protein 7.4 gm/dl (6.4-8.2); Troponin I < 0.015 ng/ml (0-0.045)
[2019-04-09] MEDS ORDERED: ACETAMINOPHEN 500 MG TAB PO STA (17:25)
[2019-04-09 17:26] LABS: Influenza A virus by PCR Neg for Influ A (Neg); Influenza B virus by PCR Neg for Influ B (Neg)
[2019-04-09] MEDS: LORazepam 0.5 MG/1 ML VIAL IV STA ×2 (17:32→17:37)
[2019-04-09] MEDS ORDERED: LACTATED RINGER'S 750 ML IV ONE (18:09)
--- NOTE | 2019-04-09 19:07 | Emergency Department Note ---
Entered by Jesus Galvez acting as a scribe for Nitesh Dorado M.D. History of Present Illness General Chief complaint: Shortness of Breath/Dyspnea Stated complaint: SOB, TACHYCARIDA Time Seen by Provider: 04/09/19 16:28 Source: patient Limitations: no limitations History of Present Illness Onset (ago): day(s) 2 Location: chest Pain Consistency: + constant Quality: + constant Associated symptoms: + chest pain, + cough (productive), + headaches and + other (muscle aches, sore throat, ) Treatments prior to arrival: none The patient is a 63 year old female who presents to the Emergency Room with complaints of constant SOB starting two days ago. The patient states her grandson had the flu. She states she wears 3 L oxygen at home. She states she has been using breathing treatments at home. She notes she has muscle aches, a sore throat, and cough. She notes she has been having headaches and a productive cough. She notes she has been having chest pain. She states she did not take anything for her symptoms at home. She states she does not remember if she took her daily medications today, but believes she did not take them. She states she has had pneumonia before. She notes her symptoms are worse right now than the last time she was here. Home Medications Home Medications Medication Instructions Recorded Confirmed Type Vitron-C 1 tab PO BID 03/03/19 04/09/19 History albuterol sulfate [Ventolin HFA] 2 puff INHALATION Q4 PRN 03/03/19 04/09/19 History amitriptyline 20 mg PO HS 03/03/19 04/09/19 History amlodipine 5 mg PO QAM 03/03/19 04/09/19 History atorvastatin 40 mg PO QAM 03/03/19 04/09/19 History baclofen 10 mg PO BID PRN 03/03/19 04/09/19 History benzonatate 100 - 200 mg PO TID PRN 03/03/19 04/09/19 History duloxetine [Cymbalta] 20 mg PO BID 03/03/19 04/09/19 History famotidine [Pepcid] 20 mg PO QAM 03/03/19 04/09/19 History ferrous sulfate [iron] 325 mg PO QAM 03/03/19 04/09/19 History furosemide [Lasix] 20 mg PO QAM 03/03/19 04/09/19 History gabapentin 300 mg PO TID 03/03/19 04/09/19 History glimepiride [Amaryl] 2 mg PO QAM 03/03/19 04/09/19 History hydrocodone-acetaminophen [[place]] 1 tab PO Q8 PRN 03/03/19 04/09/19 History ipratropium-albuterol 3 ml INHALATION UD PRN 03/03/19 04/09/19 History loratadine [Claritin] 10 mg PO QAM 03/03/19 04/09/19 History magnesium oxide 400 mg PO QAM 03/03/19 04/09/19 History metformin 1,000 mg PO BID 03/03/19 04/09/19 History montelukast [Singulair] 10 mg PO HS 03/03/19 04/09/19 History pantoprazole 40 mg PO BID 03/03/19 04/09/19 History potassium chloride 10 meq PO QAM 03/03/19 04/09/19 History pramipexole [Mirapex] 0.5 mg PO QID 03/03/19 04/09/19 History ipratropium 20 mcg-albuterol 100 See Rx Instructions .ROUTE 03/21/19 04/09/19 Rx mcg/actuation mist for inhalation .COMPLEX #4 gram [id number] 1 puffs INH QAM 04/09/19 04/09/19 History [Trelegy Ellipta] prednisone 10 mg PO QAM 04/09/19 04/09/19 History Allergies Allergy/AdvReac Type Severity Reaction Status Date / Time No Known Drug Allergies Allergy Unknown n/a Verified 04/09/19 17:28 pollen extracts Allergy Unknown SNEEZE,COUG Verified 04/09/19 17:28 H-WEEDS,GRA SS,POLLEN Past Med/Surg History Medical History Anemia (Acute) Asthma (Acute) Bronchitis (Inactive) Carpal tunnel syndrome (Acute) CHF (congestive heart failure) (Acute) COPD (chronic obstructive pulmonary disease) (Acute) Chronic Oxygen prn at 3L COPD exacerbation (Inactive) Depression (Acute) GERD (gastroesophageal reflux disease) (Acute) History of cervical cancer (Acute) laser surgery to remove cancer per pt Hyperlipidemia (Acute) Hypertension (Acute) Obesity hypoventilation syndrome suspected Osteoarthritis (Acute) Restless leg syndrome (Acute) Surgical History History of colonoscopy (Acute) History of esophagogastroduodenoscopy (EGD) (Acute) Family History Other Medical history non-contributory Social History Preferred Language: Greenlandic Communication Ability: Effective 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 and A total of 10 systems reviewed and were otherwise negative Physical Exam Vital Signs Vital Signs - 24 hr 04/09/19 16:23 04/09/19 16:26 04/09/19 16:28 Temperature 39.2 C H Temperature Source Oral Pulse Rate 147 H 141 H 141 H Pulse Rate [Right Finger] Pulse Rate from SpO2 Sensor 139 H 138 H Respiratory Rate 44 H 23 30 H Respiratory Effort / Characteristics Respiratory Depth Respiratory Pattern Blood Pressure 117/80 117/80 Blood Pressure Mean 92 92 Pulse Oximetry 100 100 100 Oxygen Delivery Method Non-rebreather Oxygen Flow Rate Fraction of Inspired Oxygen Sepsis Recent Fever Within 48 Hours Yes Sepsis New/Unexplained Change in Mental Status No Sepsis Action Taken by Nursing Physician Notified 04/09/19 16:30 04/09/19 16:31 04/09/19 16:40 Temperature Temperature Source Pulse Rate 140 H 140 H 136 H Pulse Rate [Right Finger] Pulse Rate from SpO2 Sensor 141 H 139 H 137 H Respiratory Rate 29 H 29 H 26 H Respiratory Effort / Characteristics Respiratory Depth Respiratory Pattern Blood Pressure 139/73 Blood Pressure Mean 98 Pulse Oximetry 99 100 100 Oxygen Delivery Method Nasal Cannula Oxygen Flow Rate 4 Fraction of Inspired Oxygen Sepsis Recent Fever Within 48 Hours Sepsis New/Unexplained Change in Mental Status Sepsis Action Taken by Nursing 04/09/19 16:47 04/09/19 16:50 04/09/19 16:51 Temperature Temperature Source Pulse Rate 138 H Pulse Rate [Right Finger] 133 H Pulse Rate from SpO2 Sensor 138 H Respiratory Rate 19 28 H Respiratory Effort / Characteristics Spontaneous Accessory Muscle Use Labored Short of Breath Tripoding Spontaneous Labored Short of Breath Respiratory Depth Shallow Respiratory Pattern Rapid/Shallow Tachypnea Blood Pressure Blood Pressure Mean Pulse Oximetry 100 99 100 Oxygen Delivery Method Nasal Cannula Nasal Cannula Oxygen Flow Rate 3 3 Fraction of Inspired Oxygen Sepsis Recent Fever Within 48 Hours Sepsis New/Unexplained Change in Mental Status Sepsis Action Taken by Nursing 04/09/19 17:00 04/09/19 17:01 04/09/19 17:10 Temperature Temperature Source Pulse Rate 134 H 134 H 133 H Pulse Rate [Right Finger] Pulse Rate from SpO2 Sensor 136 H 135 H 135 H Respiratory Rate 30 H 32 H 24 Respiratory Effort / Characteristics Respiratory Depth Respiratory Pattern Blood Pressure 143/62 H Blood Pressure Mean 78 Pulse Oximetry 98 100 100 Oxygen Delivery Method Oxygen Flow Rate Fraction of Inspired Oxygen Sepsis Recent Fever Within 48 Hours Sepsis New/Unexplained Change in Mental Status Sepsis Action Taken by Nursing 04/09/19 17:15 04/09/19 17:20 04/09/19 17:30 Temperature Temperature Source Pulse Rate 132 H 130 H 129 H Pulse Rate [Right Finger] Pulse Rate from SpO2 Sensor 134 H 132 H 129 H Respiratory Rate 24 22 23 Respiratory Effort / Characteristics Respiratory Depth Respiratory Pattern Blood Pressure 157/69 H 112/72 Blood Pressure Mean 93 92 Pulse Oximetry 96 98 100 Oxygen Delivery Method Oxygen Flow Rate Fraction of Inspired Oxygen Sepsis Recent Fever Within 48 Hours Sepsis New/Unexplained Change in Mental Status Sepsis Action Taken by Nursing 04/09/19 17:36 04/09/19 17:40 04/09/19 17:45 Temperature Temperature Source Pulse Rate 131 H 132 H 131 H Pulse Rate [Right Finger] 131 H Pulse Rate from SpO2 Sensor 132 H 133 H Respiratory Rate 30 H 24 27 H Respiratory Effort / Characteristics Spontaneous Labored Respiratory Depth Respiratory Pattern Tachypnea Blood Pressure 128/72 Blood Pressure Mean 97 Pulse Oximetry 100 100 100 Oxygen Delivery Method BiPAP Oxygen Flow Rate Fraction of Inspired Oxygen 40 Sepsis Recent Fever Within 48 Hours Sepsis New/Unexplained Change in Mental Status Sepsis Action Taken by Nursing 04/09/19 17:50 04/09/19 18:00 04/09/19 18:10 Temperature Temperature Source Pulse Rate 135 H 135 H 134 H Pulse Rate [Right Finger] Pulse Rate from SpO2 Sensor 134 H 135 H 134 H Respiratory Rate 37 H 24 24 Respiratory Effort / Characteristics Respiratory Depth Respiratory Pattern Blood Pressure 134/78 Blood Pressure Mean 101 Pulse Oximetry 100 100 100 Oxygen Delivery Method Oxygen Flow Rate Fraction of Inspired Oxygen Sepsis Recent Fever Within 48 Hours Sepsis New/Unexplained Change in Mental Status Sepsis Action Taken by Nursing 04/09/19 18:15 04/09/19 18:20 04/09/19 18:30 Temperature Temperature Source Pulse Rate 134 H 135 H 130 H Pulse Rate [Right Finger] Pulse Rate from SpO2 Sensor 135 H 135 H 130 H Respiratory Rate 25 H 31 H 24 Respiratory Effort / Characteristics Respiratory Depth Respiratory Pattern Blood Pressure 142/79 H 134/68 Blood Pressure Mean 103 100 Pulse Oximetry 100 100 100 Oxygen Delivery Method Oxygen Flow Rate Fraction of Inspired Oxygen Sepsis Recent Fever Within 48 Hours Sepsis New/Unexplained Change in Mental Status Sepsis Action Taken by Nursing 04/09/19 18:42 Temperature Temperature Source Pulse Rate Pulse Rate [Right Finger] Pulse Rate from SpO2 Sensor Respiratory Rate Respiratory Effort / Characteristics Respiratory Depth Respiratory Pattern Blood Pressure Blood Pressure Mean Pulse Oximetry Oxygen Delivery Method Ambu-Bag Oxygen Flow Rate Fraction of Inspired Oxygen Sepsis Recent Fever Within 48 Hours Sepsis New/Unexplained Change in Mental Status Sepsis Action Taken by Nursing GENERAL: Awake, alert, fatigued with increased work of breathing HENT: Normocephalic, atraumatic. EYES: Normal conjunctiva. Sclera non-icteric. NECK: Supple. No nuchal rigidity. RESPIRATORY: Tachypneic. Increased work of breathing. Diffuse wheezes, CARDIAC: Normal rate. Normal rhythm. Extremities warm and well perfused. GI: Soft, non-distended. No tenderness to palpation. RECTAL: Deferred. MUSCULOSKELETAL: Atraumatic. Chest examination reveals no tenderness LOWER EXTREMITIES: Calves are equal size bilaterally and non-tender. Trace pedal edema NEURO: No sensory or motor deficits noted. No facial droop. SKIN: Warm and dry. No rash or jaundice noted. Course Course 1631: The patient was evaluated in room B3B, and a complete history and physical examination were performed. 1745: I discussed the patient's case with Dr. Jimmie Jennings Hospitalist. He will evaluate the patient for further management. Administered Medications Discontinued Medications Acetaminophen (Tylenol) 1,000 mg PO NOW STA Stop: 04/09/19 17:26 Last Admin: 04/09/19 17:31 Dose: 1,000 mg Documented by: [id number] Albuterol (Duoneb) 3 ml NEB NOW STA Stop: 04/09/19 16:36 Last Admin: 04/09/19 16:51 Dose: 3 ml Documented by: [id number] Albuterol (Duoneb) 3 ml NEB NOW STA Stop: 04/09/19 17:26 Last Admin: 04/09/19 17:36 Dose: 3 ml Documented by: [id number] Sodium Chloride (Nss 1000ml) 1,000 mls @ 999 mls/hr IV .Q1H1M ELFEGO Stop: 04/09/19 17:45 Last Infusion: 04/09/19 18:42 Dose: 0 mls/hr Documented by: [id number] Admin: 04/09/19 16:47 Dose: 999 mls/hr Documented by: [id number] Cefepime HCl (Maxipime) 2,000 mg in 20 mls @ 5 mls/min IV NOW STA; Protocol Stop: 04/09/19 16:40 Last Admin: 04/09/19 16:46 Dose: 5 mls/min Documented by: [id number] Lorazepam (Ativan) 0.5 mg in 1 mls @ 1 mls/min IV NOW STA Stop: 04/09/19 17:25 Last Admin: 04/09/19 17:37 Dose: 1 mls/min Documented by: [id number] Lactated Ringer's (Lr) 750 mls @ 999 mls/hr IV .Q46M ONE Stop: 04/09/19 18:54 Last Admin: 04/09/19 18:23 Dose: 999 mls/hr Documented by: [id number] Methylprednisolone (Solumedrol) 125 mg IV NOW STA Stop: 04/09/19 16:38 Last Admin: 04/09/19 16:46 Dose: 125 mg Documented by: [id number] Critical Care Time Critical Care Time: Yes Total Critical Care Time: 44 I have personally spent 44 minutes of critical care time in the direct management of this patient. This includes bedside care, interpretation of diagnostic studies, and testing, discussion with consultants, patient, and family members, and other required patient management activities. This 52 minutes is in excess of all separately billable procedures. Medical Decision Making Differential Diagnosis Differential diagnosis: Etiologies such as viral syndrome, otitis, pharyngitis, pneumonia, influenza, meningitis, urinary tract infection, sepsis, bacteremia, as well as others were entertained. Medical Records Attestation: I reviewed the patient's medical records. Home Medications Current Medication List: was personally reviewed by me Laboratory Data Attestation: I reviewed the patient's lab results. Result diagrams: 04/09/19 16:46 04/09/19 16:46 Lab Results 04/09/19 04/09/19 04/09/19 Range/Units 16:26 16:46 16:46 WBC (4.8-10.8) K/uL RBC (4.2-5.4) M/uL Hgb (12.0-16.0) g/dL Hct (37-47) % MCV (80-100) fL MCH (25-34) pg MCHC (32-36) g/dL RDW Std Deviation (36.4-46.3) fL RDW Coeff of Angelo (11.5-14.5) % Plt Count (130-400) K/uL MPV (7.4-10.4) fL Immature Gran % (Auto) % Neut % (Auto) % Lymph % (Auto) % [place] % (Auto) % Eos % (Auto) % Baso % (Auto) % Immature Gran # (Auto) (0.00-0.02) K/uL Neut # (Auto) (1.4-6.5) K/uL Lymph # (Auto) (1.2-3.4) K/uL [place] # (Auto) (0.11-0.59) K/uL Eos # (Auto) (0-0.5) K/uL Baso # (Auto) (0-0.2) K/uL VBG pH (7.36-7.41) VBG pCO2 (38-50) mmHg VBG pO2 mmHg VBG HCO3 mmol/L VBG O2 Saturation % VBG Base Excess mEq/L Barometric Pressure mm/Hg Sodium 138 (136-145) mmol/L Potassium 3.7 (3.5-5.1) mmol/L Chloride 104 (98-107) mmol/L Carbon Dioxide 28 (21-32) mmol/L Anion Gap 7.0 (3-11) BUN 13 (7-18) mg/dl Creatinine 0.88 (0.6-1.2) mg/dl Est Cr Clr Drug Dosing 76.0 ml/min Est GFR ( Amer) 80.5 Est GFR (Non-Af Amer) 69.4 BUN/Creatinine Ratio 14.6 (10-20) Glucose 144 H (70-99) mg/dl Lactate 2.1 H* (0.4-2.0) mmol/L Calcium 8.9 (8.5-10.1) mg/dl Magnesium 1.9 (1.8-2.4) mg/dl Total Bilirubin 0.2 (0.2-1) mg/dl AST 18 (15-37) U/L ALT 30 (12-78) U/L Alkaline Phosphatase 87 (45-117) U/L Troponin I < 0.015 (0-0.045) ng/ml Total Protein 7.4 (6.4-8.2) gm/dl Albumin 3.4 (3.4-5.0) gm/dl Globulin 4.0 (2.5-4.0) gm/dl Albumin/Globulin Ratio 0.8 L (0.9-2) Lipase 47 L (73-393) U/L Procalcitonin (0-0.5) ng/ml Influenza Type A (PCR) Neg for Influ A (Neg) Influenza Type B (PCR) Neg for Influ B (Neg) 04/09/19 04/09/19 04/09/19 Range/Units 16:46 16:46 16:46 WBC 10.35 (4.8-10.8) K/uL RBC 3.99 L (4.2-5.4) M/uL Hgb 10.4 L (12.0-16.0) g/dL Hct 34.5 L (37-47) % MCV 86.5 (80-100) fL MCH 26.1 (25-34) pg MCHC 30.1 L (32-36) g/dL RDW Std Deviation 54.5 H (36.4-46.3) fL RDW Coeff of Angelo 17.2 H (11.5-14.5) % Plt Count 334 (130-400) K/uL MPV 9.3 (7.4-10.4) fL Immature Gran % (Auto) 0.1 % Neut % (Auto) 87.6 % Lymph % (Auto) 5.4 % [place] % (Auto) 6.8 % Eos % (Auto) 0.0 % Baso % (Auto) 0.1 % Immature Gran # (Auto) 0.01 (0.00-0.02) K/uL Neut # (Auto) 9.07 H (1.4-6.5) K/uL Lymph # (Auto) 0.56 L (1.2-3.4) K/uL [place] # (Auto) 0.70 H (0.11-0.59) K/uL Eos # (Auto) 0.00 (0-0.5) K/uL Baso # (Auto) 0.01 (0-0.2) K/uL VBG pH 7.44 H (7.36-7.41) VBG pCO2 44 (38-50) mmHg VBG pO2 43 mmHg VBG HCO3 29 mmol/L VBG O2 Saturation 77.2 % VBG Base Excess 4.2 mEq/L Barometric Pressure 729.3 mm/Hg Sodium (136-145) mmol/L Potassium (3.5-5.1) mmol/L Chloride (98-107) mmol/L Carbon Dioxide (21-32) mmol/L Anion Gap (3-11) BUN (7-18) mg/dl Creatinine (0.6-1.2) mg/dl Est Cr Clr Drug Dosing ml/min Est GFR ( Amer) Est GFR (Non-Af Amer) BUN/Creatinine Ratio (10-20) Glucose (70-99) mg/dl Lactate (0.4-2.0) mmol/L Calcium (8.5-10.1) mg/dl Magnesium (1.8-2.4) mg/dl Total Bilirubin (0.2-1) mg/dl AST (15-37) U/L ALT (12-78) U/L Alkaline Phosphatase (45-117) U/L Troponin I (0-0.045) ng/ml Total Protein (6.4-8.2) gm/dl Albumin (3.4-5.0) gm/dl Globulin (2.5-4.0) gm/dl Albumin/Globulin Ratio (0.9-2) Lipase (73-393) U/L Procalcitonin 0.05 (0-0.5) ng/ml Influenza Type A (PCR) (Neg) Influenza Type B (PCR) (Neg) Imaging Data Radiologist's Impression: Radiology results as stated below per my review and the radiologist's interpretation: XR chest 1V portable HISTORY: 63 years-old Female sob acute shortness of breath COMPARISON: Chest radiograph 03/03/2019, CTA chest 05/07/2017. TECHNIQUE: Portable AP view of the chest FINDINGS: Cardiac silhouette is upper limits of normal in size. Calcified plaque of the thoracic aortic arch. Severe emphysema with chronic fibrotic changes. Patchy alveolar opacities of the left lung base are new from comparison. Degenerative changes of the shoulders and spine. IMPRESSION: 1. Left lung base alveolar opacities suggest pneumonia. Follow-up imaging to document resolution is recommended. 2. Severe emphysema with chronic fibrotic changes. ACT 112: Negative or not required by law. The above report was generated using voice recognition software. It may contain grammatical, syntax or spelling errors. Electronically signed by: Sergey Brito M.D. 04/09/2019 4:56 PM ECG Data Attestation: I personally reviewed and interpreted this ECG as follows: Indication: + SOB/dyspnea Rate (beats per minute): 140 Rhythm: + sinus tachycardia ECG Intervals/blocks: + Normal QT-c ECG Lawrence: + Normal ECG ST segments: no ST depression and no ST elevation ECG Findings: no PVCs Blood Pressure Blood Pressure Findings: Elevated blood pressure Blood Pressure Disposition: further management by hospitalist MAHAMED Narrative Patient is a 63-year-old female with a past medical history including COPD, diastolic heart failure, hypertension, and diabetes presenting today with a complaint of shortness of breath and tachycardia. Patient was admitted just over 30 days ago for COPD exacerbation. About 2 weeks ago saw pulmonary. States compliance with home inhalers. Febrile tachycardic and tachypneic upon arrival. Concern for sepsis. Code sepsis called. Cultures lactate empiric cefepime was ordered. Basic labs ordered. EKG and troponin were sent although substance acute ACS. Appears to be in a sinus tach. Does not appear grossly fluid overloaded on initial exam. Given a liter of IV fluid initially. DuoNeb ordered additional Solu-Medrol given. Significantly wheezy. Appears fatigued. Contact with persons with flu likely contributing. Chest x-ray with a left lower lobe pneumonia. Given cefepime initially. Patient with still significant work of breathing. Discussed with her and we will proceed with some BiPAP and little bit of Ativan to help her tolerate the mask. Given the Tylenol here in addition to additional DuoNeb. Troponins not elevated. Significantly tachycardic. With high work of breathing was placed on BiPAP; patient requested a small amount of ativan for anxiety with the mask. Not significantly acidotic and only mild lactate elevation. Procalcitonin not significantly elevated. With the patient's poor respiratory status likely little reserve to tolerate her pneumonia. Patient improved on re-eval after bipap comfortable. Hospitalist contacted. Impression & Plan Pneumonia, COPD exacerbation, Respiratory failure Discharge Plan Visit Data Chief Complaint: Shortness of Breath/Dyspnea Stated Complaint: SOB, TACHYCARIDA ED Provider: Nitesh Dorado Discharge Problem: Pneumonia, COPD exacerbation, Respiratory failure Patient Disposition: Admitted As Inpatient Discharge Instructions Interventions: ED Discharge Assessment Last Done: 04/09/19 18:42 Prescriptions Prescriptions: No Action ipratropium-albuterol [Combivent Respimat] 20-100 mcg/actuation mist See Rx Instructions .ROUTE .COMPLEX Qty: 4 RF: 0 atorvastatin 40 mg Tablet 40 mg PO QAM RF: 0 potassium chloride 10 mEq Capsule, Extended Release 10 meq PO QAM RF: 0 ipratropium-albuterol 0.5 mg-3 mg(2.5 mg base)/3 mL solution for nebulization 3 ml INHALATION UD PRN (Reason: Shortness Of Breath Or Wheezing) RF: 0 hydrocodone-acetaminophen [[place]] 5-325 mg Tablet 1 tab PO Q8 PRN (Reason: Pain) RF: 0 amlodipine 5 mg Tablet 5 mg PO QAM RF: 0 glimepiride [Amaryl] 2 mg Tablet 2 mg PO QAM RF: 0 pramipexole [Mirapex] 0.5 mg Tablet 0.5 mg PO QID RF: 0 famotidine [Pepcid] 20 mg Tablet 20 mg PO QAM RF: 0 amitriptyline 10 mg Tablet 20 mg PO HS RF: 0 baclofen 10 mg Tablet 10 mg PO BID PRN (Reason: MUSCLE SPASMS) RF: 0 benzonatate 100 mg Capsule 100 - 200 mg PO TID PRN (Reason: Cough) RF: 0 pantoprazole 40 mg Tablet,Delayed Release (Dr/Ec) 40 mg PO BID RF: 0 ferrous sulfate [iron] 325 mg (65 mg iron) Tablet 325 mg PO QAM RF: 0 metformin 1,000 mg Tablet 1,000 mg PO BID RF: 0 gabapentin 300 mg Capsule 300 mg PO TID RF: 0 montelukast [Singulair] 10 mg Tablet 10 mg PO HS RF: 0 furosemide [Lasix] 20 mg Tablet 20 mg PO QAM RF: 0 albuterol sulfate [Ventolin HFA] 90 mcg/actuation Hfa Aerosol Inhaler 2 puff INHALATION Q4 PRN (Reason: Shortness Of Breath Or Wheezing) RF: 0 loratadine [Claritin] 10 mg Tablet 10 mg PO QAM RF: 0 duloxetine [Cymbalta] 20 mg Capsule,Delayed Release(Dr/Ec) 20 mg PO BID RF: 0 Vitron-C 65 mg iron- 125 mg Tablet,Delayed Release (Dr/Ec) 1 tab PO BID RF: 0 magnesium oxide 400 mg magnesium Tablet 400 mg PO QAM RF: 0 prednisone 10 mg tablet 10 mg PO QAM RF: 0 Trelegy Ellipta 100-62.5-25 mcg blister with device 1 puffs INH QAM RF: 0 Referrals Referrals: Martina Jay MD [Primary Care Provider] - Discharge Problem: Pneumonia Qualifiers: Pneumonia type: due to unspecified organism Laterality: left Lung location: lower lobe of lung Qualified Code(s): J18.9 - Pneumonia, unspecified organism Respiratory failure Qualifiers: Chronicity: unspecified Respiratory failure complication: unspecified whether with hypoxia or hypercapnia Qualified Code(s): J96.90 - Respiratory failure, unspecified, unspecified whether with hypoxia or hypercapnia The scribe's documentation has been prepared under my direction and personally reviewed by me in its entirety. I confirm that the note above accurately reflects all work, treatment, procedures, and medical decision making performed by me.
--- NOTE | 2019-04-09 19:08 | History & Physical Report ---
Date of Service April 09, 2019 Assessment & Plan (1) Respiratory failure: Patient signs and symptoms are consistent with COPD exacerbation secondary to an infectious etiology. The chest x-ray seems to suggest left lower lobe infiltrate. She is febrile and has increased and productive cough. Given how suddenly her symptoms started, influenza was also suspected and the PCR is pending at this time. We will continue vancomycin and cefepime and follow blood cultures. We will also continue steroids as she had diffuse wheezing bilaterally. Continue Trelegy Ellipta and albuterol nebulizer. Currently she is on BiPAP which was placed for respiratory distress and her venous blood gas looks okay. She does not have carbon dioxide retention. We will consult critical care. Discussed with Shahbaz Cooper PA-C from critical care who will evaluate the patient. She would like to have CPR in case her heart stopped. Initially she was hesitant about intubation but then agreed if needed. We will keep n.p.o. for now except medications. Present on Admission?: Yes (2) Diabetes: Hold oral hypoglycemic agents. Provide sliding scale. Present on Admission?: Yes History of Present Illness Chief Complaint: Shortness of breath Primary Care Provider: Martina Jay MD This is a 63-year-old female who lives at home with her daughter and came to the ER because of shortness of breath. At the time of my evaluation the patient was on BiPAP and had been given lorazepam therefore history taking was somewhat limited. The patient has history of asthma and COPD (FEV1 66% of the predicted 2013). She has a [id number] smoking history and quit smoking in 2010. She is on 3 L oxygen 19/09. She stated that she developed some shortness of breath yesterday that progressed today. She also developed fever today as well as productive cough. She had some chest tightness in the center of her chest. The day before she was feeling fine and was at her baseline. She denied any nausea or vomiting. She denied any abdominal pain, diarrhea or constipation. In the ER she was in respiratory distress due to which she was placed on BiPAP. She was also very anxious for which she was given Ativan. Allergies Allergy/AdvReac Type Severity Reaction Status Date / Time No Known Drug Allergies Allergy Unknown n/a Verified 04/09/19 17:28 pollen extracts Allergy Unknown SNEEZE,COUG Verified 04/09/19 17:28 H-WEEDS,GRA SS,POLLEN Home Medications Home Medications Medication Instructions Recorded Confirmed Type Vitron-C 1 tab PO BID 03/03/19 04/09/19 History albuterol sulfate [Ventolin HFA] 2 puff INHALATION Q4 PRN 03/03/19 04/09/19 History amitriptyline 20 mg PO HS 03/03/19 04/09/19 History amlodipine 5 mg PO QAM 03/03/19 04/09/19 History atorvastatin 40 mg PO QAM 03/03/19 04/09/19 History baclofen 10 mg PO BID PRN 03/03/19 04/09/19 History benzonatate 100 - 200 mg PO TID PRN 03/03/19 04/09/19 History duloxetine [Cymbalta] 20 mg PO BID 03/03/19 04/09/19 History famotidine [Pepcid] 20 mg PO QAM 03/03/19 04/09/19 History ferrous sulfate [iron] 325 mg PO QAM 03/03/19 04/09/19 History furosemide [Lasix] 20 mg PO QAM 03/03/19 04/09/19 History gabapentin 300 mg PO TID 03/03/19 04/09/19 History glimepiride [Amaryl] 2 mg PO QAM 03/03/19 04/09/19 History hydrocodone-acetaminophen [Clawson] 1 tab PO Q8 PRN 03/03/19 04/09/19 History ipratropium-albuterol 3 ml INHALATION UD PRN 03/03/19 04/09/19 History loratadine [Claritin] 10 mg PO QAM 03/03/19 04/09/19 History magnesium oxide 400 mg PO QAM 03/03/19 04/09/19 History metformin 1,000 mg PO BID 03/03/19 04/09/19 History montelukast [Singulair] 10 mg PO HS 03/03/19 04/09/19 History pantoprazole 40 mg PO BID 03/03/19 04/09/19 History potassium chloride 10 meq PO QAM 03/03/19 04/09/19 History pramipexole [Mirapex] 0.5 mg PO QID 03/03/19 04/09/19 History ipratropium 20 mcg-albuterol 100 See Rx Instructions .ROUTE 03/21/19 04/09/19 Rx mcg/actuation mist for inhalation .COMPLEX #4 gram [id number] 1 puffs INH QAM 04/09/19 04/09/19 History [Trelegy Ellipta] prednisone 10 mg PO QAM 04/09/19 04/09/19 History Past Med/Surg History Medical History Anemia (Acute) Asthma (Acute) Bronchitis (Inactive) Carpal tunnel syndrome (Acute) CHF (congestive heart failure) (Acute) COPD (chronic obstructive pulmonary disease) (Acute) Chronic Oxygen prn at 3L COPD exacerbation (Inactive) Depression (Acute) GERD (gastroesophageal reflux disease) (Acute) History of cervical cancer (Acute) laser surgery to remove cancer per pt Hyperlipidemia (Acute) Hypertension (Acute) Obesity hypoventilation syndrome suspected Osteoarthritis (Acute) Restless leg syndrome (Acute) Surgical History History of colonoscopy (Acute) History of esophagogastroduodenoscopy (EGD) (Acute) Family History Other Medical history non-contributory Social History Preferred Language: Telugu Communication Ability: Effective Consumer Attorney Required: No Beliefs That Will Affect Care: None Current Living Situation: Family Current Living Situation Comment: with daughter Feels Safe at Home: Yes Smoking Status: Former smoker Tobacco Type: cigarettes ; Cigarettes Per Day: 1 pack per 3 days ; Second Hand Exposure: No ; Hx Alcohol Use: No Hx Substance Use: No Childhood Exposure to Second-Hand Smoke: Yes Review of Systems Review of Systems: All systems reviewed & are unremarkable except as noted in HPI & below Physical Exam Physical Exam: General: Alert to command. Mild respiratory distress. Wearing BiPAP. HENT: Normocephalic, atraumatic, pupils round and equally reactive to light, oral mucosa: moist Neck: Supple, no lymph nodes palpated, no thyromegaly CVS: Normal S1, S2. No murmur, rub or gallop. PMI non displaced. Peripheral pulses normal. Resp: Normal percussion. Diffuse wheezing bilaterally. No rales heard Abdomen: Soft, non tender, no hepatosplenomegaly. Bowel sounds positive Extremities: No pitting edema Neuro: Power 5/5 throughout, grossly normal sensations, DTR's normal Psychiatry: Normal mood, normal thought process Results & Data Vital Signs (Past 12 Hours) Vital Signs Temp Pulse Pulse Resp BP Pulse Ox 04/09/19 18:30 130 H 24 134/68 100 04/09/19 18:20 135 H 31 H 100 04/09/19 18:15 134 H 25 H 142/79 H 100 04/09/19 18:10 134 H 24 100 04/09/19 18:00 135 H 24 134/78 100 04/09/19 17:50 135 H 37 H 100 04/09/19 17:45 131 H 27 H 128/72 100 04/09/19 17:40 132 H 24 100 04/09/19 17:36 131 H 131 H 30 H 100 04/09/19 17:30 129 H 23 112/72 100 04/09/19 17:20 130 H 22 98 04/09/19 17:15 132 H 24 157/69 H 96 04/09/19 17:10 133 H 24 100 04/09/19 17:01 134 H 32 H 100 04/09/19 17:00 134 H 30 H 143/62 H 98 04/09/19 16:51 133 H 28 H 100 04/09/19 16:50 138 H 19 99 04/09/19 16:47 100 04/09/19 16:40 136 H 26 H 100 04/09/19 16:31 140 H 29 H 100 04/09/19 16:30 140 H 29 H 139/73 99 04/09/19 16:28 141 H 30 H 100 04/09/19 16:26 141 H 23 117/80 100 04/09/19 16:23 39.2 C H 147 H 44 H 117/80 100 Laboratory Results Laboratory Results - last 24 hr 04/09/19 04/09/19 04/09/19 16:26 16:46 16:46 WBC RBC Hgb Hct MCV MCH MCHC RDW Std Deviation RDW Coeff of Angelo Plt Count MPV Immature Gran % (Auto) Neut % (Auto) Lymph % (Auto) [place] % (Auto) Eos % (Auto) Baso % (Auto) Immature Gran # (Auto) Neut # (Auto) Lymph # (Auto) [place] # (Auto) Eos # (Auto) Baso # (Auto) VBG pH VBG pCO2 VBG pO2 VBG HCO3 VBG O2 Saturation VBG Base Excess Barometric Pressure Sodium 138 Potassium 3.7 Chloride 104 Carbon Dioxide 28 Anion Gap 7.0 BUN 13 Creatinine 0.88 Est Cr Clr Drug Dosing 76.0 Est GFR ( Amer) 80.5 Est GFR (Non-Af Amer) 69.4 BUN/Creatinine Ratio 14.6 Glucose 144 H Lactate 2.1 H* Calcium 8.9 Magnesium 1.9 Total Bilirubin 0.2 AST 18 ALT 30 Alkaline Phosphatase 87 Troponin I < 0.015 Total Protein 7.4 Albumin 3.4 Globulin 4.0 Albumin/Globulin Ratio 0.8 L Lipase 47 L Procalcitonin Influenza Type A (PCR) Neg for Influ A Influenza Type B (PCR) Neg for Influ B 04/09/19 04/09/19 04/09/19 16:46 16:46 16:46 WBC 10.35 RBC 3.99 L Hgb 10.4 L Hct 34.5 L MCV 86.5 MCH 26.1 MCHC 30.1 L RDW Std Deviation 54.5 H RDW Coeff of Angelo 17.2 H Plt Count 334 MPV 9.3 Immature Gran % (Auto) 0.1 Neut % (Auto) 87.6 Lymph % (Auto) 5.4 [place] % (Auto) 6.8 Eos % (Auto) 0.0 Baso % (Auto) 0.1 Immature Gran # (Auto) 0.01 Neut # (Auto) 9.07 H Lymph # (Auto) 0.56 L [place] # (Auto) 0.70 H Eos # (Auto) 0.00 Baso # (Auto) 0.01 VBG pH 7.44 H VBG pCO2 44 VBG pO2 43 VBG HCO3 29 VBG O2 Saturation 77.2 VBG Base Excess 4.2 Barometric Pressure 729.3 Sodium Potassium Chloride Carbon Dioxide Anion Gap BUN Creatinine Est Cr Clr Drug Dosing Est GFR ( Amer) Est GFR (Non-Af Amer) BUN/Creatinine Ratio Glucose Lactate Calcium Magnesium Total Bilirubin AST ALT Alkaline Phosphatase Troponin I Total Protein Albumin Globulin Albumin/Globulin Ratio Lipase Procalcitonin 0.05 Influenza Type A (PCR) Influenza Type B (PCR) 04/09/19 18:40 WBC RBC Hgb Hct MCV MCH MCHC RDW Std Deviation RDW Coeff of Angelo Plt Count MPV Immature Gran % (Auto) Neut % (Auto) Lymph % (Auto) [place] % (Auto) Eos % (Auto) Baso % (Auto) Immature Gran # (Auto) Neut # (Auto) Lymph # (Auto) [place] # (Auto) Eos # (Auto) Baso # (Auto) VBG pH VBG pCO2 VBG pO2 VBG HCO3 VBG O2 Saturation VBG Base Excess Barometric Pressure Sodium Potassium Chloride Carbon Dioxide Anion Gap BUN Creatinine Est Cr Clr Drug Dosing Est GFR ( Amer) Est GFR (Non-Af Amer) BUN/Creatinine Ratio Glucose Lactate Pending Calcium Magnesium Total Bilirubin AST ALT Alkaline Phosphatase Troponin I Total Protein Albumin Globulin Albumin/Globulin Ratio Lipase Procalcitonin Influenza Type A (PCR) Influenza Type B (PCR) Diagnostic Findings Chest x-ray, personally reviewed showed possible infiltrate at the left lower base EKG showed sinus tachycardia Code Status & VTE Plan VTE Prophylaxis Plan VTE Prophylaxis will be ordered: Yes (1) Respiratory failure Chronicity: unspecified Respiratory failure complication: unspecified whether with hypoxia or hypercapnia Qualified Code(s): J96.90 - Respiratory failure, unspecified, unspecified whether with hypoxia or hypercapnia (2) Diabetes Diabetes mellitus complication status: without complication 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
[2019-04-09] MEDS ORDERED: DEXTROSE 50% 50 ML SYRINGE IV PRN (19:20)
[2019-04-09] MEDS ORDERED: GLUCOSE 40% GEL 15 GM TUBE PO PRN (19:20)
[2019-04-09] MEDS ORDERED: GLUCAGON FOR INJ 1 MG VIAL SQ PRN (19:20)
[2019-04-09] MEDS ORDERED: ALBUTEROL 0.5% NEB SOLN 2.5 MG/0.5 ML VIAL NEB SCH (19:20)
[2019-04-09] MEDS ORDERED: CARBOHYDRATES FOR HYPOGLYCEMIA PO PRN (19:20)
[2019-04-09] MEDS ORDERED: VANCOMYCIN CONSULT ACTIVE PRN (19:20)
[2019-04-09] MEDS ORDERED: GLUCOSE 10 TABS/TUBE PO PRN (19:20)
[2019-04-09] MEDS ORDERED: NON-FORMULARY MEDICATION (Fluticasone-Umeclidin-Vilanter [Trelegy Ellipta] 1 PUFFS) INH SCH (19:20)
[2019-04-09] MEDS ORDERED: VANCOMYCIN HCL 2,250 MG in SODIUM CHLORIDE 0.9% 500 ML IV ONE (20:30)
[2019-04-09] MEDS: PANTOprazole 40 MG TAB PO SCH (20:39)
[2019-04-09] MEDS: ENOXAPARIN INJ 40 MG/0.4 ML SYR SQ SCH (20:39)
[2019-04-09] MEDS: AMITRIPTYLINE HCL 10 MG TAB PO SCH (20:39)
[2019-04-09] MEDS: PRAMIPEXOLE DIHYDROCHLO 0.5 MG TAB PO SCH (20:39)
[2019-04-09] MEDS: DULOXETINE HCL 20 MG CAP PO SCH (20:39)
[2019-04-09] MEDS: MONTELUKAST SODIUM 10 MG TABLET PO SCH (20:39)
--- NOTE | 2019-04-09 20:42 | Pharmacy Report ---
Pharmacy Abx Dose Short Note - Date of Service April 09, 2019 - Assessment & Plan Laboratory Tests 04/09/19 04/09/19 16:46 16:46 WBC 10.35 Creatinine 0.88 Est Cr Clr Drug Dosing 76.0 Assessment 63 year old F receiving VANC/CEFEPIME for treatment of pulmonary source infection Day # 1 of antimicrobial therapy. * cefepime 2g IV q8h Plan Vancomycin * Estimate Pk ~0.0675hr-1, T1/2~10hrs * LOADING DOSE: Vanc 2250mg (~21mg/kg) IV x 1 then * MAINTENANCE DOSE: 1250mg IV q 12h * Goal trough level: 15 to 20 mcg/mL * VANC trough level ordered @[facility] prior to 04/11/19 0600 dose Pharmacy will continue to follow and will adjust dose/frequency as necessary. Thank you.
[2019-04-09] MEDS ORDERED: INSULIN ASPART 100 UNITS/ML 3 ML PEN SC SCH (21:00)
[2019-04-09] MEDS ORDERED: Nursing to Pharmacy Communication ONE (22:27)
[2019-04-09] MEDS: ALBUTEROL 0.083% NEBU SOLN 3 ML VIAL INH SCH (23:31)
[2019-04-09] MEDS: CEFEPIME 2,000 MG in SYRINGE 7.5 ML IV SCH (23:43)
[2019-04-10 01:41] LABS: Appearance Urine Cloudy (Clear); Bilirubin Urine Negative (Negative); Blood Urine 1+ (Negative); Color Urine Yellow; Epithelial Cell Urine Auto >30 /lpf (0-5); Glucose Urine UA 1+ (Negative); Ketones Urine Negative (Negative); Leukocyte Esterase Urine Negative (Negative); Nitrite Urine Negative (Negative); Protein Urine Negative (Negative); Specific Gravity Urine 1.017 (1.000-1.030); Urobilinogen Urine Negative (Negative)
[2019-04-10 02:00] LABS: Bacteria Urine Automated 1+ (Negative); Mucus Urine Present (None Prsent)
[2019-04-10 02:01] LABS: Cast Urine Automated 0 /lpf (0-5)
[2019-04-10] MEDS: ALBUTEROL 0.083% NEBU SOLN 3 ML VIAL INH SCH ×2 (03:39→07:04)
[2019-04-10] MEDS ORDERED: INSULIN ASPART 100 UNITS/ML 3 ML PEN SC SCH (06:00)
[2019-04-10] MEDS: methylPREDNISolone 40 MG in SYRINGE 0 ML IV SCH ×3 (06:14→20:25)
[2019-04-10] MEDS: VANCOMYCIN HCL 1,250 MG in SODIUM CHLORIDE 0.9% 250 ML IV SCH ×2 (06:14→17:52)
[2019-04-10 06:22] LABS: Mean Corpuscular Hgb Conc 30.3 g/dL (32-36); Platelet Count 307 K/uL (130-400)
[2019-04-10 06:45] LABS: Basophilic Stippling 1+; Hematocrit (blood only) 31.7 % (37-47); Hemoglobin 9.6 g/dL (12.0-16.0); Immature Granulocytes # (auto) 0.03 K/uL (0.00-0.02); Immature Granulocytes % (auto) 0.3 %; Lymphocytes # (auto) 0.95 K/uL (1.2-3.4); Lymphocytes % (auto) 8.3 %; Mean Corpuscular Hemoglobin 26.3 pg (25-34); Mean Corpuscular Volume 86.8 fL (80-100); Monocytes # (auto) 0.79 K/uL (0.11-0.59); Monocytes % (auto) 6.9 %; Neutrophils # (auto) 9.69 K/uL (1.4-6.5); Neutrophils % (auto) 84.5 %; RDW Coefficient of Variation 17.1 % (11.5-14.5); RDW Standard Deviation 54.7 fL (36.4-46.3); Red Blood Count 3.65 M/uL (4.2-5.4); White Blood Count 11.46 K/uL (4.8-10.8)
[2019-04-10 06:52] LABS: BUN Creatinine Ratio 18.3 (10-20); Calcium 8.5 mg/dl (8.5-10.1); Creatinine Clr Calc Pharmacy 100.8 ml/min; Est GFR (African American) 108.2; Est GFR (Non-African American) 93.4; Potassium 4.1 mmol/L (3.5-5.1)
[2019-04-10] MEDS: FERROUS SULFATE 325 MG TAB PO SCH (08:17)
[2019-04-10] MEDS: FLUTICASONE FUROATE 100MCG 14 PUFFS/INHALER INH SCH (08:18)
[2019-04-10] MEDS: UMECLIDINIUM/VILANTEROL 62.5/25MCG 7 PUFFS/INHALER INH SCH (08:18)
[2019-04-10] MEDS: DULOXETINE HCL 20 MG CAP PO SCH ×2 (08:18→20:24)
[2019-04-10] MEDS: FAMOTIDINE 20 MG TAB PO SCH (08:19)
[2019-04-10] MEDS: PANTOprazole 40 MG TAB PO SCH ×2 (08:19→20:25)
[2019-04-10] MEDS: PRAMIPEXOLE DIHYDROCHLO 0.5 MG TAB PO SCH ×4 (08:19→20:23)
[2019-04-10] MEDS: ATORVASTATIN 40 MG TAB PO SCH (08:19)
[2019-04-10] MEDS: CEFEPIME 2,000 MG in SYRINGE 7.5 ML IV SCH ×2 (08:33→17:17)
[2019-04-10] MEDS ORDERED: PHARMACY GLYCEMIC MGMT CONSULT PRN (08:42)
[2019-04-10] MEDS ORDERED: FUROSEMIDE 20 MG TAB PO SCH (09:00)
[2019-04-10] MEDS ORDERED: INSULIN ASPART 100 UNITS/ML 3 ML PEN SC STA (09:01)
--- NOTE | 2019-04-10 09:11 | Hospitalist Progress Note ---
Date of Service April 10, 2019 Assessment & Plan (1) Respiratory failure: (2) COPD exacerbation: (3) Pneumonia: Acute on chronic hypoxic respiratory failure, COPD exacerbation secondary to left lower lobe pneumonia -- CXR: Left lower lobe pneumonia --Obtain sputum culture Obtain nasal MRSA swab --Started on Solu-Medrol every 8 hours, vancomycin plus cefepime, nebs Clinically improving, off BiPAP --Pulmonary service consulted Chronic respiratory failure secondary to Asthma/COPD overlap syndrome on home O2 past tobacco abuse --Management per #1 chronic diastolic heart failure as per records (EF 65 to 70%, TTE 2018) --Euvolemic hypertension -- stable --Continue usual medications DM2 on oral meds, suboptimal control as of recent outpatient hemoglobin A1c of 8.28 January 2019 --On insulin, pharmacy glycemic control consulted in light of Solu-Medrol use chronic anemia --Baseline hemoglobin around 10 Currently 9.6, monitor Disposition Anticipate discharge to home medically stable Admission and Anticipated Discharge Date Admission Date: April 09, 2019 Subjective Follow-up for chronic respiratory failure, pneumonia, but exacerbation Seen resting in bed, off BiPAP, back to baseline nasal cannula, comfortable states she feels improved compared to admission Less shortness of breath, still having productive cough, green sputum No chest pain, dizziness, palpitations No other symptoms Review of Systems Review of Systems: All systems reviewed & are unremarkable except as noted in HPI & below Physical Exam Physical Exam: General- oriented x 3, not in distress, speaks in sentences with no effort or accessory muscle use Head- atraumatic Eyes- PERRL, EOMI, anicteric ENT- oropharynx clear Neck- supple, no JVD, no adenopathy, no thyromegaly; carotids +2/2, no bruits appreciated Lungs-positive diffuse, scattered mild wheeze bilaterally, no crackles Heart- normal rate, regular rhythm; no murmur, no gallop, no rub appreciated Abdomen- normal bowel sounds, nondistended, soft, nontender, no masses or hepatosplenomegaly Extremities- no pretibial edema, no calf tenderness; peripheral pulses intact Neuro- alert, oriented x 3; CN 2-12 grossly intact; motor 5/5 bilaterally;sensation 100% on all extremities; no other gross focal neurologic deficits Skin- warm & dry Results & Data ([facility]) Vital Signs (Past 12 Hours) Vital Signs Temp Pulse Pulse Resp BP Pulse Ox 04/10/19 07:33 36.2 C L 90 21 157/85 H 100 04/10/19 07:04 86 86 19 100 04/10/19 04:06 36.6 C 95 H 19 126/77 90 04/10/19 03:43 97 H 30 H 95 04/10/19 03:42 97 H 30 H 95 04/09/19 23:36 102 H 21 100 04/09/19 23:34 102 H 21 100 04/09/19 23:10 36 C L 100 H 22 142/72 H 100 Laboratory Results Laboratory Results - last 24 hr 04/09/19 04/09/19 04/09/19 16:26 16:46 16:46 WBC RBC Hgb Hct MCV MCH MCHC RDW Std Deviation RDW Coeff of Angelo Plt Count MPV Immature Gran % (Auto) Neut % (Auto) Lymph % (Auto) [place] % (Auto) Eos % (Auto) Baso % (Auto) Immature Gran # (Auto) Neut # (Auto) Lymph # (Auto) [place] # (Auto) Eos # (Auto) Baso # (Auto) Basophilic Stippling VBG pH VBG pCO2 VBG pO2 VBG HCO3 VBG O2 Saturation VBG Base Excess Barometric Pressure Sodium 138 Potassium 3.7 Chloride 104 Carbon Dioxide 28 Anion Gap 7.0 BUN 13 Creatinine 0.88 Est Cr Clr Drug Dosing 76.0 Est GFR ( Amer) 80.5 Est GFR (Non-Af Amer) 69.4 BUN/Creatinine Ratio 14.6 Glucose 144 H POC Glucose Lactate 2.1 H* Calcium 8.9 Magnesium 1.9 Total Bilirubin 0.2 AST 18 ALT 30 Alkaline Phosphatase 87 Troponin I < 0.015 Total Protein 7.4 Albumin 3.4 Globulin 4.0 Albumin/Globulin Ratio 0.8 L Lipase 47 L Procalcitonin Urine Color Urine Appearance Urine pH Ur Specific [place] Urine Protein Urine Glucose (UA) Urine Ketones Urine Blood Urine Nitrite Urine Bilirubin Urine Urobilinogen Ur Leukocyte Esterase Urine WBC (Auto) Urine RBC (Auto) U Hyaline Cast (Auto) U Epithel Cells (Auto) Urine Bacteria (Auto) Urine Mucus Urine Yeast Nasal Screen MRSA (PCR) Influenza Type A (PCR) Neg for Influ A Influenza Type B (PCR) Neg for Influ B 04/09/19 04/09/19 04/09/19 16:46 16:46 16:46 WBC 10.35 RBC 3.99 L Hgb 10.4 L Hct 34.5 L MCV 86.5 MCH 26.1 MCHC 30.1 L RDW Std Deviation 54.5 H RDW Coeff of Angelo 17.2 H Plt Count 334 MPV 9.3 Immature Gran % (Auto) 0.1 Neut % (Auto) 87.6 Lymph % (Auto) 5.4 [place] % (Auto) 6.8 Eos % (Auto) 0.0 Baso % (Auto) 0.1 Immature Gran # (Auto) 0.01 Neut # (Auto) 9.07 H Lymph # (Auto) 0.56 L [place] # (Auto) 0.70 H Eos # (Auto) 0.00 Baso # (Auto) 0.01 Basophilic Stippling VBG pH 7.44 H VBG pCO2 44 VBG pO2 43 VBG HCO3 29 VBG O2 Saturation 77.2 VBG Base Excess 4.2 Barometric Pressure 729.3 Sodium Potassium Chloride Carbon Dioxide Anion Gap BUN Creatinine Est Cr Clr Drug Dosing Est GFR ( Amer) Est GFR (Non-Af Amer) BUN/Creatinine Ratio Glucose POC Glucose Lactate Calcium Magnesium Total Bilirubin AST ALT Alkaline Phosphatase Troponin I Total Protein Albumin Globulin Albumin/Globulin Ratio Lipase Procalcitonin 0.05 Urine Color Urine Appearance Urine pH Ur Specific [place] Urine Protein Urine Glucose (UA) Urine Ketones Urine Blood Urine Nitrite Urine Bilirubin Urine Urobilinogen Ur Leukocyte Esterase Urine WBC (Auto) Urine RBC (Auto) U Hyaline Cast (Auto) U Epithel Cells (Auto) Urine Bacteria (Auto) Urine Mucus Urine Yeast Nasal Screen MRSA (PCR) Influenza Type A (PCR) Influenza Type B (PCR) 04/09/19 04/09/19 04/10/19 18:40 19:52 01:25 WBC RBC Hgb Hct MCV MCH MCHC RDW Std Deviation RDW Coeff of Angelo Plt Count MPV Immature Gran % (Auto) Neut % (Auto) Lymph % (Auto) [place] % (Auto) Eos % (Auto) Baso % (Auto) Immature Gran # (Auto) Neut # (Auto) Lymph # (Auto) [place] # (Auto) Eos # (Auto) Baso # (Auto) Basophilic Stippling VBG pH VBG pCO2 VBG pO2 VBG HCO3 VBG O2 Saturation VBG Base Excess Barometric Pressure Sodium Potassium Chloride Carbon Dioxide Anion Gap BUN Creatinine Est Cr Clr Drug Dosing Est GFR ( Amer) Est GFR (Non-Af Amer) BUN/Creatinine Ratio Glucose POC Glucose 189 H Lactate 1.7 Calcium Magnesium Total Bilirubin AST ALT Alkaline Phosphatase Troponin I Total Protein Albumin Globulin Albumin/Globulin Ratio Lipase Procalcitonin Urine Color Yellow Urine Appearance Cloudy A Urine pH 6.0 Ur Specific [place] 1.017 Urine Protein Negative Urine Glucose (UA) 1+ H Urine Ketones Negative Urine Blood 1+ H Urine Nitrite Negative Urine Bilirubin Negative Urine Urobilinogen Negative Ur Leukocyte Esterase Negative Urine WBC (Auto) 1-5 Urine RBC (Auto) 5-10 H U Hyaline Cast (Auto) 0 U Epithel Cells (Auto) >30 H Urine Bacteria (Auto) 1+ H Urine Mucus Present A Urine Yeast Present A Nasal Screen MRSA (PCR) Influenza Type A (PCR) Influenza Type B (PCR) 04/10/19 04/10/19 04/10/19 06:09 06:10 06:10 WBC 11.46 H RBC 3.65 L Hgb 9.6 L Hct 31.7 L MCV 86.8 MCH 26.3 MCHC 30.3 L RDW Std Deviation 54.7 H RDW Coeff of Angelo 17.1 H Plt Count 307 MPV 9.0 Immature Gran % (Auto) 0.3 Neut % (Auto) 84.5 Lymph % (Auto) 8.3 [place] % (Auto) 6.9 Eos % (Auto) 0.0 Baso % (Auto) 0.0 Immature Gran # (Auto) 0.03 H Neut # (Auto) 9.69 H Lymph # (Auto) 0.95 L [place] # (Auto) 0.79 H Eos # (Auto) 0.00 Baso # (Auto) 0.00 Basophilic Stippling 1+ VBG pH VBG pCO2 VBG pO2 VBG HCO3 VBG O2 Saturation VBG Base Excess Barometric Pressure Sodium 140 Potassium 4.1 Chloride 106 Carbon Dioxide 28 Anion Gap 6.0 BUN 12 Creatinine 0.66 Est Cr Clr Drug Dosing 100.8 Est GFR ( Amer) 108.2 Est GFR (Non-Af Amer) 93.4 BUN/Creatinine Ratio 18.3 Glucose 156 H POC Glucose 212 H Lactate Calcium 8.5 Magnesium Total Bilirubin AST ALT Alkaline Phosphatase Troponin I Total Protein Albumin Globulin Albumin/Globulin Ratio Lipase Procalcitonin Urine Color Urine Appearance Urine pH Ur Specific [place] Urine Protein Urine Glucose (UA) Urine Ketones Urine Blood Urine Nitrite Urine Bilirubin Urine Urobilinogen Ur Leukocyte Esterase Urine WBC (Auto) Urine RBC (Auto) U Hyaline Cast (Auto) U Epithel Cells (Auto) Urine Bacteria (Auto) Urine Mucus Urine Yeast Nasal Screen MRSA (PCR) Influenza Type A (PCR) Influenza Type B (PCR) 04/10/19 04/10/19 04/10/19 06:10 07:35 09:20 WBC RBC Hgb Hct MCV MCH MCHC RDW Std Deviation RDW Coeff of Angelo Plt Count MPV Immature Gran % (Auto) Neut % (Auto) Lymph % (Auto) [place] % (Auto) Eos % (Auto) Baso % (Auto) Immature Gran # (Auto) Neut # (Auto) Lymph # (Auto) [place] # (Auto) Eos # (Auto) Baso # (Auto) Basophilic Stippling VBG pH VBG pCO2 VBG pO2 VBG HCO3 VBG O2 Saturation VBG Base Excess Barometric Pressure Sodium Potassium Chloride Carbon Dioxide Anion Gap BUN Creatinine Est Cr Clr Drug Dosing Est GFR ( Amer) Est GFR (Non-Af Amer) BUN/Creatinine Ratio Glucose POC Glucose 204 H Lactate 1.0 Calcium Magnesium Total Bilirubin AST ALT Alkaline Phosphatase Troponin I Total Protein Albumin Globulin Albumin/Globulin Ratio Lipase Procalcitonin Urine Color Urine Appearance Urine pH Ur Specific [place] Urine Protein Urine Glucose (UA) Urine Ketones Urine Blood Urine Nitrite Urine Bilirubin Urine Urobilinogen Ur Leukocyte Esterase Urine WBC (Auto) Urine RBC (Auto) U Hyaline Cast (Auto) U Epithel Cells (Auto) Urine Bacteria (Auto) Urine Mucus Urine Yeast Nasal Screen MRSA (PCR) Positive A Influenza Type A (PCR) Influenza Type B (PCR) 04/10/19 11:35 WBC RBC Hgb Hct MCV MCH MCHC RDW Std Deviation RDW Coeff of Angelo Plt Count MPV Immature Gran % (Auto) Neut % (Auto) Lymph % (Auto) [place] % (Auto) Eos % (Auto) Baso % (Auto) Immature Gran # (Auto) Neut # (Auto) Lymph # (Auto) [place] # (Auto) Eos # (Auto) Baso # (Auto) Basophilic Stippling VBG pH VBG pCO2 VBG pO2 VBG HCO3 VBG O2 Saturation VBG Base Excess Barometric Pressure Sodium Potassium Chloride Carbon Dioxide Anion Gap BUN Creatinine Est Cr Clr Drug Dosing Est GFR ( Amer) Est GFR (Non-Af Amer) BUN/Creatinine Ratio Glucose POC Glucose 185 H Lactate Calcium Magnesium Total Bilirubin AST ALT Alkaline Phosphatase Troponin I Total Protein Albumin Globulin Albumin/Globulin Ratio Lipase Procalcitonin Urine Color Urine Appearance Urine pH Ur Specific [place] Urine Protein Urine Glucose (UA) Urine Ketones Urine Blood Urine Nitrite Urine Bilirubin Urine Urobilinogen Ur Leukocyte Esterase Urine WBC (Auto) Urine RBC (Auto) U Hyaline Cast (Auto) U Epithel Cells (Auto) Urine Bacteria (Auto) Urine Mucus Urine Yeast Nasal Screen MRSA (PCR) Influenza Type A (PCR) Influenza Type B (PCR) (1) Respiratory failure Chronicity: unspecified Respiratory failure complication: unspecified whether with hypoxia or hypercapnia Qualified Code(s): J96.90 - Respiratory failure, unspecified, unspecified whether with hypoxia or hypercapnia (2) Pneumonia Laterality: left Lung location: lower lobe of lung Pneumonia type: due to unspecified organism Qualified Code(s): J18.9 - Pneumonia, unspecified organism
[2019-04-10] MEDS ORDERED: IPRATROPIUM BROMIDE NEB SOLN 0.02% 2.5 ML VIAL INH SCH ×2 (09:15→10:45)
[2019-04-10] MEDS ORDERED: INSULIN GLARGINE SOLOSTAR 100 UNITS/ML 3 ML PEN SC ONE ×2 (09:15→21:00)
[2019-04-10] MEDS ORDERED: LEVALBUTEROL 1.25MG/0.5ML NEB INH SCH ×2 (09:15→10:45)
--- NOTE | 2019-04-10 09:41 | Pharmacy Report ---
Glycemic Control Consultation - Date of Service April 10, 2019 - Scope Scope: Glycemic Pharmacist consulted for glycemic control and to write orders per [facility] inpatient glycemic control protocol - Objective Weight: 106.8 kg Accuchecks BSG (last 24hrs): 04/09/19 04/09/19 04/10/19 16:46 19:52 06:09 Glucose 144 H POC Glucose 189 H 212 H 04/10/19 04/10/19 06:10 07:35 Glucose 156 H POC Glucose 204 H Laboratory Data (last 24hrs): 04/09/19 04/10/19 16:46 06:10 Potassium 3.7 4.1 Carbon Dioxide 28 28 Anion Gap 7.0 6.0 Creatinine 0.88 0.66 Est Cr Clr Drug Dosing 76.0 100.8 - Recent Pertinent Medications Outpatient Anti-diabetic Regimen: * Metformin * Glimepiride * A1c = ordered for 04/11/19 The patient is currently receiving: * Basal insulin: None * Correctional Insulin: Novolog Correction per scale ACHS Goal Range: Low 140 mg/dL - High 180 mg/dL Correction Factor: 30 mg/dL/unit * Prandial insulin: Per carb ratio of 1 unit per 15 grams CHO consumed * Oral Agents: On hold Risk Factors for Insulin Resistance: * Steroids: Methylprednisolone 125 mg IV x1 then 40 mg IV q8h * Infection: COPD exacerbation, possible PNA * Diet: NPO - Assessment & Plan Assessment & Plan: ASSESSMENT: * 63 yo F with T2DM and unknown outpatient control admitted with respiratory failure 2nd COPD exacerbation +/- HAP * Recent admission February 2019 where patient was on lower dose of steroids than current and BSG's were fairly well controlled while on Lantus 20 units BID and Novolog ACHS with correction factor of 25 mg/dL/unit and carb ratio of 15 g CHO/unit * Will use previous admission data to help guide current admission regimen. But will reduce Lantus dose by 50% for NPO status and will tighten Novolog parame ters 2nd significantly increased steroid dose PLAN FOR INPATIENT GLYCEMIC CONTROL: * Holding outpatient oral diabetes medications * Basal insulin * Lantus 20 units SQ x1. Additional 10 units tonight if BSG >180 mg/dL * Bolus insulin * NovoLog per scale ACHS or Q6hrs while NPO * Goal Range: Low 110 mg/dL - High 150 mg/dL * Correction Factor: 20 mg/dL/unit * Nutritional / Prandial insulin per carb ratio of 1 unit per 7 grams CHO consumed * Please note that the plan above was derived based on current level of insulin resistance and hospital stress. These recommendations are appropriate for inpatient admission only. Plan of care upon discharge will need to be reassessed to avoid potential outpatient hypo/hyperglycemia. Thank you.
--- NOTE | 2019-04-10 10:50 | Pulmonary Consultation ---
Date of Consultation April 10, 2019 Assessment & Plan (1) COPD exacerbation: -- Acute on chronic Hypoxic respiratory failure Likely sec to COPD exacerbation continue to lower lobe pneumonia Influenza negative. Procalcitonin 0.05, follow-up ESR, CRP, mycoplasma IgM Continue with inhaled bronchodilators, steroids, antibiotics Maintain SPO2 between 88 to 92% BiPAP nightly and as needed shortness of breath Chest x-ray 04/09/2019 personally reviewed: Supportable film good inspiratory effort, hyperinflated film with flattened diaphragm, there is left lower lobe opacities appreciated retrocardiac. CT chest 05/07/2017 personally reviewed: Patient has severe emphysema --COPD with severe emphysema on 3L home O2 Patient is on optimal therapy at home which is LABA/lama/ICS inhaler --Morbid obesity with probable ARYAN Continue with BiPAP nightly and PRN shortness of breath Patient supposed to get a polysomnography done within a month as per the patient. Please note the above document was generated using voice recognition software. It may contain grammatical, syntax or spelling errors. (2) Pneumonia: Laterality: left Lung location: lower lobe of lung Pneumonia type: due to unspecified organism Qualified Code(s): J18.9 - Pneumonia, unspecified organism (3) SOB (shortness of breath): History of Present Illness Attending Physician: Rene Murillo MD History of Present Illness 63-year-old -[place] female with past medical history of COPD with emphysema on 3 L nasal cannula at home, diabetes comes to the hospital with complaints of shortness of breath which has been getting progressively worse since last for 5 days. She has been complaining of cough but difficulty bringing up any significant phlegm. Does complain of chest tightness. Denies any chest pain. Denies any hemoptysis Denies any nausea or vomiting. No diarrhea, no dysuria. Positive runny nose. No tearing from the eyes. No recent upper respiratory infection. Patient did have a grandson who was recently diagnosed with influenza. Patient's influenza was negative in the ED. Patient denies any night sweats, no weight loss. Patient states that she has been compliant with her inhalers at home. Social history: Greater than [id number] smoking history quit approximately 3 years ago, denies any illicit drug use right now. Used to do marijuana more than 15 years ago, social alcohol. 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 Was not wearing any m ask. Patient has a dog at home which she is allergic to apparently. Patient has been intubated in the past for COPD exacerbation last one being approximately 3 or 4 years ago. Allergies Allergy/AdvReac Type Severity Reaction Status Date / Time No Known Drug Allergies Allergy Unknown n/a Verified 04/09/19 17:28 pollen extracts Allergy Unknown SNEEZE,COUG Verified 04/09/19 17:28 H-WEEDS,GRA SS,POLLEN Home Medications Home Medications Medication Instructions Recorded Confirmed Type Vitron-C 1 tab PO BID 03/03/19 04/09/19 History albuterol sulfate [Ventolin HFA] 2 puff INHALATION Q4 PRN 03/03/19 04/09/19 History amitriptyline 20 mg PO HS 03/03/19 04/09/19 History amlodipine 5 mg PO QAM 03/03/19 04/09/19 History atorvastatin 40 mg PO QAM 03/03/19 04/09/19 History baclofen 10 mg PO BID PRN 03/03/19 04/09/19 History benzonatate 100 - 200 mg PO TID PRN 03/03/19 04/09/19 History duloxetine [Cymbalta] 20 mg PO BID 03/03/19 04/09/19 History famotidine [Pepcid] 20 mg PO QAM 03/03/19 04/09/19 History ferrous sulfate [iron] 325 mg PO QAM 03/03/19 04/09/19 History furosemide [Lasix] 20 mg PO QAM 03/03/19 04/09/19 History gabapentin 300 mg PO TID 03/03/19 04/09/19 History glimepiride [Amaryl] 2 mg PO QAM 03/03/19 04/09/19 History hydrocodone-acetaminophen [[place]] 1 tab PO Q8 PRN 03/03/19 04/09/19 History ipratropium-albuterol 3 ml INHALATION UD PRN 03/03/19 04/09/19 History loratadine [Claritin] 10 mg PO QAM 03/03/19 04/09/19 History magnesium oxide 400 mg PO QAM 03/03/19 04/09/19 History metformin 1,000 mg PO BID 03/03/19 04/09/19 History montelukast [Singulair] 10 mg PO HS 03/03/19 04/09/19 History pantoprazole 40 mg PO BID 03/03/19 04/09/19 History potassium chloride 10 meq PO QAM 03/03/19 04/09/19 History pramipexole [Mirapex] 0.5 mg PO QID 03/03/19 04/09/19 History ipratropium 20 mcg-albuterol 100 See Rx Instructions .ROUTE 03/21/19 04/09/19 Rx mcg/actuation mist for inhalation .COMPLEX #4 gram qeokocgylpj-nifkyriuo-mkvlcfmg 1 puffs INH QAM 04/09/19 04/09/19 History [Trelegy Ellipta] prednisone 10 mg PO QAM 04/09/19 04/09/19 History Patient History Medical History Anemia (Acute) Asthma (Acute) Bronchitis (Inactive) Carpal tunnel syndrome (Acute) CHF (congestive heart failure) (Acute) COPD (chronic obstructive pulmonary disease) (Acute) Chronic Oxygen prn at 3L COPD exacerbation (Inactive) Depression (Acute) GERD (gastroesophageal reflux disease) (Acute) History of cervical cancer (Acute) laser surgery to remove cancer per pt Hyperlipidemia (Acute) Hypertension (Acute) Obesity hypoventilation syndrome suspected Osteoarthritis (Acute) Restless leg syndrome (Acute) Surgical History History of colonoscopy (Acute) History of esophagogastroduodenoscopy (EGD) (Acute) Family History Other Medical history non-contributory Social History Preferred Language: Tristanian Communication Ability: Effective Manager Oracle Database Required: No Beliefs That Will Affect Care: None Current Living Situation: Family Current Living Situation Comment: with daughter Other Information That Helps Us Care for You: No Feels Safe at Home: Yes Safety Concerns: Feels Safe At This Time Smoking Status: Former smoker Tobacco Type: cigarettes ; Cigarettes Per Day: 1 pack per 3 days ; Second Hand Exposure: No ; Hx Alcohol Use: No Hx Substance Use: No Childhood Exposure to Second-Hand Smoke: Yes Review of Systems Review of Systems: All systems reviewed & are unremarkable except as noted in HPI & below Physical Exam Physical Exam: constitutional: Mild respiratory distress, coughing at the time of examination HEENT: EOMI, PERRLA, mild exophthalmos, conjunctival congestion Respiratory system: Decreased air entry bilaterally, diffuse rhonchi, diffuse expiratory wheeze, no crackles CVS: S1-S2 positive, no murmurs or gallops, tachycardia Abdomen: Soft, nontender, nondistended, positive bowel sounds x4 Extremities: +2 pulses bilaterally radialis/ dorsalis pedis, no cyanosis, no edema Neuro: Awake alert oriented x3 Psych: Normal mood and affect G/U: No [place] Skin: no rashes, warm and dry Lymphatic: no cervical or axillary lymphadenopathy Results & Data ([facility]) Vital Signs (Past 12 Hours) Vital Signs Temp Pulse Pulse Resp BP Pulse Ox 04/10/19 10:18 101 H 20 95 04/10/19 08:00 90 04/10/19 07:33 36.2 C L 90 21 157/85 H 100 04/10/19 07:04 86 86 19 100 04/10/19 04:06 36.6 C 95 H 19 126/77 90 04/10/19 03:43 97 H 30 H 95 04/10/19 03:42 97 H 30 H 95 04/09/19 23:36 102 H 21 100 04/09/19 23:34 102 H 21 100 04/09/19 23:10 36 C L 100 H 22 142/72 H 100 04/10/19 06:10 04/10/19 06:10 PG Care Time/CCT Total # of Minutes Spent Total Time Spent with Patient: Total time spent is greater than 50% in coordination of care (as documented) at patient's floor/unit and/or counseling patient: Coding Level of Care Code 35970 Initial Inpt Care Lvl 3 Diagnoses COPD exacerbation J44.1 Pneumonia J18.9 Laterality: left Lung location: lower lobe of lung Pneumonia type: due to unspecified organism SOB (shortness of breath) R06.02
[2019-04-10] MEDS ORDERED: XOPENEX/ATROVENT 1.25mg/0.5MG NEB COMBO NEB SCH (11:00)
[2019-04-10] MEDS ORDERED: Nursing to Pharmacy Communication ONE (11:42)
[2019-04-10] MEDS: INSULIN ASPART 100 UNITS/ML 3 ML PEN SC SCH ×3 (12:13→20:47)
[2019-04-10] MEDS: LEVALBUTEROL 1.25MG/0.5ML NEB INH SCH ×3 (15:03→23:31)
[2019-04-10] MEDS: IPRATROPIUM BROMIDE NEB SOLN 0.02% 2.5 ML VIAL INH SCH ×3 (15:03→23:31)
[2019-04-10 19:19] LABS: Allen Test POS (Pos); Base Excess ABG 1.5 mEq/L (-9-1.8); HCO3 ABG 27 mmol/L (19-24); Oxygen Saturation ABG 96.5 % (90-95); PCO2 ABG 45 mmHg (35-46); PO2 ABG 85 mmHg (80-95)
[2019-04-10] MEDS: ACETYLCYSTEINE 20% INHAL SOLN 4ML ***DISPENSED BY RESP. INH SCH (19:23)
[2019-04-10] MEDS ORDERED: LORazepam 0.5 MG TAB PO STA (19:58)
[2019-04-10] MEDS: guaiFENesin 600 MG TABCR PO SCH (20:23)
[2019-04-10] MEDS: MONTELUKAST SODIUM 10 MG TABLET PO SCH (20:24)
[2019-04-10] MEDS: ENOXAPARIN INJ 40 MG/0.4 ML SYR SQ SCH (20:24)
[2019-04-10] MEDS: AMITRIPTYLINE HCL 10 MG TAB PO SCH (20:24)
[2019-04-10] MEDS ORDERED: XOPENEX/ATROVENT 1.25mg/0.5MG NEB COMBO NEB PRN (20:34)
[2019-04-10] MEDS ORDERED: IPRATROPIUM BROMIDE NEB SOLN 0.02% 2.5 ML VIAL INH PRN (20:45)
[2019-04-10] MEDS ORDERED: LEVALBUTEROL 1.25MG/0.5ML NEB INH PRN (20:45)
[2019-04-11] MEDS: CEFEPIME 2,000 MG in SYRINGE 7.5 ML IV SCH ×3 (00:29→16:31)
[2019-04-11] MEDS ORDERED: INSULIN ASPART 100 UNITS/ML 3 ML PEN SC ONE (02:00)
[2019-04-11] MEDS: LEVALBUTEROL 1.25MG/0.5ML NEB INH SCH ×6 (02:15→22:47)
[2019-04-11] MEDS: IPRATROPIUM BROMIDE NEB SOLN 0.02% 2.5 ML VIAL INH SCH ×6 (02:15→22:47)
[2019-04-11] MEDS ORDERED: guaiFENesin SUGAR FREE 200 MG/10 ML UDC PO PRN (04:31)
[2019-04-11] MEDS ORDERED: VANCOMYCIN TROUGH ONE ×2 (05:30→15:30)
[2019-04-11] MEDS: VANCOMYCIN HCL 1,250 MG in SODIUM CHLORIDE 0.9% 250 ML IV SCH (05:57)
[2019-04-11] MEDS: methylPREDNISolone 40 MG in SYRINGE 0 ML IV SCH ×3 (05:57→20:50)
[2019-04-11 06:31] LABS: Creatinine Clr Calc Pharmacy 102.4 ml/min; Est GFR (African American) 108.7; Est GFR (Non-African American) 93.8
[2019-04-11 07:11] LABS: Estimated Average Glucose 154 mg/dl
[2019-04-11] MEDS: ACETYLCYSTEINE 20% INHAL SOLN 4ML ***DISPENSED BY RESP. INH SCH (07:15)
[2019-04-11] MEDS ORDERED: INSULIN GLARGINE SOLOSTAR 100 UNITS/ML 3 ML PEN SC ONE ×2 (07:30→21:00)
[2019-04-11] MEDS: FERROUS SULFATE 325 MG TAB PO SCH (07:50)
[2019-04-11] MEDS: INSULIN ASPART 100 UNITS/ML 3 ML PEN SC SCH ×4 (07:53→20:52)
[2019-04-11] MEDS: UMECLIDINIUM/VILANTEROL 62.5/25MCG 7 PUFFS/INHALER INH SCH (08:59)
[2019-04-11] MEDS: FLUTICASONE FUROATE 100MCG 14 PUFFS/INHALER INH SCH (08:59)
[2019-04-11] MEDS: ATORVASTATIN 40 MG TAB PO SCH (09:00)
[2019-04-11] MEDS: DULOXETINE HCL 20 MG CAP PO SCH ×2 (09:00→20:50)
[2019-04-11] MEDS: guaiFENesin 600 MG TABCR PO SCH ×2 (09:00→20:50)
[2019-04-11] MEDS: FAMOTIDINE 20 MG TAB PO SCH (09:00)
[2019-04-11] MEDS: PRAMIPEXOLE DIHYDROCHLO 0.5 MG TAB PO SCH ×4 (09:00→20:49)
[2019-04-11] MEDS: PANTOprazole 40 MG TAB PO SCH ×2 (09:01→20:49)
--- NOTE | 2019-04-11 13:22 | Pharmacy Report ---
Pharmacy Glycemic Short Note 2 - Date of Service April 11, 2019 - Glycemic Short BSG Results (Last 24 hours): 04/10/19 04/10/19 04/11/19 16:37 20:27 01:57 POC Glucose 265 H 144 H 165 H 04/11/19 04/11/19 07:05 11:41 POC Glucose 163 H 99 Outpatient Anti-diabetic Regimen: * Metformin * Glimepiride * A1c = 7.0% on 04/11/19 Risk Factors for Insulin Resistance: * Steroids: Methylprednisolone 125 mg IV x1 then 40 mg IV q8h * Infection: COPD exacerbation, possible PNA * Diet: T2DM ASSESSMENT: * 63 yo F with T2DM with good outpatient control on two oral agents admitted with respiratory failure 2nd COPD exacerbation +/- HAP * Initial regimen based on review of glycemic control and stressors from February 2019 admission * AM fasting BSG above goal with noted increase in BSG overnight - will increase Lantus * BSG's decreased from breakfast to lunch - will loosen Novolog parameters PLAN FOR INPATIENT GLYCEMIC CONTROL: * Holding outpatient oral diabetes medications * Basal insulin * Lantus 25 units SQ x1 * Bolus insulin * NovoLog per scale ACHS or Q6hrs while NPO * Goal Range: Low 110 mg/dL - High 150 mg/dL * Correction Factor: 25 mg/dL/unit * Nutritional / Prandial insulin per carb ratio of 1 unit per 9 grams CHO consumed
--- NOTE | 2019-04-11 13:28 | Pharmacy Report ---
Pharmacy Abx Dose Short Note - Date of Service April 11, 2019 - Assessment & Plan Assessment * 63 year old F receiving cefepime and vancomycin for treatment of COPD exacerbation +/- HAP * Nasal MRSA swab positive * Sputum culture pending * Renal function stable * Fever on admission noted. Has been afebrile since that time. Vancomycin * Goal trough 15-20 mcg/mL * Trough of 9.9 mcg/mL is subtherapeutic * Will increase vancomycin. * Moderate increase only 2nd high risk accumulation 2nd BMI 41 kg/m2. Will therefore check early repeat trough (prior to steady state) Plan * Increase vancomycin 1500 mg IV q12h * Trough 04/12 @ 1530 Pharmacy will continue to follow and will adjust dose/frequency as necessary. Thank you.
[2019-04-11] MEDS: VANCOMYCIN HCL 1,500 MG in SODIUM CHLORIDE 0.9% 500 ML IV SCH (16:31)
--- NOTE | 2019-04-11 16:42 | Pulmonology Progress Note ---
Date of Service April 11, 2019 Assessment & Plan (1) COPD exacerbation: -- Acute on chronic Hypoxic respiratory failure Likely sec to COPD exacerbation continue to lower lobe pneumonia Influenza negative. Procalcitonin 0.05, follow-up ESR greater than 90, CRP: 11.1, follow-up mycoplasma IgM, f/u sputum culture. Continue with inhaled bronchodilators, steroids, antibiotics with atypical coverage. Maintain SPO2 between 88 to 92% BiPAP nightly and as needed shortness of breath Chest x-ray 04/09/2019 personally reviewed: Supportable film good inspiratory effort, hyperinflated film with flattened diaphragm, there is left lower lobe opacities appreciated retrocardiac. CT chest 05/07/2017 personally reviewed: Patient has severe emphysema --COPD with severe emphysema on 3L home O2 Patient is on optimal therapy at home which is LABA/LAMA/ICS inhaler --Morbid obesity with probable ARYAN Continue with BiPAP nightly and PRN shortness of breath Patient supposed to get a polysomnography done within a month as per the ulises ent. Please note the above document was generated using voice recognition software. It may contain grammatical, syntax or spelling errors. (2) Pneumonia: Laterality: left Lung location: lower lobe of lung Pneumonia type: due to unspecified organism Qualified Code(s): J18.9 - Pneumonia, unspecified organism (3) SOB (shortness of breath): Subjective Patient seen and examined at bedside. No acute distress, no adverse events overnight. Patient is still complaining of cough bringing up phlegm. Denies any chest pain. Shortness of breath is improved to some extent but still present on minimal exertion. Denies any nausea or vomiting. Good appetite. Review of Systems Review of Systems: All systems reviewed & are unremarkable except as noted in HPI & below Physical Exam Physical Exam: Constitutional: Mild respiratory distress, coughing at the time of examination HEENT: EOMI, PERRLA, mild exophthalmos, conjunctival congestion Respiratory system: Decreased air entry bilaterally, no rhonchi, diffuse expiratory wheeze, positive crackles left lower lobe CVS: S1-S2 positive, no murmurs or gallops, tachycardia Abdomen: Soft, nontender, nondistended, positive bowel sounds x4 Extremities: +2 pulses bilaterally radialis/ dorsalis pedis, no cyanosis, no edema Neuro: Awake alert oriented x3 Psych: Normal mood and affect G/U: No [place] Skin: no rashes, warm and dry Lymphatic: no cervical or axillary lymphadenopathy Results & Data ([facility]) Vital Signs (Past 12 Hours) Vital Signs Temp Pulse Pulse Pulse Resp BP Pulse Ox 04/11/19 15:49 84 30 H 99 04/11/19 15:43 36.8 C 85 20 164/82 H 93 04/11/19 15:38 88 30 H 99 04/11/19 15:28 98 H 04/11/19 11:42 36.8 C 92 H 20 151/82 H 93 04/11/19 11:04 97 H 27 H 100 04/11/19 11:00 97 H 27 H 100 04/11/19 08:00 91 H 04/11/19 07:20 92 H 97 H 22 96 04/11/19 07:06 36.6 C 107 H 22 165/88 H 95 04/10/19 06:10 04/11/19 05:34 PG Care Time/CCT Total # of Minutes Spent Total Time Spent with Patient: Total time spent is greater than 50% in coordination of care (as documented) at patient's floor/unit and/or counseling patient: Coding Level of Care Code 59081 Subseq Hosp Care Lvl 3 Diagnoses COPD exacerbation J44.1 Pneumonia J18.9 Laterality: left Lung location: lower lobe of lung Pneumonia type: due to unspecified organism SOB (shortness of breath) R06.02
[2019-04-11] MEDS ORDERED: AZITHROMYCIN 250 MG TAB PO ONE (16:45)
--- NOTE | 2019-04-11 18:01 | Hospitalist Progress Note ---
Date of Service April 11, 2019 Assessment & Plan (1) Respiratory failure: (2) COPD exacerbation: (3) Pneumonia: Acute on chronic hypoxic respiratory failure, COPD exacerbation secondary to left lower lobe pneumonia -- CXR: Left lower lobe pneumonia --sputum culture: Pending nasal MRSA swab: Positive --Continue vancomycin, cefepime, azithromycin Solu-Medrol tapered to every 12 hours Continue nebs every 4 hours Continue Mucinex Continue usual Anoro and annuity Ellipta Follow-up cultures Monitor closely --Appreciate pulmonary service recommendations Chronic respiratory failure secondary to Asthma/COPD overlap syndrome on home O2 past tobacco abuse --Management per #1 chronic diastolic heart failure as per records (EF 65 to 70%, TTE 2018) --Euvolemic --Hold off on usual Lasix and potassium for now, patient on vancomycin hypertension --Elevated --Resume usual amlodipine --Continue other usual medications DM2 on oral meds, suboptimal control as of recent outpatient hemoglobin A1c of 8.28 January 2019 --On insulin, pharmacy glycemic control consulted in light of Solu-Medrol use chronic anemia --Baseline hemoglobin around 10 Currently 9.6, monitor Disposition Anticipate discharge to home medically stable Admission and Anticipated Discharge Date Admission Date: April 09, 2019 Subjective Follow-up for pneumonia, hypoxic respiratory failure acute on chronic, COPD exacerbation Seen resting in bed, sitting up, not in distress but coughing States she feels a little bit more dyspneic this afternoon Still having productive cough Improved after a few minutes No chest pain Denies other symptoms Review of Systems Review of Systems: All systems reviewed & are unremarkable except as noted in HPI & below Physical Exam Physical Exam: General- oriented x 3, not in distress, speaks in sentences wi th mild effort Head- atraumatic Eyes- PERRL, EOMI, anicteric ENT- oropharynx clear Neck- supple, no JVD, no adenopathy, no thyromegaly; carotids +2/2, no bruits appreciated Lungs-positive diffuse mild wheeze bilaterally, no crackles Heart- normal rate, regular rhythm; no murmur, no gallop, no rub appreciated Abdomen- normal bowel sounds, nondistended, soft, nontender, no masses or hepatosplenomegaly Extremities- no pretibial edema, no calf tenderness; peripheral pulses intact Neuro- alert, oriented x 3; CN 2-12 grossly intact; motor 5/5 bilaterally;sensation 100% on all extremities; no other gross focal neurologic deficits Skin- warm & dry Results & Data ([facility]) Vital Signs (Past 12 Hours) Vital Signs Temp Pulse Pulse Pulse Resp BP Pulse Ox 04/11/19 15:49 84 30 H 99 04/11/19 15:43 36.8 C 85 20 164/82 H 93 04/11/19 15:38 88 30 H 99 04/11/19 15:28 98 H 04/11/19 11:42 36.8 C 92 H 20 151/82 H 93 04/11/19 11:04 97 H 27 H 100 04/11/19 11:00 97 H 27 H 100 04/11/19 08:00 91 H 04/11/19 07:20 92 H 97 H 22 96 04/11/19 07:06 36.6 C 107 H 22 165/88 H 95 Laboratory Results Laboratory Results - last 24 hr 04/10/19 04/10/19 04/10/19 19:01 19:01 19:01 ESR > 90 H ABG pH ABG pCO2 ABG pO2 ABG HCO3 ABG O2 Saturation ABG Base Excess Ziyad Test Barometric Pressure Oxygen Given Creatinine Est Cr Clr Drug Dosing Est GFR ( Amer) Est GFR (Non-Af Amer) POC Glucose Estimat Average Glucose Hemoglobin A1c C-Reactive Protein 11.10 H Vancomycin Trough Mycoplasma pneumon IgM Pending 04/10/19 04/10/19 04/11/19 19:01 20:27 01:57 ESR ABG pH 7.40 ABG pCO2 45 ABG pO2 85 ABG HCO3 27 H ABG O2 Saturation 96.5 H ABG Base Excess 1.5 Ziyad Test POS Barometric Pressure 732.3 Oxygen Given 3 LITERS Creatinine Est Cr Clr Drug Dosing Est GFR ( Amer) Est GFR (Non-Af Amer) POC Glucose 144 H 165 H Estimat Average Glucose Hemoglobin A1c C-Reactive Protein Vancomycin Trough Mycoplasma pneumon IgM 04/11/19 04/11/19 04/11/19 05:34 05:34 05:34 ESR ABG pH ABG pCO2 ABG pO2 ABG HCO3 ABG O2 Saturation ABG Base Excess Ziyad Test Barometric Pressure Oxygen Given Creatinine 0.65 Est Cr Clr Drug Dosing 102.4 Est GFR ( Amer) 108.7 Est GFR (Non-Af Amer) 93.8 POC Glucose Estimat Average Glucose 154 Hemoglobin A1c 7.0 H C-Reactive Protein Vancomycin Trough 9.9 Mycoplasma pneumon IgM 04/11/19 04/11/19 04/11/19 07:05 11:41 16:12 ESR ABG pH ABG pCO2 ABG pO2 ABG HCO3 ABG O2 Saturation ABG Base Excess Ziyad Test Barometric Pressure Oxygen Given Creatinine Est Cr Clr Drug Dosing Est GFR ( Amer) Est GFR (Non-Af Amer) POC Glucose 163 H 99 172 H Estimat Average Glucose Hemoglobin A1c C-Reactive Protein Vancomycin Trough Mycoplasma pneumon IgM (1) Respiratory failure Chronicity: unspecified Respiratory failure complication: unspecified whether with hypoxia or hypercapnia Qualified Code(s): J96.90 - Respiratory failure, unspecified, unspecified whether with hypoxia or hypercapnia (2) Pneumonia Laterality: left Lung location: lower lobe of lung Pneumonia type: due to unspecified organism Qualified Code(s): J18.9 - Pneumonia, unspecified organism
[2019-04-11] MEDS: AMLODIPINE BESYLATE 5 MG TAB PO SCH (18:29)
[2019-04-11] MEDS: LORATADINE 10 MG TAB PO SCH (18:29)
[2019-04-11] MEDS: MAGNESIUM OXIDE 400 MG TAB PO SCH (18:30)
[2019-04-11] MEDS: GABAPENTIN 300 MG CAP PO SCH (20:49)
[2019-04-11] MEDS: MONTELUKAST SODIUM 10 MG TABLET PO SCH (20:50)
[2019-04-11] MEDS: AMITRIPTYLINE HCL 10 MG TAB PO SCH (20:50)
[2019-04-11] MEDS: ENOXAPARIN INJ 40 MG/0.4 ML SYR SQ SCH (20:51)
[2019-04-11] MEDS: HYDROCODONE/HOMATROPINE SYRUP 5MG/1.5MG 5ML UDP PO PRN (20:53)
[2019-04-11] MEDS ORDERED: DOXYCYCLINE HYCLATE 100 MG CAP PO SCH (21:00)
[2019-04-12] MEDS: CEFEPIME 2,000 MG in SYRINGE 7.5 ML IV SCH ×2 (00:23→19:39)
[2019-04-12] MEDS: IPRATROPIUM BROMIDE NEB SOLN 0.02% 2.5 ML VIAL INH SCH ×4 (02:18→19:49)
[2019-04-12] MEDS: LEVALBUTEROL 1.25MG/0.5ML NEB INH SCH ×4 (02:19→19:49)
[2019-04-12] MEDS: VANCOMYCIN HCL 1,500 MG in SODIUM CHLORIDE 0.9% 500 ML IV SCH ×2 (03:40→17:31)
[2019-04-12] MEDS ORDERED: SODIUM CHLORIDE 0.65% NA SOLN 45 ML (OCEAN) PRN (05:34)
[2019-04-12 06:37] LABS: Creatinine Clr Calc Pharmacy 86.8 ml/min; Est GFR (African American) 96.1; Est GFR (Non-African American) 82.9
[2019-04-12] MEDS ORDERED: INSULIN GLARGINE SOLOSTAR 100 UNITS/ML 3 ML PEN SC ONE (08:30)
[2019-04-12] MEDS: PANTOprazole 40 MG TAB PO SCH ×2 (09:03→20:38)
[2019-04-12] MEDS: methylPREDNISolone 40 MG in SYRINGE 0 ML IV SCH ×2 (09:03→20:39)
[2019-04-12] MEDS: DULOXETINE HCL 20 MG CAP PO SCH ×2 (09:04→20:36)
[2019-04-12] MEDS: GABAPENTIN 300 MG CAP PO SCH ×3 (09:04→20:38)
[2019-04-12] MEDS: LORATADINE 10 MG TAB PO SCH (09:04)
[2019-04-12] MEDS: AZITHROMYCIN 250 MG TAB PO SCH (09:04)
[2019-04-12] MEDS: PRAMIPEXOLE DIHYDROCHLO 0.5 MG TAB PO SCH ×4 (09:04→20:37)
[2019-04-12] MEDS: guaiFENesin 600 MG TABCR PO SCH ×2 (09:05→20:37)
[2019-04-12] MEDS: FERROUS SULFATE 325 MG TAB PO SCH (09:05)
[2019-04-12] MEDS: ATORVASTATIN 40 MG TAB PO SCH (09:05)
[2019-04-12] MEDS: FAMOTIDINE 20 MG TAB PO SCH (09:05)
[2019-04-12] MEDS: FLUTICASONE FUROATE 100MCG 14 PUFFS/INHALER INH SCH (09:05)
[2019-04-12] MEDS: UMECLIDINIUM/VILANTEROL 62.5/25MCG 7 PUFFS/INHALER INH SCH (09:06)
[2019-04-12] MEDS ORDERED: IPRATROPIUM BROMIDE NEB SOLN 0.02% 2.5 ML VIAL INH PRN (09:07)
[2019-04-12] MEDS: INSULIN ASPART 100 UNITS/ML 3 ML PEN SC SCH ×4 (09:08→21:45)
--- NOTE | 2019-04-12 09:08 | Pulmonology Progress Note ---
Date of Service April 12, 2019 Assessment & Plan (1) COPD exacerbation: -- Acute on chronic Hypoxic respiratory failure Likely sec to COPD exacerbation continue to lower lobe pneumonia Influenza negative. Procalcitonin 0.05, follow-up ESR greater than 90, CRP: 11.1, follow-up mycoplasma IgM, f/u sputum culture. Continue with inhaled bronchodilators, steroids, antibiotics with atypical coverage with azithromycin Maintain SPO2 between 88 to 92% BiPAP nightly and as needed shortness of breath Chest x-ray 04/09/2019 personally reviewed: Supportable film good inspiratory effort, hyperinflated film with flattened diaphragm, there is left lower lobe opacities appreciated retrocardiac. CT chest 05/07/2017 personally reviewed: Patient has severe emphysema --COPD with severe emphysema on 3L home O2 Patient is on optimal therapy at home which is LABA/LAMA/ICS inhaler --Morbid obesity with probable ARYAN Continue with BiPAP nightly and PRN shortness of breath Patient supposed to get a polysomnography done within a month as per the patient. Please note the above document was generated using voice recognition software. It may contain grammatical, syntax or spelling errors. (2) Pneumonia: Laterality: left Lung location: lower lobe of lung Pneumonia type: due to unspecified organism Qualified Code(s): J18.9 - Pneumonia, unspecified organism (3) SOB (shortness of breath): Subjective Patient seen and examined at bedside. No acute distress, no adverse events overnight. Shortness of breath is improved. Cough is decreased in intensity. Still complains of exertional shortness of breath. Denies any chest pain, no headache, no nausea, no vomiting. Good appetite Review of Systems Review of Systems: All systems reviewed & are unremarkable except as noted in HPI & below Physical Exam Physical Exam: Constitutional: No acute distress HEENT: EOMI, PERRLA, mild exophthalmos, conjunctival congestion Respiratory system: Decreased air entry bilaterally, no rhonchi, minimal wheeze bilaterally, positive crackles left lower lobe CVS: S1-S2 positive, no murmurs or gallops, tachycardia Abdomen: Soft, nontender, nondistended, positive bowel sounds x4 Extremities: +2 pulses bilaterally radialis/ dorsalis pedis, no cyanosis, no edema Neuro: Awake alert oriented x3 Psych: Normal mood and affect G/U: No [place] Patient saturating 98% on 3 L nasal cannula at rest, went down to 2 L nasal cannula. Skin: no rashes, warm and dry Lymphatic: no cervical or axillary lymphadenopathy Results & Data ([facility]) Vital Signs (Past 12 Hours) Vital Signs Temp Pulse Pulse Pulse Resp BP Pulse Ox 04/12/19 07:03 107 H 18 96 04/12/19 06:39 36.5 C 79 24 165/98 H 92 04/12/19 05:14 36.9 C 113 H 23 184/102 H 97 04/12/19 02:19 77 16 98 04/12/19 00:27 36.1 C L 86 18 161/85 H 98 04/11/19 22:49 104 H 24 98 04/11/19 22:48 104 H 24 98 04/10/19 06:10 04/12/19 05:45 PG Care Time/CCT Total # of Minutes Spent Total Time Spent with Patient: Total time spent is greater than 50% in coordination of care (as documented) at patient's floor/unit and/or counseling patient: Coding Level of Care Code 17683 Subseq Hosp Care Lvl 3 Diagnoses COPD exacerbation J44.1 Pneumonia J18.9 Laterality: left Lung location: lower lobe of lung Pneumonia type: due to unspecified organism SOB (shortness of breath) R06.02
[2019-04-12] MEDS: AMLODIPINE BESYLATE 5 MG TAB PO SCH (09:09)
[2019-04-12] MEDS ORDERED: CEFEPIME 2,000 MG in SYRINGE 7.5 ML IV STA (10:53)
[2019-04-12] MEDS ORDERED: CEFEPIME CONSULT ACTIVE PRN (11:03)
[2019-04-12] MEDS: MAGNESIUM OXIDE 400 MG TAB PO SCH (12:06)
--- NOTE | 2019-04-12 13:02 | Pharmacy Report ---
Pharmacy Glycemic Short Note 2 - Date of Service April 12, 2019 - Glycemic Short BSG Results (Last 24 hours): 04/11/19 04/11/19 04/12/19 16:12 19:57 07:15 POC Glucose 172 H 136 H 200 H 04/12/19 11:37 POC Glucose 88 Outpatient Anti-diabetic Regimen: * Metformin * Glimepiride * A1c = 7.0% on 04/11/19 Risk Factors for Insulin Resistance: * Steroids: Methylprednisolone tapered to 40 mg IV q12h 04/11 PM * Infection: COPD exacerbation, possible PNA * Diet: T2DM ASSESSMENT: * 63 yo F with T2DM with good outpatient control on two oral agents admitted with respiratory failure 2nd COPD exacerbation +/- HAP * Initial regimen based on review of glycemic control and stressors from February 2019 admission * AM BSG above goal, but this was obtained post-prandially per RN therefore was not fasting. Will not increase Lantus. * BSG below 100 mg/dL at lunch - will loosen Novolog parameters PLAN FOR INPATIENT GLYCEMIC CONTROL: * Holding outpatient oral diabetes medications * Basal insulin * Lantus 25 units SQ x1 * Bolus insulin * NovoLog per scale ACHS or Q6hrs while NPO * Goal Range: Low 110 mg/dL - High 150 mg/dL * Correction Factor: 30 mg/dL/unit * Nutritional / Prandial insulin per carb ratio of 1 unit per 10 grams CHO consumed
[2019-04-12] MEDS ORDERED: VANCOMYCIN TROUGH ONE (15:30)
--- NOTE | 2019-04-12 16:38 | Pharmacy Report ---
Pharmacy Abx Dose Short Note - Date of Service April 12, 2019 - Assessment & Plan A/P Vanco trough prior to Css reasonable, 11.7mcg/mL. Given her habitus I worry about vancomycin accumulation. Ergo, will not increase dose or decrease dosing frequency. Will order a trough for 04/14 @0330, this will be reflective of Css. Pharmacy will continue to follow and will adjust dose/frequency as necessary. Thank you.
--- NOTE | 2019-04-12 18:05 | Hospitalist Progress Note ---
Date of Service April 12, 2019 Assessment & Plan (1) Respiratory failure: (2) COPD exacerbation: (3) Pneumonia: Acute on chronic hypoxic respiratory failure, COPD exacerbation secondary to left lower lobe pneumonia -- CXR: Left lower lobe pneumonia --sputum culture: negative blood culture: negative nasal MRSA swab: Positive -- gradually improving --Continue vancomycin, cefepime, azithromycin Solu-Medrol tapered to every 12 hours Continue nebs every 4 hours Continue Mucinex Continue usual Anoro and annuity Ellipta --Appreciate pulmonary service recommendations Chronic respiratory failure secondary to Asthma/COPD overlap syndrome on home O2 past tobacco abuse --Management per #1 chronic diastolic heart failure as per records (EF 65 to 70%, TTE 2018) --Euvolemic --Hold off on usual Lasix and potassium for now, patient on vancomycin hypertension --Elevated --increase usual Amlodipine to 10mg daily --Continue other usual medications DM2 on oral meds, suboptimal control as of recent outpatient hemoglobin A1c of 8.28 January 2019 --On insulin, pharmacy glycemic control consulted in light of Solu-Medrol use chronic anemia --Baseline hemoglobin around 10 Currently 9.6, monitor Disposition Anticipate discharge to home medically stable Admission and Anticipated Discharge Date Admission Date: April 09, 2019 Subjective ff up for pneumonia, copd exacerbation seen resting in bed, sitting up on nasal cannula states she feels improved compared to yesterday less cough, sputum no other symptoms Review of Systems Review of Systems: All systems reviewed & are unremarkable except as noted in HPI & below Physical Exam Physical Exam: General- oriented x 3, not in distress, speaks in sentences with mild effort , no accessory muscle use Eyes- anicteric Neck- no JVD Lungs- (+) diffuse mild wheeze BL, no crackles Heart- normal rate, regular rhythm; no murmurs Abdomen- normal bowel sounds, nondistended, soft, nontender Extremities- trace pretibial edema, no calf tenderness Neuro- alert, oriented x 3; no gross focal neurologic deficits Skin- warm & dry Results & Data ([facility]) Vital Signs (Past 12 Hours) Vital Signs Temp Pulse Pulse Resp BP Pulse Ox 04/12/19 15:57 36.9 C 104 H 20 170/104 H 97 04/12/19 13:16 99 H 22 93 04/12/19 07:03 107 H 18 96 04/12/19 06:39 36.5 C 79 24 165/98 H 92 Laboratory Results Laboratory Results - last 24 hr 04/12/19 04/12/19 04/12/19 05:45 07:15 11:37 Creatinine 0.76 Est Cr Clr Drug Dosing 86.8 Est GFR ( Amer) 96.1 Est GFR (Non-Af Amer) 82.9 POC Glucose 200 H 88 Vancomycin Trough 04/12/19 04/12/19 04/12/19 15:37 16:02 19:48 Creatinine Est Cr Clr Drug Dosing Est GFR ( Amer) Est GFR (Non-Af Amer) POC Glucose 272 H 106 H Vancomycin Trough 11.7 (1) Respiratory failure Chronicity: unspecified Respiratory failure complication: unspecified whether with hypoxia or hypercapnia Qualified Code(s): J96.90 - Respiratory failure, unspecified, unspecified whether with hypoxia or hypercapnia (2) Pneumonia Laterality: left Lung location: lower lobe of lung Pneumonia type: due to unspecified organism Qualified Code(s): J18.9 - Pneumonia, unspecified organism
[2019-04-12] MEDS ORDERED: AMLODIPINE BESYLATE 5 MG TAB PO ONE (19:30)
[2019-04-12] MEDS: ENOXAPARIN INJ 40 MG/0.4 ML SYR SQ SCH (20:36)
[2019-04-12] MEDS: AMITRIPTYLINE HCL 10 MG TAB PO SCH (20:36)
[2019-04-12] MEDS: MONTELUKAST SODIUM 10 MG TABLET PO SCH (20:38)
[2019-04-13] MEDS: HYDROCODONE/HOMATROPINE SYRUP 5MG/1.5MG 5ML UDP PO PRN (00:50)
[2019-04-13] MEDS: LEVALBUTEROL 1.25MG/0.5ML NEB INH SCH ×4 (01:01→19:07)
[2019-04-13] MEDS: IPRATROPIUM BROMIDE NEB SOLN 0.02% 2.5 ML VIAL INH SCH ×4 (01:01→19:07)
[2019-04-13] MEDS: CEFEPIME 2,000 MG in SYRINGE 7.5 ML IV SCH ×3 (02:59→20:44)
--- NOTE | 2019-04-13 03:14 | Communication Note ---
Date of Service: April 13, 2019 Made aware by RN of uncontrolled blood pressure. SBP 150-180s the last 36 hours. Patient having trouble sleeping and with reflux symptoms as per RN. AP Uncontrolled hypertension Add lisinopril to Norvasc. Will relay to AM provider.
[2019-04-13] MEDS: VANCOMYCIN HCL 1,500 MG in SODIUM CHLORIDE 0.9% 500 ML IV SCH (05:07)
[2019-04-13] MEDS ORDERED: LORATADINE 10 MG TAB PO ONE (05:18)
--- NOTE | 2019-04-13 05:18 | Communication Note ---
Date of Service: April 13, 2019 Made aware by RN of patient pruritus over IV site complaints after second dose of IV vancomycin. AP ? Vancomycin hypersensitivity COPD exacerbation secondary to pneumonia hx positive MRSA nasal swab Loratadine 1 dose now IV Zyvox in place of Vancomycin for now Hold Cymbalta and Amitriptyline while on IV Zyvox due to potential serotonin syndrome with med combo as per pharmacy precautions. Will relay to AM provider.
[2019-04-13] MEDS ORDERED: LINEZOLID CONSULT ACTIVE PRN (05:26)
[2019-04-13] MEDS ORDERED: LINEZOLID 600 MG/300 ML BAG IV SCH (06:00)
[2019-04-13] MEDS: PANTOprazole 40 MG TAB PO SCH ×2 (08:15→20:47)
[2019-04-13] MEDS: ATORVASTATIN 40 MG TAB PO SCH (08:16)
[2019-04-13] MEDS: AMLODIPINE BESYLATE 5 MG TAB PO SCH (08:16)
[2019-04-13] MEDS: FAMOTIDINE 20 MG TAB PO SCH (08:16)
[2019-04-13] MEDS: AZITHROMYCIN 250 MG TAB PO SCH (08:17)
[2019-04-13] MEDS: methylPREDNISolone 40 MG in SYRINGE 0 ML IV SCH (08:17)
[2019-04-13] MEDS: GABAPENTIN 300 MG CAP PO SCH ×3 (08:17→20:48)
[2019-04-13] MEDS: guaiFENesin 600 MG TABCR PO SCH ×2 (08:17→20:49)
[2019-04-13] MEDS: LORATADINE 10 MG TAB PO SCH (08:18)
[2019-04-13] MEDS: FERROUS SULFATE 325 MG TAB PO SCH (08:18)
[2019-04-13] MEDS: FLUTICASONE FUROATE 100MCG 14 PUFFS/INHALER INH SCH (08:18)
[2019-04-13] MEDS: PRAMIPEXOLE DIHYDROCHLO 0.5 MG TAB PO SCH ×4 (08:18→20:48)
[2019-04-13] MEDS: UMECLIDINIUM/VILANTEROL 62.5/25MCG 7 PUFFS/INHALER INH SCH (08:19)
[2019-04-13] MEDS: INSULIN ASPART 100 UNITS/ML 3 ML PEN SC SCH ×4 (08:20→20:52)
[2019-04-13] MEDS ORDERED: INSULIN GLARGINE SOLOSTAR 100 UNITS/ML 3 ML PEN SC SCH (09:00)
--- NOTE | 2019-04-13 09:05 | Pulmonology Progress Note ---
Date of Service April 13, 2019 Assessment & Plan (1) COPD exacerbation: -- Acute on chronic Hypoxic respiratory failure Likely sec to COPD exacerbation continue to lower lobe pneumonia Influenza negative. Procalcitonin 0.05, follow-up ESR greater than 90, CRP: 11.1, follow-up mycoplasma IgM, f/u sputum culture : Moderate normal eric Continue with inhaled bronchodilators, antibiotics with atypical coverage with azithromycin. Start tapering steroids as of tomorrow 40 mg for 3 days followed by 20 mg for 2 days. Maintain SPO2 between 88 to 92% BiPAP nightly and as needed shortness of breath Chest x-ray 04/09/2019 personally reviewed: Supportable film good inspiratory effort, hyperinflated film with flattened diaphragm, there is left lower lobe opacities appreciated retrocardiac. CT chest 05/07/2017 personally reviewed: Patient has severe emphysema --COPD with severe emphysema on 3L home O2 Patient is on optimal therapy at home which is LABA/LAMA/ICS inhaler --Morbid obesity with probable ARYAN Continue with BiPAP nightly and PRN shortness of breath Patient supposed to get a polysomnography done within a month as per the patient. Plan: Start tapering steroids as of tomorrow. Recommend de-escalating antibiotics. Follow-up chest x-ray from today. Please note the above document was generated using voice recognition software. It may contain grammatical, syntax or spelling errors. (2) Pneumonia: Laterality: left Lung location: lower lobe of lung Pneumonia type: due to unspecified organism Qualified Code(s): J18.9 - Pneumonia, unspecified organism (3) SOB (shortness of breath): Subjective Patient seen and examined at bedside. No acute distress, no adverse events overnight. Patient is feeling better. Cough is decreased in intensity. Still bringing up some phlegm. States that she was not able to sleep well last night. Denies any nausea or vomiting. Good appetite. Review of Systems Review of Systems: All systems reviewed & are unremarkable except as noted in HPI & below Physical Exam Physical Exam: Constitutional: No acute distress HEENT: EOMI, PERRLA, mild exophthalmos Respiratory system: Decreased air entry bilaterally, no rhonchi, minimal wheeze only anteriorly bilaterally, positive crackles left lower lobe CVS: S1-S2 positive, no murmurs or gallops, tachycardia Abdomen: Soft, nontender, nondistended, positive bowel sounds x4 Extremities: +2 pulses bilaterally radialis/ dorsalis pedis, no cyanosis, no edema Neuro: Awake alert oriented x3 Psych: Normal mood and affect G/U: No [place] Skin: no rashes, warm and dry Lymphatic: no cervical or axillary lymphadenopathy Results & Data ([facility]) Vital Signs (Past 12 Hours) Vital Signs Temp Pulse Pulse Resp BP Pulse Ox 04/13/19 08:06 36.8 C 83 22 156/94 H 97 04/13/19 07:11 89 18 99 04/13/19 05:10 163/59 H 04/13/19 02:57 36.4 C L 86 18 158/112 H 100 04/13/19 01:02 94 H 94 H 16 97 04/12/19 23:28 36.4 C L 85 24 154/109 H 95 04/12/19 22:37 104 H 24 93 04/10/19 06:10 04/12/19 05:45 PG Care Time/CCT Total # of Minutes Spent Total Time Spent with Patient: Total time spent is greater than 50% in coordination of care (as documented) at patient's floor/unit and/or counseling patient: Coding Level of Care Code 79259 Subseq Hosp Care Lvl 3 Diagnoses COPD exacerbation J44.1 Pneumonia J18.9 Laterality: left Lung location: lower lobe of lung Pneumonia type: due to unspecified organism SOB (shortness of breath) R06.02
[2019-04-13] MEDS ORDERED: ZOLPIDEM TARTRATE 5 MG TAB PO PRN (09:10)
--- NOTE | 2019-04-13 09:48 | Pharmacy Report ---
Pharmacy Glycemic Short Note 2 - Date of Service April 13, 2019 - Glycemic Short BSG Results (Last 24 hours): 04/12/19 04/12/19 04/12/19 11:37 16:02 19:48 POC Glucose 88 272 H 106 H 04/13/19 07:18 POC Glucose 240 H Outpatient Anti-diabetic Regimen: * Metformin 1 gram PO BID * Glimepiride 2mg QAM * A1c = 7.0% on 04/11/19 Risk Factors for Insulin Resistance: * Steroids: [id number] IV - last dose at 0900, starting Prednisone 40mg PO daily tomorrow morning * Infection: COPD exacerbation, possible PNA * Diet: T2DM ASSESSMENT: 04/13/19 * Blood sugars fluctuating throughout the day d/t steroids, patient received last dose of IV Solu-medrol this morning, changing to Prednisone 40mg PO daily x 3 days tomorrow, then 20mg x 3 days per pulmonology. * Continue Lantus QAM for steroid coverage * Continue CF/CR at this time until blood sugars trend down, then loosen 04/12/19 * 63 yo F with T2DM with good outpatient control on two oral agents admitted with respiratory failure 2nd COPD exacerbation +/- HAP * Initial regimen based on review of glycemic control and stressors from February 2019 admission * AM BSG above goal, but this was obtained post-prandially per RN therefore was not fasting. Will not increase Lantus. * BSG below 100 mg/dL at lunch - will loosen Novolog parameters PLAN FOR INPATIENT GLYCEMIC CONTROL: * Holding outpatient oral diabetes medications * Basal insulin * Lantus 25 units SQ daily * Bolus insulin * NovoLog per scale ACHS or Q6hrs while NPO * Goal Range: Low 110 mg/dL - High 150 mg/dL * Correction Factor: 30 mg/dL/unit * Nutritional / Prandial insulin per carb ratio of 1 unit per 10 grams CHO consumed
--- NOTE | 2019-04-13 10:20 | XRay Report ---
XR chest 1V portable CLINICAL HISTORY: Abnormal chest x-ray SHORTNESS OF BREATH COMPARISON STUDY: 04/09/2019 FINDINGS: The cardiac and mediastinal contours remain stable. There are resolving left basilar airspa ce opacities. The right lung appears clear. Upper lobe emphysema is suspected.[ IMPRESSION: 1. Pulmonary emphysema 2. Resolving left basilar airspace opacities ACT 112: Negative or not required by law. Electronically signed by: Byron Sauceda M.D. 04/13/2019 10:18 AM
[2019-04-13] MEDS: MAGNESIUM OXIDE 400 MG TAB PO SCH (12:11)
--- NOTE | 2019-04-13 17:17 | Hospitalist Progress Note ---
Date of Service April 13, 2019 Assessment & Plan (1) Respiratory failure: (2) COPD exacerbation: (3) Pneumonia: Acute on chronic hypoxic respiratory failure, COPD exacerbation secondary to left lower lobe pneumonia -- CXR: Left lower lobe pneumonia --sputum culture: negative blood culture: negative nasal MRSA swab: Positive --Patient overall improved today --Transition from vancomycin, cefepime, azithromycin to cefepime plus doxycycline Solu-Medrol tapered, transition to prednisone 40 mg daily Continue nebs every 4 hours Continue Mucinex Continue usual Anoro and annuity Ellipta --Appreciate pulmonary service recommendations Chronic respiratory failure secondary to Asthma/COPD overlap syndrome on home O2 past tobacco abuse --Management per #1 chronic diastolic heart failure as per records (EF 65 to 70%, TTE 2018) --Euvolemic --Hold off on usual Lasix and potassium for now, patient last dose of vancomycin yesterday Hypertension --Elevated --increased usual Amlodipine to 10mg daily Added lisinopril 5 mg p.o. daily --Continue to monitor DM2 on oral meds, suboptimal control as of recent outpatient hemoglobin A1c of 8.28 January 2019 --On insulin, pharmacy glycemic control consulted in light of Solu-Medrol use chronic anemia --Baseline hemoglobin around 10 Currently 9.6, monitor Disposition Anticipate discharge to home with home health services when medically stable Admission and Anticipated Discharge Date Admission Date: April 09, 2019 Subjective Follow-up for pneumonia, COPD exacerbation Seen resting in bed, sitting up at edge of the bed, BiPAP mask in place More comfortable than yesterday States she feels improved today compared to yesterday No shortness of breath, less coughing, no sputum No chest pain Denies other symptoms Review of Systems Review of Systems: All systems reviewed & are unremarkable except as noted in HPI & below Physical Exam Physical Exam: General- oriented x 3, not in distress, speaks in sentences with no effort or accessory muscle use Eyes- anicteric Neck- no JVD Lungs-faint wheeze scattered bilaterally, no crackles Good air entry bilaterally Heart- normal rate, regular rhythm; no murmurs Abdomen- normal bowel sounds, nondistended, soft, nontender Extremities-trace base pretibial edema, no calf tenderness Neuro- alert, oriented x 3; no gross focal neurologic deficits Skin- warm & dry Results & Data ([facility]) Vital Signs (Past 12 Hours) Vital Signs Temp Pulse Pulse Resp BP Pulse Ox 04/13/19 16:02 36.8 C 83 20 165/89 H 94 04/13/19 13:44 97 H 18 98 04/13/19 11:05 36.6 C 97 H 20 158/91 H 97 04/13/19 08:06 36.8 C 83 22 156/94 H 97 04/13/19 07:11 89 18 99 Laboratory Results Laboratory Results - last 24 hr 04/12/19 04/13/19 04/13/19 19:48 07:18 11:08 POC Glucose 106 H 240 H 125 H 04/13/19 16:09 POC Glucose 152 H (1) Respiratory failure Chronicity: unspecified Respiratory failure complication: unspecified whether with hypoxia or hypercapnia Qualified Code(s): J96.90 - Respiratory failure, unspecified, unspecified whether with hypoxia or hypercapnia (2) Pneumonia Laterality: left Lung location: lower lobe of lung Pneumonia type: due to unspecified organism Qualified Code(s): J18.9 - Pneumonia, unspecified organism
[2019-04-13] MEDS ORDERED: lisinopriL 5 MG TAB PO STA (17:22)
[2019-04-13 18:38] LABS: BUN Creatinine Ratio 22.4 (10-20); Creatinine Clr Calc Pharmacy 78.9 ml/min; Est GFR (African American) 82.7; Est GFR (Non-African American) 71.4; Potassium 4.4 mmol/L (3.5-5.1)
[2019-04-13] MEDS: ASCORBIC ACID 500 MG TAB PO SCH (20:44)
[2019-04-13] MEDS: ENOXAPARIN INJ 40 MG/0.4 ML SYR SQ SCH (20:45)
[2019-04-13] MEDS: MONTELUKAST SODIUM 10 MG TABLET PO SCH (20:49)
[2019-04-14] MEDS: LEVALBUTEROL 1.25MG/0.5ML NEB INH SCH ×4 (01:39→19:24)
[2019-04-14] MEDS: IPRATROPIUM BROMIDE NEB SOLN 0.02% 2.5 ML VIAL INH SCH ×4 (01:39→19:24)
[2019-04-14] MEDS: CEFEPIME 2,000 MG in SYRINGE 7.5 ML IV SCH ×2 (03:17→12:31)
[2019-04-14] MEDS ORDERED: VANCOMYCIN TROUGH ONE (03:30)
[2019-04-14 06:22] LABS: Basophils # (auto) 0.01 K/uL (0-0.2); Basophils % (auto) 0.2 %; Eosinophils # (auto) 0.01 K/uL (0-0.5); Eosinophils % (auto) 0.2 %; Hematocrit (blood only) 36.2 % (37-47); Hemoglobin 10.7 g/dL (12.0-16.0); Immature Granulocytes # (auto) 0.09 K/uL (0.00-0.02); Immature Granulocytes % (auto) 1.6 %; Lymphocytes # (auto) 1.43 K/uL (1.2-3.4); Lymphocytes % (auto) 25.5 %; Mean Corpuscular Hemoglobin 25.9 pg (25-34); Mean Corpuscular Hgb Conc 29.6 g/dL (32-36); Mean Corpuscular Volume 87.7 fL (80-100); Mean Platelet Volume 9.4 fL (7.4-10.4); Monocytes # (auto) 0.85 K/uL (0.11-0.59); Monocytes % (auto) 15.2 %; Neutrophils # (auto) 3.21 K/uL (1.4-6.5); Neutrophils % (auto) 57.3 %; Nucleated RBC # (auto) 0.03 K/uL (0-0); Nucleated RBC % (auto) 0.6 %; Platelet Count 358 K/uL (130-400); RDW Coefficient of Variation 16.6 % (11.5-14.5); RDW Standard Deviation 53.2 fL (36.4-46.3); Red Blood Count 4.13 M/uL (4.2-5.4)
[2019-04-14 07:02] LABS: BUN Creatinine Ratio 27.4 (10-20); Calcium 9.4 mg/dl (8.5-10.1); Est GFR (African American) 91.7; Est GFR (Non-African American) 79.1; Potassium 3.7 mmol/L (3.5-5.1)
[2019-04-14] MEDS ORDERED: SODIUM CHLORIDE 0.65% NA SOLN 45 ML (OCEAN) ONE (08:50)
[2019-04-14] MEDS ORDERED: INSULIN GLARGINE SOLOSTAR 100 UNITS/ML 3 ML PEN SC SCH (09:00)
[2019-04-14] MEDS: guaiFENesin 600 MG TABCR PO SCH ×2 (09:57→20:27)
[2019-04-14] MEDS: ASCORBIC ACID 500 MG TAB PO SCH ×2 (09:58→20:26)
[2019-04-14] MEDS: PRAMIPEXOLE DIHYDROCHLO 0.5 MG TAB PO SCH ×4 (09:58→20:24)
[2019-04-14] MEDS: LACTOBACILLUS ACIDOPHILUS (FLORANEX) TAB PO SCH ×3 (09:58→16:58)
[2019-04-14] MEDS: GABAPENTIN 300 MG CAP PO SCH ×3 (09:58→20:27)
[2019-04-14] MEDS: DOXYCYCLINE HYCLATE 100 MG CAP PO SCH ×2 (09:59→20:25)
[2019-04-14] MEDS: AMLODIPINE BESYLATE 5 MG TAB PO SCH (09:59)
[2019-04-14] MEDS: ATORVASTATIN 40 MG TAB PO SCH (09:59)
[2019-04-14] MEDS: FERROUS SULFATE 325 MG TAB PO SCH (09:59)
[2019-04-14] MEDS: PANTOprazole 40 MG TAB PO SCH ×2 (09:59→20:26)
[2019-04-14] MEDS: FAMOTIDINE 20 MG TAB PO SCH (10:00)
[2019-04-14] MEDS: FLUTICASONE FUROATE 100MCG 14 PUFFS/INHALER INH SCH (10:00)
[2019-04-14] MEDS: predniSONE 20 MG TAB PO SCH (10:00)
[2019-04-14] MEDS: LORATADINE 10 MG TAB PO SCH (10:00)
[2019-04-14] MEDS: UMECLIDINIUM/VILANTEROL 62.5/25MCG 7 PUFFS/INHALER INH SCH (10:01)
[2019-04-14] MEDS: INSULIN ASPART 100 UNITS/ML 3 ML PEN SC SCH ×4 (10:04→21:46)
[2019-04-14] MEDS: lisinopriL 5 MG TAB PO SCH (10:09)
--- NOTE | 2019-04-14 11:15 | Pulmonology Progress Note ---
Date of Service April 14, 2019 Assessment & Plan (1) COPD exacerbation: -- Acute on chronic Hypoxic respiratory failure Likely sec to COPD exacerbation continue to lower lobe pneumonia Influenza negative. Procalcitonin 0.05, follow-up ESR greater than 90, CRP: 11.1, f/u sputum culture : Moderate normal eric Continue with inhaled bronchodilators, antibiotics with atypical coverage Maintain SPO2 between 88 to 92% BiPAP nightly and as needed shortness of breath --COPD with severe emphysema on 3L home O2 Patient is on optimal therapy at home which is LABA/LAMA/ICS inhaler Continue with it on discharge --Morbid obesity with probable ARYAN Continue with BiPAP nightly and PRN shortness of breath Patient supposed to get a polysomnography done within a month as per the patient. Plan: De-escalate antibiotics. Can give doxycycline for 2 more days. Taper down steroids. Chest x-ray from 04/13/2019 personally reviewed. There is improvement in left lower lobe infiltrate. No further recommendations from pulmonary perspective. Will sign off. Recall if needed. Please note the above document was generated using voice recognition software. It may contain grammatical, syntax or spelling errors. (2) Pneumonia: Laterality: left Lung location: lower lobe of lung Pneumonia type: due to unspecified organism Qualified Code(s): J18.9 - Pneumonia, unspecified organism (3) SOB (shortness of breath): Subjective Patient seen and examined at bedside. No acute distress, no adverse events overnight. Patient is feeling better. Shortness of breath is improved. Cough is decreased in intensity. Denies any chest pain, no headache, no nausea, no vomiting. Good appetite. Review of Systems Review of Systems: All systems reviewed & are unremarkable except as noted in HPI & below Physical Exam Physical Exam: Constitutional: No acute distress HEENT: EOMI, PERRLA, mild exophthalmos Respiratory system: Decreased air entry bilaterally, no rhonchi, no wheeze, no crackles CVS: S1-S2 positive, no murmurs or gallops, tachycardia Abdomen: Soft, nontender, nondistended, positive bowel sounds x4 Extremities: +2 pulses bilaterally radialis/ dorsalis pedis, no cyanosis, no edema Neuro: Awake alert oriented x3 Psych: Normal mood and affect G/U: No [place] Skin: no rashes, warm and dry Lymphatic: no cervical or axillary lymphadenopathy Results & Data ([facility]) Vital Signs (Past 12 Hours) Vital Signs Temp Pulse Pulse Pulse Resp BP Pulse Ox 04/14/19 07:18 36.9 C 85 22 138/74 100 04/14/19 07:06 65 18 98 04/14/19 03:19 36.4 C L 93 H 22 177/87 H 99 04/14/19 01:40 82 18 95 04/13/19 23:33 36.5 C 89 24 140/89 100 04/13/19 23:25 88 19 99 04/14/19 06:04 04/14/19 06:04 PG Care Time/CCT Total # of Minutes Spent Total Time Spent with Patient: Total time spent is greater than 50% in coordination of care (as documented) at patient's floor/unit and/or counseling patient: Coding Level of Care Code 71865 Subseq Hosp Care Lvl 3 Diagnoses COPD exacerbation J44.1 Pneumonia J18.9 Laterality: left Lung location: lower lobe of lung Pneumonia type: due to unspecified organism SOB (shortness of breath) R06.02
--- NOTE | 2019-04-14 11:23 | Pharmacy Report ---
Pharmacy Glycemic Short Note 2 - Date of Service April 14, 2019 - Glycemic Short BSG Results (Last 24 hours): 04/13/19 04/13/19 04/13/19 16:09 18:00 20:45 Glucose 185 H POC Glucose 152 H 250 H 04/14/19 04/14/19 06:04 07:13 Glucose 78 POC Glucose 70 Outpatient Anti-diabetic Regimen: * Metformin 1 gram PO BID * Glimepiride 2mg QAM * A1c = 7.0% on 04/11/19 Risk Factors for Insulin Resistance: * Steroids: Prednisone 40mg PO * Infection: COPD exacerbation, possible PNA * Diet: T2DM ASSESSMENT: 04/14/19 * Fasting blood sugar 78mg/dl - decrease basal * Patient on Prednisone 40mg PO daily, will tighten CR with breakfast today * Pulmonology signing off on patient, de-escalating antibiotics 04/13/19 * Blood sugars fluctuating throughout the day d/t steroids, patient received last dose of IV Solu-medrol this morning, changing to Prednisone 40mg PO daily x 3 days tomorrow, then 20mg x 3 days per pulmonology. * Continue Lantus QAM for steroid coverage * Continue CF/CR at this time until blood sugars trend down, then loosen 04/12/19 * 63 yo F with T2DM with good outpatient control on two oral agents admitted with respiratory failure 2nd COPD exacerbation +/- HAP * Initial regimen based on review of glycemic control and stressors from February 2019 admission * AM BSG above goal, but this was obtained post-prandially per RN therefore was not fasting. Will not increase Lantus. * BSG below 100 mg/dL at lunch - will loosen Novolog parameters PLAN FOR INPATIENT GLYCEMIC CONTROL: * Holding outpatient oral diabetes medications * Basal insulin -decrease * Lantus 20 units SQ daily * Bolus insulin * NovoLog per scale ACHS or Q6hrs while NPO * Goal Range: Low 110 mg/dL - High 150 mg/dL * Correction Factor: 30 mg/dL/unit * tighten: Nutritional / Prandial insulin per carb ratio of 1 unit per 7 grams CHO consumed
[2019-04-14] MEDS: MAGNESIUM OXIDE 400 MG TAB PO SCH (12:32)
--- NOTE | 2019-04-14 17:04 | Hospitalist Progress Note ---
Date of Service April 14, 2019 Assessment & Plan (1) Respiratory failure: (2) COPD exacerbation: (3) Pneumonia: Acute on chronic hypoxic respiratory failure, COPD exacerbation secondary to left lower lobe pneumonia -- CXR: Left lower lobe pneumonia --sputum culture: negative blood culture: negative nasal MRSA swab: Positive --Patient continues to improve --Transition from vancomycin, cefepime, azithromycin to cefepime plus doxycycline--> doxycycline x 2 days Solu-Medrol tapered, transition to prednisone 40 mg daily, then taper Continue nebs every 6 hours Continue Mucinex Continue usual Anoro and annuity Ellipta --Appreciate pulmonary service recommendations Chronic respiratory failure secondary to Asthma/COPD overlap syndrome on home O2 past tobacco abuse --Management per #1 chronic diastolic heart failure as per records (EF 65 to 70%, TTE 2018) --Euvolemic --Hold off on usual Lasix and potassium for now, resume tomorrow Hypertension --Elevated --increased usual Amlodipine to 10mg daily Added lisinopril 5 mg p.o. daily -- improving DM2 on oral meds, suboptimal control as of recent outpatient hemoglobin A1c of 8.28 January 2019 --On insulin, pharmacy glycemic control consulted in light of Solu-Medrol use chronic anemia --Baseline hemoglobin around 10 Currently 10.7, monitor Disposition Anticipate discharge to home with home health services when medically stable Admission and Anticipated Discharge Date Admission Date: April 09, 2019 Subjective ff up for pneumonia, COPD seen resting in bed, comfortable on 3L NC had 2 drops of blood from L nostril overnight resolved states she feels improved again overall no dyspnea, less cough no chest pain denies other symptoms Review of Systems Review of Systems: All systems reviewed & are unremarkable except as noted in HPI & below Physical Exam Physical Exam: General- oriented x 3, not in distress, speaks in sentences with no effort or accessory muscle use Eyes- anicteric Neck- no JVD Lungs- faint wheeze bilaterally, no crackles Heart- normal rate, regular rhythm; no murmurs Abdomen- normal bowel sounds, nondistended, soft, nontender Extremities- mild pretibial edema, no calf tenderness Neuro- alert, oriented x 3; no gross focal neurologic deficits Skin- warm & dry Results & Data ([facility]) Vital Signs (Past 12 Hours) Vital Signs Temp Pulse Pulse Resp BP BP Pulse Ox 04/14/19 16:00 36.6 C 109 H 20 127/95 100 04/14/19 13:49 115 H 112 H 25 H 96 04/14/19 11:32 36.3 C L 90 20 154/104 H 92 04/14/19 07:18 36.9 C 85 22 138/74 100 04/14/19 07:06 65 18 98 Laboratory Results Laboratory Results - last 24 hr 04/13/19 04/13/19 04/14/19 18:00 20:45 06:04 WBC 5.60 RBC 4.13 L Hgb 10.7 L Hct 36.2 L MCV 87.7 MCH 25.9 MCHC 29.6 L RDW Std Deviation 53.2 H RDW Coeff of Angelo 16.6 H Plt Count 358 MPV 9.4 Immature Gran % (Auto) 1.6 Neut % (Auto) 57.3 Lymph % (Auto) 25.5 [place] % (Auto) 15.2 Eos % (Auto) 0.2 Baso % (Auto) 0.2 Immature Gran # (Auto) 0.09 H Neut # (Auto) 3.21 Lymph # (Auto) 1.43 [place] # (Auto) 0.85 H Eos # (Auto) 0.01 Baso # (Auto) 0.01 Absolute Nucleated RBC 0.03 H Nucleated RBC % (auto) 0.6 Sodium 138 Potassium 4.4 Chloride 103 Carbon Dioxide 32 Anion Gap 3.0 BUN 19 H Creatinine 0.86 Est Cr Clr Drug Dosing 78.9 Est GFR ( Amer) 82.7 Est GFR (Non-Af Amer) 71.4 BUN/Creatinine Ratio 22.4 H Glucose 185 H POC Glucose 250 H Calcium 9.0 04/14/19 04/14/19 04/14/19 06:04 07:13 11:36 WBC RBC Hgb Hct MCV MCH MCHC RDW Std Deviation RDW Coeff of Angelo Plt Count MPV Immature Gran % (Auto) Neut % (Auto) Lymph % (Auto) [place] % (Auto) Eos % (Auto) Baso % (Auto) Immature Gran # (Auto) Neut # (Auto) Lymph # (Auto) [place] # (Auto) Eos # (Auto) Baso # (Auto) Absolute Nucleated RBC Nucleated RBC % (auto) Sodium 140 Potassium 3.7 D Chloride 103 Carbon Dioxide 35 H Anion Gap 2.0 L BUN 22 H Creatinine 0.79 Est Cr Clr Drug Dosing 86.0 Est GFR ( Amer) 91.7 Est GFR (Non-Af Amer) 79.1 BUN/Creatinine Ratio 27.4 H Glucose 78 POC Glucose 70 94 Calcium 9.4 04/14/19 16:06 WBC RBC Hgb Hct MCV MCH MCHC RDW Std Deviation RDW Coeff of Angelo Plt Count MPV Immature Gran % (Auto) Neut % (Auto) Lymph % (Auto) [place] % (Auto) Eos % (Auto) Baso % (Auto) Immature Gran # (Auto) Neut # (Auto) Lymph # (Auto) [place] # (Auto) Eos # (Auto) Baso # (Auto) Absolute Nucleated RBC Nucleated RBC % (auto) Sodium Potassium Chloride Carbon Dioxide Anion Gap BUN Creatinine Est Cr Clr Drug Dosing Est GFR ( Amer) Est GFR (Non-Af Amer) BUN/Creatinine Ratio Glucose POC Glucose 166 H Calcium (1) Respiratory failure Chronicity: unspecified Respiratory failure complication: unspecified whether with hypoxia or hypercapnia Qualified Code(s): J96.90 - Respiratory failure, unspecified, unspecified whether with hypoxia or hypercapnia (2) Pneumonia Laterality: left Lung location: lower lobe of lung Pneumonia type: due to unspecified organism Qualified Code(s): J18.9 - Pneumonia, unspecified organism
[2019-04-14] MEDS: MONTELUKAST SODIUM 10 MG TABLET PO SCH (20:24)
[2019-04-14] MEDS: DULOXETINE HCL 20 MG CAP PO SCH (20:25)
[2019-04-14] MEDS: ENOXAPARIN INJ 40 MG/0.4 ML SYR SQ SCH (20:27)
[2019-04-14] MEDS: HYDROCODONE/HOMATROPINE SYRUP 5MG/1.5MG 5ML UDP PO PRN (22:48)
[2019-04-15] MEDS ORDERED: COUGH DROP (SUGAR FREE) LOZ 24 LOZ/1 BOX BUCCAL ONE (00:58)
[2019-04-15] MEDS: LEVALBUTEROL 1.25MG/0.5ML NEB INH SCH ×3 (01:10→13:10)
[2019-04-15] MEDS: IPRATROPIUM BROMIDE NEB SOLN 0.02% 2.5 ML VIAL INH SCH ×3 (01:12→13:10)
[2019-04-15] MEDS ORDERED: COUGH DROP (SUGAR FREE) LOZ 24 LOZ/1 BOX BUCCAL PRN (01:12)
[2019-04-15 06:52] LABS: Basophils # (auto) 0.01 K/uL (0-0.2); Basophils % (auto) 0.2 %; Eosinophils # (auto) 0.02 K/uL (0-0.5); Eosinophils % (auto) 0.3 %; Hematocrit (blood only) 33.6 % (37-47); Immature Granulocytes # (auto) 0.15 K/uL (0.00-0.02); Immature Granulocytes % (auto) 2.6 %; Lymphocytes # (auto) 1.75 K/uL (1.2-3.4); Mean Corpuscular Hgb Conc 29.8 g/dL (32-36); Mean Corpuscular Volume 87.3 fL (80-100); Monocytes # (auto) 0.98 K/uL (0.11-0.59); Monocytes % (auto) 16.8 %; Neutrophils # (auto) 2.92 K/uL (1.4-6.5); Neutrophils % (auto) 50.1 %; Nucleated RBC # (auto) 0.02 K/uL (0-0); Nucleated RBC % (auto) 0.3 %; Platelet Count 342 K/uL (130-400); RDW Coefficient of Variation 16.6 % (11.5-14.5); RDW Standard Deviation 53.2 fL (36.4-46.3); Red Blood Count 3.85 M/uL (4.2-5.4); White Blood Count 5.83 K/uL (4.8-10.8)
[2019-04-15 07:27] LABS: Potassium 3.6 mmol/L (3.5-5.1)
[2019-04-15 07:28] LABS: BUN Creatinine Ratio 33.2 (10-20); Calcium 8.8 mg/dl (8.5-10.1); Est GFR (African American) 107.1; Est GFR (Non-African American) 92.4
[2019-04-15] MEDS ORDERED: INSULIN HUMAN NPH SC SCH (07:30)
[2019-04-15] MEDS ORDERED: NovoLIN-N (NPH) PER UNIT CHARGE SQ ONE (07:30)
[2019-04-15] MEDS: INSULIN ASPART 100 UNITS/ML 3 ML PEN SC SCH ×2 (08:08→12:39)
[2019-04-15] MEDS: predniSONE 20 MG TAB PO SCH (08:10)
[2019-04-15] MEDS: FERROUS SULFATE 325 MG TAB PO SCH (08:11)
[2019-04-15] MEDS: GABAPENTIN 300 MG CAP PO SCH ×2 (08:11→13:52)
[2019-04-15] MEDS: ASCORBIC ACID 500 MG TAB PO SCH (08:11)
[2019-04-15] MEDS: PANTOprazole 40 MG TAB PO SCH (08:11)
[2019-04-15] MEDS: AMLODIPINE BESYLATE 5 MG TAB PO SCH (08:12)
[2019-04-15] MEDS: ATORVASTATIN 40 MG TAB PO SCH (08:12)
[2019-04-15] MEDS: FAMOTIDINE 20 MG TAB PO SCH (08:12)
[2019-04-15] MEDS: DULOXETINE HCL 20 MG CAP PO SCH (08:13)
[2019-04-15] MEDS: DOXYCYCLINE HYCLATE 100 MG CAP PO SCH (08:13)
[2019-04-15] MEDS: LACTOBACILLUS ACIDOPHILUS (FLORANEX) TAB PO SCH ×2 (08:14→13:53)
[2019-04-15] MEDS: guaiFENesin 600 MG TABCR PO SCH (08:14)
[2019-04-15] MEDS: lisinopriL 5 MG TAB PO SCH (08:14)
[2019-04-15] MEDS: PRAMIPEXOLE DIHYDROCHLO 0.5 MG TAB PO SCH ×2 (08:14→13:52)
[2019-04-15] MEDS: LORATADINE 10 MG TAB PO SCH (08:15)
[2019-04-15] MEDS: FLUTICASONE FUROATE 100MCG 14 PUFFS/INHALER INH SCH (08:16)
[2019-04-15] MEDS: UMECLIDINIUM/VILANTEROL 62.5/25MCG 7 PUFFS/INHALER INH SCH (08:16)
[2019-04-15] MEDS ORDERED: FUROSEMIDE 20 MG TAB PO SCH (09:00)
[2019-04-15] MEDS ORDERED: POTASSIUM CHLORIDE 10 MEQ TABCR PO SCH (09:00)
[2019-04-15] MEDS: MAGNESIUM OXIDE 400 MG TAB PO SCH (13:52)
--- NOTE | 2019-04-15 13:54 | Pharmacy Report ---
PHA: Glycemic Control AP - Date of Service April 15, 2019 - Assessment & Plan Glycemic discharge recommendations Assessment * HbA1c demonstrates good control with two oral medications * Per Dr. Murillo, patient to be discharged on a prednisone taper starting at 40 mg daily * Patient was chronic prednisone prior to this admission, but usual dose is 10 mg po daily Recommendations * Continue home metformin 1 g po BID * Continue home glimepiride 2 mg po daily *BUT* increase to 4 mg po daily temorarily while patient is on prednisone 40 mg. May decrease down to usual home dose of 2 mg po daily once prednisone dose is less than 40 mg
== END 2019-04-15 14:11 | disposition home or self-care (01) | DRG 871 ==
LOC: ED 16:13 → 2E 18:10 → SUATTDRO 18:10 → 2E 18:42

== ENCOUNTER 2019-05-13 07:53 | Inpatient (IN) ==
[~2019-05-13 07:53] MED LIST changes: -AMT10 PO; -ASPI81TA28 PO; -ATOR10TA82 PO; -BENZ100C84 PO; -CYAN100020 PO; -CYCL10TA6 PO; -DICL1GEL12 TOP; -FLNIN NAE; -FRRS300 PO; -FURO-85 PO; -GABA-112 PO; -GFNSR600 PO; -GLIM1TAB2 PO; -HYDR-5688 PO; -IPRA1AER2 INH; -IPRASOL4 NEB; +KETAMINE HCL INJ 50 MG/ML 10 ML VIAL IV ONE; -MAGN400T6 PO; -METF1000 PO; +MIDAZOLAM HCL 5 MG/ML VIAL IV ONE; -MONT1TAB3 PO; -NRV/5 PO; -OXGN; -OXYB5TAB21 PO; -PANT40TA PO; -POTA-74 PO; -PRAM1TAB47 PO; -PRED10TA PO; -RANI300T2 PO; +ROCURONIUM BROMIDE 10 MG/ML 10 ML VIAL IV ONE; -UTIBRON INH; -VNTHFA/IN INH; -XNX5 PO
[2019-05-13] MEDS ORDERED: LEVOFLOXACIN/D5W 750 MG/150 ML BAG IV STA (07:58)
[2019-05-13] MEDS ORDERED: ALBUT/IPRATROP 3MG/0.5MG NEB 3 ML VIAL INH STA (07:58)
[2019-05-13] MEDS ORDERED: methylPREDNISolone 125 MG/2 ML VIAL IV STA (07:58)
[2019-05-13] MEDS ORDERED: ALBUT/IPRATROP 3MG/0.5MG NEB 3 ML VIAL ONE (08:00)
[2019-05-13] MEDS ORDERED: SODIUM CHLORIDE 0.9% 1000ML 1,000 ML IV SCH (08:00)
--- NOTE | 2019-05-13 08:06 | Emergency Department Note ---
ED Provider Note NAME: PETRA POWERS AGE: 63 SEX: F ARRIVES VIA: Ambulance INFORMANT: Patient, family ED PROVIDER(S): Pedro Welch DO CHIEF COMPLAINT: HPI:Patient is a 63-year-old female with a past medical history of COPD and asthma that presents the ER for shortness of breath which is been present for the past 5 days. She notes that she has had a yellow productive cough associated with a fever of 103 at home. Has had some shortness of breath and chest pain. She was given Ativan by EMS along with CPAP and neb treatments. She notes that the shortness of breath is slightly improved with CPAP. She has had this multiple times before in the past she notes. ROS: See above HPI for pertinent positives & negatives. A total of 10 systems reviewed and were otherwise negative. PAST MEDICAL HISTORY: See Below PAST SURGICAL HISTORY: See Below FAMILY HISTORY: See Below SOCIAL HISTORY: See Below HOME MEDICATIONS: See Below ALLERGIES: See Below VITALS: See Below PHYSICAL EXAMINATION: GENERAL: Sitting up in bed, alert, bees and disheveled intermittently moaning EYE EXAM: normal conjunctiva. OROPHARYNX: no exudate, no erythema, lips, buccal mucosa, and tongue normal and mucous membranes are moist NECK: supple, no nuchal rigidity, no adenopathy, non-tender LUNGS: Wheezing bilaterally with poor air movement normal chest wall mechanics HEART: Cardiac S1 normal and S2 normal ABDOMEN: abdomen soft, non-tender, normo-active bowel sounds, no masses, no rebound or guarding. BACK: Back is symmetrical on inspection and there is no deformity, no midline tenderness, no CVA tenderness. SKIN: no rashes and no bruising UPPER EXTREMITIES: upper extremities are grossly normal. LOWER EXTREMITIES: No pitting edema. Calves equal bilateral NEURO EXAM: Normal sensorium, cranial nerves II-XII grossly intact, normal speech, no gross weakness of arms, no gross weakness of legs. MEDICAL DECISION MAKING: Patient is a 66-year-old female with extensive past medical history of COPD and asthma that presents the ER for shortness of breath. She was brought in by EMS. She was found be hypoxic and placed on CPAP. Upon arrival she was in significant respiratory distress. She was moved to our BiPAP. Difficult IV stick and she did start to drop her blood pressures as a trended into the 70s. At this time I placed a central line in her right groin without complication. We started her on Levophed. Once we maintained appropriate blood pressure I intubated her after discussion with the patient and her family. She denies any recent travel out of [place]. Although multiple comorbidities believed to be a low risk from the standpoint of covid 19. IV was established blood work showed a mild leukopenia at 4000. Hemoglobin at 10. VBG with a pH of 7.27 and a CO2 of 58. BMP was fairly unremarkable. Lactate was elevated in the twos. Bilirubin LFTs were unremarkable. Troponin was negative. UA was unremarkable. [place] was placed. Discussed with the rn progressive care and recommended bio fire panel. Airborne precautions. Patient was fairly quickly titrated off pressors. She was given IV fluids and IV antibiotics broad-spectrum. She was in the ER for over 5 hours as we awaited the bio fire panel. During this time placed on propofol drip was titrated up. She was re-paralyzed with vecuronium. Did have difficulty with vent management as on more than 2 separate occasions she dropped her pulse ox into the 80s/70s where she had to be taken off of the ventilator bag suctioned and re-paralyzed. Electrical Appliance Preparer was notified on 2 of these occasions as we had extensive difficulty. Daughter was updated at bedside. Continue ventilator management with increasing of PEEP and FiO2 including initially decreasing both. Patient was taken to the ICU for additional management. Triage Nursing notes reviewed. Prior medical records reviewed Vital Signs: reviewed and remarkable for hypotension, tachycardia Differential diagnosis: Differential diagnoses includes but is not limited to pneumonia, bronchitis, CO PD/Asthma exacerbation, pneumothorax, pulmonary embolism, congestive heart failure, acute coronary syndrome ER treatment provided: As show below Diagnostics interpreted by me: ECG: Sinus Tach rate 169 Normal axis No PVCs Shortened QTC Cardiac Monitoring: Sinus rhythm rate 87 Laboratory studies: As stated above and show below. Imaging studies: Portable AP upright 1 view of the chest shows right focal pneumonia. No pneumothorax. Repeat chest x-ray portable AP upright one view shows ET tube in good position. No pneumothorax. Third chest x-ray portable AP upright one view shows worsening right-sided infiltrate encompassing the entire lung no pneumothorax. Consultation(s): Discussed with hospitalist Scarlet elmore under Dr. good. Discussed with the rn progressive care on several occasions. Patient was evaluated at bedside for vent management by the rn progressive care on 2 separate occasions. ED COURSE: Procedures: PROCEDURE NOTE - Central Line Insertion PRIOR TO PROCEDURE: Consent: Discussion was held with the patient concerning central line. The risks and benefits were explained with possible risks to include bleeding, pain, pneumothorax, hemothorax, pulmonary contusion, pulmonary laceration, and infection. The patient freely consented. The patient was evaluated prior to the procedure. The patient was identified and the procedure verified as central line insertion. A Time Out was held and the following information confirmed. Verify Correct Patient: Yes Verify Correct Site: Yes Availability of Necessary Equipment: Yes PROCEDURE NOTE: Procedure: Central Line Inserting Clinician: Pedro Welch DO. Guide-wire was removed, examined and is intact Complication/Corrective Action: None Estimated Blood Loss: 5 mls US guided line placement: Yes I have reviewed and educated the patient and or family regarding the benefits and risks of central line insertion, and I have reviewed the potential complications including infection - yes CENTRAL LINE BUNDLE: Skin Prep: Chlorhexidine/alcohol Barriers Used: Mask: yes Sterile gown: yes Large sterile drape: yes Cap: yes Sterile gloves: yes Insertion Status: new site Indications - include all that apply: {line indications:[id number]} Placement Conditions: Emergent Site: Femoral Side: R Number of lumen(s): triple Length of catheter inserted into patient: 30 centimeters Anesthesia: local Number of Needle Passes: 1 Radiological confirmation: No I performed the procedure. EM PROCEDURE NOTE - Endotracheal Intubation PROCEDURE NOTE: Informed consent was obtained by the patient. Verify Correct Patient: yes Procedure: Endotracheal intubation Indication: Resp Failure The procedure was done emergently. Description of the Procedure: The patient was seen and properly identified. The patient was pre-oxygenated and intubated after rapid sequence induction with meds: Rocuronium and Ketamine. Intubation was performed using a glidescope 7.5 cuffed endotracheal tube. The tube was visualized going through the cords and secured with the 21cm luis alberto at the lips. The patient had good bilateral breath sounds in the axillae with good chest rise. Proper ET tube placement was confirmed by end tidal CO2 detector. The patient tolerated the procedure well. Critical Care: I have personally spent 200 minutes of critical care time in the direct management of this patient. This includes bedside care, interpretation of diagnostic studies, and testing, discussion with consultants, patient, and family members, and other required patient management activities. This 200 minutes is in excess of all separately billable procedures. Impression & Plan Sepsis, COPD (chronic obstructive pulmonary disease), Respiratory failure, Hypoxia Past Med/Surg History Medical History Anemia (Acute) Asthma (Acute) Bronchitis (Inactive) Carpal tunnel syndrome (Acute) Chronic diastolic (congestive) heart failure (Inactive) Chronic respiratory failure with hypoxia, on home oxygen therapy 3L COPD (chronic obstructive pulmonary disease) (Acute) COPD exacerbation (Inactive) Depression (Acute) DM type 2 (diabetes mellitus, type 2) Edema (Inactive) GERD (gastroesophageal reflux disease) (Acute) Hiatal hernia (Inactive) History of cervical cancer (Acute) laser surgery to remove cancer per pt Hyperlipidemia (Acute) Hypertension (Acute) Intervertebral disc disorder (Inactive) "C5-C6" Morbid obesity with BMI of 40.0-44.9, adult (Inactive) Obesity hypoventilation syndrome suspected Osteoarthritis (Acute) Restless leg syndrome (Acute) Surgical History History of colonoscopy (Acute) History of esophagogastroduodenoscopy (EGD) (Acute) Family History Sister Diabetes Mother Lung cancer Social History Preferred Language: Citizen Of [place] Communication Ability: Effective Chief 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 Station Engineer Required: No Beliefs That Will Affect Care: None Current Living Situation: Family Current Living Situation Comment: with daughter Feels Safe at Home: Yes Smoking Status: Former smoker Tobacco Type: cigarettes ; Cigarettes Per Day: 1 pack per 3 days ; Second Hand Exposure: No ; Hx Alcohol Use: No Hx Substance Use: No Childhood Exposure to Second-Hand Smoke: Yes Results & Data Vital Signs Vital Signs - 24 hr 05/13/19 07:55 05/13/19 08:00 05/13/19 08:07 Temperature 36.7 C Temperature Source Axillary Pulse Rate 140 H 145 H 150 H Pulse Rate [Apical] Pulse Rate [Right Finger] Pulse Rate from SpO2 Sensor 146 H 149 H Respiratory Rate 26 H 30 H 29 H Respiratory Effort / Characteristics Labored Respiratory Depth Blood Pressure 150/103 H 150/103 H Blood Pressure [Right Arm] Blood Pressure Mean 118 116 Blood Pressure Mean [Right Arm] Pulse Oximetry 98 92 100 Oxygen Delivery Method BiPAP BiPAP Fraction of Inspired Oxygen Sepsis Recent Fever Within 48 Hours Yes Sepsis New/Unexplained Change in Mental Status No Sepsis Action Taken by Nursing Physician Notified End-Tidal CO2 End Tidal CO2 (18-54mmHg) Pulse Oximetry Post Tiitration 98 05/13/19 08:09 05/13/19 08:10 05/13/19 08:15 Temperature Temperature Source Pulse Rate 150 H 154 H Pulse Rate [Apical] Pulse Rate [Right Finger] 150 H Pulse Rate from SpO2 Sensor 153 H Respiratory Rate 32 H 32 H 31 H Respiratory Effort / Characteristics Spontaneous Labored Short of Breath Spontaneous Labored Short of Breath Respiratory Depth Blood Pressure Blood Pressure [Right Arm] Blood Pressure Mean Blood Pressure Mean [Right Arm] Pulse Oximetry 99 99 98 Oxygen Delivery Method BiPAP Fraction of Inspired Oxygen 35 35 Sepsis Recent Fever Within 48 Hours Sepsis New/Unexplained Change in Mental Status Sepsis Action Taken by Nursing End-Tidal CO2 End Tidal CO2 (18-54mmHg) Pulse Oximetry Post Tiitration 05/13/19 08:30 05/13/19 08:45 05/13/19 08:54 Temperature Temperature Source Pulse Rate 157 H 164 H Pulse Rate [Apical] 146 H Pulse Rate [Right Finger] Pulse Rate from SpO2 Sensor 155 H 164 H Respiratory Rate 32 H 33 H 21 Respiratory Effort / Characteristics Labored Respiratory Depth Shallow Blood Pressure Blood Pressure [Right Arm] Blood Pressure Mean Blood Pressure Mean [Right Arm] Pulse Oximetry 100 100 100 Oxygen Delivery Method BiPAP Fraction of Inspired Oxygen Sepsis Recent Fever Within 48 Hours Sepsis New/Unexplained Change in Mental Status Sepsis Action Taken by Nursing End-Tidal CO2 End Tidal CO2 (18-54mmHg) Pulse Oximetry Post Tiitration 05/13/19 09:00 05/13/19 09:09 05/13/19 09:10 Temperature Temperature Source Pulse Rate 167 H 163 H 166 H Pulse Rate [Apical] Pulse Rate [Right Finger] Pulse Rate from SpO2 Sensor 164 H 164 H 166 H Respiratory Rate 13 13 22 Respiratory Effort / Characteristics Respiratory Depth Blood Pressure 77/49 L 84/47 L Blood Pressure [Right Arm] Blood Pressure Mean 57 58 Blood Pressure Mean [Right Arm] Pulse Oximetry 100 100 100 Oxygen Delivery Method Fraction of Inspired Oxygen Sepsis Recent Fever Within 48 Hours Sepsis New/Unexplained Change in Mental Status Sepsis Action Taken by Nursing End-Tidal CO2 End Tidal CO2 (18-54mmHg) Pulse Oximetry Post Tiitration 05/13/19 09:12 05/13/19 09:15 05/13/19 09:16 Temperature Temperature Source Pulse Rate 165 H 163 H Pulse Rate [Apical] 166 H 166 H Pulse Rate [Right Finger] Pulse Rate from SpO2 Sensor 164 H 163 H Respiratory Rate 21 21 24 Respiratory Effort / Characteristics Labored Labored Respiratory Depth Blood Pressure 123/108 H Blood Pressure [Right Arm] 84/47 L Blood Pressure Mean 113 Blood Pressure Mean [Right Arm] 59 Pulse Oximetry 98 100 100 Oxygen Delivery Method BiPAP BiPAP Fraction of Inspired Oxygen Sepsis Recent Fever Within 48 Hours Sepsis New/Unexplained Change in Mental Status Sepsis Action Taken by Nursing End-Tidal CO2 End Tidal CO2 (18-54mmHg) Pulse Oximetry Post Tiitration 05/13/19 09:19 05/13/19 09:23 05/13/19 09:27 Temperature Temperature Source Pulse Rate 160 H 160 H Pulse Rate [Apical] 159 H Pulse Rate [Right Finger] Pulse Rate from SpO2 Sensor 157 H 160 H Respiratory Rate 24 22 20 Respiratory Effort / Characteristics Respiratory Depth Blood Pressure 133/68 118/97 Blood Pressure [Right Arm] 133/68 Blood Pressure Mean 100 108 Blood Pressure Mean [Right Arm] 89 Pulse Oximetry 100 100 100 Oxygen Delivery Method BiPAP Fraction of Inspired Oxygen Sepsis Recent Fever Within 48 Hours Sepsis New/Unexplained Change in Mental Status Sepsis Action Taken by Nursing End-Tidal CO2 End Tidal CO2 (18-54mmHg) Pulse Oximetry Post Tiitration 05/13/19 09:30 05/13/19 09:31 05/13/19 09:39 Temperature Temperature Source Pulse Rate 164 H 159 H 155 H Pulse Rate [Apical] Pulse Rate [Right Finger] Pulse Rate from SpO2 Sensor 165 H 159 H 157 H Respiratory Rate 28 H 14 25 H Respiratory Effort / Characteristics Respiratory Depth Blood Pressure 70/59 L 119/88 Blood Pressure [Right Arm] Blood Pressure Mean 65 97 Blood Pressure Mean [Right Arm] Pulse Oximetry 100 100 100 Oxygen Delivery Method Fraction of Inspired Oxygen Sepsis Recent Fever Within 48 Hours Sepsis New/Unexplained Change in Mental Status Sepsis Action Taken by Nursing End-Tidal CO2 End Tidal CO2 (18-54mmHg) Pulse Oximetry Post Tiitration 05/13/19 09:43 05/13/19 09:45 05/13/19 09:46 Temperature Temperature Source Pulse Rate 157 H 148 H 157 H Pulse Rate [Apical] 166 H Pulse Rate [Right Finger] Pulse Rate from SpO2 Sensor 156 H 149 H 158 H Respiratory Rate 25 H 14 19 Respiratory Effort / Characteristics Non-Labored Respiratory Depth Normal Blood Pressure 122/90 137/70 Blood Pressure [Right Arm] 137/70 Blood Pressure Mean 95 113 Blood Pressure Mean [Right Arm] 92 Pulse Oximetry 99 100 86 L Oxygen Delivery Method Mechanical Vent Fraction of Inspired Oxygen Sepsis Recent Fever Within 48 Hours Sepsis New/Unexplained Change in Mental Status Sepsis Action Taken by Nursing End-Tidal CO2 End Tidal CO2 (18-54mmHg) Pulse Oximetry Post Tiitration 05/13/19 09:48 05/13/19 09:50 05/13/19 09:54 Temperature Temperature Source Pulse Rate 170 H 170 H 172 H Pulse Rate [Apical] Pulse Rate [Right Finger] Pulse Rate from SpO2 Sensor 170 H 171 H 173 H Respiratory Rate 23 18 34 H Respiratory Effort / Characteristics Respiratory Depth Blood Pressure 219/122 H 246/171 H 189/171 H Blood Pressure [Right Arm] Blood Pressure Mean 136 211 184 Blood Pressure Mean [Right Arm] Pulse Oximetry 100 94 96 Oxygen Delivery Method Fraction of Inspired Oxygen Sepsis Recent Fever Within 48 Hours Sepsis New/Unexplained Change in Mental Status Sepsis Action Taken by Nursing End-Tidal CO2 End Tidal CO2 (18-54mmHg) Pulse Oximetry Post Tiitration 05/13/19 09:58 05/13/19 09:59 05/13/19 10:00 Temperature Temperature Source Pulse Rate 152 H 158 H 162 H Pulse Rate [Apical] Pulse Rate [Right Finger] Pulse Rate from SpO2 Sensor 164 H 161 H Respiratory Rate 16 18 16 Respiratory Effort / Characteristics Respiratory Depth Blood Pressure 203/97 H 198/186 H Blood Pressure [Right Arm] Blood Pressure Mean 110 192 Blood Pressure Mean [Right Arm] Pulse Oximetry 94 95 97 Oxygen Delivery Method Fraction of Inspired Oxygen 40 Sepsis Recent Fever Within 48 Hours Sepsis New/Unexplained Change in Mental Status Sepsis Action Taken by Nursing End-Tidal CO2 End Tidal CO2 (18-54mmHg) Pulse Oximetry Post Tiitration 05/13/19 10:11 05/13/19 10:15 05/13/19 10:16 Temperature Temperature Source Pulse Rate 153 H 152 H Pulse Rate [Apical] 151 H Pulse Rate [Right Finger] Pulse Rate from SpO2 Sensor 153 H 152 H Respiratory Rate 16 16 16 Respiratory Effort / Characteristics Non-Labored Respiratory Depth Normal Blood Pressure 127/84 Blood Pressure [Right Arm] 127/84 Blood Pressure Mean 100 Blood Pressure Mean [Right Arm] 98 Pulse Oximetry 96 96 96 Oxygen Delivery Method Mechanical Vent Fraction of Inspired Oxygen Sepsis Recent Fever Within 48 Hours Sepsis New/Unexplained Change in Mental Status Sepsis Action Taken by Nursing End-Tidal CO2 End Tidal CO2 (18-54mmHg) Pulse Oximetry Post Tiitration 05/13/19 10:20 05/13/19 10:23 05/13/19 10:26 Temperature Temperature Source Pulse Rate 151 H 146 H Pulse Rate [Apical] 145 H Pulse Rate [Right Finger] Pulse Rate from SpO2 Sensor 150 H 146 H Respiratory Rate 16 Respiratory Effort / Characteristics Respiratory Depth Normal Blood Pressure 156/84 H 161/70 H Blood Pressure [Right Arm] 161/70 H Blood Pressure Mean 115 87 Blood Pressure Mean [Right Arm] 100 Pulse Oximetry 96 96 97 Oxygen Delivery Method Fraction of Inspired Oxygen Sepsis Recent Fever Within 48 Hours Sepsis New/Unexplained Change in Mental Status Sepsis Action Taken by Nursing End-Tidal CO2 64 End Tidal CO2 (18-54mmHg) 62 Pulse Oximetry Post Tiitration 05/13/19 10:30 05/13/19 10:31 05/13/19 10:45 Temperature Temperature Source Pulse Rate 143 H 140 H Pulse Rate [Apical] 142 H Pulse Rate [Right Finger] Pulse Rate from SpO2 Sensor 143 H 140 H Respiratory Rate 16 Respiratory Effort / Characteristics Respiratory Depth Blood Pressure 144/76 H 126/83 Blood Pressure [Right Arm] 144/76 H Blood Pressure Mean 84 95 Blood Pressure Mean [Right Arm] 98 Pulse Oximetry 96 97 96 Oxygen Delivery Method Fraction of Inspired Oxygen Sepsis Recent Fever Within 48 Hours Sepsis New/Unexplained Change in Mental Status Sepsis Action Taken by Nursing End-Tidal CO2 63 62 End Tidal CO2 (18-54mmHg) Pulse Oximetry Post Tiitration 05/13/19 11:00 05/13/19 11:15 05/13/19 11:16 Temperature Temperature Source Pulse Rate 137 H 134 H 139 H Pulse Rate [Apical] Pulse Rate [Right Finger] Pulse Rate from SpO2 Sensor 136 H 134 H 139 H Respiratory Rate Respiratory Effort / Characteristics Respiratory Depth Blood Pressure 126/83 139/97 Blood Pressure [Right Arm] Blood Pressure Mean 96 103 Blood Pressure Mean [Right Arm] Pulse Oximetry 95 93 93 Oxygen Delivery Method Fraction of Inspired Oxygen Sepsis Recent Fever Within 48 Hours Sepsis New/Unexplained Change in Mental Status Sepsis Action Taken by Nursing End-Tidal CO2 64 65 56 End Tidal CO2 (18-54mmHg) Pulse Oximetry Post Tiitration 05/13/19 11:30 05/13/19 11:45 05/13/19 12:00 Temperature Temperature Source Pulse Rate 135 H 137 H 139 H Pulse Rate [Apical] Pulse Rate [Right Finger] Pulse Rate from SpO2 Sensor 135 H 135 H 139 H Respiratory Rate Respiratory Effort / Characteristics Respiratory Depth Blood Pressure 121/85 118/76 112/80 Blood Pressure [Right Arm] Blood Pressure Mean 99 82 95 Blood Pressure Mean [Right Arm] Pulse Oximetry 88 L 95 95 Oxygen Delivery Method Fraction of Inspired Oxygen Sepsis Recent Fever Within 48 Hours Sepsis New/Unexplained Change in Mental Status Sepsis Action Taken by Nursing End-Tidal CO2 51 49 43 End Tidal CO2 (18-54mmHg) Pulse Oximetry Post Tiitration 05/13/19 12:15 05/13/19 12:30 05/13/19 12:32 Temperature Temperature Source Pulse Rate 138 H 136 H 138 H Pulse Rate [Apical] Pulse Rate [Right Finger] Pulse Rate from SpO2 Sensor 138 H 136 H 138 H Respiratory Rate Respiratory Effort / Characteristics Respiratory Depth Blood Pressure 126/60 111/80 Blood Pressure [Right Arm] Blood Pressure Mean 99 92 Blood Pressure Mean [Right Arm] Pulse Oximetry 79 L 84 L 100 Oxygen Delivery Method Fraction of Inspired Oxygen Sepsis Recent Fever Within 48 Hours Sepsis New/Unexplained Change in Mental Status Sepsis Action Taken by Nursing End-Tidal CO2 47 40 41 End Tidal CO2 (18-54mmHg) Pulse Oximetry Post Tiitration Laboratory Data Result diagrams: 05/13/19 09:33 05/13/19 09:33 Lab Results 05/13/19 05/13/19 05/13/19 Range/Units 08:10 09:08 09:08 WBC (4.8-10.8) K/uL RBC (4.2-5.4) M/uL Hgb (12.0-16.0) g/dL POC Hgb (12.0-16.0) g/dl Hct (37-47) % POC Hct (37-47) % MCV (80-100) fL MCH (25-34) pg MCHC (32-36) g/dL RDW Std Deviation (36.4-46.3) fL RDW Coeff of Angelo (11.5-14.5) % Plt Count (130-400) K/uL MPV (7.4-10.4) fL Immature Gran % (Auto) % Neut % (Auto) % Lymph % (Auto) % [place] % (Auto) % Eos % (Auto) % Baso % (Auto) % Immature Gran # (Auto) (0.00-0.02) K/uL Neut # (Auto) (1.4-6.5) K/uL Lymph # (Auto) (1.2-3.4) K/uL [place] # (Auto) (0.11-0.59) K/uL Eos # (Auto) (0-0.5) K/uL Baso # (Auto) (0-0.2) K/uL Absolute Nucleated RBC (0-0) K/uL Nucleated RBC % (auto) % Toxic Vacuolation Dohle Bodies PT (9.0-12.0) Seconds INR (0.9-1.1) APTT (21.0-31.0) Seconds PTT Ratio POC pH (7.35-7.45) POC pCO2 (35-46) mmHg POC pO2 (80-95) mmHg POC HCO3 (19-24) jillian/L POC Total CO2 (24-31) mmol/L POC Base Excess (-9-1.8) jillian/L VBG pH Cancelled VBG pCO2 Cancelled VBG pO2 Cancelled VBG HCO3 Cancelled VBG O2 Saturation Cancelled VBG Base Excess Cancelled Barometric Pressure Cancelled POC Sodium (135-144) mmol/L Sodium (136-145) mmol/L POC Potassium (3.3-5.0) mmol/L Potassium (3.5-5.1) mmol/L Chloride (98-107) mmol/L Carbon Dioxide (21-32) mmol/L Anion Gap (3-11) BUN (7-18) mg/dl Creatinine (0.6-1.2) mg/dl Est Cr Clr Drug Dosing ml/min Est GFR ( Amer) Est GFR (Non-Af Amer) BUN/Creatinine Ratio (10-20) Glucose (70-99) mg/dl Lactate 2.3 H* (0.4-2.0) mmol/L Calcium (8.5-10.1) mg/dl Magnesium (1.8-2.4) mg/dl Total Bilirubin (0.2-1) mg/dl AST (15-37) U/L ALT (12-78) U/L Alkaline Phosphatase (45-117) U/L Troponin I (0-0.045) ng/ml NT-Pro-B Natriuret Pep (0-900) pg/ml Total Protein (6.4-8.2) gm/dl Albumin (3.4-5.0) gm/dl Globulin (2.5-4.0) gm/dl Albumin/Globulin Ratio (0.9-2) Urine Color Urine Appearance (Clear) Urine pH (4.5-7.5) Ur Specific [place] (1.000-1.030) Urine Protein (Negative) Urine Glucose (UA) (Negative) Urine Ketones (Negative) Urine Blood (Negative) Urine Nitrite (Negative) Urine Bilirubin (Negative) Urine Urobilinogen (Negative) Ur Leukocyte Esterase (Negative) Urine RBC (0-4) /hpf Urine WBC (0-5) /hpf Ur Epithelial Cells (0-5) /lpf Urine Bacteria (Negative) Adenovirus (PCR) (NotDetected) B. pertussis DNA (PCR) (NotDetected) B.parapertussis DNA PCR (NotDetected) C. pneumoniae DNA (PCR) (NotDetected) Coronavirus OC43 (PCR) (NotDetected) Coronavirus HKU1 (PCR) (NotDetected) Coronavirus 229E (PCR) (NotDetected) Coronavirus NL63 (PCR) (NotDetected) Human Metapneumovir PCR (NotDetected) Influenza Type A (PCR) Neg for Influ A (Neg) Influenza Type B (PCR) Neg for Influ B (Neg) M. pneumoniae (PCR) (NotDetected) Parainfluenza 1 (PCR) (NotDetected) Parainfluenza 2 (PCR) (NotDetected) Parainfluenza 3 (PCR) (NotDetected) Parainfluenza 4 (PCR) (NotDetected) RSV (PCR) (NotDetected) Entero/Rhino (PCR) (NotDetected) 05/13/19 05/13/19 05/13/19 Range/Units 09:33 09:33 09:33 WBC 4.08 L (4.8-10.8) K/uL RBC 3.88 L (4.2-5.4) M/uL Hgb 10.6 L (12.0-16.0) g/dL POC Hgb (12.0-16.0) g/dl Hct 34.8 L (37-47) % POC Hct (37-47) % MCV 89.7 (80-100) fL MCH 27.3 (25-34) pg MCHC 30.5 L (32-36) g/dL RDW Std Deviation 57.9 H (36.4-46.3) fL RDW Coeff of Angelo 17.8 H (11.5-14.5) % Plt Count 225 (130-400) K/uL MPV 9.6 (7.4-10.4) fL Immature Gran % (Auto) 0.2 % Neut % (Auto) 75.0 % Lymph % (Auto) 20.6 % [place] % (Auto) 3.7 % Eos % (Auto) 0.5 % Baso % (Auto) 0.0 % Immature Gran # (Auto) 0.01 (0.00-0.02) K/uL Neut # (Auto) 3.06 (1.4-6.5) K/uL Lymph # (Auto) 0.84 L (1.2-3.4) K/uL [place] # (Auto) 0.15 (0.11-0.59) K/uL Eos # (Auto) 0.02 (0-0.5) K/uL Baso # (Auto) 0.00 (0-0.2) K/uL Absolute Nucleated RBC 0.02 H (0-0) K/uL Nucleated RBC % (auto) 0.6 % Toxic Vacuolation 1+ Dohle Bodies 1+ PT 12.1 H (9.0-12.0) Seconds INR 1.2 H (0.9-1.1) APTT 23.2 (21.0-31.0) Seconds PTT Ratio 0.8 POC pH (7.35-7.45) POC pCO2 (35-46) mmHg POC pO2 (80-95) mmHg POC HCO3 (19-24) jillian/L POC Total CO2 (24-31) mmol/L POC Base Excess (-9-1.8) jillian/L VBG pH VBG pCO2 VBG pO2 VBG HCO3 VBG O2 Saturation VBG Base Excess Barometric Pressure POC Sodium (135-144) mmol/L Sodium 141 (136-145) mmol/L POC Potassium (3.3-5.0) mmol/L Potassium 3.9 (3.5-5.1) mmol/L Chloride 107 (98-107) mmol/L Carbon Dioxide 29 (21-32) mmol/L Anion Gap 5.0 (3-11) BUN 18 (7-18) mg/dl Creatinine 1.14 (0.6-1.2) mg/dl Est Cr Clr Drug Dosing 60.5 ml/min Est GFR ( Amer) 58.9 Est GFR (Non-Af Amer) 50.8 BUN/Creatinine Ratio 15.5 (10-20) Glucose 152 H (70-99) mg/dl Lactate (0.4-2.0) mmol/L Calcium 9.1 (8.5-10.1) mg/dl Magnesium 1.7 L (1.8-2.4) mg/dl Total Bilirubin 0.4 (0.2-1) mg/dl AST 11 L (15-37) U/L ALT 29 (12-78) U/L Alkaline Phosphatase 82 (45-117) U/L Troponin I < 0.015 (0-0.045) ng/ml NT-Pro-B Natriuret Pep 175 (0-900) pg/ml Total Protein 6.5 (6.4-8.2) gm/dl Albumin 2.5 L (3.4-5.0) gm/dl Globulin 4.0 (2.5-4.0) gm/dl Albumin/Globulin Ratio 0.6 L (0.9-2) Urine Color Urine Appearance (Clear) Urine pH (4.5-7.5) Ur Specific [place] (1.000-1.030) Urine Protein (Negative) Urine Glucose (UA) (Negative) Urine Ketones (Negative) Urine Blood (Negative) Urine Nitrite (Negative) Urine Bilirubin (Negative) Urine Urobilinogen (Negative) Ur Leukocyte Esterase (Negative) Urine RBC (0-4) /hpf Urine WBC (0-5) /hpf Ur Epithelial Cells (0-5) /lpf Urine Bacteria (Negative) Adenovirus (PCR) (NotDetected) B. pertussis DNA (PCR) (NotDetected) B.parapertussis DNA PCR (NotDetected) C. pneumoniae DNA (PCR) (NotDetected) Coronavirus OC43 (PCR) (NotDetected) Coronavirus HKU1 (PCR) (NotDetected) Coronavirus 229E (PCR) (NotDetected) Coronavirus NL63 (PCR) (NotDetected) Human Metapneumovir PCR (NotDetected) Influenza Type A (PCR) (Neg) Influenza Type B (PCR) (Neg) M. pneumoniae (PCR) (NotDetected) Parainfluenza 1 (PCR) (NotDetected) Parainfluenza 2 (PCR) (NotDetected) Parainfluenza 3 (PCR) (NotDetected) Parainfluenza 4 (PCR) (NotDetected) RSV (PCR) (NotDetected) Entero/Rhino (PCR) (NotDetected) 05/13/19 05/13/19 05/13/19 Range/Units 09:37 10:01 10:29 WBC (4.8-10.8) K/uL RBC (4.2-5.4) M/uL Hgb (12.0-16.0) g/dL POC Hgb (12.0-16.0) g/dl Hct (37-47) % POC Hct (37-47) % MCV (80-100) fL MCH (25-34) pg MCHC (32-36) g/dL RDW Std Deviation (36.4-46.3) fL RDW Coeff of Angelo (11.5-14.5) % Plt Count (130-400) K/uL MPV (7.4-10.4) fL Immature Gran % (Auto) % Neut % (Auto) % Lymph % (Auto) % [place] % (Auto) % Eos % (Auto) % Baso % (Auto) % Immature Gran # (Auto) (0.00-0.02) K/uL Neut # (Auto) (1.4-6.5) K/uL Lymph # (Auto) (1.2-3.4) K/uL [place] # (Auto) (0.11-0.59) K/uL Eos # (Auto) (0-0.5) K/uL Baso # (Auto) (0-0.2) K/uL Absolute Nucleated RBC (0-0) K/uL Nucleated RBC % (auto) % Toxic Vacuolation Dohle Bodies PT (9.0-12.0) Seconds INR (0.9-1.1) APTT (21.0-31.0) Seconds PTT Ratio POC pH (7.35-7.45) POC pCO2 (35-46) mmHg POC pO2 (80-95) mmHg POC HCO3 (19-24) jillian/L POC Total CO2 (24-31) mmol/L POC Base Excess (-9-1.8) jillian/L VBG pH 7.33 L VBG pCO2 57 H VBG pO2 35 VBG HCO3 29 VBG O2 Saturation 62.0 VBG Base Excess 2.4 Barometric Pressure 742.0 POC Sodium (135-144) mmol/L Sodium (136-145) mmol/L POC Potassium (3.3-5.0) mmol/L Potassium (3.5-5.1) mmol/L Chloride (98-107) mmol/L Carbon Dioxide (21-32) mmol/L Anion Gap (3-11) BUN (7-18) mg/dl Creatinine (0.6-1.2) mg/dl Est Cr Clr Drug Dosing ml/min Est GFR ( Amer) Est GFR (Non-Af Amer) BUN/Creatinine Ratio (10-20) Glucose (70-99) mg/dl Lactate (0.4-2.0) mmol/L Calcium (8.5-10.1) mg/dl Magnesium (1.8-2.4) mg/dl Total Bilirubin (0.2-1) mg/dl AST (15-37) U/L ALT (12-78) U/L Alkaline Phosphatase (45-117) U/L Troponin I (0-0.045) ng/ml NT-Pro-B Natriuret Pep (0-900) pg/ml Total Protein (6.4-8.2) gm/dl Albumin (3.4-5.0) gm/dl Globulin (2.5-4.0) gm/dl Albumin/Globulin Ratio (0.9-2) Urine Color Yellow Urine Appearance Clear (Clear) Urine pH 5.0 (4.5-7.5) Ur Specific [place] >= 1.030 (1.000-1.030) Urine Protein Trace H (Negative) Urine Glucose (UA) 3+ H (Negative) Urine Ketones Negative (Negative) Urine Blood Negative (Negative) Urine Nitrite Negative (Negative) Urine Bilirubin Negative (Negative) Urine Urobilinogen Negative (Negative) Ur Leukocyte Esterase Negative (Negative) Urine RBC 0-4 (0-4) /hpf Urine WBC 5-10 H (0-5) /hpf Ur Epithelial Cells 10-20 H (0-5) /lpf Urine Bacteria Negative (Negative) Adenovirus (PCR) Not Detected (NotDetected) B. pertussis DNA (PCR) Not Detected (NotDetected) B.parapertussis DNA PCR Not Detected (NotDetected) C. pneumoniae DNA (PCR) Not Detected (NotDetected) Coronavirus OC43 (PCR) Not Detected (NotDetected) Coronavirus HKU1 (PCR) Not Detected (NotDetected) Coronavirus 229E (PCR) Not Detected (NotDetected) Coronavirus NL63 (PCR) Not Detected (NotDetected) Human Metapneumovir PCR Not Detected (NotDetected) Influenza Type A (PCR) Not Detected (Neg) Influenza Type B (PCR) Not Detected (Neg) M. pneumoniae (PCR) Not Detected (NotDetected) Parainfluenza 1 (PCR) Not Detected (NotDetected) Parainfluenza 2 (PCR) Not Detected (NotDetected) Parainfluenza 3 (PCR) Not Detected (NotDetected) Parainfluenza 4 (PCR) Not Detected (NotDetected) RSV (PCR) Not Detected (NotDetected) Entero/Rhino (PCR) Not Detected (NotDetected) 05/13/19 05/13/19 05/13/19 Range/Units 11:26 11:48 12:07 WBC (4.8-10.8) K/uL RBC (4.2-5.4) M/uL Hgb (12.0-16.0) g/dL POC Hgb 9.9 L 9.5 L (12.0-16.0) g/dl Hct (37-47) % POC Hct 29 L 28 L (37-47) % MCV (80-100) fL MCH (25-34) pg MCHC (32-36) g/dL RDW Std Deviation (36.4-46.3) fL RDW Coeff of Angelo (11.5-14.5) % Plt Count (130-400) K/uL MPV (7.4-10.4) fL Immature Gran % (Auto) % Neut % (Auto) % Lymph % (Auto) % [place] % (Auto) % Eos % (Auto) % Baso % (Auto) % Immature Gran # (Auto) (0.00-0.02) K/uL Neut # (Auto) (1.4-6.5) K/uL Lymph # (Auto) (1.2-3.4) K/uL [place] # (Auto) (0.11-0.59) K/uL Eos # (Auto) (0-0.5) K/uL Baso # (Auto) (0-0.2) K/uL Absolute Nucleated RBC (0-0) K/uL Nucleated RBC % (auto) % Toxic Vacuolation Dohle Bodies PT (9.0-12.0) Seconds INR (0.9-1.1) APTT (21.0-31.0) Seconds PTT Ratio POC pH 7.25 L 7.27 L (7.35-7.45) POC pCO2 62 H 58 H (35-46) mmHg POC pO2 43 L 46 L (80-95) mmHg POC HCO3 27 H 27 H (19-24) jillian/L POC Total CO2 29 29 (24-31) mmol/L POC Base Excess 0.0 0.0 (-9-1.8) jillian/L VBG pH VBG pCO2 VBG pO2 VBG HCO3 VBG O2 Saturation VBG Base Excess Barometric Pressure POC Sodium 143 141 (135-144) mmol/L Sodium (136-145) mmol/L POC Potassium 3.3 3.4 (3.3-5.0) mmol/L Potassium (3.5-5.1) mmol/L Chloride (98-107) mmol/L Carbon Dioxide (21-32) mmol/L Anion Gap (3-11) BUN (7-18) mg/dl Creatinine (0.6-1.2) mg/dl Est Cr Clr Drug Dosing ml/min Est GFR ( Amer) Est GFR (Non-Af Amer) BUN/Creatinine Ratio (10-20) Glucose (70-99) mg/dl Lactate 1.2 (0.4-2.0) mmol/L Calcium (8.5-10.1) mg/dl Magnesium (1.8-2.4) mg/dl Total Bilirubin (0.2-1) mg/dl AST (15-37) U/L ALT (12-78) U/L Alkaline Phosphatase (45-117) U/L Troponin I (0-0.045) ng/ml NT-Pro-B Natriuret Pep (0-900) pg/ml Total Protein (6.4-8.2) gm/dl Albumin (3.4-5.0) gm/dl Globulin (2.5-4.0) gm/dl Albumin/Globulin Ratio (0.9-2) Urine Color Urine Appearance (Clear) Urine pH (4.5-7.5) Ur Specific [place] (1.000-1.030) Urine Protein (Negative) Urine Glucose (UA) (Negative) Urine Ketones (Negative) Urine Blood (Negative) Urine Nitrite (Negative) Urine Bilirubin (Negative) Urine Urobilinogen (Negative) Ur Leukocyte Esterase (Negative) Urine RBC (0-4) /hpf Urine WBC (0-5) /hpf Ur Epithelial Cells (0-5) /lpf Urine Bacteria (Negative) Adenovirus (PCR) (NotDetected) B. pertussis DNA (PCR) (NotDetected) B.parapertussis DNA PCR (NotDetected) C. pneumoniae DNA (PCR) (NotDetected) Coronavirus OC43 (PCR) (NotDetected) Coronavirus HKU1 (PCR) (NotDetected) Coronavirus 229E (PCR) (NotDetected) Coronavirus NL63 (PCR) (NotDetected) Human Metapneumovir PCR (NotDetected) Influenza Type A (PCR) (Neg) Influenza Type B (PCR) (Neg) M. pneumoniae (PCR) (NotDetected) Parainfluenza 1 (PCR) (NotDetected) Parainfluenza 2 (PCR) (NotDetected) Parainfluenza 3 (PCR) (NotDetected) Parainfluenza 4 (PCR) (NotDetected) RSV (PCR) (NotDetected) Entero/Rhino (PCR) (NotDetected) Administered Medications Propofol (Diprivan) 1,000 mg in 100 mls @ 13.632 mls/hr IV .Q7H21M ELFEGO; Pro tocol Stop: 05/16/19 09:59 Last Admin: 05/13/19 10:22 Dose: 20 mcg/kg/min, 13.6 mls/hr Documented by: [id number] Cosigned by: [id number] Propofol (Diprivan Bolus From Bag) 20 mg IV Q5M PRN PRN Reason: Sedation Stop: 05/16/19 09:53 Last Admin: 05/13/19 11:28 Dose: 20 mg Documented by: [id number] Cosigned by: [id number] Discontinued Medications Albuterol (Duoneb) 12 ml INH ONE STA Stop: 05/13/19 07:59 Last Admin: 05/13/19 08:37 Dose: 12 ml Documented by: [id number] Albuterol (Duoneb) Confirm Administered Dose 12 ml .ROUTE .STK-MED ONE Stop: 05/13/19 08:01 Last Admin: 05/13/19 11:19 Dose: Not Given Documented by: [id number] Sodium Chloride (Nss 1000ml) 1,000 mls @ 999 mls/hr IV .Q1H1M ELFEGO Stop: 05/13/19 09:00 Last Infusion: 05/13/19 10:33 Dose: 0 mls/hr Documented by: [id number] Admin: 05/13/19 09:30 Dose: 999 mls/hr Documented by: [id number] Levofloxacin/Dextrose (Levaquin/D5w) 750 mg in 150 mls @ 100 mls/hr IV NOW STA Stop: 05/13/19 09:27 Last Infusion: 05/13/19 10:23 Dose: 0 mls/hr Documented by: [id number] Admin: 05/13/19 08:51 Dose: 100 mls/hr Documented by: [id number] Ceftriaxone Sodium (Rocephin) 1,000 mg in 50 mls @ 100 mls/hr IV NOW STA Stop: 05/13/19 08:58 Last Infusion: 05/13/19 10:24 Dose: 0 mls/hr Documented by: [id number] Admin: 05/13/19 09:56 Dose: 100 mls/hr Documented by: [id number] Methylprednisolone (Solumedrol) 125 mg IV NOW STA Stop: 05/13/19 07:59 Last Admin: 05/13/19 08:51 Dose: 125 mg Documented by: [id number] Midazolam HCl (Versed) 4 mg IV NOW STA Stop: 05/13/19 09:55 Last Admin: 05/13/19 09:57 Dose: 4 mg Documented by: [id number] Miscellaneous () Confirm Administered Dose 1 ea .ROUTE .STK-MED ONE Stop: 05/13/19 09:19 Last Admin: 05/13/19 09:40 Dose: 1 ea Documented by: [id number] Vecuronium [place] (Norcuron) Confirm Administered Dose 10 mg .ROUTE .STK-MED ONE Stop: 05/13/19 12:21 Last Admin: 05/13/19 12:25 Dose: 10 mg Documented by: [id number] Cosigned by: [id number] Discharge Plan Visit Data Chief Complaint: Respiratory Problems Stated Complaint: SOB ED Provider: Pedro Welch Discharge Problem: Sepsis, COPD (chronic obstructive pulmonary disease), Respiratory failure, Hypoxia
--- NOTE | 2019-05-13 08:23 | XRay Report ---
XR chest 1V portable CLINICAL HISTORY: Dyspnea dyspnea COMPARISON STUDY: 04/13/2019 FINDINGS: Interval diffuse parenchymal infiltrate of the right hemithorax. The left hemithorax remain generally clear. Diaphragms are smooth. IMPRESSION: Diffuse parenchymal infiltrate right hemithorax. ACT 112: Negative or not required by law. The above report was generated using voice recognition software. It may contain grammatical, syntax or spelling errors. Electronically signed by: Fuentes Lewis M.D. 05/13/2019 8:22 AM
[2019-05-13] MEDS ORDERED: cefTRIAXone SODIUM 1,000 MG/50 ML BAG IV STA (08:29)
[2019-05-13 08:51] LABS: Influenza A virus by PCR Neg for Influ A (Neg); Influenza B virus by PCR Neg for Influ B (Neg)
[2019-05-13] MEDS ORDERED: RAPID SEQUENCE INDUCTION BAG ONE (09:18)
[2019-05-13] MEDS ORDERED: STAT IV Infusion **Titration per Protocol STA ×4 (09:36→23:18)
[2019-05-13] MEDS ORDERED: NOREPINEPHRINE BIT INJ 8 MG in DEXTROSE 5% 500 ML IV SCH (09:45)
[2019-05-13 09:48] LABS: Hematocrit (blood only) 34.8 % (37-47); Hemoglobin 10.6 g/dL (12.0-16.0); Mean Corpuscular Hemoglobin 27.3 pg (25-34); Mean Corpuscular Hgb Conc 30.5 g/dL (32-36); Mean Corpuscular Volume 89.7 fL (80-100); Mean Platelet Volume 9.6 fL (7.4-10.4); Nucleated RBC # (auto) 0.02 K/uL (0-0); Nucleated RBC % (auto) 0.6 %; Platelet Count 225 K/uL (130-400); RDW Coefficient of Variation 17.8 % (11.5-14.5); RDW Standard Deviation 57.9 fL (36.4-46.3); Red Blood Count 3.88 M/uL (4.2-5.4); White Blood Count 4.08 K/uL (4.8-10.8)
[2019-05-13 09:50] LABS: Base Excess VBG 2.4 mEq/L; pH VBG 7.33 (7.36-7.41)
[2019-05-13] MEDS ORDERED: MIDAZOLAM HCL 5 MG/ML 1 ML VIAL IV STA (09:54)
[2019-05-13 09:59] LABS: INR 1.2 (0.9-1.1); Partial Thromboplastin Ratio 0.8; Partial Thromboplastin Time 23.2 Seconds (21.0-31.0); Prothrombin Time 12.1 Seconds (9.0-12.0)
[2019-05-13 10:04] LABS: Alanine Aminotransferase 29 U/L (12-78); Albumin Level 2.5 gm/dl (3.4-5.0); Aspartate Aminotransferase 11 U/L (15-37); BUN Creatinine Ratio 15.5 (10-20); Blood Urea Nitrogen 18 mg/dl (7-18); Calcium 9.1 mg/dl (8.5-10.1); Carbon Dioxide 29 mmol/L (21-32); Chloride 107 mmol/L (98-107); Creatinine Clr Calc Pharmacy 60.5 ml/min; Est GFR (African American) 58.9; Est GFR (Non-African American) 50.8; Glucose 152 mg/dl (70-99); Magnesium 1.7 mg/dl (1.8-2.4); Potassium 3.9 mmol/L (3.5-5.1); Sodium 141 mmol/L (136-145)
--- NOTE | 2019-05-13 10:06 | XRay Report ---
XR chest 1V portable CLINICAL HISTORY: ett tube position COMPARISON STUDY: Endotracheal tube 3 cm above the romina. Findings a mildly progressive right hemithoracic parenchymal infiltrative change with minimal changes left base. FINDINGS: The bones soft tissues and hemidiaphragms are normal. The cardiomediastinal silhouette is n ormal. The lungs are clear. The pulmonary vasculature is normal. IMPRESSION: Endotracheal tube positioned 3 cm above the romina. Mildly progressive right hemithoraci c parenchymal infiltrates ACT 112: Negative or not required by law. The above report was generated using voice recognition software. It may contain grammatical, syntax or spelling errors. Electronically signed by: Fuentes Lewis M.D. 05/13/2019 10:05 AM
[2019-05-13 10:09] LABS: Albumin Globulin Ratio 0.6 (0.9-2); Alkaline Phosphatase 82 U/L (45-117); Bilirubin,Total 0.4 mg/dl (0.2-1); NT Pro B Type Natriuretic Pept 175 pg/ml (0-900); Total Protein 6.5 gm/dl (6.4-8.2); Troponin I < 0.015 ng/ml (0-0.045)
[2019-05-13 10:17] LABS: Dohle Bodies 1+; Eosinophils # (auto) 0.02 K/uL (0-0.5); Eosinophils % (auto) 0.5 %; Immature Granulocytes # (auto) 0.01 K/uL (0.00-0.02); Immature Granulocytes % (auto) 0.2 %; Lymphocytes # (auto) 0.84 K/uL (1.2-3.4); Lymphocytes % (auto) 20.6 %; Monocytes # (auto) 0.15 K/uL (0.11-0.59); Monocytes % (auto) 3.7 %; Neutrophils # (auto) 3.06 K/uL (1.4-6.5); Toxic Vacuolation 1+
[2019-05-13] MEDS: propofoL 1,000 MG/100 ML VIAL IV SCH ×3 (10:22→22:09)
[2019-05-13 10:49] LABS: Appearance Urine Clear (Clear); Bilirubin Urine Negative (Negative); Blood Urine Negative (Negative); Color Urine Yellow; Glucose Urine UA 3+ (Negative); Ketones Urine Negative (Negative); Leukocyte Esterase Urine Negative (Negative); Nitrite Urine Negative (Negative); Protein Urine Trace (Negative); Specific Gravity Urine >= 1.030 (1.000-1.030); Urobilinogen Urine Negative (Negative)
--- NOTE | 2019-05-13 10:55 | History & Physical Report ---
Date of Service May 13, 2019 Assessment & Plan (1) Septic shock: (2) Acute on chronic respiratory failure with hypoxia: (3) Pneumonia: (4) COPD (chronic obstructive pulmonary disease): -Admit to ICU -Patient presenting from home via EMS in respiratory distress, requiring intubation in the ED -On presentation: tachycardic, hypotensive (requiring Levophed infusion), lactic acid 2.3 -CXR showing diffuse parenchymal infiltrate right hemithorax -Influenza and bio fire panel testing negative -CT chest to be obtained -S/P levofloxacin, ceftriaxone, Solu-Medrol in the ED -Follow blood cultures, trend lactic acid -Further management as per ICU (5) DM type 2 (diabetes mellitus, type 2): -Hgb A1c 7.0 04/11/2019 -Diabetic protocol as per ICU (6) Hypertension: -Hypotensive on presentation, requiring Levophed -Holding home antihypertensive agents including amlodipine and lisinopril (7) GERD (gastroesophageal reflux disease): -IV famotidine every 12 hours for GI prophylaxis (8) Hyperlipidemia: -Resume statin when taking p.o. (9) Restless leg syndrome: -Resume pramipexole when taking p.o. (10) DVT prophylaxis: -SQ Lovenox History of Present Illness Chief Complaint: Shortness of Breath Primary Care Provider: Martina Jay MD 63 year old female who presents to the ED for evaluation of shortness of breath. Patient recently admitted to [facility] 04/09 - 04/18 for respiratory failure due to COPD exacerbation and pneumonia. Patient was discharged on doxycycline and prednisone taper. Patient is followed by [facility]. Symptoms were not improving therefore antibiotic course was extended and patient was receiving IM Solu-Medrol at home. Patient has severe shortness of breath this morning and EMS was called and patient was brought to the ED for further evaluation. History is currently unobtainable from the patient as she is intubated and sedated. Upon arrival to the ER, patient was placed on CPAP however respiratory status deteriorated and she required intubation. She also became hypotensive and was placed on Levophed drip. CXR shows diffuse parenchymal infiltrate right hemithorax. Influenza testing is negative, bio fire respiratory panel negative as well. Patient also received nebulizer treatment, IV ceftriaxone, IV levofloxacin, IV Solu-Medrol, IVF. Allergies Allergy/AdvReac Type Severity Reaction Status Date / Time vancomycin Allergy Mild Verified 05/13/19 08:31 No Known Drug Allergies Allergy Unknown n/a Verified 05/13/19 08:31 pollen extracts Allergy Unknown SNEEZE,COUG Verified 05/13/19 08:31 H-WEEDS,GRA SS,POLLEN Home Medications Home Medications Medication Instructions Recorded Confirmed Type Vitron-C 1 tab PO BID 03/03/19 05/13/19 History albuterol sulfate [Ventolin HFA] 2 puff INHALATION Q4 PRN 03/03/19 05/13/19 History amitriptyline 20 mg PO HS 03/03/19 05/13/19 History atorvastatin 40 mg PO QAM 03/03/19 05/13/19 History baclofen 10 mg PO BID PRN 03/03/19 05/13/19 History benzonatate 100 - 200 mg PO TID PRN 03/03/19 05/13/19 History duloxetine [Cymbalta] 20 mg PO BID 03/03/19 05/13/19 History famotidine [Pepcid] 20 mg PO QAM 03/03/19 05/13/19 History ferrous sulfate [iron] 325 mg PO QAM 03/03/19 05/13/19 History furosemide [Lasix] 20 mg PO QAM 03/03/19 05/13/19 History gabapentin 300 mg PO TID 03/03/19 05/13/19 History glimepiride [Amaryl] 2 mg PO QAM 03/03/19 05/13/19 History hydrocodone-acetaminophen [[place]] 1 tab PO Q8 PRN 03/03/19 05/13/19 History loratadine [Claritin] 10 mg PO QAM 03/03/19 05/13/19 History magnesium oxide 400 mg PO QAM 03/03/19 05/13/19 History metformin 1,000 mg PO BID 03/03/19 05/13/19 History montelukast [Singulair] 10 mg PO 03/03/19 05/13/19 History pantoprazole 40 mg PO BID 03/03/19 05/13/19 History potassium chloride 10 meq PO QAM 03/03/19 05/13/19 History pramipexole [Mirapex] 0.5 mg PO QID 03/03/19 05/13/19 History ipratropium 20 mcg-albuterol 100 See Rx Instructions .ROUTE 03/21/19 05/13/19 Rx mcg/actuation mist for inhalation .COMPLEX #4 gram Trelegy Ellipta 1 puffs INH QAM 04/09/19 05/13/19 History amlodipine [Norvasc] 10 mg PO QAM 30 Days #60 tab 04/15/19 05/13/19 Rx ipratropium-albuterol 3 ml INHALATION TID PRN 7 Days #0 04/15/19 05/13/19 Rx ml lisinopril [Zestril] 5 mg PO QAM 30 Days #30 tab 04/15/19 05/13/19 Rx prednisone 10 mg PO UD #30 tab 04/15/19 05/13/19 Rx sodium chloride [Saline Mist] 2 sprays NA Q4 30 Days #1 btl 04/15/19 05/13/19 Rx Past Med/Surg History Medical History Anemia (Acute) Asthma (Acute) Bronchitis (Inactive) Carpal tunnel syndrome (Acute) Chronic diastolic (congestive) heart failure (Inactive) Chronic respiratory failure with hypoxia, on home oxygen therapy 3L COPD (chronic obstructive pulmonary disease) (Acute) COPD exacerbation (Inactive) Depression (Acute) DM type 2 (diabetes mellitus, type 2) Edema (Inactive) GERD (gastroesophageal reflux disease) (Acute) Hiatal hernia (Inactive) History of cervical cancer (Acute) laser surgery to remove cancer per pt Hyperlipidemia (Acute) Hypertension (Acute) Intervertebral disc disorder (Inactive) "C5-C6" Morbid obesity with BMI of 40.0-44.9, adult (Inactive) Obesity hypoventilation syndrome suspected Osteoarthritis (Acute) Restless leg syndrome (Acute) Surgical History History of colonoscopy (Acute) History of esophagogastroduodenoscopy (EGD) (Acute) Family History Sister Diabetes Mother Lung cancer Social History Preferred Language: [place] Communication Ability: Effective 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: No Beliefs That Will Affect Care: None Current Living Situation: Alone Current Living Situation Comment: with daughter Feels Safe at Home: Yes Smoking Status: Former smoker Tobacco Type: cigarettes ; Cigarettes Per Day: 1 pack per 3 days ; Second Hand Exposure: No ; Hx Alcohol Use: No Hx Substance Use: No (UNKNOWN) Childhood Exposure to Second-Hand Smoke: Yes Review of Systems Review of Systems: Unobtainable due to endotracheal tube Physical Exam Constitutional: WD/WN, vitals as above Intubated, sedated Eyes: PERRL, conjunctivae normal, anicteric sclerae ENMT: external ear and nose normal, oropharynx normal Respiratory: normal respiratory effort; no respiratory distress Auscultation: + diminished lung sounds Cardiovascular: Rate/Rhythm: regular rhythm and + tachycardic Vessels: normal peripheral pulses Extremities: + edema (+1 edema BLE) Gastrointestinal (Abdomen): normal bowel sounds, soft, nontender, no hepatosplenomegaly Musculoskeletal: Extremities: no cyanosis and no clubbing Strength unable to be tested due to sedation Skin: no rashes, warm and dry Neurologic: Sedated Psychiatric: Sedated Results & Data Vital Signs (Past 12 Hours) Vital Signs Temp Pulse Pulse Pulse Resp BP BP 05/13/19 10:31 142 H 16 144/76 H 05/13/19 10:26 145 H 16 161/70 H 05/13/19 10:16 151 H 16 127/84 05/13/19 09:59 158 H 18 05/13/19 09:46 166 H 16 137/70 05/13/19 09:23 159 H 22 133/68 05/13/19 09:15 166 H 24 05/13/19 09:12 166 H 21 84/47 L 05/13/19 08:54 146 H 21 05/13/19 08:10 150 H 32 H 05/13/19 08:09 150 H 32 H 05/13/19 08:00 05/13/19 07:55 36.7 C 140 H 26 H 150/103 H Pulse Ox 05/13/19 10:31 97 05/13/19 10:26 97 05/13/19 10:16 96 05/13/19 09:59 95 05/13/19 09:46 100 05/13/19 09:23 100 05/13/19 09:15 100 05/13/19 09:12 98 05/13/19 08:54 100 05/13/19 08:10 99 05/13/19 08:09 99 05/13/19 08:00 100 05/13/19 07:55 98 Code Status & VTE Plan Code Status Patient is a full code as per living will in patient's [facility] chart dated 2006 and also as per discussion with patient's daughter who is the bedside. VTE Prophylaxis Plan VTE Prophylaxis will be ordered: Yes Supervising Physician Co-Signing Physician Notes Pt was seen in the Medical ICU. Agreed with Scarlet FAULKNER assessment and plan. 63 yo female with PMH of HTN, COPD, diabetes with recent hospitalization for respiratory failure presented to the ER with worsening SOB. CXR on admission showed diffuse parenchymal infiltrate right hemithorax. She was placed on Cpap upon arrived. Since her respiratory worsening on Cpap. She was intubated in the ER. Influenza PCR and biofire came back negative. I saw the patient in the ICU. Case discussed with Dr. Giordano who planned who plan to bronch him and collected specimen for cov 19. Received Levofloxacin, ceftriaxone, Solu-Medrol in the ED. Blood cx collected in the ER. Repeat lactic acid trending down to normal. Will consider to start on abx for the pneumonia in am since already received Levaquin and Rocephin in the ER. If nasal screen MRSA positive, will consider to add Vanco. She became hypotensive and was placed on pressor. Will continue monitor closely. Currently pt is on isolation in the ICU. MD Manisha
[2019-05-13 11:18] LABS: RBC Urine 0-4 /hpf (0-4)
[2019-05-13 11:19] LABS: Bacteria Urine Negative (Negative)
[2019-05-13 11:27] LABS: Adenovirus PCR Not Detected (NotDetected); Coronavirus 229E PCR Not Detected (NotDetected); Coronavirus HKU1 PCR Not Detected (NotDetected); Coronavirus NL63 PCR Not Detected (NotDetected); Coronavirus OC43PCR Not Detected (NotDetected); Human Metapneumovirus PCR Not Detected (NotDetected); Influenza A PCR Not Detected (NotDetected); Influenza B PCR Not Detected (NotDetected); Parainfluenza Virus 1 PCR Not Detected (NotDetected); Parainfluenza Virus 2 PCR Not Detected (NotDetected); Parainfluenza Virus 3 PCR Not Detected (NotDetected); Parainfluenza Virus 4 PCR Not Detected (NotDetected); Respiratory Syncytial VirusPCR Not Detected (NotDetected); Rhinovirus/Enterovirus PCR Not Detected (NotDetected)
[2019-05-13 11:28] LABS: Bordetella parapertussis PCR Not Detected (NotDetected); Bordetella pertussis PCR Not Detected (NotDetected); Chlamydia pneumoniae PCR Not Detected (NotDetected); Mycoplasma pneumoniae PCR Not Detected (NotDetected)
[2019-05-13] MEDS: PROPOFOL BOLUS FROM BAG IV PRN ×2 (11:28→21:39)
[2019-05-13] MEDS ORDERED: VECURONIUM BROMIDE 10 MG VIAL ONE ×2 (12:20→23:19)
[2019-05-13] MEDS ORDERED: VECURONIUM BROMIDE 10 MG VIAL IV STA ×2 (12:20→23:18)
--- NOTE | 2019-05-13 12:37 | XRay Report ---
XR chest 1V portable CLINICAL HISTORY: hypoxic dyspnea COMPARISON STUDY: 05/13/2019 9:51 AM FINDINGS: Slight increasing consolidative changes of the right mid to lower lung. Slightly progressiv e left basilar infiltrative change. Endotracheal tube remains 3 cm above the romina. IMPRESSION: Progressive consolidative change right mid to lower lung. Mildly progressive infiltrativ e changes left base. Endotracheal tube 3 cm above the romina. ACT 112: Negative or not required by law. The above report was generated using voice recognition software. It may contain grammatical, syntax or spelling errors. Electronically signed by: Fuentes Lewis M.D. 05/13/2019 12:35 PM
[2019-05-13 12:41] LABS: iSTAT Arterial Blood Gas HCO3 27 meg/L (19-24); iSTAT Arterial Blood Gas pCO2 62 mmHg (35-46); iSTAT Arterial Blood Gas pH 7.25 (7.35-7.45); iSTAT Arterial Blood Gas pO2 43 mmHg (80-95); iSTAT Carbon Dioxide 29 mmol/L (24-31); iSTAT Hematocrit 29 % (37-47); iSTAT Hemoglobin 9.9 g/dl (12.0-16.0); iSTAT Potassium 3.3 mmol/L (3.3-5.0); iSTAT Sodium 143 mmol/L (135-144)
[2019-05-13 12:41] LABS: iSTAT Arterial Blood Gas HCO3 27 meg/L (19-24); iSTAT Arterial Blood Gas pCO2 58 mmHg (35-46); iSTAT Arterial Blood Gas pH 7.27 (7.35-7.45); iSTAT Arterial Blood Gas pO2 46 mmHg (80-95); iSTAT Carbon Dioxide 29 mmol/L (24-31); iSTAT Hematocrit 28 % (37-47); iSTAT Hemoglobin 9.5 g/dl (12.0-16.0); iSTAT Potassium 3.4 mmol/L (3.3-5.0); iSTAT Sodium 141 mmol/L (135-144)
[2019-05-13] MEDS ORDERED: METOPROLOL TARTRATE 1 MG/ML VIAL IV ONE (13:33)
[2019-05-13] MEDS ORDERED: METOPROLOL TARTRATE 1 MG/ML VIAL IV STA (13:33)
--- NOTE | 2019-05-13 13:33 | Critical Care Consultation ---
Date of Consultation May 13, 2019 Assessment & Plan (1) Acute on chronic respiratory failure with hypoxia: Angelique Kaminski 63 y/o F w/ PMH of obesity, COPD on 3L home O2, asthma, HTN, HLD, T2DM, and Restless leg syndrome; presented to the hospital for worsening shortness of breath. Negative Influenza, and Negative BioFire panel, COVID washings collected from bronch NEURO: - CAM ICU: unable to assess due to intubation and sedation - sedation with Propofol CARDIAC/VASCULAR: - EKG 05/12 demonstrated sinus tachycardia with rate of 169, QTC 472 - numerous risk factors (HTN, HLD, T2DM) - on Levofed, and phenylephrine - wean pressors as tolerated maintaining MAP>60 - monitor on telemetry RESPIRATORY: - patient intubated in ED - Influenza negative, BioFire negative - Bronch washings collected, COVID pending - VBG: pH 7.24, CO2 58, O253, HCO3 25 - Vent settings RR 22, PEEP 10, Tidal Volume 450, FiO2 60 GI/NUTRITION: - NPO - Prophylaxis: famotidine RENAL/LYTES: - Cr stable as compared from last hospitalization - no significant electrolyte abnormalities - continue to monitor daily with BMPs : - travis in place - continue to monitor strict I/Os ENDO: - T2DM - permissive hyperglycemia in the setting of HEME: - H&H stable as compared to last visit - continue to monitor ID: - negative influenza, negative BioFire - nasal MRSA pending - received Levaquin, and Rocephin in ED LINES/IV ACCESS: - PIVs - R femoral - endotracheal tube - Travis catheter DVT PROPHYLAXIS: - SQ lovenox (2) COPD (chronic obstructive pulmonary disease): (3) Hypertension: (4) Hyperlipidemia: (5) Restless leg syndrome: (6) DM type 2 (diabetes mellitus, type 2): (7) Sepsis: Supervising Physician Co-Signing Physician Notes Dr. Dc was resident physician during care of patient. I separately evaluated patient for appiah portions of the history and the exam. I was present during the critical portion of medical decision making, and I discussed the case with the resident. I generally agree with the findings and plan. Patient is at high risk for COVID-19, risk factors include severe multilobar not explained by alternative diagnosis. Patient was admitted 1 month ago treated with an extended course of antibiotics with coverage for atypical organisms. I believe that alone increases her risk for baseline viral infections given post antibiotic effect to prevent subsequent bacterial infection. I discussed the case with Dr. Burgos of [facility] infectious disease. She is meeting several classic criteria including leukopenia and fever. She has been placed in airborne isolation, during bronchoscopy the airways did not show signs of purulence which raises concern for viral process, eosinophilic pneumonitis: I think unlikely, vaping injury: Unlikely, diffuse alveolar hemorrhage again unlikely. We will be sending this specimen to [place] for [facility] testing. The patient is considered person under inve stigation. I have updated the family members, the daughter Cameron reports that the patient lives with her, their son, and her . I have instructed Isabelle that these individuals need to socially isolate and self monitor. If they are to become febrile they need to contact their physician or medical provider via telephone for further instructions. Patient has been tachycardic and hypotensive, we have the patient on phenylephrine which did give some reduction in her heart rate. We will also give small aliquots of beta-blockers. She has significant structural airway disease and severe COPD, at baseline regardless of infection I feel the patient is at high risk for morbidity and mortality. I would not place the patient on steroids at this time as COVID-19 and viral infections appear to worsen with steroid utilization. History of Present Illness Attending Physician: Isabella Dyer MD History of Present Illness Angelique Kaminski 63 y/o F who presented to the ED for evaluation of shortness of breath; recently admitted to [facility] 04/09 - 04/18 for respiratory failure due to COPD exacerbation and pneumonia, at that time was discharged on doxycycline and prednisone taper. In ED, she was found to initially be hypoxic; initially trialed on CPAP, trialed on BiPAP, before her blood pressures started to decline, and a right femoral central line, subsequently started on levophed. Intubated and sedated with propofol. Per family, no recent travel out of [place]; CXR in ED demonstrated diffuse parenchymal infiltrate right hemithorax. Influenza testing is negative, [facility] respiratory panel negative. Dr. Giordano has been in contact with multiple parties regarding patient's care Allergies Allergy/AdvReac Type Severity Reaction Status Date / Time vancomycin Allergy Mild Verified 05/13/19 08:31 No Known Drug Allergies Allergy Unknown n/a Verified 05/13/19 08:31 pollen extracts Allergy Unknown SNEEZE,COUG Verified 05/13/19 08:31 H-WEEDS,GRA SS,POLLEN Home Medications Home Medications Medication Instructions Recorded Confirmed Type Vitron-C 1 tab PO BID 03/03/19 05/13/19 History albuterol sulfate [Ventolin HFA] 2 puff INHALATION Q4 PRN 03/03/19 05/13/19 History amitriptyline 20 mg PO HS 03/03/19 05/13/19 History atorvastatin 40 mg PO QAM 03/03/19 05/13/19 History baclofen 10 mg PO BID PRN 03/03/19 05/13/19 History benzonatate 100 - 200 mg PO TID PRN 03/03/19 05/13/19 History duloxetine [Cymbalta] 20 mg PO BID 03/03/19 05/13/19 History famotidine [Pepcid] 20 mg PO QAM 03/03/19 05/13/19 History ferrous sulfate [iron] 325 mg PO QAM 03/03/19 05/13/19 History furosemide [Lasix] 20 mg PO QAM 03/03/19 05/13/19 History gabapentin 300 mg PO TID 03/03/19 05/13/19 History glimepiride [Amaryl] 2 mg PO QAM 03/03/19 05/13/19 History hydrocodone-acetaminophen [Chamberlain] 1 tab PO Q8 PRN 03/03/19 05/13/19 History loratadine [Claritin] 10 mg PO QAM 03/03/19 05/13/19 History magnesium oxide 400 mg PO QAM 03/03/19 05/13/19 History metformin 1,000 mg PO BID 03/03/19 05/13/19 History montelukast [Singulair] 10 mg PO HS 03/03/19 05/13/19 History pantoprazole 40 mg PO BID 03/03/19 05/13/19 History potassium chloride 10 meq PO QAM 03/03/19 05/13/19 History pramipexole [Mirapex] 0.5 mg PO QID 03/03/19 05/13/19 History ipratropium 20 mcg-albuterol 100 See Rx Instructions .ROUTE 03/21/19 05/13/19 Rx mcg/actuation mist for inhalation .COMPLEX #4 gram Trelegy Ellipta 1 puffs INH QAM 04/09/19 05/13/19 History amlodipine [Norvasc] 10 mg PO QAM 30 Days #60 tab 04/15/19 05/13/19 Rx ipratropium-albuterol 3 ml INHALATION TID PRN 7 Days #0 04/15/19 05/13/19 Rx ml lisinopril [Zestril] 5 mg PO QAM 30 Days #30 tab 04/15/19 05/13/19 Rx prednisone 10 mg PO UD #30 tab 04/15/19 05/13/19 Rx sodium chloride [Saline Mist] 2 sprays NA Q4 30 Days #1 btl 04/15/19 05/13/19 Rx Patient History Medical History Anemia (Acute) Asthma (Acute) Bronchitis (Inactive) Carpal tunnel syndrome (Acute) Chronic diastolic (congestive) heart failure (Inactive) Chronic respiratory failure with hypoxia, on home oxygen therapy 3L COPD (chronic obstructive pulmonary disease) (Acute) COPD exacerbation (Inactive) Depression (Acute) DM type 2 (diabetes mellitus, type 2) Edema (Inactive) GERD (gastroesophageal reflux disease) (Acute) Hiatal hernia (Inactive) History of cervical cancer (Acute) laser surgery to remove cancer per pt Hyperlipidemia (Acute) Hypertension (Acute) Intervertebral disc disorder (Inactive) "C5-C6" Morbid obesity with BMI of 40.0-44.9, adult (Inactive) Obesity hypoventilation syndrome suspected Osteoarthritis (Acute) Restless leg syndrome (Acute) Surgical History History of colonoscopy (Acute) History of esophagogastroduodenoscopy (EGD) (Acute) Family History Sister Diabetes Mother Lung cancer Social History Preferred Language: Slovenian Communication Ability: Effective Peanut Blancher Required: No Beliefs That Will Affect Care: None Current Living Situation: Alone Current Living Situation Comment: with daughter Other Information That Helps Us Care for You: No Feels Safe at Home: Yes Smoking Status: Former smoker Tobacco Type: cigarettes ; Cigarettes Per Day: 1 pack per 3 days ; Second Hand Exposure: No ; Hx Alcohol Use: No Hx Substance Use: No (UNKNOWN) Childhood Exposure to Second-Hand Smoke: Yes Physical Exam Physical Exam: General: Sedated: GCS Glascow Coma Scale: Eyes: 3, Verbal 1T, Motor 5, Total 9T. nontoxic. Skin: Warm, dry, Head: Atraumatic Ears, nose, mouth and throat: Obscured by endotracheal tube Cardiovascular: Decreased peripheral perfusion, increased capillary refill Respiratory: Coarse sounds bilaterally Gastrointestinal: Non distended Musculoskeletal: No deformity Results & Data Vital Signs (Past 12 Hours) Vital Signs Temp Pulse Pulse Pulse Resp BP BP 05/13/19 12:32 138 H 111/80 05/13/19 12:30 136 H 05/13/19 12:15 138 H 126/60 05/13/19 12:00 139 H 112/80 05/13/19 11:45 137 H 118/76 05/13/19 11:30 135 H 121/85 05/13/19 11:16 139 H 139/97 05/13/19 11:15 134 H 05/13/19 11:00 137 H 126/83 05/13/19 10:45 140 H 126/83 05/13/19 10:31 142 H 16 144/76 H 05/13/19 10:30 143 H 144/76 H 05/13/19 10:26 145 H 16 161/70 H 05/13/19 10:23 146 H 161/70 H 05/13/19 10:20 151 H 156/84 H 05/13/19 10:16 151 H 16 127/84 05/13/19 10:15 152 H 16 05/13/19 10:11 153 H 16 127/84 05/13/19 10:00 162 H 16 198/186 H 05/13/19 09:59 158 H 18 05/13/19 09:58 152 H 16 203/97 H 05/13/19 09:54 172 H 34 H 189/171 H 05/13/19 09:50 170 H 18 246/171 H 05/13/19 09:48 170 H 23 219/122 H 05/13/19 09:46 157 H 166 H 19 137/70 137/70 05/13/19 09:45 148 H 14 05/13/19 09:43 157 H 25 H 122/90 05/13/19 09:39 155 H 25 H 119/88 05/13/19 09:31 159 H 14 70/59 L 05/13/19 09:30 164 H 28 H 05/13/19 09:27 160 H 20 118/97 05/13/19 09:23 159 H 22 133/68 05/13/19 09:19 160 H 24 133/68 05/13/19 09:16 163 H 24 123/108 H 05/13/19 09:15 165 H 166 H 21 05/13/19 09:12 166 H 21 84/47 L 05/13/19 09:10 166 H 22 84/47 L 05/13/19 09:09 163 H 13 77/49 L 05/13/19 09:00 167 H 13 05/13/19 08:54 146 H 21 05/13/19 08:45 164 H 33 H 05/13/19 08:30 157 H 32 H 05/13/19 08:15 154 H 31 H 05/13/19 08:10 150 H 32 H 05/13/19 08:09 150 H 32 H 05/13/19 08:07 150 H 29 H 150/103 H 05/13/19 08:00 145 H 30 H 05/13/19 07:55 36.7 C 140 H 26 H 150/103 H Pulse Ox 05/13/19 12:32 100 05/13/19 12:30 84 L 05/13/19 12:15 79 L 05/13/19 12:00 95 05/13/19 11:45 95 05/13/19 11:30 88 L 05/13/19 11:16 93 05/13/19 11:15 93 05/13/19 11:00 95 05/13/19 10:45 96 05/13/19 10:31 97 05/13/19 10:30 96 05/13/19 10:26 97 05/13/19 10:23 96 05/13/19 10:20 96 05/13/19 10:16 96 05/13/19 10:15 96 05/13/19 10:11 96 05/13/19 10:00 97 05/13/19 09:59 95 05/13/19 09:58 94 05/13/19 09:54 96 05/13/19 09:50 94 05/13/19 09:48 100 05/13/19 09:46 86 L 05/13/19 09:45 100 05/13/19 09:43 99 05/13/19 09:39 100 05/13/19 09:31 100 05/13/19 09:30 100 05/13/19 09:27 100 05/13/19 09:23 100 05/13/19 09:19 100 05/13/19 09:16 100 05/13/19 09:15 100 05/13/19 09:12 98 05/13/19 09:10 100 05/13/19 09:09 100 05/13/19 09:00 100 05/13/19 08:54 100 05/13/19 08:45 100 05/13/19 08:30 100 05/13/19 08:15 98 05/13/19 08:10 99 05/13/19 08:09 99 05/13/19 08:07 100 05/13/19 08:00 92 05/13/19 07:55 98 Laboratory Results 05/13/19 05/13/19 05/13/19 Range/Units 18:20 18:18 17:55 WBC (4.8-10.8) K/uL RBC (4.2-5.4) M/uL Hgb (12.0-16.0) g/dL POC Hgb 10.5 L (12.0-16.0) g/dl Hct (37-47) % POC Hct 31 L (37-47) % MCV (80-100) fL MCH (25-34) pg MCHC (32-36) g/dL RDW Std Deviation (36.4-46.3) fL RDW Coeff of Angelo (11.5-14.5) % Plt Count (130-400) K/uL MPV (7.4-10.4) fL Immature Gran % (Auto) % Neut % (Auto) % Lymph % (Auto) % [place] % (Auto) % Eos % (Auto) % Baso % (Auto) % Immature Gran # (Auto) (0.00-0.02) K/uL Neut # (Auto) (1.4-6.5) K/uL Lymph # (Auto) (1.2-3.4) K/uL [place] # (Auto) (0.11-0.59) K/uL Eos # (Auto) (0-0.5) K/uL Baso # (Auto) (0-0.2) K/uL Absolute Nucleated RBC (0-0) K/uL Nucleated RBC % (auto) % Toxic Vacuolation Dohle Bodies PT (9.0-12.0) Seconds INR (0.9-1.1) APTT (21.0-31.0) Seconds PTT Ratio Sample Site L Radial POC pH 7.24 L (7.35-7.45) POC pCO2 58 H (35-46) mmHg POC pO2 53 L (80-95) mmHg POC HCO3 25 H (19-24) jillian/L POC Total CO2 27 (24-31) mmol/L POC Base Excess -2.0 (-9-1.8) jillian/L ABG pH (Temp Correct) 7.225 L (7.35-7.45) ABG pCO2 (Temp Corrct 62 H (35-46) mmHg POC ABG pO2 at Pt Temp 58 Ziyad Test Pass VBG pH VBG pCO2 VBG pO2 VBG HCO3 VBG O2 Saturation VBG Base Excess Barometric Pressure O2 Delivery Device Ventilator POC O2 Rate 22 Minute Ventilation 10.8 POC FiO2 60 % Tidal Volume 450 PEEP 10 POC Sodium 134 L (135-144) mmol/L Sodium (136-145) mmol/L POC Potassium 4.2 (3.3-5.0) mmol/L Potassium (3.5-5.1) mmol/L Chloride (98-107) mmol/L Carbon Dioxide (21-32) mmol/L Anion Gap (3-11) BUN (7-18) mg/dl Creatinine (0.6-1.2) mg/dl Est Cr Clr Drug Dosing ml/min Est GFR ( Amer) Est GFR (Non-Af Amer) BUN/Creatinine Ratio (10-20) Glucose (70-99) mg/dl POC Glucose (other) 237 H (70-99) mg/dl Lactate (0.4-2.0) mmol/L Calcium (8.5-10.1) mg/dl Magnesium (1.8-2.4) mg/dl Total Bilirubin (0.2-1) mg/dl AST (15-37) U/L ALT (12-78) U/L Alkaline Phosphatase (45-117) U/L Troponin I (0-0.045) ng/ml NT-Pro-B Natriuret Pep (0-900) pg/ml Total Protein (6.4-8.2) gm/dl Albumin (3.4-5.0) gm/dl Globulin (2.5-4.0) gm/dl Albumin/Globulin Ratio (0.9-2) Urine Color Urine Appearance (Clear) Urine pH (4.5-7.5) Ur Specific [place] (1.000-1.030) Urine Protein (Negative) Urine Glucose (UA) (Negative) Urine Ketones (Negative) Urine Blood (Negative) Urine Nitrite (Negative) Urine Bilirubin (Negative) Urine Urobilinogen (Negative) Ur Leukocyte Esterase (Negative) Urine WBC (Auto) (0-5) /hpf Urine RBC (Auto) (0-4) /hpf U Hyaline Cast (Auto) (0-5) /lpf U Epithel Cells (Auto) (0-5) /lpf Urine Bacteria (Auto) (Negative) Urine RBC (0-4) /hpf Urine WBC (0-5) /hpf Ur Epithelial Cells (0-5) /lpf Ur Renal Epithelial Cell (0-5) /lpf Urine Bacteria (Negative) Granular Casts (0) /lpf WBC Casts (0) /lpf Nasal Screen MRSA (PCR) Pending Adenovirus (PCR) (NotDetected) B. pertussis DNA (PCR) (NotDetected) B.parapertussis DNA PCR (NotDetected) C. pneumoniae DNA (PCR) (NotDetected) Coronavirus OC43 (PCR) (NotDetected) Coronavirus HKU1 (PCR) (NotDetected) Coronavirus 229E (PCR) (NotDetected) Coronavirus NL63 (PCR) (NotDetected) Human Metapneumovir PCR (NotDetected) Influenza Type A (PCR) (Neg) Influenza Type B (PCR) (Neg) M. pneumoniae (PCR) (NotDetected) Parainfluenza 1 (PCR) (NotDetected) Parainfluenza 2 (PCR) (NotDetected) Parainfluenza 3 (PCR) (NotDetected) Parainfluenza 4 (PCR) (NotDetected) RSV (PCR) (NotDetected) Entero/Rhino (PCR) (NotDetected) 05/13/19 05/13/19 05/13/19 Range/Units 14:13 13:00 12:07 WBC (4.8-10.8) K/uL RBC (4.2-5.4) M/uL Hgb (12.0-16.0) g/dL POC Hgb 9.5 L (12.0-16.0) g/dl Hct (37-47) % POC Hct 28 L (37-47) % MCV (80-100) fL MCH (25-34) pg MCHC (32-36) g/dL RDW Std Deviation (36.4-46.3) fL RDW Coeff of Angelo (11.5-14.5) % Plt Count (130-400) K/uL MPV (7.4-10.4) fL Immature Gran % (Auto) % Neut % (Auto) % Lymph % (Auto) % [place] % (Auto) % Eos % (Auto) % Baso % (Auto) % Immature Gran # (Auto) (0.00-0.02) K/uL Neut # (Auto) (1.4-6.5) K/uL Lymph # (Auto) (1.2-3.4) K/uL [place] # (Auto) (0.11-0.59) K/uL Eos # (Auto) (0-0.5) K/uL Baso # (Auto) (0-0.2) K/uL Absolute Nucleated RBC (0-0) K/uL Nucleated RBC % (auto) % Toxic Vacuolation Dohle Bodies PT (9.0-12.0) Seconds INR (0.9-1.1) APTT (21.0-31.0) Seconds PTT Ratio Sample Site POC pH 7.27 L (7.35-7.45) POC pCO2 58 H (35-46) mmHg POC pO2 46 L (80-95) mmHg POC HCO3 27 H (19-24) jillian/L POC Total CO2 29 (24-31) mmol/L POC Base Excess 0.0 (-9-1.8) jillian/L ABG pH (Temp Correct) (7.35-7.45) ABG pCO2 (Temp Corrct (35-46) mmHg POC ABG pO2 at Pt Temp Ziyad Test VBG pH VBG pCO2 VBG pO2 VBG HCO3 VBG O2 Saturation VBG Base Excess Barometric Pressure O2 Delivery Device POC O2 Rate Minute Ventilation POC FiO2 % Tidal Volume PEEP POC Sodium 141 (135-144) mmol/L Sodium (136-145) mmol/L POC Potassium 3.4 (3.3-5.0) mmol/L Potassium (3.5-5.1) mmol/L Chloride (98-107) mmol/L Carbon Dioxide (21-32) mmol/L Anion Gap (3-11) BUN (7-18) mg/dl Creatinine (0.6-1.2) mg/dl Est Cr Clr Drug Dosing ml/min Est GFR ( Amer) Est GFR (Non-Af Amer) BUN/Creatinine Ratio (10-20) Glucose (70-99) mg/dl POC Glucose (other) (70-99) mg/dl Lactate 1.6 (0.4-2.0) mmol/L Calcium (8.5-10.1) mg/dl Magnesium (1.8-2.4) mg/dl Total Bilirubin (0.2-1) mg/dl AST (15-37) U/L ALT (12-78) U/L Alkaline Phosphatase (45-117) U/L Troponin I (0-0.045) ng/ml NT-Pro-B Natriuret Pep (0-900) pg/ml Total Protein (6.4-8.2) gm/dl Albumin (3.4-5.0) gm/dl Globulin (2.5-4.0) gm/dl Albumin/Globulin Ratio (0.9-2) Urine Color Dark Yellow Urine Appearance Cloudy A (Clear) Urine pH 5.0 (4.5-7.5) Ur Specific [place] 1.028 (1.000-1.030) Urine Protein 2+ H (Negative) Urine Glucose (UA) Negative (Negative) Urine Ketones Trace H (Negative) Urine Blood Negative (Negative) Urine Nitrite Negative (Negative) Urine Bilirubin Negative (Negative) Urine Urobilinogen Negative (Negative) Ur Leukocyte Esterase Negative (Negative) Urine WBC (Auto) 5-10 H (0-5) /hpf Urine RBC (Auto) 5-10 H (0-4) /hpf U Hyaline Cast (Auto) 10-30 H (0-5) /lpf U Epithel Cells (Auto) >30 H (0-5) /lpf Urine Bacteria (Auto) Negative (Negative) Urine RBC (0-4) /hpf Urine WBC (0-5) /hpf Ur Epithelial Cells (0-5) /lpf Ur Renal Epithelial Cell 0-5 (0-5) /lpf Urine Bacteria (Negative) Granular Casts 5-10 H (0) /lpf WBC Casts 1-5 H (0) /lpf Nasal Screen MRSA (PCR) Adenovirus (PCR) (NotDetected) B. pertussis DNA (PCR) (NotDetected) B.parapertussis DNA PCR (NotDetected) C. pneumoniae DNA (PCR) (NotDetected) Coronavirus OC43 (PCR) (NotDetected) Coronavirus HKU1 (PCR) (NotDetected) Coronavirus 229E (PCR) (NotDetected) Coronavirus NL63 (PCR) (NotDetected) Human Metapneumovir PCR (NotDetected) Influenza Type A (PCR) (Neg) Influenza Type B (PCR) (Neg) M. pneumoniae (PCR) (NotDetected) Parainfluenza 1 (PCR) (NotDetected) Parainfluenza 2 (PCR) (NotDetected) Parainfluenza 3 (PCR) (NotDetected) Parainfluenza 4 (PCR) (NotDetected) RSV (PCR) (NotDetected) Entero/Rhino (PCR) (NotDetected) 05/13/19 05/13/19 05/13/19 Range/Units 11:48 11:26 10:29 WBC (4.8-10.8) K/uL RBC (4.2-5.4) M/uL Hgb (12.0-16.0) g/dL POC Hgb 9.9 L (12.0-16.0) g/dl Hct (37-47) % POC Hct 29 L (37-47) % MCV (80-100) fL MCH (25-34) pg MCHC (32-36) g/dL RDW Std Deviation (36.4-46.3) fL RDW Coeff of Angelo (11.5-14.5) % Plt Count (130-400) K/uL MPV (7.4-10.4) fL Immature Gran % (Auto) % Neut % (Auto) % Lymph % (Auto) % [place] % (Auto) % Eos % (Auto) % Baso % (Auto) % Immature Gran # (Auto) (0.00-0.02) K/uL Neut # (Auto) (1.4-6.5) K/uL Lymph # (Auto) (1.2-3.4) K/uL [place] # (Auto) (0.11-0.59) K/uL Eos # (Auto) (0-0.5) K/uL Baso # (Auto) (0-0.2) K/uL Absolute Nucleated RBC (0-0) K/uL Nucleated RBC % (auto) % Toxic Vacuolation Dohle Bodies PT (9.0-12.0) Seconds INR (0.9-1.1) APTT (21.0-31.0) Seconds PTT Ratio Sample Site POC pH 7.25 L (7.35-7.45) POC pCO2 62 H (35-46) mmHg POC pO2 43 L (80-95) mmHg POC HCO3 27 H (19-24) jillian/L POC Total CO2 29 (24-31) mmol/L POC Base Excess 0.0 (-9-1.8) jillian/L ABG pH (Temp Correct) (7.35-7.45) ABG pCO2 (Temp Corrct (35-46) mmHg POC ABG pO2 at Pt Temp Ziyad Test VBG pH VBG pCO2 VBG pO2 VBG HCO3 VBG O2 Saturation VBG Base Excess Barometric Pressure O2 Delivery Device POC O2 Rate Minute Ventilation POC FiO2 % Tidal Volume PEEP POC Sodium 143 (135-144) mmol/L Sodium (136-145) mmol/L POC Potassium 3.3 (3.3-5.0) mmol/L Potassium (3.5-5.1) mmol/L Chloride (98-107) mmol/L Carbon Dioxide (21-32) mmol/L Anion Gap (3-11) BUN (7-18) mg/dl Creatinine (0.6-1.2) mg/dl Est Cr Clr Drug Dosing ml/min Est GFR ( Amer) Est GFR (Non-Af Amer) BUN/Creatinine Ratio (10-20) Glucose (70-99) mg/dl POC Glucose (other) (70-99) mg/dl Lactate 1.2 (0.4-2.0) mmol/L Calcium (8.5-10.1) mg/dl Magnesium (1.8-2.4) mg/dl Total Bilirubin (0.2-1) mg/dl AST (15-37) U/L ALT (12-78) U/L Alkaline Phosphatase (45-117) U/L Troponin I (0-0.045) ng/ml NT-Pro-B Natriuret Pep (0-900) pg/ml Total Protein (6.4-8.2) gm/dl Albumin (3.4-5.0) gm/dl Globulin (2.5-4.0) gm/dl Albumin/Globulin Ratio (0.9-2) Urine Color Yellow Urine Appearance Clear (Clear) Urine pH 5.0 (4.5-7.5) Ur Specific [place] >= 1.030 (1.000-1.030) Urine Protein Trace H (Negative) Urine Glucose (UA) 3+ H (Negative) Urine Ketones Negative (Negative) Urine Blood Negative (Negative) Urine Nitrite Negative (Negative) Urine Bilirubin Negative (Negative) Urine Urobilinogen Negative (Negative) Ur Leukocyte Esterase Negative (Negative) Urine WBC (Auto) (0-5) /hpf Urine RBC (Auto) (0-4) /hpf U Hyaline Cast (Auto) (0-5) /lpf U Epithel Cells (Auto) (0-5) /lpf Urine Bacteria (Auto) (Negative) Urine RBC 0-4 (0-4) /hpf Urine WBC 5-10 H (0-5) /hpf Ur Epithelial Cells 10-20 H (0-5) /lpf Ur Renal Epithelial Cell (0-5) /lpf Urine Bacteria Negative (Negative) Granular Casts (0) /lpf WBC Casts (0) /lpf Nasal Screen MRSA (PCR) Adenovirus (PCR) (NotDetected) B. pertussis DNA (PCR) (NotDetected) B.parapertussis DNA PCR (NotDetected) C. pneumoniae DNA (PCR) (NotDetected) Coronavirus OC43 (PCR) (NotDetected) Coronavirus HKU1 (PCR) (NotDetected) Coronavirus 229E (PCR) (NotDetected) Coronavirus NL63 (PCR) (NotDetected) Human Metapneumovir PCR (NotDetected) Influenza Type A (PCR) (Neg) Influenza Type B (PCR) (Neg) M. pneumoniae (PCR) (NotDetected) Parainfluenza 1 (PCR) (NotDetected) Parainfluenza 2 (PCR) (NotDetected) Parainfluenza 3 (PCR) (NotDetected) Parainfluenza 4 (PCR) (NotDetected) RSV (PCR) (NotDetected) Entero/Rhino (PCR) (NotDetected) 05/13/19 05/13/19 05/13/19 Range/Units 10:01 09:37 09:33 WBC (4.8-10.8) K/uL RBC (4.2-5.4) M/uL Hgb (12.0-16.0) g/dL POC Hgb (12.0-16.0) g/dl Hct (37-47) % POC Hct (37-47) % MCV (80-100) fL MCH (25-34) pg MCHC (32-36) g/dL RDW Std Deviation (36.4-46.3) fL RDW Coeff of Angelo (11.5-14.5) % Plt Count (130-400) K/uL MPV (7.4-10.4) fL Immature Gran % (Auto) % Neut % (Auto) % Lymph % (Auto) % [place] % (Auto) % Eos % (Auto) % Baso % (Auto) % Immature Gran # (Auto) (0.00-0.02) K/uL Neut # (Auto) (1.4-6.5) K/uL Lymph # (Auto) (1.2-3.4) K/uL [place] # (Auto) (0.11-0.59) K/uL Eos # (Auto) (0-0.5) K/uL Baso # (Auto) (0-0.2) K/uL Absolute Nucleated RBC (0-0) K/uL Nucleated RBC % (auto) % Toxic Vacuolation Dohle Bodies PT (9.0-12.0) Seconds INR (0.9-1.1) APTT (21.0-31.0) Seconds PTT Ratio Sample Site POC pH (7.35-7.45) POC pCO2 (35-46) mmHg POC pO2 (80-95) mmHg POC HCO3 (19-24) jillian/L POC Total CO2 (24-31) mmol/L POC Base Excess (-9-1.8) jillian/L ABG pH (Temp Correct) (7.35-7.45) ABG pCO2 (Temp Corrct (35-46) mmHg POC ABG pO2 at Pt Temp Ziyad Test VBG pH 7.33 L VBG pCO2 57 H VBG pO2 35 VBG HCO3 29 VBG O2 Saturation 62.0 VBG Base Excess 2.4 Barometric Pressure 742.0 O2 Delivery Device POC O2 Rate Minute Ventilation POC FiO2 % [place] Volume PEEP POC Sodium (135-144) mmol/L Sodium 141 (136-145) mmol/L POC Potassium (3.3-5.0) mmol/L Potassium 3.9 (3.5-5.1) mmol/L Chloride 107 (98-107) mmol/L Carbon Dioxide 29 (21-32) mmol/L Anion Gap 5.0 (3-11) BUN 18 (7-18) mg/dl Creatinine 1.14 (0.6-1.2) mg/dl Est Cr Clr Drug Dosing 60.5 ml/min Est GFR ( Amer) 58.9 Est GFR (Non-Af Amer) 50.8 BUN/Creatinine Ratio 15.5 (10-20) Glucose 152 H (70-99) mg/dl POC Glucose (other) (70-99) mg/dl Lactate (0.4-2.0) mmol/L Calcium 9.1 (8.5-10.1) mg/dl Magnesium 1.7 L (1.8-2.4) mg/dl Total Bilirubin 0.4 (0.2-1) mg/dl AST 11 L (15-37) U/L ALT 29 (12-78) U/L Alkaline Phosphatase 82 (45-117) U/L Troponin I < 0.015 (0-0.045) ng/ml NT-Pro-B Natriuret Pep 175 (0-900) pg/ml Total Protein 6.5 (6.4-8.2) gm/dl Albumin 2.5 L (3.4-5.0) gm/dl Globulin 4.0 (2.5-4.0) gm/dl Albumin/Globulin Ratio 0.6 L (0.9-2) Urine Color Urine Appearance (Clear) Urine pH (4.5-7.5) Ur Specific [place] (1.000-1.030) Urine Protein (Negative) Urine Glucose (UA) (Negative) Urine Ketones (Negative) Urine Blood (Negative) Urine Nitrite (Negative) Urine Bilirubin (Negative) Urine Urobilinogen (Negative) Ur Leukocyte Esterase (Negative) Urine WBC (Auto) (0-5) /hpf Urine RBC (Auto) (0-4) /hpf U Hyaline Cast (Auto) (0-5) /lpf U Epithel Cells (Auto) (0-5) /lpf Urine Bacteria (Auto) (Negative) Urine RBC (0-4) /hpf Urine WBC (0-5) /hpf Ur Epithelial Cells (0-5) /lpf Ur Renal Epithelial Cell (0-5) /lpf Urine Bacteria (Negative) Granular Casts (0) /lpf WBC Casts (0) /lpf Nasal Screen MRSA (PCR) Adenovirus (PCR) Not Detected (NotDetected) B. pertussis DNA (PCR) Not Detected (NotDetected) B.parapertussis DNA PCR Not Detected (NotDetected) C. pneumoniae DNA (PCR) Not Detected (NotDetected) Coronavirus OC43 (PCR) Not Detected (NotDetected) Coronavirus HKU1 (PCR) Not Detected (NotDetected) Coronavirus 229E (PCR) Not Detected (NotDetected) Coronavirus NL63 (PCR) Not Detected (NotDetected) Human Metapneumovir PCR Not Detected (NotDetected) Influenza Type A (PCR) Not Detected (Neg) Influenza Type B (PCR) Not Detected (Neg) M. pneumoniae (PCR) Not Detected (NotDetected) Parainfluenza 1 (PCR) Not Detected (NotDetected) Parainfluenza 2 (PCR) Not Detected (NotDetected) Parainfluenza 3 (PCR) Not Detected (NotDetected) Parainfluenza 4 (PCR) Not Detected (NotDetected) RSV (PCR) Not Detected (NotDetected) Entero/Rhino (PCR) Not Detected (NotDetected) 05/13/19 05/13/19 05/13/19 Range/Units 09:33 09:33 09:08 WBC 4.08 L (4.8-10.8) K/uL RBC 3.88 L (4.2-5.4) M/uL Hgb 10.6 L (12.0-16.0) g/dL POC Hgb (12.0-16.0) g/dl Hct 34.8 L (37-47) % POC Hct (37-47) % MCV 89.7 (80-100) fL MCH 27.3 (25-34) pg MCHC 30.5 L (32-36) g/dL RDW Std Deviation 57.9 H (36.4-46.3) fL RDW Coeff of Angelo 17.8 H (11.5-14.5) % Plt Count 225 (130-400) K/uL MPV 9.6 (7.4-10.4) fL Immature Gran % (Auto) 0.2 % Neut % (Auto) 75.0 % Lymph % (Auto) 20.6 % [place] % (Auto) 3.7 % Eos % (Auto) 0.5 % Baso % (Auto) 0.0 % Immature Gran # (Auto) 0.01 (0.00-0.02) K/uL Neut # (Auto) 3.06 (1.4-6.5) K/uL Lymph # (Auto) 0.84 L (1.2-3.4) K/uL [place] # (Auto) 0.15 (0.11-0.59) K/uL Eos # (Auto) 0.02 (0-0.5) K/uL Baso # (Auto) 0.00 (0-0.2) K/uL Absolute Nucleated RBC 0.02 H (0-0) K/uL Nucleated RBC % (auto) 0.6 % Toxic Vacuolation 1+ Dohle Bodies 1+ PT 12.1 H (9.0-12.0) Seconds INR 1.2 H (0.9-1.1) APTT 23.2 (21.0-31.0) Seconds PTT Ratio 0.8 Sample Site POC pH (7.35-7.45) POC pCO2 (35-46) mmHg POC pO2 (80-95) mmHg POC HCO3 (19-24) jillian/L POC Total CO2 (24-31) mmol/L POC Base Excess (-9-1.8) jillian/L ABG pH (Temp Correct) (7.35-7.45) ABG pCO2 (Temp Corrct (35-46) mmHg POC ABG pO2 at Pt Temp Ziyad Test VBG pH VBG pCO2 VBG pO2 VBG HCO3 VBG O2 Saturation VBG Base Excess Barometric Pressure O2 Delivery Device POC O2 Rate Minute Ventilation POC FiO2 % Tidal Volume PEEP POC Sodium (135-144) mmol/L Sodium (136-145) mmol/L POC Potassium (3.3-5.0) mmol/L Potassium (3.5-5.1) mmol/L Chloride (98-107) mmol/L Carbon Dioxide (21-32) mmol/L Anion Gap (3-11) BUN (7-18) mg/dl Creatinine (0.6-1.2) mg/dl Est Cr Clr Drug Dosing ml/min Est GFR ( Amer) Est GFR (Non-Af Amer) BUN/Creatinine Ratio (10-20) Glucose (70-99) mg/dl POC Glucose (other) (70-99) mg/dl Lactate 2.3 H* (0.4-2.0) mmol/L Calcium (8.5-10.1) mg/dl Magnesium (1.8-2.4) mg/dl Total Bilirubin (0.2-1) mg/dl AST (15-37) U/L ALT (12-78) U/L Alkaline Phosphatase (45-117) U/L Troponin I (0-0.045) ng/ml NT-Pro-B Natriuret Pep (0-900) pg/ml Total Protein (6.4-8.2) gm/dl Albumin (3.4-5.0) gm/dl Globulin (2.5-4.0) gm/dl Albumin/Globulin Ratio (0.9-2) Urine Color Urine Appearance (Clear) Urine pH (4.5-7.5) Ur Specific [place] (1.000-1.030) Urine Protein (Negative) Urine Glucose (UA) (Negative) Urine Ketones (Negative) Urine Blood (Negative) Urine Nitrite (Negative) Urine Bilirubin (Negative) Urine Urobilinogen (Negative) Ur Leukocyte Esterase (Negative) Urine WBC (Auto) (0-5) /hpf Urine RBC (Auto) (0-4) /hpf U Hyaline Cast (Auto) (0-5) /lpf U Epithel Cells (Auto) (0-5) /lpf Urine Bacteria (Auto) (Negative) Urine RBC (0-4) /hpf Urine WBC (0-5) /hpf Ur Epithelial Cells (0-5) /lpf Ur Renal Epithelial Cell (0-5) /lpf Urine Bacteria (Negative) Granular Casts (0) /lpf WBC Casts (0) /lpf Nasal Screen MRSA (PCR) Adenovirus (PCR) (NotDetected) B. pertussis DNA (PCR) (NotDetected) B.parapertussis DNA PCR (NotDetected) C. pneumoniae DNA (PCR) (NotDetected) Coronavirus OC43 (PCR) (NotDetected) Coronavirus HKU1 (PCR) (NotDetected) Coronavirus 229E (PCR) (NotDetected) Coronavirus NL63 (PCR) (NotDetected) Human Metapneumovir PCR (NotDetected) Influenza Type A (PCR) (Neg) Influenza Type B (PCR) (Neg) M. pneumoniae (PCR) (NotDetected) Parainfluenza 1 (PCR) (NotDetected) Parainfluenza 2 (PCR) (NotDetected) Parainfluenza 3 (PCR) (NotDetected) Parainfluenza 4 (PCR) (NotDetected) RSV (PCR) (NotDetected) Entero/Rhino (PCR) (NotDetected) 05/13/19 05/13/19 Range/Units 09:08 08:10 WBC (4.8-10.8) K/uL RBC (4.2-5.4) M/uL Hgb (12.0-16.0) g/dL POC Hgb (12.0-16.0) g/dl Hct (37-47) % POC Hct (37-47) % MCV (80-100) fL MCH (25-34) pg MCHC (32-36) g/dL RDW Std Deviation (36.4-46.3) fL RDW Coeff of Angelo (11.5-14.5) % Plt Count (130-400) K/uL MPV (7.4-10.4) fL Immature Gran % (Auto) % Neut % (Auto) % Lymph % (Auto) % [place] % (Auto) % Eos % (Auto) % Baso % (Auto) % Immature Gran # (Auto) (0.00-0.02) K/uL Neut # (Auto) (1.4-6.5) K/uL Lymph # (Auto) (1.2-3.4) K/uL [place] # (Auto) (0.11-0.59) K/uL Eos # (Auto) (0-0.5) K/uL Baso # (Auto) (0-0.2) K/uL Absolute Nucleated RBC (0-0) K/uL Nucleated RBC % (auto) % Toxic Vacuolation Dohle Bodies PT (9.0-12.0) Seconds INR (0.9-1.1) APTT (21.0-31.0) Seconds PTT Ratio Sample Site POC pH (7.35-7.45) POC pCO2 (35-46) mmHg POC pO2 (80-95) mmHg POC HCO3 (19-24) jillian/L POC Total CO2 (24-31) mmol/L POC Base Excess (-9-1.8) jillian/L ABG pH (Temp Correct) (7.35-7.45) ABG pCO2 (Temp Corrct (35-46) mmHg POC ABG pO2 at Pt Temp Ziyad Test VBG pH Cancelled VBG pCO2 Cancelled VBG pO2 Cancelled VBG HCO3 Cancelled VBG O2 Saturation Cancelled VBG Base Excess Cancelled Barometric Pressure Cancelled O2 Delivery Device POC O2 Rate Minute Ventilation POC FiO2 % Tidal Volume PEEP POC Sodium (135-144) mmol/L Sodium (136-145) mmol/L POC Potassium (3.3-5.0) mmol/L Potassium (3.5-5.1) mmol/L Chloride (98-107) mmol/L Carbon Dioxide (21-32) mmol/L Anion Gap (3-11) BUN (7-18) mg/dl Creatinine (0.6-1.2) mg/dl Est Cr Clr Drug Dosing ml/min Est GFR ( Amer) Est GFR (Non-Af Amer) BUN/Creatinine Ratio (10-20) Glucose (70-99) mg/dl POC Glucose (other) (70-99) mg/dl Lactate (0.4-2.0) mmol/L Calcium (8.5-10.1) mg/dl Magnesium (1.8-2.4) mg/dl Total Bilirubin (0.2-1) mg/dl AST (15-37) U/L ALT (12-78) U/L Alkaline Phosphatase (45-117) U/L Troponin I (0-0.045) ng/ml NT-Pro-B Natriuret Pep (0-900) pg/ml Total Protein (6.4-8.2) gm/dl Albumin (3.4-5.0) gm/dl Globulin (2.5-4.0) gm/dl Albumin/Globulin Ratio (0.9-2) Urine Color Urine Appearance (Clear) Urine pH (4.5-7.5) Ur Specific [place] (1.000-1.030) Urine Protein (Negative) Urine Glucose (UA) (Negative) Urine Ketones (Negative) Urine Blood (Negative) Urine Nitrite (Negative) Urine Bilirubin (Negative) Urine Urobilinogen (Negative) Ur Leukocyte Esterase (Negative) Urine WBC (Auto) (0-5) /hpf Urine RBC (Auto) (0-4) /hpf U Hyaline Cast (Auto) (0-5) /lpf U Epithel Cells (Auto) (0-5) /lpf Urine Bacteria (Auto) (Negative) Urine RBC (0-4) /hpf Urine WBC (0-5) /hpf Ur Epithelial Cells (0-5) /lpf Ur Renal Epithelial Cell (0-5) /lpf Urine Bacteria (Negative) Granular Casts (0) /lpf WBC Casts (0) /lpf Nasal Screen MRSA (PCR) Adenovirus (PCR) (NotDetected) B. pertussis DNA (PCR) (NotDetected) B.parapertussis DNA PCR (NotDetected) C. pneumoniae DNA (PCR) (NotDetected) Coronavirus OC43 (PCR) (NotDetected) Coronavirus HKU1 (PCR) (NotDetected) Coronavirus 229E (PCR) (NotDetected) Coronavirus NL63 (PCR) (NotDetected) Human Metapneumovir PCR (NotDetected) Influenza Type A (PCR) Neg for Influ A (Neg) Influenza Type B (PCR) Neg for Influ B (Neg) M. pneumoniae (PCR) (NotDetected) Parainfluenza 1 (PCR) (NotDetected) Parainfluenza 2 (PCR) (NotDetected) Parainfluenza 3 (PCR) (NotDetected) Parainfluenza 4 (PCR) (NotDetected) RSV (PCR) (NotDetected) Entero/Rhino (PCR) (NotDetected) Medications Administered Current Inpatient Medications Enoxaparin Sodium (Lovenox) 40 mg SQ Q24H ELFEGO Stop: 06/12/19 15:59 Last Admin: 05/13/19 15:13 Dose: 40 mg Documented by: Norepinephrine Bitartrate 8 mg (/ Dextrose) 508 mls @ 21.641 mls/hr IV .H32H86U ELFEGO; Protocol Stop: 06/12/19 09:44 Last Admin: 05/13/19 13:40 Dose: Not Given Documented by: Propofol (Diprivan) 1,000 mg in 100 mls @ 13.632 mls/hr IV .Q7H21M [facility]FEGO; Protocol Stop: 05/16/19 09:59 Last Titration: 05/13/19 19:03 Dose: 20 mcg/kg/min, 13.6 mls/hr Documented by: Parenteral Electrolytes (Normosol-R) 1,000 mls @ 100 mls/hr IV .Q10H [facility]FEGO Stop: 06/12/19 13:44 Last Infusion: 05/13/19 19:03 Dose: 100 mls/hr Documented by: Famotidine 20 mg/ Syringe 5 mls @ 2.5 mls/min IV Q12H [facility]FEGO Stop: 06/12/19 15:59 Last Admin: 05/13/19 15:13 Dose: 2.5 mls/min Documented by: Phenylephrine HCl 20 mg/ (Dextrose) 502 mls @ 171.082 mls/hr IV .Q2H57M [facility]; Protocol Stop: 06/12/19 13:44 Last Titration: 05/13/19 19:03 Dose: 1 mcg/kg/min, 171.1 mls/hr Documented by: Propofol (Diprivan Bolus From Bag) 20 mg IV Q5M PRN PRN Reason: Sedation Stop: 05/16/19 09:53 Last Admin: 05/13/19 11:28 Dose: 20 mg Documented by: Resident Activity Tracking Resident Involvement: Resident Care Provided Care Provided: Adult Hospital Medicine
[2019-05-13] MEDS ORDERED: ICU PROTOCOL FOR HYPERGLYCEMIA PRN (13:37)
[2019-05-13] MEDS ORDERED: MAGNESIUM SULFATE / D5W 1 GM/100 ML BAG IV ONE (13:37)
[2019-05-13] MEDS: PHENYLEPHRINE HCL 20 MG in DEXTROSE 5% 500 ML IV SCH ×5 (13:50→23:31)
[2019-05-13] MEDS: NORMOSOL-R 1,000 ML IV SCH ×2 (14:04→21:38)
[2019-05-13 15:00] LABS: Appearance Urine Cloudy (Clear); Bacteria Urine Automated Negative (Negative); Bilirubin Urine Negative (Negative); Blood Urine Negative (Negative); Color Urine Dark Yellow; Epithelial Cell Urine Auto >30 /lpf (0-5); Glucose Urine UA Negative (Negative); Ketones Urine Trace (Negative); Leukocyte Esterase Urine Negative (Negative); Nitrite Urine Negative (Negative); Protein Urine 2+ (Negative); Specific Gravity Urine 1.028 (1.000-1.030); Urobilinogen Urine Negative (Negative)
[2019-05-13] MEDS: FAMOTIDINE 20 MG in SYRINGE 3 ML IV SCH (15:13)
[2019-05-13 15:21] LABS: Renal Epithelial Cells Urine 0-5 /lpf (0-5)
[2019-05-13] MEDS ORDERED: ENOXAPARIN INJ 40 MG/0.4 ML SYR SQ SCH (16:00)
[2019-05-13 18:39] LABS: iSTAT Allen Test Pass; iSTAT Art Bld Gas pCO2 Correct 62 mmHg (35-46); iSTAT Art Bld Gas pH Corrected 7.225 (7.35-7.45); iSTAT Arterial Blood Gas HCO3 25 meg/L (19-24); iSTAT Arterial Blood Gas pCO2 58 mmHg (35-46); iSTAT Arterial Blood Gas pH 7.24 (7.35-7.45); iSTAT Arterial Blood Gas pO2 53 mmHg (80-95); iSTAT Arterial Blood Gas pO2 C 58; iSTAT Carbon Dioxide 27 mmol/L (24-31); iSTAT FiO2 60 %; iSTAT Hematocrit 31 % (37-47); iSTAT Hemoglobin 10.5 g/dl (12.0-16.0); iSTAT Potassium 4.2 mmol/L (3.3-5.0); iSTAT Site L Radial; iSTAT Sodium 134 mmol/L (135-144)
--- NOTE | 2019-05-13 18:43 | XRay Report ---
KUB CLINICAL HISTORY: Enteric tube placement. FINDINGS: An AP, portable, supine abdominal radiograph is compared to study dated 03/02/2016. An enteri c tube has been placed. The tip projects below the diaphragm over the distal stomach. There is no francesca dence of bowel obstruction. No evidence of intraperitoneal free air is seen on this supine examinatio n. Airspace consolidation and pleural fluid is noted at the right lung base. The imaged skeletal stru ctures are osteopenic and appear intact. IMPRESSION: An enteric tube has been placed as above. Electronically signed by: Navin Fletcher M.D. 05/13/2019 6:42 PM
[2019-05-13] MEDS ORDERED: fentaNYL citrate 100 MCG/2 ML VIAL ONE (19:09)
[2019-05-13] MEDS ORDERED: LACTATED RINGER'S 1,000 ML IV ONE (19:34)
--- NOTE | 2019-05-13 20:00 | Procedure Note ---
Procedure Note: Bronchoscopy Procedure Procedure date: May 13, 2019 Procedure: fiberoptic bronchoscopy Pre-procedure indication: Pulmonary infiltrate, acute respiratory distress syndrome, COVID-19 concern Post-procedure Diagnosis: same as above Prior to Procedure: Informed Consent: Emergent consent implied Attending Staff: Evaristo Giordano DO Resident/APC: Not applicable Skin Prep: Not applicable Anesthesia: Continuous infusion The identity of the patient was confirmed and a bedside time out was performed. Description of Procedure: Fiberoptic bronchoscopy was performed via endotracheal tube. Bronchioalveolar lavage right lower lobe was performed, with bronchial brushings. Findings included: Severe excessive dynamic airway collapse with obliteration of both the proximal and distal airways to include the mainstem bronchus. Clear thin secretions without any form of mucopurulence. Complications: None Specimens: Bronchial washings sent for culture and Gram stain, cytology, fungal elements, and AFB stain and culture, send out for COVID-19 ordered -Consults with [facility] anticipating call back for formalized testing at this time. Estimated blood loss: Zero
[2019-05-13] MEDS ORDERED: ACETAMINOPHEN 1,000 MG/100 ML VIAL IV STA (20:18)
[2019-05-13 20:46] LABS: Amphetamines+Metham, Urine Neg (Neg); Barbiturates, Urine Neg (Neg); Benzodiazepine, Urine Pos (Neg); Cocaine, Urine Neg (Neg); MDMA (Ecstacy), Urine Neg (Neg); Methadone, Urine Neg (Neg); Opiate, Urine Pos (Neg); Phencyclidine, Urine Pos (Neg)
[2019-05-13] MEDS ORDERED: CISATRACURIUM BESYLATE 40 MG in 0.9 % SODIUM CHLORIDE 80 ML IV SCH (23:30)
--- NOTE | 2019-05-14 00:25 | Procedure Note ---
Procedure Note Date of Service May 14, 2019 Note ARTERIAL LINE PROCEDURE NOTE: Procedure: Arterial Line Placement Attending: Dr. Tyrone Giordano Provider: KAUSHIK Cunha Indication: Monitoring on Pressors Anesthesia: None Consent implied as line was placed emergently for monitoring on pressors, frequent ABGs, blood draws A time-out was completed verifying correct patient, procedure, site, positioning, and implant(s) or special equipment if applicable. Allens test was performed to ensure adequate perfusion. Patients left wrist was prepped and draped in the usual sterile fashion. Ultrasound guidance was used to aid needle placement. A 20g Arrow arterial line was introduced into the left radial artery. Catheter was threaded, and the needle was removed with appropriate blood return. Good waveform was observed. The patient tolerated the procedure well. Confirmation of placement with ultrasound. Blood Loss: Minimal Complications: None Procedural Ultrasound Guidance: Procedure Date: 05/14/2019 Indication: Arterial line insertion Attending: Dr. Tyrone Giordano Provider: KAUSHIK Cunha Artery Identified: YES Line confirmed in Artery with ultrasound: Yes Complications: NONE Patient tolerated procedure: WELL Coding
[2019-05-14 00:26] LABS: iSTAT Art Bld Gas pCO2 Correct 77 mmHg (35-46); iSTAT Art Bld Gas pH Corrected 7.167 (7.35-7.45); iSTAT Arterial Blood Gas HCO3 27 meg/L (19-24); iSTAT Arterial Blood Gas pCO2 69 mmHg (35-46); iSTAT Arterial Blood Gas pO2 197 mmHg (80-95); iSTAT Arterial Blood Gas pO2 C 211; iSTAT Carbon Dioxide 29 mmol/L (24-31); iSTAT FiO2 100 %; iSTAT Hematocrit 33 % (37-47); iSTAT Hemoglobin 11.2 g/dl (12.0-16.0); iSTAT Potassium 4.7 mmol/L (3.3-5.0); iSTAT Site Art Line; iSTAT Sodium 135 mmol/L (135-144)
[2019-05-14] MEDS ORDERED: SODIUM BICARB 8.4% INJ 50 MEQ/50 ML SYR IV STA (01:54)
[2019-05-14] MEDS ORDERED: SODIUM BICARB 8.4% INJ 50 MEQ/50 ML SYR ONE ×2 (01:56→03:59)
[2019-05-14 01:57] LABS: iSTAT Allen Test Pass; iSTAT Art Bld Gas pCO2 Correct 93 mmHg (35-46); iSTAT Art Bld Gas pH Corrected 7.081 (7.35-7.45); iSTAT Arterial Blood Gas HCO3 27 meg/L (19-24); iSTAT Arterial Blood Gas pCO2 83 mmHg (35-46); iSTAT Arterial Blood Gas pH 7.12 (7.35-7.45); iSTAT Arterial Blood Gas pO2 71 mmHg (80-95); iSTAT Arterial Blood Gas pO2 C 86; iSTAT Carbon Dioxide 29 mmol/L (24-31); iSTAT FiO2 80 %; iSTAT Hematocrit 33 % (37-47); iSTAT Hemoglobin 11.2 g/dl (12.0-16.0); iSTAT Potassium 4.8 mmol/L (3.3-5.0); iSTAT Site R Radial; iSTAT Sodium 135 mmol/L (135-144)
[2019-05-14] MEDS: PHENYLEPHRINE HCL 20 MG in DEXTROSE 5% 500 ML IV SCH (02:12)
[2019-05-14] MEDS: propofoL 1,000 MG/100 ML VIAL IV SCH (02:25)
[2019-05-14] MEDS ORDERED: ALBUT/IPRATROP 3MG/0.5MG NEB 3 ML VIAL NEB SCH (03:00)
[2019-05-14] MEDS ORDERED: ACETAMINOPHEN 1,000 MG/100 ML VIAL IV STA (03:13)
[2019-05-14 03:20] LABS: iSTAT Allen Test Pass; iSTAT Art Bld Gas pCO2 Correct 67 mmHg (35-46); iSTAT Art Bld Gas pH Corrected 7.197 (7.35-7.45); iSTAT Arterial Blood Gas HCO3 25 meg/L (19-24); iSTAT Arterial Blood Gas pCO2 60 mmHg (35-46); iSTAT Arterial Blood Gas pH 7.23 (7.35-7.45); iSTAT Arterial Blood Gas pO2 71 mmHg (80-95); iSTAT Arterial Blood Gas pO2 C 84; iSTAT Carbon Dioxide 27 mmol/L (24-31); iSTAT FiO2 80 %; iSTAT Hematocrit 30 % (37-47); iSTAT Hemoglobin 10.2 g/dl (12.0-16.0); iSTAT Potassium 5.1 mmol/L (3.3-5.0); iSTAT Site R Radial; iSTAT Sodium 135 mmol/L (135-144)
[2019-05-14] MEDS: FAMOTIDINE 20 MG in SYRINGE 3 ML IV SCH (03:29)
--- NOTE | 2019-05-14 04:20 | Critical Care Progress Note ---
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 who presents with multilobar pneumonia and meets CDC criteria of PUI, unclear organism PLAN: Neuro: Neuromuscular blockade -This monitor goal 40 Resp: Acute respiratory distress syndrome Severe COPD Tracheomalacia: Severe acquired Refractory hypoxemia Multilobar pneumonia Possible COVID-19 -Bio fire and influenza negative, bronchoscopy specimen pending, no purulence seen on bronchoscopy -Regardless of pathogen given extent of illness requiring neuromuscular blockade and severe arts in the setting of severely diseased lungs I feel that this is an end-stage terminal condition without chance of meaningful recovery. -We have essentially reached maximum therapy in terms of hypoxemia as well as ventilatory capabilities and are metabolic acidosis is compounding the respiratory acidosis we are attempting to maintain for ARDSnet guidelines CV: Tachycardia -Secondary to fever/illness Fluids/Renal: Metabolic acidosis -Bicarb infusion ID: COVID-19 -Strict airborne precautions -Patient has coded 3 times, staff is wearing appropriate personal protective equipment. GI/Nutrition: N.p.o. Heme: Chronic anemia at baseline Leukopenia -Raises concern for COVID-19 DVT prophylaxis: Lovenox Endocrine: ICU hyperglycemia protocol Steroids given in ED, -Avoiding steroids given viral aspects which have been shown to worsen morbidity and mortality Vascular access: Femoral central venous access Code Status: Full Disposition: ICU I have been in contact with administration regarding allowing visitors to see this patient as I do believe she is in end-stage terminal condition without meaningful chance of recovery. After discussion with ANNEALING TORCH OPERATOR we will allow family to enter 2 at a time for appropriate gown and masks. Patient lives with 1 of 2 daughters, daughter she lives with has child and . Those 3 individuals would be considered close contacts, I discussed safety concerns for entire family and continue to self monitor as those 3 have reported to be asymptomatic. At this time the patient's daughter, Rony, is attempting to come to the bedside. Present on Admission?: No (2) ARDS (adult respiratory distress syndrome): Present on Admission?: Yes (3) Leukopenia: Present on Admission?: Yes (4) Asthma: Present on Admission?: Yes (5) Anemia: Present on Admission?: Yes (6) COPD (chronic obstructive pulmonary disease): Present on Admission?: Yes (7) Chronic respiratory failure with hypoxia, on home oxygen therapy: Present on Admission?: Yes (8) DM type 2 (diabetes mellitus, type 2): Present on Admission?: Yes (9) Pneumonia: Present on Admission?: Yes Supervising Physician Co-Signing Physician Notes Family arrived at bedside: 2 daughters. They were given full protective gear and were able to visit their mother at the bedside. After [place] protective gear we discussed the prognosis and wishes outside of the patient's room and comfort measures were initiated and discontinuation of life-sustaining treatm ents were stopped. We stopped the vasoactive medications, when the patient became pulseless she entered pulseless electrical activity and subsequently at 0540 in the morning. I updated the family, I again advised to continue social distancing and self-monitoring. Family will decide on a home, they reports she will be buried in the [place] area. At this time samples have been obtained for coven testing. Subjective Overnight events: Patient experienced bradycardia leading to cardiac arrest approximately 4 AM. Patient has had worsening profound refractory hypoxemia in the setting of severe ARDS, and COVID-19 rule out Review of Systems Review of Systems: Unobtainable due to endotracheal tube Physical Exam Physical Exam: General: GCS: 3TP. Skin: Cool, Head: Atraumatic Ears, obscured by endotracheal tube Cardiovascular: Prolonged capillary refill Respiratory: Coarse breath sounds bilaterally Gastrointestinal: Non distended Musculoskeletal: No deformity Results & Data ([facility]) Vital Signs (Past 12 Hours) Vital Signs Temp Pulse Resp BP Pulse Ox 05/14/19 03:11 133 H 52 H 94 05/14/19 03:09 39.5 C H 05/14/19 03:00 138 H 95 05/14/19 02:53 142 H 79/56 L 96 05/14/19 02:47 141 H 80/57 L 95 05/14/19 02:45 142 H 95 05/14/19 02:42 142 H 95 05/14/19 02:30 95 05/14/19 02:22 146 H 87/65 L 95 05/14/19 02:15 146 H 94 05/14/19 02:07 148 H 101/71 95 05/14/19 02:01 146 H 88 L 05/14/19 01:59 147 H 84/56 L 88 L 05/14/19 01:52 148 H 87/64 L 05/14/19 01:45 145 H 05/14/19 01:37 146 H 109/78 88 L 05/14/19 01:30 147 H 92 05/14/19 01:22 148 H 52 H 124/82 91 05/14/19 01:15 148 H 91 05/14/19 01:00 148 H 92 05/14/19 00:53 148 H 132/81 92 05/14/19 00:45 148 H 92 05/14/19 00:38 147 H 172/82 H 94 05/14/19 00:35 39.6 C H 05/14/19 00:30 145 H 96 05/14/19 00:23 144 H 167/82 H 97 05/14/19 00:15 146 H 100 05/14/19 00:08 146 H 120/78 100 05/14/19 00:00 144 H 100 05/13/19 23:52 145 H 130/81 100 05/13/19 23:45 143 H 100 05/13/19 23:37 142 H 117/73 98 05/13/19 23:30 141 H 98 05/13/19 23:22 141 H 119/66 89 L 05/13/19 23:14 132 H 123/70 93 05/13/19 23:10 136 H 25 H 74 L 05/13/19 23:08 129 H 118/69 05/13/19 22:45 133 H 100 05/13/19 22:37 133 H 109/62 100 05/13/19 22:36 133 H 105/60 100 05/13/19 22:30 134 H 100 05/13/19 22:22 135 H 105/60 100 05/13/19 22:15 135 H 100 05/13/19 22:07 134 H 101/63 99 05/13/19 22:00 132 H 100 05/13/19 21:52 135 H 93/61 L 98 05/13/19 21:45 136 H 97 05/13/19 21:37 137 H 106/60 94 05/13/19 21:30 136 H 92 05/13/19 21:22 132 H 138/72 94 05/13/19 21:15 131 H 97 05/13/19 21:07 131 H 141/79 H 97 05/13/19 21:00 130 H 97 05/13/19 20:52 131 H 118/77 95 05/13/19 20:45 132 H 93 05/13/19 20:40 132 H 25 H 94 05/13/19 20:37 131 H 103/69 94 05/13/19 20:30 131 H 95 05/13/19 20:22 129 H 131/85 96 05/13/19 20:15 130 H 93 05/13/19 20:07 130 H 141/78 H 94 05/13/19 20:00 129 H 93 05/13/19 19:53 130 H 121/74 05/13/19 19:45 130 H 94 05/13/19 19:37 130 H 101/61 98 05/13/19 19:34 130 H 112/59 L 96 05/13/19 19:30 129 H 97 05/13/19 19:24 128 H 84/68 L 100 05/13/19 19:16 127 H 96 05/13/19 19:14 115 H 98/73 L 96 05/13/19 19:04 128 H 112/61 93 05/13/19 19:00 127 H 97 05/13/19 18:35 126 H 25 H 97/50 L 92 05/13/19 18:24 126 H 22 96/62 L 92 05/13/19 18:17 125 H 22 99/76 L 90 05/13/19 18:04 124 H 22 106/65 95 05/13/19 18:01 125 H 22 107/71 92 05/13/19 18:00 125 H 23 93 05/13/19 17:54 125 H 27 H 88/53 L 96 05/13/19 17:44 123 H 23 80/57 L 96 05/13/19 17:34 122 H 24 100/58 L 95 05/13/19 17:28 123 H 24 91/61 L 95 05/13/19 17:14 123 H 22 97/59 L 93 05/13/19 17:04 124 H 22 79/63 L 93 05/13/19 16:55 124 H 22 85/64 L 93 05/13/19 16:44 124 H 24 86/58 L 94 05/13/19 16:34 125 H 24 106/69 95 05/13/19 16:24 126 H 22 73/59 L 96 Coding Level of Care Code Critical Care ea addt'l 30 min Diagnoses Cardiac arrest I46.9 ARDS (adult respiratory distress syndrome) J80 Leukopenia D72.810 Leukopenia type: lymphocytopenia Asthma J45.901 Asthma complication type: with acute exacerbation Asthma persistence: unspecified Asthma severity: severe Anemia D64.9 Anemia type: unspecified type COPD (chronic obstructive pulmonary disease) J44.0 COPD type: COPD with acute lower respiratory infection Chronic respiratory failure with hypoxia, on home oxygen therapy J96.11; Z99.81 DM type 2 (diabetes mellitus, type 2) E11.9 Diabetes mellitus shelter insulin use: unspecified rodent exterminator insulin use status Pneumonia J18.9 Laterality: bilateral Lung location: lower lobe of lung Pneumonia type: due to unspecified organism Time Spent (min) 120 Comment I have personally spent 120 minutes of critical care time in the direct management of this patient. This is a life/limb threatening event. This includes time spent evaluating patient, direct bedside care, chart review, placing orders, interpretation of diagnostic studies, discussion with consultants, patient, and/or family members regarding treatment decisions, as well as other required patient management activities. This time is exclusive of all separately billable procedures, and teaching time and separate from and in addition to any other critical care service time. (1) DM type 2 (diabetes mellitus, type 2) Diabetes mellitus shelter insulin use: unspecified rodent exterminator insulin use status (2) Anemia Anemia type: unspecified type Qualified Code(s): D64.9 - Anemia, unspecified (3) Leukopenia Leukopenia type: lymphocytopenia Qualified Code(s): D72.810 - Lymphocytopenia (4) COPD (chronic obstructive pulmonary disease) COPD type: COPD with acute lower respiratory infection Qualified Code(s): J44.0 - Chronic obstructive pulmonary disease with (acute) lower respiratory infection (5) Pneumonia Laterality: bilateral Lung location: lower lobe of lung Pneumonia type: due to unspecified organism Qualified Code(s): J18.9 - Pneumonia, unspecified organism (6) Asthma Asthma complication type: with acute exacerbation Asthma persistence: unspecified Asthma severity: severe Qualified Code(s): J45.901 - Unspecified asthma with (acute) exacerbation
[2019-05-14] MEDS ORDERED: STAT IV Infusion **Titration per Protocol STA (04:27)
[2019-05-14] MEDS ORDERED: EPINEPHrine 2 MG in DEXTROSE 5% 250 ML IV STA (04:27)
[2019-05-14] MEDS ORDERED: EPINEPHrine 4 MG in DEXTROSE 5% HYPOTENSION IV SCH (04:30)
[2019-05-14] MEDS ORDERED: SODIUM BICARBONATE 8.4% 150 MEQ in DEXTROSE 5% 1,000 ML IV SCH ×2 (04:30→04:45)
[2019-05-14 04:46] LABS: BUN Creatinine Ratio 11.5 (10-20); Calcium 7.3 mg/dl (8.5-10.1); Creatinine Clr Calc Pharmacy 32.2 ml/min; Est GFR (Non-African American) 24.1; Magnesium 2.4 mg/dl (1.8-2.4); Phosphorus 5.1 mg/dl (2.5-4.9); Potassium 4.9 mmol/L (3.5-5.1)
[2019-05-14 04:52] LABS: Hematocrit (blood only) 34.6 % (37-47); Mean Corpuscular Hemoglobin 26.5 pg (25-34); Mean Corpuscular Hgb Conc 28.9 g/dL (32-36); Mean Corpuscular Volume 91.5 fL (80-100); Mean Platelet Volume 10.1 fL (7.4-10.4); Nucleated RBC # (auto) 0.23 K/uL (0-0); Nucleated RBC % (auto) 4.4 %; Platelet Count 257 K/uL (130-400); RDW Coefficient of Variation 18.4 % (11.5-14.5); Red Blood Count 3.78 M/uL (4.2-5.4); White Blood Count 5.09 K/uL (4.8-10.8)
--- NOTE | 2019-05-14 04:56 | Procedure Note ---
Procedure Note Date of Service May 14, 2019 Procedure date: Noted above Procedure: Cardiopulmonary resuscitation Pre-procedure Diagnosis: CODE BLUE, cardiac arrest Post-procedure Diagnosis: same as above Prior to Procedure: Informed Consent: Emergent Attending Staff: Evaristo Giordano DO Please refer to nursing code flowsheet for further details Description of Procedure: ACS protocols were followed for a pulseless electrical activity. Complications: Patient would temporarily regain ROSC following CPR and ACLS meds. However, she continued to have cardiac arrest 3 different times over a short period (see code sheets). Family was called to the bedside and upon further discussion of the patient's course was made comfort care/DNR. Patient experienced cardiac arrest again and was pronounced at 0540, 05/14/2019. See pronouncement note for details. Coding CPT Codes Resuscitation - Resuscitation: 36789 Heart/lung resuscitation CPR ([id number]) [facility] [place], [place] Procedure Codes (Charges) Resuscitation Resuscitation: 51404 Heart/lung resuscitation CPR
[2019-05-14 05:02] LABS: ALC (manual) 2.45 K/uL (1.2-3.4); ANC (manual) 2.15 K/uL (1.4-6.5); Basophilic Stippling Occasional; Dohle Bodies 1+; Echinocytes 1+; Giant Platelets 1+; Large Granular Lymph # (manua 1.92 K/uL; Large Granular Lymph % (manual) 37.7 %; Lymphocytes # (manual) 0.53 K/uL (1.2-3.4); Lymphocytes % (manual) 10.5 %; Monocytes # (manual) 0.49 K/uL (0.11-0.59); Monocytes % (manual) 9.6 %; Neutrophils # (manual) 2.15 K/uL (1.4-6.5); Neutrophils % (manual) 42.2 %; Toxic Vacuolation 1+
[2019-05-14] MEDS ORDERED: MoRPHine SULFATE 4 MG/ML 1 ML CARP\\VIAL ONE (05:12)
[2019-05-14] MEDS ORDERED: fentaNYL citrate 100 MCG/2 ML VIAL ONE (05:12)
[2019-05-14 05:18] LABS: iSTAT Art Bld Gas pCO2 Correct 96 mmHg (35-46); iSTAT Arterial Blood Gas HCO3 27 meg/L (19-24); iSTAT Arterial Blood Gas pCO2 96 mmHg (35-46); iSTAT Arterial Blood Gas pH 7.06 (7.35-7.45); iSTAT Arterial Blood Gas pO2 < 32 mmHg (80-95); iSTAT Arterial Blood Gas pO2 C 18; iSTAT Carbon Dioxide 30 mmol/L (24-31); iSTAT Hematocrit 39 % (37-47); iSTAT Hemoglobin 13.3 g/dl (12.0-16.0); iSTAT Potassium 4.3 mmol/L (3.3-5.0); iSTAT Site R Femoral; iSTAT Sodium 140 mmol/L (135-144)
[2019-05-14] MEDS: fentaNYL citrate 100 MCG/2 ML VIAL IV STA ×2 (05:35→05:40)
[2019-05-14] MEDS: MoRPHine SULFATE 4 MG/ML 1 ML CARP\\VIAL IV STA ×2 (05:35→05:40)
--- NOTE | 2019-05-14 05:55 | Electrocardiogram Report ---
Test Reason : Blood Pressure : / mmHG Vent. Rate : 150 BPM Atrial Rate : 000 BPM P-R Int : 000 ms QRS Dur : 076 ms QT Int : 356 ms P-R-T Axes : 000 063 074 degrees QTc Int : 562 ms Poor data quality, interpretation may be adversely affected Possible Sinus tachycardia Significant artifact interferes with interpretation Abnormal ECG When compared with ECG of 09-APR-2019 16:22, Significant artifact is now present Confirmed by Rafael Charles ([id number]) on 05/14/2019 5:55:20 AM Referred By: REFERRED SELF Confirmed By:Rafael Charles
--- NOTE | 2019-05-14 06:02 | Electrocardiogram Report ---
Test Reason : Blood Pressure : / mmHG Vent. Rate : 169 BPM Atrial Rate : 169 BPM P-R Int : 128 ms QRS Dur : 074 ms QT Int : 282 ms P-R-T Axes : 103 047 073 degrees QTc Int : 472 ms Sinus tachycardia Cannot rule out Anterior infarct (cited on or before 09-APR-2019) Abnormal ECG When compared with ECG of 13-MAY-2019 08:01, Artifact is no longer present Confirmed by Rafael Charles ([id number]) on 05/14/2019 6:02:06 AM Referred By: REFERRED SELF Confirmed By:Rafael Charles
--- NOTE | 2019-05-14 06:14 | Death Pronouncement Note ---
Date of Service May 14, 2019 Pronouncement Note Admission Date Admission Date: May 13, 2019 Date and Time of Date of : 05/14/19 Time of : 05:40 PCOD Preliminary cause of : Acute respiratory distress syndrome (ARDS) Contributing Factors (1) Acute on chronic respiratory failure with hypoxia and hypercapnia: (2) Pneumonia: (3) Acute viral syndrome: (4) Cardiac arrest: (5) Leukopenia: (6) Asthma: (7) Anemia: (8) COPD (chronic obstructive pulmonary disease): (9) Chronic respiratory failure with hypoxia, on home oxygen therapy: (10) DM type 2 (diabetes mellitus, type 2): (11) Tracheomalacia, acquired: (12) Septic shock: Hospital Course Hospital Course: Patient is a 63-year-old female with chronic respiratory failure with hypoxia on home oxygen therapy who was recently admitted 1 month ago for respiratory failure, COPD exacerbation, pneumonia with exacerbation secondary to left lower lobe pneumonia. Patient presented to the emergency department with bilateral infiltrates, fever, respiratory distress and hypoxia and was intubated in the emergency department. She was transferred to the ICU and had progressive worsening of her hypoxia entering acute respiratory distress syndrome. Patient suffered 3 episodes of pulseless electrical activity/cardiac arrests which required heroic resuscitative efforts which were not sustained significantly. Ultimately the patient required supratherapeutic levels of vasoactive medication allowing her family time to present to the bedside. At that time family elected to discontinue life-sustaining treatments. Patient at 0540. Summary Additional details: Preliminary cause of : 1) acute respiratory distress syndrome 2) acute on chronic hypercapnic and hypoxic respiratory failure 3) multilobar pneumonia 4) acute viral syndrome Contributing factors: Chronic respiratory failure with hypoxia on home oxygen Severe tracheomalacia Cardiac arrest secondary to acute metabolic acidosis Asthma Anemia Leukopenia Diabetes type 2 Hypertension Morbid obesity: BMI 43 Additional Data Confirmation of : no pulse, no respirations, no heart sounds and pupils fixed and dilated Family: at bedside Attending/PCP notified?: Yes Attending physician: Isabella Dyer MD Was code activated?: Yes Autopsy requested?: No line up examiner notified?: Yes Organ bank notified?: Yes Advance directives: No Coding Level of Care Code None Diagnoses Acute on chronic respiratory failure with hypoxia and hypercapnia J96.21; J96.22 Pneumonia J18.9 Pneumonia type: due to unspecified organism Laterality: bilateral Lung location: lower lobe of lung Acute viral syndrome B34.9 Cardiac arrest I46.9 Leukopenia D72.810 Leukopenia type: lymphocytopenia Asthma J45.901 Asthma severity: severe Asthma persistence: unspecified Asthma complication type: with acute exacerbation Anemia D64.9 Anemia type: unspecified type COPD (chronic obstructive pulmonary disease) J44.0 COPD type: COPD with acute lower respiratory infection Chronic respiratory failure with hypoxia, on home oxygen therapy J96.11; Z99.81 DM type 2 (diabetes mellitus, type 2) E11.9 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
[2019-05-14] MEDS ORDERED: SODIUM BICARB 8.4% INJ 50 MEQ/50 ML SYR IV ONE (07:04)
[2019-05-14] MEDS ORDERED: SODIUM CHLORIDE 0.9% 10ML FLUSH IV ONE (07:04)
[2019-05-14 09:32] LABS: iSTAT Sample Type Venous
--- NOTE | 2019-05-16 00:12 | Discharge Summary ---
Date of Service May 14, 2019 Admission HPI Per Admitting Provider 63 year old female who presents to the ED for evaluation of shortness of breath. Patient recently admitted to [facility] 04/09 - 04/18 for respiratory failure due to COPD exacerbation and pneumonia. Patient was discharged on doxycycline and prednisone taper. Patient is followed by [facility]. Symptoms were not improving therefore antibiotic course was extended and patient was receiving IM Solu-Medrol at home. Patient has severe shortness of breath this morning and EMS was called and patient was brought to the ED for further evaluation. History is currently unobtainable from the patient as she is intubated and sedated. Upon arrival to the ER, patient was placed on CPAP however respiratory status deteriorated and she required intubation. She also became hypotensive and was placed on Levophed drip. CXR shows diffuse parenchymal infiltrate right hemithorax. Influenza testing is negative, bio fire respiratory panel negative as well. Patient also received nebulizer treatment, IV ceftriaxone, IV levofl oxacin, IV Solu-Medrol, IVF. Admission Exam Per Admitting Provider Constitutional: WD/WN, vitals as above Intubated, sedated Eyes: PERRL, conjunctivae normal, anicteric sclerae ENMT: external ear and nose normal, oropharynx normal Respiratory: normal respiratory effort; no respiratory distress Auscultation: + diminished lung sounds Cardiovascular: regular rhythm and + tachycardic Vessels: normal peripheral pulses Extremities: + edema (+1 edema BLE) Gastrointestinal: normal bowel sounds, soft, nontender, no hepatosplenomegaly Musculoskeletal: Extremities: no cyanosis and no clubbing Strength unable to be tested due to sedation Skin: no rashes, warm and dry Neurologic: Sedated Psychiatric: Sedated Principal Diagnosis (1) Acute on chronic respiratory failure with hypoxia and hypercapnia: (2) Pneumonia: (3) Acute viral syndrome: (4) Cardiac arrest: (5) Leukopenia: (6) Asthma: (7) Anemia: (8) COPD (chronic obstructive pulmonary disease): (9) Chronic respiratory failure with hypoxia, on home oxygen therapy: (10) DM type 2 (diabetes mellitus, type 2): (11) Tracheomalacia, acquired: (12) Septic shock: Discharge Exam No pulse, no respirations, no heart sounds and pupils fixed and dilated Discharge Data Allergies Allergy/AdvReac Type Severity Reaction Status Date / Time vancomycin Allergy Mild Verified 05/13/19 08:31 No Known Drug Allergies Allergy Unknown n/a Verified 05/13/19 08:31 pollen extracts Allergy Unknown SNEEZE,COUG Verified 05/13/19 08:31 H-WEEDS,GRA SS,POLLEN Consultations 05/13/19 09:01 ED Decision to Admit Stat 05/13/19 13:37 Consult Case Management - Discharge Planning Routine Consult Career Specialist Routine XR chest 1V portable CLINICAL HISTORY: Dyspnea dyspnea COMPARISON STUDY: 04/13/2019 FINDINGS: Interval diffuse parenchymal infiltrate of the right hemithorax. The left hemithorax remain generally clear. Diaphragms are smooth. IMPRESSION: Diffuse parenchymal infiltrate right hemithorax. ACT 112: Negative or not required by law. The above report was generated using voice recognition software. It may contain grammatical, syntax or spelling errors. Electronically signed by: Fuentes Lewis M.D. 05/13/2019 8:22 AM Dictated: 05/13/1921 Transcribed: 05/13/1921 XR chest 1V portable CLINICAL HISTORY: ett tube position COMPARISON STUDY: Endotracheal tube 3 cm above the romina. Findings a mildly progressive right hemithoracic parenchymal infiltrative change with minimal changes left base. FINDINGS: The bones soft tissues and hemidiaphragms are normal. The cardiomediastinal silhouette is normal. The lungs are clear. The pulmonary vasculature is normal. IMPRESSION: Endotracheal tube positioned 3 cm above the romina. Mildly progressive right hemithoracic parenchymal infiltrates ACT 112: Negative or not required by law. The above report was generated using voice recognition software. It may contain grammatical, syntax or spelling errors. Electronically signed by: Fuentes Lewis M.D. 05/13/2019 10:05 AM Dictated: 05/13/19 1004 Transcribed: 05/13/19 1004 XR chest 1V portable CLINICAL HISTORY: hypoxic dyspnea COMPARISON STUDY: 05/13/2019 9:51 AM FINDINGS: Slight increasing consolidative changes of the right mid to lower lung. Slightly progressive left basilar infiltrative change. Endotracheal tube remains 3 cm above the romina. IMPRESSION: Progressive consolidative change right mid to lower lung. Mildly progressive infiltrative changes left base. Endotracheal tube 3 cm above the romina. ACT 112: Negative or not required by law. The above report was generated using voice recognition software. It may contain grammatical, syntax or spelling errors. Electronically signed by: Fuentes Lewis M.D. 05/13/2019 12:35 PM Dictated: 05/13/19 1235 Transcribed: 05/13/19 1235 [place] CLINICAL HISTORY: Enteric tube placement. FINDINGS: An AP, portable, supine abdominal radiograph is compared to study dated 03/02/2016. An enteric tube has been placed. The tip projects below the diaphragm over the distal stomach. There is no evidence of bowel obstruction. No evidence of intraperitoneal free air is seen on this supine examination. Airspace consolidation and pleural fluid is noted at the right lung base. The imaged skeletal structures are osteopenic and appear intact. IMPRESSION: An enteric tube has been placed as above. Electronically signed by: Navin Fletcher M.D. 05/13/2019 6:42 PM Dictated: 05/13/191840 Transcribed: 05/13/191840 Hospital Course (1) Septic shock: (2) Acute on chronic respiratory failure with hypoxia: (3) Pneumonia: (4) COPD (chronic obstructive pulmonary disease): -Admit to ICU -Patient presenting from home via EMS in respiratory distress, requiring intubation in the ED -On presentation: tachycardic, hypotensive (requiring Levophed infusion), lactic acid 2.3 -CXR showing diffuse parenchymal infiltrate right hemithorax -Influenza and bio fire panel testing negative -CT chest to be obtained -S/P levofloxacin, ceftriaxone, Solu-Medrol in the ED -Follow blood cultures, trend lactic acid -Further management as per ICU Hospital course Hospital Course: Patient is a 63-year-old female with chronic respiratory failure with hypoxia on home oxygen therapy who was recently admitted 1 month ago for respiratory failure, COPD exacerbation, pneumonia with exacerbation secondary to left lower lobe pneumonia. Patient presented to the emergency department with bilateral infiltrates, fever, respiratory distress and hypoxia and was intubated in the emergency department. She was transferred to the ICU and had progressive worsening of her hypoxia entering acute respiratory distress syndrome. Patient suffered 3 episodes of pulseless electrical activity/cardiac arrests which required heroic resuscitative efforts which were not sustained significantly. Ultimately the patient required supratherapeutic levels of vasoactive medication allowing her family time to present to the bedside. At that time family elected to discontinue life-sustaining treatments. Patient at 0540. Summary Additional details: Preliminary cause of : 1) acute respiratory distress syndrome 2) acute on chronic hypercapnic and hypoxic respiratory failure 3) multilobar pneumonia 4) acute viral syndrome (5) DM type 2 (diabetes mellitus, type 2): -Hgb A1c 7.0 04/11/2019 -Diabetic protocol as per ICU (6) Hypertension: -Hypotensive on presentation, requiring Levophed -Holding home antihypertensive agents including amlodipine and lisinopril (7) GERD (gastroesophageal reflux disease): -IV famotidine every 12 hours for GI prophylaxis (8) Hyperlipidemia: -Resume statin when taking p.o. (9) Restless leg syndrome: -Resume pramipexole when taking p.o. (10) DVT prophylaxis: -SQ Lovenox Total Time Total Time Spent Total Time Spent (In Minutes): 10 minutes Discharge Plan Discharge Items Patient Disposition: Reason For Visit: RESP FAILURE Follow-up/Referrals: Martina Jay MD [Primary Care Provider] - Admission Data Admit Date/Time: 05/13/19 09:35 Other DC Date/Time DO NOT enter until pt leaves facility: 05/14/19 07:05
[2019-05-16 10:35] LABS: 7-Aminoclonaz, Confirm NEGATIVE ng/mL (<25); Codeine Urine NEGATIVE ng/mL (<50); Hydro-Alp Ur, GC/MS NEGATIVE ng/mL (<25); Hydrocodone Urine NEGATIVE ng/mL (<50); Hydromor Urine NEGATIVE ng/mL (<50); Hydroxyethylflurazepam, Conf NEGATIVE ng/mL (<50); Hydroxymidazolam Ur, GC/MS >2000 ng/mL (<50); Hydroxytriazolam NEGATIVE ng/mL (<50); Lorazepam, Ur GC/MS 135 ng/mL (<50); Morphine Urine NEGATIVE ng/mL (<50); Nordiazepam, Confirm NEGATIVE ng/mL (<50); Norhydrocodone Conf Ur NEGATIVE ng/mL (<50); Noroxycodone Urine NEGATIVE ng/mL (<50); Oxazepam Ur, GC/MS NEGATIVE ng/mL (<50); Oxycodone Urine NEGATIVE ng/mL (<50); Oxymorph Urine NEGATIVE ng/mL (<50); Temazepam, Confirm NEGATIVE ng/mL (<50)
== END 2019-05-14 07:05 | disposition expired | DRG 871 ==
LOC: ED 07:53 → 1E 09:35